=== PATIENT | male | born 1955 | race Caucasian/White ===

== ENCOUNTER 2016-09-04 18:10 | Emergency (ER) | payer OTHER ==
[~2016-09-04] VITALS: Ht 182.9 cm; Wt 75.0 kg
[~2016-09-04 18:10] MED LIST: ACET325 PO; CALCCHW25 PO; LACT20SO4 PO; LEVE500T10 PO; RIFA550 PO; SERT100 PO; TRAZ100 PO
--- NOTE | 2016-09-04 18:21 | PD ---
HPI Chief Complaint: seizure Time Seen by Provider: 18:16 Travel History International Travel<30 days: No Contact w/Intl Traveler<30days: No Traveled to known affect area: No History of Present Illness HPI 61-year-old male was brought in by EMS for seizure. Patient has history of seizure on Keppra. Patient resides at local group home. [facility] staff observed patient having jerking motions this afternoon. Patient was brought by EMS to the ED for evaluation. Patient's lethargic. Patient's noncommunicable now. PFSH Past Medical History Arthritis: No Asthma: No Autoimmune Disease: No Blood Disorders: No Bipolar Disorder: Yes Anxiety: Yes Depression: Yes Heart Rhythm Problems: Yes (HX OF PAROXYSMAL VENTRICULAR TACHYCARDIA) Cancer: No Cardiovascular Problems: Yes High Cholesterol: Yes Chemotherapy: No Chest Pain: Yes Congestive Heart Failure: No Cirrhosis: Yes COPD: Yes Cerebrovascular Accident: No Dementia: Yes Diabetes: No Diminished Hearing: Yes (BILATERAL) Endocrine: No Gastrointestinal Disorders: Yes (CHRONIC PANCREATITIS, CIRRHOSIS) GERD: No Glaucoma: No Gout: Yes Genitourinary: No Headaches: No Hepatitis: Yes (HEP C AND B) Hiatal Hernia: No Hypertension: Yes Immune Disorder: No Insomnia: Yes Kidney Stones: No Musculoskeletal: Yes (per hx..CHRONIC LOW BACK PAIN) Neurologic: Yes Psychiatric: Yes (previous visit at [facility] [place]) Reproductive: No Respiratory: Yes Immunizations Current: Yes Migraines: No Myocardial Infarction: No Pancreatitis: Yes Radiation Therapy: No Renal Failure: No Seizures: Yes Sickle Cell Disease: No Sleep Apnea: No Thyroid Disease: No Ulcer: No Past Surgical History Abdominal Surgery: Yes AICD: No Appendectomy: Yes Arteriovenous Shunt: No Cardiac Surgery: No Cholecystectomy: Yes (DENIES) Ear Surgery: No Endocrine Surgery: No Eye Surgery: No Genitourinary Surgery: No Gynecologic Surgery: No Insulin Pump: No Joint Replacement: No Neurologic Surgery: No Oral Surgery: No Pacemaker: No Thoracic Surgery: No Tonsillectomy: Yes Other Surgery: Yes (RIGHT LOWER ABDOMEN) Social History Alcohol Use: No Tobacco Use: No Substance Use: No Allergies-Medications (Allergen,Severity, Reaction): Coded Allergies: No Known Allergies (Verified , 09/04/16) Per patient. Reported Meds & Prescriptions Reported Meds & Active Scripts Active Reported Duoneb (Ipratropium-Albuterol Neb) 0.5-2.5 Mg/3 Ml Neb 1 Nebule INH QID PRN Divalproex ER (Divalproex Sodium) 250 Mg Bassam 500 Mg PO HS Trazodone (Trazodone HCl) 100 Mg Tab 250 Mg PO HS Seroquel (Quetiapine Fumarate) 50 Mg Tab 75 Mg PO BID Keppra (Levetiracetam) 750 Mg Tab 750 Mg PO BID Calcium + D3 (Calcium Carbonate-Cholecalciferol) 600-200 Mg-Unit Tab 1 Tab PO BID Vitamin B-1 (Thiamine Mononitrate) 100 Mg Tab Zoloft (Sertraline HCl) 100 Mg Tab 200 Mg PO DAILY Ventolin Hfa 18 GM Inh (Albuterol Sulfate) 90 Mcg/Act Aer 2 Puff INH Q4-6H PRN Nasal Mist Inh (Sodium Chloride) 0.9 % Aer 1 [place] EACH NARE Q4H PRN Mobic (Meloxicam) 15 Mg Tab 15 Mg PO DAILY Hydroxyzine HCl 25 Mg Tab 25 Mg PO QID PRN Adams Cough Drops (Throat Lozenges) 1 Len[place] Leni 1 Lozenge PO Q2H PRN Tylenol (Acetaminophen) 325 Mg Cap 325 Mg PO BID PRN Review of Systems ROS Limitations: Altered Mental Status Physical Exam Narrative GENERAL: Well-nourished, well-developed patient. SKIN: Warm and dry. HEAD: Normocephalic. EYES: No scleral icterus. No injection or drainage. NECK: Supple, trachea midline. No JVD or lymphadenopathy. CARDIOVASCULAR: Regular rate and rhythm without murmurs, gallops, or rubs. RESPIRATORY: Breath sounds equal bilaterally. No accessory muscle use. GASTROINTESTINAL: Abdomen soft, non-tender, nondistended. MUSCULOSKELETAL: No cyanosis, or edema. BACK: Nontender without obvious deformity. No CVA tenderness. Neurologic exam: Patient is lethargic, opening eyes occasionally looking around. Patient does not follow commands. Deep tendon reflexes 2+ and equal. Negative Babinski. Data Data Last Documented VS Vital Signs Date Time Temp Pulse Resp B/P Pulse Ox O2 Delivery O2 Flow Rate FiO2 09/04/16 19:31 75 18 143/92 93 Room Air 09/04/16 18:26 99.9 Orders Electrocardiogram (09/04/16 18:16) Complete Blood Count With Diff (09/04/16 18:16) Comprehensive Metabolic Panel (09/04/16 18:16) Creatine Kinase (Cpk) (09/04/16 18:16) Troponin I (09/04/16 18:16) Prothrombin Time / Inr (Pt) (09/04/16 18:16) Act Partial Throm Time (Ptt) (09/04/16 18:16) Blood Culture (09/04/16 18:16) Urinalysis - C+S If Indicated (09/04/16 18:16) Alcohol (Ethanol) (09/04/16 18:16) Drug Screen, Random Urine (09/04/16 18:16) Salicylates (Aspirin) (09/04/16 18:16) Tylenol (Acetaminophen) (09/04/16 18:16) Thyroid Stimulating Hormone (09/04/16 18:16) Chest, Single Ap (09/04/16 18:16) Ct Brain W/O Iv Contrast(Rout) (09/04/16 18:16) Iv Access Insert/Monitor (09/04/16 18:16) Ecg Monitoring (09/04/16 18:16) Oximetry (09/04/16 18:16) Sodium Chlor 0.9% 1000 Ml Inj (Ns 1000 M (09/04/16 18:45) Valproic Acid (Depakene) (09/04/16 20:51) Divalproex Er (Depakote Er) (09/04/16 22:00) Labs Laboratory Tests Test 09/04/16 09/04/16 18:42 19:30 White Blood Count 8.2 TH/MM3 Red Blood Count 5.00 MIL/MM3 Hemoglobin 14.5 GM/DL Hematocrit 42.0 % Mean Corpuscular Volume 84.0 FL Mean Corpuscular Hemoglobin 29.1 PG Mean Corpuscular Hemoglobin 34.7 % Concent Red Cell Distribution Width 13.1 % Platelet Count 185 TH/MM3 Mean Platelet Volume 8.5 FL Neutrophils (%) (Auto) 81.3 % Lymphocytes (%) (Auto) 14.7 % Monocytes (%) (Auto) 3.9 % Eosinophils (%) (Auto) 0.0 % Basophils (%) (Auto) 0.1 % Neutrophils # (Auto) 6.7 TH/MM3 Lymphocytes # (Auto) 1.2 TH/MM3 Monocytes # (Auto) 0.3 TH/MM3 Eosinophils # (Auto) 0.0 TH/MM3 Basophils # (Auto) 0.0 TH/MM3 CBC Comment DIFF FINAL Differential Comment Prothrombin Time 11.7 SEC Prothromb Time International 1.1 RATIO Ratio Activated Partial 24.0 SEC Thromboplast Time Sodium Level 139 MEQ/L Potassium Level 3.6 MEQ/L Chloride Level 103 MEQ/L Carbon Dioxide Level 24.0 MEQ/L Anion Gap 12 MEQ/L Blood Urea Nitrogen 10 MG/DL Creatinine 1.14 MG/DL Estimat Glomerular Filtration 65 ML/MIN Rate Random Glucose 115 MG/DL Calcium Level 9.1 MG/DL Total Bilirubin 0.4 MG/DL Aspartate Amino Transf 25 U/L (AST/SGOT) Alanine Aminotransferase 21 U/L (ALT/SGPT) Alkaline Phosphatase 75 U/L Total Creatine Kinase 100 U/L Troponin I LESS THAN 0.02 NG/ML Total Protein 9.5 GM/DL Albumin 3.9 GM/DL Thyroid Stimulating Hormone 3.340 uIU/ML 3rd Gen Salicylates Level 3.6 MG/DL Acetaminophen Level LESS THAN 2.0 MCG/ML Valproic Acid (Depakene) Level 18 MCG/ML Ethyl Alcohol Level LESS THAN 3 MG/DL Urine Color YELLOW Urine Turbidity CLEAR Urine pH 8.0 Urine Specific [place] 1.015 Urine Protein TRACE mg/dL Urine Glucose (UA) NEG mg/dL Urine Ketones 10 mg/dL Urine Occult Blood NEG Urine Nitrite NEG Urine Bilirubin NEG Urine Urobilinogen LESS THAN 2.0 MG/DL Urine Leukocyte Esterase NEG Urine WBC 1 /hpf Urine Squamous Epithelial 1 /hpf Cells Urine Hyaline Casts 1 /lpf Microscopic Urinalysis Comment CULT NOT INDICATED Urine Opiates Screen NEG Urine Barbiturates Screen NEG Urine Amphetamines Screen NEG Urine Benzodiazepines Screen NEG Urine Cocaine Screen NEG Urine Cannabinoids Screen NEG [facility] Medical Decision Making Medical Screen Exam Complete: Yes Emergency Medical Condition: Yes Interpretation(s) Last Impressions Head CT 09/04/161815 Signed Impressions: Service Date/Time: Sunday, September 04, 2016 18:51 - CONCLUSION: 1. No acute intracranial abnormality. Cortical volume loss. Sam Hopson MD Chest X-Ray 09/04/161815 Signed Impressions: Service Date/Time: Sunday, September 04, 2016 18:48 - CONCLUSION: 1. Minimal basilar atelectasis. Sam Hopson MD 8:49 PM. CBC within normal limit. CMP within normal limit. Cardiac enzymes are normal. Salicylate and acetaminophen levels normal. Alcohol negative. 21:49 PM. Valproic acid level 18 Differential Diagnosis Differential diagnosis including breakthrough seizure, TIA, CVA, electrolyte abnormality, dehydration, sepsis. Narrative Course 61-year-old male with possible seizure. History of seizure on Keppra and divalproex acid. Divalproex acid is low. Divalproex acid 500 mg by mouth given now. Diagnosis Primary Impression: Seizure disorder Patient Instructions: General Instructions Additional Instructions: Increased divalproex ER to 750 mg daily. Check level in 1 week. Follow-up with personal physician and neurologist. Return if worse. Med/Other Pt SpecificInfo: Existing Med Changed Disposition: 03 DISCHARGE TO SNF Condition: Stable Bill Tanner MD Sep 04, 2016 18:21
[2016-09-04 18:26] VITALS: BP_SYST 126; PULSE 86; RESP 17; TEMP 99.9
[2016-09-04 19:31] VITALS: BP 143/92; PULSE 75; RESP 18; O2SAT 93
[2016-09-04 19:44] LABS: AUTOMATED NEUTROPHIL # 6.7 TH/MM3 (1.8-7.7); BASOPHIL % 0.1 % (0.0-2.0); HEMO FLAGS DIFF FINAL; LYMPH % 14.7 % (9.0-44.0); LYMPHOCYTE # 1.2 TH/MM3 (1.0-4.8); MEAN CORPUSCULAR HEMOGLOBIN 29.1 PG (27.0-34.0); MEAN CORPUSCULAR HGB CONC 34.7 % (32.0-36.0); MONO % 3.9 % (0.0-8.0); NEUT % 81.3 % (16.0-70.0); PLATELET COUNT 185 TH/MM3 (150-450); RED CELL DISTRIBUTION WIDTH 13.1 % (11.6-17.2); WHITE BLOOD COUNT 8.2 TH/MM3 (4.0-11.0)
[2016-09-04 19:47] LABS: INTERNATIONAL NORMALIZED RATIO 1.1 RATIO; PROTHROMBIN TIME - PATIENT 11.7 SEC (9.8-11.6)
[2016-09-04] MEDS: SODIUM CHLOR 0.9% 1000 ML INJ 1,000 ML IV SCH (19:50)
[2016-09-04 19:53] LABS: ANION GAP 12 MEQ/L (5-15); AST (GOT) 25 U/L (15-37); BLOOD UREA NITROGEN 10 MG/DL (7-18); CHLORIDE 103 MEQ/L (98-107); GLOMERULAR FILTRATION RATE 65 ML/MIN (>89); POTASSIUM 3.6 MEQ/L (3.5-5.1); SODIUM (NA) 139 MEQ/L (136-145)
--- NOTE | 2016-09-04 19:54 | RADRPT ---
EXAM DATE/TIME: 09/04/2016 18:51 [facility] COMPARISON: No previous studies available for comparison. INDICATIONS : Altered mental status; confusion. RADIATION DOSE: 56.35 CTDIvol (mGy) MEDICAL HISTORY : Dementia. Seizures. Hypertension. SURGICAL HISTORY : None. ENCOUNTER: Initial ACUITY: 1 day PAIN SCALE: Non-responsive LOCATION: cranial TECHNIQUE: Multiple contiguous axial images were obtained of the head. Using automated exposure control and adj ustment of the mA and/or kV according to patient size, radiation dose was kept as low as reasonably a chievable to obtain optimal diagnostic quality images. FINDINGS: There is cortical volume loss. No mass, hemorrhage or shift. No hydrocephalus. No significant change compared with October 2015. No recent infarct identified. CONCLUSION: 1. No acute intracranial abnormality. Cortical volume loss. Sam Hopson MD on September 04, 2016 at 19:47 Board Certified Radiologist. This report was verified electronically.
[2016-09-04 20:04] LABS: ALKALINE PHOSPHATASE 75 U/L (45-117); ALT (GPT) 21 U/L (12-78); TOTAL BILIRUBIN ADULT 0.4 MG/DL (0.2-1.0)
[2016-09-04 20:15] LABS: ACETAMINOPHEN LESS THAN 2.0 MCG/ML (10.0-30.0); CREATINE KINASE 100 U/L (39-308)
--- NOTE | 2016-09-04 20:33 | RADRPT ---
EXAM DATE/TIME: 09/04/2016 18:48 [facility] COMPARISON: No previous studies available for comparison. INDICATIONS : Shortness of breath. MEDICAL HISTORY : Unobtainable. SURGICAL HISTORY : Unobtainable. ENCOUNTER: Initial ACUITY: 1 day PAIN SCORE: Non-responsive. LOCATION: Bilateral chest FINDINGS: A single view of the chest demonstrates minimal basilar atelectasis. No effusion. No pneumothorax. He art size normal. CONCLUSION: 1. Minimal basilar atelectasis. Sam Hopson MD on September 04, 2016 at 20:27 Board Certified Radiologist. This report was verified electronically.
[2016-09-04] MEDS ORDERED: CALC600T10 PO (20:35)
[2016-09-04] MEDS ORDERED: VITA100T13 (20:35)
[2016-09-04] MEDS ORDERED: HYDR-3133 PO (20:35)
[2016-09-04] MEDS ORDERED: CHERLOZ PO (20:35)
[2016-09-04] MEDS ORDERED: SERO50TA PO (20:35)
[2016-09-04] MEDS ORDERED: KEPP750T PO (20:35)
[2016-09-04] MEDS ORDERED: MOBI15TA PO (20:35)
[2016-09-04] MEDS ORDERED: SODI0.9A EACH NARE (20:35)
[2016-09-04] MEDS ORDERED: TRAZ100T4 PO (20:35)
[2016-09-04] MEDS ORDERED: DIVA250T3 PO (20:35)
[2016-09-04] MEDS ORDERED: VENTAER INH (20:35)
[2016-09-04] MEDS ORDERED: IPRASOL INH (20:35)
[2016-09-04] MEDS ORDERED: ACET1CAP18 PO (20:35)
[2016-09-04] MEDS ORDERED: ZOLO100T PO (20:35)
[2016-09-04 20:51] LABS: BLOOD, URINE NEG (NEG); COMMENT (UR) CULT NOT INDICATED; CULTURE IF INDICATED CULT NOT INDICATED; GLUCOSE,URINE NEG (NEG); HYALINE CAST, URINE 1 /lpf (RARE); KETONE, URINE 10 mg/dL (NEG); NITRITE,URINE NEG (NEG); SQUAMOUS EPITHELIAL CELL URINE 1 /hpf (0-5); URINE COLOR YELLOW (YELLW/STRAW)
[2016-09-04 21:00] VITALS: BP 121/70; PULSE 80; RESP 18; O2SAT 94
[2016-09-04 21:21] LABS: AMPHETAMINE, URINE NEG (NEG); BARBITURATES, URINE NEG (NEG); COCAINE, URINE NEG (NEG)
[2016-09-04] MEDS ORDERED: DIVALPROEX SODIUM E.R. 500 MG TAB PO ONE (22:00)
[2016-09-04 23:00] VITALS: BP 111/68; PULSE 78; RESP 18; O2SAT 93
--- NOTE | 2016-09-05 00:35 | PD ---
Physical Exam Time Seen by Provider: 00:20 Data Data Last Documented VS Vital Signs Date Time Temp Pulse Resp B/P Pulse Ox O2 Delivery O2 Flow Rate FiO2 09/05/16 01:00 79 21 134/73 93 Room Air 09/04/16 18:26 99.9 Orders Electrocardiogram (09/04/16 18:16) Complete Blood Count With Diff (09/04/16 18:16) Comprehensive Metabolic Panel (09/04/16 18:16) Creatine Kinase (Cpk) (09/04/16 18:16) Troponin I (09/04/16 18:16) Prothrombin Time / Inr (Pt) (09/04/16 18:16) Act Partial Throm Time (Ptt) (09/04/16 18:16) Blood Culture (09/04/16 18:16) Urinalysis - C+S If Indicated (09/04/16 18:16) Alcohol (Ethanol) (09/04/16 18:16) Drug Screen, Random Urine (09/04/16 18:16) Salicylates (Aspirin) (09/04/16 18:16) Tylenol (Acetaminophen) (09/04/16 18:16) Thyroid Stimulating Hormone (09/04/16 18:16) Chest, Single Ap (09/04/16 18:16) Ct Brain W/O Iv Contrast(Rout) (09/04/16 18:16) Iv Access Insert/Monitor (09/04/16 18:16) Ecg Monitoring (09/04/16 18:16) Oximetry (09/04/16 18:16) Sodium Chlor 0.9% 1000 Ml Inj (Ns 1000 M (09/04/16 18:45) Valproic Acid (Depakene) (09/04/16 20:51) Divalproex Er (Depakote Er) (09/04/16 22:00) Ct Brain W/O Iv Contrast(Rout) (09/05/16 ) Ct Facial Bones W/O Iv Cont (09/05/16 ) Ondansetron Inj (Zofran Inj) (09/05/16 04:00) Acetaminophen (Tylenol) (09/05/16 04:00) Restraints Non-Violent BROOKS.Q3H (09/05/16 03:58) Labs Laboratory Tests Test 09/04/16 09/04/16 18:42 19:30 White Blood Count 8.2 TH/MM3 Red Blood Count 5.00 MIL/MM3 Hemoglobin 14.5 GM/DL Hematocrit 42.0 % Mean Corpuscular Volume 84.0 FL Mean Corpuscular Hemoglobin 29.1 PG Mean Corpuscular Hemoglobin 34.7 % Concent Red Cell Distribution Width 13.1 % Platelet Count 185 TH/MM3 Mean Platelet Volume 8.5 FL Neutrophils (%) (Auto) 81.3 % Lymphocytes (%) (Auto) 14.7 % Monocytes (%) (Auto) 3.9 % Eosinophils (%) (Auto) 0.0 % Basophils (%) (Auto) 0.1 % Neutrophils # (Auto) 6.7 TH/MM3 Lymphocytes # (Auto) 1.2 TH/MM3 Monocytes # (Auto) 0.3 TH/MM3 Eosinophils # (Auto) 0.0 TH/MM3 Basophils # (Auto) 0.0 TH/MM3 CBC Comment DIFF FINAL Differential Comment Prothrombin Time 11.7 SEC Prothromb Time International 1.1 RATIO Ratio Activated Partial 24.0 SEC Thromboplast Time Sodium Level 139 MEQ/L Potassium Level 3.6 MEQ/L Chloride Level 103 MEQ/L Carbon Dioxide Level 24.0 MEQ/L Anion Gap 12 MEQ/L Blood Urea Nitrogen 10 MG/DL Creatinine 1.14 MG/DL Estimat Glomerular Filtration 65 ML/MIN Rate Random Glucose 115 MG/DL Calcium Level 9.1 MG/DL Total Bilirubin 0.4 MG/DL Aspartate Amino Transf 25 U/L (AST/SGOT) Alanine Aminotransferase 21 U/L (ALT/SGPT) Alkaline Phosphatase 75 U/L Total Creatine Kinase 100 U/L Troponin I LESS THAN 0.02 NG/ML Total Protein 9.5 GM/DL Albumin 3.9 GM/DL Thyroid Stimulating Hormone 3.340 uIU/ML 3rd Gen Salicylates Level 3.6 MG/DL Acetaminophen Level LESS THAN 2.0 MCG/ML Valproic Acid (Depakene) Level 18 MCG/ML Ethyl Alcohol Level LESS THAN 3 MG/DL Urine Color YELLOW Urine Turbidity CLEAR Urine pH 8.0 Urine Specific [place] 1.015 Urine Protein TRACE mg/dL Urine Glucose (UA) NEG mg/dL Urine Ketones 10 mg/dL Urine Occult Blood NEG Urine Nitrite NEG Urine Bilirubin NEG Urine Urobilinogen LESS THAN 2.0 MG/DL Urine Leukocyte Esterase NEG Urine WBC 1 /hpf Urine Squamous Epithelial 1 /hpf Cells Urine Hyaline Casts 1 /lpf Microscopic Urinalysis Comment CULT NOT INDICATED Urine Opiates Screen NEG Urine Barbiturates Screen NEG Urine Amphetamines Screen NEG Urine Benzodiazepines Screen NEG Urine Cocaine Screen NEG Urine Cannabinoids Screen NEG MDM Medical Record Reviewed: Yes Supervised Visit with JAMES: No Narrative Course I was called by the nurse to evaluate this patient. This patient was previously seen by Dr. Tanner, please see his full history of present illness. Essentially this patient has a history of seizure disorder and he was seen for evaluation of a seizure. He was ready to be discharged, waiting on a ride, when he climbed out of his bed and fell and hit his head against the ground. On examination now he has a 1 cm laceration lateral to the left eyebrow. CT of the brain has been ordered and the laceration will be repaired with Dermabond. CT of the brain revealed questionable left sided maxillary facial fracture. CT of the facial bones sent with a left sided maxillary facial fracture. On examination the patient has no bruising or soft tissue swelling overlying the left maxillary sinus and he has no focal tenderness to palpation. The plan at this point I would be have the patient follow up with a maxillofacial surgeon as an outpatient. The patient has multiple chronic medical problems that would certainly make any sort of surgical intervention unlikely. He is stable for discharge. Procedures Procedure Narrative LACERATION LOCATION: Left forehead LENGTH: 1 cm NUMBER OF STITCHES/MARGAUX: Dermabond REPAIR: The wound was copiously irrigated and explored without evidence of foreign body, tendon injury or neurovascular injury. The wound was closed using Dermabond. This was a single layer repair. A sterile dressing was applied. The patient was advised to keep the dressing clean and dry. Patient tolerated the procedure well. Diagnosis Primary Impression: Seizure disorder Additional Impressions: Facial laceration Qualified Code: S01.81XA - Facial laceration, initial encounter Facial fracture Qualified Code: S02.40DA - Closed fracture of left side of maxilla, initial encounter Referrals: Jeremie Berrios DDS Patient Instructions: General Instructions Departure Forms: Tests/Procedures Additional Instruction: Increased divalproex ER to 750 mg daily. Check level in 1 week. Follow-up with personal physician and neurologist. Return if worse. Follow-up of a maxillofacial surgeon such as Dr. Berrios in the next 5-7 days. Do not put any creams or lotions on the laceration on the face. The glue will flake off on its own the next few weeks. Disposition: 03 DISCHARGE TO SNF Condition: Stable Cong Del Angel Sep 05, 2016 00:34
[2016-09-05 01:00] VITALS: BP 134/73; PULSE 79; RESP 21; O2SAT 93
--- NOTE | 2016-09-05 02:12 | RADRPT ---
EXAM DATE/TIME: 09/05/2016 01:41 [facility] COMPARISON: CT BRAIN W/O CONTRAST, September 04, 2016, 18:51. INDICATIONS : Altered mental status. RADIATION DOSE: 56.35 CTDIvol (mGy) MEDICAL HISTORY : Non-responsive. SURGICAL HISTORY : Non-responsive. ENCOUNTER: Initial ACUITY: 1 day PAIN SCALE: 0/10 LOCATION: cranial TECHNIQUE: Multiple contiguous axial images were obtained of the head. Using automated exposure control and adj ustment of the mA and/or kV according to patient size, radiation dose was kept as low as reasonably a chievable to obtain optimal diagnostic quality images. FINDINGS: The ventricles, sulci, and basal cisterns are prominent characteristic of moderate severity central c ortical atrophy. The appearance is unchanged from yesterday's CT scan. No evidence of midline shift , mass lesion, hemorrhage or acute infarction. No extra-axial fluid collections are seen. POSTERIOR FOSSA: The cerebellum and brainstem are intact. The 4th ventricle is midline. The cerebellopontine angle i s unremarkable. EXTRACRANIAL: The visualized portion of the orbits is intact. There is a moderate sized air-fluid level left maxil aleksandra sinus which is a new finding when compared to yesterday's exam. There is also a focal indentati on in the anterior left maxillary sinus wall suggesting a displaced fracture. SKULL: The calvaria is intact. No evidence of skull fracture. CONCLUSION: 1. Interval development of air-fluid level in the left maxillary sinus with focal indentation anterio r maxillary sinus wall characteristic of a maxillary fracture. 2. No acute findings in the brain. Moderate severity atrophy. Fermin Duggan MD on September 05, 2016 at 2:08 Board Certified Radiologist. This report was verified electronically.
[2016-09-05] MEDS: SODIUM CHLOR 0.9% 1000 ML INJ 1,000 ML IV SCH (02:34)
[2016-09-05] MEDS ORDERED: ONDANSETRON HCL 4 MG/2 ML VIAL IV PUSH ONE (04:00)
[2016-09-05] MEDS ORDERED: ACETAMINOPHEN 325 MG TAB PO ONE (04:00)
--- NOTE | 2016-09-05 04:04 | RADRPT ---
EXAM DATE/TIME: 09/05/2016 03:13 [facility] COMPARISON: No previous studies available for comparison. INDICATIONS : Trauma; fall. RADIATION DOSE: 36.57 CTDIvol (mGy) MEDICAL HISTORY : Non-responsive. SURGICAL HISTORY : Non-responsive. ENCOUNTER: Initial ACUITY: 1 day PAIN SCORE: Non-responsive LOCATION: facial TECHNIQUE: Volumetric scanning of the facial bones was performed. Using automated exposure control and adjustme nt of the mA and/or kV according to patient size, radiation dose was kept as low as reasonably achiev able to obtain optimal diagnostic quality images. FINDINGS: There is an abnormal appearance to the anterior left maxillary sinus wall with focal indentation of t he anterior wall and a fracture lucency inferiorly. On the coronal reconstruction images, the anteri or inferior maxillary sinus wall is displaced superior medial into the maxillary sinus. There is a s mall air-fluid level in left maxillary sinus. There is also a small air-fluid level in the left sphe noid sinus without evidence of fracture. The infraorbital rim is intact. The fracture line, however appears to involve the inferior aspect of the infraorbital foramen. Nasal bones, zygomatic arches, right maxilla, pterygoid plates and mandib le are intact. CONCLUSION: Inferolateral left maxillary sinus fracture with internal and displaced fragment and air-fluid level. Fermin Duggan MD on September 05, 2016 at 3:59 Board Certified Radiologist. This report was verified electronically.
[2016-09-05 06:12] VITALS: RESP 18
--- NOTE | 2016-09-07 22:50 | EKG ---
Date Performed: 09/04/2016 Time Performed: 19:22:41 PTAGE: 61 years EKG: SINUS TACHYCARDIA BORDERLINE RIGHT AXIS DEVIATION ABNORMAL RHYTHM ECG PREVIOUS TRACING : 03/22/2016 22.17 Compared to prior tracing no significant change DOCTOR: Neo Schafer Interpretating Date/Time 09/07/2016 22:49:05
== END 2016-09-05 07:00 ==
LOC: NEPA 18:10
DX: G40.909 Epilepsy, unspecified, not intractable, without status epilepticus (principal); R41.82 Altered mental status, unspecified; F31.9 Bipolar disorder, unspecified; E78.00 Pure hypercholesterolemia, unspecified; J44.9 Chronic obstructive pulmonary disease, unspecified; I10 Essential (primary) hypertension; R94.31 Abnormal electrocardiogram [ECG] [EKG]
CPT/HCPCS: 12011; 70450; 70486; 71010; 80053; 80164; 80307; 81001; 82550; 84443; 84484; 85025; 85610; 85730; 87040; 93005; 96361; 96374; 99285; J2405; J7030; 80320; 80329; G0480; G0481

== ENCOUNTER 2016-11-13 15:46 | Inpatient (IN) | payer OTHER ==
[~2016-11-13] VITALS: Ht 177.8 cm; Wt 81.0 kg
[2016-11-13] VITALS (19 sets, daily range): BP systolic 90–150; BP diastolic 60–105; PULSE 73–120; RESP 14–27; TEMP 97.8–98.3; O2SAT 95–100
[~2016-11-13 15:46] MED LIST changes: +ACET1CAP18 PO; -ACET325 PO; +CALC600T10 PO; -CALCCHW25 PO; +CHERLOZ PO; +DIVA250T3 PO; +HYDR-3133 PO; +IPRASOL INH; +KEPP750T PO; -LACT20SO4 PO; -LEVE500T10 PO; +MOBI15TA PO; -RIFA550 PO; +SERO50TA PO; -SERT100 PO; +SODI0.9A EACH NARE; -TRAZ100 PO; +TRAZ100T4 PO; +VENTAER INH; +VITA100T13; +ZOLO100T PO
[2016-11-13] MEDS ORDERED: LORazepam 2 MG/ML VIAL ONE ×2 (16:51→17:04)
[2016-11-13] MEDS ORDERED: SODIUM CHLOR 0.9% 1000 ML INJ 1,000 ML IV SCH (16:59)
--- NOTE | 2016-11-13 16:59 | PD ---
HPI Chief Complaint: Seizure Time Seen by Provider: 16:58 Travel History International Travel<30 days: No Contact w/Intl Traveler<30days: No Traveled to known affect area: No History of Present Illness HPI 61-year-old male came to the emergency room brought by EMS with history of seizures and altered mental status. Patient continued to have intermittent seizures on route and in between the seizure his GCS was 11 as per EMS. Patient was not in a condition to give any meaningful history. EMS did not seem to have much history either. He was brought from the [place] waiting [place]. They were told that his shelter has been trying to obtain blood on him for past 2 days and have been unable to do it because of him being an extremely hard stick. He seizures looked tonic-clonic generalized. Patient was tachycardic upon arrival. There is a history of chronic alcoholism and dementia as well. There was list of his medications brought along with him which had Depakote and Keppra as the antiseizure medication. There was also a paperwork stating he is DNR. [facility] Past Medical History Narrative Medical List of his past medical, surgical, social and family history was reviewed from the nursing note. Arthritis: No Asthma: No Autoimmune Disease: No Blood Disorders: No Bipolar Disorder: Yes Anxiety: Yes Depression: Yes Heart Rhythm Problems: Yes (HX OF PAROXYSMAL VENTRICULAR TACHYCARDIA) Cancer: No Cardiovascular Problems: Yes High Cholesterol: Yes Chemotherapy: No Chest Pain: Yes Congestive Heart Failure: No Cirrhosis: Yes COPD: Yes Cerebrovascular Accident: No Dementia: Yes Diabetes: No Diminished Hearing: Yes (BILATERAL) Endocrine: No Gastrointestinal Disorders: Yes (CHRONIC PANCREATITIS, CIRRHOSIS) GERD: No Glaucoma: No Gout: Yes Genitourinary: No Headaches: No Hepatitis: Yes (HEP C AND B) Hiatal Hernia: No Hypertension: Yes Immune Disorder: No Insomnia: Yes Kidney Stones: No Musculoskeletal: Yes (per hx..CHRONIC LOW BACK PAIN) Neurologic: Yes Psychiatric: Yes Reproductive: No Respiratory: Yes Immunizations Current: Yes Migraines: No Myocardial Infarction: No Pancreatitis: Yes Radiation Therapy: No Renal Failure: No Seizures: Yes Sickle Cell Disease: No Sleep Apnea: No Thyroid Disease: No Ulcer: No Past Surgical History Abdominal Surgery: Yes AICD: No Appendectomy: Yes Arteriovenous Shunt: No Cardiac Surgery: No Cholecystectomy: Yes (DENIES) Ear Surgery: No Endocrine Surgery: No Eye Surgery: No Genitourinary Surgery: No Gynecologic Surgery: No Insulin Pump: No Joint Replacement: No Neurologic Surgery: No Oral Surgery: No Pacemaker: No Thoracic Surgery: No Tonsillectomy: Yes Other Surgery: Yes (RIGHT LOWER ABDOMEN) Social History Alcohol Use: No Tobacco Use: No Substance Use: No Allergies-Medications (Allergen,Severity, Reaction): Coded Allergies: No Known Allergies (Verified , 11/13/16) Per patient. Comments No known drug allergies. Reported Meds & Prescriptions Reported Meds & Active Scripts Active Reported Methadone (Methadone HCl) 5 Mg Tab 5 Mg PO 1800 Keppra (Levetiracetam) 750 Mg Tab 750 Mg PO BID Depakote ER (Divalproex Sodium) 500 Mg Bassam 500 Mg PO DAILY Depakote ER (Divalproex Sodium) 250 Mg Bassam 250 Mg PO DAILY Duoneb (Ipratropium-Albuterol Neb) 0.5-2.5 Mg/3 Ml Neb 1 Nebule INH QID PRN Trazodone (Trazodone HCl) 100 Mg Tab 250 Mg PO HS Calcium + D3 (Calcium Carbonate-Cholecalciferol) 600-200 Mg-Unit Tab 1 Tab PO BID Vitamin B-1 (Thiamine Mononitrate) 100 Mg Tab Zoloft (Sertraline HCl) 100 Mg Tab 200 Mg PO DAILY Ventolin Hfa 18 GM Inh (Albuterol Sulfate) 90 Mcg/Act Aer 2 Puff INH Q4-6H PRN Nasal Mist Inh (Sodium Chloride) 0.9 % Aer 1 [place] EACH NARE Q4H PRN Mobic (Meloxicam) 15 Mg Tab 15 Mg PO DAILY Hydroxyzine HCl 25 Mg Tab 25 Mg PO QID PRN Adams Cough Drops (Throat Lozenges) 1 Leni Leni 1 Lozenge PO Q2H PRN Tylenol (Acetaminophen) 325 Mg Cap 325 Mg PO BID PRN Narrative Medication List of his home medications reviewed from the nursing note. Review of Systems Except as stated in HPI: all other systems reviewed are Neg Physical Exam Narrative GENERAL: Altered mental status, nonverbal, disheveled SKIN: Focused skin assessment warm/dry. Disheveled HEAD: Atraumatic. Normocephalic. EYES: Pupils equal and round. No scleral icterus. No injection or drainage. ENT: No nasal bleeding or discharge. Mucous membranes pink and moist. NECK: Trachea midline. No JVD. CARDIOVASCULAR: Regular rate and rhythm. No murmur appreciated. RESPIRATORY: No accessory muscle use. Clear to auscultation. Breath sounds equal bilaterally. GASTROINTESTINAL: Abdomen soft, non-tender, nondistended. Hepatic and splenic margins not palpable. MUSCULOSKELETAL: No obvious deformities. No clubbing. No cyanosis. No edema. NEUROLOGICAL: Altered mental status, GCS of 11 PSYCHIATRIC: Appropriate mood and affect; insight and judgment normal. Data Data Last Documented VS Vital Signs Date Time Temp Pulse Resp B/P Pulse Ox O2 Delivery O2 Flow Rate FiO2 11/13/16 18:40 114 17 133/77 100 Ventilator 11/13/16 17:45 15 11/13/16 16:48 98.3 Orders Lorazepam Inj (Ativan Inj) (11/13/16 16:51) Electrocardiogram (11/13/16 16:59) Ammonia (11/13/16 16:59) Complete Blood Count With Diff (11/13/16 16:59) Comprehensive Metabolic Panel (11/13/16 16:59) Creatine Kinase (Cpk) (11/13/16 16:59) Prothrombin Time / Inr (Pt) (11/13/16 16:59) Troponin I (11/13/16 16:59) Thyroid Stimulating Hormone (11/13/16 16:59) Lactic Acid Sepsis Protocol (11/13/16 16:59) Urinalysis - C+S If Indicated (11/13/16 16:59) Blood Culture (11/13/16 16:59) Ct Brain W/O Iv Contrast(Rout) (11/13/16 16:59) Blood Glucose (11/13/16 16:59) Ecg Monitoring (11/13/16 16:59) Iv Access Insert/Monitor (11/13/16 16:59) Oximetry (11/13/16 16:59) Sodium Chloride 0.9% Flush (Ns Flush) (11/13/16 17:00) Sodium Chlor 0.9% 1000 Ml Inj (Ns 1000 M (11/13/16 16:59) Drug Screen, Random Urine (11/13/16 16:59) Alcohol (Ethanol) (11/13/16 16:59) Salicylates (Aspirin) (11/13/16 16:59) Tylenol (Acetaminophen) (11/13/16 16:59) Magnesium (Mg) (11/13/16 16:59) Lorazepam Inj (Ativan Inj) (11/13/16 17:04) Lorazepam Inj (Ativan Inj) (11/13/16 17:30) Lorazepam Inj (Ativan Inj) (11/13/16 17:30) Levetiracetam 1000 Mg Inj (Keppra 1000 M (11/13/16 18:15) Levothyroxine Inj (Synthroid Inj) (11/13/16 18:15) Hydrocortisone Inj (Solucortef Inj) (11/13/16 18:15) Valproic Acid (Depakene) (11/13/16 18:06) Succinylcholine Inj (Quelicin Inj) (11/13/16 18:30) Etomidate Inj (Amidate Inj) (11/13/16 18:31) Succinylcholine Inj (Quelicin Inj) (11/13/16 18:45) Etomidate Inj (Amidate Inj) (11/13/16 18:45) Arterial Blood Gas (Abg) (11/13/16 ) Propofol 1000 Mg/100 Ml Inj (Diprivan 10 (11/13/16 18:45) ^ Infusion (11/13/16 18:43) RASS (11/13/16 18:43) Neurological Rass Scale BROOKS.Q2H (11/13/16 18:43) Chest, Single Ap (11/13/16 ) Sabas-Gastric Tube Insert/Mon (11/13/16 18:43) Urinary Catheter Insert/Apply (11/13/16 18:43) Admit Order (Ed Use Only) (11/13/16 18:45) Labs Laboratory Tests Test 11/13/16 11/13/16 11/13/16 17:00 17:03 17:24 White Blood Count 8.8 TH/MM3 Red Blood Count 5.00 MIL/MM3 Hemoglobin 14.5 GM/DL Hematocrit 44.3 % Mean Corpuscular Volume 88.5 FL Mean Corpuscular Hemoglobin 29.0 PG Mean Corpuscular Hemoglobin 32.7 % Concent Red Cell Distribution Width 14.6 % Platelet Count 130 TH/MM3 Mean Platelet Volume 7.7 FL Neutrophils (%) (Auto) 54.6 % Lymphocytes (%) (Auto) 36.1 % Monocytes (%) (Auto) 8.1 % Eosinophils (%) (Auto) 0.9 % Basophils (%) (Auto) 0.3 % Neutrophils # (Auto) 4.8 TH/MM3 Lymphocytes # (Auto) 3.2 TH/MM3 Monocytes # (Auto) 0.7 TH/MM3 Eosinophils # (Auto) 0.1 TH/MM3 Basophils # (Auto) 0.0 TH/MM3 CBC Comment DIFF FINAL Differential Comment Prothrombin Time 10.6 SEC Prothromb Time International 1.0 RATIO Ratio Sodium Level 136 MEQ/L Potassium Level 3.7 MEQ/L Chloride Level 98 MEQ/L Carbon Dioxide Level 32.4 MEQ/L Anion Gap 6 MEQ/L Blood Urea Nitrogen 16 MG/DL Creatinine 1.05 MG/DL Estimat Glomerular Filtration 72 ML/MIN Rate Random Glucose 80 MG/DL Calcium Level 8.7 MG/DL Magnesium Level 1.7 MG/DL Total Bilirubin 0.2 MG/DL Aspartate Amino Transf 18 U/L (AST/SGOT) Alanine Aminotransferase 18 U/L (ALT/SGPT) Alkaline Phosphatase 74 U/L Total Creatine Kinase 49 U/L Troponin I LESS THAN 0.02 NG/ML Total Protein 8.3 GM/DL Albumin 3.4 GM/DL Free Thyroxine 0.87 NG/DL Free Triiodothyronine (T3) 3.74 PG/ML pg/dL Thyroid Stimulating Hormone 16.000 uIU/ML 3rd Gen Salicylates Level 3.2 MG/DL Acetaminophen Level LESS THAN 2.0 MCG/ML Valproic Acid (Depakene) Level 101 MCG/ML Ethyl Alcohol Level LESS THAN 3 MG/DL Lactic Acid Level 3.3 mmol/L Ammonia 30 MCMOL/L Urine Color YELLOW Urine Turbidity CLEAR Urine pH 5.5 Urine Specific [place] 1.017 Urine Protein NEG mg/dL Urine Glucose (UA) NEG mg/dL Urine Ketones NEG mg/dL Urine Occult Blood NEG Urine Nitrite NEG Urine Bilirubin NEG Urine Urobilinogen LESS THAN 2.0 MG/DL Urine Leukocyte Esterase NEG Urine WBC LESS THAN 1 /hpf Urine Squamous Epithelial <1 /hpf Cells Urine Calcium Oxalate Crystals RARE /hpf Microscopic Urinalysis Comment CATH-CULT NOT IND Urine Opiates Screen NEG Urine Barbiturates Screen NEG Urine Amphetamines Screen NEG Urine Benzodiazepines Screen NEG Urine Cocaine Screen NEG Urine Cannabinoids Screen NEG MDM Medical Decision Making Medical Screen Exam Complete: Yes Emergency Medical Condition: Yes Medical Record Reviewed: Yes Interpretation(s) Twelve-lead EKG was reviewed by me. Normal sinus rhythm, normal axis, tachycardia, nonspecific ST-T wave changes. Heart rate of 103 bpm. Differential Diagnosis Status epilepticus, intracranial bleed, intracranial tumor, electrolyte abnormality Narrative Course 6:57 PM patient was given Ativan IM since there was no IV access while he was having a seizure. An ultrasound guided peripheral IV was established by the RN. Patient was given 2 more milligrams of IV Ativan when he had another seizure. Therefore milligrams were given within his plan of 30 minutes. Patient was taken to the CT scan and the CT report came back negative. Soon after coming back from CT patient was extremely sonorous. I inserted a nasal trumpet since his oxygen saturation went down to 86%. Patient was also put on a nonrebreather which made the oxygen saturation go up to 99% but his sonorous breathing continued. GCS was 8 at this point. The audio visual aids director was in the department and I discussed the case with him. The audio visual aids director wanted to speak with patient's legal guardian which happens to be his brother. Please refer to the audio visual aids director note as well but as per his telephone conversation with the brother/guardian wanted everything to be done at this point. He was intubated by me. Please refer to my procedure note. Patient will be admitted to the ICU. He was started on a gram off Keppra bolus. Depakote level was mildly elevated. Patient's lactic acid was elevated which is from his status epilepticus. Critical Care Narrative Aggregate critical care time was 90 minutes. Time to perform other separately billable procedures was not included in the critical care time. My time did not include minutes spent treating any other patients simultaneously or on activities that did not directly contribute to the patient's treatment. The services I provided to this patient were to treat and/or prevent clinically significant deterioration that could result in: Altered mental status, status epilepticus, respiratory failure I provided critical care services requiring my management, as noted below: Chart data review, documentation time, medication orders and management, vital sign assessments/reviewing monitor data, ordering and reviewing lab tests, ordering and interpreting/reviewing x-rays and diagnostic studies, care of the patient and discussion of the patient with the admitting physicians. Procedures Procedure Narrative After the risks and benefits were discussed the following procedure was performed: INTUBATION: The patient was put in optimal position for the procedure. Rapid sequence intubation was initiated by me using 20 milligrams of etomidate IV and 100 milligrams of succinylcholine IV. The patient was intubated with a 7.5 cuffed endotracheal tube. Tube placement was confirmed by visualization of the tube and balloon passing through the cords, capnometry and subsequent chest x-ray. Breath sounds were equal and well aerated bilaterally postintubation. No breath sounds over stomach. Patient tolerated procedure well. EKG Prior to Arrival: No Physician Communication Physician Communication Dr. Salas Diagnosis Primary Impression: Altered mental status Qualified Code: R40.1 - Stupor Additional Impressions: Status epilepticus Respiratory failure Qualified Code: J96.00 - Acute respiratory failure, unspecified whether with hypoxia or hypercapnia Admitting Information Admitting Physician Requests: David Lake MD Nov 13, 2016 16:59
[2016-11-13] MEDS ORDERED: SODIUM CHLORIDE 0.9% FLUSH 10 ML FLUSH IVF PRN ×2 (17:00→19:45)
[2016-11-13 17:23] LABS: AUTOMATED NEUTROPHIL # 4.8 TH/MM3 (1.8-7.7); BASOPHIL % 0.3 % (0.0-2.0); EOSINOPHIL # 0.1 TH/MM3 (0-0.4); EOSINOPHIL % 0.9 % (0.0-4.0); HEMATOCRIT 44.3 % (39.0-51.0); HEMO FLAGS DIFF FINAL; LYMPH % 36.1 % (9.0-44.0); LYMPHOCYTE # 3.2 TH/MM3 (1.0-4.8); MEAN CELL VOLUME 88.5 FL (80.0-100.0); MEAN CORPUSCULAR HGB CONC 32.7 % (32.0-36.0); MONO % 8.1 % (0.0-8.0); NEUT % 54.6 % (16.0-70.0); PLATELET COUNT 130 TH/MM3 (150-450); RED CELL DISTRIBUTION WIDTH 14.6 % (11.6-17.2); WHITE BLOOD COUNT 8.8 TH/MM3 (4.0-11.0)
[2016-11-13] MEDS ORDERED: levETIRAcetam INJ 1,000 MG in SODIUM CHLORIDE 0.9% INJ 100 ML IV ONE (17:30)
[2016-11-13] MEDS ORDERED: LORazepam 2 MG/ML VIAL IM ONE (17:30)
[2016-11-13] MEDS ORDERED: LORazepam 2 MG/ML VIAL IV PUSH ONE (17:30)
[2016-11-13 17:32] LABS: PROTHROMBIN TIME - PATIENT 10.6 SEC (9.8-11.6)
[2016-11-13 17:46] LABS: BLOOD, URINE NEG (NEG); CALCIUM OXALATE CRYSTALS,URINE RARE /hpf; GLUCOSE,URINE NEG (NEG); KETONE, URINE NEG (NEG); NITRITE,URINE NEG (NEG); PH, URINE 5.5 (5.0-8.5); SQUAMOUS EPITHELIAL CELL URINE <1 /hpf (0-5); URINE COLOR YELLOW (YELLW/STRAW)
[2016-11-13 17:46] LABS: ALT (GPT) 18 U/L (12-78); ANION GAP 6 MEQ/L (5-15); AST (GOT) 18 U/L (15-37); BICARBONATE 32.4 MEQ/L (21.0-32.0); BLOOD UREA NITROGEN 16 MG/DL (7-18); CHLORIDE 98 MEQ/L (98-107); GLOMERULAR FILTRATION RATE 72 ML/MIN (>89); MAGNESIUM 1.7 MG/DL (1.5-2.5); SODIUM (NA) 136 MEQ/L (136-145)
[2016-11-13 17:47] LABS: POTASSIUM 3.7 MEQ/L (3.5-5.1)
[2016-11-13 17:48] LABS: COMMENT (UR) CATH-CULT NOT IND; CULTURE IF INDICATED CATH CULTURE NOT IND
--- NOTE | 2016-11-13 17:49 | RADRPT ---
EXAM DATE/TIME: 11/13/2016 17:36 [facility] COMPARISON: CT BRAIN W/O CONTRAST, September 05, 2016, 1:41. INDICATIONS : Altered mental status after seizure; postictal. RADIATION DOSE: 56.35 CTDIvol (mGy) MEDICAL HISTORY : Dementia. Hypertension. Chronic obstructive pulmonary disease.Hep C SURGICAL HISTORY : None. ENCOUNTER: Initial ACUITY: 1 day PAIN SCALE: Non-responsive LOCATION: cranial TECHNIQUE: Multiple contiguous axial images were obtained of the head. Using automated exposure control and adjustment of the mA and/or kV according to patient size, radiation dose was kept as low as reasonably achievable to obtain optimal diagnostic quality images. FINDINGS: CEREBRUM: The ventricles are normal for age. No evidence of midline shift, mass lesion, hemorrha ge or acute infarction. No extra-axial fluid collections are seen. POSTERIOR FOSSA: The cerebellum and brainstem are intact. The 4th ventricle is midline. The cer ebellopontine angle is unremarkable. EXTRACRANIAL: The visualized portion of the orbits is intact. SKULL: The calvaria is intact. No evidence of skull fracture. CONCLUSION: Negative for acute process. Silvestre Iniguez MD FACR on November 13, 2016 at 17:47 Board Certified Radiologist. This report was verified electronically.
[2016-11-13 17:51] LABS: AMPHETAMINE, URINE NEG (NEG); BARBITURATES, URINE NEG (NEG); COCAINE, URINE NEG (NEG)
[2016-11-13 17:53] LABS: ALKALINE PHOSPHATASE 74 U/L (45-117); TOTAL BILIRUBIN ADULT 0.2 MG/DL (0.2-1.0)
[2016-11-13 17:54] LABS: ACETAMINOPHEN LESS THAN 2.0 MCG/ML (10.0-30.0); CREATINE KINASE 49 U/L (39-308)
[2016-11-13] MEDS ORDERED: LEVOTHYROXINE SODIUM 100 MCG VIAL IV PUSH ONE (18:15)
[2016-11-13] MEDS ORDERED: levETIRAcetam 1000 MG INJ 100 ML IV ONE (18:15)
[2016-11-13] MEDS ORDERED: HYDROCORTISONE SOD SUCCINATE 100 MG VIAL IV PUSH ONE (18:15)
[2016-11-13] MEDS ORDERED: SUCCINYLCHOLINE CHLORIDE 200 MG/10 ML VIAL ONE (18:30)
[2016-11-13] MEDS ORDERED: ETOMIDATE 20 MG/10 ML VIAL ONE (18:31)
[2016-11-13] MEDS ORDERED: ETOMIDATE 20 MG/10 ML VIAL IV PUSH ONE (18:45)
[2016-11-13] MEDS ORDERED: SUCCINYLCHOLINE CHLORIDE 200 MG/10 ML VIAL IV PUSH ONE (18:45)
[2016-11-13] MEDS ORDERED: PROPOFOL 1000 MG/100 ML INJ 100 ML IV SCH ×2 (18:45→19:30)
--- NOTE | 2016-11-13 19:14 | RADRPT ---
EXAM DATE/TIME: 11/13/2016 18:52 [facility] COMPARISON: CHEST SINGLE AP, September 04, 2016, 18:48. INDICATIONS : Evaluate ET tube placement. MEDICAL HISTORY : None. SURGICAL HISTORY : None. ENCOUNTER: Initial ACUITY: 1 day PAIN SCORE: 0/10 LOCATION: Bilateral chest FINDINGS: An endotracheal tube has its tip 2 cm above the oziel. A nasogastric tube has its tip below the yola phragm. The heart and mediastinal structures are stable. The pulmonary vascular pattern is normal. Scattered bibasilar atelectasis is noted. CONCLUSION: 1. Scattered bibasilar atelectasis. 2. Endotracheal tube in good position well above the oziel. Dom Maxwell MD on November 13, 2016 at 19:02 Board Certified Radiologist. This report was verified electronically.
[2016-11-13 19:15] LABS: LACTIC ACID GHOST NOT REPORTABLE
[2016-11-13] MEDS ORDERED: POTASSIUM PHOSPHATE MONOBASIC 500 MG TAB PO/TUBE PRN (19:30)
[2016-11-13] MEDS ORDERED: POTASSIUM PHOSPHATE INJ 30 MMOL in SODIUM CHLOR 0.9% 250 ML INJ 250 ML IV PRN (19:30)
[2016-11-13] MEDS ORDERED: POTASSIUM CHLOR 40 MEQ PREMIX 100 ML IV PRN ×2 (19:30)
[2016-11-13] MEDS ORDERED: fentaNYL DRIP 250 ML IV SCH (19:30)
[2016-11-13] MEDS ORDERED: ACETAMINOPHEN 325 MG TAB PO PRN (19:30)
[2016-11-13] MEDS ORDERED: MAGNESIUM OXIDE 400 MG TAB PO PRN (19:30)
[2016-11-13] MEDS ORDERED: CHLORHEXIDINE GLUCONATE 2 % 1 PACK (2 CLOTHS) TOP PRN (19:30)
[2016-11-13] MEDS ORDERED: MISCELLANEOUS NURSING INFORMATION XX SCH (19:30)
[2016-11-13] MEDS ORDERED: SENNOSIDES SYRUP 8.8 MG/5 ML CUP G-TUBE PRN (19:30)
[2016-11-13] MEDS ORDERED: MAGNESIUM SULFATE INJ 2 GM in SODIUM CHLORIDE 0.9% INJ 96 ML IV PRN (19:30)
[2016-11-13] MEDS ORDERED: MAGNESIUM SULFATE INJ 4 GM in SODIUM CHLORIDE 0.9% INJ 92 ML IV PRN (19:30)
[2016-11-13] MEDS ORDERED: ONDANSETRON HCL 4 MG/2 ML VIAL IV PRN (19:30)
[2016-11-13] MEDS ORDERED: DEXTROSE 50% IN WATER 50 ML VIAL(D50) IV PUSH PRN (19:30)
[2016-11-13] MEDS ORDERED: SODIUM PHOSPHATE INJ 30 MMOL in SODIUM CHLOR 0.9% 250 ML INJ 240 ML IV PRN (19:30)
[2016-11-13] MEDS ORDERED: POTASSIUM CHLOR 20 MEQ PREMIX 100 ML IV PRN (19:30)
[2016-11-13] MEDS ORDERED: GLUCAGON 1 MG/ML VIAL OTHER PRN (19:30)
[2016-11-13] MEDS ORDERED: POTASSIUM PHOSPHATE MONOBASIC 500 MG TAB PO PRN (19:30)
--- NOTE | 2016-11-13 19:34 | HHI.HP ---
[facility] Service Critical Care Medicine Primary Care Physician [facility] Admission Diagnosis altered mental status, respiratory failure, status epilepticus Diagnosis: (1) Status epilepticus Diagnosis: Principal (2) Respiratory failure Diagnosis: Principal (3) Altered mental status Diagnosis: Principal (4) COPD (chronic obstructive pulmonary disease) Diagnosis: Principal (5) Bipolar disorder Diagnosis: Principal (6) Antisocial personality disorder Diagnosis: Principal (7) Cirrhosis of liver Diagnosis: Principal (8) GERD (gastroesophageal reflux disease) Diagnosis: Principal (9) Poor intravenous access Diagnosis: Principal (10) Hepatitis B and C Diagnosis: Principal (11) Lactic acidosis Diagnosis: Principal (12) Elevated TSH Diagnosis: Principal (13) Hypertension Diagnosis: Principal (14) Gout Diagnosis: Principal (15) Methadone use Diagnosis: Principal Chief Complaint: Transfer from [facility] with altered mental status Travel History International Travel<30 Days: No Contact w/Intl Traveler <30 Da: No Traveled to Known Affected Are: No History of Present Illness 61-year-old male. Date of admission 11/13/2016. Past medical history includes hepatitis B and C, underlying seizure disorder, bipolar disorder, anxiety depression, dyslipidemia, alcohol-induced cirrhosis, chronic pancreatitis, hypertension, COPD, gout and chronic low back pain. He presented to the [place] ED from [facility] with a 2 day history of altered mental status. According to the ED physician records, that nursing facility was attempting to obtain blood samples to check antiepileptic medication levels but were unable to complete secondary to patient having poor peripheral access. At that facility, patient was documented to be having intermittent tonic/clonic jerking motions/seizures with a documented GCS of 11.. Patient was not in a condition to give any meaningful history. There is paperwork stating he is DNR. Patient was given 8 mg of IM Ativan. With this medication, patient still remained tremulous however became less responsive the GCS around 8 with sonorous breath sounds. Nasal trumpet was placed as his saturations were 86%. Eventually he was able to recover to 99% on a nonrebreather mask. CT the head revealed no acute intracranial findings. Pertinent lab work revealed TSH is 16. The ED physician divided 200 of IV Levoxyl. She also provided 100 mg of hydrocortisone. I was contacted by the physicians at this time for ICU admission. Reviewed [facility] DNR status order. This appeared to be signed by Pardeep Peters. The court appointed guardian box was checked. Attempted to contact responsible libertarian written on [facility] resident information sheet Dianelys Chambers at [phone]. This was non-valid number. Attempted to contact [facility] for alternate contacts. None was provided. Contacted next of kin Edy Peters at [phone]. He states he has been attempting to contact his brother for 2 years. He states the patient's name is "Nolberto". I explained him the patient's current clinical condition of ongoing seizure activity and the patient received medications to suppress the seizure activity and currently the patient was relatively unresponsive and not protecting airway. Explained to him that the patient has a written DNR form. Explained to him that we were unable to contact court-appointed guardian. Patient states that since he has not seen him in 2 years he doesn't want to make the decision to not intubate and wants "everything" done at the present time if the situation is potentially reversible. I discussed this with the ED physician Dr. Norton and orthopaedic general office. This is a uriostegui area but will intubate at the present time in attempt to reverse altered mental status/seizure disorder. Patient was intubated using 20 mg etomidate and 100 mg succinylcholine using 7.5 ET tube. Review of Systems ROS Limitations: Intubated Past Family Social History Allergies: Coded Allergies: No Known Allergies (Verified , 11/13/16) Per patient. Past Medical History Bipolar disorder Gout Chronic low back pain COPD Hypertension Chronic pancreatitis Hepatitis B and C History of alcohol abuse Dyslipidemia Past Surgical History Tonsillectomy and adenoidectomy Appendectomy ORIF left femur fracture Reported Medications Duoneb (Ipratropium-Albuterol Neb) 0.5-2.5 Mg/3 Ml Neb 1 Nebule INH QID PRN Divalproex ER (Divalproex Sodium) 250 Mg Bassam 500 Mg PO HS Trazodone (Trazodone HCl) 100 Mg Tab 250 Mg PO HS Seroquel (Quetiapine Fumarate) 50 Mg Tab 75 Mg PO BID Keppra (Levetiracetam) 750 Mg Tab 750 Mg PO BID Calcium + D3 (Calcium Carbonate-Cholecalciferol) 600-200 Mg-Unit Tab 1 Tab PO BID Vitamin B-1 (Thiamine Mononitrate) 100 Mg Tab Zoloft (Sertraline HCl) 100 Mg Tab 200 Mg PO DAILY Ventolin Hfa 18 GM Inh (Albuterol Sulfate) 90 Mcg/Act Aer 2 Puff INH Q4-6H PRN Nasal Mist Inh (Sodium Chloride) 0.9 % Aer 1 [place] EACH NARE Q4H PRN Mobic (Meloxicam) 15 Mg Tab 15 Mg PO DAILY Hydroxyzine HCl 25 Mg Tab 25 Mg PO QID PRN [place] Cough Drops (Throat Lozenges) 1 [place] 1 Lozenge PO Q2H PRN Tylenol (Acetaminophen) 325 Mg Cap 325 Mg PO BID PRN Active Ordered Medications Reviewed in EMR Family History To find his noncontributory Social History Long history of EtOH abuse Physical Exam Vital Signs Vital Signs Date Time Temp Pulse Resp B/P Pulse Ox O2 Delivery O2 Flow Rate FiO2 11/13/16 19:10 105 21 149/83 100 Ventilator 11/13/16 19:08 103 27 144/105 97 Ventilator 11/13/16 18:57 98 100 11/13/16 18:40 114 17 133/77 100 Ventilator 11/13/16 17:54 115 14 143/73 99 Non-Rebreather 11/13/16 17:45 116 18 119/74 99 Non-Rebreather 15 11/13/16 17:01 100 Nasal Cannula 3 11/13/16 16:48 98.3 104 22 150/81 96 11/13/16 15:48 97.8 120 20 128/83 95 Room Air Physical Exam GENERAL: Disheveled male lying in bed on mechanical ventilation SKIN: Warm and dry. No rash. HEAD: Atraumatic. Normocephalic. EYES: Pupils equal and round about 2 mm bilaterally and reactive. No scleral icterus. No injection or drainage. ENT: No nasal bleeding or discharge. Mucous membranes dry and pink NECK: Trachea midline. No JVD. Right IJ is clean dry and intact CARDIOVASCULAR: Regular rate and rhythm. S1, S2. No S4. Without murmur RESPIRATORY: He crackles appreciated in the right lower lobe. Breath sounds equal bilaterally. GASTROINTESTINAL: Abdomen soft, non-tender, nondistended. Hypoactive bowel sounds. MUSCULOSKELETAL: Extremities without significant peripheral edema. No obvious deformities. NEUROLOGICAL: Currently sedated on the ventilator. Patient with generalized tonic-clonic movements upper and lower extremities. Positive gag. Positive corneal reflex. Laboratory Laboratory Tests Test 11/13/16 11/13/16 11/13/16 17:00 17:03 17:24 White Blood Count 8.8 Red Blood Count 5.00 Hemoglobin 14.5 Hematocrit 44.3 Mean Corpuscular Volume 88.5 Mean Corpuscular Hemoglobin 29.0 Mean Corpuscular Hemoglobin 32.7 Concent Red Cell Distribution Width 14.6 Platelet Count 130 Mean Platelet Volume 7.7 Neutrophils (%) (Auto) 54.6 Lymphocytes (%) (Auto) 36.1 Monocytes (%) (Auto) 8.1 Eosinophils (%) (Auto) 0.9 Basophils (%) (Auto) 0.3 Neutrophils # (Auto) 4.8 Lymphocytes # (Auto) 3.2 Monocytes # (Auto) 0.7 Eosinophils # (Auto) 0.1 Basophils # (Auto) 0.0 CBC Comment DIFF FINAL Differential Comment Prothrombin Time 10.6 Prothromb Time International 1.0 Ratio Sodium Level 136 Potassium Level 3.7 Chloride Level 98 Carbon Dioxide Level 32.4 Anion Gap 6 Blood Urea Nitrogen 16 Creatinine 1.05 Estimat Glomerular Filtration 72 Rate Random Glucose 80 Calcium Level 8.7 Magnesium Level 1.7 Total Bilirubin 0.2 Aspartate Amino Transf 18 (AST/SGOT) Alanine Aminotransferase 18 (ALT/SGPT) Alkaline Phosphatase 74 Total Creatine Kinase 49 Troponin I LESS THAN 0.02 Total Protein 8.3 Albumin 3.4 Thyroid Stimulating Hormone 16.000 3rd Gen Salicylates Level 3.2 Acetaminophen Level LESS THAN 2.0 Valproic Acid (Depakene) Level 101 Ethyl Alcohol Level LESS THAN 3 Lactic Acid Level 3.3 Ammonia 30 Urine Color YELLOW Urine Turbidity CLEAR Urine pH 5.5 Urine Specific [place] 1.017 Urine Protein NEG Urine Glucose (UA) NEG Urine Ketones NEG Urine Occult Blood NEG Urine Nitrite NEG Urine Bilirubin NEG Urine Urobilinogen LESS THAN 2.0 Urine Leukocyte Esterase NEG Urine WBC LESS THAN 1 Urine Squamous Epithelial <1 Cells Urine Calcium Oxalate Crystals RARE Microscopic Urinalysis Comment CATH-CULT NOT IND Urine Opiates Screen NEG Urine Barbiturates Screen NEG Urine Amphetamines Screen NEG Urine Benzodiazepines Screen NEG Urine Cocaine Screen NEG Urine Cannabinoids Screen NEG Date/Time Procedure Status Source Growth 11/13/16 17:05 Aerobic Blood Culture Received Blood Peripheral Pending 11/13/16 17:05 Anaerobic Blood Culture Received Blood Peripheral Pending Result Diagram: 11/13/16 1700 11/13/16 1700 Imaging Last Impressions Head CT 11/13/16 1659 Signed Impressions: Service Date/Time: Sunday, November 13, 2016 17:36 - CONCLUSION: Negative for acute process. Silvestre Iniguez MD FACR Assessment and Plan Assessment and Plan Neuro/Psych: Status epilepticus Seizure disorder Bipolar disorder Anxiety/depression History of EtOH abuse Methadone use Currently on propofol/Versed drips for sedation/analgesia while intubated Goal of RA SS -2 Home medication is Depakote 250 mg am/500 mg p.m. Level was [address]. [address] on 500 mg IV twice a day and recheck level in a.m. Patient is on Keppra 750 twice a day [facility]. Currently on 1000 no grams IV twice a day. Loaded with 1 g in ED. Level checked pending Holding trazodone 250mg daily at bedtime at night. And Zoloft 10 mg daily Holding Atarax 25 mg 4 times a day for sedation. CT head at admission reveals no acute findings. EEG has been ordered Continue thiamine 100 mg daily with history of EtOH use. Mobic 15 mg daily for low back pain will be held Holding methadone 5 mg at night CV: History of V. tach History of hypertension History of dyslipidemia Currently normal saline at 84 cc an hour. Currently not requiring antihypertensives and/or vasopressors. As needed Nitropaste/hydralazine/labetalol will be written for hypertension Resp: Acute respiratory failure COPD See note above for intubation. Currently on ACV 20/500/5/100 Wean FiO2 as tolerated. Ventilator bundle DuoNeb therapy every 6 hours with albuterol nebulizers every 2 hours as needed Spontaneous breathing trials when appropriate Follow-up post intubation chest x-ray/ABG On as needed do nebs 4 times a day and Ventolin inhaler 1-2+ as needed at home GI: Hepatitis B/C History of EtOH induced cirrhosis Chronic pancreatitis Patient is currently nothing by mouth OG tube to low intermittent wall suction Protonix for GI prophylaxis Colace/as needed Senokot for bowel regimen Follow-up lipase in a.m. : Bee will be placed for accurate I's and O's in a critically ill patient Endo: Elevated TSH Noted patient was given 200 g IV Levoxyl in the ED by ED physician. Check free T4/T3. Sliding-scale insulin with Accu-Cheks every 6 hours to maintain euglycemia Renal: Creatinine currently within normal limits Currently on normal saline at 84 cc an hour Accurate I's and O's Monitor urine output Heme: Thrombocytopenia Hemoglobin within normal limits Coags within normal limits Recheck CBC in a.m. ID: Sputum sample will be sent. Blood cultures 2 ordered in ED. Likely aspiration will start empirically on Zosyn with 1 dose of vancomycin FEN: Replace electrolytes as clinically indicated per ICU electrolyte protocol MSK: PT evaluate and treat Access - Right IJ CVL day 1 placed 11/13 Prophylaxis - GI - Protonix - DVT - SCD/holding pharmacological prophylaxis in light of ongoing seizures Critical Care: The total critical care time was 95 minutes. Time to perform other separately billable procedures was not included in the critical care time. Addendum Discussed with brother and will phone to clarify CODE STATUS. Reiterated DNR status but due to respiratory issues in ED from [facility] that possibly reversible intubation was reasonable at that time however patient does have a DNR signed with the guardian. At this time, family wishes to respect wish of patient. Will make alternate code intubation only at the present time. Noted patient currently having coffee grounds from OG tube. We'll place on Protonix drip and check serial hemoglobins. Coags ordered. Code Status Full code Discussed Condition With Dr. Norton, ED physician, Edy Peters - brother at [phone] and orthopaedic general office for [place] [facility]. Noted attempts were made to contact the guardian Dianelys Chambers at [phone] which were unsuccessful. Attempts to contact Aicha Garduno to find alternate phone numbers were unsuccessful. Problem Qualifiers (1) Respiratory failure: Qualified Code: J96.00 - Acute respiratory failure, unspecified whether with hypoxia or hypercapnia (2) Altered mental status: Qualified Code: R40.1 - Stupor (3) COPD (chronic obstructive pulmonary disease): (4) Bipolar disorder: Qualified Code: F31.9 - Bipolar affective disorder, remission status unspecified (5) Cirrhosis of liver: Qualified Code: K74.60 - Cirrhosis of liver without ascites, unspecified hepatic cirrhosis type (6) GERD (gastroesophageal reflux disease): Qualified Code: K21.9 - Gastroesophageal reflux disease, esophagitis presence not specified (7) Hypertension: Qualified Code: I10 - Essential hypertension (8) Gout: Qualified Code: M10.9 - Gout, unspecified cause, unspecified chronicity, unspecified site Deuce Salas MD Nov 13, 2016 19:34
[2016-11-13] MEDS: DOCUSATE SODIUM 100 MG/10 ML UDC G-TUBE SCH (19:45)
[2016-11-13] MEDS ORDERED: MIDAZOLAM 100 MG/ML INJ 100 ML IV SCH (19:45)
[2016-11-13] MEDS ORDERED: fentaNYL DRIP 250 ML ONE (19:53)
[2016-11-13] MEDS ORDERED: MIDAZOLAM 100 MG/ML INJ 100 ML ONE (20:09)
[2016-11-13] MEDS ORDERED: METH5TAB PO (20:21)
[2016-11-13] MEDS ORDERED: KEPP750T PO (20:21)
[2016-11-13] MEDS ORDERED: DIVA250ER PO (20:21)
[2016-11-13] MEDS ORDERED: DEPA500T3 PO (20:21)
[2016-11-13 20:23] LABS: BLOOD GAS BASE EXCESS -0.3 mmol/L (-2-2); BLOOD GAS CARBOXYHEMOGLOBIN 1.3 % (0-4); BLOOD GAS HCO3 26 mmol/L (22-26); BLOOD GAS METHEMOGLOBIN 0.7 % (0-2); BLOOD GAS O2 HGB SATURATION 98 % (90-100); BLOOD GAS OXYGEN CONTENT 18.5 Vol % (12.0-20.0); BLOOD GAS PCO2 55 mmHg (38-42); BLOOD GAS PO2 472 mmHG (61-120); BLOOD GAS TOTAL HGB 12.5 G/DL (12.0-16.0); CRITICAL VALUE YES; OXYGEN DEVICE VENTILATOR; TEMP CORR TO 98.6
[2016-11-13 20:24] LABS: DRAW SITE RT RADIAL; FIO2 100 %; NUMBER OF ARTERIAL PUNCTURES 1; STAT YES; ULNAR PULSE PRESENT; VENT SETTINGS AC/16/500/PEEP+5
--- NOTE | 2016-11-13 20:26 | RADRPT ---
EXAM DATE/TIME: 11/13/2016 19:34 [facility] COMPARISON: CHEST SINGLE AP, November 13, 2016, 18:52. INDICATIONS : Evaluate central line placement. MEDICAL HISTORY : None. SURGICAL HISTORY : None. ENCOUNTER: Initial ACUITY: 1 day PAIN SCORE: 0/10 LOCATION: Bilateral chest FINDINGS: A right internal jugular central line has its tip in the superior vena cava. There is no pneumothora x. The endotracheal tube is in good position 3 cm above the oziel. A nasogastric tube has its tip in the proximal stomach and its side port in the distal esophagus. The heart is normal. Minimal atel ectasis is noted within the right lung base. No pulmonary edema is noted. CONCLUSION: 1. No pneumothorax status post placement of right internal jugular central line which has its tip in the superior vena cava. 2. Minimal right basilar atelectasis. Dom Maxwell MD on November 13, 2016 at 20:19 Board Certified Radiologist. This report was verified electronically.
[2016-11-13] MEDS: RESP: ALBUTEROL 2.5 MG/IPRATROPIUM 0.5 MG NEB (SCH) INH (20:28)
[2016-11-13 20:45] LABS: FREE T3 3.74 PG/ML (2.18-3.98); FREE T4 0.87 NG/DL (0.76-1.46)
[2016-11-13] MEDS: SODIUM CHLORIDE 0.9% FLUSH 10 ML FLUSH IV FLUSH SCH (21:00)
[2016-11-13] MEDS ORDERED: INSULIN NovoLIN REGULAR SUPPLEMENTAL SCALE SQ SCH (21:00)
[2016-11-13] MEDS: SODIUM CHLOR 0.9% 1000 ML INJ 1,000 ML IV SCH (21:23)
--- NOTE | 2016-11-13 21:33 | PD.PROCEDR ---
Central Line Procedure REASON FOR PROCEDURE Central venous access PROCEDURE PERFORMED Central line placement: Right IJ CVL CONSENT Informed consent for procedure was not obtained and concern emergent due to lack of IV access. Discussed with /ED physician and concurred.. The risks and benefits of the procedure were discussed to include but limited to bleeding, clot formation, infection, and even . ANESTHESIA Local injection of 1% Lidocaine DESCRIPTION OF THE PROCEDURE The patient was placed in supine, mild Trendelenburg position. The area was exposed and cleansed with ChloraPrep, times two. Large sterile drape was used to cover the patient, with the site exposed, under sterile conditions including cap, face mask, sterile gown, and sterile gloves. On single attempt, the introducer needle was inserted with negative pressure in syringe and venous flash was obtained. The guide wire was then advanced without any restriction and the needle was removed. The dilator was used without any complications. Using Seldinger technique the triple-lumen catheter was advanced over the guide wire to a depth of 16 centimeters. The guide wire was removed. All ports were aspirated with dark venous blood return and flushed easily with sterile saline. All ports were capped. Antibiotic disc was placed around central line at puncture site. The central line was secured to the skin with two interrupted 2.0 silk sutures. The area was bandaged with sterile see-through central line bandage. RADIOLOGICAL DATA Ultrasound guidance was used to locate right internal jugular vein. Doppler/ color flow was used to confirm venous flow. COMPLICATIONS: No apparent complications ESTIMATED BLOOD LOSS: Less than 1 cc. Deuce Salas MD Nov 13, 2016 21:33
[2016-11-13] MEDS ORDERED: hydrALAZINE HCL 20 MG/ML VIAL IV PUSH PRN (21:45)
[2016-11-13] MEDS ORDERED: LABETALOL HCL 100 MG/20 ML VIAL IV PUSH PRN ×2 (21:45→22:00)
[2016-11-13] MEDS ORDERED: POTASSIUM CHLOR 20 MEQ PREMIX 100 ML IV ONE (21:45)
[2016-11-13] MEDS ORDERED: VANCOMYCIN INJ 1,000 MG in SODIUM CHLOR 0.9% 250 ML INJ 250 ML IV ONE (21:45)
[2016-11-13] MEDS ORDERED: NITROGLYCERIN 2% OINT 1 GM PACKET TOPICAL PRN (21:45)
[2016-11-13] MEDS: MAGNESIUM SULFATE 1 GM PREMIX 100 ML IV SCH (22:19)
[2016-11-13] MEDS ORDERED: NOREPINEPHRINE INJ 4 MG in SODIUM CHLOR 0.9% 250 ML INJ 246 ML IV SCH (23:30)
[2016-11-13] MEDS ORDERED: TERBUTALINE INJ 1 MG/ML AMP SQ PRN (23:30)
[2016-11-14] VITALS (18 sets, daily range): BP systolic 88–162; BP diastolic 55–84; PULSE 65–91; RESP 8–27; TEMP 98.1–99.2; O2SAT 88–100
[2016-11-14] MEDS ORDERED: PANTOPRAZOLE INJ 80 MG in SODIUM CHLORIDE 0.9% INJ 35 ML IV ONE (00:15)
[2016-11-14] MEDS: VALPROATE INJ 500 MG in SODIUM CHLORIDE 0.9% INJ 100 ML IV SCH ×3 (00:19→19:44)
[2016-11-14] MEDS: MAGNESIUM SULFATE 1 GM PREMIX 100 ML IV SCH (00:24)
[2016-11-14] MEDS: PANTOPRAZOLE INJ 80 MG in SODIUM CHLORIDE 0.9% INJ 100 ML IV SCH ×2 (00:25→09:11)
[2016-11-14] MEDS: PIPERACIL-TAZO 4.5 GM PREMIX 100 ML IV SCH ×4 (00:27→23:02)
[2016-11-14] MEDS: CHLORHEXIDINE 0.12% (ORAL KIT) 15 ML CUP MT SCH ×3 (00:29→19:44)
[2016-11-14 00:47] LABS: HEMATOCRIT 36.8 % (39.0-51.0); REVIEW FLAG FINAL
[2016-11-14 01:01] LABS: APTT (PATIENT) 27.1 SEC (24.3-30.1)
[2016-11-14] MEDS: RESP: ALBUTEROL 2.5 MG/IPRATROPIUM 0.5 MG NEB (SCH) INH ×4 (03:20→20:39)
[2016-11-14 04:07] LABS: ALT (GPT) 13 U/L (12-78); ANION GAP 8 MEQ/L (5-15); AST (GOT) 15 U/L (15-37); BICARBONATE 27.3 MEQ/L (21.0-32.0); BLOOD UREA NITROGEN 13 MG/DL (7-18); CHLORIDE 106 MEQ/L (98-107); GLOMERULAR FILTRATION RATE 95 ML/MIN (>89); MAGNESIUM 1.9 MG/DL (1.5-2.5); POTASSIUM 4.1 MEQ/L (3.5-5.1); SODIUM (NA) 141 MEQ/L (136-145)
[2016-11-14 04:16] LABS: ALKALINE PHOSPHATASE 48 U/L (45-117); TOTAL BILIRUBIN ADULT 0.2 MG/DL (0.2-1.0)
[2016-11-14 04:17] LABS: PROTHROMBIN TIME - PATIENT 11.2 SEC (9.8-11.6)
[2016-11-14 04:27] LABS: AUTOMATED NEUTROPHIL # 4.9 TH/MM3 (1.8-7.7); BASOPHIL % 0.1 % (0.0-2.0); HEMATOCRIT 35.8 % (39.0-51.0); HEMO FLAGS DIFF FINAL; LYMPH % 12.7 % (9.0-44.0); LYMPHOCYTE # 0.8 TH/MM3 (1.0-4.8); MEAN CELL VOLUME 86.7 FL (80.0-100.0); MEAN CORPUSCULAR HEMOGLOBIN 29.6 PG (27.0-34.0); MEAN CORPUSCULAR HGB CONC 34.1 % (32.0-36.0); MONO % 7.2 % (0.0-8.0); PLATELET COUNT 108 TH/MM3 (150-450); RED BLOOD COUNT 4.13 MIL/MM3 (4.50-5.90); RED CELL DISTRIBUTION WIDTH 14.8 % (11.6-17.2); WHITE BLOOD COUNT 6.1 TH/MM3 (4.0-11.0)
[2016-11-14] MEDS: INSULIN NovoLIN REGULAR SUPPLEMENTAL SCALE SQ SCH ×5 (04:43→23:03)
[2016-11-14] MEDS: CHLORHEXIDINE GLUCONATE 2 % 1 PACK (2 CLOTHS) TOP SCH (04:43)
[2016-11-14 05:22] LABS: BLOOD GAS BASE EXCESS 1.1 mmol/L (-2-2); BLOOD GAS CARBOXYHEMOGLOBIN 1.2 % (0-4); BLOOD GAS HCO3 24 mmol/L (22-26); BLOOD GAS O2 HGB SATURATION 98 % (90-100); BLOOD GAS PCO2 33 mmHg (38-42); BLOOD GAS PO2 174 mmHg (61-120); BLOOD GAS TOTAL HGB 12.1 G/DL (12.0-16.0); CRITICAL VALUE NO; DRAW SITE RT RADIAL; FIO2 40 %; NUMBER OF ARTERIAL PUNCTURES 1; OXYGEN DEVICE VENTILATOR; STAT NO; TEMP CORR TO 98.6; ULNAR PULSE PRESENT; VENT SETTINGS AC 20/500/PEEP5
[2016-11-14] MEDS: DOCUSATE SODIUM 100 MG/10 ML UDC G-TUBE SCH ×2 (08:39→19:44)
[2016-11-14] MEDS: levETIRAcetam 1000 MG INJ 100 ML IV SCH ×2 (08:39→19:44)
[2016-11-14] MEDS: SODIUM CHLOR 0.9% 1000 ML INJ 1,000 ML IV SCH (08:45)
[2016-11-14] MEDS ORDERED: PANTOPRAZOLE SODIUM 40 MG VIAL IV SCH (09:00)
[2016-11-14] MEDS: SODIUM CHLORIDE 0.9% FLUSH 10 ML FLUSH IVF SCH (09:00)
[2016-11-14] MEDS: SODIUM CHLORIDE 0.9% FLUSH 10 ML FLUSH IV FLUSH SCH ×2 (09:00→19:44)
[2016-11-14] MEDS: ARTIFICIAL TEARS OPTH SOLN 15 ML BTL EACH EYE SCH ×3 (09:11→16:40)
--- NOTE | 2016-11-14 10:29 | HHI.CCPN ---
Subjective Remarks/Hospital Course 61-year-old male. Date of admission 11/13/2016. Past medical history includes hepatitis B and C, underlying seizure disorder, bipolar disorder, anxiety depression, dyslipidemia, alcohol-induced cirrhosis, chronic pancreatitis, hypertension, COPD, gout and chronic low back pain. He presented to the [place] ED from [facility] with a 2 day history of altered mental status. According to the ED physician records, that nursing facility was attempting to obtain blood samples to check antiepileptic medication levels but were unable to complete secondary to patient having poor peripheral access. At that facility, patient was documented to be having intermittent tonic/clonic jerking motions/seizures with a documented GCS of 11.. Patient was not in a condition to give any meaningful history. There is paperwork stating he is DNR. Patient was given 8 mg of IM Ativan. With this medication, patient still remained tremulous however became less responsive the GCS around 8 with sonorous breath sounds. Nasal trumpet was placed as his saturations were 86%. Eventually he was able to recover to 99% on a nonrebreather mask. CT the head revealed no acute intracranial findings. Pertinent lab work revealed TSH is 16. The ED physician divided 200 of IV Levoxyl. She also provided 100 mg of hydrocortisone. I was contacted by the physicians at this time for ICU admission. Reviewed [facility] DNR status order. This appeared to be signed by Pardeep Peters. The court appointed guardian box was checked. Attempted to contact responsible libertarian written on [facility] resident information sheet Dianelys Marinaou at [phone]. This was non-valid number. Attempted to contact [facility] for alternate contacts. None was provided. Contacted next of kin Edy Peters at [phone]. He states he has been attempting to contact his brother for 2 years. He states the patient's name is "Nolberto". I explained him the patient's current clinical condition of ongoing seizure activity and the patient received medications to suppress the seizure activity and currently the patient was relatively unresponsive and not protecting airway. Explained to him that the patient has a written DNR form. Explained to him that we were unable to contact court-appointed guardian. Patient states that since he has not seen him in 2 years he doesn't want to make the decision to not intubate and wants "everything" done at the present time if the situation is potentially reversible. I discussed this with the ED physician Dr. Norton and general operator office. This is a uriostegui area but will intubate at the present time in attempt to reverse altered mental status/seizure disorder. Patient was intubated using 20 mg etomidate and 100 mg succinylcholine using 7.5 ET tube. 11/14 Patient is sedated with Versed 5mg and Diprivan and intubated. Afebrile. On Protonix drip. Objective Vital Signs Date Time Temp Pulse Resp B/P Pulse Ox O2 Delivery O2 Flow Rate FiO2 11/14/16 07:30 100 35 11/14/16 06:00 65 11/14/16 04:00 98.9 20 91/61 11/13/16 22:10 Ventilator 11/13/16 17:45 15 Result Diagram: 11/14/16 0333 11/14/16 0333 Other Results Laboratory Tests Test 11/13/16 11/13/16 11/13/16 11/13/16 17:00 17:03 17:24 20:21 White Blood Count 8.8 TH/MM3 Red Blood Count 5.00 MIL/MM3 Hemoglobin 14.5 GM/DL Hematocrit 44.3 % Mean Corpuscular Volume 88.5 FL Mean Corpuscular Hemoglobin 29.0 PG Mean Corpuscular Hemoglobin 32.7 % Concent Red Cell Distribution Width 14.6 % Platelet Count 130 TH/MM3 Mean Platelet Volume 7.7 FL Neutrophils (%) (Auto) 54.6 % Lymphocytes (%) (Auto) 36.1 % Monocytes (%) (Auto) 8.1 % Eosinophils (%) (Auto) 0.9 % Basophils (%) (Auto) 0.3 % Neutrophils # (Auto) 4.8 TH/MM3 Lymphocytes # (Auto) 3.2 TH/MM3 Monocytes # (Auto) 0.7 TH/MM3 Eosinophils # (Auto) 0.1 TH/MM3 Basophils # (Auto) 0.0 TH/MM3 CBC Comment DIFF FINAL Differential Comment Prothrombin Time 10.6 SEC Prothromb Time International 1.0 RATIO Ratio Sodium Level 136 MEQ/L Potassium Level 3.7 MEQ/L Chloride Level 98 MEQ/L Carbon Dioxide Level 32.4 MEQ/L Anion Gap 6 MEQ/L Blood Urea Nitrogen 16 MG/DL Creatinine 1.05 MG/DL Estimat Glomerular Filtration 72 ML/MIN Rate Random Glucose 80 MG/DL Calcium Level 8.7 MG/DL Magnesium Level 1.7 MG/DL Total Bilirubin 0.2 MG/DL Aspartate Amino Transf 18 U/L (AST/SGOT) Alanine Aminotransferase 18 U/L (ALT/SGPT) Alkaline Phosphatase 74 U/L Total Creatine Kinase 49 U/L Troponin I LESS THAN 0.02 NG/ML Total Protein 8.3 GM/DL Albumin 3.4 GM/DL Free Thyroxine 0.87 NG/DL Free Triiodothyronine (T3) 3.74 PG/ML pg/dL Thyroid Stimulating Hormone 16.000 uIU/ML 3rd Gen Salicylates Level 3.2 MG/DL Acetaminophen Level LESS THAN 2.0 MCG/ML Valproic Acid (Depakene) Level 101 MCG/ML Ethyl Alcohol Level LESS THAN 3 MG/DL Lactic Acid Level 3.3 mmol/L Ammonia 30 MCMOL/L Urine Color YELLOW Urine Turbidity CLEAR Urine pH 5.5 Urine Specific [place] 1.017 Urine Protein NEG mg/dL Urine Glucose (UA) NEG mg/dL Urine Ketones NEG mg/dL Urine Occult Blood NEG Urine Nitrite NEG Urine Bilirubin NEG Urine Urobilinogen LESS THAN 2.0 MG/DL Urine Leukocyte Esterase NEG Urine WBC LESS THAN 1 /hpf Urine Squamous Epithelial <1 /hpf Cells Urine Calcium Oxalate Crystals RARE /hpf Microscopic Urinalysis Comment CATH-CULT NOT IND Urine Opiates Screen NEG Urine Barbiturates Screen NEG Urine Amphetamines Screen NEG Urine Benzodiazepines Screen NEG Urine Cocaine Screen NEG Urine Cannabinoids Screen NEG Blood Gas Puncture Site RT RADIAL Blood Gas Patient Temperature 98.6 Blood Gas HCO3 26 mmol/L Blood Gas Base Excess -0.3 mmol/L Blood Gas Oxygen Saturation 98 % Arterial Blood pH 7.29 Arterial Blood Partial 55 mmHg Pressure CO2 Arterial Blood Partial 472 mmHG Pressure O2 Arterial Blood Oxygen Content 18.5 Vol % Arterial Blood 1.3 % Carboxyhemoglobin Arterial Blood Methemoglobin 0.7 % Blood Gas Hemoglobin 12.5 G/DL Oxygen Delivery Device VENTILATOR Blood Gas Ventilator Setting AC/16/500/PEEP+5 Blood Gas Inspired Oxygen 100 % Test 11/13/16 11/14/16 11/14/16 11/14/16 20:42 00:00 00:37 03:33 Lactic Acid Level 1.2 mmol/L 1.8 mmol/L Nasal Screen MRSA (PCR) NEGATIVE Hemoglobin 12.4 GM/DL 12.2 GM/DL Hematocrit 36.8 % 35.8 % Activated Partial 27.1 SEC 28.0 SEC Thromboplast Time Fibrinogen 169 mg/dL Lipase 91 U/L Blood Type A POSITIVE Antibody Screen NEGATIVE White Blood Count 6.1 TH/MM3 Red Blood Count 4.13 MIL/MM3 Mean Corpuscular Volume 86.7 FL Mean Corpuscular Hemoglobin 29.6 PG Mean Corpuscular Hemoglobin 34.1 % Concent Red Cell Distribution Width 14.8 % Platelet Count 108 TH/MM3 Mean Platelet Volume 7.5 FL Neutrophils (%) (Auto) 80.0 % Lymphocytes (%) (Auto) 12.7 % Monocytes (%) (Auto) 7.2 % Eosinophils (%) (Auto) 0.0 % Basophils (%) (Auto) 0.1 % Neutrophils # (Auto) 4.9 TH/MM3 Lymphocytes # (Auto) 0.8 TH/MM3 Monocytes # (Auto) 0.4 TH/MM3 Eosinophils # (Auto) 0.0 TH/MM3 Basophils # (Auto) 0.0 TH/MM3 CBC Comment DIFF FINAL Differential Comment Prothrombin Time 11.2 SEC Prothromb Time International 1.0 RATIO Ratio Sodium Level 141 MEQ/L Potassium Level 4.1 MEQ/L Chloride Level 106 MEQ/L Carbon Dioxide Level 27.3 MEQ/L Anion Gap 8 MEQ/L Blood Urea Nitrogen 13 MG/DL Creatinine 0.82 MG/DL Estimat Glomerular Filtration 95 ML/MIN Rate Random Glucose 110 MG/DL Calcium Level 7.7 MG/DL Phosphorus Level 1.7 MG/DL Magnesium Level 1.9 MG/DL Total Bilirubin 0.2 MG/DL Aspartate Amino Transf 15 U/L (AST/SGOT) Alanine Aminotransferase 13 U/L (ALT/SGPT) Alkaline Phosphatase 48 U/L Total Protein 5.8 GM/DL Albumin 2.4 GM/DL Valproic Acid (Depakene) Level 87 MCG/ML Test 11/14/16 05:14 Blood Gas Puncture Site RT RADIAL Blood Gas Patient Temperature 98.6 Blood Gas HCO3 24 mmol/L Blood Gas Base Excess 1.1 mmol/L Blood Gas Oxygen Saturation 98 % Arterial Blood pH 7.48 Arterial Blood Partial 33 mmHg Pressure CO2 Arterial Blood Partial 174 mmHg Pressure O2 Arterial Blood Oxygen Content 17.0 Vol % Arterial Blood 1.2 % Carboxyhemoglobin Arterial Blood Methemoglobin 1.0 % Blood Gas Hemoglobin 12.1 G/DL Oxygen Delivery Device VENTILATOR Blood Gas Ventilator Setting AC 20/500/PEEP5 Blood Gas Inspired Oxygen 40 % Imaging Last Impressions Chest X-Ray 11/13/16 1938 Signed Impressions: Service Date/Time: Sunday, November 13, 2016 19:34 - CONCLUSION: 1. No pneumothorax status post placement of right internal jugular central line which has its tip in the superior vena cava. 2. Minimal right basilar atelectasis. Dom Maxwell MD Head CT 11/13/16 1659 Signed Impressions: Service Date/Time: Sunday, November 13, 2016 17:36 - CONCLUSION: Negative for acute process. Silvestre Iniguez MD FACR Objective Remarks GENERAL: Patient is 61 yo intubated and sedated SKIN: Warm and dry. HEAD: Normocephalic. EYES: No scleral icterus. No injection or drainage. NECK: Supple, trachea midline. No JVD or lymphadenopathy. CARDIOVASCULAR: Regular rate and rhythm without murmurs, gallops, or rubs. RESPIRATORY: Breath sounds equal bilaterally. No accessory muscle use. GASTROINTESTINAL: Abdomen soft, non-tender, nondistended. MUSCULOSKELETAL: No cyanosis, or edema. Neuro: Sedated and intubated A/P Assessment and Plan Neuro/Psych: Status epilepticus Seizure disorder Bipolar disorder Anxiety/depression History of EtOH abuse Methadone use On propofol/Versed drips for sedation/analgesia while intubated. Daily sedation vacation Goal of RA SS -2 Follow up on EEG results Home medication is Depakote 250 mg am/500 mg p.m. Level was 101 on admission 87 this morning. On Depakote 500mg IV Q12 Keppra 1000 no grams IV twice a day. Loaded with 1 g in ED. Follow up on Level. CT head at admission reveals no acute findings. Continue thiamine 100 mg daily with history of EtOH use. CV: History of V. tach History of hypertension History of dyslipidemia Monitor HR and BP keep MAP>65mmHg Resp: Acute respiratory failure COPD Continue with vent support keep sat >92% DuoNeb therapy every 6 hours with albuterol nebulizers every 2 hours as needed Spontaneous breathing trials when appropriate GI: Hepatitis B/C History of EtOH induced cirrhosis Chronic pancreatitis NPO. Start TF if remains intuabted today OG tube to low intermittent wall suction Protonix for GI prophylaxis Colace/as needed Senokot for bowel regimen : Monitor renal function, I/O, electrolytes replacement per protocol. d/c NS@84ml/hr Endo: Elevated TSH Noted patient was given 200 g IV Levoxyl in the ED by ED physician. free T4/T3 normal.? Euthyroid sick syndrome SSI with Accu-Cheks every 6 hours to maintain euglycemia Heme: Thrombocytopenia Coags within normal limits Monitor CBC ID: Continue with abx ( Zosyn)monitor or signs of infections ( Fever, WBC) MSK: PT evaluate and treat Access - Right IJ CVL day 1 placed 11/13 Prophylaxis - GI - Protonix 40mg Q12 - DVT - SCD Palliative care consulted Critical Care: The total critical care time was 30 minutes. Time to perform other separately billable procedures was not included in the critical care time. Carlo Mario MD Nov 14, 2016 10:29
[2016-11-14] MEDS: PANTOPRAZOLE SODIUM 40 MG VIAL IV PUSH SCH ×2 (11:27→23:03)
[2016-11-14 14:39] LABS: BLOOD GAS BASE EXCESS -0.1 mmol/L (-2-2); BLOOD GAS CARBOXYHEMOGLOBIN 1.3 % (0-4); BLOOD GAS HCO3 24 mmol/L (22-26); BLOOD GAS O2 HGB SATURATION 95 % (90-100); BLOOD GAS OXYGEN CONTENT 15.7 Vol % (12.0-20.0); BLOOD GAS PCO2 42 mmHg (38-42); BLOOD GAS PO2 88 mmHg (61-120); BLOOD GAS TOTAL HGB 11.8 G/DL (12.0-16.0); CRITICAL VALUE NO; OXYGEN DEVICE VENTILATOR; TEMP CORR TO 98.6; VENT SETTINGS CPAP+5/PS+10
[2016-11-14 14:40] LABS: DRAW SITE RT RADIAL; FIO2 35 %; NUMBER OF ARTERIAL PUNCTURES 1; STAT NO; ULNAR PULSE PRESENT
--- NOTE | 2016-11-14 17:06 | MG ---
cc: ELDER NOBLE M.D. Lab No: [id number] Date: 11/14/16 Age: 61 Sex: M Race: Intermittent generalized tonic-clonic seizures. A 61-year-old man. MEDICATIONS 1. Keppra. 2. Depakote. 3. Fentanyl. 4. Versed. DESCRIPTION OF RECORD Diffuse low amplitude beta rhythms are noted. The recording overall is synchronous and symmetric. No hemisphere asymmetry is seen. No epileptiform or seizure activity is noted. Photic stimulation is performed without significant posterior driving. IMPRESSION Diffuse attenuation of the background, likely medication effect but no focal abnormalities are noted. No seizure activity was seen. Clinical correlation is needed. Elder Noble MD DJM/HIMA /4:35 PM /4:59 PM
[2016-11-14] MEDS: DEXT 5%-NACL 0.9% 1000 ML INJ 1,000 ML IV SCH (17:55)
[2016-11-14] MEDS ORDERED: LORazepam 2 MG/ML VIAL IV ONE (22:30)
[2016-11-14] MEDS ORDERED: chlordiazePOXIDE 25 MG CAP PO ONE (22:30)
[2016-11-15] VITALS (14 sets, daily range): BP systolic 106–148; BP diastolic 58–84; PULSE 72–102; RESP 18–37; TEMP 98–98.5; O2SAT 68–100
[2016-11-15] MEDS: CHLORHEXIDINE GLUCONATE 2 % 1 PACK (2 CLOTHS) TOP SCH (04:00)
[2016-11-15] MEDS ORDERED: chlordiazePOXIDE 25 MG CAP PO ONE (04:30)
[2016-11-15] MEDS ORDERED: LORazepam 2 MG/ML VIAL IV PUSH ONE (04:30)
[2016-11-15] MEDS: RESP: ALBUTEROL 2.5 MG/IPRATROPIUM 0.5 MG NEB (SCH) INH ×4 (04:38→21:05)
[2016-11-15] MEDS: INSULIN NovoLIN REGULAR SUPPLEMENTAL SCALE SQ SCH ×3 (05:32→23:48)
[2016-11-15] MEDS: PIPERACIL-TAZO 4.5 GM PREMIX 100 ML IV SCH (05:32)
[2016-11-15] MEDS: DEXT 5%-NACL 0.9% 1000 ML INJ 1,000 ML IV SCH ×2 (05:35→19:26)
[2016-11-15 07:38] LABS: AUTOMATED NEUTROPHIL # 2.7 TH/MM3 (1.8-7.7); BASOPHIL % 0.3 % (0.0-2.0); EOSINOPHIL % 0.7 % (0.0-4.0); HEMATOCRIT 36.5 % (39.0-51.0); LYMPH % 33.7 % (9.0-44.0); LYMPHOCYTE # 1.6 TH/MM3 (1.0-4.8); MEAN CELL VOLUME 88.2 FL (80.0-100.0); MEAN CORPUSCULAR HEMOGLOBIN 28.1 PG (27.0-34.0); MEAN CORPUSCULAR HGB CONC 31.9 % (32.0-36.0); MONO % 7.9 % (0.0-8.0); NEUT % 57.4 % (16.0-70.0); PLATELET COUNT 73 TH/MM3 (150-450); RED BLOOD COUNT 4.13 MIL/MM3 (4.50-5.90); RED CELL DISTRIBUTION WIDTH 14.5 % (11.6-17.2); WHITE BLOOD COUNT 4.7 TH/MM3 (4.0-11.0)
[2016-11-15 07:40] LABS: HEMO FLAGS AUTO DIFF
[2016-11-15 07:56] LABS: BICARBONATE 30.3 MEQ/L (21.0-32.0); MAGNESIUM 1.7 MG/DL (1.5-2.5); POTASSIUM 3.4 MEQ/L (3.5-5.1)
--- NOTE | 2016-11-15 08:30 | HHI.PR ---
Subjective Remarks awake but confused. was agitated last night and placed on restraints. no seizures over night. afebrile. d/w the RN. Objective Vitals Vital Signs Date Time Temp Pulse Resp B/P Pulse Ox O2 Delivery O2 Flow Rate FiO2 11/15/16 07:46 96 Nasal Cannula 4.00 11/15/16 06:00 77 11/15/16 04:00 98.3 94 22 132/72 68 11/15/16 04:00 78 11/15/16 02:00 87 11/15/16 02:00 93 11/15/16 00:00 72 11/15/16 00:00 98.0 77 18 106/58 100 11/14/16 22:00 77 11/14/16 20:39 99 Nasal Cannula 4.00 11/14/16 20:00 71 11/14/16 20:00 98.1 83 27 122/84 88 11/14/16 18:00 70 11/14/16 16:00 99.2 87 12 105/60 100 11/14/16 16:00 79 11/14/16 15:00 99 Nasal Cannula 4 11/14/16 14:00 86 11/14/16 12:00 35 11/14/16 12:00 99.0 71 8 88/55 98 11/14/16 12:00 71 11/14/16 11:29 100 35 11/14/16 10:00 71 I/O 11/14/16 11/14/16 11/14/16 11/15/16 11/15/16 11/15/16 07:00 15:00 23:00 07:00 15:00 23:00 Intake Total 1190 ml 797 ml 653 ml 487 ml Output Total 1350 ml 950 ml 2000 ml 1000 ml Balance -160 ml -153 ml -1347 ml -513 ml Intake IV Total 1190 ml 797 ml 653 ml 487 ml Output Urine Total 1350 ml 650 ml 2000 ml 1000 ml Gastric Drainage Total 300 ml # Bowel Movements 0 0 Result Diagram: 11/15/1672111/15/16721 Imaging Last Impressions Chest X-Ray 11/13/168 Signed Impressions: Service Date/Time: Sunday, November 13, 2016 19:34 - CONCLUSION: 1. No pneumothorax status post placement of right internal jugular central line which has its tip in the superior vena cava. 2. Minimal right basilar atelectasis. Dom Maxwell MD Head CT 11/13/16 3660 Signed Impressions: Service Date/Time: Sunday, November 13, 2016 17:36 - CONCLUSION: Negative for acute process. Silvestre Iniguez MD FACR Objective Remarks GENERAL: This is a well-nourished, well-developed patient, in no apparent distress. CARDIOVASCULAR: Regular rate and regular rhythm without murmurs, gallops, or rubs. RESPIRATORY: Clear to auscultation. Breath sounds equal bilaterally. No wheezes , rales, or rhonchi. GASTROINTESTINAL: Abdomen soft, non-tender, nondistended. Normal, active bowel sounds MUSCULOSKELETAL: Extremities without clubbing, cyanosis, or edema. NEURO: awake but confused Procedures endotracheal intubation central line placement Medications and IVs Current Medications Lorazepam (Ativan Inj) 2 mg STK-MED ONCE .ROUTE ; Start 11/13/16 at 16:51; Stop 11/13/16 at 16:52; Status DC Sodium Chloride 2 ml 2 ml UNSCH PRN IVF FLUSH AFTER USING IV ACCESS; Start at 17:00; Stop 11/13/16 at 19:35; Status DC Sodium Chloride (NS 1000 ml Inj) 1,000 ml @ 1,000 mls/hr Q1H IV Last administered on 11/13/16 17:52; Start 11/13/16 at 16:59; Stop 11/13/16 at 17:58 ; Status DC Lorazepam (Ativan Inj) 2 mg STK-MED ONCE .ROUTE ; Start 11/13/16 at 17:04; Stop 11/13/16 at 17:05; Status DC Lorazepam (Ativan Inj) 2 mg ONCE ONCE IM Last administered on 11/13/16 17:53 ; Start 11/13/16 at 17:30; Stop 11/13/16 at 17:31; Status DC Lorazepam 2 mg 2 mg ONCE ONCE IV PUSH Last administered on 11/13/16 17:52; Start 11/13/16 at 17:30; Stop 11/13/16 at 17:31; Status DC Levetriacetam 1000 mg/Sodium Chloride 110 ml @ 420 mls/hr BOLUS ONCE IV ; Start 11/13/16 at 17:30; Stop 11/13/16 at 17:45; Status Cancel Levetriacetam (Keppra 1000 Mg Inj) 100 ml @ 400 mls/hr ONCE ONCE IV Last administered on 11/13/16 19:31; Start 11/13/16 at 18:15; Stop 11/13/16 at 18:29 ; Status DC Levothyroxine Sodium (Synthroid Inj) 200 mcg ONCE ONCE IV PUSH Last administered on 11/13/16 21:43; Start 11/13/16 at 18:15; Stop 11/13/16 at 18:16 ; Status DC Hydrocortisone Sodium Succinate (SoluCORTEF INJ) 100 mg ONCE ONCE IV PUSH Last administered on 11/13/16 21:20; Start 11/13/16 at 18:15; Stop 11/13/16 at 18:16; Status DC Succinylcholine Chloride (Quelicin Inj) 200 mg STK-MED ONCE .ROUTE ; Start 11/13 at 18:30; Stop 11/13/16 at 18:31; Status DC Etomidate (Amidate Inj) 20 mg STK-MED ONCE .ROUTE ; Start 11/13/16 at 18:31; Stop 11/13/16 at 18:32; Status DC Succinylcholine Chloride (Quelicin Inj) 100 mg ONCE ONCE IV PUSH Last administered on 11/13/16 19:00; Start 11/13/16 at 18:45; Stop 11/13/16 at 18:46 ; Status DC Etomidate 20 mg 20 mg ONCE ONCE IV PUSH Last administered on 11/13/16 18:59; Start 11/13/16 at 18:45; Stop 11/13/16 at 18:46; Status DC Propofol 100 ml @ 0 mls/hr TITRATE IV Last administered on 11/13/16 18:59; Start 11/13/16 at 18:45; Stop 11/13/16 at 19:34; Status DC Sodium Chloride (NS 1000 ml Inj) 1,000 ml @ 84 mls/hr [id number] IV Last administered on 11/14/16 08:45; Start 11/13/16 at 20:00; Stop 11/14/16 at 11:05; Status DC Sodium Chloride (NS Flush) 2 ml UNSCH PRN IV FLUSH FLUSH AFTER USING IV ACCESS ; Start 11/13/16 at 19:30 Sodium Chloride (NS Flush) 2 ml BID IV FLUSH Last administered on 11/14/16 19: 44; Start 11/13/16 at 21:00 Acetaminophen (Tylenol) 650 mg Q6H PRN PO PAIN 1-10 AND/OR FEVER >101F; Start 11/13/16 at 19:30 Pantoprazole Sodium (Protonix Inj) 40 mg DAILY IV ; Start 11/14/16 at 09:00; Stop 11/14/16 at 09:00; Status DC Artificial Tears (Tears Naturale Opth Soln) 1 drop TID EACH EYE Last administered on 11/14/16 13:00; Start 11/14/16 at 09:00 Ondansetron HCl (Zofran Inj) 4 mg Q6H PRN IV NAUSEA OR VOMITING; Start at 19:30 Docusate Sodium (Colace Liq) 100 mg Q12H G-TUBE Last administered on 11/14/16 08:39; Start 11/13/16 at 19:45 Sennosides (Senna Liq) 17.6 mg Q12H PRN G-TUBE CONSTIPATION; Start 11/13/16 at 19:30 Albuterol/ Ipratropium (Duoneb Neb) 1 ampule Q6HR NEB INH Last administered on 11/15/16 07:45; Start 11/13/16 at 22:00 Albuterol Sulfate (Albuterol Neb) 2.5 mg Q2HR NEB PRN INH SOB/WHEEZING; Start 11/13/16 at 19:30 Miscellaneous Information 1 [id number] Last administered on 11/14/16 00:30; Start 11/13/16 at 19:30 Chlorhexidine Gluconate (Chlorhexidine 2% Cloth) 3 pack Taper DAILY@04 TOP Last administered on 11/15/16 04:00; Start 11/14/16 at 04:00; Stop 11/10/17 at 03 :59 Chlorhexidine Gluconate 3 pack 3 pack UNSCH PRN TOP HYGIENIC CARE; Start at 19:30 Propofol 100 ml @ 0 mls/hr TITRATE IV Last administered on 11/14/16 00:31; Start 11/13/16 at 19:30; Stop 11/14/16 at 14:51; Status DC Fentanyl Citrate 250 ml @ 0 mls/hr TITRATE IV Last administered on 11/13/16t 19 :59; Start 11/13/16 at 19:30; Stop 11/14/16 at 14:51; Status DC Potassium Chloride 100 ml @ 50 mls/hr Q2H PRN IV For Potassium 2.8 - 3.2 mEq/L ; Start 11/13/16 at 19:30 Potassium Chloride 100 ml @ 50 mls/hr Q2H PRN IV For Potassium 2.8 - 3.2 mEq/L ; Start 11/13/16 at 19:30 Potassium Chloride 100 ml @ 25 mls/hr UNSCH PRN IV For Potassium 3.3 - 3.5 mEq /L; Start 11/13/16 at 19:30 Potassium Chloride 100 ml @ 50 mls/hr Q2H PRN IV For Potassium 3.3 - 3.5 mEq/L ; Start 11/13/16 at 19:30 Magnesium Sulfate/ Sodium Chloride (Magnesium Sulfate Inj/NS Inj) 100 ml @ 50 mls/hr UNSCH PRN IV For Magnesium 0.9 - 1.1 mg/dL; Start 11/13/16 at 19:30 Magnesium Oxide 800 mg 800 mg UNSCH PRN PO For Magnesium 1.2 - 1.6 mg/dL; Start 11/13/16 at 19:30 Magnesium Sulfate/ Sodium Chloride (Magnesium Sulfate Inj/NS Inj) 100 ml @ 50 mls/hr UNSCH PRN IV For Magnesium 1.2 - 1.6 mg/dL; Start 11/13/16 at 19:30 Potassium Phosphate 2000 mg 2,000 mg Q4H PRN PO For Phosphorus < 2.5 mg/dL; Start 11/13/16 at 19:30 Sodium Phosphate/ Sodium Chloride (Sodium Phosphate Inj/NS 250 ml Inj) 250 ml @ 42 mls/hr UNSCH PRN IV For Phosphorus < 2.5 mg/dL Last administered on t 11:20; Start 11/13/16 at 19:30 Potassium Phosphate 2000 mg 2,000 mg UNSCH PRN PO/TUBE SEE LABEL COMMENTS; Start 11/13/16 at 19:30 Potassium Phosphate/Sodium Chloride (Potassium Phosphate Inj/NS 250 ml Inj) 260 ml @ 42 mls/hr UNSCH PRN IV SEE LABEL COMMENTS; Start 11/13/16 at 19:30 Chlorhexidine Gluconate (Peridex 0.12% Liq) 15 ml BID@08,20 MT Last administered on 11/14/16 08:39; Start 11/13/16 at 20:00 Dextrose (D50w (Vial) Inj) 25 ml UNSCH PRN IV PUSH HYPOGLYCEMIA-SEE COMMENTS Last administered on 11/15/16 05:32; Start 11/13/16 at 19:30 Glucagon (Glucagon Inj) 1 mg UNSCH PRN OTHER HYPOGLYCEMIA-SEE COMMENTS; Start 11/13/16 at 19:30 Insulin Human Regular (NovoLIN R SUPPLEMENTAL SCALE) 1 ACHS SLIDING SCALE SQ ; Start 11/13/16 at 21:00; Stop 11/13/16 at 21:22; Status DC Sodium Chloride (NS Flush) DAILY IVF ; Start 11/14/16 at 09:00 Sodium Chloride UNSCH PRN IVF SEE PROTOCOL; Start 11/13/16 at 19:45 Midazolam HCl 100 ml @ 0 mls/hr TITRATE IV Last administered on 11/13/16 20:15 ; Start 11/13/16 at 19:45; Stop 11/14/16 at 14:51; Status DC Levetriacetam 100 ml @ 400 mls/hr Q12H IV Last administered on 11/14/16 19:44 ; Start 11/14/16 at 08:00 Valproate Sodium 500 mg/Sodium Chloride 105 ml @ 105 mls/hr Q12HR IV Last administered on 11/14/16 19:44; Start 11/13/16 at 21:00 Fentanyl Citrate 250 ml @ As Directed STK-MED ONCE .ROUTE ; Start 11/13/16 at 19:53; Stop 11/13/16 at 19:54; Status DC Midazolam HCl (Versed Inj) 100 ml @ As Directed STK-MED ONCE .ROUTE ; Start at 20:09; Stop 11/13/16 at 20:10; Status DC Insulin Human Regular 1 1 Q6HR SQ ; Start 11/14/16 at 00:00 Magnesium Sulfate/ Dextrose 100 ml @ 100 mls/hr Q1H IV Last administered on 00:24; Start 11/13/16 at 21:45; Stop 11/13/16 at 23:44; Status DC Potassium Chloride (KCl 20 Meq Premix Inj) 100 ml @ 50 mls/hr BOLUS ONCE IV Last administered on 11/14/16 00:25; Start 11/13/16 at 21:45; Stop 11/13/16 at 23:44; Status DC Hydralazine HCl (Apresoline Inj) 10 mg Q1HR PRN IV PUSH SBP>160, DBP>90; Start 11/13/16 at 21:45 Nitroglycerin (Nitroglycerin 2% Oint) 2 inch Q6HR PRN TOPICAL SBP>160, DBP>90; Start 11/13/16 at 21:45 Labetalol HCl 10 mg 10 mg Q1HR PRN IV PUSH SBP>160, DBP>90, HR>65; Start at 21:45; Stop 11/13/16 at 21:46; Status DC Piperacillin Sod/ Tazobactam Sod 100 ml @ 200 mls/hr Q8H IV Last administered on 11/15/16 05:32; Start 11/13/16 at 23:00 Vancomycin HCl/ Sodium Chloride (Vancomycin Inj/ NS 250 ml Inj) 250 ml @ 250 mls/hr ONCE ONCE IV Last administered on 11/13/16 22:19; Start 11/13/16 at 21 :45; Stop 11/13/16 at 22:44; Status DC Labetalol HCl 10 mg 10 mg Q1HR PRN IV PUSH SBP>160, DBP>90, HR>65; Start at 22:00 Pantoprazole Sodium 80 mg/ Sodium Chloride 35 ml @ 420 mls/hr ONCE ONCE IV Last administered on 11/14/16 00:20; Start 11/14/16 at 00:15; Stop 11/14/16 at 00: 19; Status DC Pantoprazole Sodium 80 mg/ Sodium Chloride 100 ml @ 10 mls/hr Q10H IV Last administered on 11/14/16 09:11; Start 11/14/16 at 00:15; Stop 11/14/16 at 11:05; Status DC Norepinephrine Bitartrate/Sodium Chloride (Levophed Inj/NS 250 ml Inj) 250 ml @ 0 mls/hr TITRATE IV ; Start 11/13/16 at 23:30; Stop 11/14/16 at 14:51; Status DC Terbutaline Sulfate (Brethine Inj) 1 mg UNSCH PRN SQ For Extravasation; Start 11/13/16 at 23:30 Pantoprazole Sodium 40 mg 40 mg Q12H IV PUSH Last administered on 11/14/16 23: 03; Start 11/14/16 at 11:15 Dextrose/Sodium Chloride (D5W-NS 1000 ml Inj) 1,000 ml @ 75 mls/hr [id number] IV Last administered on 11/15/16 05:35; Start 11/14/16 at 18:00 Chlordiazepoxide (Librium) 50 mg NOW ONCE PO Last administered on 11/14/16 23: 02; Start 11/14/16 at 22:30; Stop 11/14/16 at 22:31; Status DC Lorazepam (Ativan Inj) 1 mg NOW ONCE IV Last administered on 11/14/16 23:02; Start 11/14/16 at 22:30; Stop 11/14/16 at 22:31; Status DC Chlordiazepoxide (Librium) 50 mg NOW ONCE PO Last administered on 11/15/16 04: 34; Start 11/15/16 at 04:30; Stop 11/15/16 at 04:31; Status DC Lorazepam (Ativan Inj) 1 mg NOW ONCE IV PUSH Last administered on 11/15/16 04: 34; Start 11/15/16 at 04:30; Stop 11/15/16 at 04:31; Status DC A/P Assessment and Plan A/P Status epilepticus Seizure disorder Bipolar disorder Anxiety/depression History of EtOH abuse Methadone use Home medication is Depakote 250 mg am/500 mg p.m. Level was 101 on admission 87 this morning. On Depakote 500mg IV Q12 on IV Keppra and Valproic acid CT head at admission reveals no acute findings. EEG with no seizure activity Continue thiamine 100 mg daily with history of EtOH use. will consult neurology History of V. 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 free T4/T3 normal.? Euthyroid sick syndrome SSI with Accu-Cheks every 6 hours to maintain euglycemia will repeat TSH within the next 2-3 days Thrombocytopenia Coags within normal limits Monitor CBC hypokalemia; will replace as needed. PT evaluate and treat Prophylaxis - GI - Protonix 40mg Q12 - DVT - SCD Palliative care consulted. transfer to telemetry later today or in am if stable- and after evaluated by neurology. Rob Kwon MD Nov 15, 2016 08:30
[2016-11-15] MEDS: DOCUSATE SODIUM 100 MG/10 ML UDC G-TUBE SCH ×2 (08:47→19:25)
[2016-11-15] MEDS: levETIRAcetam 1000 MG INJ 100 ML IV SCH ×2 (08:48→19:24)
[2016-11-15] MEDS: CHLORHEXIDINE 0.12% (ORAL KIT) 15 ML CUP MT SCH ×2 (08:49→19:25)
[2016-11-15 08:53] LABS: PLATELET ESTIMATE SMEAR LOW (NORMAL); PLATELET MORPHOLOGY NORMAL (NORMAL); SCAN/DIFF AUTO DIFF CONFIRMED
[2016-11-15] MEDS: ARTIFICIAL TEARS OPTH SOLN 15 ML BTL EACH EYE SCH (09:00)
[2016-11-15] MEDS: SODIUM CHLORIDE 0.9% FLUSH 10 ML FLUSH IV FLUSH SCH ×2 (09:00→19:25)
[2016-11-15] MEDS: SODIUM CHLORIDE 0.9% FLUSH 10 ML FLUSH IVF SCH (09:00)
[2016-11-15] MEDS: VALPROATE INJ 500 MG in SODIUM CHLORIDE 0.9% INJ 100 ML IV SCH ×2 (09:00→19:26)
[2016-11-15] MEDS: PANTOPRAZOLE SODIUM 40 MG VIAL IV PUSH SCH ×2 (11:42→23:44)
[2016-11-15] MEDS: LORazepam 2 MG/ML VIAL IV PUSH PRN ×2 (13:22→19:25)
[2016-11-15] MEDS: POTASSIUM CHLOR 20 MEQ PREMIX 100 ML IV PRN (15:15)
--- NOTE | 2016-11-15 19:42 | MB ---
cc: AMMON NOBLE DATE OF CONSULTATION 11/15/2016 HISTORY This is a patient who I saw in April of 2015. History of heart murmur, alcohol use, cirrhosis of liver, history of seizures, bipolar, pancreatitis. He was walking on the sidewalk, had a witnessed fall, hit the back of his head. Had a seizure in the back of the ambulance. Broke his left femur. Just had a surgery. He had been in the hospital many times, seen by Dr. Hussein for alcohol abuse, seizure, found on the side of the road, hyponatremia with a past medical history of bipolar, anxiety, depression, hyperlipidemia, alcohol abuse, alcohol induced seizures, cirrhosis from alcoholism, hepatitis B and C, chronic hepatitis, hypertension, COPD, gout, chronic low back pain. When I saw him in 2014 he was awake and alert. His speech was fluent. He had looked overall well. His RPR was negative. Alcohol level had been 246. MRI of the brain in 2005 was normal. MRA of the brain in January negative. Echocardiogram was normal in 2005. Echocardiogram in 2014 was normal. EEG was negative. He has had several normal EEGs. I recommended some Keppra. I am asked to see him now after he was admitted on the , change in mental status. He came from [facility] home was two days of mental status change. He had some tonic-clonic jerking motions of seizures. He was given 8 mg of IM Ativan, still was having tremors, became less responsive, O2 sats dropped to 86%. CT was negative. TSH was 16. He wound up getting intubated. PAST MEDICAL HISTORY As above. ALLERGIES NO KNOWN ALLERGIES. MEDICATIONS 1. He had been getting Depakote at home 250 in the morning and 500 at night with a level 101. 2. He [facility] also [facility]. He was given some thiamine. His methadone was held. He was noted to have a history of V-tach. His EEG did show some diffuse attenuation. He MEDICATIONS At the prison: 1. Tylenol. 2. Mobic. 3. Ventolin. 4. Zoloft 200 milligrams daily. 5. B1. 6. Keppra 750 milligrams twice a day. 7. Seroquel 75 milligrams twice a day. 8. Trazodone 250 at bedtime. 9. Depakote 250/500. 10. Some inhalers. PHYSICAL EXAMINATION VITAL SIGNS: On exam he is currently afebrile and he has been afebrile on this admission. 132/72, 94. HEENT: Pupils are equal. NECK: There are no carotid bruits. His neck is supple. HEART: Regular rhythm. I do not detect a murmur. NEUROLOGIC: He does awaken and tell me his name. He can follow some commands. He can wiggle his toes and wiggles his hands for me and then falls back to sleep quickly. His speech is fluent. He is not aphasic. Appears to be somewhat over medicated at this time. Medications he is currently on: 1. Ativan p.r.n. 1 milligram. 2. The Keppra on 1000 twice a day. 3. IV Depakote 500 milligrams q.12h. 4. He got Librium today 50 mg this morning and 1 milligram of Ativan and 50 milligrams of Librium yesterday. And 1 milligram of Ativan yesterday. LABORATORY DATA Labs, CBC is essentially normal. ABG is normal at this time. RPR has been negative. Hepatitis C has been positive. Urine drug screen was negative on admission. Depakote was 101, yesterday it was 87. UA was negative. Basic metabolic profile normal. LFTs normal. TSH was 16 with a normal T4. Coags normal. IMAGING He had a CT scan of his brain two days ago that was negative. On review of the films he has got some diffuse atrophy, otherwise negative. His last MRI of the brain showed just some diffuse atrophy in 2014. He had a carotid ultrasound done in 2005 that was normal. IMPRESSION Breakthrough seizure. I would increase his Keppra to 1500 b.i.d. Monitor his Depakote levels. I think as you back off on sedation he will wake up more, I thought he looked overall intact neurologically. We will check a B12 level on him. Have PT ambulate him. I thought overall he looked well neurologically. MD ARNALDO Mayorga/NICHOLAS /11:25 AM /7:21 PM
--- NOTE | 2016-11-15 21:30 | EKG ---
Date Performed: 11/13/2016 Time Performed: 17:18:33 PTAGE: 61 years EKG: SINUS TACHYCARDIA POSSIBLE LEFT ATRIAL ENLARGEMENT NONSPECIFIC T-WAVE ABNORMALITY ABNORMAL RHYTHM ECG PREVIOUS TRACING : 09/04/2016 19.22 DOCTOR: Maik Hendrickson Interpretating Date/Time 11/15/2016 21:26:38
[2016-11-16] VITALS (14 sets, daily range): BP systolic 120–132; BP diastolic 70–84; PULSE 70–82; RESP 20–29; TEMP 98–99.2; O2SAT 91–100
[2016-11-16] MEDS: CHLORHEXIDINE GLUCONATE 2 % 1 PACK (2 CLOTHS) TOP SCH (02:26)
[2016-11-16] MEDS: LORazepam 2 MG/ML VIAL IV PUSH PRN ×2 (02:26→17:25)
[2016-11-16] MEDS: POTASSIUM CHLOR 20 MEQ PREMIX 100 ML IV PRN ×2 (03:04→05:12)
[2016-11-16] MEDS: RESP: ALBUTEROL 2.5 MG/IPRATROPIUM 0.5 MG NEB (SCH) INH ×2 (03:25→08:58)
[2016-11-16] MEDS: INSULIN NovoLIN REGULAR SUPPLEMENTAL SCALE SQ SCH ×4 (05:16→23:04)
[2016-11-16] MEDS: DOCUSATE SODIUM 100 MG/10 ML UDC G-TUBE SCH ×2 (07:45→20:38)
[2016-11-16] MEDS: CHLORHEXIDINE 0.12% (ORAL KIT) 15 ML CUP MT SCH ×2 (08:00→20:00)
[2016-11-16] MEDS: ARTIFICIAL TEARS OPTH SOLN 15 ML BTL EACH EYE SCH ×3 (08:55→17:25)
[2016-11-16] MEDS: levETIRAcetam 1000 MG INJ 100 ML IV SCH ×2 (08:56→20:38)
[2016-11-16] MEDS: SODIUM CHLORIDE 0.9% FLUSH 10 ML FLUSH IVF SCH (08:57)
[2016-11-16] MEDS: VALPROATE INJ 500 MG in SODIUM CHLORIDE 0.9% INJ 100 ML IV SCH ×2 (08:57→20:38)
[2016-11-16] MEDS: SODIUM CHLORIDE 0.9% FLUSH 10 ML FLUSH IV FLUSH SCH ×2 (08:57→20:38)
--- NOTE | 2016-11-16 09:21 | HHI.PR ---
Objective Vital Signs Date Time Temp Pulse Resp B/P Pulse Ox O2 Delivery O2 Flow Rate FiO2 11/16/16 07:05 94 Nasal Cannula 4.00 11/16/16 06:00 75 11/16/16 04:00 82 11/16/16 04:00 98.3 80 22 132/74 100 11/16/16 02:00 80 11/16/16 00:00 75 11/16/16 00:00 98.0 75 20 120/72 91 11/15/16 22:00 77 11/15/16 21:05 96 Nasal Cannula 4.00 11/15/16 20:00 88 11/15/16 20:00 98.5 88 37 148/84 88 11/15/16 18:00 96 11/15/16 16:00 102 11/15/16 16:00 102 28 147/75 96 11/15/16 14:00 94 11/15/16 12:00 85 11/15/16 12:00 85 29 129/78 94 11/15/16 10:00 79 I/O 11/15/16 11/15/16 11/15/16 11/16/16 11/16/16 11/16/16 07:00 15:00 23:00 07:00 15:00 23:00 Intake Total 487 ml 560 ml 663 ml 439 ml Output Total 1000 ml 1600 ml 1000 ml 1250 ml Balance -513 ml -1040 ml -337 ml -811 ml Intake Oral 0 ml IV Total 487 ml 560 ml 663 ml 439 ml Output Urine Total 1000 ml 1600 ml 1000 ml 1250 ml # Bowel Movements 0 0 0 0 Result Diagram: 11/15/1672111/15/162029 Objective Remarks some lethargy follows some commands moves all and sticks out tongue Assessment and Plan Assessment and Plan imp vpa 72 on keppra too and check mri oob looks some better Elder Hillman MD Nov 16, 2016 09:21
--- NOTE | 2016-11-16 10:06 | PD.CONS ---
Consult Service Palliative Care Consult Requested By Dr. Salas Primary Care Physician [facility] Reason for Consultation a. To assist with evaluation and management of symptoms including: confusion , pain b. To assist medical decision maker(s) with: better understanding of current medical conditions; weighing benefits/burdens of medical treatment options; making medical treatment decisions. HPI History of Present Illness Patient is a 61-year-old who has a history significant for but not limited to: seizure disorder, COPD, altered mental status, paroxysmal ventricular tachycardia, medication noncompliance, hepatitis B and C, cirrhosis of the liver , depression, substance abuse disorder (who had been previously Avel[facility] acted in 2014, for being agitated and threatening fixating on obtaining pain medications) , PTSD. Patient presented to the ER on 11/13/2016, after having a seizure and altered mental status while in the [place] waiting room. He has had 2 days of mental status change in [facility]. In the ER: * Temperature is 97.8, pulse is 120, respirations 20, blood pressure is 120/83, satting at 95% on room air. * WBCs 8.8, hemoglobin is 14.5, hematocrit is 35.8 platelet is 108 * Sodium was 136, potassium 3.7, chloride is 32.4, BUN is 16, creatinine is 1.05 , AST is 18, ALTs 18, alkaline phosphatase is 74, albumin is 3.4 * INR is 1.0 and PT 10.6 * Troponin I is less than 0.02 * Urine tox screen is negative for opiates, barbiturates, benzos, cocaine, cannabinoids. Keppra level is pending, valproic acid is 87(WNL). * Urine shows negative for nitrite, leukocyte esterase, and catheter cultures not indicated. * Blood gases shows a pH of 7.29, PCO2 of 55, PO2 of 472, HCO3 of 26. * CT of the head was negative for acute processes. * Chest x-ray shows internal jugular central line placed on the tip of superior vena cava. There is no pneumothorax. Endotracheal tube is in good position. No pulmonary edema noted. Minimal atelectasis. * Patient was given Ativan IM as patient was having a seizure and there was no IV access. Later on an IV access was able to be established. Patient receive another dose of Ativan. Patient was started on Keppra bolus. Depakote level was mildly elevated. * Intensivists was consulted, as patient was having seizures and there was a need to protect airway. Patient has a DNR that appears to be signed by Pardeep peters, however, court appointed guardian box was checked. They have attempted to contact the court appointed guardian with no result. Patient's next of kin was consulted who was brother. Patient's brother stated that he has not seen him in 2 years and doesn't want to make decision to not intubate and wants everything done at the present time. Subsequently patient was intubated. Palliative care was consulted due to unclear medical decision maker. Patient was transferred to the ICU. Pt given thiamine, methadone was held. 11/14/2016- pt in ICU and managed by psychiatric nursing assistant. EEG was ordered and showed diffuse attenuation of the background, but no focal abnormalities, no seizure activity. Pt was able to be extubated, but remains confused and in restraints. Care was transferred to hospitalist. 11/15/2016- neurology was consulted due to altered mental status. Neurology impression is breakthrough seizure, and would increase his Keppra level, monitor his Depakote level. Neurology feels as sedation back off, pt may wake up more. Neurology recommends PT to ambulate, and that pt look well neurologically. On my visit, pt moans, and stirs, open eyes but overall lethargic. Poor historian, could not give hx. Function/Cognitive Trajectory Pt is a resident is a current resident [facility] Pt has hx of etoh dependence. Pt has had a fall in 04/2015 where pt struck head was a trauma alert, and had a left femoral neck fracture. He had ORIF, CT head neg, started on keppra and was send to [facility]. This past year (2015), pt has had 1 hospitalization (03/23/2016) vistis and ER visits(+9 visits) for chronic pain (especially of the left hip) [facility], and as recently as 09/[address] to [address] and something to eat, and something for pain. He was hospitalized from 03/23/16 to 03/25/16 for AMS, seizure disorder, and medication non compliance. Pt would be non verbal, but later opened eyes and tries to get up. Encephalopathy improved with lactulose, ammonia level was monitored. Rifaximin was added. Pt transferred back to [facility]. He had an ER visit this past August 2016 for fall, skin tear. CT of the brain revealed questionable ble left side maxillary fractures. The fall came after pt was going to be discharged from the ER for seizures where pt climbed out of bed and fell. Lac was Dermabond and pt was discharged. Review of Systems ROS Limitations: Clinical Condition Constitutional: COMPLAINS OF: Fatigue Cardiovascular: COMPLAINS OF: Palpitations (tachycardia) Musculoskeletal: COMPLAINS OF: Back pain, Decreased range of motion (left hip) Neurologic: COMPLAINS OF: Seizures Psychiatric: COMPLAINS OF: Anxiety, Agitation Past Family Social History Coded Allergies: No Known Allergies (Verified , 11/13/16) Per patient. Past Medical History Bipolar disorder Gout Chronic low back pain COPD Hypertension hx of pancreatitis Hepatitis B and C History of alcohol abuse Dyslipidemia Seizures Arrhythmia Cirrohosis Past Surgical History Tonsillectomy and adenoidectomy Appendectomy ORIF left femur fracture Reported Medications Duoneb (Ipratropium-Albuterol Neb) 0.5-2.5 Mg/3 Ml Neb 1 Nebule INH QID PRN Divalproex ER (Divalproex Sodium) 250 Mg Bassam 500 Mg PO HS Trazodone (Trazodone HCl) 100 Mg Tab 250 Mg PO HS Seroquel (Quetiapine Fumarate) 50 Mg Tab 75 Mg PO BID Keppra (Levetiracetam) 750 Mg Tab 750 Mg PO BID Calcium + D3 (Calcium Carbonate-Cholecalciferol) 600-200 Mg-Unit Tab 1 Tab PO BID Vitamin B-1 (Thiamine Mononitrate) 100 Mg Tab Zoloft (Sertraline HCl) 100 Mg Tab 200 Mg PO DAILY Ventolin Hfa 18 GM Inh (Albuterol Sulfate) 90 Mcg/Act Aer 2 Puff INH Q4-6H PRN Nasal Mist Inh (Sodium Chloride) 0.9 % Aer 1 [place] EACH NARE Q4H PRN Mobic (Meloxicam) 15 Mg Tab 15 Mg PO DAILY Hydroxyzine HCl 25 Mg Tab 25 Mg PO QID PRN Adams Cough Drops (Throat Lozenges) 1 [place] 1 Lozenge PO Q2H PRN Tylenol (Acetaminophen) 325 Mg Cap 325 Mg PO BID PRN Current Medications Medications (Trade) Dose Ordered Sig/Teja Route Start Time Stop Time Status Last Admin (NS Flush) 2 ml UNSCH PRN IV FLUSH 11/13/16 19:30 (NS Flush) 2 ml BID IV FLUSH 11/13/16 21:00 11/16/16 08:57 (Tylenol) 650 mg Q6H PRN PO 11/13/16 19:30 (Tears Naturale Opth Soln) 1 drop TID EACH EYE 11/14/16 09:00 11/14/16 13:00 (Zofran Inj) 4 mg Q6H PRN IV 11/13/16 19:30 (Colace Liq) 100 mg Q12H G-TUBE 11/13/16 19:45 11/15/16 08:47 (Senna Liq) 17.6 mg Q12H PRN G-TUBE 11/13/16 19:30 Miscellaneous Information 1 Q361D XX 11/13/16 19:30 11/14/16 00:30 (Chlorhexidine 2% Cloth) 3 pack Taper DAILY@04 TOP 11/14/16 04:00 11/10/17 03:59 11/16/16 02:26 Chlorhexidine Gluconate 3 pack 3 pack UNSCH PRN TOP 11/13/16 19:30 Potassium Chloride 100 ml @ 50 mls/hr Q2H PRN IV 11/13/16 19:30 Potassium Chloride 100 ml @ 50 mls/hr Q2H PRN IV 11/13/16 19:30 11/15/16 15:14 Potassium Chloride 100 ml @ 25 mls/hr UNSCH PRN IV 11/13/16 19:30 Potassium Chloride 100 ml @ 50 mls/hr Q2H PRN IV 11/13/16 19:30 11/16/16 05:12 (Magnesium Sulfate Inj/NS Inj) 100 ml @ 50 mls/hr UNSCH PRN IV 11/13/16 19:30 Magnesium Oxide 800 mg 800 mg UNSCH PRN PO 11/13/16 19:30 (Magnesium Sulfate Inj/NS Inj) 100 ml @ 50 mls/hr UNSCH PRN IV 11/13/16 19:30 Potassium Phosphate 2000 mg 2,000 mg Q4H PRN PO 11/13/16 19:30 (Sodium Phosphate Inj/NS 250 ml Inj) 250 ml @ 42 mls/hr UNSCH PRN IV 11/13/16 19:30 11/14/16 11:20 Potassium Phosphate 2000 mg 2,000 mg UNSCH PRN PO/TUBE 11/13/16 19:30 (Potassium Phosphate Inj/NS 250 ml Inj) 260 ml @ 42 mls/hr UNSCH PRN IV 11/13/16 19:30 (Peridex 0.12% Liq) 15 ml BID@08,20 MT 11/13/16 20:00 11/15/16 08:49 (D50w (Vial) Inj) 25 ml UNSCH PRN IV PUSH 11/13/16 19:30 11/15/16 05:32 (Glucagon Inj) 1 mg UNSCH PRN OTHER 11/13/16 19:30 (NS Flush) DAILY IVF 11/14/16 09:00 11/16/16 08:57 Sodium Chloride UNSCH PRN IVF 11/13/16 19:45 Levetriacetam 100 ml @ 400 mls/hr Q12H IV 11/14/16 08:00 11/16/16 08:56 (Depacon Inj/NS Inj) 105 ml @ 105 mls/hr Q12HR IV 11/13/16 21:00 11/16/16 08:57 (NovoLIN R SUPPLEMENTAL SCALE) 1 Q6HR SQ 11/14/16 00:00 (Apresoline Inj) 10 mg Q1HR PRN IV PUSH 11/13/16 21:45 (Nitroglycerin 2% Oint) 2 inch Q6HR PRN TOPICAL 11/13/16 21:45 (Trandate Inj) 10 mg Q1HR PRN IV PUSH 11/13/16 22:00 (Brethine Inj) 1 mg UNSCH PRN SQ 11/13/16 23:30 Pantoprazole Sodium 40 mg 40 mg Q12H IV PUSH 11/14/16 11:15 11/15/16 23:44 (D5W-NS 1000 ml Inj) 1,000 ml @ 75 mls/hr [id number] IV 11/14/16 18:00 11/15/16 19:26 (Ativan Inj) 1 mg Q4H PRN IV PUSH 11/15/16 08:45 11/16/16 02:26 (Vitamin B12 Inj) 1,000 mcg DAILY SQ 11/16/16 10:00 11/19/16 09:59 Family History unable to elicit Substance Use Tobacco: listed as no Alcohol:etoh abuse Prescription med abuse:listed as no Illicits:listed as no Psychosocial History unclear if pt have a guardian? resides in [facility]. Appears to have been estranged from brother for 2 years. Living Will: Never completed Health Care Surrogate: Never completed Durable Power of Dry Kiln Loader: Never completed Documented care wishes: a DNR was complted and dated 10/08/15. The check box for court appointed guardian was check, however, it appears Pardeep Fran signed it. Physical Exam Vital Signs Date Time Temp Pulse Resp B/P Pulse Ox O2 Delivery O2 Flow Rate FiO2 11/16/16 07:05 94 Nasal Cannula 4.00 11/16/16 06:00 75 11/16/16 04:00 82 11/16/16 04:00 98.3 80 22 132/74 100 11/16/16 02:00 80 11/16/16 00:00 75 11/16/16 00:00 98.0 75 20 120/72 91 11/15/16 22:00 77 11/15/16 21:05 96 Nasal Cannula 4.00 11/15/16 20:00 88 11/15/16 20:00 98.5 88 37 148/84 88 11/15/16 18:00 96 11/15/16 16:00 102 11/15/16 16:00 102 28 147/75 96 11/15/16 14:00 94 11/15/16 12:00 85 11/15/16 12:00 85 29 129/78 94 11/15/16 10:00 79 11/15/16 11/16/16 19:00 07:00 Intake Total 560 ml 1102 ml Output Total 1600 ml 2250 ml Balance -1040 ml -1148 ml Intake Oral 0 ml IV Total 560 ml 1102 ml Output Urine Total 1600 ml 2250 ml # Bowel Movements 0 0 Exam CONSTITUTIONAL/GENERAL: This is lethargic, on O2 nasal canula, on restraints. TUBES/LINES/DRAINS: right IJ, kaiser, scds. SKIN: No jaundice, rashes, or lesions. HEAD: Atraumatic. Normocephalic. EYES: Pupils equal and round and reactive. Extraocular motions intact. No scleral icterus. ENT: Hearing grossly normal. Nose without bleeding or purulent drainage. Throat without visible erythema, exudates, masses, or lesions. NECK: Trachea midline. Supple, nontender. No palpable thyroid enlargement or nodularity. CARDIOVASCULAR: Regular rate and rhythm without murmurs, gallops, or rubs. No JVD. Peripheral pulses symmetric. RESPIRATORY/CHEST: Symmetric, unlabored respirations. Clear to auscultation. Breath sounds equal bilaterally. No wheezes, rales, or rhonchi. GASTROINTESTINAL: Abdomen soft, non-tender, nondistended. No hepato-splenomegaly , or palpable masses. No guarding. Bowel sounds present. GENITOURINARY: Without palpable bladder distension. Kaiser catheter in place. MUSCULOSKELETAL: Extremities without clubbing, cyanosis, or edema. No joint tenderness or effusion noted. No calf tenderness. No mottling or clubbing. LYMPHATICS: No palpable cervical or supraclavicular adenopathy. NEUROLOGICAL: Lethargic.. Moves all extremities. PSYCHIATRIC: Diagnostic Tests Laboratory Laboratory Tests Test 11/13/16 11/13/16 11/13/16 11/13/16 17:00 17:03 17:24 20:21 White Blood Count 8.8 TH/MM3 (4.0-11.0) Red Blood Count 5.00 MIL/MM3 (4.50-5.90) Hemoglobin 14.5 GM/DL (13.0-17.0) Hematocrit 44.3 % (39.0-51.0) Mean Corpuscular Volume 88.5 FL (80.0-100.0) Mean Corpuscular Hemoglobin 29.0 PG (27.0-34.0) Mean Corpuscular Hemoglobin 32.7 % Concent (32.0-36.0) Red Cell Distribution Width 14.6 % (11.6-17.2) Platelet Count 130 TH/MM3 (150-450) Mean Platelet Volume 7.7 FL (7.0-11.0) Neutrophils (%) (Auto) 54.6 % (16.0-70.0) Lymphocytes (%) (Auto) 36.1 % (9.0-44.0) Monocytes (%) (Auto) 8.1 % (0.0-8.0) Eosinophils (%) (Auto) 0.9 % (0.0-4.0) Basophils (%) (Auto) 0.3 % (0.0-2.0) Neutrophils # (Auto) 4.8 TH/MM3 (1.8-7.7) Lymphocytes # (Auto) 3.2 TH/MM3 (1.0-4.8) Monocytes # (Auto) 0.7 TH/MM3 (0-0.9) Eosinophils # (Auto) 0.1 TH/MM3 (0-0.4) Basophils # (Auto) 0.0 TH/MM3 (0-0.2) CBC Comment DIFF FINAL Differential Comment Prothrombin Time 10.6 SEC (9.8-11.6) Prothromb Time International 1.0 RATIO Ratio Sodium Level 136 MEQ/L (136-145) Potassium Level 3.7 MEQ/L (3.5-5.1) Chloride Level 98 MEQ/L (98-107) Carbon Dioxide Level 32.4 MEQ/L (21.0-32.0) Anion Gap 6 MEQ/L (5-15) Blood Urea Nitrogen 16 MG/DL (7-18) Creatinine 1.05 MG/DL (0.60-1.30) Estimat Glomerular Filtration 72 ML/MIN (>89) Rate Random Glucose 80 MG/DL (74-106) Calcium Level 8.7 MG/DL (8.5-10.1) Magnesium Level 1.7 MG/DL (1.5-2.5) Total Bilirubin 0.2 MG/DL (0.2-1.0) Aspartate Amino Transf 18 U/L (15-37) (AST/SGOT) Alanine Aminotransferase 18 U/L (12-78) (ALT/SGPT) Alkaline Phosphatase 74 U/L (45-117) Total Creatine Kinase 49 U/L (39-308) Troponin I LESS THAN 0.02 NG/ML (0.02-0.05) Total Protein 8.3 GM/DL (6.4-8.2) Albumin 3.4 GM/DL (3.4-5.0) Free Thyroxine 0.87 NG/DL (0.76-1.46) Free Triiodothyronine (T3) 3.74 PG/ML pg/dL (2.18-3.98) Thyroid Stimulating Hormone 16.000 uIU/ML 3rd Gen (0.358-3.740) Salicylates Level 3.2 MG/DL (2.8-20.0) Acetaminophen Level LESS THAN 2.0 MCG/ML (10.0-30.0) Valproic Acid (Depakene) Level 101 MCG/ML (50-100) Ethyl Alcohol Level LESS THAN 3 MG/DL (0-5) Lactic Acid Level 3.3 mmol/L (0.4-2.0) Ammonia 30 MCMOL/L (11-32) Urine Color YELLOW (YELLW/STRAW) Urine Turbidity CLEAR (CLEAR) Urine pH 5.5 (5.0-8.5) Urine Specific [place] 1.017 (1.002-1.035) Urine Protein NEG mg/dL (NEG-TRACE) Urine Glucose (UA) NEG mg/dL (NEG) Urine Ketones NEG mg/dL (NEG) Urine Occult Blood NEG (NEG) Urine Nitrite NEG (NEG) Urine Bilirubin NEG (NEG) Urine Urobilinogen LESS THAN 2.0 MG/DL (LESS THAN 2.0) Urine Leukocyte Esterase NEG (NEG) Urine WBC LESS THAN 1 /hpf (0-5) Urine Squamous Epithelial <1 /hpf (0-5) Cells Urine Calcium Oxalate Crystals RARE /hpf (NONE) Microscopic Urinalysis Comment CATH-CULT NOT IND Urine Opiates Screen NEG (NEG) Urine Barbiturates Screen NEG (NEG) Urine Amphetamines Screen NEG (NEG) Urine Benzodiazepines Screen NEG (NEG) Urine Cocaine Screen NEG (NEG) Urine Cannabinoids Screen NEG (NEG) Blood Gas Puncture Site RT RADIAL Blood Gas Patient Temperature 98.6 Blood Gas HCO3 26 mmol/L (22-26) Blood Gas Base Excess -0.3 mmol/L (-2-2) Blood Gas Oxygen Saturation 98 % (90-100) Arterial Blood pH 7.29 (7.380-7.420) Arterial Blood Partial 55 mmHg (38-42) Pressure CO2 Arterial Blood Partial 472 mmHG Pressure O2 (61-120) Arterial Blood Oxygen Content 18.5 Vol % (12.0-20.0) Arterial Blood 1.3 % (0-4) Carboxyhemoglobin Arterial Blood Methemoglobin 0.7 % (0-2) Blood Gas Hemoglobin 12.5 G/DL (12.0-16.0) Oxygen Delivery Device VENTILATOR Blood Gas Ventilator Setting AC/16/500/PEEP+5 Blood Gas Inspired Oxygen 100 % Test 11/13/16 11/14/16 11/14/16 11/14/16 20:42 00:00 00:37 03:33 Lactic Acid Level 1.2 mmol/L 1.8 mmol/L (0.4-2.0) (0.4-2.0) Nasal Screen MRSA (PCR) NEGATIVE (NEGATIVE) Hemoglobin 12.4 GM/DL 12.2 GM/DL (13.0-17.0) (13.0-17.0) Hematocrit 36.8 % 35.8 % (39.0-51.0) (39.0-51.0) Activated Partial 27.1 SEC 28.0 SEC Thromboplast Time (24.3-30.1) (24.3-30.1) Fibrinogen 169 mg/dL (227-377) Lipase 91 U/L (73-393) Blood Type A POSITIVE Antibody Screen NEGATIVE White Blood Count 6.1 TH/MM3 (4.0-11.0) Red Blood Count 4.13 MIL/MM3 (4.50-5.90) Mean Corpuscular Volume 86.7 FL (80.0-100.0) Mean Corpuscular Hemoglobin 29.6 PG (27.0-34.0) Mean Corpuscular Hemoglobin 34.1 % Concent (32.0-36.0) Red Cell Distribution Width 14.8 % (11.6-17.2) Platelet Count 108 TH/MM3 (150-450) Mean Platelet Volume 7.5 FL (7.0-11.0) Neutrophils (%) (Auto) 80.0 % (16.0-70.0) Lymphocytes (%) (Auto) 12.7 % (9.0-44.0) Monocytes (%) (Auto) 7.2 % (0.0-8.0) Eosinophils (%) (Auto) 0.0 % (0.0-4.0) Basophils (%) (Auto) 0.1 % (0.0-2.0) Neutrophils # (Auto) 4.9 TH/MM3 (1.8-7.7) Lymphocytes # (Auto) 0.8 TH/MM3 (1.0-4.8) Monocytes # (Auto) 0.4 TH/MM3 (0-0.9) Eosinophils # (Auto) 0.0 TH/MM3 (0-0.4) Basophils # (Auto) 0.0 TH/MM3 (0-0.2) CBC Comment DIFF FINAL Differential Comment Prothrombin Time 11.2 SEC (9.8-11.6) Prothromb Time International 1.0 RATIO Ratio Sodium Level 141 MEQ/L (136-145) Potassium Level 4.1 MEQ/L (3.5-5.1) Chloride Level 106 MEQ/L (98-107) Carbon Dioxide Level 27.3 MEQ/L (21.0-32.0) Anion Gap 8 MEQ/L (5-15) Blood Urea Nitrogen 13 MG/DL (7-18) Creatinine 0.82 MG/DL (0.60-1.30) Estimat Glomerular Filtration 95 ML/MIN (>89) Rate Random Glucose 110 MG/DL (74-106) Calcium Level 7.7 MG/DL (8.5-10.1) Phosphorus Level 1.7 MG/DL (2.5-4.9) Magnesium Level 1.9 MG/DL (1.5-2.5) Total Bilirubin 0.2 MG/DL (0.2-1.0) Aspartate Amino Transf 15 U/L (15-37) (AST/SGOT) Alanine Aminotransferase 13 U/L (12-78) (ALT/SGPT) Alkaline Phosphatase 48 U/L (45-117) Total Protein 5.8 GM/DL (6.4-8.2) Albumin 2.4 GM/DL (3.4-5.0) Valproic Acid (Depakene) Level 87 MCG/ML (50-100) Test 11/14/16 11/14/16 11/15/16 11/15/16 05:14 14:28 07:22 20:30 Blood Gas Puncture Site RT RADIAL RT RADIAL Blood Gas Patient Temperature 98.6 98.6 Blood Gas HCO3 24 mmol/L 24 mmol/L (22-26) (22-26) Blood Gas Base Excess 1.1 mmol/L -0.1 mmol/L (-2-2) (-2-2) Blood Gas Oxygen Saturation 98 % (90-100) 95 % (90-100) Arterial Blood pH 7.48 7.38 (7.380-7.420) (7.380-7.420) Arterial Blood Partial 33 mmHg (38-42) 42 mmHg (38-42) Pressure CO2 Arterial Blood Partial 174 mmHg 88 mmHg Pressure O2 (61-120) (61-120) Arterial Blood Oxygen Content 17.0 Vol % 15.7 Vol % (12.0-20.0) (12.0-20.0) Arterial Blood 1.2 % (0-4) 1.3 % (0-4) Carboxyhemoglobin Arterial Blood Methemoglobin 1.0 % (0-2) 1.0 % (0-2) Blood Gas Hemoglobin 12.1 G/DL 11.8 G/DL (12.0-16.0) (12.0-16.0) Oxygen Delivery Device VENTILATOR VENTILATOR Blood Gas Ventilator Setting AC CPAP+5/PS+10 20/500/PEEP5 Blood Gas Inspired Oxygen 40 % 35 % White Blood Count 4.7 TH/MM3 (4.0-11.0) Red Blood Count 4.13 MIL/MM3 (4.50-5.90) Hemoglobin 11.6 GM/DL (13.0-17.0) Hematocrit 36.5 % (39.0-51.0) Mean Corpuscular Volume 88.2 FL (80.0-100.0) Mean Corpuscular Hemoglobin 28.1 PG (27.0-34.0) Mean Corpuscular Hemoglobin 31.9 % Concent (32.0-36.0) Red Cell Distribution Width 14.5 % (11.6-17.2) Platelet Count 73 TH/MM3 (150-450) Mean Platelet Volume 7.6 FL (7.0-11.0) Neutrophils (%) (Auto) 57.4 % (16.0-70.0) Lymphocytes (%) (Auto) 33.7 % (9.0-44.0) Monocytes (%) (Auto) 7.9 % (0.0-8.0) Eosinophils (%) (Auto) 0.7 % (0.0-4.0) Basophils (%) (Auto) 0.3 % (0.0-2.0) Neutrophils # (Auto) 2.7 TH/MM3 (1.8-7.7) Lymphocytes # (Auto) 1.6 TH/MM3 (1.0-4.8) Monocytes # (Auto) 0.4 TH/MM3 (0-0.9) Eosinophils # (Auto) 0.0 TH/MM3 (0-0.4) Basophils # (Auto) 0.0 TH/MM3 (0-0.2) CBC Comment AUTO DIFF Differential Comment AUTO DIFF CONFIRMED Platelet Estimate LOW (NORMAL) Platelet Morphology Comment NORMAL (NORMAL) Sodium Level 142 MEQ/L (136-145) Potassium Level 3.4 MEQ/L 3.4 MEQ/L (3.5-5.1) (3.5-5.1) Chloride Level 104 MEQ/L (98-107) Carbon Dioxide Level 30.3 MEQ/L (21.0-32.0) Anion Gap 8 MEQ/L (5-15) Blood Urea Nitrogen 9 MG/DL (7-18) Creatinine 0.75 MG/DL (0.60-1.30) Estimat Glomerular Filtration 106 ML/MIN Rate (>89) Random Glucose 84 MG/DL (74-106) Calcium Level 7.7 MG/DL (8.5-10.1) Phosphorus Level 3.4 MG/DL (2.5-4.9) Magnesium Level 1.7 MG/DL (1.5-2.5) Vitamin B12 Level 259 PG/ML (193-986) Valproic Acid (Depakene) Level 77 MCG/ML (50-100) Result Diagram: 11/15/16 0722 11/15/162029 Microbiology Microbiology Date/Time Procedure Status Source Growth 11/13/16 17:00 Aerobic Blood Culture - Preliminary Resulted Blood Peripheral NO GROWTH IN 2 DAYS 11/13/16 17:00 Anaerobic Blood Culture - Preliminary Resulted Blood Peripheral NO GROWTH IN 2 DAYS 11/13/16 17:05 Aerobic Blood Culture - Preliminary Resulted Blood Peripheral NO GROWTH IN 2 DAYS 11/13/16 17:05 Anaerobic Blood Culture - Preliminary Resulted Blood Peripheral NO GROWTH IN 2 DAYS Imaging Last Impressions Chest X-Ray 11/13/16 193 Signed Impressions: Service Date/Time: Sunday, November 13, 2016 19:34 - CONCLUSION: 1. No pneumothorax status post placement of right internal jugular central line which has its tip in the superior vena cava. 2. Minimal right basilar atelectasis. Dom Maxwell MD Head CT 11/13/16 1659 Signed Impressions: Service Date/Time: Sunday, November 13, 2016 17:36 - CONCLUSION: Negative for acute process. Silvestre Iniguez MD FACR Patient/Family Conference Issues Discussed: * Palliative care role, purpose, approach * Additional medical, psychosocial, and spiritual history * Patients general health, functional status, and cognitive changes in the months leading up to the current hospitalization * Patient/family understanding of the current medical problems * Patient/family understanding of prognosis * Patients goals of care as best understood from advance directives and/or conversations and/or values * Current medical treatment options and benefits/burdens of those options * Likely scenarios comparing ongoing aggressive care with a transition to comfort measures only * Questions answered to the best of my ability * Palliative care contact information provided Assessment and Plan Disease Oriented Problem List: (1) Respiratory failure Comment: extubated, and appears to have resolve. Currently still aspiration risk. (2) Encephalopathy Comment: multifactorial. substance abuse, hx of seizures, cirrohsis. (3) Seizure disorder Comment: neuro consulted (4) Cirrhosis of liver (5) COPD (chronic obstructive pulmonary disease) (6) Hepatitis B and C (7) Antisocial personality disorder (8) Bipolar disorder Symptom Scale: (1) Pain 0-10 Scale: Unable to quantify Comment: chronic left hip pain, previous femur fracture. Had been on methadone , being held currently. (2) Agitation 0-10 Scale: Unable to quantify Comment: due to encephalopathy (3) Confusion 0-10 Scale: Unable to quantify Comment: currently on restraints. Currently encepholopathic. Pertinent Non-Medical Issues Psychosocial: Spiritual: Legal: Ethical issues impacting care: Prognosis 61 year old. Does not appears cirrohsis ( Pt's is INR 1.1, albumin 3.4 and criteria INR >1.5 and Albumin < 2.5) or COPD (he was extubated relatively quickly) is end stage at this point. Pt main challenge is encephalopathy, seizures, chronic pain and compliance. If those are not well controlled, at risk of multiple hospitalizations, which has been the case. Prognosis is guarded, but I cannot definitely state pt's prognosis is less than 6 months for now. Will need to see how pt clinically evolves during this hospitalization and his ability to take nutrition. He is also relatively young. Code Status: Alternative Code Plan == capacity: lethargic none == health care decision maker: unsure if pt has a current court appointed guardian? Consult case management for assistance. As we have been unable to contact guardian, if pt indeed has one, medical team the closest reachable next of kin who is the patient brother. == code status: intubation only. Pt has a DNR, but there was a court appointed guardian that was checked. Code status was reviewed with brother who stated intubation only. == goals of care: will review once health care decision maker is clarified. == pain. - chronic pain left hip, previous femur fracture. Had been on methadone which currently is held. == palliative care will continue follow as clinical condition evolves. Thank you for the opportunity to participate in the care of Mr. Peters. Attestation To help prompt me to consider important information that might be impacting today's encounter and assessment, information from prior notes written by myself or my colleagues may have been "brought forward" into today's note. My signature on this note, however, is an attestation that I personally performed the exam, history, and/or decision-making noted today, and, unless otherwise indicated, the interactions with patient, family, and staff as well as the review of records all occurred today. I also attest that the listed assessment and stated plan reflect my best clinical judgment today based on the combination of historical information, prior notes, and today's exam/ interactions. When time spent is documented, it refers only to time spent today by the signer, or if indicated, combined time spent today by collaborating physician/nurse practitioner. Isaiah Brian MD Nov 16, 2016 10:06
[2016-11-16] MEDS: DEXT 5%-NACL 0.9% 1000 ML INJ 1,000 ML IV SCH ×2 (10:56→23:02)
[2016-11-16] MEDS: PANTOPRAZOLE SODIUM 40 MG VIAL IV PUSH SCH ×2 (10:56→23:02)
[2016-11-16] MEDS: CYANOCOBALAMIN 1000 MCG/ML VIAL SQ SCH (10:58)
--- NOTE | 2016-11-16 12:13 | HHI.PR ---
Subjective Remarks awake but still confused. agitated at times- on restraints. no seizure or any other acute issues over night. d/w the RN. Objective Vitals Vital Signs Date Time Temp Pulse Resp B/P Pulse Ox O2 Delivery O2 Flow Rate FiO2 11/16/16 10:00 79 11/16/16 08:00 98.5 79 29 130/84 100 11/16/16 08:00 79 11/16/16 07:05 94 Nasal Cannula 4.00 11/16/16 06:00 75 11/16/16 04:00 82 11/16/16 04:00 98.3 80 22 132/74 100 11/16/16 02:00 80 11/16/16 00:00 75 11/16/16 00:00 98.0 75 20 120/72 91 11/15/16 22:00 77 11/15/16 21:05 96 Nasal Cannula 4.00 11/15/16 20:00 88 11/15/16 20:00 98.5 88 37 148/84 88 11/15/16 18:00 96 11/15/16 16:00 102 11/15/16 16:00 102 28 147/75 96 11/15/16 14:00 94 I/O 11/15/16 11/15/16 11/15/16 11/16/16 11/16/16 11/16/16 07:00 15:00 23:00 07:00 15:00 23:00 Intake Total 487 ml 560 ml 663 ml 439 ml Output Total 1000 ml 1600 ml 1000 ml 1250 ml Balance -513 ml -1040 ml -337 ml -811 ml Intake Oral 0 ml IV Total 487 ml 560 ml 663 ml 439 ml Output Urine Total 1000 ml 1600 ml 1000 ml 1250 ml # Bowel Movements 0 0 0 0 Result Diagram: 11/15/1672111/15/162029 Imaging Last Impressions Chest X-Ray 11/13/161937 Signed Impressions: Service Date/Time: Sunday, November 13, 2016 19:34 - CONCLUSION: 1. No pneumothorax status post placement of right internal jugular central line which has its tip in the superior vena cava. 2. Minimal right basilar atelectasis. Dom Maxwell MD Head CT 11/13/16 5333 Signed Impressions: Service Date/Time: Sunday, November 13, 2016 17:36 - CONCLUSION: Negative for acute process. Silvestre Iniguez MD FACR Objective Remarks GENERAL: This is a well-nourished, well-developed patient, in no apparent distress. CARDIOVASCULAR: Regular rate and regular rhythm without murmurs, gallops, or rubs. RESPIRATORY: Clear to auscultation. Breath sounds equal bilaterally. No wheezes , rales, or rhonchi. GASTROINTESTINAL: Abdomen soft, non-tender, nondistended. Normal, active bowel sounds MUSCULOSKELETAL: Extremities without clubbing, cyanosis, or edema. NEURO: awake but confused Procedures endotracheal intubation central line placement Medications and IVs Current Medications Lorazepam (Ativan Inj) 2 mg STK-MED ONCE .ROUTE ; Start 11/13/16 at 16:51; Stop 11/13/16 at 16:52; Status DC Sodium Chloride 2 ml 2 ml UNSCH PRN IVF FLUSH AFTER USING IV ACCESS; Start at 17:00; Stop 11/13/16 at 19:35; Status DC Sodium Chloride (NS 1000 ml Inj) 1,000 ml @ 1,000 mls/hr Q1H IV Last administered on 11/13/16 17:52; Start 11/13/16 at 16:59; Stop 11/13/16 at 17:58 ; Status DC Lorazepam (Ativan Inj) 2 mg STK-MED ONCE .ROUTE ; Start 11/13/16 at 17:04; Stop 11/13/16 at 17:05; Status DC Lorazepam (Ativan Inj) 2 mg ONCE ONCE IM Last administered on 11/13/16 17:53 ; Start 11/13/16 at 17:30; Stop 11/13/16 at 17:31; Status DC Lorazepam 2 mg 2 mg ONCE ONCE IV PUSH Last administered on 11/13/16 17:52; Start 11/13/16 at 17:30; Stop 11/13/16 at 17:31; Status DC Levetriacetam 1000 mg/Sodium Chloride 110 ml @ 420 mls/hr BOLUS ONCE IV ; Start 11/13/16 at 17:30; Stop 11/13/16 at 17:45; Status Cancel Levetriacetam (Keppra 1000 Mg Inj) 100 ml @ 400 mls/hr ONCE ONCE IV Last administered on 11/13/16 19:31; Start 11/13/16 at 18:15; Stop 11/13/16 at 18:29 ; Status DC Levothyroxine Sodium (Synthroid Inj) 200 mcg ONCE ONCE IV PUSH Last administered on 11/13/16 21:43; Start 11/13/16 at 18:15; Stop 11/13/16 at 18:16 ; Status DC Hydrocortisone Sodium Succinate (SoluCORTEF INJ) 100 mg ONCE ONCE IV PUSH Last administered on 11/13/16 21:20; Start 11/13/16 at 18:15; Stop 11/13/16 at 18:16; Status DC Succinylcholine Chloride (Quelicin Inj) 200 mg STK-MED ONCE .ROUTE ; Start 11/13 at 18:30; Stop 11/13/16 at 18:31; Status DC Etomidate (Amidate Inj) 20 mg STK-MED ONCE .ROUTE ; Start 11/13/16 at 18:31; Stop 11/13/16 at 18:32; Status DC Succinylcholine Chloride (Quelicin Inj) 100 mg ONCE ONCE IV PUSH Last administered on 11/13/16 19:00; Start 11/13/16 at 18:45; Stop 11/13/16 at 18:46 ; Status DC Etomidate 20 mg 20 mg ONCE ONCE IV PUSH Last administered on 11/13/16 18:59; Start 11/13/16 at 18:45; Stop 11/13/16 at 18:46; Status DC Propofol 100 ml @ 0 mls/hr TITRATE IV Last administered on 11/13/16 18:59; Start 11/13/16 at 18:45; Stop 11/13/16 at 19:34; Status DC Sodium Chloride (NS 1000 ml Inj) 1,000 ml @ 84 mls/hr [id number] IV Last administered on 11/14/16 08:45; Start 11/13/16 at 20:00; Stop 11/14/16 at 11:05; Status DC Sodium Chloride (NS Flush) 2 ml UNSCH PRN IV FLUSH FLUSH AFTER USING IV ACCESS ; Start 11/13/16 at 19:30 Sodium Chloride (NS Flush) 2 ml BID IV FLUSH Last administered on 11/16/16 08: 57; Start 11/13/16 at 21:00 Acetaminophen (Tylenol) 650 mg Q6H PRN PO PAIN 1-10 AND/OR FEVER >101F; Start 11/13/16 at 19:30 Pantoprazole Sodium (Protonix Inj) 40 mg DAILY IV ; Start 11/14/16 at 09:00; Stop 11/14/16 at 09:00; Status DC Artificial Tears (Tears Naturale Opth Soln) 1 drop TID EACH EYE Last administered on 11/14/16 13:00; Start 11/14/16 at 09:00 Ondansetron HCl (Zofran Inj) 4 mg Q6H PRN IV NAUSEA OR VOMITING; Start at 19:30 Docusate Sodium (Colace Liq) 100 mg Q12H G-TUBE Last administered on 11/15/16 08:47; Start 11/13/16 at 19:45 Sennosides (Senna Liq) 17.6 mg Q12H PRN G-TUBE CONSTIPATION; Start 11/13/16 at 19:30 Albuterol/ Ipratropium (Duoneb Neb) 1 ampule Q6HR NEB INH Last administered on 11/16/16 08:58; Start 11/13/16 at 22:00 Albuterol Sulfate (Albuterol Neb) 2.5 mg Q2HR NEB PRN INH SOB/WHEEZING; Start 11/13/16 at 19:30 Miscellaneous Information 1 [id number] Last administered on 11/14/16 00:30; Start 11/13/16 at 19:30 Chlorhexidine Gluconate (Chlorhexidine 2% Cloth) 3 pack Taper DAILY@04 TOP Last administered on 11/16/16 02:26; Start 11/14/16 at 04:00; Stop 11/10/17 at 03 :59 Chlorhexidine Gluconate 3 pack 3 pack UNSCH PRN TOP HYGIENIC CARE; Start at 19:30 Propofol 100 ml @ 0 mls/hr TITRATE IV Last administered on 11/14/16 00:31; Start 11/13/16 at 19:30; Stop 11/14/16 at 14:51; Status DC Fentanyl Citrate 250 ml @ 0 mls/hr TITRATE IV Last administered on 11/13/16 19 :59; Start 11/13/16 at 19:30; Stop 11/14/16 at 14:51; Status DC Potassium Chloride 100 ml @ 50 mls/hr Q2H PRN IV For Potassium 2.8 - 3.2 mEq/L ; Start 11/13/16 at 19:30 Potassium Chloride 100 ml @ 50 mls/hr Q2H PRN IV For Potassium 2.8 - 3.2 mEq/ L Last administered on 11/15/16 15:14; Start 11/13/16 at 19:30 Potassium Chloride 100 ml @ 25 mls/hr UNSCH PRN IV For Potassium 3.3 - 3.5 mEq /L; Start 11/13/16 at 19:30 Potassium Chloride 100 ml @ 50 mls/hr Q2H PRN IV For Potassium 3.3 - 3.5 mEq/ L Last administered on 11/16/16 05:12; Start 11/13/16 at 19:30 Magnesium Sulfate/ Sodium Chloride (Magnesium Sulfate Inj/NS Inj) 100 ml @ 50 mls/hr UNSCH PRN IV For Magnesium 0.9 - 1.1 mg/dL; Start 11/13/16 at 19:30 Magnesium Oxide 800 mg 800 mg UNSCH PRN PO For Magnesium 1.2 - 1.6 mg/dL; Start 11/13/16 at 19:30 Magnesium Sulfate/ Sodium Chloride (Magnesium Sulfate Inj/NS Inj) 100 ml @ 50 mls/hr UNSCH PRN IV For Magnesium 1.2 - 1.6 mg/dL; Start 11/13/16 at 19:30 Potassium Phosphate 2000 mg 2,000 mg Q4H PRN PO For Phosphorus < 2.5 mg/dL; Start 11/13/16 at 19:30 Sodium Phosphate/ Sodium Chloride (Sodium Phosphate Inj/NS 250 ml Inj) 250 ml @ 42 mls/hr UNSCH PRN IV For Phosphorus < 2.5 mg/dL Last administered on 11:20; Start 11/13/16 at 19:30 Potassium Phosphate 2000 mg 2,000 mg UNSCH PRN PO/TUBE SEE LABEL COMMENTS; Start 11/13/16 at 19:30 Potassium Phosphate/Sodium Chloride (Potassium Phosphate Inj/NS 250 ml Inj) 260 ml @ 42 mls/hr UNSCH PRN IV SEE LABEL COMMENTS; Start 11/13/16 at 19:30 Chlorhexidine Gluconate (Peridex 0.12% Liq) 15 ml BID@08,20 MT Last administered on 11/15/16 08:49; Start 11/13/16 at 20:00 Dextrose (D50w (Vial) Inj) 25 ml UNSCH PRN IV PUSH HYPOGLYCEMIA-SEE COMMENTS Last administered on 11/15/16 05:32; Start 11/13/16 at 19:30 Glucagon (Glucagon Inj) 1 mg UNSCH PRN OTHER HYPOGLYCEMIA-SEE COMMENTS; Start 11/13/16 at 19:30 Insulin Human Regular (NovoLIN R SUPPLEMENTAL SCALE) 1 ACHS SLIDING SCALE SQ ; Start 11/13/16 at 21:00; Stop 11/13/16 at 21:22; Status DC Sodium Chloride (NS Flush) DAILY IVF Last administered on 11/16/16 08:57; Start 11/14/16 at 09:00 Sodium Chloride UNSCH PRN IVF SEE PROTOCOL; Start 11/13/16 at 19:45 Midazolam HCl 100 ml @ 0 mls/hr TITRATE IV Last administered on 11/13/16 20:15 ; Start 11/13/16 at 19:45; Stop 11/14/16 at 14:51; Status DC Levetriacetam 100 ml @ 400 mls/hr Q12H IV Last administered on 11/16/16 08:56 ; Start 11/14/16 at 08:00 Valproate Sodium 500 mg/Sodium Chloride 105 ml @ 105 mls/hr Q12HR IV Last administered on 11/16/16 08:57; Start 11/13/16 at 21:00 Fentanyl Citrate 250 ml @ As Directed STK-MED ONCE .ROUTE ; Start 11/13/16 at 19:53; Stop 11/13/16 at 19:54; Status DC Midazolam HCl (Versed Inj) 100 ml @ As Directed STK-MED ONCE .ROUTE ; Start at 20:09; Stop 11/13/16 at 20:10; Status DC Insulin Human Regular 1 1 Q6HR SQ ; Start 11/14/16 at 00:00 Magnesium Sulfate/ Dextrose 100 ml @ 100 mls/hr Q1H IV Last administered on 00:24; Start 11/13/16 at 21:45; Stop 11/13/16 at 23:44; Status DC Potassium Chloride (KCl 20 Meq Premix Inj) 100 ml @ 50 mls/hr BOLUS ONCE IV Last administered on 11/14/16 00:25; Start 11/13/16 at 21:45; Stop 11/13/16 at 23:44; Status DC Hydralazine HCl (Apresoline Inj) 10 mg Q1HR PRN IV PUSH SBP>160, DBP>90; Start 11/13/16 at 21:45 Nitroglycerin (Nitroglycerin 2% Oint) 2 inch Q6HR PRN TOPICAL SBP>160, DBP>90; Start 11/13/16 at 21:45 Labetalol HCl 10 mg 10 mg Q1HR PRN IV PUSH SBP>160, DBP>90, HR>65; Start at 21:45; Stop 11/13/16 at 21:46; Status DC Piperacillin Sod/ Tazobactam Sod 100 ml @ 200 mls/hr Q8H IV Last administered on 11/15/16 05:32; Start 11/13/16 at 23:00; Stop 11/15/16 at 08:32; Status DC Vancomycin HCl/ Sodium Chloride (Vancomycin Inj/ NS 250 ml Inj) 250 ml @ 250 mls/hr ONCE ONCE IV Last administered on 11/13/16 22:19; Start 11/13/16 at 21 :45; Stop 11/13/16 at 22:44; Status DC Labetalol HCl 10 mg 10 mg Q1HR PRN IV PUSH SBP>160, DBP>90, HR>65; Start at 22:00 Pantoprazole Sodium 80 mg/ Sodium Chloride 35 ml @ 420 mls/hr ONCE ONCE IV Last administered on 11/14/16 00:20; Start 11/14/16 at 00:15; Stop 11/14/16 at 00: 19; Status DC Pantoprazole Sodium 80 mg/ Sodium Chloride 100 ml @ 10 mls/hr Q10H IV Last administered on 11/14/16 09:11; Start 11/14/16 at 00:15; Stop 11/14/16 at 11:05; Status DC Norepinephrine Bitartrate/Sodium Chloride (Levophed Inj/NS 250 ml Inj) 250 ml @ 0 mls/hr TITRATE IV ; Start 11/13/16 at 23:30; Stop 11/14/16 at 14:51; Status DC Terbutaline Sulfate (Brethine Inj) 1 mg UNSCH PRN SQ For Extravasation; Start 11/13/16 at 23:30 Pantoprazole Sodium 40 mg 40 mg Q12H IV PUSH Last administered on 11/16/16 10: 56; Start 11/14/16 at 11:15 Dextrose/Sodium Chloride (D5W-NS 1000 ml Inj) 1,000 ml @ 75 mls/hr [id number] IV Last administered on 11/16/16 10:56; Start 11/14/16 at 18:00 Chlordiazepoxide (Librium) 50 mg NOW ONCE PO Last administered on 11/14/16 23: 02; Start 11/14/16 at 22:30; Stop 11/14/16 at 22:31; Status DC Lorazepam (Ativan Inj) 1 mg NOW ONCE IV Last administered on 11/14/16 23:02; Start 11/14/16 at 22:30; Stop 11/14/16 at 22:31; Status DC Chlordiazepoxide (Librium) 50 mg NOW ONCE PO Last administered on 11/15/16 04: 34; Start 11/15/16 at 04:30; Stop 11/15/16 at 04:31; Status DC Lorazepam (Ativan Inj) 1 mg NOW ONCE IV PUSH Last administered on 11/15/16 04: 34; Start 11/15/16 at 04:30; Stop 11/15/16 at 04:31; Status DC Lorazepam (Ativan Inj) 1 mg Q4H PRN IV PUSH ANXIETY AND/OR AGITATION Last administered on 11/16/16 02:26; Start 11/15/16 at 08:45 Cyanocobalamin (Vitamin B12 Inj) 1,000 mcg DAILY SQ Last administered on 10:58; Start 11/16/16 at 10:00; Stop 11/19/16 at 09:59 A/P Assessment and Plan A/P Status epilepticus Seizure disorder Bipolar disorder Anxiety/depression History of EtOH abuse Methadone use on IV Keppra and Valproic acid CT head at admission reveals no acute findings. EEG with no seizure activity MRI brain - pending. Continue thiamine 100 mg daily with history of EtOH use. neurology following. History of V. tach History of hypertension History of dyslipidemia hydralazine prn. Monitor HR and BP . Acute respiratory failure- s/p intubation/ extubation COPD Continue with oxygen as needed to keep sat >92% neb treatment Hepatitis B/C History of EtOH induced cirrhosis Chronic pancreatitis consulted ST. Protonix for GI prophylaxis Elevated TSH Noted patient was given 200 g IV Levoxyl in the ED by ED physician. SSI with Accu-Cheks every 6 hours to maintain euglycemia will repeat TSH . Thrombocytopenia Coags within normal limits Monitor CBC hypokalemia; replaced- will monitor. PT evaluate and treat Prophylaxis - GI - Protonix 40mg Q12 - DVT - SCD Palliative care consulted. transfer to telemetry - soon if remains stable. d/w the RN. Rob Kwon MD Nov 16, 2016 12:13
--- NOTE | 2016-11-16 16:26 | RADRPT ---
EXAM DATE/TIME: 11/16/2016 15:27 [facility] COMPARISON: MRI BRAIN W & W/O CONTRAST, February 05, 2015, 9:27. INDICATIONS : Altered mental status. MEDICAL HISTORY : Chronic obstructive pulmonary disease. Hypertension. Hypercholesterolemia. Bipolar, Hep B &C, ETOH, SURGICAL HISTORY : Tonsillectomy. Appendectomy. ORIF ENCOUNTER: Initial ACUITY: 3 day PAIN SCORE: Nonresponsive. LOCATION: Bilateral cranial TECHNIQUE: Multiplanar, multisequence MRI of the brain was performed without contrast. FINDINGS: CEREBRUM: The ventricles are normal for age. No evidence of midline shift, mass lesion, hemorrhage or acute in farction. No extraaxial fluid collections are seen. The pituitary gland and suprasellar cistern are normal in configuration. WHITE MATTER: No significant signal abnormalities are seen in the white matter. POSTERIOR FOSSA: The cerebellum and brainstem are intact. The 4th ventricle is midline. The cerebellopontine angle is unremarkable. The cerebellar tonsils are normal in position. DIFFUSION IMAGING: No focal areas of restricted diffusion are seen. No evidence of acute infarction. EXTRACRANIAL: The visualized portions of the orbits and paranasal sinuses are unremarkable. CONCLUSION: 1. No acute intracranial abnormality. Clem Iniguez MD on November 16, 2016 at 16:23 Board Certified Radiologist. This report was verified electronically.
[2016-11-17] VITALS (12 sets, daily range): BP systolic 103–143; BP diastolic 70–82; PULSE 67–82; RESP 19–26; TEMP 98–98.6; O2SAT 93–100
[2016-11-17] MEDS: LORazepam 2 MG/ML VIAL IV PUSH PRN ×2 (00:21→04:10)
[2016-11-17 03:55] LABS: AUTOMATED NEUTROPHIL # 3.3 TH/MM3 (1.8-7.7); BASOPHIL % 0.2 % (0.0-2.0); EOSINOPHIL # 0.1 TH/MM3 (0-0.4); EOSINOPHIL % 2.6 % (0.0-4.0); HEMATOCRIT 37.2 % (39.0-51.0); LYMPH % 21.1 % (9.0-44.0); LYMPHOCYTE # 1.1 TH/MM3 (1.0-4.8); MEAN CELL VOLUME 86.1 FL (80.0-100.0); MEAN CORPUSCULAR HEMOGLOBIN 28.6 PG (27.0-34.0); MEAN CORPUSCULAR HGB CONC 33.2 % (32.0-36.0); MONO % 11.4 % (0.0-8.0); NEUT % 64.7 % (16.0-70.0); PLATELET COUNT 60 TH/MM3 (150-450); RED BLOOD COUNT 4.32 MIL/MM3 (4.50-5.90); RED CELL DISTRIBUTION WIDTH 13.9 % (11.6-17.2); WHITE BLOOD COUNT 5.2 TH/MM3 (4.0-11.0)
[2016-11-17 03:58] LABS: HEMO FLAGS AUTO DIFF
[2016-11-17] MEDS: CHLORHEXIDINE GLUCONATE 2 % 1 PACK (2 CLOTHS) TOP SCH (04:00)
[2016-11-17 04:12] LABS: BICARBONATE 34.5 MEQ/L (21.0-32.0); POTASSIUM 3.8 MEQ/L (3.5-5.1)
[2016-11-17 05:05] LABS: BANDS 21 % (0-6); EOSINOPHILS 4 % (0-4); METAMYELOCYTES 2 % (0-1); PLATELET ESTIMATE SMEAR LOW (NORMAL); PLATELET MORPHOLOGY NORMAL (NORMAL); POLYS (SEG NEUTROPHILS) 53 % (16-70); SCAN/DIFF FINAL DIFF MANUAL; WBC DIFF SAMPLE 100
[2016-11-17] MEDS: INSULIN NovoLIN REGULAR SUPPLEMENTAL SCALE SQ SCH ×3 (06:00→18:00)
--- NOTE | 2016-11-17 08:13 | HHI.PR ---
Objective Vital Signs Date Time Temp Pulse Resp B/P Pulse Ox O2 Delivery O2 Flow Rate FiO2 11/17/16 07:00 95 Nasal Cannula 2.00 11/17/16 06:00 81 11/17/16 04:00 98.0 79 23 139/78 99 11/17/16 04:00 79 11/17/16 02:00 81 11/17/16 00:00 82 11/17/16 00:00 98.4 82 26 143/81 100 11/16/16 22:00 71 11/16/16 21:42 100 Nasal Cannula 3.00 11/16/16 20:00 98.3 70 20 124/70 96 11/16/16 20:00 70 11/16/16 18:00 75 11/16/16 16:00 98.2 11/16/16 14:00 79 11/16/16 12:00 75 11/16/16 12:00 99.2 75 21 121/72 100 11/16/16 10:00 79 I/O 11/16/16 11/16/16 11/16/16 11/17/16 11/17/16 11/17/16 07:00 15:00 23:00 07:00 15:00 23:00 Intake Total 439 ml 713 ml 710 ml 570 ml Output Total 1250 ml 725 ml 240 ml 950 ml Balance -811 ml -12 ml 470 ml -380 ml Intake Oral 50 ml 50 ml IV Total 439 ml 713 ml 660 ml 520 ml Output Urine Total 1250 ml 725 ml 240 ml 950 ml # Bowel Movements 0 0 0 Result Diagram: 11/17/16 0315 11/17/165 Objective Remarks more awake talking better moving all well Assessment and Plan Assessment and Plan imp vpa 72 on keppra too mri neg oob looks better every day limit sedatives Elder Hillman MD Nov 17, 2016 08:13
[2016-11-17] MEDS: SODIUM CHLORIDE 0.9% FLUSH 10 ML FLUSH IVF SCH (09:00)
[2016-11-17] MEDS: ARTIFICIAL TEARS OPTH SOLN 15 ML BTL EACH EYE SCH ×3 (09:00→18:00)
[2016-11-17] MEDS: SODIUM CHLORIDE 0.9% FLUSH 10 ML FLUSH IV FLUSH SCH ×2 (09:00→19:53)
[2016-11-17] MEDS: levETIRAcetam 1000 MG INJ 100 ML IV SCH ×2 (09:21→19:53)
[2016-11-17] MEDS: DOCUSATE SODIUM 100 MG/10 ML UDC G-TUBE SCH ×2 (09:22→19:52)
[2016-11-17] MEDS: CYANOCOBALAMIN 1000 MCG/ML VIAL SQ SCH (09:22)
--- NOTE | 2016-11-17 10:05 | HHI.HCPN ---
Reason for visit a. To assist with evaluation and management of symptoms including: confusion , pain b. To assist medical decision maker(s) with: better understanding of current medical conditions; weighing benefits/burdens of medical treatment options; making medical treatment decisions. Subjective/Interval History Pt today is much more alert and less lethargic. Pt able to follow commands. Pt was up doing some PT, able to stand and took some steps to the head of the bed; remains a fall risk. Pt still confused, kept saying I can't walk. Still relatively confused and could not endorse much of a history regarding pain. Family/friend interactions no family at bedside. Advance Directives Living Will: Never completed Health Care Surrogate: Never completed Durable Power of Telegraphic Typewriter Repairer: Never completed Advance Directive Specifics Documented care wishes: a DNR was complted and dated 10/08/15. The check box for court appointed guardian was check, however, it appears Pardeep Marker signed it. Objective Vital Signs Date Time Temp Pulse Resp B/P Pulse Ox O2 Delivery O2 Flow Rate FiO2 11/17/16 07:00 95 Nasal Cannula 2.00 11/17/16 06:00 81 11/17/16 04:00 98.0 79 23 139/78 99 11/17/16 04:00 79 11/17/16 02:00 81 11/17/16 00:00 82 11/17/16 00:00 98.4 82 26 143/81 100 11/16/16 22:00 71 11/16/16 21:42 100 Nasal Cannula 3.00 11/16/16 20:00 98.3 70 20 124/70 96 11/16/16 20:00 70 11/16/16 18:00 75 11/16/16 16:00 98.2 11/16/16 14:00 79 11/16/16 12:00 75 11/16/16 12:00 99.2 75 21 121/72 100 11/16/16 10:00 79 Intake & Output 11/17/16 11/17/16 06:59 18:59 Intake Total 1280 ml Output Total 1190 ml Balance 90 ml Intake Oral 100 ml IV Total 1180 ml Output Urine Total 1190 ml # Bowel Movements 0 Physical Exam CONSTITUTIONAL/GENERAL: This is more alert, on O2 nasal canula, walking with PT TUBES/LINES/DRAINS: right IJ, kaiser, scds. SKIN: No jaundice, rashes, or lesions. HEAD: Atraumatic. Normocephalic. EYES: Pupils equal and round and reactive. Extraocular motions intact. No scleral icterus. ENT: Hearing grossly normal. Nose without bleeding or purulent drainage. Throat without visible erythema, exudates, masses, or lesions. NECK: Trachea midline. Supple, nontender. No palpable thyroid enlargement or nodularity. CARDIOVASCULAR: Regular rate and rhythm without murmurs, gallops, or rubs. No JVD. Peripheral pulses symmetric. RESPIRATORY/CHEST: Symmetric, unlabored respirations. Clear to auscultation. Breath sounds equal bilaterally. No wheezes, rales, or rhonchi. GASTROINTESTINAL: Abdomen soft, non-tender, nondistended. No hepato-splenomegaly , or palpable masses. No guarding. Bowel sounds present. GENITOURINARY: Without palpable bladder distension. Kaiser catheter in place. MUSCULOSKELETAL: Extremities without clubbing, cyanosis, or edema. No joint tenderness or effusion noted. No calf tenderness. No mottling or clubbing. LYMPHATICS: No palpable cervical or supraclavicular adenopathy. NEUROLOGICAL: alert, follow commands, but remains confused. Moves all extremities. PSYCHIATRIC: working with PT, following directions. Diagnostic Tests Laboratory Laboratory Tests Test 11/14/16 11/15/16 11/15/16 11/17/16 14:28 07:22 20:30 03:15 Blood Gas Puncture Site RT RADIAL Blood Gas Patient Temperature 98.6 Blood Gas HCO3 24 mmol/L (22-26) Blood Gas Base Excess -0.1 mmol/L (-2-2) Blood Gas Oxygen Saturation 95 % (90-100) Arterial Blood pH 7.38 (7.380-7.420) Arterial Blood Partial 42 mmHg (38-42) Pressure CO2 Arterial Blood Partial 88 mmHg Pressure O2 (61-120) Arterial Blood Oxygen Content 15.7 Vol % (12.0-20.0) Arterial Blood 1.3 % (0-4) Carboxyhemoglobin Arterial Blood Methemoglobin 1.0 % (0-2) Blood Gas Hemoglobin 11.8 G/DL (12.0-16.0) Oxygen Delivery Device VENTILATOR Blood Gas Ventilator Setting CPAP+5/PS+10 Blood Gas Inspired Oxygen 35 % White Blood Count 4.7 TH/MM3 5.2 TH/MM3 (4.0-11.0) (4.0-11.0) Red Blood Count 4.13 MIL/MM3 4.32 MIL/MM3 (4.50-5.90) (4.50-5.90) Hemoglobin 11.6 GM/DL 12.3 GM/DL (13.0-17.0) (13.0-17.0) Hematocrit 36.5 % 37.2 % (39.0-51.0) (39.0-51.0) Mean Corpuscular Volume 88.2 FL 86.1 FL (80.0-100.0) (80.0-100.0) Mean Corpuscular Hemoglobin 28.1 PG 28.6 PG (27.0-34.0) (27.0-34.0) Mean Corpuscular Hemoglobin 31.9 % 33.2 % Concent (32.0-36.0) (32.0-36.0) Red Cell Distribution Width 14.5 % 13.9 % (11.6-17.2) (11.6-17.2) Platelet Count 73 TH/MM3 60 TH/MM3 (150-450) (150-450) Mean Platelet Volume 7.6 FL 7.5 FL (7.0-11.0) (7.0-11.0) Neutrophils (%) (Auto) 57.4 % 64.7 % (16.0-70.0) (16.0-70.0) Lymphocytes (%) (Auto) 33.7 % 21.1 % (9.0-44.0) (9.0-44.0) Monocytes (%) (Auto) 7.9 % (0.0-8.0) 11.4 % (0.0-8.0) Eosinophils (%) (Auto) 0.7 % (0.0-4.0) 2.6 % (0.0-4.0) Basophils (%) (Auto) 0.3 % (0.0-2.0) 0.2 % (0.0-2.0) Neutrophils # (Auto) 2.7 TH/MM3 3.3 TH/MM3 (1.8-7.7) (1.8-7.7) Lymphocytes # (Auto) 1.6 TH/MM3 1.1 TH/MM3 (1.0-4.8) (1.0-4.8) Monocytes # (Auto) 0.4 TH/MM3 0.6 TH/MM3 (0-0.9) (0-0.9) Eosinophils # (Auto) 0.0 TH/MM3 0.1 TH/MM3 (0-0.4) (0-0.4) Basophils # (Auto) 0.0 TH/MM3 0.0 TH/MM3 (0-0.2) (0-0.2) CBC Comment AUTO DIFF AUTO DIFF Differential Comment AUTO DIFF FINAL DIFF CONFIRMED MANUAL Platelet Estimate LOW (NORMAL) LOW (NORMAL) Platelet Morphology Comment NORMAL NORMAL (NORMAL) (NORMAL) Sodium Level 142 MEQ/L 140 MEQ/L (136-145) (136-145) Potassium Level 3.4 MEQ/L 3.4 MEQ/L 3.8 MEQ/L (3.5-5.1) (3.5-5.1) (3.5-5.1) Chloride Level 104 MEQ/L 101 MEQ/L (98-107) (98-107) Carbon Dioxide Level 30.3 MEQ/L 34.5 MEQ/L (21.0-32.0) (21.0-32.0) Anion Gap 8 MEQ/L (5-15) 5 MEQ/L (5-15) Blood Urea Nitrogen 9 MG/DL (7-18) 5 MG/DL (7-18) Creatinine 0.75 MG/DL 0.50 MG/DL (0.60-1.30) (0.60-1.30) Estimat Glomerular Filtration 106 ML/MIN 168 ML/MIN Rate (>89) (>89) Random Glucose 84 MG/DL 97 MG/DL (74-106) (74-106) Calcium Level 7.7 MG/DL 8.4 MG/DL (8.5-10.1) (8.5-10.1) Phosphorus Level 3.4 MG/DL (2.5-4.9) Magnesium Level 1.7 MG/DL (1.5-2.5) Vitamin B12 Level 259 PG/ML (193-986) Valproic Acid (Depakene) Level 77 MCG/ML (50-100) Differential Total Cells 100 Counted Neutrophils % (Manual) 53 % (16-70) Band Neutrophils % 21 % (0-6) Lymphocytes % 17 % (9-44) Monocytes % 3 % (0-8) Eosinophils % 4 % (0-4) Neutrophils # (Manual) 4.0 TH/MM3 (1.8-7.7) Metamyelocytes 2 % (0-1) Thyroid Stimulating Hormone 3.130 uIU/ML 3rd Gen (0.358-3.740) Result Diagram: 11/17/16 0315 11/17/16 0315 Imaging Last Impressions Brain MRI 11/16/16 0000 Signed Impressions: Service Date/Time: Wednesday, November 16, 2016 15:27 - CONCLUSION: 1. No acute intracranial abnormality. Clem Iniguez MD Chest X-Ray 11/13/16 1938 Signed Impressions: Service Date/Time: Sunday, November 13, 2016 19:34 - CONCLUSION: 1. No pneumothorax status post placement of right internal jugular central line which has its tip in the superior vena cava. 2. Minimal right basilar atelectasis. Dom Maxwell MD Head CT 11/13/16 1659 Signed Impressions: Service Date/Time: Sunday, November 13, 2016 17:36 - CONCLUSION: Negative for acute process. Silvestre Iniguez MD FACR Assessment and Plan Disease Oriented Problem List: (1) Respiratory failure Comment: extubated, and appears to have resolve. Currently still aspiration risk. (2) Encephalopathy Comment: multifactorial. substance abuse, hx of seizures, cirrohsis. (3) Seizure disorder Comment: neuro consulted (4) Cirrhosis of liver (5) COPD (chronic obstructive pulmonary disease) (6) Hepatitis B and C (7) Antisocial personality disorder (8) Bipolar disorder Symptom Scale: (1) Pain 0-10 Scale: Unable to quantify Comment: chronic left hip pain, previous femur fracture. Had been on methadone , being held currently. (2) Agitation 0-10 Scale: Unable to quantify Comment: due to encephalopathy (3) Confusion 0-10 Scale: Unable to quantify Comment: currently on restraints. Currently encepholopathic. Pertinent Non-Medical Issues Psychosocial: Spiritual: Legal: Ethical issues impacting care: Important Contacts Pt has a court Appointed Guardian Dianelys Chambers [phone] Prognosis 61 year old. Does not appears cirrohsis ( Pt's is INR 1.1, albumin 3.4 and criteria INR >1.5 and Albumin < 2.5) or COPD (he was extubated relatively quickly) is end stage at this point. Pt main challenge is encephalopathy, seizures, chronic pain and compliance. If those are not well controlled, at risk of multiple hospitalizations, which has been the case. Prognosis is guarded, but I cannot definitely state pt's prognosis is less than 6 months for now. Will need to see how pt clinically evolves during this hospitalization and his ability to take nutrition. He is also relatively young. Code Status: Alternative Code Plan == capacity: more alert today, but remains confused. Unsure what pt's baseline is, but probably poor as pt is from [facility]. == health care decision maker: Appreciate case management assistance. Pt has a court Appointed Guardian Dianelys Chambers [phone]. I have left a message on Ms. Chambers's voicemail. estranged from brother 2 years. == code status: intubation only. Pt has a DNR, but there was a court appointed guardian that was checked. Code status was reviewed with brother who stated intubation only. Will clarify code status with Ms. Chambers when she returns my call. == goals of care: Will clarify with Ms. Chambers when she return my call. == pain. - chronic pain left hip, previous femur fracture. Had been on methadone. Defer to primary team. == confusion- multifactorial, likely has baseline confusion, from [facility]. == palliative care will continue follow as clinical condition evolves. Time Spent Total Floor Time (mins): 35 Face to Face Time (mins): 20 Attestation To help prompt me to consider important information that might be impacting today's encounter and assessment, information from prior notes written by myself or my colleagues may have been "brought forward" into today's note. My signature on this note, however, is an attestation that I personally performed the exam, history, and/or decision-making noted today, and, unless otherwise indicated, the interactions with patient, family, and staff as well as the review of records all occurred today. I also attest that the listed assessment and stated plan reflect my best clinical judgment today based on the combination of historical information, prior notes, and today's exam/ interactions. When time spent is documented, it refers only to time spent today by the signer, or if indicated, combined time spent today by collaborating physician/nurse practitioner. Isaiah Brian MD Nov 17, 2016 10:05
[2016-11-17] MEDS: VALPROATE INJ 500 MG in SODIUM CHLORIDE 0.9% INJ 100 ML IV SCH ×2 (10:09→19:53)
[2016-11-17] MEDS: PANTOPRAZOLE SODIUM 40 MG VIAL IV PUSH SCH (11:15)
[2016-11-17] MEDS: DEXT 5%-NACL 0.9% 1000 ML INJ 1,000 ML IV SCH (12:40)
--- NOTE | 2016-11-17 17:50 | HHI.PR ---
Subjective Remarks patient is awake denies cp/sob initially was sleeping - oriented when he was awoken agitated at times - currently on restraints Objective Vitals Vital Signs Date Time Temp Pulse Resp B/P Pulse Ox O2 Delivery O2 Flow Rate FiO2 11/17/16 16:00 81 11/17/16 14:00 76 11/17/16 12:00 76 11/17/16 10:00 80 11/17/16 08:00 78 11/17/16 07:00 95 Nasal Cannula 2.00 11/17/16 06:00 81 11/17/16 04:00 98.0 79 23 139/78 99 11/17/16 04:00 79 11/17/16 02:00 81 11/17/16 00:00 82 11/17/16 00:00 98.4 82 26 143/81 100 11/16/16 22:00 71 11/16/16 21:42 100 Nasal Cannula 3.00 11/16/16 20:00 98.3 70 20 124/70 96 11/16/16 20:00 70 11/16/16 18:00 75 I/O 11/16/16 11/16/16 11/16/16 11/17/16 11/17/16 11/17/16 07:00 15:00 23:00 07:00 15:00 23:00 Intake Total 439 ml 713 ml 710 ml 570 ml 909 ml Output Total 1250 ml 725 ml 240 ml 950 ml 900 ml Balance -811 ml -12 ml 470 ml -380 ml 9 ml Intake Oral 50 ml 50 ml IV Total 439 ml 713 ml 660 ml 520 ml 909 ml Output Urine Total 1250 ml 725 ml 240 ml 950 ml 900 ml # Bowel Movements 0 0 0 1 Result Diagram: 11/17/16 0315 11/17/16 0315 Imaging Last Impressions Brain MRI 11/16/16 0000 Signed Impressions: Service Date/Time: Wednesday, November 16, 2016 15:27 - CONCLUSION: 1. No acute intracranial abnormality. Clem Iniguez MD Chest X-Ray 11/13/161937 Signed Impressions: Service Date/Time: Sunday, November 13, 2016 19:34 - CONCLUSION: 1. No pneumothorax status post placement of right internal jugular central line which has its tip in the superior vena cava. 2. Minimal right basilar atelectasis. Dom Maxwell MD Head CT 11/13/16 5274 Signed Impressions: Service Date/Time: Sunday, November 13, 2016 17:36 - CONCLUSION: Negative for acute process. Silvestre Iniguez MD FACR Objective Remarks GENERAL: This is a well-nourished, well-developed patient, in no apparent distress. CARDIOVASCULAR: Regular rate and regular rhythm without murmurs, gallops, or rubs. RESPIRATORY: Clear to auscultation. Breath sounds equal bilaterally. No wheezes , rales, or rhonchi. GASTROINTESTINAL: Abdomen soft, non-tender, nondistended. Normal, active bowel sounds MUSCULOSKELETAL: Extremities without clubbing, cyanosis, or edema. NEURO: awake - seems to be more alert Procedures endotracheal intubation central line placement Medications and IVs Current Medications Medications (Trade) Dose Ordered Sig/Teja Route Start Time Stop Time Status Last Admin (NS Flush) 2 ml UNSCH PRN IV FLUSH 11/13/16 19:30 (NS Flush) 2 ml BID IV FLUSH 11/13/16 21:00 11/17/16 09:00 (Tylenol) 650 mg Q6H PRN PO 11/13/16 19:30 (Tears Naturale Opth Soln) 1 drop TID EACH EYE 11/14/16 09:00 11/17/16 09:00 (Zofran Inj) 4 mg Q6H PRN IV 11/13/16 19:30 (Colace Liq) 100 mg Q12H G-TUBE 11/13/16 19:45 11/17/16 09:22 (Senna Liq) 17.6 mg Q12H PRN G-TUBE 11/13/16 19:30 Miscellaneous Information 1 Q361D XX 11/13/16 19:30 11/14/16 00:30 (Chlorhexidine 2% Cloth) 3 pack Taper DAILY@04 TOP 11/14/16 04:00 11/10/17 03:59 11/17/16 04:00 Chlorhexidine Gluconate 3 pack 3 pack UNSCH PRN TOP 11/13/16 19:30 Potassium Chloride 100 ml @ 50 mls/hr Q2H PRN IV 11/13/16 19:30 Potassium Chloride 100 ml @ 50 mls/hr Q2H PRN IV 11/13/16 19:30 11/15/16 15:14 Potassium Chloride 100 ml @ 25 mls/hr UNSCH PRN IV 11/13/16 19:30 Potassium Chloride 100 ml @ 50 mls/hr Q2H PRN IV 11/13/16 19:30 11/16/16 05:12 (Magnesium Sulfate Inj/NS Inj) 100 ml @ 50 mls/hr UNSCH PRN IV 11/13/16 19:30 Magnesium Oxide 800 mg 800 mg UNSCH PRN PO 11/13/16 19:30 (Magnesium Sulfate Inj/NS Inj) 100 ml @ 50 mls/hr UNSCH PRN IV 11/13/16 19:30 Potassium Phosphate 2000 mg 2,000 mg Q4H PRN PO 11/13/16 19:30 (Sodium Phosphate Inj/NS 250 ml Inj) 250 ml @ 42 mls/hr UNSCH PRN IV 11/13/16 19:30 11/14/16 11:20 Potassium Phosphate 2000 mg 2,000 mg UNSCH PRN PO/TUBE 11/13/16 19:30 (Potassium Phosphate Inj/NS 250 ml Inj) 260 ml @ 42 mls/hr UNSCH PRN IV 11/13/16 19:30 (Peridex 0.12% Liq) 15 ml BID@08,20 MT 11/13/16 20:00 11/15/16 08:49 (D50w (Vial) Inj) 25 ml UNSCH PRN IV PUSH 11/13/16 19:30 11/15/16 05:32 (Glucagon Inj) 1 mg UNSCH PRN OTHER 11/13/16 19:30 (NS Flush) DAILY IVF 11/14/16 09:00 11/17/16 09:00 Sodium Chloride UNSCH PRN IVF 11/13/16 19:45 Levetriacetam 100 ml @ 400 mls/hr Q12H IV 11/14/16 08:00 11/17/16 09:21 (Depacon Inj/NS Inj) 105 ml @ 105 mls/hr Q12HR IV 11/13/16 21:00 11/17/16 10:09 (NovoLIN R SUPPLEMENTAL SCALE) 1 Q6HR SQ 11/14/16 00:00 (Apresoline Inj) 10 mg Q1HR PRN IV PUSH 11/13/16 21:45 (Nitroglycerin 2% Oint) 2 inch Q6HR PRN TOPICAL 11/13/16 21:45 (Trandate Inj) 10 mg Q1HR PRN IV PUSH 11/13/16 22:00 (Brethine Inj) 1 mg UNSCH PRN SQ 11/13/16 23:30 Pantoprazole Sodium 40 mg 40 mg Q12H IV PUSH 11/14/16 11:15 11/16/16 23:02 (D5W-NS 1000 ml Inj) 1,000 ml @ 75 mls/hr [id number] IV 11/14/16 18:00 11/16/16 23:02 (Vitamin B12 Inj) 1,000 mcg DAILY SQ 11/16/16 10:00 11/19/16 09:59 11/17/16 09:22 Urinary Catheter: No Vascular Central Line Catheter: No A/P Problem List: (1) Status epilepticus ICD Code: G40.901 Status: Acute (2) Altered mental status ICD Code: R41.82 Status: Acute (3) COPD (chronic obstructive pulmonary disease) ICD Code: J44.9 Status: Chronic (4) Bipolar disorder ICD Code: F31.9 Status: Chronic (5) Antisocial personality disorder ICD Code: F60.2 Status: Acute (6) Cirrhosis of liver ICD Code: K74.60 Status: Chronic (7) GERD (gastroesophageal reflux disease) ICD Code: K21.9 Status: Acute (8) Poor intravenous access ICD Code: Z78.9 Status: Acute (9) Hepatitis B and C Status: Chronic (10) Lactic acidosis ICD Code: E87.2 Status: Resolved (11) Elevated TSH ICD Code: R94.6 Status: Acute (12) Hypertension ICD Code: I10 Status: Chronic (13) Gout ICD Code: M10.9 Status: Chronic (14) Methadone use ICD Code: F11.20 Status: Chronic (15) Acute hypercapnic respiratory failure ICD Code: J96.02 Status: Resolved Assessment and Plan Assessment and Plan A/P Status epilepticus Seizure disorder Bipolar disorder Anxiety/depression History of EtOH abuse Methadone use on IV Keppra and Valproic acid CT head at admission reveals no acute findings. EEG with no seizure activity MRI brain - negative. Continue thiamine 100 mg daily with history of EtOH use. neurology following. History of V. tach History of hypertension History of dyslipidemia hydralazine prn. Monitor HR and BP . 11/17 Blood pressure seems to be stable. Continue to monitor on telemetry. Acute Hypercapnic respiratory failure- s/p intubation/ extubation COPD Continue with oxygen as needed to keep sat >92% Continue neb treatment Hepatitis B/C History of EtOH induced cirrhosis Chronic pancreatitis consulted ST ---> patient needs to have chronic consistency thickened liquids.. Protonix for GI prophylaxis Elevated TSH Noted patient was given 200 g IV Levoxyl in the ED by ED physician. SSI with Accu-Cheks every 6 hours to maintain euglycemia Repeat TSH obtained today shows TSH of 3.13 Thrombocytopenia Platelets continued to trend down from 130 upon admission down to 60. Probably secondary to stress. Continue to monitor platelets Coags within normal limits hypokalemia; replaced, now within normal limits. Continue to monitor PT evaluate and treat Prophylaxis - GI - Protonix 40mg Q12 - DVT - SCD Discharge Planning Okay to transfer to the neuro floor. Problem Qualifiers (1) Altered mental status: Qualified Code: R40.1 - Stupor (2) COPD (chronic obstructive pulmonary disease): (3) Bipolar disorder: Qualified Code: F31.9 - Bipolar affective disorder, remission status unspecified (4) Cirrhosis of liver: Qualified Code: K74.60 - Cirrhosis of liver without ascites, unspecified hepatic cirrhosis type (5) GERD (gastroesophageal reflux disease): Qualified Code: K21.9 - Gastroesophageal reflux disease, esophagitis presence not specified (6) Hypertension: Qualified Code: I10 - Essential hypertension (7) Gout: Qualified Code: M10.9 - Gout, unspecified cause, unspecified chronicity, unspecified site Danny Mitchell MD Nov 17, 2016 17:50
[2016-11-17] MEDS: CHLORHEXIDINE 0.12% (ORAL KIT) 15 ML CUP MT SCH (19:53)
[2016-11-18] VITALS (9 sets, daily range): BP systolic 123–148; BP diastolic 61–98; PULSE 54–75; RESP 17–20; TEMP 96.6–98.1; O2SAT 95–100
[2016-11-18] MEDS: PANTOPRAZOLE SODIUM 40 MG VIAL IV PUSH SCH ×2 (00:56→10:54)
[2016-11-18] MEDS: DEXT 5%-NACL 0.9% 1000 ML INJ 1,000 ML IV SCH ×2 (01:11→18:02)
[2016-11-18] MEDS: CHLORHEXIDINE GLUCONATE 2 % 1 PACK (2 CLOTHS) TOP SCH (04:00)
[2016-11-18] MEDS: INSULIN NovoLIN REGULAR SUPPLEMENTAL SCALE SQ SCH ×4 (05:43→18:02)
[2016-11-18 06:21] LABS: AUTOMATED NEUTROPHIL # 1.8 TH/MM3 (1.8-7.7); BASOPHIL % 0.4 % (0.0-2.0); EOSINOPHIL # 0.1 TH/MM3 (0-0.4); EOSINOPHIL % 3.2 % (0.0-4.0); HEMATOCRIT 35.6 % (39.0-51.0); LYMPH % 40.8 % (9.0-44.0); LYMPHOCYTE # 1.7 TH/MM3 (1.0-4.8); MEAN CELL VOLUME 85.4 FL (80.0-100.0); MEAN CORPUSCULAR HEMOGLOBIN 28.4 PG (27.0-34.0); MEAN CORPUSCULAR HGB CONC 33.3 % (32.0-36.0); NEUT % 43.6 % (16.0-70.0); PLATELET COUNT 65 TH/MM3 (150-450); RED BLOOD COUNT 4.17 MIL/MM3 (4.50-5.90); WHITE BLOOD COUNT 4.1 TH/MM3 (4.0-11.0)
[2016-11-18 06:26] LABS: HEMO FLAGS AUTO DIFF
[2016-11-18 06:57] LABS: ALKALINE PHOSPHATASE 47 U/L (45-117); ALT (GPT) 13 U/L (12-78); ANION GAP 8 MEQ/L (5-15); AST (GOT) 22 U/L (15-37); BICARBONATE 32.5 MEQ/L (21.0-32.0); BLOOD UREA NITROGEN 6 MG/DL (7-18); CHLORIDE 103 MEQ/L (98-107); GLOMERULAR FILTRATION RATE 161 ML/MIN (>89); MAGNESIUM 1.6 MG/DL (1.5-2.5); POTASSIUM 3.4 MEQ/L (3.5-5.1); SODIUM (NA) 143 MEQ/L (136-145); TOTAL BILIRUBIN ADULT 0.4 MG/DL (0.2-1.0)
[2016-11-18 08:11] LABS: BANDS 7 % (0-6); EOSINOPHILS 3 % (0-4); NEUTROPHIL # MANUAL DIFF 1.9 TH/MM3 (1.8-7.7); POLYS (SEG NEUTROPHILS) 40 % (16-70); WBC DIFF SAMPLE 100
[2016-11-18 08:12] LABS: PLATELET ESTIMATE SMEAR LOW (NORMAL); PLATELET MORPHOLOGY NORMAL (NORMAL); SCAN/DIFF FINAL DIFF MANUAL
[2016-11-18] MEDS: levETIRAcetam 1000 MG INJ 100 ML IV SCH ×2 (08:32→20:57)
[2016-11-18] MEDS: ARTIFICIAL TEARS OPTH SOLN 15 ML BTL EACH EYE SCH ×3 (08:33→18:00)
[2016-11-18] MEDS: DOCUSATE SODIUM 100 MG/10 ML UDC G-TUBE SCH ×2 (08:33→20:57)
[2016-11-18] MEDS: CYANOCOBALAMIN 1000 MCG/ML VIAL SQ SCH (08:33)
[2016-11-18] MEDS: CHLORHEXIDINE 0.12% (ORAL KIT) 15 ML CUP MT SCH ×2 (08:34→20:00)
--- NOTE | 2016-11-18 08:37 | HHI.PR ---
Objective Vital Signs Date Time Temp Pulse Resp B/P Pulse Ox O2 Delivery O2 Flow Rate FiO2 11/18/16 05:50 98.0 63 17 148/98 97 11/18/16 01:16 98.0 64 17 143/80 98 11/17/16 20:00 77 11/17/16 20:00 98.2 77 20 127/82 93 11/17/16 18:00 98.5 69 19 129/78 94 11/17/16 18:00 76 11/17/16 16:00 81 11/17/16 14:00 76 11/17/16 12:00 98.6 82 20 103/70 98 11/17/16 12:00 76 11/17/16 10:00 80 I/O 11/17/16 11/17/16 11/17/16 11/18/16 11/18/16 11/18/16 07:00 15:00 23:00 07:00 15:00 23:00 Intake Total 570 ml 909 ml 650 ml 344 ml Output Total 950 ml 900 ml 250 ml 750 ml Balance -380 ml 9 ml 400 ml -406 ml Intake Oral 50 ml 50 ml IV Total 520 ml 909 ml 600 ml 344 ml Output Urine Total 950 ml 900 ml 250 ml 750 ml # Bowel Movements 0 1 1 Result Diagram: 11/18/16 0600 11/18/16 0600 Objective Remarks more awake talking better moving all well hard of hearing much more alert his am Assessment and Plan Assessment and Plan imp vpa 72 on keppra too mri neg oob looks better every day limit sedatives ambulate with PT up to chair better every day Elder Hillman MD Nov 18, 2016 08:37
[2016-11-18] MEDS: SODIUM CHLORIDE 0.9% FLUSH 10 ML FLUSH IVF SCH (09:00)
[2016-11-18] MEDS: SODIUM CHLORIDE 0.9% FLUSH 10 ML FLUSH IV FLUSH SCH ×2 (09:00→21:01)
[2016-11-18] MEDS: VALPROATE INJ 500 MG in SODIUM CHLORIDE 0.9% INJ 100 ML IV SCH ×2 (10:51→20:57)
--- NOTE | 2016-11-18 16:24 | HHI.PR ---
Subjective Remarks Patient trying to get out of bed - he says he wants to get his clothes to leave denies cp/sob states also wants to go to bathroom denies headache seems more alert vital signs stable Objective Vitals Vital Signs Date Time Temp Pulse Resp B/P Pulse Ox O2 Delivery O2 Flow Rate FiO2 11/18/16 12:00 96.8 64 20 123/61 95 11/18/16 08:53 96 21 11/18/16 08:00 97.7 54 19 137/83 100 11/18/16 05:50 98.0 63 17 148/98 97 11/18/16 01:16 98.0 64 17 143/80 98 11/17/16 20:00 77 11/17/16 20:00 98.2 77 20 127/82 93 11/17/16 18:00 98.5 69 19 129/78 94 11/17/16 18:00 76 I/O 11/17/16 11/17/16 11/17/16 11/18/16 11/18/16 11/18/16 07:00 15:00 23:00 07:00 15:00 23:00 Intake Total 570 ml 909 ml 650 ml 344 ml 300 ml Output Total 950 ml 900 ml 250 ml 750 ml Balance -380 ml 9 ml 400 ml -406 ml 300 ml Intake Oral 50 ml 50 ml 300 ml IV Total 520 ml 909 ml 600 ml 344 ml Output Urine Total 950 ml 900 ml 250 ml 750 ml # Voids 3 # Bowel Movements 0 1 1 0 Result Diagram: 11/18/16 0600 11/18/16 0600 Imaging Last Impressions Brain MRI 11/16/16 0000 Signed Impressions: Service Date/Time: Wednesday, November 16, 2016 15:27 - CONCLUSION: 1. No acute intracranial abnormality. Clem Iniguez MD Chest X-Ray 11/13/16 1938 Signed Impressions: Service Date/Time: Sunday, November 13, 2016 19:34 - CONCLUSION: 1. No pneumothorax status post placement of right internal jugular central line which has its tip in the superior vena cava. 2. Minimal right basilar atelectasis. Dom Maxwell MD Head CT 11/13/16 1659 Signed Impressions: Service Date/Time: Sunday, November 13, 2016 17:36 - CONCLUSION: Negative for acute process. Silvestre Iniguez MD FACR Objective Remarks GENERAL: This is a well-nourished, well-developed patient, in no apparent distress. CARDIOVASCULAR: Regular rate and regular rhythm without murmurs, gallops, or rubs. RESPIRATORY: Clear to auscultation. Breath sounds equal bilaterally. No wheezes , rales, or rhonchi. GASTROINTESTINAL: Abdomen soft, non-tender, nondistended. Normal, active bowel sounds MUSCULOSKELETAL: Extremities without clubbing, cyanosis, or edema. NEURO: awake - seems to be more alert Procedures endotracheal intubation central line placement Medications and IVs Current Medications Medications (Trade) Dose Ordered Sig/Teja Route Start Time Stop Time Status Last Admin (NS Flush) 2 ml UNSCH PRN IV FLUSH 11/13/16 19:30 (NS Flush) 2 ml BID IV FLUSH 11/13/16 21:00 11/17/16 09:00 (Tylenol) 650 mg Q6H PRN PO 11/13/16 19:30 (Tears Naturale Opth Soln) 1 drop TID EACH EYE 11/14/16 09:00 11/18/16 18:00 (Zofran Inj) 4 mg Q6H PRN IV 11/13/16 19:30 (Colace Liq) 100 mg Q12H G-TUBE 11/13/16 19:45 11/18/16 08:33 (Senna Liq) 17.6 mg Q12H PRN G-TUBE 11/13/16 19:30 Miscellaneous Information 1 Q361D XX 11/13/16 19:30 11/14/16 00:30 (Chlorhexidine 2% Cloth) 3 pack Taper DAILY@04 TOP 11/14/16 04:00 11/10/17 03:59 11/17/16 04:00 (Chlorhexidine 2% Cloth) 3 pack UNSCH PRN TOP 11/13/16 19:30 (Peridex 0.12% Liq) 15 ml BID@08,20 MT 11/13/16 20:00 11/15/16 08:49 (D50w (Vial) Inj) 25 ml UNSCH PRN IV PUSH 11/13/16 19:30 11/15/16 05:32 (Glucagon Inj) 1 mg UNSCH PRN OTHER 11/13/16 19:30 (NS Flush) DAILY IVF 11/14/16 09:00 11/18/16 09:00 Sodium Chloride UNSCH PRN IVF 11/13/16 19:45 Levetriacetam 100 ml @ 400 mls/hr Q12H IV 11/14/16 08:00 11/18/16 08:32 (Depacon Inj/NS Inj) 105 ml @ 105 mls/hr Q12HR IV 11/13/16 21:00 11/18/16 10:51 (NovoLIN R SUPPLEMENTAL SCALE) 1 Q6HR SQ 11/14/16 00:00 (Apresoline Inj) 10 mg Q1HR PRN IV PUSH 11/13/16 21:45 (Nitroglycerin 2% Oint) 2 inch Q6HR PRN TOPICAL 11/13/16 21:45 (Trandate Inj) 10 mg Q1HR PRN IV PUSH 11/13/16 22:00 (Brethine Inj) 1 mg UNSCH PRN SQ 11/13/16 23:30 Pantoprazole Sodium 40 mg 40 mg Q12H IV PUSH 11/14/16 11:15 11/18/16 10:54 (D5W-NS 1000 ml Inj) 1,000 ml @ 75 mls/hr [id number] IV 11/14/16 18:00 11/18/16 18:02 (Vitamin B12 Inj) 1,000 mcg DAILY SQ 11/16/16 10:00 11/19/16 09:59 11/18/16 08:33 A/P Problem List: (1) Status epilepticus ICD Code: G40.901 Status: Acute (2) Altered mental status ICD Code: R41.82 Status: Acute (3) COPD (chronic obstructive pulmonary disease) ICD Code: J44.9 Status: Chronic (4) Bipolar disorder ICD Code: F31.9 Status: Chronic (5) Antisocial personality disorder ICD Code: F60.2 Status: Acute (6) Cirrhosis of liver ICD Code: K74.60 Status: Chronic (7) GERD (gastroesophageal reflux disease) ICD Code: K21.9 Status: Acute (8) Poor intravenous access ICD Code: Z78.9 Status: Acute (9) Hepatitis B and C Status: Chronic (10) Lactic acidosis ICD Code: E87.2 Status: Resolved (11) Elevated TSH ICD Code: R94.6 Status: Acute (12) Hypertension ICD Code: I10 Status: Chronic (13) Gout ICD Code: M10.9 Status: Chronic (14) Methadone use ICD Code: F11.20 Status: Chronic (15) Acute hypercapnic respiratory failure ICD Code: J96.02 Status: Resolved Assessment and Plan Assessment and Plan A/P Status epilepticus Seizure disorder Bipolar disorder Anxiety/depression History of EtOH abuse Methadone use on IV Keppra and Valproic acid CT head at admission reveals no acute findings. EEG with no seizure activity MRI brain - negative. Continue thiamine 100 mg daily with history of EtOH use. neurology following. Patient improving every day. History of V. tach History of hypertension History of dyslipidemia hydralazine prn. Monitor HR and BP . / Blood pressure seems to be stable. Continue to monitor on telemetry. Acute Hypercapnic respiratory failure- s/p intubation/ extubation COPD Continue with oxygen as needed to keep sat >92% Continue neb treatment Hepatitis B/C History of EtOH induced cirrhosis Chronic pancreatitis consulted ST ---> patient needs to have chronic consistency thickened liquids.. Protonix for GI prophylaxis Elevated TSH Noted patient was given 200 g IV Levoxyl in the ED by ED physician. SSI with Accu-Cheks every 6 hours to maintain euglycemia Repeat TSH obtained today shows TSH of 3.13 Thrombocytopenia Platelets continued to trend down from 130 upon admission down to 60. Probably secondary to stress. Continue to monitor platelets Coags within normal limits hypokalemia; k 3.4 replace and continue to monitor PT evaluate and treat Prophylaxis - GI - Protonix 40mg Q12 - DVT - SCD Discharge Planning Dc pending clinical improvement and neuro clearance Problem Qualifiers (1) Altered mental status: Qualified Code: R40.1 - Stupor (2) COPD (chronic obstructive pulmonary disease): (3) Bipolar disorder: Qualified Code: F31.9 - Bipolar affective disorder, remission status unspecified (4) Cirrhosis of liver: Qualified Code: K74.60 - Cirrhosis of liver without ascites, unspecified hepatic cirrhosis type (5) GERD (gastroesophageal reflux disease): Qualified Code: K21.9 - Gastroesophageal reflux disease, esophagitis presence not specified (6) Hypertension: Qualified Code: I10 - Essential hypertension (7) Gout: Qualified Code: M10.9 - Gout, unspecified cause, unspecified chronicity, unspecified site Danny Mitchell MD Nov 18, 2016 16:24
[2016-11-18] MEDS ORDERED: POTASSIUM CHLORIDE 10 MEQ CONTROLLED RELEASE TAB PO ONE (16:30)
[2016-11-19] VITALS (8 sets, daily range): BP systolic 117–156; BP diastolic 60–96; PULSE 58–80; RESP 16–20; TEMP 96.4–98.8; O2SAT 94–99
[2016-11-19] MEDS: PANTOPRAZOLE SODIUM 40 MG VIAL IV PUSH SCH ×3 (00:06→22:37)
[2016-11-19] MEDS: CHLORHEXIDINE GLUCONATE 2 % 1 PACK (2 CLOTHS) TOP SCH (04:00)
[2016-11-19] MEDS: DEXT 5%-NACL 0.9% 1000 ML INJ 1,000 ML IV SCH ×2 (04:40→18:00)
[2016-11-19] MEDS: INSULIN NovoLIN REGULAR SUPPLEMENTAL SCALE SQ SCH ×5 (06:00→23:36)
[2016-11-19] MEDS: CHLORHEXIDINE 0.12% (ORAL KIT) 15 ML CUP MT SCH ×2 (08:00→20:00)
--- NOTE | 2016-11-19 08:37 | HHI.PR ---
Objective Vital Signs Date Time Temp Pulse Resp B/P Pulse Ox O2 Delivery O2 Flow Rate FiO2 11/19/16 06:40 98.8 64 18 130/60 98 11/19/16 00:00 98.1 68 17 125/65 97 11/18/16 21:19 97 21 11/18/16 20:00 98.1 69 18 144/82 99 11/18/16 18:33 75 11/18/16 16:00 96.6 74 18 132/80 97 11/18/16 12:00 96.8 64 20 123/61 95 11/18/16 08:53 96 21 I/O 11/18/16 11/18/16 11/18/16 11/19/16 11/19/16 11/19/16 07:00 15:00 23:00 07:00 15:00 23:00 Intake Total 344 ml 300 ml 0 ml Output Total 750 ml Balance -406 ml 300 ml 0 ml Intake Oral 300 ml 0 ml IV Total 344 ml Output Urine Total 750 ml # Voids 3 4 # Bowel Movements 0 1 Result Diagram: 11/18/16 0600 11/18/16 0600 Objective Remarks sitting up eating speech clear Assessment and Plan Assessment and Plan imp vpa 78 on keppra too mri neg looks better every day l ambulate with PT up to chair better every day he wants to go home i changed to vpa er 1000hs and keppra po 1500 bid he could go back to [place] i dont trust him to go home and not drink Elder Hillman MD Nov 19, 2016 08:37
[2016-11-19] MEDS: DOCUSATE SODIUM 100 MG/10 ML UDC G-TUBE SCH ×2 (08:45→22:27)
[2016-11-19] MEDS: SODIUM CHLORIDE 0.9% FLUSH 10 ML FLUSH IVF SCH (08:46)
[2016-11-19] MEDS: SODIUM CHLORIDE 0.9% FLUSH 10 ML FLUSH IV FLUSH SCH ×2 (08:46→22:28)
[2016-11-19] MEDS: ARTIFICIAL TEARS OPTH SOLN 15 ML BTL EACH EYE SCH ×3 (08:46→18:11)
[2016-11-19] MEDS: CYANOCOBALAMIN 1000 MCG/ML VIAL SQ SCH (08:46)
[2016-11-19] MEDS: levETIRAcetam 500 MG TAB PO SCH ×2 (10:47→22:27)
[2016-11-19 13:32] LABS: AUTOMATED NEUTROPHIL # 2.4 TH/MM3 (1.8-7.7); BASOPHIL % 0.3 % (0.0-2.0); EOSINOPHIL # 0.1 TH/MM3 (0-0.4); EOSINOPHIL % 2.5 % (0.0-4.0); HEMATOCRIT 34.9 % (39.0-51.0); LYMPH % 31.6 % (9.0-44.0); LYMPHOCYTE # 1.4 TH/MM3 (1.0-4.8); MEAN CELL VOLUME 84.8 FL (80.0-100.0); MEAN CORPUSCULAR HGB CONC 34.2 % (32.0-36.0); NEUT % 53.6 % (16.0-70.0); PLATELET COUNT 97 TH/MM3 (150-450); RED BLOOD COUNT 4.12 MIL/MM3 (4.50-5.90); RED CELL DISTRIBUTION WIDTH 14.4 % (11.6-17.2); WHITE BLOOD COUNT 4.4 TH/MM3 (4.0-11.0)
[2016-11-19 13:34] LABS: HEMO FLAGS AUTO DIFF
[2016-11-19] MEDS: predniSONE 50 MG TAB PO SCH (13:42)
[2016-11-19 13:59] LABS: ANION GAP 7 MEQ/L (5-15); AST (GOT) 20 U/L (15-37); BICARBONATE 27.8 MEQ/L (21.0-32.0); BLOOD UREA NITROGEN 6 MG/DL (7-18); CHLORIDE 106 MEQ/L (98-107); GLOMERULAR FILTRATION RATE 122 ML/MIN (>89); POTASSIUM 3.2 MEQ/L (3.5-5.1); SODIUM (NA) 141 MEQ/L (136-145)
[2016-11-19 14:02] LABS: PLATELET ESTIMATE SMEAR LOW (NORMAL); PLATELET MORPHOLOGY NORMAL (NORMAL); SCAN/DIFF AUTO DIFF CONFIRMED
[2016-11-19 14:02] LABS: ALKALINE PHOSPHATASE 49 U/L (45-117); ALT (GPT) 13 U/L (12-78); TOTAL BILIRUBIN ADULT 0.3 MG/DL (0.2-1.0)
--- NOTE | 2016-11-19 15:12 | HHI.PR ---
Subjective Remarks patient c/o sob denies cp vital signs stable Objective Vitals Vital Signs Date Time Temp Pulse Resp B/P Pulse Ox O2 Delivery O2 Flow Rate FiO2 11/19/16 12:00 97.3 80 20 117/64 94 11/19/16 09:35 99 T-piece 28 11/19/16 08:00 97.5 64 20 119/66 95 11/19/16 06:40 98.8 64 18 130/60 98 11/19/16 00:00 98.1 68 17 125/65 97 11/18/16 21:19 97 21 11/18/16 20:00 98.1 69 18 144/82 99 11/18/16 18:33 75 11/18/16 16:00 96.6 74 18 132/80 97 I/O 11/18/16 11/18/16 11/18/16 11/19/16 11/19/16 11/19/16 07:00 15:00 23:00 07:00 15:00 23:00 Intake Total 344 ml 300 ml 0 ml 240 ml Output Total 750 ml Balance -406 ml 300 ml 0 ml 240 ml Intake Oral 300 ml 0 ml 240 ml IV Total 344 ml Output Urine Total 750 ml # Voids 3 4 2 # Bowel Movements 0 1 1 Result Diagram: 11/19/16 1212 11/19/16 1216 Imaging Last Impressions Brain MRI 11/16/16 0000 Signed Impressions: Service Date/Time: Wednesday, November 16, 2016 15:27 - CONCLUSION: 1. No acute intracranial abnormality. Clem Iniguez MD Chest X-Ray 11/13/16 1938 Signed Impressions: Service Date/Time: Sunday, November 13, 2016 19:34 - CONCLUSION: 1. No pneumothorax status post placement of right internal jugular central line which has its tip in the superior vena cava. 2. Minimal right basilar atelectasis. Dom Maxwell MD Head CT 11/13/16 1659 Signed Impressions: Service Date/Time: Sunday, November 13, 2016 17:36 - CONCLUSION: Negative for acute process. Silvestre Iniguez MD FACR Objective Remarks GENERAL: This is a well-nourished, well-developed patient, in no apparent distress. CARDIOVASCULAR: Regular rate and regular rhythm without murmurs, gallops, or rubs. RESPIRATORY: Clear to auscultation. Breath sounds equal bilaterally. No wheezes , rales, or rhonchi. GASTROINTESTINAL: Abdomen soft, non-tender, nondistended. Normal, active bowel sounds MUSCULOSKELETAL: Extremities without clubbing, cyanosis, or edema. NEURO: awake - seems to be more alert Procedures endotracheal intubation central line placement Medications and IVs Current Medications Medications (Trade) Dose Ordered Sig/Teja Route Start Time Stop Time Status Last Admin (NS Flush) 2 ml UNSCH PRN IV FLUSH 11/13/16 19:30 (NS Flush) 2 ml BID IV FLUSH 11/13/16 21:00 11/19/16 08:46 (Tylenol) 650 mg Q6H PRN PO 11/13/16 19:30 (Tears Naturale Opth Soln) 1 drop TID EACH EYE 11/14/16 09:00 11/19/16 13:28 (Zofran Inj) 4 mg Q6H PRN IV 11/13/16 19:30 (Colace Liq) 100 mg Q12H G-TUBE 11/13/16 19:45 11/19/16 08:45 (Senna Liq) 17.6 mg Q12H PRN G-TUBE 11/13/16 19:30 Miscellaneous Information 1 Q361D XX 11/13/16 19:30 11/14/16 00:30 (Chlorhexidine 2% Cloth) Taper DAILY@04 TOP 11/14/16 04:00 11/10/17 03:59 11/17/16 04:00 (Chlorhexidine 2% Cloth) 3 pack UNSCH PRN TOP 11/13/16 19:30 (Peridex 0.12% Liq) 15 ml BID@08,20 MT 11/13/16 20:00 11/18/16 20:00 (D50w (Vial) Inj) 25 ml UNSCH PRN IV PUSH 11/13/16 19:30 11/15/16 05:32 (Glucagon Inj) 1 mg UNSCH PRN OTHER 11/13/16 19:30 (NS Flush) DAILY IVF 11/14/16 09:00 11/19/16 08:46 (NS Flush) UNSCH PRN IVF 11/13/16 19:45 (NovoLIN R SUPPLEMENTAL SCALE) 1 Q6HR SQ 11/14/16 00:00 (Apresoline Inj) 10 mg Q1HR PRN IV PUSH 11/13/16 21:45 (Nitroglycerin 2% Oint) 2 inch Q6HR PRN TOPICAL 11/13/16 21:45 (Trandate Inj) 10 mg Q1HR PRN IV PUSH 11/13/16 22:00 (Brethine Inj) 1 mg UNSCH PRN SQ 11/13/16 23:30 Pantoprazole Sodium 40 mg 40 mg Q12H IV PUSH 11/14/16 11:15 11/19/16 10:48 (D5W-NS 1000 ml Inj) 1,000 ml @ 75 mls/hr [id number] IV 11/14/16 18:00 11/18/16 18:02 (Keppra) 1,500 mg Q12HR PO 11/19/16 09:00 11/19/16 10:47 (Depakote Er) 1,000 mg HS PO 11/19/16 21:00 (Deltasone) 50 mg DAILY PO 11/19/16 12:45 11/19/16 13:42 (Augmentin) 875 mg Q12H PO 11/19/16 14:00 Urinary Catheter: No Vascular Central Line Catheter: No A/P Problem List: (1) Status epilepticus ICD Code: G40.901 Status: Acute (2) Altered mental status ICD Code: R41.82 Status: Acute (3) COPD (chronic obstructive pulmonary disease) ICD Code: J44.9 Status: Chronic (4) Bipolar disorder ICD Code: F31.9 Status: Chronic (5) Antisocial personality disorder ICD Code: F60.2 Status: Acute (6) Cirrhosis of liver ICD Code: K74.60 Status: Chronic (7) GERD (gastroesophageal reflux disease) ICD Code: K21.9 Status: Acute (8) Poor intravenous access ICD Code: Z78.9 Status: Acute (9) Hepatitis B and C Status: Chronic (10) Lactic acidosis ICD Code: E87.2 Status: Resolved (11) Elevated TSH ICD Code: R94.6 Status: Acute (12) Hypertension ICD Code: I10 Status: Chronic (13) Gout ICD Code: M10.9 Status: Chronic (14) Methadone use ICD Code: F11.20 Status: Chronic (15) Acute hypercapnic respiratory failure ICD Code: J96.02 Status: Resolved Assessment and Plan Assessment and Plan A/P Status epilepticus Seizure disorder Bipolar disorder Anxiety/depression History of EtOH abuse Methadone use CT head at admission reveals no acute findings. EEG with no seizure activity MRI brain - negative. Continue thiamine 100 mg daily with history of EtOH use. neurology following. Patient improving every day. /6 IV Keppra and valproic acid changed to oral by neurology. History of V. tach History of hypertension History of dyslipidemia hydralazine prn. Monitor HR and BP . 11/17 Blood pressure seems to be stable. Continue to monitor on telemetry. Acute Hypercapnic respiratory failure- s/p intubation/ extubation COPD exacerbation Continue with oxygen as needed to keep sat >92% Continue neb treatment 11/19 patient with shortness of breath and wheezing. I will start the patient on prednisone and Augmentin. Hepatitis B/C History of EtOH induced cirrhosis Chronic pancreatitis consulted ST ---> patient needs to have chronic consistency thickened liquids.. Protonix for GI prophylaxis Elevated TSH Noted patient was given 200 g IV Levoxyl in the ED by ED physician. SSI with Accu-Cheks every 6 hours to maintain euglycemia Repeat TSH obtained today shows TSH of 3.13 Thrombocytopenia Platelets initially trending down, now coming up. Platelets today at 97,000. Thrombocytopenia likely secondary to stress. Continue to monitor platelets Coags within normal limits hypokalemia; k 3.2 replace and continue to monitor PT evaluate and treat - patient will need rehab Prophylaxis - GI - Protonix 40mg Q12 - DVT - SCD Discharge Planning Dc pending clinical improvement of copd Problem Qualifiers (1) Altered mental status: Qualified Code: R40.1 - Stupor (2) COPD (chronic obstructive pulmonary disease): (3) Bipolar disorder: Qualified Code: F31.9 - Bipolar affective disorder, remission status unspecified (4) Cirrhosis of liver: Qualified Code: K74.60 - Cirrhosis of liver without ascites, unspecified hepatic cirrhosis type (5) GERD (gastroesophageal reflux disease): Qualified Code: K21.9 - Gastroesophageal reflux disease, esophagitis presence not specified (6) Hypertension: Qualified Code: I10 - Essential hypertension (7) Gout: Qualified Code: M10.9 - Gout, unspecified cause, unspecified chronicity, unspecified site Danny Mitchell MD Nov 19, 2016 15:12
[2016-11-19] MEDS: AMOXICILLIN/CLAVULANATE K 875 MG TAB PO SCH (15:39)
[2016-11-19] MEDS: DIVALPROEX SODIUM E.R. 500 MG TAB PO SCH (22:28)
[2016-11-20] VITALS (8 sets, daily range): BP systolic 119–157; BP diastolic 69–94; PULSE 52–66; RESP 18–20; TEMP 96.1–98.3; O2SAT 95–98
[2016-11-20] MEDS: AMOXICILLIN/CLAVULANATE K 875 MG TAB PO SCH ×2 (02:00→11:56)
[2016-11-20] MEDS: CHLORHEXIDINE GLUCONATE 2 % 1 PACK (2 CLOTHS) TOP SCH (03:51)
[2016-11-20] MEDS: RESP: ALBUTEROL 2.5 MG/IPRATROPIUM 0.5 MG NEB (SCH) INH ×4 (04:00→21:07)
[2016-11-20] MEDS: RESP: ALBUTEROL 2.5 MG/3 ML NEB (PRN) INH ×2 (04:26→16:47)
[2016-11-20] MEDS: INSULIN NovoLIN REGULAR SUPPLEMENTAL SCALE SQ SCH ×3 (05:42→17:09)
[2016-11-20 06:06] LABS: HEMATOCRIT 34.2 % (39.0-51.0); MEAN CELL VOLUME 84.5 FL (80.0-100.0); MEAN CORPUSCULAR HEMOGLOBIN 29.2 PG (27.0-34.0); MEAN CORPUSCULAR HGB CONC 34.5 % (32.0-36.0); PLATELET COUNT 94 TH/MM3 (150-450); RED BLOOD COUNT 4.04 MIL/MM3 (4.50-5.90); RED CELL DISTRIBUTION WIDTH 14.3 % (11.6-17.2); WHITE BLOOD COUNT 4.2 TH/MM3 (4.0-11.0)
[2016-11-20 06:16] LABS: REVIEW FLAG FINAL
[2016-11-20 06:31] LABS: BICARBONATE 27.7 MEQ/L (21.0-32.0); POTASSIUM 3.4 MEQ/L (3.5-5.1)
[2016-11-20] MEDS: CHLORHEXIDINE 0.12% (ORAL KIT) 15 ML CUP MT SCH ×2 (08:00→20:00)
[2016-11-20] MEDS: predniSONE 50 MG TAB PO SCH (09:00)
[2016-11-20] MEDS: DOCUSATE SODIUM 100 MG/10 ML UDC G-TUBE SCH ×2 (09:32→19:45)
[2016-11-20] MEDS: DEXT 5%-NACL 0.9% 1000 ML INJ 1,000 ML IV SCH (09:32)
[2016-11-20] MEDS: SODIUM CHLORIDE 0.9% FLUSH 10 ML FLUSH IVF SCH (09:32)
[2016-11-20] MEDS: levETIRAcetam 500 MG TAB PO SCH ×2 (09:32→21:56)
[2016-11-20] MEDS: ARTIFICIAL TEARS OPTH SOLN 15 ML BTL EACH EYE SCH ×3 (09:33→17:09)
[2016-11-20] MEDS: SODIUM CHLORIDE 0.9% FLUSH 10 ML FLUSH IV FLUSH SCH ×2 (09:33→21:00)
[2016-11-20] MEDS: PANTOPRAZOLE SODIUM 40 MG VIAL IV PUSH SCH ×2 (11:45→22:14)
[2016-11-20] MEDS ORDERED: methylPREDNISolone SOD SUCC 125 MG/2 ML VIAL IV PUSH ONE (14:00)
[2016-11-20] MEDS: LEVOFLOXACIN 750 MG PREMIX INJ 150 ML IV SCH (14:59)
--- NOTE | 2016-11-20 15:18 | HHI.PR ---
Subjective Remarks Patient complains that he feels short of breath and is coughing. Patient states "I have bronchitis" Denies chest pain Vital signs stable. Objective Vitals Vital Signs Date Time Temp Pulse Resp B/P Pulse Ox O2 Delivery O2 Flow Rate FiO2 11/20/16 12:00 96.8 64 20 124/74 96 11/20/16 11:01 98 T-piece 28 11/20/16 08:00 97.2 58 18 119/69 95 11/20/16 08:00 62 11/20/16 04:05 96.1 54 18 155/86 95 11/20/16 00:00 97.5 58 18 151/80 96 11/19/16 23:30 68 11/19/16 20:00 97.3 72 16 156/96 98 11/19/16 16:00 96.4 58 20 138/76 94 I/O 11/19/16 11/19/16 11/19/16 11/20/16 11/20/16 11/20/16 07:00 15:00 23:00 07:00 15:00 23:00 Intake Total 0 ml 240 ml 480 ml Balance 0 ml 240 ml 480 ml Intake Oral 0 ml 240 ml 480 ml # Voids 4 2 4 1 # Bowel Movements 1 1 0 0 Result Diagram: 11/20/16 0540 11/20/16 0540 Imaging Last Impressions Brain MRI 11/16/16 0000 Signed Impressions: Service Date/Time: Wednesday, November 16, 2016 15:27 - CONCLUSION: 1. No acute intracranial abnormality. Clem Iniguez MD Chest X-Ray 11/13/16 1938 Signed Impressions: Service Date/Time: Sunday, November 13, 2016 19:34 - CONCLUSION: 1. No pneumothorax status post placement of right internal jugular central line which has its tip in the superior vena cava. 2. Minimal right basilar atelectasis. Dom Maxwell MD Head CT 11/13/16 6689 Signed Impressions: Service Date/Time: Sunday, November 13, 2016 17:36 - CONCLUSION: Negative for acute process. Silvestre Iniguez MD FACR Objective Remarks GENERAL: This is a well-nourished, well-developed patient, in no apparent distress. CARDIOVASCULAR: Regular rate and regular rhythm without murmurs, gallops, or rubs. RESPIRATORY: Diffuse bilateral expiratory wheezing. GASTROINTESTINAL: Abdomen soft, non-tender, nondistended. Normal, active bowel sounds MUSCULOSKELETAL: Extremities without clubbing, cyanosis, or edema. NEURO: awake - seems to be more alert Procedures endotracheal intubation central line placement Medications and IVs Current Medications Medications (Trade) Dose Ordered Sig/Teja Route Start Time Stop Time Status Last Admin (NS Flush) 2 ml UNSCH PRN IV FLUSH 11/13/16 19:30 (NS Flush) 2 ml BID IV FLUSH 11/13/16 21:00 11/20/16 09:33 (Tylenol) 650 mg Q6H PRN PO 11/13/16 19:30 (Tears Naturale Opth Soln) 1 drop TID EACH EYE 11/14/16 09:00 11/20/16 11:47 (Zofran Inj) 4 mg Q6H PRN IV 11/13/16 19:30 (Colace Liq) 100 mg Q12H G-TUBE 11/13/16 19:45 11/20/16 09:32 (Senna Liq) 17.6 mg Q12H PRN G-TUBE 11/13/16 19:30 Miscellaneous Information 1 Q361D XX 11/13/16 19:30 11/14/16 00:30 (Chlorhexidine 2% Cloth) Taper DAILY@04 TOP 11/14/16 04:00 11/10/17 03:59 11/17/16 04:00 (Chlorhexidine 2% Cloth) 3 pack UNSCH PRN TOP 11/13/16 19:30 (Peridex 0.12% Liq) 15 ml BID@08,20 MT 11/13/16 20:00 11/18/16 20:00 (D50w (Vial) Inj) 25 ml UNSCH PRN IV PUSH 11/13/16 19:30 11/15/16 05:32 (Glucagon Inj) 1 mg UNSCH PRN OTHER 11/13/16 19:30 (NS Flush) DAILY IVF 11/14/16 09:00 11/20/16 09:32 (NS Flush) UNSCH PRN IVF 11/13/16 19:45 (NovoLIN R SUPPLEMENTAL SCALE) 1 Q6HR SQ 11/14/16 00:00 (Apresoline Inj) 10 mg Q1HR PRN IV PUSH 11/13/16 21:45 (Nitroglycerin 2% Oint) 2 inch Q6HR PRN TOPICAL 11/13/16 21:45 (Trandate Inj) 10 mg Q1HR PRN IV PUSH 11/13/16 22:00 (Brethine Inj) 1 mg UNSCH PRN SQ 11/13/16 23:30 Pantoprazole Sodium 40 mg 40 mg Q12H IV PUSH 11/14/16 11:15 11/20/16 11:45 (D5W-NS 1000 ml Inj) 1,000 ml @ 75 mls/hr [id number] IV 11/14/16 18:00 11/20/16 09:32 (Keppra) 1,500 mg Q12HR PO 11/19/16 09:00 11/20/16 09:32 (Depakote Er) 1,000 mg HS PO 11/19/16 21:00 11/19/16 22:28 Methylprednisolone Sodium Succinate 40 mg 40 mg Q8HR IV PUSH 11/20/16 22:00 (Levaquin 750 Mg Premix Inj) 150 ml @ 100 mls/hr Q24H IV 11/20/16 14:00 11/20/16 14:59 Urinary Catheter: No Vascular Central Line Catheter: No A/P Problem List: (1) Status epilepticus ICD Code: G40.901 Status: Resolved (2) Altered mental status ICD Code: R41.82 Status: Acute (3) COPD (chronic obstructive pulmonary disease) ICD Code: J44.9 Status: Chronic (4) Bipolar disorder ICD Code: F31.9 Status: Chronic (5) Antisocial personality disorder ICD Code: F60.2 Status: Acute (6) Cirrhosis of liver ICD Code: K74.60 Status: Chronic (7) GERD (gastroesophageal reflux disease) ICD Code: K21.9 Status: Acute (8) Poor intravenous access ICD Code: Z78.9 Status: Acute (9) Hepatitis B and C Status: Chronic (10) Lactic acidosis ICD Code: E87.2 Status: Resolved (11) Elevated TSH ICD Code: R94.6 Status: Acute (12) Hypertension ICD Code: I10 Status: Chronic (13) Gout ICD Code: M10.9 Status: Chronic (14) Methadone use ICD Code: F11.20 Status: Chronic (15) Acute hypercapnic respiratory failure ICD Code: J96.02 Status: Resolved Assessment and Plan Assessment and Plan A/P Status epilepticus Seizure disorder Bipolar disorder Anxiety/depression History of EtOH abuse Methadone use CT head at admission reveals no acute findings. EEG with no seizure activity MRI brain - negative. Continue thiamine 100 mg daily with history of EtOH use. neurology following. Patient improving every day. 11/19 IV Keppra and valproic acid changed to oral by neurology. History of V. tach History of hypertension History of dyslipidemia hydralazine prn. Monitor HR and BP . 11/17 Blood pressure seems to be stable. Continue to monitor on telemetry. Acute Hypercapnic respiratory failure- s/p intubation/ extubation COPD exacerbation Continue with oxygen as needed to keep sat >92% Continue neb treatment 11/19 patient with shortness of breath and wheezing. I will start the patient on prednisone and Augmentin. 11/20 the patient continues to be short of breath, coughing. On examination patient has bilateral expiratory wheezing. I will give IV supplemental 125 mg IV once and then placed on Solu-Medrol 40 mg IV every 8 hours. I will also discontinue Augmentin and place the patient on IV Levaquin. Check a chest x- ray. Hepatitis B/C History of EtOH induced cirrhosis Chronic pancreatitis consulted ST ---> patient needs to have chronic consistency thickened liquids.. Protonix for GI prophylaxis Elevated TSH Noted patient was given 200 g IV Levoxyl in the ED by ED physician. SSI with Accu-Cheks every 6 hours to maintain euglycemia Repeat TSH obtained showed TSH of 3.13 Thrombocytopenia Platelets initially trending down, now coming up. Platelets today at 97,000. Thrombocytopenia likely secondary to stress. Continue to monitor platelets Coags within normal limits hypokalemia; hypokalemia improving. Potassium 3.4. Continue to place orally and monitor BMP. PT evaluate and treat - patient will need rehab Prophylaxis - GI - Protonix 40mg Q12 - DVT - SCD Discharge Planning Dc pending clinical improvement of copd Problem Qualifiers (1) Altered mental status: Qualified Code: R40.1 - Stupor (2) COPD (chronic obstructive pulmonary disease): (3) Bipolar disorder: Qualified Code: F31.9 - Bipolar affective disorder, remission status unspecified (4) Cirrhosis of liver: Qualified Code: K74.60 - Cirrhosis of liver without ascites, unspecified hepatic cirrhosis type (5) GERD (gastroesophageal reflux disease): Qualified Code: K21.9 - Gastroesophageal reflux disease, esophagitis presence not specified (6) Hypertension: Qualified Code: I10 - Essential hypertension (7) Gout: Qualified Code: M10.9 - Gout, unspecified cause, unspecified chronicity, unspecified site Danny Mitchell MD Nov 20, 2016 15:18
[2016-11-20] MEDS ORDERED: POTASSIUM CHLORIDE 10 MEQ CONTROLLED RELEASE TAB PO ONE (16:00)
--- NOTE | 2016-11-20 17:09 | RADRPT ---
EXAM DATE/TIME: 11/20/2016 16:56 [facility] COMPARISON: CHEST SINGLE AP, November 13, 2016, 19:34. INDICATIONS : Cough. MEDICAL HISTORY : None. SURGICAL HISTORY : None. ENCOUNTER: Subsequent ACUITY: 2 weeks PAIN SCORE: 0/10 LOCATION: Bilateral chest FINDINGS: The right jugular central lines in good position. There is no pneumothorax. The heart is normal in size. The lungs are clear. CONCLUSION: 1. Central line in good position. 2. The lungs are clear. Clem Iniguez MD on November 20, 2016 at 17:07 Board Certified Radiologist. This report was verified electronically.
--- NOTE | 2016-11-20 18:36 | HHI.HCPN ---
Reason for visit a. To assist with evaluation and management of symptoms including: confusion , pain b. To assist medical decision maker(s) with: better understanding of current medical conditions; weighing benefits/burdens of medical treatment options; making medical treatment decisions. Subjective/Interval History Pt alert, confused, remains in restraints. Thought I came already today. Chest X ray shows lungs are clear. Pt state he wants to go home. Family/friend interactions Erika Mcadams' pt's roomate/ significant other stays with him in [facility]. She states, I will take care of him. Advance Directives Living Will: Never completed Health Care Surrogate: Never completed Durable Power of Associate Director Of Nursing: Never completed Advance Directive Specifics Documented care wishes: a DNR was complted and dated 10/08/15. The check box for court appointed guardian was check, however, it appears Pardeep Marker signed it. Objective Vital Signs Date Time Temp Pulse Resp B/P Pulse Ox O2 Delivery O2 Flow Rate FiO2 11/20/16 16:00 98.3 52 20 157/94 95 11/20/16 12:00 96.8 64 20 124/74 96 11/20/16 11:01 98 T-piece 28 11/20/16 08:00 97.2 58 18 119/69 95 11/20/16 08:00 62 11/20/16 04:05 96.1 54 18 155/86 95 11/20/16 00:00 97.5 58 18 151/80 96 11/19/16 23:30 68 11/19/16 20:00 97.3 72 16 156/96 98 Intake & Output 11/20/16 11/20/16 07:00 19:00 Intake Total 480 ml Balance 480 ml Intake Oral 480 ml # Voids 4 1 # Bowel Movements 0 0 Physical Exam CONSTITUTIONAL/GENERAL: This is more alert, not on supplemental O2. TUBES/LINES/DRAINS: right IJ, kaiser, scds. SKIN: No jaundice, rashes, or lesions. HEAD: Atraumatic. Normocephalic. EYES: Pupils equal and round and reactive. Extraocular motions intact. No scleral icterus. ENT: Hearing grossly normal. Nose without bleeding or purulent drainage. Throat without visible erythema, exudates, masses, or lesions. NECK: Trachea midline. Supple, nontender. No palpable thyroid enlargement or nodularity. CARDIOVASCULAR: Regular rate and rhythm without murmurs, gallops, or rubs. No JVD. Peripheral pulses symmetric. RESPIRATORY/CHEST: Symmetric, unlabored respirations. Clear to auscultation. Breath sounds equal bilaterally. No wheezes, rales, or rhonchi. GASTROINTESTINAL: Abdomen soft, non-tender, nondistended. No hepato-splenomegaly , or palpable masses. No guarding. Bowel sounds present. GENITOURINARY: Without palpable bladder distension. Kaiser catheter in place. MUSCULOSKELETAL: Extremities without clubbing, cyanosis, or edema. No joint tenderness or effusion noted. No calf tenderness. No mottling or clubbing. LYMPHATICS: No palpable cervical or supraclavicular adenopathy. NEUROLOGICAL: alert, follow commands, but remains confused. Moves all extremities. On restraints. PSYCHIATRIC: working with PT, following directions. Diagnostic Tests Laboratory Laboratory Tests Test 11/18/16 11/19/16 11/19/16 11/20/16 06:00 12:12 12:16 05:40 White Blood Count 4.1 TH/MM3 4.4 TH/MM3 4.2 TH/MM3 (4.0-11.0) (4.0-11.0) (4.0-11.0) Red Blood Count 4.17 MIL/MM3 4.12 MIL/MM3 4.04 MIL/MM3 (4.50-5.90) (4.50-5.90) (4.50-5.90) Hemoglobin 11.8 GM/DL 11.9 GM/DL 11.8 GM/DL (13.0-17.0) (13.0-17.0) (13.0-17.0) Hematocrit 35.6 % 34.9 % 34.2 % (39.0-51.0) (39.0-51.0) (39.0-51.0) Mean Corpuscular Volume 85.4 FL 84.8 FL 84.5 FL (80.0-100.0) (80.0-100.0) (80.0-100.0) Mean Corpuscular Hemoglobin 28.4 PG 29.0 PG 29.2 PG (27.0-34.0) (27.0-34.0) (27.0-34.0) Mean Corpuscular Hemoglobin 33.3 % 34.2 % 34.5 % Concent (32.0-36.0) (32.0-36.0) (32.0-36.0) Red Cell Distribution Width 14.0 % 14.4 % 14.3 % (11.6-17.2) (11.6-17.2) (11.6-17.2) Platelet Count 65 TH/MM3 97 TH/MM3 94 TH/MM3 (150-450) (150-450) (150-450) Mean Platelet Volume 7.6 FL 7.8 FL 7.7 FL (7.0-11.0) (7.0-11.0) (7.0-11.0) Neutrophils (%) (Auto) 43.6 % 53.6 % (16.0-70.0) (16.0-70.0) Lymphocytes (%) (Auto) 40.8 % 31.6 % (9.0-44.0) (9.0-44.0) Monocytes (%) (Auto) 12.0 % 12.0 % (0.0-8.0) (0.0-8.0) Eosinophils (%) (Auto) 3.2 % (0.0-4.0) 2.5 % (0.0-4.0) Basophils (%) (Auto) 0.4 % (0.0-2.0) 0.3 % (0.0-2.0) Neutrophils # (Auto) 1.8 TH/MM3 2.4 TH/MM3 (1.8-7.7) (1.8-7.7) Lymphocytes # (Auto) 1.7 TH/MM3 1.4 TH/MM3 (1.0-4.8) (1.0-4.8) Monocytes # (Auto) 0.5 TH/MM3 0.5 TH/MM3 (0-0.9) (0-0.9) Eosinophils # (Auto) 0.1 TH/MM3 0.1 TH/MM3 (0-0.4) (0-0.4) Basophils # (Auto) 0.0 TH/MM3 0.0 TH/MM3 (0-0.2) (0-0.2) CBC Comment AUTO DIFF AUTO DIFF Differential Total Cells 100 Counted Neutrophils % (Manual) 40 % (16-70) Band Neutrophils % 7 % (0-6) Lymphocytes % 41 % (9-44) Monocytes % 9 % (0-8) Eosinophils % 3 % (0-4) Neutrophils # (Manual) 1.9 TH/MM3 (1.8-7.7) Differential Comment FINAL DIFF AUTO DIFF MANUAL CONFIRMED Platelet Estimate LOW (NORMAL) LOW (NORMAL) Platelet Morphology Comment NORMAL NORMAL (NORMAL) (NORMAL) Red Cell Morphology Comment NORMAL (NORMAL) Sodium Level 143 MEQ/L 141 MEQ/L 141 MEQ/L (136-145) (136-145) (136-145) Potassium Level 3.4 MEQ/L 3.2 MEQ/L 3.4 MEQ/L (3.5-5.1) (3.5-5.1) (3.5-5.1) Chloride Level 103 MEQ/L 106 MEQ/L 106 MEQ/L (98-107) (98-107) (98-107) Carbon Dioxide Level 32.5 MEQ/L 27.8 MEQ/L 27.7 MEQ/L (21.0-32.0) (21.0-32.0) (21.0-32.0) Anion Gap 8 MEQ/L (5-15) 7 MEQ/L (5-15) 7 MEQ/L (5-15) Blood Urea Nitrogen 6 MG/DL (7-18) 6 MG/DL (7-18) 9 MG/DL (7-18) Creatinine 0.52 MG/DL 0.66 MG/DL 0.63 MG/DL (0.60-1.30) (0.60-1.30) (0.60-1.30) Estimat Glomerular Filtration 161 ML/MIN 122 ML/MIN 129 ML/MIN Rate (>89) (>89) (>89) Random Glucose 81 MG/DL 96 MG/DL 94 MG/DL (74-106) (74-106) (74-106) Calcium Level 8.4 MG/DL 8.2 MG/DL 8.6 MG/DL (8.5-10.1) (8.5-10.1) (8.5-10.1) Phosphorus Level 2.4 MG/DL (2.5-4.9) Magnesium Level 1.6 MG/DL (1.5-2.5) Total Bilirubin 0.4 MG/DL 0.3 MG/DL (0.2-1.0) (0.2-1.0) Aspartate Amino Transf 22 U/L (15-37) 20 U/L (15-37) (AST/SGOT) Alanine Aminotransferase 13 U/L (12-78) 13 U/L (12-78) (ALT/SGPT) Alkaline Phosphatase 47 U/L (45-117) 49 U/L (45-117) Total Protein 6.3 GM/DL 6.5 GM/DL (6.4-8.2) (6.4-8.2) Albumin 2.4 GM/DL 2.5 GM/DL (3.4-5.0) (3.4-5.0) Valproic Acid (Depakene) Level 78 MCG/ML (50-100) Result Diagram: 11/20/16 0540 11/20/16 0540 Imaging Last Impressions Chest X-Ray 11/20/16 0000 Signed Impressions: Service Date/Time: Sunday, November 20, 2016 16:56 - CONCLUSION: 1. Central line in good position. 2. The lungs are clear. Clem Iniguez MD Brain MRI 11/16/16 0000 Signed Impressions: Service Date/Time: Wednesday, November 16, 2016 15:27 - CONCLUSION: 1. No acute intracranial abnormality. Clem Iniguez MD Head CT 11/13/16 1659 Signed Impressions: Service Date/Time: Sunday, November 13, 2016 17:36 - CONCLUSION: Negative for acute process. Silvestre Iniguez MD FACR Assessment and Plan Disease Oriented Problem List: (1) Respiratory failure Comment: extubated, and appears to have resolve. Currently still aspiration risk. (2) Encephalopathy Comment: multifactorial. substance abuse, hx of seizures, cirrohsis. (3) Seizure disorder Comment: neuro consulted (4) Cirrhosis of liver (5) COPD (chronic obstructive pulmonary disease) (6) Hepatitis B and C (7) Antisocial personality disorder (8) Bipolar disorder Symptom Scale: (1) Pain 0-10 Scale: Unable to quantify Comment: chronic left hip pain, previous femur fracture. Had been on methadone , being held currently. (2) Agitation 0-10 Scale: Unable to quantify Comment: due to encephalopathy (3) Confusion 0-10 Scale: Unable to quantify Comment: currently on restraints. Currently encepholopathic. Pertinent Non-Medical Issues Psychosocial: Spiritual: Legal: Ethical issues impacting care: Important Contacts Pt has a court Appointed Guardian Dianelys Chambers [phone] Prognosis 61 year old. Does not appears cirrohsis ( Pt's is INR 1.1, albumin 3.4 and criteria INR >1.5 and Albumin < 2.5) or COPD (he was extubated relatively quickly) is end stage at this point. Pt main challenge is encephalopathy, seizures, chronic pain and compliance. If those are not well controlled, at risk of multiple hospitalizations, which has been the case. Prognosis is guarded, but I cannot definitely state pt's prognosis is less than 6 months for now. Will need to see how pt clinically evolves during this hospitalization and his ability to take nutrition. He is also relatively young. Code Status: Alternative Code Plan Alert, but confused. Unsure what pt's baseline is, but probably poor as pt is from [facility]. == health care decision maker: Appreciate case management assistance. Pt has a court Appointed Guardian Dianelys Chambers [phone]. I have left a message on Ms. Chambers's voicemail, and has not called back. estranged from brother 2 years. == code status: intubation only. Pt has a DNR, but there was a court appointed guardian that was checked. Code status was reviewed with brother who stated intubation only. Will clarify code status with Ms. Chambers when she returns my call. == goals of care: Will clarify with Ms. Chambers when she return my call. == pain. - chronic pain left hip, previous femur fracture. Had been on methadone. Defer to primary team. == dyspnea- say he is not dyspneic any more. Chest X ray negative. == confusion- multifactorial, likely has baseline confusion. == palliative care will continue follow as clinical condition evolves. Isaiah Brian MD Nov 20, 2016 18:36
[2016-11-20] MEDS: DIVALPROEX SODIUM E.R. 500 MG TAB PO SCH (21:56)
[2016-11-20] MEDS: methylPREDNISolone SOD SUCC 40 MG/1 ML VIAL IV PUSH SCH (21:57)
[2016-11-20] MEDS: SODIUM CHLORIDE 0.9% FLUSH 10 ML FLUSH IV FLUSH PRN (22:23)
[2016-11-21] VITALS (8 sets, daily range): BP systolic 121–151; BP diastolic 73–80; PULSE 56–77; RESP 16–18; TEMP 96–98.1; O2SAT 94–98
[2016-11-21] MEDS: CHLORHEXIDINE GLUCONATE 2 % 1 PACK (2 CLOTHS) TOP SCH (04:00)
[2016-11-21] MEDS: RESP: ALBUTEROL 2.5 MG/IPRATROPIUM 0.5 MG NEB (SCH) INH ×4 (04:32→20:44)
[2016-11-21] MEDS: methylPREDNISolone SOD SUCC 40 MG/1 ML VIAL IV PUSH SCH ×3 (05:57→21:57)
[2016-11-21] MEDS: INSULIN NovoLIN REGULAR SUPPLEMENTAL SCALE SQ SCH ×4 (06:00→17:09)
[2016-11-21] MEDS: DOCUSATE SODIUM 100 MG/10 ML UDC G-TUBE SCH ×2 (07:45→19:45)
[2016-11-21] MEDS: CHLORHEXIDINE 0.12% (ORAL KIT) 15 ML CUP MT SCH ×2 (08:00→20:00)
[2016-11-21] MEDS: SODIUM CHLORIDE 0.9% FLUSH 10 ML FLUSH IVF SCH (09:10)
[2016-11-21] MEDS: SODIUM CHLORIDE 0.9% FLUSH 10 ML FLUSH IV FLUSH SCH ×2 (09:10→21:00)
[2016-11-21] MEDS: levETIRAcetam 500 MG TAB PO SCH ×2 (09:10→21:55)
[2016-11-21] MEDS: DEXT 5%-NACL 0.9% 1000 ML INJ 1,000 ML IV SCH ×2 (09:10→23:51)
[2016-11-21] MEDS: ARTIFICIAL TEARS OPTH SOLN 15 ML BTL EACH EYE SCH ×3 (09:13→17:10)
[2016-11-21] MEDS: PANTOPRAZOLE SODIUM 40 MG VIAL IV PUSH SCH ×2 (11:15→22:08)
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
[2016-11-21] MEDS: LEVOFLOXACIN 750 MG PREMIX INJ 150 ML IV SCH (14:04)
[2016-11-21] MEDS: QUEtiapine FUMARATE 25 MG TAB PO SCH (17:07)
--- NOTE | 2016-11-21 17:33 | HHI.PR ---
Subjective Remarks patient seen earlier at 12:15 pm patient states breathing is improved cough is better as per RN agitated earlier Objective Vitals Vital Signs Date Time Temp Pulse Resp B/P Pulse Ox O2 Delivery O2 Flow Rate FiO2 11/21/16 16:00 96.9 62 18 126/78 96 11/21/16 12:00 97.3 73 18 121/74 95 11/21/16 08:38 95 21.00 11/21/16 08:00 96.0 60 18 137/80 94 11/21/16 04:35 96 Nasal Cannula 21 11/21/16 04:00 98.1 56 16 151/78 94 11/21/16 00:00 97.8 77 18 132/80 96 11/20/16 21:09 98 21 11/20/16 20:00 97.4 66 18 140/83 96 I/O 11/20/16 11/20/16 11/20/16 11/21/16 11/21/16 11/21/16 07:00 15:00 23:00 07:00 15:00 23:00 Intake Total 480 ml 1508 ml Balance 480 ml 1508 ml Intake Oral 480 ml IV Total 1508 ml # Voids 4 1 3 # Bowel Movements 0 0 Result Diagram: 11/20/16 0540 11/20/16 0540 Imaging Last Impressions Chest X-Ray 11/20/16 0000 Signed Impressions: Service Date/Time: Sunday, November 20, 2016 16:56 - CONCLUSION: 1. Central line in good position. 2. The lungs are clear. Clem Iniguez MD Brain MRI 11/16/16 0000 Signed Impressions: Service Date/Time: Wednesday, November 16, 2016 15:27 - CONCLUSION: 1. No acute intracranial abnormality. Clem Iniguez MD Head CT 11/13/16 1659 Signed Impressions: Service Date/Time: Sunday, November 13, 2016 17:36 - CONCLUSION: Negative for acute process. Silvestre Iniguez MD FACR Objective Remarks GENERAL: This is a well-nourished, well-developed patient, in no apparent distress. CARDIOVASCULAR: Regular rate and regular rhythm without murmurs, gallops, or rubs. RESPIRATORY: Diffuse bilateral expiratory wheezing. GASTROINTESTINAL: Abdomen soft, non-tender, nondistended. Normal, active bowel sounds MUSCULOSKELETAL: Extremities without clubbing, cyanosis, or edema. NEURO: awake - seems to be more alert Procedures endotracheal intubation central line placement Medications and IVs Current Medications Medications (Trade) Dose Ordered Sig/Teja Route Start Time Stop Time Status Last Admin (NS Flush) 2 ml UNSCH PRN IV FLUSH 11/13/16 19:30 11/20/16 22:23 (NS Flush) 2 ml BID IV FLUSH 11/13/16 21:00 11/21/16 09:10 (Tylenol) 650 mg Q6H PRN PO 11/13/16 19:30 11/20/16 22:15 (Tears Naturale Opth Soln) 1 drop TID EACH EYE 11/14/16 09:00 11/21/16 17:10 (Zofran Inj) 4 mg Q6H PRN IV 11/13/16 19:30 (Colace Liq) 100 mg Q12H G-TUBE 11/13/16 19:45 11/20/16 09:32 (Senna Liq) 17.6 mg Q12H PRN G-TUBE 11/13/16 19:30 Miscellaneous Information 1 Q361D XX 11/13/16 19:30 11/14/16 00:30 (Chlorhexidine 2% Cloth) Taper DAILY@04 TOP 11/14/16 04:00 11/10/17 03:59 11/17/16 04:00 (Chlorhexidine 2% Cloth) 3 pack UNSCH PRN TOP 11/13/16 19:30 (Peridex 0.12% Liq) 15 ml BID@08,20 MT 11/13/16 20:00 11/18/16 20:00 (D50w (Vial) Inj) 25 ml UNSCH PRN IV PUSH 11/13/16 19:30 11/15/16 05:32 (Glucagon Inj) 1 mg UNSCH PRN OTHER 11/13/16 19:30 (NS Flush) DAILY IVF 11/14/16 09:00 11/21/16 09:10 (NS Flush) UNSCH PRN IVF 11/13/16 19:45 (NovoLIN R SUPPLEMENTAL SCALE) 1 Q6HR SQ 11/14/16 00:00 (Apresoline Inj) 10 mg Q1HR PRN IV PUSH 11/13/16 21:45 (Nitroglycerin 2% Oint) 2 inch Q6HR PRN TOPICAL 11/13/16 21:45 (Trandate Inj) 10 mg Q1HR PRN IV PUSH 11/13/16 22:00 (Brethine Inj) 1 mg UNSCH PRN SQ 11/13/16 23:30 Pantoprazole Sodium 40 mg 40 mg Q12H IV PUSH 11/14/16 11:15 11/21/16 11:15 (D5W-NS 1000 ml Inj) 1,000 ml @ 75 mls/hr [id number] IV 11/14/16 18:00 11/21/16 09:10 (Keppra) 1,500 mg Q12HR PO 11/19/16 09:00 11/21/16 09:10 (Depakote Er) 1,000 mg HS PO 11/19/16 21:00 11/20/16 21:56 Methylprednisolone Sodium Succinate 40 mg 40 mg Q8HR IV PUSH 11/20/16 22:00 11/21/16 14:04 (Levaquin 750 Mg Premix Inj) 150 ml @ 100 mls/hr Q24H IV 11/20/16 14:00 11/21/16 14:04 (SEROquel) 25 mg TID PO 11/21/16 18:00 11/21/16 17:07 Urinary Catheter: No Vascular Central Line Catheter: No A/P Problem List: (1) Status epilepticus ICD Code: G40.901 Status: Resolved (2) Altered mental status ICD Code: R41.82 Status: Acute (3) COPD (chronic obstructive pulmonary disease) ICD Code: J44.9 Status: Chronic (4) Bipolar disorder ICD Code: F31.9 Status: Chronic (5) Antisocial personality disorder ICD Code: F60.2 Status: Acute (6) Cirrhosis of liver ICD Code: K74.60 Status: Chronic (7) GERD (gastroesophageal reflux disease) ICD Code: K21.9 Status: Acute (8) Poor intravenous access ICD Code: Z78.9 Status: Acute (9) Hepatitis B and C Status: Chronic (10) Lactic acidosis ICD Code: E87.2 Status: Resolved (11) Elevated TSH ICD Code: R94.6 Status: Acute (12) Hypertension ICD Code: I10 Status: Chronic (13) Gout ICD Code: M10.9 Status: Chronic (14) Methadone use ICD Code: F11.20 Status: Chronic (15) Acute hypercapnic respiratory failure ICD Code: J96.02 Status: Resolved Assessment and Plan Assessment and Plan A/P Status epilepticus Seizure disorder Bipolar disorder Anxiety/depression History of EtOH abuse Methadone use CT head at admission reveals no acute findings. EEG with no seizure activity MRI brain - negative. Continue thiamine 100 mg daily with history of EtOH use. neurology following. Patient improving every day. 11/19 IV Keppra and valproic acid changed to oral by neurology. Pending Psych consult. History of V. tach History of hypertension History of dyslipidemia hydralazine prn. Monitor HR and BP . 11/17 Blood pressure seems to be stable. Continue to monitor on telemetry. Acute Hypercapnic respiratory failure- s/p intubation/ extubation COPD exacerbation Continue with oxygen as needed to keep sat >92% Continue neb treatment 11/19 patient with shortness of breath and wheezing. I will start the patient on prednisone and Augmentin. 11/20 the patient continues to be short of breath, coughing. On examination patient has bilateral expiratory wheezing. I will give IV supplemental 125 mg IV once and then placed on Solu-Medrol 40 mg IV every 8 hours. I will also discontinue Augmentin and place the patient on IV Levaquin. Check a chest x- ray. 11/21 SOB better. continue IV steroids, bronchodilators supplemental o2 and IV levaquin. Hepatitis B/C History of EtOH induced cirrhosis Chronic pancreatitis consulted ST ---> patient needs to have chronic consistency thickened liquids.. Protonix for GI prophylaxis Elevated TSH Noted patient was given 200 g IV Levoxyl in the ED by ED physician. SSI with Accu-Cheks every 6 hours to maintain euglycemia Repeat TSH obtained showed TSH of 3.13 Thrombocytopenia Platelets initially trending down, now coming up. Platelets today at 97,000. Thrombocytopenia likely secondary to stress. Continue to monitor platelets Coags within normal limits hypokalemia; hypokalemia improving. Potassium 3.4. Continue to place orally and monitor BMP. PT evaluate and treat - patient will need rehab Prophylaxis - GI - Protonix 40mg Q12 - DVT - SCD Discharge Planning Dc in am. Problem Qualifiers (1) Altered mental status: Qualified Code: R40.1 - Stupor (2) COPD (chronic obstructive pulmonary disease): (3) Bipolar disorder: Qualified Code: F31.9 - Bipolar affective disorder, remission status unspecified (4) Cirrhosis of liver: Qualified Code: K74.60 - Cirrhosis of liver without ascites, unspecified hepatic cirrhosis type (5) GERD (gastroesophageal reflux disease): Qualified Code: K21.9 - Gastroesophageal reflux disease, esophagitis presence not specified (6) Hypertension: Qualified Code: I10 - Essential hypertension (7) Gout: Qualified Code: M10.9 - Gout, unspecified cause, unspecified chronicity, unspecified site Danny Mitchell MD Nov 21, 2016 17:33
[2016-11-21] MEDS: DIVALPROEX SODIUM E.R. 500 MG TAB PO SCH (21:55)
[2016-11-21] MEDS: SODIUM CHLORIDE 0.9% FLUSH 10 ML FLUSH IV FLUSH PRN ×2 (21:57→22:10)
[2016-11-22] VITALS (7 sets, daily range): BP systolic 123–144; BP diastolic 70–84; PULSE 67–96; RESP 16–21; TEMP 96–97.9; O2SAT 95–99
[2016-11-22] MEDS: RESP: ALBUTEROL 2.5 MG/IPRATROPIUM 0.5 MG NEB (SCH) INH ×4 (03:25→20:06)
[2016-11-22] MEDS: CHLORHEXIDINE GLUCONATE 2 % 1 PACK (2 CLOTHS) TOP SCH (04:00)
[2016-11-22] MEDS: methylPREDNISolone SOD SUCC 40 MG/1 ML VIAL IV PUSH SCH (04:57)
[2016-11-22] MEDS: SODIUM CHLORIDE 0.9% FLUSH 10 ML FLUSH IV FLUSH PRN (04:58)
[2016-11-22] MEDS: INSULIN NovoLIN REGULAR SUPPLEMENTAL SCALE SQ SCH ×5 (05:00→21:42)
[2016-11-22] MEDS: CHLORHEXIDINE 0.12% (ORAL KIT) 15 ML CUP MT SCH ×2 (08:00→21:43)
[2016-11-22] MEDS: ARTIFICIAL TEARS OPTH SOLN 15 ML BTL EACH EYE SCH ×3 (09:00→18:00)
[2016-11-22] MEDS: SODIUM CHLORIDE 0.9% FLUSH 10 ML FLUSH IVF SCH (09:00)
[2016-11-22] MEDS: SODIUM CHLORIDE 0.9% FLUSH 10 ML FLUSH IV FLUSH SCH ×2 (09:00→21:43)
[2016-11-22] MEDS: QUEtiapine FUMARATE 25 MG TAB PO SCH ×3 (09:15→16:23)
[2016-11-22] MEDS: DOCUSATE SODIUM 100 MG/10 ML UDC G-TUBE SCH ×2 (09:15→21:00)
[2016-11-22] MEDS: levETIRAcetam 500 MG TAB PO SCH ×2 (09:15→21:34)
[2016-11-22] MEDS: PANTOPRAZOLE SODIUM 40 MG VIAL IV PUSH SCH ×2 (11:15→21:34)
[2016-11-22] MEDS ORDERED: QUET1TAB7 PO (13:18)
[2016-11-22] MEDS ORDERED: LEVE500 PO (13:18)
[2016-11-22] MEDS ORDERED: DEPA500T3 PO (13:18)
--- NOTE | 2016-11-22 13:26 | HHI.DCPOC ---
Discharge Care Plan Diagnosis: (1) Seizure disorder (2) Agitation (3) Hypertension (4) Acute hypercapnic respiratory failure (5) COPD (chronic obstructive pulmonary disease) (6) Bipolar disorder (7) Cirrhosis of liver (8) Respiratory failure (9) Altered mental status (10) GERD (gastroesophageal reflux disease) (11) Poor intravenous access (12) Hepatitis B and C (13) Confusion (14) Respiratory failure Goals to Promote Your Health * To prevent worsening of your condition and complications * To maintain your health at the optimal level Directions to Meet Your Goals Take your medications as prescribed Follow your dietary instruction Follow activity as directed Keep your appointments as scheduled Take your immunizations and boosters as scheduled If your symptoms worsen call your PCP, if no PCP go to Urgent Care Center or Emergency Room Smoking is Dangerous to Your Health. Avoid second hand smoke Call the 24-hour hour crisis hotline for domestic abuse at Danny Mitchell MD Nov 22, 2016 13:26
[2016-11-22] MEDS ORDERED: PRED20 PO (13:31)
[2016-11-22] MEDS ORDERED: LEVO500T3 PO (13:31)
[2016-11-22] MEDS ORDERED: LACTTAB8 PO (13:32)
--- NOTE | 2016-11-22 13:38 | HHI.DS ---
Discharge Summary Admission Date Nov 13, 2016 at 18:47 Discharge Date: Nov 22, 2016 Admitting Diagnosis altered mental status, respiratory failure, status epilepticus (1) Status epilepticus ICD Code: G40.901 Diagnosis: Principal (2) Altered mental status ICD Code: R41.82 Diagnosis: Principal (3) COPD (chronic obstructive pulmonary disease) ICD Code: J44.9 Diagnosis: Principal (4) Bipolar disorder ICD Code: F31.9 Diagnosis: Secondary (5) Antisocial personality disorder ICD Code: F60.2 Diagnosis: Secondary (6) Cirrhosis of liver ICD Code: K74.60 Diagnosis: Secondary (7) GERD (gastroesophageal reflux disease) ICD Code: K21.9 Diagnosis: Secondary (8) Poor intravenous access ICD Code: Z78.9 Diagnosis: Principal (9) Hepatitis B and C Diagnosis: Secondary (10) Lactic acidosis ICD Code: E87.2 Diagnosis: Principal (11) Elevated TSH ICD Code: R94.6 Diagnosis: Principal (12) Hypertension ICD Code: I10 Diagnosis: Secondary (13) Gout ICD Code: M10.9 Diagnosis: Secondary (14) Methadone use ICD Code: F11.20 Diagnosis: Secondary (15) Acute hypercapnic respiratory failure ICD Code: J96.02 Diagnosis: Secondary Procedures endotracheal intubation central line placement Brief History - From Admission 61-year-old male. Date of admission 11/13/2016. Past medical history includes hepatitis B and C, underlying seizure disorder, bipolar disorder, anxiety depression, dyslipidemia, alcohol-induced cirrhosis, chronic pancreatitis, hypertension, COPD, gout and chronic low back pain. He presented to the [facility] ED from [facility] with a 2 day history of altered mental status. According to the ED physician records, that nursing facility was attempting to obtain blood samples to check antiepileptic medication levels but were unable to complete secondary to patient having poor peripheral access. At that facility, patient was documented to be having intermittent tonic/clonic jerking motions/seizures with a documented GCS of 11.. Patient was not in a condition to give any meaningful history. There is paperwork stating he is DNR. Patient was given 8 mg of IM Ativan. With this medication, patient still remained tremulous however became less responsive the GCS around 8 with sonorous breath sounds. Nasal trumpet was placed as his saturations were 86%. Eventually he was able to recover to 99% on a nonrebreather mask. CT the head revealed no acute intracranial findings. Pertinent lab work revealed TSH is 16. The ED physician divided 200 of IV Levoxyl. She also provided 100 mg of hydrocortisone. I was contacted by the physicians at this time for ICU admission. Reviewed [facility] DNR status order. This appeared to be signed by Pardeep Peters. The court appointed guardian box was checked. Attempted to contact responsible republican written on [facility] resident information sheet Dianelys Chambers at [phone]. This was non-valid number. Attempted to contact [facility] for alternate contacts. None was provided. Contacted next of kin Edy Peters at [phone]. He states he has been attempting to contact his brother for 2 years. He states the patient's name is "Nolberto". I explained him the patient's current clinical condition of ongoing seizure activity and the patient received medications to suppress the seizure activity and currently the patient was relatively unresponsive and not protecting airway. Explained to him that the patient has a written DNR form. Explained to him that we were unable to contact court-appointed guardian. Patient states that since he has not seen him in 2 years he doesn't want to make the decision to not intubate and wants "everything" done at the present time if the situation is potentially reversible. I discussed this with the ED physician Dr. Norton and general inspector office. This is a uriostegui area but will intubate at the present time in attempt to reverse altered mental status/seizure disorder. Patient was intubated using 20 mg etomidate and 100 mg succinylcholine using 7.5 ET tube. CBC/BMP: 11/20/16 0540 11/20/16 0540 Significant Findings Laboratory Tests Test 11/20/16 05:40 Red Blood Count 4.04 MIL/MM3 (4.50-5.90) Hemoglobin 11.8 GM/DL (13.0-17.0) Hematocrit 34.2 % (39.0-51.0) Platelet Count 94 TH/MM3 (150-450) Potassium Level 3.4 MEQ/L (3.5-5.1) Imaging Last Impressions Chest X-Ray 11/20/16 0000 Signed Impressions: Service Date/Time: Sunday, November 20, 2016 16:56 - CONCLUSION: 1. Central line in good position. 2. The lungs are clear. Clem Iniguez MD Brain MRI 11/16/16 0000 Signed Impressions: Service Date/Time: Wednesday, November 16, 2016 15:27 - CONCLUSION: 1. No acute intracranial abnormality. Clem Iniguez MD Head CT 11/13/16 1659 Signed Impressions: Service Date/Time: Sunday, November 13, 2016 17:36 - CONCLUSION: Negative for acute process. Silvestre Iniguez MD FACR PE at Discharge GENERAL: This is a well-nourished, well-developed patient, in no apparent distress. CARDIOVASCULAR: Regular rate and regular rhythm without murmurs, gallops, or rubs. RESPIRATORY: Diffuse bilateral expiratory wheezing. GASTROINTESTINAL: Abdomen soft, non-tender, nondistended. Normal, active bowel sounds MUSCULOSKELETAL: Extremities without clubbing, cyanosis, or edema. NEURO: awake - seems to be more alert Pt update on day of discharge Patient is very happy because he states that he responded very well to Seroquel , was able to sleep well and feels calm. Cough has greatly improved and the patient is satting well on room air. Denies fevers or chills. Patient has not exhibited agitation and has been off restraints for several days now. Hospital Course Status epilepticus Seizure disorder Bipolar disorder Anxiety/depression History of EtOH abuse Methadone use CT head at admission reveals no acute findings. EEG with no seizure activity MRI brain - negative. Continue thiamine 100 mg daily with history of EtOH use. neurology following. Patient improving every day. 11/19 IV Keppra and valproic acid changed to oral by neurology. Psych consulted. History of V. tach History of hypertension History of dyslipidemia hydralazine prn. Monitor HR and BP . 11/17 Blood pressure seems to be stable. Continue to monitor on telemetry. Acute Hypercapnic respiratory failure- s/p intubation/ extubation COPD exacerbation Continue with oxygen as needed to keep sat >92% Continue neb treatment 11/19 patient with shortness of breath and wheezing. I will start the patient on prednisone and Augmentin. 11/20 the patient continues to be short of breath, coughing. On examination patient has bilateral expiratory wheezing. I will give IV supplemental 125 mg IV once and then placed on Solu-Medrol 40 mg IV every 8 hours. I will also discontinue Augmentin and place the patient on IV Levaquin. Check a chest x- ray. 11/21 SOB better. continue IV steroids, bronchodilators supplemental o2 and IV levaquin. Hepatitis B/C History of EtOH induced cirrhosis Chronic pancreatitis consulted ST ---> patient needs to have chronic consistency thickened liquids.. Protonix for GI prophylaxis Elevated TSH Noted patient was given 200 g IV Levoxyl in the ED by ED physician. SSI with Accu-Cheks every 6 hours to maintain euglycemia Repeat TSH obtained showed TSH of 3.13 Thrombocytopenia Platelets initially trending down, now coming up. Platelets today at 97,000. Thrombocytopenia likely secondary to stress. Continue to monitor platelets Coags within normal limits hypokalemia; hypokalemia improving. Potassium 3.4. Continue to place orally and monitor BMP. PT evaluate and treat - patient will need rehab Prophylaxis - GI - Protonix 40mg Q12 - DVT - SCD Pt Condition on Discharge: Stable Discharge Disposition: [facility] Discharge Time: > 30 minutes Discharge Instructions DIET: Follow Instructions for: Heart Healthy Diet Speech Therapy-Diet Recommends: Honey Thickened Liquids Activities you can perform: See Additionl Instruction Activities to Avoid: Strenuous Activity Other Activity Instructions: out of bed with assistance Follow up Referrals: Neurology - 2 Weeks with Elder Hillman MD PCP Follow-up - 1 Week New Medications: Lactobacillus Acidophilus (Lactobacillus Acidophilus) 1 Tab Tab 1 TAB PO TIDAC Nutritional Supplement #30 Ref 0 TAB Levofloxacin (Levofloxacin) 500 Mg Tab 500 MG PO DAILY Infection #5 Ref 0 TAB Prednisone (Prednisone) 20 Mg Tab 20 MG PO DIRECTED 40 MG twice a day x 3 days, then 20 MG daily x 3 days, then 10 MG daily x 3 days Inflammation #11 Ref 0 TAB Divalproex ER (Depakote ER) 500 Mg Bassam 1000 MG PO HS Seizure Control #30 TAB Levetiracetam (Keppra) 500 Mg Tab 1500 MG PO Q12HR Seizure Control #62 TAB Quetiapine (Quetiapine) 25 Mg Tab 25 MG PO TID Agitation #30 TAB Continued Medications: Acetaminophen (Tylenol) 325 Mg Cap 325 MG PO BID PRN PAIN OR FEVER Ref 0 CAP Albuterol 18 GM Inh (Ventolin Hfa 18 GM Inh) 90 Mcg/Act Aer 2 PUFF INH Q4-6H PRN SHORTNESS OF BREATH #1 Ref 0 INHALER Calcium Carbonate-Cholecalciferol (Calcium + D3) 600-200 Mg-Unit Tab 1 TAB PO BID TAB Ipratropium-Albuterol Neb (Duoneb) 0.5-2.5 Mg/3 Ml Neb 1 NEBULE INH QID PRN SOB/WHEEZING #120 Ref 0 NEBULE Sertraline (Zoloft) 100 Mg Tab 200 MG PO DAILY #30 Ref 0 TAB Sodium Chloride Nasal Inh (Nasal Mist Inh) 0.9 % Aer 1 SPRAY EACH NARE Q4H PRN NASAL CONGESTION #1 Ref 0 INHALER Thiamine Mononitrate (Vitamin B-1) 100 Mg Tab Trazodone (Trazodone) 100 Mg Tab 250 MG PO HS Control Depression #30 Ref 0 TAB Discontinued Medications: Divalproex ER (Depakote ER) 250 Mg Bassam 250 MG PO DAILY Control Seizures #30 Ref 0 TAB Divalproex ER (Depakote ER) 500 Mg Bassam 500 MG PO DAILY Control Seizures #30 Ref 0 TAB Hydroxyzine HCl (Hydroxyzine HCl) 25 Mg Tab 25 MG PO QID PRN ALLERGIES OR ANXIETY Ref 0 TAB Levetiracetam (Keppra) 750 Mg Tab 750 MG PO BID Control Seizures #60 Ref 0 TAB Meloxicam (Mobic) 15 Mg Tab 15 MG PO DAILY Arthritis pain Ref 0 TAB Methadone (Methadone) 5 Mg Tab 5 MG PO 1800 TAB Throat Lozenges (Adams Cough Drops) 1 Leni Leni 1 LOZENGE PO Q2H PRN COUGH Ref 0 Danny Castaneda MD Nov 22, 2016 13:38
[2016-11-22] MEDS: DIVALPROEX SODIUM E.R. 500 MG TAB PO SCH (21:31)
[2016-11-22] MEDS: predniSONE 20 MG TAB PO SCH (21:34)
[2016-11-23] VITALS: BP 138/57; PULSE 78; RESP 16; TEMP 97.6; O2SAT 97
[2016-11-23 04:00] VITALS: BP 112/82; PULSE 74; RESP 20; TEMP 98; O2SAT 98
[2016-11-23] MEDS: CHLORHEXIDINE GLUCONATE 2 % 1 PACK (2 CLOTHS) TOP SCH (04:00)
[2016-11-23] MEDS: RESP: ALBUTEROL 2.5 MG/IPRATROPIUM 0.5 MG NEB (SCH) INH ×2 (04:02→09:12)
[2016-11-23] MEDS: INSULIN NovoLIN REGULAR SUPPLEMENTAL SCALE SQ SCH ×2 (05:27→11:13)
[2016-11-23] MEDS: DOCUSATE SODIUM 100 MG/10 ML UDC G-TUBE SCH (05:28)
[2016-11-23 08:15] VITALS: BP 125/86; PULSE 79; RESP 20; TEMP 96.3; O2SAT 95
[2016-11-23] MEDS: CHLORHEXIDINE 0.12% (ORAL KIT) 15 ML CUP MT SCH (08:46)
[2016-11-23] MEDS ORDERED: LEVOFLOXACIN 750 MG TAB PO SCH (09:00)
[2016-11-23 09:20] VITALS: O2SAT 94
[2016-11-23 09:23] VITALS: O2SAT 98
[2016-11-23] MEDS: QUEtiapine FUMARATE 25 MG TAB PO SCH ×2 (09:47→12:52)
[2016-11-23] MEDS: SODIUM CHLORIDE 0.9% FLUSH 10 ML FLUSH IV FLUSH SCH (09:47)
[2016-11-23] MEDS: levETIRAcetam 500 MG TAB PO SCH (09:47)
[2016-11-23] MEDS: predniSONE 20 MG TAB PO SCH (09:47)
[2016-11-23] MEDS: SODIUM CHLORIDE 0.9% FLUSH 10 ML FLUSH IVF SCH (09:48)
[2016-11-23] MEDS: ARTIFICIAL TEARS OPTH SOLN 15 ML BTL EACH EYE SCH ×2 (09:48→12:18)
[2016-11-23] MEDS: PANTOPRAZOLE SODIUM 40 MG VIAL IV PUSH SCH (11:13)
== END 2016-11-23 14:03 | DRG 208 ==
LOC: NEDAMB 15:46 → NEDA 18:47 → NEDH 22:29 → HIME 23:45 → N05B 11-17 22:27
PROVIDERS: ADMIT Hospitalist; ATTEND Hospitalist
PROC: 02HV33Z Insertion of Infusion Device into Superior Vena Cava, Percutaneous Approach (ICD-10-PCS; principal; 2016-11-13)
PROC: 5A1935Z Respiratory Ventilation, Less than 24 Consecutive Hours (ICD-10-PCS; 2016-11-13)
PROC: 0BH17EZ Insertion of Endotracheal Airway into Trachea, Via Natural or Artificial Opening (ICD-10-PCS; 2016-11-13)
PROC: B543ZZA Ultrasonography of Right Jugular Veins, Guidance (ICD-10-PCS; 2016-11-13)
DX: J96.02 Acute respiratory failure with hypercapnia (principal); G93.40 Encephalopathy, unspecified; J44.1 Chronic obstructive pulmonary disease with (acute) exacerbation; D69.59 Other secondary thrombocytopenia; E87.2 Acidosis; F03.90 Unspecified dementia, unspecified severity, without behavioral disturbance, psychotic disturbance, mood disturbance, and anxiety; K86.1 Other chronic pancreatitis; B19.10 Unspecified viral hepatitis B without hepatic coma; G40.901 Epilepsy, unspecified, not intractable, with status epilepticus; D69.6 Thrombocytopenia, unspecified; K70.30 Alcoholic cirrhosis of liver without ascites; K21.0 Gastro-esophageal reflux disease with esophagitis; I10 Essential (primary) hypertension; B19.20 Unspecified viral hepatitis C without hepatic coma; E07.81 Sick-euthyroid syndrome; E87.6 Hypokalemia; H91.93 Unspecified hearing loss, bilateral; G47.00 Insomnia, unspecified; G89.29 Other chronic pain; M54.5 Low back pain; M10.9 Gout, unspecified; R40.2433 Glasgow coma scale score 3-8, at hospital admission; E78.5 Hyperlipidemia, unspecified; R01.1 Cardiac murmur, unspecified; F10.20 Alcohol dependence, uncomplicated; F11.90 Opioid use, unspecified, uncomplicated; F14.10 Cocaine abuse, uncomplicated; F12.10 Cannabis abuse, uncomplicated; F31.9 Bipolar disorder, unspecified; F41.9 Anxiety disorder, unspecified; F63.81 Intermittent explosive disorder; F60.2 Antisocial personality disorder; Z66 Do not resuscitate; Z78.1 Physical restraint status; Z91.14 Patient's other noncompliance with medication regimen
CPT/HCPCS: 31500; 36600; 51702; 70450; 70551; 71010; 80048; 80053; 80164; 80177; 80307; 81001; 82140; 82550; 82607; 82805; 82948; 83605; 83690; 83735; 84100; 84132; 84439; 84443; 84481; 84484; 85007; 85014; 85018; 85025; 85027; 85384; 85610; 85730; 86850; 86900; 86901; 87040; 87641; 93005; 94002; 94003; 94640; 94664; 95819; 96372; 96374; 99292; C9113; J0330; J1720; J1953; J1956; J2060; J2250; J2543; J2920; J2930; J3010; J3370; J3420; J3475; J3480; J7030; J7042; J7050; J7512; J7613

== ENCOUNTER 2017-06-02 16:04 | Inpatient (IN) | payer OTHER ==
[~2017-06-02] VITALS: Ht 182.9 cm; Wt 79.4 kg
[~2017-06-02 16:04] MED LIST changes: -CHERLOZ PO; +DEPA500T3 PO; -DIVA250T3 PO; -HYDR-3133 PO; -KEPP750T PO; +LACTTAB8 PO; +LEVE500 PO; +LEVO500T3 PO; -MOBI15TA PO; +PRED20 PO; +QUET1TAB7 PO; -SERO50TA PO
[2017-06-02 18:05] VITALS: BP 125/71; PULSE 54; RESP 16; TEMP 97.9; O2SAT 98
--- NOTE | 2017-06-02 18:42 | PD ---
HPI Chief Complaint: Suicide Ideation/Attempt Time Seen by Provider: 18:40 Travel History International Travel<30 days: No Contact w/Intl Traveler<30days: No Traveled to known affect area: No History of Present Illness HPI Patient comes from an [facility] reported having more frequent seizures. Patient is on Keppra twice a day. Patient has a history of substance abuse. Patient complaining of more frequent seizure the past 2 weeks. Reports taking all medication as given to him by the facility. Patient also complaining of left- sided chest pain as describes as a soreness that comes and goes that began yesterday. Denies any radiation of the pain. Denies anything making it better or worse. Denies any shortness breath, nausea and vomiting, abdominal pain, tingling anywhere, headaches, or loss or change in bowel or bladder. Patient also states he's had thoughts of possibly harming himself, but does not give a clear plan. Patient states he was just getting scared because there have been multiple deaths at the facility recently. PFSH Past Medical History Arthritis: No Asthma: No Autoimmune Disease: No Blood Disorders: No Bipolar Disorder: Yes Anxiety: Yes Depression: Yes Heart Rhythm Problems: Yes (HX OF PAROXYSMAL VENTRICULAR TACHYCARDIA) Cancer: No Cardiovascular Problems: Yes High Cholesterol: Yes Chemotherapy: No Chest Pain: Yes Congestive Heart Failure: No Cirrhosis: Yes COPD: Yes Cerebrovascular Accident: No Dementia: Yes Diabetes: No Diminished Hearing: Yes (BILATERAL) Endocrine: No Gastrointestinal Disorders: Yes (CHRONIC PANCREATITIS, CIRRHOSIS) GERD: No Glaucoma: No Gout: Yes Genitourinary: No Headaches: No Hepatitis: Yes (HEP C AND B) Hiatal Hernia: No Hypertension: Yes Immune Disorder: No Insomnia: Yes Kidney Stones: No Musculoskeletal: Yes (per hx..CHRONIC LOW BACK PAIN) Neurologic: Yes Psychiatric: Yes Reproductive: No Respiratory: Yes Immunizations Current: Yes Migraines: No Myocardial Infarction: No Pancreatitis: Yes Radiation Therapy: No Renal Failure: No Seizures: Yes Sickle Cell Disease: No Sleep Apnea: No Thyroid Disease: No Ulcer: No Past Surgical History Abdominal Surgery: Yes AICD: No Appendectomy: Yes Arteriovenous Shunt: No Cardiac Surgery: No Cholecystectomy: Yes (DENIES) Ear Surgery: No Endocrine Surgery: No Eye Surgery: No Genitourinary Surgery: No Gynecologic Surgery: No Insulin Pump: No Joint Replacement: No Neurologic Surgery: No Oral Surgery: No Pacemaker: No Thoracic Surgery: No Tonsillectomy: Yes Other Surgery: Yes (RIGHT LOWER ABDOMEN) Social History Alcohol Use: No (UNABLE TO OBTAIN) Tobacco Use: No Substance Use: No Allergies-Medications (Allergen,Severity, Reaction): Coded Allergies: No Known Allergies (Verified , 11/13/16) Per patient. Reported Meds & Prescriptions Reported Meds & Active Scripts Active Lactobacillus Acidophilus 1 Tab Tab 1 Tab PO TIDAC Prednisone 20 Mg Tab 20 Mg PO DIRECTED 40 MG twice a day x 3 days, then 20 MG daily x 3 days, then 10 MG daily x 3 days Levofloxacin 500 Mg Tab 500 Mg PO DAILY Quetiapine (Quetiapine Fumarate) 25 Mg Tab 25 Mg PO TID Keppra (Levetiracetam) 500 Mg Tab 1,500 Mg PO Q12HR Depakote ER (Divalproex Sodium) 500 Mg Bassam 1,000 Mg PO HS Reported Duoneb (Ipratropium-Albuterol Neb) 0.5-2.5 Mg/3 Ml Neb 1 Nebule INH QID PRN Trazodone (Trazodone HCl) 100 Mg Tab 250 Mg PO HS Calcium + D3 (Calcium Carbonate-Cholecalciferol) 600-200 Mg-Unit Tab 1 Tab PO BID Vitamin B-1 (Thiamine Mononitrate) 100 Mg Tab Zoloft (Sertraline HCl) 100 Mg Tab 200 Mg PO DAILY Ventolin Hfa 18 GM Inh (Albuterol Sulfate) 90 Mcg/Act Aer 2 Puff INH Q4-6H PRN Nasal Mist Inh (Sodium Chloride) 0.9 % Aer 1 [place] EACH NARE Q4H PRN Tylenol (Acetaminophen) 325 Mg Cap 325 Mg PO BID PRN Review of Systems Except as stated in HPI: all other systems reviewed are Neg Physical Exam Narrative GENERAL: Well-developed, well nourished, in no acute distress, and non-ill appearing. SKIN: Focused skin assessment warm and dry. HEAD: Atraumatic. Normocephalic. EYES: Pupils equal and round. EOMI. No scleral icterus. No injection or drainage. ENT: No nasal bleeding or discharge. Mucous membranes pink and moist. NECK: Trachea midline. No JVD. Supple. No nuclear rigidity. CARDIOVASCULAR: Regular rate and rhythm. No murmur appreciated. RESPIRATORY: No accessory muscle use. No respiratory distress. Clear to auscultation. Breath sounds equal bilaterally. GASTROINTESTINAL: Abdomen soft, non-tender, nondistended, and no guarding. Hepatic and splenic margins not palpable. No pulsatile mass. MUSCULOSKELETAL: No obvious deformities. No clubbing. No cyanosis. No edema. Full range of motion. NEUROLOGICAL: Awake and alert. No obvious cranial nerve deficits. Motor grossly within normal limits. Normal speech. PSYCHIATRIC: Appropriate mood and affect; insight and judgment normal. Data Data Last Documented VS Vital Signs Date Time Temp Pulse Resp B/P (MAP) Pulse Ox O2 Delivery O2 Flow Rate FiO2 06/02/17 19:20 97 Room Air 06/02/17 19:20 53 14 06/02/17 18:05 97.9 Orders Orders Electrocardiogram (06/02/17 18:36) Ckmb (Isoenzyme) Profile (06/02/17 18:36) Complete Blood Count With Diff (06/02/17 18:36) Comprehensive Metabolic Panel (06/02/17 18:36) Magnesium (Mg) (06/02/17 18:36) Prothrombin Time / Inr (Pt) (06/02/17 18:36) Act Partial Throm Time (Ptt) (06/02/17 18:36) Troponin I (06/02/17 18:36) Chest, Single Ap (06/02/17 18:36) Ecg Monitoring (06/02/17 18:36) Bilateral Bp Monitoring (06/02/17 18:36) Iv Access Insert/Monitor (06/02/17 18:36) Oximetry (06/02/17 18:36) Oxygen Administration (06/02/17 18:36) Sodium Chloride 0.9% Flush (Ns Flush) (06/02/17 18:45) Drug Screen, Random Urine (06/02/17 18:36) Ct Brain W/O Iv Contrast(Rout) (06/02/17 ) Psych Screen (06/02/17 18:36) Alcohol (Ethanol) (06/02/17 18:36) Levetiracetam (06/02/17 18:36) Labs Laboratory Tests Test 06/02/17 19:25 06/02/17 20:15 06/02/17 21:10 Urine Opiates Screen NEG Urine Barbiturates Screen NEG Urine Amphetamines Screen NEG Urine Benzodiazepines Screen NEG Urine Cocaine Screen NEG Urine Cannabinoids Screen NEG Blood Urea Nitrogen 6 MG/DL Creatinine 0.84 MG/DL Random Glucose 75 MG/DL Total Protein 8.8 GM/DL Albumin 3.5 GM/DL Calcium Level 9.1 MG/DL Magnesium Level 1.6 MG/DL Alkaline Phosphatase 54 U/L Aspartate Amino Transf (AST/SGOT) 34 U/L Alanine Aminotransferase (ALT/SGPT) 28 U/L Total Bilirubin 0.4 MG/DL Sodium Level 138 MEQ/L Potassium Level 3.9 MEQ/L Chloride Level 104 MEQ/L Carbon Dioxide Level 26.5 MEQ/L Anion Gap 8 MEQ/L Estimat Glomerular Filtration Rate 93 ML/MIN Total Creatine Kinase 50 U/L Troponin I LESS THAN 0.02 NG/ML Ethyl Alcohol Level LESS THAN 3 MG/DL White Blood Count 3.4 TH/MM3 Red Blood Count 4.47 MIL/MM3 Hemoglobin 13.5 GM/DL Hematocrit 39.9 % Mean Corpuscular Volume 89.4 FL Mean Corpuscular Hemoglobin 30.2 PG Mean Corpuscular Hemoglobin Concent 33.8 % Red Cell Distribution Width 13.9 % Platelet Count 105 TH/MM3 Mean Platelet Volume 7.5 FL Neutrophils (%) (Auto) 41.7 % Lymphocytes (%) (Auto) 47.9 % Monocytes (%) (Auto) 8.2 % Eosinophils (%) (Auto) 1.9 % Basophils (%) (Auto) 0.3 % Neutrophils # (Auto) 1.4 TH/MM3 Lymphocytes # (Auto) 1.6 TH/MM3 Monocytes # (Auto) 0.3 TH/MM3 Eosinophils # (Auto) 0.1 TH/MM3 Basophils # (Auto) 0.0 TH/MM3 CBC Comment DIFF FINAL Differential Comment Prothrombin Time 12.6 SEC Prothromb Time International Ratio 1.1 RATIO Activated Partial Thromboplast Time 27.9 SEC MDM Medical Decision Making Medical Screen Exam Complete: Yes Emergency Medical Condition: Yes Interpretation(s) EKG reviewed by Dr. Gates shows bradycardia with a ventricular rate of 52. No STEMI. Differential Diagnosis Acute coronary syndrome, pneumonia, electrolyte abnormality, atypical chest pain , tumor, suicidal, homicidal, other Narrative Course Patient was seen and examined. Labs were obtained and reviewed with the exception of Keppra which is currently pending. Discussed patient with Dr. Gates, who is in agreement with plan of care and disposition. Patient medically cleared for further treatment and evaluation by psych. Final disposition per psych. Diagnosis Primary Impression: Seizure disorder Additional Impressions: Chest pain Qualified Codes: R07.9 - Chest pain, unspecified Suicidal ideations Condition: Stable John Bell Jun 02, 2017 18:42
[2017-06-02] MEDS ORDERED: SODIUM CHLORIDE 0.9% FLUSH 10 ML FLUSH IVF PRN (18:45)
--- NOTE | 2017-06-02 19:09 | RADRPT ---
EXAM DATE/TIME: 06/02/2017 19:02 [facility] COMPARISON: CHEST SINGLE AP, November 20, 2016, 16:56. INDICATIONS : Chest pain. MEDICAL HISTORY : None. SURGICAL HISTORY : None. ENCOUNTER: Initial ACUITY: 1 week PAIN SCORE: 6/10 LOCATION: Left chest FINDINGS: A single view of the chest demonstrates the lungs to be symmetrically aerated without evidence of mas s, infiltrate or effusion. The cardiomediastinal contours are unremarkable. Osseous structures are intact. CONCLUSION: No acute disease. No significant change has occurred. Orlando Fuentes MD on June 02, 2017 at 19:06 Board Certified Radiologist. This report was verified electronically.
[2017-06-02 19:20] VITALS: BP_SYST 132; BP_SYST 135; BP_DIAS 76; BP_DIAS 80; PULSE 53; RESP 14; O2SAT 97
--- NOTE | 2017-06-02 20:05 | RADRPT ---
EXAM DATE/TIME: 06/02/2017 19:37 [facility] COMPARISON: CT BRAIN W/O CONTRAST, November 13, 2016, 17:36. INDICATIONS : Altered. Possible seizure. RADIATION DOSE: 31.83 CTDIvol (mGy) MEDICAL HISTORY : Seizures. Dementia. Hypertension. SURGICAL HISTORY : None. ENCOUNTER: Initial ACUITY: 1 day PAIN SCALE: 0/10 LOCATION: cranial TECHNIQUE: Multiple contiguous axial images were obtained of the head. Using automated exposure control and adj ustment of the mA and/or kV according to patient size, radiation dose was kept as low as reasonably a chievable to obtain optimal diagnostic quality images. DICOM format image data is available electro nically for review and comparison. FINDINGS: CEREBRUM: The ventricles mildly prominent with cortical sulci being prominent consistent with atrophy. No evid ence of midline shift, mass lesion, hemorrhage or acute infarction. No extra-axial fluid collections are seen. POSTERIOR FOSSA: The cerebellum and brainstem are intact. The 4th ventricle is midline. The cerebellopontine angle i s unremarkable. EXTRACRANIAL: The visualized portion of the orbits is intact. SKULL: The calvaria is intact. No evidence of skull fracture. CONCLUSION: Stable CT brain scan. Atrophy. No acute intracranial process. Orlando Fuentes MD on June 02, 2017 at 20:03 Board Certified Radiologist. This report was verified electronically.
[2017-06-02 21:02] LABS: ALBUMIN 3.5 GM/DL (3.4-5.0); AST (GOT) 34 U/L (15-37); BICARBONATE 26.5 MEQ/L (21.0-32.0); BLOOD UREA NITROGEN 6 MG/DL (7-18); CALCIUM 9.1 MG/DL (8.5-10.1); CHLORIDE 104 MEQ/L (98-107); CREATININE 0.84 MG/DL (0.60-1.30); GLOMERULAR FILTRATION RATE 93 ML/MIN (>89); GLUCOSE,RANDOM 75 MG/DL (74-106); MAGNESIUM 1.6 MG/DL (1.5-2.5); SODIUM (NA) 138 MEQ/L (136-145)
[2017-06-02 21:03] LABS: ALT (GPT) 28 U/L (12-78)
[2017-06-02 21:06] LABS: ALKALINE PHOSPHATASE 54 U/L (45-117); TOTAL BILIRUBIN ADULT 0.4 MG/DL (0.2-1.0); TOTAL PROTEIN 8.8 GM/DL (6.4-8.2); TROPONIN I LESS THAN 0.02 NG/ML (0.02-0.05)
[2017-06-02 21:28] LABS: AUTOMATED NEUTROPHIL # 1.4 TH/MM3 (1.8-7.7); BASOPHIL % 0.3 % (0.0-2.0); EOSINOPHIL # 0.1 TH/MM3 (0-0.4); EOSINOPHIL % 1.9 % (0.0-4.0); HEMATOCRIT 39.9 % (39.0-51.0); HEMOGLOBIN 13.5 GM/DL (13.0-17.0); LYMPH % 47.9 % (9.0-44.0); LYMPHOCYTE # 1.6 TH/MM3 (1.0-4.8); MEAN CELL VOLUME 89.4 FL (80.0-100.0); MEAN CORPUSCULAR HEMOGLOBIN 30.2 PG (27.0-34.0); MEAN CORPUSCULAR HGB CONC 33.8 % (32.0-36.0); MEAN PLATELET VOLUME 7.5 FL (7.0-11.0); MONO % 8.2 % (0.0-8.0); MONOCYTE # 0.3 TH/MM3 (0-0.9); NEUT % 41.7 % (16.0-70.0); PLATELET COUNT 105 TH/MM3 (150-450); RED BLOOD COUNT 4.47 MIL/MM3 (4.50-5.90); RED CELL DISTRIBUTION WIDTH 13.9 % (11.6-17.2); WHITE BLOOD COUNT 3.4 TH/MM3 (4.0-11.0)
[2017-06-02 21:37] LABS: INTERNATIONAL NORMALIZED RATIO 1.1 RATIO; PROTHROMBIN TIME - PATIENT 12.6 SEC (9.8-11.6)
[2017-06-02 23:52] VITALS: BP 122/66; PULSE 53; RESP 14; O2SAT 97
[2017-06-03] MEDS ORDERED: hydrOXYzine HCL 50 MG TAB PO PRN (01:00)
[2017-06-03] MEDS ORDERED: MAGNESIUM HYDROXIDE SUSP 30 ML CUP PO PRN (01:00)
[2017-06-03] MEDS ORDERED: BENZTROPINE MESYLATE 1 MG TAB PO PRN (01:00)
[2017-06-03] MEDS ORDERED: ALUMINUM/MAGNESIUM/SIMETH 30 ML CUP PO PRN (01:00)
[2017-06-03] MEDS ORDERED: BENZTROPINE MESYLATE 2 MG/2 ML VIAL IM PRN (01:00)
[2017-06-03] MEDS ORDERED: LORazepam 1 MG TAB PO PRN (01:00)
[2017-06-03] MEDS ORDERED: ALBUTEROL SULFATE 90 MCG/ACT HFA 8 GM INHALER INH PRN ×2 (01:00→11:15)
[2017-06-03] MEDS ORDERED: diphenhydrAMINE HCL 50 MG CAP PO PRN (01:00)
[2017-06-03] MEDS ORDERED: diphenhydrAMINE HCL 50 MG/ML VIAL - HS PRN IM (01:00)
[2017-06-03] MEDS ORDERED: LORazepam 2 MG/ML VIAL IM PRN (01:00)
[2017-06-03] MEDS ORDERED: diphenhydrAMINE HCL 50 MG/ML VIAL IM PRN (01:00)
[2017-06-03 02:10] VITALS: BP 121/78; PULSE 66; RESP 19; TEMP 98; O2SAT 99
[2017-06-03 06:51] VITALS: BP 122/63; PULSE 56; RESP 16; TEMP 97.9; O2SAT 91
[2017-06-03] MEDS: CALCIUM/VITAMIN D 250 MG/125 U TAB PO SCH ×2 (09:00→21:02)
[2017-06-03] MEDS ORDERED: SERTRALINE HCL 100 MG TAB PO SCH (09:00)
[2017-06-03] MEDS ORDERED: levETIRAcetam 500 MG TAB PO SCH (09:00)
--- NOTE | 2017-06-03 11:41 | HHI.HP ---
Provisional Diagnosis Admission Date Jun 03, 2017 at 00:35 [place] I. Bipolar disorder mixed in partial remission f 31.77 seizure disorder G 40.90 Certification of Person's Competence To Provide Express and Informed Consent I have personally examined Pardeep Peters , a person being served at [facility] on, Jun 03, 2017 11:25. Express and informed consent means consent voluntarily given in writing, by a competent person, after sufficient explanation and disclosure of the subject matter involved to enable the person to make a knowing and willful decision without any element of force, fraud, deceit, duress, or other form of constraint or coercion. This person is 18 years of age or older, is not now known to be incompetent to consent to treatment with a guardian advocate, and does not have a health care surrogate or proxy currently making medical treatment decisions. I have found this person to be one of the following: xxx[] Competent to provide express and informed consent, as defined above, for voluntary admission to this facility and is competent to provide express and informed consent for treatment. He/she has the consistent capacity to make well reasoned, willful, and knowing decisions concerning his or her medical or mental health treatment. The person fully and consistently understands the purpose of the admission for examination/placement and is fully capable of personally exercising all rights assured [place] Incompetent to provide express and informed consent to voluntary admission, and this is incompetent to provide express and informed consent to treatment. The person must be transferred to involuntary status and a petition for a guardian advocate filed with the Circuit Court. [] Refusing to provide express and informed consent to voluntary admission but is competent to provide express and informed consent for treatment. The person must be discharged or transferred to involuntary status. Form shall be completed within 24 hours of a person's arrival at the receiving facility and filed in the clinical record of each person: 1. Admitted on a voluntary basis 2. Permitted to provide express and informed consent to his/her own treatment 3. Allowed to transfer from involuntary to voluntary status 4. Prior to permitting a person to consent to his or her own treatment after having been previously found incompetent to consent to treatment. History of Present Illness Capacity: Has Capacity Psych Chief Complaint: patient is some increased depression vague suicidal ideation also concerned HPI Patient is a 66-year-old white male well-known post multiple prior contacts comes her voluntarily [facility] he has been a resident. History of increased seizure activity. He states he has lapses in memory related to this that he i has lack of bladder control with this and generalized shakes and tremors. He states she's been compliant with his medications. This is cause some to become somewhat depressed with vague suicidal ideation. He denies any alcohol use in over a year and a half, he states his use no cocaine in a few years. Review of our EMR shows documentation no significant alcohol abuse along with marijuana and cocaine abuse over a number of years. Other just I did see this patient for 817 in consultation for similar behavior since that time I recommended Seroquel for this patient and allow him to be discharged and return to his [facility]. In any Event at the present time patient does meet criteria for continued observation and assessment. For both mental health issues. And his neurological issues. There is a Her blood level ordered. I did order a Depakote blood level today. Will continue medications per the EMR. In have a neurology consult. We also have hospice consulted already. Hopeless to be a fairly short stay and he can return to [facility] Review of Systems Constitutional: DENIES: Diaphoretic episodes, Fatigue, Fever, Weight gain, Weight loss, Chills, Dizziness, Change in appetite, Night Sweats Endocrine: DENIES: Heat/cold intolerance, Polydipsia, Polyuria, Polyphagia Eyes: DENIES: Blurred vision, Diplopia, Eye inflammation, Eye pain, Vision loss , Photosensitivity, Double Vision Ears, nose, mouth, throat: DENIES: Tinnitus, Hearing loss, Vertigo, Nasal discharge, Oral lesions, Throat pain, Hoarseness, Ear Pain, Running Nose, Epistaxis, Sinus Pain, Toothache, Odynophagia Respiratory: DENIES: Apneas, Cough, Snoring, Wheezing, Hemoptysis, Sputum production, Shortness of breath Cardiovascular: DENIES: Chest pain, Palpitations, Syncope, Dyspnea on Exertion , PND, Lower Extremity Edema, Orthopnea, Claudication Gastrointestinal: DENIES: Abdominal pain, Black stools, Bloody stools, Constipation, Diarrhea, Nausea, Vomiting, Difficulty Swallowing, Anorexia Genitourinary: DENIES: Sexual dysfunction, Urinary frequency, Urinary incontinence, Urgency, Hematuria, Dysuria, Nocturia, Penile Discharge, Testicular Pain, Testicular Swelling Musculoskeletal: DENIES: Joint pain, Muscle aches, Stiffness, Joint Swelling, Back pain, Neck pain Integumentary: DENIES: Abnormal pigmentation, Nail changes, Pruritus, Rash Hematologic/lymphatic: DENIES: Bruising, Lymphadenopathy Immunologic/allergic: DENIES: Eczema, Urticaria Neurologic: COMPLAINS OF: Seizures Psychiatric: COMPLAINS OF: Depression, Suicidal Ideation (vague) Past Psych History 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 trauma history Patient history polysubstance abuse multiple psychiatric hospitalizations Violence risk - others (6 mos) Low Violence risk - self (6 mos) Moderate has had suicidal ideation. Substance Abuse History Drugs/Alcohol past 12 months Patient denies any alcohol or drug use with the past year and a half Past Family Social History Coded Allergies: No Known Allergies (Verified , 11/13/16) Per patient. Past Medical History History of seizure disorder Active Scripts Lactobacillus Acidophilus (Lactobacillus Acidophilus) 1 Tab Tab, 1 TAB PO TIDAC for Nutritional Supplement, #30 TAB 0 Refills Prov:Danny Mitchell MD 11/22/16 Quetiapine (Quetiapine) 25 Mg Tab, 25 MG PO TID for Agitation, #30 TAB Prov:Danny Mitchell MD 11/22/16 Levetiracetam (Keppra) 500 Mg Tab, 1500 MG PO Q12HR for Seizure Control, #62 TAB Prov:Danny Mitchell MD 11/22/16 Divalproex ER (Depakote ER) 500 Mg Bassam, 1000 MG PO HS for Seizure Control, # 30 TAB Prov:Danny iMtchell MD 11/22/16 Reported Medications Ipratropium-Albuterol Neb (Duoneb) 0.5-2.5 Mg/3 Ml Neb, 1 NEBULE INH QID Y for SOB/WHEEZING, #120 NEBULE 0 Refills 09/04/16 Trazodone (Trazodone) 100 Mg Tab, 250 MG PO HS for Control Depression, #30 TAB 0 Refills 09/04/16 Calcium Carbonate-Cholecalciferol (Calcium + D3) 600-200 Mg-Unit Tab, 1 TAB PO BID, TAB 09/04/16 Thiamine Mononitrate (Vitamin B-1) 100 Mg Tab 09/04/16 Sertraline (Zoloft) 100 Mg Tab, 200 MG PO DAILY, #30 TAB 0 Refills 09/04/16 Albuterol 18 GM Inh (Ventolin Hfa 18 GM Inh) 90 Mcg/Act Aer, 2 PUFF INH Q4-6H Y for SHORTNESS OF BREATH, #1 INHALER 0 Refills 09/04/16 Sodium Chloride Nasal Inh (Nasal Mist Inh) 0.9 % Aer, 1 SPRAY EACH NARE Q4H Y for NASAL CONGESTION, #1 INHALER 0 Refills 09/04/16 Acetaminophen (Tylenol) 325 Mg Cap, 325 MG PO BID Y for PAIN OR FEVER, CAP 0 Refills 09/04/16 Discontinued Scripts Prednisone (Prednisone) 20 Mg Tab, 20 MG PO DIRECTED for Inflammation, #11 TAB 0 Refills 40 MG twice a day x 3 days, then 20 MG daily x 3 days, then 10 MG daily x 3 days Prov:Danny Mitchell MD 11/22/16 Levofloxacin (Levofloxacin) 500 Mg Tab, 500 MG PO DAILY for Infection, #5 TAB 0 Refills Prov:Danny Mitchell MD 11/22/16 Current Medications Medications (Trade) Dose Ordered Sig/Teja Route Start Time Stop Time Status Last Admin (NS Flush) 2 ml UNSCH PRN IVF 06/02/17 18:45 (Ativan) 1 mg Q6H PRN PO 06/03/17 01:00 (Ativan Inj) 1 mg Q6H PRN IM 06/03/17 01:00 (Atarax) 50 mg Q6H PRN PO 06/03/17 01:00 (Benadryl) 50 mg Q6H PRN PO 06/03/17 01:00 (Benadryl Inj) 50 mg Q6H PRN IM 06/03/17 01:00 (Cogentin) 1 mg Q12H PRN PO 06/03/17 01:00 (Cogentin Inj) 1 mg Q12H PRN IM 06/03/17 01:00 (Benadryl) 50 mg HS PRN PO 06/03/17 01:00 (Benadryl Inj) 50 mg HS PRN IM 06/03/17 01:00 (Tylenol) 650 mg Q4H PRN PO 06/03/17 01:00 (Milk Of Magnesia Liq) 30 ml DAILY PRN PO 06/03/17 01:00 (Mag-Al Plus Susp Liq) 30 ml Q6H PRN PO 06/03/17 01:00 (Proair Hfa Inh) 2 puff Q4H PRN INH 06/03/17 01:00 (Zoloft) 200 mg DAILY PO 06/03/17 09:00 06/03/17 09:00 (Oscal-D 250-125) 500 mg BID PO 06/03/17 09:00 06/03/17 09:00 (Desyrel) 100 mg HS PO 06/03/17 21:00 (Depakote Er) 1,000 mg HS PO 06/03/17 21:00 (Keppra) 1,500 mg Q12HR PO 06/03/17 09:00 06/03/17 09:00 (Proair Hfa Inh) 2 puff Q4H PRN INH 06/03/17 11:15 UNV (Depakote Er) 1,000 mg HS PO 06/03/17 21:00 UNV (Lactinex) 1 tab TIDAC PO 06/03/17 12:00 UNV (Keppra) 1,500 mg Q12HR PO 06/03/17 21:00 UNV Non-Formulary Medication 1 tab BID PO 06/03/17 21:00 UNV Non-Formulary Medication 1 spray Q4H PRN EACH NARE 06/03/17 11:15 UNV (SEROquel) 25 mg TID PO 06/03/17 13:00 UNV (Zoloft) 200 mg DAILY PO 06/04/17 09:00 UNV (Desyrel) 250 mg HS PO 06/03/17 21:00 UNV Family Psych History Unknown at this time Social History Patient lives in [facility] Patient's Strengths (min. 2) Patient verbal able to access healthcare Physical Exam Patient medically cleared ED at the present time patient resting quietly in his room initially somewhat resistant to the interview but coming and increasing cooperativeness through it. He is noted to have some intermittent tremors both upper extremities. Is otherwise in no acute distress, no respiratory distress. No complaints of abdominal pain. Does move all 4 extremities without difficulty Vital Signs Vital Signs Date Time Temp Pulse Resp B/P (MAP) Pulse Ox O2 Delivery O2 Flow Rate FiO2 06/03/17 06:51 97.9 56 16 122/63 (82) 91 06/02/17 23:52 Room Air Lab Results Test 06/02/17 19:25 06/02/17 20:15 06/02/17 21:10 06/02/17 22:25 Urine Opiates Screen NEG Urine Barbiturates Screen NEG Urine Amphetamines Screen NEG Urine Benzodiazepines Screen NEG Urine Cocaine Screen NEG Urine Cannabinoids Screen NEG Blood Urea Nitrogen 6 MG/DL Creatinine 0.84 MG/DL Random Glucose 75 MG/DL Total Protein 8.8 GM/DL Albumin 3.5 GM/DL Calcium Level 9.1 MG/DL Magnesium Level 1.6 MG/DL Alkaline Phosphatase 54 U/L Aspartate Amino Transf (AST/SGOT) 34 U/L Alanine Aminotransferase (ALT/SGPT) 28 U/L Total Bilirubin 0.4 MG/DL Sodium Level 138 MEQ/L Potassium Level 3.9 MEQ/L Chloride Level 104 MEQ/L Carbon Dioxide Level 26.5 MEQ/L Anion Gap 8 MEQ/L Estimat Glomerular Filtration Rate 93 ML/MIN Total Creatine Kinase 50 U/L Troponin I LESS THAN 0.02 NG/ML Ethyl Alcohol Level LESS THAN 3 MG/DL White Blood Count 3.4 TH/MM3 Red Blood Count 4.47 MIL/MM3 Hemoglobin 13.5 GM/DL Hematocrit 39.9 % Mean Corpuscular Volume 89.4 FL Mean Corpuscular Hemoglobin 30.2 PG Mean Corpuscular Hemoglobin Concent 33.8 % Red Cell Distribution Width 13.9 % Platelet Count 105 TH/MM3 Mean Platelet Volume 7.5 FL Neutrophils (%) (Auto) 41.7 % Lymphocytes (%) (Auto) 47.9 % Monocytes (%) (Auto) 8.2 % Eosinophils (%) (Auto) 1.9 % Basophils (%) (Auto) 0.3 % Neutrophils # (Auto) 1.4 TH/MM3 Lymphocytes # (Auto) 1.6 TH/MM3 Monocytes # (Auto) 0.3 TH/MM3 Eosinophils # (Auto) 0.1 TH/MM3 Basophils # (Auto) 0.0 TH/MM3 CBC Comment DIFF FINAL Differential Comment Prothrombin Time 12.6 SEC Prothromb Time International Ratio 1.1 RATIO Activated Partial Thromboplast Time 27.9 SEC Mental Status Examination Appearance: Appropriate Consciousness: Alert Orientation: Person, Place, Date/Time, Situation Motor Activity: Normal gait Speech: Unremarkable Language: Adequate Fund of Knowledge: Adequate Attention and Concentration: Other (fair) Memory: Unremarkable (they are) Mood: Sad, Irritable (mildly) Affect: Other (decreased range and intensity) Thought Process & Associations: Linear Thought Content: Appropriate Hallucination Type: Auditory (somewhat vague) Delusion Type: None Suicidal Ideation: Yes (vague) Suicidal Plan: No Suicidal Intention: No Homicidal Ideation: No Homicidal Plan: No Homicidal Intention: No Insight: Poor Judgment: Poor Assessment & Plan Problem List: (1) Bipolar disorder ICD Codes: F31.9 - Bipolar disorder Status: Acute (2) Seizure disorder ICD Codes: G40.909 - Seizure disorder Status: Chronic Assessment & Plan 7 Estimated LOS: days at the present time patient meets criteria for involuntary psychiatric hospitalization. We will order Depakote blood level await Her blood level, continue medications no change Discharge Planning The further observation for medication management and medical clearance in neurological clearance Request HC Surrog/Guard Advoc?: No Problem Qualifiers (1) Bipolar disorder: Qualified Codes: F31.77 - Bipolar disorder, in partial remission, most recent episode mixed Eder Pina MD Jun 03, 2017 11:41
[2017-06-03] MEDS: LACTOBACILLUS ACIDOPHILUS TAB PO SCH ×2 (12:30→17:00)
[2017-06-03] MEDS ORDERED: PILL SPLITTER OTHER PRN (12:30)
[2017-06-03] MEDS: QUEtiapine FUMARATE 25 MG TAB PO SCH ×2 (13:00→17:00)
--- NOTE | 2017-06-03 13:18 | PD.CONS ---
HPI Service [facility] Hospitalists Consult Requested By Primary Care Physician [facility][Note 3]S [facility] Diagnoses: History of Present Illness Mr. Peters is a 61-year-old male. He came into the hospital secondary to depression and PTSD. She has several medical conditions at baseline but is most concerned regarding his seizures. He says he had a seizure yesterday and that he's been having frequent seizures. No witnessed seizures while admitted here thus far. Other medical conditions are paroxysmal VT, hyperlipidemia, cirrhosis, COPD, dementia, gout, hepatitis C, hepatitis B, hypertension, insomnia, and chronic pancreatitis. He has no chest pain. He's had no syncopal or presyncopal episodes recently. No abdominal pain reported no joint pains reported. no other complaints. Review of Systems Constitutional: DENIES: Diaphoretic episodes, Fatigue, Fever, Weight gain Eyes: DENIES: Blurred vision, Diplopia, Eye inflammation, Eye pain Ears, nose, mouth, throat: DENIES: Vertigo, Nasal discharge, Oral lesions, Throat pain Respiratory: DENIES: Cough, Wheezing, Shortness of breath Cardiovascular: DENIES: Chest pain, Palpitations, Syncope Gastrointestinal: DENIES: Abdominal pain, Black stools, Bloody stools Musculoskeletal: COMPLAINS OF: Joint pain, DENIES: Muscle aches, Stiffness, Joint Swelling Integumentary: DENIES: Abnormal pigmentation, Nail changes, Pruritus, Rash Hematologic/lymphatic: DENIES: Bruising, Lymphadenopathy Immunologic/allergic: DENIES: Eczema, Urticaria Neurologic: COMPLAINS OF: Seizures, DENIES: Abnormal gait, Headache, Paresthesias Past Family Social History Allergies: Coded Allergies: No Known Allergies (Verified , 11/13/16) Per patient. Past Medical History Paroxysmal VT Hyperlipidemia Cirrhosis next line COPD Dementia Chronic pancreatitis Gout Hepatitis C Hepatitis B Hypertension Insomnia Past Surgical History Appendectomy Cholecystectomy Tonsillectomy Reported Medications Reported Meds & Active Scripts Active Lactobacillus Acidophilus 1 Tab Tab 1 Tab PO TIDAC Quetiapine (Quetiapine Fumarate) 25 Mg Tab 25 Mg PO TID Keppra (Levetiracetam) 500 Mg Tab 1,500 Mg PO Q12HR Depakote ER (Divalproex Sodium) 500 Mg Bassam 1,000 Mg PO HS Reported Duoneb (Ipratropium-Albuterol Neb) 0.5-2.5 Mg/3 Ml Neb 1 Nebule INH QID PRN Trazodone (Trazodone HCl) 100 Mg Tab 250 Mg PO HS Calcium + D3 (Calcium Carbonate-Cholecalciferol) 600-200 Mg-Unit Tab 1 Tab PO BID Vitamin B-1 (Thiamine Mononitrate) 100 Mg Tab Zoloft (Sertraline HCl) 100 Mg Tab 200 Mg PO DAILY Ventolin Hfa 18 GM Inh (Albuterol Sulfate) 90 Mcg/Act Aer 2 Puff INH Q4-6H PRN Nasal Mist Inh (Sodium Chloride) 0.9 % Aer 1 [place] EACH NARE Q4H PRN Tylenol (Acetaminophen) 325 Mg Cap 325 Mg PO BID PRN Active Ordered Medications Administered Medications Medications (Trade) Dose Ordered Sig/Teja Route PRN Reason Start Time Stop Time Status Last Admin Dose Admin Calcium/Vitamin D (Oscal-D 250-125) 500 mg BID PO 06/03/17 09:00 06/03/17 09:00 Family History Patient knows of no positive family history Social History No smoking No alcohol abuse No illicit drug abuse Physical Exam Vital Signs Vital Signs Date Time Temp Pulse Resp B/P (MAP) Pulse Ox O2 Delivery O2 Flow Rate FiO2 06/03/17 06:51 97.9 56 16 122/63 (82) 91 06/03/17 02:10 98.0 66 19 121/78 (92) 99 06/03/17 02:07 06/02/17 23:52 53 14 122/66 (84) 97 Room Air 06/02/17 19:20 97 Room Air 06/02/17 19:20 97 Room Air 06/02/17 19:20 53 14 135/80 (98) 97 Room Air 132/76 (94) 06/02/17 18:05 97.9 54 16 125/71 (89) 98 Room Air Physical Exam GENERAL: NAD, A&Ox2 HEAD: Normocephalic. NECK: Supple, trachea midline. No lymphadenopathy. EYES: No scleral icterus. No injection or drainage. CARDIOVASCULAR: Regular rate and rhythm without murmurs, gallops, or rubs. RESPIRATORY: Breath sounds equal bilaterally. No accessory muscle use. GASTROINTESTINAL: Abdomen soft, non-tender, nondistended. MUSCULOSKELETAL: No cyanosis, or edema. SKIN: Warm and dry. NEURO: No focal neurological deficitis. Laboratory Laboratory Tests Test 06/02/17 19:25 06/02/17 20:15 06/02/17 21:10 06/02/17 22:25 Urine Opiates Screen NEG Urine Barbiturates Screen NEG Urine Amphetamines Screen NEG Urine Benzodiazepines Screen NEG Urine Cocaine Screen NEG Urine Cannabinoids Screen NEG Blood Urea Nitrogen 6 Creatinine 0.84 Random Glucose 75 Total Protein 8.8 Albumin 3.5 Calcium Level 9.1 Magnesium Level 1.6 Alkaline Phosphatase 54 Aspartate Amino Transf (AST/SGOT) 34 Alanine Aminotransferase (ALT/SGPT) 28 Total Bilirubin 0.4 Sodium Level 138 Potassium Level 3.9 Chloride Level 104 Carbon Dioxide Level 26.5 Anion Gap 8 Estimat Glomerular Filtration Rate 93 Total Creatine Kinase 50 Troponin I LESS THAN 0.02 Ethyl Alcohol Level LESS THAN 3 White Blood Count 3.4 Red Blood Count 4.47 Hemoglobin 13.5 Hematocrit 39.9 Mean Corpuscular Volume 89.4 Mean Corpuscular Hemoglobin 30.2 Mean Corpuscular Hemoglobin Concent 33.8 Red Cell Distribution Width 13.9 Platelet Count 105 Mean Platelet Volume 7.5 Neutrophils (%) (Auto) 41.7 Lymphocytes (%) (Auto) 47.9 Monocytes (%) (Auto) 8.2 Eosinophils (%) (Auto) 1.9 Basophils (%) (Auto) 0.3 Neutrophils # (Auto) 1.4 Lymphocytes # (Auto) 1.6 Monocytes # (Auto) 0.3 Eosinophils # (Auto) 0.1 Basophils # (Auto) 0.0 CBC Comment DIFF FINAL Differential Comment Prothrombin Time 12.6 Prothromb Time International Ratio 1.1 Activated Partial Thromboplast Time 27.9 Result Diagram: 06/02/17 2110 06/02/172014 Imaging Last Impressions Chest X-Ray 06/02/17 1836 Signed Impressions: Service Date/Time: Friday, June 02, 2017 19:02 - CONCLUSION: No acute disease. No significant change has occurred. Orlando Fuentes MD Head CT 06/02/17 0000 Signed Impressions: Service Date/Time: Friday, June 02, 2017 19:37 - CONCLUSION: Stable CT brain scan. Atrophy. No acute intracranial process. Orlando Fuentes MD Assessment and Plan Problem List: (1) Seizure disorder ICD Code: G40.909 - Seizure disorder Status: Chronic (2) Bipolar disorder ICD Code: F31.9 - Bipolar disorder Status: Acute (3) Suicidal ideations ICD Code: R45.851 - Suicidal ideations Status: Acute Assessment and Plan Assessment and plan 61-year-old male admitted secondary to depression and PTSD, reporting increased frequency of seizures Seizure disorder This is present at baseline Possibility of missed dosings, given dementia Continue Keppra Continue Depakote Evaluate Keppra and Depakote levels Increase Keppra if levels are not hypertherapeutic Hypertension Continue baseline treatment Follow blood pressures Adjust blood pressure medications if needed Paroxysmal VT Hyperlipidemia Cirrhosis COPD Dementia Chronic pancreatitis Gout Hepatitis C Hepatitis B Insomnia No decompensation of these conditions No change to baseline managements of these conditions Baseline outpatient treatments are reviewed and medical reconciliation was done in regards to these treatments Problem Qualifiers (1) Bipolar disorder: Qualified Codes: F31.77 - Bipolar disorder, in partial remission, most recent episode mixed Clem Zendejas MD Jun 03, 2017 13:18
[2017-06-03] MEDS ORDERED: SODIUM CHLORIDE 0.65% NASAL SPRAY 45 ML BTL EACH NARE PRN (14:15)
[2017-06-03 18:16] VITALS: BP 102/53; PULSE 78; RESP 18; TEMP 97.6; O2SAT 97
[2017-06-03] MEDS: traZODone HCL 100 MG TAB PO SCH (21:00)
[2017-06-03] MEDS ORDERED: DIVALPROEX SODIUM E.R. 500 MG TAB PO SCH (21:00)
[2017-06-03] MEDS ORDERED: CALCIUM CARBONATE CHOLECALCIFEROL PO SCH (21:00)
[2017-06-03] MEDS ORDERED: traZODone HCL 100 MG TAB PO SCH (21:00)
[2017-06-03] MEDS: levETIRAcetam 500 MG TAB PO SCH (21:01)
[2017-06-03] MEDS: DIVALPROEX SODIUM E.R. 500 MG TAB PO SCH (21:01)
[2017-06-04 07:03] VITALS: PULSE 54; RESP 17; TEMP 97.5; O2SAT 93
--- NOTE | 2017-06-04 07:41 | EKG ---
Date Performed: 06/02/2017 Time Performed: 22:05:42 PTAGE: 61 years EKG: SINUS BRADYCARDIA NONSPECIFIC T-WAVE FLATTENING MINOR VARIATION IN THE ST-T ABNORMALITIES W HEN COMPARED TO THE PRIOR TRACING. ABNORMAL RHYTHM ECG PREVIOUS TRACING : 11/13/2016 17.18 DOCTOR: Denzel Singh Interpretating Date/Time 06/04/2017 07:40:36
[2017-06-04] MEDS: CALCIUM/VITAMIN D 250 MG/125 U TAB PO SCH ×2 (09:56→21:43)
[2017-06-04] MEDS: levETIRAcetam 500 MG TAB PO SCH ×2 (09:56→21:43)
[2017-06-04] MEDS: SERTRALINE HCL 100 MG TAB PO SCH (09:57)
[2017-06-04] MEDS: QUEtiapine FUMARATE 25 MG TAB PO SCH ×3 (09:57→18:20)
[2017-06-04] MEDS: LACTOBACILLUS ACIDOPHILUS TAB PO SCH ×3 (09:57→18:21)
--- NOTE | 2017-06-04 11:29 | HHI.PR ---
Subjective Remarks patient is awkae and alert, coherent states history of seizure disorder- [facility] and adjust his medications he states he can tell- gets "funny feeling" baseline states gets around mainly with a wjheelchair- history of chronic hip pain- left- states he can ambualte around but needs 2 people assit and had to hold on to shukla Objective Vitals Vital Signs Date Time Temp Pulse Resp B/P (MAP) Pulse Ox O2 Delivery O2 Flow Rate FiO2 06/04/17 07:03 97.5 54 17 93 06/03/17 18:16 97.6 78 18 102/53 (69) 97 I/O 06/03/17 06/03/17 06/03/17 06/04/17 06/04/17 06/04/17 07:00 15:00 23:00 07:00 15:00 23:00 Intake Total 0 ml Balance 0 ml Intake Oral 0 ml Result Diagram: 06/02/17210906/02/172014 Imaging Last Impressions Chest X-Ray 06/02/17 1836 Signed Impressions: Service Date/Time: Friday, June 02, 2017 19:02 - CONCLUSION: No acute disease. No significant change has occurred. Orlando Fuentes MD Head CT 06/02/17 0000 Signed Impressions: Service Date/Time: Friday, June 02, 2017 19:37 - CONCLUSION: Stable CT brain scan. Atrophy. No acute intracranial process. Orlando Fuentes MD Objective Remarks awake andalert, oriented x 3, peasant and cooperative anciteric lungs - no raels regular rhythm abdomen soft, nontender extremities- no calf swelling- moves all equally gait- needs assistance, slow gait A/P Problem List: (1) Seizure disorder ICD Code: G40.909 - Seizure disorder Status: Chronic (2) Bipolar disorder ICD Code: F31.9 - Bipolar disorder Status: Acute (3) Suicidal ideations ICD Code: R45.851 - Suicidal ideations Status: Acute Assessment and Plan 61-year-old male admitted secondary to depression and PTSD, reporting increased frequency of seizures Seizure disorder This is present at baseline Possibility of missed dosings, given dementia Continue Keppra Continue Depakote levels opending Neurology consulted Hypertension Continue baseline treatment Follow blood pressures Adjust blood pressure medications if needed Paroxysmal VT Hyperlipidemia Cirrhosis COPD Dementia Chronic pancreatitis Gout Hepatitis C Hepatitis B Insomnia Thrombocytopenia- chronix No decompensation of these conditions No change to baseline managements of these conditions Baseline outpatient treatments are reviewed and medical reconciliation was done in regards to these treatments Difficulty ambulation- sounds chronic- states history of left hip surgery- gets around with a WC- - states had surgery years ago by Dr. Castellano - get PT eval and treat Problem Qualifiers (1) Bipolar disorder: Qualified Codes: F31.77 - Bipolar disorder, in partial remission, most recent episode mixed Ivett Hernandes MD Jun 04, 2017 11:29
[2017-06-04 14:26] LABS: BICARBONATE 28.2 MEQ/L (21.0-32.0); BLOOD UREA NITROGEN 13 MG/DL (7-18); CALCIUM 9.1 MG/DL (8.5-10.1); CHLORIDE 103 MEQ/L (98-107); CHOLESTEROL 188 MG/DL (120-200); CHOLESTEROL/ HDL RATIO 6.98 RATIO; GLOMERULAR FILTRATION RATE 86 ML/MIN (>89); GLUCOSE,RANDOM 78 MG/DL (74-106); HDL CHOLESTEROL 26.9 MG/DL (40.0-60.0); LDL CHOLESTEROL 129 MG/DL (0-99); SODIUM (NA) 137 MEQ/L (136-145); TRIGLYCERIDES 161 MG/DL (42-150)
--- NOTE | 2017-06-04 16:38 | HHI.PYPN ---
Subjective Chief Complaint: patient is some increased depression vague suicidal ideation also concerned Remarks Patient seen in his room with nurse Jeremie, chart reviewed, patient compliant medication. Patient no significant behavioral problems, continues to isolate though for now continue treatment Review of Systems Except as stated in HPI: all other systems reviewed are Neg Mental Status Examination Appearance: Appropriate Consciousness: Alert Orientation: Person, Place, Date/Time, Situation Motor Activity: Normal gait Speech: Unremarkable Language: Adequate Fund of Knowledge: Adequate Attention and Concentration: Other (fair) Memory: Unremarkable (they are) Mood: Sad, Irritable (mildly) Affect: Other (decreased range and intensity) Thought Process & Associations: Linear Thought Content: Appropriate Hallucination Type: Auditory (somewhat vague) Delusion Type: None Suicidal Ideation: Yes (vague) Suicidal Plan: No Suicidal Intention: No Homicidal Ideation: No Homicidal Plan: No Homicidal Intention: No Insight: Poor Judgment: Poor Results Labs Test 06/03/17 21:23 06/04/17 13:08 Valproic Acid (Depakene) Level 80 MCG/ML 87 MCG/ML Blood Urea Nitrogen 13 MG/DL Creatinine 0.90 MG/DL Random Glucose 78 MG/DL Calcium Level 9.1 MG/DL Sodium Level 137 MEQ/L Potassium Level 3.9 MEQ/L Chloride Level 103 MEQ/L Carbon Dioxide Level 28.2 MEQ/L Anion Gap 6 MEQ/L Estimat Glomerular Filtration Rate 86 ML/MIN Hemoglobin A1c 5.0 % Triglycerides Level 161 MG/DL Cholesterol Level 188 MG/DL LDL Cholesterol 129 MG/DL HDL Cholesterol 26.9 MG/DL Cholesterol/HDL Ratio 6.98 RATIO Vitals/IOs Vital Signs Date Time Temp Pulse Resp B/P (MAP) Pulse Ox O2 Delivery O2 Flow Rate FiO2 06/04/17 07:03 97.5 54 17 93 06/03/17 18:16 102/53 (69) 06/02/17 23:52 Room Air Intake and Output 06/04/17 06/04/17 06/05/17 08:00 16:00 00:00 Intake Total 0 ml Balance 0 ml Assessment & Plan Problem List: (1) Bipolar disorder ICD Codes: F31.9 - Bipolar disorder Status: Acute (2) Seizure disorder ICD Codes: G40.909 - Seizure disorder Status: Chronic Assessment & Plan Estimated LOS: days patient calm cooperative with me compliant medications. For now continue treatment Justification for Cont. Inpt. At this time patient will decompensate the placed a lower level of care Discharge Planning Placement remain somewhat problematic Request HC Surrog/Guard Advoc?: No Problem Qualifiers (1) Bipolar disorder: Qualified Codes: F31.77 - Bipolar disorder, in partial remission, most recent episode mixed Eder Pina MD Jun 04, 2017 16:38
[2017-06-04 20:26] VITALS: BP 121/70; PULSE 75; RESP 18; TEMP 97.7; O2SAT 98
--- NOTE | 2017-06-04 20:35 | MB ---
cc: LUCA TIDWELL M.D. DATE OF CONSULTATION 06/04/17 REASON FOR CONSULTATION Possible seizures. HISTORY OF PRESENT ILLNESS Mr. Peters is a 61-year old man who is admitted to the hospital due to depression and PTSD. He states he has been having frequent seizures. He states he had a grand mal seizure in childhood, but no grand mal seizures since then. He has episodes where he suddenly blanks out. He sees objects such as a "plane flying sideways during the seizure". No tonic-clonic activity. He states he does not actually lose consciousness during these events. They last for an unknown period of time. PAST MEDICAL HISTORY 1. History of seizures in the past, according to the patient. 2. Paroxysmal ventricular tachycardia 3. Hyperlipidemia 4. Cirrhosis, 5. Chronic obstructive pulmonary disease 6. Dementia, 7. Chronic pancreatitis 8. Gout 9. Hepatitis C, hepatitis B 10. Hypertension 11. Appendectomy 12. Cholecystectomy 13. Tonsillectomy. MEDICATIONS 1. lactobacillus 2. Quediapine 3. Keppra 1500 mg b.i.d., 4. Depakote ER 1000 mg at bedtime Current, 1. Zoloft 200 mg daily. 2. Depakote 1000 mg at bedtime. 3. Keppra 59 mg b.i.d. 4. Trazodone. 5. Seroquel 6. Lactinex 7. Os-Rajiv 8. Ativan p.r.n. NEUROLOGIC EXAMINATION Blood pressure is 102/53, pulse 78, respirations 18, temperature is 97.6 degrees. Higher cortical function - he is alert, oriented. Speech is fluent. Cranial nerves intact. Motor exam - there is no focal deficits. Reflexes are symmetric. IMAGING STUDIES CT brain is atrophy, otherwise normal. LABORATORY DATA White count 3400, hemoglobin 13.5, hematocrit 40%, platelet count 105,000. Sodium is 137, potassium 3.9, chloride 103, CO2 28, BUN is 13, creatinine 0.9, GFR is 86, glucose 78, hemoglobin A1c five, calcium 9.1, AST 34, ALT is 28, triglycerides 161, cholesterol 188, LDL 129. His Valproic acid level is 87. IMPRESSION The patient's spells are somewhat unusual, although I suppose focal seizures, simple partial seizures are a consideration. Pseudoseizures would also be a consideration. RECOMMENDATIONS MRI brain as well as an EEG. Continue current dose of Depakote and Keppra pending results of the above studies. MD KENTON George/ /5:14 PM /8:18 PM
[2017-06-04] MEDS: diphenhydrAMINE HCL 50 MG CAP - HS PRN PO (21:41)
[2017-06-04] MEDS: DIVALPROEX SODIUM E.R. 500 MG TAB PO SCH (21:42)
[2017-06-04] MEDS: traZODone HCL 100 MG TAB PO SCH (21:42)
[2017-06-05 06:47] VITALS: BP 109/65; PULSE 53; RESP 15; TEMP 98.3; O2SAT 94
[2017-06-05] MEDS: QUEtiapine FUMARATE 25 MG TAB PO SCH ×3 (10:19→18:31)
[2017-06-05] MEDS: LACTOBACILLUS ACIDOPHILUS TAB PO SCH ×3 (10:19→18:31)
[2017-06-05] MEDS: SERTRALINE HCL 100 MG TAB PO SCH (10:20)
[2017-06-05] MEDS: CALCIUM/VITAMIN D 250 MG/125 U TAB PO SCH ×2 (10:21→21:04)
[2017-06-05] MEDS: levETIRAcetam 500 MG TAB PO SCH ×2 (10:21→21:04)
--- NOTE | 2017-06-05 12:34 | HHI.PYPN ---
Subjective Chief Complaint: patient admitted for increased depression suicidal ideation Remarks Pt seen and discussed with staff. chart reviewed. He has been compliant with care and medications. He is depressed and spends most of day in bed. No behavioral problems on unit. Mental Status Examination Appearance: Appropriate Consciousness: Alert Orientation: Person, Place, Date/Time, Situation Motor Activity: Normal gait Speech: Unremarkable Language: Adequate Fund of Knowledge: Adequate Attention and Concentration: Other (fair) Memory: Unremarkable Mood: Sad, Irritable Affect: Flat Thought Process & Associations: Linear Thought Content: Appropriate Hallucination Type: Auditory (somewhat vague) Delusion Type: None Suicidal Ideation: Yes (vague) Suicidal Plan: No Suicidal Intention: No Homicidal Ideation: No Homicidal Plan: No Homicidal Intention: No Insight: Poor Judgment: Poor Results Labs Test 06/04/17 13:08 Blood Urea Nitrogen 13 MG/DL Creatinine 0.90 MG/DL Random Glucose 78 MG/DL Calcium Level 9.1 MG/DL Sodium Level 137 MEQ/L Potassium Level 3.9 MEQ/L Chloride Level 103 MEQ/L Carbon Dioxide Level 28.2 MEQ/L Anion Gap 6 MEQ/L Estimat Glomerular Filtration Rate 86 ML/MIN Hemoglobin A1c 5.0 % Triglycerides Level 161 MG/DL Cholesterol Level 188 MG/DL LDL Cholesterol 129 MG/DL HDL Cholesterol 26.9 MG/DL Cholesterol/HDL Ratio 6.98 RATIO Valproic Acid (Depakene) Level 87 MCG/ML Vitals/IOs Vital Signs Date Time Temp Pulse Resp B/P (MAP) Pulse Ox O2 Delivery O2 Flow Rate FiO2 06/05/17 06:47 98.3 53 15 109/65 (80) 94 06/02/17 23:52 Room Air Intake and Output 06/05/17 06/05/17 06/06/17 08:00 16:00 00:00 Intake Total 120 ml Balance 120 ml Assessment & Plan Problem List: (1) Bipolar disorder ICD Codes: F31.9 - Bipolar disorder Status: Acute (2) Seizure disorder ICD Codes: G40.909 - Seizure disorder Status: Chronic Assessment & Plan Continue current tx plan. Estimated LOS: days Justification for Cont. Inpt. impairments in self care Request HC Surrog/Guard Advoc?: No Problem Qualifiers (1) Bipolar disorder: Qualified Codes: F31.77 - Bipolar disorder, in partial remission, most recent episode mixed Barbara Patel MD Jun 05, 2017 12:34
[2017-06-05 16:00] VITALS: BP 106/67; PULSE 68; RESP 18; TEMP 97.4; O2SAT 94
[2017-06-05] MEDS: diphenhydrAMINE HCL 50 MG CAP - HS PRN PO (21:03)
[2017-06-05] MEDS: traZODone HCL 100 MG TAB PO SCH (21:04)
[2017-06-05] MEDS: DIVALPROEX SODIUM E.R. 500 MG TAB PO SCH (21:04)
[2017-06-06 06:00] VITALS: BP 170/65; PULSE 60; RESP 19; TEMP 98; O2SAT 92
--- NOTE | 2017-06-06 09:17 | RADRPT ---
EXAM DATE/TIME: 06/06/2017 08:39 [place] COMPARISON: MRI BRAIN W/O CONTRAST, November 16, 2016, 15:27. INDICATIONS : Seizures. MEDICAL HISTORY : Chronic obstructive pulmonary disease. Hepatitis B. Hepatitis C. Cirrhosis, Dementia. SURGICAL HISTORY : Total knee replacement, left. Total knee replacement, right. ENCOUNTER: Initial ACUITY: 1 day PAIN SCORE: 0/10 LOCATION: cranial TECHNIQUE: Multiplanar, multisequence MRI of the brain was performed without contrast. FINDINGS: CEREBRUM: The ventricles and cortical sulci are widened. No evidence of midline shift, mass lesion, hemorrhage or acute infarction. No extraaxial fluid collections are seen. The pituitary gland and suprasellar cistern are normal in configuration. WHITE MATTER: No significant signal abnormalities are seen in the white matter. POSTERIOR FOSSA: The cerebellum and brainstem are intact. The 4th ventricle is midline. The cerebellopontine angle is unremarkable. The cerebellar tonsils are normal in position. DIFFUSION IMAGING: No focal areas of restricted diffusion are seen. No evidence of acute infarction. EXTRACRANIAL: The visualized portions of the orbits are unremarkable. There is ethmoid and sphenoid sinus disease. CONCLUSION: 1. Atrophy. 2. No acute intracranial abnormality. 3. Sinus disease. Eder Jansen MD on June 06, 2017 at 9:13 Board Certified Radiologist. This report was verified electronically.
--- NOTE | 2017-06-06 09:40 | HHI.PR ---
Subjective Remarks patient is awkae and alert, coherent states history of seizure disorder- [facility] and adjust his medications he states he can tell- gets "funny feeling" baseline states gets around mainly with a wjheelchair- history of chronic hip pain- left- states he can ambualte around but needs 2 people assit and had to hold on to shukla 06-06 HAD MRI TODAY TO HAVE EEG LATER TODAY NO NEW COMPLAINTS AT THIS TIME DW RN AND PT HOPE to sign off tomorrow IF EEG is negative Objective Vitals Vital Signs Date Time Temp Pulse Resp B/P (MAP) Pulse Ox O2 Delivery O2 Flow Rate FiO2 06/06/17 06:00 98.0 60 19 170/65 (100) 92 06/05/17 16:00 97.4 68 18 106/67 (80) 94 I/O 06/05/17 06/05/17 06/05/17 06/06/17 06/06/17 06/06/17 07:00 15:00 23:00 07:00 15:00 23:00 Intake Total 0 ml 120 ml 600 ml 240 ml Balance 0 ml 120 ml 600 ml 240 ml Intake Oral 0 ml 120 ml 600 ml 240 ml # Voids 2 8 2 # Bowel Movements 0 Result Diagram: 06/02/17 2110 06/04/17 1308 Other Results Laboratory Tests Test 06/03/17 21:23 06/04/17 13:08 Valproic Acid (Depakene) Level 80 MCG/ML 87 MCG/ML Levetiracetam (Keppra) Level 78.4 mcg/mL Blood Urea Nitrogen 13 MG/DL Creatinine 0.90 MG/DL Random Glucose 78 MG/DL Calcium Level 9.1 MG/DL Sodium Level 137 MEQ/L Potassium Level 3.9 MEQ/L Chloride Level 103 MEQ/L Carbon Dioxide Level 28.2 MEQ/L Anion Gap 6 MEQ/L Estimat Glomerular Filtration Rate 86 ML/MIN Hemoglobin A1c 5.0 % Triglycerides Level 161 MG/DL Cholesterol Level 188 MG/DL LDL Cholesterol 129 MG/DL HDL Cholesterol 26.9 MG/DL Cholesterol/HDL Ratio 6.98 RATIO Imaging Last Impressions Brain MRI 06/06/17 0000 Signed Impressions: Service Date/Time: Tuesday, June 06, 2017 08:39 - CONCLUSION: 1. Atrophy. 2. No acute intracranial abnormality. 3. Sinus disease. Eder Jansen MD Chest X-Ray 06/02/17 1836 Signed Impressions: Service Date/Time: Friday, June 02, 2017 19:02 - CONCLUSION: No acute disease. No significant change has occurred. Orlando Fuentes MD Head CT 06/02/17 0000 Signed Impressions: Service Date/Time: Friday, June 02, 2017 19:37 - CONCLUSION: Stable CT brain scan. Atrophy. No acute intracranial process. Orlando Fuentes MD Objective Remarks GENERAL: Awake and alert but lethargic just had MRI SKIN: Warm and dry. HEAD: Atraumatic. Normocephalic. EYES: Pupils equal and round. No scleral icterus. No injection or drainage. Extraction muscles. Grossly intact ENT: No nasal bleeding or discharge. Mucous membranes pink and moist. Tongue is midline NECK: Trachea midline. No JVD. Supple CARDIOVASCULAR: Regular rate and rhythm. S1 and S2 no S3 or S4 RESPIRATORY: No accessory muscle use. Clear to auscultation. Breath sounds equal bilaterally. GASTROINTESTINAL: Abdomen soft, non-tender, nondistended. Hepatic and splenic margins not palpable. MUSCULOSKELETAL: Extremities without clubbing, cyanosis, or edema. No obvious deformities. NEUROLOGICAL: Awake and alert. No obvious cranial nerve deficits. Motor grossly within normal limits. 4 out of 5 muscle strength in the arms and legs. Normal speech. PSYCHIATRIC: INAppropriate mood and affect; insight and judgment ABnormal. Medications and IVs Current Medications Sodium Chloride (NS Flush) 2 ml UNSCH PRN IVF FLUSH AFTER USING IV ACCESS; Start 06/02/17 at 18:45 Lorazepam (Ativan) 1 mg Q6H PRN PO MODERATE TO SEVERE ANXIETY; Start 06/03/17 at 01:00 Lorazepam (Ativan Inj) 1 mg Q6H PRN IM MODERATE TO SEVERE ANXIETY; Start 06/03 at 01:00 Hydroxyzine HCl (Atarax) 50 mg Q6H PRN PO ANXIETY; Start 06/03/17 at 01:00 Diphenhydramine HCl (Benadryl) 50 mg Q6H PRN PO MILD ANXIETY, EPS; Start 06/03 at 01:00 Diphenhydramine HCl (Benadryl Inj) 50 mg Q6H PRN IM MILD ANXIETY, EPS; Start 06/03/17 at 01:00 Benztropine Mesylate (Cogentin) 1 mg Q12H PRN PO EXTRA PYRAMIDAL SYMPTOMS; Start 06/03/17 at 01:00 Benztropine Mesylate (Cogentin Inj) 1 mg Q12H PRN IM EXTRA PYRAMIDAL SYMPTOMS; Start 06/03/17 at 01:00 Diphenhydramine HCl (Benadryl) 50 mg HS PRN PO INSOMNIA Last administered on 21:03; Start 06/03/17 at 01:00 Diphenhydramine HCl (Benadryl Inj) 50 mg HS PRN IM INSOMNIA; Start 06/03/17 at 01:00 Acetaminophen (Tylenol) 650 mg Q4H PRN PO Pain 1-5 or Temp >101F; Start at 01:00 Magnesium Hydroxide (Milk Of Magnesia Liq) 30 ml DAILY PRN PO CONSTIPATION; Start 06/03/17 at 01:00 Al Hydrox/Mg Hydrox/Simethicone (Mag-Al Plus Susp Liq) 30 ml Q6H PRN PO DYSPEPSIA; Start 06/03/17 at 01:00 Albuterol Sulfate (Proair Hfa Inh) 2 puff Q4H PRN INH SHORTNESS OF BREATH; Start 06/03/17 at 01:00 Sertraline HCl (Zoloft) 200 mg DAILY PO Last administered on 06/03/17 09:00; Start 06/03/17 at 09:00; Stop 06/03/17 at 12:27; Status DC Calcium/Vitamin D (Oscal-D 250-125) 500 mg BID PO Last administered on 21:04; Start 06/03/17 at 09:00 Trazodone HCl (Desyrel) 100 mg HS PO ; Start 06/03/17 at 21:00; Stop 06/03/17 at 21:00; Status DC Divalproex Sodium (Depakote Er) 1,000 mg HS PO ; Start 06/03/17 at 21:00; Stop 06/03/17 at 21:00; Status DC Levetriacetam (Keppra) 1,500 mg Q12HR PO Last administered on 06/03/17 09:00 ; Start 06/03/17 at 09:00; Stop 06/03/17 at 12:26; Status DC Albuterol Sulfate (Proair Hfa Inh) 2 puff Q4H PRN INH SHORTNESS OF BREATH; Start 06/03/17 at 11:15; Status UNV Divalproex Sodium (Depakote Er) 1,000 mg HS PO Last administered on 06/05/17 21:04; Start 06/03/17 at 21:00 Lactobacillus Acidophilus (Lactinex) 1 tab TIDAC PO Last administered on 18:31; Start 06/03/17 at 12:30 Levetriacetam (Keppra) 1,500 mg Q12HR PO Last administered on 06/05/17 21:04 ; Start 06/03/17 at 21:00 Non-Formulary Medication 1 tab BID PO ; Start 06/03/17 at 21:00; Status UNV Sodium Chloride ([place] Isacc [place]) 1 spray Q4H PRN EACH NARE NASAL CONGESTION; Start 06/03/17 at 14:15 Quetiapine Fumarate (SEROquel) 25 mg TID PO Last administered on 06/05/17 18: 31; Start 06/03/17 at 13:00 Sertraline HCl (Zoloft) 200 mg DAILY PO Last administered on 06/05/17 10:20; Start 06/04/17 at 09:00 Trazodone HCl (Desyrel) 250 mg HS PO Last administered on 06/05/17 21:04; Start 06/03/17 at 21:00 Miscellaneous (Pill Splitter) 1 ea UNSCH PRN OTHER SEE LABEL COMMENTS; Start 06/03/17 at 12:30 A/P Problem List: (1) Seizure disorder ICD Code: G40.909 - Seizure disorder Status: Chronic (2) Bipolar disorder ICD Code: F31.9 - Bipolar disorder Status: Acute (3) Suicidal ideations ICD Code: R45.851 - Suicidal ideations Status: Acute Assessment and Plan 61-year-old male admitted secondary to depression and PTSD, reporting increased frequency of seizures Seizure disorder HE is present at baseline Possibility of missed dosings, given dementia Continue Keppra Continue Depakote levels pending Neurology consulted Hypertension Continue baseline treatment Follow blood pressures Adjust blood pressure medications if needed Paroxysmal VT Hyperlipidemia Cirrhosis COPD Dementia Chronic pancreatitis Gout Hepatitis C Hepatitis B Insomnia Thrombocytopenia- chronix No decompensation of these conditions No change to baseline managements of these conditions Baseline outpatient treatments are reviewed and medical reconciliation was done in regards to these treatments Difficulty ambulation- sounds chronic- states history of left hip surgery- gets around with a WC- - states had surgery years ago by Dr. Castellano - get PT eval and treat Had MRI already stable EEG is still pending Discharge Planning Hopefully sign off tomorrow Problem Qualifiers (1) Bipolar disorder: Qualified Codes: F31.77 - Bipolar disorder, in partial remission, most recent episode mixed Silvestre Brady DO Jun 06, 2017 09:40
[2017-06-06] MEDS: CALCIUM/VITAMIN D 250 MG/125 U TAB PO SCH ×2 (10:31→21:31)
[2017-06-06] MEDS: LACTOBACILLUS ACIDOPHILUS TAB PO SCH ×3 (10:31→17:33)
[2017-06-06] MEDS: QUEtiapine FUMARATE 25 MG TAB PO SCH ×3 (10:31→17:34)
[2017-06-06] MEDS: levETIRAcetam 500 MG TAB PO SCH ×2 (10:31→21:31)
[2017-06-06] MEDS: SERTRALINE HCL 100 MG TAB PO SCH (10:32)
--- NOTE | 2017-06-06 12:49 | HHI.PYPN ---
Subjective Chief Complaint: patient admitted for increased depression suicidal ideation Remarks Pt seen and discussed with staff. He remains dysphoric. Self care is poor. He refused to eat breakfast and has refused all hygiene care. He did comply with MRI with encouragement. SI persists. No HI. Mental Status Examination Appearance: Appropriate Consciousness: Alert Orientation: Person, Place, Date/Time, Situation Motor Activity: Normal gait Speech: Unremarkable Language: Adequate Fund of Knowledge: Adequate Attention and Concentration: Other (fair) Memory: Unremarkable Mood: Sad, Irritable Affect: Flat Thought Process & Associations: Linear Thought Content: Appropriate Hallucination Type: Auditory (somewhat vague) Delusion Type: None Suicidal Ideation: Yes (vague) Suicidal Plan: No Suicidal Intention: No Homicidal Ideation: No Homicidal Plan: No Homicidal Intention: No Insight: Poor Judgment: Poor Results Vitals/IOs Vital Signs Date Time Temp Pulse Resp B/P (MAP) Pulse Ox O2 Delivery O2 Flow Rate FiO2 06/06/17 06:00 98.0 60 19 170/65 (100) 92 06/02/17 23:52 Room Air Intake and Output 06/06/17 06/06/17 06/07/17 08:00 16:00 00:00 Intake Total 240 ml 240 ml Balance 240 ml 240 ml Assessment & Plan Problem List: (1) Bipolar disorder ICD Codes: F31.9 - Bipolar disorder Status: Acute (2) Seizure disorder ICD Codes: G40.909 - Seizure disorder Status: Chronic Assessment & Plan Continue current tx plan. Estimated LOS: days Justification for Cont. Inpt. impairments in selfcare and safety Request HC Surrog/Guard Advoc?: No Problem Qualifiers (1) Bipolar disorder: Qualified Codes: F31.77 - Bipolar disorder, in partial remission, most recent episode mixed Barbara Patel MD Jun 06, 2017 12:49
[2017-06-06 17:40] VITALS: BP 106/66; PULSE 72; RESP 16; TEMP 97.7
[2017-06-06] MEDS: DIVALPROEX SODIUM E.R. 500 MG TAB PO SCH (21:31)
[2017-06-06] MEDS: traZODone HCL 100 MG TAB PO SCH (21:31)
[2017-06-07 05:58] VITALS: BP 89/50; PULSE 58; RESP 16; TEMP 98.4; O2SAT 95
[2017-06-07] MEDS: levETIRAcetam 500 MG TAB PO SCH ×2 (09:07→21:13)
[2017-06-07] MEDS: LACTOBACILLUS ACIDOPHILUS TAB PO SCH ×3 (09:08→16:37)
[2017-06-07] MEDS: QUEtiapine FUMARATE 25 MG TAB PO SCH ×3 (09:08→17:58)
[2017-06-07] MEDS: SERTRALINE HCL 100 MG TAB PO SCH (09:08)
[2017-06-07] MEDS: CALCIUM/VITAMIN D 250 MG/125 U TAB PO SCH ×2 (09:08→21:14)
--- NOTE | 2017-06-07 12:04 | HHI.PYPN ---
Subjective Chief Complaint: patient admitted for increased depression suicidal ideation Remarks Patient seen in his room with nurse Jeremie, patient continues depressed has 7 somewhat irritable with me today. Neurology consultation reviewed and agreed with, MRI of the brain reviewed. Patient Depakote level drawn on the came back at 87 we'll continue Depakote and Keppra no change at this time Review of Systems Except as stated in HPI: all other systems reviewed are Neg Mental Status Examination Appearance: Appropriate Consciousness: Alert Orientation: Person, Place, Date/Time, Situation Motor Activity: Normal gait Speech: Unremarkable Language: Adequate Fund of Knowledge: Adequate Attention and Concentration: Other (fair) Memory: Unremarkable Mood: Sad, Irritable Affect: Flat Thought Process & Associations: Linear Thought Content: Appropriate Hallucination Type: Auditory (somewhat vague) Delusion Type: None Suicidal Ideation: Yes (vague) Suicidal Plan: No Suicidal Intention: No Homicidal Ideation: No Homicidal Plan: No Homicidal Intention: No Insight: Poor Judgment: Poor Results Vitals/IOs Vital Signs Date Time Temp Pulse Resp B/P (MAP) Pulse Ox O2 Delivery O2 Flow Rate FiO2 06/07/17 05:58 98.4 58 16 89/50 (63) 95 Intake and Output 06/07/17 06/07/17 06/08/17 08:00 16:00 00:00 Intake Total 510 ml Balance 510 ml Assessment & Plan Problem List: (1) Bipolar disorder ICD Codes: F31.9 - Bipolar disorder Status: Acute (2) Seizure disorder ICD Codes: G40.909 - Seizure disorder Status: Chronic Assessment & Plan Estimated LOS: days patient continues depressed and isolating, neurology consultation reviewed and agreed with MRI reviewed from now continue medication no change Depakote level from 06/04 is 87 Justification for Cont. Inpt. At this time patient will decompensate placed in a lower level of care Discharge Planning Placement this time is still quite problematic Request HC Surrog/Guard Advoc?: No Problem Qualifiers (1) Bipolar disorder: Qualified Codes: F31.77 - Bipolar disorder, in partial remission, most recent episode mixed Eder Pina MD Jun 07, 2017 12:04
--- NOTE | 2017-06-07 14:16 | PD.TTN ---
Patient Problems 1. Discharge planning 2. Medication compliance 3. Knowledge deficit 4. Lack of coping skills Progress Toward Goals Provider Present: Dr. Ade Pina Provider Input: Dr. Pina's treatment team met to discuss patient treatment plan, discharge, and medication. Doctor reports patient is hopeless, depressed, Nurse(s) Input: Patient's nurse Tanya reports patient is flat, sad, poorly motivated, depressed and hopeless. Psychiatric Counselors Present: [facility] Psych Therapist Input: Patient seen in his room. Patient is seclusive, depressed, hopeless, easily agitated, affect blunted. Patient denies suicidal and homicidal ideation. Patient is alert to person, place and situation. Patient made poor eye contact. Patient is eating and sleeping ok. Patient does not present internally stimulated or with any delusional content. Patient will remain on unit until discharged. Group Spec/RT/OT/DYER Present: MANISHA Mobley Group Spec/RT/OT/DYER Input: Naye DYER reports patient does not attend groups [facility] Jun 07, 2017 14:16
--- NOTE | 2017-06-07 14:16 | PD.TTN ---
Patient Problems 1. Discharge planning 2. Medication compliance 3. Knowledge deficit 4. Lack of coping skills Progress Toward Goals Provider Present: Dr. Ade Pina Provider Input: Dr. Pina's treatment team met to discuss patient treatment plan, discharge, and medication. Doctor reports patient is hopeless, depressed, Nurse(s) Input: Patient's nurse Tanya reports patient is flat, sad, poorly motivated, depressed and hopeless. Psychiatric Counselors Present: Camelia Norris [facility] Psych Therapist Input: Patient seen in his room. Patient is seclusive, depressed, hopeless, easily agitated, affect blunted. Patient denies suicidal and homicidal ideation. Patient is alert to person, place and situation. Patient made poor eye contact. Patient is eating and sleeping ok. Patient does not present internally stimulated or with any delusional content. Patient will remain on unit until discharged. Group Spec/RT/OT/DYER Present: MANISHA Mobley Group Spec/RT/OT/DYER Input: Naye DYER reports patient does not attend groups Camelia Norris [facility] Jun 07, 2017 14:16
--- NOTE | 2017-06-07 14:16 | PD.TTN ---
Patient Problems 1. Discharge planning 2. Medication compliance 3. Knowledge deficit 4. Lack of coping skills Progress Toward Goals Provider Present: Dr. Ade Pina Provider Input: Dr. Pina's treatment team met to discuss patient treatment plan, discharge, and medication. Doctor reports patient is hopeless, depressed, Nurse(s) Input: Patient's nurse Tanya reports patient is flat, sad, poorly motivated, depressed and hopeless. Psychiatric Counselors Present: Camelia Norris [facility] Psych Therapist Input: Patient seen in his room. Patient is seclusive, depressed, hopeless, easily agitated, affect blunted. Patient denies suicidal and homicidal ideation. Patient is alert to person, place and situation. Patient made poor eye contact. Patient is eating and sleeping ok. Patient does not present internally stimulated or with any delusional content. Patient will remain on unit until discharged. Group Spec/RT/OT/DYER Present: MANISHA Mobley Group Spec/RT/OT/DYER Input: Naye DYER reports patient does not attend groups Camelia Norris [facility] Jun 07, 2017 14:16
--- NOTE | 2017-06-07 14:50 | HHI.PR ---
Subjective Remarks Written by Lisa Stiles, acting as scribe for Dr. Brady on 06/07/17 at 14: 39. Follow up on patient with seizure disorder, HTN, Hep C, COPD. Patient seen and examined. Patient states "I'm sick" but will not give specifics outside of belly pain. He is unsure of last BM. EEG completed but results pending. Discussed with nursing staff, no acute issues noted. WILL GIVE LACTULOSE Objective Vitals Vital Signs Date Time Temp Pulse Resp B/P (MAP) Pulse Ox O2 Delivery O2 Flow Rate FiO2 06/07/17 05:58 98.4 58 16 89/50 (63) 95 06/06/17 17:40 97.7 72 16 106/66 (79) I/O 06/06/17 06/06/17 06/06/17 06/07/17 06/07/17 06/07/17 06:59 14:59 22:59 06:59 14:59 22:59 Intake Total 240 ml 240 ml 360 ml 270 ml 480 ml Balance 240 ml 240 ml 360 ml 270 ml 480 ml Intake Oral 240 ml 240 ml 360 ml 270 ml 480 ml # Voids 2 1 1 Result Diagram: 06/04/17 1308 Imaging Last Impressions Brain MRI 06/06/17 0000 Signed Impressions: Service Date/Time: Tuesday, June 06, 2017 08:39 - CONCLUSION: 1. Atrophy. 2. No acute intracranial abnormality. 3. Sinus disease. Eder Jansen MD Chest X-Ray 06/02/17 1836 Signed Impressions: Service Date/Time: Friday, June 02, 2017 19:02 - CONCLUSION: No acute disease. No significant change has occurred. Orlando Fuentes MD Head CT 06/02/17 0000 Signed Impressions: Service Date/Time: Friday, June 02, 2017 19:37 - CONCLUSION: Stable CT brain scan. Atrophy. No acute intracranial process. Orlando Fuentes MD Objective Remarks GENERAL: INAD. Lying in bed. Awake and alert. SKIN: Warm and dry. HEAD: Atraumatic. Normocephalic. EYES: Pupils equal and round. No scleral icterus. No injection or drainage. Extraction muscles. Grossly intact ENT: No nasal bleeding or discharge. Mucous membranes pink and moist. Tongue is midline NECK: Trachea midline. No JVD. Supple CARDIOVASCULAR: Regular rate and rhythm. S1 and S2 no S3 or S4 RESPIRATORY: No accessory muscle use. Clear to auscultation. Breath sounds equal bilaterally. GASTROINTESTINAL: Abdomen soft, non-tender. Mildly distended. Hepatic and splenic margins not palpable. MUSCULOSKELETAL: Extremities without clubbing, cyanosis, or edema. No obvious deformities. NEUROLOGICAL: Awake and alert. Normal speech. PSYCHIATRIC: INAppropriate mood and affect; insight and judgment ABnormal. Procedures NONE Medications and IVs Current Medications Medications (Trade) Dose Ordered Sig/Teja Route Start Time Stop Time Status Last Admin (NS Flush) 2 ml UNSCH PRN IVF 06/02/17 18:45 (Ativan) 1 mg Q6H PRN PO 06/03/17 01:00 (Ativan Inj) 1 mg Q6H PRN IM 06/03/17 01:00 (Atarax) 50 mg Q6H PRN PO 06/03/17 01:00 (Benadryl) 50 mg Q6H PRN PO 06/03/17 01:00 (Benadryl Inj) 50 mg Q6H PRN IM 06/03/17 01:00 (Cogentin) 1 mg Q12H PRN PO 06/03/17 01:00 (Cogentin Inj) 1 mg Q12H PRN IM 06/03/17 01:00 (Benadryl) 50 mg HS PRN PO 06/03/17 01:00 06/05/17 21:03 (Benadryl Inj) 50 mg HS PRN IM 06/03/17 01:00 (Tylenol) 650 mg Q4H PRN PO 06/03/17 01:00 (Milk Of Magnesia Liq) 30 ml DAILY PRN PO 06/03/17 01:00 (Mag-Al Plus Susp Liq) 30 ml Q6H PRN PO 06/03/17 01:00 (Proair Hfa Inh) 2 puff Q4H PRN INH 06/03/17 01:00 (Oscal-D 250-125) 500 mg BID PO 06/03/17 09:00 06/07/17 09:08 (Depakote Er) 1,000 mg HS PO 06/03/17 21:00 06/06/17 21:31 (Lactinex) 1 tab TIDAC PO 06/03/17 12:30 06/07/17 12:28 (Keppra) 1,500 mg Q12HR PO 06/03/17 21:00 06/07/17 09:07 ([place] Isacc [place]) 1 spray Q4H PRN EACH NARE 06/03/17 14:15 (SEROquel) 25 mg TID PO 06/03/17 13:00 06/07/17 12:28 (Zoloft) 200 mg DAILY PO 06/04/17 09:00 06/07/17 09:08 (Desyrel) 250 mg HS PO 06/03/17 21:00 06/06/17 21:31 (Pill Splitter) 1 ea UNSCH PRN OTHER 06/03/17 12:30 Urinary Catheter: No A/P Problem List: (1) Seizure disorder ICD Code: G40.909 - Seizure disorder Status: Chronic (2) Bipolar disorder ICD Code: F31.9 - Bipolar disorder Status: Acute (3) Suicidal ideations ICD Code: R45.851 - Suicidal ideations Status: Acute Assessment and Plan 61-year-old male admitted secondary to depression and PTSD, reporting increased frequency of seizures Seizure disorder He is at baseline Possibility of missed dosages, given dementia Continue Keppra Continue Depakote Neurology consulted. MRI ordered, no acute intracranial abnormality. EEG completed, results pending. Keppra 78.4, Depakote 87 - defer to Neurology. Hypertension hypotensive at present. Not on any medications. Follow blood pressures discussed with nursing staff. Encourage po intake. Paroxysmal VT Hyperlipidemia Cirrhosis COPD Dementia Chronic pancreatitis Gout Hepatitis C Hepatitis B Insomnia Thrombocytopenia- chronic No decompensation of these conditions No change to baseline managements of these conditions Baseline outpatient treatments are reviewed and medical reconciliation was done in regards to these treatments Difficulty ambulation- sounds chronic- states history of left hip surgery- gets around with a WC- states had surgery years ago by Dr. Castellano continue with PT Suspected constipation Give dose of lactulose monitor for BM stool softener daily Discussed with patient and nursing staff The exam, history, and the medical decision-making described in the above note were completed with the assistance of the mid-level provider. I reviewed and agree with the findings presented. I attest that I had a [id number] encounter with the patient on the same day, and personally performed and documented my assessment and findings in the medical record. Discharge Planning WHEN CLEARED BY PSYCHIATRY Problem Qualifiers (1) Bipolar disorder: Qualified Codes: F31.77 - Bipolar disorder, in partial remission, most recent episode mixed Lisa Stiles Jun 07, 2017 14:50 Silvestre Brady DO Jun 07, 2017 15:17
[2017-06-07] MEDS ORDERED: LACTULOSE SYRUP 20 GM/30 ML CUP PO ONE (15:00)
[2017-06-07 15:40] VITALS: BP 118/74; PULSE 73
[2017-06-07] MEDS: DOCUSATE SODIUM 50 MG/SENNA 8.6 MG TAB PO SCH ×2 (15:43→21:13)
--- NOTE | 2017-06-07 18:14 | MG ---
cc: AFIA GOULD M.D. Lab No: Date: 06/07/2017 Age: Sex: M Race: DATE OF 1955, 61 years old EEG NUMBER [id number] Hussein ROOM [address] Awake without hyperventilation. Photic only. Hard of hearing. No hearing aides. The patient cannot tell the machine maintenance technician why he is here. Last EEG in November of [address] atrophy. Frequent seizures, blanks out. Sees planes flying sideways during the seizure. No tonic clonic activity. History of alcohol related seizures and dementia. Head trauma in the past. MEDICATIONS Currently on Zoloft. DESCRIPTION OF RECORD Overall attenuated background predominantly of what appears to be a delta frequency. A lot of eye movement muscle artifact. No gross epileptic activity is seen. Photic stimulation with more muscle eye artifact. IMPRESSION Abnormal EEG due to moderate slowing consistent with encephalopathic process versus medicine effect and no epileptiform features. Clinical correlation. MD TOM Hale/NICHOLAS /4:11 PM /6:06 PM
--- NOTE | 2017-06-07 18:14 | MG ---
cc: AFIA GOULD M.D. Lab No: Date: 06/07/2017 Age: Sex: M Race: DATE OF 1955, 61 years old EEG NUMBER [id number] Hussein ROOM [address] Awake without hyperventilation. Photic only. Hard of hearing. No hearing aides. 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 Last EEG in November of [address] atrophy. Frequent seizures, blanks out. Sees planes flying sideways during the seizure. No tonic clonic activity. History of alcohol related seizures and dementia. Head trauma in the past. MEDICATIONS Currently on Zoloft. DESCRIPTION OF RECORD Overall attenuated background predominantly of what appears to be a delta frequency. A lot of eye movement muscle artifact. No gross epileptic activity is seen. Photic stimulation with more muscle eye artifact. IMPRESSION Abnormal EEG due to moderate slowing consistent with encephalopathic process versus medicine effect and no epileptiform features. Clinical correlation. MD TOM Hale/NICHOLAS /4:11 PM /6:06 PM
--- NOTE | 2017-06-07 18:14 | MG ---
cc: AFIA GOULD M.D. Lab No: Date: 06/07/2017 Age: Sex: M Race: DATE OF 1955, 61 years old EEG NUMBER [id number] Hussein ROOM [address] Awake without hyperventilation. Photic only. Hard of hearing. No hearing aides. The patient cannot tell the accredited pharmacy technician why he is here. Last EEG in November of [address] atrophy. Frequent seizures, blanks out. Sees planes flying sideways during the seizure. No tonic clonic activity. History of alcohol related seizures and dementia. Head trauma in the past. MEDICATIONS Currently on Zoloft. DESCRIPTION OF RECORD Overall attenuated background predominantly of what appears to be a delta frequency. A lot of eye movement muscle artifact. No gross epileptic activity is seen. Photic stimulation with more muscle eye artifact. IMPRESSION Abnormal EEG due to moderate slowing consistent with encephalopathic process versus medicine effect and no epileptiform features. Clinical correlation. MD TOM Hale/NICHOLAS /4:11 PM /6:06 PM
[2017-06-07 18:39] VITALS: BP 121/76; PULSE 70; RESP 16; TEMP 98.2; O2SAT 94
[2017-06-07] MEDS: DIVALPROEX SODIUM E.R. 500 MG TAB PO SCH (21:14)
[2017-06-07] MEDS: traZODone HCL 100 MG TAB PO SCH (21:15)
[2017-06-08 06:46] VITALS: BP 105/58; PULSE 62; RESP 18; TEMP 97.5; O2SAT 95
[2017-06-08] MEDS: levETIRAcetam 500 MG TAB PO SCH ×2 (10:05→20:55)
[2017-06-08] MEDS: CALCIUM/VITAMIN D 250 MG/125 U TAB PO SCH ×2 (10:07→20:54)
[2017-06-08] MEDS: QUEtiapine FUMARATE 25 MG TAB PO SCH ×3 (10:08→18:00)
[2017-06-08] MEDS: DOCUSATE SODIUM 50 MG/SENNA 8.6 MG TAB PO SCH ×2 (10:08→20:55)
[2017-06-08] MEDS: LACTOBACILLUS ACIDOPHILUS TAB PO SCH ×3 (10:08→17:00)
[2017-06-08] MEDS: SERTRALINE HCL 100 MG TAB PO SCH (10:09)
--- NOTE | 2017-06-08 12:18 | PD.TTN ---
Patient Problems 1. Discharge planning 2. Medication compliance 3. Knowledge deficit 4. Lack of coping skills Progress Toward Goals Provider Present: Dr. Ade Pina Provider Input: Dr. Pina's treatment team met to discuss patient treatment plan, discharge, and medication. Doctor reports patient is hopeless, depressed, 06/08/17 Patient is meeting criteria. Patient presents depressed, sad, lack of motivation. Patient will remain here until discharged. Nurse(s) Input: Patient's nurse Tanya reports patient is flat, sad, poorly motivated, depressed and hopeless. 06/08/17 Patient's nurse Tanya reports patient depressed, seclusive, needs prompting to do ADL'S. Patient went for an EEG for consult for neurology Psychiatric Counselors Present: ALAN TeresaDillan Psych Therapist Input: Patient seen in his room. Patient is seclusive, depressed, hopeless, easily agitated, affect blunted. Patient denies suicidal and homicidal ideation. Patient is alert to person, place and situation. Patient made poor eye contact. Patient is eating and sleeping ok. Patient does not present internally 06/08/17 Patient seen in dayroom eating his lunch. Patient made good eye contact. Patient has difficulty hearing which is adding to patient's agitation. Patient denies wanting to harm others but feels suicidal due to not feeling well and stating he has physical pain. Patient needs to be prompted to get up, patient is seclusive and wants to sleep all day and night. Patient is alert to person, and place. stimulated or with any delusional content. Patient will remain on unit until discharged. Group Spec/RT/OT/DYER Present: MANISHA Mobley Group Spec/RT/OT/DYER Input: Naye DYER reports patient does not attend groups 06/08/17 Patient does not participate in groups. Camelia Norris Jun 08, 2017 12:18
--- NOTE | 2017-06-08 14:32 | HHI.PR ---
Subjective Remarks 06-07 Follow up on patient with seizure disorder, HTN, Hep C, COPD. Patient seen and examined. Patient states "I'm sick" but will not give specifics outside of belly pain. He is unsure of last BM. EEG completed but results pending. Discussed with nursing staff, no acute issues noted. WILL GIVE LACTULOSE 06-08 FEEL BETTER TODAY HAD GOOD BOWEL MOVEMENTS DOES NOT FEEL FULL TODAY MORE ALERT TODAY DW PATIENT AND RN Objective Vitals Vital Signs Date Time Temp Pulse Resp B/P (MAP) Pulse Ox O2 Delivery O2 Flow Rate FiO2 06/08/17 06:46 97.5 62 18 105/58 (74) 95 06/07/17 18:39 98.2 70 16 121/76 (91) 94 06/07/17 15:40 73 118/74 (89) I/O 06/07/17 06/07/17 06/07/17 06/08/17 06/08/17 06/08/17 07:00 15:00 23:00 07:00 15:00 23:00 Intake Total 270 ml 480 ml 960 ml Balance 270 ml 480 ml 960 ml Intake Oral 270 ml 480 ml 960 ml # Voids 1 6 1 # Bowel Movements 1 Result Diagram: 06/04/17 1308 Imaging Last Impressions Brain MRI 06/06/17 0000 Signed Impressions: Service Date/Time: Tuesday, June 06, 2017 08:39 - CONCLUSION: 1. Atrophy. 2. No acute intracranial abnormality. 3. Sinus disease. Eder Jansen MD Chest X-Ray 06/02/17 1836 Signed Impressions: Service Date/Time: Friday, June 02, 2017 19:02 - CONCLUSION: No acute disease. No significant change has occurred. Orlando Fuentes MD Head CT 06/02/17 0000 Signed Impressions: Service Date/Time: Friday, June 02, 2017 19:37 - CONCLUSION: Stable CT brain scan. Atrophy. No acute intracranial process. Orlando Fuentes MD Objective Remarks GENERAL: Awake and alert but lethargic just had MRI SKIN: Warm and dry. HEAD: Atraumatic. Normocephalic. EYES: Pupils equal and round. No scleral icterus. No injection or drainage. Extraction muscles. Grossly intact ENT: No nasal bleeding or discharge. Mucous membranes pink and moist. Tongue is midline NECK: Trachea midline. No JVD. Supple CARDIOVASCULAR: Regular rate and rhythm. S1 and S2 no S3 or S4 RESPIRATORY: No accessory muscle use. Clear to auscultation. Breath sounds equal bilaterally. GASTROINTESTINAL: Abdomen soft, non-tender, nondistended. Hepatic and splenic margins not palpable. MUSCULOSKELETAL: Extremities without clubbing, cyanosis, or edema. No obvious deformities. NEUROLOGICAL: Awake and alert. No obvious cranial nerve deficits. Motor grossly within normal limits. 4 out of 5 muscle strength in the arms and legs. Normal speech. PSYCHIATRIC: INAppropriate mood and affect; insight and judgment ABnormal. Procedures EEG Abnormal EEG due to moderate slowing consistent with encephalopathic process versus medicine effect and no epileptiform features. Clinical correlation. Medications and IVs Current Medications Sodium Chloride (NS Flush) 2 ml UNSCH PRN IVF FLUSH AFTER USING IV ACCESS; Start 06/02/17 at 18:45 Lorazepam (Ativan) 1 mg Q6H PRN PO MODERATE TO SEVERE ANXIETY; Start 06/03/17 at 01:00 Lorazepam (Ativan Inj) 1 mg Q6H PRN IM MODERATE TO SEVERE ANXIETY; Start 06/03 at 01:00 Hydroxyzine HCl (Atarax) 50 mg Q6H PRN PO ANXIETY; Start 06/03/17 at 01:00 Diphenhydramine HCl (Benadryl) 50 mg Q6H PRN PO MILD ANXIETY, EPS; Start 06/03 at 01:00 Diphenhydramine HCl (Benadryl Inj) 50 mg Q6H PRN IM MILD ANXIETY, EPS; Start 06/03/17 at 01:00 Benztropine Mesylate (Cogentin) 1 mg Q12H PRN PO EXTRA PYRAMIDAL SYMPTOMS; Start 06/03/17 at 01:00 Benztropine Mesylate (Cogentin Inj) 1 mg Q12H PRN IM EXTRA PYRAMIDAL SYMPTOMS; Start 06/03/17 at 01:00 Diphenhydramine HCl (Benadryl) 50 mg HS PRN PO INSOMNIA Last administered on t 21:03; Start 06/03/17 at 01:00 Diphenhydramine HCl (Benadryl Inj) 50 mg HS PRN IM INSOMNIA; Start 06/03/17 at 01:00 Acetaminophen (Tylenol) 650 mg Q4H PRN PO Pain 1-5 or Temp >101F; Start at 01:00 Magnesium Hydroxide (Milk Of Magnesia Liq) 30 ml DAILY PRN PO CONSTIPATION; Start 06/03/17 at 01:00 Al Hydrox/Mg Hydrox/Simethicone (Mag-Al Plus Susp Liq) 30 ml Q6H PRN PO DYSPEPSIA; Start 06/03/17 at 01:00 Albuterol Sulfate (Proair Hfa Inh) 2 puff Q4H PRN INH SHORTNESS OF BREATH; Start 06/03/17 at 01:00 Sertraline HCl (Zoloft) 200 mg DAILY PO Last administered on 06/03/17 09:00; Start 06/03/17 at 09:00; Stop 06/03/17 at 12:27; Status DC Calcium/Vitamin D (Oscal-D 250-125) 500 mg BID PO Last administered on 10:07; Start 06/03/17 at 09:00 Trazodone HCl (Desyrel) 100 mg HS PO ; Start 06/03/17 at 21:00; Stop 06/03/17 at 21:00; Status DC Divalproex Sodium (Depakote Er) 1,000 mg HS PO ; Start 06/03/17 at 21:00; Stop 06/03/17 at 21:00; Status DC Levetriacetam (Keppra) 1,500 mg Q12HR PO Last administered on 06/03/17 09:00 ; Start 06/03/17 at 09:00; Stop 06/03/17 at 12:26; Status DC Albuterol Sulfate (Proair Hfa Inh) 2 puff Q4H PRN INH SHORTNESS OF BREATH; Start 06/03/17 at 11:15; Status UNV Divalproex Sodium (Depakote Er) 1,000 mg HS PO Last administered on 06/07/17 21:14; Start 06/03/17 at 21:00 Lactobacillus Acidophilus (Lactinex) 1 tab TIDAC PO Last administered on 11:53; Start 06/03/17 at 12:30 Levetriacetam (Keppra) 1,500 mg Q12HR PO Last administered on 06/08/17 10:05 ; Start 06/03/17 at 21:00 Non-Formulary Medication 1 tab BID PO ; Start 06/03/17 at 21:00; Status UNV Sodium Chloride ([place] Isacc [place]) 1 spray Q4H PRN EACH NARE NASAL CONGESTION; Start 06/03/17 at 14:15 Quetiapine Fumarate (SEROquel) 25 mg TID PO Last administered on 06/08/17 13: 00; Start 06/03/17 at 13:00 Sertraline HCl (Zoloft) 200 mg DAILY PO Last administered on 06/08/17 10:09; Start 06/04/17 at 09:00 Trazodone HCl (Desyrel) 250 mg HS PO Last administered on 06/07/17 21:15; Start 06/03/17 at 21:00 Miscellaneous (Pill Splitter) 1 ea UNSCH PRN OTHER SEE LABEL COMMENTS; Start 06/03/17 at 12:30 Senna/Docusate Sodium (Leanne-Colace) 1 tab BID PO Last administered on 10:08; Start 06/07/17 at 15:00 Lactulose (Lactulose Liq) 30 ml ONCE ONCE PO Last administered on 06/07/17 15:43; Start 06/07/17 at 15:00; Stop 06/07/17 at 15:01; Status DC Urinary Catheter: No A/P Problem List: (1) Seizure disorder ICD Code: G40.909 - Seizure disorder Status: Chronic (2) Bipolar disorder ICD Code: F31.9 - Bipolar disorder Status: Acute (3) Suicidal ideations ICD Code: R45.851 - Suicidal ideations Status: Acute Assessment and Plan 61-year-old male admitted secondary to depression and PTSD, reporting increased frequency of seizures Seizure disorder He is at baseline Possibility of missed dosages, given dementia Continue Keppra Continue Depakote Neurology consulted. MRI ordered, no acute intracranial abnormality. EEG completed, results pending. Keppra 78.4, Depakote 87 - defer to Neurology. Hypertension hypotensive at present. Not on any medications. Follow blood pressures discussed with nursing staff. Encourage po intake. Paroxysmal VT Hyperlipidemia Cirrhosis COPD Dementia Chronic pancreatitis Gout Hepatitis C Hepatitis B Insomnia Thrombocytopenia- chronic No decompensation of these conditions No change to baseline managements of these conditions Baseline outpatient treatments are reviewed and medical reconciliation was done in regards to these treatments Difficulty ambulation- sounds chronic- states history of left hip surgery- gets around with a WC- states had surgery years ago by Dr. Castellano continue with PT Suspected constipation Give dose of lactulose monitor for BM stool softener daily HAD BM FEELING BETTER- DOES NOT FEEL FULL Discussed with patient and nursing staff Discharge Planning WHEN CLEARED BY PSYCHIATRY Problem Qualifiers (1) Bipolar disorder: Qualified Codes: F31.77 - Bipolar disorder, in partial remission, most recent episode mixed Silvestre Brady DO Jun 08, 2017 14:31
--- NOTE | 2017-06-08 15:29 | HHI.PYPN ---
Subjective Chief Complaint: patient admitted for increased depression suicidal ideation Remarks Patient seen in the day room with medical student traci, patient alert though somewhat confused perhaps related to it was hearing difficulties. He now does denies suicidality. Homicidality voices or visions. Patient compliant medication Review of Systems Except as stated in HPI: all other systems reviewed are Neg Mental Status Examination Appearance: Appropriate Consciousness: Alert Orientation: Person, Place, Date/Time, Situation Motor Activity: Normal gait Speech: Unremarkable Language: Adequate Fund of Knowledge: Adequate Attention and Concentration: Other (fair) Memory: Unremarkable Mood: Sad, Irritable Affect: Flat Thought Process & Associations: Linear Thought Content: Appropriate Hallucination Type: Auditory (somewhat vague) Delusion Type: None Suicidal Ideation: Yes (vague) Suicidal Plan: No Suicidal Intention: No Homicidal Ideation: No Homicidal Plan: No Homicidal Intention: No Insight: Poor Judgment: Poor Results Vitals/IOs Vital Signs Date Time Temp Pulse Resp B/P (MAP) Pulse Ox O2 Delivery O2 Flow Rate FiO2 06/08/17 06:46 97.5 62 18 105/58 (74) 95 Assessment & Plan Problem List: (1) Bipolar disorder ICD Codes: F31.9 - Bipolar disorder Status: Acute (2) Seizure disorder ICD Codes: G40.909 - Seizure disorder Status: Chronic Assessment & Plan Estimated LOS: days patient continues depressed he is compliant with his medications. He does denies suicidality at this time also. For now continue treatment Justification for Cont. Inpt. With this time patient decompensate the placement lower level of care Discharge Planning Consul continues to work on placement issues Request HC Surrog/Guard Advoc?: No Problem Qualifiers (1) Bipolar disorder: Qualified Codes: F31.77 - Bipolar disorder, in partial remission, most recent episode mixed Eder Pina MD Jun 08, 2017 15:29
[2017-06-08 18:00] VITALS: BP 110/58; PULSE 64; RESP 17; TEMP 98.5; O2SAT 96
[2017-06-08] MEDS: DIVALPROEX SODIUM E.R. 500 MG TAB PO SCH (20:54)
[2017-06-08] MEDS: traZODone HCL 100 MG TAB PO SCH (20:54)
[2017-06-09 06:44] VITALS: BP 100/61; PULSE 56; RESP 14; TEMP 97.6; O2SAT 93
[2017-06-09] MEDS: LACTOBACILLUS ACIDOPHILUS TAB PO SCH ×3 (08:00→16:02)
[2017-06-09] MEDS: levETIRAcetam 500 MG TAB PO SCH ×2 (09:00→21:09)
[2017-06-09] MEDS: SERTRALINE HCL 100 MG TAB PO SCH (09:00)
[2017-06-09] MEDS: DOCUSATE SODIUM 50 MG/SENNA 8.6 MG TAB PO SCH ×2 (09:00→21:10)
[2017-06-09] MEDS: CALCIUM/VITAMIN D 250 MG/125 U TAB PO SCH ×2 (09:00→21:10)
[2017-06-09] MEDS: QUEtiapine FUMARATE 25 MG TAB PO SCH ×3 (09:00→16:02)
--- NOTE | 2017-06-09 12:30 | HHI.PYPN ---
Subjective Chief Complaint: patient admitted for increased depression suicidal ideation Remarks Patient seen in his room with nurse Danelle, patient continues to isolate spending much time in bed. Discussed mild for meals then returns to his room. Somewhat irritable at times. Though he denies suicidality or voices. Review of Systems Except as stated in HPI: all other systems reviewed are Neg Mental Status Examination Appearance: Appropriate Consciousness: Alert Orientation: Person, Place, Date/Time, Situation Motor Activity: Normal gait Speech: Unremarkable Language: Adequate Fund of Knowledge: Adequate Attention and Concentration: Other (fair) Memory: Unremarkable Mood: Sad, Irritable Affect: Flat Thought Process & Associations: Linear Thought Content: Appropriate Hallucination Type: Auditory (somewhat vague) Delusion Type: None Suicidal Ideation: Yes (vague) Suicidal Plan: No Suicidal Intention: No Homicidal Ideation: No Homicidal Plan: No Homicidal Intention: No Insight: Poor Judgment: Poor Results Vitals/IOs Vital Signs Date Time Temp Pulse Resp B/P (MAP) Pulse Ox O2 Delivery O2 Flow Rate FiO2 06/09/17 06:44 97.6 56 14 100/61 (74) 93 Intake and Output 06/09/17 06/09/17 06/10/17 08:00 16:00 00:00 Intake Total 0 ml Balance 0 ml Assessment & Plan Problem List: (1) Bipolar disorder ICD Codes: F31.9 - Bipolar disorder Status: Acute (2) Seizure disorder ICD Codes: G40.909 - Seizure disorder Status: Chronic Assessment & Plan Estimated LOS: days patient continues depressed isolating and somewhat irritable. Though he denies suicidality. She medication adjustment about Justification for Cont. Inpt. At this time patient decompensated placed a lower level of care Discharge Planning Placement remains problematic counselors continue to address this issue Request HC Surrog/Guard Advoc?: No Problem Qualifiers (1) Bipolar disorder: Qualified Codes: F31.77 - Bipolar disorder, in partial remission, most recent episode mixed Eder Pina MD Jun 09, 2017 12:30
--- NOTE | 2017-06-09 15:43 | HHI.PR ---
Subjective Remarks Follow up on patient with seizure disorder, HTN, Hep C, COPD. Patient seen and examined. Patient states "I'm sick" but will not give specifics outside of belly pain. He is unsure of last BM. EEG completed but results pending. Discussed with nursing staff, no acute issues noted. WILL GIVE LACTULOSE 06-08 FEEL BETTER TODAY HAD GOOD BOWEL MOVEMENTS DOES NOT FEEL FULL TODAY MORE ALERT TODAY DW PATIENT AND RN 06-09 no new complaints Objective Vitals Vital Signs Date Time Temp Pulse Resp B/P (MAP) Pulse Ox O2 Delivery O2 Flow Rate FiO2 06/09/17 06:44 97.6 56 14 100/61 (74) 93 06/08/17 18:00 98.5 64 17 110/58 (75) 96 I/O 06/08/17 06/08/17 06/08/17 06/09/17 06/09/17 06/09/17 07:00 15:00 23:00 07:00 15:00 23:00 Intake Total 0 ml 360 ml 0 ml Balance 0 ml 360 ml 0 ml Intake Oral 0 ml 360 ml 0 ml # Voids 1 1 1 1 Imaging Last Impressions Brain MRI 06/06/17 0000 Signed Impressions: Service Date/Time: Tuesday, June 06, 2017 08:39 - CONCLUSION: 1. Atrophy. 2. No acute intracranial abnormality. 3. Sinus disease. Eder Jansen MD Chest X-Ray 06/02/17 1836 Signed Impressions: Service Date/Time: Friday, June 02, 2017 19:02 - CONCLUSION: No acute disease. No significant change has occurred. Orlando Fuentes MD Head CT 06/02/17 0000 Signed Impressions: Service Date/Time: Friday, June 02, 2017 19:37 - CONCLUSION: Stable CT brain scan. Atrophy. No acute intracranial process. Orlando Fuentes MD Objective Remarks GENERAL: Awake and alert but lethargic just had MRI SKIN: Warm and dry. HEAD: Atraumatic. Normocephalic. EYES: Pupils equal and round. No scleral icterus. No injection or drainage. Extraction muscles. Grossly intact ENT: No nasal bleeding or discharge. Mucous membranes pink and moist. Tongue is midline NECK: Trachea midline. No JVD. Supple CARDIOVASCULAR: Regular rate and rhythm. S1 and S2 no S3 or S4 RESPIRATORY: No accessory muscle use. Clear to auscultation. Breath sounds equal bilaterally. GASTROINTESTINAL: Abdomen soft, non-tender, nondistended. Hepatic and splenic margins not palpable. MUSCULOSKELETAL: Extremities without clubbing, cyanosis, or edema. No obvious deformities. NEUROLOGICAL: Awake and alert. No obvious cranial nerve deficits. Motor grossly within normal limits. 4 out of 5 muscle strength in the arms and legs. Normal speech. PSYCHIATRIC: INAppropriate mood and affect; insight and judgment ABnormal. Procedures EEG Abnormal EEG due to moderate slowing consistent with encephalopathic process versus medicine effect and no epileptiform features. Clinical correlation. Medications and IVs Current Medications Sodium Chloride (NS Flush) 2 ml UNSCH PRN IVF FLUSH AFTER USING IV ACCESS; Start 06/02/17 at 18:45 Lorazepam (Ativan) 1 mg Q6H PRN PO MODERATE TO SEVERE ANXIETY; Start 06/03/17 at 01:00 Lorazepam (Ativan Inj) 1 mg Q6H PRN IM MODERATE TO SEVERE ANXIETY; Start 06/03 at 01:00 Hydroxyzine HCl (Atarax) 50 mg Q6H PRN PO ANXIETY; Start 06/03/17 at 01:00 Diphenhydramine HCl (Benadryl) 50 mg Q6H PRN PO MILD ANXIETY, EPS; Start 06/03 at 01:00 Diphenhydramine HCl (Benadryl Inj) 50 mg Q6H PRN IM MILD ANXIETY, EPS; Start 06/03/17 at 01:00 Benztropine Mesylate (Cogentin) 1 mg Q12H PRN PO EXTRA PYRAMIDAL SYMPTOMS; Start 06/03/17 at 01:00 Benztropine Mesylate (Cogentin Inj) 1 mg Q12H PRN IM EXTRA PYRAMIDAL SYMPTOMS; Start 06/03/17 at 01:00 Diphenhydramine HCl (Benadryl) 50 mg HS PRN PO INSOMNIA Last administered on t 21:03; Start 06/03/17 at 01:00 Diphenhydramine HCl (Benadryl Inj) 50 mg HS PRN IM INSOMNIA; Start 06/03/17 at 01:00 Acetaminophen (Tylenol) 650 mg Q4H PRN PO Pain 1-5 or Temp >101F; Start at 01:00 Magnesium Hydroxide (Milk Of Magnesia Liq) 30 ml DAILY PRN PO CONSTIPATION; Start 06/03/17 at 01:00 Al Hydrox/Mg Hydrox/Simethicone (Mag-Al Plus Susp Liq) 30 ml Q6H PRN PO DYSPEPSIA; Start 06/03/17 at 01:00 Albuterol Sulfate (Proair Hfa Inh) 2 puff Q4H PRN INH SHORTNESS OF BREATH; Start 06/03/17 at 01:00 Sertraline HCl (Zoloft) 200 mg DAILY PO Last administered on 06/03/17 09:00; Start 06/03/17 at 09:00; Stop 06/03/17 at 12:27; Status DC Calcium/Vitamin D (Oscal-D 250-125) 500 mg BID PO Last administered on 09:00; Start 06/03/17 at 09:00 Trazodone HCl (Desyrel) 100 mg HS PO ; Start 06/03/17 at 21:00; Stop 06/03/17 at 21:00; Status DC Divalproex Sodium (Depakote Er) 1,000 mg HS PO ; Start 06/03/17 at 21:00; Stop 06/03/17 at 21:00; Status DC Levetriacetam (Keppra) 1,500 mg Q12HR PO Last administered on 06/03/17 09:00 ; Start 06/03/17 at 09:00; Stop 06/03/17 at 12:26; Status DC Albuterol Sulfate (Proair Hfa Inh) 2 puff Q4H PRN INH SHORTNESS OF BREATH; Start 06/03/17 at 11:15; Status UNV Divalproex Sodium (Depakote Er) 1,000 mg HS PO Last administered on 06/08/17 20:54; Start 06/03/17 at 21:00 Lactobacillus Acidophilus (Lactinex) 1 tab TIDAC PO Last administered on 12:00; Start 06/03/17 at 12:30 Levetriacetam (Keppra) 1,500 mg Q12HR PO Last administered on 06/09/17 09:00 ; Start 06/03/17 at 21:00 Non-Formulary Medication 1 tab BID PO ; Start 06/03/17 at 21:00; Status UNV Sodium Chloride ([place] Isacc [place]) 1 spray Q4H PRN EACH NARE NASAL CONGESTION; Start 06/03/17 at 14:15 Quetiapine Fumarate (SEROquel) 25 mg TID PO Last administered on 06/09/17 12: 13; Start 06/03/17 at 13:00 Sertraline HCl (Zoloft) 200 mg DAILY PO Last administered on 06/09/17 09:00; Start 06/04/17 at 09:00 Trazodone HCl (Desyrel) 250 mg HS PO Last administered on 06/08/17 20:54; Start 06/03/17 at 21:00 Miscellaneous (Pill Splitter) 1 ea UNSCH PRN OTHER SEE LABEL COMMENTS; Start 06/03/17 at 12:30 Senna/Docusate Sodium (Leanne-Colace) 1 tab BID PO Last administered on 09:00; Start 06/07/17 at 15:00 Lactulose (Lactulose Liq) 30 ml ONCE ONCE PO Last administered on 06/07/17 15:43; Start 06/07/17 at 15:00; Stop 06/07/17 at 15:01; Status DC A/P Problem List: (1) Seizure disorder ICD Code: G40.909 - Seizure disorder Status: Chronic (2) Bipolar disorder ICD Code: F31.9 - Bipolar disorder Status: Acute (3) Suicidal ideations ICD Code: R45.851 - Suicidal ideations Status: Acute Assessment and Plan 61-year-old male admitted secondary to depression and PTSD, reporting increased frequency of seizures Seizure disorder He is at baseline Possibility of missed dosages, given dementia Continue Keppra Continue Depakote Neurology consulted. MRI ordered, no acute intracranial abnormality. EEG completed, results pending. Keppra 78.4, Depakote 87 - defer to Neurology. Hypertension hypotensive at present. Not on any medications. Follow blood pressures discussed with nursing staff. Encourage po intake. Paroxysmal VT Hyperlipidemia Cirrhosis COPD Dementia Chronic pancreatitis Gout Hepatitis C Hepatitis B Insomnia Thrombocytopenia- chronic No decompensation of these conditions No change to baseline managements of these conditions Baseline outpatient treatments are reviewed and medical reconciliation was done in regards to these treatments Difficulty ambulation- sounds chronic- states history of left hip surgery- gets around with a WC- states had surgery years ago by Dr. Castellano continue with PT Suspected constipation Give dose of lactulose monitor for BM stool softener daily HAD BM FEELING BETTER- DOES NOT FEEL FULL Discussed with patient and nursing staff Discharge Planning WHEN CLEARED BY PSYCHIATRY Problem Qualifiers (1) Bipolar disorder: Qualified Codes: F31.77 - Bipolar disorder, in partial remission, most recent episode mixed Silvestre Brady DO Jun 09, 2017 15:43
[2017-06-09] MEDS: DIVALPROEX SODIUM E.R. 500 MG TAB PO SCH (21:10)
[2017-06-09] MEDS: traZODone HCL 100 MG TAB PO SCH (21:10)
[2017-06-10 05:49] VITALS: BP 90/59; PULSE 66; RESP 16; TEMP 98; O2SAT 94
[2017-06-10] MEDS: LACTOBACILLUS ACIDOPHILUS TAB PO SCH ×3 (07:35→17:23)
[2017-06-10] MEDS: DOCUSATE SODIUM 50 MG/SENNA 8.6 MG TAB PO SCH ×2 (08:42→22:47)
[2017-06-10] MEDS: levETIRAcetam 500 MG TAB PO SCH ×2 (08:42→22:46)
[2017-06-10] MEDS: CALCIUM/VITAMIN D 250 MG/125 U TAB PO SCH ×2 (08:42→22:46)
[2017-06-10] MEDS: SERTRALINE HCL 100 MG TAB PO SCH (08:42)
[2017-06-10] MEDS: QUEtiapine FUMARATE 25 MG TAB PO SCH ×3 (08:42→17:23)
--- NOTE | 2017-06-10 12:34 | HHI.PYPN ---
Subjective Chief Complaint: patient admitted for increased depression suicidal ideation Remarks Patient seen today in his room with nurse Rebeca, patient sitting in Kinsey chair. Chart reviewed patient compliant medications. Patient continues sad depressed marked decreased range intensity of his affect. Thus a hopelessness with him also complains of being weak and not being able to ambulate very far even with a walker. He does denies suicidality at this time. For now continue treatment Review of Systems Except as stated in HPI: all other systems reviewed are Neg Mental Status Examination Appearance: Appropriate Consciousness: Alert Orientation: Person, Place, Date/Time, Situation Motor Activity: Normal gait Speech: Unremarkable Language: Adequate Fund of Knowledge: Adequate Attention and Concentration: Other (fair) Memory: Unremarkable Mood: Sad, Irritable Affect: Flat Thought Process & Associations: Linear Thought Content: Appropriate Hallucination Type: Auditory (somewhat vague) Delusion Type: None Suicidal Ideation: Yes (vague) Suicidal Plan: No Suicidal Intention: No Homicidal Ideation: No Homicidal Plan: No Homicidal Intention: No Insight: Poor Judgment: Poor Results Vitals/IOs Vital Signs Date Time Temp Pulse Resp B/P (MAP) Pulse Ox O2 Delivery O2 Flow Rate FiO2 06/10/17 05:49 98.0 66 16 90/59 (69) 94 Intake and Output 06/10/17 06/10/17 06/11/17 08:00 16:00 00:00 Intake Total 240 ml Balance 240 ml Assessment & Plan Problem List: (1) Bipolar disorder ICD Codes: F31.9 - Bipolar disorder Status: Acute (2) Seizure disorder ICD Codes: G40.909 - Seizure disorder Status: Chronic Assessment & Plan Estimated LOS: days patient continues depressed will isolation some mild to moderate psychomotor retardation, though he denies voices or visions. Is compliant medication Justification for Cont. Inpt. At this time patient decompensate if placed in a lower level of care Discharge Planning It appears patient is able to return to [facility] once he is stabilized Request HC Surrog/Guard Advoc?: No Problem Qualifiers (1) Bipolar disorder: Qualified Codes: F31.77 - Bipolar disorder, in partial remission, most recent episode mixed Eder Pina MD Jun 10, 2017 12:34
[2017-06-10 18:32] VITALS: BP 87/57; PULSE 61; RESP 18; TEMP 98.1; O2SAT 96
[2017-06-10] MEDS: DIVALPROEX SODIUM E.R. 500 MG TAB PO SCH (22:47)
[2017-06-10] MEDS: traZODone HCL 100 MG TAB PO SCH (22:47)
[2017-06-11 06:39] VITALS: BP 94/63; PULSE 63; RESP 15; TEMP 97.7; O2SAT 96
[2017-06-11] MEDS: DOCUSATE SODIUM 50 MG/SENNA 8.6 MG TAB PO SCH ×2 (09:49→20:41)
[2017-06-11] MEDS: LACTOBACILLUS ACIDOPHILUS TAB PO SCH ×3 (09:49→17:43)
[2017-06-11] MEDS: levETIRAcetam 500 MG TAB PO SCH ×2 (09:49→20:41)
[2017-06-11] MEDS: QUEtiapine FUMARATE 25 MG TAB PO SCH ×3 (09:49→17:44)
[2017-06-11] MEDS: CALCIUM/VITAMIN D 250 MG/125 U TAB PO SCH ×2 (09:49→20:41)
[2017-06-11] MEDS: SERTRALINE HCL 100 MG TAB PO SCH (09:49)
--- NOTE | 2017-06-11 12:30 | HHI.PYPN ---
Subjective Chief Complaint: patient admitted for increased depression suicidal ideation Remarks Patient seen in his room, with floor staff, chart review, patient compliant medications. Patient continues to isolate with sad mood. He though he does come out for meals, he does denies suicidality voices or visions at this time. For now continue treatment Mental Status Examination Appearance: Appropriate Consciousness: Alert Orientation: Person, Place, Date/Time, Situation Motor Activity: Normal gait Speech: Unremarkable Language: Adequate Fund of Knowledge: Adequate Attention and Concentration: Other (fair) Memory: Unremarkable Mood: Sad, Irritable Affect: Flat Thought Process & Associations: Linear Thought Content: Appropriate Hallucination Type: Auditory (somewhat vague) Delusion Type: None Suicidal Ideation: Yes (vague) Suicidal Plan: No Suicidal Intention: No Homicidal Ideation: No Homicidal Plan: No Homicidal Intention: No Insight: Poor Judgment: Poor Results Vitals/IOs Vital Signs Date Time Temp Pulse Resp B/P (MAP) Pulse Ox O2 Delivery O2 Flow Rate FiO2 06/11/17 06:39 97.7 63 15 94/63 (73) 96 Intake and Output 06/11/17 06/11/17 06/12/17 08:00 16:00 00:00 Intake Total 0 ml 360 ml Balance 0 ml 360 ml Assessment & Plan Problem List: (1) Bipolar disorder ICD Codes: F31.9 - Bipolar disorder Status: Acute (2) Seizure disorder ICD Codes: G40.909 - Seizure disorder Status: Chronic Assessment & Plan Estimated LOS: days patient is to isolate continues depressed, though compliant medications. Except for the isolation he has no significant behavioral problems. For now continue treatment Justification for Cont. Inpt. At this time patient will decompensate if placed in a lower level of care Discharge Planning Patient continues depressed needs further stabilization Request HC Surrog/Guard Advoc?: No Problem Qualifiers (1) Bipolar disorder: Qualified Codes: F31.77 - Bipolar disorder, in partial remission, most recent episode mixed Eder Pina MD Jun 11, 2017 12:30
[2017-06-11 18:29] VITALS: BP 101/73; PULSE 75; RESP 16; O2SAT 96
[2017-06-11] MEDS: DIVALPROEX SODIUM E.R. 500 MG TAB PO SCH (20:41)
[2017-06-11] MEDS: traZODone HCL 100 MG TAB PO SCH (20:41)
[2017-06-12] MEDS: ACETAMINOPHEN 325 MG TAB PO PRN ×2 (02:54→06:52)
[2017-06-12 06:00] VITALS: BP 82/50; PULSE 58; RESP 18; TEMP 97.8; O2SAT 96
[2017-06-12] MEDS: LACTOBACILLUS ACIDOPHILUS TAB PO SCH ×3 (06:45→16:53)
[2017-06-12] MEDS: DOCUSATE SODIUM 50 MG/SENNA 8.6 MG TAB PO SCH ×2 (08:55→21:00)
[2017-06-12] MEDS: CALCIUM/VITAMIN D 250 MG/125 U TAB PO SCH ×2 (08:55→21:00)
[2017-06-12] MEDS: levETIRAcetam 500 MG TAB PO SCH ×2 (08:55→20:59)
[2017-06-12] MEDS: SERTRALINE HCL 100 MG TAB PO SCH (08:56)
[2017-06-12] MEDS: QUEtiapine FUMARATE 25 MG TAB PO SCH ×3 (08:56→18:06)
--- NOTE | 2017-06-12 13:41 | HHI.PYPN ---
Subjective Chief Complaint: patient admitted for increased depression suicidal ideation Remarks Patient was seen and case discussed with nursing. Patient remains isolative and flat. Mood remains depressed. Patient is hard of hearing limiting the interview. Vital signs was reviewed and patient has been hypotensive, he says he feels mildly dizzy. Mental Status Examination Appearance: Disheveled Consciousness: Alert Orientation: Person, Place, Date/Time, Situation Motor Activity: Normal gait Speech: Unremarkable Language: Adequate Fund of Knowledge: Adequate Attention and Concentration: Other (fair) Memory: Unremarkable Mood: Sad, Irritable Affect: Flat Thought Process & Associations: Other Thought Content: Appropriate Hallucination Type: Auditory (somewhat vague) Delusion Type: None Suicidal Ideation: Yes (vague) Suicidal Plan: No Suicidal Intention: No Homicidal Ideation: No Homicidal Plan: No Homicidal Intention: No Insight: Poor Judgment: Poor Results Vitals/IOs Vital Signs Date Time Temp Pulse Resp B/P (MAP) Pulse Ox O2 Delivery O2 Flow Rate FiO2 06/12/17 08:00 16 06/12/17 06:00 97.8 58 82/50 (61) 96 Intake and Output 06/12/17 06/12/17 06/13/17 08:00 16:00 00:00 Intake Total 0 ml 0 ml Balance 0 ml 0 ml Assessment & Plan Problem List: (1) Bipolar disorder ICD Codes: F31.9 - Bipolar disorder Status: Acute (2) Seizure disorder ICD Codes: G40.909 - Seizure disorder Status: Chronic Assessment & Plan Vitals every 6 hours, get a set of orthostatics, consult medicine for possible medication adjustment Justification for Cont. Inpt. Patient would decompensate in a less restrictive setting Request HC Surrog/Guard Advoc?: No Problem Qualifiers (1) Bipolar disorder: Qualified Codes: F31.77 - Bipolar disorder, in partial remission, most recent episode mixed Felipe Fernandes DO Jun 12, 2017 13:41
[2017-06-12 15:00] VITALS: BP_SYST 102; BP_SYST 108; BP_DIAS 66; BP_DIAS 89
--- NOTE | 2017-06-12 15:19 | HHI.PR ---
Subjective Remarks Reconsulted for Hypotension Patient reports he is feeling ok. No dizziness at rest. Patient reports he only gets dizzy If he gets up too fast. No episodes of shortness of breath or chest pain. He denies syncope. Objective Vitals Vital Signs Date Time Temp Pulse Resp B/P (MAP) Pulse Ox O2 Delivery O2 Flow Rate FiO2 06/12/17 08:00 16 06/12/17 06:00 97.8 58 18 82/50 (61) 96 06/11/17 18:29 75 16 101/73 (82) 96 I/O 06/11/17 06/11/17 06/11/17 06/12/17 06/12/17 06/12/17 07:00 15:00 23:00 07:00 15:00 23:00 Intake Total 0 ml 360 ml 600 ml 0 ml 0 ml Balance 0 ml 360 ml 600 ml 0 ml 0 ml Intake Oral 0 ml 360 ml 600 ml 0 ml 0 ml # Voids 1 2 1 # Bowel Movements 0 0 Objective Remarks GENERAL: Somewhat disheveled male. SKIN: Warm and dry. HEAD: Atraumatic. Normocephalic. EYES: Pupils equal and round. No scleral icterus. No injection or drainage. NECK: Trachea midline. No JVD. CARDIOVASCULAR: Regular rate and rhythm. RESPIRATORY: No accessory muscle use. Clear to auscultation. Breath sounds equal bilaterally. GASTROINTESTINAL: Abdomen soft, non-tender, nondistended. Hepatic and splenic margins not palpable. MUSCULOSKELETAL: Extremities without clubbing, cyanosis, or edema. No obvious deformities. NEUROLOGICAL: Awake and alert. No obvious cranial nerve deficits. Motor grossly within normal limits. Five out of 5 muscle strength in the arms and legs. Normal speech. PSYCHIATRIC: Calm Procedures EEG Abnormal EEG due to moderate slowing consistent with encephalopathic process versus medicine effect and no epileptiform features. Clinical correlation. A/P Problem List: (1) Seizure disorder ICD Code: G40.909 - Seizure disorder Status: Chronic (2) Bipolar disorder ICD Code: F31.9 - Bipolar disorder Status: Acute (3) Suicidal ideations ICD Code: R45.851 - Suicidal ideations Status: Acute Assessment and Plan 61-year-old male admitted secondary to depression and PTSD, reporting increased frequency of seizures. Patient admitted into psychiatry for exacerbation of bipolar disorder. Seizure disorder - Neurology following. Continue Keppra Continue Depakote MRI, no acute intracranial abnormality. EEG with no Epileptiform activities. Hypotension:The patient has a history of hypertension. His blood pressure is borderline low. He is asymptomatic at rest. However endorsed dizziness when standing too fast - Suspect Orthostatic Hypotension - Obtain Orthostatic vital signs. Bradycardia may be contributing as well. - Repeat EKG. Holter monitor order. - May consider decreasing sedating medications such as trazodone. Deferred to psychiatry - Advised the patient to get up slowly to avoid dizziness H/O Hypertension hypotensive at present. Not on any medications. Follow blood pressures Encourage po intake. Difficulty with ambulation- chronic- states history of left hip surgery- gets around with a WC- states had surgery years ago by Dr. Castellano continue with PT Problem Qualifiers (1) Bipolar disorder: Qualified Codes: F31.77 - Bipolar disorder, in partial remission, most recent episode mixed Melanie Velasco MD Jun 12, 2017 15:19
[2017-06-12 19:00] VITALS: BP 88/57; PULSE 61; RESP 17; TEMP 97.7; O2SAT 95
[2017-06-12 20:57] VITALS: BP 94/64; PULSE 69; RESP 18; TEMP 97.6; O2SAT 97
[2017-06-12 21:00] VITALS: BP 112/70; PULSE 60
[2017-06-12] MEDS: DIVALPROEX SODIUM E.R. 500 MG TAB PO SCH (21:00)
[2017-06-12] MEDS: traZODone HCL 100 MG TAB PO SCH (21:00)
[2017-06-13 06:09] VITALS: BP 98/67; PULSE 54; RESP 16; TEMP 97.4; O2SAT 98
[2017-06-13] MEDS: QUEtiapine FUMARATE 25 MG TAB PO SCH ×3 (08:49→17:12)
[2017-06-13] MEDS: levETIRAcetam 500 MG TAB PO SCH ×2 (08:49→20:53)
[2017-06-13] MEDS: DOCUSATE SODIUM 50 MG/SENNA 8.6 MG TAB PO SCH ×2 (08:49→20:53)
[2017-06-13] MEDS: SERTRALINE HCL 100 MG TAB PO SCH (08:49)
[2017-06-13] MEDS: CALCIUM/VITAMIN D 250 MG/125 U TAB PO SCH ×2 (08:49→20:52)
[2017-06-13] MEDS: LACTOBACILLUS ACIDOPHILUS TAB PO SCH ×3 (08:49→17:12)
[2017-06-13 09:00] VITALS: BP 94/65; PULSE 66
--- NOTE | 2017-06-13 11:30 | HHI.PR ---
Subjective Remarks No new issues. States he is ok as long as he uses the walker and does not get up too fast, no dizziness at rest. Objective Vitals Vital Signs Date Time Temp Pulse Resp B/P (MAP) Pulse Ox O2 Delivery O2 Flow Rate FiO2 06/13/17 09:00 66 94/65 (75) 06/13/17 06:09 97.4 54 16 98/67 (77) 98 06/12/17 21:00 60 112/70 (84) 06/12/17 20:57 97.6 69 18 94/64 (74) 97 06/12/17 19:00 97.7 61 17 88/57 (67) 95 I/O 06/12/17 06/12/17 06/12/17 06/13/17 06/13/17 06/13/17 07:00 15:00 23:00 07:00 15:00 23:00 Intake Total 0 ml 0 ml 240 ml 360 ml Balance 0 ml 0 ml 240 ml 360 ml Intake Oral 0 ml 0 ml 240 ml 360 ml # Voids 1 1 4 # Bowel Movements 0 0 Objective Remarks GENERAL: Somewhat disheveled male. CARDIOVASCULAR: Regular rate and rhythm. RESPIRATORY: No accessory muscle use. Clear to auscultation. Breath sounds equal bilaterally. GASTROINTESTINAL: Abdomen soft, non-tender, nondistended. Hepatic and splenic margins not palpable. MUSCULOSKELETAL: Extremities without clubbing, cyanosis, or edema. No obvious deformities. NEUROLOGICAL: Awake and alert. Normal speech. PSYCHIATRIC: Calm Procedures EEG Abnormal EEG due to moderate slowing consistent with encephalopathic process versus medicine effect and no epileptiform features. Clinical correlation. A/P Problem List: (1) Seizure disorder ICD Code: G40.909 - Seizure disorder Status: Chronic (2) Bipolar disorder ICD Code: F31.9 - Bipolar disorder Status: Acute (3) Suicidal ideations ICD Code: R45.851 - Suicidal ideations Status: Acute Assessment and Plan 61-year-old male admitted secondary to depression and PTSD, reporting increased frequency of seizures. Patient admitted into psychiatry for exacerbation of bipolar disorder. Seizure disorder - Neurology following. Continue Keppra Continue Depakote MRI, no acute intracranial abnormality. EEG with no Epileptiform activities. Hypotension:The patient has a history of hypertension. His blood pressure is borderline low. He is asymptomatic at rest. However endorsed dizziness when standing too fast - Suspect Orthostatic Hypotension - Obtain Orthostatic vital signs. Intermittent bradycardia may be contributing as well. - Repeat EKG shows sinus rhythm. Holter monitor order. - Psychiatry. Trazodone held. Patient is sleeping a lot. - Advised the patient to get up slowly to avoid dizziness - Encourage oral hydration H/O Hypertension hypotensive at present. Not on any medications. Follow blood pressures Encourage po intake. Difficulty with ambulation- chronic- states history of left hip surgery- gets around with a WC- states had surgery years ago by Dr. Castellano continue with PT Problem Qualifiers (1) Bipolar disorder: Qualified Codes: F31.77 - Bipolar disorder, in partial remission, most recent episode mixed Melanie Velasco MD Jun 13, 2017 11:30
--- NOTE | 2017-06-13 11:31 | HHI.PYPN ---
Subjective Chief Complaint: patient admitted for increased depression suicidal ideation Remarks Patient was seen and case discussed with nursing. Interview remains difficult given patient's hearing difficulties. Thought process remains disorganized and somewhat loose. Medicine is following the patient and ordered a Holter monitor. They suggested putting trazodone on hold Mental Status Examination Appearance: Disheveled Consciousness: Alert Orientation: Person, Place, Date/Time, Situation Motor Activity: Normal gait Speech: Unremarkable Language: Adequate Fund of Knowledge: Adequate Attention and Concentration: Other (fair) Memory: Unremarkable Mood: Sad, Irritable Affect: Blunt Thought Process & Associations: Other Thought Content: Appropriate Hallucination Type: Auditory (somewhat vague) Delusion Type: None Suicidal Ideation: Yes (vague) Suicidal Plan: No Suicidal Intention: No Homicidal Ideation: No Homicidal Plan: No Homicidal Intention: No Insight: Poor Judgment: Poor Results Vitals/IOs Vital Signs Date Time Temp Pulse Resp B/P (MAP) Pulse Ox O2 Delivery O2 Flow Rate FiO2 06/13/17 09:00 66 94/65 (75) 06/13/17 06:09 97.4 16 98 Intake and Output 06/13/17 06/13/17 06/14/17 08:00 16:00 00:00 Intake Total 0 ml Balance 0 ml Assessment & Plan Problem List: (1) Bipolar disorder ICD Codes: F31.9 - Bipolar disorder Status: Acute (2) Seizure disorder ICD Codes: G40.909 - Seizure disorder Status: Chronic Assessment & Plan Hold trazodone Justification for Cont. Inpt. Patient would decompensate in a less restrictive setting Request HC Surrog/Guard Advoc?: No Problem Qualifiers (1) Bipolar disorder: Qualified Codes: F31.77 - Bipolar disorder, in partial remission, most recent episode mixed Felipe Fernandes DO Jun 13, 2017 11:31
[2017-06-13 16:01] VITALS: BP_SYST 118; BP_SYST 87; BP_DIAS 62; BP_DIAS 65
[2017-06-13 18:28] VITALS: BP 114/64; PULSE 62; RESP 17; TEMP 97.7; O2SAT 98
--- NOTE | 2017-06-13 20:51 | EKG ---
Date Performed: 06/12/2017 Time Performed: 17:30:47 PTAGE: 61 years EKG: Sinus rhythm NORMAL ECG PREVIOUS TRACING : 06/02/2017 22.05 DOCTOR: Maik Hendrickson Interpretating Date/Time 06/13/2017 20:46:05
[2017-06-13] MEDS: DIVALPROEX SODIUM E.R. 500 MG TAB PO SCH (20:52)
[2017-06-14 05:38] VITALS: BP 88/52; PULSE 51; RESP 17; TEMP 97.7
[2017-06-14 08:00] VITALS: BP_SYST 90; BP_SYST 92; BP_SYST 98; BP_DIAS 62; BP_DIAS 64
[2017-06-14] MEDS: DOCUSATE SODIUM 50 MG/SENNA 8.6 MG TAB PO SCH ×2 (09:47→21:00)
[2017-06-14] MEDS: SERTRALINE HCL 100 MG TAB PO SCH (09:47)
[2017-06-14] MEDS: CALCIUM/VITAMIN D 250 MG/125 U TAB PO SCH ×2 (09:47→21:04)
[2017-06-14] MEDS: QUEtiapine FUMARATE 25 MG TAB PO SCH ×2 (09:47→21:03)
[2017-06-14] MEDS: LACTOBACILLUS ACIDOPHILUS TAB PO SCH ×3 (09:47→15:54)
[2017-06-14] MEDS: levETIRAcetam 500 MG TAB PO SCH ×2 (09:48→21:02)
--- NOTE | 2017-06-14 10:32 | HHI.PYPN ---
Subjective Chief Complaint: patient admitted for increased depression suicidal ideation Remarks Patient is seen in his room with medical student Fabiano, chart review, patient compliant medications. Patient is been noted to be somewhat sedated through the day. We'll discontinue the 3 times a day Seroquel and that 50 mg Seroquel at at bedtime. Patient still isolating to his bed quite a bit. P showing a slight increase in his affect. Be more verbal cueing is somewhat convoluted history of injury to his left hip with various sequelae them and follow through by both orthopedists in [facility] [place] [facility]. For now continue treatment Review of Systems Except as stated in HPI: all other systems reviewed are Neg Mental Status Examination Appearance: Disheveled Consciousness: Alert Orientation: Person, Place, Date/Time, Situation Motor Activity: Normal gait Speech: Unremarkable Language: Adequate Fund of Knowledge: Adequate Attention and Concentration: Other (fair) Memory: Unremarkable Mood: Sad, Irritable Affect: Blunt Thought Process & Associations: Other Thought Content: Appropriate Hallucination Type: Auditory (somewhat vague) Delusion Type: None Suicidal Ideation: Yes (vague) Suicidal Plan: No Suicidal Intention: No Homicidal Ideation: No Homicidal Plan: No Homicidal Intention: No Insight: Poor Judgment: Poor Results Vitals/IOs Vital Signs Date Time Temp Pulse Resp B/P (MAP) Pulse Ox O2 Delivery O2 Flow Rate FiO2 06/14/17 05:38 97.7 51 17 88/52 (64) 06/13/17 18:28 98 Intake and Output 06/14/17 06/14/17 06/15/17 08:00 16:00 00:00 Intake Total 0 ml Balance 0 ml Assessment & Plan Problem List: (1) Bipolar disorder ICD Codes: F31.9 - Bipolar disorder Status: Acute (2) Seizure disorder ICD Codes: G40.909 - Seizure disorder Status: Chronic Assessment & Plan Estimated LOS: days patient continues depressed isolating and somewhat somatic. He is compliant with his medication. Please medication adjustment above Justification for Cont. Inpt. At this time patient will decompensate if placed in a lower level of care Discharge Planning Counselor to work with [place] system to consider transfer to one of their facilities Request HC Surrog/Guard Advoc?: No Problem Qualifiers (1) Bipolar disorder: Qualified Codes: F31.77 - Bipolar disorder, in partial remission, most recent episode mixed Eder Pina MD Jun 14, 2017 10:32
--- NOTE | 2017-06-14 12:49 | HM ---
Date Performed: 06/12/2017 Time Performed: 17:54:00 HOOKUP DATE: 06/12/17 05:54:00 PM Sat ANALYSIS START TIME: 06/12/2017 5:59:00 PM ANALYSIS END TIME: 06/13/2017 5:44:59 PM PATIENT AGE: 61 PATIENT HEIGHT: 72 PATIENT WEIGHT: 181 DRUG LIST: ROOM # 2506 PATIENT DIAGNOSIS: DEPRESSION/PTSD TEST NARRATIVE: The patient's average heart rate was 60 BPM. No episodes of tachycardia wer e noted. Heart rates less than 50 BPM were noted 7% of the time. No pauses exceeding 2.0 seconds were noted. No ventricular ectopics were noted. No supraventricular ectopics were noted. No episodes of ST depression (defined as -1.0 mm or more) were noted in channel 1. No episodes of S T depression (defined as -1.0 mm or more) were noted in channel 2. No episodes of ST depression (def ined as -1.0 mm or more) were noted in channel 3. NO DIARY GIVEN TEST INTERPRETATION: Holter monitor demonstrates Sinus rhythm with sinus bradycardia of 48 beats per minute at 10:35 pm Wednesday. No ectopy was noted. Signed by : Elder Esteban
--- NOTE | 2017-06-14 12:49 | HM ---
Date Performed: 06/12/2017 Time Performed: 17:54:00 HOOKUP DATE: 06/12/17 05:54:00 PM Sat ANALYSIS START TIME: 06/12/2017 5:59:00 PM ANALYSIS END TIME: 06/13/2017 5:44:59 PM PATIENT AGE: 61 PATIENT HEIGHT: 72 PATIENT WEIGHT: 181 DRUG LIST: ROOM # [id number] PATIENT DIAGNOSIS: DEPRESSION/PTSD TEST NARRATIVE: The patient's average heart rate was 60 BPM. No episodes of tachycardia wer e noted. Heart rates less than 50 BPM were noted 7% of the time. No pauses exceeding 2.0 seconds were noted. No ventricular ectopics were noted. No supraventricular ectopics were noted. No episodes of ST depression (defined as -1.0 mm or more) were noted in channel 1. No episodes of S T depression (defined as -1.0 mm or more) were noted in channel 2. No episodes of ST depression (def ined as -1.0 mm or more) were noted in channel 3. NO DIARY GIVEN TEST INTERPRETATION: Holter monitor demonstrates Sinus rhythm with sinus bradycardia of 48 beats per minute at 10:35 pm Wednesday. No ectopy was noted. Signed by : Elder Esteban
[2017-06-14] MEDS: FLUDROCORTISONE ACETATE 0.1 MG TAB PO SCH (14:15)
--- NOTE | 2017-06-14 14:15 | HHI.PR ---
Subjective Remarks Patient reports he can ambulate better with a walker. Still have some lightheadedness when he gets up too fast. No issues at rest. Objective Vitals Vital Signs Date Time Temp Pulse Resp B/P (MAP) Pulse Ox O2 Delivery O2 Flow Rate FiO2 06/14/17 08:00 98/62 (74) 90/64 (73) 92/64 (73) 06/14/17 05:38 97.7 51 17 88/52 (64) 06/13/17 18:28 97.7 62 17 114/64 (81) 98 06/13/17 16:01 118/65 (82) 87/62 (70) I/O 06/13/17 06/13/17 06/13/17 06/14/17 06/14/17 06/14/17 07:00 15:00 23:00 07:00 15:00 23:00 Intake Total 360 ml 360 ml 480 ml 0 ml 0 ml Balance 360 ml 360 ml 480 ml 0 ml 0 ml Intake Oral 360 ml 360 ml 480 ml 0 ml 0 ml # Voids 4 1 1 # Bowel Movements 0 0 0 Objective Remarks GENERAL: Somewhat disheveled male. CARDIOVASCULAR: Regular rate and rhythm. RESPIRATORY: No accessory muscle use. Clear to auscultation. Breath sounds equal bilaterally. GASTROINTESTINAL: Abdomen soft, non-tender, nondistended. MUSCULOSKELETAL: Extremities without clubbing, cyanosis, or edema. No obvious deformities. NEUROLOGICAL: Awake and alert. Normal speech. PSYCHIATRIC: Calm Procedures EEG Abnormal EEG due to moderate slowing consistent with encephalopathic process versus medicine effect and no epileptiform features. Clinical correlation. A/P Problem List: (1) Seizure disorder ICD Code: G40.909 - Seizure disorder Status: Chronic (2) Bipolar disorder ICD Code: F31.9 - Bipolar disorder Status: Acute (3) Suicidal ideations ICD Code: R45.851 - Suicidal ideations Status: Acute Assessment and Plan 61-year-old male admitted secondary to depression and PTSD, reporting increased frequency of seizures. Patient admitted into psychiatry for exacerbation of bipolar disorder. Seizure disorder - Neurology following. Continue Keppra Continue Depakote MRI, no acute intracranial abnormality. EEG with no Epileptiform activities. Orthostatic Hypotension:The patient has a history of hypertension. His blood pressure is borderline low. He is asymptomatic at rest. However endorsed dizziness when standing too fast - Repeat EKG shows sinus rhythm. Holter monitor order. - DW Psychiatry. Trazodone held. More awake - Advised the patient to get up slowly to avoid dizziness - Encourage oral hydration Difficulty with ambulation- chronic- states history of left hip surgery- gets around with a WC- states had surgery years ago by Dr. Castellano continue with PT Problem Qualifiers (1) Bipolar disorder: Qualified Codes: F31.77 - Bipolar disorder, in partial remission, most recent episode mixed Melanie Velasco MD Jun 14, 2017 14:15
--- NOTE | 2017-06-14 14:21 | PD.TTN ---
Patient Problems 1. Discharge planning 2. Medication compliance 3. Knowledge deficit 4. Lack of coping skills Progress Toward Goals Provider Present: Dr. Ade Pina Provider Input: Dr. Pina's treatment team met to discuss patient treatment plan, discharge, and medication. Doctor reports patient is hopeless, depressed, 06/08/17 Patient is meeting criteria. Patient presents depressed, sad, lack of motivation. Patient will remain here until discharged. 06/14/17 patient is still very depressed, meds adjusted and meets criteria Nurse(s) Input: Patient's nurse Tanya reports patient is flat, sad, poorly motivated, depressed and hopeless. 06/08/17 Patient's nurse Tanya reports patient depressed, seclusive, needs prompting to do ADL'S. Patient went for an EEG for consult for neurology Psychiatric Counselors Present: Sonia Rdz LCSW, Camelia Norris, [facility] Psych Therapist Input: Patient seen in his room. Patient is seclusive, depressed, hopeless, easily agitated, affect blunted. Patient denies suicidal and homicidal ideation. Patient is alert to person, place and situation. Patient made poor eye contact. Patient is eating and sleeping ok. Patient does not present internally 06/08/17 Patient seen in dayroom eating his lunch. Patient made good eye contact. Patient has difficulty hearing which is adding to patient's agitation. Patient denies wanting to harm others but feels suicidal due to not feeling well and stating he has physical pain. Patient needs to be prompted to get up, patient is seclusive and wants to sleep all day and night. Patient is alert to person, and place. stimulated or with any delusional content. Patient will remain on unit until discharged. 06/14/17 patient is still very depressed, discussed if ECT is an option, also was updated that patient may not be able to return to his [facility] and then is in need for detention with PASSR II assessment Patient will still get med adjustments at this time in need for further stabilization and may have improved a little. Group Spec/RT/OT/DYER Present: MANISHA Mobley Group Spec/RT/OT/DYER Input: Naye DYER reports patient does not attend groups 06/08/17 Patient does not participate in groups. 06/14/17 patient is still not attending any groups. Sonia Rdz LCSW Jun 14, 2017 14:21
--- NOTE | 2017-06-14 14:21 | PD.TTN ---
Patient Problems 1. Discharge planning 2. Medication compliance 3. Knowledge deficit 4. Lack of coping skills Progress Toward Goals Provider Present: Dr. Ade Pina Provider Input: Dr. Pina's treatment team met to discuss patient treatment plan, discharge, and medication. Doctor reports patient is hopeless, depressed, 06/08/17 Patient is meeting criteria. Patient presents depressed, sad, lack of motivation. Patient will remain here until discharged. 06/14/17 patient is still very depressed, meds adjusted and meets criteria Nurse(s) Input: Patient's nurse Tanya reports patient is flat, sad, poorly motivated, depressed and hopeless. 06/08/17 Patient's nurse Tanya reports patient depressed, seclusive, needs prompting to do ADL'S. Patient went for an EEG for consult for neurology Psychiatric Counselors Present: Sonia Rdz LCSW, Camelia Norris, [facility] Psych Therapist Input: Patient seen in his room. Patient is seclusive, depressed, hopeless, easily agitated, affect blunted. Patient denies suicidal and homicidal ideation. Patient is alert to person, place and situation. Patient made poor eye contact. Patient is eating and sleeping ok. Patient does not present internally 06/08/17 Patient seen in dayroom eating his lunch. Patient made good eye contact. Patient has difficulty hearing which is adding to patient's agitation. Patient denies wanting to harm others but feels suicidal due to not feeling well and stating he has physical pain. Patient needs to be prompted to get up, patient is seclusive and wants to sleep all day and night. Patient is alert to person, and place. stimulated or with any delusional content. Patient will remain on unit until discharged. 06/14/17 patient is still very depressed, discussed if ECT is an option, also was updated that patient may not be able to return to his [facility] and then is in need for group home with PASSR II assessment Patient will still get med adjustments at this time in need for further stabilization and may have improved a little. Group Spec/RT/OT/DYER Present: MANISHA Mobley Group Spec/RT/OT/DYER Input: Naye DYER reports patient does not attend groups 06/08/17 Patient does not participate in groups. 06/14/17 patient is still not attending any groups. Sonia Rdz LCSW Jun 14, 2017 14:21
--- NOTE | 2017-06-14 14:21 | PD.TTN ---
Patient Problems 1. Discharge planning 2. Medication compliance 3. Knowledge deficit 4. Lack of coping skills Progress Toward Goals Provider Present: Dr. Ade Pina Provider Input: Dr. Pina's treatment team met to discuss patient treatment plan, discharge, and medication. Doctor reports patient is hopeless, depressed, 06/08/17 Patient is meeting criteria. Patient presents depressed, sad, lack of motivation. Patient will remain here until discharged. 06/14/17 patient is still very depressed, meds adjusted and meets criteria Nurse(s) Input: Patient's nurse Tanya reports patient is flat, sad, poorly motivated, depressed and hopeless. 06/08/17 Patient's nurse Tanya reports patient depressed, seclusive, needs prompting to do ADL'S. Patient went for an EEG for consult for neurology Psychiatric Counselors Present: Sonia Rdz LCSW, Camelia Norris, [facility] Psych Therapist Input: Patient seen in his room. Patient is seclusive, depressed, hopeless, easily agitated, affect blunted. Patient denies suicidal and homicidal ideation. Patient is alert to person, place and situation. Patient made poor eye contact. Patient is eating and sleeping ok. Patient does not present internally 06/08/17 Patient seen in dayroom eating his lunch. Patient made good eye contact. Patient has difficulty hearing which is adding to patient's agitation. Patient denies wanting to harm others but feels suicidal due to not feeling well and stating he has physical pain. Patient needs to be prompted to get up, patient is seclusive and wants to sleep all day and night. Patient is alert to person, and place. stimulated or with any delusional content. Patient will remain on unit until discharged. 06/14/17 patient is still very depressed, discussed if ECT is an option, also was updated that patient may not be able to return to his [facility] and then is in need for shelter with PASSR II assessment Patient will still get med adjustments at this time in need for further stabilization and may have improved a little. Group Spec/RT/OT/DYER Present: MANISHA Mobley Group Spec/RT/OT/DYER Input: Naye DYER reports patient does not attend groups 06/08/17 Patient does not participate in groups. 06/14/17 patient is still not attending any groups. Sonia Rdz LCSW Jun 14, 2017 14:21
[2017-06-14 18:46] VITALS: BP 117/69; PULSE 57; RESP 17; TEMP 98.2; O2SAT 97
[2017-06-14] MEDS: DIVALPROEX SODIUM E.R. 500 MG TAB PO SCH (21:03)
[2017-06-15 05:47] VITALS: BP 100/62; PULSE 67; RESP 16; TEMP 98.1; O2SAT 92
[2017-06-15] MEDS: levETIRAcetam 500 MG TAB PO SCH ×2 (07:50→20:28)
[2017-06-15] MEDS: FLUDROCORTISONE ACETATE 0.1 MG TAB PO SCH (07:50)
[2017-06-15] MEDS: CALCIUM/VITAMIN D 250 MG/125 U TAB PO SCH ×2 (07:50→20:30)
[2017-06-15] MEDS: LACTOBACILLUS ACIDOPHILUS TAB PO SCH ×3 (07:50→16:14)
[2017-06-15] MEDS: SERTRALINE HCL 100 MG TAB PO SCH (07:51)
[2017-06-15] MEDS: DOCUSATE SODIUM 50 MG/SENNA 8.6 MG TAB PO SCH ×2 (07:51→20:30)
--- NOTE | 2017-06-15 12:55 | HHI.PR ---
Subjective Remarks Patient reports he is doing ok. DORCAS RN. No lightheadedness. BP better. Objective Vitals Vital Signs Date Time Temp Pulse Resp B/P (MAP) Pulse Ox O2 Delivery O2 Flow Rate FiO2 06/15/17 05:47 98.1 67 16 100/62 (75) 92 06/14/17 18:46 98.2 57 17 117/69 (85) 97 I/O 06/14/17 06/14/17 06/14/17 06/15/17 06/15/17 06/15/17 07:00 15:00 23:00 07:00 15:00 23:00 Intake Total 0 ml 0 ml 120 ml 124 ml 240 ml Balance 0 ml 0 ml 120 ml 124 ml 240 ml Intake Oral 0 ml 0 ml 120 ml 124 ml 240 ml # Voids 1 2 1 # Bowel Movements 0 Objective Remarks GENERAL: Somewhat disheveled male. CARDIOVASCULAR: Regular rate and rhythm. RESPIRATORY: No accessory muscle use. Clear to auscultation. Breath sounds equal bilaterally. GASTROINTESTINAL: Abdomen soft, non-tender, nondistended. MUSCULOSKELETAL: Extremities without clubbing, cyanosis, or edema. No obvious deformities. NEUROLOGICAL: Awake and alert. Normal speech. PSYCHIATRIC: Calm Procedures EEG Abnormal EEG due to moderate slowing consistent with encephalopathic process versus medicine effect and no epileptiform features. Clinical correlation. A/P Problem List: (1) Seizure disorder ICD Code: G40.909 - Seizure disorder Status: Chronic (2) Bipolar disorder ICD Code: F31.9 - Bipolar disorder Status: Acute (3) Suicidal ideations ICD Code: R45.851 - Suicidal ideations Status: Acute Assessment and Plan 61-year-old male admitted secondary to depression and PTSD, reporting increased frequency of seizures. Patient admitted into psychiatry for exacerbation of bipolar disorder. Seizure disorder - Neurology following. Continue Keppra Continue Depakote MRI, no acute intracranial abnormality. EEG with no Epileptiform activities. Orthostatic Hypotension: Improved. The patient has a history of hypertension. His blood pressure is borderline low. He is asymptomatic at rest. However endorsed dizziness when standing too fast - Repeat EKG shows sinus rhythm. Holter monitor order. - DORCAS Psychiatry. Trazodone held. More awake - Advised the patient to get up slowly to avoid dizziness - Encourage oral hydration Patient was started on Florinef and BP much improved. Difficulty with ambulation- chronic- states history of left hip surgery- gets around with a WC- states had surgery years ago by Dr. Castellano continue with PT Will sign off. Please call or reconsult as needed. Problem Qualifiers (1) Bipolar disorder: Qualified Codes: F31.77 - Bipolar disorder, in partial remission, most recent episode mixed Melanie Velasco MD Jun 15, 2017 12:55
[2017-06-15] MEDS: ACETAMINOPHEN 325 MG TAB PO PRN (13:36)
--- NOTE | 2017-06-15 14:38 | HHI.PYPN ---
Subjective Chief Complaint: patient admitted for increased depression suicidal ideation Remarks Patient seen in his room with medical student ruby, patient alert, though today somewhat redundant in his speaking above the ID clinic and his difficulties with them. He does denies suicidality. While speaking with him his able to get out of bed and started walking fairly well with his walker. For now continue treatment. Placement appears to becoming somewhat problematic with him Review of Systems Except as stated in HPI: all other systems reviewed are Neg Mental Status Examination Appearance: Disheveled Consciousness: Alert Orientation: Person, Place, Date/Time, Situation Motor Activity: Normal gait Speech: Unremarkable Language: Adequate Fund of Knowledge: Adequate Attention and Concentration: Other (fair) Memory: Unremarkable Mood: Sad, Irritable Affect: Blunt Thought Process & Associations: Other Thought Content: Appropriate Hallucination Type: Auditory (somewhat vague) Delusion Type: None Suicidal Ideation: Yes (vague) Suicidal Plan: No Suicidal Intention: No Homicidal Ideation: No Homicidal Plan: No Homicidal Intention: No Insight: Poor Judgment: Poor Results Vitals/IOs Vital Signs Date Time Temp Pulse Resp B/P (MAP) Pulse Ox O2 Delivery O2 Flow Rate FiO2 06/15/17 05:47 98.1 67 16 100/62 (75) 92 Intake and Output 06/15/17 06/15/17 06/16/17 08:00 16:00 00:00 Intake Total 364 ml 240 ml Balance 364 ml 240 ml Assessment & Plan Problem List: (1) Bipolar disorder ICD Codes: F31.9 - Bipolar disorder Status: Acute (2) Seizure disorder ICD Codes: G40.909 - Seizure disorder Status: Chronic Assessment & Plan Estimated LOS: days patient calmer today somewhat more alert somewhat more energetic got up spontaneously without assistance use the walker and was walking the halls. Denies suicidality homicidality. Compliant medication Justification for Cont. Inpt. 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
--- NOTE | 2017-06-15 14:38 | HHI.PYPN ---
Subjective Chief Complaint: patient admitted for increased depression suicidal ideation Remarks Patient seen in his room with medical student ruby, patient alert, though today somewhat redundant in his speaking above the OR clinic and his difficulties with them. He does denies suicidality. While speaking with him his able to get out of bed and started walking fairly well with his walker. For now continue treatment. Placement appears to becoming somewhat problematic with him Review of Systems Except as stated in HPI: all other systems reviewed are Neg Mental Status Examination Appearance: Disheveled Consciousness: Alert Orientation: Person, Place, Date/Time, Situation Motor Activity: Normal gait Speech: Unremarkable Language: Adequate Fund of Knowledge: Adequate Attention and Concentration: Other (fair) Memory: Unremarkable Mood: Sad, Irritable Affect: Blunt Thought Process & Associations: Other Thought Content: Appropriate Hallucination Type: Auditory (somewhat vague) Delusion Type: None Suicidal Ideation: Yes (vague) Suicidal Plan: No Suicidal Intention: No Homicidal Ideation: No Homicidal Plan: No Homicidal Intention: No Insight: Poor Judgment: Poor Results Vitals/IOs Vital Signs Date Time Temp Pulse Resp B/P (MAP) Pulse Ox O2 Delivery O2 Flow Rate FiO2 06/15/17 05:47 98.1 67 16 100/62 (75) 92 Intake and Output 06/15/17 06/15/17 06/16/17 08:00 16:00 00:00 Intake Total 364 ml 240 ml Balance 364 ml 240 ml Assessment & Plan Problem List: (1) Bipolar disorder ICD Codes: F31.9 - Bipolar disorder Status: Acute (2) Seizure disorder ICD Codes: G40.909 - Seizure disorder Status: Chronic Assessment & Plan Estimated LOS: days patient calmer today somewhat more alert somewhat more energetic got up spontaneously without assistance use the walker and was walking the halls. Denies suicidality homicidality. Compliant medication Justification for Cont. Inpt. At this time patient will decompensate if not placed in an appropriate level of care Discharge Planning Placement may become somewhat problematic since working for the [place] system Request HC Surrog/Guard Advoc?: No Problem Qualifiers (1) Bipolar disorder: Qualified Codes: F31.77 - Bipolar disorder, in partial remission, most recent episode mixed Eder Pina MD Jun 15, 2017 14:38
--- NOTE | 2017-06-15 14:38 | HHI.PYPN ---
Subjective Chief Complaint: patient admitted for increased depression suicidal ideation Remarks Patient seen in his room with medical student ruby, patient alert, though today somewhat redundant in his speaking above the [place] clinic and his difficulties with them. He does denies suicidality. While speaking with him his able to get out of bed and started walking fairly well with his walker. For now continue treatment. Placement appears to becoming somewhat problematic with him Review of Systems Except as stated in HPI: all other systems reviewed are Neg Mental Status Examination Appearance: Disheveled Consciousness: Alert Orientation: Person, Place, Date/Time, Situation Motor Activity: Normal gait Speech: Unremarkable Language: Adequate Fund of Knowledge: Adequate Attention and Concentration: Other (fair) Memory: Unremarkable Mood: Sad, Irritable Affect: Blunt Thought Process & Associations: Other Thought Content: Appropriate Hallucination Type: Auditory (somewhat vague) Delusion Type: None Suicidal Ideation: Yes (vague) Suicidal Plan: No Suicidal Intention: No Homicidal Ideation: No Homicidal Plan: No Homicidal Intention: No Insight: Poor Judgment: Poor Results Vitals/IOs Vital Signs Date Time Temp Pulse Resp B/P (MAP) Pulse Ox O2 Delivery O2 Flow Rate FiO2 06/15/17 05:47 98.1 67 16 100/62 (75) 92 Intake and Output 06/15/17 06/15/17 06/16/17 08:00 16:00 00:00 Intake Total 364 ml 240 ml Balance 364 ml 240 ml Assessment & Plan Problem List: (1) Bipolar disorder ICD Codes: F31.9 - Bipolar disorder Status: Acute (2) Seizure disorder ICD Codes: G40.909 - Seizure disorder Status: Chronic Assessment & Plan Estimated LOS: days patient calmer today somewhat more alert somewhat more energetic got up spontaneously without assistance use the walker and was walking the halls. Denies suicidality homicidality. Compliant medication Justification for Cont. Inpt. At this time patient will decompensate if not placed in an appropriate level of care Discharge Planning Placement may become somewhat problematic since working for the [place] system Request HC Surrog/Guard Advoc?: No Problem Qualifiers (1) Bipolar disorder: Qualified Codes: F31.77 - Bipolar disorder, in partial remission, most recent episode mixed Eder Pina MD Jun 15, 2017 14:38
[2017-06-15 17:11] VITALS: BP 111/69; PULSE 86; RESP 16; TEMP 98.6; O2SAT 96
[2017-06-15] MEDS: DIVALPROEX SODIUM E.R. 500 MG TAB PO SCH (20:28)
[2017-06-15] MEDS: diphenhydrAMINE HCL 50 MG CAP - HS PRN PO (20:29)
[2017-06-15] MEDS: QUEtiapine FUMARATE 25 MG TAB PO SCH (20:29)
[2017-06-16 05:49] VITALS: BP 101/71; PULSE 61; RESP 18; TEMP 97.9; O2SAT 94
[2017-06-16] MEDS: LACTOBACILLUS ACIDOPHILUS TAB PO SCH ×3 (08:36→16:51)
[2017-06-16] MEDS: CALCIUM/VITAMIN D 250 MG/125 U TAB PO SCH ×2 (08:36→20:37)
[2017-06-16] MEDS: levETIRAcetam 500 MG TAB PO SCH ×2 (08:36→20:35)
[2017-06-16] MEDS: SERTRALINE HCL 100 MG TAB PO SCH (08:36)
[2017-06-16] MEDS: FLUDROCORTISONE ACETATE 0.1 MG TAB PO SCH (08:36)
[2017-06-16] MEDS: DOCUSATE SODIUM 50 MG/SENNA 8.6 MG TAB PO SCH ×2 (08:36→20:35)
--- NOTE | 2017-06-16 14:16 | HHI.PYPN ---
Subjective Chief Complaint: patient admitted for increased depression suicidal ideation Remarks Patient seen in his room laying in bed with floor staff, chart reviewed, patient compliant medications. Ration somewhat quieter more subdued today continues depressed, not perseverating on his various accomplishments with the . Placement continues to remain problematic. Staff continues to work with the [place] system Review of Systems Except as stated in HPI: all other systems reviewed are Neg Mental Status Examination Appearance: Disheveled Consciousness: Alert Orientation: Person, Place, Date/Time, Situation Motor Activity: Normal gait Speech: Unremarkable Language: Adequate Fund of Knowledge: Adequate Attention and Concentration: Other (fair) Memory: Unremarkable Mood: Sad, Irritable Affect: Blunt Thought Process & Associations: Other Thought Content: Appropriate Hallucination Type: Auditory (somewhat vague) Delusion Type: None Suicidal Ideation: Yes (vague) Suicidal Plan: No Suicidal Intention: No Homicidal Ideation: No Homicidal Plan: No Homicidal Intention: No Insight: Poor Judgment: Poor Results Vitals/IOs Vital Signs Date Time Temp Pulse Resp B/P (MAP) Pulse Ox O2 Delivery O2 Flow Rate FiO2 06/16/17 05:49 97.9 61 18 101/71 (81) 94 Intake and Output 06/16/17 06/16/17 06/17/17 08:00 16:00 00:00 Intake Total 720 ml 720 ml Balance 720 ml 720 ml Assessment & Plan Problem List: (1) Bipolar disorder ICD Codes: F31.9 - Bipolar disorder Status: Acute (2) Seizure disorder ICD Codes: G40.909 - Seizure disorder Status: Chronic Assessment & Plan Estimated LOS: days patient continues depressed isolating, so decreased his affect from yesterday. Compliant medications. Justification for Cont. Inpt. At this time patient will decompensate if not placed in an appropriate level of care Discharge Planning Counselors continue to work with [place] attempt to find placement Request HC Surrog/Guard Advoc?: No Problem Qualifiers (1) Bipolar disorder: Qualified Codes: F31.77 - Bipolar disorder, in partial remission, most recent episode mixed Eder Pina MD Jun 16, 2017 14:16
--- NOTE | 2017-06-16 14:16 | HHI.PYPN ---
Subjective Chief Complaint: patient admitted for increased depression suicidal ideation Remarks Patient seen in his room laying in bed with floor staff, chart reviewed, patient compliant medications. Ration somewhat quieter more subdued today continues depressed, not perseverating on his various accomplishments with the . Placement continues to remain problematic. Staff continues to work with the [place] system Review of Systems Except as stated in HPI: all other systems reviewed are Neg Mental Status Examination Appearance: Disheveled Consciousness: Alert Orientation: Person, Place, Date/Time, Situation Motor Activity: Normal gait Speech: Unremarkable Language: Adequate Fund of Knowledge: Adequate Attention and Concentration: Other (fair) Memory: Unremarkable Mood: Sad, Irritable Affect: Blunt Thought Process & Associations: Other Thought Content: Appropriate Hallucination Type: Auditory (somewhat vague) Delusion Type: None Suicidal Ideation: Yes (vague) Suicidal Plan: No Suicidal Intention: No Homicidal Ideation: No Homicidal Plan: No Homicidal Intention: No Insight: Poor Judgment: Poor Results Vitals/IOs Vital Signs Date Time Temp Pulse Resp B/P (MAP) Pulse Ox O2 Delivery O2 Flow Rate FiO2 06/16/17 05:49 97.9 61 18 101/71 (81) 94 Intake and Output 06/16/17 06/16/17 06/17/17 08:00 16:00 00:00 Intake Total 720 ml 720 ml Balance 720 ml 720 ml Assessment & Plan Problem List: (1) Bipolar disorder ICD Codes: F31.9 - Bipolar disorder Status: Acute (2) Seizure disorder ICD Codes: G40.909 - Seizure disorder Status: Chronic Assessment & Plan Estimated LOS: days patient continues depressed isolating, so decreased his affect from yesterday. Compliant medications. Justification for Cont. Inpt. At this time patient will decompensate if not placed in an appropriate level of care Discharge Planning Counselors continue to work with [place] attempt to find placement Request HC Surrog/Guard Advoc?: No Problem Qualifiers (1) Bipolar disorder: Qualified Codes: F31.77 - Bipolar disorder, in partial remission, most recent episode mixed Eder Pina MD Jun 16, 2017 14:16
--- NOTE | 2017-06-16 14:16 | HHI.PYPN ---
Subjective Chief Complaint: patient admitted for increased depression suicidal ideation Remarks Patient seen in his room laying in bed with floor staff, chart reviewed, patient compliant medications. Ration somewhat quieter more subdued today continues depressed, not perseverating on his various accomplishments with the . Placement continues to remain problematic. Staff continues to work with the [place] system Review of Systems Except as stated in HPI: all other systems reviewed are Neg Mental Status Examination Appearance: Disheveled Consciousness: Alert Orientation: Person, Place, Date/Time, Situation Motor Activity: Normal gait Speech: Unremarkable Language: Adequate Fund of Knowledge: Adequate Attention and Concentration: Other (fair) Memory: Unremarkable Mood: Sad, Irritable Affect: Blunt Thought Process & Associations: Other Thought Content: Appropriate Hallucination Type: Auditory (somewhat vague) Delusion Type: None Suicidal Ideation: Yes (vague) Suicidal Plan: No Suicidal Intention: No Homicidal Ideation: No Homicidal Plan: No Homicidal Intention: No Insight: Poor Judgment: Poor Results Vitals/IOs Vital Signs Date Time Temp Pulse Resp B/P (MAP) Pulse Ox O2 Delivery O2 Flow Rate FiO2 06/16/17 05:49 97.9 61 18 101/71 (81) 94 Intake and Output 06/16/17 06/16/17 06/17/17 08:00 16:00 00:00 Intake Total 720 ml 720 ml Balance 720 ml 720 ml Assessment & Plan Problem List: (1) Bipolar disorder ICD Codes: F31.9 - Bipolar disorder Status: Acute (2) Seizure disorder ICD Codes: G40.909 - Seizure disorder Status: Chronic Assessment & Plan Estimated LOS: days patient continues depressed isolating, so decreased his affect from yesterday. Compliant medications. Justification for Cont. Inpt. At this time patient will decompensate if not placed in an appropriate level of care Discharge Planning Counselors continue to work with [place] attempt to find placement Request HC Surrog/Guard Advoc?: No Problem Qualifiers (1) Bipolar disorder: Qualified Codes: F31.77 - Bipolar disorder, in partial remission, most recent episode mixed Eder Pina MD Jun 16, 2017 14:16
--- NOTE | 2017-06-16 16:29 | PD.TTN ---
Patient Problems 1. Discharge planning 2. Medication compliance 3. Knowledge deficit 4. Lack of coping skills Progress Toward Goals Provider Present: Dr. Ade Pina Provider Input: Dr. Pina's treatment team met to discuss patient treatment plan, discharge, and medication. Doctor reports patient is hopeless, depressed, 06/08/17 Patient is meeting criteria. Patient presents depressed, sad, lack of motivation. Patient will remain here until discharged. 06/14/17 patient is still very depressed, meds adjusted and meets criteria 06/16 not improving much needs a placement Nurse(s) Input: Patient's nurse Tanya reports patient is flat, sad, poorly motivated, depressed and hopeless. 06/08/17 Patient's nurse Tanya reports patient depressed, seclusive, needs prompting to do ADL'S. Patient went for an EEG for consult for neurology 06/16 compliand and still depressed and withdrawn Psychiatric Counselors Present: Sonia Rdz LCSW, Camelia Norris, [facility] Psych Therapist Input: Patient seen in his room. Patient is seclusive, depressed, hopeless, easily agitated, affect blunted. Patient denies suicidal and homicidal ideation. Patient is alert to person, place and situation. Patient made poor eye contact. Patient is eating and sleeping ok. Patient does not present internally 06/08/17 Patient seen in dayroom eating his lunch. Patient made good eye contact. Patient has difficulty hearing which is adding to patient's agitation. Patient denies wanting to harm others but feels suicidal due to not feeling well and stating he has physical pain. Patient needs to be prompted to get up, patient is seclusive and wants to sleep all day and night. Patient is alert to person, and place. stimulated or with any delusional content. Patient will remain on unit until discharged. 06/14/17 patient is still very depressed, discussed if ECT is an option, also was updated that patient may not be able to return to his [facility] and then is in need for [facility]PC with PASSR II assessment Patient will still get med adjustments at this time in need for further stabilization and may have improved a little. 06/16 trying to find [facility] care , patient is in need for more behavioral intervention, [facility] not [facility], he was in an [facility] will possibly need LTC Group Spec/RT/OT/DYER Present: MANISHA Mobley Group Spec/RT/OT/DYER Input: Naye DYER reports patient does not attend groups 06/08/17 Patient does not participate in groups. 06/16 limited to no participation 06/14/17 patient is still not attending any groups. Sonia RdzW Jun 16, 2017 16:29
--- NOTE | 2017-06-16 16:29 | PD.TTN ---
Patient Problems 1. Discharge planning 2. Medication compliance 3. Knowledge deficit 4. Lack of coping skills Progress Toward Goals Provider Present: Dr. Ade Pina Provider Input: Dr. Pina's treatment team met to discuss patient treatment plan, discharge, and medication. Doctor reports patient is hopeless, depressed, 06/08/17 Patient is meeting criteria. Patient presents depressed, sad, lack of motivation. Patient will remain here until discharged. 06/14/17 patient is still very depressed, meds adjusted and meets criteria 06/16 not improving much needs a placement Nurse(s) Input: Patient's nurse Tanya reports patient is flat, sad, poorly motivated, depressed and hopeless. 06/08/17 Patient's nurse Tanya reports patient depressed, seclusive, needs prompting to do ADL'S. Patient went for an EEG for consult for neurology 06/16 compliand and still depressed and withdrawn Psychiatric Counselors Present: Sonia Rdz LCSW, Camelia Norris, [facility] Psych Therapist Input: Patient seen in his room. Patient is seclusive, depressed, hopeless, easily agitated, affect blunted. Patient denies suicidal and homicidal ideation. Patient is alert to person, place and situation. Patient made poor eye contact. Patient is eating and sleeping ok. Patient does not present internally 06/08/17 Patient seen in dayroom eating his lunch. Patient made good eye contact. Patient has difficulty hearing which is adding to patient's agitation. Patient denies wanting to harm others but feels suicidal due to not feeling well and stating he has physical pain. Patient needs to be prompted to get up, patient is seclusive and wants to sleep all day and night. Patient is alert to person, and place. stimulated or with any delusional content. Patient will remain on unit until discharged. 06/14/17 patient is still very depressed, discussed if ECT is an option, also was updated that patient may not be able to return to his [facility] and then is in need for assisted with PASSR II assessment Patient will still get med adjustments at this time in need for further stabilization and may have improved a little. 06/16 trying to find [facility] care , patient is in need for more behavioral intervention, [facility] does not [facility], he was in an [facility] will possibly need LTC Group Spec/RT/OT/DYER Present: MANISHA Mobley Group Spec/RT/OT/DYER Input: Naye DYER reports patient does not attend groups 06/08/17 Patient does not participate in groups. 06/16 limited to no participation 06/14/17 patient is still not attending any groups. Sonia RdzW Jun 16, 2017 16:29
--- NOTE | 2017-06-16 16:29 | PD.TTN ---
Patient Problems 1. Discharge planning 2. Medication compliance 3. Knowledge deficit 4. Lack of coping skills Progress Toward Goals Provider Present: Dr. Ade Pina Provider Input: Dr. Pina's treatment team met to discuss patient treatment plan, discharge, and medication. Doctor reports patient is hopeless, depressed, 06/08/17 Patient is meeting criteria. Patient presents depressed, sad, lack of motivation. Patient will remain here until discharged. 06/14/17 patient is still very depressed, meds adjusted and meets criteria 06/16 not improving much needs a placement Nurse(s) Input: Patient's nurse Tanya reports patient is flat, sad, poorly motivated, depressed and hopeless. 06/08/17 Patient's nurse Tanya reports patient depressed, seclusive, needs prompting to do ADL'S. Patient went for an EEG for consult for neurology 06/16 compliand and still depressed and withdrawn Psychiatric Counselors Present: Sonia Rdz LCSW, Camelia Norris, [facility] Psych Therapist Input: Patient seen in his room. Patient is seclusive, depressed, hopeless, easily agitated, affect blunted. Patient denies suicidal and homicidal ideation. Patient is alert to person, place and situation. Patient made poor eye contact. Patient is eating and sleeping ok. Patient does not present internally 06/08/17 Patient seen in dayroom eating his lunch. Patient made good eye contact. Patient has difficulty hearing which is adding to patient's agitation. Patient denies wanting to harm others but feels suicidal due to not feeling well and stating he has physical pain. Patient needs to be prompted to get up, patient is seclusive and wants to sleep all day and night. Patient is alert to person, and place. stimulated or with any delusional content. Patient will remain on unit until discharged. 06/14/17 patient is still very depressed, discussed if ECT is an option, also was updated that patient may not be able to return to his [facility] and then is in need for [facility] with PASSR II assessment Patient will still get med adjustments at this time in need for further stabilization and may have improved a little. 06/16 trying to find senior care care , patient is in need for more behavioral intervention, [facility] does not support, he was in an [facility] will possibly need LTC Group Spec/RT/OT/DYER Present: MANISHA Mobley Group Spec/RT/OT/DYER Input: Naye DYER reports patient does not attend groups 06/08/17 Patient does not participate in groups. 06/16 limited to no participation 06/14/17 patient is still not attending any groups. Sonia RdzW Jun 16, 2017 16:29
[2017-06-16 18:49] VITALS: BP 120/70; PULSE 61; RESP 18; TEMP 97.9; O2SAT 93
[2017-06-16] MEDS: DIVALPROEX SODIUM E.R. 500 MG TAB PO SCH (20:37)
[2017-06-16] MEDS: QUEtiapine FUMARATE 25 MG TAB PO SCH (20:37)
[2017-06-16] MEDS: ACETAMINOPHEN 325 MG TAB PO PRN (21:28)
[2017-06-17 05:43] VITALS: BP 125/62; PULSE 59; RESP 17; TEMP 97.5; O2SAT 100
[2017-06-17] MEDS: LACTOBACILLUS ACIDOPHILUS TAB PO SCH ×3 (08:18→17:15)
[2017-06-17] MEDS: levETIRAcetam 500 MG TAB PO SCH ×2 (08:18→21:14)
[2017-06-17] MEDS: DOCUSATE SODIUM 50 MG/SENNA 8.6 MG TAB PO SCH ×2 (08:18→21:14)
[2017-06-17] MEDS: FLUDROCORTISONE ACETATE 0.1 MG TAB PO SCH (08:18)
[2017-06-17] MEDS: SERTRALINE HCL 100 MG TAB PO SCH (08:18)
[2017-06-17] MEDS: CALCIUM/VITAMIN D 250 MG/125 U TAB PO SCH ×2 (08:32→21:14)
--- NOTE | 2017-06-17 13:20 | HHI.PYPN ---
Subjective Chief Complaint: patient admitted for increased depression suicidal ideation Remarks Patient seen in his room with medical student ruby, chart review, patient compliant medications. Patient laying in bed somewhat drowsy and napping. Though arousable to awake and alert. Continues a somewhat sad face. Continues to isolate. Initially is hoping to return to [facility]. That may not be an option. We continue to work on placement issues Review of Systems Except as stated in HPI: all other systems reviewed are Neg Mental Status Examination Appearance: Disheveled Consciousness: Alert Orientation: Person, Place, Date/Time, Situation Motor Activity: Normal gait Speech: Unremarkable Language: Adequate Fund of Knowledge: Adequate Attention and Concentration: Other (fair) Memory: Unremarkable Mood: Sad, Irritable Affect: Blunt Thought Process & Associations: Other Thought Content: Appropriate Hallucination Type: Auditory (somewhat vague) Delusion Type: None Suicidal Ideation: Yes (vague) Suicidal Plan: No Suicidal Intention: No Homicidal Ideation: No Homicidal Plan: No Homicidal Intention: No Insight: Poor Judgment: Poor Results Vitals/IOs Vital Signs Date Time Temp Pulse Resp B/P (MAP) Pulse Ox O2 Delivery O2 Flow Rate FiO2 06/17/17 05:43 97.5 59 17 125/62 (83) 100 Intake and Output 06/17/17 06/17/17 06/18/17 08:00 16:00 00:00 Intake Total 240 ml 600 ml Balance 240 ml 600 ml Assessment & Plan Problem List: (1) Bipolar disorder ICD Codes: F31.9 - Bipolar disorder Status: Acute (2) Seizure disorder ICD Codes: G40.909 - Seizure disorder Status: Chronic Assessment & Plan Estimated LOS: days patient is somewhat depressed but slowly improving. However today he still remains in bed. Denies suicidality of voices. Is compliant with medication. Justification for Cont. Inpt. At this time patient will decompensate if placed in a lower level of care Discharge Planning Counselors continue to work on placement issues Request HC Surrog/Guard Advoc?: No Problem Qualifiers (1) Bipolar disorder: Qualified Codes: F31.77 - Bipolar disorder, in partial remission, most recent episode mixed Eder Pina MD Jun 17, 2017 13:19
[2017-06-17] MEDS: QUEtiapine FUMARATE 25 MG TAB PO SCH (21:13)
[2017-06-17] MEDS: DIVALPROEX SODIUM E.R. 500 MG TAB PO SCH (21:14)
[2017-06-18 06:23] VITALS: BP 102/57; PULSE 56; TEMP 98; O2SAT 95
[2017-06-18] MEDS: DOCUSATE SODIUM 50 MG/SENNA 8.6 MG TAB PO SCH ×2 (08:44→20:33)
[2017-06-18] MEDS: FLUDROCORTISONE ACETATE 0.1 MG TAB PO SCH (08:44)
[2017-06-18] MEDS: SERTRALINE HCL 100 MG TAB PO SCH (08:44)
[2017-06-18] MEDS: CALCIUM/VITAMIN D 250 MG/125 U TAB PO SCH ×2 (08:44→20:35)
[2017-06-18] MEDS: levETIRAcetam 500 MG TAB PO SCH ×2 (08:45→20:33)
[2017-06-18] MEDS: LACTOBACILLUS ACIDOPHILUS TAB PO SCH ×4 (08:45→17:51)
--- NOTE | 2017-06-18 14:09 | HHI.PYPN ---
Subjective Chief Complaint: patient admitted for increased depression suicidal ideation Remarks Patient seen in his room with medical student Matthew, chart review, patient compliant medication. She continues to isolate though getting out for occasional meals. However he is alert he does state he is feeling somewhat more energized that he is getting a little bit better. Wish to focus on returning to [facility]. He does denies suicidality voices or visions Review of Systems Except as stated in HPI: all other systems reviewed are Neg Mental Status Examination Appearance: Disheveled Consciousness: Alert Orientation: Person, Place, Date/Time, Situation Motor Activity: Normal gait Speech: Unremarkable Language: Adequate Fund of Knowledge: Adequate Attention and Concentration: Other (fair) Memory: Unremarkable Mood: Sad, Irritable Affect: Blunt Thought Process & Associations: Other Thought Content: Appropriate Hallucination Type: Auditory (somewhat vague) Delusion Type: None Suicidal Ideation: Yes (vague) Suicidal Plan: No Suicidal Intention: No Homicidal Ideation: No Homicidal Plan: No Homicidal Intention: No Insight: Poor Judgment: Poor Results Vitals/IOs Vital Signs Date Time Temp Pulse Resp B/P (MAP) Pulse Ox O2 Delivery O2 Flow Rate FiO2 06/18/17 06:23 98.0 56 102/57 (72) 95 06/17/17 05:43 17 Intake and Output 06/18/17 06/18/17 06/19/17 08:00 16:00 00:00 Intake Total 120 ml Balance 120 ml Assessment & Plan Problem List: (1) Bipolar disorder ICD Codes: F31.9 - Bipolar disorder Status: Acute (2) Seizure disorder ICD Codes: G40.909 - Seizure disorder Status: Chronic Assessment & Plan Estimated LOS: days patient continues depressed though his affect is slightly improved states he feels some increase in his energy. For now continue treatment Justification for Cont. Inpt. At this time patient decompensate with place the lower level of care Discharge Planning Continue to work with placement issues Request HC Surrog/Guard Advoc?: No Problem Qualifiers (1) Bipolar disorder: Qualified Codes: F31.77 - Bipolar disorder, in partial remission, most recent episode mixed Eder Pina MD Jun 18, 2017 14:09
[2017-06-18 18:06] VITALS: BP 118/59; PULSE 64; RESP 16; TEMP 97.7; O2SAT 97
[2017-06-18] MEDS: DIVALPROEX SODIUM E.R. 500 MG TAB PO SCH (20:32)
[2017-06-18] MEDS: QUEtiapine FUMARATE 25 MG TAB PO SCH (20:33)
[2017-06-18] MEDS: diphenhydrAMINE HCL 50 MG CAP - HS PRN PO (21:09)
[2017-06-19 06:04] VITALS: BP 120/56; PULSE 54; RESP 18; TEMP 97.9; O2SAT 96
[2017-06-19] MEDS: CALCIUM/VITAMIN D 250 MG/125 U TAB PO SCH ×2 (08:40→20:26)
[2017-06-19] MEDS: SERTRALINE HCL 100 MG TAB PO SCH (08:40)
[2017-06-19] MEDS: levETIRAcetam 500 MG TAB PO SCH ×2 (08:40→20:26)
[2017-06-19] MEDS: DOCUSATE SODIUM 50 MG/SENNA 8.6 MG TAB PO SCH ×2 (08:40→20:25)
[2017-06-19] MEDS: FLUDROCORTISONE ACETATE 0.1 MG TAB PO SCH (08:41)
[2017-06-19] MEDS: LACTOBACILLUS ACIDOPHILUS TAB PO SCH ×3 (09:55→18:11)
--- NOTE | 2017-06-19 14:25 | HHI.PYPN ---
Subjective Chief Complaint: patient admitted for increased depression suicidal ideation Remarks Pt seen and discussed with staff. He remains depressed and remained in bed all of morning.After lunch he became agitated and began threatening staff. He received benadryl 50mg IM X1 for safety which calmed pt. No SI/HI. During interview he is calm and cooperative but resistant to suggestions of behavioral activation Mental Status Examination Appearance: Disheveled Consciousness: Alert Orientation: Person, Place, Date/Time, Situation Motor Activity: Normal gait Speech: Unremarkable Language: Adequate Fund of Knowledge: Adequate Attention and Concentration: Other (fair) Memory: Unremarkable Mood: Sad, Irritable Affect: Blunt Thought Process & Associations: Other Thought Content: Appropriate Hallucination Type: Auditory (somewhat vague) Delusion Type: None Suicidal Ideation: Yes (vague) Suicidal Plan: No Suicidal Intention: No Homicidal Ideation: No Homicidal Plan: No Homicidal Intention: No Insight: Poor Judgment: Poor Results Vitals/IOs Vital Signs Date Time Temp Pulse Resp B/P (MAP) Pulse Ox O2 Delivery O2 Flow Rate FiO2 06/19/17 06:04 97.9 54 18 120/56 (77) 96 Intake and Output 06/19/17 06/19/17 06/20/17 08:00 16:00 00:00 Intake Total 240 ml 0 ml Balance 240 ml 0 ml Assessment & Plan Problem List: (1) Bipolar disorder ICD Codes: F31.9 - Bipolar disorder Status: Acute (2) Seizure disorder ICD Codes: G40.909 - Seizure disorder Status: Chronic Assessment & Plan continue current tx plan. Estimated LOS: days Justification for Cont. Inpt. impairments in safety and self care Request HC Surrog/Guard Advoc?: No Problem Qualifiers (1) Bipolar disorder: Qualified Codes: F31.77 - Bipolar disorder, in partial remission, most recent episode mixed Barbara Patel MD Jun 19, 2017 14:25
[2017-06-19] MEDS: QUEtiapine FUMARATE 25 MG TAB PO SCH (20:25)
[2017-06-19] MEDS: DIVALPROEX SODIUM E.R. 500 MG TAB PO SCH (20:26)
[2017-06-20 06:00] VITALS: BP 113/64; PULSE 63; RESP 18; TEMP 97.3; O2SAT 96
[2017-06-20] MEDS: LACTOBACILLUS ACIDOPHILUS TAB PO SCH ×3 (08:55→17:08)
[2017-06-20] MEDS: FLUDROCORTISONE ACETATE 0.1 MG TAB PO SCH (08:55)
[2017-06-20] MEDS: CALCIUM/VITAMIN D 250 MG/125 U TAB PO SCH ×2 (08:55→20:10)
[2017-06-20] MEDS: DOCUSATE SODIUM 50 MG/SENNA 8.6 MG TAB PO SCH ×2 (08:55→20:10)
[2017-06-20] MEDS: levETIRAcetam 500 MG TAB PO SCH ×2 (08:55→20:10)
[2017-06-20] MEDS: SERTRALINE HCL 100 MG TAB PO SCH (08:55)
--- NOTE | 2017-06-20 13:58 | HHI.PYPN ---
Subjective Chief Complaint: patient admitted for increased depression suicidal ideation Remarks Pt seen and discussed with staff. He has been compliant with medications.No behavioral problems on unit and he has been cooperative with care. He remains isolative to room, but has been out a bit more today. Mental Status Examination Appearance: Disheveled Consciousness: Alert Orientation: Person, Place, Date/Time, Situation Motor Activity: Normal gait Speech: Unremarkable Language: Adequate Fund of Knowledge: Adequate Attention and Concentration: Other (fair) Memory: Unremarkable Mood: Sad, Irritable Affect: Blunt Thought Process & Associations: Other Thought Content: Appropriate Hallucination Type: Auditory (denies) Delusion Type: None Suicidal Ideation: No (denies today) Suicidal Plan: No Suicidal Intention: No Homicidal Ideation: No Homicidal Plan: No Homicidal Intention: No Insight: Poor Judgment: Poor Results Vitals/IOs Vital Signs Date Time Temp Pulse Resp B/P (MAP) Pulse Ox O2 Delivery O2 Flow Rate FiO2 06/20/17 06:00 97.3 63 18 113/64 (80) 96 Intake and Output 06/20/17 06/20/17 06/21/17 08:00 16:00 00:00 Intake Total 220 ml Balance 220 ml Assessment & Plan Problem List: (1) Bipolar disorder ICD Codes: F31.9 - Bipolar disorder Status: Acute (2) Seizure disorder ICD Codes: G40.909 - Seizure disorder Status: Chronic Assessment & Plan Continue current tx plan. Estimated LOS: days Justification for Cont. Inpt. risk of decompensation Request HC Surrog/Guard Advoc?: No Problem Qualifiers (1) Bipolar disorder: Qualified Codes: F31.77 - Bipolar disorder, in partial remission, most recent episode mixed Barbara Patel MD Jun 20, 2017 13:58
[2017-06-20 17:34] VITALS: BP 124/76; PULSE 67; RESP 16; TEMP 97.8; O2SAT 98
[2017-06-20] MEDS: QUEtiapine FUMARATE 25 MG TAB PO SCH (20:10)
[2017-06-20] MEDS: DIVALPROEX SODIUM E.R. 500 MG TAB PO SCH (20:10)
[2017-06-21 06:27] VITALS: BP 121/72; PULSE 52; RESP 16; TEMP 97.8; O2SAT 95
[2017-06-21] MEDS: levETIRAcetam 500 MG TAB PO SCH ×2 (08:56→21:28)
[2017-06-21] MEDS: FLUDROCORTISONE ACETATE 0.1 MG TAB PO SCH (08:57)
[2017-06-21] MEDS: SERTRALINE HCL 100 MG TAB PO SCH (08:57)
[2017-06-21] MEDS: DOCUSATE SODIUM 50 MG/SENNA 8.6 MG TAB PO SCH ×2 (08:57→21:27)
[2017-06-21] MEDS: LACTOBACILLUS ACIDOPHILUS TAB PO SCH ×3 (08:57→16:35)
[2017-06-21] MEDS: CALCIUM/VITAMIN D 250 MG/125 U TAB PO SCH ×2 (08:57→21:27)
--- NOTE | 2017-06-21 11:18 | PD.TTN ---
Patient Problems 1. Discharge planning 2. Medication compliance 3. Knowledge deficit 4. Lack of coping skills Progress Toward Goals Provider Present: Dr. Ade Pina Provider Input: Dr. Pina's treatment team met to discuss patient treatment plan, discharge, and medication. Doctor reports patient is hopeless, depressed, 06/08/17 Patient is meeting criteria. Patient presents depressed, sad, lack of motivation. Patient will remain here until discharged. 06/21 patient has been moved to other units but overall is doing better, still very depressed but onces placement arranged he is able to discharge this week 06/14/17 patient is still very depressed, meds adjusted and meets criteria 06/16 not improving much needs a placement Nurse(s) Input: Patient's nurse Tanya reports patient is flat, sad, poorly motivated, depressed and hopeless. 06/08/17 Patient's nurse Tanya reports patient depressed, seclusive, needs prompting to do ADL'S. Patient went for an EEG for consult for neurology 06/16 compliand and still depressed and withdrawn 06/21 has been upset over weekend but overall compliant and still depressed Psychiatric Counselors Present: Sonia Rdz LCSW, Camelia Norris, [facility] Psych Therapist Input: Patient seen in his room. Patient is seclusive, depressed, hopeless, easily agitated, affect blunted. Patient denies suicidal and homicidal ideation. Patient is alert to person, place and situation. Patient made poor eye contact. Patient is eating and sleeping ok. Patient does not present internally 06/08/17 Patient seen in dayroom eating his lunch. Patient made good eye contact. Patient has difficulty hearing which is adding to patient's agitation. Patient denies wanting to harm others but feels suicidal due to not feeling well and stating he has physical pain. Patient needs to be prompted to get up, patient is seclusive and wants to sleep all day and night. Patient is alert to person, and place. stimulated or with any delusional content. Patient will remain on unit until discharged. 06/14/17 patient is still very depressed, discussed if ECT is an option, also was updated that patient may not be able to return to his [facility] and then is in need for [facility] with PASSR II assessment Patient will still get med adjustments at this time in need for further stabilization and may have improved a little. 06/16 trying to find jail care , patient is in need for more behavioral intervention, [facility] does not support, he was in an SNF will possibly need LTC 06/21 upset Wednesday and needed ETO is overall able to go and [facility] assessed him and accepted him but would like his [place] Medicaid application done 1822 is complete will follow up once [employer] came for [facility] applicatio, he can go Group Spec/RT/OT/DYER Present: MANISHA Mobley Group Spec/RT/OT/DYER Input: Naye DYER reports patient does not attend groups 06/08/17 Patient does not participate in groups. 06/16 limited to no participation 06/14/17 patient is still not attending any groups. Sonia Rdz LCSW Jun 21, 2017 11:18
--- NOTE | 2017-06-21 11:18 | PD.TTN ---
Patient Problems 1. Discharge planning 2. Medication compliance 3. Knowledge deficit 4. Lack of coping skills Progress Toward Goals Provider Present: Dr. Ade Pina Provider Input: Dr. Pina's treatment team met to discuss patient treatment plan, discharge, and medication. Doctor reports patient is hopeless, depressed, 06/08/17 Patient is meeting criteria. Patient presents depressed, sad, lack of motivation. Patient will remain here until discharged. 06/21 patient has been moved to other units but overall is doing better, still very depressed but onces placement arranged he is able to discharge this week 06/14/17 patient is still very depressed, meds adjusted and meets criteria 06/16 not improving much needs a placement Nurse(s) Input: Patient's nurse Tanya reports patient is flat, sad, poorly motivated, depressed and hopeless. 06/08/17 Patient's nurse Tanya reports patient depressed, seclusive, needs prompting to do ADL'S. Patient went for an EEG for consult for neurology 06/16 compliand and still depressed and withdrawn 06/21 has been upset over weekend but overall compliant and still depressed Psychiatric Counselors Present: Sonia Rdz LCSW, Camelia Norris, [facility] Psych Therapist Input: Patient seen in his room. Patient is seclusive, depressed, hopeless, easily agitated, affect blunted. Patient denies suicidal and homicidal ideation. Patient is alert to person, place and situation. Patient made poor eye contact. Patient is eating and sleeping ok. Patient does not present internally 06/08/17 Patient seen in dayroom eating his lunch. Patient made good eye contact. Patient has difficulty hearing which is adding to patient's agitation. Patient denies wanting to harm others but feels suicidal due to not feeling well and stating he has physical pain. Patient needs to be prompted to get up, patient is seclusive and wants to sleep all day and night. Patient is alert to person, and place. stimulated or with any delusional content. Patient will remain on unit until discharged. 06/14/17 patient is still very depressed, discussed if ECT is an option, also was updated that patient may not be able to return to his [facility] and then is in need for [facility] with PASSR II assessment Patient will still get med adjustments at this time in need for further stabilization and may have improved a little. 06/16 trying to find jail care , patient is in need for more behavioral intervention, VA does not support, he was in an [facility] will possibly need LTC 06/21 upset Wednesday and needed ETO is overall able to go and [facility] assessed him and accepted him but would like his [place] Medicaid application done 1822 is complete will follow up once [employer] came for [facility] applicatio, he can go Group Spec/RT/OT/DYER Present: MANISHA Mobley Group Spec/RT/OT/DYER Input: Naye DYER reports patient does not attend groups 06/08/17 Patient does not participate in groups. 06/16 limited to no participation 06/14/17 patient is still not attending any groups. Sonia Rdz LCSW Jun 21, 2017 11:18
--- NOTE | 2017-06-21 11:18 | PD.TTN ---
Patient Problems 1. Discharge planning 2. Medication compliance 3. Knowledge deficit 4. Lack of coping skills Progress Toward Goals Provider Present: Dr. Ade Pina Provider Input: Dr. Pina's treatment team met to discuss patient treatment plan, discharge, and medication. Doctor reports patient is hopeless, depressed, 06/08/17 Patient is meeting criteria. Patient presents depressed, sad, lack of motivation. Patient will remain here until discharged. 06/21 patient has been moved to other units but overall is doing better, still very depressed but onces placement arranged he is able to discharge this week 06/14/17 patient is still very depressed, meds adjusted and meets criteria 06/16 not improving much needs a placement Nurse(s) Input: Patient's nurse Tanya reports patient is flat, sad, poorly motivated, depressed and hopeless. 06/08/17 Patient's nurse Tanya reports patient depressed, seclusive, needs prompting to do ADL'S. Patient went for an EEG for consult for neurology 06/16 compliand and still depressed and withdrawn 06/21 has been upset over weekend but overall compliant and still depressed Psychiatric Counselors Present: Sonia Rdz LCSW, Camelia Norris, [facility] Psych Therapist Input: Patient seen in his room. Patient is seclusive, depressed, hopeless, easily agitated, affect blunted. Patient denies suicidal and homicidal ideation. Patient is alert to person, place and situation. Patient made poor eye contact. Patient is eating and sleeping ok. Patient does not present internally 06/08/17 Patient seen in dayroom eating his lunch. Patient made good eye contact. Patient has difficulty hearing which is adding to patient's agitation. Patient denies wanting to harm others but feels suicidal due to not feeling well and stating he has physical pain. Patient needs to be prompted to get up, patient is seclusive and wants to sleep all day and night. Patient is alert to person, and place. stimulated or with any delusional content. Patient will remain on unit until discharged. 06/14/17 patient is still very depressed, discussed if ECT is an option, also was updated that patient may not be able to return to his [facility] and then is in need for [facility] with PASSR II assessment Patient will still get med adjustments at this time in need for further stabilization and may have improved a little. 06/16 trying to find skilled nursing care , patient is in need for more behavioral intervention, [facility] does not support, he was in an GROUP HOME will possibly need LTC 06/21 upset Wednesday and needed ETO is overall able to go and [facility] assessed him and accepted him but would like his [place] Medicaid application done 1822 is complete will follow up once [employer] came for [facility] applicatio, he can go Group Spec/RT/OT/DYER Present: MANISHA Mobley Group Spec/RT/OT/DYER Input: Naye DYER reports patient does not attend groups 06/08/17 Patient does not participate in groups. 06/16 limited to no participation 06/14/17 patient is still not attending any groups. Sonia Rdz LCSW Jun 21, 2017 11:18
--- NOTE | 2017-06-21 14:37 | HHI.PYPN ---
Subjective Chief Complaint: patient admitted for increased depression suicidal ideation Remarks Patient seen in his room napping with floor staff, chart reviewed, patient compliant medication. Patient arousable to awake and alert, though still remains somewhat sad. There is no behavior problem. Compliant medications for now continue treatment no change will recheck Her blood level in a.m. Review of Systems Except as stated in HPI: all other systems reviewed are Neg Mental Status Examination Appearance: Disheveled Consciousness: Alert Orientation: Person, Place, Date/Time, Situation Motor Activity: Normal gait Speech: Unremarkable Language: Adequate Fund of Knowledge: Adequate Attention and Concentration: Other (fair) Memory: Unremarkable Mood: Sad, Irritable Affect: Blunt Thought Process & Associations: Other Thought Content: Appropriate Hallucination Type: Auditory (denies) Delusion Type: None Suicidal Ideation: No (denies today) Suicidal Plan: No Suicidal Intention: No Homicidal Ideation: No Homicidal Plan: No Homicidal Intention: No Insight: Poor Judgment: Poor Results Vitals/IOs Vital Signs Date Time Temp Pulse Resp B/P (MAP) Pulse Ox O2 Delivery O2 Flow Rate FiO2 06/21/17 06:27 97.8 52 16 121/72 (88) 95 Assessment & Plan Problem List: (1) Bipolar disorder ICD Codes: F31.9 - Bipolar disorder Status: Acute (2) Seizure disorder ICD Codes: G40.909 - Seizure disorder Status: Chronic Assessment & Plan Estimated LOS: days this continue somewhat depressed isolating, though denying suicidality at this time. Justification for Cont. Inpt. With this time patient will decompensate if not placed in an appropriate level of care Discharge Planning Attempt to find appropriate placement for this gentleman Request HC Surrog/Guard Advoc?: No Problem Qualifiers (1) Bipolar disorder: Qualified Codes: F31.77 - Bipolar disorder, in partial remission, most recent episode mixed Eder Pina MD Jun 21, 2017 14:37
[2017-06-21 17:47] VITALS: BP 104/60; PULSE 62; RESP 16; TEMP 97.6; O2SAT 98
[2017-06-21] MEDS: DIVALPROEX SODIUM E.R. 500 MG TAB PO SCH (21:27)
[2017-06-21] MEDS: QUEtiapine FUMARATE 25 MG TAB PO SCH (21:28)
[2017-06-22 05:21] VITALS: BP 108/64; PULSE 64; RESP 17; TEMP 97.4; O2SAT 94
[2017-06-22] MEDS: LACTOBACILLUS ACIDOPHILUS TAB PO SCH ×2 (08:33→12:11)
[2017-06-22] MEDS: CALCIUM/VITAMIN D 250 MG/125 U TAB PO SCH (08:33)
[2017-06-22] MEDS: FLUDROCORTISONE ACETATE 0.1 MG TAB PO SCH (08:33)
[2017-06-22] MEDS: levETIRAcetam 500 MG TAB PO SCH (08:33)
[2017-06-22] MEDS: SERTRALINE HCL 100 MG TAB PO SCH (08:34)
[2017-06-22] MEDS: DOCUSATE SODIUM 50 MG/SENNA 8.6 MG TAB PO SCH (08:34)
[2017-06-22] MEDS ORDERED: FLUD.1 PO (11:16)
[2017-06-22] MEDS ORDERED: SENN1TAB PO (11:16)
[2017-06-22] MEDS ORDERED: CALC250 PO (11:16)
[2017-06-22] MEDS ORDERED: ZOLO100T PO (11:16)
[2017-06-22] MEDS ORDERED: TRAZ100T10 PO (11:16)
[2017-06-22] MEDS ORDERED: LEVE500 PO (11:16)
[2017-06-22] MEDS ORDERED: LACT PO (11:16)
[2017-06-22] MEDS ORDERED: SERO25TA PO (11:16)
[2017-06-22] MEDS ORDERED: DEPA500T3 PO (11:16)
--- NOTE | 2017-06-22 11:26 | HHI.DS ---
Psychiatry Discharge Summary Inpatient Psychiatric care?: Yes Advance Directive: Yes Mental Health AdvanceDirective: No Health Care Proxy: No Admission Admission Date Jun 03, 2017 at 00:35 Admission Diagnosis: (1) Bipolar disorder ICD Code: F31.9 - Bipolar disorder Brief History Patient is a 66-year-old white male well-known post multiple prior contacts comes her voluntarily from [facility] [place] were he has been a resident. History of increased seizure activity. He states he has lapses in memory related to this that he i has lack of bladder control with this and generalized shakes and tremors. He states she's been compliant with his medications. This is cause some to become somewhat depressed with vague suicidal ideation. He denies any alcohol use in over a year and a half, he states his use no cocaine in a few years. Review of our EMR shows documentation no significant alcohol abuse along with marijuana and cocaine abuse over a number of years. Other just I did see this patient for 817 in consultation for similar behavior since that time I recommended Seroquel for this patient and allow him to be discharged and return to his LONG TERM. In any Event at the present time patient does meet criteria for continued observation and assessment. For both mental health issues. And his neurological issues. There is a Her blood level ordered. I did order a Depakote blood level today. Will continue medications per the EMR. In have a neurology consult. We also have hospice consulted already. Hopeless to be a fairly short stay and he can return to [facility] Tobacco Use In Past 30 Days: 5 or More Cigarettes/Day Alcohol Use: Never Hospital Course Patient's hospital course was uneventful, though somewhat prolonged, his depression is slowly lifting. Now denies suicidality homicidality or voices or visions. Though he still remained somewhat isolated at times in bed. He is compliant with his medications. Is able to ambulate fairly well with his walker. Distally feels reach maximum benefit of this hospitalization. There is a bed available for him at [facility] today. Patient to be discharged to that facility today with Rx 1 month to follow-up [place] outpatient clinic Follow- up with primary care for his seizures. There has been a repeat Her blood level drawn this morning that will take some time to process. Results Blood Pressure 108 / 64 Vital Signs Date Time Temp Pulse Resp B/P (MAP) Pulse Ox O2 Delivery O2 Flow Rate FiO2 06/22/17 05:21 97.4 64 17 108/64 (79) 94 Laboratory Results Test 06/04/17 13:08 Cholesterol Level 188 MG/DL (120-200) HDL Cholesterol 26.9 MG/DL (40.0-60.0) Hemoglobin A1c 5.0 % (4.3-6.0) LDL Cholesterol 129 MG/DL (0-99) Triglycerides Level 161 MG/DL (42-150) Valproic Acid (Depakene) Level 87 MCG/ML (50-100) Summary of Procedures None done Imaging Last Impressions Brain MRI 06/06/17 0000 Signed Impressions: Service Date/Time: Tuesday, June 06, 2017 08:39 - CONCLUSION: 1. Atrophy. 2. No acute intracranial abnormality. 3. Sinus disease. Eder Jansen MD Chest X-Ray 06/02/17 1836 Signed Impressions: Service Date/Time: Friday, June 02, 2017 19:02 - CONCLUSION: No acute disease. No significant change has occurred. Orlando Fuentes MD Head CT 06/02/17 0000 Signed Impressions: Service Date/Time: Friday, June 02, 2017 19:37 - CONCLUSION: Stable CT brain scan. Atrophy. No acute intracranial process. Orlando Fuentes MD Pending results at discharge: Yes (Keppra blood level drawn this a.m.) Medications # of Antipsychotic meds at D/C: 1 Approp Antipsych med options 1 - Minimum of three failed multiple trials of monotherapy. 2 - Documented plan to taper to monotherapy due to previous use of multiple meds OR cross-taper in progress at D/C. 3 - Documentation of augmentation of Clozapine. 4 - Justification other than those listed in allowable values 1-3, document here : Discharge Discharge Date: Jun 22, 2017 Discharge Diagnosis: (1) Bipolar disorder Diagnosis: Principal ICD Code: F31.9 - Bipolar disorder Status: Acute (2) Seizure disorder Diagnosis: Secondary ICD Code: G40.909 - Seizure disorder Status: Chronic Pt Condition on Discharge: Stable Discharge Disposition: ACLF/VALE Discharge Instructions Diet Instructions: As Tolerated, No Restrictions Activities you can perform: Regular-No Restrictions Scheduled Appointment: [facility] Discharge Time > 30 minutes Mental Status Examination Appearance: Disheveled Consciousness: Alert Orientation: Person, Place, Date/Time, Situation Motor Activity: Normal gait Speech: Unremarkable Language: Adequate Fund of Knowledge: Adequate Attention and Concentration: Other (fair) Memory: Unremarkable Mood: Sad, Irritable Affect: Blunt Thought Process & Associations: Other Thought Content: Appropriate Hallucination Type: Auditory (denies) Delusion Type: None Suicidal Ideation: No (denies today) Suicidal Plan: No Suicidal Intention: No Homicidal Ideation: No Homicidal Plan: No Homicidal Intention: No Insight: Poor Judgment: Poor Discharge/Advance Care Plan Health Problems: (1) Bipolar disorder (2) Seizure disorder Goals to promote your health * To prevent worsening of your condition and complications * To maintain your health at the optimal level Directions to meet your goals Take your medications as prescribed Follow your dietary instruction Follow activity as directed Keep your appointments as scheduled Take your immunizations and boosters as scheduled If your symptoms worsen call your PCP, if no PCP go to Urgent Care Center or Emergency Room For 24/ questions related to your inpatient stay or results of tests pending at discharge, please contact Dr. Eder Pina at Smoking is Dangerous to Your Health. Avoid second hand smoking Problem Qualifiers (1) Bipolar disorder: Qualified Codes: F31.77 - Bipolar disorder, in partial remission, most recent episode mixed Eder Pina MD Jun 22, 2017 11:26
--- NOTE | 2017-06-22 11:26 | HHI.DS ---
Psychiatry Discharge Summary Inpatient Psychiatric care?: Yes Advance Directive: Yes Mental Health AdvanceDirective: No Health Care Proxy: No Admission Admission Date Jun 03, 2017 at 00:35 Admission Diagnosis: (1) Bipolar disorder ICD Code: F31.9 - Bipolar disorder Brief History Patient is a 66-year-old white male well-known post multiple prior contacts comes her voluntarily from individual [place] were he has been a resident. History of increased seizure activity. He states he has lapses in memory related to this that he i has lack of bladder control with this and generalized shakes and tremors. He states she's been compliant with his medications. This is cause some to become somewhat depressed with vague suicidal ideation. He denies any alcohol use in over a year and a half, he states his use no cocaine in a few years. Review of our EMR shows documentation no significant alcohol abuse along with marijuana and cocaine abuse over a number of years. Other just I did see this patient for 817 in consultation for similar behavior since that time I recommended Seroquel for this patient and allow him to be discharged and return to his LONG-TERM. In any Event at the present time patient does meet criteria for continued observation and assessment. For both mental health issues. And his neurological issues. There is a Her blood level ordered. I did order a Depakote blood level today. Will continue medications per the EMR. In have a neurology consult. We also have hospice consulted already. Hopeless to be a fairly short stay and he can return to [facility] Tobacco Use In Past 30 Days: 5 or More Cigarettes/Day Alcohol Use: Never Hospital Course Patient's hospital course was uneventful, though somewhat prolonged, his depression is slowly lifting. Now denies suicidality homicidality or voices or visions. Though he still remained somewhat isolated at times in bed. He is compliant with his medications. Is able to ambulate fairly well with his walker. Distally feels reach maximum benefit of this hospitalization. There is a bed available for him at [facility] today. Patient to be discharged to that facility today with Rx 1 month to follow-up [place] outpatient clinic Follow- up with primary care for his seizures. There has been a repeat Her blood level drawn this morning that will take some time to process. Results Blood Pressure 108 / 64 Vital Signs Date Time Temp Pulse Resp B/P (MAP) Pulse Ox O2 Delivery O2 Flow Rate FiO2 06/22/17 05:21 97.4 64 17 108/64 (79) 94 Laboratory Results Test 06/04/17 13:08 Cholesterol Level 188 MG/DL (120-200) HDL Cholesterol 26.9 MG/DL (40.0-60.0) Hemoglobin A1c 5.0 % (4.3-6.0) LDL Cholesterol 129 MG/DL (0-99) Triglycerides Level 161 MG/DL (42-150) Valproic Acid (Depakene) Level 87 MCG/ML (50-100) Summary of Procedures None done Imaging Last Impressions Brain MRI 06/06/17 0000 Signed Impressions: Service Date/Time: Tuesday, June 06, 2017 08:39 - CONCLUSION: 1. Atrophy. 2. No acute intracranial abnormality. 3. Sinus disease. Eder Jansen MD Chest X-Ray 06/02/17 1836 Signed Impressions: Service Date/Time: Friday, June 02, 2017 19:02 - CONCLUSION: No acute disease. No significant change has occurred. Orlando Fuentes MD Head CT 06/02/17 0000 Signed Impressions: Service Date/Time: Friday, June 02, 2017 19:37 - CONCLUSION: Stable CT brain scan. Atrophy. No acute intracranial process. Orlando Fuentes MD Pending results at discharge: Yes (Keppra blood level drawn this a.m.) Medications # of Antipsychotic meds at D/C: 1 Approp Antipsych med options 1 - Minimum of three failed multiple trials of monotherapy. 2 - Documented plan to taper to monotherapy due to previous use of multiple meds OR cross-taper in progress at D/C. 3 - Documentation of augmentation of Clozapine. 4 - Justification other than those listed in allowable values 1-3, document here : Discharge Discharge Date: Jun 22, 2017 Discharge Diagnosis: (1) Bipolar disorder Diagnosis: Principal ICD Code: F31.9 - Bipolar disorder Status: Acute (2) Seizure disorder Diagnosis: Secondary ICD Code: G40.909 - Seizure disorder Status: Chronic Pt Condition on Discharge: Stable Discharge Disposition: ACLF/VALE Discharge Instructions Diet Instructions: As Tolerated, No Restrictions Activities you can perform: Regular-No Restrictions Scheduled Appointment: [facility] Discharge Time > 30 minutes Mental Status Examination Appearance: Disheveled Consciousness: Alert Orientation: Person, Place, Date/Time, Situation Motor Activity: Normal gait Speech: Unremarkable Language: Adequate Fund of Knowledge: Adequate Attention and Concentration: Other (fair) Memory: Unremarkable Mood: Sad, Irritable Affect: Blunt Thought Process & Associations: Other Thought Content: Appropriate Hallucination Type: Auditory (denies) Delusion Type: None Suicidal Ideation: No (denies today) Suicidal Plan: No Suicidal Intention: No Homicidal Ideation: No Homicidal Plan: No Homicidal Intention: No Insight: Poor Judgment: Poor Discharge/Advance Care Plan Health Problems: (1) Bipolar disorder (2) Seizure disorder Goals to promote your health * To prevent worsening of your condition and complications * To maintain your health at the optimal level Directions to meet your goals Take your medications as prescribed Follow your dietary instruction Follow activity as directed Keep your appointments as scheduled Take your immunizations and boosters as scheduled If your symptoms worsen call your PCP, if no PCP go to Urgent Care Center or Emergency Room For 24/ questions related to your inpatient stay or results of tests pending at discharge, please contact Dr. Eder Pina at Smoking is Dangerous to Your Health. Avoid second hand smoking Problem Qualifiers (1) Bipolar disorder: Qualified Codes: F31.77 - Bipolar disorder, in partial remission, most recent episode mixed Eder Pina MD Jun 22, 2017 11:26
== END 2017-06-22 16:20 | DRG 885 ==
LOC: NEPE 16:04 → NEDA 06-03 00:35 → H250 06-03 02:10 → H4EA 06-14 12:30 → H260 06-17 17:35
PROVIDERS: ADMIT Psychiatry & Neurology Psychiatry; ATTEND Psychiatry & Neurology Psychiatry
DX: F31.9 Bipolar disorder, unspecified (principal); F03.90 Unspecified dementia, unspecified severity, without behavioral disturbance, psychotic disturbance, mood disturbance, and anxiety; R45.851 Suicidal ideations; D69.6 Thrombocytopenia, unspecified; B19.10 Unspecified viral hepatitis B without hepatic coma; K86.1 Other chronic pancreatitis; G40.409 Other generalized epilepsy and epileptic syndromes, not intractable, without status epilepticus; I10 Essential (primary) hypertension; J44.9 Chronic obstructive pulmonary disease, unspecified; H91.90 Unspecified hearing loss, unspecified ear; M10.9 Gout, unspecified; F41.9 Anxiety disorder, unspecified; G89.29 Other chronic pain; M54.5 Low back pain; R07.89 Other chest pain; E78.5 Hyperlipidemia, unspecified; F43.10 Post-traumatic stress disorder, unspecified; G47.00 Insomnia, unspecified; I95.1 Orthostatic hypotension; K74.60 Unspecified cirrhosis of liver; B19.20 Unspecified viral hepatitis C without hepatic coma; Z96.653 Presence of artificial knee joint, bilateral; M25.552 Pain in left hip; R53.1 Weakness
CPT/HCPCS: 70450; 70551; 71010; 80048; 80053; 80061; 80164; 80177; 80307; 82550; 83036; 83735; 84484; 85025; 85610; 85730; 93005; 93225; 93226; 95819; J1200; Q0163

== ENCOUNTER 2017-08-27 23:47 | Inpatient (IN) | payer OTHER, MEDICAID ==
[~2017-08-27] VITALS: Ht 180.3 cm; Wt 72.7 kg
[~2017-08-27 23:47] MED LIST changes: +CALC250 PO; +FLUD.1 PO; +LACT PO; -LEVO500T3 PO; -PRED20 PO; +SENN1TAB PO; +SERO25TA PO; +TRAZ100T10 PO
[2017-08-28 00:03] VITALS: BP 151/97; PULSE 66; RESP 18; TEMP 98.9; O2SAT 94
[2017-08-28] MEDS ORDERED: diphenhydrAMINE HCL 50 MG/ML VIAL IM ONE ×2 (01:00→02:30)
[2017-08-28] MEDS ORDERED: LORazepam 2 MG/ML VIAL IM ONE ×3 (01:00→05:45)
[2017-08-28] MEDS ORDERED: HALOPERIDOL LACTATE 5 MG/ML AMP IM ONE ×3 (01:00→13:30)
[2017-08-28] MEDS ORDERED: LORazepam 2 MG/ML VIAL IV PUSH ONE (02:45)
--- NOTE | 2017-08-28 06:52 | PD ---
HPI . fall Chief Complaint: Fall Time Seen by Provider: 00:08 Travel History International Travel<30 days: No Contact w/Intl Traveler<30days: No Traveled to known affect area: No History of Present Illness HPI 62-year-old male history of alcoholism and chronic dementia/altered mental status, presents at just fall hitting his head witnessed by bystanders. Patient is a noncontributory historian. Aggressive, combative, belligerent but redirectable intermittently verbally. This is consistent with his prior presentations [facility] Past Medical History Narrative Medical Past medical history reviewed Arthritis: No Asthma: No Autoimmune Disease: No Blood Disorders: No Bipolar Disorder: Yes Anxiety: Yes Depression: Yes Heart Rhythm Problems: Yes (HX OF PAROXYSMAL VENTRICULAR TACHYCARDIA) Cancer: Yes Cardiovascular Problems: Yes (See EMR) High Cholesterol: Yes Chemotherapy: No Chest Pain: Yes Congestive Heart Failure: No Cirrhosis: Yes COPD: Yes Cerebrovascular Accident: No Dementia: Yes Diminished Hearing: Yes (BILATERAL) Endocrine: No Gastrointestinal Disorders: Yes (CHRONIC PANCREATITIS, CIRRHOSIS) GERD: No Glaucoma: No Gout: Yes Genitourinary: No Hepatitis: Yes (HEP C AND B) Hiatal Hernia: No Hypertension: Yes Immune Disorder: No Insomnia: Yes Kidney Stones: No Musculoskeletal: Yes (per hx..CHRONIC LOW BACK PAIN) Neurologic: Yes Reproductive: No Respiratory: Yes Immunizations Current: Yes Migraines: No Myocardial Infarction: No Pancreatitis: Yes Radiation Therapy: No Renal Failure: No Seizures: Yes (Alcohol related) Sickle Cell Disease: No Sleep Apnea: No Thyroid Disease: No Ulcer: No Past Surgical History Abdominal Surgery: Yes AICD: No Appendectomy: Yes Arteriovenous Shunt: No Cardiac Surgery: No Cholecystectomy: Yes Ear Surgery: No Endocrine Surgery: No Eye Surgery: No Genitourinary Surgery: No Gynecologic Surgery: No Insulin Pump: No Joint Replacement: No Neurologic Surgery: No Oral Surgery: No Pacemaker: No Thoracic Surgery: No Tonsillectomy: Yes Other Surgery: Yes (RIGHT LOWER ABDOMEN) Social History Alcohol Use: No (UNABLE TO OBTAIN) Tobacco Use: No Substance Use: No (unknown) Allergies-Medications (Allergen,Severity, Reaction): Coded Allergies: No Known Allergies (Verified , 11/13/16) Per patient. Reported Meds & Prescriptions Reported Meds & Active Scripts Active Trazodone (Trazodone HCl) 100 Mg Tablet 100 Mg PO 2 PO HS Zoloft (Sertraline HCl) 100 Mg Tab 200 Mg PO 2 PO DAILY Senna Plus 8.6-50 mg (Sennosides-Docusate Sodium) 8.6 Mg-50 Mg Tab 1 Tab PO BID Seroquel (Quetiapine Fumarate) 25 Mg Tab 50 Mg PO 2 PO HS Keppra (Levetiracetam) 500 Mg Tab 1,500 Mg PO 3 PO Q12H Acidophilus/l-Sporogenes (Lactobacillus Acidophilus) 35 Million Cell-25 Million Cell Tab 1 Tab PO TIDAC Fludrocortisone (Fludrocortisone Acetate) 0.1 Mg Tab 0.1 Mg PO DAILY Depakote ER (Divalproex Sodium) 500 Mg Bassam 1,000 Mg PO 2 PO HS Oyster Shell 250 mg + Vit D Tb (Calcium/Vitamin D) 250 Mg Calcium (625 Mg)-125 Unit Tablet 500 Mg PO BID Lactobacillus Acidophilus 1 Tab Tab 1 Tab PO TIDAC Quetiapine (Quetiapine Fumarate) 25 Mg Tab 25 Mg PO TID Keppra (Levetiracetam) 500 Mg Tab 1,500 Mg PO Q12HR Depakote ER (Divalproex Sodium) 500 Mg Bassam 1,000 Mg PO HS Reported Duoneb (Ipratropium-Albuterol Neb) 0.5-2.5 Mg/3 Ml Neb 1 Nebule INH QID PRN Trazodone (Trazodone HCl) 100 Mg Tab 250 Mg PO HS Calcium + D3 (Calcium Carbonate-Cholecalciferol) 600-200 Mg-Unit Tab 1 Tab PO BID Vitamin B-1 (Thiamine Mononitrate) 100 Mg Tab Ventolin Hfa 18 GM Inh (Albuterol Sulfate) 90 Mcg/Act Aer 2 Puff INH Q4-6H PRN Nasal Mist Inh (Sodium Chloride) 0.9 % Aer 1 Bellflower EACH NARE Q4H PRN Tylenol (Acetaminophen) 325 Mg Cap 325 Mg PO BID PRN Narrative Medication Allergies and medications reviewed Review of Systems ROS Limitations: Uncooperative, Refused, Combative, Poor Historian Physical Exam Exam Limitations: Poor Historian, Refused, Combative Narrative GENERAL: Awake and belligerent, combative, demented. Vital signs otherwise normal and stable SKIN: Warm and dry. Color is normal diaphoresis cyanosis or pallor HEAD: For a contusion abrasion left-sided Normocephalic. EYES: Pupils equal and round. No scleral icterus. No injection or drainage. ENT: No nasal bleeding or discharge. Mucous membranes pink and moist. NECK: Trachea midline. No JVD. Supple nontender midline patient will not wear c -collar CARDIOVASCULAR: Regular rate and rhythm. S1-S2 no murmurs rubs or gallops RESPIRATORY: No accessory muscle use. Clear to auscultation. Breath sounds equal bilaterally. GASTROINTESTINAL: Abdomen soft, non-tender, nondistended. Hepatic and splenic margins not palpable. MUSCULOSKELETAL: Extremities without clubbing, cyanosis, or edema. No obvious deformities. NEUROLOGICAL: Awake and alert. No obvious cranial nerve deficits. Motor grossly within normal limits. Five out of 5 muscle strength in the arms and legs. Normal speech. PSYCHIATRIC: Appropriate mood and affect; insight and judgment normal. Data Data Last Documented VS Vital Signs Date Time Temp Pulse Resp B/P (MAP) Pulse Ox O2 Delivery O2 Flow Rate FiO2 08/28/17 00:03 98.9 66 18 151/97 (115) [address] Brain W/O Iv Contrast(Rout) (08/28/17 ) Ct Cerv Spine W/O Contrast (08/28/17 ) Lorazepam Inj (Ativan Inj) (08/28/17 01:00) Haloperidol Inj (Haldol Inj) (08/28/17 01:00) Diphenhydramine Inj (Benadryl Inj) (08/28/17 01:00) Lorazepam Inj (Ativan Inj) (08/28/17 02:30) Diphenhydramine Inj (Benadryl Inj) (08/28/17 02:30) Haloperidol Inj (Haldol Inj) (08/28/17 02:30) Iv Access Insert/Monitor (08/28/17 02:39) Lorazepam Inj (Ativan Inj) (08/28/17 02:45) Lorazepam Inj (Ativan Inj) (08/28/17 05:45) MDM Medical Decision Making Medical Screen Exam Complete: Yes Emergency Medical Condition: Yes Medical Record Reviewed: Yes Differential Diagnosis Dementia, head injury, chronic alcoholism Narrative Course Multiple attempts were CT from patient after multiple rounds of sedative medications. CT head ED wet read, possible left medial anterior parietal mass. Awaiting radiology read Diagnosis Primary Impression: Head injury Qualified Codes: S09.90XA - Unspecified injury of head, initial encounter Additional Impression: Dementia Qualified Codes: F03.91 - Unspecified dementia with behavioral disturbance Reji Smith MD Aug 28, 2017 06:52
--- NOTE | 2017-08-28 06:54 | RADRPT ---
EXAM DATE/TIME: 08/28/2017 06:05 [facility] COMPARISON: CT BRAIN W/O CONTRAST, June 02, 2017, 19:37. INDICATIONS : Fall. Hematoma on forehead. RADIATION DOSE: 52.12 CTDIvol (mGy) MEDICAL HISTORY : Seizures. Dementia. Hypertension. SURGICAL HISTORY : None. ENCOUNTER: Initial ACUITY: 1 day PAIN SCALE: 0/10 LOCATION: cranial TECHNIQUE: Multiple contiguous axial images were obtained of the head. Using automated exposure control and adj ustment of the mA and/or kV according to patient size, radiation dose was kept as low as reasonably a chievable to obtain optimal diagnostic quality images. DICOM format image data is available electro nically for review and comparison. FINDINGS: CEREBRUM: The ventricles are normal for age. Stable diffuse bilateral cortical atrophy. No evidence of midline shift, mass lesion, hemorrhage or acute infarction. No extra-axial fluid collections are seen. POSTERIOR FOSSA: The cerebellum and brainstem are intact. The 4th ventricle is midline. The cerebellopontine angle i s unremarkable. EXTRACRANIAL: The visualized portion of the orbits is intact. SKULL: The calvaria is intact. No evidence of skull fracture. CONCLUSION: 1. No acute intracranial hemorrhage. 2. Stable diffuse bilateral cortical atrophy. 3. No significant change compared to the prior exam. Wade Butler MD on August 28, 2017 at 6:51 Board Certified Radiologist. This report was verified electronically.
--- NOTE | 2017-08-28 06:57 | RADRPT ---
EXAM DATE/TIME: 08/28/2017 06:08 [facility] COMPARISON: CT CERVICAL SPINE W/O CONTRAST, November 12, 2015, 1:07. INDICATIONS : Trauma. Fall. RADIATION DOSE: 32.86 CTDIvol (mGy) MEDICAL HISTORY : Seizures. Dementia. Hypertension. SURGICAL HISTORY : None. ENCOUNTER: Initial ACUITY: 1 day PAIN SCALE: 0/10 LOCATION: neck TECHNIQUE: Volumetric scanning of the cervical spine was performed. Multiplanar reconstructions in the sagittal, coronal and oblique axial planes were performed. Using automated exposure control and adjustment o f the mA and/or kV according to patient size, radiation dose was kept as low as reasonably achievable to obtain optimal diagnostic quality images. DICOM format image data is available electronically f or review and comparison. FINDINGS: Today's exam is compared to the prior study from 11/12/2015. There has been no new or significant mcdermott ge in the appearance of the cervical spine. No acute bony fracture. There continues to be moderate di ffuse primary degenerative changes with disc degeneration and disc space narrowing at C4-5, C5-6 and C6-7. The odontoid process is intact. No significant extradural defects are seen on the canal. CONCLUSION: 1. No acute bony fracture. 2. Stable diffuse primary degenerative changes involving the cervical spine. 3. No new or significant changes. Wade Butler MD on August 28, 2017 at 6:52 Board Certified Radiologist. This report was verified electronically.
[2017-08-28 07:05] VITALS: BP 145/88; PULSE 71; RESP 16; O2SAT 98
[2017-08-28] MEDS ORDERED: QUET1TAB7 PO (08:08)
[2017-08-28] MEDS ORDERED: SERT-129 PO (08:08)
[2017-08-28] MEDS ORDERED: HYDR50TA94 PO (08:08)
[2017-08-28 10:00] VITALS: BP 141/87; PULSE 64; RESP 16; O2SAT 98
[2017-08-28] MEDS ORDERED: SODIUM CHLORIDE 0.9% FLUSH 10 ML FLUSH IV FLUSH PRN ×2 (12:45→17:00)
[2017-08-28 13:33] VITALS: RESP 16; O2SAT 98
[2017-08-28 14:54] LABS: BASOPHIL % 0.4 % (0.0-2.0); EOSINOPHIL % 0.8 % (0.0-4.0); HEMATOCRIT 37.1 % (39.0-51.0); HEMOGLOBIN 12.9 GM/DL (13.0-17.0); LYMPH % 41.7 % (9.0-44.0); LYMPHOCYTE # 1.8 TH/MM3 (1.0-4.8); MEAN CELL VOLUME 86.6 FL (80.0-100.0); MEAN CORPUSCULAR HGB CONC 34.7 % (32.0-36.0); MONO % 10.4 % (0.0-8.0); MONOCYTE # 0.5 TH/MM3 (0-0.9); NEUT % 46.7 % (16.0-70.0); PLATELET COUNT 86 TH/MM3 (150-450); RED BLOOD COUNT 4.29 MIL/MM3 (4.50-5.90); RED CELL DISTRIBUTION WIDTH 13.6 % (11.6-17.2); WHITE BLOOD COUNT 4.3 TH/MM3 (4.0-11.0)
[2017-08-28 15:11] LABS: ALBUMIN 3.3 GM/DL (3.4-5.0); ALT (GPT) 26 U/L (12-78); AST (GOT) 57 U/L (15-37); BICARBONATE 33.8 MEQ/L (21.0-32.0); BLOOD UREA NITROGEN 5 MG/DL (7-18); CHLORIDE 103 MEQ/L (98-107); CREATININE 0.89 MG/DL (0.60-1.30); GLOMERULAR FILTRATION RATE 86 ML/MIN (>89); GLUCOSE,RANDOM 85 MG/DL (74-106); SODIUM (NA) 141 MEQ/L (136-145)
[2017-08-28] MEDS ORDERED: POTASSIUM CHLORIDE 25 MEQ EFFERVESCENT TAB PO ONE ×2 (15:30→17:00)
[2017-08-28 15:42] LABS: ALKALINE PHOSPHATASE 60 U/L (45-117); TOTAL BILIRUBIN ADULT 0.6 MG/DL (0.2-1.0); TOTAL PROTEIN 7.9 GM/DL (6.4-8.2)
[2017-08-28] MEDS ORDERED: BISACODYL 10 MG SUPP RECTAL PRN (17:00)
[2017-08-28] MEDS ORDERED: ONDANSETRON HCL 4 MG/2 ML VIAL IVP PRN (17:00)
[2017-08-28] MEDS ORDERED: NALOXONE HCL 0.4 MG/ML AMP IV PUSH PRN (17:00)
[2017-08-28] MEDS ORDERED: SENNOSIDES 8.6 MG TAB PO PRN (17:00)
[2017-08-28] MEDS ORDERED: LACTULOSE SYRUP 20 GM/30 ML CUP PO PRN (17:00)
--- NOTE | 2017-08-28 17:06 | HHI.HP ---
[facility] Admission Diagnosis hypokalemia/hyperammonemia/altered mental status/BA Diagnoses: Travel History International Travel<30 Days: No Contact w/Intl Traveler <30 Da: No Traveled to Known Affected Are: No History of Present Illness 62-year-old male with a past medical history significant for bipolar disorder, seizure disorder, gout, chronic low back pain, COPD, hypertension, chronic alcoholic pancreatitis, hepatitis B and C, dyslipidemia and a history of alcohol abuse was brought to the emergency department by EMS for evaluation of altered mental status, behavioral disturbances and witnessed fall. Patient reportedly was aggressive and combative and his VALE and fell, hitting his head. In the emergency department he was aggressive and erratic attempting to urinate on staff. He was given multiple doses of Benadryl, Haldol and Ativan. The ED attempted to discharge the patient back to his [facility] who reported that they would not accept him back secondary to his aggressive behavior. They also stated that the patient was witnessed to have said that he was going to continue to "throw himself on the floor on purpose." At the time of her interview, the patient refuses to answer any questions. He is lying in bed and will only yell "I do not want any medication." Vital signs on presentation: Temperature 98.9, pulse 66, respirations 18, BP 151/97, pulse ox 94% on room air. Patient has multiple metabolic derangements including a potassium of 2.4 and an ammonia of 61. Head CT negative for acute process. Review of Systems Unable to obtain secondary to patient's clinical condition Past Family Social History Past Medical History (Obtained from medical records) Seizure disorder Bipolar disorder Gout Chronic low back pain COPD Hypertension Chronic pancreatitis Hepatitis B and C History of alcohol abuse Dyslipidemia Past Surgical History Tonsillectomy and adenoidectomy Appendectomy ORIF left femur fracture Reported Medications Reported Meds & Active Scripts Active Trazodone (Trazodone HCl) 100 Mg Tablet 100 Mg PO 2 PO HS Fludrocortisone (Fludrocortisone Acetate) 0.1 Mg Tab 0.1 Mg PO DAILY Lactobacillus Acidophilus 1 Tab Tab 1 Tab PO TIDAC Keppra (Levetiracetam) 500 Mg Tab 1,500 Mg PO Q12HR Depakote ER (Divalproex Sodium) 500 Mg Bassam 1,000 Mg PO HS Reported Sertraline (Sertraline HCl) 100 Mg Tab 200 Mg PO DAILY Quetiapine (Quetiapine Fumarate) 25 Mg Tab 25 Mg PO HS Hydroxyzine HCl 50 Mg Tab 50 Mg PO Q6HR PRN Calcium + D3 (Calcium Carbonate-Cholecalciferol) 600-200 Mg-Unit Tab 1 Tab PO BID Allergies: Coded Allergies: No Known Allergies (Verified , 11/13/16) Per patient. Family History Unable to obtain Social History Gaffigan history of alcohol abuse. Remainder of social history unable to obtain secondary to clinical condition. Physical Exam Vital Signs Vital Signs Date Time Temp Pulse Resp B/P (MAP) Pulse Ox O2 Delivery O2 Flow Rate FiO2 08/28/17 13:33 16 98 Room Air 08/28/17 10:00 64 16 141/87 (105) 98 Room Air 08/28/17 07:05 71 16 145/88 (107) 98 Room Air 08/28/17 00:03 98.9 66 18 151/97 (115) 94 Physical Exam GENERAL: Disheveled, male lying in bed SKIN: No rashes, ecchymoses or lesions. Cool and dry. HEAD: Small abrasion on the left side of the head. Normocephalic. No temporal or scalp tenderness. EYES: Pupils equal round and reactive. Extraocular motions intact. No scleral icterus. No injection or drainage. ENT: Nose without bleeding, purulent drainage or septal hematoma. Throat without erythema, tonsillar hypertrophy or exudate. Uvula midline. Airway patent. NECK: Trachea midline. No JVD or lymphadenopathy. Supple, nontender, no meningeal signs. CARDIOVASCULAR: Regular rate and rhythm without murmurs, gallops, or rubs. RESPIRATORY: Clear to auscultation. Breath sounds equal bilaterally. No wheezes , rales, or rhonchi. GASTROINTESTINAL: Abdomen soft, non-tender, nondistended. No hepato-splenomegaly , or palpable masses. No guarding. MUSCULOSKELETAL: Extremities without clubbing, cyanosis, or edema. No joint tenderness, effusion, or edema noted. No calf tenderness. NEUROLOGICAL: Unable to assess strength or orientation as patient refuses to participate in exam. Is verbal however not answering questions. Laboratory Laboratory Tests Test 08/28/17 14:43 White Blood Count 4.3 Red Blood Count 4.29 Hemoglobin 12.9 Hematocrit 37.1 Mean Corpuscular Volume 86.6 Mean Corpuscular Hemoglobin 30.0 Mean Corpuscular Hemoglobin Concent 34.7 Red Cell Distribution Width 13.6 Platelet Count 86 Mean Platelet Volume 8.0 Neutrophils (%) (Auto) 46.7 Lymphocytes (%) (Auto) 41.7 Monocytes (%) (Auto) 10.4 Eosinophils (%) (Auto) 0.8 Basophils (%) (Auto) 0.4 Neutrophils # (Auto) 2.0 Lymphocytes # (Auto) 1.8 Monocytes # (Auto) 0.5 Eosinophils # (Auto) 0.0 Basophils # (Auto) 0.0 CBC Comment AUTO DIFF Differential Comment AUTO DIFF CONFIRMED Blood Urea Nitrogen 5 Creatinine 0.89 Random Glucose 85 Total Protein 7.9 Albumin 3.3 Calcium Level 8.0 Alkaline Phosphatase 60 Aspartate Amino Transf (AST/SGOT) 57 Alanine Aminotransferase (ALT/SGPT) 26 Total Bilirubin 0.6 Sodium Level 141 Potassium Level 2.4 Chloride Level 103 Carbon Dioxide Level 33.8 Anion Gap 4 Estimat Glomerular Filtration Rate 86 Ammonia 61 Thyroid Stimulating Hormone 3rd Gen 3.620 Result Diagram: 08/28/17 1443 08/28/17 1443 Caprini VTE Risk Assessment Caprini VTE Risk Assessment: Mod/High Risk (score >= 2) Caprini Risk Assessment Model Point Value = 1 Point Value = 2 Point Value = 3 Point Value = 5 Age 41-60 Minor surgery BMI > 25 kg/m2 Swollen legs Varicose veins or History of unexplained or recurrent spontaneous Oral contraceptives or hormone replacement Sepsis (< 1 month) Serious lung disease, including pneumonia (< 1 month) Abnormal pulmonary function Acute myocardial infarction Congestive heart failure (< 1 month) History of inflammatory bowel disease Medical patient at bed rest Age 61-74 Arthroscopic surgery Major open surgery (> 45 min) Laparoscopic surgery (> 45 min) Malignancy Confined to bed (> 72 hours) Immobilizing plaster cast Central venous access Age >= 75 History of VTE Family history of VTE Factor V Leiden Prothrombin [id number] Lupus anticoagulant Anticardiolipin antibodies Elevated serum homocysteine Heparin-induced thrombocytopenia Other congenital or acquired thrombophilia Stroke (< 1 month) Elective arthroplasty Hip, pelvis, or leg fracture Acute spinal cord injury (< 1 month) Prophylaxis Regimen Total Risk Factor Score Risk Level Prophylaxis Regimen 0-1 Low Early ambulation 2 Moderate Order ONE of the following: *Sequential Compression Device (SCD) *Heparin 5000 units SQ BID 3-4 Higher Order ONE of the following medications: *Heparin 5000 units SQ TID *Enoxaparin/Lovenox 40 mg SQ daily (WT < 150 kg, CrCl > 30 mL/min) *Enoxaparin/Lovenox 30 mg SQ daily (WT < 150 kg, CrCl > 10-29 mL/min) *Enoxaparin/Lovenox 30 mg SQ BID (WT < 150 kg, CrCl > 30 mL/min) AND/OR *Sequential Compression Device (SCD) 5 or more Highest Order ONE of the following medications: *Heparin 5000 units SQ TID (Preferred with Epidurals) *Enoxaparin/Lovenox 40 mg SQ daily (WT < 150 kg, CrCl > 30 mL/min) *Enoxaparin/Lovenox 30 mg SQ daily (WT < 150 kg, CrCl > 10-29 mL/min) *Enoxaparin/Lovenox 30 mg SQ BID (WT < 150 kg, CrCl > 30 mL/min) AND *Sequential Compression Device (SCD) Assessment and Plan Assessment and Plan Assessment/plan: 1. Altered mental status/behavioral disturbances Patient with history of behavioral disturbances that seem to be worsening Elevated ammonia may be contributing, starting lactulose CT head with no acute process Psychiatry consulted, appreciate assistance 2. Hyperammonemia Lactulose Follow ammonia level 3. Hypokalemia Status post repletion Follow-up BMP 4. Self-destructive behavior Patient currently under Avelar act Psychiatry consulted Carli 5. Seizure disorder Continue Depakote and Keppra 6. Thrombocytopenia Chronic At baseline Monitor FEN Heart healthy diet Electrolytes: as above Heparin Physician Certification 2 Midnight Certification Type: Admission for Inpatient Services Order for Inpatient Services The services are ordered in accordance with Medicare regulations or non- Medicare payer requirements, as applicable. In the case of services not specified as inpatient-only, they are appropriately provided as inpatient services in accordance with the 2-midnight benchmark. Estimated LOS (days): 2 2 days is the estimated time the patient will need to remain in the hospital, assuming treatment plan goals are met and no additional complications. Post-Hospital Plan: Not yet determined Sarah Navarrete MD Aug 28, 2017 17:06
[2017-08-28 17:20] VITALS: BP 153/77; PULSE 61; RESP 18; O2SAT 96
[2017-08-28] MEDS: HEPARIN SODIUM - SQ 10,000 UNITS/ML VIAL SQ SCH (19:24)
[2017-08-28] MEDS ORDERED: NITROGLYCERIN 2% OINT 1 GM PACKET TOPICAL ONE (20:00)
[2017-08-28] MEDS ORDERED: QUEtiapine FUMARATE 25 MG TAB PO SCH (21:00)
[2017-08-28] MEDS: SODIUM CHLORIDE 0.9% FLUSH 10 ML FLUSH IV FLUSH SCH (21:00)
[2017-08-28 21:19] VITALS: BP 170/93; PULSE 67; RESP 22; TEMP 98.2; O2SAT 94
[2017-08-28] MEDS: traZODone HCL 100 MG TAB PO SCH (22:08)
[2017-08-28] MEDS: levETIRAcetam 500 MG TAB PO SCH (22:08)
[2017-08-28] MEDS: DOCUSATE SODIUM 50 MG/SENNA 8.6 MG TAB PO SCH (22:08)
[2017-08-28] MEDS: LACTULOSE SYRUP 20 GM/30 ML CUP PO SCH (22:09)
[2017-08-28] MEDS: DIVALPROEX SODIUM E.R. 500 MG TAB PO SCH (22:09)
[2017-08-29 00:51] VITALS: BP 152/75; PULSE 69; RESP 22; TEMP 99.4; O2SAT 96
[2017-08-29 04:11] VITALS: BP 140/87; PULSE 72; RESP 20; TEMP 97.1; O2SAT 92
[2017-08-29] MEDS: HEPARIN SODIUM - SQ 10,000 UNITS/ML VIAL SQ SCH ×2 (05:57→17:01)
[2017-08-29 08:00] VITALS: BP 147/78; PULSE 63; RESP 18; TEMP 98.2; O2SAT 92
[2017-08-29] MEDS: DOCUSATE SODIUM 50 MG/SENNA 8.6 MG TAB PO SCH ×2 (08:52→21:00)
[2017-08-29] MEDS: LACTULOSE SYRUP 20 GM/30 ML CUP PO SCH ×2 (08:52→21:24)
[2017-08-29] MEDS: SERTRALINE HCL 100 MG TAB PO SCH (08:52)
[2017-08-29] MEDS: SODIUM CHLORIDE 0.9% FLUSH 10 ML FLUSH IV FLUSH SCH ×2 (08:53→21:23)
[2017-08-29] MEDS: levETIRAcetam 500 MG TAB PO SCH ×2 (08:56→21:23)
[2017-08-29 09:13] LABS: AUTOMATED NEUTROPHIL # 2.1 TH/MM3 (1.8-7.7); BASOPHIL % 0.4 % (0.0-2.0); EOSINOPHIL % 0.9 % (0.0-4.0); HEMATOCRIT 35.7 % (39.0-51.0); HEMOGLOBIN 12.4 GM/DL (13.0-17.0); LYMPH % 48.5 % (9.0-44.0); LYMPHOCYTE # 2.5 TH/MM3 (1.0-4.8); MEAN CELL VOLUME 87.9 FL (80.0-100.0); MEAN CORPUSCULAR HEMOGLOBIN 30.6 PG (27.0-34.0); MEAN CORPUSCULAR HGB CONC 34.8 % (32.0-36.0); MONO % 8.9 % (0.0-8.0); MONOCYTE # 0.5 TH/MM3 (0-0.9); NEUT % 41.3 % (16.0-70.0); PLATELET COUNT 80 TH/MM3 (150-450); RED BLOOD COUNT 4.06 MIL/MM3 (4.50-5.90); RED CELL DISTRIBUTION WIDTH 13.6 % (11.6-17.2); WHITE BLOOD COUNT 5.1 TH/MM3 (4.0-11.0)
[2017-08-29 09:30] LABS: ALBUMIN 3.1 GM/DL (3.4-5.0); ALKALINE PHOSPHATASE 59 U/L (45-117); ALT (GPT) 27 U/L (12-78); AST (GOT) 71 U/L (15-37); BICARBONATE 28.9 MEQ/L (21.0-32.0); BLOOD UREA NITROGEN 9 MG/DL (7-18); CALCIUM 8.2 MG/DL (8.5-10.1); CHLORIDE 102 MEQ/L (98-107); CREATININE 0.93 MG/DL (0.60-1.30); GLOMERULAR FILTRATION RATE 82 ML/MIN (>89); GLUCOSE,RANDOM 77 MG/DL (74-106); SODIUM (NA) 140 MEQ/L (136-145); TOTAL BILIRUBIN ADULT 0.7 MG/DL (0.2-1.0); TOTAL PROTEIN 7.7 GM/DL (6.4-8.2)
--- NOTE | 2017-08-29 09:33 | HHI.PR ---
Subjective Remarks Patient seen and examined this morning. Vitals are stable and the patient is afebrile. Sleeping in bed, awakens easily. States his name, knows hes in the hospital. Breathing okay. Thinks he's here because he had a seizure. Objective Vital Signs Date Time Temp Pulse Resp B/P (MAP) Pulse Ox O2 Delivery O2 Flow Rate FiO2 08/29/17 08:00 98.2 63 18 147/78 (101) 92 08/29/17 04:11 97.1 72 20 140/87 (104) 92 08/29/17 00:51 99.4 69 22 152/75 (100) 96 08/28/17 21:19 98.2 67 22 170/93 (118) 94 08/28/17 21:06 08/28/17 17:20 61 18 153/77 (102) 96 Room Air 08/28/17 13:33 16 98 Room Air 08/28/17 10:00 64 16 141/87 (105) 98 Room Air Result Diagram: 08/28/17 1443 08/28/17 1443 Imaging Last Impressions Head CT 08/28/17 0000 Signed Impressions: Service Date/Time: Monday, August 28, 2017 06:05 - CONCLUSION: 1. No acute intracranial hemorrhage. 2. Stable diffuse bilateral cortical atrophy. 3. No significant change compared to the prior exam. Wade Butler MD Cervical Spine CT 08/28/17 0000 Signed Impressions: Service Date/Time: Monday, August 28, 2017 06:08 - CONCLUSION: 1. No acute bony fracture. 2. Stable diffuse primary degenerative changes involving the cervical spine. 3. No new or significant changes. Wade Butler MD Objective Remarks GENERAL: sleeping, confused, stooled himself, in wrist restraints SKIN: Warm and dry. HEAD: Normocephalic. EYES: No scleral icterus. No injection or drainage. NECK: Supple, trachea midline. CARDIOVASCULAR: warm and well perfused RESPIRATORY: Breath sounds equal bilaterally. No accessory muscle use. GASTROINTESTINAL: Abdomen soft, non-tender, nondistended. MUSCULOSKELETAL: No cyanosis, or edema. A/P Problem List: (1) Hyperammonemia ICD Code: E72.20 - Disorder of urea cycle metabolism, unspecified (2) Thrombocytopenia ICD Code: D69.6 - Thrombocytopenia Status: Acute (3) Mood disorder ICD Code: F39 - Unspecified mood [affective] disorder Status: Acute (4) Altered mental status ICD Code: R41.82 - Altered mental status, unspecified Status: Acute Assessment and Plan In summary this is a 62-year-old male patient of an VALE who was [facility] for aggressive behavior and altered mental status. The patient's medical history significant for bipolar disorder, seizure disorder, gout, chronic back pain, COPD, hypertension, hep B and C, and dyslipidemia. In the ER the patient was combative and attempted to urinate on himself. He received multiple doses of Benadryl, Haldol, and Ativan. The ED attempted to discharge the patient back to his [facility], but then refused to take the patient back because of his aggressive behavior. AMS/Behavioral Disturbance - appears to be worse than baseline? - CT head negative - elevated ammonia on admission, s/p lactulose - psych consulted - currently under Avelar Act - Sitter present HypoK - repleate - check Mg level Thrombocytopenia - chronic, at baseline Seizure disorder - cont depakote & keppra DVT prophy with heparin Discharge Planning replease Shai CM to assist with getting him back to his SNF Jael Haney MD Aug 29, 2017 09:33
[2017-08-29] MEDS ORDERED: POTASSIUM CHLORIDE 10 MEQ CONTROLLED RELEASE TAB PO ONE (11:30)
[2017-08-29] MEDS: POTASSIUM CHLOR 20 MEQ PREMIX 100 ML IV SCH (13:03)
[2017-08-29 16:00] VITALS: BP 184/86; PULSE 73; RESP 18; TEMP 98.1; O2SAT 94
--- NOTE | 2017-08-29 17:51 | PD.PSY.CON ---
Provisional Diagnosis Admission Date Aug 28, 2017 at 16:36 [place]. Delirium History of Present Illness Service Psychiatry Consult Requested By Dr. Navarrete Reason for Consult Patient threatening to throw self on floor and refusing medications Primary Care Physician [facility] HPI 66-year-old man, domiciled an assisted living facility for the past 2 months that in the [place], unemployed, with a past psychiatric history of bipolar disorder as per chart, PTSD, with previous psychiatric admission ( [facility] May 2017), one remote suicide attempt, connected to outpatient psychiatric services through the [place] [facility] with Dr. Geoffrey grayson, with past substance use history of alcohol and cocaine use with a past medical history significant for seizure disorder, hyperlipidemia, cirrhosis, COPD, hep C, hep B , chronic pancreatitis and was admitted to the medical floor for hyperammonemia , hypokalemia which upon admission to the ED was noted to be progressively staff which she required ETO in restraints which psychiatry was consulted for evaluation. Patient currently under Avelar act due to having had aggressive behavior at residence but had fallen and hit his head. Patient was noted to be aggressive in the ER but since admission to the medical floor has been put on one-to-one observation with sitter, in 2 point restraints. Discussion she staff reported the patient had not been aggressive today, discussion with sitter reports patient has been compliant and not noted any aggressive or threatening behavior either. Patient was found lying in hospital bed, cooperative. Patient states that he has not been feeling good stating that he has pain "everywhere" referring to his back and his arms along with his hip. He mentions that he had what he believed was a seizure at home stated that he has had previous seizures and strokes in the past. Patient states he does not recall events prior to his admission to the hospital nor does he recall having been aggressive with staff on his route to the ER either. Patient at this time is alert and oriented to person place and date, noted to be engaging in interview and organized thought process and answering questions appropriately. She reports these have had difficulty with sleep lately but that his mood is "okay". Patient denies any suicidal homicidal ideations, denies any perceptual disturbances or delusions at this time. Past psychiatric history: Patient with previous psychiatric diagnoses of bipolar disorder chart, depression, PTSD, previous psychiatric consultation here at [facility] in May 2017, one remote suicide attempt. Patient has outpatient provider Dr. Geoffrey Clement at the [facility]. Substance use history: Patient reports alcohol use in partial remission last time having drank in June 2017, patient reports remote history of cocaine use. Patient denies use of any other substance. 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 Past Family Social History Coded Allergies: No Known Allergies (Verified , 11/13/16) Per patient. Active Scripts Trazodone (Trazodone) 100 Mg Tablet, 100 MG PO 2 po hs for health, #60 TAB 0 Refills Prov:Eder Pina MD 06/22/17 Fludrocortisone (Fludrocortisone) 0.1 Mg Tab, 0.1 MG PO DAILY for health, #30 TAB 0 Refills Prov:Eder Pina MD 06/22/17 Lactobacillus Acidophilus (Lactobacillus Acidophilus) 1 Tab Tab, 1 TAB PO TIDAC for Nutritional Supplement, #30 TAB 0 Refills Prov:Danny Mitchell MD 11/22/16 Levetiracetam (Keppra) 500 Mg Tab, 1500 MG PO Q12HR for Seizure Control, #62 TAB Prov:Danny Mitchell MD 11/22/16 Divalproex ER (Depakote ER) 500 Mg Bassam, 1000 MG PO HS for Seizure Control, # 30 TAB Prov:Danny Mitchell MD 11/22/16 Reported Medications Sertraline (Sertraline) 100 Mg Tab, 200 MG PO DAILY, #30 TAB 0 Refills 08/28/17 Quetiapine (Quetiapine) 25 Mg Tab, 25 MG PO HS, #30 TAB 0 Refills 08/28/17 Hydroxyzine HCl (Hydroxyzine HCl) 50 Mg Tab, 50 MG PO Q6HR Y for ANXIETY, TAB 0 Refills 08/28/17 Calcium Carbonate-Cholecalciferol (Calcium + D3) 600-200 Mg-Unit Tab, 1 TAB PO BID, TAB 09/04/16 Discontinued Reported Medications Albuterol 18 GM Inh (Ventolin Hfa 18 GM Inh) 90 Mcg/Act Aer, 2 PUFF INH Q4-6H Y for SHORTNESS OF BREATH, #1 INHALER 0 Refills 09/04/16 Sodium Chloride Nasal Inh (Nasal Mist Inh) 0.9 % Aer, 1 SPRAY EACH NARE Q4H Y for NASAL CONGESTION, #1 INHALER 0 Refills 09/04/16 Discontinued Scripts Sennosides-Docusate Sodium (Senna Plus 8.6-50 mg) 8.6 Mg-50 Mg Tab, 1 TAB PO BID for health, #60 TAB 0 Refills Prov:Eder Pina MD 06/22/17 Calcium/Vitamin D (Oyster Shell 250 mg + Vit D Tb) 250 Mg Calcium (625 Mg)-125 Unit Tablet, 500 MG PO BID for health, #60 MG 0 Refills Prov:Eder Pina MD 06/22/17 Current Medications Medications (Trade) Dose Ordered Sig/Teja Route Start Time Stop Time Status Last Admin (Lactulose Liq) 30 ml BID PO 08/28/17 21:00 08/29/17 08:52 (NS Flush) 2 ml UNSCH PRN IV FLUSH 08/28/17 17:00 (NS Flush) 2 ml BID IV FLUSH 08/28/17 21:00 08/29/17 08:53 (Zofran Inj) 4 mg Q6H PRN IVP 08/28/17 17:00 (Heparin Inj) 5,000 units Q12H SQ 08/28/17 18:00 08/28/17 19:24 (Narcan Inj) 0.4 mg UNSCH PRN IV PUSH 08/28/17 17:00 (Leanne-Colace) 1 tab BID PO 08/28/17 21:00 08/29/17 08:52 (Milk Of Magnesia Liq) 30 ml Q12H PRN PO 08/28/17 17:00 (Senokot) 17.2 mg Q12H PRN PO 08/28/17 17:00 (Dulcolax Supp) 10 mg DAILY PRN RECTAL 08/28/17 17:00 (Lactulose Liq) 30 ml DAILY PRN PO 08/28/17 17:00 (Depakote Er) 1,000 mg HS PO 08/28/17 21:00 08/28/17 22:09 (Atarax) 50 mg Q6HR PRN PO 08/28/17 17:15 (Keppra) 1,500 mg Q12HR PO 08/28/17 21:00 08/29/17 08:56 (SEROquel) 25 mg HS PO 08/28/17 21:00 08/28/17 22:08 (Zoloft) 200 mg DAILY PO 08/29/17 09:00 08/29/17 08:52 (Desyrel) 200 mg HS PO 08/28/17 21:00 08/28/17 22:08 Physical Exam Vital Signs Vital Signs Date Time Temp Pulse Resp B/P (MAP) Pulse Ox O2 Delivery O2 Flow Rate FiO2 08/29/17 16:00 98.1 73 18 184/86 (118) 94 08/28/17 17:20 Room Air I/O 08/29/17 08/29/17 08/29/17 07:59 15:59 23:59 Intake Total 960 ml Output Total 200 ml Balance 960 ml -200 ml Lab Results Test 08/29/17 08:23 White Blood Count 5.1 TH/MM3 Red Blood Count 4.06 MIL/MM3 Hemoglobin 12.4 GM/DL Hematocrit 35.7 % Mean Corpuscular Volume 87.9 FL Mean Corpuscular Hemoglobin 30.6 PG Mean Corpuscular Hemoglobin Concent 34.8 % Red Cell Distribution Width 13.6 % Platelet Count 80 TH/MM3 Mean Platelet Volume 9.0 FL Neutrophils (%) (Auto) 41.3 % Lymphocytes (%) (Auto) 48.5 % Monocytes (%) (Auto) 8.9 % Eosinophils (%) (Auto) 0.9 % Basophils (%) (Auto) 0.4 % Neutrophils # (Auto) 2.1 TH/MM3 Lymphocytes # (Auto) 2.5 TH/MM3 Monocytes # (Auto) 0.5 TH/MM3 Eosinophils # (Auto) 0.0 TH/MM3 Basophils # (Auto) 0.0 TH/MM3 CBC Comment AUTO DIFF Differential Comment AUTO DIFF CONFIRMED Platelet Estimate LOW Platelet Morphology Comment NORMAL Blood Urea Nitrogen 9 MG/DL Creatinine 0.93 MG/DL Random Glucose 77 MG/DL Total Protein 7.7 GM/DL Albumin 3.1 GM/DL Calcium Level 8.2 MG/DL Alkaline Phosphatase 59 U/L Aspartate Amino Transf (AST/SGOT) 71 U/L Alanine Aminotransferase (ALT/SGPT) 27 U/L Total Bilirubin 0.7 MG/DL Sodium Level 140 MEQ/L Potassium Level 2.7 MEQ/L Chloride Level 102 MEQ/L Carbon Dioxide Level 28.9 MEQ/L Anion Gap 9 MEQ/L Estimat Glomerular Filtration Rate 82 ML/MIN Ammonia 52 MCMOL/L Mental Status Examination Appearance: Appropriate Consciousness: Alert Orientation: Person, Place, Date/Time Motor Activity: Normal gait Speech: Unremarkable Language: Adequate Fund of Knowledge: Inadequate Attention and Concentration: Adequate Memory: Impaired Mood: Appropriate Affect: Appropriate Thought Process & Associations: Intact, Linear Thought Content: Appropriate Hallucination Type: None Delusion Type: None Suicidal Ideation: No Suicidal Plan: No Suicidal Intention: No Homicidal Ideation: No Homicidal Plan: No Homicidal Intention: No Insight: Fair Judgment: Impulsive Assessment & Plan Problem List: (1) Delirium due to another medical condition ICD Codes: F05 - Delirium due to known physiological condition (2) Hyperammonemia ICD Codes: E72.20 - Disorder of urea cycle metabolism, unspecified Assessment & Plan Patient is a 66-year-old man, domiciled an assisted living facility for the past 2 months that in the [place], unemployed, with a past psychiatric history of bipolar disorder as per chart, PTSD, with previous psychiatric admission ([place] May 2017), one remote suicide attempt, connected to outpatient psychiatric services through the [place] clinic with Dr. Geoffrey grayson, with past substance use history of alcohol and cocaine use with a past medical history significant for seizure disorder, hyperlipidemia, cirrhosis, COPD, hep C , hep B, chronic pancreatitis and was admitted to the medical floor for hyperammonemia, hypokalemia which upon admission to the ED was noted to be progressively staff which she required ETO in restraints which psychiatry was consulted for evaluation. Patient currently under Avelar act for recent aggressive behavior at [facility]. Patient recent aggressive behavior and agitation likely secondary to delirium due to metabolic derangements. Patient required subsequent ETO's and as per report from nursing and one-to-one sitter patient has been calm and cooperative. Patient during interview now more alert and oriented, agreed to continue treatment which includes medications and wanted to increase his nutritional intake. May increase quetiapine 100 mg by mouth at bedtime to assist with sleep disturbance but may need to continue monitoring ammonia level and LFTs. I will lift Avelar act at this time as he has not had continued agitation or behavior issue that would require inpatient psychiatric hospitalization at this time. Patient to continue medical management as per medical team. Consult appreciated. Quinton Sam MD Aug 29, 2017 17:51
[2017-08-29 20:00] VITALS: BP 168/99; PULSE 76; RESP 17; TEMP 97.7; O2SAT 95
[2017-08-29] MEDS: traZODone HCL 100 MG TAB PO SCH (21:24)
[2017-08-29] MEDS: QUEtiapine FUMARATE 25 MG TAB PO SCH (21:24)
[2017-08-29] MEDS: DIVALPROEX SODIUM E.R. 500 MG TAB PO SCH (21:24)
[2017-08-30] VITALS (7 sets, daily range): BP systolic 130–192; BP diastolic 71–109; PULSE 51–73; RESP 17–20; TEMP 97.5–99.6; O2SAT 93–96
[2017-08-30] MEDS: POTASSIUM CHLOR 20 MEQ PREMIX 100 ML IV SCH (02:23)
[2017-08-30] MEDS: HEPARIN SODIUM - SQ 10,000 UNITS/ML VIAL SQ SCH ×2 (05:32→17:46)
--- NOTE | 2017-08-30 08:05 | EKG ---
Date Performed: 08/28/2017 Time Performed: 12:54:09 PTAGE: 62 years EKG: Sinus rhythm Diffuse ST T abnormalities more prominent since the prior tracing Clinical correlation is needed ABN ORMAL ECG PREVIOUS TRACING : 06/12/2017 17.30 DOCTOR: Denzel Singh Interpretating Date/Time 08/30/2017 08:04:38
[2017-08-30 08:52] LABS: BICARBONATE 29.5 MEQ/L (21.0-32.0); CALCIUM 8.2 MG/DL (8.5-10.1); CREATININE 0.83 MG/DL (0.60-1.30)
--- NOTE | 2017-08-30 09:41 | HHI.PR ---
Subjective Remarks Patient seen and examined this morning. Vitals are stable and the patient is afebrile. He is without complaints or concerns. Reports he smokes cigarettes. States hes okay to go tomorrow. Objective Vital Signs Date Time Temp Pulse Resp B/P (MAP) Pulse Ox O2 Delivery O2 Flow Rate FiO2 08/30/17 08:28 98.3 57 17 146/71 (96) 94 08/30/17 04:00 97.5 58 17 130/84 (99) 94 08/30/17 00:00 98.4 63 18 151/75 (100) 93 08/29/17 20:00 97.7 76 17 168/99 (122) 95 08/29/17 16:00 98.1 73 18 184/86 (118) 94 I/O 08/29/17 08/29/17 08/29/17 08/30/17 08/30/17 08/30/17 07:00 15:00 23:00 07:00 15:00 23:00 Intake Total 960 ml Output Total 200 ml Balance 960 ml -200 ml Intake Oral 960 ml Output Urine Total 200 ml # Voids 2 0 1 # Bowel Movements 1 0 0 Result Diagram: 08/29/17 0823 08/30/17 0746 Imaging Last Impressions Head CT 08/28/17 0000 Signed Impressions: Service Date/Time: Monday, August 28, 2017 06:05 - CONCLUSION: 1. No acute intracranial hemorrhage. 2. Stable diffuse bilateral cortical atrophy. 3. No significant change compared to the prior exam. Wade Butler MD Cervical Spine CT 08/28/17 0000 Signed Impressions: Service Date/Time: Monday, August 28, 2017 06:08 - CONCLUSION: 1. No acute bony fracture. 2. Stable diffuse primary degenerative changes involving the cervical spine. 3. No new or significant changes. Wade Butler MD Objective Remarks GENERAL: sitting up in bed, nad SKIN: Warm and dry. HEAD: Normocephalic. EYES: No scleral icterus. No injection or drainage. NECK: Supple, trachea midline. CARDIOVASCULAR: warm and well perfused RESPIRATORY: coarse breath sounds on auscultation, with bilat wheezing GASTROINTESTINAL: Abdomen soft, non-tender, nondistended. MUSCULOSKELETAL: No cyanosis, or edema. A/P Problem List: (1) Hyperammonemia ICD Code: E72.20 - Disorder of urea cycle metabolism, unspecified (2) Thrombocytopenia ICD Code: D69.6 - Thrombocytopenia Status: Acute (3) Mood disorder ICD Code: F39 - Unspecified mood [affective] disorder Status: Acute (4) Altered mental status ICD Code: R41.82 - Altered mental status, unspecified Status: Acute Assessment and Plan In summary this is a 62-year-old male patient of an [facility] who was sent from his [facility] for aggressive behavior and altered mental status. The patient's medical history significant for bipolar disorder, seizure disorder, gout, chronic back pain, COPD, hypertension, hep B and C, and dyslipidemia. In the ER the patient was combative and attempted to urinate on himself. He received multiple doses of Benadryl, Haldol, and Ativan. The ED attempted to discharge the patient back to his SNF, but then refused to take the patient back because of his aggressive behavior. Clinically stable and improved mental status. AMS/Behavioral Disturbance - improving - CT head negative - elevated ammonia on admission, continues to improve with lactulose - psych consulted: jerel act lifted, increase quetiapine to 75 mg PO HD HypoK - replete - check Mg level Thrombocytopenia - chronic, at baseline Seizure disorder - cont depakote & keppra COPD exacerbation - prednisone 20 mg PO BID - duonebs paula DVT prophy with heparin Discharge Planning replete K CM to assist with getting him back to his SNF, d/c tomorrow Jael Haney MD Aug 30, 2017 09:41
[2017-08-30] MEDS: SODIUM CHLORIDE 0.9% FLUSH 10 ML FLUSH IV FLUSH SCH ×2 (09:45→21:00)
[2017-08-30] MEDS ORDERED: POTASSIUM CHLORIDE 10 MEQ CONTROLLED RELEASE TAB PO ONE (09:45)
[2017-08-30] MEDS: SERTRALINE HCL 100 MG TAB PO SCH (09:46)
[2017-08-30] MEDS: LACTULOSE SYRUP 20 GM/30 ML CUP PO SCH ×2 (09:46→21:14)
[2017-08-30] MEDS: DOCUSATE SODIUM 50 MG/SENNA 8.6 MG TAB PO SCH ×2 (09:46→21:00)
[2017-08-30] MEDS: levETIRAcetam 500 MG TAB PO SCH ×2 (09:46→21:15)
[2017-08-30] MEDS: POTASSIUM CHLOR 10 MEQ PREMIX 100 ML IV SCH ×4 (10:30→12:45)
[2017-08-30] MEDS: predniSONE 20 MG TAB PO SCH ×2 (12:17→21:15)
[2017-08-30] MEDS: RESP: ALBUTEROL 1.25 MG/3 ML NEB (SCH) NEB ×2 (16:07→20:39)
[2017-08-30] MEDS: cloNIDine HCL 0.1 MG TAB PO PRN (17:43)
[2017-08-30] MEDS: QUEtiapine FUMARATE 25 MG TAB PO SCH (21:14)
[2017-08-30] MEDS: DIVALPROEX SODIUM E.R. 500 MG TAB PO SCH (21:15)
[2017-08-30] MEDS: traZODone HCL 100 MG TAB PO SCH (21:15)
[2017-08-31] VITALS (8 sets, daily range): BP systolic 127–171; BP diastolic 62–88; PULSE 47–71; RESP 17–18; TEMP 97.4–98; O2SAT 93–97
[2017-08-31] MEDS: RESP: ALBUTEROL 1.25 MG/3 ML NEB (SCH) NEB ×4 (02:52→22:26)
[2017-08-31] MEDS: HEPARIN SODIUM - SQ 10,000 UNITS/ML VIAL SQ SCH ×2 (06:16→17:58)
[2017-08-31] MEDS: levETIRAcetam 500 MG TAB PO SCH ×2 (08:55→22:23)
[2017-08-31] MEDS: LACTULOSE SYRUP 20 GM/30 ML CUP PO SCH ×2 (08:55→21:00)
[2017-08-31] MEDS: DOCUSATE SODIUM 50 MG/SENNA 8.6 MG TAB PO SCH ×2 (08:55→22:23)
[2017-08-31] MEDS: SERTRALINE HCL 100 MG TAB PO SCH (08:55)
[2017-08-31] MEDS: predniSONE 20 MG TAB PO SCH ×2 (08:55→22:23)
[2017-08-31] MEDS: SODIUM CHLORIDE 0.9% FLUSH 10 ML FLUSH IV FLUSH SCH ×3 (08:55→22:24)
[2017-08-31] MEDS ORDERED: PRED10PA PO (12:16)
[2017-08-31] MEDS ORDERED: QUET1TAB7 PO (12:16)
--- NOTE | 2017-08-31 12:20 | HHI.DS ---
Discharge Summary Admission Date Aug 28, 2017 at 16:36 Discharge Date: Aug 31, 2017 Admitting Diagnosis hypokalemia/hyperammonemia/altered mental status/BA (1) Encephalopathy ICD Code: G93.40 - Encephalopathy Status: Acute (2) Alcohol-induced mood disorder ICD Code: F10.94 - Alcohol use, unspecified with alcohol-induced mood disorder Status: Acute (3) Debility ICD Code: R53.81 - Other malaise (4) COPD (chronic obstructive pulmonary disease) ICD Code: J44.9 - COPD (chronic obstructive pulmonary disease) Status: Chronic Procedures None Brief History - From Admission History of present illness from the admitting physician 62-year-old male with a past medical history significant for bipolar disorder, seizure disorder, gout, chronic low back pain, COPD, hypertension, chronic alcoholic pancreatitis, hepatitis B and C, dyslipidemia and a history of alcohol abuse was brought to the emergency department by EMS for evaluation of altered mental status, behavioral disturbances and witnessed fall. Patient reportedly was aggressive and combative and his [facility] and fell, hitting his head. In the emergency department he was aggressive and erratic attempting to urinate on staff. He was given multiple doses of Benadryl, Haldol and Ativan. The ED attempted to discharge the patient back to his [facility] who reported that they would not accept him back secondary to his aggressive behavior. They also stated that the patient was witnessed to have said that he was going to continue to "throw himself on the floor on purpose." At the time of her interview, the patient refuses to answer any questions. He is lying in bed and will only yell "I do not want any medication." Vital signs on presentation: Temperature 98.9, pulse 66, respirations 18, BP 151/97, pulse ox 94% on room air. Patient has multiple metabolic derangements including a potassium of 2.4 and an ammonia of 61. Head CT negative for acute process. CBC/BMP: 08/29/17 0823 08/30/17 0746 Significant Findings Laboratory Tests Test 08/28/17 14:43 08/29/17 08:23 08/29/17 21:42 08/30/17 04:36 Red Blood Count 4.29 MIL/MM3 (4.50-5.90) 4.06 MIL/MM3 (4.50-5.90) Hemoglobin 12.9 GM/DL (13.0-17.0) 12.4 GM/DL (13.0-17.0) Hematocrit 37.1 % (39.0-51.0) 35.7 % (39.0-51.0) Platelet Count 86 TH/MM3 (150-450) 80 TH/MM3 (150-450) Monocytes (%) (Auto) 10.4 % (0.0-8.0) 8.9 % (0.0-8.0) Blood Urea Nitrogen 5 MG/DL (7-18) Albumin 3.3 GM/DL (3.4-5.0) 3.1 GM/DL (3.4-5.0) Calcium Level 8.0 MG/DL (8.5-10.1) 8.2 MG/DL (8.5-10.1) Aspartate Amino Transf (AST/SGOT) 57 U/L (15-37) 71 U/L (15-37) Potassium Level 2.4 MEQ/L (3.5-5.1) 2.7 MEQ/L (3.5-5.1) 3.0 MEQ/L (3.5-5.1) Carbon Dioxide Level 33.8 MEQ/L (21.0-32.0) Anion Gap 4 MEQ/L (5-15) Estimat Glomerular Filtration Rate 86 ML/MIN (>89) 82 ML/MIN (>89) Ammonia 61 MCMOL/L (11-32) 52 MCMOL/L (11-32) Lymphocytes (%) (Auto) 48.5 % (9.0-44.0) Platelet Estimate LOW (NORMAL) Test 08/30/17 07:46 Calcium Level 8.2 MG/DL (8.5-10.1) Potassium Level 3.3 MEQ/L (3.5-5.1) Ammonia 46 MCMOL/L (11-32) Imaging Last Impressions Head CT 08/28/17 0000 Signed Impressions: Service Date/Time: Monday, August 28, 2017 06:05 - CONCLUSION: 1. No acute intracranial hemorrhage. 2. Stable diffuse bilateral cortical atrophy. 3. No significant change compared to the prior exam. Wade Butler MD Cervical Spine CT 08/28/17 0000 Signed Impressions: Service Date/Time: Monday, August 28, 2017 06:08 - CONCLUSION: 1. No acute bony fracture. 2. Stable diffuse primary degenerative changes involving the cervical spine. 3. No new or significant changes. Wade Butler MD PE at Discharge GENERAL: Patient appear older than stated age. Frail CARDIOVASCULAR: Normal rate and regular rhythm without murmurs, gallops, or rubs. RESPIRATORY: Good respiratory efforts. Breath sounds equal and clear to auscultation bilaterally. GASTROINTESTINAL: Abdomen soft, non-tender, non-distended. Normal active bowel sounds MUSCULOSKELETAL: Extremities without cyanosis, or edema. NEURO: Alert & Oriented x4 to person, place, time, situation. Moves all ext x4. Generalized weakness PSYCH: Calm Pt update on day of discharge Patient reports he is feeling okay except for generalized weakness. He is agreeable to SNF placement for continuing rehabilitation. Hospital Course 62-year-old male patient of an [facility] who was sent from his [facility] for aggressive behavior and altered mental status. The patient's medical history significant for bipolar disorder, seizure disorder, gout, chronic back pain, COPD, hypertension, hep B and C, and dyslipidemia. In the ER the patient was combative and attempted to urinate on himself. He received multiple doses of Benadryl, Haldol, and Ativan. The ED attempted to discharge the patient back to his [facility], but then refused to take the patient back because of his aggressive behavior. The patient was admitted and treated for encephalopathy and behavioral disturbances. Psychiatry was consulted who lifted the Avelar act and increased the patient's Seroquel. His mental status much improved. He has the ability likely secondary to chronic alcohol abuse and needs further rehabilitation to get stronger before he can return home. Other conditions treated include: Thrombocytopenia - chronic, at baseline Seizure disorder - cont depakote & keppra COPD exacerbation -Patient was treated with steroids and breathing treatment. His respiratory status returned to baseline. Pt Condition on Discharge: Good Discharge Disposition: Discharge to SNF Discharge Time: > 30 minutes Discharge Instructions DIET: Follow Instructions for: As Tolerated, No Restrictions Activities you can perform: Regular-No Restrictions Other Activity Instructions: Use assistive device and help her PT recommendations. New Medications: Multiple Vitamin (Multi-Vitamin Daily) 1 Tab Tab 1 TAB PO DAILY for Nutritional Supplement, #30 TAB 0 Refills Prednisone (21) 10 mg tab Dose Pack (Prednisone (21) 10 mg tab Dose Pack) 10 Mg Pack 10 MG PO DIRECTED for Inflammation, #1 DSPK 0 Refills [Lactulose Liq] () 30 ML SYRP 30 ML PO BID for 30 Days Changed Medications: Quetiapine (Quetiapine) 25 Mg Tab 75 MG PO HS, #90 TAB 0 Refills (Changed from: 25 MG; 30) Continued Medications: Calcium Carbonate-Cholecalciferol (Calcium + D3) 600-200 Mg-Unit Tab 1 TAB PO BID, TAB Divalproex ER (Depakote ER) 500 Mg Bassam 1000 MG PO HS for Seizure Control, #30 TAB Hydroxyzine HCl (Hydroxyzine HCl) 50 Mg Tab 50 MG PO Q6HR PRN for ANXIETY, TAB 0 Refills Lactobacillus Acidophilus (Lactobacillus Acidophilus) 1 Tab Tab 1 TAB PO TIDAC for Nutritional Supplement, #30 TAB 0 Refills Levetiracetam (Keppra) 500 Mg Tab 1500 MG PO Q12HR for Seizure Control, #62 TAB Sertraline (Sertraline) 100 Mg Tab 200 MG PO DAILY, #30 TAB 0 Refills Trazodone (Trazodone) 100 Mg Tablet 100 MG PO 2 po hs for health, #60 TAB 0 Refills Discontinued Medications: Fludrocortisone (Fludrocortisone) 0.1 Mg Tab 0.1 MG PO DAILY for health, #30 TAB 0 Refills Melanie Velasco MD Aug 31, 2017 12:20
[2017-08-31 14:52] LABS: BICARBONATE 23.4 MEQ/L (21.0-32.0); CALCIUM 9.5 MG/DL (8.5-10.1); CREATININE 0.86 MG/DL (0.60-1.30)
[2017-08-31] MEDS ORDERED: Lactulose Liq PO (15:57)
[2017-08-31] MEDS ORDERED: MULT-65 PO (15:57)
[2017-08-31] MEDS: QUEtiapine FUMARATE 25 MG TAB PO SCH (22:22)
[2017-08-31] MEDS: DIVALPROEX SODIUM E.R. 500 MG TAB PO SCH (22:22)
[2017-08-31] MEDS: traZODone HCL 100 MG TAB PO SCH (22:23)
[2017-09-01] VITALS (8 sets, daily range): BP systolic 122–152; BP diastolic 64–80; PULSE 52–66; RESP 18; TEMP 97.5–98.6; O2SAT 93–98
[2017-09-01] MEDS: RESP: ALBUTEROL 1.25 MG/3 ML NEB (SCH) NEB ×4 (03:33→20:03)
[2017-09-01] MEDS: HEPARIN SODIUM - SQ 10,000 UNITS/ML VIAL SQ SCH ×2 (06:13→17:05)
[2017-09-01] MEDS: DOCUSATE SODIUM 50 MG/SENNA 8.6 MG TAB PO SCH ×2 (08:18→22:47)
[2017-09-01] MEDS: levETIRAcetam 500 MG TAB PO SCH ×2 (08:18→22:46)
[2017-09-01] MEDS: SERTRALINE HCL 100 MG TAB PO SCH (08:18)
[2017-09-01] MEDS: SODIUM CHLORIDE 0.9% FLUSH 10 ML FLUSH IV FLUSH SCH ×2 (08:18→22:48)
[2017-09-01] MEDS: LACTULOSE SYRUP 20 GM/30 ML CUP PO SCH ×2 (08:18→21:00)
[2017-09-01] MEDS: predniSONE 20 MG TAB PO SCH ×2 (08:18→22:47)
--- NOTE | 2017-09-01 11:54 | HHI.PR ---
Subjective Remarks Patient discharged yesterday. Awaiting placement. Case management following. He denies any new issues. Objective Vitals Vital Signs Date Time Temp Pulse Resp B/P (MAP) Pulse Ox O2 Delivery O2 Flow Rate FiO2 09/01/17 09:25 93 09/01/17 08:00 98.1 52 18 141/73 (95) 98 09/01/17 06:23 98.0 53 18 152/80 (104) 96 09/01/17 01:01 97.5 58 18 150/72 (98) 97 08/31/17 22:29 97 08/31/17 20:57 97.4 71 18 135/76 (95) 97 08/31/17 16:01 97.4 53 18 159/88 (111) 96 08/31/17 12:15 98.0 59 18 127/62 (83) 93 I/O 08/31/17 08/31/17 08/31/17 09/01/17 09/01/17 09/01/17 07:00 15:00 23:00 07:00 15:00 23:00 Intake Total 240 ml Balance 240 ml Intake Oral 240 ml # Voids 2 # Bowel Movements 1 Result Diagram: 08/29/17 0823 08/31/17 1335 Objective Remarks GENERAL: Patient appear older than stated age. CARDIOVASCULAR: Normal rate and regular rhythm without murmurs, gallops, or rubs. RESPIRATORY: Good respiratory efforts. Breath sounds equal and clear to auscultation bilaterally. GASTROINTESTINAL: Abdomen soft, non-tender, non-distended. Normal active bowel sounds MUSCULOSKELETAL: Extremities without cyanosis, or edema. NEURO: Alert & Oriented x4 to person, place, time, situation. Moves all ext x4. Generalized weakness PSYCH: Calm Procedures None A/P Problem List: (1) Encephalopathy ICD Code: G93.40 - Encephalopathy Status: Acute (2) Alcohol-induced mood disorder ICD Code: F10.94 - Alcohol use, unspecified with alcohol-induced mood disorder Status: Acute (3) Debility ICD Code: R53.81 - Other malaise (4) COPD (chronic obstructive pulmonary disease) ICD Code: J44.9 - COPD (chronic obstructive pulmonary disease) Status: Chronic Assessment and Plan 62-year-old male patient of an [facility] who was sent from his [facility] for aggressive behavior and altered mental status. The patient's medical history significant for bipolar disorder, seizure disorder, gout, chronic back pain, COPD, hypertension, hep B and C, and dyslipidemia. In the ER the patient was combative and attempted to urinate on himself. He received multiple doses of Benadryl, Haldol, and Ativan. The ED attempted to discharge the patient back to his [facility], but then refused to take the patient back because of his aggressive behavior. The patient was admitted and treated for encephalopathy and behavioral disturbances. Psychiatry was consulted who lifted the Avelar act and increased the patient's Seroquel. His mental status much improved. He has the ability likely secondary to chronic alcohol abuse and needs further rehabilitation to get stronger before he can return home. Other conditions treated include: Thrombocytopenia - chronic, at baseline Seizure disorder - cont depakote & keppra COPD exacerbation -Patient was treated with steroids and breathing treatment. His respiratory status returned to baseline. Patient is medically cleared for discharge Discharge Planning DC to SNF once arrangements are made. Case management following. Melanie Velasco MD Sep 01, 2017 11:54
[2017-09-01] MEDS: DIVALPROEX SODIUM E.R. 500 MG TAB PO SCH (22:47)
[2017-09-01] MEDS: QUEtiapine FUMARATE 25 MG TAB PO SCH (22:47)
[2017-09-01] MEDS: traZODone HCL 100 MG TAB PO SCH (22:47)
[2017-09-02 01:07] VITALS: BP 140/82; PULSE 59; RESP 19; TEMP 98.2; O2SAT 94
[2017-09-02] MEDS: HEPARIN SODIUM - SQ 10,000 UNITS/ML VIAL SQ SCH ×2 (05:07→16:43)
[2017-09-02] MEDS: RESP: ALBUTEROL 1.25 MG/3 ML NEB (SCH) NEB ×4 (05:17→21:46)
[2017-09-02 08:00] VITALS: BP 113/71; PULSE 59; RESP 18; TEMP 97.6; O2SAT 97
[2017-09-02] MEDS: SODIUM CHLORIDE 0.9% FLUSH 10 ML FLUSH IV FLUSH SCH ×2 (09:00→21:26)
[2017-09-02] MEDS: SERTRALINE HCL 100 MG TAB PO SCH (10:08)
[2017-09-02] MEDS: levETIRAcetam 500 MG TAB PO SCH ×2 (10:09→21:22)
[2017-09-02] MEDS: DOCUSATE SODIUM 50 MG/SENNA 8.6 MG TAB PO SCH ×2 (10:09→21:00)
[2017-09-02] MEDS: predniSONE 20 MG TAB PO SCH ×2 (10:09→21:24)
[2017-09-02] MEDS: LACTULOSE SYRUP 20 GM/30 ML CUP PO SCH ×2 (10:09→21:21)
[2017-09-02 10:30] VITALS: O2SAT 95
[2017-09-02 12:00] VITALS: BP 136/76; PULSE 68; RESP 18; TEMP 97.6; O2SAT 98
[2017-09-02 16:00] VITALS: BP 137/84; PULSE 102; RESP 18; TEMP 97.6; O2SAT 94
--- NOTE | 2017-09-02 16:45 | HHI.PR ---
Subjective Remarks Patient reports the shakes are getting better. No complaints. Objective Vitals Vital Signs Date Time Temp Pulse Resp B/P (MAP) Pulse Ox O2 Delivery O2 Flow Rate FiO2 09/02/17 12:00 97.6 68 18 136/76 (96) 98 09/02/17 10:30 95 09/02/17 08:00 97.6 59 18 113/71 (85) 97 09/02/17 01:07 98.2 59 19 140/82 (101) 94 09/01/17 21:00 97.5 59 18 137/80 (99) 97 09/01/17 20:03 96 21 Result Diagram: 08/29/17 0823 08/31/17 1335 Objective Remarks GENERAL: Patient appear older than stated age. CARDIOVASCULAR: Normal rate and regular rhythm without murmurs, gallops, or rubs. RESPIRATORY: Good respiratory efforts. Breath sounds equal and clear to auscultation bilaterally. GASTROINTESTINAL: Abdomen soft, non-tender, non-distended. Normal active bowel sounds MUSCULOSKELETAL: Extremities without cyanosis, or edema. NEURO: Alert & Oriented x4 to person, place, time, situation. Moves all ext x4. Generalized weakness PSYCH: Calm Procedures None A/P Problem List: (1) Encephalopathy ICD Code: G93.40 - Encephalopathy Status: Acute (2) Alcohol-induced mood disorder ICD Code: F10.94 - Alcohol use, unspecified with alcohol-induced mood disorder Status: Acute (3) Debility ICD Code: R53.81 - Other malaise (4) COPD (chronic obstructive pulmonary disease) ICD Code: J44.9 - COPD (chronic obstructive pulmonary disease) Status: Chronic (5) PTSD (post-traumatic stress disorder) ICD Code: F43.10 - Post-traumatic stress disorder, unspecified Assessment and Plan 62-year-old male patient of an [facility] who was sent from his [facility] for aggressive behavior and altered mental status. The patient's medical history significant for bipolar disorder, seizure disorder, gout, chronic back pain, COPD, hypertension, hep B and C, and dyslipidemia. In the ER the patient was combative and attempted to urinate on himself. He received multiple doses of Benadryl, Haldol, and Ativan. The ED attempted to discharge the patient back to his [facility], but then refused to take the patient back because of his aggressive behavior. The patient was admitted and treated for encephalopathy and behavioral disturbances. Psychiatry was consulted who lifted the Avelar act and increased the patient's Seroquel. His mental status much improved. Patient has significant debility likely secondary to chronic alcohol abuse and needs further rehabilitation to get stronger before he can return home. Other conditions treated include: Thrombocytopenia - chronic, at baseline Seizure disorder - cont Depakote & Keppra PTSD/personality disorder: Continue Seroquel. Trazodone at night. Status Post with steroids and breathing treatment. His respiratory status returned to baseline. Patient is medically cleared for discharge Discharge Planning DC to SNF once arrangements are made. Case management following. Melanie Velasco MD Sep 02, 2017 16:45
[2017-09-02 20:06] VITALS: BP 122/81; PULSE 73; RESP 19; TEMP 98.8; O2SAT 97
[2017-09-02] MEDS: traZODone HCL 100 MG TAB PO SCH (21:23)
[2017-09-02] MEDS: DIVALPROEX SODIUM E.R. 500 MG TAB PO SCH (21:25)
[2017-09-02] MEDS: QUEtiapine FUMARATE 25 MG TAB PO SCH (21:25)
[2017-09-02] MEDS: hydrOXYzine HCL 50 MG TAB PO PRN (22:58)
[2017-09-03] VITALS: BP 144/81; PULSE 75; RESP 18; TEMP 97.2; O2SAT 96
[2017-09-03 05:04] VITALS: BP 160/74; PULSE 50; RESP 18; TEMP 98.9; O2SAT 94
[2017-09-03] MEDS: hydrOXYzine HCL 50 MG TAB PO PRN ×2 (06:10→20:42)
[2017-09-03] MEDS: HEPARIN SODIUM - SQ 10,000 UNITS/ML VIAL SQ SCH ×2 (06:11→20:43)
[2017-09-03 08:00] VITALS: BP 124/82; PULSE 76; RESP 18; TEMP 97.6; O2SAT 98
[2017-09-03] MEDS: SODIUM CHLORIDE 0.9% FLUSH 10 ML FLUSH IV FLUSH SCH ×2 (09:00→20:42)
[2017-09-03] MEDS: SERTRALINE HCL 100 MG TAB PO SCH (09:36)
[2017-09-03] MEDS: predniSONE 20 MG TAB PO SCH ×2 (09:36→20:42)
[2017-09-03] MEDS: DOCUSATE SODIUM 50 MG/SENNA 8.6 MG TAB PO SCH ×2 (09:36→20:42)
[2017-09-03] MEDS: LACTULOSE SYRUP 20 GM/30 ML CUP PO SCH ×2 (09:36→20:41)
[2017-09-03] MEDS: levETIRAcetam 500 MG TAB PO SCH ×2 (09:36→20:42)
[2017-09-03] MEDS: RESP: ALBUTEROL 1.25 MG/3 ML NEB (SCH) NEB (10:00)
--- NOTE | 2017-09-03 11:49 | HHI.PR ---
Subjective Remarks No new issues. Patient is medically cleared for discharge. Awaiting placement. Objective Vitals Vital Signs Date Time Temp Pulse Resp B/P (MAP) Pulse Ox O2 Delivery O2 Flow Rate FiO2 09/03/17 08:00 97.6 76 18 124/82 (96) 98 09/03/17 05:04 98.9 50 18 160/74 (102) 94 09/03/17 00:00 97.2 75 18 144/81 (102) 96 09/02/17 20:06 98.8 73 19 122/81 (95) 97 09/02/17 16:00 97.6 102 18 137/84 (101) 94 09/02/17 12:00 97.6 68 18 136/76 (96) 98 I/O 09/02/17 09/02/17 09/02/17 09/03/17 09/03/17 09/03/17 07:00 15:00 23:00 07:00 15:00 23:00 Output Total 850 ml Balance -850 ml Output Urine Total 850 ml # Voids 4 # Bowel Movements 1 Result Diagram: 08/31/17 1335 Objective Remarks GENERAL: Patient appear older than stated age. CARDIOVASCULAR: Normal rate and regular rhythm without murmurs, gallops, or rubs. RESPIRATORY: Good respiratory efforts. Breath sounds equal and clear to auscultation bilaterally. GASTROINTESTINAL: Abdomen soft, non-tender, non-distended. Normal active bowel sounds MUSCULOSKELETAL: Extremities without cyanosis, or edema. NEURO: Alert & Oriented x4 to person, place, time, situation. Moves all ext x4. Generalized weakness PSYCH: Calm Procedures None A/P Problem List: (1) Encephalopathy ICD Code: G93.40 - Encephalopathy Status: Acute (2) Alcohol-induced mood disorder ICD Code: F10.94 - Alcohol use, unspecified with alcohol-induced mood disorder Status: Acute (3) Debility ICD Code: R53.81 - Other malaise (4) COPD (chronic obstructive pulmonary disease) ICD Code: J44.9 - COPD (chronic obstructive pulmonary disease) Status: Chronic (5) PTSD (post-traumatic stress disorder) ICD Code: F43.10 - Post-traumatic stress disorder, unspecified Assessment and Plan 62-year-old male patient of an [facility] who was sent from his [facility] for aggressive behavior and altered mental status. The patient's medical history significant for bipolar disorder, seizure disorder, gout, chronic back pain, COPD, hypertension, hep B and C, and dyslipidemia. In the ER the patient was combative and attempted to urinate on himself. He received multiple doses of Benadryl, Haldol, and Ativan. The ED attempted to discharge the patient back to his [facility], but then refused to take the patient back because of his aggressive behavior. The patient was admitted and treated for encephalopathy and behavioral disturbances. Psychiatry was consulted who lifted the Avelar act and increased the patient's Seroquel. His mental status much improved. Patient has significant debility likely secondary to chronic alcohol abuse and needs further rehabilitation to get stronger before he can return home. Other conditions treated include: Thrombocytopenia - chronic, at baseline Seizure disorder - cont Depakote & Keppra PTSD/personality disorder: Continue Seroquel. Trazodone at night. Seems stable. Status Post with steroids and breathing treatment. His respiratory status returned to baseline. Patient is medically cleared for discharge Discharge Planning DC to SNF once arrangements are made. Case management following. Melanie Velasco MD Sep 03, 2017 11:49
[2017-09-03 20:00] VITALS: BP 153/89; PULSE 61; RESP 18; TEMP 97.2; O2SAT 97
[2017-09-03] MEDS: QUEtiapine FUMARATE 25 MG TAB PO SCH (20:41)
[2017-09-03] MEDS: traZODone HCL 100 MG TAB PO SCH (20:41)
[2017-09-03] MEDS: DIVALPROEX SODIUM E.R. 500 MG TAB PO SCH (20:42)
[2017-09-04] VITALS: BP 153/89; PULSE 61; RESP 18; TEMP 97.2; O2SAT 97
[2017-09-04] MEDS: HEPARIN SODIUM - SQ 10,000 UNITS/ML VIAL SQ SCH ×2 (06:00→18:00)
[2017-09-04 07:59] VITALS: BP 149/75; PULSE 51; RESP 18; TEMP 98.2; O2SAT 97
[2017-09-04] MEDS: SODIUM CHLORIDE 0.9% FLUSH 10 ML FLUSH IV FLUSH SCH ×2 (08:55→20:09)
[2017-09-04] MEDS: SERTRALINE HCL 100 MG TAB PO SCH (08:56)
[2017-09-04] MEDS: levETIRAcetam 500 MG TAB PO SCH ×2 (08:56→20:09)
[2017-09-04] MEDS: LACTULOSE SYRUP 20 GM/30 ML CUP PO SCH ×2 (08:56→20:09)
[2017-09-04] MEDS: DOCUSATE SODIUM 50 MG/SENNA 8.6 MG TAB PO SCH ×2 (08:56→20:09)
[2017-09-04] MEDS: predniSONE 20 MG TAB PO SCH ×2 (08:56→20:09)
--- NOTE | 2017-09-04 10:53 | HHI.PR ---
Subjective Remarks No new medical issues. Patient is medically cleared for discharge. Awaiting placement. Objective Vitals Vital Signs Date Time Temp Pulse Resp B/P (MAP) Pulse Ox O2 Delivery O2 Flow Rate FiO2 09/04/17 07:59 98.2 51 18 149/75 (99) 97 09/04/17 00:00 97.2 61 18 153/89 (110) 97 09/03/17 20:00 97.2 61 18 153/89 (110) 97 I/O 09/03/17 09/03/17 09/03/17 09/04/17 09/04/17 09/04/17 07:00 15:00 23:00 07:00 15:00 23:00 Output Total 850 ml Balance -850 ml Output Urine Total 850 ml # Voids 4 5 # Bowel Movements 1 Result Diagram: 08/31/17 9075 Objective Remarks GENERAL: Patient appear older than stated age. CARDIOVASCULAR: Normal rate and regular rhythm without murmurs, gallops, or rubs. RESPIRATORY: Good respiratory efforts. Breath sounds equal and clear to auscultation bilaterally. GASTROINTESTINAL: Abdomen soft, non-tender, non-distended. Normal active bowel sounds MUSCULOSKELETAL: Extremities without cyanosis, or edema. NEURO: Alert & Oriented x4 to person, place, time, situation. Moves all ext x4. Generalized weakness PSYCH: Calm Procedures None A/P Problem List: (1) Encephalopathy ICD Code: G93.40 - Encephalopathy Status: Acute (2) Alcohol-induced mood disorder ICD Code: F10.94 - Alcohol use, unspecified with alcohol-induced mood disorder Status: Acute (3) Debility ICD Code: R53.81 - Other malaise (4) COPD (chronic obstructive pulmonary disease) ICD Code: J44.9 - COPD (chronic obstructive pulmonary disease) Status: Chronic (5) PTSD (post-traumatic stress disorder) ICD Code: F43.10 - Post-traumatic stress disorder, unspecified Assessment and Plan 62-year-old male patient of an [facility] who was sent from his [facility] for aggressive behavior and altered mental status. The patient's medical history significant for bipolar disorder, seizure disorder, gout, chronic back pain, COPD, hypertension, hep B and C, and dyslipidemia. In the ER the patient was combative and attempted to urinate on himself. He received multiple doses of Benadryl, Haldol, and Ativan. The ED attempted to discharge the patient back to his [facility], but then refused to take the patient back because of his aggressive behavior. The patient was admitted and treated for encephalopathy and behavioral disturbances. Psychiatry was consulted who lifted the Avelar act and increased the patient's Seroquel. His mental status much improved. Patient has significant debility likely secondary to chronic alcohol abuse and needs further rehabilitation to get stronger before he can return home. Other conditions treated include: Thrombocytopenia - chronic, at baseline Seizure disorder - cont Depakote & Keppra PTSD/personality disorder: Continue Seroquel. Trazodone at night. Seems stable. Status Post with steroids and breathing treatment. His respiratory status returned to baseline. Patient is medically cleared for discharge. Awaiting SNF placement. Discharge Planning DC to SNF once arrangements are made. Case management following. Melanie Velasco MD Sep 04, 2017 10:53
[2017-09-04 11:43] VITALS: BP 132/74; PULSE 57; RESP 18; TEMP 97.8; O2SAT 97
[2017-09-04 15:39] VITALS: BP 147/81; PULSE 63; RESP 18; TEMP 98.4; O2SAT 97
[2017-09-04 20:00] VITALS: BP 162/102; PULSE 82; RESP 20; TEMP 97.6; O2SAT 97
[2017-09-04] MEDS: DIVALPROEX SODIUM E.R. 500 MG TAB PO SCH (20:09)
[2017-09-04] MEDS: traZODone HCL 100 MG TAB PO SCH (20:09)
[2017-09-04] MEDS: QUEtiapine FUMARATE 25 MG TAB PO SCH (20:09)
[2017-09-05] VITALS: BP 123/66; PULSE 56; RESP 20; TEMP 97.6; O2SAT 97
[2017-09-05 04:00] VITALS: BP 172/80; PULSE 56; RESP 20; TEMP 97.8; O2SAT 94
[2017-09-05] MEDS: HEPARIN SODIUM - SQ 10,000 UNITS/ML VIAL SQ SCH ×2 (05:52→17:13)
[2017-09-05 08:28] VITALS: BP 157/82; PULSE 51; RESP 19; TEMP 97.9; O2SAT 97
[2017-09-05] MEDS: DOCUSATE SODIUM 50 MG/SENNA 8.6 MG TAB PO SCH ×2 (09:00→21:30)
[2017-09-05] MEDS: predniSONE 20 MG TAB PO SCH ×2 (09:02→21:30)
[2017-09-05] MEDS: LACTULOSE SYRUP 20 GM/30 ML CUP PO SCH ×2 (09:02→21:30)
[2017-09-05] MEDS: SERTRALINE HCL 100 MG TAB PO SCH (09:02)
[2017-09-05] MEDS: SODIUM CHLORIDE 0.9% FLUSH 10 ML FLUSH IV FLUSH SCH ×2 (09:03→21:30)
[2017-09-05] MEDS: levETIRAcetam 500 MG TAB PO SCH ×2 (09:08→21:29)
--- NOTE | 2017-09-05 11:18 | HHI.PR ---
Subjective Remarks No new issues. Awaiting placement. Objective Vitals Vital Signs Date Time Temp Pulse Resp B/P (MAP) Pulse Ox O2 Delivery O2 Flow Rate FiO2 09/05/17 08:28 97.9 51 19 157/82 (107) 97 09/05/17 04:00 97.8 56 20 172/80 (110) 94 09/05/17 00:00 97.6 56 20 123/66 (85) 97 09/04/17 20:00 97.6 82 20 162/102 (122) 97 09/04/17 15:39 98.4 63 18 147/81 (103) 97 09/04/17 11:43 97.8 57 18 132/74 (93) 97 I/O 09/04/17 09/04/17 09/04/17 09/05/17 09/05/17 09/05/17 07:00 15:00 23:00 07:00 15:00 23:00 Intake Total 1540 ml 120 ml Output Total 300 ml 300 ml Balance 1240 ml -180 ml Intake Oral 1540 ml 120 ml Output Urine Total 300 ml 300 ml # Voids 5 4 1 # Bowel Movements 1 1 0 Objective Remarks GENERAL: Patient appear older than stated age. CARDIOVASCULAR: Normal rate and regular rhythm without murmurs, gallops, or rubs. RESPIRATORY: Good respiratory efforts. Breath sounds equal and clear to auscultation bilaterally. GASTROINTESTINAL: Abdomen soft, non-tender, non-distended. Normal active bowel sounds MUSCULOSKELETAL: Extremities without cyanosis, or edema. NEURO: Alert & Oriented x4 to person, place, time, situation. Moves all ext x4. Generalized weakness. Chronic resting tremor PSYCH: Calm Procedures None A/P Problem List: (1) Encephalopathy ICD Code: G93.40 - Encephalopathy Status: Acute (2) Alcohol-induced mood disorder ICD Code: F10.94 - Alcohol use, unspecified with alcohol-induced mood disorder Status: Acute (3) Debility ICD Code: R53.81 - Other malaise (4) COPD (chronic obstructive pulmonary disease) ICD Code: J44.9 - COPD (chronic obstructive pulmonary disease) Status: Chronic (5) PTSD (post-traumatic stress disorder) ICD Code: F43.10 - Post-traumatic stress disorder, unspecified Assessment and Plan 62-year-old male patient of an RESIDENTIAL who was sent from his [facility] for aggressive behavior and altered mental status. The patient's medical history significant for bipolar disorder, seizure disorder, gout, chronic back pain, COPD, hypertension, hep B and C, and dyslipidemia. In the ER the patient was combative and attempted to urinate on himself. He received multiple doses of Benadryl, Haldol, and Ativan. The ED attempted to discharge the patient back to his [facility], but then refused to take the patient back because of his aggressive behavior. The patient was admitted and treated for encephalopathy and behavioral disturbances. Psychiatry was consulted who lifted the Avelar act and increased the patient's Seroquel. His mental status much improved. Patient has significant debility likely secondary to chronic alcohol abuse and needs further rehabilitation to get stronger before he can return home. Other conditions treated include: Thrombocytopenia - chronic, at baseline Seizure disorder - cont Depakote & Keppra PTSD/personality disorder: Continue Seroquel. Trazodone at night. Seems stable. Status Post with steroids and breathing treatment. His respiratory status returned to baseline. Patient is medically cleared for discharge. Awaiting SNF placement. Case management following Discharge Planning DC to SNF once arrangements are made. Case management following. Melanie Velasco MD Sep 05, 2017 11:17
[2017-09-05] MEDS: hydrOXYzine HCL 50 MG TAB PO PRN (12:45)
[2017-09-05 13:16] VITALS: BP 134/97; PULSE 61; RESP 18; TEMP 97.6; O2SAT 99
[2017-09-05 17:03] VITALS: BP 154/87; PULSE 69; RESP 18; TEMP 97.8; O2SAT 97
[2017-09-05 20:00] VITALS: BP 121/75; PULSE 71; RESP 22; TEMP 98.1; O2SAT 95
[2017-09-05] MEDS: traZODone HCL 100 MG TAB PO SCH (21:29)
[2017-09-05] MEDS: DIVALPROEX SODIUM E.R. 500 MG TAB PO SCH (21:29)
[2017-09-05] MEDS: QUEtiapine FUMARATE 25 MG TAB PO SCH (21:30)
[2017-09-06] VITALS: BP 141/74; PULSE 70; RESP 20; TEMP 98.7; O2SAT 96
[2017-09-06 04:00] VITALS: BP 146/69; PULSE 68; RESP 20; TEMP 98.7; O2SAT 95
[2017-09-06] MEDS: HEPARIN SODIUM - SQ 10,000 UNITS/ML VIAL SQ SCH ×2 (05:28→17:23)
[2017-09-06 08:00] VITALS: BP 152/88; PULSE 50; RESP 16; TEMP 97.3; O2SAT 97
[2017-09-06] MEDS: SODIUM CHLORIDE 0.9% FLUSH 10 ML FLUSH IV FLUSH SCH ×2 (09:00→20:37)
[2017-09-06] MEDS: predniSONE 20 MG TAB PO SCH ×2 (10:09→20:32)
[2017-09-06] MEDS: levETIRAcetam 500 MG TAB PO SCH ×2 (10:10→20:32)
[2017-09-06] MEDS: SERTRALINE HCL 100 MG TAB PO SCH (10:10)
[2017-09-06] MEDS: DOCUSATE SODIUM 50 MG/SENNA 8.6 MG TAB PO SCH ×2 (10:11→20:32)
[2017-09-06] MEDS: LACTULOSE SYRUP 20 GM/30 ML CUP PO SCH ×2 (10:11→20:31)
--- NOTE | 2017-09-06 16:14 | HHI.PR ---
Subjective Remarks Patient reports he is doing okay today. No new issues. Awaiting placement. Objective Vitals Vital Signs Date Time Temp Pulse Resp B/P (MAP) Pulse Ox O2 Delivery O2 Flow Rate FiO2 09/06/17 08:00 97.3 50 16 152/88 (109) 97 09/06/17 04:00 98.7 68 20 146/69 (94) 95 09/06/17 00:00 98.7 70 20 141/74 (96) 96 09/05/17 20:00 98.1 71 22 121/75 (90) 95 09/05/17 17:03 97.8 69 18 154/87 (109) 97 I/O 09/05/17 09/05/17 09/05/17 09/06/17 09/06/17 09/06/17 07:00 15:00 23:00 07:00 15:00 23:00 Intake Total 120 ml 1260 ml 800 ml Output Total 300 ml Balance -180 ml 1260 ml 800 ml Intake Oral 120 ml 1260 ml 800 ml Output Urine Total 300 ml # Voids 1 4 5 # Bowel Movements 0 1 2 Objective Remarks GENERAL: Patient appear older than stated age. CARDIOVASCULAR: Normal rate and regular rhythm without murmurs, gallops, or rubs. RESPIRATORY: Good respiratory efforts. Breath sounds equal and clear to auscultation bilaterally. GASTROINTESTINAL: Abdomen soft, non-tender, non-distended. Normal active bowel sounds MUSCULOSKELETAL: Extremities without cyanosis, or edema. NEURO: Alert & Oriented x4 to person, place, time, situation. Moves all ext x4. Generalized weakness. Chronic resting tremor PSYCH: Calm Procedures None A/P Problem List: (1) Encephalopathy ICD Code: G93.40 - Encephalopathy Status: Acute (2) Alcohol-induced mood disorder ICD Code: F10.94 - Alcohol use, unspecified with alcohol-induced mood disorder Status: Acute (3) Debility ICD Code: R53.81 - Other malaise (4) COPD (chronic obstructive pulmonary disease) ICD Code: J44.9 - COPD (chronic obstructive pulmonary disease) Status: Chronic (5) PTSD (post-traumatic stress disorder) ICD Code: F43.10 - Post-traumatic stress disorder, unspecified Assessment and Plan 62-year-old male patient of an RETIREMENT who was sent from his RETIREMENT for aggressive behavior and altered mental status. The patient's medical history significant for bipolar disorder, seizure disorder, gout, chronic back pain, COPD, hypertension, hep B and C, and dyslipidemia. In the ER the patient was combative and attempted to urinate on himself. He received multiple doses of Benadryl, Haldol, and Ativan. The ED attempted to discharge the patient back to his [facility], but then refused to take the patient back because of his aggressive behavior. The patient was admitted and treated for encephalopathy and behavioral disturbances. Psychiatry was consulted who lifted the Avelar act and increased the patient's Seroquel. His mental status much improved. Patient has significant debility likely secondary to chronic alcohol abuse and needs further rehabilitation to get stronger before he can return home. Other conditions treated include: Thrombocytopenia - chronic, at baseline Seizure disorder - cont Depakote & Keppra PTSD/personality disorder: Continue Seroquel. Trazodone at night. Seems stable. Status Post with steroids and breathing treatment. His respiratory status returned to baseline. Patient is medically cleared for discharge. Awaiting SNF placement. Case management following Discharge Planning DC to SNF once arrangements are made. Case management following. Melanie Velasco MD Sep 06, 2017 16:14
[2017-09-06] MEDS: traZODone HCL 100 MG TAB PO SCH (20:32)
[2017-09-06] MEDS: QUEtiapine FUMARATE 25 MG TAB PO SCH (20:32)
[2017-09-06] MEDS: DIVALPROEX SODIUM E.R. 500 MG TAB PO SCH (20:32)
[2017-09-06 20:47] VITALS: BP 154/87; PULSE 63; RESP 19; TEMP 97.6; O2SAT 98
[2017-09-07 04:00] VITALS: BP 176/97; PULSE 53; RESP 18; TEMP 98.2; O2SAT 98
[2017-09-07] MEDS: HEPARIN SODIUM - SQ 10,000 UNITS/ML VIAL SQ SCH ×2 (05:42→17:20)
[2017-09-07 08:37] VITALS: BP 168/86; PULSE 43; RESP 15; TEMP 98; O2SAT 97
[2017-09-07] MEDS: SODIUM CHLORIDE 0.9% FLUSH 10 ML FLUSH IV FLUSH SCH ×2 (09:00→20:59)
[2017-09-07] MEDS: SERTRALINE HCL 100 MG TAB PO SCH (10:27)
[2017-09-07] MEDS: DOCUSATE SODIUM 50 MG/SENNA 8.6 MG TAB PO SCH ×2 (10:28→21:00)
[2017-09-07] MEDS: levETIRAcetam 500 MG TAB PO SCH ×2 (10:28→21:00)
[2017-09-07] MEDS: predniSONE 20 MG TAB PO SCH ×2 (10:28→21:00)
[2017-09-07] MEDS: LACTULOSE SYRUP 20 GM/30 ML CUP PO SCH ×2 (10:29→20:59)
--- NOTE | 2017-09-07 10:58 | HHI.PR ---
Subjective Remarks Follow up seizure disorder, altered mental status. Patient states that he had " a small seizure last night, not as bad as they used to be". No other complaints at this time. He feels that "the medication is working. It's not making me drowsy." Objective Vitals Vital Signs Date Time Temp Pulse Resp B/P (MAP) Pulse Ox O2 Delivery O2 Flow Rate FiO2 09/07/17 08:37 98.0 43 15 168/86 (113) 97 09/07/17 04:00 98.2 53 18 176/97 (123) 98 09/06/17 20:47 97.6 63 19 154/87 (109) 98 I/O 09/06/17 09/06/17 09/06/17 09/07/17 09/07/17 09/07/17 07:00 15:00 23:00 07:00 15:00 23:00 Intake Total 800 ml Balance 800 ml Intake Oral 800 ml # Voids 5 2 # Bowel Movements 2 0 Imaging Last Impressions Head CT 08/28/17 0000 Signed Impressions: Service Date/Time: Monday, August 28, 2017 06:05 - CONCLUSION: 1. No acute intracranial hemorrhage. 2. Stable diffuse bilateral cortical atrophy. 3. No significant change compared to the prior exam. Wade Butler MD Cervical Spine CT 08/28/17 0000 Signed Impressions: Service Date/Time: Monday, August 28, 2017 06:08 - CONCLUSION: 1. No acute bony fracture. 2. Stable diffuse primary degenerative changes involving the cervical spine. 3. No new or significant changes. Wade Butler MD Objective Remarks General: No acute distress. Appears older than stated age. Heart: Regular rate and rhythm. No murmur. Lungs: Clear to auscultation bilaterally. No wheezes, rales, or rhonchi. Breathing is nonlabored. Abdomen: Soft, nontender, nondistended. Extremities: No lower extremity edema. Psych: Alert, oriented. Answers questions appropriately. Procedures None Urinary Catheter: No Vascular Central Line Catheter: No A/P Problem List: (1) Encephalopathy ICD Code: G93.40 - Encephalopathy Status: Acute (2) Alcohol-induced mood disorder ICD Code: F10.94 - Alcohol use, unspecified with alcohol-induced mood disorder Status: Acute (3) Debility ICD Code: R53.81 - Other malaise (4) COPD (chronic obstructive pulmonary disease) ICD Code: J44.9 - COPD (chronic obstructive pulmonary disease) Status: Chronic (5) PTSD (post-traumatic stress disorder) ICD Code: F43.10 - Post-traumatic stress disorder, unspecified Assessment and Plan 1. Aggressive behavior, encephalopathy: Patient has had significant improvement in his mental status, likely back to baseline. He was evaluated by psychiatry, and the Avelar act was lifted. Continue Seroquel, sertraline. 2. Thrombocytopenia: Chronic, at baseline. 3. Seizure disorder: Continue Depakote, Keppra. Seizure precautions. 4. PTSD, personality disorder: Appreciate psychiatry recommendations. Continue Seroquel. Trazodone daily at bedtime. 5. COPD: Continue steroids. Respiratory status is at baseline. 6. Generalized weakness: Patient has chronic debility likely secondary to chronic alcohol abuse. He would benefit from further rehabilitation. 7. DVT prophylaxis: Heparin. Patient has been refusing. Discharge Planning Discharge to SNF when arrangements are made. Patient is medically cleared for discharge. Case management assisting with discharge planning. Jose James MD Sep 07, 2017 10:58
[2017-09-07 12:03] VITALS: BP 126/63; PULSE 52; RESP 20; TEMP 97.5; O2SAT 99
[2017-09-07 16:58] VITALS: BP 148/77; PULSE 57; RESP 20; TEMP 97.6; O2SAT 94
[2017-09-07] MEDS: DIVALPROEX SODIUM E.R. 500 MG TAB PO SCH (21:00)
[2017-09-07] MEDS: QUEtiapine FUMARATE 25 MG TAB PO SCH (21:00)
[2017-09-07] MEDS: traZODone HCL 100 MG TAB PO SCH (21:00)
[2017-09-07 21:30] VITALS: BP 124/87; PULSE 64; RESP 19; TEMP 97; O2SAT 98
[2017-09-08 00:30] VITALS: BP 125/80; PULSE 65; RESP 19; TEMP 98; O2SAT 97
[2017-09-08 04:45] VITALS: BP 120/76; PULSE 66; RESP 19; TEMP 97.6; O2SAT 98
[2017-09-08] MEDS: HEPARIN SODIUM - SQ 10,000 UNITS/ML VIAL SQ SCH ×2 (06:00→16:26)
[2017-09-08] MEDS: SODIUM CHLORIDE 0.9% FLUSH 10 ML FLUSH IV FLUSH SCH ×2 (08:54→20:50)
[2017-09-08] MEDS: SERTRALINE HCL 100 MG TAB PO SCH (08:54)
[2017-09-08] MEDS: DOCUSATE SODIUM 50 MG/SENNA 8.6 MG TAB PO SCH ×2 (08:55→20:51)
[2017-09-08] MEDS: predniSONE 20 MG TAB PO SCH ×2 (08:55→20:50)
[2017-09-08] MEDS: levETIRAcetam 500 MG TAB PO SCH ×2 (08:56→20:51)
[2017-09-08] MEDS: LACTULOSE SYRUP 20 GM/30 ML CUP PO SCH ×2 (08:58→20:51)
[2017-09-08 09:03] VITALS: BP 137/73; PULSE 62; RESP 20; TEMP 97.9; O2SAT 99
[2017-09-08 12:17] VITALS: BP 145/70; PULSE 59; RESP 20; TEMP 97.3; O2SAT 95
--- NOTE | 2017-09-08 13:52 | HHI.PR ---
Subjective Remarks Follow up seizure disorder, altered mental status. The patient has no complaints at this time. He wants to go home. Objective Vitals Vital Signs Date Time Temp Pulse Resp B/P (MAP) Pulse Ox O2 Delivery O2 Flow Rate FiO2 09/08/17 12:17 97.3 59 20 145/70 (95) 95 09/08/17 09:03 97.9 62 20 137/73 (94) 99 09/08/17 04:45 97.6 66 19 120/76 (91) 98 09/08/17 00:30 98.0 65 19 125/80 (95) 97 09/07/17 21:30 97.0 64 19 124/87 (99) 98 09/07/17 16:58 97.6 57 20 148/77 (100) 94 I/O 09/07/17 09/07/17 09/07/17 09/08/17 09/08/17 09/08/17 07:00 15:00 23:00 07:00 15:00 23:00 Intake Total 600 ml 1000 ml 900 ml Balance 600 ml 1000 ml 900 ml Intake Oral 600 ml 1000 ml 900 ml # Voids 5 1 2 # Bowel Movements 0 0 1 Imaging Last Impressions Head CT 08/28/17 0000 Signed Impressions: Service Date/Time: Monday, August 28, 2017 06:05 - CONCLUSION: 1. No acute intracranial hemorrhage. 2. Stable diffuse bilateral cortical atrophy. 3. No significant change compared to the prior exam. Wade Butler MD Cervical Spine CT 08/28/17 0000 Signed Impressions: Service Date/Time: Monday, August 28, 2017 06:08 - CONCLUSION: 1. No acute bony fracture. 2. Stable diffuse primary degenerative changes involving the cervical spine. 3. No new or significant changes. Wade Butler MD Objective Remarks General: No acute distress. Appears older than stated age. Heart: Regular rate and rhythm. No murmur. Lungs: Clear to auscultation bilaterally. No wheezes, rales, or rhonchi. Breathing is nonlabored. Abdomen: Soft, nontender, nondistended. Extremities: No lower extremity edema. Psych: Alert, oriented. Answers questions appropriately. Procedures None Urinary Catheter: No Vascular Central Line Catheter: No A/P Problem List: (1) Encephalopathy ICD Code: G93.40 - Encephalopathy Status: Acute (2) Alcohol-induced mood disorder ICD Code: F10.94 - Alcohol use, unspecified with alcohol-induced mood disorder Status: Acute (3) Debility ICD Code: R53.81 - Other malaise (4) COPD (chronic obstructive pulmonary disease) ICD Code: J44.9 - COPD (chronic obstructive pulmonary disease) Status: Chronic (5) PTSD (post-traumatic stress disorder) ICD Code: F43.10 - Post-traumatic stress disorder, unspecified Assessment and Plan 09/08/17: No change. Awaiting placement. 1. Aggressive behavior, encephalopathy: Patient has had significant improvement in his mental status, likely back to baseline. He was evaluated by psychiatry, and the Avelar act was lifted. Continue Seroquel, sertraline. 2. Thrombocytopenia: Chronic, at baseline. 3. Seizure disorder: Continue Depakote, Keppra. Seizure precautions. 4. PTSD, personality disorder: Appreciate psychiatry recommendations. Continue Seroquel. Trazodone daily at bedtime. 5. COPD: Continue steroids. Respiratory status is at baseline. 6. Generalized weakness: Patient has chronic debility likely secondary to chronic alcohol abuse. He would benefit from further rehabilitation. 7. DVT prophylaxis: Heparin. Patient has been refusing. Discharge Planning Discharge to SNF when arrangements are made. Patient is medically cleared for discharge. Case management assisting with discharge planning. Jose James MD Sep 08, 2017 13:52
[2017-09-08 16:47] VITALS: BP 147/94; PULSE 74; RESP 20; TEMP 97.3; O2SAT 100
[2017-09-08 20:00] VITALS: BP 157/78; PULSE 71; RESP 18; TEMP 98.1; O2SAT 99
[2017-09-08] MEDS: DIVALPROEX SODIUM E.R. 500 MG TAB PO SCH (20:50)
[2017-09-08] MEDS: QUEtiapine FUMARATE 25 MG TAB PO SCH (20:51)
[2017-09-08] MEDS: traZODone HCL 100 MG TAB PO SCH (20:51)
[2017-09-09] VITALS: BP 139/83; PULSE 65; RESP 18; TEMP 97.6; O2SAT 96
[2017-09-09 04:00] VITALS: BP 157/86; PULSE 57; RESP 18; TEMP 98.4; O2SAT 95
[2017-09-09] MEDS: HEPARIN SODIUM - SQ 10,000 UNITS/ML VIAL SQ SCH ×2 (05:47→17:08)
[2017-09-09] MEDS: levETIRAcetam 500 MG TAB PO SCH ×2 (08:21→22:03)
[2017-09-09] MEDS: predniSONE 20 MG TAB PO SCH ×2 (08:21→22:02)
[2017-09-09] MEDS: DOCUSATE SODIUM 50 MG/SENNA 8.6 MG TAB PO SCH ×2 (08:22→22:02)
[2017-09-09] MEDS: LACTULOSE SYRUP 20 GM/30 ML CUP PO SCH ×2 (08:23→22:02)
[2017-09-09] MEDS: SERTRALINE HCL 100 MG TAB PO SCH (08:23)
[2017-09-09] MEDS: SODIUM CHLORIDE 0.9% FLUSH 10 ML FLUSH IV FLUSH SCH ×2 (08:24→22:03)
[2017-09-09 08:26] VITALS: BP 156/77; PULSE 50; RESP 16; TEMP 97.9; O2SAT 96
[2017-09-09 12:41] VITALS: BP 146/86; PULSE 63; RESP 16; TEMP 97.7; O2SAT 98
--- NOTE | 2017-09-09 13:53 | HHI.PR ---
Subjective Remarks Follow up seizure disorder, altered mental status. Patient was ambulating with the walker today. Specific complaints at this time. Objective Vitals Vital Signs Date Time Temp Pulse Resp B/P (MAP) Pulse Ox O2 Delivery O2 Flow Rate FiO2 09/09/17 12:41 97.7 63 16 146/86 (106) 98 09/09/17 08:26 97.9 50 16 156/77 (103) 96 09/09/17 04:00 98.4 57 18 157/86 (109) 95 09/09/17 00:00 97.6 65 18 139/83 (101) 96 09/08/17 20:00 98.1 71 18 157/78 (104) 99 09/08/17 16:47 97.3 74 20 147/94 (111) 100 I/O 09/08/17 09/08/17 09/08/17 09/09/17 09/09/17 09/09/17 07:00 15:00 23:00 07:00 15:00 23:00 Intake Total 900 ml 720 ml 600 ml Balance 900 ml 720 ml 600 ml Intake Oral 900 ml 720 ml 600 ml # Voids 2 3 3 # Bowel Movements 1 1 Imaging Last Impressions Head CT 08/28/17 0000 Signed Impressions: Service Date/Time: Monday, August 28, 2017 06:05 - CONCLUSION: 1. No acute intracranial hemorrhage. 2. Stable diffuse bilateral cortical atrophy. 3. No significant change compared to the prior exam. Wade Butler MD Cervical Spine CT 08/28/17 0000 Signed Impressions: Service Date/Time: Monday, August 28, 2017 06:08 - CONCLUSION: 1. No acute bony fracture. 2. Stable diffuse primary degenerative changes involving the cervical spine. 3. No new or significant changes. Wade Butler MD Objective Remarks General: No acute distress. Appears older than stated age. Heart: Regular rate and rhythm. No murmur. Lungs: Clear to auscultation bilaterally. No wheezes, rales, or rhonchi. Breathing is nonlabored. Abdomen: Soft, nontender, nondistended. Extremities: No lower extremity edema. Psych: Alert, answers questions appropriately. Procedures None Urinary Catheter: No Vascular Central Line Catheter: No A/P Problem List: (1) Encephalopathy ICD Code: G93.40 - Encephalopathy Status: Acute (2) Alcohol-induced mood disorder ICD Code: F10.94 - Alcohol use, unspecified with alcohol-induced mood disorder Status: Acute (3) Debility ICD Code: R53.81 - Other malaise (4) COPD (chronic obstructive pulmonary disease) ICD Code: J44.9 - COPD (chronic obstructive pulmonary disease) Status: Chronic (5) PTSD (post-traumatic stress disorder) ICD Code: F43.10 - Post-traumatic stress disorder, unspecified Assessment and Plan 09/09/17: No change. Awaiting placement. 1. Aggressive behavior, encephalopathy: Patient has had significant improvement in his mental status, likely back to baseline. He was evaluated by psychiatry, and the Avelar act was lifted. Continue Seroquel, sertraline. 2. Thrombocytopenia: Chronic, at baseline. 3. Seizure disorder: Continue Depakote, Keppra. Seizure precautions. 4. PTSD, personality disorder: Appreciate psychiatry recommendations. Continue Seroquel. Trazodone daily at bedtime. 5. COPD: Taper steroids. Respiratory status is at baseline. 6. Generalized weakness: Patient has chronic debility likely secondary to chronic alcohol abuse. He would benefit from further rehabilitation. 7. DVT prophylaxis: Heparin. Patient has been refusing. Discharge Planning Discharge to SNF when arrangements are made. Patient is medically cleared for discharge. Case management assisting with discharge planning. Jose Jamse MD Sep 09, 2017 13:53
[2017-09-09] MEDS: cloNIDine HCL 0.1 MG TAB PO PRN (16:13)
[2017-09-09 16:36] VITALS: BP 174/96; PULSE 76; RESP 16; TEMP 97.3; O2SAT 97
[2017-09-09 20:00] VITALS: BP 149/79; PULSE 84; RESP 17; TEMP 98.5; O2SAT 96
[2017-09-09] MEDS: QUEtiapine FUMARATE 25 MG TAB PO SCH (22:02)
[2017-09-09] MEDS: traZODone HCL 100 MG TAB PO SCH (22:02)
[2017-09-09] MEDS: DIVALPROEX SODIUM E.R. 500 MG TAB PO SCH (22:03)
[2017-09-10] VITALS: BP 111/64; PULSE 68; RESP 17; TEMP 98; O2SAT 96
[2017-09-10 04:17] VITALS: BP 135/80; PULSE 53; RESP 17; TEMP 97.9; O2SAT 94
[2017-09-10] MEDS: HEPARIN SODIUM - SQ 10,000 UNITS/ML VIAL SQ SCH ×2 (04:53→17:41)
[2017-09-10 08:34] VITALS: BP 138/70; PULSE 56; RESP 16; TEMP 97.3; O2SAT 95
[2017-09-10] MEDS: predniSONE 10 MG TAB PO SCH (09:27)
[2017-09-10] MEDS: levETIRAcetam 500 MG TAB PO SCH ×2 (09:27→20:18)
[2017-09-10] MEDS: LACTULOSE SYRUP 20 GM/30 ML CUP PO SCH ×2 (09:27→20:18)
[2017-09-10] MEDS: DOCUSATE SODIUM 50 MG/SENNA 8.6 MG TAB PO SCH ×2 (09:27→20:18)
[2017-09-10] MEDS: SODIUM CHLORIDE 0.9% FLUSH 10 ML FLUSH IV FLUSH SCH ×2 (09:28→20:19)
[2017-09-10] MEDS: SERTRALINE HCL 100 MG TAB PO SCH (09:28)
--- NOTE | 2017-09-10 11:21 | HHI.PR ---
Subjective Remarks Follow up seizure disorder, confusion. No specific complaints at this time. Wants to go home. Objective Vitals Vital Signs Date Time Temp Pulse Resp B/P (MAP) Pulse Ox O2 Delivery O2 Flow Rate FiO2 09/10/17 08:34 97.3 56 16 138/70 (92) 95 09/10/17 04:17 97.9 53 17 135/80 (98) 94 09/10/17 00:00 98.0 68 17 111/64 (80) 96 09/09/17 20:00 98.5 84 17 149/79 (102) 96 09/09/17 16:36 97.3 76 16 174/96 (122) 97 09/09/17 12:41 97.7 63 16 146/86 (106) 98 I/O 09/09/17 09/09/17 09/09/17 09/10/17 09/10/17 09/10/17 06:59 14:59 22:59 06:59 14:59 22:59 Intake Total 600 ml 240 ml Balance 600 ml 240 ml Intake Oral 600 ml 240 ml # Voids 3 3 3 # Bowel Movements 1 Imaging Last Impressions Head CT 08/28/17 0000 Signed Impressions: Service Date/Time: Monday, August 28, 2017 06:05 - CONCLUSION: 1. No acute intracranial hemorrhage. 2. Stable diffuse bilateral cortical atrophy. 3. No significant change compared to the prior exam. Wade Butler MD Cervical Spine CT 08/28/17 0000 Signed Impressions: Service Date/Time: Monday, August 28, 2017 06:08 - CONCLUSION: 1. No acute bony fracture. 2. Stable diffuse primary degenerative changes involving the cervical spine. 3. No new or significant changes. Wade Butler MD Objective Remarks General: No acute distress. Appears older than stated age. Heart: Regular rate and rhythm. No murmur. Lungs: Clear to auscultation bilaterally. No wheezes, rales, or rhonchi. Breathing is nonlabored. Abdomen: Soft, nontender, nondistended. Extremities: No lower extremity edema. Psych: Alert, answers questions appropriately. Procedures None Urinary Catheter: No Vascular Central Line Catheter: No A/P Problem List: (1) Encephalopathy ICD Code: G93.40 - Encephalopathy Status: Acute (2) Alcohol-induced mood disorder ICD Code: F10.94 - Alcohol use, unspecified with alcohol-induced mood disorder Status: Acute (3) Debility ICD Code: R53.81 - Other malaise (4) COPD (chronic obstructive pulmonary disease) ICD Code: J44.9 - COPD (chronic obstructive pulmonary disease) Status: Chronic (5) PTSD (post-traumatic stress disorder) ICD Code: F43.10 - Post-traumatic stress disorder, unspecified Assessment and Plan 09/10/17: No change. Awaiting placement. 1. Aggressive behavior, encephalopathy: Patient has had significant improvement in his mental status, likely back to baseline. He was evaluated by psychiatry, and the Avelar act was lifted. Continue Seroquel, sertraline. 2. Thrombocytopenia: Chronic, at baseline. 3. Seizure disorder: Continue Depakote, Keppra. Seizure precautions. 4. PTSD, personality disorder: Appreciate psychiatry recommendations. Continue Seroquel. Trazodone daily at bedtime. 5. COPD: Taper steroids. Respiratory status is at baseline. 6. Generalized weakness: Patient has chronic debility likely secondary to chronic alcohol abuse. He would benefit from further rehabilitation. 7. DVT prophylaxis: Heparin. Patient has been refusing. Discharge Planning Discharge to SNF when arrangements are made. Patient is medically cleared for discharge. Case management assisting with discharge planning. Jose James MD Sep 10, 2017 11:21
[2017-09-10 12:59] VITALS: BP 136/65; PULSE 70; RESP 16; TEMP 97.4; O2SAT 95
[2017-09-10 16:37] VITALS: BP 177/90; PULSE 59; RESP 16; TEMP 97.3; O2SAT 97
[2017-09-10] MEDS: traZODone HCL 100 MG TAB PO SCH (20:18)
[2017-09-10] MEDS: QUEtiapine FUMARATE 25 MG TAB PO SCH (20:18)
[2017-09-10] MEDS: DIVALPROEX SODIUM E.R. 500 MG TAB PO SCH (20:18)
[2017-09-10 21:00] VITALS: BP 145/68; PULSE 64; RESP 17; TEMP 98.4; O2SAT 94
[2017-09-11 00:50] VITALS: BP 118/64; PULSE 70; RESP 17; TEMP 97.8; O2SAT 95
[2017-09-11] MEDS: HEPARIN SODIUM - SQ 10,000 UNITS/ML VIAL SQ SCH ×2 (05:50→17:47)
[2017-09-11 06:15] VITALS: BP 135/86; PULSE 85; RESP 17; TEMP 98.3; O2SAT 97
[2017-09-11 08:00] VITALS: BP 110/59; PULSE 54; RESP 16; TEMP 98; O2SAT 94
[2017-09-11] MEDS: LACTULOSE SYRUP 20 GM/30 ML CUP PO SCH ×2 (09:00→22:53)
[2017-09-11] MEDS: SODIUM CHLORIDE 0.9% FLUSH 10 ML FLUSH IV FLUSH SCH ×2 (09:58→22:50)
[2017-09-11] MEDS: DOCUSATE SODIUM 50 MG/SENNA 8.6 MG TAB PO SCH ×2 (09:59→22:53)
[2017-09-11] MEDS: SERTRALINE HCL 100 MG TAB PO SCH (10:00)
[2017-09-11] MEDS: predniSONE 10 MG TAB PO SCH (10:00)
[2017-09-11] MEDS: levETIRAcetam 500 MG TAB PO SCH ×2 (10:01→22:53)
[2017-09-11 12:00] VITALS: BP 119/69; PULSE 73; RESP 16; TEMP 97.9; O2SAT 95
--- NOTE | 2017-09-11 14:16 | HHI.PR ---
Subjective Remarks Follow up seizure disorder, confusion. No complaints today. Wants to go home. Objective Vitals Vital Signs Date Time Temp Pulse Resp B/P (MAP) Pulse Ox O2 Delivery O2 Flow Rate FiO2 09/11/17 12:00 97.9 73 16 119/69 (86) 95 09/11/17 08:00 98.0 54 16 110/59 (76) 94 09/11/17 06:15 98.3 85 17 135/86 (102) 97 09/11/17 00:50 97.8 70 17 118/64 (82) 95 09/10/17 21:00 98.4 64 17 145/68 (93) 94 09/10/17 16:37 97.3 59 16 177/90 (119) 97 I/O 09/10/17 09/10/17 09/10/17 09/11/17 09/11/17 09/11/17 07:00 15:00 23:00 07:00 15:00 23:00 Intake Total 240 ml 0 ml 360 ml Balance 240 ml 0 ml 360 ml Intake Oral 240 ml 360 ml Other 0 ml # Voids 3 3 Imaging Last Impressions Head CT 08/28/17 0000 Signed Impressions: Service Date/Time: Monday, August 28, 2017 06:05 - CONCLUSION: 1. No acute intracranial hemorrhage. 2. Stable diffuse bilateral cortical atrophy. 3. No significant change compared to the prior exam. Wade Butler MD Cervical Spine CT 08/28/17 0000 Signed Impressions: Service Date/Time: Monday, August 28, 2017 06:08 - CONCLUSION: 1. No acute bony fracture. 2. Stable diffuse primary degenerative changes involving the cervical spine. 3. No new or significant changes. Wade Butler MD Objective Remarks General: No acute distress. Appears older than stated age. Heart: Regular rate and rhythm. No murmur. Lungs: Clear to auscultation bilaterally. No wheezes, rales, or rhonchi. Breathing is nonlabored. Abdomen: Soft, nontender, nondistended. Extremities: No lower extremity edema. Psych: Alert, answers questions appropriately. Procedures None Urinary Catheter: No Vascular Central Line Catheter: No A/P Problem List: (1) Encephalopathy ICD Code: G93.40 - Encephalopathy Status: Acute (2) Alcohol-induced mood disorder ICD Code: F10.94 - Alcohol use, unspecified with alcohol-induced mood disorder Status: Acute (3) Debility ICD Code: R53.81 - Other malaise (4) COPD (chronic obstructive pulmonary disease) ICD Code: J44.9 - COPD (chronic obstructive pulmonary disease) Status: Chronic (5) PTSD (post-traumatic stress disorder) ICD Code: F43.10 - Post-traumatic stress disorder, unspecified Assessment and Plan 09/11/17: No change. Awaiting placement. 1. Aggressive behavior, encephalopathy: Patient has had significant improvement in his mental status, likely back to baseline. He was evaluated by psychiatry, and the Avelar act was lifted. Continue Seroquel, sertraline. 2. Thrombocytopenia: Chronic, at baseline. 3. Seizure disorder: Continue Depakote, Keppra. Seizure precautions. 4. PTSD, personality disorder: Appreciate psychiatry recommendations. Continue Seroquel. Trazodone daily at bedtime. 5. COPD: Taper steroids. Respiratory status is at baseline. 6. Generalized weakness: Patient has chronic debility likely secondary to chronic alcohol abuse. He would benefit from further rehabilitation. 7. DVT prophylaxis: Heparin. Patient has been refusing. Discharge Planning Discharge to SNF when arrangements are made. Patient is medically cleared for discharge. Case management assisting with discharge planning. Jose James MD Sep 11, 2017 14:16
[2017-09-11 16:00] VITALS: BP 111/75; PULSE 74; RESP 16; TEMP 98; O2SAT 96
[2017-09-11 20:00] VITALS: BP 139/79; PULSE 68; RESP 18; TEMP 98.2; O2SAT 96
[2017-09-11] MEDS: DIVALPROEX SODIUM E.R. 500 MG TAB PO SCH (22:51)
[2017-09-11] MEDS: traZODone HCL 100 MG TAB PO SCH (22:51)
[2017-09-11] MEDS: QUEtiapine FUMARATE 25 MG TAB PO SCH (22:54)
[2017-09-12] VITALS: BP 117/68; PULSE 74; RESP 18; TEMP 98.3; O2SAT 96
[2017-09-12 04:00] VITALS: BP 151/79; PULSE 62; RESP 18; TEMP 98; O2SAT 97
[2017-09-12] MEDS: HEPARIN SODIUM - SQ 10,000 UNITS/ML VIAL SQ SCH ×2 (06:00→18:24)
[2017-09-12 08:00] VITALS: BP 145/72; PULSE 51; RESP 16; TEMP 98.6; O2SAT 96
[2017-09-12] MEDS: DOCUSATE SODIUM 50 MG/SENNA 8.6 MG TAB PO SCH ×2 (08:45→21:00)
[2017-09-12] MEDS: predniSONE 10 MG TAB PO SCH (08:45)
[2017-09-12] MEDS: SERTRALINE HCL 100 MG TAB PO SCH (08:45)
[2017-09-12] MEDS: SODIUM CHLORIDE 0.9% FLUSH 10 ML FLUSH IV FLUSH SCH ×2 (08:45→20:59)
[2017-09-12] MEDS: levETIRAcetam 500 MG TAB PO SCH ×2 (08:45→21:00)
[2017-09-12] MEDS: LACTULOSE SYRUP 20 GM/30 ML CUP PO SCH ×2 (08:45→21:00)
--- NOTE | 2017-09-12 11:00 | HHI.PR ---
Subjective Remarks Follow up seizure disorder, confusion. Patient has no complaints at this time. "I'm going home today". Objective Vitals Vital Signs Date Time Temp Pulse Resp B/P (MAP) Pulse Ox O2 Delivery O2 Flow Rate FiO2 09/12/17 08:00 98.6 51 16 145/72 (96) 96 09/12/17 04:00 98.0 62 18 151/79 (103) 97 09/12/17 00:00 98.3 74 18 117/68 (84) 96 09/11/17 20:00 98.2 68 18 139/79 (99) 96 09/11/17 16:00 98.0 74 16 111/75 (87) 96 09/11/17 12:00 97.9 73 16 119/69 (86) 95 I/O 09/11/17 09/11/17 09/11/17 09/12/17 09/12/17 09/12/17 07:00 15:00 23:00 07:00 15:00 23:00 Intake Total 360 ml Balance 360 ml Intake Oral 360 ml # Voids 3 3 # Bowel Movements 1 Imaging Last Impressions Head CT 08/28/17 0000 Signed Impressions: Service Date/Time: Monday, August 28, 2017 06:05 - CONCLUSION: 1. No acute intracranial hemorrhage. 2. Stable diffuse bilateral cortical atrophy. 3. No significant change compared to the prior exam. Wade Butler MD Cervical Spine CT 08/28/17 0000 Signed Impressions: Service Date/Time: Monday, August 28, 2017 06:08 - CONCLUSION: 1. No acute bony fracture. 2. Stable diffuse primary degenerative changes involving the cervical spine. 3. No new or significant changes. Wade Butler MD Objective Remarks General: No acute distress. Appears older than stated age. Heart: Regular rate and rhythm. No murmur. Lungs: Clear to auscultation bilaterally. No wheezes, rales, or rhonchi. Breathing is nonlabored. Abdomen: Soft, nontender, nondistended. Extremities: No lower extremity edema. Psych: Alert. Answers questions appropriately, but appears somewhat confused. Procedures None Urinary Catheter: No Vascular Central Line Catheter: No A/P Problem List: (1) Encephalopathy ICD Code: G93.40 - Encephalopathy Status: Acute (2) Alcohol-induced mood disorder ICD Code: F10.94 - Alcohol use, unspecified with alcohol-induced mood disorder Status: Acute (3) Debility ICD Code: R53.81 - Other malaise (4) COPD (chronic obstructive pulmonary disease) ICD Code: J44.9 - COPD (chronic obstructive pulmonary disease) Status: Chronic (5) PTSD (post-traumatic stress disorder) ICD Code: F43.10 - Post-traumatic stress disorder, unspecified Assessment and Plan 09/12/17: No change. Awaiting placement. 1. Aggressive behavior, encephalopathy: Patient has had significant improvement in his mental status, likely back to baseline. He was evaluated by psychiatry, and the Avelar act was lifted. Continue Seroquel, sertraline. 2. Thrombocytopenia: Chronic, at baseline. 3. Seizure disorder: Continue Depakote, Keppra. Seizure precautions. 4. PTSD, personality disorder: Appreciate psychiatry recommendations. Continue Seroquel. Trazodone daily at bedtime. 5. COPD: Taper steroids. Respiratory status is at baseline. 6. Generalized weakness: Patient has chronic debility likely secondary to chronic alcohol abuse. He would benefit from further rehabilitation. 7. DVT prophylaxis: Heparin. Discharge Planning Discharge to SNF when arrangements are made. Patient is medically cleared for discharge. Case management assisting with discharge planning. Jose James MD Sep 12, 2017 11:00
[2017-09-12 12:00] VITALS: BP 157/85; PULSE 62; RESP 16; TEMP 98.6; O2SAT 96
[2017-09-12 16:00] VITALS: BP 158/77; PULSE 50; RESP 16; TEMP 97.9; O2SAT 97
[2017-09-12 20:00] VITALS: BP 137/75; PULSE 57; RESP 18; TEMP 98.9; O2SAT 98
[2017-09-12] MEDS: traZODone HCL 100 MG TAB PO SCH (21:00)
[2017-09-12] MEDS: DIVALPROEX SODIUM E.R. 500 MG TAB PO SCH (21:00)
[2017-09-12] MEDS: QUEtiapine FUMARATE 25 MG TAB PO SCH (21:00)
[2017-09-13] VITALS: BP 130/74; PULSE 81; RESP 18; TEMP 97.7; O2SAT 99
[2017-09-13 04:00] VITALS: BP 132/71; PULSE 51; RESP 18; TEMP 97.4; O2SAT 94
[2017-09-13] MEDS: HEPARIN SODIUM - SQ 10,000 UNITS/ML VIAL SQ SCH ×2 (05:29→18:00)
[2017-09-13 08:00] VITALS: BP 158/84; PULSE 51; RESP 18; TEMP 97.8; O2SAT 94
[2017-09-13] MEDS: SODIUM CHLORIDE 0.9% FLUSH 10 ML FLUSH IV FLUSH SCH ×2 (09:00→21:00)
[2017-09-13] MEDS: LACTULOSE SYRUP 20 GM/30 ML CUP PO SCH ×2 (10:40→22:22)
[2017-09-13] MEDS: levETIRAcetam 500 MG TAB PO SCH ×2 (10:40→22:21)
[2017-09-13] MEDS: predniSONE 10 MG TAB PO SCH (10:40)
[2017-09-13] MEDS: SERTRALINE HCL 100 MG TAB PO SCH (10:40)
[2017-09-13] MEDS: DOCUSATE SODIUM 50 MG/SENNA 8.6 MG TAB PO SCH ×2 (10:41→21:00)
--- NOTE | 2017-09-13 11:16 | HHI.PR ---
Subjective Remarks Follow up seizure, confusion. No events per nursing. Patient reporting some " gas pain" in his abdomen. Objective Vitals Vital Signs Date Time Temp Pulse Resp B/P (MAP) Pulse Ox O2 Delivery O2 Flow Rate FiO2 09/13/17 08:00 97.8 51 18 158/84 (108) 94 09/13/17 04:00 97.4 51 18 132/71 (91) 94 09/13/17 00:00 97.7 81 18 130/74 (92) 99 09/12/17 20:00 98.9 57 18 137/75 (95) 98 09/12/17 16:00 97.9 50 16 158/77 (104) 97 09/12/17 12:00 98.6 62 16 157/85 (109) 96 I/O 09/12/17 09/12/17 09/12/17 09/13/17 09/13/17 09/13/17 06:59 14:59 22:59 06:59 14:59 22:59 # Voids 3 3 # Bowel Movements 1 1 Imaging Last Impressions Head CT 08/28/17 0000 Signed Impressions: Service Date/Time: Monday, August 28, 2017 06:05 - CONCLUSION: 1. No acute intracranial hemorrhage. 2. Stable diffuse bilateral cortical atrophy. 3. No significant change compared to the prior exam. Wade Butler MD Cervical Spine CT 08/28/17 0000 Signed Impressions: Service Date/Time: Monday, August 28, 2017 06:08 - CONCLUSION: 1. No acute bony fracture. 2. Stable diffuse primary degenerative changes involving the cervical spine. 3. No new or significant changes. Wade Butler MD Objective Remarks General: No acute distress. Appears older than stated age. Heart: Regular rate and rhythm. No murmur. Lungs: Clear to auscultation bilaterally. No wheezes, rales, or rhonchi. Breathing is nonlabored. Abdomen: Soft, mild tenderness in RLQ without rebound/guarding, nondistended. Extremities: No lower extremity edema. Psych: Alert. Answers questions appropriately, but appears somewhat confused. Procedures None Urinary Catheter: No Vascular Central Line Catheter: No A/P Problem List: (1) Encephalopathy ICD Code: G93.40 - Encephalopathy Status: Acute (2) Alcohol-induced mood disorder ICD Code: F10.94 - Alcohol use, unspecified with alcohol-induced mood disorder Status: Acute (3) Debility ICD Code: R53.81 - Other malaise (4) COPD (chronic obstructive pulmonary disease) ICD Code: J44.9 - COPD (chronic obstructive pulmonary disease) Status: Chronic (5) PTSD (post-traumatic stress disorder) ICD Code: F43.10 - Post-traumatic stress disorder, unspecified Assessment and Plan 09/13/17: No change. Awaiting placement. 1. Aggressive behavior, encephalopathy: Patient has had significant improvement in his mental status, likely back to baseline. He was evaluated by psychiatry, and the Avelar act was lifted. Continue Seroquel, sertraline. 2. Thrombocytopenia: Chronic, at baseline. 3. Seizure disorder: Continue Depakote, Keppra. Seizure precautions. 4. PTSD, personality disorder: Appreciate psychiatry recommendations. Continue Seroquel. Trazodone daily at bedtime. 5. COPD: Taper steroids. Respiratory status is at baseline. 6. Generalized weakness: Patient has chronic debility likely secondary to chronic alcohol abuse. He would benefit from further rehabilitation. 7. DVT prophylaxis: Heparin. Discharge Planning Discharge to SNF when arrangements are made. Patient is medically cleared for discharge. Case management assisting with discharge planning. Jose James MD Sep 13, 2017 11:16
[2017-09-13 12:27] VITALS: BP 113/69; PULSE 59; RESP 18; TEMP 97.8; O2SAT 96
[2017-09-13 16:00] VITALS: BP 125/75; PULSE 68; RESP 18; TEMP 97.4; O2SAT 96
[2017-09-13] MEDS: traZODone HCL 100 MG TAB PO SCH (22:21)
[2017-09-13] MEDS: QUEtiapine FUMARATE 25 MG TAB PO SCH (22:21)
[2017-09-13] MEDS: DIVALPROEX SODIUM E.R. 500 MG TAB PO SCH (22:21)
[2017-09-14 01:49] VITALS: BP 126/80; PULSE 57; RESP 20; TEMP 98; O2SAT 92
[2017-09-14 06:27] VITALS: BP 134/73; PULSE 57; RESP 20; TEMP 97.3; O2SAT 93
[2017-09-14] MEDS: HEPARIN SODIUM - SQ 10,000 UNITS/ML VIAL SQ SCH ×2 (06:29→17:57)
[2017-09-14 08:38] VITALS: BP 144/82; PULSE 55; RESP 18; TEMP 98; O2SAT 97
[2017-09-14] MEDS: SODIUM CHLORIDE 0.9% FLUSH 10 ML FLUSH IV FLUSH SCH ×3 (09:00→21:14)
[2017-09-14] MEDS: LACTULOSE SYRUP 20 GM/30 ML CUP PO SCH ×2 (09:19→21:07)
[2017-09-14] MEDS: DOCUSATE SODIUM 50 MG/SENNA 8.6 MG TAB PO SCH ×2 (09:20→21:00)
[2017-09-14] MEDS: SERTRALINE HCL 100 MG TAB PO SCH (09:20)
[2017-09-14] MEDS: predniSONE 10 MG TAB PO SCH (09:20)
[2017-09-14] MEDS: levETIRAcetam 500 MG TAB PO SCH ×2 (09:29→21:07)
[2017-09-14 12:40] VITALS: BP 128/78; PULSE 61; RESP 18; TEMP 98.1; O2SAT 95
--- NOTE | 2017-09-14 14:08 | HHI.PR ---
Subjective Remarks Follow-up encephalopathy 09/14/17-patient seen and examined,some confusion. Only [id number] to self Objective Vitals Vital Signs Date Time Temp Pulse Resp B/P (MAP) Pulse Ox O2 Delivery O2 Flow Rate FiO2 09/14/17 12:40 98.1 61 18 128/78 (95) 95 09/14/17 08:38 98.0 55 18 144/82 (102) 97 09/14/17 06:27 97.3 57 20 134/73 (93) 93 09/14/17 01:49 98.0 57 20 126/80 (95) 92 09/13/17 16:00 97.4 68 18 125/75 (92) 96 I/O 09/13/17 09/13/17 09/13/17 09/14/17 09/14/17 09/14/17 07:00 15:00 23:00 07:00 15:00 23:00 Intake Total 480 ml Balance 480 ml Intake Oral 480 ml # Voids 3 2 # Bowel Movements 1 Procedures None A/P Problem List: (1) Encephalopathy ICD Code: G93.40 - Encephalopathy Status: Acute (2) Alcohol-induced mood disorder ICD Code: F10.94 - Alcohol use, unspecified with alcohol-induced mood disorder Status: Acute (3) Debility ICD Code: R53.81 - Other malaise (4) COPD (chronic obstructive pulmonary disease) ICD Code: J44.9 - COPD (chronic obstructive pulmonary disease) Status: Chronic (5) PTSD (post-traumatic stress disorder) ICD Code: F43.10 - Post-traumatic stress disorder, unspecified Assessment and Plan 62-year-old man with 1. Aggressive behavior, encephalopathy: Patient has had significant improvement in his mental status, likely back to baseline. He was evaluated by psychiatry, and the Avelar act was lifted. Continue Seroquel, sertraline. Currently on lactulose, will check ammonia level 2. Thrombocytopenia: Chronic, at baseline. 3. Seizure disorder: Continue Depakote, Keppra. Seizure precautions. 4. PTSD, personality disorder: Appreciate psychiatry recommendations. Continue Seroquel. Trazodone daily at bedtime. 5. COPD: Taper steroids as patient currently on 30 mg by mouth prednisone. Respiratory status is at baseline. 6. Generalized weakness: Patient has chronic debility likely secondary to chronic alcohol abuse. He would benefit from further rehabilitation. PT to treat and eval 7. DVT prophylaxis: Heparin. Discharge Planning Waiting for discharge disposition Quinton Ohara MD Sep 14, 2017 14:08
[2017-09-14 16:43] VITALS: BP 140/84; PULSE 58; RESP 18; TEMP 98.1; O2SAT 95
[2017-09-14 20:00] VITALS: BP 123/78; PULSE 70; RESP 18; TEMP 97.5; O2SAT 95
[2017-09-14] MEDS: DIVALPROEX SODIUM E.R. 500 MG TAB PO SCH (21:07)
[2017-09-14] MEDS: QUEtiapine FUMARATE 25 MG TAB PO SCH (21:08)
[2017-09-14] MEDS: traZODone HCL 100 MG TAB PO SCH (21:08)
[2017-09-15] VITALS: BP 112/68; PULSE 80; RESP 19; TEMP 98.3; O2SAT 95
[2017-09-15 04:00] VITALS: BP 103/62; PULSE 75; RESP 18; TEMP 98.4; O2SAT 94
[2017-09-15] MEDS: HEPARIN SODIUM - SQ 10,000 UNITS/ML VIAL SQ SCH ×2 (05:15→18:17)
[2017-09-15 08:00] VITALS: BP 98/57; PULSE 63; RESP 16; TEMP 97.9; O2SAT 94
[2017-09-15] MEDS: LACTULOSE SYRUP 20 GM/30 ML CUP PO SCH ×2 (09:34→21:30)
[2017-09-15] MEDS: levETIRAcetam 500 MG TAB PO SCH ×2 (09:35→21:30)
[2017-09-15] MEDS: SERTRALINE HCL 100 MG TAB PO SCH (09:35)
[2017-09-15] MEDS: predniSONE 10 MG TAB PO SCH (09:35)
[2017-09-15] MEDS: DOCUSATE SODIUM 50 MG/SENNA 8.6 MG TAB PO SCH ×2 (09:35→21:30)
[2017-09-15] MEDS: SODIUM CHLORIDE 0.9% FLUSH 10 ML FLUSH IV FLUSH SCH ×2 (09:36→21:31)
--- NOTE | 2017-09-15 11:17 | HHI.PR ---
Subjective Remarks Follow-up encephalopathy 09/14/17-patient seen and examined,some confusion. Only [id number] to self 09/15/17-patient seen and examined, plans of abdominal pain along with some chest pain. Patient still is confused. Objective Vitals Vital Signs Date Time Temp Pulse Resp B/P (MAP) Pulse Ox O2 Delivery O2 Flow Rate FiO2 09/15/17 08:00 97.9 63 16 98/57 (71) 94 09/15/17 04:00 98.4 75 18 103/62 (76) 94 09/15/17 00:00 98.3 80 19 112/68 (83) 95 09/14/17 20:00 97.5 70 18 123/78 (93) 95 09/14/17 16:43 98.1 58 18 140/84 (102) 95 09/14/17 12:40 98.1 61 18 128/78 (95) 95 I/O 09/14/17 09/14/17 09/14/17 09/15/17 09/15/17 09/15/17 07:00 15:00 23:00 07:00 15:00 23:00 Intake Total 240 ml Balance 240 ml Intake Oral 240 ml # Voids 2 3 1 1 # Bowel Movements 0 0 Procedures None A/P Problem List: (1) Encephalopathy ICD Code: G93.40 - Encephalopathy Status: Acute (2) Alcohol-induced mood disorder ICD Code: F10.94 - Alcohol use, unspecified with alcohol-induced mood disorder Status: Acute (3) Debility ICD Code: R53.81 - Other malaise (4) COPD (chronic obstructive pulmonary disease) ICD Code: J44.9 - COPD (chronic obstructive pulmonary disease) Status: Chronic (5) PTSD (post-traumatic stress disorder) ICD Code: F43.10 - Post-traumatic stress disorder, unspecified Assessment and Plan 62-year-old man with 1. Aggressive behavior, encephalopathy: Patient has had significant improvement in his mental status, likely back to baseline. He was evaluated by psychiatry, and the Avelar act was lifted. Continue Seroquel, sertraline. Currently on lactulose, Ammonia level pending this AM 2. Thrombocytopenia: Chronic, at baseline. 3. Seizure disorder: Continue Depakote, Keppra. Seizure precautions. 4. PTSD, personality disorder: Appreciate psychiatry recommendations. Continue Seroquel. Trazodone daily at bedtime. 5. COPD: Taper steroids as patient currently on 30 mg by mouth prednisone. Respiratory status is at baseline. 6. Generalized weakness: Patient has chronic debility likely secondary to chronic alcohol abuse. He would benefit from further rehabilitation. PT to treat and eval 7. DVT prophylaxis: Heparin. Discharge Planning Waiting for discharge disposition Quinton Ohara MD Sep 15, 2017 11:17
[2017-09-15 12:00] VITALS: BP 92/55; PULSE 69; RESP 16; TEMP 97.9; O2SAT 94
[2017-09-15 16:00] VITALS: BP 142/78; PULSE 69; RESP 16; TEMP 97.8; O2SAT 97
[2017-09-15 20:00] VITALS: BP 124/73; PULSE 77; RESP 19; TEMP 98.9; O2SAT 96
[2017-09-15] MEDS: traZODone HCL 100 MG TAB PO SCH (21:30)
[2017-09-15] MEDS: QUEtiapine FUMARATE 25 MG TAB PO SCH (21:30)
[2017-09-15] MEDS: DIVALPROEX SODIUM E.R. 500 MG TAB PO SCH (21:30)
[2017-09-16] VITALS: BP 103/65; PULSE 67; RESP 18; TEMP 98.4; O2SAT 95
[2017-09-16 04:00] VITALS: BP 110/62; PULSE 65; RESP 20; TEMP 97.8; O2SAT 96
[2017-09-16] MEDS: HEPARIN SODIUM - SQ 10,000 UNITS/ML VIAL SQ SCH ×2 (05:38→18:03)
[2017-09-16 08:00] VITALS: BP 115/67; PULSE 59; RESP 16; TEMP 97.6; O2SAT 95
[2017-09-16] MEDS: DOCUSATE SODIUM 50 MG/SENNA 8.6 MG TAB PO SCH ×2 (09:36→21:19)
[2017-09-16] MEDS: LACTULOSE SYRUP 20 GM/30 ML CUP PO SCH ×2 (09:40→21:19)
[2017-09-16] MEDS: predniSONE 10 MG TAB PO SCH (09:40)
[2017-09-16] MEDS: levETIRAcetam 500 MG TAB PO SCH ×2 (09:40→21:20)
[2017-09-16] MEDS: SERTRALINE HCL 100 MG TAB PO SCH (09:40)
[2017-09-16] MEDS: SODIUM CHLORIDE 0.9% FLUSH 10 ML FLUSH IV FLUSH SCH ×2 (09:41→21:20)
--- NOTE | 2017-09-16 11:57 | HHI.PR ---
Subjective Remarks Follow-up encephalopathy 09/14/17-patient seen and examined,some confusion. Only [id number] to self 09/15/17-patient seen and examined, plans of abdominal pain along with some chest pain. Patient still is confused. 09/16/17-patient seen and examined, positive for confusion and vitals stable. Objective Vitals Vital Signs Date Time Temp Pulse Resp B/P (MAP) Pulse Ox O2 Delivery O2 Flow Rate FiO2 09/16/17 08:00 97.6 59 16 115/67 (83) 95 09/16/17 04:00 97.8 65 20 110/62 (78) 96 09/16/17 00:00 98.4 67 18 103/65 (78) 95 09/15/17 20:00 98.9 77 19 124/73 (90) 96 09/15/17 16:00 97.8 69 16 142/78 (99) 97 09/15/17 12:00 97.9 69 16 92/55 (67) 94 I/O 09/15/17 09/15/17 09/15/17 09/16/17 09/16/17 09/16/17 07:00 15:00 23:00 07:00 15:00 23:00 # Voids 1 # Bowel Movements 0 Procedures None A/P Problem List: (1) Encephalopathy ICD Code: G93.40 - Encephalopathy Status: Acute (2) Alcohol-induced mood disorder ICD Code: F10.94 - Alcohol use, unspecified with alcohol-induced mood disorder Status: Acute (3) Debility ICD Code: R53.81 - Other malaise (4) COPD (chronic obstructive pulmonary disease) ICD Code: J44.9 - COPD (chronic obstructive pulmonary disease) Status: Chronic (5) PTSD (post-traumatic stress disorder) ICD Code: F43.10 - Post-traumatic stress disorder, unspecified Assessment and Plan 62-year-old man with 1. Aggressive behavior, encephalopathy: Patient has had significant improvement in his mental status, likely back to baseline. He was evaluated by psychiatry, and the Avelar act was lifted. Continue Seroquel, sertraline. Currently on lactulose, Ammonia level down to 27 on 09/15/17 2. Thrombocytopenia: Chronic, at baseline. 3. Seizure disorder: Continue Depakote, Keppra. Seizure precautions. 4. PTSD, personality disorder: Appreciate psychiatry recommendations. Continue Seroquel. Trazodone daily at bedtime. 5. COPD: Taper steroids as patient currently on 30 mg by mouth prednisone. Respiratory status is at baseline. 6. Generalized weakness: Patient has chronic debility likely secondary to chronic alcohol abuse. He would benefit from further rehabilitation. PT to treat and eval 7. DVT prophylaxis: Heparin. Discharge Planning Waiting for discharge disposition Quinton Ohara MD Sep 16, 2017 11:57
[2017-09-16 12:00] VITALS: BP 139/85; PULSE 67; RESP 16; TEMP 98; O2SAT 96
[2017-09-16 16:00] VITALS: BP 146/82; PULSE 70; RESP 16; TEMP 97.2; O2SAT 98
[2017-09-16 20:00] VITALS: BP 154/84; PULSE 70; RESP 18; TEMP 98.3; O2SAT 97
[2017-09-16] MEDS: QUEtiapine FUMARATE 25 MG TAB PO SCH (21:19)
[2017-09-16] MEDS: DIVALPROEX SODIUM E.R. 500 MG TAB PO SCH (21:20)
[2017-09-16] MEDS: traZODone HCL 100 MG TAB PO SCH (21:20)
[2017-09-17] VITALS: BP 119/67; PULSE 67; RESP 18; TEMP 98.5; O2SAT 97
[2017-09-17 04:00] VITALS: BP 104/64; PULSE 70; RESP 18; TEMP 97.6; O2SAT 94
[2017-09-17] MEDS: HEPARIN SODIUM - SQ 10,000 UNITS/ML VIAL SQ SCH ×2 (06:00→17:31)
[2017-09-17 08:30] VITALS: BP 124/74; PULSE 60; RESP 17; TEMP 97.9; O2SAT 97
--- NOTE | 2017-09-17 09:33 | HHI.PR ---
Subjective Remarks Follow-up encephalopathy 09/14/17-patient seen and examined,some confusion. Only [id number] to self 09/15/17-patient seen and examined, plans of abdominal pain along with some chest pain. Patient still is confused. 09/16/17-patient seen and examined, positive for confusion and vitals stable. 09/17/17-patient seen and examined, no change and patient stable. Currently afebrile. Objective Vitals Vital Signs Date Time Temp Pulse Resp B/P (MAP) Pulse Ox O2 Delivery O2 Flow Rate FiO2 09/17/17 08:30 97.9 60 17 124/74 (91) 97 09/17/17 04:00 97.6 70 18 104/64 (77) 94 09/17/17 00:00 98.5 67 18 119/67 (84) 97 09/16/17 20:00 98.3 70 18 154/84 (107) 97 09/16/17 16:00 97.2 70 16 146/82 (103) 98 09/16/17 12:00 98.0 67 16 139/85 (103) 96 I/O 09/16/17 09/16/17 09/16/17 09/17/17 09/17/17 09/17/17 07:00 15:00 23:00 07:00 15:00 23:00 # Voids 3 # Bowel Movements 1 Imaging Last Impressions Head CT 08/28/17 0000 Signed Impressions: Service Date/Time: Monday, August 28, 2017 06:05 - CONCLUSION: 1. No acute intracranial hemorrhage. 2. Stable diffuse bilateral cortical atrophy. 3. No significant change compared to the prior exam. Wade Butler MD Cervical Spine CT 08/28/17 0000 Signed Impressions: Service Date/Time: Monday, August 28, 2017 06:08 - CONCLUSION: 1. No acute bony fracture. 2. Stable diffuse primary degenerative changes involving the cervical spine. 3. No new or significant changes. Wade Butler MD Objective Remarks GENERAL: NAD SKIN: Warm and dry. HEAD: Normocephalic. EYES: No scleral icterus. No injection or drainage. NECK: Supple, trachea midline. No JVD or lymphadenopathy. CARDIOVASCULAR: Regular rate and rhythm without murmurs, gallops, or rubs. RESPIRATORY: Breath sounds equal bilaterally. No accessory muscle use. GASTROINTESTINAL: Abdomen soft, non-tender, nondistended. MUSCULOSKELETAL: No cyanosis, or edema. BACK: Nontender without obvious deformity. No CVA tenderness. Procedures None A/P Problem List: (1) Encephalopathy ICD Code: G93.40 - Encephalopathy Status: Acute (2) Alcohol-induced mood disorder ICD Code: F10.94 - Alcohol use, unspecified with alcohol-induced mood disorder Status: Acute (3) Debility ICD Code: R53.81 - Other malaise (4) COPD (chronic obstructive pulmonary disease) ICD Code: J44.9 - COPD (chronic obstructive pulmonary disease) Status: Chronic (5) PTSD (post-traumatic stress disorder) ICD Code: F43.10 - Post-traumatic stress disorder, unspecified Assessment and Plan 62-year-old man with 1. Aggressive behavior, encephalopathy: Patient has had significant improvement in his mental status, likely back to baseline. He was evaluated by psychiatry, and the Avelar act was lifted. Continue Seroquel, sertraline. Currently on lactulose, Ammonia level down to 27 on 09/15/17 2. Thrombocytopenia: Chronic, at baseline. 3. Seizure disorder: Continue Depakote, Keppra. Seizure precautions. 4. PTSD, personality disorder: Appreciate psychiatry recommendations. Continue Seroquel. Trazodone daily at bedtime. 5. COPD: Taper steroids as patient currently on 30 mg by mouth prednisone. Respiratory status is at baseline. 6. Generalized weakness: Patient has chronic debility likely secondary to chronic alcohol abuse. He would benefit from further rehabilitation. PT to treat and eval 7. DVT prophylaxis: Heparin. Discharge Planning Waiting for discharge disposition Quinton Ohara MD Sep 17, 2017 09:33
[2017-09-17] MEDS: LACTULOSE SYRUP 20 GM/30 ML CUP PO SCH ×2 (09:51→20:56)
[2017-09-17] MEDS: predniSONE 10 MG TAB PO SCH (09:51)
[2017-09-17] MEDS: DOCUSATE SODIUM 50 MG/SENNA 8.6 MG TAB PO SCH ×2 (09:51→20:57)
[2017-09-17] MEDS: SERTRALINE HCL 100 MG TAB PO SCH (09:51)
[2017-09-17] MEDS: SODIUM CHLORIDE 0.9% FLUSH 10 ML FLUSH IV FLUSH SCH ×2 (09:51→20:57)
[2017-09-17] MEDS: levETIRAcetam 500 MG TAB PO SCH ×2 (09:51→20:56)
[2017-09-17 12:41] VITALS: BP 109/67; PULSE 57; RESP 18; TEMP 97.9; O2SAT 94
[2017-09-17 16:06] VITALS: BP 122/79; PULSE 76; RESP 18; TEMP 97.7; O2SAT 96
[2017-09-17 20:00] VITALS: BP 142/89; PULSE 72; RESP 18; TEMP 98; O2SAT 94
[2017-09-17] MEDS: traZODone HCL 100 MG TAB PO SCH (20:56)
[2017-09-17] MEDS: DIVALPROEX SODIUM E.R. 500 MG TAB PO SCH (20:56)
[2017-09-17] MEDS: QUEtiapine FUMARATE 25 MG TAB PO SCH (20:57)
[2017-09-18 00:06] VITALS: BP 115/68; PULSE 62; RESP 18; TEMP 98.1; O2SAT 96
[2017-09-18 04:20] VITALS: BP 132/79; PULSE 50; RESP 18; TEMP 97.4; O2SAT 95
[2017-09-18] MEDS: HEPARIN SODIUM - SQ 10,000 UNITS/ML VIAL SQ SCH ×2 (05:55→17:10)
[2017-09-18 08:09] VITALS: BP 141/85; PULSE 58; RESP 20; TEMP 98.1; O2SAT 98
[2017-09-18] MEDS: SODIUM CHLORIDE 0.9% FLUSH 10 ML FLUSH IV FLUSH SCH ×2 (09:00→21:33)
[2017-09-18] MEDS: LACTULOSE SYRUP 20 GM/30 ML CUP PO SCH ×2 (09:02→21:31)
[2017-09-18] MEDS: levETIRAcetam 500 MG TAB PO SCH ×2 (09:03→21:32)
[2017-09-18] MEDS: SERTRALINE HCL 100 MG TAB PO SCH (09:03)
[2017-09-18] MEDS: DOCUSATE SODIUM 50 MG/SENNA 8.6 MG TAB PO SCH ×2 (09:03→21:33)
[2017-09-18] MEDS: predniSONE 10 MG TAB PO SCH (09:03)
--- NOTE | 2017-09-18 09:42 | HHI.PR ---
Subjective Remarks Follow-up encephalopathy 09/14/17-patient seen and examined,some confusion. Only [id number] to self 09/15/17-patient seen and examined, plans of abdominal pain along with some chest pain. Patient still is confused. 09/16/17-patient seen and examined, positive for confusion and vitals stable. 09/17/17-patient seen and examined, no change and patient stable. Currently afebrile. 09/18/17-patient seen and examined, appears more lethargic today. Vitals stable Objective Vitals Vital Signs Date Time Temp Pulse Resp B/P (MAP) Pulse Ox O2 Delivery O2 Flow Rate FiO2 09/18/17 08:09 98.1 58 20 141/85 (103) 98 09/18/17 04:20 97.4 50 18 132/79 (96) 95 09/18/17 00:06 98.1 62 18 115/68 (84) 96 09/17/17 20:00 98.0 72 18 142/89 (106) 94 09/17/17 16:06 97.7 76 18 122/79 (93) 96 09/17/17 12:41 97.9 57 18 109/67 (81) 94 I/O 09/17/17 09/17/17 09/17/17 09/18/17 09/18/17 09/18/17 07:00 15:00 23:00 07:00 15:00 23:00 Intake Total 720 ml Balance 720 ml Intake Oral 720 ml # Voids 3 2 2 # Bowel Movements 1 Objective Remarks GENERAL: NAD however more somnolent SKIN: Warm and dry. HEAD: Normocephalic. EYES: No scleral icterus. No injection or drainage. NECK: Supple, trachea midline. No JVD or lymphadenopathy. CARDIOVASCULAR: Regular rate and rhythm without murmurs, gallops, or rubs. RESPIRATORY: Breath sounds equal bilaterally. No accessory muscle use. GASTROINTESTINAL: Abdomen soft, non-tender, nondistended. MUSCULOSKELETAL: No cyanosis, or edema. BACK: Nontender without obvious deformity. No CVA tenderness. Procedures None A/P Problem List: (1) Encephalopathy ICD Code: G93.40 - Encephalopathy Status: Acute (2) Alcohol-induced mood disorder ICD Code: F10.94 - Alcohol use, unspecified with alcohol-induced mood disorder Status: Acute (3) Debility ICD Code: R53.81 - Other malaise (4) COPD (chronic obstructive pulmonary disease) ICD Code: J44.9 - COPD (chronic obstructive pulmonary disease) Status: Chronic (5) PTSD (post-traumatic stress disorder) ICD Code: F43.10 - Post-traumatic stress disorder, unspecified Assessment and Plan 62-year-old man with 1. Aggressive behavior, encephalopathy: the Avelar act was lifted by psychiatry Continue Seroquel, sertraline. Currently on lactulose, Ammonia level down to 27 on 09/15/17. Check ammonia level 2. Thrombocytopenia: Chronic, at baseline. 3. Seizure disorder: Continue Depakote, Keppra. Seizure precautions. 4. PTSD, personality disorder: Appreciate psychiatry recommendations. Continue Seroquel. Trazodone daily at bedtime. 5. COPD: Taper steroids as patient currently on 30 mg by mouth prednisone. 6. Generalized weakness: Patient has chronic debility likely secondary to chronic alcohol abuse. PT to treat and eval 7. DVT prophylaxis: Heparin. Discharge Planning Waiting for discharge disposition Quinton Ohara MD Sep 18, 2017 09:42
[2017-09-18 12:09] VITALS: BP 106/65; PULSE 57; RESP 20; TEMP 98.7; O2SAT 99
[2017-09-18 15:44] VITALS: BP 134/90; PULSE 103; RESP 20; TEMP 97.9; O2SAT 94
[2017-09-18 20:00] VITALS: BP 111/67; PULSE 60; RESP 18; TEMP 98.7; O2SAT 96
[2017-09-18] MEDS: QUEtiapine FUMARATE 25 MG TAB PO SCH (21:31)
[2017-09-18] MEDS: DIVALPROEX SODIUM E.R. 500 MG TAB PO SCH (21:32)
[2017-09-18] MEDS: traZODone HCL 100 MG TAB PO SCH (21:32)
[2017-09-19 00:19] VITALS: BP 106/64; PULSE 65; RESP 17; TEMP 97.6; O2SAT 97
[2017-09-19 04:45] VITALS: BP 123/72; PULSE 54; RESP 17; TEMP 97.3; O2SAT 96
[2017-09-19] MEDS: HEPARIN SODIUM - SQ 10,000 UNITS/ML VIAL SQ SCH ×2 (06:24→17:53)
[2017-09-19 07:53] VITALS: BP 139/81; PULSE 56; RESP 20; TEMP 98; O2SAT 94
[2017-09-19] MEDS: predniSONE 10 MG TAB PO SCH (08:47)
[2017-09-19] MEDS: DOCUSATE SODIUM 50 MG/SENNA 8.6 MG TAB PO SCH ×2 (08:47→20:58)
[2017-09-19] MEDS: LACTULOSE SYRUP 20 GM/30 ML CUP PO SCH ×2 (08:48→20:57)
[2017-09-19] MEDS: levETIRAcetam 500 MG TAB PO SCH ×2 (08:48→20:58)
[2017-09-19] MEDS: SERTRALINE HCL 100 MG TAB PO SCH (08:48)
[2017-09-19] MEDS: SODIUM CHLORIDE 0.9% FLUSH 10 ML FLUSH IV FLUSH SCH ×2 (09:00→20:58)
--- NOTE | 2017-09-19 09:45 | HHI.PR ---
Subjective Remarks Follow-up encephalopathy 09/14/17-patient seen and examined,some confusion. Only [id number] to self 09/15/17-patient seen and examined, plans of abdominal pain along with some chest pain. Patient still is confused. 09/16/17-patient seen and examined, positive for confusion and vitals stable. 09/17/17-patient seen and examined, no change and patient stable. Currently afebrile. 09/18/17-patient seen and examined, appears more lethargic today. Vitals stable 09/19/17-patient seen and examined, much more alert today. Vitals stable. Patient had 2 bowel movements overnight. Objective Vitals Vital Signs Date Time Temp Pulse Resp B/P (MAP) Pulse Ox O2 Delivery O2 Flow Rate FiO2 09/19/17 07:53 98.0 56 20 139/81 (100) 94 09/19/17 04:45 97.3 54 17 123/72 (89) 96 09/19/17 00:19 97.6 65 17 106/64 (78) 97 09/18/17 20:00 98.7 60 18 111/67 (82) 96 09/18/17 15:44 97.9 103 20 134/90 (105) 94 09/18/17 12:09 98.7 57 20 106/65 (79) 99 I/O 09/18/17 09/18/17 09/18/17 09/19/17 09/19/17 09/19/17 07:00 15:00 23:00 07:00 15:00 23:00 Intake Total 720 ml 360 ml Balance 720 ml 360 ml Intake Oral 720 ml 360 ml # Voids 2 2 3 # Bowel Movements 1 Objective Remarks GENERAL: NAD SKIN: Warm and dry. HEAD: Normocephalic. EYES: No scleral icterus. No injection or drainage. NECK: Supple, trachea midline. No JVD or lymphadenopathy. CARDIOVASCULAR: Regular rate and rhythm without murmurs, gallops, or rubs. RESPIRATORY: Breath sounds equal bilaterally. No accessory muscle use. GASTROINTESTINAL: Abdomen soft, non-tender, nondistended. MUSCULOSKELETAL: No cyanosis, or edema. BACK: Nontender without obvious deformity. No CVA tenderness. Procedures None A/P Problem List: (1) Encephalopathy ICD Code: G93.40 - Encephalopathy Status: Acute (2) Alcohol-induced mood disorder ICD Code: F10.94 - Alcohol use, unspecified with alcohol-induced mood disorder Status: Acute (3) Debility ICD Code: R53.81 - Other malaise (4) COPD (chronic obstructive pulmonary disease) ICD Code: J44.9 - COPD (chronic obstructive pulmonary disease) Status: Chronic (5) PTSD (post-traumatic stress disorder) ICD Code: F43.10 - Post-traumatic stress disorder, unspecified Assessment and Plan 62-year-old man with 1. Aggressive behavior, encephalopathy: the Avelar act was lifted by psychiatry Continue Seroquel, sertraline. Currently on lactulose, Ammonia level down to 27 on 09/15/17. Check ammonia level 2. Thrombocytopenia: Chronic, at baseline. 3. Seizure disorder: Continue Depakote, Keppra. Seizure precautions. 4. PTSD, personality disorder: Appreciate psychiatry recommendations. Continue Seroquel. Trazodone daily at bedtime. 5. COPD: Taper steroids as patient currently on 30 mg by mouth prednisone. 6. Generalized weakness: Patient has chronic debility likely secondary to chronic alcohol abuse. PT to treat and eval 7. DVT prophylaxis: Heparin. Discharge Planning Waiting for discharge disposition Quinton Ohara MD Sep 19, 2017 09:45
[2017-09-19 12:25] VITALS: BP 135/78; PULSE 69; RESP 20; TEMP 98.4; O2SAT 98
[2017-09-19 15:23] VITALS: BP 121/72; PULSE 70; RESP 20; TEMP 97; O2SAT 95
[2017-09-19 20:56] VITALS: BP 142/85; PULSE 74; RESP 17; TEMP 98.9; O2SAT 96
[2017-09-19] MEDS: traZODone HCL 100 MG TAB PO SCH (20:57)
[2017-09-19] MEDS: QUEtiapine FUMARATE 25 MG TAB PO SCH (20:57)
[2017-09-19] MEDS: DIVALPROEX SODIUM E.R. 500 MG TAB PO SCH (20:58)
[2017-09-20 02:06] VITALS: BP 115/75; PULSE 78; RESP 18; TEMP 97.1; O2SAT 97
[2017-09-20] MEDS: HEPARIN SODIUM - SQ 10,000 UNITS/ML VIAL SQ SCH ×2 (05:51→17:03)
[2017-09-20 06:22] VITALS: BP 106/63; PULSE 58; RESP 20; TEMP 97.8; O2SAT 97
[2017-09-20 07:50] VITALS: BP 135/79; PULSE 58; RESP 19; TEMP 97.6; O2SAT 98
[2017-09-20] MEDS: levETIRAcetam 500 MG TAB PO SCH ×2 (08:57→20:26)
[2017-09-20] MEDS: DOCUSATE SODIUM 50 MG/SENNA 8.6 MG TAB PO SCH ×2 (08:57→20:26)
[2017-09-20] MEDS: LACTULOSE SYRUP 20 GM/30 ML CUP PO SCH ×2 (08:57→20:27)
[2017-09-20] MEDS: predniSONE 10 MG TAB PO SCH (08:57)
[2017-09-20] MEDS: SERTRALINE HCL 100 MG TAB PO SCH (08:58)
[2017-09-20] MEDS: SODIUM CHLORIDE 0.9% FLUSH 10 ML FLUSH IV FLUSH SCH ×2 (08:58→20:27)
--- NOTE | 2017-09-20 10:27 | HHI.PR ---
Subjective Remarks Follow-up encephalopathy 09/14/17-patient seen and examined,some confusion. Only [id number] to self 09/15/17-patient seen and examined, plans of abdominal pain along with some chest pain. Patient still is confused. 09/16/17-patient seen and examined, positive for confusion and vitals stable. 09/17/17-patient seen and examined, no change and patient stable. Currently afebrile. 09/18/17-patient seen and examined, appears more lethargic today. Vitals stable 09/19/17-patient seen and examined, much more alert today. Vitals stable. Patient had 2 bowel movements overnight. 09/20/17-patient seen and examined, states he had tremors overnight otherwise stable this morning Objective Vitals Vital Signs Date Time Temp Pulse Resp B/P (MAP) Pulse Ox O2 Delivery O2 Flow Rate FiO2 09/20/17 07:50 97.6 58 19 135/79 (97) 98 09/20/17 06:22 97.8 58 20 106/63 (77) 97 09/20/17 02:06 97.1 78 18 115/75 (88) 97 09/19/17 20:56 98.9 74 17 142/85 (104) 96 09/19/17 15:23 97.0 70 20 121/72 (88) 95 09/19/17 12:25 98.4 69 20 135/78 (97) 98 I/O 09/19/17 09/19/17 09/19/17 09/20/17 09/20/17 09/20/17 07:00 15:00 23:00 07:00 15:00 23:00 Intake Total 360 ml 720 ml Output Total 400 ml Balance 360 ml 320 ml Intake Oral 360 ml 720 ml Output Urine Total 400 ml # Voids 3 2 Objective Remarks GENERAL: NAD SKIN: Warm and dry. HEAD: Normocephalic. EYES: No scleral icterus. No injection or drainage. NECK: Supple, trachea midline. No JVD or lymphadenopathy. CARDIOVASCULAR: Regular rate and rhythm without murmurs, gallops, or rubs. RESPIRATORY: Breath sounds equal bilaterally. No accessory muscle use. GASTROINTESTINAL: Abdomen soft, non-tender, nondistended. MUSCULOSKELETAL: No cyanosis, or edema. BACK: Nontender without obvious deformity. No CVA tenderness. Procedures None A/P Problem List: (1) Encephalopathy ICD Code: G93.40 - Encephalopathy Status: Acute (2) Alcohol-induced mood disorder ICD Code: F10.94 - Alcohol use, unspecified with alcohol-induced mood disorder Status: Acute (3) Debility ICD Code: R53.81 - Other malaise (4) COPD (chronic obstructive pulmonary disease) ICD Code: J44.9 - COPD (chronic obstructive pulmonary disease) Status: Chronic (5) PTSD (post-traumatic stress disorder) ICD Code: F43.10 - Post-traumatic stress disorder, unspecified Assessment and Plan 62-year-old man with 1. Aggressive behavior, encephalopathy: the Avelar act was lifted by psychiatry Continue Seroquel, sertraline. Currently on lactulose, Continue to monitor NH3 level 2. Thrombocytopenia: Chronic, at baseline. 3. Seizure disorder: Continue Depakote, Keppra. Seizure precautions. 4. PTSD, personality disorder: Appreciate psychiatry recommendations. Continue Seroquel. Trazodone daily at bedtime. 5. COPD: Taper steroids as patient currently on 30 mg by mouth prednisone. 6. Generalized weakness: Patient has chronic debility likely secondary to chronic alcohol abuse. PT to treat and eval 7. DVT prophylaxis: Heparin. Discharge Planning Waiting for discharge disposition Quinton Ohara MD Sep 20, 2017 10:27
[2017-09-20 12:01] VITALS: BP 111/67; PULSE 57; RESP 18; TEMP 98.9; O2SAT 95
[2017-09-20 16:06] VITALS: BP 117/73; PULSE 69; RESP 19; TEMP 98.4; O2SAT 96
[2017-09-20 20:00] VITALS: BP 102/62; PULSE 69; RESP 18; TEMP 97.6; O2SAT 93
[2017-09-20] MEDS: traZODone HCL 100 MG TAB PO SCH (20:26)
[2017-09-20] MEDS: QUEtiapine FUMARATE 25 MG TAB PO SCH (20:26)
[2017-09-20] MEDS: DIVALPROEX SODIUM E.R. 500 MG TAB PO SCH (20:27)
[2017-09-21] VITALS: BP 116/66; PULSE 75; RESP 18; TEMP 98.9; O2SAT 97
[2017-09-21 04:00] VITALS: BP 102/62; PULSE 65; RESP 18; TEMP 98.2; O2SAT 95
[2017-09-21] MEDS: HEPARIN SODIUM - SQ 10,000 UNITS/ML VIAL SQ SCH ×2 (05:48→18:00)
[2017-09-21 08:00] VITALS: BP 108/67; PULSE 62; RESP 17; TEMP 97.8; O2SAT 98
[2017-09-21] MEDS: LACTULOSE SYRUP 20 GM/30 ML CUP PO SCH ×2 (09:59→21:06)
[2017-09-21] MEDS: DOCUSATE SODIUM 50 MG/SENNA 8.6 MG TAB PO SCH ×2 (09:59→21:06)
[2017-09-21] MEDS: predniSONE 10 MG TAB PO SCH (10:00)
[2017-09-21] MEDS: SODIUM CHLORIDE 0.9% FLUSH 10 ML FLUSH IV FLUSH SCH ×2 (10:00→21:07)
[2017-09-21] MEDS: SERTRALINE HCL 100 MG TAB PO SCH (10:00)
[2017-09-21] MEDS: levETIRAcetam 500 MG TAB PO SCH ×2 (10:00→21:07)
[2017-09-21 11:37] VITALS: BP 100/60; PULSE 60; RESP 18; TEMP 97.3; O2SAT 98
--- NOTE | 2017-09-21 11:50 | HHI.PR ---
Subjective Remarks Follow-up encephalopathy 09/14/17-patient seen and examined,some confusion. Only [id number] to self 09/15/17-patient seen and examined, plans of abdominal pain along with some chest pain. Patient still is confused. 09/16/17-patient seen and examined, positive for confusion and vitals stable. 09/17/17-patient seen and examined, no change and patient stable. Currently afebrile. 09/18/17-patient seen and examined, appears more lethargic today. Vitals stable 09/19/17-patient seen and examined, much more alert today. Vitals stable. Patient had 2 bowel movements overnight. 09/20/17-patient seen and examined, states he had tremors overnight otherwise stable this morning 09/21/17-patient seen and examined, states he didn't have good a night sleep. Objective Vitals Vital Signs Date Time Temp Pulse Resp B/P (MAP) Pulse Ox O2 Delivery O2 Flow Rate FiO2 09/21/17 11:37 97.3 60 18 100/60 (73) 98 09/21/17 08:00 97.8 62 17 108/67 (81) 98 09/21/17 04:00 98.2 65 18 102/62 (75) 95 09/21/17 00:00 98.9 75 18 116/66 (83) 97 09/20/17 20:00 97.6 69 18 102/62 (75) 93 09/20/17 16:06 98.4 69 19 117/73 (88) 96 09/20/17 12:01 98.9 57 18 111/67 (82) 95 I/O 09/20/17 09/20/17 09/20/17 09/21/17 09/21/17 09/21/17 07:00 15:00 23:00 07:00 15:00 23:00 Intake Total 960 ml Balance 960 ml Intake Oral 960 ml # Voids 2 3 Objective Remarks GENERAL: NAD SKIN: Warm and dry. HEAD: Normocephalic. EYES: No scleral icterus. No injection or drainage. NECK: Supple, trachea midline. No JVD or lymphadenopathy. CARDIOVASCULAR: Regular rate and rhythm without murmurs, gallops, or rubs. RESPIRATORY: Breath sounds equal bilaterally. No accessory muscle use. GASTROINTESTINAL: Abdomen soft, non-tender, nondistended. MUSCULOSKELETAL: No cyanosis, or edema. BACK: Nontender without obvious deformity. No CVA tenderness. Procedures None A/P Problem List: (1) Encephalopathy ICD Code: G93.40 - Encephalopathy Status: Acute (2) Alcohol-induced mood disorder ICD Code: F10.94 - Alcohol use, unspecified with alcohol-induced mood disorder Status: Acute (3) Debility ICD Code: R53.81 - Other malaise (4) COPD (chronic obstructive pulmonary disease) ICD Code: J44.9 - COPD (chronic obstructive pulmonary disease) Status: Chronic (5) PTSD (post-traumatic stress disorder) ICD Code: F43.10 - Post-traumatic stress disorder, unspecified Assessment and Plan 62-year-old man with 1. Aggressive behavior, encephalopathy: the Avelar act was lifted by psychiatry Continue Seroquel, sertraline. Currently on lactulose, Continue to monitor NH3 level 2. Thrombocytopenia: Chronic, at baseline. 3. Seizure disorder: Continue Depakote, Keppra. Seizure precautions. 4. PTSD, personality disorder: Appreciate psychiatry recommendations. Continue Seroquel. Trazodone daily at bedtime. 5. COPD: d/c 30 mg by mouth prednisone. Duo Neb PRN 6. Generalized weakness: Patient has chronic debility likely secondary to chronic alcohol abuse. PT to treat and eval 7. DVT prophylaxis: Heparin. Discharge Planning Waiting for discharge disposition Quinton Ohara MD Sep 21, 2017 11:50
[2017-09-21 16:26] VITALS: BP 110/64; PULSE 65; RESP 18; TEMP 98.1; O2SAT 98
[2017-09-21 20:28] VITALS: BP 163/95; PULSE 66; RESP 18; TEMP 97.7; O2SAT 92
[2017-09-21] MEDS: QUEtiapine FUMARATE 25 MG TAB PO SCH (21:07)
[2017-09-21] MEDS: traZODone HCL 100 MG TAB PO SCH (21:07)
[2017-09-21] MEDS: DIVALPROEX SODIUM E.R. 500 MG TAB PO SCH (21:07)
[2017-09-22 00:37] VITALS: BP_SYST 83; BP_SYST 93; BP_DIAS 53; PULSE 87; RESP 18; TEMP 97.4; O2SAT 95
[2017-09-22 05:37] VITALS: BP 108/63; PULSE 68; RESP 18; TEMP 98; O2SAT 97
[2017-09-22] MEDS: HEPARIN SODIUM - SQ 10,000 UNITS/ML VIAL SQ SCH ×2 (05:40→17:35)
[2017-09-22 08:06] VITALS: BP_SYST 106; BP_SYST 93; BP_DIAS 59; BP_DIAS 66; PULSE 63; RESP 20; TEMP 97.6; O2SAT 94
[2017-09-22] MEDS: levETIRAcetam 500 MG TAB PO SCH ×2 (08:18→21:11)
[2017-09-22] MEDS: SERTRALINE HCL 100 MG TAB PO SCH (08:18)
[2017-09-22] MEDS: DOCUSATE SODIUM 50 MG/SENNA 8.6 MG TAB PO SCH ×2 (08:18→21:11)
[2017-09-22] MEDS: LACTULOSE SYRUP 20 GM/30 ML CUP PO SCH ×2 (08:18→21:11)
[2017-09-22] MEDS: SODIUM CHLORIDE 0.9% FLUSH 10 ML FLUSH IV FLUSH SCH ×2 (09:00→21:11)
--- NOTE | 2017-09-22 10:24 | HHI.PR ---
Subjective Remarks patient is awake and alert denied any pain, nausea or vomiting Objective Vitals Vital Signs Date Time Temp Pulse Resp B/P (MAP) Pulse Ox O2 Delivery O2 Flow Rate FiO2 09/22/17 08:06 97.6 63 20 93/59 (70) 94 106/66 (79) 09/22/17 05:37 98.0 68 18 108/63 (78) 97 09/22/17 00:37 97.4 87 18 93/53 (66) 95 09/21/17 20:28 97.7 66 18 163/95 (117) 92 09/21/17 16:26 98.1 65 18 110/64 (79) 98 09/21/17 11:37 97.3 60 18 100/60 (73) 98 I/O 09/21/17 09/21/17 09/21/17 09/22/17 09/22/17 09/22/17 06:59 14:59 22:59 06:59 14:59 22:59 Intake Total 480 ml 60 ml Balance 480 ml 60 ml Intake Oral 480 ml 60 ml # Voids 2 3 # Bowel Movements 1 Imaging Last Impressions Head CT 08/28/17 0000 Signed Impressions: Service Date/Time: Monday, August 28, 2017 06:05 - CONCLUSION: 1. No acute intracranial hemorrhage. 2. Stable diffuse bilateral cortical atrophy. 3. No significant change compared to the prior exam. Wade Butler MD Cervical Spine CT 08/28/17 0000 Signed Impressions: Service Date/Time: Monday, August 28, 2017 06:08 - CONCLUSION: 1. No acute bony fracture. 2. Stable diffuse primary degenerative changes involving the cervical spine. 3. No new or significant changes. Wade Butler MD Objective Remarks alert, oriented x e anicteric lungs- no rales regular rhythm abdomen- soft, good bowel sounds extremities no edema, some intention tremors Procedures None A/P Problem List: (1) Encephalopathy ICD Code: G93.40 - Encephalopathy Status: Acute (2) Alcohol-induced mood disorder ICD Code: F10.94 - Alcohol use, unspecified with alcohol-induced mood disorder Status: Acute (3) Debility ICD Code: R53.81 - Other malaise (4) COPD (chronic obstructive pulmonary disease) ICD Code: J44.9 - COPD (chronic obstructive pulmonary disease) Status: Chronic (5) PTSD (post-traumatic stress disorder) ICD Code: F43.10 - Post-traumatic stress disorder, unspecified Assessment and Plan 62-year-old man with 1. Aggressive behavior, encephalopathy: - Improved the Avelar act was lifted by psychiatry Continue Seroquel, sertraline. Currently on lactulose, Continue to monitor NH3 level 2. Thrombocytopenia: Chronic, at baseline. 3. Seizure disorder: Continue Depakote, Keppra. Seizure precautions. 4. PTSD, personality disorder: Appreciate psychiatry recommendations. Continue Seroquel. Trazodone daily at bedtime. 5. COPD: - in remission Duo Neb PRN 6. Generalized weakness: Patient has chronic debility likely secondary to chronic alcohol abuse. PT to treat and eval 7. DVT prophylaxis: Heparin. Discharge Planning Waiting for discharge disposition- CM assisting us- [facility] Ivett Velez MD Sep 22, 2017 10:24
[2017-09-22 11:24] VITALS: BP 105/69; PULSE 64; RESP 20; TEMP 98; O2SAT 98
[2017-09-22 16:40] VITALS: BP 102/64; PULSE 72; RESP 20; TEMP 98.6; O2SAT 98
[2017-09-22] MEDS: hydrOXYzine HCL 50 MG TAB PO PRN (17:35)
[2017-09-22] MEDS: MAGNESIUM HYDROXIDE SUSP 30 ML CUP PO PRN (17:35)
[2017-09-22 20:00] VITALS: BP 108/64; PULSE 83; RESP 18; TEMP 98.9; O2SAT 100
[2017-09-22] MEDS: DIVALPROEX SODIUM E.R. 500 MG TAB PO SCH (21:11)
[2017-09-22] MEDS: traZODone HCL 100 MG TAB PO SCH (21:11)
[2017-09-22] MEDS: QUEtiapine FUMARATE 25 MG TAB PO SCH (21:11)
[2017-09-23 00:53] VITALS: BP 123/72; PULSE 102; RESP 18; TEMP 97.2; O2SAT 94
[2017-09-23 05:22] VITALS: BP 119/69; PULSE 95; RESP 18; TEMP 97.2; O2SAT 93
[2017-09-23] MEDS: HEPARIN SODIUM - SQ 10,000 UNITS/ML VIAL SQ SCH (06:14)
[2017-09-23 08:23] VITALS: BP 109/67; PULSE 93; RESP 18; TEMP 101.1; O2SAT 95
[2017-09-23] MEDS: SODIUM CHLORIDE 0.9% FLUSH 10 ML FLUSH IV FLUSH SCH ×2 (09:00→20:50)
[2017-09-23] MEDS: LACTULOSE SYRUP 20 GM/30 ML CUP PO SCH ×2 (09:00→20:49)
--- NOTE | 2017-09-23 09:16 | HHI.PR ---
Subjective Remarks T Kim was having difficulty urinating and incontinent all night per aide complaining of suprapubic discomfort girlfriend reported blood in urine Objective Vitals Vital Signs Date Time Temp Pulse Resp B/P (MAP) Pulse Ox O2 Delivery O2 Flow Rate FiO2 09/23/17 08:23 101.1 93 18 109/67 (81) 95 09/23/17 05:22 97.2 95 18 119/69 (86) 93 09/23/17 00:53 97.2 102 18 123/72 (89) 94 09/22/17 20:00 98.9 83 18 108/64 (79) 100 09/22/17 16:40 98.6 72 20 102/64 (77) 98 09/22/17 11:24 98.0 64 20 105/69 (81) 98 I/O 09/22/17 09/22/17 09/22/17 09/23/17 09/23/17 09/23/17 07:00 15:00 23:00 07:00 15:00 23:00 Intake Total 60 ml 940 ml 120 ml Balance 60 ml 940 ml 120 ml Intake Oral 60 ml 940 ml 120 ml # Voids 3 3 2 # Bowel Movements 1 Imaging Last Impressions Head CT 08/28/17 0000 Signed Impressions: Service Date/Time: Monday, August 28, 2017 06:05 - CONCLUSION: 1. No acute intracranial hemorrhage. 2. Stable diffuse bilateral cortical atrophy. 3. No significant change compared to the prior exam. Wade Butler MD Cervical Spine CT 08/28/17 0000 Signed Impressions: Service Date/Time: Monday, August 28, 2017 06:08 - CONCLUSION: 1. No acute bony fracture. 2. Stable diffuse primary degenerative changes involving the cervical spine. 3. No new or significant changes. Wade Butler MD Objective Remarks alert, oriented x 3 anicteric lungs- no rales regular rhythm abdomen- soft, good bowel sounds extremities no edema, some intention tremors Procedures None A/P Problem List: (1) Encephalopathy ICD Code: G93.40 - Encephalopathy Status: Acute (2) Alcohol-induced mood disorder ICD Code: F10.94 - Alcohol use, unspecified with alcohol-induced mood disorder Status: Acute (3) Debility ICD Code: R53.81 - Other malaise (4) COPD (chronic obstructive pulmonary disease) ICD Code: J44.9 - COPD (chronic obstructive pulmonary disease) Status: Chronic (5) PTSD (post-traumatic stress disorder) ICD Code: F43.10 - Post-traumatic stress disorder, unspecified Assessment and Plan 62-year-old man with FEver [facility]- UTI report difficulty urination and GF reported some hematuria get UA , CBC, blood culture, bladder scan condom catheter- if unable to pee- straight cath start antibiotics - Levaquin + pyridium Aggressive behavior, encephalopathy: - Improved the Avelar act was lifted by psychiatry Continue Seroquel, sertraline. Currently on lactulose Thrombocytopenia: Chronic, at baseline. Seizure disorder: Continue Depakote, Keppra. Seizure precautions. PTSD, personality disorder: Appreciate psychiatry recommendations. Continue Seroquel. Trazodone daily at bedtime. COPD: - in remission Duo Neb PRN Generalized weakness: Patient has chronic debility likely secondary to chronic alcohol abuse. PT - treat and eval DVT prophylaxis: Heparin-hold with reported hematuria Discharge Planning Waiting for discharge disposition- CM assisting us- [facility] Ivett Velez MD Sep 23, 2017 09:16
[2017-09-23] MEDS: levETIRAcetam 500 MG TAB PO SCH ×2 (09:30→20:49)
[2017-09-23] MEDS: DOCUSATE SODIUM 50 MG/SENNA 8.6 MG TAB PO SCH ×2 (09:31→20:49)
[2017-09-23] MEDS: SERTRALINE HCL 100 MG TAB PO SCH (09:31)
[2017-09-23] MEDS: ACETAMINOPHEN 325 MG TAB PO PRN (10:04)
[2017-09-23 11:21] LABS: BACTERIA, URINE FEW /hpf; BILIRUBIN, URINE NEG (NEG); BLOOD, URINE LARGE (NEG); GLUCOSE,URINE NEG (NEG); KETONE, URINE NEG (NEG); MUCUS URINE FEW /lpf (OCC); NITRITE,URINE NEG (NEG); PH, URINE 8.5 (5.0-8.5); SQUAMOUS EPITHELIAL CELL URINE 1 /hpf (0-5); URINE COLOR YELLOW (YELLW/STRAW); URINE LEUKOCYTE ESTERASE LARGE (NEG)
[2017-09-23 12:26] VITALS: BP 98/62; PULSE 87; RESP 18; TEMP 100.7; O2SAT 94
[2017-09-23 12:40] LABS: AUTOMATED NEUTROPHIL # 11.5 TH/MM3 (1.8-7.7); BASOPHIL % 0.3 % (0.0-2.0); EOSINOPHIL % 0.1 % (0.0-4.0); HEMATOCRIT 36.9 % (39.0-51.0); HEMOGLOBIN 12.6 GM/DL (13.0-17.0); LYMPH % 12.8 % (9.0-44.0); LYMPHOCYTE # 1.9 TH/MM3 (1.0-4.8); MEAN CELL VOLUME 88.8 FL (80.0-100.0); MEAN CORPUSCULAR HEMOGLOBIN 30.4 PG (27.0-34.0); MEAN CORPUSCULAR HGB CONC 34.2 % (32.0-36.0); MEAN PLATELET VOLUME 8.1 FL (7.0-11.0); MONO % 8.8 % (0.0-8.0); MONOCYTE # 1.3 TH/MM3 (0-0.9); PLATELET COUNT 86 TH/MM3 (150-450); RED BLOOD COUNT 4.16 MIL/MM3 (4.50-5.90); RED CELL DISTRIBUTION WIDTH 14.9 % (11.6-17.2); WHITE BLOOD COUNT 14.8 TH/MM3 (4.0-11.0)
[2017-09-23 13:03] LABS: ALBUMIN 2.8 GM/DL (3.4-5.0); ALT (GPT) 16 U/L (12-78); AST (GOT) 20 U/L (15-37); BICARBONATE 31.3 MEQ/L (21.0-32.0); BLOOD UREA NITROGEN 18 MG/DL (7-18); CALCIUM 8.8 MG/DL (8.5-10.1); CHLORIDE 100 MEQ/L (98-107); CREATININE 1.16 MG/DL (0.60-1.30); GLOMERULAR FILTRATION RATE 64 ML/MIN (>89); GLUCOSE,RANDOM 85 MG/DL (74-106); SODIUM (NA) 137 MEQ/L (136-145)
[2017-09-23 13:06] LABS: ALKALINE PHOSPHATASE 49 U/L (45-117); TOTAL BILIRUBIN ADULT 0.5 MG/DL (0.2-1.0); TOTAL PROTEIN 6.9 GM/DL (6.4-8.2)
[2017-09-23 13:28] LABS: BANDS 18 % (0-6); LYMPHOCYTES 11 % (9-44); METAMYELOCYTES 1 % (0-1); MONOCYTES 8 % (0-8); POLYS (SEG NEUTROPHILS) 62 % (16-70)
[2017-09-23] MEDS: LEVOFLOXACIN 500 MG PREMIX INJ 100 ML IV SCH (15:29)
[2017-09-23] MEDS: D5-NS + KCL 20 MEQ INJ 1,000 ML IV SCH (15:31)
[2017-09-23] MEDS: PHENAZOPYRIDINE HCL 200 MG TAB PO SCH ×2 (15:38→20:50)
[2017-09-23 20:00] VITALS: BP 114/57; PULSE 86; RESP 18; TEMP 97; O2SAT 96
[2017-09-23] MEDS: traZODone HCL 100 MG TAB PO SCH (20:49)
[2017-09-23] MEDS: DIVALPROEX SODIUM E.R. 500 MG TAB PO SCH (20:49)
[2017-09-23] MEDS: QUEtiapine FUMARATE 25 MG TAB PO SCH (20:49)
[2017-09-24] VITALS: BP 100/79; PULSE 93; RESP 18; TEMP 97.6; O2SAT 98
[2017-09-24] MEDS: D5-NS + KCL 20 MEQ INJ 1,000 ML IV SCH ×2 (03:35→16:40)
[2017-09-24] MEDS: PHENAZOPYRIDINE HCL 200 MG TAB PO SCH ×3 (06:17→21:14)
[2017-09-24 07:24] LABS: AUTOMATED NEUTROPHIL # 11.6 TH/MM3 (1.8-7.7); BASOPHIL # 0.1 TH/MM3 (0-0.2); BASOPHIL % 0.4 % (0.0-2.0); EOSINOPHIL % 0.1 % (0.0-4.0); HEMOGLOBIN 12.2 GM/DL (13.0-17.0); LYMPH % 13.6 % (9.0-44.0); MEAN CELL VOLUME 91.2 FL (80.0-100.0); MEAN CORPUSCULAR HGB CONC 33.9 % (32.0-36.0); MEAN PLATELET VOLUME 8.7 FL (7.0-11.0); NEUT % 78.9 % (16.0-70.0); PLATELET COUNT 63 TH/MM3 (150-450); RED BLOOD COUNT 3.95 MIL/MM3 (4.50-5.90); RED CELL DISTRIBUTION WIDTH 14.7 % (11.6-17.2); WHITE BLOOD COUNT 14.7 TH/MM3 (4.0-11.0)
[2017-09-24 07:36] LABS: BICARBONATE 28.1 MEQ/L (21.0-32.0); CALCIUM 8.4 MG/DL (8.5-10.1); CREATININE 1.11 MG/DL (0.60-1.30)
[2017-09-24 08:50] VITALS: BP 90/53; PULSE 71; RESP 16; TEMP 98.1; O2SAT 95
[2017-09-24] MEDS: SODIUM CHLORIDE 0.9% FLUSH 10 ML FLUSH IV FLUSH SCH ×2 (09:00→21:14)
[2017-09-24] MEDS: levETIRAcetam 500 MG TAB PO SCH ×2 (09:10→21:14)
[2017-09-24] MEDS: SERTRALINE HCL 100 MG TAB PO SCH (09:10)
[2017-09-24] MEDS: DOCUSATE SODIUM 50 MG/SENNA 8.6 MG TAB PO SCH ×2 (09:11→21:14)
[2017-09-24] MEDS: LACTULOSE SYRUP 20 GM/30 ML CUP PO SCH ×2 (09:11→21:14)
--- NOTE | 2017-09-24 09:29 | HHI.PR ---
Subjective Remarks patient feels very depressed "just want to and leave me alone" awake and alert states feels nauseated incontinence- bladder feels distended on exam Objective Vitals Vital Signs Date Time Temp Pulse Resp B/P (MAP) Pulse Ox O2 Delivery O2 Flow Rate FiO2 09/24/17 08:50 98.1 71 16 90/53 (65) 95 09/24/17 00:00 97.6 93 18 100/79 (86) 98 09/23/17 20:00 97.0 86 18 114/57 (76) 96 09/23/17 12:26 100.7 87 18 98/62 (74) 94 I/O 09/23/17 09/23/17 09/23/17 09/24/17 09/24/17 09/24/17 07:00 15:00 23:00 07:00 15:00 23:00 Output Total 100 ml 250 ml Balance -100 ml -250 ml Output Urine Total 100 ml 250 ml Bladder Scan Volume Amount 10 ml # Voids 2 2 2 Result Diagram: 09/24/17 0655 09/24/17 0655 Imaging Last Impressions Head CT 08/28/17 0000 Signed Impressions: Service Date/Time: Monday, August 28, 2017 06:05 - CONCLUSION: 1. No acute intracranial hemorrhage. 2. Stable diffuse bilateral cortical atrophy. 3. No significant change compared to the prior exam. Wade Butler MD Cervical Spine CT 08/28/17 0000 Signed Impressions: Service Date/Time: Monday, August 28, 2017 06:08 - CONCLUSION: 1. No acute bony fracture. 2. Stable diffuse primary degenerative changes involving the cervical spine. 3. No new or significant changes. Wade Butler MD Objective Remarks alert, oriented x 3, angry and does not want to be botheres anicteric lungs- no rales regular rhythm abdomen- soft, good bowel sounds, bladder feels distended extremities no edema Procedures None A/P Problem List: (1) Encephalopathy ICD Code: G93.40 - Encephalopathy Status: Acute (2) Alcohol-induced mood disorder ICD Code: F10.94 - Alcohol use, unspecified with alcohol-induced mood disorder Status: Acute (3) Debility ICD Code: R53.81 - Other malaise (4) COPD (chronic obstructive pulmonary disease) ICD Code: J44.9 - COPD (chronic obstructive pulmonary disease) Status: Chronic (5) PTSD (post-traumatic stress disorder) ICD Code: F43.10 - Post-traumatic stress disorder, unspecified Assessment and Plan 62-year-old man with UTI - r/o underlying obstructive uropathy Elevated PSA report difficulty urination and GF reported hematuria Urology consult get renal US, bladder continue on antibiotics - Levaquin + pyridium Aggressive behavior, encephalopathy: - now depressed PTSD, personality disorder: the Avelar act was lifted by psychiatry Continue Seroquel, sertraline. reconsult Psychiatry Thrombocytopenia: Chronic, at baseline. Seizure disorder: Continue Depakote, Keppra. Seizure precautions. COPD: - in remission Duo Neb PRN Generalized weakness: Patient has chronic debility likely secondary to chronic alcohol abuse. PT - treat and eval DVT prophylaxis: Heparin-hold with reported hematuria Discharge Planning Waiting for discharge disposition- CM assisting us- [facility] Ivett Velez MD Sep 24, 2017 09:29
[2017-09-24 09:37] LABS: BANDS 11 % (0-6); LYMPHOCYTES 7 % (9-44); MONOCYTES 7 % (0-8); NEUTROPHIL # MANUAL DIFF 12.6 TH/MM3 (1.8-7.7); POLYS (SEG NEUTROPHILS) 75 % (16-70)
[2017-09-24 09:38] LABS: TOXIC VACUOLATION PRESENT (NONE SEEN)
--- NOTE | 2017-09-24 10:16 | RADRPT ---
EXAM DATE/TIME: 09/24/2017 09:53 [facility] COMPARISON: No previous studies available for comparison. INDICATIONS : Urosepsis. MEDICAL HISTORY : Dementia. Seizures. Hypercholesterolemia. Hearing loss. Head trauma. Irregular heartbeat. Hypertensio n. COPD. Pancreatitis. Cirrhosis. Gout. Diabetes. PTSD. Bipolar disorder. Depression. Anxiety. Measle s. Hep C and B. SURGICAL HISTORY : Tonsillectomy. Cholecystectomy. Appendectomy. Left hip surgery. ENCOUNTER: Initial ACUITY: 1 day PAIN SCORE: 0/10 LOCATION: Bilateral flank MEASUREMENTS: RIGHT KIDNEY: 11.5 x 5.3 x 5.4 cm LEFT KIDNEY: 11.3 x 4.9 x 5.2 cm FINDINGS: RIGHT KIDNEY: Renal cortex is normal in thickness and echotexture. No hydronephrosis, stone, or mass. LEFT KIDNEY: Renal cortex is normal in thickness and echotexture. No hydronephrosis, stone, or mass. BLADDER: Within normal limits given the degree of distension. CONCLUSION: Negative for stone or obstruction. Silvestre Iniguez MD FACR on September 24, 2017 at 10:13 Board Certified Radiologist. This report was verified electronically.
--- NOTE | 2017-09-24 10:42 | MB ---
cc: PEBBLES ANDRES DATE OF CONSULTATION 09/24/2017 REASON FOR CONSULTATION Mr. Peters is a 62-year-old male who has a long medical history with a recent findings of hematuria and an elevation of his PSA. He denies prior incidence of hematuria. The patient is somewhat difficult to obtain a history due to his prior history of PTSD. He denies any family history of prostate cancer. Denies any stones or prior infections. He was undergoing a renal/bladder ultrasound at the bedside and preliminary results indicate normal upper tracts and normal bladder without bladder wall thickening and without any bladder masses identified. Bladder was not over distended. He does admit to nocturia x2 in the past. PAST MEDICAL HISTORY His medical history includes: 1. A seizure disorder 2. Bipolar disorders 3. Gout 4. Chronic low back pain 5. COPD 6. Hypertension 7. Chronic pancreatitis 8. Hepatitis B and C 9. Alcohol abuse 10. Dyslipidemia PAST SURGICAL HISTORY 1. Appendectomy 2. Tonsillectomy 3. Left femur fracture repair MEDICATIONS For medications, please refer to the chart. ALLERGIES He has NO KNOWN DRUG ALLERGIES. FAMILY HISTORY He denies any family history of prostate cancer. SOCIAL HISTORY Prior history of alcohol abuse and prior smoking history. REVIEW OF SYSTEMS Notes hematuria today. Denies chest pain, shortness of breath. Denies abdominal pain. Denies diarrhea or constipation. The remaining review of systems were reviewed and were negative. PHYSICAL EXAM VITAL SIGNS: Today, his temperature is 91, heart rate 71, respiratory 16, BP 90/53. GENERAL: He is a well, well-nourished 59-year-old male in no acute stress. HEENT: Normocephalic, atraumatic. Pupils equal, round, regular and reactive to light. Extraocular movements intact. HEART: Regular rate and rhythm. LUNGS: Clear. ABDOMEN: Soft, nontender and nondistended. : Normal phallus. Testes descended. The patient refused rectal exam. EXTREMITIES: Show evidence of no cyanosis, clubbing or edema. LABORATORY DATA White count today is 14.7, hemoglobin 12.2, hematocrit 36.0, platelet count of 63,000. Sodium 137, potassium 3.6, chloride 103, CO2 28.1, BUN of 19, creatinine 1.1, glucose of 90. Urinalysis shows large blood with large leukoesterase, 147 white cells. Culture is currently pending. Preliminary ultrasound results show normal kidneys bilaterally and a normal bladder. ASSESSMENT This is a 59-year-old male with evidence of hematuria and appears to be a urinary tract infection with an elevation of his PSA. Would treat the urinary tract infection and check culture results. Continue on antibiotics for now. We will start Flomax 0.4 mg p.o. q.h.s. to help reduce nocturia and promote bladder emptying. Once infection has cleared, we will need to repeat the PSA and the urinalysis on an outpatient basis. Thank you for the consult and allowing me to participate in the care of this patient. Pebbles CHUN /10:04 AM /10:11 AM
[2017-09-24] MEDS: TAMSULOSIN HCL 0.4 MG CAP PO SCH (11:27)
[2017-09-24 12:48] VITALS: BP 93/52; PULSE 80; RESP 16; TEMP 97.5; O2SAT 93
--- NOTE | 2017-09-24 13:00 | HHI.PYPN ---
Subjective Remarks Patient was seen today for psychiatric reevaluation. Chart review. On psychiatric evaluation today the patient is very lethargic, he doesn't dissipated psychiatric interview due to the level of lethargy, as per nursing charge the patient has been psychomotor retarded, very depressed, expressing symptoms of depression, such as frustration, feeling anxious, and is stating that he doesn't want to live anymore. Review of Systems ROS Limitations: Altered Mental Status, Uncooperative Except as stated in HPI: all other systems reviewed are Neg Mental Status Examination Appearance: Appropriate Consciousness: Alert Orientation: Person, Place, Date/Time Motor Activity: Normal gait Speech: Unremarkable Language: Adequate Fund of Knowledge: Inadequate Attention and Concentration: Adequate Memory: Impaired Mood: Appropriate Affect: Appropriate Thought Process & Associations: Intact, Linear Thought Content: Appropriate Hallucination Type: None Delusion Type: None Suicidal Ideation: No Suicidal Plan: No Suicidal Intention: No Homicidal Ideation: No Homicidal Plan: No Homicidal Intention: No Insight: Fair Judgment: Impulsive Results Labs Test 09/24/17 06:55 09/24/17 07:52 White Blood Count 14.7 TH/MM3 Red Blood Count 3.95 MIL/MM3 Hemoglobin 12.2 GM/DL Hematocrit 36.0 % Mean Corpuscular Volume 91.2 FL Mean Corpuscular Hemoglobin 31.0 PG Mean Corpuscular Hemoglobin Concent 33.9 % Red Cell Distribution Width 14.7 % Platelet Count 63 TH/MM3 Mean Platelet Volume 8.7 FL Neutrophils (%) (Auto) 78.9 % Lymphocytes (%) (Auto) 13.6 % Monocytes (%) (Auto) 7.0 % Eosinophils (%) (Auto) 0.1 % Basophils (%) (Auto) 0.4 % Neutrophils # (Auto) 11.6 TH/MM3 Lymphocytes # (Auto) 2.0 TH/MM3 Monocytes # (Auto) 1.0 TH/MM3 Eosinophils # (Auto) 0.0 TH/MM3 Basophils # (Auto) 0.1 TH/MM3 CBC Comment AUTO DIFF Differential Total Cells Counted 100 Neutrophils % (Manual) 75 % Band Neutrophils % 11 % Lymphocytes % 7 % Monocytes % 7 % Neutrophils # (Manual) 12.6 TH/MM3 Differential Comment FINAL DIFF MANUAL Toxic Vacuolation PRESENT Platelet Estimate LOW Platelet Morphology Comment NORMAL Blood Urea Nitrogen 19 MG/DL Creatinine 1.11 MG/DL Random Glucose 90 MG/DL Calcium Level 8.4 MG/DL Sodium Level 137 MEQ/L Potassium Level 3.6 MEQ/L Chloride Level 102 MEQ/L Carbon Dioxide Level 28.1 MEQ/L Anion Gap 7 MEQ/L Estimat Glomerular Filtration Rate 67 ML/MIN Prostate Specific Antigen Screen 10.58 NG/ML Date/Time Source Procedure Growth Status 09/23/17 12:00 Blood Peripheral Aerobic Blood Culture - Preliminary NO GROWTH IN 1 DAY Resulted 09/23/17 12:00 Blood Peripheral Anaerobic Blood Culture - Preliminary NO GROWTH IN 1 DAY Resulted 09/23/17 10:18 Urine Clean Catch Urine Culture - Preliminary Gram Negative Darnell Resulted Vitals/IOs Vital Signs Date Time Temp Pulse Resp B/P (MAP) Pulse Ox O2 Delivery O2 Flow Rate FiO2 09/24/17 12:48 97.5 80 16 93/52 (66) 93 Intake and Output 09/24/17 09/24/17 09/25/17 08:00 16:00 00:00 Output Total 250 ml Balance -250 ml Assessment & Plan Problem List: (1) Delirium due to another medical condition ICD Codes: F05 - Delirium due to known physiological condition Assessment & Plan: Patient is very lethargic, sedated. I will order Depakote levels. Patient benefit of reducing psychotropics due to sedation. I will follow-up. (2) Hyperammonemia ICD Codes: E72.20 - Disorder of urea cycle metabolism, unspecified Assessment & Plan: No psychiatric admission Assessment & Plan Estimated LOS: days Justification for Cont. Inpt. No psychiatric admission indicated Gary Ornelas MD Sep 24, 2017 13:00
[2017-09-24] MEDS: LEVOFLOXACIN 500 MG PREMIX INJ 100 ML IV SCH (14:10)
[2017-09-24 17:53] VITALS: BP 115/72; PULSE 76; RESP 20; TEMP 97.9; O2SAT 96
[2017-09-24 20:00] VITALS: BP_SYST 116; BP_SYST 124; BP_DIAS 58; BP_DIAS 69; PULSE 70; PULSE 76; RESP 17; TEMP 98.4; TEMP 98.5; O2SAT 96; O2SAT 97
[2017-09-24 20:28] VITALS: BP 114/80; PULSE 73; RESP 18; TEMP 98.4; O2SAT 95
[2017-09-24] MEDS: QUEtiapine FUMARATE 25 MG TAB PO SCH (21:14)
[2017-09-24] MEDS: DIVALPROEX SODIUM E.R. 500 MG TAB PO SCH (21:14)
[2017-09-24] MEDS: traZODone HCL 100 MG TAB PO SCH (21:14)
[2017-09-25 00:49] VITALS: BP 131/78; PULSE 79; RESP 18; TEMP 98.4; O2SAT 94
[2017-09-25 04:58] VITALS: BP 125/71; PULSE 86; RESP 18; TEMP 99.4; O2SAT 94
[2017-09-25] MEDS: PHENAZOPYRIDINE HCL 200 MG TAB PO SCH (05:54)
[2017-09-25] MEDS: D5-NS + KCL 20 MEQ INJ 1,000 ML IV SCH (05:58)
[2017-09-25 06:01] VITALS: TEMP 99
[2017-09-25 08:00] VITALS: BP 115/64; PULSE 80; RESP 16; TEMP 98.5; O2SAT 94
[2017-09-25] MEDS: DOCUSATE SODIUM 50 MG/SENNA 8.6 MG TAB PO SCH ×2 (09:17→21:15)
[2017-09-25] MEDS: LACTULOSE SYRUP 20 GM/30 ML CUP PO SCH ×2 (09:17→21:15)
[2017-09-25] MEDS: SODIUM CHLORIDE 0.9% FLUSH 10 ML FLUSH IV FLUSH SCH ×2 (09:18→21:00)
[2017-09-25] MEDS: TAMSULOSIN HCL 0.4 MG CAP PO SCH (09:18)
[2017-09-25] MEDS: levETIRAcetam 500 MG TAB PO SCH ×2 (09:18→21:16)
[2017-09-25] MEDS: SERTRALINE HCL 100 MG TAB PO SCH (09:18)
--- NOTE | 2017-09-25 10:59 | HHI.PR ---
Subjective Remarks patient voiding spontaneously afebrile no complains of pain Objective Vitals Vital Signs Date Time Temp Pulse Resp B/P (MAP) Pulse Ox O2 Delivery O2 Flow Rate FiO2 09/25/17 08:00 98.5 80 16 115/64 (81) 94 09/25/17 06:01 99.0 09/25/17 04:58 99.4 86 18 125/71 (89) 94 09/25/17 00:49 98.4 79 18 131/78 (95) 94 09/24/17 20:28 98.4 73 18 114/80 (91) 95 09/24/17 17:53 97.9 76 20 115/72 (86) 96 09/24/17 12:48 97.5 80 16 93/52 (66) 93 I/O 09/24/17 09/24/17 09/24/17 09/25/17 09/25/17 09/25/17 07:00 15:00 23:00 07:00 15:00 23:00 Intake Total 419 ml 1000 ml Output Total 250 ml Balance -250 ml 419 ml 1000 ml IV Total 419 ml 1000 ml Output Urine Total 250 ml # Voids 3 Result Diagram: 09/24/17 0655 09/24/17 0655 Objective Remarks alert, oriented x 3, not as irritable anicteric lungs- no rales regular rhythm abdomen- soft, good bowel sounds, nontender extremities no edema Procedures None A/P Problem List: (1) Encephalopathy ICD Code: G93.40 - Encephalopathy Status: Acute (2) Alcohol-induced mood disorder ICD Code: F10.94 - Alcohol use, unspecified with alcohol-induced mood disorder Status: Acute (3) Debility ICD Code: R53.81 - Other malaise (4) COPD (chronic obstructive pulmonary disease) ICD Code: J44.9 - COPD (chronic obstructive pulmonary disease) Status: Chronic (5) PTSD (post-traumatic stress disorder) ICD Code: F43.10 - Post-traumatic stress disorder, unspecified Assessment and Plan 62-year-old man with UTI - E coli Elevated PSA Urology consult- OP ff up Unremarkable renal US, bladder continue on antibiotics - Levaquin - S/P Pyridium course Aggressive behavior, PTSD, personality disorder: the Avelar act was lifted by psychiatry Continue Seroquel, sertraline. Thrombocytopenia: Chronic, at baseline. Seizure disorder: Continue Depakote, Keppra. Seizure precautions. COPD: - in remission Duo Neb PRN Generalized weakness: Patient has chronic debility likely secondary to chronic alcohol abuse. PT daily DVT prophylaxis: Urine dark- from Pyridium Start Lovenox Discharge Planning Waiting for discharge disposition- CM assisting us- [facility] Ivett Velez MD Sep 25, 2017 10:59
[2017-09-25 12:00] VITALS: BP 110/68; PULSE 78; RESP 16; TEMP 98.6; O2SAT 94
[2017-09-25] MEDS: ENOXAPARIN SODIUM 30 MG/0.3 ML SYRINGE SQ SCH (12:28)
[2017-09-25] MEDS: LEVOFLOXACIN 500 MG PREMIX INJ 100 ML IV SCH (14:26)
[2017-09-25 16:00] VITALS: BP 109/76; PULSE 76; RESP 16; TEMP 98.5; O2SAT 97
[2017-09-25] MEDS: traZODone HCL 100 MG TAB PO SCH (21:15)
[2017-09-25] MEDS: QUEtiapine FUMARATE 25 MG TAB PO SCH (21:15)
[2017-09-25] MEDS: DIVALPROEX SODIUM E.R. 500 MG TAB PO SCH (21:15)
[2017-09-26 04:00] VITALS: BP 129/87; PULSE 73; RESP 17; TEMP 98.1; O2SAT 94
[2017-09-26 08:00] VITALS: BP 103/62; PULSE 61; RESP 16; TEMP 98.3; O2SAT 93
[2017-09-26] MEDS: levETIRAcetam 500 MG TAB PO SCH ×2 (09:37→21:18)
[2017-09-26] MEDS: DOCUSATE SODIUM 50 MG/SENNA 8.6 MG TAB PO SCH ×2 (09:37→21:00)
[2017-09-26] MEDS: SERTRALINE HCL 100 MG TAB PO SCH (09:37)
[2017-09-26] MEDS: LEVOFLOXACIN 500 MG TAB PO SCH (09:37)
[2017-09-26] MEDS: TAMSULOSIN HCL 0.4 MG CAP PO SCH (09:37)
[2017-09-26] MEDS: LACTULOSE SYRUP 20 GM/30 ML CUP PO SCH ×2 (09:38→21:18)
[2017-09-26] MEDS: SODIUM CHLORIDE 0.9% FLUSH 10 ML FLUSH IV FLUSH SCH ×2 (09:38→21:00)
--- NOTE | 2017-09-26 10:52 | HHI.PR ---
Subjective Remarks patient awake and alert state urine flow better but still slight burning afebrile no flank pain Objective Vitals Vital Signs Date Time Temp Pulse Resp B/P (MAP) Pulse Ox O2 Delivery O2 Flow Rate FiO2 09/26/17 08:00 98.3 61 16 103/62 (76) 93 09/26/17 04:00 98.1 73 17 129/87 (101) 94 09/25/17 16:00 98.5 76 16 109/76 (87) 97 09/25/17 12:00 98.6 78 16 110/68 (82) 94 I/O 09/25/17 09/25/17 09/25/17 09/26/17 09/26/17 09/26/17 07:00 15:00 23:00 07:00 15:00 23:00 Intake Total 1000 ml 120 ml Balance 1000 ml 120 ml Intake Oral 120 ml IV Total 1000 ml # Voids 3 4 Result Diagram: 09/24/17 0655 09/24/17 0655 Imaging Last Impressions Renal Ultrasound 09/24/17 0000 Signed Impressions: Service Date/Time: Sunday, September 24, 2017 09:53 - CONCLUSION: Negative for stone or obstruction. Silvestre Iniguez MD FACR Head CT 08/28/17 0000 Signed Impressions: Service Date/Time: Monday, August 28, 2017 06:05 - CONCLUSION: 1. No acute intracranial hemorrhage. 2. Stable diffuse bilateral cortical atrophy. 3. No significant change compared to the prior exam. Wade Butler MD Cervical Spine CT 08/28/17 0000 Signed Impressions: Service Date/Time: Monday, August 28, 2017 06:08 - CONCLUSION: 1. No acute bony fracture. 2. Stable diffuse primary degenerative changes involving the cervical spine. 3. No new or significant changes. Wade Butler MD Objective Remarks alert, oriented x 3, anicteric lungs- no rales regular rhythm abdomen- soft, good bowel sounds, nontender extremities no edema Procedures None A/P Problem List: (1) Encephalopathy ICD Code: G93.40 - Encephalopathy Status: Acute (2) Alcohol-induced mood disorder ICD Code: F10.94 - Alcohol use, unspecified with alcohol-induced mood disorder Status: Acute (3) Debility ICD Code: R53.81 - Other malaise (4) COPD (chronic obstructive pulmonary disease) ICD Code: J44.9 - COPD (chronic obstructive pulmonary disease) Status: Chronic (5) PTSD (post-traumatic stress disorder) ICD Code: F43.10 - Post-traumatic stress disorder, unspecified Assessment and Plan 62-year-old man with UTI - E coli Elevated PSA Urology consult- OP ff up Unremarkable renal US, bladder continue on antibiotics - Levaquin - S/P Pyridium course Aggressive behavior, PTSD, personality disorder: the Avelar act was lifted by psychiatry Continue Seroquel, sertraline. Thrombocytopenia: Chronic, at baseline. Seizure disorder: Continue Depakote, Keppra. Seizure precautions. COPD: - in remission Duo Neb PRN Generalized weakness: Patient has chronic debility likely secondary to chronic alcohol abuse. PT daily DVT prophylaxis: Urine dark- from Pyridium Lovenox Discharge Planning Waiting for discharge disposition- CM assisting us- [facility]- [facility] we will hear from them tomorrow Ivett Hernandes MD Sep 26, 2017 10:52
[2017-09-26] MEDS: ENOXAPARIN SODIUM 30 MG/0.3 ML SYRINGE SQ SCH ×2 (12:00→13:06)
[2017-09-26 20:00] VITALS: BP 108/57; PULSE 62; RESP 17; TEMP 97.5; O2SAT 92
[2017-09-26] MEDS: traZODone HCL 100 MG TAB PO SCH (21:18)
[2017-09-26] MEDS: QUEtiapine FUMARATE 25 MG TAB PO SCH (21:18)
[2017-09-26] MEDS: DIVALPROEX SODIUM E.R. 500 MG TAB PO SCH (21:18)
[2017-09-27] VITALS: BP 141/96; PULSE 90; RESP 18; TEMP 97.7; O2SAT 99
[2017-09-27 04:00] VITALS: BP 123/86; PULSE 91; RESP 17; TEMP 97.8; O2SAT 98
[2017-09-27 07:57] VITALS: BP 107/70; PULSE 65; RESP 18; TEMP 97.9; O2SAT 94
[2017-09-27] MEDS: DOCUSATE SODIUM 50 MG/SENNA 8.6 MG TAB PO SCH ×2 (09:00→21:07)
[2017-09-27] MEDS: LEVOFLOXACIN 500 MG TAB PO SCH (09:23)
[2017-09-27] MEDS: TAMSULOSIN HCL 0.4 MG CAP PO SCH (09:23)
[2017-09-27] MEDS: levETIRAcetam 500 MG TAB PO SCH ×2 (09:23→21:07)
[2017-09-27] MEDS: SODIUM CHLORIDE 0.9% FLUSH 10 ML FLUSH IV FLUSH SCH ×2 (09:23→21:08)
[2017-09-27] MEDS: LACTULOSE SYRUP 20 GM/30 ML CUP PO SCH ×2 (09:23→21:08)
[2017-09-27] MEDS: SERTRALINE HCL 100 MG TAB PO SCH (09:24)
--- NOTE | 2017-09-27 10:04 | HHI.PR ---
Subjective Remarks no dysuria- described it as "flushing better" no abdominal pain, nausea or vomiting Objective Vitals Vital Signs Date Time Temp Pulse Resp B/P (MAP) Pulse Ox O2 Delivery O2 Flow Rate FiO2 09/27/17 07:57 97.9 65 18 107/70 (82) 94 09/27/17 04:00 97.8 91 17 123/86 (98) 98 09/27/17 00:00 97.7 90 18 141/96 (111) 99 09/26/17 20:00 97.5 62 17 108/57 (74) 92 I/O 09/26/17 09/26/17 09/26/17 09/27/17 09/27/17 09/27/17 07:00 15:00 23:00 07:00 15:00 23:00 Intake Total 120 ml 120 ml Balance 120 ml 120 ml Intake Oral 120 ml 120 ml # Voids 4 1 Result Diagram: 09/24/17 0655 09/24/17 0655 Imaging Last Impressions Renal Ultrasound 09/24/17 0000 Signed Impressions: Service Date/Time: Sunday, September 24, 2017 09:53 - CONCLUSION: Negative for stone or obstruction. Silvestre Iniguez MD FACR Head CT 08/28/17 0000 Signed Impressions: Service Date/Time: Monday, August 28, 2017 06:05 - CONCLUSION: 1. No acute intracranial hemorrhage. 2. Stable diffuse bilateral cortical atrophy. 3. No significant change compared to the prior exam. Wade Butler MD Cervical Spine CT 08/28/17 0000 Signed Impressions: Service Date/Time: Monday, August 28, 2017 06:08 - CONCLUSION: 1. No acute bony fracture. 2. Stable diffuse primary degenerative changes involving the cervical spine. 3. No new or significant changes. Wade Butler MD Objective Remarks alert, oriented x 3, anicteric lungs- no rales regular rhythm abdomen- soft, good bowel sounds, nontender extremities no edema Procedures None A/P Problem List: (1) Encephalopathy ICD Code: G93.40 - Encephalopathy Status: Acute (2) Alcohol-induced mood disorder ICD Code: F10.94 - Alcohol use, unspecified with alcohol-induced mood disorder Status: Acute (3) Debility ICD Code: R53.81 - Other malaise (4) COPD (chronic obstructive pulmonary disease) ICD Code: J44.9 - COPD (chronic obstructive pulmonary disease) Status: Chronic (5) PTSD (post-traumatic stress disorder) ICD Code: F43.10 - Post-traumatic stress disorder, unspecified Assessment and Plan 62-year-old man with UTI - E coli Elevated PSA Urology consult- OP ff up Unremarkable renal US, bladder continue on antibiotics - Levaquin -po S/P Pyridium course Aggressive behavior, PTSD, personality disorder: the Avelar act was lifted by psychiatry Continue Seroquel, sertraline. Thrombocytopenia: Chronic, at baseline. Seizure disorder: Continue Depakote, Keppra. Seizure precautions. COPD: - in remission Duo Neb PRN Generalized weakness: Patient has chronic debility likely secondary to chronic alcohol abuse. PT daily DVT prophylaxis: Urine dark- from Pyridium Lovenox Discharge Planning Waiting for discharge disposition- CM assisting us- [facility]- [facility] we will hear from them today Ivett Hernandes MD Sep 27, 2017 10:04
[2017-09-27] MEDS: ENOXAPARIN SODIUM 30 MG/0.3 ML SYRINGE SQ SCH (11:40)
[2017-09-27 11:54] VITALS: BP 114/69; PULSE 64; RESP 18; TEMP 97.7; O2SAT 95
[2017-09-27 16:13] VITALS: BP 121/81; PULSE 70; RESP 18; TEMP 97.5; O2SAT 98
[2017-09-27 20:53] VITALS: BP 143/83; PULSE 72; RESP 18; TEMP 97.1; O2SAT 94
[2017-09-27] MEDS: traZODone HCL 100 MG TAB PO SCH (21:07)
[2017-09-27] MEDS: QUEtiapine FUMARATE 25 MG TAB PO SCH (21:07)
[2017-09-27] MEDS: DIVALPROEX SODIUM E.R. 500 MG TAB PO SCH (21:08)
[2017-09-27] MEDS: traMADol HCL 50 MG TAB PO PRN (21:48)
[2017-09-28 01:37] VITALS: BP 116/78; PULSE 78; RESP 20; TEMP 97.6; O2SAT 97
[2017-09-28 08:47] VITALS: BP 136/83; PULSE 64; RESP 18; TEMP 98; O2SAT 97
[2017-09-28] MEDS: DOCUSATE SODIUM 50 MG/SENNA 8.6 MG TAB PO SCH ×2 (09:00→20:01)
[2017-09-28] MEDS: SODIUM CHLORIDE 0.9% FLUSH 10 ML FLUSH IV FLUSH SCH ×2 (09:13→20:03)
[2017-09-28] MEDS: SERTRALINE HCL 100 MG TAB PO SCH (09:14)
[2017-09-28] MEDS: LACTULOSE SYRUP 20 GM/30 ML CUP PO SCH ×2 (09:14→20:01)
[2017-09-28] MEDS: levETIRAcetam 500 MG TAB PO SCH ×2 (09:14→20:01)
[2017-09-28] MEDS: LEVOFLOXACIN 500 MG TAB PO SCH (09:14)
[2017-09-28] MEDS: TAMSULOSIN HCL 0.4 MG CAP PO SCH (09:14)
[2017-09-28] MEDS: ENOXAPARIN SODIUM 30 MG/0.3 ML SYRINGE SQ SCH (12:07)
[2017-09-28 12:38] VITALS: BP 111/63; PULSE 62; RESP 18; TEMP 98.1; O2SAT 95
--- NOTE | 2017-09-28 12:46 | HHI.PR ---
Subjective Remarks no complains voiding well with no discomfort Objective Vitals Vital Signs Date Time Temp Pulse Resp B/P (MAP) Pulse Ox O2 Delivery O2 Flow Rate FiO2 09/28/17 12:38 98.1 62 18 111/63 (79) 95 09/28/17 08:47 98.0 64 18 136/83 (100) 97 09/28/17 01:37 97.6 78 20 116/78 (91) 97 09/27/17 20:53 97.1 72 18 143/83 (103) 94 09/27/17 16:13 97.5 70 18 121/81 (94) 98 I/O 09/27/17 09/27/17 09/27/17 09/28/17 09/28/17 09/28/17 06:59 14:59 22:59 06:59 14:59 22:59 Intake Total 120 ml 240 ml Output Total 60 ml Balance 120 ml 180 ml Intake Oral 120 ml 240 ml Output Urine Total 60 ml Bladder Scan Volume Amount 20 ml # Voids 1 3 2 # Bowel Movements 1 Result Diagram: 09/24/17 0655 09/24/17 0655 Imaging Last Impressions Renal Ultrasound 09/24/17 0000 Signed Impressions: Service Date/Time: Sunday, September 24, 2017 09:53 - CONCLUSION: Negative for stone or obstruction. Silvestre Iniguez MD FACR Head CT 08/28/17 0000 Signed Impressions: Service Date/Time: Monday, August 28, 2017 06:05 - CONCLUSION: 1. No acute intracranial hemorrhage. 2. Stable diffuse bilateral cortical atrophy. 3. No significant change compared to the prior exam. Wade Butler MD Cervical Spine CT 08/28/17 0000 Signed Impressions: Service Date/Time: Monday, August 28, 2017 06:08 - CONCLUSION: 1. No acute bony fracture. 2. Stable diffuse primary degenerative changes involving the cervical spine. 3. No new or significant changes. Wade Butler MD Objective Remarks alert, oriented x 3, anicteric lungs- no rales regular rhythm abdomen- soft, good bowel sounds, nontender extremities no edema Procedures None A/P Problem List: (1) Encephalopathy ICD Code: G93.40 - Encephalopathy Status: Acute (2) Alcohol-induced mood disorder ICD Code: F10.94 - Alcohol use, unspecified with alcohol-induced mood disorder Status: Acute (3) Debility ICD Code: R53.81 - Other malaise (4) COPD (chronic obstructive pulmonary disease) ICD Code: J44.9 - COPD (chronic obstructive pulmonary disease) Status: Chronic (5) PTSD (post-traumatic stress disorder) ICD Code: F43.10 - Post-traumatic stress disorder, unspecified Assessment and Plan 62-year-old man with UTI - E coli Elevated PSA Urology consulted- OP ff up- repeat PSA as OP after UTI tx Unremarkable renal US, bladder continue on Levaquin started 09/23 S/P Pyridium course Aggressive behavior, PTSD, personality disorder: the Avelar act was lifted by psychiatry Continue Seroquel, sertraline. Thrombocytopenia: Chronic, at baseline. Seizure disorder: Continue Depakote, Keppra. Seizure precautions. COPD: - in remission Duo Neb PRN Generalized weakness: Patient has chronic debility likely secondary to chronic alcohol abuse. PT daily DVT prophylaxis: Urine dark- from Pyridium Lovenox Discharge Planning Waiting for discharge disposition- CM assisting us- [facility]- [facility] we will hear from them soon Ivett Hernandes MD Sep 28, 2017 12:45
[2017-09-28 16:51] VITALS: BP 120/66; PULSE 65; RESP 18; TEMP 97.9; O2SAT 97
[2017-09-28] MEDS: hydrOXYzine HCL 50 MG TAB PO PRN (18:08)
[2017-09-28] MEDS: QUEtiapine FUMARATE 25 MG TAB PO SCH (20:01)
[2017-09-28] MEDS: traZODone HCL 100 MG TAB PO SCH (20:01)
[2017-09-28] MEDS: DIVALPROEX SODIUM E.R. 500 MG TAB PO SCH (20:02)
[2017-09-28 20:05] VITALS: BP 138/85; PULSE 65; RESP 18; TEMP 98.7; O2SAT 95
[2017-09-29 04:00] VITALS: BP 92/60; PULSE 66; RESP 18; TEMP 98.4; O2SAT 93
[2017-09-29 06:27] VITALS: BP 106/61
[2017-09-29 08:00] VITALS: BP 100/60; PULSE 61; RESP 16; TEMP 97.9; O2SAT 94
[2017-09-29] MEDS: TAMSULOSIN HCL 0.4 MG CAP PO SCH (09:44)
[2017-09-29] MEDS: LEVOFLOXACIN 500 MG TAB PO SCH (09:44)
[2017-09-29] MEDS: levETIRAcetam 500 MG TAB PO SCH ×2 (09:44→21:33)
[2017-09-29] MEDS: SERTRALINE HCL 100 MG TAB PO SCH (09:45)
[2017-09-29] MEDS: DOCUSATE SODIUM 50 MG/SENNA 8.6 MG TAB PO SCH ×2 (09:45→21:33)
[2017-09-29] MEDS: SODIUM CHLORIDE 0.9% FLUSH 10 ML FLUSH IV FLUSH SCH ×2 (09:46→21:34)
[2017-09-29] MEDS: LACTULOSE SYRUP 20 GM/30 ML CUP PO SCH ×2 (09:46→21:32)
[2017-09-29 12:00] VITALS: BP 102/59; PULSE 61; RESP 16; TEMP 97.8; O2SAT 96
--- NOTE | 2017-09-29 12:50 | HHI.PR ---
Subjective Remarks Follow-up visit for UTI, elevated PSA, seizure disorder, PTSD with aggressive behavior and COPD. Patient seen and examined resting in bed comfortably, complains of abdominal pain but does not go into detail in regards to location, quality, or duration of pain. He is sleepy and does not fully participate in interview or exam. Discussed with nurse who states patient has not complained of any pain to her today, she does not report any acute concerns. Objective Vitals Vital Signs Date Time Temp Pulse Resp B/P (MAP) Pulse Ox O2 Delivery O2 Flow Rate FiO2 09/29/17 08:00 97.9 61 16 100/60 (73) 94 09/29/17 06:27 106/61 (76) 09/29/17 04:00 98.4 66 18 92/60 (71) 93 09/28/17 20:05 98.7 65 18 138/85 (102) 95 09/28/17 16:51 97.9 65 18 120/66 (84) 97 I/O 09/28/17 09/28/17 09/28/17 09/29/17 09/29/17 09/29/17 07:00 15:00 23:00 07:00 15:00 23:00 Bladder Scan Volume Amount 20 ml # Voids 2 3 4 Imaging Last Impressions Renal Ultrasound 09/24/17 0000 Signed Impressions: Service Date/Time: Sunday, September 24, 2017 09:53 - CONCLUSION: Negative for stone or obstruction. Silvestre Iniguez MD FACR Head CT 08/28/17 0000 Signed Impressions: Service Date/Time: Monday, August 28, 2017 06:05 - CONCLUSION: 1. No acute intracranial hemorrhage. 2. Stable diffuse bilateral cortical atrophy. 3. No significant change compared to the prior exam. Wade Butler MD Cervical Spine CT 08/28/17 0000 Signed Impressions: Service Date/Time: Monday, August 28, 2017 06:08 - CONCLUSION: 1. No acute bony fracture. 2. Stable diffuse primary degenerative changes involving the cervical spine. 3. No new or significant changes. Wade Butler MD Objective Remarks GENERAL: Resting comfortably on his right side in NAD SKIN: Warm and dry. HEAD: Normocephalic. EYES: No scleral icterus. No injection or drainage. NECK: Supple, trachea midline. No JVD. CARDIOVASCULAR: Regular rate and rhythm without murmurs, gallops, or rubs. RESPIRATORY: Breath sounds equal bilaterally, poor effort. No accessory muscle use. GASTROINTESTINAL: Abdomen soft, round, non-tender, nondistended. Normoactive bowel sounds in all quadrants. MUSCULOSKELETAL: No cyanosis, or edema. NEUROLOGIC: Able to respond oriented x1, moves all extremities, speech is clear. Procedures None A/P Problem List: (1) Encephalopathy ICD Code: G93.40 - Encephalopathy Status: Acute (2) Alcohol-induced mood disorder ICD Code: F10.94 - Alcohol use, unspecified with alcohol-induced mood disorder Status: Acute (3) Debility ICD Code: R53.81 - Other malaise (4) COPD (chronic obstructive pulmonary disease) ICD Code: J44.9 - COPD (chronic obstructive pulmonary disease) Status: Chronic (5) PTSD (post-traumatic stress disorder) ICD Code: F43.10 - Post-traumatic stress disorder, unspecified Assessment and Plan 62-year-old man with UTI growing E. Coli Elevated PSA - Continue Levaquin (started on 09/26) - Drop in WBC count this AM to 3.6, continue monitoring periodically -Urology consulted for elevated PSA, recommendations appreciated -Complete course of antibiotics, continue Flomax, repeat UA and PSA on an outpatient basis. Aggressive behavior, encephalopathy: the Avelar act was lifted by psychiatry Continue Seroquel, sertraline. Currently on lactulose, Ammonia level on 09/22 was 39 Thrombocytopenia: -Chronic, at baseline. PLTs this AM 105, H&H stable with no reported bleeding. Seizure disorder: -Continue Depakote, Keppra. Seizure precautions. PTSD, personality disorder: -Appreciate psychiatry recommendations. -Continue Seroquel. Trazodone daily at bedtime. COPD: -s/p Prednisone taper, currently stable on room air. Generalized weakness: - Patient has chronic debility likely secondary to chronic alcohol abuse. - Continue PT DVT prophylaxis: Heparin. Discussed with nurse, continue monitoring reported abdominal pain today. Patient has been having bowel movements. Rina Quinn Sep 29, 2017 12:50
[2017-09-29 13:19] LABS: AUTOMATED NEUTROPHIL # 1.2 TH/MM3 (1.8-7.7); BASOPHIL % 0.5 % (0.0-2.0); EOSINOPHIL % 1.4 % (0.0-4.0); HEMATOCRIT 37.2 % (39.0-51.0); HEMOGLOBIN 12.6 GM/DL (13.0-17.0); LYMPH % 47.5 % (9.0-44.0); LYMPHOCYTE # 1.7 TH/MM3 (1.0-4.8); MEAN CELL VOLUME 89.4 FL (80.0-100.0); MEAN CORPUSCULAR HEMOGLOBIN 30.3 PG (27.0-34.0); MEAN CORPUSCULAR HGB CONC 33.9 % (32.0-36.0); MEAN PLATELET VOLUME 7.4 FL (7.0-11.0); MONO % 16.1 % (0.0-8.0); MONOCYTE # 0.6 TH/MM3 (0-0.9); NEUT % 34.5 % (16.0-70.0); PLATELET COUNT 105 TH/MM3 (150-450); RED BLOOD COUNT 4.16 MIL/MM3 (4.50-5.90); RED CELL DISTRIBUTION WIDTH 14.1 % (11.6-17.2); WHITE BLOOD COUNT 3.6 TH/MM3 (4.0-11.0)
[2017-09-29] MEDS: ENOXAPARIN SODIUM 30 MG/0.3 ML SYRINGE SQ SCH (14:00)
[2017-09-29] MEDS: traMADol HCL 50 MG TAB PO PRN (14:01)
[2017-09-29 14:10] LABS: BANDS 3 % (0-6); BASOPHILS 1 % (0-2); LYMPHOCYTES 46 % (9-44); METAMYELOCYTES 1 % (0-1); MONOCYTES 18 % (0-8); MYELOCYTES 3 % (0-0); NEUTROPHIL # MANUAL DIFF 1.3 TH/MM3 (1.8-7.7); POLYS (SEG NEUTROPHILS) 28 % (16-70)
[2017-09-29 20:00] VITALS: BP 126/94; PULSE 62; RESP 18; TEMP 97.7; O2SAT 98
[2017-09-29] MEDS: traZODone HCL 100 MG TAB PO SCH (21:32)
[2017-09-29] MEDS: DIVALPROEX SODIUM E.R. 500 MG TAB PO SCH (21:33)
[2017-09-29] MEDS: QUEtiapine FUMARATE 25 MG TAB PO SCH (21:33)
[2017-09-30] VITALS: BP 122/68; PULSE 98; RESP 21; TEMP 98.2; O2SAT 94
[2017-09-30 04:00] VITALS: BP 120/65; PULSE 61; RESP 19; TEMP 97.9; O2SAT 97
[2017-09-30 08:00] VITALS: BP 121/71; PULSE 56; RESP 16; TEMP 98.2; O2SAT 92
[2017-09-30] MEDS: SODIUM CHLORIDE 0.9% FLUSH 10 ML FLUSH IV FLUSH SCH ×2 (09:00→21:21)
[2017-09-30] MEDS: levETIRAcetam 500 MG TAB PO SCH ×2 (10:23→21:18)
[2017-09-30] MEDS: TAMSULOSIN HCL 0.4 MG CAP PO SCH (10:24)
[2017-09-30] MEDS: DOCUSATE SODIUM 50 MG/SENNA 8.6 MG TAB PO SCH ×2 (10:25→21:20)
[2017-09-30] MEDS: LEVOFLOXACIN 500 MG TAB PO SCH (10:26)
[2017-09-30] MEDS: SERTRALINE HCL 100 MG TAB PO SCH (10:27)
[2017-09-30] MEDS: LACTULOSE SYRUP 20 GM/30 ML CUP PO SCH ×2 (10:28→21:22)
[2017-09-30] MEDS: traMADol HCL 50 MG TAB PO PRN ×2 (10:32→18:40)
--- NOTE | 2017-09-30 11:12 | HHI.PR ---
Subjective Remarks in bed appears in nad. No n/bv//dc. No events overnight Objective Vitals Vital Signs Date Time Temp Pulse Resp B/P (MAP) Pulse Ox O2 Delivery O2 Flow Rate FiO2 09/30/17 08:00 98.2 56 16 121/71 (88) 92 09/30/17 04:00 97.9 61 19 120/65 (83) 97 09/30/17 00:00 98.2 98 21 122/68 (86) 94 09/29/17 20:00 97.7 62 18 126/94 (105) 98 09/29/17 12:00 97.8 61 16 102/59 (73) 96 I/O 09/29/17 09/29/17 09/29/17 09/30/17 09/30/17 09/30/17 07:00 15:00 23:00 07:00 15:00 23:00 # Voids 4 Result Diagram: 09/29/17 1250 Imaging Objective Remarks GENERAL: Resting comfortably HEAD: Normocephalic. EYES: No scleral icterus. No injection or drainage. NECK: Supple, trachea midline. No JVD. CARDIOVASCULAR: Regular rate and rhythm without murmurs, gallops, or rubs. RESPIRATORY: Breath sounds equal bilaterally, poor effort. No accessory muscle use. GASTROINTESTINAL: Abdomen soft, round, non-tender, nondistended. Normoactive bowel sounds in all quadrants. MUSCULOSKELETAL: No cyanosis, or edema. NEUROLOGIC: Able to respond oriented x1, moves all extremities, speech is clear. Procedures None A/P Problem List: (1) Encephalopathy ICD Code: G93.40 - Encephalopathy Status: Acute (2) Alcohol-induced mood disorder ICD Code: F10.94 - Alcohol use, unspecified with alcohol-induced mood disorder Status: Acute (3) Debility ICD Code: R53.81 - Other malaise (4) COPD (chronic obstructive pulmonary disease) ICD Code: J44.9 - COPD (chronic obstructive pulmonary disease) Status: Chronic (5) PTSD (post-traumatic stress disorder) ICD Code: F43.10 - Post-traumatic stress disorder, unspecified Assessment and Plan 62-year-old man with UTI growing E. Coli Elevated PSA - Continue Levaquin (started on 09/26) - Drop in WBC count this AM to 3.6, continue monitoring periodically -Urology consulted for elevated PSA, recommendations appreciated -Complete course of antibiotics, continue Flomax, repeat UA and PSA on an outpatient basis. Aggressive behavior, encephalopathy: the Avelra act was lifted by psychiatry Continue Seroquel, sertraline. Currently on lactulose, Ammonia level on 09/22 was 39 Thrombocytopenia: -Chronic, at baseline. PLTs this AM 105, H&H stable with no reported bleeding. Seizure disorder: -Continue Depakote, Keppra. Seizure precautions. PTSD, personality disorder: -Appreciate psychiatry recommendations. -Continue Seroquel. Trazodone daily at bedtime. COPD: -s/p Prednisone taper, currently stable on room air. Generalized weakness: - Patient has chronic debility likely secondary to chronic alcohol abuse. - Continue PT DVT prophylaxis: Heparin. Discussed with nurse, pt. Iris Hanson MD Sep 30, 2017 11:12
[2017-09-30] MEDS: ENOXAPARIN SODIUM 30 MG/0.3 ML SYRINGE SQ SCH (15:06)
[2017-09-30] MEDS: QUEtiapine FUMARATE 25 MG TAB PO SCH (21:19)
[2017-09-30] MEDS: DIVALPROEX SODIUM E.R. 500 MG TAB PO SCH (21:19)
[2017-09-30] MEDS: traZODone HCL 100 MG TAB PO SCH (21:21)
[2017-09-30 22:00] VITALS: BP 128/69; PULSE 67; RESP 20; TEMP 98.8; O2SAT 95
[2017-10-01 01:00] VITALS: BP 130/62; PULSE 64; RESP 20; TEMP 98.1; O2SAT 94
[2017-10-01 05:50] VITALS: BP 120/62; PULSE 60; RESP 18; TEMP 97.6; O2SAT 95
[2017-10-01 08:00] VITALS: BP 123/83; PULSE 61; RESP 18; TEMP 98.3; O2SAT 95
[2017-10-01] MEDS: DOCUSATE SODIUM 50 MG/SENNA 8.6 MG TAB PO SCH ×2 (09:00→20:44)
[2017-10-01] MEDS: SODIUM CHLORIDE 0.9% FLUSH 10 ML FLUSH IV FLUSH SCH ×2 (10:40→20:42)
[2017-10-01] MEDS: TAMSULOSIN HCL 0.4 MG CAP PO SCH (10:41)
[2017-10-01] MEDS: levETIRAcetam 500 MG TAB PO SCH ×2 (10:41→20:45)
[2017-10-01] MEDS: SERTRALINE HCL 100 MG TAB PO SCH (10:42)
[2017-10-01] MEDS: LEVOFLOXACIN 500 MG TAB PO SCH (10:42)
[2017-10-01] MEDS: LACTULOSE SYRUP 20 GM/30 ML CUP PO SCH ×2 (10:43→20:44)
[2017-10-01] MEDS: traMADol HCL 50 MG TAB PO PRN ×2 (10:44→19:16)
[2017-10-01 11:49] VITALS: BP 150/89; PULSE 62; RESP 18; TEMP 98; O2SAT 99
[2017-10-01] MEDS: ENOXAPARIN SODIUM 30 MG/0.3 ML SYRINGE SQ SCH (13:10)
--- NOTE | 2017-10-01 15:04 | HHI.PR ---
Subjective Remarks In the bed eating. Not in acute distress. Vital events overnight. Objective Vitals Vital Signs Date Time Temp Pulse Resp B/P (MAP) Pulse Ox O2 Delivery O2 Flow Rate FiO2 10/01/17 11:49 98.0 62 18 150/89 (109) 99 10/01/17 08:00 98.3 61 18 123/83 (96) 95 10/01/17 05:50 97.6 60 18 120/62 (81) 95 10/01/17 01:00 98.1 64 20 130/62 (84) 94 09/30/17 22:00 98.8 67 20 128/69 (88) 95 I/O 09/30/17 09/30/17 09/30/17 10/01/17 10/01/17 10/01/17 07:00 15:00 23:00 07:00 15:00 23:00 Intake Total 900 ml 1200 ml Balance 900 ml 1200 ml Intake Oral 900 ml 1200 ml # Voids 0 2 # Bowel Movements 0 0 Result Diagram: 09/29/17 1250 Objective Remarks GENERAL: Resting comfortably HEAD: Normocephalic. EYES: No scleral icterus. No injection or drainage. NECK: Supple, trachea midline. No JVD. CARDIOVASCULAR: Regular rate and rhythm without murmurs, gallops, or rubs. RESPIRATORY: Breath sounds equal bilaterally, poor effort. No accessory muscle use. GASTROINTESTINAL: Abdomen soft, round, non-tender, nondistended. Normoactive bowel sounds in all quadrants. MUSCULOSKELETAL: No cyanosis, or edema. NEUROLOGIC: Able to respond oriented x1, moves all extremities, speech is clear. Procedures None A/P Problem List: (1) Encephalopathy ICD Code: G93.40 - Encephalopathy Status: Acute (2) Alcohol-induced mood disorder ICD Code: F10.94 - Alcohol use, unspecified with alcohol-induced mood disorder Status: Acute (3) Debility ICD Code: R53.81 - Other malaise (4) COPD (chronic obstructive pulmonary disease) ICD Code: J44.9 - COPD (chronic obstructive pulmonary disease) Status: Chronic (5) PTSD (post-traumatic stress disorder) ICD Code: F43.10 - Post-traumatic stress disorder, unspecified Assessment and Plan 62-year-old man with UTI growing E. Coli Elevated PSA - Continue Levaquin (started on 09/26) - Drop in WBC count this AM to 3.6, continue monitoring periodically -Urology consulted for elevated PSA, recommendations appreciated -Complete course of antibiotics, continue Flomax, repeat UA and PSA on an outpatient basis. Aggressive behavior, encephalopathy: the Avelar act was lifted by psychiatry Continue Seroquel, sertraline. Currently on lactulose, Ammonia level on 09/22 was 39 Thrombocytopenia: -Chronic, at baseline. PLTs this AM 105, H&H stable with no reported bleeding. Seizure disorder: -Continue Depakote, Keppra. Seizure precautions. PTSD, personality disorder: -Appreciate psychiatry recommendations. -Continue Seroquel. Trazodone daily at bedtime. COPD: -s/p Prednisone taper, currently stable on room air. Generalized weakness: - Patient has chronic debility likely secondary to chronic alcohol abuse. - Continue PT DVT prophylaxis: Heparin. Discussed with nurse, pt. Iris Hanson MD Oct 01, 2017 15:04
[2017-10-01 16:00] VITALS: BP 126/79; PULSE 68; RESP 18; TEMP 98.1; O2SAT 95
[2017-10-01 20:40] VITALS: BP 130/67; PULSE 88; RESP 19; TEMP 98.1; O2SAT 95
[2017-10-01] MEDS: traZODone HCL 100 MG TAB PO SCH (20:45)
[2017-10-01] MEDS: QUEtiapine FUMARATE 25 MG TAB PO SCH (20:46)
[2017-10-01] MEDS: DIVALPROEX SODIUM E.R. 500 MG TAB PO SCH (20:47)
[2017-10-02 00:30] VITALS: BP 129/69; PULSE 80; RESP 19; TEMP 97.6; O2SAT 96
[2017-10-02 04:20] VITALS: BP 120/88; PULSE 88; RESP 20; TEMP 98.8; O2SAT 98
[2017-10-02] MEDS: SERTRALINE HCL 100 MG TAB PO SCH (07:59)
[2017-10-02] MEDS: levETIRAcetam 500 MG TAB PO SCH ×2 (07:59→20:28)
[2017-10-02] MEDS: LACTULOSE SYRUP 20 GM/30 ML CUP PO SCH ×2 (07:59→20:29)
[2017-10-02] MEDS: SODIUM CHLORIDE 0.9% FLUSH 10 ML FLUSH IV FLUSH SCH ×2 (07:59→20:29)
[2017-10-02] MEDS: LEVOFLOXACIN 500 MG TAB PO SCH (07:59)
[2017-10-02] MEDS: DOCUSATE SODIUM 50 MG/SENNA 8.6 MG TAB PO SCH ×2 (08:00→20:28)
[2017-10-02] MEDS: TAMSULOSIN HCL 0.4 MG CAP PO SCH (08:00)
[2017-10-02 08:26] VITALS: BP 160/79; PULSE 64; RESP 20; TEMP 98; O2SAT 97
--- NOTE | 2017-10-02 08:33 | HHI.PR ---
Subjective Remarks Patient complaints of right wrist pain, swelling. Patient with some erythema but no significant. No fever or chills. No nausea vomiting diarrhea or constipation. X Ray ordered and no fracture. Consult orthopedic doctor for further evaluation Objective Vitals Vital Signs Date Time Temp Pulse Resp B/P (MAP) Pulse Ox O2 Delivery O2 Flow Rate FiO2 10/02/17 08:26 98.0 64 20 160/79 (106) 97 10/02/17 04:20 98.8 88 20 120/88 (99) 98 10/02/17 00:30 97.6 80 19 129/69 (89) 96 10/01/17 20:40 98.1 88 19 130/67 (88) 95 10/01/17 16:00 98.1 68 18 126/79 (95) 95 10/01/17 11:49 98.0 62 18 150/89 (109) 99 I/O 10/01/17 10/01/17 10/01/17 10/02/17 10/02/17 10/02/17 07:00 15:00 23:00 07:00 15:00 23:00 Intake Total 1200 ml 900 ml 1000 ml Balance 1200 ml 900 ml 1000 ml Intake Oral 1200 ml 900 ml 1000 ml # Voids 2 1 2 # Bowel Movements 0 0 0 Result Diagram: 09/29/17 1250 Imaging Last Impressions Wrist X-Ray 10/02/17 0000 Signed Impressions: Service Date/Time: Monday, October 02, 2017 10:18 - CONCLUSION: Unremarkable exam. No significant change compared to the prior study. Wade Butler MD Renal Ultrasound 09/24/17 0000 Signed Impressions: Service Date/Time: Sunday, September 24, 2017 09:53 - CONCLUSION: Negative for stone or obstruction. Silvestre Iniguez MD FACR Head CT 08/28/17 0000 Signed Impressions: Service Date/Time: Monday, August 28, 2017 06:05 - CONCLUSION: 1. No acute intracranial hemorrhage. 2. Stable diffuse bilateral cortical atrophy. 3. No significant change compared to the prior exam. Wade Butler MD Cervical Spine CT 08/28/17 0000 Signed Impressions: Service Date/Time: Monday, August 28, 2017 06:08 - CONCLUSION: 1. No acute bony fracture. 2. Stable diffuse primary degenerative changes involving the cervical spine. 3. No new or significant changes. Wade Butler MD Objective Remarks GENERAL: Resting comfortably HEAD: Normocephalic. EYES: No scleral icterus. No injection or drainage. NECK: Supple, trachea midline. No JVD. CARDIOVASCULAR: Regular rate and rhythm without murmurs, gallops, or rubs. RESPIRATORY: Breath sounds equal bilaterally, poor effort. No accessory muscle use. GASTROINTESTINAL: Abdomen soft, round, non-tender, nondistended. Normoactive bowel sounds in all quadrants. MUSCULOSKELETAL: Right wrist edema, slight erythema, no open wound. There is pain with palpation and decreased ROM 2/2 pain. Neurovascular intact. No cyanosis,no LE edema. NEUROLOGIC: Able to respond oriented x1, moves all extremities, speech is clear. Procedures None A/P Problem List: (1) Encephalopathy ICD Code: G93.40 - Encephalopathy Status: Acute (2) Alcohol-induced mood disorder ICD Code: F10.94 - Alcohol use, unspecified with alcohol-induced mood disorder Status: Acute (3) Debility ICD Code: R53.81 - Other malaise (4) COPD (chronic obstructive pulmonary disease) ICD Code: J44.9 - COPD (chronic obstructive pulmonary disease) Status: Chronic (5) PTSD (post-traumatic stress disorder) ICD Code: F43.10 - Post-traumatic stress disorder, unspecified Assessment and Plan 62-year-old man with UTI growing E. Coli Elevated PSA - Continue Levaquin (started on 09/26) - Drop in WBC count this AM to 3.6, continue monitoring periodically -Urology consulted for elevated PSA, recommendations appreciated -Complete course of antibiotics, continue Flomax, repeat UA and PSA on an outpatient basis. Aggressive behavior, encephalopathy: the Avelar act was lifted by psychiatry Continue Seroquel, sertraline. Currently on lactulose, Ammonia level on 09/22 was 39. More awake and alert. Right wrist pain and swelling. X ray reviewed no fracture. We will do ultrasound. Pain control with norco as need pr pain scale. Consult orthopedic doctor for further evaluation. Will do CBC BMP on the patient is refusing labs at this time. Thrombocytopenia: -Chronic, at baseline. PLTs this AM 105, H&H stable with no reported bleeding. Seizure disorder: -Continue Depakote, Keppra. Seizure precautions. PTSD, personality disorder: -Appreciate psychiatry recommendations. -Continue Seroquel. Trazodone daily at bedtime. COPD: -s/p Prednisone taper, currently stable on room air. Generalized weakness: - Patient has chronic debility likely secondary to chronic alcohol abuse. - Continue PT DVT prophylaxis: Heparin. Discussed with nurse, patient. Iris Hanson MD Oct 02, 2017 08:33
[2017-10-02] MEDS: ACETAMINOPHEN/HYDROcodone 325 MG/5 MG TAB PO PRN (10:57)
--- NOTE | 2017-10-02 11:09 | RADRPT ---
EXAM DATE/TIME: 10/02/2017 10:18 [facility] COMPARISON: WRIST RIGHT COMPLETE ([id number]), July 05, 2012, 17:18. INDICATIONS : Proximolateral pain. MEDICAL HISTORY : None. SURGICAL HISTORY : None. ENCOUNTER: Initial ACUITY: 1 day PAIN SCORE: 5/10 LOCATION: Right proximolateral wrist. FINDINGS: Three view examination of the right wrist demonstrates no soft tissue swelling, dislocation, or fract ure. The carpal bones are in normal alignment. The joint spaces are maintained. Bony mineralizatio n is normal. CONCLUSION: Unremarkable exam. No significant change compared to the prior study. Wade Butler MD on October 02, 2017 at 11:06 Board Certified Radiologist. This report was verified electronically.
[2017-10-02] MEDS: ENOXAPARIN SODIUM 30 MG/0.3 ML SYRINGE SQ SCH (11:55)
[2017-10-02 11:58] VITALS: BP 134/78; PULSE 76; RESP 20; TEMP 98.3; O2SAT 96
[2017-10-02] MEDS: traMADol HCL 50 MG TAB PO PRN ×2 (15:05→20:28)
[2017-10-02 17:14] VITALS: BP 153/80; PULSE 69; RESP 20; TEMP 97.5; O2SAT 97
[2017-10-02] MEDS: QUEtiapine FUMARATE 25 MG TAB PO SCH (20:27)
[2017-10-02] MEDS: traZODone HCL 100 MG TAB PO SCH (20:28)
[2017-10-02] MEDS: DIVALPROEX SODIUM E.R. 500 MG TAB PO SCH (20:28)
[2017-10-02 21:20] VITALS: BP 177/80; PULSE 77; RESP 19; TEMP 98; O2SAT 96
[2017-10-03 00:18] VITALS: BP 127/79; PULSE 77; RESP 16; TEMP 98.3; O2SAT 97
[2017-10-03 08:02] VITALS: BP 135/87; PULSE 70; RESP 20; TEMP 97.7; O2SAT 97
[2017-10-03] MEDS: SERTRALINE HCL 100 MG TAB PO SCH (08:11)
[2017-10-03] MEDS: LACTULOSE SYRUP 20 GM/30 ML CUP PO SCH ×2 (08:11→20:49)
[2017-10-03] MEDS: SODIUM CHLORIDE 0.9% FLUSH 10 ML FLUSH IV FLUSH SCH ×2 (08:11→20:49)
[2017-10-03] MEDS: DOCUSATE SODIUM 50 MG/SENNA 8.6 MG TAB PO SCH ×2 (08:11→20:48)
[2017-10-03] MEDS: TAMSULOSIN HCL 0.4 MG CAP PO SCH (08:11)
[2017-10-03] MEDS: levETIRAcetam 500 MG TAB PO SCH ×2 (08:11→20:48)
[2017-10-03] MEDS: LEVOFLOXACIN 500 MG TAB PO SCH (08:12)
[2017-10-03] MEDS: ACETAMINOPHEN/HYDROcodone 325 MG/5 MG TAB PO PRN (08:12)
[2017-10-03] MEDS: traMADol HCL 50 MG TAB PO PRN ×2 (08:12→20:47)
[2017-10-03] MEDS: hydrOXYzine HCL 50 MG TAB PO PRN (08:12)
--- NOTE | 2017-10-03 09:19 | HHI.PR ---
Subjective Remarks Sleepy. She went for MRI and received some Ativan because he was agitated. Patient does not have any fever or chills. He complains only of pain, swelling is the same did not improve. Also came to evaluate the patient however the patient was at MRI at that time. Objective Vitals Vital Signs Date Time Temp Pulse Resp B/P (MAP) Pulse Ox O2 Delivery O2 Flow Rate FiO2 10/03/17 08:02 97.7 70 20 135/87 (103) 97 10/03/17 00:18 98.3 77 16 127/79 (95) 97 10/02/17 21:20 98.0 77 19 177/80 (112) 96 10/02/17 17:14 97.5 69 20 153/80 (104) 97 10/02/17 16:07 16 10/02/17 11:59 16 10/02/17 11:58 98.3 76 20 134/78 (96) 96 I/O 10/02/17 10/02/17 10/02/17 10/03/17 10/03/17 10/03/17 07:00 15:00 23:00 07:00 15:00 23:00 Intake Total 1000 ml 360 ml 360 ml Balance 1000 ml 360 ml 360 ml Intake Oral 1000 ml 360 ml 360 ml # Voids 2 3 # Bowel Movements 0 Result Diagram: 09/29/17 1250 Imaging Last Impressions Upper Extremity Ultrasound 10/03/17 0000 Signed Impressions: Service Date/Time: Monday, October 02, 2017 14:57 - CONCLUSION: 1. Negative for deep venous thrombosis right upper extremity. Fermin Duggan MD Wrist X-Ray 10/02/17 0000 Signed Impressions: Service Date/Time: Monday, October 02, 2017 10:18 - CONCLUSION: Unremarkable exam. No significant change compared to the prior study. Wade Butler MD Renal Ultrasound 09/24/17 0000 Signed Impressions: Service Date/Time: Sunday, September 24, 2017 09:53 - CONCLUSION: Negative for stone or obstruction. Silvestre Iniguez MD FACR Head CT 08/28/17 0000 Signed Impressions: Service Date/Time: Monday, August 28, 2017 06:05 - CONCLUSION: 1. No acute intracranial hemorrhage. 2. Stable diffuse bilateral cortical atrophy. 3. No significant change compared to the prior exam. Wade Butler MD Cervical Spine CT 08/28/17 0000 Signed Impressions: Service Date/Time: Monday, August 28, 2017 06:08 - CONCLUSION: 1. No acute bony fracture. 2. Stable diffuse primary degenerative changes involving the cervical spine. 3. No new or significant changes. Wade Butler MD Objective Remarks GENERAL: Resting comfortably HEAD: Normocephalic. EYES: No scleral icterus. No injection or drainage. NECK: Supple, trachea midline. No JVD. CARDIOVASCULAR: Regular rate and rhythm without murmurs, gallops, or rubs. RESPIRATORY: Breath sounds equal bilaterally, poor effort. No accessory muscle use. GASTROINTESTINAL: Abdomen soft, round, non-tender, nondistended. Normoactive bowel sounds in all quadrants. MUSCULOSKELETAL: Right wrist edema, slight erythema, no open wound. There is pain with palpation and decreased ROM 2/2 pain. Neurovascular intact. No cyanosis,no LE edema. NEUROLOGIC: Able to respond oriented x1, moves all extremities, speech is clear. Procedures None A/P Problem List: (1) Encephalopathy ICD Code: G93.40 - Encephalopathy Status: Acute (2) Alcohol-induced mood disorder ICD Code: F10.94 - Alcohol use, unspecified with alcohol-induced mood disorder Status: Acute (3) Debility ICD Code: R53.81 - Other malaise (4) COPD (chronic obstructive pulmonary disease) ICD Code: J44.9 - COPD (chronic obstructive pulmonary disease) Status: Chronic (5) PTSD (post-traumatic stress disorder) ICD Code: F43.10 - Post-traumatic stress disorder, unspecified Assessment and Plan 62-year-old man with UTI growing E. Coli Elevated PSA - Continue Levaquin (started on 09/26) - Drop in WBC count this AM to 3.6, continue monitoring periodically -Urology consulted for elevated PSA, recommendations appreciated -Complete course of antibiotics, continue Flomax, repeat UA and PSA on an outpatient basis. Aggressive behavior, encephalopathy: the Avelar act was lifted by psychiatry Continue Seroquel, sertraline. Currently on lactulose, Ammonia level on 09/22 was 39. More awake and alert. Right wrist pain and swelling. X ray reviewed no fracture. We will do ultrasound. Pain control with norco as need pr pain scale. Consult orthopedic doctor for further evaluation. MRI wrist ordered. CBC BMP, however the patient is refusing labs at this time. Thrombocytopenia: -Chronic, at baseline. PLTs stable, H&H stable with no reported bleeding. Seizure disorder: -Continue David Luther. Seizure precautions. PTSD, personality disorder: -Appreciate psychiatry recommendations. -Continue Seroquel. Trazodone daily at bedtime. COPD: -s/p Prednisone taper, currently stable on room air. Generalized weakness: - Patient has chronic debility likely secondary to chronic alcohol abuse. - Continue PT DVT prophylaxis: Heparin. Discussed with nurse, patient. Iris Hanson MD Oct 03, 2017 09:19
[2017-10-03] MEDS: ENOXAPARIN SODIUM 30 MG/0.3 ML SYRINGE SQ SCH (11:20)
--- NOTE | 2017-10-03 11:52 | RADRPT ---
EXAM DATE/TIME: 10/02/2017 14:57 [facility] COMPARISON: No previous studies available for comparison. INDICATIONS : Right arm swelling and pain. MEDICAL HISTORY : Hypercholesterolemia. Hypertension. Chronic obstructive pulmonary disease. Dementia. Seizures. Dyspne a. Pancreatitis. Cirrhosis. Gout. Hepatitis C. Hepatitis B. Insomnia. SURGICAL HISTORY : Tonsillectomy. Appendectomy. Cholecystectomy. ENCOUNTER: Initial ACUITY: 2 day PAIN SCORE: 5/10 LOCATION: Right arm. FINDINGS: There is spontaneous flow documented in the brachial, basilic, cephalic, axillary, and subclavian vei ns. The vessels are compressible and augmentation response is documented. No filling defects are se en. The flow is phasic with respiration. Direction of flow in the jugular vein is caudal. CONCLUSION: 1. Negative for deep venous thrombosis right upper extremity. Fermin Duggan MD on October 03, 2017 at 11:50 Board Certified Radiologist. This report was verified electronically.
[2017-10-03 12:26] VITALS: BP 145/85; PULSE 70; RESP 20; TEMP 97.2; O2SAT 97
[2017-10-03 17:07] VITALS: BP 123/74; PULSE 66; RESP 20; TEMP 97.8; O2SAT 92
[2017-10-03 20:31] VITALS: BP 107/78; PULSE 66; RESP 18; TEMP 97.4; O2SAT 91
[2017-10-03] MEDS: QUEtiapine FUMARATE 25 MG TAB PO SCH (20:48)
[2017-10-03] MEDS: traZODone HCL 100 MG TAB PO SCH (20:49)
[2017-10-03] MEDS: DIVALPROEX SODIUM E.R. 500 MG TAB PO SCH (20:49)
[2017-10-04 00:08] VITALS: BP 130/72; PULSE 76; RESP 17; TEMP 98; O2SAT 96
[2017-10-04 04:35] VITALS: BP 113/69; PULSE 63; RESP 17; TEMP 97.6; O2SAT 95
[2017-10-04] MEDS: traMADol HCL 50 MG TAB PO PRN (06:25)
[2017-10-04 08:00] VITALS: BP 125/74; PULSE 68; RESP 16; TEMP 98.6; O2SAT 95
[2017-10-04] MEDS: DOCUSATE SODIUM 50 MG/SENNA 8.6 MG TAB PO SCH ×2 (09:00→23:48)
[2017-10-04] MEDS: SODIUM CHLORIDE 0.9% FLUSH 10 ML FLUSH IV FLUSH SCH ×2 (09:00→23:48)
[2017-10-04] MEDS: SERTRALINE HCL 100 MG TAB PO SCH (10:40)
[2017-10-04] MEDS: TAMSULOSIN HCL 0.4 MG CAP PO SCH (10:41)
[2017-10-04] MEDS: levETIRAcetam 500 MG TAB PO SCH ×2 (10:41→23:47)
[2017-10-04] MEDS: LEVOFLOXACIN 500 MG TAB PO SCH (10:41)
[2017-10-04] MEDS: LACTULOSE SYRUP 20 GM/30 ML CUP PO SCH ×2 (10:41→23:47)
[2017-10-04 12:00] VITALS: BP 131/76; PULSE 69; RESP 17; TEMP 98.5; O2SAT 97
[2017-10-04 12:05] VITALS: BP 125/74; PULSE 68; RESP 16; TEMP 98.6; O2SAT 95
--- NOTE | 2017-10-04 13:02 | HHI.PR ---
Subjective Remarks Still with pain and swelling is the same on his right wrist. No erythema. Says he wants to sleep. No fever or chills. No nausea or vomiting no diarrhea or constipation. Objective Vitals Vital Signs Date Time Temp Pulse Resp B/P (MAP) Pulse Ox O2 Delivery O2 Flow Rate FiO2 10/04/17 12:05 98.6 68 16 125/74 (91) 95 10/04/17 04:35 97.6 63 17 113/69 (84) 95 10/04/17 00:08 98.0 76 17 130/72 (91) 96 10/03/17 20:31 97.4 66 18 107/78 (88) 91 10/03/17 17:07 97.8 66 20 123/74 (90) 92 I/O 10/03/17 10/03/17 10/03/17 10/04/17 10/04/17 10/04/17 07:00 15:00 23:00 07:00 15:00 23:00 Intake Total 360 ml 360 ml 600 ml Balance 360 ml 360 ml 600 ml Intake Oral 360 ml 360 ml 600 ml # Voids 3 3 4 Imaging Last Impressions Upper Extremity Ultrasound 10/03/17 0000 Signed Impressions: Service Date/Time: Monday, October 02, 2017 14:57 - CONCLUSION: 1. Negative for deep venous thrombosis right upper extremity. Fermin Duggan MD Wrist X-Ray 10/02/17 0000 Signed Impressions: Service Date/Time: Monday, October 02, 2017 10:18 - CONCLUSION: Unremarkable exam. No significant change compared to the prior study. Wade Butler MD Renal Ultrasound 09/24/17 0000 Signed Impressions: Service Date/Time: Sunday, September 24, 2017 09:53 - CONCLUSION: Negative for stone or obstruction. Silvestre Iniguez MD FACR Head CT 08/28/17 0000 Signed Impressions: Service Date/Time: Monday, August 28, 2017 06:05 - CONCLUSION: 1. No acute intracranial hemorrhage. 2. Stable diffuse bilateral cortical atrophy. 3. No significant change compared to the prior exam. Wade Butler MD Cervical Spine CT 08/28/17 0000 Signed Impressions: Service Date/Time: Monday, August 28, 2017 06:08 - CONCLUSION: 1. No acute bony fracture. 2. Stable diffuse primary degenerative changes involving the cervical spine. 3. No new or significant changes. Wade Butler MD Objective Remarks GENERAL: Resting comfortably HEAD: Normocephalic. EYES: No scleral icterus. No injection or drainage. NECK: Supple, trachea midline. No JVD. CARDIOVASCULAR: Regular rate and rhythm without murmurs, gallops, or rubs. RESPIRATORY: Breath sounds equal bilaterally, poor effort. No accessory muscle use. GASTROINTESTINAL: Abdomen soft, round, non-tender, nondistended. Normoactive bowel sounds in all quadrants. MUSCULOSKELETAL: Right wrist edema, slight erythema, no open wound. There is pain with palpation and decreased ROM 2/2 pain. Neurovascular intact. No cyanosis,no LE edema. NEUROLOGIC: Able to respond oriented x1, moves all extremities, speech is clear. Procedures None A/P Problem List: (1) Encephalopathy ICD Code: G93.40 - Encephalopathy Status: Acute (2) Alcohol-induced mood disorder ICD Code: F10.94 - Alcohol use, unspecified with alcohol-induced mood disorder Status: Acute (3) Debility ICD Code: R53.81 - Other malaise (4) COPD (chronic obstructive pulmonary disease) ICD Code: J44.9 - COPD (chronic obstructive pulmonary disease) Status: Chronic (5) PTSD (post-traumatic stress disorder) ICD Code: F43.10 - Post-traumatic stress disorder, unspecified Assessment and Plan 62-year-old man with UTI growing E. Coli Elevated PSA - Continue Levaquin (started on 09/26) - Drop in WBC count this AM to 3.6, continue monitoring periodically -Urology consulted for elevated PSA, recommendations appreciated -Complete course of antibiotics, continue Flomax, repeat UA and PSA on an outpatient basis. Aggressive behavior, encephalopathy: the Avelar act was lifted by psychiatry Continue Seroquel, sertraline. Currently on lactulose, Ammonia level on 09/22 was 39. More awake and alert. Right wrist pain and swelling. X ray reviewed no fracture. We will do ultrasound. Pain control with norco as need pr pain scale. Consult orthopedic doctor for further evaluation. MRI wrist ordered. CBC BMP, however the patient is refusing labs at this time. Thrombocytopenia: -Chronic, at baseline. PLTs stable, H&H stable with no reported bleeding. Seizure disorder: -Continue Depakote, Keppra. Seizure precautions. PTSD, personality disorder: -Appreciate psychiatry recommendations. -Continue Seroquel. Trazodone daily at bedtime. COPD: -s/p Prednisone taper, currently stable on room air. Generalized weakness: - Patient has chronic debility likely secondary to chronic alcohol abuse. - Continue PT DVT prophylaxis: Heparin. Discussed with nurse, patient. Iris Hanson MD Oct 04, 2017 13:02
[2017-10-04] MEDS: ENOXAPARIN SODIUM 30 MG/0.3 ML SYRINGE SQ SCH (13:10)
--- NOTE | 2017-10-04 16:12 | MB ---
cc: MARLO ARGUETA M.D. DATE OF CONSULTATION 10/04/2017 REASON FOR CONSULTATION Right wrist pain and swelling. HISTORY OF PRESENT ILLNESS This is a 62-year-old male with a past history of hematuria, elevated PSA, psychiatric disease, post-traumatic stress disorder. He has been an inpatient at [facility] for several weeks' duration and has had the recent onset of increasing pain and swelling as well as warmth of the right hand and wrist area. He does have an IV in this region which he states bothers him. He currently denies fevers or chills. The patient is a poor historian in regards to his wrist and is somewhat agitated for examination purposes. Denies falls or trauma. PAST MEDICAL HISTORY 1. Seizure disorder. 2. Bipolar disorder. 3. Gout. 4. Low back pain. 5. COPD. 6. Hypertension. 7. Pancreatitis. 8. Hepatitis. 9. Alcohol abuse. 10.Hyperlipidemia. PAST SURGICAL HISTORY 1. Appendectomy. 2. Tonsillectomy. 3. History of left femur fracture and surgical repair. MEDICATIONS Per the EMR. ALLERGIES No known drug allergies. FAMILY HISTORY Prostate cancer. SOCIAL HISTORY Prior history of alcohol and smoking. REVIEW OF SYSTEMS Negative for 10 systems other than the HPI. PHYSICAL EXAMINATION GENERAL: The patient is somewhat disheveled. He is lying in bed. He is awake and alert. He is agitated. VITAL SIGNS: Temperature 98, pulse 71, respirations 16, blood pressure 100/60. HEENT: Normocephalic, atraumatic. Pupils round. No scleral icterus. NECK: Supple. LUNGS: Clear. HEART: Regular rate and rhythm. ABDOMEN: Soft, nontender. EXTREMITIES: Right Wrist: He does have some swelling along the dorsal and radial aspect. He has an IV along the radial aspect of his wrist which may be extravasating. He can flex and extend his wrist. Minimal pain upon passive motion. He can flex the digits. His compartments are soft. He has brisk capillary refill. Sensation is intact distally. LABORATORY White blood cell count is 3.6, hemoglobin 12, hematocrit 37. IMAGING X-ray of the right wrist shows no fracture. Ultrasound of the right upper extremity: No evidence of DVT. IMPRESSION The patient has developed recent onset of right wrist pain and swelling. He does have an IV in this region and I have concerns that there may be some extravasation of fluid. He could also be developing some early cellulitis, although I do not believe on clinical exam he has septic arthritis and certainly not a compartment syndrome. PLAN I have discussed at length with the patient. I would recommend removing the IV from this portion, applying warm compresses. I have also recommend an MRI but it appears the patient has been unable to get an MRI because of his agitation and being able to lie still for a period of time. If removing the IV and conservative treatment improves his symptoms, no further work-up or follow-up would be needed. If the patient's symptoms do not improve I would again consider pushing forward with MRI imaging for further detail of his condition. Marlo Argueta MD JWM/GARCIA /2:46 PM /3:58 PM
[2017-10-04 20:20] VITALS: BP 130/64; PULSE 89; RESP 19; TEMP 97.9; O2SAT 96
[2017-10-04] MEDS: DIVALPROEX SODIUM E.R. 500 MG TAB PO SCH (23:47)
[2017-10-04] MEDS: QUEtiapine FUMARATE 25 MG TAB PO SCH (23:47)
[2017-10-04] MEDS: traZODone HCL 100 MG TAB PO SCH (23:58)
[2017-10-05] VITALS: BP 128/68; PULSE 80; RESP 19; TEMP 98.3; O2SAT 95
[2017-10-05 04:20] VITALS: BP 119/66; PULSE 79; RESP 20; TEMP 98.6; O2SAT 96
[2017-10-05 08:00] VITALS: BP 105/63; PULSE 66; RESP 16; TEMP 97.7; O2SAT 94
[2017-10-05] MEDS: TAMSULOSIN HCL 0.4 MG CAP PO SCH (09:20)
[2017-10-05] MEDS: LEVOFLOXACIN 500 MG TAB PO SCH (09:20)
[2017-10-05] MEDS: SERTRALINE HCL 100 MG TAB PO SCH (09:20)
[2017-10-05] MEDS: DOCUSATE SODIUM 50 MG/SENNA 8.6 MG TAB PO SCH ×2 (09:20→23:04)
[2017-10-05] MEDS: SODIUM CHLORIDE 0.9% FLUSH 10 ML FLUSH IV FLUSH SCH ×2 (09:21→23:04)
[2017-10-05] MEDS: levETIRAcetam 500 MG TAB PO SCH ×2 (09:21→23:03)
[2017-10-05] MEDS: LACTULOSE SYRUP 20 GM/30 ML CUP PO SCH ×2 (09:21→23:03)
[2017-10-05 12:00] VITALS: BP 116/68; PULSE 73; RESP 17; TEMP 98.2; O2SAT 95
[2017-10-05] MEDS: traMADol HCL 50 MG TAB PO PRN ×2 (12:52)
[2017-10-05] MEDS: ENOXAPARIN SODIUM 30 MG/0.3 ML SYRINGE SQ SCH (12:52)
--- NOTE | 2017-10-05 14:24 | HHI.PR ---
Subjective Remarks Seen earlier today. He is sleepy. Pain is fairly controlled by meds. No fevers. No n/v/d/c. Objective Vitals Vital Signs Date Time Temp Pulse Resp B/P (MAP) Pulse Ox O2 Delivery O2 Flow Rate FiO2 10/05/17 12:00 98.2 73 17 116/68 (84) 95 10/05/17 08:00 97.7 66 16 105/63 (77) 94 10/05/17 04:20 98.6 79 20 119/66 (83) 96 10/05/17 00:00 98.3 80 19 128/68 (88) 95 10/04/17 20:20 97.9 89 19 130/64 (86) 96 I/O 10/04/17 10/04/17 10/04/17 10/05/17 10/05/17 10/05/17 07:00 15:00 23:00 07:00 15:00 23:00 Intake Total 600 ml 900 ml 1600 ml Balance 600 ml 900 ml 1600 ml Intake Oral 600 ml 900 ml 1600 ml # Voids 4 1 3 # Bowel Movements 0 0 Imaging Last Impressions Upper Extremity Ultrasound 10/03/17 0000 Signed Impressions: Service Date/Time: Monday, October 02, 2017 14:57 - CONCLUSION: 1. Negative for deep venous thrombosis right upper extremity. Fermin Duggan MD Wrist X-Ray 10/02/17 0000 Signed Impressions: Service Date/Time: Monday, October 02, 2017 10:18 - CONCLUSION: Unremarkable exam. No significant change compared to the prior study. Wade Butler MD Renal Ultrasound 09/24/17 0000 Signed Impressions: Service Date/Time: Sunday, September 24, 2017 09:53 - CONCLUSION: Negative for stone or obstruction. Silvestre Iniguez MD FACR Head CT 08/28/17 0000 Signed Impressions: Service Date/Time: Monday, August 28, 2017 06:05 - CONCLUSION: 1. No acute intracranial hemorrhage. 2. Stable diffuse bilateral cortical atrophy. 3. No significant change compared to the prior exam. Wade Butler MD Cervical Spine CT 08/28/17 0000 Signed Impressions: Service Date/Time: Monday, August 28, 2017 06:08 - CONCLUSION: 1. No acute bony fracture. 2. Stable diffuse primary degenerative changes involving the cervical spine. 3. No new or significant changes. Wade Butler MD Objective Remarks GENERAL: Resting comfortably HEAD: Normocephalic. EYES: No scleral icterus. No injection or drainage. NECK: Supple, trachea midline. No JVD. CARDIOVASCULAR: Regular rate and rhythm without murmurs, gallops, or rubs. RESPIRATORY: Breath sounds equal bilaterally, poor effort. No accessory muscle use. GASTROINTESTINAL: Abdomen soft, round, non-tender, nondistended. Normoactive bowel sounds in all quadrants. MUSCULOSKELETAL: Right wrist edema, slight erythema, no open wound. There is pain with palpation and decreased ROM 2/2 pain. Neurovascular intact. No cyanosis,no LE edema. NEUROLOGIC: Able to respond oriented x1, moves all extremities, speech is clear. Procedures None A/P Problem List: (1) Encephalopathy ICD Code: G93.40 - Encephalopathy Status: Acute (2) Alcohol-induced mood disorder ICD Code: F10.94 - Alcohol use, unspecified with alcohol-induced mood disorder Status: Acute (3) Debility ICD Code: R53.81 - Other malaise (4) COPD (chronic obstructive pulmonary disease) ICD Code: J44.9 - COPD (chronic obstructive pulmonary disease) Status: Chronic (5) PTSD (post-traumatic stress disorder) ICD Code: F43.10 - Post-traumatic stress disorder, unspecified Assessment and Plan 62-year-old man with UTI growing E. Coli Elevated PSA - Continue Levaquin (started on 09/26) - Drop in WBC count this AM to 3.6, continue monitoring periodically -Urology consulted for elevated PSA, recommendations appreciated -Complete course of antibiotics, continue Flomax, repeat UA and PSA on an outpatient basis. Aggressive behavior, encephalopathy: the Avelar act was lifted by psychiatry Continue Seroquel, sertraline. Currently on lactulose, Ammonia level on 09/22 was 39. More awake and alert. Right wrist pain and swelling. X ray reviewed no fracture. We will do ultrasound. Pain control with norco as need pr pain scale. Consult orthopedic doctor for further evaluation. MRI wrist ordered however [atient not tolerating and MRI was not done as he could not stay still and was moving hi thanh. Ortho recommends pain meds, warm compresses, no blood draw on right arm, monitor. If not imprpved will attempt to do MRI per ortho appreciate recommendations. No CBC, BMP, the patient is refusing labs at this time. He is afebrile. Thrombocytopenia: -Chronic, at baseline. PLTs stable, H&H stable with no reported bleeding. Seizure disorder: -Continue Depakote, Keppra. Seizure precautions. PTSD, personality disorder: -Appreciate psychiatry recommendations. -Continue Seroquel. Trazodone daily at bedtime. COPD: -s/p Prednisone taper, currently stable on room air. Generalized weakness: - Patient has chronic debility likely secondary to chronic alcohol abuse. - Continue PT DVT prophylaxis: Heparin. Discussed with nurse, patient. Iris Hanson MD Oct 05, 2017 14:24
[2017-10-05] MEDS: ACETAMINOPHEN/HYDROcodone 325 MG/5 MG TAB PO PRN (16:20)
--- NOTE | 2017-10-05 16:57 | RADRPT ---
EXAM DATE/TIME: 10/05/2017 12:00 [facility] COMPARISON: WRIST RIGHT COMPLETE ([id number]), October 02, 2017, 10:18. INDICATIONS : Pain. MEDICAL HISTORY : Hepatitis B. Hepatitis C. Cirrhosis. Hypertension, Hypercholesterolemia SURGICAL HISTORY : Tonsillectomy. Appendectomy. ENCOUNTER: Initial ACUITY: 1 day PAIN SCORE: 5/10 LOCATION: Right wrist. TECHNIQUE: Multiplanar multisequence MRI examination of the wrist was performed without contrast. FINDINGS: The osseous structures are in normal alignment. There is some mild fluid in the radiocarpal joint po steriorly. No signal abnormality in the carpal bones. The alignment of the proximal carpal row is m aintained. The plantar and dorsal tendons appear intact. Minimal soft tissue swelling of the dorsal hand and forearm. CONCLUSION: 1. No evidence of osteomyelitis. 2. Effusion in the proximal carpal row and in the radiocarpal joint. Fermin Duggan MD on October 05, 2017 at 16:43 Board Certified Radiologist. This report was verified electronically.
[2017-10-05 20:00] VITALS: BP 97/66; PULSE 73; RESP 18; TEMP 97.3
[2017-10-05] MEDS: traZODone HCL 100 MG TAB PO SCH (23:02)
[2017-10-05] MEDS: QUEtiapine FUMARATE 25 MG TAB PO SCH (23:03)
[2017-10-05] MEDS: DIVALPROEX SODIUM E.R. 500 MG TAB PO SCH (23:03)
[2017-10-06] VITALS (7 sets, daily range): BP systolic 86–111; BP diastolic 56–67; PULSE 60–86; RESP 16–18; TEMP 97.3–98.3; O2SAT 92–96
[2017-10-06] MEDS: traMADol HCL 50 MG TAB PO PRN ×2 (03:13→15:10)
[2017-10-06] MEDS: SODIUM CHLORIDE 0.9% FLUSH 10 ML FLUSH IV FLUSH SCH ×2 (09:00→20:06)
[2017-10-06] MEDS: LACTULOSE SYRUP 20 GM/30 ML CUP PO SCH ×2 (09:00→20:07)
[2017-10-06] MEDS: TAMSULOSIN HCL 0.4 MG CAP PO SCH (10:58)
[2017-10-06] MEDS: SERTRALINE HCL 100 MG TAB PO SCH (10:58)
[2017-10-06] MEDS: DOCUSATE SODIUM 50 MG/SENNA 8.6 MG TAB PO SCH ×2 (10:59→20:07)
[2017-10-06] MEDS: LEVOFLOXACIN 500 MG TAB PO SCH (10:59)
[2017-10-06] MEDS: levETIRAcetam 500 MG TAB PO SCH ×2 (10:59→20:07)
[2017-10-06] MEDS: ENOXAPARIN SODIUM 30 MG/0.3 ML SYRINGE SQ SCH (11:04)
--- NOTE | 2017-10-06 14:41 | HHI.PR ---
Subjective Remarks Swelling in his right wrist has improved. Pain is better controlled. No nausea vomiting no diarrhea or constipation. No fever overnight. Objective Vitals Vital Signs Date Time Temp Pulse Resp B/P (MAP) Pulse Ox O2 Delivery O2 Flow Rate FiO2 10/06/17 11:57 97.3 65 18 95/56 (69) 94 10/06/17 07:55 97.5 86 18 104/58 (73) 92 10/06/17 03:11 97.8 66 16 101/67 (78) 96 10/06/17 00:00 97.6 60 17 111/65 (80) 94 10/05/17 20:00 97.3 73 18 97/66 (76) I/O 10/05/17 10/05/17 10/05/17 10/06/17 10/06/17 10/06/17 06:59 14:59 22:59 06:59 14:59 22:59 Intake Total 1600 ml Balance 1600 ml Intake Oral 1600 ml # Voids 3 1 1 # Bowel Movements 0 0 Objective Remarks GENERAL: Resting comfortably HEAD: Normocephalic. EYES: No scleral icterus. No injection or drainage. NECK: Supple, trachea midline. No JVD. CARDIOVASCULAR: Regular rate and rhythm without murmurs, gallops, or rubs. RESPIRATORY: Breath sounds equal bilaterally, poor effort. No accessory muscle use. GASTROINTESTINAL: Abdomen soft, round, non-tender, nondistended. Normoactive bowel sounds in all quadrants. MUSCULOSKELETAL: Right wrist edema, slight erythema, no open wound. There is pain with palpation and decreased ROM 2/2 pain. Neurovascular intact. No cyanosis,no LE edema. NEUROLOGIC: Able to respond oriented x1, moves all extremities, speech is clear. Procedures None A/P Problem List: (1) Encephalopathy ICD Code: G93.40 - Encephalopathy Status: Acute (2) Alcohol-induced mood disorder ICD Code: F10.94 - Alcohol use, unspecified with alcohol-induced mood disorder Status: Acute (3) Debility ICD Code: R53.81 - Other malaise (4) COPD (chronic obstructive pulmonary disease) ICD Code: J44.9 - COPD (chronic obstructive pulmonary disease) Status: Chronic (5) PTSD (post-traumatic stress disorder) ICD Code: F43.10 - Post-traumatic stress disorder, unspecified Assessment and Plan 62-year-old man with UTI growing E. Coli Elevated PSA - Continue Levaquin (started on 09/26) - Drop in WBC count this AM to 3.6, continue monitoring periodically -Urology consulted for elevated PSA, recommendations appreciated -Complete course of antibiotics, continue Flomax, repeat UA and PSA on an outpatient basis. Aggressive behavior, encephalopathy: the Avelar act was lifted by psychiatry Continue Seroquel, sertraline. Currently on lactulose, Ammonia level on 09/22 was 39. More awake and alert. Right wrist pain and swelling. X ray reviewed no fracture. We will do ultrasound. Pain control with norco as need pr pain scale. Consult orthopedic doctor for further evaluation. MRI wrist ordered however [atient not tolerating and MRI was not done as he could not stay still and was moving hi thanh. Ortho recommends pain meds, warm compresses, no blood draw on right arm, monitor. If not imprpved will attempt to do MRI per ortho appreciate recommendations. No CBC, BMP, the patient is refusing labs at this time. He is afebrile. Thrombocytopenia: -Chronic, at baseline. PLTs stable, H&H stable with no reported bleeding. Seizure disorder: -Continue Depakote, Keppra. Seizure precautions. PTSD, personality disorder: -Appreciate psychiatry recommendations. -Continue Seroquel. Trazodone daily at bedtime. COPD: -s/p Prednisone taper, currently stable on room air. Generalized weakness: - Patient has chronic debility likely secondary to chronic alcohol abuse. - Continue PT DVT prophylaxis: Heparin. Discussed with nurse, patient. Iris Hanson MD Oct 06, 2017 14:41
[2017-10-06] MEDS: traZODone HCL 100 MG TAB PO SCH (20:07)
[2017-10-06] MEDS: DIVALPROEX SODIUM E.R. 500 MG TAB PO SCH (20:07)
[2017-10-06] MEDS: QUEtiapine FUMARATE 25 MG TAB PO SCH (20:07)
[2017-10-07] VITALS: BP 92/61; PULSE 78; RESP 18; TEMP 98; O2SAT 96
[2017-10-07 04:00] VITALS: BP 96/53; PULSE 87; RESP 18; TEMP 98.1; O2SAT 93
[2017-10-07 08:18] VITALS: BP 106/64; PULSE 65; RESP 16; TEMP 98.6; O2SAT 92
[2017-10-07] MEDS: DOCUSATE SODIUM 50 MG/SENNA 8.6 MG TAB PO SCH ×2 (09:00→21:38)
[2017-10-07] MEDS: SODIUM CHLORIDE 0.9% FLUSH 10 ML FLUSH IV FLUSH SCH ×2 (09:00→21:38)
[2017-10-07] MEDS: LACTULOSE SYRUP 20 GM/30 ML CUP PO SCH ×2 (09:52→21:37)
[2017-10-07] MEDS: SERTRALINE HCL 100 MG TAB PO SCH (09:53)
[2017-10-07] MEDS: LEVOFLOXACIN 500 MG TAB PO SCH (09:53)
[2017-10-07] MEDS: levETIRAcetam 500 MG TAB PO SCH ×2 (09:53→21:37)
[2017-10-07] MEDS: TAMSULOSIN HCL 0.4 MG CAP PO SCH (09:53)
[2017-10-07] MEDS: ENOXAPARIN SODIUM 30 MG/0.3 ML SYRINGE SQ SCH (12:00)
[2017-10-07 13:08] VITALS: BP 96/61; PULSE 68; RESP 16; TEMP 98.1; O2SAT 92
--- NOTE | 2017-10-07 15:09 | HHI.PR ---
Subjective Remarks Swelling in his right wrist improved. Pain is controlled by medications. No fever or chills. Has no much appetite and says he is not eating much. Objective Vitals Vital Signs Date Time Temp Pulse Resp B/P (MAP) Pulse Ox O2 Delivery O2 Flow Rate FiO2 10/07/17 13:08 98.1 68 16 96/61 (73) 92 10/07/17 08:18 98.6 65 16 106/64 (78) 92 10/07/17 04:00 98.1 87 18 96/53 (67) 93 10/07/17 00:00 98.0 78 18 92/61 (71) 96 10/06/17 20:09 97.9 78 16 107/61 (76) 95 10/06/17 20:00 98.3 79 18 86/61 (69) 92 10/06/17 15:27 98.0 77 18 96/61 (73) 96 I/O 10/06/17 10/06/17 10/06/17 10/07/17 10/07/17 10/07/17 06:59 14:59 22:59 06:59 14:59 22:59 # Voids 1 2 3 # Bowel Movements 0 Imaging Last Impressions Wrist MRI 10/05/17 0000 Signed Impressions: Service Date/Time: Thursday, October 05, 2017 12:00 - CONCLUSION: 1. No evidence of osteomyelitis. 2. Effusion in the proximal carpal row and in the radiocarpal joint. Fermin Duggan MD Upper Extremity Ultrasound 10/03/17 0000 Signed Impressions: Service Date/Time: Monday, October 02, 2017 14:57 - CONCLUSION: 1. Negative for deep venous thrombosis right upper extremity. Fermin Duggan MD Wrist X-Ray 10/02/17 0000 Signed Impressions: Service Date/Time: Monday, October 02, 2017 10:18 - CONCLUSION: Unremarkable exam. No significant change compared to the prior study. Wade Butler MD Renal Ultrasound 09/24/17 0000 Signed Impressions: Service Date/Time: Sunday, September 24, 2017 09:53 - CONCLUSION: Negative for stone or obstruction. Silvestre Iniguez MD FACR Head CT 08/28/17 0000 Signed Impressions: Service Date/Time: Monday, August 28, 2017 06:05 - CONCLUSION: 1. No acute intracranial hemorrhage. 2. Stable diffuse bilateral cortical atrophy. 3. No significant change compared to the prior exam. Wade Butler MD Cervical Spine CT 08/28/17 0000 Signed Impressions: Service Date/Time: Monday, August 28, 2017 06:08 - CONCLUSION: 1. No acute bony fracture. 2. Stable diffuse primary degenerative changes involving the cervical spine. 3. No new or significant changes. Wade Butler MD Objective Remarks GENERAL: Resting comfortably HEAD: Normocephalic. EYES: No scleral icterus. No injection or drainage. NECK: Supple, trachea midline. No JVD. CARDIOVASCULAR: Regular rate and rhythm without murmurs, gallops, or rubs. RESPIRATORY: Breath sounds equal bilaterally, poor effort. No accessory muscle use. GASTROINTESTINAL: Abdomen soft, round, non-tender, nondistended. Normoactive bowel sounds in all quadrants. MUSCULOSKELETAL: Right wrist edema, slight erythema, no open wound. There is pain with palpation and decreased ROM 2/2 pain. Neurovascular intact. No cyanosis,no LE edema. NEUROLOGIC: Able to respond oriented x1, moves all extremities, speech is clear. Procedures None A/P Problem List: (1) Encephalopathy ICD Code: G93.40 - Encephalopathy Status: Acute (2) Alcohol-induced mood disorder ICD Code: F10.94 - Alcohol use, unspecified with alcohol-induced mood disorder Status: Acute (3) Debility ICD Code: R53.81 - Other malaise (4) COPD (chronic obstructive pulmonary disease) ICD Code: J44.9 - COPD (chronic obstructive pulmonary disease) Status: Chronic (5) PTSD (post-traumatic stress disorder) ICD Code: F43.10 - Post-traumatic stress disorder, unspecified Assessment and Plan 62-year-old man with UTI growing E. Coli Elevated PSA - Continue Levaquin (started on 09/26) - Drop in WBC count, continue monitoring periodically -Urology consulted for elevated PSA, recommendations appreciated -Complete course of antibiotics, continue Flomax, repeat UA and PSA on an outpatient basis. Aggressive behavior, encephalopathy: the Avelar act was lifted by psychiatry Continue Seroquel, sertraline. Currently on lactulose, Ammonia level on 09/22 was 39. More awake and alert. Right wrist pain and swelling. X ray reviewed no fracture. We will do ultrasound. Pain control with norco as need pr pain scale. Consult orthopedic doctor for further evaluation. MRI wrist ordered however [atient not tolerating and MRI was not done as he could not stay still and was moving hi thanh. Ortho recommends pain meds, warm compresses, no blood draw on right arm, monitor. If not imprpved will attempt to do MRI per ortho appreciate recommendations. No CBC, BMP, the patient is refusing labs at this time. He is afebrile. Thrombocytopenia: -Chronic, at baseline. PLTs stable, H&H stable with no reported bleeding. Seizure disorder: -Continue Depakote, Keppra. Seizure precautions. PTSD, personality disorder: -Appreciate psychiatry recommendations. -Continue Seroquel. Trazodone daily at bedtime. COPD: -s/p Prednisone taper, currently stable on room air. Generalized weakness: - Patient has chronic debility likely secondary to chronic alcohol abuse. - Continue PT Decreased Appetite. Add multiVitamins DVT prophylaxis: Heparin. Discussed with nurse, patient. Iris Hanson MD Oct 07, 2017 15:09
[2017-10-07 16:03] VITALS: BP 101/67; PULSE 69; RESP 17; TEMP 97.8; O2SAT 96
[2017-10-07 20:00] VITALS: BP 115/66; PULSE 80; RESP 18; TEMP 97.5; O2SAT 98
[2017-10-07] MEDS: traZODone HCL 100 MG TAB PO SCH (21:37)
[2017-10-07] MEDS: DIVALPROEX SODIUM E.R. 500 MG TAB PO SCH (21:37)
[2017-10-07] MEDS: QUEtiapine FUMARATE 25 MG TAB PO SCH (21:38)
[2017-10-08] VITALS: BP 100/68; PULSE 65; RESP 18; TEMP 97.8; O2SAT 97
[2017-10-08 04:00] VITALS: BP 116/56; PULSE 64; RESP 18; TEMP 97.3; O2SAT 98
[2017-10-08] MEDS: MULTIVITAMIN TAB PO SCH (07:50)
[2017-10-08] MEDS: TAMSULOSIN HCL 0.4 MG CAP PO SCH (07:50)
[2017-10-08] MEDS: DOCUSATE SODIUM 50 MG/SENNA 8.6 MG TAB PO SCH ×2 (07:50→21:09)
[2017-10-08] MEDS: SERTRALINE HCL 100 MG TAB PO SCH (07:50)
[2017-10-08] MEDS: LEVOFLOXACIN 500 MG TAB PO SCH (07:50)
[2017-10-08] MEDS: levETIRAcetam 500 MG TAB PO SCH ×2 (07:50→21:09)
[2017-10-08] MEDS: LACTULOSE SYRUP 20 GM/30 ML CUP PO SCH ×2 (07:50→21:09)
[2017-10-08] MEDS: SODIUM CHLORIDE 0.9% FLUSH 10 ML FLUSH IV FLUSH SCH ×2 (07:51→21:10)
[2017-10-08 08:38] VITALS: BP 105/76; PULSE 73; RESP 17; TEMP 97.6; O2SAT 95
[2017-10-08] MEDS: ENOXAPARIN SODIUM 30 MG/0.3 ML SYRINGE SQ SCH (11:30)
[2017-10-08 12:19] VITALS: BP 110/63; PULSE 79; RESP 16; TEMP 98; O2SAT 94
--- NOTE | 2017-10-08 15:02 | HHI.PR ---
Subjective Remarks The patient is in bed. Swelling in his right wrist is improved. Can move his right wrist better. No fever or chills. No nausea or vomiting. Patient is not eating much. Objective Vitals Vital Signs Date Time Temp Pulse Resp B/P (MAP) Pulse Ox O2 Delivery O2 Flow Rate FiO2 10/08/17 12:19 98.0 79 16 110/63 (79) 94 10/08/17 08:38 97.6 73 17 105/76 (86) 95 10/08/17 04:00 97.3 64 18 116/56 (76) 98 10/08/17 00:00 97.8 65 18 100/68 (79) 97 10/07/17 20:00 97.5 80 18 115/66 (82) 98 10/07/17 16:03 97.8 69 17 101/67 (78) 96 I/O 10/07/17 10/07/17 10/07/17 10/08/17 10/08/17 10/08/17 07:00 15:00 23:00 07:00 15:00 23:00 Output Total 4 ml Balance -4 ml Output Urine Total 4 ml # Voids 3 1 1 Imaging Last Impressions Wrist MRI 10/05/17 0000 Signed Impressions: Service Date/Time: Thursday, October 05, 2017 12:00 - CONCLUSION: 1. No evidence of osteomyelitis. 2. Effusion in the proximal carpal row and in the radiocarpal joint. Fermin Duggan MD Upper Extremity Ultrasound 10/03/17 0000 Signed Impressions: Service Date/Time: Monday, October 02, 2017 14:57 - CONCLUSION: 1. Negative for deep venous thrombosis right upper extremity. Fermin Duggan MD Wrist X-Ray 10/02/17 0000 Signed Impressions: Service Date/Time: Monday, October 02, 2017 10:18 - CONCLUSION: Unremarkable exam. No significant change compared to the prior study. Wade Butler MD Renal Ultrasound 09/24/17 0000 Signed Impressions: Service Date/Time: Sunday, September 24, 2017 09:53 - CONCLUSION: Negative for stone or obstruction. Silvestre Iniguez MD FACR Head CT 08/28/17 0000 Signed Impressions: Service Date/Time: Monday, August 28, 2017 06:05 - CONCLUSION: 1. No acute intracranial hemorrhage. 2. Stable diffuse bilateral cortical atrophy. 3. No significant change compared to the prior exam. Wade Butler MD Cervical Spine CT 08/28/17 0000 Signed Impressions: Service Date/Time: Monday, August 28, 2017 06:08 - CONCLUSION: 1. No acute bony fracture. 2. Stable diffuse primary degenerative changes involving the cervical spine. 3. No new or significant changes. Wade Butler MD Objective Remarks GENERAL: Resting comfortably HEAD: Normocephalic. EYES: No scleral icterus. No injection or drainage. NECK: Supple, trachea midline. No JVD. CARDIOVASCULAR: Regular rate and rhythm without murmurs, gallops, or rubs. RESPIRATORY: Breath sounds equal bilaterally, poor effort. No accessory muscle use. GASTROINTESTINAL: Abdomen soft, round, non-tender, nondistended. Normoactive bowel sounds in all quadrants. MUSCULOSKELETAL: Right wrist edema, improving, no erythema, no open wound. There is pain with palpation and decreased ROM 2/2 pain improving. Neurovascular intact. No cyanosis,no LE edema. NEUROLOGIC: Able to respond oriented x1, moves all extremities, speech is clear. Procedures None A/P Problem List: (1) Encephalopathy ICD Code: G93.40 - Encephalopathy Status: Acute (2) Alcohol-induced mood disorder ICD Code: F10.94 - Alcohol use, unspecified with alcohol-induced mood disorder Status: Acute (3) Debility ICD Code: R53.81 - Other malaise (4) COPD (chronic obstructive pulmonary disease) ICD Code: J44.9 - COPD (chronic obstructive pulmonary disease) Status: Chronic (5) PTSD (post-traumatic stress disorder) ICD Code: F43.10 - Post-traumatic stress disorder, unspecified Assessment and Plan 62-year-old man with UTI growing E. Coli Elevated PSA - Continue Levaquin (started on 09/26) - Drop in WBC count, continue monitoring periodically -Urology consulted for elevated PSA, recommendations appreciated -Complete course of antibiotics, continue Flomax, repeat UA and PSA on an outpatient basis. Aggressive behavior, encephalopathy: the Avelar act was lifted by psychiatry Continue Seroquel, sertraline. Currently on lactulose, Ammonia level on 09/22 was 39. More awake and alert. Right wrist pain and swelling, improving. X ray reviewed no fracture. We will do ultrasound. Pain control with norco as need pr pain scale. Consult orthopedic doctor for further evaluation. MRI wrist ordered however [atient not tolerating and MRI was not done as he could not stay still and was moving hi thanh. Ortho recommends pain meds, warm compresses, no blood draw on right arm, monitor. If not improved will attempt to do MRI per ortho appreciate recommendations. MRI 10/05/17 of right wrist reviewed no stomatitis. Shows swelling. No CBC, BMP, the patient is refusing labs at this time. He is afebrile. Thrombocytopenia: -Chronic, at baseline. PLTs stable, H&H stable with no reported bleeding. Seizure disorder: -Continue Depakote, Keppra. Seizure precautions. PTSD, personality disorder: -Appreciate psychiatry recommendations. -Continue Seroquel. Trazodone daily at bedtime. COPD: -s/p Prednisone taper, currently stable on room air. Generalized weakness: - Patient has chronic debility likely secondary to chronic alcohol abuse. - Continue PT Decreased Appetite. Add multiVitamins DVT prophylaxis: Heparin. Discussed with nurse, patient. Iris Hanson MD Oct 08, 2017 15:02
[2017-10-08] MEDS: ACETAMINOPHEN/HYDROcodone 325 MG/5 MG TAB PO PRN (15:57)
[2017-10-08 16:15] VITALS: BP 109/74; PULSE 78; RESP 18; TEMP 97.4; O2SAT 94
[2017-10-08 20:00] VITALS: BP 110/58; PULSE 69; RESP 18; TEMP 97.5; O2SAT 94
[2017-10-08] MEDS: traZODone HCL 100 MG TAB PO SCH (21:09)
[2017-10-08] MEDS: QUEtiapine FUMARATE 25 MG TAB PO SCH (21:09)
[2017-10-08] MEDS: DIVALPROEX SODIUM E.R. 500 MG TAB PO SCH (21:09)
[2017-10-09] VITALS: BP 115/82; PULSE 81; RESP 20; TEMP 97; O2SAT 98
[2017-10-09 04:00] VITALS: BP 102/58; PULSE 59; RESP 18; TEMP 98; O2SAT 95
[2017-10-09 08:00] VITALS: BP 110/69; PULSE 59; RESP 16; TEMP 98; O2SAT 96
[2017-10-09] MEDS: LEVOFLOXACIN 500 MG TAB PO SCH (08:26)
[2017-10-09] MEDS: levETIRAcetam 500 MG TAB PO SCH ×2 (08:26→21:37)
[2017-10-09] MEDS: MULTIVITAMIN TAB PO SCH (08:26)
[2017-10-09] MEDS: SERTRALINE HCL 100 MG TAB PO SCH (08:27)
[2017-10-09] MEDS: SODIUM CHLORIDE 0.9% FLUSH 10 ML FLUSH IV FLUSH SCH ×2 (08:27→21:43)
[2017-10-09] MEDS: TAMSULOSIN HCL 0.4 MG CAP PO SCH (08:27)
[2017-10-09] MEDS: LACTULOSE SYRUP 20 GM/30 ML CUP PO SCH ×2 (08:27→21:37)
[2017-10-09] MEDS: DOCUSATE SODIUM 50 MG/SENNA 8.6 MG TAB PO SCH ×2 (08:27→21:00)
[2017-10-09 12:00] VITALS: BP 102/59; PULSE 68; RESP 16; TEMP 98.7; O2SAT 97
[2017-10-09] MEDS: ACETAMINOPHEN/HYDROcodone 325 MG/5 MG TAB PO PRN ×3 (12:35→23:50)
[2017-10-09] MEDS: ENOXAPARIN SODIUM 30 MG/0.3 ML SYRINGE SQ SCH (12:35)
--- NOTE | 2017-10-09 13:45 | HHI.PR ---
Subjective Remarks Swelling in his right reasons improved. Says he can move better the wrist pain is better controlled. Eating a little bit better. No nausea or vomiting no diarrhea or constipation. No fever or chills. Objective Vitals Vital Signs Date Time Temp Pulse Resp B/P (MAP) Pulse Ox O2 Delivery O2 Flow Rate FiO2 10/09/17 12:00 98.7 68 16 102/59 (73) 97 10/09/17 08:00 98.0 59 16 110/69 (83) 96 10/09/17 04:00 98.0 59 18 102/58 (73) 95 10/09/17 00:00 97.0 81 20 115/82 (93) 98 10/08/17 20:00 97.5 69 18 110/58 (75) 94 10/08/17 16:15 97.4 78 18 109/74 (86) 94 I/O 10/08/17 10/08/17 10/08/17 10/09/17 10/09/17 10/09/17 07:00 15:00 23:00 07:00 15:00 23:00 Intake Total 480 ml Output Total 4 ml Balance -4 ml 480 ml Intake Oral 480 ml Output Urine Total 4 ml # Voids 1 2 Objective Remarks GENERAL: Resting comfortably HEAD: Normocephalic. EYES: No scleral icterus. No injection or drainage. NECK: Supple, trachea midline. No JVD. CARDIOVASCULAR: Regular rate and rhythm without murmurs, gallops, or rubs. RESPIRATORY: Breath sounds equal bilaterally, poor effort. No accessory muscle use. GASTROINTESTINAL: Abdomen soft, round, non-tender, nondistended. Normoactive bowel sounds in all quadrants. MUSCULOSKELETAL: Right wrist edema, improving, no erythema, no open wound. There is pain with palpation and decreased ROM 2/2 pain improving. Neurovascular intact. No cyanosis,no LE edema. NEUROLOGIC: Able to respond oriented x1, moves all extremities, speech is clear. Procedures None A/P Problem List: (1) Encephalopathy ICD Code: G93.40 - Encephalopathy Status: Acute (2) Alcohol-induced mood disorder ICD Code: F10.94 - Alcohol use, unspecified with alcohol-induced mood disorder Status: Acute (3) Debility ICD Code: R53.81 - Other malaise (4) COPD (chronic obstructive pulmonary disease) ICD Code: J44.9 - COPD (chronic obstructive pulmonary disease) Status: Chronic (5) PTSD (post-traumatic stress disorder) ICD Code: F43.10 - Post-traumatic stress disorder, unspecified Assessment and Plan 62-year-old man with UTI growing E. Coli Elevated PSA - Continue Levaquin (started on 09/26) - Drop in WBC count, continue monitoring periodically -Urology consulted for elevated PSA, recommendations appreciated -Complete course of antibiotics, continue Flomax, repeat UA and PSA on an outpatient basis. Aggressive behavior, encephalopathy: the Avelar act was lifted by psychiatry Continue Seroquel, sertraline. Currently on lactulose, Ammonia level on 09/22 was 39. More awake and alert. Right wrist pain and swelling, improving. X ray reviewed no fracture. We will do ultrasound. Pain control with norco as need pr pain scale. Consult orthopedic doctor for further evaluation. MRI wrist ordered however [atient not tolerating and MRI was not done as he could not stay still and was moving hi thanh. Ortho recommends pain meds, warm compresses, no blood draw on right arm, monitor. If not improved will attempt to do MRI per ortho appreciate recommendations. MRI 10/05/17 of right wrist reviewed no stomatitis. Shows swelling. No CBC, BMP, the patient is refusing labs at this time. He is afebrile. Thrombocytopenia: -Chronic, at baseline. PLTs stable, H&H stable with no reported bleeding. Seizure disorder: -Continue Depakote, Keppra. Seizure precautions. PTSD, personality disorder: -Appreciate psychiatry recommendations. -Continue Seroquel. Trazodone daily at bedtime. COPD: -s/p Prednisone taper, currently stable on room air. Generalized weakness: - Patient has chronic debility likely secondary to chronic alcohol abuse. - Continue PT Decreased Appetite. Add multiVitamins DVT prophylaxis: Heparin. Discussed with nurse, patient. Iris Hanson MD Oct 09, 2017 13:45
[2017-10-09 16:00] VITALS: BP 128/67; PULSE 102; RESP 16; TEMP 97.5; O2SAT 96
[2017-10-09 20:15] VITALS: BP 120/89; PULSE 67; RESP 20; TEMP 97.7; O2SAT 98
[2017-10-09] MEDS: QUEtiapine FUMARATE 25 MG TAB PO SCH (21:36)
[2017-10-09] MEDS: DIVALPROEX SODIUM E.R. 500 MG TAB PO SCH (21:36)
[2017-10-09] MEDS: traZODone HCL 100 MG TAB PO SCH (21:37)
[2017-10-10 00:40] VITALS: BP 118/89; PULSE 69; RESP 17; TEMP 97.9; O2SAT 96
[2017-10-10 08:00] VITALS: BP 99/64; PULSE 66; RESP 16; TEMP 98.6; O2SAT 95
[2017-10-10] MEDS: LACTULOSE SYRUP 20 GM/30 ML CUP PO SCH ×2 (08:25→20:42)
[2017-10-10] MEDS: SERTRALINE HCL 100 MG TAB PO SCH (08:25)
[2017-10-10] MEDS: TAMSULOSIN HCL 0.4 MG CAP PO SCH (08:25)
[2017-10-10] MEDS: MULTIVITAMIN TAB PO SCH (08:25)
[2017-10-10] MEDS: LEVOFLOXACIN 500 MG TAB PO SCH (08:26)
[2017-10-10] MEDS: SODIUM CHLORIDE 0.9% FLUSH 10 ML FLUSH IV FLUSH SCH ×2 (08:26→20:43)
[2017-10-10] MEDS: levETIRAcetam 500 MG TAB PO SCH ×2 (08:26→20:42)
[2017-10-10] MEDS: DOCUSATE SODIUM 50 MG/SENNA 8.6 MG TAB PO SCH ×2 (08:27→20:48)
--- NOTE | 2017-10-10 11:07 | HHI.PR ---
Subjective Remarks f/u for encephalopathy and right wrist pain patient is hard of hearing. Per patient's nurse and her tech he had decrease intake but that is intermittent. Patient stated he did not have any appetite. mild improvement with right wrist, but he stated he continues to have pain. no other complaints. no other events overnight. Objective Vitals Vital Signs Date Time Temp Pulse Resp B/P (MAP) Pulse Ox O2 Delivery O2 Flow Rate FiO2 10/10/17 08:00 98.6 66 16 99/64 (76) 95 10/10/17 00:40 97.9 69 17 118/89 (99) 96 10/09/17 20:15 97.7 67 20 120/89 (99) 98 10/09/17 16:00 97.5 102 16 128/67 (87) 96 10/09/17 12:00 98.7 68 16 102/59 (73) 97 I/O 10/09/17 10/09/17 10/09/17 10/10/17 10/10/17 10/10/17 07:00 15:00 23:00 07:00 15:00 23:00 Intake Total 1000 ml 1500 ml Balance 1000 ml 1500 ml Intake Oral 1000 ml 1500 ml # Voids 2 1 2 # Bowel Movements 1 0 Objective Remarks GENERAL: in NAD CARDIOVASCULAR: Regular rate and rhythm without murmurs, gallops, or rubs. RESPIRATORY: Breath sounds equal bilaterally. No accessory muscle use. GASTROINTESTINAL: Abdomen soft, non-tender, nondistended. MUSCULOSKELETAL: right wrist weith mild erythema and swelling. unable to get full ROM due to pain. sensation intact. radial pulse intact. Procedures None Medications and IVs Current Medications Lorazepam (Ativan Inj) 1 mg ONCE ONCE IM Last administered on 08/28/17at 01:23 ; Start 08/28/17 at 01:00; Stop 08/28/17 at 01:01; Status DC Haloperidol Lactate (Haldol Inj) 2 mg ONCE ONCE IM Last administered on 01:23; Start 08/28/17 at 01:00; Stop 08/28/17 at 01:01; Status DC Diphenhydramine HCl (Benadryl Inj) 25 mg ONCE ONCE IM Last administered on at :23; Start 08/28/17 at 01:00; Stop 08/28/17 at 01:01; Status DC Lorazepam (Ativan Inj) 2 mg ONCE ONCE IM Last administered on 08/28/17at 02:42 ; Start 08/28/17 at 02:30; Stop 08/28/17 at 02:31; Status DC Diphenhydramine HCl (Benadryl Inj) 25 mg ONCE ONCE IM Last administered on at 02:43; Start 08/28/17 at 02:30; Stop 08/28/17 at 02:31; Status DC Haloperidol Lactate (Haldol Inj) 2 mg ONCE ONCE IM Last administered on at 02:43; Start 08/28/17 at 02:30; Stop 08/28/17 at 02:31; Status DC Lorazepam (Ativan Inj) 2 mg ONCE ONCE IV PUSH ; Start 08/28/17 at 02:45; Stop 08/28/17 at 02:46; Status DC Lorazepam (Ativan Inj) 2 mg ONCE ONCE IM Last administered on 08/28/17at 05:48 ; Start 08/28/17 at 05:45; Stop 08/28/17 at 05:46; Status DC Sodium Chloride (NS Flush) 2 ml UNSCH PRN IV FLUSH FLUSH AFTER USING IV ACCESS ; Start 08/28/17 at 12:45; Stop 08/29/17 at 11:15; Status DC Haloperidol Lactate (Haldol Inj) 2 mg ONCE ONCE IM Last administered on at 13:50; Start 08/28/17 at 13:30; Stop 08/28/17 at 13:31; Status DC Potassium Bicarb/ Potassium Chloride (K-Lyte Cl Eff) 25 meq ONCE ONCE PO Last administered on 08/28/17at 15:41; Start 08/28/17 at 15:30; Stop 08/28/17 at 15:31; Status DC Potassium Bicarb/ Potassium Chloride (K-Lyte Cl Eff) 50 meq ONCE ONCE PO Last administered on 08/28/17at 18:09; Start 08/28/17 at 17:00; Stop 08/28/17 at 17:24; Status DC Lactulose (Lactulose Liq) 30 ml BID PO Last administered on 10/10/17at 08:25; Start 08/28/17 at 21:00 Sodium Chloride (NS Flush) 2 ml UNSCH PRN IV FLUSH FLUSH AFTER USING IV ACCESS ; Start 08/28/17 at 17:00 Sodium Chloride (NS Flush) 2 ml BID IV FLUSH Last administered on 10/10/17 08: 26; Start 08/28/17 at 21:00 Ondansetron HCl (Zofran Inj) 4 mg Q6H PRN IVP NAUSEA OR VOMITING; Start at 17:00 Heparin Sodium (Porcine) (Heparin Inj) 5,000 units Q12H SQ Last administered on 09/23/17 06:14; Start 08/28/17 at 18:00; Stop 09/25/17 at 10:57; Status DC Naloxone HCl (Narcan Inj) 0.4 mg UNSCH PRN IV PUSH SEE LABEL COMMENTS; Start at 17:00 Senna/Docusate Sodium (Leanne-Colace) 1 tab BID PO Last administered on 21:09; Start 08/28/17 at 21:00 Magnesium Hydroxide (Milk Of Magnesia Liq) 30 ml Q12H PRN PO Mild constipation Last administered on 09/22/17at 17:35; Start 08/28/17 at 17:00 Sennosides (Senokot) 17.2 mg Q12H PRN PO Moderate constipation; Start 08/28/17 at 17:00 Bisacodyl (Dulcolax Supp) 10 mg DAILY PRN RECTAL SEVERE CONSITIPATION; Start at 17:00 Lactulose (Lactulose Liq) 30 ml DAILY PRN PO SEVERE CONSITIPATION; Start at 17:00 Divalproex Sodium (Depakote Er) 1,000 mg HS PO Last administered on 10/09/17at 21:36; Start 08/28/17 at 21:00 Hydroxyzine HCl (Atarax) 50 mg Q6HR PRN PO ANXIETY Last administered on 08:12; Start 08/28/17 at 17:15 Levetriacetam (Keppra) 1,500 mg Q12HR PO Last administered on 10/10/17 08:26; Start 08/28/17 at 21:00 Quetiapine Fumarate (SEROquel) 25 mg HS PO Last administered on 08/28/17at 22:08 ; Start 08/28/17 at 21:00; Stop 08/29/17 at 17:53; Status DC Sertraline HCl (Zoloft) 200 mg DAILY PO Last administered on 10/10/17at 08:25; Start 08/29/17 at 09:00 Trazodone HCl (Desyrel) 200 mg HS PO Last administered on 10/09/17at 21:37; Start 08/28/17 at 21:00 Nitroglycerin (Nitroglycerin 2% Oint) 1 inch ONCE ONCE TOPICAL ; Start at 20:00; Stop 08/28/17 at 20:01; Status Cancel Potassium Chloride (KCl) 30 meq ONCE ONCE PO Last administered on 08/29/17at 13 :02; Start 08/29/17 at 11:30; Stop 08/29/17 at 11:31; Status DC Potassium Chloride 100 ml @ 50 mls/hr Q2H IV Last administered on 08/30/17at 02 :23; Start 08/29/17 at 12:00; Stop 08/29/17 at 15:59; Status DC Quetiapine Fumarate (SEROquel) 75 mg HS PO Last administered on 10/09/17at 21:36 ; Start 08/29/17 at 21:00 Clonidine (Catapres) 0.1 mg Q6H PRN PO SBP> OR = 170, DBP> OR = 100 Last administered on 09/09/17at 16:13; Start 08/29/17 at 18:30 Potassium Chloride (KCl) 30 meq ONCE ONCE PO Last administered on 08/30/17at 10 :31; Start 08/30/17 at 09:45; Stop 08/30/17 at 09:55; Status DC Potassium Chloride 100 ml @ 100 mls/hr Q1H IV Last administered on 08/30/17at 12:45; Start 08/30/17 at 09:45; Stop 08/30/17 at 13:44; Status DC Prednisone (Deltasone) 20 mg BID PO Last administered on 09/09/17at 22:02; Start 08/30/17 at 11:15; Stop 09/09/17 at 21:00; Status DC Albuterol Sulfate (Albuterol Neb) 1.25 mg Q6HR NEB NEB Last administered on at 21:46; Start 08/30/17 at 11:15; Stop 09/03/17 at 11:14; Status DC Prednisone (Deltasone) 30 mg DAILY PO Last administered on 09/21/17 10:00; Start 09/10/17 at 09:00; Stop 09/21/17 at 11:50; Status DC Acetaminophen (Tylenol) 650 mg Q4H PRN PO FEVER Last administered on 09/23/17 10:04; Start 09/23/17 at 09:45 Levofloxacin/ Dextrose 100 ml @ 100 mls/hr Q24H IV Last administered on 14:26; Start 09/23/17 at 15:00; Stop 09/25/17 at 18:19; Status DC Phenazopyridine HCl (Pyridium) 200 mg Q8HR PO Last administered on 09/25/17 05 :54; Start 09/23/17 at 14:15; Stop 09/25/17 at 11:01; Status DC Potassium Chloride/Dextrose/ Sod Cl 1,000 ml @ 75 mls/hr [id number] IV Last administered on 09/25/17 05:58; Start 09/23/17 at 14:15; Stop 09/25/17 at 10:57 ; Status DC Tamsulosin HCl (Flomax) 0.4 mg DAILY PO Last administered on 10/10/17 08:25; Start 09/24/17 at 10:15 Enoxaparin Sodium (Lovenox Inj) 30 mg Q24H SQ Last administered on 10/09/17 12 :35; Start 09/25/17 at 12:00 Levofloxacin (Levaquin) 500 mg DAILY PO Last administered on 10/10/17 08:26; Start 09/26/17 at 09:00 Tramadol HCl (Ultram) 50 mg Q8H PRN PO pain >5 Last administered on 10/06/17at 15:10; Start 09/27/17 at 21:45 Acetaminophen/ Hydrocodone Bitart ([place] 5-325 Mg) 1 tab Q6H PRN PO pain 1-5 Last administered on 10/09/17 23:50; Start 10/02/17 at 08:30 Multivitamins (Theragran) 1 tab DAILY PO Last administered on 2/25/18at 08:25; Start 10/08/17 at 09:00 A/P Problem List: (1) Encephalopathy ICD Code: G93.40 - Encephalopathy Status: Acute (2) Alcohol-induced mood disorder ICD Code: F10.94 - Alcohol use, unspecified with alcohol-induced mood disorder Status: Acute (3) Debility ICD Code: R53.81 - Other malaise (4) COPD (chronic obstructive pulmonary disease) ICD Code: J44.9 - COPD (chronic obstructive pulmonary disease) Status: Chronic (5) PTSD (post-traumatic stress disorder) ICD Code: F43.10 - Post-traumatic stress disorder, unspecified Assessment and Plan 62-year-old man with UTI growing E. Coli Elevated PSA - Continue Levaquin (started on 09/26) - Drop in WBC count, continue monitoring periodically -Urology consulted for elevated PSA, recommendations appreciated -Complete course of antibiotics, continue Flomax, repeat UA and PSA on an outpatient basis. Aggressive behavior, encephalopathy: improving the Avelar act was lifted by psychiatry Continue Seroquel, sertraline. Currently on lactulose, Ammonia level on 09/22 was 39. More awake and alert. Right wrist pain and swelling, improving. X ray reviewed no fracture. US negative. Pain control with norco as need pr pain scale. Consult orthopedic doctor for further evaluation. MRI 10/05/17 of right wrist reviewed negative. continue with pain controlled. Thrombocytopenia: -Chronic, at baseline. PLTs stable, H&H stable with no reported bleeding. Seizure disorder: -Continue Depakote, Keppra. Seizure precautions. PTSD, personality disorder: -Appreciate psychiatry recommendations. -Continue Seroquel. Trazodone daily at bedtime. COPD: -s/p Prednisone taper, currently stable on room air. Generalized weakness: - Patient has chronic debility likely secondary to chronic alcohol abuse. - Continue PT Decreased Appetite. Add multiVitamins DVT prophylaxis: Heparin. Discharge Planning pending placement. Sadie Hernandez MD Oct 10, 2017 11:07
[2017-10-10 12:00] VITALS: BP 105/62; PULSE 67; RESP 16; TEMP 98.3; O2SAT 96
[2017-10-10] MEDS: ENOXAPARIN SODIUM 30 MG/0.3 ML SYRINGE SQ SCH (12:45)
[2017-10-10] MEDS: ACETAMINOPHEN/HYDROcodone 325 MG/5 MG TAB PO PRN (12:45)
[2017-10-10 16:00] VITALS: BP 100/64; PULSE 73; RESP 16; TEMP 98.3; O2SAT 92
[2017-10-10 20:00] VITALS: BP 103/64; PULSE 98; RESP 18; TEMP 98.4; O2SAT 93
[2017-10-10] MEDS: QUEtiapine FUMARATE 25 MG TAB PO SCH (20:42)
[2017-10-10] MEDS: traMADol HCL 50 MG TAB PO PRN (20:42)
[2017-10-10] MEDS: DIVALPROEX SODIUM E.R. 500 MG TAB PO SCH (20:42)
[2017-10-10] MEDS: traZODone HCL 100 MG TAB PO SCH (20:42)
[2017-10-11] VITALS: BP 100/64; PULSE 82; RESP 18; TEMP 96.4; O2SAT 92
[2017-10-11 08:00] VITALS: BP 96/62; PULSE 63; RESP 18; TEMP 98.1; O2SAT 95
[2017-10-11] MEDS: LEVOFLOXACIN 500 MG TAB PO SCH (08:03)
[2017-10-11] MEDS: levETIRAcetam 500 MG TAB PO SCH ×2 (08:03→21:22)
[2017-10-11] MEDS: LACTULOSE SYRUP 20 GM/30 ML CUP PO SCH ×2 (08:03→21:19)
[2017-10-11] MEDS: DOCUSATE SODIUM 50 MG/SENNA 8.6 MG TAB PO SCH ×2 (08:03→21:20)
[2017-10-11] MEDS: SERTRALINE HCL 100 MG TAB PO SCH (08:03)
[2017-10-11] MEDS: TAMSULOSIN HCL 0.4 MG CAP PO SCH (08:03)
[2017-10-11] MEDS: SODIUM CHLORIDE 0.9% FLUSH 10 ML FLUSH IV FLUSH SCH ×2 (08:03→21:22)
[2017-10-11] MEDS: MULTIVITAMIN TAB PO SCH (08:03)
--- NOTE | 2017-10-11 11:22 | HHI.PR ---
Subjective Remarks f/u for wrist pain and placement patient stated wrist pain improved. he has no other complaints. He stated that he ate more yesterday. no other events or complaints. Objective Vitals Vital Signs Date Time Temp Pulse Resp B/P (MAP) Pulse Ox O2 Delivery O2 Flow Rate FiO2 10/11/17 08:00 98.1 63 18 96/62 (73) 95 10/11/17 00:00 96.4 82 18 100/64 (76) 92 10/10/17 20:00 98.4 98 18 103/64 (77) 93 10/10/17 16:00 98.3 73 16 100/64 (76) 92 10/10/17 12:00 98.3 67 16 105/62 (76) 96 I/O 10/10/17 10/10/17 10/10/17 10/11/17 10/11/17 10/11/17 07:00 15:00 23:00 07:00 15:00 23:00 Intake Total 1500 ml Balance 1500 ml Intake Oral 1500 ml # Voids 2 3 # Bowel Movements 0 1 Objective Remarks GENERAL: in NAD CARDIOVASCULAR: Regular rate and rhythm without murmurs, gallops, or rubs. RESPIRATORY: Breath sounds equal bilaterally. No accessory muscle use. GASTROINTESTINAL: Abdomen soft, non-tender, nondistended. MUSCULOSKELETAL: right wrist weith mild erythema and swelling. unable to get full ROM due to pain. sensation intact. radial pulse intact. Procedures None Medications and IVs Current Medications Lorazepam (Ativan Inj) 1 mg ONCE ONCE IM Last administered on 08/28/17 01:23 ; Start 08/28/17 at 01:00; Stop 08/28/17 at 01:01; Status DC Haloperidol Lactate (Haldol Inj) 2 mg ONCE ONCE IM Last administered on at 01:23; Start 08/28/17 at 01:00; Stop 08/28/17 at 01:01; Status DC Diphenhydramine HCl (Benadryl Inj) 25 mg ONCE ONCE IM Last administered on at 01:23; Start 08/28/17 at 01:00; Stop 08/28/17 at 01:01; Status DC Lorazepam (Ativan Inj) 2 mg ONCE ONCE IM Last administered on 08/28/17at 02:42 ; Start 08/28/17 at 02:30; Stop 08/28/17 at 02:31; Status DC Diphenhydramine HCl (Benadryl Inj) 25 mg ONCE ONCE IM Last administered on at 02:43; Start 08/28/17 at 02:30; Stop 08/28/17 at 02:31; Status DC Haloperidol Lactate (Haldol Inj) 2 mg ONCE ONCE IM Last administered on at 02:43; Start 08/28/17 at 02:30; Stop 08/28/17 at 02:31; Status DC Lorazepam (Ativan Inj) 2 mg ONCE ONCE IV PUSH ; Start 08/28/17 at 02:45; Stop 08/28/17 at 02:46; Status DC Lorazepam (Ativan Inj) 2 mg ONCE ONCE IM Last administered on 08/28/17at 05:48 ; Start 08/28/17 at 05:45; Stop 08/28/17 at 05:46; Status DC Sodium Chloride (NS Flush) 2 ml UNSCH PRN IV FLUSH FLUSH AFTER USING IV ACCESS ; Start 08/28/17 at 12:45; Stop 08/29/17 at 11:15; Status DC Haloperidol Lactate (Haldol Inj) 2 mg ONCE ONCE IM Last administered on at 13:50; Start 08/28/17 at 13:30; Stop 08/28/17 at 13:31; Status DC Potassium Bicarb/ Potassium Chloride (K-Lyte Cl Eff) 25 meq ONCE ONCE PO Last administered on 08/28/17at 15:41; Start 08/28/17 at 15:30; Stop 08/28/17 at 15:31; Status DC Potassium Bicarb/ Potassium Chloride (K-Lyte Cl Eff) 50 meq ONCE ONCE PO Last administered on 08/28/17at 18:09; Start 08/28/17 at 17:00; Stop 08/28/17 at 17:24; Status DC Lactulose (Lactulose Liq) 30 ml BID PO Last administered on 10/11/17at 08:03; Start 08/28/17 at 21:00 Sodium Chloride (NS Flush) 2 ml UNSCH PRN IV FLUSH FLUSH AFTER USING IV ACCESS ; Start 08/28/17 at 17:00 Sodium Chloride (NS Flush) 2 ml BID IV FLUSH Last administered on 10/11/17 08: 03; Start 08/28/17 at 21:00 Ondansetron HCl (Zofran Inj) 4 mg Q6H PRN IVP NAUSEA OR VOMITING; Start at 17:00 Heparin Sodium (Porcine) (Heparin Inj) 5,000 units Q12H SQ Last administered on 09/23/17at 06:14; Start 08/28/17 at 18:00; Stop 09/25/17 at 10:57; Status DC Naloxone HCl (Narcan Inj) 0.4 mg UNSCH PRN IV PUSH SEE LABEL COMMENTS; Start at 17:00 Senna/Docusate Sodium (Leanne-Colace) 1 tab BID PO Last administered on at 21:09; Start 08/28/17 at 21:00 Magnesium Hydroxide (Milk Of Magnesia Liq) 30 ml Q12H PRN PO Mild constipation Last administered on 09/22/17at 17:35; Start 08/28/17 at 17:00 Sennosides (Senokot) 17.2 mg Q12H PRN PO Moderate constipation; Start 08/28/17 at 17:00 Bisacodyl (Dulcolax Supp) 10 mg DAILY PRN RECTAL SEVERE CONSITIPATION; Start at 17:00 Lactulose (Lactulose Liq) 30 ml DAILY PRN PO SEVERE CONSITIPATION; Start at 17:00 Divalproex Sodium (Depakote Er) 1,000 mg HS PO Last administered on 10/10/17at 20:42; Start 08/28/17 at 21:00 Hydroxyzine HCl (Atarax) 50 mg Q6HR PRN PO ANXIETY Last administered on at 08:12; Start 08/28/17 at 17:15 Levetriacetam (Keppra) 1,500 mg Q12HR PO Last administered on 10/11/17at 08:03; Start 08/28/17 at 21:00 Quetiapine Fumarate (SEROquel) 25 mg HS PO Last administered on 08/28/17at 22:08 ; Start 08/28/17 at 21:00; Stop 08/29/17 at 17:53; Status DC Sertraline HCl (Zoloft) 200 mg DAILY PO Last administered on 10/11/17at 08:03; Start 08/29/17 at 09:00 Trazodone HCl (Desyrel) 200 mg HS PO Last administered on 10/10/17at 20:42; Start 08/28/17 at 21:00 Nitroglycerin (Nitroglycerin 2% Oint) 1 inch ONCE ONCE TOPICAL ; Start at 20:00; Stop 08/28/17 at 20:01; Status Cancel Potassium Chloride (KCl) 30 meq ONCE ONCE PO Last administered on 08/29/17at 13 :02; Start 08/29/17 at 11:30; Stop 08/29/17 at 11:31; Status DC Potassium Chloride 100 ml @ 50 mls/hr Q2H IV Last administered on 08/30/17at 02 :23; Start 08/29/17 at 12:00; Stop 08/29/17 at 15:59; Status DC Quetiapine Fumarate (SEROquel) 75 mg HS PO Last administered on 10/10/17at 20:42 ; Start 08/29/17 at 21:00 Clonidine (Catapres) 0.1 mg Q6H PRN PO SBP> OR = 170, DBP> OR = 100 Last administered on 09/09/17at 16:13; Start 08/29/17 at 18:30 Potassium Chloride (KCl) 30 meq ONCE ONCE PO Last administered on 08/30/17at 10 :31; Start 08/30/17 at 09:45; Stop 08/30/17 at 09:55; Status DC Potassium Chloride 100 ml @ 100 mls/hr Q1H IV Last administered on 08/30/17at 12:45; Start 08/30/17 at 09:45; Stop 08/30/17 at 13:44; Status DC Prednisone (Deltasone) 20 mg BID PO Last administered on 09/09/17at 22:02; Start 08/30/17 at 11:15; Stop 09/09/17 at 21:00; Status DC Albuterol Sulfate (Albuterol Neb) 1.25 mg Q6HR NEB NEB Last administered on at 21:46; Start 08/30/17 at 11:15; Stop 09/03/17 at 11:14; Status DC Prednisone (Deltasone) 30 mg DAILY PO Last administered on 09/21/17 10:00; Start 09/10/17 at 09:00; Stop 09/21/17 at 11:50; Status DC Acetaminophen (Tylenol) 650 mg Q4H PRN PO FEVER Last administered on 09/23/17 10:04; Start 09/23/17 at 09:45 Levofloxacin/ Dextrose 100 ml @ 100 mls/hr Q24H IV Last administered on at 14:26; Start 09/23/17 at 15:00; Stop 09/25/17 at 18:19; Status DC Phenazopyridine HCl (Pyridium) 200 mg Q8HR PO Last administered on 09/25/17 05 :54; Start 09/23/17 at 14:15; Stop 09/25/17 at 11:01; Status DC Potassium Chloride/Dextrose/ Sod Cl 1,000 ml @ 75 mls/hr [id number] IV Last administered on 09/25/17 05:58; Start 09/23/17 at 14:15; Stop 09/25/17 at 10:57 ; Status DC Tamsulosin HCl (Flomax) 0.4 mg DAILY PO Last administered on 10/11/17 08:03; Start 09/24/17 at 10:15 Enoxaparin Sodium (Lovenox Inj) 30 mg Q24H SQ Last administered on 10/10/17 12 :45; Start 09/25/17 at 12:00 Levofloxacin (Levaquin) 500 mg DAILY PO Last administered on 10/11/17 08:03; Start 09/26/17 at 09:00 Tramadol HCl (Ultram) 50 mg Q8H PRN PO pain >5 Last administered on 10/10/17at 20:42; Start 09/27/17 at 21:45 Acetaminophen/ Hydrocodone Bitart ([place] 5-325 Mg) 1 tab Q6H PRN PO pain 1-5 Last administered on 10/10/17 12:45; Start 10/02/17 at 08:30 Multivitamins (Theragran) 1 tab DAILY PO Last administered on 10/11/17 08:03; Start 10/08/17 at 09:00 A/P Problem List: (1) Encephalopathy ICD Code: G93.40 - Encephalopathy Status: Acute (2) Alcohol-induced mood disorder ICD Code: F10.94 - Alcohol use, unspecified with alcohol-induced mood disorder Status: Acute (3) Debility ICD Code: R53.81 - Other malaise (4) COPD (chronic obstructive pulmonary disease) ICD Code: J44.9 - COPD (chronic obstructive pulmonary disease) Status: Chronic (5) PTSD (post-traumatic stress disorder) ICD Code: F43.10 - Post-traumatic stress disorder, unspecified Assessment and Plan 62-year-old man with UTI growing E. Coli Elevated PSA - Continue Levaquin (started on 09/26) - Drop in WBC count, continue monitoring periodically -Urology consulted for elevated PSA, recommendations appreciated -Complete course of antibiotics, continue Flomax, repeat UA and PSA on an outpatient basis. Aggressive behavior, encephalopathy: improving the Avelar act was lifted by psychiatry Continue Seroquel, sertraline. Currently on lactulose, Ammonia level on 09/22 was 39. More awake and alert. Right wrist pain and swelling, improving. X ray reviewed no fracture. US negative. Pain control with norco as need pr pain scale. orthopedic doctor for consulted recommended MRI. MRI 10/05/17 of right wrist reviewed negative. continue with pain controlled. Thrombocytopenia: -Chronic, at baseline. PLTs stable, H&H stable with no reported bleeding. Seizure disorder: -Continue Depakote, Keppra. Seizure precautions. PTSD, personality disorder: -Appreciate psychiatry recommendations. -Continue Seroquel. Trazodone daily at bedtime. COPD: -s/p Prednisone taper, currently stable on room air. Generalized weakness: - Patient has chronic debility likely secondary to chronic alcohol abuse. - Continue PT Decreased Appetite. Add multiVitamins DVT prophylaxis: Heparin. Discharge Planning pending placement. Sadie Hernandez MD Oct 11, 2017 11:22
[2017-10-11 12:00] VITALS: BP 120/69; PULSE 77; RESP 18; TEMP 97.6; O2SAT 98
[2017-10-11] MEDS: ENOXAPARIN SODIUM 30 MG/0.3 ML SYRINGE SQ SCH (12:22)
[2017-10-11] MEDS: ACETAMINOPHEN/HYDROcodone 325 MG/5 MG TAB PO PRN ×2 (12:23→21:22)
[2017-10-11 16:00] VITALS: BP 102/61; PULSE 61; RESP 16; TEMP 98; O2SAT 95
[2017-10-11] MEDS: traMADol HCL 50 MG TAB PO PRN (18:05)
[2017-10-11] MEDS: DIVALPROEX SODIUM E.R. 500 MG TAB PO SCH (21:20)
[2017-10-11] MEDS: QUEtiapine FUMARATE 25 MG TAB PO SCH (21:20)
[2017-10-11] MEDS: traZODone HCL 100 MG TAB PO SCH (21:22)
[2017-10-11 21:28] VITALS: BP 115/66; PULSE 69; RESP 18; TEMP 98.1; O2SAT 96
[2017-10-12] VITALS (14 sets, daily range): BP systolic 72–123; BP diastolic 49–76; PULSE 60–89; RESP 16–19; TEMP 97.4–98.4; O2SAT 93–98
[2017-10-12] MEDS ORDERED: SODIUM CHLORID 0.9% 500 ML INJ 500 ML IV ONE (04:15)
[2017-10-12] MEDS: LACTULOSE SYRUP 20 GM/30 ML CUP PO SCH ×2 (08:36→20:40)
[2017-10-12] MEDS: LEVOFLOXACIN 500 MG TAB PO SCH (08:37)
[2017-10-12] MEDS: levETIRAcetam 500 MG TAB PO SCH ×2 (08:37→20:41)
[2017-10-12] MEDS: DOCUSATE SODIUM 50 MG/SENNA 8.6 MG TAB PO SCH ×2 (08:37→20:40)
[2017-10-12] MEDS: SODIUM CHLORIDE 0.9% FLUSH 10 ML FLUSH IV FLUSH SCH ×2 (08:37→20:42)
[2017-10-12] MEDS: MULTIVITAMIN TAB PO SCH (08:37)
[2017-10-12] MEDS: TAMSULOSIN HCL 0.4 MG CAP PO SCH (08:37)
[2017-10-12] MEDS: SERTRALINE HCL 100 MG TAB PO SCH (08:47)
[2017-10-12] MEDS: SODIUM CHLOR 0.9% 1000 ML INJ 1,000 ML IV SCH ×2 (09:45→17:45)
[2017-10-12] MEDS ORDERED: SODIUM CHLOR 0.9% 1000 ML INJ 1,000 ML IV ONE (09:45)
--- NOTE | 2017-10-12 11:23 | HHI.PR ---
Subjective Remarks f/u for placement last night patient was hypotensive with no tachycardia. he was given a fluid bolus with improvement with his BP. patient is not taking much PO intake. He denied any concerns. wrist pain improving. Patient remains afebrile. He denies any shortness of breathing or urinary symptoms. He said that when he tried to get this morning he did feel lightheadedness. Otherwise had no other complaints. Discussed case with patient's nurse. Objective Vitals Vital Signs Date Time Temp Pulse Resp B/P (MAP) Pulse Ox O2 Delivery O2 Flow Rate FiO2 10/12/17 10:46 101/63 (76) 10/12/17 08:50 97.6 60 18 72/50 (57) 94 10/12/17 08:50 89/61 (70) 10/12/17 05:53 70 18 108/68 (81) 95 10/12/17 05:52 97.4 63 18 88/54 (65) 95 10/12/17 04:56 66 19 87/54 (65) 96 10/12/17 04:29 63 18 89/54 (66) 94 10/12/17 03:37 98.0 62 18 73/49 (57) 95 10/12/17 01:27 98.0 80 18 104/76 (85) 95 10/11/17 22:22 18 10/11/17 21:28 98.1 69 18 115/66 (82) 96 10/11/17 16:00 98.0 61 16 102/61 (75) 95 10/11/17 12:00 97.6 77 18 120/69 (86) 98 I/O 10/11/17 10/11/17 10/11/17 10/12/17 10/12/17 10/12/17 07:00 15:00 23:00 07:00 15:00 23:00 Intake Total 480 ml 500 ml Balance 480 ml 500 ml Intake Oral 480 ml IV Total 500 ml # Voids 1 Objective Remarks GENERAL: in NAD CARDIOVASCULAR: Regular rate and rhythm without murmurs, gallops, or rubs. RESPIRATORY: Breath sounds equal bilaterally. No accessory muscle use. GASTROINTESTINAL: Abdomen soft, non-tender, nondistended. MUSCULOSKELETAL: right wrist weith mild erythema and swelling. unable to get full ROM due to pain. sensation intact. radial pulse intact. Procedures None Medications and IVs Current Medications Lorazepam (Ativan Inj) 1 mg ONCE ONCE IM Last administered on 08/28/17at 01:23 ; Start 08/28/17 at 01:00; Stop 08/28/17 at 01:01; Status DC Haloperidol Lactate (Haldol Inj) 2 mg ONCE ONCE IM Last administered on at 01:23; Start 08/28/17 at 01:00; Stop 08/28/17 at 01:01; Status DC Diphenhydramine HCl (Benadryl Inj) 25 mg ONCE ONCE IM Last administered on at 01:23; Start 08/28/17 at 01:00; Stop 08/28/17 at 01:01; Status DC Lorazepam (Ativan Inj) 2 mg ONCE ONCE IM Last administered on 08/28/17at 02:42 ; Start 08/28/17 at 02:30; Stop 08/28/17 at 02:31; Status DC Diphenhydramine HCl (Benadryl Inj) 25 mg ONCE ONCE IM Last administered on at 02:43; Start 08/28/17 at 02:30; Stop 08/28/17 at 02:31; Status DC Haloperidol Lactate (Haldol Inj) 2 mg ONCE ONCE IM Last administered on at 02:43; Start 08/28/17 at 02:30; Stop 08/28/17 at 02:31; Status DC Lorazepam (Ativan Inj) 2 mg ONCE ONCE IV PUSH ; Start 08/28/17 at 02:45; Stop 08/28/17 at 02:46; Status DC Lorazepam (Ativan Inj) 2 mg ONCE ONCE IM Last administered on 08/28/17at 05:48 ; Start 08/28/17 at 05:45; Stop 08/28/17 at 05:46; Status DC Sodium Chloride (NS Flush) 2 ml UNSCH PRN IV FLUSH FLUSH AFTER USING IV ACCESS ; Start 08/28/17 at 12:45; Stop 08/29/17 at 11:15; Status DC Haloperidol Lactate (Haldol Inj) 2 mg ONCE ONCE IM Last administered on at 13:50; Start 08/28/17 at 13:30; Stop 08/28/17 at 13:31; Status DC Potassium Bicarb/ Potassium Chloride (K-Lyte Cl Eff) 25 meq ONCE ONCE PO Last administered on 08/28/17at 15:41; Start 08/28/17 at 15:30; Stop 08/28/17 at 15:31; Status DC Potassium Bicarb/ Potassium Chloride (K-Lyte Cl Eff) 50 meq ONCE ONCE PO Last administered on 08/28/17at 18:09; Start 08/28/17 at 17:00; Stop 08/28/17 at 17:24; Status DC Lactulose (Lactulose Liq) 30 ml BID PO Last administered on 10/12/17at 08:36; Start 08/28/17 at 21:00 Sodium Chloride (NS Flush) 2 ml UNSCH PRN IV FLUSH FLUSH AFTER USING IV ACCESS ; Start 08/28/17 at 17:00 Sodium Chloride (NS Flush) 2 ml BID IV FLUSH Last administered on 10/12/17at 08: 37; Start 08/28/17 at 21:00 Ondansetron HCl (Zofran Inj) 4 mg Q6H PRN IVP NAUSEA OR VOMITING; Start at 17:00 Heparin Sodium (Porcine) (Heparin Inj) 5,000 units Q12H SQ Last administered on 09/23/17at 06:14; Start 08/28/17 at 18:00; Stop 09/25/17 at 10:57; Status DC Naloxone HCl (Narcan Inj) 0.4 mg UNSCH PRN IV PUSH SEE LABEL COMMENTS; Start at 17:00 Senna/Docusate Sodium (Leanne-Colace) 1 tab BID PO Last administered on at 08:37; Start 08/28/17 at 21:00 Magnesium Hydroxide (Milk Of Magnesia Liq) 30 ml Q12H PRN PO Mild constipation Last administered on 09/22/17at 17:35; Start 08/28/17 at 17:00 Sennosides (Senokot) 17.2 mg Q12H PRN PO Moderate constipation; Start 08/28/17 at 17:00 Bisacodyl (Dulcolax Supp) 10 mg DAILY PRN RECTAL SEVERE CONSITIPATION; Start at 17:00 Lactulose (Lactulose Liq) 30 ml DAILY PRN PO SEVERE CONSITIPATION; Start at 17:00 Divalproex Sodium (Depakote Er) 1,000 mg HS PO Last administered on 10/11/17 21:20; Start 08/28/17 at 21:00 Hydroxyzine HCl (Atarax) 50 mg Q6HR PRN PO ANXIETY Last administered on 08:12; Start 08/28/17 at 17:15 Levetriacetam (Keppra) 1,500 mg Q12HR PO Last administered on 10/12/17at 08:37; Start 08/28/17 at 21:00 Quetiapine Fumarate (SEROquel) 25 mg HS PO Last administered on 08/28/17at 22:08 ; Start 08/28/17 at 21:00; Stop 08/29/17 at 17:53; Status DC Sertraline HCl (Zoloft) 200 mg DAILY PO Last administered on 10/12/17at 08:47; Start 08/29/17 at 09:00 Trazodone HCl (Desyrel) 200 mg HS PO Last administered on 10/11/17at 21:22; Start 08/28/17 at 21:00 Nitroglycerin (Nitroglycerin 2% Oint) 1 inch ONCE ONCE TOPICAL ; Start at 20:00; Stop 08/28/17 at 20:01; Status Cancel Potassium Chloride (KCl) 30 meq ONCE ONCE PO Last administered on 08/29/17at 13 :02; Start 08/29/17 at 11:30; Stop 08/29/17 at 11:31; Status DC Potassium Chloride 100 ml @ 50 mls/hr Q2H IV Last administered on 08/30/17at 02 :23; Start 08/29/17 at 12:00; Stop 08/29/17 at 15:59; Status DC Quetiapine Fumarate (SEROquel) 75 mg HS PO Last administered on 10/11/17at 21:20 ; Start 08/29/17 at 21:00 Clonidine (Catapres) 0.1 mg Q6H PRN PO SBP> OR = 170, DBP> OR = 100 Last administered on 09/09/17at 16:13; Start 08/29/17 at 18:30 Potassium Chloride (KCl) 30 meq ONCE ONCE PO Last administered on 08/30/17at 10 :31; Start 08/30/17 at 09:45; Stop 08/30/17 at 09:55; Status DC Potassium Chloride 100 ml @ 100 mls/hr Q1H IV Last administered on 08/30/17at 12:45; Start 08/30/17 at 09:45; Stop 08/30/17 at 13:44; Status DC Prednisone (Deltasone) 20 mg BID PO Last administered on 09/09/17at 22:02; Start 08/30/17 at 11:15; Stop 09/09/17 at 21:00; Status DC Albuterol Sulfate (Albuterol Neb) 1.25 mg Q6HR NEB NEB Last administered on at 21:46; Start 08/30/17 at 11:15; Stop 09/03/17 at 11:14; Status DC Prednisone (Deltasone) 30 mg DAILY PO Last administered on 09/21/17at 10:00; Start 09/10/17 at 09:00; Stop 09/21/17 at 11:50; Status DC Acetaminophen (Tylenol) 650 mg Q4H PRN PO FEVER Last administered on 09/23/17 10:04; Start 09/23/17 at 09:45 Levofloxacin/ Dextrose 100 ml @ 100 mls/hr Q24H IV Last administered on at 14:26; Start 09/23/17 at 15:00; Stop 09/25/17 at 18:19; Status DC Phenazopyridine HCl (Pyridium) 200 mg Q8HR PO Last administered on 09/25/17at 05 :54; Start 09/23/17 at 14:15; Stop 09/25/17 at 11:01; Status DC Potassium Chloride/Dextrose/ Sod Cl 1,000 ml @ 75 mls/hr [id number] IV Last administered on 09/25/17at 05:58; Start 09/23/17 at 14:15; Stop 09/25/17 at 10:57 ; Status DC Tamsulosin HCl (Flomax) 0.4 mg DAILY PO Last administered on 10/12/17at 08:37; Start 09/24/17 at 10:15; Status Future Hold Enoxaparin Sodium (Lovenox Inj) 30 mg Q24H SQ Last administered on 10/11/17at 12 :22; Start 09/25/17 at 12:00 Levofloxacin (Levaquin) 500 mg DAILY PO Last administered on 10/12/17at 08:37; Start 09/26/17 at 09:00 Tramadol HCl (Ultram) 50 mg Q8H PRN PO pain >5 Last administered on 10/11/17at 18:05; Start 09/27/17 at 21:45 Acetaminophen/ Hydrocodone Bitart ([place] 5-325 Mg) 1 tab Q6H PRN PO pain 1-5 Last administered on 10/11/17at 21:22; Start 10/02/17 at 08:30 Multivitamins (Theragran) 1 tab DAILY PO Last administered on 10/12/17at 08:37; Start 10/08/17 at 09:00 Sodium Chloride 500 ml @ 500 mls/hr BOLUS ONCE IV Last administered on 04:19; Start 10/12/17 at 04:15; Stop 10/12/17 at 05:14; Status DC Sodium Chloride 1,000 ml @ 999 mls/hr BOLUS ONCE IV Last administered on 10/12at 09:45; Start 10/12/17 at 09:45; Stop 10/12/17 at 10:45; Status DC Sodium Chloride 1,000 ml @ 125 mls/hr Q8H IV ; Start 10/12/17 at 09:45 A/P Problem List: (1) Encephalopathy ICD Code: G93.40 - Encephalopathy Status: Acute (2) Alcohol-induced mood disorder ICD Code: 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 Lactic acid 1.2. No fevers or tachycardia. Stat CBC to see and BMP placed. Patient responded very well to the normal saline fluid bolus. He has not had good oral intake at all. Will give him another bolus and start IV maintenance fluids. We will do a calorie count. May need to consider PEG placement. UTI growing E. Coli Elevated PSA - Continue Levaquin (started on 09/26) -Urology consulted for elevated PSA, recommendations appreciated -Complete course of antibiotics, continue Flomax, repeat UA and PSA on an outpatient basis. Aggressive behavior, encephalopathy: improving the Avelar act was lifted by psychiatry Continue Seroquel, sertraline. Currently on lactulose, Ammonia level on 09/22 was 39. More awake and alert. Right wrist pain and swelling, improving. X ray reviewed no fracture. US negative. Pain control with norco as need pr pain scale. orthopedic doctor for consulted recommended MRI. MRI 10/05/17 of right wrist reviewed negative. continue with pain controlled. Thrombocytopenia: -Chronic, at baseline. PLTs stable, H&H stable with no reported bleeding. Seizure disorder: -Continue Depakote, Keppra. Seizure precautions. PTSD, personality disorder: -Appreciate psychiatry recommendations. -Continue Seroquel. Trazodone daily at bedtime. COPD: -s/p Prednisone taper, currently stable on room air. Generalized weakness: - Patient has chronic debility likely secondary to chronic alcohol abuse. - Continue PT Decreased Appetite. Add multiVitamins DVT prophylaxis: Heparin. discussed case with patient's nurse. Sadie Hernandez MD Oct 12, 2017 11:23
[2017-10-12 11:36] LABS: HEMOGLOBIN 13.4 GM/DL (13.0-17.0); MEAN CORPUSCULAR HEMOGLOBIN 30.2 PG (27.0-34.0); MEAN CORPUSCULAR HGB CONC 34.3 % (32.0-36.0); MEAN PLATELET VOLUME 8.4 FL (7.0-11.0); PLATELET COUNT 102 TH/MM3 (150-450); RED BLOOD COUNT 4.43 MIL/MM3 (4.50-5.90); RED CELL DISTRIBUTION WIDTH 14.3 % (11.6-17.2); WHITE BLOOD COUNT 3.6 TH/MM3 (4.0-11.0)
[2017-10-12] MEDS: ENOXAPARIN SODIUM 30 MG/0.3 ML SYRINGE SQ SCH (18:14)
[2017-10-12] MEDS: MAGNESIUM HYDROXIDE SUSP 30 ML CUP PO PRN (20:39)
[2017-10-12] MEDS: traZODone HCL 100 MG TAB PO SCH (20:40)
[2017-10-12] MEDS: QUEtiapine FUMARATE 25 MG TAB PO SCH (20:41)
[2017-10-12] MEDS: DIVALPROEX SODIUM E.R. 500 MG TAB PO SCH (20:41)
[2017-10-12] MEDS: traMADol HCL 50 MG TAB PO PRN (20:42)
[2017-10-13] VITALS: BP 109/64; PULSE 57; RESP 18; TEMP 98; O2SAT 97
[2017-10-13] MEDS: SODIUM CHLOR 0.9% 1000 ML INJ 1,000 ML IV SCH ×3 (01:11→17:45)
[2017-10-13 04:00] VITALS: BP 102/65; PULSE 63; RESP 18; TEMP 98.1; O2SAT 96
[2017-10-13 08:32] VITALS: BP 118/72; PULSE 80; RESP 16; TEMP 98.2; O2SAT 95
[2017-10-13] MEDS: SODIUM CHLORIDE 0.9% FLUSH 10 ML FLUSH IV FLUSH SCH ×2 (09:00→20:32)
[2017-10-13] MEDS: LACTULOSE SYRUP 20 GM/30 ML CUP PO SCH ×2 (09:00→21:00)
[2017-10-13] MEDS: SERTRALINE HCL 100 MG TAB PO SCH (09:22)
[2017-10-13] MEDS: LEVOFLOXACIN 500 MG TAB PO SCH (09:23)
[2017-10-13] MEDS: DOCUSATE SODIUM 50 MG/SENNA 8.6 MG TAB PO SCH ×2 (09:23→20:33)
[2017-10-13] MEDS: MULTIVITAMIN TAB PO SCH (09:23)
[2017-10-13] MEDS: levETIRAcetam 500 MG TAB PO SCH ×2 (09:23→20:40)
[2017-10-13] MEDS: traMADol HCL 50 MG TAB PO PRN ×2 (11:16→18:27)
[2017-10-13 12:16] VITALS: BP 131/75; PULSE 63; RESP 18; TEMP 98.2; O2SAT 98
--- NOTE | 2017-10-13 12:39 | HHI.PR ---
Subjective Remarks Follow-up for hypotension Patient continues to have decreased oral intake. He stated that he does not have an appetite. Otherwise blood pressure has been stable since yesterday. He remains afebrile. Objective Vitals Vital Signs Date Time Temp Pulse Resp B/P (MAP) Pulse Ox O2 Delivery O2 Flow Rate FiO2 10/13/17 12:16 98.2 63 18 131/75 (93) 98 10/13/17 08:32 98.2 80 16 118/72 (87) 95 10/13/17 04:00 98.1 63 18 102/65 (77) 96 10/13/17 00:00 98.0 57 18 109/64 (79) 97 10/12/17 21:47 18 10/12/17 20:00 98.4 78 18 103/72 (82) 98 10/12/17 16:37 98.2 67 17 123/63 (83) 93 10/12/17 14:54 98.2 69 18 116/58 (77) I/O 10/12/17 10/12/17 10/12/17 10/13/17 10/13/17 10/13/17 07:00 15:00 23:00 07:00 15:00 23:00 Intake Total 500 ml 1000 ml 1000 ml Output Total 300 ml Balance 500 ml 1000 ml 1000 ml -300 ml IV Total 500 ml 1000 ml 1000 ml Output Urine Total 300 ml # Voids 1 5 Result Diagram: 10/12/17 1115 Objective Remarks GENERAL: in NAD CARDIOVASCULAR: Regular rate and rhythm without murmurs, gallops, or rubs. RESPIRATORY: Breath sounds equal bilaterally. No accessory muscle use. GASTROINTESTINAL: Abdomen soft, non-tender, nondistended. MUSCULOSKELETAL: right wrist with mild erythema and swelling. unable to get full ROM due to pain. sensation intact. radial pulse intact. Procedures None Medications and IVs Current Medications Lorazepam (Ativan Inj) 1 mg ONCE ONCE IM Last administered on 08/28/17at 01:23 ; Start 08/28/17 at 01:00; Stop 08/28/17 at 01:01; Status DC Haloperidol Lactate (Haldol Inj) 2 mg ONCE ONCE IM Last administered on at 01:23; Start 08/28/17 at 01:00; Stop 08/28/17 at 01:01; Status DC Diphenhydramine HCl (Benadryl Inj) 25 mg ONCE ONCE IM Last administered on at 01:23; Start 08/28/17 at 01:00; Stop 08/28/17 at 01:01; Status DC Lorazepam (Ativan Inj) 2 mg ONCE ONCE IM Last administered on 08/28/17at 02:42 ; Start 08/28/17 at 02:30; Stop 08/28/17 at 02:31; Status DC Diphenhydramine HCl (Benadryl Inj) 25 mg ONCE ONCE IM Last administered on at 02:43; Start 08/28/17 at 02:30; Stop 08/28/17 at 02:31; Status DC Haloperidol Lactate (Haldol Inj) 2 mg ONCE ONCE IM Last administered on at 02:43; Start 08/28/17 at 02:30; Stop 08/28/17 at 02:31; Status DC Lorazepam (Ativan Inj) 2 mg ONCE ONCE IV PUSH ; Start 08/28/17 at 02:45; Stop 08/28/17 at 02:46; Status DC Lorazepam (Ativan Inj) 2 mg ONCE ONCE IM Last administered on 08/28/17at 05:48 ; Start 08/28/17 at 05:45; Stop 08/28/17 at 05:46; Status DC Sodium Chloride (NS Flush) 2 ml UNSCH PRN IV FLUSH FLUSH AFTER USING IV ACCESS ; Start 08/28/17 at 12:45; Stop 08/29/17 at 11:15; Status DC Haloperidol Lactate (Haldol Inj) 2 mg ONCE ONCE IM Last administered on at 13:50; Start 08/28/17 at 13:30; Stop 08/28/17 at 13:31; Status DC Potassium Bicarb/ Potassium Chloride (K-Lyte Cl Eff) 25 meq ONCE ONCE PO Last administered on 08/28/17at 15:41; Start 08/28/17 at 15:30; Stop 08/28/17 at 15:31; Status DC Potassium Bicarb/ Potassium Chloride (K-Lyte Cl Eff) 50 meq ONCE ONCE PO Last administered on 08/28/17at 18:09; Start 08/28/17 at 17:00; Stop 08/28/17 at 17:24; Status DC Lactulose (Lactulose Liq) 30 ml BID PO Last administered on 10/12/17at 20:40; Start 08/28/17 at 21:00 Sodium Chloride (NS Flush) 2 ml UNSCH PRN IV FLUSH FLUSH AFTER USING IV ACCESS ; Start 08/28/17 at 17:00 Sodium Chloride (NS Flush) 2 ml BID IV FLUSH Last administered on 10/13/17at 09: 00; Start 08/28/17 at 21:00 Ondansetron HCl (Zofran Inj) 4 mg Q6H PRN IVP NAUSEA OR VOMITING; Start at 17:00 Heparin Sodium (Porcine) (Heparin Inj) 5,000 units Q12H SQ Last administered on 09/23/17at 06:14; Start 08/28/17 at 18:00; Stop 09/25/17 at 10:57; Status DC Naloxone HCl (Narcan Inj) 0.4 mg UNSCH PRN IV PUSH SEE LABEL COMMENTS; Start at 17:00 Senna/Docusate Sodium (Leanne-Colace) 1 tab BID PO Last administered on at 09:23; Start 08/28/17 at 21:00 Magnesium Hydroxide (Milk Of Magnesia Liq) 30 ml Q12H PRN PO Mild constipation Last administered on 10/12/17at 20:39; Start 08/28/17 at 17:00 Sennosides (Senokot) 17.2 mg Q12H PRN PO Moderate constipation; Start 08/28/17 at 17:00 Bisacodyl (Dulcolax Supp) 10 mg DAILY PRN RECTAL SEVERE CONSITIPATION; Start at 17:00 Lactulose (Lactulose Liq) 30 ml DAILY PRN PO SEVERE CONSITIPATION; Start at 17:00 Divalproex Sodium (Depakote Er) 1,000 mg HS PO Last administered on 10/12/17at 20:41; Start 08/28/17 at 21:00 Hydroxyzine HCl (Atarax) 50 mg Q6HR PRN PO ANXIETY Last administered on at 08:12; Start 08/28/17 at 17:15 Levetriacetam (Keppra) 1,500 mg Q12HR PO Last administered on 10/13/17 09:23; Start 08/28/17 at 21:00 Quetiapine Fumarate (SEROquel) 25 mg HS PO Last administered on 08/28/17at 22:08 ; Start 08/28/17 at 21:00; Stop 08/29/17 at 17:53; Status DC Sertraline HCl (Zoloft) 200 mg DAILY PO Last administered on 10/13/17 09:22; Start 08/29/17 at 09:00 Trazodone HCl (Desyrel) 200 mg HS PO Last administered on 10/12/17at 20:40; Start 08/28/17 at 21:00 Nitroglycerin (Nitroglycerin 2% Oint) 1 inch ONCE ONCE TOPICAL ; Start at 20:00; Stop 08/28/17 at 20:01; Status Cancel Potassium Chloride (KCl) 30 meq ONCE ONCE PO Last administered on 08/29/17at 13 :02; Start 08/29/17 at 11:30; Stop 08/29/17 at 11:31; Status DC Potassium Chloride 100 ml @ 50 mls/hr Q2H IV Last administered on 08/30/17at 02 :23; Start 08/29/17 at 12:00; Stop 08/29/17 at 15:59; Status DC Quetiapine Fumarate (SEROquel) 75 mg HS PO Last administered on 10/12/17at 20:41 ; Start 08/29/17 at 21:00 Clonidine (Catapres) 0.1 mg Q6H PRN PO SBP> OR = 170, DBP> OR = 100 Last administered on 09/09/17at 16:13; Start 08/29/17 at 18:30 Potassium Chloride (KCl) 30 meq ONCE ONCE PO Last administered on 08/30/17at 10 :31; Start 08/30/17 at 09:45; Stop 08/30/17 at 09:55; Status DC Potassium Chloride 100 ml @ 100 mls/hr Q1H IV Last administered on 08/30/17at 12:45; Start 08/30/17 at 09:45; Stop 08/30/17 at 13:44; Status DC Prednisone (Deltasone) 20 mg BID PO Last administered on 09/09/17at 22:02; Start 08/30/17 at 11:15; Stop 09/09/17 at 21:00; Status DC Albuterol Sulfate (Albuterol Neb) 1.25 mg Q6HR NEB NEB Last administered on at 21:46; Start 08/30/17 at 11:15; Stop 09/03/17 at 11:14; Status DC Prednisone (Deltasone) 30 mg DAILY PO Last administered on 09/21/17at 10:00; Start 09/10/17 at 09:00; Stop 09/21/17 at 11:50; Status DC Acetaminophen (Tylenol) 650 mg Q4H PRN PO FEVER Last administered on 09/23/17at 10:04; Start 09/23/17 at 09:45 Levofloxacin/ Dextrose 100 ml @ 100 mls/hr Q24H IV Last administered on at 14:26; Start 09/23/17 at 15:00; Stop 09/25/17 at 18:19; Status DC Phenazopyridine HCl (Pyridium) 200 mg Q8HR PO Last administered on 09/25/17at 05 :54; Start 09/23/17 at 14:15; Stop 09/25/17 at 11:01; Status DC Potassium Chloride/Dextrose/ Sod Cl 1,000 ml @ 75 mls/hr [id number] IV Last administered on 09/25/17at 05:58; Start 09/23/17 at 14:15; Stop 09/25/17 at 10:57 ; Status DC Tamsulosin HCl (Flomax) 0.4 mg DAILY PO Last administered on 10/12/17at 08:37; Start 09/24/17 at 10:15; Status Future Hold Enoxaparin Sodium (Lovenox Inj) 30 mg Q24H SQ Last administered on 10/12/17at 18 :14; Start 09/25/17 at 12:00 Levofloxacin (Levaquin) 500 mg DAILY PO Last administered on 10/13/17at 09:23; Start 09/26/17 at 09:00 Tramadol HCl (Ultram) 50 mg Q8H PRN PO pain >5 Last administered on 10/13/17at 11:16; Start 09/27/17 at 21:45 Acetaminophen/ Hydrocodone Bitart ([place] 5-325 Mg) 1 tab Q6H PRN PO pain 1-5 Last administered on 10/11/17at 21:22; Start 10/02/17 at 08:30 Multivitamins (Theragran) 1 tab DAILY PO Last administered on 10/13/17at 09:23; Start 10/08/17 at 09:00 Sodium Chloride 500 ml @ 500 mls/hr BOLUS ONCE IV Last administered on at 04:19; Start 10/12/17 at 04:15; Stop 10/12/17 at 05:14; Status DC Sodium Chloride 1,000 ml @ 999 mls/hr BOLUS ONCE IV Last administered on 10/12at 09:45; Start 10/12/17 at 09:45; Stop 10/12/17 at 10:45; Status DC Sodium Chloride 1,000 ml @ 125 mls/hr Q8H IV Last administered on 10/13/17at 09 :45; Start 10/12/17 at 09:45 A/P Problem List: (1) Encephalopathy ICD Code: G93.40 - Encephalopathy Status: Acute (2) Alcohol-induced mood disorder ICD Code: 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 Lactic acid 1.2. No fevers or tachycardia. WBC is stable. Otherwise other labs were not taken and patient refused any more blood drawn. Continue with IV fluids. Anorexia -May consider Remeron since there is a component of depression. Will get an EKG before starting medication. We will also consult dietitian for calorie count. Patient stated that she would not want a PEG placement. So we will also consult palliative care since patient does not want any further intervention. UTI growing E. Coli Elevated PSA - Continue Levaquin (started on 09/26) -Urology consulted for elevated PSA, recommendations appreciated -Complete course of antibiotics, continue Flomax, repeat UA and PSA on an outpatient basis. Aggressive behavior, encephalopathy: improving the Avelar act was lifted by psychiatry Continue Seroquel, sertraline. Currently on lactulose, Ammonia level on 09/22 was 39. More awake and alert. Right wrist pain and swelling, improving. X ray reviewed no fracture. US negative. Pain control with norco as need pr pain scale. orthopedic doctor for consulted recommended MRI. MRI 10/05/17 of right wrist reviewed negative. continue with pain controlled. Thrombocytopenia: -Chronic, at baseline. PLTs stable, H&H stable with no reported bleeding. Seizure disorder: -Continue Depakote, Keppra. Seizure precautions. PTSD, personality disorder: -Appreciate psychiatry recommendations. -Continue Seroquel. Trazodone daily at bedtime. COPD: -s/p Prednisone taper, currently stable on room air. Generalized weakness: - Patient has chronic debility likely secondary to chronic alcohol abuse. - Continue PT DVT prophylaxis: Heparin. discussed case with patient's nurse. Sadie Hernandez MD Oct 13, 2017 12:39
--- NOTE | 2017-10-13 14:30 | PD.CONS ---
Consult Service Palliative Care Consult Requested By Dr. Hernandez [facility] Phys[facility] Reason for Consultation a. To assist with evaluation and management of symptoms including: Pain, decreased oral intake b. To assist medical decision maker(s) with: better understanding of current medical conditions; weighing benefits/burdens of medical treatment options; making medical treatment decisions. HPI History of Present Illness Mr. Valenzuela is a 62-year-old with a past medical history of bipolar disorder, seizure disorder, gout, chronic low back pain, COPD, hypertension, chronic alcoholic pancreatitis, hepatitis B and C, dyslipidemia, and alcoholism. Patient was brought to the ER from an [facility] by EMS on August 28, 2017 to be evaluated for altered mental status, behavioral disturbances and a witnessed fall. Patient was brought in under [employer]. It was reported that patient was aggressive and combative at his [facility] when he fell and hit his head. In the ER patient was aggressive and combative and was also attempting to urinate on staff. He received many doses of lorazepam, he will do Benadryl. Patient was going to be discharged from the ER back to his [facility] but it is reported that the [facility] would not accept patient take due to his aggressive behavior. ER Course: * Vital signs: Temperature 98.9, pulse 66, respirations 18, BP 151/97 and O2 saturation 94% on room. * Head CT revealed no acute intracranial hemorrhage. Stable diffuse bilateral cortical atrophy. * Cervical spine CT revealed no acute bony fracture and diffuse moderate degenerative changes involving the cervical spine. * Laboratory workup revealed WBC 4.3, hemoglobin 12.9, hematocrit 37.1, platelet count 86, potassium 2.4, BUN/creatinine 15/0.89, ammonia 61, Total protein 7.9. Albumin 3.3 * Patient was placed on a 1-1 observation with a seater in ER and soft restraints Psychiatry Dr. Sam 08/28/17 was consulted, contributed aggressive behavior and agitated most likely secondary to delirium from metabolic derangements. Psychiatry also lifted because it time of consultation. On 08/31/17 patient was medically discharged and was awaiting placement. Patient reported difficulty with urination and his girlfriend reported hematuria. Renal ultrasound on 09/24/17 revealed no stone or obstruction. Urology Dr. Christensen consulted 09/24/2017 for evaluation and management of elevated PSA, recommended treatment of UTI and started patient on Flomax. Patient developed pain and swelling with some warmth to his right had and wrist. Right upper extremity ultrasound on 10/02 was negative for deep venous thrombosis. Orthopedic Dr. Coulter consulted on 10/04/2017 to evaluate and manage right wrist pain and swelling,recommended discontinuing peripheral intravenous catheter and applying warm compresses to the area and to consider MRI imaging if the symptoms do not improve. Wrist MRI on 10/05 revealed effusion in the proximal carpal row and in the radiocarpal joint and no osteomyelitis.On 10/12/17 patient became hypotensive SBP 70s-80s, which is thought to be secondary to decreased oral intake. PEG placement was addressed and patient indicated that he would not want a PEG. It is also reported that patient is refusing to have blood drawn for lab work. Clinical course complicated with decreased oral intake, hypotension, urinary tract infection. Physical therapy has been following with patient and they recommend physical therapy at rehab. Case management is being assisting with placement of patient since he cannot go back at the [facility] he used to reside at. Palliative care consulted to assist with clarification of goals.Patient is known to Palliative care. Telephone call placed to Dianelys Chambers [phone] who is from [place] [facility] to confirm if she was the court appointed guardian for patient and she said she is only his payee- she only manages his finances otherwise patient makes his own medical decisions. Patient seen and examined in his room. Patient is very hard of hearing. Patient is awake, alert and oriented to self, place and situation. Obtained psychosocial history. Patient is not able to recall events that led to this hospitalization. Patient is also aware that at this time there has been an issue of placement and he expresses that he is worried about that. Patient appears to have insight of his condition and it appears that hard of hearing sometimes makes it difficult to converse with patient effectively. Addressed code status, discussed CPR limitations and benefits and patient said there is no question about that he would not want to be resuscitated or be intubated. Patient verbalized that when his time to comes, he hopes he would just sleep for good and he would not like anyone trying to bring him back and put him on a machine. Patient elected DNR. Patient does not have advance directives. 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 Provided a blank Designation of Healthcare Surrogate form for patient to read and complete if he wishes to. Explained to patient that if he does not designate anyone, by [place] statute since he is his 2 adult sons will act as his health care proxys at any time if he becomes incapacitated. Explained to him that designation of health care surrogate does not have any ties with his finances except medical decision making only. Unsure if patient clearly heard the whole conversation. Hopefully by reading, he will be able to understand what it is. Patient also expressed that he has been refusing lab work because he is tired of being stuck and that he has not been eating well due to lack of appetite and sometimes nausea. Patient stated that since the physician explained to him he had become hypotensive most likely due to decreased oral intake, he will try to eat and drink more. Case discussed with bedside RN, caser shoe parts Brenda Rodríguez and Dr. Hernandez who agreed that patient has capacity to make his own decisions. . Function/Cognitive Trajectory Prior to this hospital admission, patient was a resident at [facility]. Patient states that he was independent of all his ADLs and that he used a rolling walker for ambulation and a WC sometimes. . Review of Systems Constitutional: COMPLAINS OF: Change in appetite, DENIES: Generalized weakness Eyes: DENIES: Eye inflammation Ears, nose, mouth, throat: COMPLAINS OF: Hearing loss Respiratory: COMPLAINS OF: Cough, DENIES: Shortness of breath Cardiovascular: DENIES: Lower Extremity Edema Gastrointestinal: COMPLAINS OF: Nausea, DENIES: Constipation, Diarrhea, Vomiting Hematologic/Lymphatics: COMPLAINS OF: Bruising Neurologic: COMPLAINS OF: Poor Balance Psychiatric: COMPLAINS OF: Confusion, Depression, Agitation Past Family Social History Coded Allergies: No Known Allergies (Verified , 11/13/16) Per patient. Past Medical History (Obtained from medical records) Seizure disorder Bipolar disorder Gout Chronic low back pain COPD Hypertension Chronic pancreatitis Hepatitis B and C History of alcohol abuse Dyslipidemia . Past Surgical History Tonsillectomy and adenoidectomy Appendectomy ORIF left femur fracture . Reported Medications Trazodone (Trazodone HCl) 100 Mg Tablet 100 Mg PO 2 PO HS Fludrocortisone (Fludrocortisone Acetate) 0.1 Mg Tab 0.1 Mg PO DAILY Lactobacillus Acidophilus 1 Tab Tab 1 Tab PO TIDAC Keppra (Levetiracetam) 500 Mg Tab 1,500 Mg PO Q12HR Depakote ER (Divalproex Sodium) 500 Mg Bassam 1,000 Mg PO HS Sertraline (Sertraline HCl) 100 Mg Tab 200 Mg PO DAILY Quetiapine (Quetiapine Fumarate) 25 Mg Tab 25 Mg PO HS Hydroxyzine HCl 50 Mg Tab 50 Mg PO Q6HR PRN Calcium + D3 (Calcium Carbonate-Cholecalciferol) 600-200 Mg-Unit Tab 1 Tab PO BID . Current Medications Medications (Trade) Dose Ordered Sig/Teja Route Start Time Stop Time Status Last Admin (Lactulose Liq) 30 ml BID PO 08/28/17 21:00 10/12/17 20:40 (NS Flush) 2 ml UNSCH PRN IV FLUSH 08/28/17 17:00 (NS Flush) 2 ml BID IV FLUSH 08/28/17 21:00 10/13/17 09:00 (Zofran Inj) 4 mg Q6H PRN IVP 08/28/17 17:00 (Narcan Inj) 0.4 mg UNSCH PRN IV PUSH 08/28/17 17:00 (Leanne-Colace) 1 tab BID PO 08/28/17 21:00 10/13/17 09:23 (Milk Of Magnesia Liq) 30 ml Q12H PRN PO 08/28/17 17:00 10/12/17 20:39 (Senokot) 17.2 mg Q12H PRN PO 08/28/17 17:00 (Dulcolax Supp) 10 mg DAILY PRN RECTAL 08/28/17 17:00 (Lactulose Liq) 30 ml DAILY PRN PO 08/28/17 17:00 (Depakote Er) 1,000 mg HS PO 08/28/17 21:00 10/12/17 20:41 (Atarax) 50 mg Q6HR PRN PO 08/28/17 17:15 10/03/17 08:12 (Keppra) 1,500 mg Q12HR PO 08/28/17 21:00 10/13/17 09:23 (Zoloft) 200 mg DAILY PO 08/29/17 09:00 10/13/17 09:22 (Desyrel) 200 mg HS PO 08/28/17 21:00 10/12/17 20:40 (SEROquel) 75 mg HS PO 08/29/17 21:00 10/12/17 20:41 (Catapres) 0.1 mg Q6H PRN PO 08/29/17 18:30 09/09/17 16:13 (Tylenol) 650 mg Q4H PRN PO 09/23/17 09:45 09/23/17 10:04 (Flomax) 0.4 mg DAILY PO 09/24/17 10:15 Future Hold 10/12/17 08:37 (Lovenox Inj) 30 mg Q24H SQ 09/25/17 12:00 10/12/17 18:14 (Levaquin) 500 mg DAILY PO 09/26/17 09:00 10/13/17 09:23 (Ultram) 50 mg Q8H PRN PO 09/27/17 21:45 10/13/17 11:16 (Newsoms 5-325 Mg) 1 tab Q6H PRN PO 10/02/17 08:30 10/11/17 21:22 (Theragran) 1 tab DAILY PO 10/08/17 09:00 10/13/17 09:23 Sodium Chloride 1,000 ml @ 125 mls/hr Q8H IV 10/12/17 09:45 10/13/17 09:45 Family History Mother from natural causes Sister - unknown . Substance Use Tobacco: Smokes Alcohol: EtOH abuse Prescription med abuse: None reported Illicits: Remote history of cocaine use . Psychosocial History Patient was born and raised in [place]. Patient served in the [employer] during the [place] war for 6 years. He moved to [place] in the 1970s. Patient was and once. He has 2 sons whom he states he has not spoken to in about 10 years. Patient stated that the last he heard from them was about 10 years ago and at that time they were in [place], [place]. . Living Will: Never completed Health Care Surrogate: Never completed Durable Power of Garbage Truck Dispatcher: Never completed Health Care Surrogate(s): Health Care Proxys Zach Heath Marker- Charo Jfcede-[phone] . Ethical and Legal Issues None identified at this time. . Physical Exam Vital Signs Date Time Temp Pulse Resp B/P (MAP) Pulse Ox O2 Delivery O2 Flow Rate FiO2 10/13/17 12:16 98.2 63 18 131/75 (93) 98 10/13/17 08:32 98.2 80 16 118/72 (87) 95 10/13/17 04:00 98.1 63 18 102/65 (77) 96 10/13/17 00:00 98.0 57 18 109/64 (79) 97 10/12/17 21:47 18 10/12/17 20:00 98.4 78 18 103/72 (82) 98 10/12/17 16:37 98.2 67 17 123/63 (83) 93 10/12/17 14:54 98.2 69 18 116/58 (77) 10/13/17 10/14/17 19:00 07:00 Output Total 300 ml Balance -300 ml Output Urine Total 300 ml # Voids 5 Exam CONSTITUTIONAL/GENERAL: This is an adequately nourished patient, in no apparent distress. Denies pain TUBES/LINES/DRAINS:PIV SKIN: No jaundice, rashes, or lesions. Ecchymoses on upper extremities. No wounds seen anteriorly. Skin temperature appropriate. Not diaphoretic. HEAD: Atraumatic. Normocephalic. EYES: Pupils equal and round and reactive. Extraocular motions intact. No scleral icterus. No injection or drainage. Fundi not examined. ENT: Hard of Hearing.Nose without bleeding or purulent drainage. NECK: Trachea midline. Supple, nontender. CARDIOVASCULAR: Regular rate and rhythm without murmurs, gallops, or rubs. No JVD. Peripheral pulses symmetric. RESPIRATORY/CHEST: Symmetric, unlabored respirations. Clear to auscultation. Breath sounds equal bilaterally. No wheezes, rales, or rhonchi. GASTROINTESTINAL: Abdomen soft, non-tender, nondistended. No guarding. Bowel sounds present. GENITOURINARY: Without palpable bladder distension. MUSCULOSKELETAL: Extremities without clubbing, cyanosis, or edema. No joint tenderness or effusion noted. No calf tenderness. No mottling or clubbing. NEUROLOGICAL: Awake and alert. Motor and sensory grossly within normal limits. Follows commands. Moves all extremities. PSYCHIATRIC: No obvious anxiety/depression. no apparent hallucinations or other psychotic thought process. Diagnostic Tests Laboratory Laboratory Tests Test 10/12/17 06:45 10/12/17 11:15 10/13/17 06:00 Lactic Acid Level 1.2 mmol/L (0.4-2.0) White Blood Count 3.6 TH/MM3 (4.0-11.0) Red Blood Count 4.43 MIL/MM3 (4.50-5.90) Hemoglobin 13.4 GM/DL (13.0-17.0) Hematocrit 39.0 % (39.0-51.0) Mean Corpuscular Volume 88.0 FL (80.0-100.0) Mean Corpuscular Hemoglobin 30.2 PG (27.0-34.0) Mean Corpuscular Hemoglobin Concent 34.3 % (32.0-36.0) Red Cell Distribution Width 14.3 % (11.6-17.2) Platelet Count 102 TH/MM3 (150-450) Mean Platelet Volume 8.4 FL (7.0-11.0) Hematology Comments Result Diagram: 10/12/17 1115 Imaging Last Impressions Wrist MRI 10/05/17 0000 Signed Impressions: Service Date/Time: Thursday, October 05, 2017 12:00 - CONCLUSION: 1. No evidence of osteomyelitis. 2. Effusion in the proximal carpal row and in the radiocarpal joint. Fermin Duggan MD Upper Extremity Ultrasound 10/03/17 0000 Signed Impressions: Service Date/Time: Monday, October 02, 2017 14:57 - CONCLUSION: 1. Negative for deep venous thrombosis right upper extremity. Fermin Duggan MD Wrist X-Ray 10/02/17 0000 Signed Impressions: Service Date/Time: Monday, October 02, 2017 10:18 - CONCLUSION: Unremarkable exam. No significant change compared to the prior study. Wade Butler MD Renal Ultrasound 09/24/17 0000 Signed Impressions: Service Date/Time: Sunday, September 24, 2017 09:53 - CONCLUSION: Negative for stone or obstruction. Silvestre Iniguez MD FACR Head CT 08/28/17 0000 Signed Impressions: Service Date/Time: Monday, August 28, 2017 06:05 - CONCLUSION: 1. No acute intracranial hemorrhage. 2. Stable diffuse bilateral cortical atrophy. 3. No significant change compared to the prior exam. Wade Butler MD Cervical Spine CT 08/28/17 0000 Signed Impressions: Service Date/Time: Monday, August 28, 2017 06:08 - CONCLUSION: 1. No acute bony fracture. 2. Stable diffuse primary degenerative changes involving the cervical spine. 3. No new or significant changes. Wade Butler MD Patient/Family Conference Family Conference Location: Bedside, Telephone Issues Discussed: * Palliative care role, purpose, approach * Additional medical, psychosocial, and spiritual history * Patients general health, functional status, and cognitive changes in the months leading up to the current hospitalization * Patient/family understanding of the current medical problems * Patient/family understanding of prognosis * Patients goals of care as best understood from advance directives and/or conversations and/or values * Current medical treatment options and benefits/burdens of those options * Likely scenarios comparing ongoing aggressive care with a transition to comfort measures only * Questions answered to the best of my ability * Introduced hospice philosophy and benefits * Palliative care contact information provided Assessment and Plan Disease Oriented Problem List: (1) Alcohol-induced mood disorder (2) PTSD (post-traumatic stress disorder) (3) Bipolar disorder (4) COPD (chronic obstructive pulmonary disease) Symptom Scale: (1) Decreased oral intake (2) Pain Pertinent Non-Medical Issues Psychosocial:Patient was born and raised in [place]. Patient served in the [employer] during the [place] war for 6 years. He moved to [place] in the 1970s. Patient was and once. He has 2 sons whom he states he has not spoken to in about 10 years. Patient stated that the last he heard from them was about 10 years ago and at that time they were in [place], [place]. 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 Important Contacts Son-Pardeep Jyukmw-[phone] Son-Deon Heath Marker- Father- Shakir Marker [phone] Significant other-Anna Crycvdvh-[phone] [place] [facility]- Payee- Dianelys Chambers - [phone] . Prognosis Mr. Valenzuela is a 62-year-old with a past medical history of bipolar disorder, seizure disorder, gout, chronic low back pain, COPD, hypertension, chronic alcoholic pancreatitis, hepatitis B and C, dyslipidemia, and alcoholism. Patient was brought to the ER from an [facility] by EMS on August 28, 2017 to be evaluated for altered mental status, behavioral disturbances and a witnessed fall. Clinical course complicated with decreased oral intake, hypotension, urinary tract infection. . Plan PLAN: Legal decision maker: Patient is capable of participating in making his own medical decisions. In the event that he is incapacitated, his 2 adult sons [place] Deon Peters and Pardeep Peters Jr will serve as his health care proxys. Goals: Aggressive CODE STATUS: No Code SYMPTOMS: * Pain: Multifactorial. Pain can be from bedbound, and other source for pain could be IV. Patient also had complaints of pain to his right wrist. Wrist MRI on 10/05 revealed effusion in the proximal carpal row and in the radiocarpal joint and no osteomyelitis. Pain currently managed with Hydrocodone/ acetaminophen 5/325 and Tramadol. No recommendations at this time. * Decreased oral intake: Patient has been refusing his meals. Patient stated that the day he did not eat he was nauseated but now he has started to eat and drink. Patient appears to consume 50-75% of his breakfast and lunch. No records of dinner %ntage since 09/27. Recommending calorie count, agree with aviation maintenance technician consult and starting patient on an appetite stimulant if his oral intake does not improve. Palliative care will continue to follow the patient during hospital course as condition evolves, to assist patient/decision-maker with understanding of their medical conditions, weighing benefits/burdens of treatment options, for clarification of goals of treatment. Additionally will assist with any symptoms of palliative concern Thank you for the opportunity to participate in the care of Mr. Peters. Attestation To help prompt me to consider important information that might be impacting today's encounter and assessment, information from prior notes written by myself or my colleagues may have been "brought forward" into today's note. My signature on this note, however, is an attestation that I personally performed the exam, history, and/or decision-making noted today, and, unless otherwise indicated, the interactions with patient, family, and staff as well as the review of records all occurred today. I also attest that the listed assessment and stated plan reflect my best clinical judgment today based on the combination of historical information, prior notes, and today's exam/ interactions. When time spent is documented, it refers only to time spent today by the signer, or if indicated, combined time spent today by collaborating physician/nurse practitioner. Robin Dominguez Oct 13, 2017 14:28
[2017-10-13] MEDS: ACETAMINOPHEN/HYDROcodone 325 MG/5 MG TAB PO PRN (15:32)
[2017-10-13] MEDS: ENOXAPARIN SODIUM 30 MG/0.3 ML SYRINGE SQ SCH (15:38)
[2017-10-13 16:35] VITALS: BP 109/69; PULSE 69; RESP 17; TEMP 98.8; O2SAT 97
[2017-10-13 20:00] VITALS: BP 108/67; PULSE 66; RESP 18; TEMP 98.5; O2SAT 96
[2017-10-13] MEDS: DIVALPROEX SODIUM E.R. 500 MG TAB PO SCH (20:32)
[2017-10-13] MEDS: QUEtiapine FUMARATE 25 MG TAB PO SCH (20:32)
[2017-10-13] MEDS: traZODone HCL 100 MG TAB PO SCH (20:32)
[2017-10-13] MEDS: ACETAMINOPHEN 325 MG TAB PO PRN (20:33)
[2017-10-14] VITALS: BP_SYST 108; BP_SYST 98; BP_DIAS 63; BP_DIAS 67; PULSE 66; PULSE 73; RESP 18; TEMP 98.2; TEMP 98.5; O2SAT 95; O2SAT 96
[2017-10-14] MEDS: SODIUM CHLOR 0.9% 1000 ML INJ 1,000 ML IV SCH ×2 (01:45→10:51)
[2017-10-14 04:00] VITALS: BP 106/65; PULSE 69; RESP 18; TEMP 98.2; O2SAT 96
[2017-10-14 08:00] VITALS: BP 117/78; PULSE 69; RESP 16; TEMP 97.9; O2SAT 95
[2017-10-14] MEDS: SODIUM CHLORIDE 0.9% FLUSH 10 ML FLUSH IV FLUSH SCH ×2 (09:00→21:00)
[2017-10-14] MEDS: SERTRALINE HCL 100 MG TAB PO SCH (09:07)
[2017-10-14] MEDS: levETIRAcetam 500 MG TAB PO SCH ×2 (09:07→21:19)
[2017-10-14] MEDS: LACTULOSE SYRUP 20 GM/30 ML CUP PO SCH ×2 (09:08→21:00)
[2017-10-14] MEDS: MULTIVITAMIN TAB PO SCH (09:08)
[2017-10-14] MEDS: DOCUSATE SODIUM 50 MG/SENNA 8.6 MG TAB PO SCH ×2 (09:08→21:00)
[2017-10-14] MEDS: LEVOFLOXACIN 500 MG TAB PO SCH (09:08)
--- NOTE | 2017-10-14 09:24 | HHI.PR ---
Subjective Remarks in no acute distress. BP trend noted. d/w the RN and no acute issues over night. Objective Vitals Vital Signs Date Time Temp Pulse Resp B/P (MAP) Pulse Ox O2 Delivery O2 Flow Rate FiO2 10/14/17 04:00 98.2 69 18 106/65 (79) 96 10/14/17 00:00 98.2 73 18 98/63 (75) 95 10/13/17 20:00 98.5 66 18 108/67 (81) 96 10/13/17 16:35 98.8 69 17 109/69 (82) 97 10/13/17 12:16 98.2 63 18 131/75 (93) 98 I/O 10/13/17 10/13/17 10/13/17 10/14/17 10/14/17 10/14/17 07:00 15:00 23:00 07:00 15:00 23:00 Intake Total 1000 ml 240 ml Output Total 300 ml Balance 1000 ml -300 ml 240 ml Intake Oral 240 ml IV Total 1000 ml Output Urine Total 300 ml # Voids 6 4 Result Diagram: 10/12/17 1115 Imaging Last Impressions Wrist MRI 10/05/17 0000 Signed Impressions: Service Date/Time: Thursday, October 05, 2017 12:00 - CONCLUSION: 1. No evidence of osteomyelitis. 2. Effusion in the proximal carpal row and in the radiocarpal joint. Fermin Duggan MD Upper Extremity Ultrasound 10/03/17 0000 Signed Impressions: Service Date/Time: Monday, October 02, 2017 14:57 - CONCLUSION: 1. Negative for deep venous thrombosis right upper extremity. Fermin Duggan MD Wrist X-Ray 10/02/17 0000 Signed Impressions: Service Date/Time: Monday, October 02, 2017 10:18 - CONCLUSION: Unremarkable exam. No significant change compared to the prior study. Wade Butler MD Renal Ultrasound 09/24/17 0000 Signed Impressions: Service Date/Time: Sunday, September 24, 2017 09:53 - CONCLUSION: Negative for stone or obstruction. Silvestre Iniguez MD FACR Head CT 08/28/17 0000 Signed Impressions: Service Date/Time: Monday, August 28, 2017 06:05 - CONCLUSION: 1. No acute intracranial hemorrhage. 2. Stable diffuse bilateral cortical atrophy. 3. No significant change compared to the prior exam. Wade Butler MD Cervical Spine CT 08/28/17 0000 Signed Impressions: Service Date/Time: Monday, August 28, 2017 06:08 - CONCLUSION: 1. No acute bony fracture. 2. Stable diffuse primary degenerative changes involving the cervical spine. 3. No new or significant changes. Wade Butler MD Objective Remarks GENERAL: This is a well-nourished, well-developed patient, in no apparent distress. CARDIOVASCULAR: Regular rate and regular rhythm without murmurs, gallops, or rubs. RESPIRATORY: Clear to auscultation. Breath sounds equal bilaterally. No wheezes , rales, or rhonchi. GASTROINTESTINAL: Abdomen soft, non-tender, nondistended. Normal, active bowel sounds MUSCULOSKELETAL: Extremities without clubbing, cyanosis, or edema. NEURO: awake and alert Procedures None Medications and IVs Inpatient Medications Acetaminophen (Tylenol) 650 mg Q4H PRN PO FEVER Last administered on 10/13/17at 20:33; Start 09/23/17 at 09:45 Acetaminophen/ Hydrocodone Bitart ([place] 5-325 Mg) 1 tab Q6H PRN PO pain 1-5 Last administered on 10/13/17 15:32; Start 10/02/17 at 08:30 Albuterol Sulfate (Albuterol Neb) 1.25 mg Q6HR NEB NEB Last administered on at 21:46; Start 08/30/17 at 11:15; Stop 09/03/17 at 11:14; Status DC Bisacodyl (Dulcolax Supp) 10 mg DAILY PRN RECTAL SEVERE CONSITIPATION; Start at 17:00 Clonidine (Catapres) 0.1 mg Q6H PRN PO SBP> OR = 170, DBP> OR = 100 Last administered on 09/09/17at 16:13; Start 08/29/17 at 18:30 Diphenhydramine HCl (Benadryl Inj) 25 mg ONCE ONCE IM Last administered on at 02:43; Start 08/28/17 at 02:30; Stop 08/28/17 at 02:31; Status DC Divalproex Sodium (Depakote Er) 1,000 mg HS PO Last administered on 10/13/17 20:32; Start 08/28/17 at 21:00 Enoxaparin Sodium (Lovenox Inj) 30 mg Q24H SQ Last administered on 10/13/17at 15 :38; Start 09/25/17 at 12:00 Haloperidol Lactate (Haldol Inj) 2 mg ONCE ONCE IM Last administered on at 13:50; Start 08/28/17 at 13:30; Stop 08/28/17 at 13:31; Status DC Heparin Sodium (Porcine) (Heparin Inj) 5,000 units Q12H SQ Last administered on 09/23/17 06:14; Start 08/28/17 at 18:00; Stop 09/25/17 at 10:57; Status DC Hydroxyzine HCl (Atarax) 50 mg Q6HR PRN PO ANXIETY Last administered on 08:12; Start 08/28/17 at 17:15 Lactulose (Lactulose Liq) 30 ml DAILY PRN PO SEVERE CONSITIPATION; Start at 17:00 Levetriacetam (Keppra) 1,500 mg Q12HR PO Last administered on 10/14/17 09:07; Start 08/28/17 at 21:00 Levofloxacin (Levaquin) 500 mg DAILY PO Last administered on 10/14/17 09:08; Start 09/26/17 at 09:00 Levofloxacin/ Dextrose 100 ml @ 100 mls/hr Q24H IV Last administered on 14:26; Start 09/23/17 at 15:00; Stop 09/25/17 at 18:19; Status DC Lorazepam (Ativan Inj) 2 mg ONCE ONCE IM Last administered on 08/28/17at 05:48 ; Start 08/28/17 at 05:45; Stop 08/28/17 at 05:46; Status DC Magnesium Hydroxide (Milk Of Magnesia Liq) 30 ml Q12H PRN PO Mild constipation Last administered on 10/12/17at 20:39; Start 08/28/17 at 17:00 Multivitamins (Theragran) 1 tab DAILY PO Last administered on 10/14/17 09:08; Start 10/08/17 at 09:00 Naloxone HCl (Narcan Inj) 0.4 mg UNSCH PRN IV PUSH SEE LABEL COMMENTS; Start at 17:00 Ondansetron HCl (Zofran Inj) 4 mg Q6H PRN IVP NAUSEA OR VOMITING; Start at 17:00 Phenazopyridine HCl (Pyridium) 200 mg Q8HR PO Last administered on 09/25/17at 05 :54; Start 09/23/17 at 14:15; Stop 09/25/17 at 11:01; Status DC Potassium Chloride/Dextrose/ Sod Cl 1,000 ml @ 75 mls/hr [id number] IV Last administered on 09/25/17at 05:58; Start 09/23/17 at 14:15; Stop 09/25/17 at 10:57 ; Status DC Potassium Bicarb/ Potassium Chloride (K-Lyte Cl Eff) 50 meq ONCE ONCE PO Last administered on 08/28/17at 18:09; Start 08/28/17 at 17:00; Stop 08/28/17 at 17:24; Status DC Potassium Chloride 100 ml @ 100 mls/hr Q1H IV Last administered on 08/30/17at 12:45; Start 08/30/17 at 09:45; Stop 08/30/17 at 13:44; Status DC Potassium Chloride (KCl) 30 meq ONCE ONCE PO Last administered on 08/30/17at 10 :31; Start 08/30/17 at 09:45; Stop 08/30/17 at 09:55; Status DC Prednisone (Deltasone) 30 mg DAILY PO Last administered on 09/21/17at 10:00; Start 09/10/17 at 09:00; Stop 09/21/17 at 11:50; Status DC Quetiapine Fumarate (SEROquel) 75 mg HS PO Last administered on 10/13/17at 20:32 ; Start 08/29/17 at 21:00 Senna/Docusate Sodium (Leanne-Colace) 1 tab BID PO Last administered on 10/14/17at 09:08; Start 08/28/17 at 21:00 Sennosides (Senokot) 17.2 mg Q12H PRN PO Moderate constipation; Start 08/28/17 at 17:00 Sertraline HCl (Zoloft) 200 mg DAILY PO Last administered on 10/14/17at 09:07; Start 08/29/17 at 09:00 Sodium Chloride 1,000 ml @ 125 mls/hr Q8H IV Last administered on 10/13/17at 17 :45; Start 10/12/17 at 09:45 Sodium Chloride (NS Flush) 2 ml BID IV FLUSH Last administered on 10/13/17at 20: 32; Start 08/28/17 at 21:00 Tamsulosin HCl (Flomax) 0.4 mg DAILY PO Last administered on 10/12/17at 08:37; Start 09/24/17 at 10:15; Status Future Hold Tramadol HCl (Ultram) 50 mg Q8H PRN PO pain >5 Last administered on 10/13/17at 18:27; Start 09/27/17 at 21:45 Trazodone HCl (Desyrel) 200 mg HS PO Last administered on 10/13/17at 20:32; Start 08/28/17 at 21:00 A/P Problem List: (1) Encephalopathy ICD Code: G93.40 - Encephalopathy Status: Acute (2) Alcohol-induced mood disorder ICD Code: F10.94 - Alcohol use, unspecified with alcohol-induced mood disorder Status: Acute (3) Debility ICD Code: R53.81 - Other malaise (4) COPD (chronic obstructive pulmonary disease) ICD Code: J44.9 - COPD (chronic obstructive pulmonary disease) Status: Chronic (5) PTSD (post-traumatic stress disorder) ICD Code: F43.10 - Post-traumatic stress disorder, unspecified Assessment and Plan Hypotension on 10/12 -Most likely secondary to oral intake. -BP improved. -continue IV fluid for another 24 hrs. Anorexia - consulted dietitian for calorie count. Patient stated that she would not want a PEG placement. UTI growing E. Coli Elevated PSA - stop Levaquin (started on 09/26) -Urology consulted for elevated PSA, recommendations appreciated -continue Flomax, repeat UA and PSA on an outpatient basis. Aggressive behavior, encephalopathy: improving the Avelar act was lifted by psychiatry Continue Seroquel, sertraline. Currently on lactulose, Ammonia level on 09/22 was 39. More awake and alert. Right wrist pain and swelling, improving. X ray reviewed no fracture. US negative. Pain control with norco as need pr pain scale. orthopedic doctor for consulted recommended MRI. MRI 10/05/17 of right wrist reviewed negative. continue with pain controlled. Thrombocytopenia: -Chronic, at baseline. PLTs stable, H&H stable with no reported bleeding. Seizure disorder: -Continue David Luther. Seizure precautions. PTSD, personality disorder: -Appreciate psychiatry recommendations. -Continue Seroquel. Trazodone daily at bedtime. COPD: -s/p Prednisone taper, currently stable on room air. Generalized weakness: - Patient has chronic debility likely secondary to chronic alcohol abuse. - Continue PT DVT prophylaxis: Heparin. Discharge Planning dc planning in progress. Rob Kwon MD Oct 14, 2017 09:24
--- NOTE | 2017-10-14 11:11 | HHI.HCPN ---
Reason for visit a. To assist with evaluation and management of symptoms including: Pain, decreased oral intake b. To assist medical decision maker(s) with: better understanding of current medical conditions; weighing benefits/burdens of medical treatment options; making medical treatment decisions. Subjective/Interval History Patient seen and examined in his room in the presence of bedside RN. Patient is currently sleeping but easily arousable. Patient is alert, oriented to self , place and situation. Vital signs stable, SBP in the low 100s. Patient evaluated by dietitian yesterday, calorie count started today. Patent is on a heart healthy diet and gets Boost TID with meals. Patient is on Multivitamins 1 tab daily. Patient denies nausea and states that he will eat his meals. Remains on maintenance IVF. Patient denies pain at this time. Patient is on Hydrocodone/ acetaminophen 5/325 and is sparingly needing pain medications. Readdressed code status in the presence of bedside RN and patient stated that he remembers this conversation from yesterday and he still does not want to be resuscitated and he does not want to be intubated. . Family/friend interactions No family at bedside at this time. . Advance Directives Living Will: Never completed Health Care Surrogate: Never completed Durable Power of Garment Supervisor: Never completed Advance Directive Specifics Health Care Surrogate(s): Health Care Proxys Zach Heath Marker- Charo Mnzevd-[phone] . Objective Vital Signs Date Time Temp Pulse Resp B/P (MAP) Pulse Ox O2 Delivery O2 Flow Rate FiO2 10/14/17 08:00 97.9 69 16 117/78 (91) 95 10/14/17 04:00 98.2 69 18 106/65 (79) 96 10/14/17 00:00 98.2 73 18 98/63 (75) 95 10/13/17 20:00 98.5 66 18 108/67 (81) 96 10/13/17 16:35 98.8 69 17 109/69 (82) 97 10/13/17 12:16 98.2 63 18 131/75 (93) 98 Intake & Output 10/14/17 10/14/17 07:00 19:00 Intake Total 950 ml Balance 950 ml IV Total 950 ml # Voids 4 Physical Exam CONSTITUTIONAL/GENERAL: This is an adequately nourished patient, in no apparent distress. Denies pain TUBES/LINES/DRAINS:PIV SKIN: No jaundice, rashes, or lesions. Ecchymoses on upper extremities. No wounds seen anteriorly. Skin temperature appropriate. Not diaphoretic. HEAD: Atraumatic. Normocephalic. EYES: Pupils equal and round and reactive. Extraocular motions intact. No scleral icterus. No injection or drainage. Fundi not examined. ENT: Hard of Hearing.Nose without bleeding or purulent drainage. NECK: Trachea midline. Supple, nontender. CARDIOVASCULAR: Regular rate and rhythm without murmurs, gallops, or rubs. No JVD. Peripheral pulses symmetric. RESPIRATORY/CHEST: Symmetric, unlabored respirations. Clear to auscultation. Breath sounds equal bilaterally. No wheezes, rales, or rhonchi. GASTROINTESTINAL: Abdomen soft, non-tender, nondistended. No guarding. Bowel sounds present. GENITOURINARY: Without palpable bladder distension. MUSCULOSKELETAL: Extremities without clubbing, cyanosis, or edema. No joint tenderness or effusion noted. No calf tenderness. No mottling or clubbing. NEUROLOGICAL: Sleeping but easily arousable. Motor and sensory grossly within normal limits. Follows commands. Moves all extremities. PSYCHIATRIC: No obvious anxiety/depression. no apparent hallucinations or other psychotic thought process. Diagnostic Tests Laboratory Laboratory Tests Test 10/12/17 06:45 10/12/17 11:15 Lactic Acid Level 1.2 mmol/L (0.4-2.0) White Blood Count 3.6 TH/MM3 (4.0-11.0) Red Blood Count 4.43 MIL/MM3 (4.50-5.90) Hemoglobin 13.4 GM/DL (13.0-17.0) Hematocrit 39.0 % (39.0-51.0) Mean Corpuscular Volume 88.0 FL (80.0-100.0) Mean Corpuscular Hemoglobin 30.2 PG (27.0-34.0) Mean Corpuscular Hemoglobin Concent 34.3 % (32.0-36.0) Red Cell Distribution Width 14.3 % (11.6-17.2) Platelet Count 102 TH/MM3 (150-450) Mean Platelet Volume 8.4 FL (7.0-11.0) Hematology Comments Result Diagram: 10/12/17 1115 Assessment and Plan Disease Oriented Problem List: (1) Alcohol-induced mood disorder (2) PTSD (post-traumatic stress disorder) (3) Bipolar disorder (4) COPD (chronic obstructive pulmonary disease) Symptom Scale: (1) Decreased oral intake 0-10 Scale: Unable to quantify (2) Pain 0-10 Scale: Unable to quantify Comment: Multifactorial. c/o pain to Right shoulder and wrist. Wrist MRI on revealed effusion in the proximal carpal row and in the radiocarpal joint and no osteomyelitis. . Pertinent Non-Medical Issues Psychosocial:Patient was born and raised in [place]. Patient served in the [employer] during the [place] war for 6 years. He moved to [place] in the 1970s. Patient was and once. He has 2 sons whom he states he has not spoken to in about 10 years. Patient stated that the last he heard from them was about 10 years ago and at that time they were in [place], [place]. Spiritual:Patient is Judaism-Prefers Gnosticist- Declined mathematician visit Legal:Does not have advance directives- Provide pt with HCS form Ethical issues impacting care:None identified at this time . Important Contacts Son-Pardeep Peters-[phone] Son-Deon Peters- Father- Shakir Peters Fp-[phone] Significant other-Anna McadamsJgftvftu-[phone] [place] [facility]- Payee- Dianelys Chambers - [phone] . Prognosis Mr. Valenzuela is a 62-year-old with a past medical history of bipolar disorder, seizure disorder, gout, chronic low back pain, COPD, hypertension, chronic alcoholic pancreatitis, hepatitis B and C, dyslipidemia, and alcoholism. Patient was brought to the ER from an [facility] by EMS on August 28, 2017 to be evaluated for altered mental status, behavioral disturbances and a witnessed fall. Clinical course complicated with decreased oral intake, hypotension, urinary tract infection. . Code Status: No Code Plan PLAN: Legal decision maker: Patient is capable of participating in making his own medical decisions. In the event that he is incapacitated, his 2 adult sons [place] [employer] Deon Peters and Pardeep Peters Jr will serve as his health care proxys. Goals: Aggressive CODE STATUS: No Code DNR SYMPTOMS: * Pain: Multifactorial. Pain can be from bedbound, and other source for pain could be IV. Patient also had complaints of pain to his right wrist. Wrist MRI on 10/05 revealed effusion in the proximal carpal row and in the radiocarpal joint and no osteomyelitis. Pain currently managed with Hydrocodone/ acetaminophen 5/325 and Tramadol. No recommendations at this time. * Decreased oral intake: Patient has been refusing his meals. Patient stated that the day he did not eat he was nauseated but now he has started to eat and drink. Patient appears to consume 50-75% of his breakfast and lunch. No records of dinner %ntage since 09/27. Recommending calorie count, agree with credit department manager consult and starting patient on an appetite stimulant if his oral intake does not improve. Palliative care will continue to follow the patient during hospital course as condition evolves, to assist patient/decision-maker with understanding of their medical conditions, weighing benefits/burdens of treatment options, for clarification of goals of treatment. Additionally will assist with any symptoms of palliative concern Robin Dominguez Oct 14, 2017 11:11
--- NOTE | 2017-10-14 11:17 | EKG ---
Date Performed: 10/13/2017 Time Performed: 13:07:16 PTAGE: 62 years EKG: Sinus rhythm NONSPECIFIC T-WAVE ABNORMALITY BORDERLINE ECG Since the prior tracing, there has been no significant change PREVIOUS TRACING : 08/28/2017 12.54 DOCTOR: Akila Hemphill Interpretating Date/Time 10/14/2017 11:13:53
[2017-10-14] MEDS: ENOXAPARIN SODIUM 30 MG/0.3 ML SYRINGE SQ SCH (11:56)
[2017-10-14 12:00] VITALS: BP 134/76; PULSE 63; RESP 17; TEMP 98.2; O2SAT 98
[2017-10-14 16:00] VITALS: BP 120/80; PULSE 72; RESP 17; TEMP 98; O2SAT 98
[2017-10-14] MEDS: ACETAMINOPHEN/HYDROcodone 325 MG/5 MG TAB PO PRN (17:11)
[2017-10-14 20:58] VITALS: BP 135/81; PULSE 62; RESP 18; TEMP 97.7; O2SAT 98
[2017-10-14] MEDS: traZODone HCL 100 MG TAB PO SCH (21:10)
[2017-10-14] MEDS: DIVALPROEX SODIUM E.R. 500 MG TAB PO SCH (21:11)
[2017-10-14] MEDS: traMADol HCL 50 MG TAB PO PRN (21:12)
[2017-10-14] MEDS: QUEtiapine FUMARATE 25 MG TAB PO SCH (21:12)
[2017-10-15] VITALS: BP 120/76; PULSE 80; RESP 20; TEMP 98; O2SAT 97
[2017-10-15] MEDS: SODIUM CHLOR 0.9% 1000 ML INJ 1,000 ML IV SCH (02:40)
[2017-10-15] MEDS: ACETAMINOPHEN/HYDROcodone 325 MG/5 MG TAB PO PRN (02:41)
[2017-10-15 08:00] VITALS: BP 119/79; PULSE 71; RESP 18; TEMP 98.6; O2SAT 95
[2017-10-15] MEDS: DOCUSATE SODIUM 50 MG/SENNA 8.6 MG TAB PO SCH ×2 (08:11→20:58)
[2017-10-15] MEDS: MULTIVITAMIN TAB PO SCH (08:11)
[2017-10-15] MEDS: SERTRALINE HCL 100 MG TAB PO SCH (08:11)
[2017-10-15] MEDS: levETIRAcetam 500 MG TAB PO SCH ×2 (08:11→20:56)
[2017-10-15] MEDS: SODIUM CHLORIDE 0.9% FLUSH 10 ML FLUSH IV FLUSH SCH ×2 (08:12→20:58)
[2017-10-15] MEDS: LACTULOSE SYRUP 20 GM/30 ML CUP PO SCH ×2 (08:12→20:58)
--- NOTE | 2017-10-15 10:56 | HHI.PR ---
Subjective Remarks in no acute distress. resting comfortably. clinically no change. Objective Vitals Vital Signs Date Time Temp Pulse Resp B/P (MAP) Pulse Ox O2 Delivery O2 Flow Rate FiO2 10/15/17 08:00 98.6 71 18 119/79 (92) 95 10/15/17 00:00 98.0 80 20 120/76 (91) 97 10/14/17 20:58 97.7 62 18 135/81 (99) 98 10/14/17 16:00 98.0 72 17 120/80 (93) 98 10/14/17 12:00 98.2 63 17 134/76 (95) 98 I/O 10/14/17 10/14/17 10/14/17 10/15/17 10/15/17 10/15/17 07:00 15:00 23:00 07:00 15:00 23:00 Intake Total 950 ml 700 ml 2850 ml Balance 950 ml 700 ml 2850 ml Intake Oral 700 ml 2850 ml IV Total 950 ml # Voids 4 0 3 # Bowel Movements 2 0 Result Diagram: 10/12/17 1115 Imaging Last Impressions Wrist MRI 10/05/17 0000 Signed Impressions: Service Date/Time: Thursday, October 05, 2017 12:00 - CONCLUSION: 1. No evidence of osteomyelitis. 2. Effusion in the proximal carpal row and in the radiocarpal joint. Fermin Duggan MD Upper Extremity Ultrasound 10/03/17 0000 Signed Impressions: Service Date/Time: Monday, October 02, 2017 14:57 - CONCLUSION: 1. Negative for deep venous thrombosis right upper extremity. Fermin Duggan MD Wrist X-Ray 10/02/17 0000 Signed Impressions: Service Date/Time: Monday, October 02, 2017 10:18 - CONCLUSION: Unremarkable exam. No significant change compared to the prior study. Wade Butler MD Renal Ultrasound 09/24/17 0000 Signed Impressions: Service Date/Time: Sunday, September 24, 2017 09:53 - CONCLUSION: Negative for stone or obstruction. Silvestre Iniguez MD FACR Head CT 08/28/17 0000 Signed Impressions: Service Date/Time: Monday, August 28, 2017 06:05 - CONCLUSION: 1. No acute intracranial hemorrhage. 2. Stable diffuse bilateral cortical atrophy. 3. No significant change compared to the prior exam. Wade Butler MD Cervical Spine CT 08/28/17 0000 Signed Impressions: Service Date/Time: Monday, August 28, 2017 06:08 - CONCLUSION: 1. No acute bony fracture. 2. Stable diffuse primary degenerative changes involving the cervical spine. 3. No new or significant changes. Wade Butler MD Objective Remarks GENERAL: This is a well-nourished, well-developed patient, in no apparent distress. CARDIOVASCULAR: Regular rate and regular rhythm without murmurs, gallops, or rubs. RESPIRATORY: Clear to auscultation. Breath sounds equal bilaterally. No wheezes , rales, or rhonchi. GASTROINTESTINAL: Abdomen soft, non-tender, nondistended. Normal, active bowel sounds MUSCULOSKELETAL: Extremities without clubbing, cyanosis, or edema. NEURO: awake and alert Procedures None Medications and IVs Inpatient Medications Acetaminophen (Tylenol) 650 mg Q4H PRN PO FEVER Last administered on 10/13/17at 20:33; Start 09/23/17 at 09:45 Acetaminophen/ Hydrocodone Bitart ([place] 5-325 Mg) 1 tab Q6H PRN PO pain 1-5 Last administered on 10/15/17 02:41; Start 10/02/17 at 08:30 Albuterol Sulfate (Albuterol Neb) 1.25 mg Q6HR NEB NEB Last administered on at 21:46; Start 08/30/17 at 11:15; Stop 09/03/17 at 11:14; Status DC Bisacodyl (Dulcolax Supp) 10 mg DAILY PRN RECTAL SEVERE CONSITIPATION; Start at 17:00 Clonidine (Catapres) 0.1 mg Q6H PRN PO SBP> OR = 170, DBP> OR = 100 Last administered on 09/09/17 16:13; Start 08/29/17 at 18:30 Diphenhydramine HCl (Benadryl Inj) 25 mg ONCE ONCE IM Last administered on 02:43; Start 08/28/17 at 02:30; Stop 08/28/17 at 02:31; Status DC Divalproex Sodium (Depakote Er) 1,000 mg HS PO Last administered on 10/14/17 21 :11; Start 08/28/17 at 21:00 Enoxaparin Sodium (Lovenox Inj) 30 mg Q24H SQ Last administered on 10/14/17 11: 56; Start 09/25/17 at 12:00 Haloperidol Lactate (Haldol Inj) 2 mg ONCE ONCE IM Last administered on at 13:50; Start 08/28/17 at 13:30; Stop 08/28/17 at 13:31; Status DC Heparin Sodium (Porcine) (Heparin Inj) 5,000 units Q12H SQ Last administered on 09/23/17 06:14; Start 08/28/17 at 18:00; Stop 09/25/17 at 10:57; Status DC Hydroxyzine HCl (Atarax) 50 mg Q6HR PRN PO ANXIETY Last administered on at 08:12; Start 08/28/17 at 17:15 Lactulose (Lactulose Liq) 30 ml DAILY PRN PO SEVERE CONSITIPATION; Start at 17:00 Levetriacetam (Keppra) 1,500 mg Q12HR PO Last administered on 10/15/17 08:11; Start 08/28/17 at 21:00 Levofloxacin (Levaquin) 500 mg DAILY PO Last administered on 10/14/17 09:08; Start 09/26/17 at 09:00; Stop 10/14/17 at 09:24; Status DC Levofloxacin/ Dextrose 100 ml @ 100 mls/hr Q24H IV Last administered on 14:26; Start 09/23/17 at 15:00; Stop 09/25/17 at 18:19; Status DC Lorazepam (Ativan Inj) 2 mg ONCE ONCE IM Last administered on 08/28/17at 05:48 ; Start 08/28/17 at 05:45; Stop 08/28/17 at 05:46; Status DC Magnesium Hydroxide (Milk Of Magnesia Liq) 30 ml Q12H PRN PO Mild constipation Last administered on 10/12/17at 20:39; Start 08/28/17 at 17:00 Multivitamins (Theragran) 1 tab DAILY PO Last administered on 10/15/17 08:11; Start 10/08/17 at 09:00 Naloxone HCl (Narcan Inj) 0.4 mg UNSCH PRN IV PUSH SEE LABEL COMMENTS; Start at 17:00 Ondansetron HCl (Zofran Inj) 4 mg Q6H PRN IVP NAUSEA OR VOMITING; Start at 17:00 Phenazopyridine HCl (Pyridium) 200 mg Q8HR PO Last administered on 09/25/17at 05 :54; Start 09/23/17 at 14:15; Stop 09/25/17 at 11:01; Status DC Potassium Chloride/Dextrose/ Sod Cl 1,000 ml @ 75 mls/hr [id number] IV Last administered on 09/25/17at 05:58; Start 09/23/17 at 14:15; Stop 09/25/17 at 10:57 ; Status DC Potassium Bicarb/ Potassium Chloride (K-Lyte Cl Eff) 50 meq ONCE ONCE PO Last administered on 08/28/17at 18:09; Start 08/28/17 at 17:00; Stop 08/28/17 at 17:24; Status DC Potassium Chloride 100 ml @ 100 mls/hr Q1H IV Last administered on 08/30/17at 12:45; Start 08/30/17 at 09:45; Stop 08/30/17 at 13:44; Status DC Potassium Chloride (KCl) 30 meq ONCE ONCE PO Last administered on 08/30/17at 10 :31; Start 08/30/17 at 09:45; Stop 08/30/17 at 09:55; Status DC Prednisone (Deltasone) 30 mg DAILY PO Last administered on 09/21/17at 10:00; Start 09/10/17 at 09:00; Stop 09/21/17 at 11:50; Status DC Quetiapine Fumarate (SEROquel) 75 mg HS PO Last administered on 10/14/17at 21:12 ; Start 08/29/17 at 21:00 Senna/Docusate Sodium (Leanne-Colace) 1 tab BID PO Last administered on 10/14/17at 09:08; Start 08/28/17 at 21:00 Sennosides (Senokot) 17.2 mg Q12H PRN PO Moderate constipation; Start 08/28/17 at 17:00 Sertraline HCl (Zoloft) 200 mg DAILY PO Last administered on 10/15/17 08:11; Start 08/29/17 at 09:00 Sodium Chloride 1,000 ml @ 75 mls/hr [id number] IV Last administered on 10/15/17at 02:40; Start 10/12/17 at 09:45 Sodium Chloride (NS Flush) 2 ml BID IV FLUSH Last administered on 10/13/17at 20: 32; Start 08/28/17 at 21:00 Tamsulosin HCl (Flomax) 0.4 mg DAILY PO Last administered on 10/12/17at 08:37; Start 09/24/17 at 10:15; Status Future Hold Tramadol HCl (Ultram) 50 mg Q8H PRN PO pain >5 Last administered on 10/14/17 21 :12; Start 09/27/17 at 21:45 Trazodone HCl (Desyrel) 200 mg HS PO Last administered on 10/14/17 21:10; Start 08/28/17 at 21:00 A/P Problem List: (1) Encephalopathy ICD Code: G93.40 - Encephalopathy Status: Acute (2) Alcohol-induced mood disorder ICD Code: F10.94 - Alcohol use, unspecified with alcohol-induced mood disorder Status: Acute (3) Debility ICD Code: R53.81 - Other malaise (4) COPD (chronic obstructive pulmonary disease) ICD Code: J44.9 - COPD (chronic obstructive pulmonary disease) Status: Chronic (5) PTSD (post-traumatic stress disorder) ICD Code: F43.10 - Post-traumatic stress disorder, unspecified Assessment and Plan Hypotension on 10/12 -Most likely secondary to oral intake. -BP improved. -stop IV fluid. Anorexia - consulted dietitian for calorie count. Patient stated that she would not want a PEG placement. UTI growing E. Coli Elevated PSA - treated with Levaquin. -Urology consulted for elevated PSA, recommendations appreciated -continue Flomax, repeat UA and PSA on an outpatient basis. Aggressive behavior, encephalopathy: improving the Avelar act was lifted by psychiatry Continue Seroquel, sertraline. Currently on lactulose, Ammonia level on 09/22 was 39. More awake and alert. Right wrist pain and swelling, improving. X ray reviewed no fracture. US negative. Pain control with norco as need pr pain scale. orthopedic doctor for consulted recommended MRI. MRI 10/05/17 of right wrist reviewed negative. continue with pain control. Thrombocytopenia: -Chronic, at baseline. PLTs stable, H&H stable with no reported bleeding. Seizure disorder: -Continue David Luther. Seizure precautions. PTSD, personality disorder: -Appreciate psychiatry recommendations. -Continue Seroquel. Trazodone daily at bedtime. COPD: -s/p Prednisone taper, currently stable on room air. Generalized weakness: - Patient has chronic debility likely secondary to chronic alcohol abuse. - Continue PT DVT prophylaxis: Lovenox. Discharge Planning dc planning in progress. Rob Kwon MD Oct 15, 2017 10:56
[2017-10-15] MEDS: ENOXAPARIN SODIUM 30 MG/0.3 ML SYRINGE SQ SCH (11:41)
[2017-10-15 12:00] VITALS: BP 120/82; PULSE 76; RESP 18; TEMP 98.8; O2SAT 98
--- NOTE | 2017-10-15 15:18 | HHI.HCPN ---
Reason for visit a. To assist with evaluation and management of symptoms including: Pain, decreased oral intake b. To assist medical decision maker(s) with: better understanding of current medical conditions; weighing benefits/burdens of medical treatment options; making medical treatment decisions. Subjective/Interval History Patient sleeping, easily arousable. Patient endorsing feeling tired today and not in a good mood. Patient seems to be concerned about his money that is managed by his Payee from [employer]. Patient states that he is worried that he has nowhere to go and "he is going to just lay here and rot". Explained to patient that case management is following his case,and searching for placement. [facility] is applying for benefits for patient. Patient seemed somewhat relieved. Denies pain at this time. Vital signs stable. Calorie count completed. Per [employer] patient is not meeting his caloric intake, recommended liberalizing diet from heart healthy diet restrictions.Patent gets Boost TID with meals. Patient is on Multivitamins 1 tab daily. Patient remains on maintenance IVF. Patient denies pain, currently managed with Tramadol and Hydrocodone/acetaminophen 5/325. Patient is sparingly needing prn medications. Brought in State of [place] DNR and patient stated that today he is not in a good mood to sign anything. Patient requested that he signs the form some other day. Patient stated that he wants his code status to remain a DNR. Case discussed with bedside RN. . Family/friend interactions No family at bedside. . Advance Directives Living Will: Never completed Health Care Surrogate: Never completed Durable Power of Wallcovering Texturer: Never completed Advance Directive Specifics Health Care Surrogate(s): Health Care Proxys Zach Peters- Charo Ugxowo-[phone] . Objective Vital Signs Date Time Temp Pulse Resp B/P (MAP) Pulse Ox O2 Delivery O2 Flow Rate FiO2 10/15/17 08:00 98.6 71 18 119/79 (92) 95 10/15/17 00:00 98.0 80 20 120/76 (91) 97 10/14/17 20:58 97.7 62 18 135/81 (99) 98 10/14/17 16:00 98.0 72 17 120/80 (93) 98 Intake & Output 10/15/17 10/15/17 07:00 19:00 Intake Total 3550 ml 283 ml Balance 3550 ml 283 ml Intake Oral 3550 ml IV Total 283 ml # Voids 3 # Bowel Movements 0 Physical Exam CONSTITUTIONAL/GENERAL: This is an adequately nourished patient, in no apparent distress. Denies pain TUBES/LINES/DRAINS:PIV SKIN: No jaundice, rashes, or lesions. Ecchymoses on upper extremities. No wounds seen anteriorly. Skin temperature appropriate. Not diaphoretic. HEAD: Atraumatic. Normocephalic. EYES: Pupils equal and round and reactive. Extraocular motions intact. No scleral icterus. No injection or drainage. Fundi not examined. ENT: Hard of Hearing.Nose without bleeding or purulent drainage. NECK: Trachea midline. Supple, nontender. CARDIOVASCULAR: Regular rate and rhythm without murmurs, gallops, or rubs. No JVD. Peripheral pulses symmetric. RESPIRATORY/CHEST: Symmetric, unlabored respirations. Clear to auscultation. Breath sounds equal bilaterally. No wheezes, rales, or rhonchi. GASTROINTESTINAL: Abdomen soft, non-tender, nondistended. No guarding. Bowel sounds present. GENITOURINARY: Without palpable bladder distension. MUSCULOSKELETAL: Extremities without clubbing, cyanosis, or edema. No joint tenderness or effusion noted. No calf tenderness. No mottling or clubbing. NEUROLOGICAL: Sleeping but easily arousable. Motor and sensory grossly within normal limits. Follows commands. Moves all extremities. PSYCHIATRIC: No obvious anxiety/depression. no apparent hallucinations or other psychotic thought process. . Diagnostic Tests Result Diagram: 10/12/17 1115 Assessment and Plan Disease Oriented Problem List: (1) Alcohol-induced mood disorder (2) PTSD (post-traumatic stress disorder) (3) Bipolar disorder (4) COPD (chronic obstructive pulmonary disease) Symptom Scale: (1) Decreased oral intake 0-10 Scale: Unable to quantify (2) Pain 0-10 Scale: Unable to quantify Comment: Multifactorial. c/o pain to Right shoulder and wrist. Wrist MRI on revealed effusion in the proximal carpal row and in the radiocarpal joint and no osteomyelitis. . Pertinent Non-Medical Issues Psychosocial:Patient was born and raised in [place]. Patient served in the [employer] during the [place] war for 6 years. He moved to [place] in the 1970s. Patient was and once. He has 2 sons whom he states he has not spoken to in about 10 years. Patient stated that the last he heard from them was about 10 years ago and at that time they were in [place], [place]. 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 Important Contacts Son-Pardeep Peters-[phone] Son-Deon Peters- Father- Shakir Peters [phone] Significant other-Anna McadamsJpjztvof-[phone] [employer]- Payee- Dianelys Chambers - [phone] . Prognosis Mr. Valenzuela is a 62-year-old with a past medical history of bipolar disorder, seizure disorder, gout, chronic low back pain, COPD, hypertension, chronic alcoholic pancreatitis, hepatitis B and C, dyslipidemia, and alcoholism. Patient was brought to the ER from an [facility] by EMS on August 28, 2017 to be evaluated for altered mental status, behavioral disturbances and a witnessed fall. Clinical course complicated with decreased oral intake, hypotension, urinary tract infection. . Code Status: No Code Plan PLAN: Legal decision maker: Patient is capable of participating in making his own medical decisions. In the event that he is incapacitated, his 2 adult sons [place] Statute Deon Peters and Pardeep Peters Jr will serve as his health care proxys. Goals: Aggressive CODE STATUS: No Code DNR Offered patient assistance with completing State of [place] DNR. Patient stated that today he is not in a good mood to sign anything. Patient requested that he signs the form some other day. Patient stated that he wants his code status to remain a DNR. SYMPTOMS: * Pain: Multifactorial. Pain can be from bedbound, and other source for pain could be IV. Patient also had complaints of pain to his right wrist. Wrist MRI on 10/05 revealed effusion in the proximal carpal row and in the radiocarpal joint and no osteomyelitis. Pain currently managed with Hydrocodone/ acetaminophen 5/325 and Tramadol. No recommendations at this time. * Decreased oral intake: Patient has been refusing his meals. Patient stated that the day he did not eat he was nauseated but now he has started to eat and drink. Patient appears to consume 50-75% of his breakfast and lunch. No records of dinner %ntage since 09/27. [employer] consulted. Caloric count initiated and completed. Per [employer] patient is not meeting his caloric intake, recommended liberalizing diet from heart healthy diet restrictions.Patent gets Boost TID with meals. Patient is on Multivitamins 1 tab daily. Patient remains on maintenance IVF. Palliative care will continue to follow the patient during hospital course as condition evolves, to assist patient/decision-maker with understanding of their medical conditions, weighing benefits/burdens of treatment options, for clarification of goals of treatment. Additionally will assist with any symptoms of palliative concern Robin Dominguez Oct 15, 2017 15:18
[2017-10-15 16:00] VITALS: BP 126/74; PULSE 83; RESP 16; TEMP 97.9; O2SAT 99
[2017-10-15] MEDS: traMADol HCL 50 MG TAB PO PRN (16:48)
[2017-10-15 20:00] VITALS: BP 134/77; PULSE 65; RESP 18; TEMP 98.1; O2SAT 96
[2017-10-15] MEDS: traZODone HCL 100 MG TAB PO SCH (20:56)
[2017-10-15] MEDS: QUEtiapine FUMARATE 25 MG TAB PO SCH (20:57)
[2017-10-15] MEDS: DIVALPROEX SODIUM E.R. 500 MG TAB PO SCH (20:58)
[2017-10-16] VITALS: BP 119/88; PULSE 89; RESP 19; TEMP 98; O2SAT 96
[2017-10-16] MEDS: traMADol HCL 50 MG TAB PO PRN ×2 (06:24→16:14)
[2017-10-16] MEDS: SERTRALINE HCL 100 MG TAB PO SCH (08:25)
[2017-10-16] MEDS: LACTULOSE SYRUP 20 GM/30 ML CUP PO SCH ×2 (08:25→19:55)
[2017-10-16] MEDS: DOCUSATE SODIUM 50 MG/SENNA 8.6 MG TAB PO SCH ×2 (08:25→19:56)
[2017-10-16] MEDS: MULTIVITAMIN TAB PO SCH (08:26)
[2017-10-16] MEDS: levETIRAcetam 500 MG TAB PO SCH ×2 (08:26→19:55)
[2017-10-16] MEDS: SODIUM CHLORIDE 0.9% FLUSH 10 ML FLUSH IV FLUSH SCH ×2 (08:26→19:55)
[2017-10-16 08:39] VITALS: BP 142/72; PULSE 59; RESP 18; TEMP 97.3; O2SAT 96
--- NOTE | 2017-10-16 10:44 | HHI.PR ---
Subjective Remarks in no acute distress. clinically no change. Objective Vitals Vital Signs Date Time Temp Pulse Resp B/P (MAP) Pulse Ox O2 Delivery O2 Flow Rate FiO2 10/16/17 08:39 97.3 59 18 142/72 (95) 96 10/16/17 00:00 98.0 89 19 119/88 (98) 96 10/15/17 20:00 98.1 65 18 134/77 (96) 96 10/15/17 16:00 97.9 83 16 126/74 (91) 99 10/15/17 12:00 98.8 76 18 120/82 (95) 98 I/O 10/15/17 10/15/17 10/15/17 10/16/17 10/16/17 10/16/17 07:00 15:00 23:00 07:00 15:00 23:00 Intake Total 2850 ml 283 ml 1300 ml 1800 ml Balance 2850 ml 283 ml 1300 ml 1800 ml Intake Oral 2850 ml 1300 ml 1800 ml IV Total 283 ml # Voids 3 1 3 # Bowel Movements 0 0 0 Result Diagram: 10/12/17 1115 Imaging Last Impressions Wrist MRI 10/05/17 0000 Signed Impressions: Service Date/Time: Thursday, October 05, 2017 12:00 - CONCLUSION: 1. No evidence of osteomyelitis. 2. Effusion in the proximal carpal row and in the radiocarpal joint. Fermin Duggan MD Upper Extremity Ultrasound 10/03/17 0000 Signed Impressions: Service Date/Time: Monday, October 02, 2017 14:57 - CONCLUSION: 1. Negative for deep venous thrombosis right upper extremity. Fermin Duggan MD Wrist X-Ray 10/02/17 0000 Signed Impressions: Service Date/Time: Monday, October 02, 2017 10:18 - CONCLUSION: Unremarkable exam. No significant change compared to the prior study. Wade Butler MD Renal Ultrasound 09/24/17 0000 Signed Impressions: Service Date/Time: Sunday, September 24, 2017 09:53 - CONCLUSION: Negative for stone or obstruction. Silvestre Iniguez MD FACR Head CT 08/28/17 0000 Signed Impressions: Service Date/Time: Monday, August 28, 2017 06:05 - CONCLUSION: 1. No acute intracranial hemorrhage. 2. Stable diffuse bilateral cortical atrophy. 3. No significant change compared to the prior exam. Wade Butler MD Cervical Spine CT 08/28/17 0000 Signed Impressions: Service Date/Time: Monday, August 28, 2017 06:08 - CONCLUSION: 1. No acute bony fracture. 2. Stable diffuse primary degenerative changes involving the cervical spine. 3. No new or significant changes. Wade Butler MD Objective Remarks GENERAL: This is a well-nourished, well-developed patient, in no apparent distress. CARDIOVASCULAR: Regular rate and regular rhythm without murmurs, gallops, or rubs. RESPIRATORY: Clear to auscultation. Breath sounds equal bilaterally. No wheezes , rales, or rhonchi. GASTROINTESTINAL: Abdomen soft, non-tender, nondistended. Normal, active bowel sounds MUSCULOSKELETAL: Extremities without clubbing, cyanosis, or edema. NEURO: awake and alert Procedures None Medications and IVs Inpatient Medications Acetaminophen (Tylenol) 650 mg Q4H PRN PO FEVER Last administered on 10/13/17at 20:33; Start 09/23/17 at 09:45 Acetaminophen/ Hydrocodone Bitart ([place] 5-325 Mg) 1 tab Q6H PRN PO pain 1-5 Last administered on 10/15/17at 02:41; Start 10/02/17 at 08:30 Albuterol Sulfate (Albuterol Neb) 1.25 mg Q6HR NEB NEB Last administered on at 21:46; Start 08/30/17 at 11:15; Stop 09/03/17 at 11:14; Status DC Bisacodyl (Dulcolax Supp) 10 mg DAILY PRN RECTAL SEVERE CONSITIPATION; Start at 17:00 Clonidine (Catapres) 0.1 mg Q6H PRN PO SBP> OR = 170, DBP> OR = 100 Last administered on 09/09/17at 16:13; Start 08/29/17 at 18:30 Diphenhydramine HCl (Benadryl Inj) 25 mg ONCE ONCE IM Last administered on at 02:43; Start 08/28/17 at 02:30; Stop 08/28/17 at 02:31; Status DC Divalproex Sodium (Depakote Er) 1,000 mg HS PO Last administered on 10/15/17 20 :58; Start 08/28/17 at 21:00 Enoxaparin Sodium (Lovenox Inj) 30 mg Q24H SQ Last administered on 10/15/17 11: 41; Start 09/25/17 at 12:00 Haloperidol Lactate (Haldol Inj) 2 mg ONCE ONCE IM Last administered on 13:50; Start 08/28/17 at 13:30; Stop 08/28/17 at 13:31; Status DC Heparin Sodium (Porcine) (Heparin Inj) 5,000 units Q12H SQ Last administered on 09/23/17 06:14; Start 08/28/17 at 18:00; Stop 09/25/17 at 10:57; Status DC Hydroxyzine HCl (Atarax) 50 mg Q6HR PRN PO ANXIETY Last administered on 08:12; Start 08/28/17 at 17:15 Lactulose (Lactulose Liq) 30 ml DAILY PRN PO SEVERE CONSITIPATION; Start at 17:00 Levetriacetam (Keppra) 1,500 mg Q12HR PO Last administered on 10/16/17 08:26; Start 08/28/17 at 21:00 Levofloxacin (Levaquin) 500 mg DAILY PO Last administered on 10/14/17 09:08; Start 09/26/17 at 09:00; Stop 10/14/17 at 09:24; Status DC Levofloxacin/ Dextrose 100 ml @ 100 mls/hr Q24H IV Last administered on 14:26; Start 09/23/17 at 15:00; Stop 09/25/17 at 18:19; Status DC Lorazepam (Ativan Inj) 2 mg ONCE ONCE IM Last administered on 08/28/17 05:48 ; Start 08/28/17 at 05:45; Stop 08/28/17 at 05:46; Status DC Magnesium Hydroxide (Milk Of Magnesia Liq) 30 ml Q12H PRN PO Mild constipation Last administered on 10/12/17 20:39; Start 08/28/17 at 17:00 Multivitamins (Theragran) 1 tab DAILY PO Last administered on 10/16/17 08:26; Start 10/08/17 at 09:00 Naloxone HCl (Narcan Inj) 0.4 mg UNSCH PRN IV PUSH SEE LABEL COMMENTS; Start at 17:00 Ondansetron HCl (Zofran Inj) 4 mg Q6H PRN IVP NAUSEA OR VOMITING; Start at 17:00 Phenazopyridine HCl (Pyridium) 200 mg Q8HR PO Last administered on 09/25/17at 05 :54; Start 09/23/17 at 14:15; Stop 09/25/17 at 11:01; Status DC Potassium Chloride/Dextrose/ Sod Cl 1,000 ml @ 75 mls/hr [id number] IV Last administered on 09/25/17at 05:58; Start 09/23/17 at 14:15; Stop 09/25/17 at 10:57 ; Status DC Potassium Bicarb/ Potassium Chloride (K-Lyte Cl Eff) 50 meq ONCE ONCE PO Last administered on 08/28/17at 18:09; Start 08/28/17 at 17:00; Stop 08/28/17 at 17:24; Status DC Potassium Chloride 100 ml @ 100 mls/hr Q1H IV Last administered on 08/30/17at 12:45; Start 08/30/17 at 09:45; Stop 08/30/17 at 13:44; Status DC Potassium Chloride (KCl) 30 meq ONCE ONCE PO Last administered on 08/30/17at 10 :31; Start 08/30/17 at 09:45; Stop 08/30/17 at 09:55; Status DC Prednisone (Deltasone) 30 mg DAILY PO Last administered on 09/21/17at 10:00; Start 09/10/17 at 09:00; Stop 09/21/17 at 11:50; Status DC Quetiapine Fumarate (SEROquel) 75 mg HS PO Last administered on 10/15/17at 20:57 ; Start 08/29/17 at 21:00 Senna/Docusate Sodium (Leanne-Colace) 1 tab BID PO Last administered on 10/16/17at 08:25; Start 08/28/17 at 21:00 Sennosides (Senokot) 17.2 mg Q12H PRN PO Moderate constipation; Start 08/28/17 at 17:00 Sertraline HCl (Zoloft) 200 mg DAILY PO Last administered on 10/16/17 08:25; Start 08/29/17 at 09:00 Sodium Chloride 1,000 ml @ 75 mls/hr [id number] IV Last administered on 10/15/17 02:40; Start 10/12/17 at 09:45; Stop 10/15/17 at 10:55; Status DC Sodium Chloride (NS Flush) 2 ml BID IV FLUSH Last administered on 10/16/17 08: 26; Start 08/28/17 at 21:00 Tamsulosin HCl (Flomax) 0.4 mg DAILY PO Last administered on 10/12/17at 08:37; Start 09/24/17 at 10:15; Status Future Hold Tramadol HCl (Ultram) 50 mg Q8H PRN PO pain >5 Last administered on 10/16/17 06 :24; Start 09/27/17 at 21:45 Trazodone HCl (Desyrel) 200 mg HS PO Last administered on 10/15/17at 20:56; Start 08/28/17 at 21:00 A/P Problem List: (1) Encephalopathy ICD Code: G93.40 - Encephalopathy Status: Acute (2) Alcohol-induced mood disorder ICD Code: F10.94 - Alcohol use, unspecified with alcohol-induced mood disorder Status: Acute (3) Debility ICD Code: R53.81 - Other malaise (4) COPD (chronic obstructive pulmonary disease) ICD Code: J44.9 - COPD (chronic obstructive pulmonary disease) Status: Chronic (5) PTSD (post-traumatic stress disorder) ICD Code: F43.10 - Post-traumatic stress disorder, unspecified Assessment and Plan Hypotension on 10/12 -Most likely secondary to oral intake. -BP improved. -stopped IV fluid. Anorexia - consulted dietitian for calorie count. calorie count shows that the patient doesn't get enough calories- however the patient is refusing PEG placement. UTI growing E. Coli Elevated PSA - treated with Levaquin. -Urology consulted for elevated PSA, recommendations appreciated -continue Flomax, repeat UA and PSA on an outpatient basis. Aggressive behavior, encephalopathy: improving the Avelar act was lifted by psychiatry Continue Seroquel, sertraline. Currently on lactulose, Ammonia level on 09/22 was 39. More awake and alert. Right wrist pain and swelling, improving. X ray reviewed no fracture. US negative. Pain control with norco as need pr pain scale. orthopedic doctor for consulted recommended MRI. MRI 10/05/17 of right wrist reviewed negative. continue with pain control. Thrombocytopenia: -Chronic, at baseline. PLTs stable, H&H stable with no reported bleeding. Seizure disorder: -Continue Depakote, Keppra. Seizure precautions. PTSD, personality disorder: -Appreciate psychiatry recommendations. -Continue Seroquel. Trazodone daily at bedtime. COPD: -s/p Prednisone taper, currently stable on room air. Generalized weakness: - Patient has chronic debility likely secondary to chronic alcohol abuse. - Continue PT DVT prophylaxis: Lovenox. Discharge Planning dc planning in progress. Rob Kwon MD Oct 16, 2017 10:44
[2017-10-16 12:32] VITALS: BP 117/67; PULSE 60; RESP 18; TEMP 98.3; O2SAT 96
[2017-10-16] MEDS: ENOXAPARIN SODIUM 30 MG/0.3 ML SYRINGE SQ SCH (13:19)
[2017-10-16 16:01] VITALS: BP 121/76; PULSE 63; RESP 18; TEMP 97.7; O2SAT 96
[2017-10-16] MEDS: QUEtiapine FUMARATE 25 MG TAB PO SCH (19:54)
[2017-10-16] MEDS: traZODone HCL 100 MG TAB PO SCH (19:54)
[2017-10-16] MEDS: DIVALPROEX SODIUM E.R. 500 MG TAB PO SCH (19:54)
[2017-10-16 20:09] VITALS: BP 127/80; PULSE 61; RESP 18; TEMP 98.1; O2SAT 95
[2017-10-17 00:37] VITALS: BP 97/55; PULSE 69; RESP 18; TEMP 97.2; O2SAT 96
[2017-10-17 05:16] VITALS: BP 106/62; PULSE 63; RESP 18; TEMP 98.7; O2SAT 96
[2017-10-17 08:10] VITALS: BP 113/70; PULSE 60; RESP 18; TEMP 98; O2SAT 94
[2017-10-17] MEDS: MULTIVITAMIN TAB PO SCH (09:09)
[2017-10-17] MEDS: DOCUSATE SODIUM 50 MG/SENNA 8.6 MG TAB PO SCH ×2 (09:09→21:03)
[2017-10-17] MEDS: levETIRAcetam 500 MG TAB PO SCH ×2 (09:09→21:03)
[2017-10-17] MEDS: LACTULOSE SYRUP 20 GM/30 ML CUP PO SCH ×2 (09:10→21:00)
[2017-10-17] MEDS: SERTRALINE HCL 100 MG TAB PO SCH (09:10)
[2017-10-17] MEDS: SODIUM CHLORIDE 0.9% FLUSH 10 ML FLUSH IV FLUSH SCH ×2 (09:10→21:04)
--- NOTE | 2017-10-17 11:00 | HHI.PR ---
Subjective Remarks in no distress. looks comfortable. clinically no change. Objective Vitals Vital Signs Date Time Temp Pulse Resp B/P (MAP) Pulse Ox O2 Delivery O2 Flow Rate FiO2 10/17/17 08:10 98.0 60 18 113/70 (84) 94 10/17/17 05:16 98.7 63 18 106/62 (77) 96 10/17/17 00:37 97.2 69 18 97/55 (69) 96 10/16/17 20:09 98.1 61 18 127/80 (96) 95 10/16/17 16:01 97.7 63 18 121/76 (91) 96 10/16/17 12:32 98.3 60 18 117/67 (84) 96 I/O 10/16/17 10/16/17 10/16/17 10/17/17 10/17/17 10/17/17 06:59 14:59 22:59 06:59 14:59 22:59 Intake Total 1800 ml Balance 1800 ml Intake Oral 1800 ml # Voids 3 1 # Bowel Movements 0 Imaging Last Impressions Wrist MRI 10/05/17 0000 Signed Impressions: Service Date/Time: Thursday, October 05, 2017 12:00 - CONCLUSION: 1. No evidence of osteomyelitis. 2. Effusion in the proximal carpal row and in the radiocarpal joint. Fermin Duggan MD Upper Extremity Ultrasound 10/03/17 0000 Signed Impressions: Service Date/Time: Monday, October 02, 2017 14:57 - CONCLUSION: 1. Negative for deep venous thrombosis right upper extremity. Fermin Duggan MD Wrist X-Ray 10/02/17 0000 Signed Impressions: Service Date/Time: Monday, October 02, 2017 10:18 - CONCLUSION: Unremarkable exam. No significant change compared to the prior study. Wade Butler MD Renal Ultrasound 09/24/17 0000 Signed Impressions: Service Date/Time: Sunday, September 24, 2017 09:53 - CONCLUSION: Negative for stone or obstruction. Silvestre Iniguez MD FACR Head CT 08/28/17 0000 Signed Impressions: Service Date/Time: Monday, August 28, 2017 06:05 - CONCLUSION: 1. No acute intracranial hemorrhage. 2. Stable diffuse bilateral cortical atrophy. 3. No significant change compared to the prior exam. Wade Butler MD Cervical Spine CT 08/28/17 0000 Signed Impressions: Service Date/Time: Monday, August 28, 2017 06:08 - CONCLUSION: 1. No acute bony fracture. 2. Stable diffuse primary degenerative changes involving the cervical spine. 3. No new or significant changes. Wade Butler MD Objective Remarks GENERAL: This is a well-nourished, well-developed patient, in no apparent distress. CARDIOVASCULAR: Regular rate and regular rhythm without murmurs, gallops, or rubs. RESPIRATORY: Clear to auscultation. Breath sounds equal bilaterally. No wheezes , rales, or rhonchi. GASTROINTESTINAL: Abdomen soft, non-tender, nondistended. Normal, active bowel sounds MUSCULOSKELETAL: Extremities without clubbing, cyanosis, or edema. NEURO: awake and alert Procedures None Medications and IVs Inpatient Medications Acetaminophen (Tylenol) 650 mg Q4H PRN PO FEVER Last administered on 10/13/17at 20:33; Start 09/23/17 at 09:45 Acetaminophen/ Hydrocodone Bitart ([place] 5-325 Mg) 1 tab Q6H PRN PO pain 1-5 Last administered on 10/15/17 02:41; Start 10/02/17 at 08:30 Albuterol Sulfate (Albuterol Neb) 1.25 mg Q6HR NEB NEB Last administered on at 21:46; Start 08/30/17 at 11:15; Stop 09/03/17 at 11:14; Status DC Bisacodyl (Dulcolax Supp) 10 mg DAILY PRN RECTAL SEVERE CONSITIPATION; Start at 17:00 Clonidine (Catapres) 0.1 mg Q6H PRN PO SBP> OR = 170, DBP> OR = 100 Last administered on 09/09/17at 16:13; Start 08/29/17 at 18:30 Diphenhydramine HCl (Benadryl Inj) 25 mg ONCE ONCE IM Last administered on at 02:43; Start 08/28/17 at 02:30; Stop 08/28/17 at 02:31; Status DC Divalproex Sodium (Depakote Er) 1,000 mg HS PO Last administered on 10/16/17at 19 :54; Start 08/28/17 at 21:00 Enoxaparin Sodium (Lovenox Inj) 30 mg Q24H SQ Last administered on 10/16/17 13: 19; Start 09/25/17 at 12:00 Haloperidol Lactate (Haldol Inj) 2 mg ONCE ONCE IM Last administered on at 13:50; Start 08/28/17 at 13:30; Stop 08/28/17 at 13:31; Status DC Heparin Sodium (Porcine) (Heparin Inj) 5,000 units Q12H SQ Last administered on 09/23/17at 06:14; Start 08/28/17 at 18:00; Stop 09/25/17 at 10:57; Status DC Hydroxyzine HCl (Atarax) 50 mg Q6HR PRN PO ANXIETY Last administered on 08:12; Start 08/28/17 at 17:15 Lactulose (Lactulose Liq) 30 ml DAILY PRN PO SEVERE CONSITIPATION; Start at 17:00 Levetriacetam (Keppra) 1,500 mg Q12HR PO Last administered on 10/17/17 09:09; Start 08/28/17 at 21:00 Levofloxacin (Levaquin) 500 mg DAILY PO Last administered on 10/14/17 09:08; Start 09/26/17 at 09:00; Stop 10/14/17 at 09:24; Status DC Levofloxacin/ Dextrose 100 ml @ 100 mls/hr Q24H IV Last administered on 14:26; Start 09/23/17 at 15:00; Stop 09/25/17 at 18:19; Status DC Lorazepam (Ativan Inj) 2 mg ONCE ONCE IM Last administered on 08/28/17at 05:48 ; Start 08/28/17 at 05:45; Stop 08/28/17 at 05:46; Status DC Magnesium Hydroxide (Milk Of Magnesia Liq) 30 ml Q12H PRN PO Mild constipation Last administered on 10/12/17at 20:39; Start 08/28/17 at 17:00 Multivitamins (Theragran) 1 tab DAILY PO Last administered on 10/17/17 09:09; Start 10/08/17 at 09:00 Naloxone HCl (Narcan Inj) 0.4 mg UNSCH PRN IV PUSH SEE LABEL COMMENTS; Start at 17:00 Ondansetron HCl (Zofran Inj) 4 mg Q6H PRN IVP NAUSEA OR VOMITING; Start at 17:00 Phenazopyridine HCl (Pyridium) 200 mg Q8HR PO Last administered on 09/25/17at 05 :54; Start 09/23/17 at 14:15; Stop 09/25/17 at 11:01; Status DC Potassium Chloride/Dextrose/ Sod Cl 1,000 ml @ 75 mls/hr [id number] IV Last administered on 09/25/17at 05:58; Start 09/23/17 at 14:15; Stop 09/25/17 at 10:57 ; Status DC Potassium Bicarb/ Potassium Chloride (K-Lyte Cl Eff) 50 meq ONCE ONCE PO Last administered on 08/28/17at 18:09; Start 08/28/17 at 17:00; Stop 08/28/17 at 17:24; Status DC Potassium Chloride 100 ml @ 100 mls/hr Q1H IV Last administered on 08/30/17at 12:45; Start 08/30/17 at 09:45; Stop 08/30/17 at 13:44; Status DC Potassium Chloride (KCl) 30 meq ONCE ONCE PO Last administered on 08/30/17at 10 :31; Start 08/30/17 at 09:45; Stop 08/30/17 at 09:55; Status DC Prednisone (Deltasone) 30 mg DAILY PO Last administered on 09/21/17at 10:00; Start 09/10/17 at 09:00; Stop 09/21/17 at 11:50; Status DC Quetiapine Fumarate (SEROquel) 75 mg HS PO Last administered on 10/16/17at 19:54 ; Start 08/29/17 at 21:00 Senna/Docusate Sodium (Leanne-Colace) 1 tab BID PO Last administered on 10/17/17 09:09; Start 08/28/17 at 21:00 Sennosides (Senokot) 17.2 mg Q12H PRN PO Moderate constipation; Start 08/28/17 at 17:00 Sertraline HCl (Zoloft) 200 mg DAILY PO Last administered on 10/17/17at 09:10; Start 08/29/17 at 09:00 Sodium Chloride 1,000 ml @ 75 mls/hr [id number] IV Last administered on 10/15/17at 02:40; Start 10/12/17 at 09:45; Stop 10/15/17 at 10:55; Status DC Sodium Chloride (NS Flush) 2 ml BID IV FLUSH Last administered on 10/17/17 09: 10; Start 08/28/17 at 21:00 Tamsulosin HCl (Flomax) 0.4 mg DAILY PO Last administered on 10/12/17at 08:37; Start 09/24/17 at 10:15; Status Future Hold Tramadol HCl (Ultram) 50 mg Q8H PRN PO pain >5 Last administered on 10/16/17 16 :14; Start 09/27/17 at 21:45 Trazodone HCl (Desyrel) 200 mg HS PO Last administered on 10/16/17at 19:54; Start 08/28/17 at 21:00 A/P Problem List: (1) Encephalopathy ICD Code: G93.40 - Encephalopathy Status: Acute (2) Alcohol-induced mood disorder ICD Code: F10.94 - Alcohol use, unspecified with alcohol-induced mood disorder Status: Acute (3) Debility ICD Code: R53.81 - Other malaise (4) COPD (chronic obstructive pulmonary disease) ICD Code: J44.9 - COPD (chronic obstructive pulmonary disease) Status: Chronic (5) PTSD (post-traumatic stress disorder) ICD Code: F43.10 - Post-traumatic stress disorder, unspecified Assessment and Plan Hypotension on 10/12 -Most likely secondary to oral intake. -BP improved. -stopped IV fluid. Anorexia - consulted dietitian for calorie count. calorie count shows that the patient doesn't get enough calories- however the patient is refusing PEG placement. UTI growing E. Coli Elevated PSA - treated with Levaquin. -Urology consulted for elevated PSA, recommendations appreciated -continue Flomax, repeat UA and PSA on an outpatient basis. Aggressive behavior, encephalopathy: improving the Avelar act was lifted by psychiatry Continue Seroquel, sertraline. Currently on lactulose, Ammonia level on 09/22 was 39. More awake and alert. Right wrist pain and swelling, improving. X ray reviewed no fracture. US negative. Pain control with norco as need pr pain scale. orthopedic doctor for consulted recommended MRI. MRI 10/05/17 of right wrist reviewed negative. continue with pain control. Thrombocytopenia: -Chronic, at baseline. PLTs stable, H&H stable with no reported bleeding. Seizure disorder: -Continue Depakote, Keppra. Seizure precautions. PTSD, personality disorder: -Appreciate psychiatry recommendations. -Continue Seroquel. Trazodone daily at bedtime. COPD: -s/p Prednisone taper, currently stable on room air. Generalized weakness: - Patient has chronic debility likely secondary to chronic alcohol abuse. - Continue PT DVT prophylaxis: Lovenox. Discharge Planning dc planning in progress. Rob Kwon MD Oct 17, 2017 11:00
[2017-10-17] MEDS: traMADol HCL 50 MG TAB PO PRN (11:27)
[2017-10-17] MEDS: ENOXAPARIN SODIUM 30 MG/0.3 ML SYRINGE SQ SCH (11:27)
[2017-10-17 12:07] VITALS: BP 122/76; PULSE 58; RESP 20; TEMP 98.4; O2SAT 95
[2017-10-17 16:33] VITALS: BP 121/74; PULSE 58; RESP 20; TEMP 97.7; O2SAT 96
[2017-10-17] MEDS: traZODone HCL 100 MG TAB PO SCH (21:03)
[2017-10-17] MEDS: QUEtiapine FUMARATE 25 MG TAB PO SCH (21:03)
[2017-10-17] MEDS: DIVALPROEX SODIUM E.R. 500 MG TAB PO SCH (21:04)
[2017-10-17 21:12] VITALS: BP 135/79; PULSE 62; RESP 17; TEMP 97.6; O2SAT 97
[2017-10-18 00:51] VITALS: BP 142/70; PULSE 72; RESP 17; TEMP 97.8; O2SAT 98
[2017-10-18 05:31] VITALS: BP 119/74; PULSE 79; RESP 17; TEMP 97.8; O2SAT 95
[2017-10-18 08:29] VITALS: BP 106/58; PULSE 72; RESP 16; TEMP 98.1; O2SAT 93
--- NOTE | 2017-10-18 10:41 | HHI.PR ---
Subjective Remarks in no acute distress. resting comfortably. no change clinically. Objective Vitals Vital Signs Date Time Temp Pulse Resp B/P (MAP) Pulse Ox O2 Delivery O2 Flow Rate FiO2 10/18/17 08:29 98.1 72 16 106/58 (74) 93 10/18/17 05:31 97.8 79 17 119/74 (89) 95 10/18/17 00:51 97.8 72 17 142/70 (94) 98 10/17/17 21:12 97.6 62 17 135/79 (97) 97 10/17/17 16:33 97.7 58 20 121/74 (90) 96 10/17/17 12:07 98.4 58 20 122/76 (91) 95 I/O 10/17/17 10/17/17 10/17/17 10/18/17 10/18/17 10/18/17 07:00 15:00 23:00 07:00 15:00 23:00 Intake Total 240 ml 480 ml Balance 240 ml 480 ml Intake Oral 240 ml 480 ml # Voids 1 4 Imaging Last Impressions Wrist MRI 10/05/17 0000 Signed Impressions: Service Date/Time: Thursday, October 05, 2017 12:00 - CONCLUSION: 1. No evidence of osteomyelitis. 2. Effusion in the proximal carpal row and in the radiocarpal joint. Fermin Duggan MD Upper Extremity Ultrasound 10/03/17 0000 Signed Impressions: Service Date/Time: Monday, October 02, 2017 14:57 - CONCLUSION: 1. Negative for deep venous thrombosis right upper extremity. Fermin Duggan MD Wrist X-Ray 10/02/17 0000 Signed Impressions: Service Date/Time: Monday, October 02, 2017 10:18 - CONCLUSION: Unremarkable exam. No significant change compared to the prior study. Wade Butler MD Renal Ultrasound 09/24/17 0000 Signed Impressions: Service Date/Time: Sunday, September 24, 2017 09:53 - CONCLUSION: Negative for stone or obstruction. Silvestre Iniguez MD FACR Head CT 08/28/17 0000 Signed Impressions: Service Date/Time: Monday, August 28, 2017 06:05 - CONCLUSION: 1. No acute intracranial hemorrhage. 2. Stable diffuse bilateral cortical atrophy. 3. No significant change compared to the prior exam. Wade Butler MD Cervical Spine CT 08/28/17 0000 Signed Impressions: Service Date/Time: Monday, August 28, 2017 06:08 - CONCLUSION: 1. No acute bony fracture. 2. Stable diffuse primary degenerative changes involving the cervical spine. 3. No new or significant changes. Wade Butler MD Objective Remarks GENERAL: This is a well-nourished, well-developed patient, in no apparent distress. CARDIOVASCULAR: Regular rate and regular rhythm without murmurs, gallops, or rubs. RESPIRATORY: Clear to auscultation. Breath sounds equal bilaterally. No wheezes , rales, or rhonchi. GASTROINTESTINAL: Abdomen soft, non-tender, nondistended. Normal, active bowel sounds MUSCULOSKELETAL: Extremities without clubbing, cyanosis, or edema. NEURO: awake and alert Procedures None Medications and IVs Inpatient Medications Acetaminophen (Tylenol) 650 mg Q4H PRN PO FEVER Last administered on 10/13/17at 20:33; Start 09/23/17 at 09:45 Acetaminophen/ Hydrocodone Bitart ([place] 5-325 Mg) 1 tab Q6H PRN PO pain 1-5 Last administered on 10/15/17 02:41; Start 10/02/17 at 08:30 Albuterol Sulfate (Albuterol Neb) 1.25 mg Q6HR NEB NEB Last administered on at 21:46; Start 08/30/17 at 11:15; Stop 09/03/17 at 11:14; Status DC Bisacodyl (Dulcolax Supp) 10 mg DAILY PRN RECTAL SEVERE CONSITIPATION; Start at 17:00 Clonidine (Catapres) 0.1 mg Q6H PRN PO SBP> OR = 170, DBP> OR = 100 Last administered on 09/09/17at 16:13; Start 08/29/17 at 18:30 Diphenhydramine HCl (Benadryl Inj) 25 mg ONCE ONCE IM Last administered on at 02:43; Start 08/28/17 at 02:30; Stop 08/28/17 at 02:31; Status DC Divalproex Sodium (Depakote Er) 1,000 mg HS PO Last administered on 3/4/18at 21 :04; Start 08/28/17 at 21:00 Enoxaparin Sodium (Lovenox Inj) 30 mg Q24H SQ Last administered on 10/17/17 11: 27; Start 09/25/17 at 12:00 Haloperidol Lactate (Haldol Inj) 2 mg ONCE ONCE IM Last administered on at 13:50; Start 08/28/17 at 13:30; Stop 08/28/17 at 13:31; Status DC Heparin Sodium (Porcine) (Heparin Inj) 5,000 units Q12H SQ Last administered on 09/23/17at 06:14; Start 08/28/17 at 18:00; Stop 09/25/17 at 10:57; Status DC Hydroxyzine HCl (Atarax) 50 mg Q6HR PRN PO ANXIETY Last administered on at 08:12; Start 08/28/17 at 17:15 Lactulose (Lactulose Liq) 30 ml DAILY PRN PO SEVERE CONSITIPATION; Start at 17:00 Levetriacetam (Keppra) 1,500 mg Q12HR PO Last administered on 10/17/17 21:03; Start 08/28/17 at 21:00 Levofloxacin (Levaquin) 500 mg DAILY PO Last administered on 10/14/17 09:08; Start 09/26/17 at 09:00; Stop 10/14/17 at 09:24; Status DC Levofloxacin/ Dextrose 100 ml @ 100 mls/hr Q24H IV Last administered on at 14:26; Start 09/23/17 at 15:00; Stop 09/25/17 at 18:19; Status DC Lorazepam (Ativan Inj) 2 mg ONCE ONCE IM Last administered on 08/28/17at 05:48 ; Start 08/28/17 at 05:45; Stop 08/28/17 at 05:46; Status DC Magnesium Hydroxide (Milk Of Magnesia Liq) 30 ml Q12H PRN PO Mild constipation Last administered on 10/12/17at 20:39; Start 08/28/17 at 17:00 Multivitamins (Theragran) 1 tab DAILY PO Last administered on 10/17/17 09:09; Start 10/08/17 at 09:00 Naloxone HCl (Narcan Inj) 0.4 mg UNSCH PRN IV PUSH SEE LABEL COMMENTS; Start at 17:00 Ondansetron HCl (Zofran Inj) 4 mg Q6H PRN IVP NAUSEA OR VOMITING; Start at 17:00 Phenazopyridine HCl (Pyridium) 200 mg Q8HR PO Last administered on 09/25/17at 05 :54; Start 09/23/17 at 14:15; Stop 09/25/17 at 11:01; Status DC Potassium Chloride/Dextrose/ Sod Cl 1,000 ml @ 75 mls/hr [id number] IV Last administered on 09/25/17at 05:58; Start 09/23/17 at 14:15; Stop 09/25/17 at 10:57 ; Status DC Potassium Bicarb/ Potassium Chloride (K-Lyte Cl Eff) 50 meq ONCE ONCE PO Last administered on 08/28/17at 18:09; Start 08/28/17 at 17:00; Stop 08/28/17 at 17:24; Status DC Potassium Chloride 100 ml @ 100 mls/hr Q1H IV Last administered on 08/30/17at 12:45; Start 08/30/17 at 09:45; Stop 08/30/17 at 13:44; Status DC Potassium Chloride (KCl) 30 meq ONCE ONCE PO Last administered on 08/30/17at 10 :31; Start 08/30/17 at 09:45; Stop 08/30/17 at 09:55; Status DC Prednisone (Deltasone) 30 mg DAILY PO Last administered on 09/21/17at 10:00; Start 09/10/17 at 09:00; Stop 09/21/17 at 11:50; Status DC Quetiapine Fumarate (SEROquel) 75 mg HS PO Last administered on 10/17/17at 21:03 ; Start 08/29/17 at 21:00 Senna/Docusate Sodium (Leanne-Colace) 1 tab BID PO Last administered on 10/17/17at 21:03; Start 08/28/17 at 21:00 Sennosides (Senokot) 17.2 mg Q12H PRN PO Moderate constipation; Start 08/28/17 at 17:00 Sertraline HCl (Zoloft) 200 mg DAILY PO Last administered on 10/17/17 09:10; Start 08/29/17 at 09:00 Sodium Chloride 1,000 ml @ 75 mls/hr [id number] IV Last administered on 10/15/17at 02:40; Start 10/12/17 at 09:45; Stop 10/15/17 at 10:55; Status DC Sodium Chloride (NS Flush) 2 ml BID IV FLUSH Last administered on 10/17/17 21: 04; Start 08/28/17 at 21:00 Tamsulosin HCl (Flomax) 0.4 mg DAILY PO Last administered on 10/12/17at 08:37; Start 09/24/17 at 10:15; Status Future Hold Tramadol HCl (Ultram) 50 mg Q8H PRN PO pain >5 Last administered on 10/17/17 11 :27; Start 09/27/17 at 21:45 Trazodone HCl (Desyrel) 200 mg HS PO Last administered on 10/17/17 21:03; Start 08/28/17 at 21:00 A/P Problem List: (1) Encephalopathy ICD Code: G93.40 - Encephalopathy Status: Acute (2) Alcohol-induced mood disorder ICD Code: F10.94 - Alcohol use, unspecified with alcohol-induced mood disorder Status: Acute (3) Debility ICD Code: R53.81 - Other malaise (4) COPD (chronic obstructive pulmonary disease) ICD Code: J44.9 - COPD (chronic obstructive pulmonary disease) Status: Chronic (5) PTSD (post-traumatic stress disorder) ICD Code: F43.10 - Post-traumatic stress disorder, unspecified Assessment and Plan Anorexia - consulted dietitian for calorie count. calorie count shows that the patient doesn't get enough calories- however the patient is refusing PEG placement. - continue with supplements. UTI growing E. Coli Elevated PSA - treated with Levaquin. -Urology consulted for elevated PSA, recommendations appreciated -continue Flomax, repeat UA and PSA on an outpatient basis. Aggressive behavior, encephalopathy: improving the Avelar act was lifted by psychiatry Continue Seroquel, sertraline. Currently on lactulose. Right wrist pain and swelling, improving. X ray reviewed no fracture. US negative. Pain control with norco as need pr pain scale. orthopedic doctor for consulted recommended MRI. MRI 10/05/17 of right wrist reviewed negative. continue with pain control. Thrombocytopenia: -Chronic, at baseline. PLTs stable, H&H stable with no reported bleeding. Seizure disorder: -Continue David Luther. Seizure precautions. PTSD, personality disorder: -Appreciate psychiatry recommendations. -Continue Seroquel. Trazodone daily at bedtime. COPD: -s/p Prednisone taper, currently stable on room air. Generalized weakness: - Patient has chronic debility likely secondary to chronic alcohol abuse. - Continue PT DVT prophylaxis: Lovenox. Discharge Planning dc planning in progress. Rob Kwon MD Oct 18, 2017 10:41
[2017-10-18] MEDS: SODIUM CHLORIDE 0.9% FLUSH 10 ML FLUSH IV FLUSH SCH ×2 (11:03→21:05)
[2017-10-18] MEDS: DOCUSATE SODIUM 50 MG/SENNA 8.6 MG TAB PO SCH ×2 (11:04→21:00)
[2017-10-18] MEDS: SERTRALINE HCL 100 MG TAB PO SCH (11:04)
[2017-10-18] MEDS: MULTIVITAMIN TAB PO SCH (11:04)
[2017-10-18] MEDS: LACTULOSE SYRUP 20 GM/30 ML CUP PO SCH ×2 (11:05→21:06)
[2017-10-18] MEDS: levETIRAcetam 500 MG TAB PO SCH ×2 (11:05→21:05)
[2017-10-18] MEDS: ENOXAPARIN SODIUM 30 MG/0.3 ML SYRINGE SQ SCH (11:07)
[2017-10-18 12:12] VITALS: BP 125/73; PULSE 59; RESP 17; TEMP 97.6; O2SAT 97
--- NOTE | 2017-10-18 16:22 | HHI.HCPN ---
Reason for visit a. To assist with evaluation and management of symptoms including: Pain, decreased oral intake b. To assist medical decision maker(s) with: better understanding of current medical conditions; weighing benefits/burdens of medical treatment options; making medical treatment decisions. Subjective/Interval History Patient seen and examined in his room. Patient is sleeping, easily arousable. Patient is alert, oriented to self, place and situation. Patient is very hard of hearing. Patient denies pain. Pain is managed with Tramadol and Hydrocodone/ acetaminophen 5/325 prn. His last hydrocodone dose was given on 10/15/17 and last tramadol was administered on 10/17/17. Patient is endorsing improving appetite and increased oral intake. Last documented meal percentages was on and patient had 0% entered for all meals. Patient gets Boost TID with meals. Patient stating that Pat his friend is assisting him with finding a place for them to live. Vital signs stable. Discussed completion of Health care surrogate (HCS) form left on bedside as well as community DNR. Patient hesitant to sign both. Patient still wants to maintain the DNR status during this hospitalization. . Family/friend interactions No family at bedside. . Advance Directives Living Will: Never completed Health Care Surrogate: Never completed Durable Power of Field Handyman: Never completed Advance Directive Specifics Health Care Surrogate(s): Health Care Proxys Zach Heath Marker- Charo Ontken-[phone] . Objective Vital Signs Date Time Temp Pulse Resp B/P (MAP) Pulse Ox O2 Delivery O2 Flow Rate FiO2 10/18/17 12:12 97.6 59 17 125/73 (90) 97 10/18/17 08:29 98.1 72 16 106/58 (74) 93 10/18/17 05:31 97.8 79 17 119/74 (89) 95 10/18/17 00:51 97.8 72 17 142/70 (94) 98 10/17/17 21:12 97.6 62 17 135/79 (97) 97 10/17/17 16:33 97.7 58 20 121/74 (90) 96 Intake & Output 10/18/17 10/18/17 07:00 19:00 Intake Total 480 ml Balance 480 ml Intake Oral 480 ml # Voids 4 Physical Exam CONSTITUTIONAL/GENERAL: This is an adequately nourished patient, in no apparent distress. Denies pain TUBES/LINES/DRAINS:PIV SKIN: No jaundice, rashes, or lesions. Ecchymoses on upper extremities. No wounds seen anteriorly. Skin temperature appropriate. Not diaphoretic. HEAD: Atraumatic. Normocephalic. EYES: Pupils equal and round and reactive. Extraocular motions intact. No scleral icterus. No injection or drainage. Fundi not examined. ENT: Hard of Hearing.Nose without bleeding or purulent drainage. NECK: Trachea midline. Supple, nontender. CARDIOVASCULAR: Regular rate and rhythm without murmurs, gallops, or rubs. No JVD. Peripheral pulses symmetric. RESPIRATORY/CHEST: Symmetric, unlabored respirations. Clear to auscultation. Breath sounds equal bilaterally. No wheezes, rales, or rhonchi. GASTROINTESTINAL: Abdomen soft, non-tender, nondistended. No guarding. Bowel sounds present. GENITOURINARY: Without palpable bladder distension. MUSCULOSKELETAL: Extremities without clubbing, cyanosis, or edema. No joint tenderness or effusion noted. No calf tenderness. No mottling or clubbing. NEUROLOGICAL: Sleeping but easily arousable. Motor and sensory grossly within normal limits. Follows commands. Moves all extremities. PSYCHIATRIC: No obvious anxiety/depression. no apparent hallucinations or other psychotic thought process. . Diagnostic Tests Laboratory . Assessment and Plan Disease Oriented Problem List: (1) Alcohol-induced mood disorder (2) PTSD (post-traumatic stress disorder) (3) Bipolar disorder (4) COPD (chronic obstructive pulmonary disease) Symptom Scale: (1) Decreased oral intake 0-10 Scale: Unable to quantify (2) Pain 0-10 Scale: Unable to quantify Comment: Multifactorial. c/o pain to Right shoulder and wrist. Wrist MRI on revealed effusion in the proximal carpal row and in the radiocarpal joint and no osteomyelitis. . Pertinent Non-Medical Issues Psychosocial:Patient was born and raised in [place]. Patient served in the [employer] during the [place] war for 6 years. He moved to [place] in the 1970s. Patient was and once. He has 2 sons whom he states he has not spoken to in about 10 years. Patient stated that the last he heard from them was about 10 years ago and at that time they were in [place], [place]. 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 Important Contacts Son-Pardeep Peters-[phone] Son-Deon Peters- Father- Edy Peters Pe-[phone] Significant other-Anna McadamsJfzwdxky-[phone] [place] [facility]- Payee- Dianelys Chambers - [phone] . Prognosis Mr. Valenzuela is a 62-year-old with a past medical history of bipolar disorder, seizure disorder, gout, chronic low back pain, COPD, hypertension, chronic alcoholic pancreatitis, hepatitis B and C, dyslipidemia, and alcoholism. Patient was brought to the ER from an [facility] by EMS on August 28, 2017 to be evaluated for altered mental status, behavioral disturbances and a witnessed fall. Clinical course complicated with decreased oral intake, hypotension, urinary tract infection. . Code Status: No Code Plan PLAN: Legal decision maker: Patient is capable of participating in making his own medical decisions. In the event that he is incapacitated, his 2 adult sons [place] Shanice Peters and Pardeep Peters Jr will serve as his health care proxys. Goals: Aggressive CODE STATUS: No Code DNR SYMPTOMS: * Pain: Multifactorial. Pain can be from bedbound, and other source for pain could be IV. Patient also had complaints of pain to his right wrist. Wrist MRI on 10/05 revealed effusion in the proximal carpal row and in the radiocarpal joint and no osteomyelitis. Pain currently managed with Hydrocodone/ acetaminophen 5/325 and Tramadol. His last hydrocodone dose was given on 10/15/17 and last tramadol was administered on 10/17/17. No recommendations at this time. * Decreased oral intake: Patient has been refusing his meals. Patient stated that the day he did not eat he was nauseated but now he has started to eat and drink. Patient appears to consume 50-75% of his breakfast and lunch. Agricultural And Forestry Supervisor consulted. Caloric count initiated and completed. Per Agricultural And Forestry Supervisor patient is not meeting his caloric intake, recommended liberalizing diet from heart healthy diet restrictions.Patent gets Boost TID with meals. Patient is on Multivitamins 1 tab daily. Maintenance IVF discontinued.Last documented meal percentages was on 10/16/17 and patient had 0% entered for all meals. Palliative care will continue to follow the patient during hospital course as condition evolves, to assist patient/decision-maker with understanding of their medical conditions, weighing benefits/burdens of treatment options, for clarification of goals of treatment. Additionally will assist with any symptoms of palliative concern Attestation To help prompt me to consider important information that might be impacting today's encounter and assessment, information from prior notes written by myself or my colleagues may have been "brought forward" into today's note. My signature on this note, however, is an attestation that I personally performed the exam, history, and/or decision-making noted today, and, unless otherwise indicated, the interactions with patient, family, and staff as well as the review of records all occurred today. I also attest that the listed assessment and stated plan reflect my best clinical judgment today based on the combination of historical information, prior notes, and today's exam/ interactions. When time spent is documented, it refers only to time spent today by the signer, or if indicated, combined time spent today by collaborating physician/nurse practitioner. Robin Dominguez Oct 18, 2017 16:22
[2017-10-18 17:06] VITALS: BP 127/79; PULSE 66; RESP 16; TEMP 97.5; O2SAT 95
[2017-10-18 20:00] VITALS: BP 132/82; PULSE 60; RESP 18; TEMP 97; O2SAT 97
[2017-10-18] MEDS: traZODone HCL 100 MG TAB PO SCH (21:05)
[2017-10-18] MEDS: QUEtiapine FUMARATE 25 MG TAB PO SCH (21:05)
[2017-10-18] MEDS: DIVALPROEX SODIUM E.R. 500 MG TAB PO SCH (21:06)
[2017-10-19 04:00] VITALS: BP 128/67; PULSE 67; RESP 20; TEMP 98.6; O2SAT 98
[2017-10-19 08:29] VITALS: BP 103/62; PULSE 63; RESP 18; TEMP 97.5; O2SAT 94
[2017-10-19] MEDS: SODIUM CHLORIDE 0.9% FLUSH 10 ML FLUSH IV FLUSH SCH ×2 (09:00→23:13)
[2017-10-19] MEDS: levETIRAcetam 500 MG TAB PO SCH ×2 (10:47→23:13)
[2017-10-19] MEDS: SERTRALINE HCL 100 MG TAB PO SCH (10:47)
[2017-10-19] MEDS: LACTULOSE SYRUP 20 GM/30 ML CUP PO SCH ×2 (10:48→23:14)
[2017-10-19] MEDS: MULTIVITAMIN TAB PO SCH (10:48)
[2017-10-19] MEDS: DOCUSATE SODIUM 50 MG/SENNA 8.6 MG TAB PO SCH ×2 (10:48→23:14)
--- NOTE | 2017-10-19 11:22 | HHI.PR ---
Subjective Remarks in no acute distress. clinically the same. no change. Objective Vitals Vital Signs Date Time Temp Pulse Resp B/P (MAP) Pulse Ox O2 Delivery O2 Flow Rate FiO2 10/19/17 08:29 97.5 63 18 103/62 (76) 94 10/19/17 04:00 98.6 67 20 128/67 (87) 98 10/18/17 20:00 97.0 60 18 132/82 (99) 97 10/18/17 17:06 97.5 66 16 127/79 (95) 95 10/18/17 12:12 97.6 59 17 125/73 (90) 97 I/O 10/18/17 10/18/17 10/18/17 10/19/17 10/19/17 10/19/17 07:00 15:00 23:00 07:00 15:00 23:00 Intake Total 480 ml 360 ml Balance 480 ml 360 ml Intake Oral 480 ml 360 ml # Voids 4 2 Imaging Last Impressions Wrist MRI 10/05/17 0000 Signed Impressions: Service Date/Time: Thursday, October 05, 2017 12:00 - CONCLUSION: 1. No evidence of osteomyelitis. 2. Effusion in the proximal carpal row and in the radiocarpal joint. Fermin Duggan MD Upper Extremity Ultrasound 10/03/17 0000 Signed Impressions: Service Date/Time: Monday, October 02, 2017 14:57 - CONCLUSION: 1. Negative for deep venous thrombosis right upper extremity. Fermin Duggan MD Wrist X-Ray 10/02/17 0000 Signed Impressions: Service Date/Time: Monday, October 02, 2017 10:18 - CONCLUSION: Unremarkable exam. No significant change compared to the prior study. Wade Butler MD Renal Ultrasound 09/24/17 0000 Signed Impressions: Service Date/Time: Sunday, September 24, 2017 09:53 - CONCLUSION: Negative for stone or obstruction. Silvestre Iniguez MD FACR Head CT 08/28/17 0000 Signed Impressions: Service Date/Time: Monday, August 28, 2017 06:05 - CONCLUSION: 1. No acute intracranial hemorrhage. 2. Stable diffuse bilateral cortical atrophy. 3. No significant change compared to the prior exam. Wade Butler MD Cervical Spine CT 08/28/17 0000 Signed Impressions: Service Date/Time: Monday, August 28, 2017 06:08 - CONCLUSION: 1. No acute bony fracture. 2. Stable diffuse primary degenerative changes involving the cervical spine. 3. No new or significant changes. Wade Butler MD Objective Remarks GENERAL: This is a well-nourished, well-developed patient, in no apparent distress. CARDIOVASCULAR: Regular rate and regular rhythm without murmurs, gallops, or rubs. RESPIRATORY: Clear to auscultation. Breath sounds equal bilaterally. No wheezes , rales, or rhonchi. GASTROINTESTINAL: Abdomen soft, non-tender, nondistended. Normal, active bowel sounds MUSCULOSKELETAL: Extremities without clubbing, cyanosis, or edema. NEURO: awake and alert Procedures None Medications and IVs Inpatient Medications Acetaminophen (Tylenol) 650 mg Q4H PRN PO FEVER Last administered on 10/13/17 20:33; Start 09/23/17 at 09:45 Acetaminophen/ Hydrocodone Bitart ([place] 5-325 Mg) 1 tab Q6H PRN PO pain 1-5 Last administered on 10/15/17 02:41; Start 10/02/17 at 08:30 Albuterol Sulfate (Albuterol Neb) 1.25 mg Q6HR NEB NEB Last administered on 21:46; Start 08/30/17 at 11:15; Stop 09/03/17 at 11:14; Status DC Bisacodyl (Dulcolax Supp) 10 mg DAILY PRN RECTAL SEVERE CONSITIPATION; Start at 17:00 Clonidine (Catapres) 0.1 mg Q6H PRN PO SBP> OR = 170, DBP> OR = 100 Last administered on 09/09/17 16:13; Start 08/29/17 at 18:30 Diphenhydramine HCl (Benadryl Inj) 25 mg ONCE ONCE IM Last administered on 02:43; Start 08/28/17 at 02:30; Stop 08/28/17 at 02:31; Status DC Divalproex Sodium (Depakote Er) 1,000 mg HS PO Last administered on 10/18/17 21 :06; Start 08/28/17 at 21:00 Enoxaparin Sodium (Lovenox Inj) 30 mg Q24H SQ Last administered on 10/18/17at 11: 07; Start 09/25/17 at 12:00 Haloperidol Lactate (Haldol Inj) 2 mg ONCE ONCE IM Last administered on at 13:50; Start 08/28/17 at 13:30; Stop 08/28/17 at 13:31; Status DC Heparin Sodium (Porcine) (Heparin Inj) 5,000 units Q12H SQ Last administered on 09/23/17at 06:14; Start 08/28/17 at 18:00; Stop 09/25/17 at 10:57; Status DC Hydroxyzine HCl (Atarax) 50 mg Q6HR PRN PO ANXIETY Last administered on 08:12; Start 08/28/17 at 17:15 Lactulose (Lactulose Liq) 30 ml DAILY PRN PO SEVERE CONSITIPATION; Start at 17:00 Levetriacetam (Keppra) 1,500 mg Q12HR PO Last administered on 10/19/17at 10:47; Start 08/28/17 at 21:00 Levofloxacin (Levaquin) 500 mg DAILY PO Last administered on 10/14/17 09:08; Start 09/26/17 at 09:00; Stop 10/14/17 at 09:24; Status DC Levofloxacin/ Dextrose 100 ml @ 100 mls/hr Q24H IV Last administered on at 14:26; Start 09/23/17 at 15:00; Stop 09/25/17 at 18:19; Status DC Lorazepam (Ativan Inj) 2 mg ONCE ONCE IM Last administered on 08/28/17at 05:48 ; Start 08/28/17 at 05:45; Stop 08/28/17 at 05:46; Status DC Magnesium Hydroxide (Milk Of Magnesia Liq) 30 ml Q12H PRN PO Mild constipation Last administered on 10/12/17at 20:39; Start 08/28/17 at 17:00 Multivitamins (Theragran) 1 tab DAILY PO Last administered on 10/19/17at 10:48; Start 10/08/17 at 09:00 Naloxone HCl (Narcan Inj) 0.4 mg UNSCH PRN IV PUSH SEE LABEL COMMENTS; Start at 17:00 Ondansetron HCl (Zofran Inj) 4 mg Q6H PRN IVP NAUSEA OR VOMITING; Start at 17:00 Phenazopyridine HCl (Pyridium) 200 mg Q8HR PO Last administered on 09/25/17at 05 :54; Start 09/23/17 at 14:15; Stop 09/25/17 at 11:01; Status DC Potassium Chloride/Dextrose/ Sod Cl 1,000 ml @ 75 mls/hr [id number] IV Last administered on 09/25/17at 05:58; Start 09/23/17 at 14:15; Stop 09/25/17 at 10:57 ; Status DC Potassium Bicarb/ Potassium Chloride (K-Lyte Cl Eff) 50 meq ONCE ONCE PO Last administered on 08/28/17at 18:09; Start 08/28/17 at 17:00; Stop 08/28/17 at 17:24; Status DC Potassium Chloride 100 ml @ 100 mls/hr Q1H IV Last administered on 08/30/17at 12:45; Start 08/30/17 at 09:45; Stop 08/30/17 at 13:44; Status DC Potassium Chloride (KCl) 30 meq ONCE ONCE PO Last administered on 08/30/17at 10 :31; Start 08/30/17 at 09:45; Stop 08/30/17 at 09:55; Status DC Prednisone (Deltasone) 30 mg DAILY PO Last administered on 09/21/17at 10:00; Start 09/10/17 at 09:00; Stop 09/21/17 at 11:50; Status DC Quetiapine Fumarate (SEROquel) 75 mg HS PO Last administered on 10/18/17at 21:05 ; Start 08/29/17 at 21:00 Senna/Docusate Sodium (Leanne-Colace) 1 tab BID PO Last administered on 10/19/17at 10:48; Start 08/28/17 at 21:00 Sennosides (Senokot) 17.2 mg Q12H PRN PO Moderate constipation; Start 08/28/17 at 17:00 Sertraline HCl (Zoloft) 200 mg DAILY PO Last administered on 10/19/17at 10:47; Start 08/29/17 at 09:00 Sodium Chloride 1,000 ml @ 75 mls/hr [id number] IV Last administered on 10/15/17at 02:40; Start 10/12/17 at 09:45; Stop 10/15/17 at 10:55; Status DC Sodium Chloride (NS Flush) 2 ml BID IV FLUSH Last administered on 10/19/17at 09: 00; Start 08/28/17 at 21:00 Tamsulosin HCl (Flomax) 0.4 mg DAILY PO Last administered on 10/12/17at 08:37; Start 09/24/17 at 10:15; Status Future Hold Tramadol HCl (Ultram) 50 mg Q8H PRN PO pain >5 Last administered on 10/17/17at 11 :27; Start 09/27/17 at 21:45 Trazodone HCl (Desyrel) 200 mg HS PO Last administered on 10/18/17at 21:05; Start 08/28/17 at 21:00 A/P Problem List: (1) Encephalopathy ICD Code: G93.40 - Encephalopathy Status: Acute (2) Alcohol-induced mood disorder ICD Code: F10.94 - Alcohol use, unspecified with alcohol-induced mood disorder Status: Acute (3) Debility ICD Code: R53.81 - Other malaise (4) COPD (chronic obstructive pulmonary disease) ICD Code: J44.9 - COPD (chronic obstructive pulmonary disease) Status: Chronic (5) PTSD (post-traumatic stress disorder) ICD Code: F43.10 - Post-traumatic stress disorder, unspecified Assessment and Plan Anorexia - consulted dietitian for calorie count. calorie count shows that the patient doesn't get enough calories- however the patient is refusing PEG placement. - continue with supplements. UTI growing E. Coli Elevated PSA - treated with Levaquin. -Urology consulted for elevated PSA, recommendations appreciated -continue Flomax, repeat UA and PSA on an outpatient basis. Aggressive behavior, encephalopathy: improving the Avelar act was lifted by psychiatry Continue Seroquel, sertraline. Currently on lactulose. Right wrist pain and swelling, improving. X ray reviewed no fracture. US negative. Pain control with norco as need pr pain scale. orthopedic doctor for consulted recommended MRI. MRI 10/05/17 of right wrist reviewed negative. continue with pain control. Thrombocytopenia: -Chronic, at baseline. PLTs stable, H&H stable with no reported bleeding. Seizure disorder: -Continue Depakote, Keppra. Seizure precautions. PTSD, personality disorder: -Appreciate psychiatry recommendations. -Continue Seroquel. Trazodone daily at bedtime. COPD: -s/p Prednisone taper, currently stable on room air. Generalized weakness: - Patient has chronic debility likely secondary to chronic alcohol abuse. - Continue PT DVT prophylaxis: Lovenox. Discharge Planning dc planning in progress. Rob Kwon MD Oct 19, 2017 11:22
[2017-10-19 12:00] VITALS: BP 107/64; PULSE 62; RESP 18; TEMP 98.4; O2SAT 96
[2017-10-19] MEDS: ENOXAPARIN SODIUM 30 MG/0.3 ML SYRINGE SQ SCH (12:00)
[2017-10-19 16:00] VITALS: BP 115/62; PULSE 61; RESP 18; TEMP 98.2; O2SAT 100
[2017-10-19 22:07] VITALS: BP 116/70; PULSE 73; RESP 18; TEMP 98.1; O2SAT 95
[2017-10-19] MEDS: traZODone HCL 100 MG TAB PO SCH (23:14)
[2017-10-19] MEDS: DIVALPROEX SODIUM E.R. 500 MG TAB PO SCH (23:14)
[2017-10-19] MEDS: QUEtiapine FUMARATE 25 MG TAB PO SCH (23:14)
[2017-10-20] VITALS (7 sets, daily range): BP systolic 89–109; BP diastolic 56–72; PULSE 58–78; RESP 16–18; TEMP 97.2–98.2; O2SAT 90–96
[2017-10-20] MEDS: SODIUM CHLORIDE 0.9% FLUSH 10 ML FLUSH IV FLUSH SCH ×2 (09:39→21:10)
[2017-10-20] MEDS: LACTULOSE SYRUP 20 GM/30 ML CUP PO SCH ×2 (09:39→21:12)
[2017-10-20] MEDS: SERTRALINE HCL 100 MG TAB PO SCH (09:40)
[2017-10-20] MEDS: levETIRAcetam 500 MG TAB PO SCH ×2 (09:40→21:11)
[2017-10-20] MEDS: DOCUSATE SODIUM 50 MG/SENNA 8.6 MG TAB PO SCH ×2 (09:41→21:12)
[2017-10-20] MEDS: MULTIVITAMIN TAB PO SCH (09:41)
[2017-10-20] MEDS: ACETAMINOPHEN/HYDROcodone 325 MG/5 MG TAB PO PRN ×2 (09:43→21:12)
--- NOTE | 2017-10-20 11:02 | HHI.PR ---
Subjective Remarks in no acute distress. no change clinically. Objective Vitals Vital Signs Date Time Temp Pulse Resp B/P (MAP) Pulse Ox O2 Delivery O2 Flow Rate FiO2 10/20/17 09:50 97.2 62 16 94/70 (78) 94 10/20/17 08:32 97.5 58 18 89/56 (67) 90 10/20/17 06:22 98.2 66 18 100/67 (78) 95 10/20/17 01:53 97.4 78 18 105/69 (81) 94 10/19/17 22:07 98.1 73 18 116/70 (85) 95 10/19/17 16:00 98.2 61 18 115/62 (79) 100 10/19/17 12:00 98.4 62 18 107/64 (78) 96 I/O 10/19/17 10/19/17 10/19/17 10/20/17 10/20/17 10/20/17 07:00 15:00 23:00 07:00 15:00 23:00 Intake Total 480 ml Balance 480 ml Intake Oral 480 ml # Voids 3 1 2 Imaging Last Impressions Wrist MRI 10/05/17 0000 Signed Impressions: Service Date/Time: Thursday, October 05, 2017 12:00 - CONCLUSION: 1. No evidence of osteomyelitis. 2. Effusion in the proximal carpal row and in the radiocarpal joint. Fermin Duggan MD Upper Extremity Ultrasound 10/03/17 0000 Signed Impressions: Service Date/Time: Monday, October 02, 2017 14:57 - CONCLUSION: 1. Negative for deep venous thrombosis right upper extremity. Fermin Duggan MD Wrist X-Ray 10/02/17 0000 Signed Impressions: Service Date/Time: Monday, October 02, 2017 10:18 - CONCLUSION: Unremarkable exam. No significant change compared to the prior study. Wade Butler MD Renal Ultrasound 09/24/17 0000 Signed Impressions: Service Date/Time: Sunday, September 24, 2017 09:53 - CONCLUSION: Negative for stone or obstruction. Silvestre Iniguez MD FACR Head CT 08/28/17 0000 Signed Impressions: Service Date/Time: Monday, August 28, 2017 06:05 - CONCLUSION: 1. No acute intracranial hemorrhage. 2. Stable diffuse bilateral cortical atrophy. 3. No significant change compared to the prior exam. Wade Butler MD Cervical Spine CT 08/28/17 0000 Signed Impressions: Service Date/Time: Monday, August 28, 2017 06:08 - CONCLUSION: 1. No acute bony fracture. 2. Stable diffuse primary degenerative changes involving the cervical spine. 3. No new or significant changes. Wade Butler MD Objective Remarks GENERAL: This is a well-nourished, well-developed patient, in no apparent distress. CARDIOVASCULAR: Regular rate and regular rhythm without murmurs, gallops, or rubs. RESPIRATORY: Clear to auscultation. Breath sounds equal bilaterally. No wheezes , rales, or rhonchi. GASTROINTESTINAL: Abdomen soft, non-tender, nondistended. Normal, active bowel sounds MUSCULOSKELETAL: Extremities without clubbing, cyanosis, or edema. NEURO: awake and alert Procedures None Medications and IVs Inpatient Medications Acetaminophen (Tylenol) 650 mg Q4H PRN PO FEVER Last administered on 10/13/17at 20:33; Start 09/23/17 at 09:45 Acetaminophen/ Hydrocodone Bitart ([place] 5-325 Mg) 1 tab Q6H PRN PO pain 1-5 Last administered on 10/20/17at 09:43; Start 10/02/17 at 08:30 Albuterol Sulfate (Albuterol Neb) 1.25 mg Q6HR NEB NEB Last administered on at 21:46; Start 08/30/17 at 11:15; Stop 09/03/17 at 11:14; Status DC Bisacodyl (Dulcolax Supp) 10 mg DAILY PRN RECTAL SEVERE CONSITIPATION; Start at 17:00 Clonidine (Catapres) 0.1 mg Q6H PRN PO SBP> OR = 170, DBP> OR = 100 Last administered on 09/09/17at 16:13; Start 08/29/17 at 18:30 Diphenhydramine HCl (Benadryl Inj) 25 mg ONCE ONCE IM Last administered on at 02:43; Start 08/28/17 at 02:30; Stop 08/28/17 at 02:31; Status DC Divalproex Sodium (Depakote Er) 1,000 mg HS PO Last administered on 10/19/17 23 :14; Start 08/28/17 at 21:00 Enoxaparin Sodium (Lovenox Inj) 30 mg Q24H SQ Last administered on 10/19/17at 12: 00; Start 09/25/17 at 12:00 Haloperidol Lactate (Haldol Inj) 2 mg ONCE ONCE IM Last administered on at 13:50; Start 08/28/17 at 13:30; Stop 08/28/17 at 13:31; Status DC Heparin Sodium (Porcine) (Heparin Inj) 5,000 units Q12H SQ Last administered on 09/23/17 06:14; Start 08/28/17 at 18:00; Stop 09/25/17 at 10:57; Status DC Hydroxyzine HCl (Atarax) 50 mg Q6HR PRN PO ANXIETY Last administered on 08:12; Start 08/28/17 at 17:15 Lactulose (Lactulose Liq) 30 ml DAILY PRN PO SEVERE CONSITIPATION; Start at 17:00 Levetriacetam (Keppra) 1,500 mg Q12HR PO Last administered on 10/20/17 09:40; Start 08/28/17 at 21:00 Levofloxacin (Levaquin) 500 mg DAILY PO Last administered on 10/14/17 09:08; Start 09/26/17 at 09:00; Stop 10/14/17 at 09:24; Status DC Levofloxacin/ Dextrose 100 ml @ 100 mls/hr Q24H IV Last administered on 14:26; Start 09/23/17 at 15:00; Stop 09/25/17 at 18:19; Status DC Lorazepam (Ativan Inj) 2 mg ONCE ONCE IM Last administered on 08/28/17 05:48 ; Start 08/28/17 at 05:45; Stop 08/28/17 at 05:46; Status DC Magnesium Hydroxide (Milk Of Magnesia Liq) 30 ml Q12H PRN PO Mild constipation Last administered on 10/12/17 20:39; Start 08/28/17 at 17:00 Multivitamins (Theragran) 1 tab DAILY PO Last administered on 10/20/17 09:41; Start 10/08/17 at 09:00 Naloxone HCl (Narcan Inj) 0.4 mg UNSCH PRN IV PUSH SEE LABEL COMMENTS; Start at 17:00 Ondansetron HCl (Zofran Inj) 4 mg Q6H PRN IVP NAUSEA OR VOMITING; Start at 17:00 Phenazopyridine HCl (Pyridium) 200 mg Q8HR PO Last administered on 09/25/17at 05 :54; Start 09/23/17 at 14:15; Stop 09/25/17 at 11:01; Status DC Potassium Chloride/Dextrose/ Sod Cl 1,000 ml @ 75 mls/hr [id number] IV Last administered on 09/25/17at 05:58; Start 09/23/17 at 14:15; Stop 09/25/17 at 10:57 ; Status DC Potassium Bicarb/ Potassium Chloride (K-Lyte Cl Eff) 50 meq ONCE ONCE PO Last administered on 08/28/17at 18:09; Start 08/28/17 at 17:00; Stop 08/28/17 at 17:24; Status DC Potassium Chloride 100 ml @ 100 mls/hr Q1H IV Last administered on 08/30/17at 12:45; Start 08/30/17 at 09:45; Stop 08/30/17 at 13:44; Status DC Potassium Chloride (KCl) 30 meq ONCE ONCE PO Last administered on 08/30/17at 10 :31; Start 08/30/17 at 09:45; Stop 08/30/17 at 09:55; Status DC Prednisone (Deltasone) 30 mg DAILY PO Last administered on 09/21/17at 10:00; Start 09/10/17 at 09:00; Stop 09/21/17 at 11:50; Status DC Quetiapine Fumarate (SEROquel) 75 mg HS PO Last administered on 10/19/17at 23:14 ; Start 08/29/17 at 21:00 Senna/Docusate Sodium (Leanne-Colace) 1 tab BID PO Last administered on 10/20/17at 09:41; Start 08/28/17 at 21:00 Sennosides (Senokot) 17.2 mg Q12H PRN PO Moderate constipation; Start 08/28/17 at 17:00 Sertraline HCl (Zoloft) 200 mg DAILY PO Last administered on 10/20/17 09:40; Start 08/29/17 at 09:00 Sodium Chloride 1,000 ml @ 75 mls/hr [id number] IV Last administered on 10/15/17 02:40; Start 10/12/17 at 09:45; Stop 10/15/17 at 10:55; Status DC Sodium Chloride (NS Flush) 2 ml BID IV FLUSH Last administered on 10/20/17at 09: 39; Start 08/28/17 at 21:00 Tamsulosin HCl (Flomax) 0.4 mg DAILY PO Last administered on 10/12/17at 08:37; Start 09/24/17 at 10:15; Status Future Hold Tramadol HCl (Ultram) 50 mg Q8H PRN PO pain >5 Last administered on 10/17/17 11 :27; Start 09/27/17 at 21:45 Trazodone HCl (Desyrel) 200 mg HS PO Last administered on 10/19/17at 23:14; Start 08/28/17 at 21:00 A/P Problem List: (1) Encephalopathy ICD Code: G93.40 - Encephalopathy Status: Acute (2) Alcohol-induced mood disorder ICD Code: F10.94 - Alcohol use, unspecified with alcohol-induced mood disorder Status: Acute (3) Debility ICD Code: R53.81 - Other malaise (4) COPD (chronic obstructive pulmonary disease) ICD Code: J44.9 - COPD (chronic obstructive pulmonary disease) Status: Chronic (5) PTSD (post-traumatic stress disorder) ICD Code: F43.10 - Post-traumatic stress disorder, unspecified Assessment and Plan Anorexia - consulted dietitian for calorie count. calorie count shows that the patient doesn't get enough calories- however the patient is refusing PEG placement. - continue with supplements. UTI growing E. Coli Elevated PSA - treated with Levaquin. -Urology consulted for elevated PSA, recommendations appreciated -continue Flomax, repeat UA and PSA on an outpatient basis. Aggressive behavior, encephalopathy: improving the Avelar act was lifted by psychiatry Continue Seroquel, sertraline. Currently on lactulose. Right wrist pain and swelling, improving. X ray reviewed no fracture. US negative. Pain control with norco as need pr pain scale. orthopedic doctor for consulted recommended MRI. MRI 10/05/17 of right wrist reviewed negative. continue with pain control. Thrombocytopenia: -Chronic, at baseline. PLTs stable, H&H stable with no reported bleeding. Seizure disorder: -Continue David Luther. Seizure precautions. PTSD, personality disorder: -Appreciate psychiatry recommendations. -Continue Seroquel. Trazodone daily at bedtime. COPD: -s/p Prednisone taper, currently stable on room air. Generalized weakness: - Patient has chronic debility likely secondary to chronic alcohol abuse. - Continue PT DVT prophylaxis: Lovenox. Discharge Planning dc planning in progress. Rob Kwon MD Oct 20, 2017 11:02
[2017-10-20] MEDS: ENOXAPARIN SODIUM 30 MG/0.3 ML SYRINGE SQ SCH (12:07)
--- NOTE | 2017-10-20 16:24 | HHI.HCPN ---
Reason for visit a. To assist with evaluation and management of symptoms including: Pain, decreased oral intake b. To assist medical decision maker(s) with: better understanding of current medical conditions; weighing benefits/burdens of medical treatment options; making medical treatment decisions. Subjective/Interval History Patient seen and examined in his room in the presence of his significant other rEika Mcadams. Patient is sleeping ,easily arousable. Patient denies pain at this time. Patient is afebrile, O2 saturation low to mid 90s on room air. No recent laboratory workup or imaging. Addressed completion of health care surrogate form and patient stated that he would want his significant other Anna Mcadams to be his healthcare surrogate. Patient agreed to sign the healthcare surrogate form today since Erika Mcadams was present. Patient stated that he will sign the community DNR another time since he is sleepy and tired today. Erika Mcadams provided with a copy of designation of healthcare surrogate form. Erika Mcadams appropriately tearful as she talks about difficulty in finding placement for patient. She mentions that she is not able to care for him but in a worst-case scenario she would want to take him home with her. She understands that this may fatuma patient's deterioration and decline. She wishes patient`s sons would come to visit with him, even though they have been estranged from him for a long time. Provided supportive listening as patient`s significant other talks about patient`s trajectory of decline and how he has been a great person in her life. . Family/friend interactions Anna Mcadams- significant other at bedside. . Advance Directives Living Will: Never completed Health Care Surrogate: Never completed Durable Power of Cremator: Never completed Advance Directive Specifics Health Care Surrogate(s): Health care Surrogate -Significant other-Anna McadamsRclpmgvl-[phone] . Objective Vital Signs Date Time Temp Pulse Resp B/P (MAP) Pulse Ox O2 Delivery O2 Flow Rate FiO2 10/20/17 12:29 98.1 63 18 101/58 (72) 90 10/20/17 09:50 97.2 62 16 94/70 (78) 94 10/20/17 08:32 97.5 58 18 89/56 (67) 90 10/20/17 06:22 98.2 66 18 100/67 (78) 95 10/20/17 01:53 97.4 78 18 105/69 (81) 94 10/19/17 22:07 98.1 73 18 116/70 (85) 95 Intake & Output 10/20/17 10/20/17 07:00 19:00 # Voids 3 Physical Exam CONSTITUTIONAL/GENERAL: This is an adequately nourished patient, in no apparent distress. Denies pain TUBES/LINES/DRAINS:PIV SKIN: No jaundice, rashes, or lesions. Ecchymoses on upper extremities. No wounds seen anteriorly. Skin temperature appropriate. Not diaphoretic. HEAD: Atraumatic. Normocephalic. EYES: Pupils equal and round and reactive. Extraocular motions intact. No scleral icterus. No injection or drainage. Fundi not examined. ENT: Hard of Hearing.Nose without bleeding or purulent drainage. NECK: Trachea midline. Supple, nontender. CARDIOVASCULAR: Regular rate and rhythm without murmurs, gallops, or rubs. No JVD. Peripheral pulses symmetric. RESPIRATORY/CHEST: Symmetric, unlabored respirations. Clear to auscultation. Breath sounds equal bilaterally. No wheezes, rales, or rhonchi. GASTROINTESTINAL: Abdomen soft, non-tender, nondistended. No guarding. Bowel sounds present. GENITOURINARY: Without palpable bladder distension. MUSCULOSKELETAL: Extremities without clubbing, cyanosis, or edema. No joint tenderness or effusion noted. No calf tenderness. No mottling or clubbing. NEUROLOGICAL: Sleeping but easily arousable. Motor and sensory grossly within normal limits. Follows commands. Moves all extremities. PSYCHIATRIC: No obvious anxiety/depression. no apparent hallucinations or other psychotic thought process. . Diagnostic Tests Imaging Last Impressions Wrist MRI 10/05/17 0000 Signed Impressions: Service Date/Time: Thursday, October 05, 2017 12:00 - CONCLUSION: 1. No evidence of osteomyelitis. 2. Effusion in the proximal carpal row and in the radiocarpal joint. Fermin Duggan MD Upper Extremity Ultrasound 10/03/17 0000 Signed Impressions: Service Date/Time: Monday, October 02, 2017 14:57 - CONCLUSION: 1. Negative for deep venous thrombosis right upper extremity. Fermin Duggan MD Wrist X-Ray 10/02/17 0000 Signed Impressions: Service Date/Time: Monday, October 02, 2017 10:18 - CONCLUSION: Unremarkable exam. No significant change compared to the prior study. Wade Butler MD Renal Ultrasound 09/24/17 0000 Signed Impressions: Service Date/Time: Sunday, September 24, 2017 09:53 - CONCLUSION: Negative for stone or obstruction. Silvestre Iniguez MD FACR Head CT 08/28/17 0000 Signed Impressions: Service Date/Time: Monday, August 28, 2017 06:05 - CONCLUSION: 1. No acute intracranial hemorrhage. 2. Stable diffuse bilateral cortical atrophy. 3. No significant change compared to the prior exam. Wade Butler MD Cervical Spine CT 08/28/17 0000 Signed Impressions: Service Date/Time: Monday, August 28, 2017 06:08 - CONCLUSION: 1. No acute bony fracture. 2. Stable diffuse primary degenerative changes involving the cervical spine. 3. No new or significant changes. Wade Butler MD Assessment and Plan Disease Oriented Problem List: (1) Alcohol-induced mood disorder (2) PTSD (post-traumatic stress disorder) (3) Bipolar disorder (4) COPD (chronic obstructive pulmonary disease) Symptom Scale: (1) Decreased oral intake 0-10 Scale: Unable to quantify (2) Pain 0-10 Scale: Unable to quantify Comment: Multifactorial. c/o pain to Right shoulder and wrist. Wrist MRI on revealed effusion in the proximal carpal row and in the radiocarpal joint and no osteomyelitis. . Pertinent Non-Medical Issues Psychosocial:Patient was born and raised in [place]. Patient served in the [employer] during the [place] war for 6 years. He moved to [place] in the 1970s. Patient was and once. He has 2 sons whom he states he has not spoken to in about 10 years. Patient stated that the last he heard from them was about 10 years ago and at that time they were in [place], [place]. 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 Important Contacts Health care Surrogate -Significant other-Anna McadamsXkhhkqle-[phone] Son-Pardeep Iomeol-[phone] Son-Deon Heath Marker- Father- Edy Marker [phone] [facility] on Aging- Payee- Dianelys Chambers - [phone] . Prognosis Mr. Valenzuela is a 62-year-old with a past medical history of bipolar disorder, seizure disorder, gout, chronic low back pain, COPD, hypertension, chronic alcoholic pancreatitis, hepatitis B and C, dyslipidemia, and alcoholism. Patient was brought to the ER from an [facility] by EMS on August 28, 2017 to be evaluated for altered mental status, behavioral disturbances and a witnessed fall. Clinical course complicated with decreased oral intake, hypotension, urinary tract infection. . Code Status: No Code Plan PLAN: Legal decision maker: Patient is capable of participating in making his own medical decisions. In the event that he is incapacitated, patient designated his significant other Erika Mcadams to serve as his HCS. Goals: Aggressive CODE STATUS: No Code DNR Patient signed HCS form today SYMPTOMS: * Pain: Multifactorial. Pain can be from bedbound, and other source for pain could be IV. Patient also had complaints of pain to his right wrist. Wrist MRI on 10/05 revealed effusion in the proximal carpal row and in the radiocarpal joint and no osteomyelitis. Pain currently managed with Hydrocodone/ acetaminophen 5/325 and Tramadol. His last hydrocodone dose was given on 10/15/17 and last tramadol was administered on 10/17/17. No recommendations at this time. * Decreased oral intake: Patient has been refusing his meals. Patient stated that the day he did not eat he was nauseated but now he has started to eat and drink. [employer] consulted. Caloric count initiated and completed. Per [employer] Grinder patient is not meeting his caloric intake, recommended liberalizing diet from heart healthy diet restrictions.Patent gets Boost TID with meals. Patient is on Multivitamins 1 tab daily. Maintenance IVF discontinued.Per bedside RN patient has been eating at least 50% -100% of his meals. Palliative care will continue to follow the patient during hospital course as condition evolves, to assist patient/decision-maker with understanding of their medical conditions, weighing benefits/burdens of treatment options, for clarification of goals of treatment. Additionally will assist with any symptoms of palliative concern Attestation To help prompt me to consider important information that might be impacting today's encounter and assessment, information from prior notes written by myself or my colleagues may have been "brought forward" into today's note. My signature on this note, however, is an attestation that I personally performed the exam, history, and/or decision-making noted today, and, unless otherwise indicated, the interactions with patient, family, and staff as well as the review of records all occurred today. I also attest that the listed assessment and stated plan reflect my best clinical judgment today based on the combination of historical information, prior notes, and today's exam/ interactions. When time spent is documented, it refers only to time spent today by the signer, or if indicated, combined time spent today by collaborating physician/nurse practitioner. Robin Dominguez Oct 20, 2017 16:24
[2017-10-20] MEDS: QUEtiapine FUMARATE 25 MG TAB PO SCH (21:11)
[2017-10-20] MEDS: DIVALPROEX SODIUM E.R. 500 MG TAB PO SCH (21:11)
[2017-10-20] MEDS: traZODone HCL 100 MG TAB PO SCH (21:11)
[2017-10-21] VITALS: BP 108/71; PULSE 103; RESP 19; TEMP 97.8; O2SAT 94
[2017-10-21 04:00] VITALS: BP 129/74; PULSE 70; RESP 17; TEMP 98.2; O2SAT 94
[2017-10-21] MEDS: levETIRAcetam 500 MG TAB PO SCH ×2 (08:00→22:59)
[2017-10-21] MEDS: ACETAMINOPHEN/HYDROcodone 325 MG/5 MG TAB PO PRN ×2 (08:00→17:55)
[2017-10-21] MEDS: MULTIVITAMIN TAB PO SCH (08:00)
[2017-10-21] MEDS: SODIUM CHLORIDE 0.9% FLUSH 10 ML FLUSH IV FLUSH SCH ×2 (08:01→23:00)
[2017-10-21] MEDS: DOCUSATE SODIUM 50 MG/SENNA 8.6 MG TAB PO SCH ×2 (08:01→23:00)
[2017-10-21] MEDS: SERTRALINE HCL 100 MG TAB PO SCH (08:01)
[2017-10-21] MEDS: LACTULOSE SYRUP 20 GM/30 ML CUP PO SCH ×2 (08:01→22:59)
[2017-10-21 08:24] VITALS: BP 96/59; PULSE 61; RESP 20; TEMP 98.2; O2SAT 95
--- NOTE | 2017-10-21 11:33 | HHI.PR ---
Subjective Remarks in no distress. denies pain. d/w the RN and no acute issues over night. Objective Vitals Vital Signs Date Time Temp Pulse Resp B/P (MAP) Pulse Ox O2 Delivery O2 Flow Rate FiO2 10/21/17 08:24 98.2 61 20 96/59 (71) 95 10/21/17 04:00 98.2 70 17 129/74 (92) 94 10/21/17 00:00 97.8 103 19 108/71 (83) 94 10/20/17 20:00 97.9 62 17 109/72 (84) 96 10/20/17 16:38 98.2 60 18 97/60 (72) 91 10/20/17 12:29 98.1 63 18 101/58 (72) 90 I/O 10/20/17 10/20/17 10/20/17 10/21/17 10/21/17 10/21/17 07:00 15:00 23:00 07:00 15:00 23:00 Intake Total 240 ml Balance 240 ml Intake Oral 240 ml # Voids 2 2 Imaging Last Impressions Wrist MRI 10/05/17 0000 Signed Impressions: Service Date/Time: Thursday, October 05, 2017 12:00 - CONCLUSION: 1. No evidence of osteomyelitis. 2. Effusion in the proximal carpal row and in the radiocarpal joint. Fermin Duggan MD Upper Extremity Ultrasound 10/03/17 0000 Signed Impressions: Service Date/Time: Monday, October 02, 2017 14:57 - CONCLUSION: 1. Negative for deep venous thrombosis right upper extremity. Fermin Duggan MD Wrist X-Ray 10/02/17 0000 Signed Impressions: Service Date/Time: Monday, October 02, 2017 10:18 - CONCLUSION: Unremarkable exam. No significant change compared to the prior study. Wade Butler MD Renal Ultrasound 09/24/17 0000 Signed Impressions: Service Date/Time: Sunday, September 24, 2017 09:53 - CONCLUSION: Negative for stone or obstruction. Silvestre Iniguez MD FACR Head CT 08/28/17 0000 Signed Impressions: Service Date/Time: Monday, August 28, 2017 06:05 - CONCLUSION: 1. No acute intracranial hemorrhage. 2. Stable diffuse bilateral cortical atrophy. 3. No significant change compared to the prior exam. Wade Butler MD Cervical Spine CT 08/28/17 0000 Signed Impressions: Service Date/Time: Monday, August 28, 2017 06:08 - CONCLUSION: 1. No acute bony fracture. 2. Stable diffuse primary degenerative changes involving the cervical spine. 3. No new or significant changes. Wade Butler MD Objective Remarks GENERAL: This is a well-nourished, well-developed patient, in no apparent distress. CARDIOVASCULAR: Regular rate and regular rhythm without murmurs, gallops, or rubs. RESPIRATORY: Clear to auscultation. Breath sounds equal bilaterally. No wheezes , rales, or rhonchi. GASTROINTESTINAL: Abdomen soft, non-tender, nondistended. Normal, active bowel sounds MUSCULOSKELETAL: Extremities without clubbing, cyanosis, or edema. NEURO: awake and alert Procedures None Medications and IVs Inpatient Medications Acetaminophen (Tylenol) 650 mg Q4H PRN PO FEVER Last administered on 10/13/17at 20:33; Start 09/23/17 at 09:45 Acetaminophen/ Hydrocodone Bitart ([place] 5-325 Mg) 1 tab Q6H PRN PO pain 1-5 Last administered on 10/21/17 08:00; Start 10/02/17 at 08:30 Albuterol Sulfate (Albuterol Neb) 1.25 mg Q6HR NEB NEB Last administered on at 21:46; Start 08/30/17 at 11:15; Stop 09/03/17 at 11:14; Status DC Bisacodyl (Dulcolax Supp) 10 mg DAILY PRN RECTAL SEVERE CONSITIPATION; Start at 17:00 Clonidine (Catapres) 0.1 mg Q6H PRN PO SBP> OR = 170, DBP> OR = 100 Last administered on 09/09/17 16:13; Start 08/29/17 at 18:30 Diphenhydramine HCl (Benadryl Inj) 25 mg ONCE ONCE IM Last administered on at 02:43; Start 08/28/17 at 02:30; Stop 08/28/17 at 02:31; Status DC Divalproex Sodium (Depakote Er) 1,000 mg HS PO Last administered on 10/20/17at 21 :11; Start 08/28/17 at 21:00 Enoxaparin Sodium (Lovenox Inj) 30 mg Q24H SQ Last administered on 10/20/17 12: 07; Start 09/25/17 at 12:00 Haloperidol Lactate (Haldol Inj) 2 mg ONCE ONCE IM Last administered on at 13:50; Start 08/28/17 at 13:30; Stop 08/28/17 at 13:31; Status DC Heparin Sodium (Porcine) (Heparin Inj) 5,000 units Q12H SQ Last administered on 09/23/17 06:14; Start 08/28/17 at 18:00; Stop 09/25/17 at 10:57; Status DC Hydroxyzine HCl (Atarax) 50 mg Q6HR PRN PO ANXIETY Last administered on at 08:12; Start 08/28/17 at 17:15 Lactulose (Lactulose Liq) 30 ml DAILY PRN PO SEVERE CONSITIPATION; Start at 17:00 Levetriacetam (Keppra) 1,500 mg Q12HR PO Last administered on 10/21/17 08:00; Start 08/28/17 at 21:00 Levofloxacin (Levaquin) 500 mg DAILY PO Last administered on 10/14/17 09:08; Start 09/26/17 at 09:00; Stop 10/14/17 at 09:24; Status DC Levofloxacin/ Dextrose 100 ml @ 100 mls/hr Q24H IV Last administered on 14:26; Start 09/23/17 at 15:00; Stop 09/25/17 at 18:19; Status DC Lorazepam (Ativan Inj) 2 mg ONCE ONCE IM Last administered on 08/28/17at 05:48 ; Start 08/28/17 at 05:45; Stop 08/28/17 at 05:46; Status DC Magnesium Hydroxide (Milk Of Magnesia Liq) 30 ml Q12H PRN PO Mild constipation Last administered on 10/12/17at 20:39; Start 08/28/17 at 17:00 Multivitamins (Theragran) 1 tab DAILY PO Last administered on 10/21/17 08:00; Start 10/08/17 at 09:00 Naloxone HCl (Narcan Inj) 0.4 mg UNSCH PRN IV PUSH SEE LABEL COMMENTS; Start at 17:00 Ondansetron HCl (Zofran Inj) 4 mg Q6H PRN IVP NAUSEA OR VOMITING; Start at 17:00 Phenazopyridine HCl (Pyridium) 200 mg Q8HR PO Last administered on 09/25/17at 05 :54; Start 09/23/17 at 14:15; Stop 09/25/17 at 11:01; Status DC Potassium Chloride/Dextrose/ Sod Cl 1,000 ml @ 75 mls/hr [id number] IV Last administered on 09/25/17at 05:58; Start 09/23/17 at 14:15; Stop 09/25/17 at 10:57 ; Status DC Potassium Bicarb/ Potassium Chloride (K-Lyte Cl Eff) 50 meq ONCE ONCE PO Last administered on 08/28/17at 18:09; Start 08/28/17 at 17:00; Stop 08/28/17 at 17:24; Status DC Potassium Chloride 100 ml @ 100 mls/hr Q1H IV Last administered on 08/30/17at 12:45; Start 08/30/17 at 09:45; Stop 08/30/17 at 13:44; Status DC Potassium Chloride (KCl) 30 meq ONCE ONCE PO Last administered on 08/30/17at 10 :31; Start 08/30/17 at 09:45; Stop 08/30/17 at 09:55; Status DC Prednisone (Deltasone) 30 mg DAILY PO Last administered on 09/21/17at 10:00; Start 09/10/17 at 09:00; Stop 09/21/17 at 11:50; Status DC Quetiapine Fumarate (SEROquel) 75 mg HS PO Last administered on 10/20/17at 21:11 ; Start 08/29/17 at 21:00 Senna/Docusate Sodium (Leanne-Colace) 1 tab BID PO Last administered on 10/21/17at 08:01; Start 08/28/17 at 21:00 Sennosides (Senokot) 17.2 mg Q12H PRN PO Moderate constipation; Start 08/28/17 at 17:00 Sertraline HCl (Zoloft) 200 mg DAILY PO Last administered on 10/21/17 08:01; Start 08/29/17 at 09:00 Sodium Chloride 1,000 ml @ 75 mls/hr [id number] IV Last administered on 10/15/17at 02:40; Start 10/12/17 at 09:45; Stop 10/15/17 at 10:55; Status DC Sodium Chloride (NS Flush) 2 ml BID IV FLUSH Last administered on 10/21/17 08: 01; Start 08/28/17 at 21:00 Tamsulosin HCl (Flomax) 0.4 mg DAILY PO Last administered on 10/12/17at 08:37; Start 09/24/17 at 10:15; Status Future Hold Tramadol HCl (Ultram) 50 mg Q8H PRN PO pain >5 Last administered on 10/17/17 11 :27; Start 09/27/17 at 21:45 Trazodone HCl (Desyrel) 200 mg HS PO Last administered on 10/20/17at 21:11; Start 08/28/17 at 21:00 A/P Problem List: (1) Encephalopathy ICD Code: G93.40 - Encephalopathy Status: Acute (2) Alcohol-induced mood disorder ICD Code: F10.94 - Alcohol use, unspecified with alcohol-induced mood disorder Status: Acute (3) Debility ICD Code: R53.81 - Other malaise (4) COPD (chronic obstructive pulmonary disease) ICD Code: J44.9 - COPD (chronic obstructive pulmonary disease) Status: Chronic (5) PTSD (post-traumatic stress disorder) ICD Code: F43.10 - Post-traumatic stress disorder, unspecified Assessment and Plan Anorexia - consulted dietitian for calorie count. calorie count shows that the patient doesn't get enough calories- however the patient is refusing PEG placement. - continue with supplements. UTI growing E. Coli Elevated PSA - treated with Levaquin. -Urology consulted for elevated PSA, recommendations appreciated -continue Flomax, repeat UA and PSA on an outpatient basis. Aggressive behavior, encephalopathy: improving the Avelar act was lifted by psychiatry Continue Seroquel, sertraline. Currently on lactulose. Right wrist pain and swelling, improving. X ray reviewed no fracture. US negative. Pain control with norco as need pr pain scale. orthopedic doctor for consulted recommended MRI. MRI 10/05/17 of right wrist reviewed negative. continue with pain control. Thrombocytopenia: -Chronic, at baseline. PLTs stable, H&H stable with no reported bleeding. Seizure disorder: -Continue David Luther. Seizure precautions. PTSD, personality disorder: -Appreciate psychiatry recommendations. -Continue Seroquel. Trazodone daily at bedtime. COPD: -s/p Prednisone taper, currently stable on room air. Generalized weakness: - Patient has chronic debility likely secondary to chronic alcohol abuse. - Continue PT DVT prophylaxis: Lovenox. Discharge Planning dc planning in progress. Rob Kwon MD Oct 21, 2017 11:33
[2017-10-21] MEDS: ENOXAPARIN SODIUM 30 MG/0.3 ML SYRINGE SQ SCH (12:42)
[2017-10-21 12:50] VITALS: BP 104/64; PULSE 62; RESP 20; TEMP 98.2; O2SAT 94
--- NOTE | 2017-10-21 16:50 | HHI.HCPN ---
Reason for visit a. To assist with evaluation and management of symptoms including: Pain, decreased oral intake b. To assist medical decision maker(s) with: better understanding of current medical conditions; weighing benefits/burdens of medical treatment options; making medical treatment decisions. Subjective/Interval History Patient seen and examined in his room. Patient is sleeping, easily arousable by touch. It appears patient is sleeping most of the day. Patient is hard of hearing. Patient is alert, oriented to self, place and time. Patient complaining of pain to left shoulder, stated that he does`nt need pain medication at this time. Patient sparingly needing pain medication. Patient required x3 dose Hydrocodone/acetaminophen 5/325 in the last 24 hrs. Patient endorsing fair appetite. Denies nausea. Patient still gets supplement ensure TID. Physical therapy following recommending PT at rehab. No family at bedside. . Family/friend interactions No family at bedside. . Advance Directives Living Will: Never completed Health Care Surrogate: Never completed Durable Power of Senior Asic Design Engineer: Never completed Advance Directive Specifics Health Care Surrogate(s): Health care Surrogate -Significant other-Anna McadamsNnfdjwct-[phone] . Objective Vital Signs Date Time Temp Pulse Resp B/P (MAP) Pulse Ox O2 Delivery O2 Flow Rate FiO2 10/21/17 12:50 98.2 62 20 104/64 (77) 94 10/21/17 08:24 98.2 61 20 96/59 (71) 95 10/21/17 04:00 98.2 70 17 129/74 (92) 94 10/21/17 00:00 97.8 103 19 108/71 (83) 94 10/20/17 20:00 97.9 62 17 109/72 (84) 96 10/20/17 16:38 98.2 60 18 97/60 (72) 91 Physical Exam CONSTITUTIONAL/GENERAL: This is an adequately nourished patient, in no apparent distress. Denies pain TUBES/LINES/DRAINS:PIV SKIN: No jaundice, rashes, or lesions. Ecchymoses on upper extremities. No wounds seen anteriorly. Skin temperature appropriate. Not diaphoretic. HEAD: Atraumatic. Normocephalic. EYES: Pupils equal and round and reactive. Extraocular motions intact. No scleral icterus. No injection or drainage. Fundi not examined. ENT: Hard of Hearing.Nose without bleeding or purulent drainage. NECK: Trachea midline. Supple, nontender. CARDIOVASCULAR: Regular rate and rhythm without murmurs, gallops, or rubs. No JVD. Peripheral pulses symmetric. RESPIRATORY/CHEST: Symmetric, unlabored respirations. Clear to auscultation. Breath sounds equal bilaterally. No wheezes, rales, or rhonchi. GASTROINTESTINAL: Abdomen soft, non-tender, nondistended. No guarding. Bowel sounds present. GENITOURINARY: Without palpable bladder distension. MUSCULOSKELETAL: Extremities without clubbing, cyanosis, or edema. No joint tenderness or effusion noted. No calf tenderness. No mottling or clubbing. NEUROLOGICAL: Sleeping but easily arousable. Motor and sensory grossly within normal limits. Follows commands. Moves all extremities. PSYCHIATRIC: No obvious anxiety/depression. no apparent hallucinations or other psychotic thought process. . Assessment and Plan Disease Oriented Problem List: (1) Alcohol-induced mood disorder (2) PTSD (post-traumatic stress disorder) (3) Bipolar disorder (4) COPD (chronic obstructive pulmonary disease) Symptom Scale: (1) Decreased oral intake 0-10 Scale: Unable to quantify (2) Pain 0-10 Scale: Unable to quantify Comment: Multifactorial. c/o pain to Right shoulder and wrist. Wrist MRI on revealed effusion in the proximal carpal row and in the radiocarpal joint and no osteomyelitis. . Pertinent Non-Medical Issues Psychosocial:Patient was born and raised in [place]. Patient served in the [employer] during the [place] war for 6 years. He moved to [place] in the 1970s. Patient was and once. He has 2 sons whom he states he has not spoken to in about 10 years. Patient stated that the last he heard from them was about 10 years ago and at that time they were in [place], [place]. Spiritual:Patient is Roman Catholic-Prefers Taoism- Declined corporate security manager visit Legal:Does not have advance directives- Provide pt with HCS form Ethical issues impacting care:None identified at this time . Important Contacts Health care Surrogate -Significant other-Anna McadamsMpqusngb-[phone] Son-Pardeep Qdvzxj-[phone] Son-Deon Heath Marker- Father- Edy Marker [phone] [place] [facility]- Payee- Dianelys Chambers - [phone] . Prognosis Mr. Valenzuela is a 62-year-old with a past medical history of bipolar disorder, seizure disorder, gout, chronic low back pain, COPD, hypertension, chronic alcoholic pancreatitis, hepatitis B and C, dyslipidemia, and alcoholism. Patient was brought to the ER from an RESIDENTIAL by EMS on August 28, 2017 to be evaluated for altered mental status, behavioral disturbances and a witnessed fall. Clinical course complicated with decreased oral intake, hypotension, urinary tract infection. . Code Status: No Code Plan PLAN: Legal decision maker: Patient is capable of participating in making his own medical decisions. In the event that he is incapacitated, patient designated his significant other Erika Mcadams to serve as his HCS. Goals: Aggressive short of no code. CODE STATUS: No Code DNR SYMPTOMS: * Pain: Multifactorial. Pain can be from bedbound, and other source for pain could be IV. Patient also had complaints of pain to his right wrist. Wrist MRI on 10/05 revealed effusion in the proximal carpal row and in the radiocarpal joint and no osteomyelitis. Pain currently managed with Hydrocodone/ acetaminophen 5/325 and Tramadol. Sparingly needing pain medication. His last hydrocodone dose was given on 10/21/17 and last tramadol was administered on . No recommendations at this time. * Decreased oral intake: Patient has been refusing his meals. Patient stated that the day he did not eat he was nauseated but now he has started to eat and drink. Property And Supply Officer consulted. Caloric count initiated and completed. Per Property And Supply Officer patient is not meeting his caloric intake, recommended liberalizing diet from heart healthy diet restrictions.Patent gets Boost TID with meals. Patient is on Multivitamins 1 tab daily. Maintenance IVF discontinued.Per bedside RN patient has been eating at least 50% -100% of his meals. Palliative care will continue to follow the patient during hospital course as condition evolves, to assist patient/decision-maker with understanding of their medical conditions, weighing benefits/burdens of treatment options, for clarification of goals of treatment. Additionally will assist with any symptoms of palliative concern Attestation To help prompt me to consider important information that might be impacting today's encounter and assessment, information from prior notes written by myself or my colleagues may have been "brought forward" into today's note. My signature on this note, however, is an attestation that I personally performed the exam, history, and/or decision-making noted today, and, unless otherwise indicated, the interactions with patient, family, and staff as well as the review of records all occurred today. I also attest that the listed assessment and stated plan reflect my best clinical judgment today based on the combination of historical information, prior notes, and today's exam/ interactions. When time spent is documented, it refers only to time spent today by the signer, or if indicated, combined time spent today by collaborating physician/nurse practitioner. Robin Dominguez Oct 21, 2017 16:50
[2017-10-21 16:56] VITALS: BP 121/72; PULSE 60; RESP 20; TEMP 98; O2SAT 96
[2017-10-21 20:27] VITALS: BP 100/69; PULSE 74; RESP 17; TEMP 98.9; O2SAT 95
[2017-10-21] MEDS ORDERED: LACTIC ACID (AMMONIUM LACTATE) 12% LOTION 225 GM BTL TOPICAL SCH (21:00)
[2017-10-21] MEDS: QUEtiapine FUMARATE 25 MG TAB PO SCH (22:59)
[2017-10-21] MEDS: DIVALPROEX SODIUM E.R. 500 MG TAB PO SCH (22:59)
[2017-10-21] MEDS: traZODone HCL 100 MG TAB PO SCH (23:00)
[2017-10-22 00:34] VITALS: BP 113/78; PULSE 64; RESP 17; TEMP 99.1; O2SAT 96
[2017-10-22 04:33] VITALS: BP 113/74; PULSE 62; RESP 17; TEMP 98.8; O2SAT 96
[2017-10-22 07:00] VITALS: BP 103/70; PULSE 71; RESP 20; TEMP 97.2; O2SAT 95
[2017-10-22] MEDS: LACTULOSE SYRUP 20 GM/30 ML CUP PO SCH ×2 (08:01→21:11)
[2017-10-22] MEDS: ACETAMINOPHEN/HYDROcodone 325 MG/5 MG TAB PO PRN (08:01)
[2017-10-22] MEDS: MULTIVITAMIN TAB PO SCH (08:02)
[2017-10-22] MEDS: levETIRAcetam 500 MG TAB PO SCH ×2 (08:02→21:11)
[2017-10-22] MEDS: SERTRALINE HCL 100 MG TAB PO SCH (08:02)
[2017-10-22] MEDS: DOCUSATE SODIUM 50 MG/SENNA 8.6 MG TAB PO SCH ×2 (08:02→21:11)
[2017-10-22] MEDS: SODIUM CHLORIDE 0.9% FLUSH 10 ML FLUSH IV FLUSH SCH ×2 (08:03→21:11)
--- NOTE | 2017-10-22 11:00 | HHI.PR ---
Subjective Remarks in no acute distress. sitting comfortably. clinically no change. d/w the RN and no acute issues over night. Objective Vitals Vital Signs Date Time Temp Pulse Resp B/P (MAP) Pulse Ox O2 Delivery O2 Flow Rate FiO2 10/22/17 04:33 98.8 62 17 113/74 (87) 96 10/22/17 00:34 99.1 64 17 113/78 (90) 96 10/21/17 20:27 98.9 74 17 100/69 (79) 95 10/21/17 16:56 98.0 60 20 121/72 (88) 96 10/21/17 12:50 98.2 62 20 104/64 (77) 94 I/O 10/21/17 10/21/17 10/21/17 10/22/17 10/22/17 10/22/17 07:00 15:00 23:00 07:00 15:00 23:00 Intake Total 660 ml 600 ml Balance 660 ml 600 ml Intake Oral 660 ml 600 ml # Voids 4 Imaging Last Impressions Wrist MRI 10/05/17 0000 Signed Impressions: Service Date/Time: Thursday, October 05, 2017 12:00 - CONCLUSION: 1. No evidence of osteomyelitis. 2. Effusion in the proximal carpal row and in the radiocarpal joint. Fermin Duggan MD Upper Extremity Ultrasound 10/03/17 0000 Signed Impressions: Service Date/Time: Monday, October 02, 2017 14:57 - CONCLUSION: 1. Negative for deep venous thrombosis right upper extremity. Fermin Duggan MD Wrist X-Ray 10/02/17 0000 Signed Impressions: Service Date/Time: Monday, October 02, 2017 10:18 - CONCLUSION: Unremarkable exam. No significant change compared to the prior study. Wade Butler MD Renal Ultrasound 09/24/17 0000 Signed Impressions: Service Date/Time: Sunday, September 24, 2017 09:53 - CONCLUSION: Negative for stone or obstruction. Silvestre Iniguez MD FACR Head CT 08/28/17 0000 Signed Impressions: Service Date/Time: Monday, August 28, 2017 06:05 - CONCLUSION: 1. No acute intracranial hemorrhage. 2. Stable diffuse bilateral cortical atrophy. 3. No significant change compared to the prior exam. Wade Butler MD Cervical Spine CT 08/28/17 0000 Signed Impressions: Service Date/Time: Monday, August 28, 2017 06:08 - CONCLUSION: 1. No acute bony fracture. 2. Stable diffuse primary degenerative changes involving the cervical spine. 3. No new or significant changes. Wade Butler MD Objective Remarks GENERAL: This is a well-nourished, well-developed patient, in no apparent distress. CARDIOVASCULAR: Regular rate and regular rhythm without murmurs, gallops, or rubs. RESPIRATORY: Clear to auscultation. Breath sounds equal bilaterally. No wheezes , rales, or rhonchi. GASTROINTESTINAL: Abdomen soft, non-tender, nondistended. Normal, active bowel sounds MUSCULOSKELETAL: Extremities without clubbing, cyanosis, or edema. NEURO: awake and alert Procedures None Medications and IVs Inpatient Medications Acetaminophen (Tylenol) 650 mg Q4H PRN PO FEVER Last administered on 10/13/17 20:33; Start 09/23/17 at 09:45 Acetaminophen/ Hydrocodone Bitart ([place] 5-325 Mg) 1 tab Q6H PRN PO pain 1-5 Last administered on 10/22/17 08:01; Start 10/02/17 at 08:30 Albuterol Sulfate (Albuterol Neb) 1.25 mg Q6HR NEB NEB Last administered on at 21:46; Start 08/30/17 at 11:15; Stop 09/03/17 at 11:14; Status DC Bisacodyl (Dulcolax Supp) 10 mg DAILY PRN RECTAL SEVERE CONSITIPATION; Start at 17:00 Clonidine (Catapres) 0.1 mg Q6H PRN PO SBP> OR = 170, DBP> OR = 100 Last administered on 09/09/17 16:13; Start 08/29/17 at 18:30 Diphenhydramine HCl (Benadryl Inj) 25 mg ONCE ONCE IM Last administered on at 02:43; Start 08/28/17 at 02:30; Stop 08/28/17 at 02:31; Status DC Divalproex Sodium (Depakote Er) 1,000 mg HS PO Last administered on 10/21/17at 22 :59; Start 08/28/17 at 21:00 Enoxaparin Sodium (Lovenox Inj) 30 mg Q24H SQ Last administered on 10/21/17at 12: 42; Start 09/25/17 at 12:00 Haloperidol Lactate (Haldol Inj) 2 mg ONCE ONCE IM Last administered on at 13:50; Start 08/28/17 at 13:30; Stop 08/28/17 at 13:31; Status DC Heparin Sodium (Porcine) (Heparin Inj) 5,000 units Q12H SQ Last administered on 09/23/17at 06:14; Start 08/28/17 at 18:00; Stop 09/25/17 at 10:57; Status DC Hydroxyzine HCl (Atarax) 50 mg Q6HR PRN PO ANXIETY Last administered on at 08:12; Start 08/28/17 at 17:15 Lactic Acid (Lac-Hydrin 12% Lotion) 1 applic BID TOPICAL ; Start 10/21/17 at 21: 00; Stop 10/21/17 at 21:00; Status DC Lactulose (Lactulose Liq) 30 ml DAILY PRN PO SEVERE CONSITIPATION; Start at 17:00 Levetriacetam (Keppra) 1,500 mg Q12HR PO Last administered on 10/22/17at 08:02; Start 08/28/17 at 21:00 Levofloxacin (Levaquin) 500 mg DAILY PO Last administered on 10/14/17at 09:08; Start 09/26/17 at 09:00; Stop 10/14/17 at 09:24; Status DC Levofloxacin/ Dextrose 100 ml @ 100 mls/hr Q24H IV Last administered on at 14:26; Start 09/23/17 at 15:00; Stop 09/25/17 at 18:19; Status DC Lorazepam (Ativan Inj) 2 mg ONCE ONCE IM Last administered on 08/28/17at 05:48 ; Start 08/28/17 at 05:45; Stop 08/28/17 at 05:46; Status DC Magnesium Hydroxide (Milk Of Magnesia Liq) 30 ml Q12H PRN PO Mild constipation Last administered on 10/12/17at 20:39; Start 08/28/17 at 17:00 Multivitamins (Theragran) 1 tab DAILY PO Last administered on 10/22/17 08:02; Start 10/08/17 at 09:00 Naloxone HCl (Narcan Inj) 0.4 mg UNSCH PRN IV PUSH SEE LABEL COMMENTS; Start at 17:00 Ondansetron HCl (Zofran Inj) 4 mg Q6H PRN IVP NAUSEA OR VOMITING; Start at 17:00 Phenazopyridine HCl (Pyridium) 200 mg Q8HR PO Last administered on 09/25/17at 05 :54; Start 09/23/17 at 14:15; Stop 09/25/17 at 11:01; Status DC Potassium Chloride/Dextrose/ Sod Cl 1,000 ml @ 75 mls/hr [id number] IV Last administered on 09/25/17 05:58; Start 09/23/17 at 14:15; Stop 09/25/17 at 10:57 ; Status DC Potassium Bicarb/ Potassium Chloride (K-Lyte Cl Eff) 50 meq ONCE ONCE PO Last administered on 08/28/17at 18:09; Start 08/28/17 at 17:00; Stop 08/28/17 at 17:24; Status DC Potassium Chloride 100 ml @ 100 mls/hr Q1H IV Last administered on 08/30/17at 12:45; Start 08/30/17 at 09:45; Stop 08/30/17 at 13:44; Status DC Potassium Chloride (KCl) 30 meq ONCE ONCE PO Last administered on 08/30/17at 10 :31; Start 08/30/17 at 09:45; Stop 08/30/17 at 09:55; Status DC Prednisone (Deltasone) 30 mg DAILY PO Last administered on 09/21/17at 10:00; Start 09/10/17 at 09:00; Stop 09/21/17 at 11:50; Status DC Quetiapine Fumarate (SEROquel) 75 mg HS PO Last administered on 10/21/17at 22:59 ; Start 08/29/17 at 21:00 Senna/Docusate Sodium (Leanne-Colace) 1 tab BID PO Last administered on 10/22/17at 08:02; Start 08/28/17 at 21:00 Sennosides (Senokot) 17.2 mg Q12H PRN PO Moderate constipation; Start 08/28/17 at 17:00 Sertraline HCl (Zoloft) 200 mg DAILY PO Last administered on 10/22/17at 08:02; Start 08/29/17 at 09:00 Sodium Chloride 1,000 ml @ 75 mls/hr [id number] IV Last administered on 10/15/17at 02:40; Start 10/12/17 at 09:45; Stop 10/15/17 at 10:55; Status DC Sodium Chloride (NS Flush) 2 ml BID IV FLUSH Last administered on 10/22/17at 08: 03; Start 08/28/17 at 21:00 Tamsulosin HCl (Flomax) 0.4 mg DAILY PO Last administered on 10/12/17at 08:37; Start 09/24/17 at 10:15; Status Future Hold Tramadol HCl (Ultram) 50 mg Q8H PRN PO pain >5 Last administered on 10/17/17at 11 :27; Start 09/27/17 at 21:45 Trazodone HCl (Desyrel) 200 mg HS PO Last administered on 10/21/17at 23:00; Start 08/28/17 at 21:00 A/P Problem List: (1) Encephalopathy ICD Code: G93.40 - Encephalopathy Status: Acute (2) Alcohol-induced mood disorder ICD Code: F10.94 - Alcohol use, unspecified with alcohol-induced mood disorder Status: Acute (3) Debility ICD Code: R53.81 - Other malaise (4) COPD (chronic obstructive pulmonary disease) ICD Code: J44.9 - COPD (chronic obstructive pulmonary disease) Status: Chronic (5) PTSD (post-traumatic stress disorder) ICD Code: F43.10 - Post-traumatic stress disorder, unspecified Assessment and Plan Anorexia - consulted dietitian for calorie count. calorie count shows that the patient doesn't get enough calories- however the patient is refusing PEG placement. - continue with supplements. UTI growing E. Coli Elevated PSA - treated with Levaquin. -Urology consulted for elevated PSA, recommendations appreciated -continue Flomax, repeat UA and PSA on an outpatient basis. Aggressive behavior, encephalopathy: improving the Avelar act was lifted by psychiatry Continue Seroquel, sertraline. Currently on lactulose. Right wrist pain and swelling, improving. X ray reviewed no fracture. US negative. Pain control with norco as need pr pain scale. orthopedic doctor for consulted recommended MRI. MRI 10/05/17 of right wrist reviewed negative. continue with pain control. Thrombocytopenia: -Chronic, at baseline. PLTs stable, H&H stable with no reported bleeding. Seizure disorder: -Continue Depakote, Keppra. Seizure precautions. PTSD, personality disorder: -Appreciate psychiatry recommendations. -Continue Seroquel. Trazodone daily at bedtime. COPD: - currently stable on room air. Generalized weakness: - Patient has chronic debility likely secondary to chronic alcohol abuse. - Continue PT DVT prophylaxis: Lovenox. Discharge Planning dc planning in progress. Rob Kwon MD Oct 22, 2017 10:59
[2017-10-22] MEDS: ENOXAPARIN SODIUM 30 MG/0.3 ML SYRINGE SQ SCH (12:15)
[2017-10-22 16:18] VITALS: BP 159/98; PULSE 64; RESP 20; TEMP 98; O2SAT 95
[2017-10-22 21:09] VITALS: BP 115/60; PULSE 65; RESP 17; TEMP 98.2; O2SAT 95
[2017-10-22] MEDS: QUEtiapine FUMARATE 25 MG TAB PO SCH (21:11)
[2017-10-22] MEDS: DIVALPROEX SODIUM E.R. 500 MG TAB PO SCH (21:11)
[2017-10-22] MEDS: traZODone HCL 100 MG TAB PO SCH (21:12)
[2017-10-23 00:20] VITALS: BP 118/88; PULSE 100; RESP 20; TEMP 97.9; O2SAT 99
[2017-10-23 04:40] VITALS: BP 120/76; PULSE 98; RESP 21; TEMP 98; O2SAT 98
[2017-10-23 10:05] VITALS: BP 118/72; PULSE 77; RESP 20; TEMP 98.1; O2SAT 94
[2017-10-23] MEDS: SODIUM CHLORIDE 0.9% FLUSH 10 ML FLUSH IV FLUSH SCH ×2 (10:57→21:20)
[2017-10-23] MEDS: SERTRALINE HCL 100 MG TAB PO SCH (10:57)
--- NOTE | 2017-10-23 10:57 | HHI.PR ---
Subjective Remarks in no acute distress. no change. Objective Vitals Vital Signs Date Time Temp Pulse Resp B/P (MAP) Pulse Ox O2 Delivery O2 Flow Rate FiO2 10/23/17 10:05 98.1 77 20 118/72 (87) 94 10/23/17 04:40 98.0 98 21 120/76 (91) 98 10/23/17 00:20 97.9 100 20 118/88 (98) 99 10/22/17 21:09 98.2 65 17 115/60 (78) 95 10/22/17 16:18 98.0 64 20 159/98 (118) 95 I/O 10/22/17 10/22/17 10/22/17 10/23/17 10/23/17 10/23/17 07:00 15:00 23:00 07:00 15:00 23:00 Intake Total 960 ml 950 ml 1050 ml Balance 960 ml 950 ml 1050 ml Intake Oral 960 ml 950 ml 1050 ml # Voids 4 1 2 # Bowel Movements 0 0 Imaging Last Impressions Wrist MRI 10/05/17 0000 Signed Impressions: Service Date/Time: Thursday, October 05, 2017 12:00 - CONCLUSION: 1. No evidence of osteomyelitis. 2. Effusion in the proximal carpal row and in the radiocarpal joint. Fermin Duggan MD Upper Extremity Ultrasound 10/03/17 0000 Signed Impressions: Service Date/Time: Monday, October 02, 2017 14:57 - CONCLUSION: 1. Negative for deep venous thrombosis right upper extremity. Fermin Duggan MD Wrist X-Ray 10/02/17 0000 Signed Impressions: Service Date/Time: Monday, October 02, 2017 10:18 - CONCLUSION: Unremarkable exam. No significant change compared to the prior study. Wade Butler MD Renal Ultrasound 09/24/17 0000 Signed Impressions: Service Date/Time: Sunday, September 24, 2017 09:53 - CONCLUSION: Negative for stone or obstruction. Silvestre Iniguez MD FACR Head CT 08/28/17 0000 Signed Impressions: Service Date/Time: Monday, August 28, 2017 06:05 - CONCLUSION: 1. No acute intracranial hemorrhage. 2. Stable diffuse bilateral cortical atrophy. 3. No significant change compared to the prior exam. Wade Butler MD Cervical Spine CT 08/28/17 0000 Signed Impressions: Service Date/Time: Monday, August 28, 2017 06:08 - CONCLUSION: 1. No acute bony fracture. 2. Stable diffuse primary degenerative changes involving the cervical spine. 3. No new or significant changes. Wade Butler MD Objective Remarks GENERAL: This is a well-nourished, well-developed patient, in no apparent distress. CARDIOVASCULAR: Regular rate and regular rhythm without murmurs, gallops, or rubs. RESPIRATORY: Clear to auscultation. Breath sounds equal bilaterally. No wheezes , rales, or rhonchi. GASTROINTESTINAL: Abdomen soft, non-tender, nondistended. Normal, active bowel sounds MUSCULOSKELETAL: Extremities without clubbing, cyanosis, or edema. NEURO: awake and alert Procedures None Medications and IVs Inpatient Medications Acetaminophen (Tylenol) 650 mg Q4H PRN PO FEVER Last administered on 10/13/17 20:33; Start 09/23/17 at 09:45 Acetaminophen/ Hydrocodone Bitart ([place] 5-325 Mg) 1 tab Q6H PRN PO pain 1-5 Last administered on 10/22/17 08:01; Start 10/02/17 at 08:30 Albuterol Sulfate (Albuterol Neb) 1.25 mg Q6HR NEB NEB Last administered on at 21:46; Start 08/30/17 at 11:15; Stop 09/03/17 at 11:14; Status DC Bisacodyl (Dulcolax Supp) 10 mg DAILY PRN RECTAL SEVERE CONSITIPATION; Start at 17:00 Clonidine (Catapres) 0.1 mg Q6H PRN PO SBP> OR = 170, DBP> OR = 100 Last administered on 09/09/17 16:13; Start 08/29/17 at 18:30 Diphenhydramine HCl (Benadryl Inj) 25 mg ONCE ONCE IM Last administered on 02:43; Start 08/28/17 at 02:30; Stop 08/28/17 at 02:31; Status DC Divalproex Sodium (Depakote Er) 1,000 mg HS PO Last administered on 10/22/17at 21 :11; Start 08/28/17 at 21:00 Enoxaparin Sodium (Lovenox Inj) 30 mg Q24H SQ Last administered on 10/22/17at 12: 15; Start 09/25/17 at 12:00 Haloperidol Lactate (Haldol Inj) 2 mg ONCE ONCE IM Last administered on at 13:50; Start 08/28/17 at 13:30; Stop 08/28/17 at 13:31; Status DC Heparin Sodium (Porcine) (Heparin Inj) 5,000 units Q12H SQ Last administered on 09/23/17at 06:14; Start 08/28/17 at 18:00; Stop 09/25/17 at 10:57; Status DC Hydroxyzine HCl (Atarax) 50 mg Q6HR PRN PO ANXIETY Last administered on 08:12; Start 08/28/17 at 17:15 Lactic Acid (Lac-Hydrin 12% Lotion) 1 applic BID TOPICAL ; Start 10/21/17 at 21: 00; Stop 10/21/17 at 21:00; Status DC Lactulose (Lactulose Liq) 30 ml DAILY PRN PO SEVERE CONSITIPATION; Start at 17:00 Levetriacetam (Keppra) 1,500 mg Q12HR PO Last administered on 10/22/17at 21:11; Start 08/28/17 at 21:00 Levofloxacin (Levaquin) 500 mg DAILY PO Last administered on 10/14/17at 09:08; Start 09/26/17 at 09:00; Stop 10/14/17 at 09:24; Status DC Levofloxacin/ Dextrose 100 ml @ 100 mls/hr Q24H IV Last administered on at 14:26; Start 09/23/17 at 15:00; Stop 09/25/17 at 18:19; Status DC Lorazepam (Ativan Inj) 2 mg ONCE ONCE IM Last administered on 08/28/17at 05:48 ; Start 08/28/17 at 05:45; Stop 08/28/17 at 05:46; Status DC Magnesium Hydroxide (Milk Of Magnesia Liq) 30 ml Q12H PRN PO Mild constipation Last administered on 10/12/17at 20:39; Start 08/28/17 at 17:00 Multivitamins (Theragran) 1 tab DAILY PO Last administered on 10/22/17at 08:02; Start 10/08/17 at 09:00 Naloxone HCl (Narcan Inj) 0.4 mg UNSCH PRN IV PUSH SEE LABEL COMMENTS; Start at 17:00 Ondansetron HCl (Zofran Inj) 4 mg Q6H PRN IVP NAUSEA OR VOMITING; Start at 17:00 Phenazopyridine HCl (Pyridium) 200 mg Q8HR PO Last administered on 09/25/17at 05 :54; Start 09/23/17 at 14:15; Stop 09/25/17 at 11:01; Status DC Potassium Chloride/Dextrose/ Sod Cl 1,000 ml @ 75 mls/hr [id number] IV Last administered on 09/25/17at 05:58; Start 09/23/17 at 14:15; Stop 09/25/17 at 10:57 ; Status DC Potassium Bicarb/ Potassium Chloride (K-Lyte Cl Eff) 50 meq ONCE ONCE PO Last administered on 08/28/17at 18:09; Start 08/28/17 at 17:00; Stop 08/28/17 at 17:24; Status DC Potassium Chloride 100 ml @ 100 mls/hr Q1H IV Last administered on 08/30/17at 12:45; Start 08/30/17 at 09:45; Stop 08/30/17 at 13:44; Status DC Potassium Chloride (KCl) 30 meq ONCE ONCE PO Last administered on 08/30/17at 10 :31; Start 08/30/17 at 09:45; Stop 08/30/17 at 09:55; Status DC Prednisone (Deltasone) 30 mg DAILY PO Last administered on 09/21/17at 10:00; Start 09/10/17 at 09:00; Stop 09/21/17 at 11:50; Status DC Quetiapine Fumarate (SEROquel) 75 mg HS PO Last administered on 10/22/17at 21:11 ; Start 08/29/17 at 21:00 Senna/Docusate Sodium (Leanne-Colace) 1 tab BID PO Last administered on 10/22/17at 21:11; Start 08/28/17 at 21:00 Sennosides (Senokot) 17.2 mg Q12H PRN PO Moderate constipation; Start 08/28/17 at 17:00 Sertraline HCl (Zoloft) 200 mg DAILY PO Last administered on 10/22/17 08:02; Start 08/29/17 at 09:00 Sodium Chloride 1,000 ml @ 75 mls/hr [id number] IV Last administered on 10/15/17 02:40; Start 10/12/17 at 09:45; Stop 10/15/17 at 10:55; Status DC Sodium Chloride (NS Flush) 2 ml BID IV FLUSH Last administered on 10/22/17at 21: 11; Start 08/28/17 at 21:00 Tamsulosin HCl (Flomax) 0.4 mg DAILY PO Last administered on 10/12/17at 08:37; Start 09/24/17 at 10:15; Status Future Hold Tramadol HCl (Ultram) 50 mg Q8H PRN PO pain >5 Last administered on 10/17/17at 11 :27; Start 09/27/17 at 21:45 Trazodone HCl (Desyrel) 200 mg HS PO Last administered on 10/22/17at 21:12; Start 08/28/17 at 21:00 A/P Problem List: (1) Encephalopathy ICD Code: G93.40 - Encephalopathy Status: Acute (2) Alcohol-induced mood disorder ICD Code: F10.94 - Alcohol use, unspecified with alcohol-induced mood disorder Status: Acute (3) Debility ICD Code: R53.81 - Other malaise (4) COPD (chronic obstructive pulmonary disease) ICD Code: J44.9 - COPD (chronic obstructive pulmonary disease) Status: Chronic (5) PTSD (post-traumatic stress disorder) ICD Code: F43.10 - Post-traumatic stress disorder, unspecified Assessment and Plan Anorexia - consulted dietitian for calorie count. calorie count shows that the patient doesn't get enough calories- however the patient is refusing PEG placement. - continue with supplements. UTI growing E. Coli Elevated PSA - treated with Levaquin. -Urology consulted for elevated PSA, recommendations appreciated -continue Flomax, repeat UA and PSA on an outpatient basis. Aggressive behavior, encephalopathy: improving the Avelar act was lifted by psychiatry Continue Seroquel, sertraline. Currently on lactulose. Right wrist pain and swelling, improving. X ray reviewed no fracture. US negative. Pain control with norco as need pr pain scale. orthopedic doctor for consulted recommended MRI. MRI 10/05/17 of right wrist reviewed negative. continue with pain control. Thrombocytopenia: -Chronic, at baseline. PLTs stable, H&H stable with no reported bleeding. Seizure disorder: -Continue Depakote, Keppra. Seizure precautions. PTSD, personality disorder: -Appreciate psychiatry recommendations. -Continue Seroquel. Trazodone daily at bedtime. COPD: - currently stable on room air. Generalized weakness: - Patient has chronic debility likely secondary to chronic alcohol abuse. - Continue PT DVT prophylaxis: Lovenox. Discharge Planning dc planning in progress. Rob Kwon MD Oct 23, 2017 10:57
[2017-10-23] MEDS: LACTULOSE SYRUP 20 GM/30 ML CUP PO SCH ×2 (10:58→21:19)
[2017-10-23] MEDS: levETIRAcetam 500 MG TAB PO SCH ×2 (10:58→21:19)
[2017-10-23] MEDS: DOCUSATE SODIUM 50 MG/SENNA 8.6 MG TAB PO SCH ×2 (10:58→21:19)
[2017-10-23] MEDS: MULTIVITAMIN TAB PO SCH (10:58)
[2017-10-23] MEDS: ENOXAPARIN SODIUM 30 MG/0.3 ML SYRINGE SQ SCH (10:59)
[2017-10-23 11:52] VITALS: BP 128/66; PULSE 65; RESP 20; TEMP 98.6; O2SAT 94
[2017-10-23] MEDS: traMADol HCL 50 MG TAB PO PRN (14:02)
[2017-10-23 15:49] VITALS: BP 121/69; PULSE 75; RESP 20; TEMP 98.2; O2SAT 94
[2017-10-23 20:00] VITALS: BP 136/73; PULSE 60; RESP 18; TEMP 97.1; O2SAT 95
[2017-10-23] MEDS: QUEtiapine FUMARATE 25 MG TAB PO SCH (21:19)
[2017-10-23] MEDS: DIVALPROEX SODIUM E.R. 500 MG TAB PO SCH (21:19)
[2017-10-23] MEDS: traZODone HCL 100 MG TAB PO SCH (21:20)
[2017-10-24] VITALS: BP 130/84; PULSE 63; RESP 18; TEMP 98; O2SAT 97
[2017-10-24 04:00] VITALS: BP 133/76; PULSE 56; RESP 18; TEMP 97.6; O2SAT 95
[2017-10-24 08:00] VITALS: BP 100/60; PULSE 63; RESP 16; TEMP 98.3; O2SAT 95
[2017-10-24] MEDS: LACTULOSE SYRUP 20 GM/30 ML CUP PO SCH ×2 (08:06→21:59)
[2017-10-24] MEDS: MULTIVITAMIN TAB PO SCH (08:07)
[2017-10-24] MEDS: traMADol HCL 50 MG TAB PO PRN (08:07)
[2017-10-24] MEDS: SERTRALINE HCL 100 MG TAB PO SCH (08:08)
[2017-10-24] MEDS: levETIRAcetam 500 MG TAB PO SCH ×2 (08:08→22:00)
[2017-10-24] MEDS: DOCUSATE SODIUM 50 MG/SENNA 8.6 MG TAB PO SCH ×2 (08:08→22:00)
[2017-10-24] MEDS: SODIUM CHLORIDE 0.9% FLUSH 10 ML FLUSH IV FLUSH SCH ×2 (08:08→22:00)
--- NOTE | 2017-10-24 10:38 | HHI.PR ---
Subjective Remarks in no acute distress. no change clinically. Objective Vitals Vital Signs Date Time Temp Pulse Resp B/P (MAP) Pulse Ox O2 Delivery O2 Flow Rate FiO2 10/24/17 08:00 98.3 63 16 100/60 (73) 95 10/24/17 04:00 97.6 56 18 133/76 (95) 95 10/24/17 00:00 98.0 63 18 130/84 (99) 97 10/23/17 20:00 97.1 60 18 136/73 (94) 95 10/23/17 15:49 98.2 75 20 121/69 (86) 94 10/23/17 11:52 98.6 65 20 128/66 (86) 94 I/O 10/23/17 10/23/17 10/23/17 10/24/17 10/24/17 10/24/17 06:59 14:59 22:59 06:59 14:59 22:59 Intake Total 1050 ml 780 ml Balance 1050 ml 780 ml Intake Oral 1050 ml 780 ml # Voids 2 3 5 # Bowel Movements 0 1 1 Imaging Last Impressions Wrist MRI 10/05/17 0000 Signed Impressions: Service Date/Time: Thursday, October 05, 2017 12:00 - CONCLUSION: 1. No evidence of osteomyelitis. 2. Effusion in the proximal carpal row and in the radiocarpal joint. Fermin Duggan MD Upper Extremity Ultrasound 10/03/17 0000 Signed Impressions: Service Date/Time: Monday, October 02, 2017 14:57 - CONCLUSION: 1. Negative for deep venous thrombosis right upper extremity. Fermin Duggan MD Wrist X-Ray 10/02/17 0000 Signed Impressions: Service Date/Time: Monday, October 02, 2017 10:18 - CONCLUSION: Unremarkable exam. No significant change compared to the prior study. Wade Butler MD Renal Ultrasound 09/24/17 0000 Signed Impressions: Service Date/Time: Sunday, September 24, 2017 09:53 - CONCLUSION: Negative for stone or obstruction. Silvestre Iniguez MD FACR Head CT 08/28/17 0000 Signed Impressions: Service Date/Time: Monday, August 28, 2017 06:05 - CONCLUSION: 1. No acute intracranial hemorrhage. 2. Stable diffuse bilateral cortical atrophy. 3. No significant change compared to the prior exam. Wade Butler MD Cervical Spine CT 08/28/17 0000 Signed Impressions: Service Date/Time: Monday, August 28, 2017 06:08 - CONCLUSION: 1. No acute bony fracture. 2. Stable diffuse primary degenerative changes involving the cervical spine. 3. No new or significant changes. Wade Butler MD Objective Remarks GENERAL: This is a well-nourished, well-developed patient, in no apparent distress. CARDIOVASCULAR: Regular rate and regular rhythm without murmurs, gallops, or rubs. RESPIRATORY: Clear to auscultation. Breath sounds equal bilaterally. No wheezes , rales, or rhonchi. GASTROINTESTINAL: Abdomen soft, non-tender, nondistended. Normal, active bowel sounds MUSCULOSKELETAL: Extremities without clubbing, cyanosis, or edema. NEURO: awake and alert Procedures None Medications and IVs Inpatient Medications Acetaminophen (Tylenol) 650 mg Q4H PRN PO FEVER Last administered on 10/13/17at 20:33; Start 09/23/17 at 09:45 Acetaminophen/ Hydrocodone Bitart ([place] 5-325 Mg) 1 tab Q6H PRN PO pain 1-5 Last administered on 10/22/17at 08:01; Start 10/02/17 at 08:30 Albuterol Sulfate (Albuterol Neb) 1.25 mg Q6HR NEB NEB Last administered on at 21:46; Start 08/30/17 at 11:15; Stop 09/03/17 at 11:14; Status DC Bisacodyl (Dulcolax Supp) 10 mg DAILY PRN RECTAL SEVERE CONSITIPATION; Start at 17:00 Clonidine (Catapres) 0.1 mg Q6H PRN PO SBP> OR = 170, DBP> OR = 100 Last administered on 09/09/17 16:13; Start 08/29/17 at 18:30 Diphenhydramine HCl (Benadryl Inj) 25 mg ONCE ONCE IM Last administered on at 02:43; Start 08/28/17 at 02:30; Stop 08/28/17 at 02:31; Status DC Divalproex Sodium (Depakote Er) 1,000 mg HS PO Last administered on 3/10/18at 21:19; Start 08/28/17 at 21:00 Enoxaparin Sodium (Lovenox Inj) 30 mg Q24H SQ Last administered on 10/23/17at 10 :59; Start 09/25/17 at 12:00 Haloperidol Lactate (Haldol Inj) 2 mg ONCE ONCE IM Last administered on at 13:50; Start 08/28/17 at 13:30; Stop 08/28/17 at 13:31; Status DC Heparin Sodium (Porcine) (Heparin Inj) 5,000 units Q12H SQ Last administered on 09/23/17at 06:14; Start 08/28/17 at 18:00; Stop 09/25/17 at 10:57; Status DC Hydroxyzine HCl (Atarax) 50 mg Q6HR PRN PO ANXIETY Last administered on at 08:12; Start 08/28/17 at 17:15 Lactic Acid (Lac-Hydrin 12% Lotion) 1 applic BID TOPICAL ; Start 10/21/17 at 21: 00; Stop 10/21/17 at 21:00; Status DC Lactulose (Lactulose Liq) 30 ml DAILY PRN PO SEVERE CONSITIPATION; Start at 17:00 Levetriacetam (Keppra) 1,500 mg Q12HR PO Last administered on 10/24/17at 08:08; Start 08/28/17 at 21:00 Levofloxacin (Levaquin) 500 mg DAILY PO Last administered on 10/14/17at 09:08; Start 09/26/17 at 09:00; Stop 10/14/17 at 09:24; Status DC Levofloxacin/ Dextrose 100 ml @ 100 mls/hr Q24H IV Last administered on at 14:26; Start 09/23/17 at 15:00; Stop 09/25/17 at 18:19; Status DC Lorazepam (Ativan Inj) 2 mg ONCE ONCE IM Last administered on 08/28/17at 05:48 ; Start 08/28/17 at 05:45; Stop 08/28/17 at 05:46; Status DC Magnesium Hydroxide (Milk Of Magnesia Liq) 30 ml Q12H PRN PO Mild constipation Last administered on 10/12/17at 20:39; Start 08/28/17 at 17:00 Multivitamins (Theragran) 1 tab DAILY PO Last administered on 10/24/17at 08:07; Start 10/08/17 at 09:00 Naloxone HCl (Narcan Inj) 0.4 mg UNSCH PRN IV PUSH SEE LABEL COMMENTS; Start at 17:00 Ondansetron HCl (Zofran Inj) 4 mg Q6H PRN IVP NAUSEA OR VOMITING; Start at 17:00 Phenazopyridine HCl (Pyridium) 200 mg Q8HR PO Last administered on 09/25/17at 05 :54; Start 09/23/17 at 14:15; Stop 09/25/17 at 11:01; Status DC Potassium Chloride/Dextrose/ Sod Cl 1,000 ml @ 75 mls/hr [id number] IV Last administered on 09/25/17at 05:58; Start 09/23/17 at 14:15; Stop 09/25/17 at 10:57 ; Status DC Potassium Bicarb/ Potassium Chloride (K-Lyte Cl Eff) 50 meq ONCE ONCE PO Last administered on 08/28/17at 18:09; Start 08/28/17 at 17:00; Stop 08/28/17 at 17:24; Status DC Potassium Chloride 100 ml @ 100 mls/hr Q1H IV Last administered on 08/30/17at 12:45; Start 08/30/17 at 09:45; Stop 08/30/17 at 13:44; Status DC Potassium Chloride (KCl) 30 meq ONCE ONCE PO Last administered on 08/30/17at 10 :31; Start 08/30/17 at 09:45; Stop 08/30/17 at 09:55; Status DC Prednisone (Deltasone) 30 mg DAILY PO Last administered on 09/21/17at 10:00; Start 09/10/17 at 09:00; Stop 09/21/17 at 11:50; Status DC Quetiapine Fumarate (SEROquel) 75 mg HS PO Last administered on 10/23/17at 21:19 ; Start 08/29/17 at 21:00 Senna/Docusate Sodium (Leanne-Colace) 1 tab BID PO Last administered on at 21:19; Start 08/28/17 at 21:00 Sennosides (Senokot) 17.2 mg Q12H PRN PO Moderate constipation; Start 08/28/17 at 17:00 Sertraline HCl (Zoloft) 200 mg DAILY PO Last administered on 10/24/17at 08:08; Start 08/29/17 at 09:00 Sodium Chloride 1,000 ml @ 75 mls/hr [id number] IV Last administered on 10/15/17at 02:40; Start 10/12/17 at 09:45; Stop 10/15/17 at 10:55; Status DC Sodium Chloride (NS Flush) 2 ml BID IV FLUSH Last administered on 10/24/17at 08: 08; Start 08/28/17 at 21:00 Tamsulosin HCl (Flomax) 0.4 mg DAILY PO Last administered on 10/12/17at 08:37; Start 09/24/17 at 10:15; Status Future Hold Tramadol HCl (Ultram) 50 mg Q8H PRN PO pain >5 Last administered on 10/24/17at 08:07; Start 09/27/17 at 21:45 Trazodone HCl (Desyrel) 200 mg HS PO Last administered on 10/23/17at 21:20; Start 08/28/17 at 21:00 A/P Problem List: (1) Encephalopathy ICD Code: G93.40 - Encephalopathy Status: Acute (2) Alcohol-induced mood disorder ICD Code: F10.94 - Alcohol use, unspecified with alcohol-induced mood disorder Status: Acute (3) Debility ICD Code: R53.81 - Other malaise (4) COPD (chronic obstructive pulmonary disease) ICD Code: J44.9 - COPD (chronic obstructive pulmonary disease) Status: Chronic (5) PTSD (post-traumatic stress disorder) ICD Code: F43.10 - Post-traumatic stress disorder, unspecified Assessment and Plan Anorexia - consulted dietitian for calorie count. calorie count shows that the patient doesn't get enough calories- however the patient is refusing PEG placement. - continue with supplements. UTI growing E. Coli Elevated PSA - treated with Levaquin. -Urology consulted for elevated PSA, recommendations appreciated -continue Flomax, repeat UA and PSA on an outpatient basis. Aggressive behavior, encephalopathy: improving the Avelar act was lifted by psychiatry Continue Seroquel, sertraline. Currently on lactulose. Right wrist pain and swelling, improving. X ray reviewed no fracture. US negative. Pain control with norco as need pr pain scale. orthopedic doctor for consulted recommended MRI. MRI 10/05/17 of right wrist reviewed negative. continue with pain control. Thrombocytopenia: -Chronic, at baseline. PLTs stable, H&H stable with no reported bleeding. Seizure disorder: -Continue Depakote, Keppra. Seizure precautions. PTSD, personality disorder: -Appreciate psychiatry recommendations. -Continue Seroquel. Trazodone daily at bedtime. COPD: - currently stable on room air. Generalized weakness: - Patient has chronic debility likely secondary to chronic alcohol abuse. - Continue PT DVT prophylaxis: Lovenox. Discharge Planning dc planning in progress. Rob Kwon MD Oct 24, 2017 10:38
[2017-10-24 12:00] VITALS: BP 112/74; PULSE 76; RESP 16; TEMP 97.7; O2SAT 94
[2017-10-24] MEDS: ENOXAPARIN SODIUM 30 MG/0.3 ML SYRINGE SQ SCH (12:57)
[2017-10-24 16:00] VITALS: BP 106/71; PULSE 68; RESP 16; TEMP 97.9; O2SAT 96
[2017-10-24 20:00] VITALS: BP 104/73; PULSE 78; RESP 18; TEMP 97.8; O2SAT 95
[2017-10-24] MEDS: DIVALPROEX SODIUM E.R. 500 MG TAB PO SCH (22:00)
[2017-10-24] MEDS: QUEtiapine FUMARATE 25 MG TAB PO SCH (22:00)
[2017-10-24] MEDS: traZODone HCL 100 MG TAB PO SCH (22:00)
[2017-10-25] VITALS (7 sets, daily range): BP systolic 93–134; BP diastolic 55–81; PULSE 65–93; RESP 18–21; TEMP 97–98.7; O2SAT 93–100
[2017-10-25 07:27] LABS: BICARBONATE 30.5 MEQ/L (21.0-32.0); CALCIUM 8.7 MG/DL (8.5-10.1); CREATININE 0.94 MG/DL (0.60-1.30)
[2017-10-25] MEDS: MULTIVITAMIN TAB PO SCH (10:41)
[2017-10-25] MEDS: ACETAMINOPHEN/HYDROcodone 325 MG/5 MG TAB PO PRN (10:41)
[2017-10-25] MEDS: levETIRAcetam 500 MG TAB PO SCH ×2 (10:41→21:58)
[2017-10-25] MEDS: LACTULOSE SYRUP 20 GM/30 ML CUP PO SCH ×2 (10:41→21:57)
[2017-10-25] MEDS: SERTRALINE HCL 100 MG TAB PO SCH (10:42)
[2017-10-25] MEDS: SODIUM CHLORIDE 0.9% FLUSH 10 ML FLUSH IV FLUSH SCH ×2 (10:42→21:59)
[2017-10-25] MEDS: DOCUSATE SODIUM 50 MG/SENNA 8.6 MG TAB PO SCH ×2 (10:42→21:58)
--- NOTE | 2017-10-25 11:18 | HHI.PR ---
Subjective Remarks in no acute distress. clinically no change. Objective Vitals Vital Signs Date Time Temp Pulse Resp B/P (MAP) Pulse Ox O2 Delivery O2 Flow Rate FiO2 10/25/17 08:21 97.8 65 20 95/56 (69) 97 10/25/17 04:00 98.3 81 18 134/64 (87) 97 10/25/17 00:00 97.0 93 18 130/81 (97) 96 10/24/17 20:00 97.8 78 18 104/73 (83) 95 10/24/17 16:00 97.9 68 16 106/71 (83) 96 10/24/17 12:00 97.7 76 16 112/74 (87) 94 I/O 10/24/17 10/24/17 10/24/17 10/25/17 10/25/17 10/25/17 06:59 14:59 22:59 06:59 14:59 22:59 Intake Total 720 ml 240 ml Balance 720 ml 240 ml Intake Oral 720 ml 240 ml # Voids 5 3 6 # Bowel Movements 1 1 Result Diagram: 10/25/17 0637 Imaging Last Impressions Wrist MRI 10/05/17 0000 Signed Impressions: Service Date/Time: Thursday, October 05, 2017 12:00 - CONCLUSION: 1. No evidence of osteomyelitis. 2. Effusion in the proximal carpal row and in the radiocarpal joint. Fermin Duggan MD Upper Extremity Ultrasound 10/03/17 0000 Signed Impressions: Service Date/Time: Monday, October 02, 2017 14:57 - CONCLUSION: 1. Negative for deep venous thrombosis right upper extremity. Fermin Duggan MD Wrist X-Ray 10/02/17 0000 Signed Impressions: Service Date/Time: Monday, October 02, 2017 10:18 - CONCLUSION: Unremarkable exam. No significant change compared to the prior study. Wade Butler MD Renal Ultrasound 09/24/17 0000 Signed Impressions: Service Date/Time: Sunday, September 24, 2017 09:53 - CONCLUSION: Negative for stone or obstruction. Silvestre Iniguez MD FACR Head CT 08/28/17 0000 Signed Impressions: Service Date/Time: Monday, August 28, 2017 06:05 - CONCLUSION: 1. No acute intracranial hemorrhage. 2. Stable diffuse bilateral cortical atrophy. 3. No significant change compared to the prior exam. Wade Butler MD Cervical Spine CT 08/28/17 0000 Signed Impressions: Service Date/Time: Monday, August 28, 2017 06:08 - CONCLUSION: 1. No acute bony fracture. 2. Stable diffuse primary degenerative changes involving the cervical spine. 3. No new or significant changes. Wade Butler MD Objective Remarks GENERAL: This is a well-nourished, well-developed patient, in no apparent distress. CARDIOVASCULAR: Regular rate and regular rhythm without murmurs, gallops, or rubs. RESPIRATORY: Clear to auscultation. Breath sounds equal bilaterally. No wheezes , rales, or rhonchi. GASTROINTESTINAL: Abdomen soft, non-tender, nondistended. Normal, active bowel sounds MUSCULOSKELETAL: Extremities without clubbing, cyanosis, or edema. NEURO: awake and alert Procedures None Medications and IVs Inpatient Medications Acetaminophen (Tylenol) 650 mg Q4H PRN PO FEVER Last administered on 10/13/17at 20:33; Start 09/23/17 at 09:45 Acetaminophen/ Hydrocodone Bitart ([place] 5-325 Mg) 1 tab Q6H PRN PO pain 1-5 Last administered on 10/25/17at 10:41; Start 10/02/17 at 08:30 Albuterol Sulfate (Albuterol Neb) 1.25 mg Q6HR NEB NEB Last administered on at 21:46; Start 08/30/17 at 11:15; Stop 09/03/17 at 11:14; Status DC Bisacodyl (Dulcolax Supp) 10 mg DAILY PRN RECTAL SEVERE CONSITIPATION; Start at 17:00 Clonidine (Catapres) 0.1 mg Q6H PRN PO SBP> OR = 170, DBP> OR = 100 Last administered on 09/09/17at 16:13; Start 08/29/17 at 18:30 Diphenhydramine HCl (Benadryl Inj) 25 mg ONCE ONCE IM Last administered on at 02:43; Start 08/28/17 at 02:30; Stop 08/28/17 at 02:31; Status DC Divalproex Sodium (Depakote Er) 1,000 mg HS PO Last administered on 10/24/17at 22:00; Start 08/28/17 at 21:00 Enoxaparin Sodium (Lovenox Inj) 30 mg Q24H SQ Last administered on 10/24/17at 12 :57; Start 09/25/17 at 12:00 Haloperidol Lactate (Haldol Inj) 2 mg ONCE ONCE IM Last administered on at 13:50; Start 08/28/17 at 13:30; Stop 08/28/17 at 13:31; Status DC Heparin Sodium (Porcine) (Heparin Inj) 5,000 units Q12H SQ Last administered on 09/23/17at 06:14; Start 08/28/17 at 18:00; Stop 09/25/17 at 10:57; Status DC Hydroxyzine HCl (Atarax) 50 mg Q6HR PRN PO ANXIETY Last administered on at 08:12; Start 08/28/17 at 17:15 Lactic Acid (Lac-Hydrin 12% Lotion) 1 applic BID TOPICAL ; Start 10/21/17 at 21: 00; Stop 10/21/17 at 21:00; Status DC Lactulose (Lactulose Liq) 30 ml DAILY PRN PO SEVERE CONSITIPATION; Start at 17:00 Levetriacetam (Keppra) 1,500 mg Q12HR PO Last administered on 10/25/17at 10:41; Start 08/28/17 at 21:00 Levofloxacin (Levaquin) 500 mg DAILY PO Last administered on 10/14/17at 09:08; Start 09/26/17 at 09:00; Stop 10/14/17 at 09:24; Status DC Levofloxacin/ Dextrose 100 ml @ 100 mls/hr Q24H IV Last administered on at 14:26; Start 09/23/17 at 15:00; Stop 09/25/17 at 18:19; Status DC Lorazepam (Ativan Inj) 2 mg ONCE ONCE IM Last administered on 08/28/17at 05:48 ; Start 08/28/17 at 05:45; Stop 08/28/17 at 05:46; Status DC Magnesium Hydroxide (Milk Of Magnesia Liq) 30 ml Q12H PRN PO Mild constipation Last administered on 10/12/17at 20:39; Start 08/28/17 at 17:00 Multivitamins (Theragran) 1 tab DAILY PO Last administered on 10/25/17at 10:41; Start 10/08/17 at 09:00 Naloxone HCl (Narcan Inj) 0.4 mg UNSCH PRN IV PUSH SEE LABEL COMMENTS; Start at 17:00 Ondansetron HCl (Zofran Inj) 4 mg Q6H PRN IVP NAUSEA OR VOMITING; Start at 17:00 Phenazopyridine HCl (Pyridium) 200 mg Q8HR PO Last administered on 09/25/17at 05 :54; Start 09/23/17 at 14:15; Stop 09/25/17 at 11:01; Status DC Potassium Chloride/Dextrose/ Sod Cl 1,000 ml @ 75 mls/hr [id number] IV Last administered on 09/25/17at 05:58; Start 09/23/17 at 14:15; Stop 09/25/17 at 10:57 ; Status DC Potassium Bicarb/ Potassium Chloride (K-Lyte Cl Eff) 50 meq ONCE ONCE PO Last administered on 08/28/17at 18:09; Start 08/28/17 at 17:00; Stop 08/28/17 at 17:24; Status DC Potassium Chloride 100 ml @ 100 mls/hr Q1H IV Last administered on 08/30/17at 12:45; Start 08/30/17 at 09:45; Stop 08/30/17 at 13:44; Status DC Potassium Chloride (KCl) 30 meq ONCE ONCE PO Last administered on 08/30/17at 10 :31; Start 08/30/17 at 09:45; Stop 08/30/17 at 09:55; Status DC Prednisone (Deltasone) 30 mg DAILY PO Last administered on 09/21/17at 10:00; Start 09/10/17 at 09:00; Stop 09/21/17 at 11:50; Status DC Quetiapine Fumarate (SEROquel) 75 mg HS PO Last administered on 10/24/17at 22:00 ; Start 08/29/17 at 21:00 Senna/Docusate Sodium (Leanne-Colace) 1 tab BID PO Last administered on at 22:00; Start 08/28/17 at 21:00 Sennosides (Senokot) 17.2 mg Q12H PRN PO Moderate constipation; Start 08/28/17 at 17:00 Sertraline HCl (Zoloft) 200 mg DAILY PO Last administered on 10/25/17at 10:42; Start 08/29/17 at 09:00 Sodium Chloride 1,000 ml @ 75 mls/hr [id number] IV Last administered on 10/15/17at 02:40; Start 10/12/17 at 09:45; Stop 10/15/17 at 10:55; Status DC Sodium Chloride (NS Flush) 2 ml BID IV FLUSH Last administered on 10/25/17at 10: 42; Start 08/28/17 at 21:00 Tamsulosin HCl (Flomax) 0.4 mg DAILY PO Last administered on 10/12/17at 08:37; Start 09/24/17 at 10:15; Status Future Hold Tramadol HCl (Ultram) 50 mg Q8H PRN PO pain >5 Last administered on 10/24/17at 08:07; Start 09/27/17 at 21:45 Trazodone HCl (Desyrel) 200 mg HS PO Last administered on 10/24/17at 22:00; Start 08/28/17 at 21:00 A/P Problem List: (1) Encephalopathy ICD Code: G93.40 - Encephalopathy Status: Acute (2) Alcohol-induced mood disorder ICD Code: F10.94 - Alcohol use, unspecified with alcohol-induced mood disorder Status: Acute (3) Debility ICD Code: R53.81 - Other malaise (4) COPD (chronic obstructive pulmonary disease) ICD Code: J44.9 - COPD (chronic obstructive pulmonary disease) Status: Chronic (5) PTSD (post-traumatic stress disorder) ICD Code: F43.10 - Post-traumatic stress disorder, unspecified Assessment and Plan Anorexia - consulted dietitian for calorie count. calorie count shows that the patient doesn't get enough calories- however the patient is refusing PEG placement. - continue with supplements. UTI growing E. Coli Elevated PSA - treated with Levaquin. -Urology consulted for elevated PSA, recommendations appreciated -continue Flomax, repeat UA and PSA on an outpatient basis. Aggressive behavior, encephalopathy: improving the Avelar act was lifted by psychiatry Continue Seroquel, sertraline. Currently on lactulose. Right wrist pain and swelling, improving. X ray reviewed no fracture. US negative. Pain control with norco as need pr pain scale. orthopedic doctor for consulted recommended MRI. MRI 10/05/17 of right wrist reviewed negative. continue with pain control. Thrombocytopenia: -Chronic, at baseline. PLTs stable, H&H stable with no reported bleeding. Seizure disorder: -Continue Depakote, Keppra. Seizure precautions. PTSD, personality disorder: -evaluated by psych. -Continue Seroquel. Trazodone daily at bedtime. COPD: - currently stable on room air. Generalized weakness: - Patient has chronic debility likely secondary to chronic alcohol abuse. - Continue PT DVT prophylaxis: Lovenox. Discharge Planning dc planning in progress. Rob Kwon MD Oct 25, 2017 11:18
[2017-10-25] MEDS: ENOXAPARIN SODIUM 30 MG/0.3 ML SYRINGE SQ SCH (12:19)
--- NOTE | 2017-10-25 13:53 | HHI.HCPN ---
Met with Mr. Peters for ongoing palliative care support. Upon arrival into his room, 1517 he was lying in bed, awake, alert. He is able to make his needs known , appropriate in conversation although at times he answers questions inappropriately or changes the subject without answering questions. I believe this is attributed to his difficulty hearing. Mr. Peters is primarily focused on a procedure he reports to be having today. He is also focused on where he will be going after discharging from the hospital. Discusses most of his concern is with the amount of money he will be able to keep if he goes to a facility. He appears to be in agreement with rehab placement after this hospitalization. Attempted to gently discuss Community DNR but he states he wishes to know where he will be going. He confirms DNR status but declines completing the Community DNR Order at this time. Palliative care will continue to follow throughout hospitalization. Will continue to attempt to get Community DNR order signed prior to discharge to ensure he wishes are honored after the hospitalization. Gem Ross, MERCEDES Oct 25, 2017 13:52
[2017-10-25] MEDS: traZODone HCL 100 MG TAB PO SCH (21:58)
[2017-10-25] MEDS: QUEtiapine FUMARATE 25 MG TAB PO SCH (21:58)
[2017-10-25] MEDS: traMADol HCL 50 MG TAB PO PRN (21:59)
[2017-10-25] MEDS: DIVALPROEX SODIUM E.R. 500 MG TAB PO SCH (21:59)
[2017-10-26] VITALS (8 sets, daily range): BP systolic 86–113; BP diastolic 50–75; PULSE 57–91; RESP 17–21; TEMP 97.4–98.1; O2SAT 91–98
[2017-10-26] MEDS: SERTRALINE HCL 100 MG TAB PO SCH (08:48)
[2017-10-26] MEDS: traMADol HCL 50 MG TAB PO PRN ×2 (08:48→21:40)
[2017-10-26] MEDS: LACTULOSE SYRUP 20 GM/30 ML CUP PO SCH ×2 (08:48→21:39)
[2017-10-26] MEDS: DOCUSATE SODIUM 50 MG/SENNA 8.6 MG TAB PO SCH ×2 (08:49→21:40)
[2017-10-26] MEDS: SODIUM CHLORIDE 0.9% FLUSH 10 ML FLUSH IV FLUSH SCH ×2 (08:49→21:41)
[2017-10-26] MEDS: MULTIVITAMIN TAB PO SCH (08:49)
[2017-10-26] MEDS: levETIRAcetam 500 MG TAB PO SCH ×2 (08:49→21:39)
--- NOTE | 2017-10-26 11:15 | HHI.PR ---
Subjective Remarks in no acute distress. clinically the same. BP trend noted. Objective Vitals Vital Signs Date Time Temp Pulse Resp B/P (MAP) Pulse Ox O2 Delivery O2 Flow Rate FiO2 10/26/17 07:47 97.5 59 17 86/54 (65) 94 10/26/17 05:36 57 20 93/57 (69) 98 10/26/17 05:20 98.0 60 20 86/50 (62) 94 10/26/17 01:23 97.4 91 21 111/68 (82) 93 10/25/17 23:27 98.7 72 20 93/55 (68) 100 10/25/17 22:59 18 10/25/17 22:11 97.3 70 21 100/63 (75) 94 10/25/17 17:03 97.8 78 20 133/65 (87) 93 10/25/17 13:20 98.1 69 20 103/63 (76) 95 I/O 10/25/17 10/25/17 10/25/17 10/26/17 10/26/17 10/26/17 07:00 15:00 23:00 07:00 15:00 23:00 Intake Total 240 ml Balance 240 ml Intake Oral 240 ml # Voids 6 2 # Bowel Movements 1 Result Diagram: 10/25/17 0637 Imaging Last Impressions Wrist MRI 10/05/17 0000 Signed Impressions: Service Date/Time: Thursday, October 05, 2017 12:00 - CONCLUSION: 1. No evidence of osteomyelitis. 2. Effusion in the proximal carpal row and in the radiocarpal joint. Fermin Duggan MD Upper Extremity Ultrasound 10/03/17 0000 Signed Impressions: Service Date/Time: Monday, October 02, 2017 14:57 - CONCLUSION: 1. Negative for deep venous thrombosis right upper extremity. Fermin Duggan MD Wrist X-Ray 10/02/17 0000 Signed Impressions: Service Date/Time: Monday, October 02, 2017 10:18 - CONCLUSION: Unremarkable exam. No significant change compared to the prior study. Wade Butler MD Renal Ultrasound 09/24/17 0000 Signed Impressions: Service Date/Time: Sunday, September 24, 2017 09:53 - CONCLUSION: Negative for stone or obstruction. Silvestre Iniguez MD FACR Head CT 08/28/17 0000 Signed Impressions: Service Date/Time: Monday, August 28, 2017 06:05 - CONCLUSION: 1. No acute intracranial hemorrhage. 2. Stable diffuse bilateral cortical atrophy. 3. No significant change compared to the prior exam. Wade Butler MD Cervical Spine CT 08/28/17 0000 Signed Impressions: Service Date/Time: Monday, August 28, 2017 06:08 - CONCLUSION: 1. No acute bony fracture. 2. Stable diffuse primary degenerative changes involving the cervical spine. 3. No new or significant changes. Wade Butler MD Objective Remarks GENERAL: This is a well-nourished, well-developed patient, in no apparent distress. CARDIOVASCULAR: Regular rate and regular rhythm without murmurs, gallops, or rubs. RESPIRATORY: Clear to auscultation. Breath sounds equal bilaterally. No wheezes , rales, or rhonchi. GASTROINTESTINAL: Abdomen soft, non-tender, nondistended. Normal, active bowel sounds MUSCULOSKELETAL: Extremities without clubbing, cyanosis, or edema. NEURO: awake and alert Procedures None Medications and IVs Inpatient Medications Acetaminophen (Tylenol) 650 mg Q4H PRN PO FEVER Last administered on 10/13/17at 20:33; Start 09/23/17 at 09:45 Acetaminophen/ Hydrocodone Bitart ([place] 5-325 Mg) 1 tab Q6H PRN PO pain 1-5 Last administered on 10/25/17at 10:41; Start 10/02/17 at 08:30 Albuterol Sulfate (Albuterol Neb) 1.25 mg Q6HR NEB NEB Last administered on at 21:46; Start 08/30/17 at 11:15; Stop 09/03/17 at 11:14; Status DC Bisacodyl (Dulcolax Supp) 10 mg DAILY PRN RECTAL SEVERE CONSITIPATION; Start at 17:00 Clonidine (Catapres) 0.1 mg Q6H PRN PO SBP> OR = 170, DBP> OR = 100 Last administered on 09/09/17at 16:13; Start 08/29/17 at 18:30 Diphenhydramine HCl (Benadryl Inj) 25 mg ONCE ONCE IM Last administered on at 02:43; Start 08/28/17 at 02:30; Stop 08/28/17 at 02:31; Status DC Divalproex Sodium (Depakote Er) 1,000 mg HS PO Last administered on 10/25/17at 21:59; Start 08/28/17 at 21:00 Enoxaparin Sodium (Lovenox Inj) 30 mg Q24H SQ Last administered on 10/25/17at 12 :19; Start 09/25/17 at 12:00 Haloperidol Lactate (Haldol Inj) 2 mg ONCE ONCE IM Last administered on at 13:50; Start 08/28/17 at 13:30; Stop 08/28/17 at 13:31; Status DC Heparin Sodium (Porcine) (Heparin Inj) 5,000 units Q12H SQ Last administered on 09/23/17at 06:14; Start 08/28/17 at 18:00; Stop 09/25/17 at 10:57; Status DC Hydroxyzine HCl (Atarax) 50 mg Q6HR PRN PO ANXIETY Last administered on at 08:12; Start 08/28/17 at 17:15 Lactic Acid (Lac-Hydrin 12% Lotion) 1 applic BID TOPICAL ; Start 10/21/17 at 21: 00; Stop 10/21/17 at 21:00; Status DC Lactulose (Lactulose Liq) 30 ml DAILY PRN PO SEVERE CONSITIPATION; Start at 17:00 Levetriacetam (Keppra) 1,500 mg Q12HR PO Last administered on 10/26/17at 08:49; Start 08/28/17 at 21:00 Levofloxacin (Levaquin) 500 mg DAILY PO Last administered on 10/14/17at 09:08; Start 09/26/17 at 09:00; Stop 10/14/17 at 09:24; Status DC Levofloxacin/ Dextrose 100 ml @ 100 mls/hr Q24H IV Last administered on at 14:26; Start 09/23/17 at 15:00; Stop 09/25/17 at 18:19; Status DC Lorazepam (Ativan Inj) 2 mg ONCE ONCE IM Last administered on 08/28/17at 05:48 ; Start 08/28/17 at 05:45; Stop 08/28/17 at 05:46; Status DC Magnesium Hydroxide (Milk Of Magnesia Liq) 30 ml Q12H PRN PO Mild constipation Last administered on 10/12/17at 20:39; Start 08/28/17 at 17:00 Multivitamins (Theragran) 1 tab DAILY PO Last administered on 10/26/17at 08:49; Start 10/08/17 at 09:00 Naloxone HCl (Narcan Inj) 0.4 mg UNSCH PRN IV PUSH SEE LABEL COMMENTS; Start at 17:00 Ondansetron HCl (Zofran Inj) 4 mg Q6H PRN IVP NAUSEA OR VOMITING; Start at 17:00 Phenazopyridine HCl (Pyridium) 200 mg Q8HR PO Last administered on 09/25/17at 05 :54; Start 09/23/17 at 14:15; Stop 09/25/17 at 11:01; Status DC Potassium Chloride/Dextrose/ Sod Cl 1,000 ml @ 75 mls/hr [id number] IV Last administered on 09/25/17at 05:58; Start 09/23/17 at 14:15; Stop 09/25/17 at 10:57 ; Status DC Potassium Bicarb/ Potassium Chloride (K-Lyte Cl Eff) 50 meq ONCE ONCE PO Last administered on 08/28/17at 18:09; Start 08/28/17 at 17:00; Stop 08/28/17 at 17:24; Status DC Potassium Chloride 100 ml @ 100 mls/hr Q1H IV Last administered on 08/30/17at 12:45; Start 08/30/17 at 09:45; Stop 08/30/17 at 13:44; Status DC Potassium Chloride (KCl) 30 meq ONCE ONCE PO Last administered on 08/30/17at 10 :31; Start 08/30/17 at 09:45; Stop 08/30/17 at 09:55; Status DC Prednisone (Deltasone) 30 mg DAILY PO Last administered on 09/21/17at 10:00; Start 09/10/17 at 09:00; Stop 09/21/17 at 11:50; Status DC Quetiapine Fumarate (SEROquel) 75 mg HS PO Last administered on 10/25/17at 21:58 ; Start 08/29/17 at 21:00 Senna/Docusate Sodium (Leanne-Colace) 1 tab BID PO Last administered on at 21:58; Start 08/28/17 at 21:00 Sennosides (Senokot) 17.2 mg Q12H PRN PO Moderate constipation; Start 08/28/17 at 17:00 Sertraline HCl (Zoloft) 200 mg DAILY PO Last administered on 10/26/17at 08:48; Start 08/29/17 at 09:00 Sodium Chloride 1,000 ml @ 75 mls/hr [id number] IV Last administered on 10/15/17at 02:40; Start 10/12/17 at 09:45; Stop 10/15/17 at 10:55; Status DC Sodium Chloride (NS Flush) 2 ml BID IV FLUSH Last administered on 10/26/17at 08: 49; Start 08/28/17 at 21:00 Tamsulosin HCl (Flomax) 0.4 mg DAILY PO Last administered on 10/12/17at 08:37; Start 09/24/17 at 10:15; Status Future Hold Tramadol HCl (Ultram) 50 mg Q8H PRN PO pain >5 Last administered on 10/26/17at 08:48; Start 09/27/17 at 21:45 Trazodone HCl (Desyrel) 200 mg HS PO Last administered on 10/25/17at 21:58; Start 08/28/17 at 21:00 A/P Problem List: (1) Encephalopathy ICD Code: G93.40 - Encephalopathy Status: Acute (2) Alcohol-induced mood disorder ICD Code: F10.94 - Alcohol use, unspecified with alcohol-induced mood disorder Status: Acute (3) Debility ICD Code: R53.81 - Other malaise (4) COPD (chronic obstructive pulmonary disease) ICD Code: J44.9 - COPD (chronic obstructive pulmonary disease) Status: Chronic (5) PTSD (post-traumatic stress disorder) ICD Code: F43.10 - Post-traumatic stress disorder, unspecified Assessment and Plan Anorexia - consulted dietitian for calorie count. calorie count shows that the patient doesn't get enough calories- however the patient is refusing PEG placement. - continue with supplements. UTI growing E. Coli Elevated PSA - treated with Levaquin. -Urology consulted for elevated PSA, recommendations appreciated -continue Flomax, repeat UA and PSA on an outpatient basis. Aggressive behavior, encephalopathy: improving the Avelar act was lifted by psychiatry Continue Seroquel, sertraline. Currently on lactulose. Right wrist pain and swelling, improving. X ray reviewed no fracture. US negative. Pain control with norco as need pr pain scale. orthopedic doctor for consulted recommended MRI. MRI 10/05/17 of right wrist reviewed negative. continue with pain control. Thrombocytopenia: -Chronic, at baseline. PLTs stable, H&H stable with no reported bleeding. Seizure disorder: -Continue Depakote, Keppra. Seizure precautions. PTSD, personality disorder: -evaluated by psych. -Continue Seroquel. Trazodone daily at bedtime. COPD: - currently stable on room air. Generalized weakness: - Patient has chronic debility likely secondary to chronic alcohol abuse. - Continue PT low-normal BP's- will consider IV fluid if BP drops further or becomes symptomatic. DVT prophylaxis: Lovenox. Discharge Planning dc planning in progress. Rob Kwon MD Oct 26, 2017 11:15
[2017-10-26] MEDS: ENOXAPARIN SODIUM 30 MG/0.3 ML SYRINGE SQ SCH (12:55)
[2017-10-26] MEDS: ACETAMINOPHEN/HYDROcodone 325 MG/5 MG TAB PO PRN (12:56)
[2017-10-26] MEDS: QUEtiapine FUMARATE 25 MG TAB PO SCH (21:39)
[2017-10-26] MEDS: traZODone HCL 100 MG TAB PO SCH (21:40)
[2017-10-26] MEDS: DIVALPROEX SODIUM E.R. 500 MG TAB PO SCH (21:40)
[2017-10-27] VITALS: BP 122/78; PULSE 65; RESP 18; TEMP 97.7; O2SAT 93
[2017-10-27 04:00] VITALS: BP 101/69; PULSE 95; RESP 18; TEMP 97.3; O2SAT 95
[2017-10-27] MEDS: traMADol HCL 50 MG TAB PO PRN ×2 (05:56→14:36)
[2017-10-27 07:37] VITALS: BP 90/59; PULSE 66; RESP 17; TEMP 98.2; O2SAT 96
[2017-10-27] MEDS: LACTULOSE SYRUP 20 GM/30 ML CUP PO SCH ×2 (07:56→21:40)
[2017-10-27] MEDS: SERTRALINE HCL 100 MG TAB PO SCH (07:57)
[2017-10-27] MEDS: SODIUM CHLORIDE 0.9% FLUSH 10 ML FLUSH IV FLUSH SCH ×2 (07:57→21:47)
[2017-10-27] MEDS: MULTIVITAMIN TAB PO SCH (07:57)
[2017-10-27] MEDS: levETIRAcetam 500 MG TAB PO SCH ×2 (07:57→21:42)
[2017-10-27] MEDS: DOCUSATE SODIUM 50 MG/SENNA 8.6 MG TAB PO SCH ×2 (07:57→21:41)
--- NOTE | 2017-10-27 10:50 | HHI.PR ---
Subjective Remarks in no acute distress. walked with the walker today. no new complaints. Objective Vitals Vital Signs Date Time Temp Pulse Resp B/P (MAP) Pulse Ox O2 Delivery O2 Flow Rate FiO2 10/27/17 07:37 98.2 66 17 90/59 (69) 96 10/27/17 07:16 16 10/27/17 04:00 97.3 95 18 101/69 (80) 95 10/27/17 00:00 97.7 65 18 122/78 (93) 93 10/26/17 20:00 97.7 63 19 113/71 (85) 96 10/26/17 15:52 98.1 66 18 95/71 (79) 94 10/26/17 11:52 98.0 64 18 111/75 (87) 91 I/O 10/26/17 10/26/17 10/26/17 10/27/17 10/27/17 10/27/17 07:00 15:00 23:00 07:00 15:00 23:00 Output Total 0 ml Balance 0 ml Output Urine Total 0 ml # Voids 1 2 # Bowel Movements 1 0 Result Diagram: 10/25/17 0637 Imaging Last Impressions Wrist MRI 10/05/17 0000 Signed Impressions: Service Date/Time: Thursday, October 05, 2017 12:00 - CONCLUSION: 1. No evidence of osteomyelitis. 2. Effusion in the proximal carpal row and in the radiocarpal joint. Fermin Duggan MD Upper Extremity Ultrasound 10/03/17 0000 Signed Impressions: Service Date/Time: Monday, October 02, 2017 14:57 - CONCLUSION: 1. Negative for deep venous thrombosis right upper extremity. Fermin Duggan MD Wrist X-Ray 10/02/17 0000 Signed Impressions: Service Date/Time: Monday, October 02, 2017 10:18 - CONCLUSION: Unremarkable exam. No significant change compared to the prior study. Wade Butler MD Renal Ultrasound 09/24/17 0000 Signed Impressions: Service Date/Time: Sunday, September 24, 2017 09:53 - CONCLUSION: Negative for stone or obstruction. Silvestre Iniguez MD FACR Head CT 08/28/17 0000 Signed Impressions: Service Date/Time: Monday, August 28, 2017 06:05 - CONCLUSION: 1. No acute intracranial hemorrhage. 2. Stable diffuse bilateral cortical atrophy. 3. No significant change compared to the prior exam. Wade Butler MD Cervical Spine CT 08/28/17 0000 Signed Impressions: Service Date/Time: Monday, August 28, 2017 06:08 - CONCLUSION: 1. No acute bony fracture. 2. Stable diffuse primary degenerative changes involving the cervical spine. 3. No new or significant changes. Wade Butler MD Objective Remarks GENERAL: This is a well-nourished, well-developed patient, in no apparent distress. CARDIOVASCULAR: Regular rate and regular rhythm without murmurs, gallops, or rubs. RESPIRATORY: Clear to auscultation. Breath sounds equal bilaterally. No wheezes , rales, or rhonchi. GASTROINTESTINAL: Abdomen soft, non-tender, nondistended. Normal, active bowel sounds MUSCULOSKELETAL: Extremities without clubbing, cyanosis, or edema. NEURO: awake and alert Procedures None Medications and IVs Inpatient Medications Acetaminophen (Tylenol) 650 mg Q4H PRN PO FEVER Last administered on 10/13/17at 20:33; Start 09/23/17 at 09:45 Acetaminophen/ Hydrocodone Bitart ([place] 5-325 Mg) 1 tab Q6H PRN PO pain 1-5 Last administered on 10/26/17at 12:56; Start 10/02/17 at 08:30 Albuterol Sulfate (Albuterol Neb) 1.25 mg Q6HR NEB NEB Last administered on at 21:46; Start 08/30/17 at 11:15; Stop 09/03/17 at 11:14; Status DC Bisacodyl (Dulcolax Supp) 10 mg DAILY PRN RECTAL SEVERE CONSITIPATION; Start at 17:00 Clonidine (Catapres) 0.1 mg Q6H PRN PO SBP> OR = 170, DBP> OR = 100 Last administered on 09/09/17at 16:13; Start 08/29/17 at 18:30 Diphenhydramine HCl (Benadryl Inj) 25 mg ONCE ONCE IM Last administered on at 02:43; Start 08/28/17 at 02:30; Stop 08/28/17 at 02:31; Status DC Divalproex Sodium (Depakote Er) 1,000 mg HS PO Last administered on 10/26/17at 21:40; Start 08/28/17 at 21:00 Enoxaparin Sodium (Lovenox Inj) 30 mg Q24H SQ Last administered on 10/26/17at 12 :55; Start 09/25/17 at 12:00 Haloperidol Lactate (Haldol Inj) 2 mg ONCE ONCE IM Last administered on at 13:50; Start 08/28/17 at 13:30; Stop 08/28/17 at 13:31; Status DC Heparin Sodium (Porcine) (Heparin Inj) 5,000 units Q12H SQ Last administered on 09/23/17at 06:14; Start 08/28/17 at 18:00; Stop 09/25/17 at 10:57; Status DC Hydroxyzine HCl (Atarax) 50 mg Q6HR PRN PO ANXIETY Last administered on at 08:12; Start 08/28/17 at 17:15 Lactic Acid (Lac-Hydrin 12% Lotion) 1 applic BID TOPICAL ; Start 10/21/17 at 21: 00; Stop 10/21/17 at 21:00; Status DC Lactulose (Lactulose Liq) 30 ml DAILY PRN PO SEVERE CONSITIPATION; Start at 17:00 Levetriacetam (Keppra) 1,500 mg Q12HR PO Last administered on 10/27/17at 07:57; Start 08/28/17 at 21:00 Levofloxacin (Levaquin) 500 mg DAILY PO Last administered on 10/14/17at 09:08; Start 09/26/17 at 09:00; Stop 10/14/17 at 09:24; Status DC Levofloxacin/ Dextrose 100 ml @ 100 mls/hr Q24H IV Last administered on at 14:26; Start 09/23/17 at 15:00; Stop 09/25/17 at 18:19; Status DC Lorazepam (Ativan Inj) 2 mg ONCE ONCE IM Last administered on 08/28/17at 05:48 ; Start 08/28/17 at 05:45; Stop 08/28/17 at 05:46; Status DC Magnesium Hydroxide (Milk Of Magnesia Liq) 30 ml Q12H PRN PO Mild constipation Last administered on 10/12/17at 20:39; Start 08/28/17 at 17:00 Multivitamins (Theragran) 1 tab DAILY PO Last administered on 10/27/17at 07:57; Start 10/08/17 at 09:00 Naloxone HCl (Narcan Inj) 0.4 mg UNSCH PRN IV PUSH SEE LABEL COMMENTS; Start at 17:00 Ondansetron HCl (Zofran Inj) 4 mg Q6H PRN IVP NAUSEA OR VOMITING; Start at 17:00 Phenazopyridine HCl (Pyridium) 200 mg Q8HR PO Last administered on 09/25/17at 05 :54; Start 09/23/17 at 14:15; Stop 09/25/17 at 11:01; Status DC Potassium Chloride/Dextrose/ Sod Cl 1,000 ml @ 75 mls/hr [id number] IV Last administered on 09/25/17at 05:58; Start 09/23/17 at 14:15; Stop 09/25/17 at 10:57 ; Status DC Potassium Bicarb/ Potassium Chloride (K-Lyte Cl Eff) 50 meq ONCE ONCE PO Last administered on 08/28/17at 18:09; Start 08/28/17 at 17:00; Stop 08/28/17 at 17:24; Status DC Potassium Chloride 100 ml @ 100 mls/hr Q1H IV Last administered on 08/30/17at 12:45; Start 08/30/17 at 09:45; Stop 08/30/17 at 13:44; Status DC Potassium Chloride (KCl) 30 meq ONCE ONCE PO Last administered on 08/30/17at 10 :31; Start 08/30/17 at 09:45; Stop 08/30/17 at 09:55; Status DC Prednisone (Deltasone) 30 mg DAILY PO Last administered on 09/21/17at 10:00; Start 09/10/17 at 09:00; Stop 09/21/17 at 11:50; Status DC Quetiapine Fumarate (SEROquel) 75 mg HS PO Last administered on 10/26/17at 21:39 ; Start 08/29/17 at 21:00 Senna/Docusate Sodium (Leanne-Colace) 1 tab BID PO Last administered on at 07:57; Start 08/28/17 at 21:00 Sennosides (Senokot) 17.2 mg Q12H PRN PO Moderate constipation; Start 08/28/17 at 17:00 Sertraline HCl (Zoloft) 200 mg DAILY PO Last administered on 10/27/17at 07:57; Start 08/29/17 at 09:00 Sodium Chloride 1,000 ml @ 75 mls/hr [id number] IV Last administered on 10/15/17at 02:40; Start 10/12/17 at 09:45; Stop 10/15/17 at 10:55; Status DC Sodium Chloride (NS Flush) 2 ml BID IV FLUSH Last administered on 10/27/17at 07: 57; Start 08/28/17 at 21:00 Tamsulosin HCl (Flomax) 0.4 mg DAILY PO Last administered on 10/12/17at 08:37; Start 09/24/17 at 10:15; Status Future Hold Tramadol HCl (Ultram) 50 mg Q8H PRN PO pain >5 Last administered on 10/27/17at 05:56; Start 09/27/17 at 21:45 Trazodone HCl (Desyrel) 200 mg HS PO Last administered on 10/26/17at 21:40; Start 08/28/17 at 21:00 A/P Problem List: (1) Encephalopathy ICD Code: G93.40 - Encephalopathy Status: Acute (2) Alcohol-induced mood disorder ICD Code: F10.94 - Alcohol use, unspecified with alcohol-induced mood disorder Status: Acute (3) Debility ICD Code: R53.81 - Other malaise (4) COPD (chronic obstructive pulmonary disease) ICD Code: J44.9 - COPD (chronic obstructive pulmonary disease) Status: Chronic (5) PTSD (post-traumatic stress disorder) ICD Code: F43.10 - Post-traumatic stress disorder, unspecified Assessment and Plan Anorexia - consulted dietitian for calorie count. calorie count shows that the patient doesn't get enough calories- however the patient is refusing PEG placement. - continue with supplements. UTI growing E. Coli Elevated PSA - treated with Levaquin. -Urology consulted for elevated PSA, recommendations appreciated -continue Flomax, repeat UA and PSA on an outpatient basis. Aggressive behavior, encephalopathy: improving the Avelar act was lifted by psychiatry Continue Seroquel, sertraline. Currently on lactulose. Right wrist pain and swelling, improving. X ray reviewed no fracture. US negative. Pain control with norco as need pr pain scale. MRI 10/05/17 of right wrist reviewed negative. continue with pain control. evaluated by ortho. Thrombocytopenia: -Chronic, at baseline. PLTs stable, H&H stable with no reported bleeding. Seizure disorder: -Continue Depakote, Keppra. Seizure precautions. PTSD, personality disorder: -evaluated by psych. -Continue Seroquel. Trazodone daily at bedtime. COPD: - currently stable on room air. Generalized weakness: - Patient has chronic debility likely secondary to chronic alcohol abuse. - Continue PT DVT prophylaxis: Lovenox. Discharge Planning dc planning in progress. Rob Kwon MD Oct 27, 2017 10:50
[2017-10-27 11:32] VITALS: BP 115/71; PULSE 79; RESP 18; TEMP 98.5; O2SAT 94
[2017-10-27] MEDS: ENOXAPARIN SODIUM 30 MG/0.3 ML SYRINGE SQ SCH (11:59)
[2017-10-27 16:04] VITALS: BP 98/58; PULSE 75; RESP 18; TEMP 97.7; O2SAT 94
[2017-10-27 20:00] VITALS: BP 128/78; PULSE 72; RESP 18; TEMP 97.4; O2SAT 95
[2017-10-27] MEDS: traZODone HCL 100 MG TAB PO SCH (21:41)
[2017-10-27] MEDS: QUEtiapine FUMARATE 25 MG TAB PO SCH (21:44)
[2017-10-27] MEDS: DIVALPROEX SODIUM E.R. 500 MG TAB PO SCH (21:44)
[2017-10-28] VITALS (7 sets, daily range): BP systolic 99–127; BP diastolic 58–76; PULSE 56–93; RESP 12–18; TEMP 97.6–98.4; O2SAT 93–96
[2017-10-28] MEDS: DOCUSATE SODIUM 50 MG/SENNA 8.6 MG TAB PO SCH ×2 (08:19→22:18)
[2017-10-28] MEDS: LACTULOSE SYRUP 20 GM/30 ML CUP PO SCH ×2 (08:19→22:12)
[2017-10-28] MEDS: SODIUM CHLORIDE 0.9% FLUSH 10 ML FLUSH IV FLUSH SCH ×2 (08:20→22:20)
[2017-10-28] MEDS: MULTIVITAMIN TAB PO SCH (08:20)
[2017-10-28] MEDS: SERTRALINE HCL 100 MG TAB PO SCH (08:20)
[2017-10-28] MEDS: levETIRAcetam 500 MG TAB PO SCH ×2 (08:20→22:13)
[2017-10-28] MEDS: traMADol HCL 50 MG TAB PO PRN ×2 (08:30→18:08)
[2017-10-28] MEDS: ENOXAPARIN SODIUM 30 MG/0.3 ML SYRINGE SQ SCH (11:32)
--- NOTE | 2017-10-28 11:45 | HHI.HCPN ---
Reason for visit a. To assist with evaluation and management of symptoms including: Pain, decreased oral intake b. To assist medical decision maker(s) with: better understanding of current medical conditions; weighing benefits/burdens of medical treatment options; making medical treatment decisions. Subjective/Interval History Follow up for symptom management and further clarification of goals. Patient seen and examined in his room. Patient is sleeping but easily arousable. Patient denies pain at this time. Patient is explaining that he has been doing very well eating small and frequent meals because he knows that this is important since he is taking medications and he wants to get stronger. No recent intake meal percentages recorded in EMR. No recent labwork. Patient also stated that he is ambulated with his walker a few steps and feels that he is doing better. Patient emphasizing on concentrating more on getting better than wondering what is going to happen to him and where he will be going. Discussed completion and signing of the community DNR, patient is not willing to do so at this time. He reiterated that he still wants to be a DNR. Case management assisting with placement. . Family/friend interactions No family at bedside . Advance Directives Living Will: Never completed Health Care Surrogate: Never completed Durable Power of Harnessmaker Apprentice: Never completed Advance Directive Specifics Health Care Surrogate(s): Health care Surrogate -Significant other-Anna McadamsJwkfomor-[phone] . Objective Vital Signs Date Time Temp Pulse Resp B/P (MAP) Pulse Ox O2 Delivery O2 Flow Rate FiO2 10/28/17 08:00 98.2 64 18 100/58 (72) 96 10/28/17 04:00 97.6 74 18 127/76 (93) 95 10/28/17 00:00 97.8 64 18 99/61 (74) 93 10/27/17 20:00 97.4 72 18 128/78 (95) 95 10/27/17 16:04 97.7 75 18 98/58 (71) 94 10/27/17 15:41 16 10/27/17 11:32 98.5 79 18 115/71 (86) 94 Intake & Output 10/28/17 10/28/17 07:00 19:00 # Voids 3 Physical Exam CONSTITUTIONAL/GENERAL: This is an adequately nourished patient, in no apparent distress. Denies pain TUBES/LINES/DRAINS: SKIN: No jaundice, rashes, or lesions. Ecchymoses on upper extremities. No wounds seen anteriorly. Skin temperature appropriate. Not diaphoretic. HEAD: Atraumatic. Normocephalic. EYES: Pupils equal and round and reactive. Extraocular motions intact. No scleral icterus. No injection or drainage. Fundi not examined. ENT: Hard of Hearing.Nose without bleeding or purulent drainage. NECK: Trachea midline. Supple, nontender. CARDIOVASCULAR: Regular rate and rhythm without murmurs, gallops, or rubs. No JVD. Peripheral pulses symmetric. RESPIRATORY/CHEST: Symmetric, unlabored respirations. Clear to auscultation. Breath sounds equal bilaterally. No wheezes, rales, or rhonchi. GASTROINTESTINAL: Abdomen soft, non-tender, nondistended. No guarding. Bowel sounds present. GENITOURINARY: Without palpable bladder distension. MUSCULOSKELETAL: Extremities without clubbing, cyanosis, or edema. No joint tenderness or effusion noted. No calf tenderness. No mottling or clubbing. NEUROLOGICAL: Sleeping but easily arousable. Motor and sensory grossly within normal limits. Follows commands. Moves all extremities. PSYCHIATRIC: No obvious anxiety/depression. no apparent hallucinations or other psychotic thought process. . Diagnostic Tests Result Diagram: 10/25/17 0637 Assessment and Plan Disease Oriented Problem List: (1) Alcohol-induced mood disorder (2) PTSD (post-traumatic stress disorder) (3) Bipolar disorder (4) COPD (chronic obstructive pulmonary disease) Symptom Scale: (1) Decreased oral intake 0-10 Scale: Unable to quantify (2) Pain 0-10 Scale: Unable to quantify Comment: Multifactorial. c/o pain to Right shoulder and wrist. Wrist MRI on revealed effusion in the proximal carpal row and in the radiocarpal joint and no osteomyelitis. . Pertinent Non-Medical Issues Psychosocial:Patient was born and raised in [place]. Patient served in the [employer] during the [place] war for 6 years. He moved to [place] in the 1970s. Patient was and once. He has 2 sons whom he states he has not spoken to in about 10 years. Patient stated that the last he heard from them was about 10 years ago and at that time they were in [place], [place]. 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 Important Contacts Health care Surrogate -Significant other-Anna McadamsRkhdligc-[phone] Son-Pardeep Peters-[phone] Son-Deon Heath Marker- Father- Edy Peters Gr-[phone] [place] [employer] [facility]- Payee- Dianelys Chambers - [phone] . Prognosis Mr. Valenzuela is a 62-year-old with a past medical history of bipolar disorder, seizure disorder, gout, chronic low back pain, COPD, hypertension, chronic alcoholic pancreatitis, hepatitis B and C, dyslipidemia, and alcoholism. Patient was brought to the ER from an [facility] by EMS on August 28, 2017 to be evaluated for altered mental status, behavioral disturbances and a witnessed fall. Clinical course complicated with decreased oral intake, hypotension, urinary tract infection. . Code Status: No Code Plan PLAN: Legal decision maker: Patient is capable of participating in making his own medical decisions. In the event that he is incapacitated, patient designated his significant other Erika Mcadams to serve as his HCS. Goals: Remain aggressive short of no code. CODE STATUS: No Code DNR-offered completion of community DNR, patient not willing to sign at this time. Discussed completion and signing of the community DNR, patient is not willing to do so at this time. He reiterated that he still wants to be a DNR. SYMPTOMS: * Pain: Multifactorial. Pain can be from bedbound, and other source for pain could be IV. Patient also had complaints of pain to his right wrist. Wrist MRI on 10/05 revealed effusion in the proximal carpal row and in the radiocarpal joint and no osteomyelitis. Pain currently managed with Hydrocodone/ acetaminophen 5/325 and Tramadol. Sparingly needing pain medication. His last hydrocodone dose was given on 10/21/17 and last tramadol was administered on . No recommendations at this time. * Decreased oral intake: Patient has been refusing his meals. Patient stated that the day he did not eat he was nauseated but now he has started to eat and drink. Practical Nursing Instructor consulted. Caloric count initiated and completed. Per Practical Nursing Instructor patient is not meeting his caloric intake, recommended liberalizing diet from heart healthy diet restrictions.Patent gets Boost TID with meals. Patient is on Multivitamins 1 tab daily. Maintenance IVF discontinued.Per bedside RN patient has been eating at least 50% -100% of his meals. Palliative care will continue to follow the patient during hospital course as condition evolves, to assist patient/decision-maker with understanding of their medical conditions, weighing benefits/burdens of treatment options, for clarification of goals of treatment. Additionally will assist with any symptoms of palliative concern Attestation To help prompt me to consider important information that might be impacting today's encounter and assessment, information from prior notes written by myself or my colleagues may have been "brought forward" into today's note. My signature on this note, however, is an attestation that I personally performed the exam, history, and/or decision-making noted today, and, unless otherwise indicated, the interactions with patient, family, and staff as well as the review of records all occurred today. I also attest that the listed assessment and stated plan reflect my best clinical judgment today based on the combination of historical information, prior notes, and today's exam/ interactions. When time spent is documented, it refers only to time spent today by the signer, or if indicated, combined time spent today by collaborating physician/nurse practitioner. Robin Dominguez Oct 28, 2017 11:45
[2017-10-28] MEDS: ACETAMINOPHEN/HYDROcodone 325 MG/5 MG TAB PO PRN (11:49)
--- NOTE | 2017-10-28 12:51 | HHI.PR ---
Subjective Remarks Patient reports he is doing okay. Hoping to get stronger. States he is using the walker. Objective Vitals Vital Signs Date Time Temp Pulse Resp B/P (MAP) Pulse Ox O2 Delivery O2 Flow Rate FiO2 10/28/17 12:00 98.2 93 18 112/73 (86) 94 10/28/17 08:00 98.2 64 18 100/58 (72) 96 10/28/17 04:00 97.6 74 18 127/76 (93) 95 10/28/17 00:00 97.8 64 18 99/61 (74) 93 10/27/17 20:00 97.4 72 18 128/78 (95) 95 10/27/17 16:04 97.7 75 18 98/58 (71) 94 10/27/17 15:41 16 I/O 10/27/17 10/27/17 10/27/17 10/28/17 10/28/17 10/28/17 06:59 14:59 22:59 06:59 14:59 22:59 Output Total 0 ml Balance 0 ml Output Urine Total 0 ml # Voids 3 # Bowel Movements 0 Result Diagram: 10/25/17 0637 Objective Remarks GENERAL: Patient appear older than stated age. CARDIOVASCULAR: Normal rate and regular rhythm without murmurs, gallops, or rubs. RESPIRATORY: Good respiratory efforts. Breath sounds equal and clear to auscultation bilaterally. GASTROINTESTINAL: Abdomen soft, non-tender, non-distended. Normal active bowel sounds MUSCULOSKELETAL: Extremities without cyanosis, or edema. NEURO: Alert & Oriented x4 to person, place, time, situation. Moves all ext x4. Generalized weakness. Chronic resting tremor PSYCH: Calm Procedures None A/P Problem List: (1) Encephalopathy ICD Code: G93.40 - Encephalopathy Status: Acute (2) Alcohol-induced mood disorder ICD Code: F10.94 - Alcohol use, unspecified with alcohol-induced mood disorder Status: Acute (3) Debility ICD Code: R53.81 - Other malaise (4) COPD (chronic obstructive pulmonary disease) ICD Code: J44.9 - COPD (chronic obstructive pulmonary disease) Status: Chronic (5) PTSD (post-traumatic stress disorder) ICD Code: F43.10 - Post-traumatic stress disorder, unspecified Assessment and Plan 62-year-old male patient of an VALE who was sent from his [facility] for aggressive behavior and altered mental status. The patient's medical history significant for bipolar disorder, seizure disorder, gout, chronic back pain, COPD, hypertension, hep B and C, and dyslipidemia. In the ER the patient was combative and attempted to urinate on himself. He received multiple doses of Benadryl, Haldol, and Ativan. The patient was admitted and treated for encephalopathy and behavioral disturbances. Psychiatry was consulted who lifted the Avelar act and increased the patient's Seroquel. His mental status much improved. Patient has significant debility likely secondary to chronic alcohol abuse and needs further rehabilitation to get stronger before he can return home. Anorexia - consulted dietitian for calorie count. calorie count shows that the patient doesn't get enough calories- however the patient is refusing PEG placement. - continue with supplements. UTI growing E. Coli Elevated PSA - treated with Levaquin. -Urology consulted for elevated PSA, recommendations appreciated -continue Flomax, repeat UA and PSA on an outpatient basis. Aggressive behavior, encephalopathy: improving the Avelar act was lifted by psychiatry Continue Seroquel, sertraline. Currently on lactulose. Right wrist pain and swelling, improving. X ray reviewed no fracture. US negative. Pain control with norco as need pr pain scale. MRI 10/05/17 of right wrist reviewed negative. continue with pain control. evaluated by ortho. Thrombocytopenia: -Chronic, at baseline. PLTs stable, H&H stable with no reported bleeding. Seizure disorder: -Continue Depakote, Keppra. Seizure precautions. PTSD, personality disorder: -evaluated by psych. -Continue Seroquel. Trazodone daily at bedtime. COPD: - currently stable on room air. Generalized weakness: - Patient has chronic debility likely secondary to chronic alcohol abuse. - Continue PT DVT prophylaxis: Lovenox. Discharge Planning DC to SNF once arrangements are made. Case management following. Melanie Velasco MD Oct 28, 2017 12:51
[2017-10-28] MEDS: traZODone HCL 100 MG TAB PO SCH (22:16)
[2017-10-28] MEDS: QUEtiapine FUMARATE 25 MG TAB PO SCH (22:20)
[2017-10-28] MEDS: DIVALPROEX SODIUM E.R. 500 MG TAB PO SCH (22:27)
[2017-10-29 00:08] VITALS: BP 106/67; PULSE 68; RESP 17; TEMP 97.6; O2SAT 96
[2017-10-29 05:31] VITALS: BP 116/70; PULSE 59; RESP 17; TEMP 97.7; O2SAT 96
[2017-10-29 07:47] VITALS: BP 102/61; PULSE 61; RESP 18; TEMP 98.1; O2SAT 97
[2017-10-29] MEDS: SODIUM CHLORIDE 0.9% FLUSH 10 ML FLUSH IV FLUSH SCH ×2 (07:55→22:22)
[2017-10-29] MEDS: ENOXAPARIN SODIUM 30 MG/0.3 ML SYRINGE SQ SCH (07:55)
[2017-10-29] MEDS: traMADol HCL 50 MG TAB PO PRN ×2 (07:57→16:29)
[2017-10-29] MEDS: LACTULOSE SYRUP 20 GM/30 ML CUP PO SCH ×2 (07:57→22:10)
[2017-10-29] MEDS: SERTRALINE HCL 100 MG TAB PO SCH (07:57)
[2017-10-29] MEDS: DOCUSATE SODIUM 50 MG/SENNA 8.6 MG TAB PO SCH ×2 (07:57→22:21)
[2017-10-29] MEDS: levETIRAcetam 500 MG TAB PO SCH ×2 (07:57→22:20)
[2017-10-29] MEDS: MULTIVITAMIN TAB PO SCH (07:57)
--- NOTE | 2017-10-29 11:28 | HHI.PR ---
Subjective Remarks No change in clinical status. Patient states he is doing okay. Objective Vitals Vital Signs Date Time Temp Pulse Resp B/P (MAP) Pulse Ox O2 Delivery O2 Flow Rate FiO2 10/29/17 07:47 98.1 61 18 102/61 (75) 97 10/29/17 05:31 97.7 59 17 116/70 (85) 96 10/29/17 00:08 97.6 68 17 106/67 (80) 96 10/28/17 20:35 98.0 66 17 120/72 (88) 96 10/28/17 18:16 56 12 112/66 (81) 96 10/28/17 16:00 98.4 71 18 100/68 (79) 96 10/28/17 12:00 98.2 93 18 112/73 (86) 94 I/O 10/28/17 10/28/17 10/28/17 10/29/17 10/29/17 10/29/17 07:00 15:00 23:00 07:00 15:00 23:00 Intake Total 480 ml Balance 480 ml Intake Oral 480 ml # Voids 3 4 Result Diagram: 10/25/17 0637 Objective Remarks GENERAL: Patient appear older than stated age. CARDIOVASCULAR: Normal rate and regular rhythm without murmurs, gallops, or rubs. RESPIRATORY: Good respiratory efforts. Breath sounds equal and clear to auscultation bilaterally. GASTROINTESTINAL: Abdomen soft, non-tender, non-distended. Normal active bowel sounds MUSCULOSKELETAL: Extremities without cyanosis, or edema. NEURO: Alert & Oriented x4 to person, place, time, situation. Moves all ext x4. Generalized weakness. Chronic resting tremor PSYCH: Calm Procedures None A/P Problem List: (1) Encephalopathy ICD Code: G93.40 - Encephalopathy Status: Acute (2) Alcohol-induced mood disorder ICD Code: F10.94 - Alcohol use, unspecified with alcohol-induced mood disorder Status: Acute (3) Debility ICD Code: R53.81 - Other malaise (4) COPD (chronic obstructive pulmonary disease) ICD Code: J44.9 - COPD (chronic obstructive pulmonary disease) Status: Chronic (5) PTSD (post-traumatic stress disorder) ICD Code: F43.10 - Post-traumatic stress disorder, unspecified Assessment and Plan 62-year-old male patient of an [facility] who was sent from his [facility] for aggressive behavior and altered mental status. The patient's medical history significant for bipolar disorder, seizure disorder, gout, chronic back pain, COPD, hypertension, hep B and C, and dyslipidemia. In the ER the patient was combative and attempted to urinate on himself. He received multiple doses of Benadryl, Haldol, and Ativan. The patient was admitted and treated for encephalopathy and behavioral disturbances. Psychiatry was consulted who lifted the Avelar act and increased the patient's Seroquel. His mental status much improved. Patient has significant debility likely secondary to chronic alcohol abuse and needs further rehabilitation to get stronger before he can return home. Anorexia - Calorie count shows that the patient doesn't get enough calories- however the patient is refusing PEG placement. - continue with supplements and encourage p.o. intake. UTI growing E. Coli Elevated PSA - treated with Levaquin. -Urology consulted for elevated PSA, recommendations appreciated -continue Flomax, repeat UA and PSA on an outpatient basis. Aggressive behavior, encephalopathy: improving the Avelar act was lifted by psychiatry Continue Seroquel, sertraline. Currently on lactulose. Right wrist pain and swelling, improving. X ray reviewed, no fracture. US negative. Pain control with norco as need prn pain scale. MRI 10/05/17 of right wrist reviewed negative. continue with pain control. evaluated by ortho. Thrombocytopenia: -Chronic, at baseline. PLTs stable, H&H stable with no reported bleeding. Seizure disorder: -Continue Depakote, Keppra. Seizure precautions. PTSD, personality disorder: -evaluated by psych. -Continue Seroquel. Trazodone daily at bedtime. COPD: - currently stable on room air. Generalized weakness: - Patient has chronic debility likely secondary to chronic alcohol abuse. - Continue PT DVT prophylaxis: Lovenox. Discharge Planning DC to SNF once arrangements are made. Case management following. Melanie Velasco MD Oct 29, 2017 11:28
[2017-10-29 11:53] VITALS: BP 123/77; PULSE 77; RESP 18; O2SAT 96
[2017-10-29 16:00] VITALS: BP 127/79; PULSE 58; RESP 18; TEMP 98.2; O2SAT 98
[2017-10-29 20:00] VITALS: BP 106/57; PULSE 80; RESP 20; TEMP 97.4; O2SAT 98
[2017-10-29] MEDS: DIVALPROEX SODIUM E.R. 500 MG TAB PO SCH (22:12)
[2017-10-29] MEDS: traZODone HCL 100 MG TAB PO SCH (22:19)
[2017-10-29] MEDS: QUEtiapine FUMARATE 25 MG TAB PO SCH (22:21)
[2017-10-30] VITALS (8 sets, daily range): BP systolic 101–137; BP diastolic 65–84; PULSE 60–109; RESP 16–18; TEMP 97.8–98.9; O2SAT 93–97
[2017-10-30] MEDS: traMADol HCL 50 MG TAB PO PRN ×2 (07:24→15:35)
[2017-10-30] MEDS: SODIUM CHLORIDE 0.9% FLUSH 10 ML FLUSH IV FLUSH SCH ×2 (07:24→20:58)
[2017-10-30] MEDS: levETIRAcetam 500 MG TAB PO SCH ×2 (07:24→20:57)
[2017-10-30] MEDS: DOCUSATE SODIUM 50 MG/SENNA 8.6 MG TAB PO SCH ×2 (07:24→20:57)
[2017-10-30] MEDS: SERTRALINE HCL 100 MG TAB PO SCH (07:25)
[2017-10-30] MEDS: ENOXAPARIN SODIUM 30 MG/0.3 ML SYRINGE SQ SCH (07:25)
[2017-10-30] MEDS: LACTULOSE SYRUP 20 GM/30 ML CUP PO SCH ×2 (07:25→20:58)
[2017-10-30] MEDS: MULTIVITAMIN TAB PO SCH (07:25)
--- NOTE | 2017-10-30 16:17 | HHI.PR ---
Subjective Remarks Patient reports he is doing okay. No new complaints. Objective Vitals Vital Signs Date Time Temp Pulse Resp B/P (MAP) Pulse Ox O2 Delivery O2 Flow Rate FiO2 10/30/17 12:53 98.9 65 18 119/77 (91) 96 10/30/17 08:51 98.2 60 16 113/71 (85) 94 10/30/17 04:00 97.8 60 17 110/73 (85) 93 10/30/17 00:00 98.3 66 17 101/65 (77) 96 10/29/17 20:00 97.4 80 20 106/57 (73) 98 I/O 10/29/17 10/29/17 10/29/17 10/30/17 10/30/17 10/30/17 07:00 15:00 23:00 07:00 15:00 23:00 Intake Total 480 ml 480 ml Balance 480 ml 480 ml Intake Oral 480 ml 480 ml # Voids 4 1 1 # Bowel Movements 0 Objective Remarks GENERAL: Patient appear older than stated age. CARDIOVASCULAR: Normal rate and regular rhythm without murmurs, gallops, or rubs. RESPIRATORY: Good respiratory efforts. Breath sounds equal and clear to auscultation bilaterally. GASTROINTESTINAL: Abdomen soft, non-tender, non-distended. Normal active bowel sounds MUSCULOSKELETAL: Extremities without cyanosis, or edema. NEURO: Alert & Oriented x4 to person, place, time, situation. Moves all ext x4. Generalized weakness. Chronic resting tremor PSYCH: Calm Procedures None A/P Problem List: (1) Encephalopathy ICD Code: G93.40 - Encephalopathy Status: Acute (2) Alcohol-induced mood disorder ICD Code: F10.94 - Alcohol use, unspecified with alcohol-induced mood disorder Status: Acute (3) Debility ICD Code: R53.81 - Other malaise (4) COPD (chronic obstructive pulmonary disease) ICD Code: J44.9 - COPD (chronic obstructive pulmonary disease) Status: Chronic (5) PTSD (post-traumatic stress disorder) ICD Code: F43.10 - Post-traumatic stress disorder, unspecified Assessment and Plan 62-year-old male patient of an [facility] who was sent from his [facility] for aggressive behavior and altered mental status. The patient's medical history significant for bipolar disorder, seizure disorder, gout, chronic back pain, COPD, hypertension, hep B and C, and dyslipidemia. In the ER the patient was combative and attempted to urinate on himself. He received multiple doses of Benadryl, Haldol, and Ativan. The patient was admitted and treated for encephalopathy and behavioral disturbances. Psychiatry was consulted who lifted the Avelar act and increased the patient's Seroquel. His mental status much improved. Patient has significant debility likely secondary to chronic alcohol abuse and needs further rehabilitation to get stronger before he can return home. Anorexia - Calorie count shows that the patient doesn't get enough calories- however the patient is refusing PEG placement. - continue with supplements and encourage p.o. intake. UTI growing E. Coli Elevated PSA - treated with Levaquin. -Urology consulted for elevated PSA, recommendations appreciated -continue Flomax. Repeat [facility] outpatient. Aggressive behavior, encephalopathy: improving the Avelar act was lifted by psychiatry Continue Seroquel, sertraline. Currently on lactulose. Right wrist pain and swelling, improving. X ray reviewed, no fracture. US negative. Pain control with norco as need prn pain scale. MRI 10/05/17 of right wrist reviewed negative. continue with pain control. evaluated by ortho. Thrombocytopenia: -Chronic, at baseline. PLTs stable, H&H stable with no reported bleeding. Seizure disorder: -Continue Depakote, Keppra. Seizure precautions. PTSD, personality disorder: -evaluated by psych. -Continue Seroquel. Trazodone daily at bedtime. COPD: - currently stable on room air. Generalized weakness: - Patient has chronic debility likely secondary to chronic alcohol abuse. - Continue PT DVT prophylaxis: Lovenox. Discharge Planning DC to SNF once arrangements are made. Case management following. Melanie Velasco MD Oct 30, 2017 16:17
[2017-10-30] MEDS: QUEtiapine FUMARATE 25 MG TAB PO SCH (20:57)
[2017-10-30] MEDS: DIVALPROEX SODIUM E.R. 500 MG TAB PO SCH (20:57)
[2017-10-30] MEDS: traZODone HCL 100 MG TAB PO SCH (20:57)
[2017-10-31 00:43] VITALS: BP 123/71; PULSE 68; RESP 18; TEMP 97.5; O2SAT 95
[2017-10-31 05:00] VITALS: BP 97/56; PULSE 64; RESP 18; TEMP 97.5; O2SAT 95
[2017-10-31 08:42] VITALS: BP 101/64; PULSE 58; RESP 20; TEMP 97.9; O2SAT 94
[2017-10-31] MEDS: SERTRALINE HCL 100 MG TAB PO SCH (09:02)
[2017-10-31] MEDS: MULTIVITAMIN TAB PO SCH (09:02)
[2017-10-31] MEDS: LACTULOSE SYRUP 20 GM/30 ML CUP PO SCH ×3 (09:02→22:35)
[2017-10-31] MEDS: levETIRAcetam 500 MG TAB PO SCH ×2 (09:03→22:35)
[2017-10-31] MEDS: DOCUSATE SODIUM 50 MG/SENNA 8.6 MG TAB PO SCH ×2 (09:03→22:34)
[2017-10-31] MEDS: SODIUM CHLORIDE 0.9% FLUSH 10 ML FLUSH IV FLUSH SCH ×2 (09:04→22:35)
[2017-10-31] MEDS: ENOXAPARIN SODIUM 30 MG/0.3 ML SYRINGE SQ SCH (09:04)
[2017-10-31 12:34] VITALS: BP 97/58; PULSE 63; RESP 20; TEMP 98.2; O2SAT 95
--- NOTE | 2017-10-31 15:38 | HHI.PR ---
Subjective Remarks No new changes. Patient states he is doing okay. Still very weak and frail. Objective Vitals Vital Signs Date Time Temp Pulse Resp B/P (MAP) Pulse Ox O2 Delivery O2 Flow Rate FiO2 10/31/17 12:34 98.2 63 20 97/58 (71) 95 10/31/17 08:42 97.9 58 20 101/64 (76) 94 10/31/17 05:00 97.5 64 18 97/56 (70) 95 10/31/17 00:43 97.5 68 18 123/71 (88) 95 10/30/17 21:52 98.0 62 18 120/77 (91) 96 10/30/17 21:28 97.9 109 18 137/84 (101) 97 10/30/17 16:18 98.3 64 18 112/65 (81) 96 I/O 10/30/17 10/30/17 10/30/17 10/31/17 10/31/17 10/31/17 07:00 15:00 23:00 07:00 15:00 23:00 Intake Total 480 ml Balance 480 ml Intake Oral 480 ml # Voids 1 1 1 # Bowel Movements 0 Objective Remarks GENERAL: Patient appear older than stated age. CARDIOVASCULAR: Normal rate and regular rhythm without murmurs, gallops, or rubs. RESPIRATORY: Good respiratory efforts. Breath sounds equal and clear to auscultation bilaterally. GASTROINTESTINAL: Abdomen soft, non-tender, non-distended. Normal active bowel sounds MUSCULOSKELETAL: Extremities without cyanosis, or edema. NEURO: Alert & Oriented x4 to person, place, time, situation. Moves all ext x4. Generalized weakness. Chronic resting tremor PSYCH: Calm Procedures None A/P Problem List: (1) Encephalopathy ICD Code: G93.40 - Encephalopathy Status: Acute (2) Alcohol-induced mood disorder ICD Code: F10.94 - Alcohol use, unspecified with alcohol-induced mood disorder Status: Acute (3) Debility ICD Code: R53.81 - Other malaise (4) COPD (chronic obstructive pulmonary disease) ICD Code: J44.9 - COPD (chronic obstructive pulmonary disease) Status: Chronic (5) PTSD (post-traumatic stress disorder) ICD Code: F43.10 - Post-traumatic stress disorder, unspecified Assessment and Plan 62-year-old male patient of an [facility] who was sent from his [facility] for aggressive behavior and altered mental status. The patient's medical history significant for bipolar disorder, seizure disorder, gout, chronic back pain, COPD, hypertension, hep B and C, and dyslipidemia. In the ER the patient was combative and attempted to urinate on himself. He received multiple doses of Benadryl, Haldol, and Ativan. The patient was admitted and treated for encephalopathy and behavioral disturbances. Psychiatry was consulted who lifted the Avelar act and increased the patient's Seroquel. His mental status much improved. Patient has significant debility likely secondary to chronic alcohol abuse and needs further rehabilitation to get stronger. Currently awaiting placement. Anorexia - Calorie count shows that the patient doesn't get enough calories- however the patient is refusing PEG placement. - continue with supplements and encourage p.o. intake. UTI growing E. Coli Elevated PSA - treated with Levaquin. -Urology consulted for elevated PSA, recommendations appreciated -continue Flomax. Repeat [facility] outpatient. Aggressive behavior, encephalopathy: improving the Avelar act was lifted by psychiatry Continue Seroquel, sertraline. Currently on lactulose. Right wrist pain and swelling, improving. X ray reviewed, no fracture. US negative. Pain control with norco as need prn pain scale. MRI 10/05/17 of right wrist reviewed negative. continue with pain control. evaluated by ortho. Thrombocytopenia: -Chronic, at baseline. PLTs stable, H&H stable with no reported bleeding. Seizure disorder: -Continue Depakote, Keppra. Seizure precautions. PTSD, personality disorder: -evaluated by psych. -Continue Seroquel. Trazodone daily at bedtime. COPD: - currently stable on room air. Generalized weakness: - Patient has chronic debility likely secondary to chronic alcohol abuse. - Continue PT DVT prophylaxis: Lovenox. Discharge Planning DC to SNF once arrangements are made. Case management following. Melanie Velasco MD Oct 31, 2017 15:38
[2017-10-31 16:34] VITALS: BP 128/79; PULSE 76; RESP 19; TEMP 97.4; O2SAT 95
[2017-10-31] MEDS: traMADol HCL 50 MG TAB PO PRN (16:39)
[2017-10-31 19:55] VITALS: BP 113/64; PULSE 73; RESP 19; TEMP 97.4; O2SAT 95
[2017-10-31] MEDS: DIVALPROEX SODIUM E.R. 500 MG TAB PO SCH (22:34)
[2017-10-31] MEDS: QUEtiapine FUMARATE 25 MG TAB PO SCH (22:34)
[2017-10-31] MEDS: traZODone HCL 100 MG TAB PO SCH (22:35)
[2017-11-01 00:50] VITALS: BP 95/64; PULSE 73; RESP 18; TEMP 97.3; O2SAT 94
[2017-11-01 04:01] VITALS: BP 108/63; PULSE 58; RESP 18; TEMP 97.3; O2SAT 18
[2017-11-01] MEDS: LACTULOSE SYRUP 20 GM/30 ML CUP PO SCH ×2 (07:16→21:40)
[2017-11-01] MEDS: ENOXAPARIN SODIUM 30 MG/0.3 ML SYRINGE SQ SCH (07:17)
[2017-11-01] MEDS: levETIRAcetam 500 MG TAB PO SCH ×2 (07:17→21:40)
[2017-11-01] MEDS: SERTRALINE HCL 100 MG TAB PO SCH (07:17)
[2017-11-01] MEDS: SODIUM CHLORIDE 0.9% FLUSH 10 ML FLUSH IV FLUSH SCH ×3 (07:17→21:41)
[2017-11-01] MEDS: DOCUSATE SODIUM 50 MG/SENNA 8.6 MG TAB PO SCH ×2 (07:17→21:40)
[2017-11-01] MEDS: MULTIVITAMIN TAB PO SCH (07:17)
[2017-11-01] MEDS: traMADol HCL 50 MG TAB PO PRN (07:18)
[2017-11-01 08:00] VITALS: BP 95/58; PULSE 60; RESP 17; TEMP 97.5; O2SAT 97
--- NOTE | 2017-11-01 11:10 | HHI.PR ---
Subjective Remarks Follow up for aggressive behavior, Seizure disorder. Mr. Peters is currently doing well. He denies any acute concerns. No fever, chills. He is tolerating diet well. He is cooperative and pleasant. Objective Vitals Vital Signs Date Time Temp Pulse Resp B/P (MAP) Pulse Ox O2 Delivery O2 Flow Rate FiO2 11/01/17 08:00 97.5 60 17 95/58 (70) 97 11/01/17 04:01 97.3 58 18 108/63 (78) 18 11/01/17 00:50 97.3 73 18 95/64 (74) 94 10/31/17 19:55 97.4 73 19 113/64 (80) 95 10/31/17 16:34 97.4 76 19 128/79 (95) 95 10/31/17 12:34 98.2 63 20 97/58 (71) 95 I/O 10/31/17 10/31/17 10/31/17 11/01/17 11/01/17 11/01/17 07:00 15:00 23:00 07:00 15:00 23:00 # Voids 1 Imaging Last Impressions Wrist MRI 10/05/17 0000 Signed Impressions: Service Date/Time: Thursday, October 05, 2017 12:00 - CONCLUSION: 1. No evidence of osteomyelitis. 2. Effusion in the proximal carpal row and in the radiocarpal joint. Fermin Duggan MD Upper Extremity Ultrasound 10/03/17 0000 Signed Impressions: Service Date/Time: Monday, October 02, 2017 14:57 - CONCLUSION: 1. Negative for deep venous thrombosis right upper extremity. Fermin Duggan MD Wrist X-Ray 10/02/17 0000 Signed Impressions: Service Date/Time: Monday, October 02, 2017 10:18 - CONCLUSION: Unremarkable exam. No significant change compared to the prior study. Wade Butler MD Renal Ultrasound 09/24/17 0000 Signed Impressions: Service Date/Time: Sunday, September 24, 2017 09:53 - CONCLUSION: Negative for stone or obstruction. Silvestre Iniguez MD FACR Head CT 08/28/17 0000 Signed Impressions: Service Date/Time: Monday, August 28, 2017 06:05 - CONCLUSION: 1. No acute intracranial hemorrhage. 2. Stable diffuse bilateral cortical atrophy. 3. No significant change compared to the prior exam. Wade Butler MD Cervical Spine CT 08/28/17 0000 Signed Impressions: Service Date/Time: Monday, August 28, 2017 06:08 - CONCLUSION: 1. No acute bony fracture. 2. Stable diffuse primary degenerative changes involving the cervical spine. 3. No new or significant changes. Wade Butler MD Objective Remarks GENERAL: Alert, NAD. Somewhat confused. SKIN: Warm and dry. HEAD: Normocephalic. EYES: No scleral icterus. No injection or drainage. NECK: Supple, trachea midline. No JVD or lymphadenopathy. CARDIOVASCULAR: Regular rate and rhythm without murmurs, gallops, or rubs. RESPIRATORY: Breath sounds equal bilaterally. No accessory muscle use. GASTROINTESTINAL: Abdomen soft, non-tender, nondistended. MUSCULOSKELETAL: No cyanosis, or edema. BACK: Nontender without obvious deformity. No CVA tenderness. Procedures None A/P Problem List: (1) Encephalopathy ICD Code: G93.40 - Encephalopathy Status: Acute (2) Alcohol-induced mood disorder ICD Code: F10.94 - Alcohol use, unspecified with alcohol-induced mood disorder Status: Acute (3) Debility ICD Code: R53.81 - Other malaise (4) COPD (chronic obstructive pulmonary disease) ICD Code: J44.9 - COPD (chronic obstructive pulmonary disease) Status: Chronic (5) PTSD (post-traumatic stress disorder) ICD Code: F43.10 - Post-traumatic stress disorder, unspecified Assessment and Plan 62-year-old male patient of an [facility] who was sent from his [facility] for aggressive behavior and altered mental status. The patient's medical history significant for bipolar disorder, seizure disorder, gout, chronic back pain, COPD, hypertension, hep B and C, and dyslipidemia. In the ER the patient was combative and attempted to urinate on himself. He received multiple doses of Benadryl, Haldol, and Ativan. The patient was admitted and treated for encephalopathy and behavioral disturbances. Psychiatry was consulted who lifted the Avelar act and increased the patient's Seroquel. His mental status much improved. Patient has significant debility likely secondary to chronic alcohol abuse and needs further rehabilitation to get stronger. Currently awaiting placement. Anorexia - Calorie count shows that the patient doesn't get enough calories- however the patient is refusing PEG placement. - continue with supplements and encourage p.o. intake. UTI growing E. Coli Elevated PSA - treated with Levaquin. -Urology consulted for elevated PSA, recommendations appreciated -continue Flomax. Repeat [facility] outpatient. Aggressive behavior, encephalopathy: improving the Avelar act was lifted by psychiatry Continue Seroquel, sertraline. Currently on lactulose. Right wrist pain and swelling, improving. X ray reviewed, no fracture. US negative. Pain control with norco as need prn pain scale. MRI 10/05/17 of right wrist reviewed negative. continue with pain control. evaluated by ortho. Thrombocytopenia: -Chronic, at baseline. PLTs stable, H&H stable with no reported bleeding. Seizure disorder: -Continue David Luther. Seizure precautions. PTSD, personality disorder: -evaluated by psych. -Continue Seroquel. Trazodone daily at bedtime. COPD: - currently stable on room air. Generalized weakness: - Patient has chronic debility likely secondary to chronic alcohol abuse. - Continue PT DVT prophylaxis: Lovenox. Christos Menjivar DO Nov 01, 2017 11:10 am
[2017-11-01 12:00] VITALS: BP 108/66; PULSE 66; RESP 17; TEMP 98.4; O2SAT 99
[2017-11-01 16:00] VITALS: BP 113/82; PULSE 74; RESP 17; TEMP 98.3; O2SAT 95
[2017-11-01] MEDS: QUEtiapine FUMARATE 25 MG TAB PO SCH (21:39)
[2017-11-01] MEDS: traZODone HCL 100 MG TAB PO SCH (21:39)
[2017-11-01] MEDS: DIVALPROEX SODIUM E.R. 500 MG TAB PO SCH (21:40)
[2017-11-01 22:26] VITALS: BP 110/75; PULSE 68; RESP 16; TEMP 98.2; O2SAT 98
[2017-11-02 00:30] VITALS: BP 107/56; PULSE 62; RESP 18; TEMP 98.4; O2SAT 96
[2017-11-02] MEDS ORDERED: ACETAMINOPHEN 325 MG TAB PO PRN (01:45)
[2017-11-02 04:32] VITALS: BP 106/64; PULSE 65; RESP 18; TEMP 98; O2SAT 97
[2017-11-02] MEDS: LACTULOSE SYRUP 20 GM/30 ML CUP PO SCH ×2 (07:36→23:08)
[2017-11-02] MEDS: SERTRALINE HCL 100 MG TAB PO SCH (07:37)
[2017-11-02] MEDS: ENOXAPARIN SODIUM 30 MG/0.3 ML SYRINGE SQ SCH (07:37)
[2017-11-02] MEDS: MULTIVITAMIN TAB PO SCH (07:37)
[2017-11-02] MEDS: SODIUM CHLORIDE 0.9% FLUSH 10 ML FLUSH IV FLUSH SCH ×2 (07:37→21:00)
[2017-11-02] MEDS: levETIRAcetam 500 MG TAB PO SCH ×2 (07:37→23:07)
[2017-11-02] MEDS: DOCUSATE SODIUM 50 MG/SENNA 8.6 MG TAB PO SCH ×2 (07:37→23:08)
[2017-11-02 08:00] VITALS: BP 92/72; PULSE 60; RESP 16; TEMP 97.6; O2SAT 94
[2017-11-02 12:00] VITALS: BP 108/68; PULSE 69; RESP 16; TEMP 97.6; O2SAT 94
--- NOTE | 2017-11-02 12:51 | HHI.PR ---
Subjective Remarks Follow up for aggressive behavior, Seizure disorder. Mr. Peters is currently doing well. No acute concerns. Objective Vitals Vital Signs Date Time Temp Pulse Resp B/P (MAP) Pulse Ox O2 Delivery O2 Flow Rate FiO2 11/02/17 12:00 97.6 69 16 108/68 (81) 94 11/02/17 08:00 97.6 60 16 92/72 (79) 94 11/02/17 04:32 98.0 65 18 106/64 (78) 97 11/02/17 00:30 98.4 62 18 107/56 (73) 96 11/01/17 22:26 98.2 68 16 110/75 (87) 98 11/01/17 16:00 98.3 74 17 113/82 (92) 95 I/O 11/01/17 11/01/17 11/01/17 11/02/17 11/02/17 11/02/17 07:00 15:00 23:00 07:00 15:00 23:00 Intake Total 240 ml Balance 240 ml Intake Oral 240 ml # Voids 2 # Bowel Movements 1 Objective Remarks GENERAL: Alert, NAD. Somewhat confused. SKIN: Warm and dry. HEAD: Normocephalic. EYES: No scleral icterus. No injection or drainage. NECK: Supple, trachea midline. No JVD or lymphadenopathy. CARDIOVASCULAR: Regular rate and rhythm without murmurs, gallops, or rubs. RESPIRATORY: Breath sounds equal bilaterally. No accessory muscle use. GASTROINTESTINAL: Abdomen soft, non-tender, nondistended. MUSCULOSKELETAL: No cyanosis, or edema. BACK: Nontender without obvious deformity. No CVA tenderness. Procedures None A/P Problem List: (1) Encephalopathy ICD Code: G93.40 - Encephalopathy Status: Acute (2) Alcohol-induced mood disorder ICD Code: F10.94 - Alcohol use, unspecified with alcohol-induced mood disorder Status: Acute (3) Debility ICD Code: R53.81 - Other malaise (4) COPD (chronic obstructive pulmonary disease) ICD Code: J44.9 - COPD (chronic obstructive pulmonary disease) Status: Chronic (5) PTSD (post-traumatic stress disorder) ICD Code: F43.10 - Post-traumatic stress disorder, unspecified Assessment and Plan 62-year-old male patient of an [facility] who was [facility] his [facility] for aggressive behavior and altered mental status. The patient's medical history significant for bipolar disorder, seizure disorder, gout, chronic back pain, COPD, hypertension, hep B and C, and dyslipidemia. In the ER the patient was combative and attempted to urinate on himself. He received multiple doses of Benadryl, Haldol, and Ativan. The patient was admitted and treated for encephalopathy and behavioral disturbances. Psychiatry was consulted who lifted the Avelar act and increased the patient's Seroquel. His mental status much improved. Patient has significant debility likely secondary to chronic alcohol abuse and needs further rehabilitation to get stronger. Currently awaiting placement. Anorexia - Calorie count shows that the patient doesn't get enough calories- however the patient is refusing PEG placement. - continue with supplements and encourage p.o. intake. UTI growing E. Coli Elevated PSA - treated with Levaquin. -Urology consulted for elevated PSA, recommendations appreciated -continue Flomax. Repeat [facility] outpatient. Aggressive behavior, encephalopathy: improving the Avelar act was lifted by psychiatry Continue Seroquel, sertraline. Currently on lactulose. Right wrist pain and swelling, improving. X ray reviewed, no fracture. US negative. Pain control with norco as need prn pain scale. MRI 10/05/17 of right wrist reviewed negative. continue with pain control. evaluated by ortho. Thrombocytopenia: -Chronic, at baseline. PLTs stable, H&H stable with no reported bleeding. Seizure disorder: -Continue Depakote, Keppra. Seizure precautions. PTSD, personality disorder: -evaluated by psych. -Continue Seroquel. Trazodone daily at bedtime. COPD: - currently stable on room air. Generalized weakness: - Patient has chronic debility likely secondary to chronic alcohol abuse. - Continue PT DVT prophylaxis: Lovenox. 11/02/2017: No acute changes in management. Christos Menjivar DO Nov 02, 2017 12:51 pm
[2017-11-02] MEDS: ACETAMINOPHEN/HYDROcodone 325 MG/5 MG TAB PO PRN (12:59)
[2017-11-02 16:00] VITALS: BP 115/68; PULSE 70; RESP 16; TEMP 98.3; O2SAT 97
[2017-11-02 20:30] VITALS: BP 130/88; PULSE 110; RESP 20; TEMP 98.8; O2SAT 95
[2017-11-02] MEDS: traZODone HCL 100 MG TAB PO SCH (23:07)
[2017-11-02] MEDS: DIVALPROEX SODIUM E.R. 500 MG TAB PO SCH (23:07)
[2017-11-02] MEDS: QUEtiapine FUMARATE 25 MG TAB PO SCH (23:08)
[2017-11-03 00:20] VITALS: BP 125/80; PULSE 108; RESP 19; TEMP 97.9; O2SAT 97
[2017-11-03 08:33] VITALS: BP 102/63; PULSE 64; RESP 18; TEMP 97.9; O2SAT 95
[2017-11-03] MEDS: LACTULOSE SYRUP 20 GM/30 ML CUP PO SCH ×3 (09:18→22:33)
[2017-11-03] MEDS: ENOXAPARIN SODIUM 30 MG/0.3 ML SYRINGE SQ SCH (09:18)
[2017-11-03] MEDS: MULTIVITAMIN TAB PO SCH (09:19)
[2017-11-03] MEDS: levETIRAcetam 500 MG TAB PO SCH ×2 (09:19→22:32)
[2017-11-03] MEDS: SERTRALINE HCL 100 MG TAB PO SCH (09:19)
[2017-11-03] MEDS: SODIUM CHLORIDE 0.9% FLUSH 10 ML FLUSH IV FLUSH SCH ×2 (09:19→21:00)
[2017-11-03] MEDS: DOCUSATE SODIUM 50 MG/SENNA 8.6 MG TAB PO SCH ×2 (09:19→22:32)
[2017-11-03 11:50] VITALS: BP 105/67; PULSE 64; RESP 20; TEMP 98.3; O2SAT 95
--- NOTE | 2017-11-03 14:38 | HHI.PR ---
Subjective Remarks Follow up for aggressive behavior, Seizure disorder. Patient is resting in bed. No acute concerns. Objective Vitals Vital Signs Date Time Temp Pulse Resp B/P (MAP) Pulse Ox O2 Delivery O2 Flow Rate FiO2 11/03/17 11:50 98.3 64 20 105/67 (80) 95 11/03/17 08:33 97.9 64 18 102/63 (76) 95 11/03/17 00:20 97.9 108 19 125/80 (95) 97 11/02/17 20:30 98.8 110 20 130/88 (102) 95 11/02/17 16:00 98.3 70 16 115/68 (84) 97 I/O 11/02/17 11/02/17 11/02/17 11/03/17 11/03/17 11/03/17 07:00 15:00 23:00 07:00 15:00 23:00 Intake Total 1140 ml 1450 ml Balance 1140 ml 1450 ml Intake Oral 1140 ml 1450 ml # Voids 4 5 # Bowel Movements 0 0 Objective Remarks GENERAL: Alert, NAD. Somewhat confused. SKIN: Warm and dry. HEAD: Normocephalic. EYES: No scleral icterus. No injection or drainage. NECK: Supple, trachea midline. No JVD or lymphadenopathy. CARDIOVASCULAR: Regular rate and rhythm without murmurs, gallops, or rubs. RESPIRATORY: Breath sounds equal bilaterally. No accessory muscle use. GASTROINTESTINAL: Abdomen soft, non-tender, nondistended. MUSCULOSKELETAL: No cyanosis, or edema. BACK: Nontender without obvious deformity. No CVA tenderness. Procedures None A/P Problem List: (1) Encephalopathy ICD Code: G93.40 - Encephalopathy Status: Acute (2) Alcohol-induced mood disorder ICD Code: F10.94 - Alcohol use, unspecified with alcohol-induced mood disorder Status: Acute (3) Debility ICD Code: R53.81 - Other malaise (4) COPD (chronic obstructive pulmonary disease) ICD Code: J44.9 - COPD (chronic obstructive pulmonary disease) Status: Chronic (5) PTSD (post-traumatic stress disorder) ICD Code: F43.10 - Post-traumatic stress disorder, unspecified Assessment and Plan 62-year-old male patient of an [facility] who was sent from his [facility] for aggressive behavior and altered mental status. The patient's medical history significant for bipolar disorder, seizure disorder, gout, chronic back pain, COPD, hypertension, hep B and C, and dyslipidemia. In the ER the patient was combative and attempted to urinate on himself. He received multiple doses of Benadryl, Haldol, and Ativan. The patient was admitted and treated for encephalopathy and behavioral disturbances. Psychiatry was consulted who lifted the Avelar act and increased the patient's Seroquel. His mental status much improved. Patient has significant debility likely secondary to chronic alcohol abuse and needs further rehabilitation to get stronger. Currently awaiting placement. Anorexia - Calorie count shows that the patient doesn't get enough calories- however the patient is refusing PEG placement. - continue with supplements and encourage p.o. intake. UTI growing E. Coli Elevated PSA - treated with Levaquin. -Urology consulted for elevated PSA, recommendations appreciated -continue Flomax. Repeat [facility] outpatient. Aggressive behavior, encephalopathy: improving the Avelar act was lifted by psychiatry Continue Seroquel, sertraline. Currently on lactulose. Right wrist pain and swelling, improving. X ray reviewed, no fracture. US negative. Pain control with norco as need prn pain scale. MRI 10/05/17 of right wrist reviewed negative. continue with pain control. evaluated by ortho. Thrombocytopenia: -Chronic, at baseline. PLTs stable, H&H stable with no reported bleeding. Seizure disorder: -Continue Depakote, Keppra. Seizure precautions. PTSD, personality disorder: -evaluated by psych. -Continue Seroquel. Trazodone daily at bedtime. COPD: - currently stable on room air. Generalized weakness: - Patient has chronic debility likely secondary to chronic alcohol abuse. - Continue PT DVT prophylaxis: Lovenox. 11/03/2017: No acute changes in management. Christos Menjivar DO Nov 03, 2017 2:38 pm
[2017-11-03 15:37] VITALS: BP 153/70; PULSE 78; RESP 20; TEMP 97.5; O2SAT 95
[2017-11-03 20:00] VITALS: BP 96/61; PULSE 78; RESP 18; TEMP 98.3; O2SAT 97
[2017-11-03] MEDS: traZODone HCL 100 MG TAB PO SCH (22:32)
[2017-11-03] MEDS: DIVALPROEX SODIUM E.R. 500 MG TAB PO SCH (22:32)
[2017-11-03] MEDS: QUEtiapine FUMARATE 25 MG TAB PO SCH (22:33)
[2017-11-04] VITALS: BP 110/68; PULSE 73; RESP 18; TEMP 98.2; O2SAT 94
[2017-11-04 04:00] VITALS: BP 103/64; PULSE 75; RESP 18; TEMP 98; O2SAT 97
[2017-11-04 08:58] VITALS: BP 100/65; PULSE 55; RESP 20; TEMP 98.5; O2SAT 94
[2017-11-04] MEDS: SODIUM CHLORIDE 0.9% FLUSH 10 ML FLUSH IV FLUSH SCH ×2 (09:00→23:08)
[2017-11-04] MEDS: levETIRAcetam 500 MG TAB PO SCH ×2 (09:43→23:07)
[2017-11-04] MEDS: SERTRALINE HCL 100 MG TAB PO SCH (09:43)
[2017-11-04] MEDS: DOCUSATE SODIUM 50 MG/SENNA 8.6 MG TAB PO SCH ×2 (09:43→23:05)
[2017-11-04] MEDS: LACTULOSE SYRUP 20 GM/30 ML CUP PO SCH ×2 (09:43→23:05)
[2017-11-04] MEDS: MULTIVITAMIN TAB PO SCH (09:43)
[2017-11-04] MEDS: ENOXAPARIN SODIUM 30 MG/0.3 ML SYRINGE SQ SCH (09:53)
--- NOTE | 2017-11-04 11:22 | HHI.PR ---
Subjective Remarks Follow up for aggressive behavior, Seizure disorder. Patient is doing well. However, he complains of right wrist pain - no swelling, erythema. No fever, chills. Objective Vitals Vital Signs Date Time Temp Pulse Resp B/P (MAP) Pulse Ox O2 Delivery O2 Flow Rate FiO2 11/04/17 08:58 98.5 55 20 100/65 (77) 94 11/04/17 04:00 98.0 75 18 103/64 (77) 97 11/04/17 00:00 98.2 73 18 110/68 (82) 94 11/03/17 20:00 98.3 78 18 96/61 (73) 97 11/03/17 15:37 97.5 78 20 153/70 (97) 95 11/03/17 11:50 98.3 64 20 105/67 (80) 95 I/O 11/03/17 11/03/17 11/03/17 11/04/17 11/04/17 11/04/17 06:59 14:59 22:59 06:59 14:59 22:59 Intake Total 1450 ml 720 ml Balance 1450 ml 720 ml Intake Oral 1450 ml 720 ml # Voids 5 3 2 # Bowel Movements 0 0 Imaging Last Impressions Wrist MRI 10/05/17 0000 Signed Impressions: Service Date/Time: Thursday, October 05, 2017 12:00 - CONCLUSION: 1. No evidence of osteomyelitis. 2. Effusion in the proximal carpal row and in the radiocarpal joint. Fermin Duggan MD Upper Extremity Ultrasound 10/03/17 0000 Signed Impressions: Service Date/Time: Monday, October 02, 2017 14:57 - CONCLUSION: 1. Negative for deep venous thrombosis right upper extremity. Fermin Duggan MD Wrist X-Ray 10/02/17 0000 Signed Impressions: Service Date/Time: Monday, October 02, 2017 10:18 - CONCLUSION: Unremarkable exam. No significant change compared to the prior study. Wade Butler MD Renal Ultrasound 09/24/17 0000 Signed Impressions: Service Date/Time: Sunday, September 24, 2017 09:53 - CONCLUSION: Negative for stone or obstruction. Silvestre Iniguez MD FACR Head CT 08/28/17 0000 Signed Impressions: Service Date/Time: Monday, August 28, 2017 06:05 - CONCLUSION: 1. No acute intracranial hemorrhage. 2. Stable diffuse bilateral cortical atrophy. 3. No significant change compared to the prior exam. Wade Butler MD Cervical Spine CT 08/28/17 0000 Signed Impressions: Service Date/Time: Monday, August 28, 2017 06:08 - CONCLUSION: 1. No acute bony fracture. 2. Stable diffuse primary degenerative changes involving the cervical spine. 3. No new or significant changes. Wade Butler MD Objective Remarks GENERAL: Alert, NAD. SKIN: Warm and dry. HEAD: Normocephalic. EYES: No scleral icterus. No injection or drainage. NECK: Supple, trachea midline. No JVD or lymphadenopathy. CARDIOVASCULAR: Regular rate and rhythm without murmurs, gallops, or rubs. RESPIRATORY: Breath sounds equal bilaterally. No accessory muscle use. GASTROINTESTINAL: Abdomen soft, non-tender, nondistended. MUSCULOSKELETAL: No cyanosis, or edema. BACK: Nontender without obvious deformity. No CVA tenderness. Procedures None A/P Problem List: (1) Encephalopathy ICD Code: G93.40 - Encephalopathy Status: Acute (2) Alcohol-induced mood disorder ICD Code: F10.94 - Alcohol use, unspecified with alcohol-induced mood disorder Status: Acute (3) Debility ICD Code: R53.81 - Other malaise (4) COPD (chronic obstructive pulmonary disease) ICD Code: J44.9 - COPD (chronic obstructive pulmonary disease) Status: Chronic (5) PTSD (post-traumatic stress disorder) ICD Code: F43.10 - Post-traumatic stress disorder, unspecified Assessment and Plan 62-year-old male patient of an [facility] who was sent [facility] his [facility] for aggressive behavior and altered mental status. The patient's medical history significant for bipolar disorder, seizure disorder, gout, chronic back pain, COPD, hypertension, hep B and C, and dyslipidemia. In the ER the patient was combative and attempted to urinate on himself. He received multiple doses of Benadryl, Haldol, and Ativan. The patient was admitted and treated for encephalopathy and behavioral disturbances. Psychiatry was consulted who lifted the Avelar act and increased the patient's Seroquel. His mental status much improved. Patient has significant debility likely secondary to chronic alcohol abuse and needs further rehabilitation to get stronger. Currently awaiting placement. Anorexia - Calorie count shows that the patient doesn't get enough calories- however the patient is refusing PEG placement. - continue with supplements and encourage p.o. intake. UTI growing E. Coli Elevated PSA - treated with Levaquin. -Urology consulted for elevated PSA, recommendations appreciated -continue Flomax. Repeat [facility] outpatient. Aggressive behavior, encephalopathy: improving the Avelar act was lifted by psychiatry Continue Seroquel, sertraline. Currently on lactulose. Right wrist pain and swelling, improving. X ray reviewed, no fracture. US negative. Pain control with norco as need prn pain scale. MRI 10/05/17 of right wrist reviewed negative. - Will give Naproxen 375mg Q8hrs X 7 days. Thrombocytopenia: -Chronic, at baseline. PLTs stable, H&H stable with no reported bleeding. Seizure disorder: -Continue Depakote, Keppra. Seizure precautions. PTSD, personality disorder: -evaluated by psych. -Continue Seroquel. Trazodone daily at bedtime. COPD: - currently stable on room air. Generalized weakness: - Patient has chronic debility likely secondary to chronic alcohol abuse. - Continue PT DVT prophylaxis: Lovenox. Christos Menjivar DO Nov 04, 2017 11:22 am
[2017-11-04 11:56] VITALS: BP 102/73; PULSE 79; RESP 20; TEMP 97.7; O2SAT 96
[2017-11-04] MEDS: NAPROXEN 375 MG TAB PO SCH ×2 (15:22→23:07)
[2017-11-04 15:52] VITALS: BP 145/84; PULSE 65; RESP 20; TEMP 98.1; O2SAT 97
[2017-11-04 20:00] VITALS: BP 101/61; PULSE 65; RESP 18; TEMP 99.3; O2SAT 96
[2017-11-04] MEDS: QUEtiapine FUMARATE 25 MG TAB PO SCH (23:07)
[2017-11-04] MEDS: ACETAMINOPHEN/HYDROcodone 325 MG/5 MG TAB PO PRN (23:07)
[2017-11-04] MEDS: traZODone HCL 100 MG TAB PO SCH (23:07)
[2017-11-04] MEDS: DIVALPROEX SODIUM E.R. 500 MG TAB PO SCH (23:08)
[2017-11-05] VITALS: BP 120/75; PULSE 65; RESP 18; TEMP 98.6; O2SAT 94
[2017-11-05 04:00] VITALS: BP 105/72; PULSE 60; RESP 17; TEMP 97.6; O2SAT 98
[2017-11-05] MEDS: NAPROXEN 375 MG TAB PO SCH ×3 (05:43→20:58)
[2017-11-05] MEDS: SODIUM CHLORIDE 0.9% FLUSH 10 ML FLUSH IV FLUSH SCH ×2 (09:00→21:00)
[2017-11-05] MEDS: LACTULOSE SYRUP 20 GM/30 ML CUP PO SCH ×2 (09:50→20:59)
[2017-11-05] MEDS: levETIRAcetam 500 MG TAB PO SCH ×2 (09:51→20:59)
[2017-11-05] MEDS: MULTIVITAMIN TAB PO SCH (09:51)
[2017-11-05] MEDS: DOCUSATE SODIUM 50 MG/SENNA 8.6 MG TAB PO SCH ×2 (09:51→20:58)
[2017-11-05] MEDS: SERTRALINE HCL 100 MG TAB PO SCH (09:51)
[2017-11-05] MEDS: ENOXAPARIN SODIUM 30 MG/0.3 ML SYRINGE SQ SCH (09:53)
[2017-11-05] MEDS: ACETAMINOPHEN/HYDROcodone 325 MG/5 MG TAB PO PRN ×2 (09:58→20:59)
[2017-11-05 12:00] VITALS: BP 100/66; PULSE 61; RESP 18; TEMP 98.2; O2SAT 97
--- NOTE | 2017-11-05 15:02 | HHI.PR ---
Subjective Remarks Follow up for aggressive behavior, Seizure disorder. Patient is currently resting well. No acute concerns. Objective Vitals Vital Signs Date Time Temp Pulse Resp B/P (MAP) Pulse Ox O2 Delivery O2 Flow Rate FiO2 11/05/17 12:00 98.2 61 18 100/66 (77) 97 11/05/17 06:45 18 11/05/17 04:00 97.6 60 17 105/72 (83) 98 11/05/17 00:08 18 11/05/17 00:00 98.6 65 18 120/75 (90) 94 11/04/17 20:00 99.3 65 18 101/61 (74) 96 11/04/17 15:52 98.1 65 20 145/84 (104) 97 I/O 11/04/17 11/04/17 11/04/17 11/05/17 11/05/17 11/05/17 07:00 15:00 23:00 07:00 15:00 23:00 Intake Total 660 ml Balance 660 ml Intake Oral 660 ml # Voids 2 4 1 # Bowel Movements 0 0 Objective Remarks GENERAL: Alert, NAD. SKIN: Warm and dry. HEAD: Normocephalic. EYES: No scleral icterus. No injection or drainage. NECK: Supple, trachea midline. No JVD or lymphadenopathy. CARDIOVASCULAR: Regular rate and rhythm without murmurs, gallops, or rubs. RESPIRATORY: Breath sounds equal bilaterally. No accessory muscle use. GASTROINTESTINAL: Abdomen soft, non-tender, nondistended. MUSCULOSKELETAL: No cyanosis, or edema. BACK: Nontender without obvious deformity. No CVA tenderness. Procedures None A/P Problem List: (1) Encephalopathy ICD Code: G93.40 - Encephalopathy Status: Acute (2) Alcohol-induced mood disorder ICD Code: F10.94 - Alcohol use, unspecified with alcohol-induced mood disorder Status: Acute (3) Debility ICD Code: R53.81 - Other malaise (4) COPD (chronic obstructive pulmonary disease) ICD Code: J44.9 - COPD (chronic obstructive pulmonary disease) Status: Chronic (5) PTSD (post-traumatic stress disorder) ICD Code: F43.10 - Post-traumatic stress disorder, unspecified Assessment and Plan 62-year-old male patient of an [facility] who was sent from his [facility] for aggressive behavior and altered mental status. The patient's medical history significant for bipolar disorder, seizure disorder, gout, chronic back pain, COPD, hypertension, hep B and C, and dyslipidemia. In the ER the patient was combative and attempted to urinate on himself. He received multiple doses of Benadryl, Haldol, and Ativan. The patient was admitted and treated for encephalopathy and behavioral disturbances. Psychiatry was consulted who lifted the Avelar act and increased the patient's Seroquel. His mental status much improved. Patient has significant debility likely secondary to chronic alcohol abuse and needs further rehabilitation to get stronger. Currently awaiting placement. Anorexia - Calorie count shows that the patient doesn't get enough calories- however the patient is refusing PEG placement. - continue with supplements and encourage p.o. intake. UTI growing E. Coli Elevated PSA - treated with Levaquin. -Urology consulted for elevated PSA, recommendations appreciated -continue Flomax. Repeat [facility] outpatient. Aggressive behavior, encephalopathy: improving the Avelar act was lifted by psychiatry Continue Seroquel, sertraline. Currently on lactulose. Right wrist pain and swelling, improving. X ray reviewed, no fracture. US negative. Pain control with norco as need prn pain scale. MRI 10/05/17 of right wrist reviewed negative. - Naproxen 375mg Q8hrs X 7 days. Thrombocytopenia: -Chronic, at baseline. PLTs stable, H&H stable with no reported bleeding. Seizure disorder: -Continue Depakote, Keppra. Seizure precautions. PTSD, personality disorder: -evaluated by psych. -Continue Seroquel. Trazodone daily at bedtime. COPD: - currently stable on room air. Generalized weakness: - Patient has chronic debility likely secondary to chronic alcohol abuse. - Continue PT DNR. DVT prophylaxis: Lovenox. 11/05/2017 : No acute changes in management. Christos Menjivar DO Nov 05, 2017 3:02 pm
[2017-11-05 16:00] VITALS: BP 99/64; PULSE 80; RESP 18; TEMP 98; O2SAT 96
[2017-11-05 20:00] VITALS: BP 106/77; PULSE 80; RESP 18; TEMP 98.7; O2SAT 98
[2017-11-05] MEDS: traZODone HCL 100 MG TAB PO SCH (20:58)
[2017-11-05] MEDS: DIVALPROEX SODIUM E.R. 500 MG TAB PO SCH (20:58)
[2017-11-05] MEDS: QUEtiapine FUMARATE 25 MG TAB PO SCH (20:59)
[2017-11-06 00:30] VITALS: BP 103/67; PULSE 102; RESP 16; TEMP 97.2; O2SAT 98
[2017-11-06 05:09] VITALS: BP 100/58; PULSE 86; RESP 14; TEMP 98.6; O2SAT 95
[2017-11-06] MEDS: NAPROXEN 375 MG TAB PO SCH ×3 (05:42→22:04)
[2017-11-06 08:00] VITALS: BP 94/51; PULSE 55; RESP 18; TEMP 97.5; O2SAT 98
[2017-11-06] MEDS: SODIUM CHLORIDE 0.9% FLUSH 10 ML FLUSH IV FLUSH SCH ×2 (09:00→21:00)
[2017-11-06] MEDS: levETIRAcetam 500 MG TAB PO SCH ×2 (09:22→22:04)
[2017-11-06] MEDS: SERTRALINE HCL 100 MG TAB PO SCH (09:22)
[2017-11-06] MEDS: MULTIVITAMIN TAB PO SCH (09:23)
[2017-11-06] MEDS: LACTULOSE SYRUP 20 GM/30 ML CUP PO SCH ×2 (09:23→21:00)
[2017-11-06] MEDS: DOCUSATE SODIUM 50 MG/SENNA 8.6 MG TAB PO SCH ×2 (09:23→21:00)
[2017-11-06] MEDS: ENOXAPARIN SODIUM 30 MG/0.3 ML SYRINGE SQ SCH (09:24)
[2017-11-06 12:00] VITALS: BP 101/66; PULSE 60; RESP 18; TEMP 98.7; O2SAT 96
[2017-11-06 16:00] VITALS: BP 112/69; PULSE 64; RESP 18; TEMP 98.1; O2SAT 97
--- NOTE | 2017-11-06 16:17 | HHI.PR ---
Subjective Remarks Follow up for aggressive behavior, Seizure disorder. Patient is doing well. No acute concerns. Objective Vitals Vital Signs Date Time Temp Pulse Resp B/P (MAP) Pulse Ox O2 Delivery O2 Flow Rate FiO2 11/06/17 12:00 98.7 60 18 101/66 (78) 96 11/06/17 08:00 97.5 55 18 94/51 (65) 98 11/06/17 06:53 18 11/06/17 05:09 98.6 86 14 100/58 (72) 95 11/06/17 00:30 97.2 102 16 103/67 (79) 98 11/05/17 21:59 18 11/05/17 20:00 98.7 80 18 106/77 (87) 98 I/O 11/05/17 11/05/17 11/05/17 11/06/17 11/06/17 11/06/17 07:00 15:00 23:00 07:00 15:00 23:00 # Voids 1 # Bowel Movements 0 Objective Remarks GENERAL: Alert, NAD. SKIN: Warm and dry. HEAD: Normocephalic. EYES: No scleral icterus. No injection or drainage. NECK: Supple, trachea midline. No JVD or lymphadenopathy. CARDIOVASCULAR: Regular rate and rhythm without murmurs, gallops, or rubs. RESPIRATORY: Breath sounds equal bilaterally. No accessory muscle use. GASTROINTESTINAL: Abdomen soft, non-tender, nondistended. MUSCULOSKELETAL: No cyanosis, or edema. BACK: Nontender without obvious deformity. No CVA tenderness. Procedures None A/P Problem List: (1) Encephalopathy ICD Code: G93.40 - Encephalopathy Status: Acute (2) Alcohol-induced mood disorder ICD Code: F10.94 - Alcohol use, unspecified with alcohol-induced mood disorder Status: Acute (3) Debility ICD Code: R53.81 - Other malaise (4) COPD (chronic obstructive pulmonary disease) ICD Code: J44.9 - COPD (chronic obstructive pulmonary disease) Status: Chronic (5) PTSD (post-traumatic stress disorder) ICD Code: F43.10 - Post-traumatic stress disorder, unspecified Assessment and Plan 62-year-old male patient of an [facility] who was sent [facility] his [facility] for aggressive behavior and altered mental status. The patient's medical history significant for bipolar disorder, seizure disorder, gout, chronic back pain, COPD, hypertension, hep B and C, and dyslipidemia. In the ER the patient was combative and attempted to urinate on himself. He received multiple doses of Benadryl, Haldol, and Ativan. The patient was admitted and treated for encephalopathy and behavioral disturbances. Psychiatry was consulted who lifted the Avelar act and increased the patient's Seroquel. His mental status much improved. Patient has significant debility likely secondary to chronic alcohol abuse and needs further rehabilitation to get stronger. Currently awaiting placement. Anorexia - Calorie count shows that the patient doesn't get enough calories- however the patient is refusing PEG placement. - continue with supplements and encourage p.o. intake. UTI growing E. Coli Elevated PSA - treated with Levaquin. -Urology consulted for elevated PSA, recommendations appreciated -continue Flomax. Repeat [facility] outpatient. Aggressive behavior, encephalopathy: improving the Avelar act was lifted by psychiatry Continue Seroquel, sertraline. Currently on lactulose. Right wrist pain and swelling, improving. X ray reviewed, no fracture. US negative. Pain control with norco as need prn pain scale. MRI 10/05/17 of right wrist reviewed negative. - Naproxen 375mg Q8hrs X 7 days. Thrombocytopenia: -Chronic, at baseline. PLTs stable, H&H stable with no reported bleeding. Seizure disorder: -Continue DepagustinteLannyra. Seizure precautions. PTSD, personality disorder: -evaluated by psych. -Continue Seroquel. Trazodone daily at bedtime. COPD: - currently stable on room air. Generalized weakness: - Patient has chronic debility likely secondary to chronic alcohol abuse. - Continue PT DNR. DVT prophylaxis: Lovenox. 11/06/2017 : No acute changes in management. Christos Menjivar DO Nov 06, 2017 4:17 pm
[2017-11-06 20:00] VITALS: BP 123/65; PULSE 69; RESP 16; TEMP 97.9; O2SAT 98
[2017-11-06] MEDS: DIVALPROEX SODIUM E.R. 500 MG TAB PO SCH (22:03)
[2017-11-06] MEDS: traZODone HCL 100 MG TAB PO SCH (22:03)
[2017-11-06] MEDS: QUEtiapine FUMARATE 25 MG TAB PO SCH (22:04)
[2017-11-07] VITALS: BP_SYST 126; BP_SYST 136; BP_DIAS 75; BP_DIAS 82; PULSE 74; PULSE 99; RESP 16; TEMP 97.1; TEMP 97.7; O2SAT 96; O2SAT 99
[2017-11-07 04:00] VITALS: BP 104/57; PULSE 107; RESP 18; TEMP 98.2; O2SAT 93
[2017-11-07] MEDS: NAPROXEN 375 MG TAB PO SCH ×3 (05:58→23:07)
[2017-11-07 08:00] VITALS: BP 130/73; PULSE 62; RESP 18; TEMP 97.2; O2SAT 99
[2017-11-07] MEDS: SODIUM CHLORIDE 0.9% FLUSH 10 ML FLUSH IV FLUSH SCH ×2 (09:00→21:00)
[2017-11-07] MEDS: SERTRALINE HCL 100 MG TAB PO SCH (09:02)
[2017-11-07] MEDS: LACTULOSE SYRUP 20 GM/30 ML CUP PO SCH ×2 (09:03→23:07)
[2017-11-07] MEDS: levETIRAcetam 500 MG TAB PO SCH ×2 (09:03→23:07)
[2017-11-07] MEDS: MULTIVITAMIN TAB PO SCH (09:03)
[2017-11-07] MEDS: ENOXAPARIN SODIUM 30 MG/0.3 ML SYRINGE SQ SCH (09:04)
[2017-11-07] MEDS: DOCUSATE SODIUM 50 MG/SENNA 8.6 MG TAB PO SCH ×2 (09:04→23:08)
[2017-11-07 12:00] VITALS: BP 125/82; PULSE 66; RESP 18; TEMP 98; O2SAT 97
[2017-11-07 16:00] VITALS: BP 120/75; PULSE 77; RESP 18; TEMP 98.9; O2SAT 96
[2017-11-07 20:00] VITALS: BP 108/66; PULSE 73; RESP 18; TEMP 98.3; O2SAT 99
--- NOTE | 2017-11-07 20:56 | HHI.PR ---
Subjective Remarks Follow up for aggressive behavior, Seizure disorder. Patient is currently resting in bed.No acute concerns. Objective Vitals Vital Signs Date Time Temp Pulse Resp B/P (MAP) Pulse Ox O2 Delivery O2 Flow Rate FiO2 11/07/17 20:00 98.3 73 18 108/66 (80) 99 11/07/17 16:00 98.9 77 18 120/75 (90) 96 11/07/17 12:00 98.0 66 18 125/82 (96) 97 11/07/17 08:00 97.2 62 18 130/73 (92) 99 11/07/17 04:00 98.2 107 18 104/57 (73) 93 11/07/17 00:00 97.7 99 16 126/75 (92) 99 11/07/17 00:00 97.1 74 16 136/82 (100) 96 I/O 11/06/17 11/06/17 11/06/17 11/07/17 11/07/17 11/07/17 07:00 15:00 23:00 07:00 15:00 23:00 # Voids 3 # Bowel Movements 1 Objective Remarks GENERAL: Alert, NAD. SKIN: Warm and dry. HEAD: Normocephalic. EYES: No scleral icterus. No injection or drainage. NECK: Supple, trachea midline. No JVD or lymphadenopathy. CARDIOVASCULAR: Regular rate and rhythm without murmurs, gallops, or rubs. RESPIRATORY: Breath sounds equal bilaterally. No accessory muscle use. GASTROINTESTINAL: Abdomen soft, non-tender, nondistended. MUSCULOSKELETAL: No cyanosis, or edema. BACK: Nontender without obvious deformity. No CVA tenderness. Procedures None A/P Problem List: (1) Encephalopathy ICD Code: G93.40 - Encephalopathy Status: Acute (2) Alcohol-induced mood disorder ICD Code: F10.94 - Alcohol use, unspecified with alcohol-induced mood disorder Status: Acute (3) Debility ICD Code: R53.81 - Other malaise (4) COPD (chronic obstructive pulmonary disease) ICD Code: J44.9 - COPD (chronic obstructive pulmonary disease) Status: Chronic (5) PTSD (post-traumatic stress disorder) ICD Code: F43.10 - Post-traumatic stress disorder, unspecified Assessment and Plan 62-year-old male patient of an [facility] who was sent from his [facility] for aggressive behavior and altered mental status. The patient's medical history significant for bipolar disorder, seizure disorder, gout, chronic back pain, COPD, hypertension, hep B and C, and dyslipidemia. In the ER the patient was combative and attempted to urinate on himself. He received multiple doses of Benadryl, Haldol, and Ativan. The patient was admitted and treated for encephalopathy and behavioral disturbances. Psychiatry was consulted who lifted the Avelar act and increased the patient's Seroquel. His mental status much improved. Patient has significant debility likely secondary to chronic alcohol abuse and needs further rehabilitation to get stronger. Currently awaiting placement. Anorexia - Calorie count shows that the patient doesn't get enough calories- however the patient is refusing PEG placement. - continue with supplements and encourage p.o. intake. UTI growing E. Coli Elevated PSA - treated with Levaquin. -Urology consulted for elevated PSA, recommendations appreciated -continue Flomax. Repeat [facility] outpatient. Aggressive behavior, encephalopathy: improving the Avelar act was lifted by psychiatry Continue Seroquel, sertraline. Currently on lactulose. Right wrist pain and swelling, improving. X ray reviewed, no fracture. US negative. Pain control with norco as need prn pain scale. MRI 10/05/17 of right wrist reviewed negative. - Naproxen 375mg Q8hrs X 7 days. Thrombocytopenia: -Chronic, at baseline. PLTs stable, H&H stable with no reported bleeding. Seizure disorder: -Continue Depakote, Keppra. Seizure precautions. PTSD, personality disorder: -evaluated by psych. -Continue Seroquel. Trazodone daily at bedtime. COPD: - currently stable on room air. Generalized weakness: - Patient has chronic debility likely secondary to chronic alcohol abuse. - Continue PT DNR. DVT prophylaxis: Lovenox. 11/07/2017 : No acute changes in management. Christos Menjivar DO Nov 07, 2017 20:56
[2017-11-07] MEDS: traZODone HCL 100 MG TAB PO SCH (23:07)
[2017-11-07] MEDS: ACETAMINOPHEN/HYDROcodone 325 MG/5 MG TAB PO PRN (23:07)
[2017-11-07] MEDS: QUEtiapine FUMARATE 25 MG TAB PO SCH (23:07)
[2017-11-07] MEDS: DIVALPROEX SODIUM E.R. 500 MG TAB PO SCH (23:08)
[2017-11-08] VITALS: BP 110/72; PULSE 70; RESP 16; TEMP 98.1; O2SAT 98
[2017-11-08 04:00] VITALS: BP 78/52; PULSE 66; RESP 16; TEMP 98; O2SAT 95
[2017-11-08] MEDS: NAPROXEN 375 MG TAB PO SCH ×3 (06:08→22:04)
[2017-11-08] MEDS: SERTRALINE HCL 100 MG TAB PO SCH (07:54)
[2017-11-08] MEDS: levETIRAcetam 500 MG TAB PO SCH ×2 (07:54→22:07)
[2017-11-08] MEDS: SODIUM CHLORIDE 0.9% FLUSH 10 ML FLUSH IV FLUSH SCH ×2 (07:55→22:07)
[2017-11-08] MEDS: LACTULOSE SYRUP 20 GM/30 ML CUP PO SCH ×2 (07:55→22:04)
[2017-11-08] MEDS: ENOXAPARIN SODIUM 30 MG/0.3 ML SYRINGE SQ SCH (07:55)
[2017-11-08] MEDS: MULTIVITAMIN TAB PO SCH (07:55)
[2017-11-08] MEDS: DOCUSATE SODIUM 50 MG/SENNA 8.6 MG TAB PO SCH ×2 (07:55→22:06)
[2017-11-08 09:04] VITALS: BP 88/55; PULSE 64; RESP 17; TEMP 98.4; O2SAT 96
[2017-11-08 12:00] VITALS: BP 115/69; PULSE 71; RESP 17; TEMP 98.5; O2SAT 97
[2017-11-08 16:00] VITALS: BP 127/76; PULSE 75; RESP 20; TEMP 98.7; O2SAT 99
--- NOTE | 2017-11-08 16:36 | HHI.PR ---
Subjective Remarks Follow up for aggressive behavior, Seizure disorder. Patient is resting in bed. No acute concerns. Objective Vitals Vital Signs Date Time Temp Pulse Resp B/P (MAP) Pulse Ox O2 Delivery O2 Flow Rate FiO2 11/08/17 12:32 16 11/08/17 12:00 98.5 71 17 115/69 (84) 97 11/08/17 09:04 98.4 64 17 88/55 (66) 96 11/08/17 04:00 98.0 66 16 78/52 (61) 95 11/08/17 00:29 18 11/08/17 00:00 98.1 70 16 110/72 (85) 98 11/07/17 20:00 98.3 73 18 108/66 (80) 99 I/O 11/07/17 11/07/17 11/07/17 11/08/17 11/08/17 11/08/17 07:00 15:00 23:00 07:00 15:00 23:00 # Voids 3 2 Objective Remarks GENERAL: Alert, NAD. SKIN: Warm and dry. HEAD: Normocephalic. EYES: No scleral icterus. No injection or drainage. NECK: Supple, trachea midline. No JVD or lymphadenopathy. CARDIOVASCULAR: Regular rate and rhythm without murmurs, gallops, or rubs. RESPIRATORY: Breath sounds equal bilaterally. No accessory muscle use. GASTROINTESTINAL: Abdomen soft, non-tender, nondistended. MUSCULOSKELETAL: No cyanosis, or edema. BACK: Nontender without obvious deformity. No CVA tenderness. Procedures None A/P Problem List: (1) Encephalopathy ICD Code: G93.40 - Encephalopathy Status: Acute (2) Alcohol-induced mood disorder ICD Code: F10.94 - Alcohol use, unspecified with alcohol-induced mood disorder Status: Acute (3) Debility ICD Code: R53.81 - Other malaise (4) COPD (chronic obstructive pulmonary disease) ICD Code: J44.9 - COPD (chronic obstructive pulmonary disease) Status: Chronic (5) PTSD (post-traumatic stress disorder) ICD Code: F43.10 - Post-traumatic stress disorder, unspecified Assessment and Plan 62-year-old male patient of an [facility] who was sent from his [facility] for aggressive behavior and altered mental status. The patient's medical history significant for bipolar disorder, seizure disorder, gout, chronic back pain, COPD, hypertension, hep B and C, and dyslipidemia. In the ER the patient was combative and attempted to urinate on himself. He received multiple doses of Benadryl, Haldol, and Ativan. The patient was admitted and treated for encephalopathy and behavioral disturbances. Psychiatry was consulted who lifted the Avelar act and increased the patient's Seroquel. His mental status much improved. Patient has significant debility likely secondary to chronic alcohol abuse and needs further rehabilitation to get stronger. Currently awaiting placement. Anorexia - Calorie count shows that the patient doesn't get enough calories- however the patient is refusing PEG placement. - continue with supplements and encourage p.o. intake. UTI growing E. Coli Elevated PSA - treated with Levaquin. -Urology consulted for elevated PSA, recommendations appreciated -continue Flomax. Repeat [facility] outpatient. Aggressive behavior, encephalopathy: improving the Avelar act was lifted by psychiatry Continue Seroquel, sertraline. Currently on lactulose. Right wrist pain and swelling, improving. X ray reviewed, no fracture. US negative. Pain control with norco as need prn pain scale. MRI 10/05/17 of right wrist reviewed negative. - Naproxen 375mg Q8hrs X 7 days. Thrombocytopenia: -Chronic, at baseline. PLTs stable, H&H stable with no reported bleeding. Seizure disorder: -Continue David Luther. Seizure precautions. PTSD, personality disorder: -evaluated by psych. -Continue Seroquel. Trazodone daily at bedtime. COPD: - currently stable on room air. Generalized weakness: - Patient has chronic debility likely secondary to chronic alcohol abuse. - Continue PT DNR. DVT prophylaxis: Lovenox. 11/08/2017 : No acute changes in management. Christos Menjivar DO Nov 08, 2017 4:36 pm
[2017-11-08] MEDS: DIVALPROEX SODIUM E.R. 500 MG TAB PO SCH (22:04)
[2017-11-08] MEDS: QUEtiapine FUMARATE 25 MG TAB PO SCH (22:05)
[2017-11-08] MEDS: traZODone HCL 100 MG TAB PO SCH (22:05)
[2017-11-08] MEDS: ACETAMINOPHEN/HYDROcodone 325 MG/5 MG TAB PO PRN (22:06)
[2017-11-08 23:20] VITALS: BP 122/66; PULSE 61; RESP 18; TEMP 97.3; O2SAT 95
[2017-11-09 02:42] VITALS: BP 98/65; PULSE 80; RESP 18; TEMP 98.1; O2SAT 95
[2017-11-09 06:00] VITALS: BP 100/65; PULSE 85; RESP 18; TEMP 98.5; O2SAT 99
[2017-11-09] MEDS: NAPROXEN 375 MG TAB PO SCH ×3 (06:31→21:26)
[2017-11-09 08:00] VITALS: BP 93/52; PULSE 61; RESP 18; TEMP 97.8; O2SAT 96
[2017-11-09] MEDS: levETIRAcetam 500 MG TAB PO SCH ×2 (09:00→21:26)
[2017-11-09] MEDS: SERTRALINE HCL 100 MG TAB PO SCH (09:00)
[2017-11-09] MEDS: LACTULOSE SYRUP 20 GM/30 ML CUP PO SCH ×2 (09:00→21:27)
[2017-11-09] MEDS: ENOXAPARIN SODIUM 30 MG/0.3 ML SYRINGE SQ SCH (09:00)
[2017-11-09] MEDS: SODIUM CHLORIDE 0.9% FLUSH 10 ML FLUSH IV FLUSH SCH ×2 (09:00→21:30)
[2017-11-09] MEDS: DOCUSATE SODIUM 50 MG/SENNA 8.6 MG TAB PO SCH ×2 (09:00→21:25)
[2017-11-09] MEDS: MULTIVITAMIN TAB PO SCH (09:00)
[2017-11-09 12:00] VITALS: BP 102/63; PULSE 60; RESP 18; TEMP 98; O2SAT 96
[2017-11-09 16:00] VITALS: BP 91/51; PULSE 62; RESP 18; TEMP 98.4; O2SAT 93
[2017-11-09 20:27] VITALS: BP 107/79; PULSE 88; RESP 18; TEMP 97.3; O2SAT 95
--- NOTE | 2017-11-09 20:57 | HHI.PR ---
Subjective Remarks Follow up for aggressive behavior, Seizure disorder. Patient is resting in bed. No acute concerns. However, per nursing, he does not eat well consistently. However, he is able to eat when he wants to. Objective Vitals Vital Signs Date Time Temp Pulse Resp B/P (MAP) Pulse Ox O2 Delivery O2 Flow Rate FiO2 11/09/17 20:27 97.3 88 18 107/79 (88) 95 11/09/17 16:00 98.4 62 18 91/51 (64) 93 11/09/17 12:00 98.0 60 18 102/63 (76) 96 11/09/17 08:00 97.8 61 18 93/52 (66) 96 11/09/17 07:37 18 11/09/17 06:00 98.5 85 18 100/65 (77) 99 11/09/17 02:42 98.1 80 18 98/65 (76) 95 11/08/17 23:20 97.3 61 18 122/66 (84) 95 11/08/17 23:05 18 I/O 11/08/17 11/08/17 11/08/17 11/09/17 11/09/17 11/09/17 06:59 14:59 22:59 06:59 14:59 22:59 Intake Total 480 ml Balance 480 ml Intake Oral 480 ml # Voids 2 3 3 # Bowel Movements 1 1 Objective Remarks GENERAL: Alert, NAD. SKIN: Warm and dry. HEAD: Normocephalic. EYES: No scleral icterus. No injection or drainage. NECK: Supple, trachea midline. No JVD or lymphadenopathy. CARDIOVASCULAR: Regular rate and rhythm without murmurs, gallops, or rubs. RESPIRATORY: Breath sounds equal bilaterally. No accessory muscle use. GASTROINTESTINAL: Abdomen soft, non-tender, nondistended. MUSCULOSKELETAL: No cyanosis, or edema. BACK: Nontender without obvious deformity. No CVA tenderness. Procedures None A/P Problem List: (1) Encephalopathy ICD Code: G93.40 - Encephalopathy Status: Acute (2) Alcohol-induced mood disorder ICD Code: F10.94 - Alcohol use, unspecified with alcohol-induced mood disorder Status: Acute (3) Debility ICD Code: R53.81 - Other malaise (4) COPD (chronic obstructive pulmonary disease) ICD Code: J44.9 - COPD (chronic obstructive pulmonary disease) Status: Chronic (5) PTSD (post-traumatic stress disorder) ICD Code: F43.10 - Post-traumatic stress disorder, unspecified Assessment and Plan 62-year-old male patient of an [facility] who was sent from his [facility] for aggressive behavior and altered mental status. The patient's medical history significant for bipolar disorder, seizure disorder, gout, chronic back pain, COPD, hypertension, hep B and C, and dyslipidemia. In the ER the patient was combative and attempted to urinate on himself. He received multiple doses of Benadryl, Haldol, and Ativan. The patient was admitted and treated for encephalopathy and behavioral disturbances. Psychiatry was consulted who lifted the Avelar act and increased the patient's Seroquel. His mental status much improved. Patient has significant debility likely secondary to chronic alcohol abuse and needs further rehabilitation to get stronger. Currently awaiting placement. Anorexia - Calorie count shows that the patient doesn't get enough calories. Patient has refused PEG tube in the past. However, per RN, he is willing to undergo PEG tube placement. - Will discuss with pt. If a PEG tube is placed, he may pull it out. - continue with supplements and encourage p.o. intake. UTI growing E. Coli Elevated PSA - treated with Levaquin. -Urology consulted for elevated PSA, recommendations appreciated -continue Flomax. Repeat [facility] outpatient. Aggressive behavior, encephalopathy: improving the Avelar act was lifted by psychiatry Continue Seroquel, sertraline. Currently on lactulose. Right wrist pain and swelling, improving. X ray reviewed, no fracture. US negative. Pain control with norco as need prn pain scale. MRI 10/05/17 of right wrist reviewed negative. - Received Naproxen 375mg Q8hrs X 7 days. Thrombocytopenia: -Chronic, at baseline. PLTs stable, H&H stable with no reported bleeding. Seizure disorder: -Continue Depakote, Keppra. Seizure precautions. PTSD, personality disorder: -evaluated by psych. -Continue Seroquel. Trazodone daily at bedtime. COPD: - currently stable on room air. Generalized weakness: - Patient has chronic debility likely secondary to chronic alcohol abuse. - Continue PT DNR. DVT prophylaxis: Lovenox. Christos Menjivar DO Nov 09, 2017 20:57
[2017-11-09] MEDS: traZODone HCL 100 MG TAB PO SCH (21:26)
[2017-11-09] MEDS: DIVALPROEX SODIUM E.R. 500 MG TAB PO SCH (21:26)
[2017-11-09] MEDS: QUEtiapine FUMARATE 25 MG TAB PO SCH (21:26)
[2017-11-10 00:42] VITALS: BP 100/60; PULSE 73; RESP 18; TEMP 99.1; O2SAT 98
[2017-11-10 04:00] VITALS: BP 116/58; PULSE 80; RESP 18; TEMP 97.6; O2SAT 94
[2017-11-10] MEDS: NAPROXEN 375 MG TAB PO SCH ×3 (06:24→22:21)
[2017-11-10 08:27] VITALS: BP 109/69; PULSE 90; RESP 18; TEMP 98.3; O2SAT 92
[2017-11-10] MEDS: SERTRALINE HCL 100 MG TAB PO SCH (09:00)
[2017-11-10] MEDS: SODIUM CHLORIDE 0.9% FLUSH 10 ML FLUSH IV FLUSH SCH ×2 (09:00→21:00)
[2017-11-10] MEDS: levETIRAcetam 500 MG TAB PO SCH ×2 (09:25→22:19)
[2017-11-10] MEDS: ENOXAPARIN SODIUM 30 MG/0.3 ML SYRINGE SQ SCH (09:25)
[2017-11-10] MEDS: LACTULOSE SYRUP 20 GM/30 ML CUP PO SCH ×2 (09:25→22:22)
[2017-11-10] MEDS: MULTIVITAMIN TAB PO SCH (09:25)
[2017-11-10] MEDS: DOCUSATE SODIUM 50 MG/SENNA 8.6 MG TAB PO SCH ×2 (09:25→22:22)
[2017-11-10 12:10] VITALS: BP 88/51; PULSE 69; RESP 18; TEMP 98.7; O2SAT 94
--- NOTE | 2017-11-10 13:15 | HHI.HCPN ---
Reason for visit a. To assist with evaluation and management of symptoms including: Pain b. To assist medical decision maker(s) with: better understanding of current medical conditions; weighing benefits/burdens of medical treatment options; making medical treatment decisions. Subjective/Interval History Follow up for symptom management and further clarification of goals. Patient is sleeping and is easily arousable. Lunch tray on bedside table per nursing staff patient he has been spending more time sleeping than awake. Patient is hard of hearing, complaining of pain to his back at this time. Patient is not willing to converse or eat his lunch at this time-patient wants to sleep. Patient was started on naproxen 375 mg every 8 hours ATC. Acetaminophen 500 mg every 4 hours prn. Patient also his hydrocodone/acetaminophen 5/325 every 6 hours prn. Patient sparingly needing pain medication. Patient intake appears to have improved to 50-100% for most of his meals. Last lab work results on 10/25/17 revealed sodium 141, potassium 3.7, BUN/ creatinine 11/0.94, random glucose 87 calcium 8.7 Case management assisting with placement. . Family/friend interactions No family at bedside . Advance Directives Living Will: Never completed Health Care Surrogate: Never completed Durable Power of Termite Treater Helper: Never completed Advance Directive Specifics Health Care Surrogate(s): Health care Surrogate -Significant other-Anna McadamsZbnoxpkb-[phone] . Objective Vital Signs Date Time Temp Pulse Resp B/P (MAP) Pulse Ox O2 Delivery O2 Flow Rate FiO2 11/10/17 12:10 98.7 69 18 88/51 (63) 94 11/10/17 08:27 98.3 90 18 109/69 (82) 92 11/10/17 04:00 97.6 80 18 116/58 (77) 94 11/10/17 00:42 99.1 73 18 100/60 (73) 98 11/09/17 20:27 97.3 88 18 107/79 (88) 95 11/09/17 16:00 98.4 62 18 91/51 (64) 93 Physical Exam CONSTITUTIONAL/GENERAL: This is an adequately nourished patient, in no apparent distress. Complaining of back pain TUBES/LINES/DRAINS: SKIN: No jaundice, rashes, or lesions. Ecchymoses on upper extremities. No wounds seen anteriorly. Skin temperature appropriate. Not diaphoretic. HEAD: Atraumatic. Normocephalic. EYES: Pupils equal and round and reactive. Extraocular motions intact. No scleral icterus. No injection or drainage. Fundi not examined. ENT: Hard of Hearing.Nose without bleeding or purulent drainage. NECK: Trachea midline. Supple, nontender. CARDIOVASCULAR: Regular rate and rhythm without murmurs, gallops, or rubs. No JVD. Peripheral pulses symmetric. RESPIRATORY/CHEST: Symmetric, unlabored respirations. Clear to auscultation. Breath sounds equal bilaterally. No wheezes, rales, or rhonchi. GASTROINTESTINAL: Abdomen soft, non-tender, nondistended. No guarding. Bowel sounds present. GENITOURINARY: Without palpable bladder distension. MUSCULOSKELETAL: Extremities without clubbing, cyanosis, or edema. No joint tenderness or effusion noted. No calf tenderness. No mottling or clubbing. NEUROLOGICAL: Sleeping, arousable. Motor and sensory grossly within normal limits. Follows commands. Moves all extremities. PSYCHIATRIC: No obvious anxiety/depression. no apparent hallucinations or other psychotic thought process. . Assessment and Plan Disease Oriented Problem List: (1) Alcohol-induced mood disorder (2) PTSD (post-traumatic stress disorder) (3) Bipolar disorder (4) COPD (chronic obstructive pulmonary disease) Symptom Scale: (1) Decreased oral intake 0-10 Scale: Unable to quantify (2) Pain 0-10 Scale: Unable to quantify Comment: Multifactorial. c/o pain to Right shoulder and wrist. Wrist MRI on revealed effusion in the proximal carpal row and in the radiocarpal joint and no osteomyelitis. . Pertinent Non-Medical Issues Psychosocial:Patient was born and raised in [place]. Patient served in the [employer] during the [place] war for 6 years. He moved to [place] in the . Patient was and once. He has 2 sons whom he states he has not spoken to in about 10 years. Patient stated that the last he heard from them was about 10 years ago and at that time they were in [place], [place]. Spiritual:Patient is Congregational-Prefers Mormonism- Declined technical stenographer visit Legal:Does not have advance directives- Provide pt with HCS form Ethical issues impacting care:None identified at this time . Important Contacts Health care Surrogate -Significant other-Anna McadamsZhisvvwv-[phone] Son-Pardeep Peters-[phone] Son-Deon Heath Marker- Father- Edy Marker Wm-[phone] [place] [facility]- [facility]- Dianelys Chambers - [phone] . Prognosis Mr. Valenzuela is a 62-year-old with a past medical history of bipolar disorder, seizure disorder, gout, chronic low back pain, COPD, hypertension, chronic alcoholic pancreatitis, hepatitis B and C, dyslipidemia, and alcoholism. Patient was brought to the ER from an [facility] by EMS on August 28, 2017 to be evaluated for altered mental status, behavioral disturbances and a witnessed fall. Clinical course complicated with decreased oral intake, hypotension, urinary tract infection. . Code Status: No Code Plan PLAN: Legal decision maker: Patient is capable of participating in making his own medical decisions. In the event that he is incapacitated, patient designated his significant other Erika Mcadams to serve as his HCS. Goals: Remain aggressive short of no code. Patient awaiting placement. CODE STATUS: No Code DNR SYMPTOMS: * Pain: Multifactorial. Pain can be from bedbound, and other source for pain could be IV. Patient also had complaints of pain to his right wrist. Wrist MRI on 10/05 revealed effusion in the proximal carpal row and in the radiocarpal joint and no osteomyelitis. Pain currently managed with Hydrocodone/ acetaminophen 5/325. Sparingly needing pain medication. His last hydrocodone dose was given on 11/08/17. Patient was started on naproxen 375 mg every 8 hours ATC * Decreased oral intake: Resolved. Patient is now consuming 50-100% of his meals. Palliative care will continue to follow the patient during hospital course as condition evolves, to assist patient/decision-maker with understanding of their medical conditions, weighing benefits/burdens of treatment options, for clarification of goals of treatment. Additionally will assist with any symptoms of palliative concern Attestation To help prompt me to consider important information that might be impacting today's encounter and assessment, information from prior notes written by myself or my colleagues may have been "brought forward" into today's note. My signature on this note, however, is an attestation that I personally performed the exam, history, and/or decision-making noted today, and, unless otherwise indicated, the interactions with patient, family, and staff as well as the review of records all occurred today. I also attest that the listed assessment and stated plan reflect my best clinical judgment today based on the combination of historical information, prior notes, and today's exam/ interactions. When time spent is documented, it refers only to time spent today by the signer, or if indicated, combined time spent today by collaborating physician/nurse practitioner. Robin Dominguez Nov 10, 2017 13:15
[2017-11-10 16:44] VITALS: BP 120/69; PULSE 70; RESP 18; TEMP 98.8; O2SAT 97
[2017-11-10 20:00] VITALS: BP 117/81; PULSE 64; RESP 18; TEMP 97.2; O2SAT 95
--- NOTE | 2017-11-10 20:04 | HHI.PR ---
Subjective Remarks Follow up for aggressive behavior, Seizure disorder. Doing well. Reports decent appetite. No fever, chills. Objective Vitals Vital Signs Date Time Temp Pulse Resp B/P (MAP) Pulse Ox O2 Delivery O2 Flow Rate FiO2 11/10/17 16:44 98.8 70 18 120/69 (86) 97 11/10/17 12:10 98.7 69 18 88/51 (63) 94 11/10/17 08:27 98.3 90 18 109/69 (82) 92 11/10/17 04:00 97.6 80 18 116/58 (77) 94 11/10/17 00:42 99.1 73 18 100/60 (73) 98 11/09/17 20:27 97.3 88 18 107/79 (88) 95 I/O 11/09/17 11/09/17 11/09/17 11/10/17 11/10/17 11/10/17 07:00 15:00 23:00 07:00 15:00 23:00 Intake Total 480 ml 560 ml Balance 480 ml 560 ml Intake Oral 480 ml 560 ml # Voids 3 3 4 1 # Bowel Movements 1 1 Objective Remarks GENERAL: Alert, NAD. SKIN: Warm and dry. HEAD: Normocephalic. EYES: No scleral icterus. No injection or drainage. NECK: Supple, trachea midline. No JVD or lymphadenopathy. CARDIOVASCULAR: Regular rate and rhythm without murmurs, gallops, or rubs. RESPIRATORY: Breath sounds equal bilaterally. No accessory muscle use. GASTROINTESTINAL: Abdomen soft, non-tender, nondistended. MUSCULOSKELETAL: No cyanosis, or edema. BACK: Nontender without obvious deformity. No CVA tenderness. Procedures None A/P Problem List: (1) Encephalopathy ICD Code: G93.40 - Encephalopathy Status: Acute (2) Alcohol-induced mood disorder ICD Code: F10.94 - Alcohol use, unspecified with alcohol-induced mood disorder Status: Acute (3) Debility ICD Code: R53.81 - Other malaise (4) COPD (chronic obstructive pulmonary disease) ICD Code: J44.9 - COPD (chronic obstructive pulmonary disease) Status: Chronic (5) PTSD (post-traumatic stress disorder) ICD Code: F43.10 - Post-traumatic stress disorder, unspecified Assessment and Plan 62-year-old male patient of an RETIREMENT who was sent from his [facility]E for aggressive behavior and altered mental status. The patient's medical history significant for bipolar disorder, seizure disorder, gout, chronic back pain, COPD, hypertension, hep B and C, and dyslipidemia. In the ER the patient was combative and attempted to urinate on himself. He received multiple doses of Benadryl, Haldol, and Ativan. The patient was admitted and treated for encephalopathy and behavioral disturbances. Psychiatry was consulted who lifted the Avelar act and increased the patient's Seroquel. His mental status much improved. Patient has significant debility likely secondary to chronic alcohol abuse and needs further rehabilitation to get stronger. Currently awaiting placement. Anorexia - Calorie count shows that the patient doesn't get enough calories. Patient has refused PEG tube in the past. However, per RN, he is willing to undergo PEG tube placement. - Patient is eating 50% of his meals and reports good appetite. - PEG tube placement may not be necessary at this point. UTI growing E. Coli Elevated PSA - treated with Levaquin. -Urology consulted for elevated PSA, recommendations appreciated -continue Flomax. Repeat [facility] outpatient. Aggressive behavior, encephalopathy: improving the Avelar act was lifted by psychiatry Continue Seroquel, sertraline. Currently on lactulose. Right wrist pain and swelling, improving. X ray reviewed, no fracture. US negative. Pain control with norco as need prn pain scale. MRI 10/05/17 of right wrist reviewed negative. - Received Naproxen 375mg Q8hrs X 7 days. Thrombocytopenia: -Chronic, at baseline. PLTs stable, H&H stable with no reported bleeding. Seizure disorder: -Continue DepagustinteLannyra. Seizure precautions. PTSD, personality disorder: -evaluated by psych. -Continue Seroquel. Trazodone daily at bedtime. COPD: - currently stable on room air. Generalized weakness: - Patient has chronic debility likely secondary to chronic alcohol abuse. - Continue PT DNR. DVT prophylaxis: Lovenox. Christos Menjivar DO Nov 10, 2017 20:04
[2017-11-10] MEDS: DIVALPROEX SODIUM E.R. 500 MG TAB PO SCH (22:19)
[2017-11-10] MEDS: QUEtiapine FUMARATE 25 MG TAB PO SCH (22:21)
[2017-11-10] MEDS: traZODone HCL 100 MG TAB PO SCH (22:22)
[2017-11-11] VITALS: BP 120/80; PULSE 75; RESP 18; TEMP 97.8; O2SAT 96
[2017-11-11 04:00] VITALS: BP 114/76; PULSE 78; RESP 18; TEMP 97.6; O2SAT 96
[2017-11-11] MEDS: NAPROXEN 375 MG TAB PO SCH (05:28)
[2017-11-11 08:00] VITALS: BP 91/57; PULSE 62; RESP 18; TEMP 98.1; O2SAT 97
--- NOTE | 2017-11-11 08:35 | HHI.PR ---
Subjective Remarks Follow up for aggressive behavior, Seizure disorder. Patient is currently doing well. Resting in bed. No acute concerns. Objective Vitals Vital Signs Date Time Temp Pulse Resp B/P (MAP) Pulse Ox O2 Delivery O2 Flow Rate FiO2 11/11/17 08:00 98.1 62 18 91/57 (68) 97 11/11/17 04:00 97.6 78 18 114/76 (89) 96 11/11/17 00:00 97.8 75 18 120/80 (93) 96 11/10/17 20:00 97.2 64 18 117/81 (93) 95 11/10/17 16:44 98.8 70 18 120/69 (86) 97 11/10/17 12:10 98.7 69 18 88/51 (63) 94 I/O 11/10/17 11/10/17 11/10/17 11/11/17 11/11/17 11/11/17 07:00 15:00 23:00 07:00 15:00 23:00 Intake Total 560 ml Balance 560 ml Intake Oral 560 ml # Voids 4 1 # Bowel Movements 1 Imaging Last Impressions Wrist MRI 10/05/17 0000 Signed Impressions: Service Date/Time: Thursday, October 05, 2017 12:00 - CONCLUSION: 1. No evidence of osteomyelitis. 2. Effusion in the proximal carpal row and in the radiocarpal joint. Fermin Duggan MD Upper Extremity Ultrasound 10/03/17 0000 Signed Impressions: Service Date/Time: Monday, October 02, 2017 14:57 - CONCLUSION: 1. Negative for deep venous thrombosis right upper extremity. Fermin Duggan MD Wrist X-Ray 10/02/17 0000 Signed Impressions: Service Date/Time: Monday, October 02, 2017 10:18 - CONCLUSION: Unremarkable exam. No significant change compared to the prior study. Wade Butler MD Renal Ultrasound 09/24/17 0000 Signed Impressions: Service Date/Time: Sunday, September 24, 2017 09:53 - CONCLUSION: Negative for stone or obstruction. Silvestre Iniguez MD FACR Head CT 08/28/17 0000 Signed Impressions: Service Date/Time: Monday, August 28, 2017 06:05 - CONCLUSION: 1. No acute intracranial hemorrhage. 2. Stable diffuse bilateral cortical atrophy. 3. No significant change compared to the prior exam. Wade Butler MD Cervical Spine CT 08/28/17 0000 Signed Impressions: Service Date/Time: Monday, August 28, 2017 06:08 - CONCLUSION: 1. No acute bony fracture. 2. Stable diffuse primary degenerative changes involving the cervical spine. 3. No new or significant changes. Wade Butler MD Objective Remarks GENERAL: Alert, NAD. SKIN: Warm and dry. HEAD: Normocephalic. EYES: No scleral icterus. No injection or drainage. NECK: Supple, trachea midline. No JVD or lymphadenopathy. CARDIOVASCULAR: Regular rate and rhythm without murmurs, gallops, or rubs. RESPIRATORY: Breath sounds equal bilaterally. No accessory muscle use. GASTROINTESTINAL: Abdomen soft, non-tender, nondistended. MUSCULOSKELETAL: No cyanosis, or edema. BACK: Nontender without obvious deformity. No CVA tenderness. Procedures None A/P Problem List: (1) Encephalopathy ICD Code: G93.40 - Encephalopathy Status: Acute (2) Alcohol-induced mood disorder ICD Code: F10.94 - Alcohol use, unspecified with alcohol-induced mood disorder Status: Acute (3) Debility ICD Code: R53.81 - Other malaise (4) COPD (chronic obstructive pulmonary disease) ICD Code: J44.9 - COPD (chronic obstructive pulmonary disease) Status: Chronic (5) PTSD (post-traumatic stress disorder) ICD Code: F43.10 - Post-traumatic stress disorder, unspecified Assessment and Plan 62-year-old male patient of an VALE who was sent from his [facility] for aggressive behavior and altered mental status. The patient's medical history significant for bipolar disorder, seizure disorder, gout, chronic back pain, COPD, hypertension, hep B and C, and dyslipidemia. In the ER the patient was combative and attempted to urinate on himself. He received multiple doses of Benadryl, Haldol, and Ativan. The patient was admitted and treated for encephalopathy and behavioral disturbances. Psychiatry was consulted who lifted the Avelar act and increased the patient's Seroquel. His mental status much improved. Patient has significant debility likely secondary to chronic alcohol abuse and needs further rehabilitation to get stronger. Currently awaiting placement. Anorexia - Calorie count shows that the patient doesn't get enough calories. Patient has refused PEG tube in the past. However, per RN, he is willing to undergo PEG tube placement. - Patient is eating 50% of his meals and reports good appetite. - PEG tube placement may not be necessary at this point. UTI growing E. Coli Elevated PSA - treated with Levaquin. -Urology consulted for elevated PSA, recommendations appreciated -continue Flomax. Repeat [facility] outpatient. Aggressive behavior, encephalopathy: improving the Avelar act was lifted by psychiatry Continue Seroquel, sertraline. Currently on lactulose. Right wrist pain and swelling, improving. X ray reviewed, no fracture. US negative. Pain control with norco as need prn pain scale. MRI 10/05/17 of right wrist reviewed negative. - Received Naproxen 375mg Q8hrs X 7 days. Thrombocytopenia: -Chronic, at baseline. PLTs stable, H&H stable with no reported bleeding. Seizure disorder: -Continue Depakote, Keppra. Seizure precautions. PTSD, personality disorder: -evaluated by psych. -Continue Seroquel. Trazodone daily at bedtime. COPD: - currently stable on room air. Generalized weakness: - Patient has chronic debility likely secondary to chronic alcohol abuse. - Continue PT DNR. DVT prophylaxis: Lovenox. 11/11/2017: No acute changes in management. Christos Menjivar DO Nov 11, 2017 8:35 am
[2017-11-11] MEDS: DOCUSATE SODIUM 50 MG/SENNA 8.6 MG TAB PO SCH ×2 (09:45→21:52)
[2017-11-11] MEDS: LACTULOSE SYRUP 20 GM/30 ML CUP PO SCH ×2 (09:45→21:00)
[2017-11-11] MEDS: levETIRAcetam 500 MG TAB PO SCH ×2 (09:46→21:52)
[2017-11-11] MEDS: MULTIVITAMIN TAB PO SCH (09:46)
[2017-11-11] MEDS: SERTRALINE HCL 100 MG TAB PO SCH (09:46)
[2017-11-11] MEDS: ENOXAPARIN SODIUM 30 MG/0.3 ML SYRINGE SQ SCH (09:46)
[2017-11-11] MEDS: SODIUM CHLORIDE 0.9% FLUSH 10 ML FLUSH IV FLUSH SCH ×2 (10:32→21:00)
[2017-11-11 12:00] VITALS: BP 99/51; PULSE 68; RESP 18; TEMP 97.8; O2SAT 97
[2017-11-11 16:00] VITALS: BP 106/66; PULSE 71; RESP 18; TEMP 98.3; O2SAT 96
[2017-11-11 20:48] VITALS: BP 99/56; PULSE 69; RESP 17; TEMP 99.5; O2SAT 95
[2017-11-11] MEDS: DIVALPROEX SODIUM E.R. 500 MG TAB PO SCH (21:52)
[2017-11-11] MEDS: QUEtiapine FUMARATE 25 MG TAB PO SCH (21:53)
[2017-11-11] MEDS: traZODone HCL 100 MG TAB PO SCH (21:53)
[2017-11-12 00:42] VITALS: BP 111/62; PULSE 66; RESP 17; TEMP 99.3; O2SAT 95
[2017-11-12 04:42] VITALS: BP 112/63; PULSE 82; RESP 17; TEMP 99.1; O2SAT 95
[2017-11-12 08:00] VITALS: BP 94/60; PULSE 76; RESP 19; TEMP 99.4; O2SAT 94
[2017-11-12] MEDS: ENOXAPARIN SODIUM 30 MG/0.3 ML SYRINGE SQ SCH (08:55)
[2017-11-12] MEDS: SERTRALINE HCL 100 MG TAB PO SCH (08:55)
[2017-11-12] MEDS: MULTIVITAMIN TAB PO SCH (08:55)
[2017-11-12] MEDS: LACTULOSE SYRUP 20 GM/30 ML CUP PO SCH ×2 (08:55→21:00)
[2017-11-12] MEDS: DOCUSATE SODIUM 50 MG/SENNA 8.6 MG TAB PO SCH ×2 (08:55→23:31)
[2017-11-12] MEDS: ACETAMINOPHEN/HYDROcodone 325 MG/5 MG TAB PO PRN (08:56)
[2017-11-12] MEDS: levETIRAcetam 500 MG TAB PO SCH ×2 (08:56→23:31)
[2017-11-12] MEDS: SODIUM CHLORIDE 0.9% FLUSH 10 ML FLUSH IV FLUSH SCH ×2 (09:00→21:00)
[2017-11-12 12:00] VITALS: BP 110/73; PULSE 82; RESP 18; TEMP 98.9; O2SAT 96
--- NOTE | 2017-11-12 13:36 | HHI.PR ---
Subjective Remarks Follow up deafness and seizure disorder Discussed with patient and RN and case management await safe placement Objective Vitals Vital Signs Date Time Temp Pulse Resp B/P (MAP) Pulse Ox O2 Delivery O2 Flow Rate FiO2 11/12/17 10:00 18 11/12/17 08:00 99.4 76 19 94/60 (71) 94 11/12/17 04:42 99.1 82 17 112/63 (79) 95 11/12/17 00:42 99.3 66 17 111/62 (78) 95 11/11/17 20:48 99.5 69 17 99/56 (70) 95 11/11/17 16:00 98.3 71 18 106/66 (79) 96 I/O 11/11/17 11/11/17 11/11/17 11/12/17 11/12/17 11/12/17 07:00 15:00 23:00 07:00 15:00 23:00 Intake Total 600 ml Balance 600 ml Intake Oral 600 ml # Voids 5 Imaging Last Impressions Wrist MRI 10/05/17 0000 Signed Impressions: Service Date/Time: Thursday, October 05, 2017 12:00 - CONCLUSION: 1. No evidence of osteomyelitis. 2. Effusion in the proximal carpal row and in the radiocarpal joint. Fermin Duggan MD Upper Extremity Ultrasound 10/03/17 0000 Signed Impressions: Service Date/Time: Monday, October 02, 2017 14:57 - CONCLUSION: 1. Negative for deep venous thrombosis right upper extremity. Fermin Duggan MD Wrist X-Ray 10/02/17 0000 Signed Impressions: Service Date/Time: Monday, October 02, 2017 10:18 - CONCLUSION: Unremarkable exam. No significant change compared to the prior study. Wade Butler MD Renal Ultrasound 09/24/17 0000 Signed Impressions: Service Date/Time: Sunday, September 24, 2017 09:53 - CONCLUSION: Negative for stone or obstruction. Silvestre Iniguez MD FACR Head CT 08/28/17 0000 Signed Impressions: Service Date/Time: Monday, August 28, 2017 06:05 - CONCLUSION: 1. No acute intracranial hemorrhage. 2. Stable diffuse bilateral cortical atrophy. 3. No significant change compared to the prior exam. Wade Butler MD Cervical Spine CT 08/28/17 0000 Signed Impressions: Service Date/Time: Monday, August 28, 2017 06:08 - CONCLUSION: 1. No acute bony fracture. 2. Stable diffuse primary degenerative changes involving the cervical spine. 3. No new or significant changes. Wade Butler MD Objective Remarks GENERAL: Very deaf awake and alert talkative somewhat cooperative SKIN: Warm and dry. HEAD: Atraumatic. Normocephalic. EYES: Pupils equal and round. No scleral icterus. No injection or drainage. ENT: No nasal bleeding or discharge. Mucous membranes pink and moist. Tongue is midline NECK: Trachea midline. No JVD. Supple CARDIOVASCULAR: Regular rate and rhythm. S1-S2 no S3-S4 RESPIRATORY: No accessory muscle use. Clear to auscultation. Breath sounds equal bilaterally. GASTROINTESTINAL: Abdomen soft, non-tender, nondistended. Hepatic and splenic margins not palpable. MUSCULOSKELETAL: Extremities without clubbing, cyanosis, or edema. No obvious deformities. NEUROLOGICAL: Awake and alert. No obvious cranial nerve deficits. Motor grossly within normal limits. Five out of 5 muscle strength in the arms and legs. Normal speech. PSYCHIATRIC: INAppropriate mood and affect; insight and judgment ABnormal. Procedures None Medications and IVs Current Medications Lorazepam (Ativan Inj) 1 mg ONCE ONCE IM Last administered on 08/28/17at 01:23 ; Start 08/28/17 at 01:00; Stop 08/28/17 at 01:01; Status DC Haloperidol Lactate (Haldol Inj) 2 mg ONCE ONCE IM Last administered on at 01:23; Start 08/28/17 at 01:00; Stop 08/28/17 at 01:01; Status DC Diphenhydramine HCl (Benadryl Inj) 25 mg ONCE ONCE IM Last administered on at 01:23; Start 08/28/17 at 01:00; Stop 08/28/17 at 01:01; Status DC Lorazepam (Ativan Inj) 2 mg ONCE ONCE IM Last administered on 08/28/17at 02:42 ; Start 08/28/17 at 02:30; Stop 08/28/17 at 02:31; Status DC Diphenhydramine HCl (Benadryl Inj) 25 mg ONCE ONCE IM Last administered on at 02:43; Start 08/28/17 at 02:30; Stop 08/28/17 at 02:31; Status DC Haloperidol Lactate (Haldol Inj) 2 mg ONCE ONCE IM Last administered on at 02:43; Start 08/28/17 at 02:30; Stop 08/28/17 at 02:31; Status DC Lorazepam (Ativan Inj) 2 mg ONCE ONCE IV PUSH ; Start 08/28/17 at 02:45; Stop 08/28/17 at 02:46; Status DC Lorazepam (Ativan Inj) 2 mg ONCE ONCE IM Last administered on 08/28/17at 05:48 ; Start 08/28/17 at 05:45; Stop 08/28/17 at 05:46; Status DC Sodium Chloride (NS Flush) 2 ml UNSCH PRN IV FLUSH FLUSH AFTER USING IV ACCESS ; Start 08/28/17 at 12:45; Stop 08/29/17 at 11:15; Status DC Haloperidol Lactate (Haldol Inj) 2 mg ONCE ONCE IM Last administered on at 13:50; Start 08/28/17 at 13:30; Stop 08/28/17 at 13:31; Status DC Potassium Bicarb/ Potassium Chloride (K-Lyte Cl Eff) 25 meq ONCE ONCE PO Last administered on 08/28/17at 15:41; Start 08/28/17 at 15:30; Stop 08/28/17 at 15:31; Status DC Potassium Bicarb/ Potassium Chloride (K-Lyte Cl Eff) 50 meq ONCE ONCE PO Last administered on 08/28/17at 18:09; Start 08/28/17 at 17:00; Stop 08/28/17 at 17:24; Status DC Lactulose (Lactulose Liq) 30 ml BID PO Last administered on 11/12/17at 08:55; Start 08/28/17 at 21:00 Sodium Chloride (NS Flush) 2 ml UNSCH PRN IV FLUSH FLUSH AFTER USING IV ACCESS ; Start 08/28/17 at 17:00 Sodium Chloride (NS Flush) 2 ml BID IV FLUSH Last administered on 11/11/17at 10: 32; Start 08/28/17 at 21:00 Ondansetron HCl (Zofran Inj) 4 mg Q6H PRN IVP NAUSEA OR VOMITING; Start at 17:00 Heparin Sodium (Porcine) (Heparin Inj) 5,000 units Q12H SQ Last administered on 09/23/17at 06:14; Start 08/28/17 at 18:00; Stop 09/25/17 at 10:57; Status DC Naloxone HCl (Narcan Inj) 0.4 mg UNSCH PRN IV PUSH SEE LABEL COMMENTS; Start at 17:00 Senna/Docusate Sodium (Leanne-Colace) 1 tab BID PO Last administered on at 08:55; Start 08/28/17 at 21:00 Magnesium Hydroxide (Milk Of Magnesia Liq) 30 ml Q12H PRN PO Mild constipation Last administered on 10/12/17at 20:39; Start 08/28/17 at 17:00 Sennosides (Senokot) 17.2 mg Q12H PRN PO Moderate constipation; Start 08/28/17 at 17:00 Bisacodyl (Dulcolax Supp) 10 mg DAILY PRN RECTAL SEVERE CONSITIPATION; Start at 17:00 Lactulose (Lactulose Liq) 30 ml DAILY PRN PO SEVERE CONSITIPATION; Start at 17:00 Divalproex Sodium (Depakote Er) 1,000 mg HS PO Last administered on 11/11/17at 21:52; Start 08/28/17 at 21:00 Hydroxyzine HCl (Atarax) 50 mg Q6HR PRN PO ANXIETY Last administered on at 08:12; Start 08/28/17 at 17:15 Levetriacetam (Keppra) 1,500 mg Q12HR PO Last administered on 11/12/17 08:56; Start 08/28/17 at 21:00 Quetiapine Fumarate (SEROquel) 25 mg HS PO Last administered on 08/28/17at 22:08 ; Start 08/28/17 at 21:00; Stop 08/29/17 at 17:53; Status DC Sertraline HCl (Zoloft) 200 mg DAILY PO Last administered on 11/12/17 08:55; Start 08/29/17 at 09:00 Trazodone HCl (Desyrel) 200 mg HS PO Last administered on 3/29/18at 21:53; Start 08/28/17 at 21:00 Nitroglycerin (Nitroglycerin 2% Oint) 1 inch ONCE ONCE TOPICAL ; Start at 20:00; Stop 08/28/17 at 20:01; Status Cancel Potassium Chloride (KCl) 30 meq ONCE ONCE PO Last administered on 08/29/17at 13 :02; Start 08/29/17 at 11:30; Stop 08/29/17 at 11:31; Status DC Potassium Chloride 100 ml @ 50 mls/hr Q2H IV Last administered on 08/30/17at 02 :23; Start 08/29/17 at 12:00; Stop 08/29/17 at 15:59; Status DC Quetiapine Fumarate (SEROquel) 75 mg HS PO Last administered on 11/11/17at 21:53 ; Start 08/29/17 at 21:00 Clonidine (Catapres) 0.1 mg Q6H PRN PO SBP> OR = 170, DBP> OR = 100 Last administered on 09/09/17at 16:13; Start 08/29/17 at 18:30 Potassium Chloride (KCl) 30 meq ONCE ONCE PO Last administered on 08/30/17at 10 :31; Start 08/30/17 at 09:45; Stop 08/30/17 at 09:55; Status DC Potassium Chloride 100 ml @ 100 mls/hr Q1H IV Last administered on 08/30/17at 12:45; Start 08/30/17 at 09:45; Stop 08/30/17 at 13:44; Status DC Prednisone (Deltasone) 20 mg BID PO Last administered on 09/09/17at 22:02; Start 08/30/17 at 11:15; Stop 09/09/17 at 21:00; Status DC Albuterol Sulfate (Albuterol Neb) 1.25 mg Q6HR NEB NEB Last administered on at 21:46; Start 08/30/17 at 11:15; Stop 09/03/17 at 11:14; Status DC Prednisone (Deltasone) 30 mg DAILY PO Last administered on 09/21/17at 10:00; Start 09/10/17 at 09:00; Stop 09/21/17 at 11:50; Status DC Acetaminophen (Tylenol) 650 mg Q4H PRN PO FEVER Last administered on 10/13/17 20:33; Start 09/23/17 at 09:45; Stop 11/01/17 at 21:54; Status DC Levofloxacin/ Dextrose 100 ml @ 100 mls/hr Q24H IV Last administered on at 14:26; Start 09/23/17 at 15:00; Stop 09/25/17 at 18:19; Status DC Phenazopyridine HCl (Pyridium) 200 mg Q8HR PO Last administered on 09/25/17at 05 :54; Start 09/23/17 at 14:15; Stop 09/25/17 at 11:01; Status DC Potassium Chloride/Dextrose/ Sod Cl 1,000 ml @ 75 mls/hr [id number] IV Last administered on 09/25/17 05:58; Start 09/23/17 at 14:15; Stop 09/25/17 at 10:57 ; Status DC Tamsulosin HCl (Flomax) 0.4 mg DAILY PO Last administered on 10/12/17at 08:37; Start 09/24/17 at 10:15; Status Future Hold Enoxaparin Sodium (Lovenox Inj) 30 mg Q24H SQ Last administered on 10/28/17 11 :32; Start 09/25/17 at 12:00; Stop 10/28/17 at 12:51; Status DC Levofloxacin (Levaquin) 500 mg DAILY PO Last administered on 10/14/17 09:08; Start 09/26/17 at 09:00; Stop 10/14/17 at 09:24; Status DC Tramadol HCl (Ultram) 50 mg Q8H PRN PO pain >5 Last administered on 11/01/17at 07:18; Start 09/27/17 at 21:45; Stop 11/01/17 at 21:54; Status DC Acetaminophen/ Hydrocodone Bitart (Jarales 5-325 Mg) 1 tab Q6H PRN PO PAIN SCALE 5 TO 10 Last administered on 11/12/17 08:56; Start 10/02/17 at 08:30 Multivitamins (Theragran) 1 tab DAILY PO Last administered on 11/12/17 08:55; Start 10/08/17 at 09:00 Sodium Chloride 500 ml @ 500 mls/hr BOLUS ONCE IV Last administered on at 04:19; Start 10/12/17 at 04:15; Stop 10/12/17 at 05:14; Status DC Sodium Chloride 1,000 ml @ 999 mls/hr BOLUS ONCE IV Last administered on 10/12at 09:45; Start 10/12/17 at 09:45; Stop 10/12/17 at 10:45; Status DC Sodium Chloride 1,000 ml @ 75 mls/hr [id number] IV Last administered on 10/15/17at 02:40; Start 10/12/17 at 09:45; Stop 10/15/17 at 10:55; Status DC Lactic Acid (Lac-Hydrin 12% Lotion) 1 applic BID TOPICAL ; Start 10/21/17 at 21: 00; Stop 10/21/17 at 21:00; Status DC Enoxaparin Sodium (Lovenox Inj) 30 mg Q24H SQ Last administered on 11/12/17at 08 :55; Start 10/29/17 at 09:00 Acetaminophen (Tylenol) 500 mg Q4H PRN PO Headache, fever, pain 1-4; Start at 01:45 Naproxen (Naprosyn) 375 mg Q8HR PO Last administered on 11/11/17at 05:28; Start 11/04/17 at 14:00; Stop 11/11/17 at 13:59; Status DC A/P Problem List: (1) Encephalopathy ICD Code: G93.40 - Encephalopathy Status: Acute (2) Alcohol-induced mood disorder ICD Code: F10.94 - Alcohol use, unspecified with alcohol-induced mood disorder Status: Acute (3) Debility ICD Code: R53.81 - Other malaise (4) COPD (chronic obstructive pulmonary disease) ICD Code: J44.9 - COPD (chronic obstructive pulmonary disease) Status: Chronic (5) PTSD (post-traumatic stress disorder) ICD Code: F43.10 - Post-traumatic stress disorder, unspecified Assessment and Plan 62-year-old male patient of an [facility] who was sent from his [facility] for aggressive behavior and altered mental status. The patient's medical history significant for bipolar disorder, seizure disorder, gout, chronic back pain, COPD, hypertension, hep B and C, and dyslipidemia. In the ER the patient was combative and attempted to urinate on himself. He received multiple doses of Benadryl, Haldol, and Ativan. The patient was admitted and treated for encephalopathy and behavioral disturbances. Psychiatry was consulted who lifted the Avelar act and increased the patient's Seroquel. His mental status much improved. Patient has significant debility likely secondary to chronic alcohol abuse and needs further rehabilitation to get stronger. Currently awaiting placement. Anorexia - Calorie count shows that the patient doesn't get enough calories. Patient has refused PEG tube in the past. However, per RN, he is willing to undergo PEG tube placement. - Patient is eating 50% of his meals and reports good appetite. - PEG tube placement may not be necessary at this point. UTI growing E. Coli Elevated PSA - treated with Levaquin. -Urology consulted for elevated PSA, recommendations appreciated -continue Flomax. Repeat [facility] outpatient. Aggressive behavior, encephalopathy: improving the Avelar act was lifted by psychiatry Continue Seroquel, sertraline. Currently on lactulose. Right wrist pain and swelling, improving. X ray reviewed, no fracture. US negative. Pain control with norco as need prn pain scale. MRI 10/05/17 of right wrist reviewed negative. - Received Naproxen 375mg Q8hrs X 7 days. Thrombocytopenia: -Chronic, at baseline. PLTs stable, H&H stable with no reported bleeding. Seizure disorder: -Continue DepagustinteLannyra. Seizure precautions. PTSD, personality disorder: -evaluated by psych. -Continue Seroquel. Trazodone daily at bedtime. COPD: - currently stable on room air. Generalized weakness: - Patient has chronic debility likely secondary to chronic alcohol abuse. - Continue PT DNR. DVT prophylaxis: Lovenox. DEAFNESS-DOES NOT WEAR HEARING AIDE 11/11/2017: No acute changes in management. Discharge Planning AWAIT PLACEMENT Silvestre Brady DO Nov 12, 2017 13:36
[2017-11-12 16:00] VITALS: BP 116/65; PULSE 73; RESP 16; TEMP 98.8; O2SAT 97
[2017-11-12 20:00] VITALS: BP 147/89; PULSE 70; RESP 19; TEMP 98.2; O2SAT 95
[2017-11-12] MEDS: QUEtiapine FUMARATE 25 MG TAB PO SCH (23:30)
[2017-11-12] MEDS: DIVALPROEX SODIUM E.R. 500 MG TAB PO SCH (23:30)
[2017-11-12] MEDS: traZODone HCL 100 MG TAB PO SCH (23:31)
[2017-11-13] VITALS (7 sets, daily range): BP systolic 95–127; BP diastolic 53–81; PULSE 69–91; RESP 17–22; TEMP 97.3–99.2; O2SAT 93–97
[2017-11-13] MEDS: SODIUM CHLORIDE 0.9% FLUSH 10 ML FLUSH IV FLUSH SCH ×2 (09:00→21:00)
[2017-11-13] MEDS: MULTIVITAMIN TAB PO SCH (09:00)
[2017-11-13] MEDS: DOCUSATE SODIUM 50 MG/SENNA 8.6 MG TAB PO SCH ×2 (09:38→21:54)
[2017-11-13] MEDS: SERTRALINE HCL 100 MG TAB PO SCH (09:38)
[2017-11-13] MEDS: levETIRAcetam 500 MG TAB PO SCH ×2 (09:39→21:54)
[2017-11-13] MEDS: LACTULOSE SYRUP 20 GM/30 ML CUP PO SCH ×2 (09:41→21:54)
[2017-11-13] MEDS: ENOXAPARIN SODIUM 30 MG/0.3 ML SYRINGE SQ SCH (09:45)
--- NOTE | 2017-11-13 12:40 | HHI.PR ---
Subjective Remarks Follow up deafness and seizure disorder Discussed with patient and RN and case management await safe placement 11-13 HAS HEARING AIDE IN CAN HEAR A LITTLE BETTER TODAY AWAIT SAFE PLACEMENT DW RN AND PT AND CM Objective Vitals Vital Signs Date Time Temp Pulse Resp B/P (MAP) Pulse Ox O2 Delivery O2 Flow Rate FiO2 11/13/17 11:46 97.4 72 18 100/56 (71) 97 11/13/17 07:45 98.9 69 17 102/53 (69) 96 11/13/17 04:00 99.1 74 20 102/64 (77) 96 11/13/17 00:00 99.2 80 22 127/80 (96) 95 11/12/17 20:00 98.2 70 19 147/89 (108) 95 11/12/17 16:00 98.8 73 16 116/65 (82) 97 I/O 11/12/17 11/12/17 11/12/17 11/13/17 11/13/17 11/13/17 07:00 15:00 23:00 07:00 15:00 23:00 Intake Total 600 ml Balance 600 ml Intake Oral 600 ml # Voids 5 2 1 # Bowel Movements 2 Imaging Last Impressions Wrist MRI 10/05/17 0000 Signed Impressions: Service Date/Time: Thursday, October 05, 2017 12:00 - CONCLUSION: 1. No evidence of osteomyelitis. 2. Effusion in the proximal carpal row and in the radiocarpal joint. Fermin Duggan MD Upper Extremity Ultrasound 10/03/17 0000 Signed Impressions: Service Date/Time: Monday, October 02, 2017 14:57 - CONCLUSION: 1. Negative for deep venous thrombosis right upper extremity. Fermni Duggan MD Wrist X-Ray 10/02/17 0000 Signed Impressions: Service Date/Time: Monday, October 02, 2017 10:18 - CONCLUSION: Unremarkable exam. No significant change compared to the prior study. Wade Butler MD Renal Ultrasound 09/24/17 0000 Signed Impressions: Service Date/Time: Sunday, September 24, 2017 09:53 - CONCLUSION: Negative for stone or obstruction. Silvestre Iniguez MD FACR Head CT 08/28/17 0000 Signed Impressions: Service Date/Time: Monday, August 28, 2017 06:05 - CONCLUSION: 1. No acute intracranial hemorrhage. 2. Stable diffuse bilateral cortical atrophy. 3. No significant change compared to the prior exam. Wade Butler MD Cervical Spine CT 08/28/17 0000 Signed Impressions: Service Date/Time: Monday, August 28, 2017 06:08 - CONCLUSION: 1. No acute bony fracture. 2. Stable diffuse primary degenerative changes involving the cervical spine. 3. No new or significant changes. Wade Butler MD Objective Remarks GENERAL: Very deaf awake and alert talkative somewhat cooperative SKIN: Warm and dry. HEAD: Atraumatic. Normocephalic. EYES: Pupils equal and round. No scleral icterus. No injection or drainage. ENT: No nasal bleeding or discharge. Mucous membranes pink and moist. Tongue is midline NECK: Trachea midline. No JVD. Supple CARDIOVASCULAR: Regular rate and rhythm. S1-S2 no S3-S4 RESPIRATORY: No accessory muscle use. Clear to auscultation. Breath sounds equal bilaterally. GASTROINTESTINAL: Abdomen soft, non-tender, nondistended. Hepatic and splenic margins not palpable. MUSCULOSKELETAL: Extremities without clubbing, cyanosis, or edema. No obvious deformities. NEUROLOGICAL: Awake and alert. No obvious cranial nerve deficits. Motor grossly within normal limits. Five out of 5 muscle strength in the arms and legs. Normal speech. PSYCHIATRIC: INAppropriate mood and affect; insight and judgment ABnormal. Procedures None Medications and IVs Current Medications Lorazepam (Ativan Inj) 1 mg ONCE ONCE IM Last administered on 08/28/17at 01:23 ; Start 08/28/17 at 01:00; Stop 08/28/17 at 01:01; Status DC Haloperidol Lactate (Haldol Inj) 2 mg ONCE ONCE IM Last administered on at 01:23; Start 08/28/17 at 01:00; Stop 08/28/17 at 01:01; Status DC Diphenhydramine HCl (Benadryl Inj) 25 mg ONCE ONCE IM Last administered on at 01:23; Start 08/28/17 at 01:00; Stop 08/28/17 at 01:01; Status DC Lorazepam (Ativan Inj) 2 mg ONCE ONCE IM Last administered on 08/28/17at 02:42 ; Start 08/28/17 at 02:30; Stop 08/28/17 at 02:31; Status DC Diphenhydramine HCl (Benadryl Inj) 25 mg ONCE ONCE IM Last administered on at 02:43; Start 08/28/17 at 02:30; Stop 08/28/17 at 02:31; Status DC Haloperidol Lactate (Haldol Inj) 2 mg ONCE ONCE IM Last administered on at 02:43; Start 08/28/17 at 02:30; Stop 08/28/17 at 02:31; Status DC Lorazepam (Ativan Inj) 2 mg ONCE ONCE IV PUSH ; Start 08/28/17 at 02:45; Stop 08/28/17 at 02:46; Status DC Lorazepam (Ativan Inj) 2 mg ONCE ONCE IM Last administered on 08/28/17at 05:48 ; Start 08/28/17 at 05:45; Stop 08/28/17 at 05:46; Status DC Sodium Chloride (NS Flush) 2 ml UNSCH PRN IV FLUSH FLUSH AFTER USING IV ACCESS ; Start 08/28/17 at 12:45; Stop 08/29/17 at 11:15; Status DC Haloperidol Lactate (Haldol Inj) 2 mg ONCE ONCE IM Last administered on at 13:50; Start 08/28/17 at 13:30; Stop 08/28/17 at 13:31; Status DC Potassium Bicarb/ Potassium Chloride (K-Lyte Cl Eff) 25 meq ONCE ONCE PO Last administered on 08/28/17at 15:41; Start 08/28/17 at 15:30; Stop 08/28/17 at 15:31; Status DC Potassium Bicarb/ Potassium Chloride (K-Lyte Cl Eff) 50 meq ONCE ONCE PO Last administered on 08/28/17at 18:09; Start 08/28/17 at 17:00; Stop 08/28/17 at 17:24; Status DC Lactulose (Lactulose Liq) 30 ml BID PO Last administered on 11/13/17at 09:41; Start 08/28/17 at 21:00 Sodium Chloride (NS Flush) 2 ml UNSCH PRN IV FLUSH FLUSH AFTER USING IV ACCESS ; Start 08/28/17 at 17:00 Sodium Chloride (NS Flush) 2 ml BID IV FLUSH Last administered on 11/11/17at 10: 32; Start 08/28/17 at 21:00 Ondansetron HCl (Zofran Inj) 4 mg Q6H PRN IVP NAUSEA OR VOMITING; Start at 17:00 Heparin Sodium (Porcine) (Heparin Inj) 5,000 units Q12H SQ Last administered on 09/23/17 06:14; Start 08/28/17 at 18:00; Stop 09/25/17 at 10:57; Status DC Naloxone HCl (Narcan Inj) 0.4 mg UNSCH PRN IV PUSH SEE LABEL COMMENTS; Start at 17:00 Senna/Docusate Sodium (Leanne-Colace) 1 tab BID PO Last administered on 09:38; Start 08/28/17 at 21:00 Magnesium Hydroxide (Milk Of Magnesia Liq) 30 ml Q12H PRN PO Mild constipation Last administered on 10/12/17 20:39; Start 08/28/17 at 17:00 Sennosides (Senokot) 17.2 mg Q12H PRN PO Moderate constipation; Start 08/28/17 at 17:00 Bisacodyl (Dulcolax Supp) 10 mg DAILY PRN RECTAL SEVERE CONSITIPATION; Start at 17:00 Lactulose (Lactulose Liq) 30 ml DAILY PRN PO SEVERE CONSITIPATION; Start at 17:00 Divalproex Sodium (Depakote Er) 1,000 mg HS PO Last administered on 11/12/17 23:30; Start 08/28/17 at 21:00 Hydroxyzine HCl (Atarax) 50 mg Q6HR PRN PO ANXIETY Last administered on 08:12; Start 08/28/17 at 17:15 Levetriacetam (Keppra) 1,500 mg Q12HR PO Last administered on 11/13/17 09:39; Start 08/28/17 at 21:00 Quetiapine Fumarate (SEROquel) 25 mg HS PO Last administered on 08/28/17 22:08 ; Start 08/28/17 at 21:00; Stop 08/29/17 at 17:53; Status DC Sertraline HCl (Zoloft) 200 mg DAILY PO Last administered on 3/31/18at 09:38; Start 08/29/17 at 09:00 Trazodone HCl (Desyrel) 200 mg HS PO Last administered on 11/12/17at 23:31; Start 08/28/17 at 21:00 Nitroglycerin (Nitroglycerin 2% Oint) 1 inch ONCE ONCE TOPICAL ; Start at 20:00; Stop 08/28/17 at 20:01; Status Cancel Potassium Chloride (KCl) 30 meq ONCE ONCE PO Last administered on 08/29/17at 13 :02; Start 08/29/17 at 11:30; Stop 08/29/17 at 11:31; Status DC Potassium Chloride 100 ml @ 50 mls/hr Q2H IV Last administered on 08/30/17at 02 :23; Start 08/29/17 at 12:00; Stop 08/29/17 at 15:59; Status DC Quetiapine Fumarate (SEROquel) 75 mg HS PO Last administered on 11/12/17at 23:30 ; Start 08/29/17 at 21:00 Clonidine (Catapres) 0.1 mg Q6H PRN PO SBP> OR = 170, DBP> OR = 100 Last administered on 09/09/17at 16:13; Start 08/29/17 at 18:30 Potassium Chloride (KCl) 30 meq ONCE ONCE PO Last administered on 08/30/17at 10 :31; Start 08/30/17 at 09:45; Stop 08/30/17 at 09:55; Status DC Potassium Chloride 100 ml @ 100 mls/hr Q1H IV Last administered on 08/30/17at 12:45; Start 08/30/17 at 09:45; Stop 08/30/17 at 13:44; Status DC Prednisone (Deltasone) 20 mg BID PO Last administered on 09/09/17at 22:02; Start 08/30/17 at 11:15; Stop 09/09/17 at 21:00; Status DC Albuterol Sulfate (Albuterol Neb) 1.25 mg Q6HR NEB NEB Last administered on at 21:46; Start 08/30/17 at 11:15; Stop 09/03/17 at 11:14; Status DC Prednisone (Deltasone) 30 mg DAILY PO Last administered on 09/21/17at 10:00; Start 09/10/17 at 09:00; Stop 09/21/17 at 11:50; Status DC Acetaminophen (Tylenol) 650 mg Q4H PRN PO FEVER Last administered on 10/13/17at 20:33; Start 09/23/17 at 09:45; Stop 11/01/17 at 21:54; Status DC Levofloxacin/ Dextrose 100 ml @ 100 mls/hr Q24H IV Last administered on at 14:26; Start 09/23/17 at 15:00; Stop 09/25/17 at 18:19; Status DC Phenazopyridine HCl (Pyridium) 200 mg Q8HR PO Last administered on 09/25/17at 05 :54; Start 09/23/17 at 14:15; Stop 09/25/17 at 11:01; Status DC Potassium Chloride/Dextrose/ Sod Cl 1,000 ml @ 75 mls/hr [id number] IV Last administered on 09/25/17at 05:58; Start 09/23/17 at 14:15; Stop 09/25/17 at 10:57 ; Status DC Tamsulosin HCl (Flomax) 0.4 mg DAILY PO Last administered on 10/12/17at 08:37; Start 09/24/17 at 10:15; Status Future Hold Enoxaparin Sodium (Lovenox Inj) 30 mg Q24H SQ Last administered on 10/28/17at 11 :32; Start 09/25/17 at 12:00; Stop 10/28/17 at 12:51; Status DC Levofloxacin (Levaquin) 500 mg DAILY PO Last administered on 10/14/17at 09:08; Start 09/26/17 at 09:00; Stop 10/14/17 at 09:24; Status DC Tramadol HCl (Ultram) 50 mg Q8H PRN PO pain >5 Last administered on 11/01/17at 07:18; Start 09/27/17 at 21:45; Stop 11/01/17 at 21:54; Status DC Acetaminophen/ Hydrocodone Bitart ([place] 5-325 Mg) 1 tab Q6H PRN PO PAIN SCALE 5 TO 10 Last administered on 11/12/17at 08:56; Start 10/02/17 at 08:30 Multivitamins (Theragran) 1 tab DAILY PO Last administered on 11/13/17at 09:00; Start 10/08/17 at 09:00 Sodium Chloride 500 ml @ 500 mls/hr BOLUS ONCE IV Last administered on at 04:19; Start 10/12/17 at 04:15; Stop 10/12/17 at 05:14; Status DC Sodium Chloride 1,000 ml @ 999 mls/hr BOLUS ONCE IV Last administered on 10/12at 09:45; Start 10/12/17 at 09:45; Stop 10/12/17 at 10:45; Status DC Sodium Chloride 1,000 ml @ 75 mls/hr [id number] IV Last administered on 10/15/17at 02:40; Start 10/12/17 at 09:45; Stop 10/15/17 at 10:55; Status DC Lactic Acid (Lac-Hydrin 12% Lotion) 1 applic BID TOPICAL ; Start 10/21/17 at 21: 00; Stop 10/21/17 at 21:00; Status DC Enoxaparin Sodium (Lovenox Inj) 30 mg Q24H SQ Last administered on 11/13/17at 09 :45; Start 10/29/17 at 09:00 Acetaminophen (Tylenol) 500 mg Q4H PRN PO Headache, fever, pain 1-4; Start at 01:45 Naproxen (Naprosyn) 375 mg Q8HR PO Last administered on 11/11/17at 05:28; Start 11/04/17 at 14:00; Stop 11/11/17 at 13:59; Status DC A/P Problem List: (1) Encephalopathy ICD Code: G93.40 - Encephalopathy Status: Acute (2) Alcohol-induced mood disorder ICD Code: F10.94 - Alcohol use, unspecified with alcohol-induced mood disorder Status: Acute (3) Debility ICD Code: R53.81 - Other malaise (4) COPD (chronic obstructive pulmonary disease) ICD Code: J44.9 - COPD (chronic obstructive pulmonary disease) Status: Chronic (5) PTSD (post-traumatic stress disorder) ICD Code: F43.10 - Post-traumatic stress disorder, unspecified Assessment and Plan 62-year-old male patient of an [facility] who was sent from his [facility] for aggressive behavior and altered mental status. The patient's medical history significant for bipolar disorder, seizure disorder, gout, chronic back pain, COPD, hypertension, hep B and C, and dyslipidemia. In the ER the patient was combative and attempted to urinate on himself. He received multiple doses of Benadryl, Haldol, and Ativan. The patient was admitted and treated for encephalopathy and behavioral disturbances. Psychiatry was consulted who lifted the Avelar act and increased the patient's Seroquel. His mental status much improved. Patient has significant debility likely secondary to chronic alcohol abuse and needs further rehabilitation to get stronger. Currently awaiting placement. Anorexia - Calorie count shows that the patient doesn't get enough calories. Patient has refused PEG tube in the past. However, per RN, he is willing to undergo PEG tube placement. - Patient is eating 50% of his meals and reports good appetite. - PEG tube placement may not be necessary at this point. EATING OK UTI growing E. Coli Elevated PSA - treated with Levaquin. -Urology consulted for elevated PSA, recommendations appreciated -continue Flomax. Repeat [facility] outpatient. Aggressive behavior, encephalopathy: improving the Avelar act was lifted by psychiatry Continue Seroquel, sertraline. Currently on lactulose. Right wrist pain and swelling, improving. X ray reviewed, no fracture. US negative. Pain control with norco as need prn pain scale. MRI 10/05/17 of right wrist reviewed negative. - Received Naproxen 375mg Q8hrs X 7 days. Thrombocytopenia: -Chronic, at baseline. PLTs stable, H&H stable with no reported bleeding. Seizure disorder: -Continue Depakote, Keppra. Seizure precautions. PTSD, personality disorder: -evaluated by psych. -Continue Seroquel. Trazodone daily at bedtime. COPD: - currently stable on room air. Generalized weakness: - Patient has chronic debility likely secondary to chronic alcohol abuse. - Continue PT DNR. DVT prophylaxis: Lovenox. DEAFNESS-DOES NOT WEAR HEARING AIDES MUCH Discharge Planning AWAIT PLACEMENT Silvestre Brady DO Nov 13, 2017 12:40
[2017-11-13] MEDS: traZODone HCL 100 MG TAB PO SCH (21:54)
[2017-11-13] MEDS: DIVALPROEX SODIUM E.R. 500 MG TAB PO SCH (21:54)
[2017-11-13] MEDS: QUEtiapine FUMARATE 25 MG TAB PO SCH (21:54)
[2017-11-14 04:08] VITALS: BP 127/68; PULSE 79; RESP 18; TEMP 98.1; O2SAT 95
[2017-11-14 08:24] VITALS: BP 99/58; PULSE 57; RESP 18; TEMP 98.2; O2SAT 96
[2017-11-14] MEDS: MULTIVITAMIN TAB PO SCH (09:00)
[2017-11-14] MEDS: LACTULOSE SYRUP 20 GM/30 ML CUP PO SCH ×2 (09:00→21:00)
[2017-11-14] MEDS: levETIRAcetam 500 MG TAB PO SCH ×2 (09:00→21:09)
[2017-11-14] MEDS: SERTRALINE HCL 100 MG TAB PO SCH (09:00)
[2017-11-14] MEDS: SODIUM CHLORIDE 0.9% FLUSH 10 ML FLUSH IV FLUSH SCH ×2 (09:00→21:00)
[2017-11-14] MEDS: DOCUSATE SODIUM 50 MG/SENNA 8.6 MG TAB PO SCH ×2 (09:00→21:10)
[2017-11-14] MEDS: ENOXAPARIN SODIUM 30 MG/0.3 ML SYRINGE SQ SCH (09:00)
--- NOTE | 2017-11-14 11:51 | HHI.PR ---
Subjective Remarks Follow up deafness and seizure disorder Discussed with patient and RN and case management await safe placement 3- HAS HEARING AIDE IN CAN HEAR A LITTLE BETTER TODAY AWAIT SAFE PLACEMENT DW RN AND PT AND CM 4-1 COMPLAINS OF NAUSEA- WILL MAKE ZOFRAN AVAILABLE AWAIT PLACEMENT DW RN AND PT AND CM Objective Vitals Vital Signs Date Time Temp Pulse Resp B/P (MAP) Pulse Ox O2 Delivery O2 Flow Rate FiO2 11/14/17 08:24 98.2 57 18 99/58 (72) 96 11/14/17 04:08 98.1 79 18 127/68 (87) 95 11/13/17 23:50 97.3 76 18 95/61 (72) 95 11/13/17 20:00 97.4 91 18 124/81 (95) 97 11/13/17 15:31 98.0 71 18 95/55 (68) 93 I/O 11/13/17 11/13/17 11/13/17 11/14/17 11/14/17 11/14/17 07:00 15:00 23:00 07:00 15:00 23:00 Intake Total 240 ml Balance 240 ml Intake Oral 240 ml # Voids 2 1 4 2 # Bowel Movements 2 Imaging Last Impressions Wrist MRI 10/05/17 0000 Signed Impressions: Service Date/Time: Thursday, October 05, 2017 12:00 - CONCLUSION: 1. No evidence of osteomyelitis. 2. Effusion in the proximal carpal row and in the radiocarpal joint. Fermin Duggan MD Upper Extremity Ultrasound 10/03/17 0000 Signed Impressions: Service Date/Time: Monday, October 02, 2017 14:57 - CONCLUSION: 1. Negative for deep venous thrombosis right upper extremity. Fermin Duggan MD Wrist X-Ray 10/02/17 0000 Signed Impressions: Service Date/Time: Monday, October 02, 2017 10:18 - CONCLUSION: Unremarkable exam. No significant change compared to the prior study. Wade Butler MD Renal Ultrasound 09/24/17 0000 Signed Impressions: Service Date/Time: Sunday, September 24, 2017 09:53 - CONCLUSION: Negative for stone or obstruction. Silvestre Iniguez MD FACR Head CT 08/28/17 0000 Signed Impressions: Service Date/Time: Monday, August 28, 2017 06:05 - CONCLUSION: 1. No acute intracranial hemorrhage. 2. Stable diffuse bilateral cortical atrophy. 3. No significant change compared to the prior exam. Wade Butler MD Cervical Spine CT 08/28/17 0000 Signed Impressions: Service Date/Time: Monday, August 28, 2017 06:08 - CONCLUSION: 1. No acute bony fracture. 2. Stable diffuse primary degenerative changes involving the cervical spine. 3. No new or significant changes. Wade Butler MD Objective Remarks GENERAL: Very deaf awake and alert talkative somewhat cooperative SKIN: Warm and dry. HEAD: Atraumatic. Normocephalic. EYES: Pupils equal and round. No scleral icterus. No injection or drainage. ENT: No nasal bleeding or discharge. Mucous membranes pink and moist. Tongue is midline NECK: Trachea midline. No JVD. Supple CARDIOVASCULAR: Regular rate and rhythm. S1-S2 no S3-S4 RESPIRATORY: No accessory muscle use. Clear to auscultation. Breath sounds equal bilaterally. GASTROINTESTINAL: Abdomen soft, non-tender, nondistended. Hepatic and splenic margins not palpable. MUSCULOSKELETAL: Extremities without clubbing, cyanosis, or edema. No obvious deformities. NEUROLOGICAL: Awake and alert. No obvious cranial nerve deficits. Motor grossly within normal limits. Five out of 5 muscle strength in the arms and legs. Normal speech. PSYCHIATRIC: INAppropriate mood and affect; insight and judgment ABnormal. Procedures None Medications and IVs Current Medications Lorazepam (Ativan Inj) 1 mg ONCE ONCE IM Last administered on 08/28/17at 01:23 ; Start 08/28/17 at 01:00; Stop 08/28/17 at 01:01; Status DC Haloperidol Lactate (Haldol Inj) 2 mg ONCE ONCE IM Last administered on at 01:23; Start 08/28/17 at 01:00; Stop 08/28/17 at 01:01; Status DC Diphenhydramine HCl (Benadryl Inj) 25 mg ONCE ONCE IM Last administered on at 01:23; Start 08/28/17 at 01:00; Stop 08/28/17 at 01:01; Status DC Lorazepam (Ativan Inj) 2 mg ONCE ONCE IM Last administered on 08/28/17at 02:42 ; Start 08/28/17 at 02:30; Stop 08/28/17 at 02:31; Status DC Diphenhydramine HCl (Benadryl Inj) 25 mg ONCE ONCE IM Last administered on at 02:43; Start 08/28/17 at 02:30; Stop 08/28/17 at 02:31; Status DC Haloperidol Lactate (Haldol Inj) 2 mg ONCE ONCE IM Last administered on at 02:43; Start 08/28/17 at 02:30; Stop 08/28/17 at 02:31; Status DC Lorazepam (Ativan Inj) 2 mg ONCE ONCE IV PUSH ; Start 08/28/17 at 02:45; Stop 08/28/17 at 02:46; Status DC Lorazepam (Ativan Inj) 2 mg ONCE ONCE IM Last administered on 08/28/17at 05:48 ; Start 08/28/17 at 05:45; Stop 08/28/17 at 05:46; Status DC Sodium Chloride (NS Flush) 2 ml UNSCH PRN IV FLUSH FLUSH AFTER USING IV ACCESS ; Start 08/28/17 at 12:45; Stop 08/29/17 at 11:15; Status DC Haloperidol Lactate (Haldol Inj) 2 mg ONCE ONCE IM Last administered on at 13:50; Start 08/28/17 at 13:30; Stop 08/28/17 at 13:31; Status DC Potassium Bicarb/ Potassium Chloride (K-Lyte Cl Eff) 25 meq ONCE ONCE PO Last administered on 08/28/17at 15:41; Start 08/28/17 at 15:30; Stop 08/28/17 at 15:31; Status DC Potassium Bicarb/ Potassium Chloride (K-Lyte Cl Eff) 50 meq ONCE ONCE PO Last administered on 08/28/17at 18:09; Start 08/28/17 at 17:00; Stop 08/28/17 at 17:24; Status DC Lactulose (Lactulose Liq) 30 ml BID PO Last administered on 11/13/17at 21:54; Start 08/28/17 at 21:00 Sodium Chloride (NS Flush) 2 ml UNSCH PRN IV FLUSH FLUSH AFTER USING IV ACCESS ; Start 08/28/17 at 17:00 Sodium Chloride (NS Flush) 2 ml BID IV FLUSH Last administered on 3/29/18at 10: 32; Start 08/28/17 at 21:00 Ondansetron HCl (Zofran Inj) 4 mg Q6H PRN IVP NAUSEA OR VOMITING; Start at 17:00 Heparin Sodium (Porcine) (Heparin Inj) 5,000 units Q12H SQ Last administered on 09/23/17 06:14; Start 08/28/17 at 18:00; Stop 09/25/17 at 10:57; Status DC Naloxone HCl (Narcan Inj) 0.4 mg UNSCH PRN IV PUSH SEE LABEL COMMENTS; Start at 17:00 Senna/Docusate Sodium (Leanne-Colace) 1 tab BID PO Last administered on 21:54; Start 08/28/17 at 21:00 Magnesium Hydroxide (Milk Of Magnesia Liq) 30 ml Q12H PRN PO Mild constipation Last administered on 10/12/17at 20:39; Start 08/28/17 at 17:00 Sennosides (Senokot) 17.2 mg Q12H PRN PO Moderate constipation; Start 08/28/17 at 17:00 Bisacodyl (Dulcolax Supp) 10 mg DAILY PRN RECTAL SEVERE CONSITIPATION; Start at 17:00 Lactulose (Lactulose Liq) 30 ml DAILY PRN PO SEVERE CONSITIPATION; Start at 17:00 Divalproex Sodium (Depakote Er) 1,000 mg HS PO Last administered on 11/13/17 21:54; Start 08/28/17 at 21:00 Hydroxyzine HCl (Atarax) 50 mg Q6HR PRN PO ANXIETY Last administered on 08:12; Start 08/28/17 at 17:15 Levetriacetam (Keppra) 1,500 mg Q12HR PO Last administered on 11/13/17 21:54; Start 08/28/17 at 21:00 Quetiapine Fumarate (SEROquel) 25 mg HS PO Last administered on 08/28/17at 22:08 ; Start 08/28/17 at 21:00; Stop 08/29/17 at 17:53; Status DC Sertraline HCl (Zoloft) 200 mg DAILY PO Last administered on 11/13/17at 09:38; Start 08/29/17 at 09:00 Trazodone HCl (Desyrel) 200 mg HS PO Last administered on 11/13/17at 21:54; Start 08/28/17 at 21:00 Nitroglycerin (Nitroglycerin 2% Oint) 1 inch ONCE ONCE TOPICAL ; Start at 20:00; Stop 08/28/17 at 20:01; Status Cancel Potassium Chloride (KCl) 30 meq ONCE ONCE PO Last administered on 08/29/17at 13 :02; Start 08/29/17 at 11:30; Stop 08/29/17 at 11:31; Status DC Potassium Chloride 100 ml @ 50 mls/hr Q2H IV Last administered on 08/30/17at 02 :23; Start 08/29/17 at 12:00; Stop 08/29/17 at 15:59; Status DC Quetiapine Fumarate (SEROquel) 75 mg HS PO Last administered on 11/13/17at 21:54 ; Start 08/29/17 at 21:00 Clonidine (Catapres) 0.1 mg Q6H PRN PO SBP> OR = 170, DBP> OR = 100 Last administered on 09/09/17at 16:13; Start 08/29/17 at 18:30 Potassium Chloride (KCl) 30 meq ONCE ONCE PO Last administered on 08/30/17at 10 :31; Start 08/30/17 at 09:45; Stop 08/30/17 at 09:55; Status DC Potassium Chloride 100 ml @ 100 mls/hr Q1H IV Last administered on 08/30/17at 12:45; Start 08/30/17 at 09:45; Stop 08/30/17 at 13:44; Status DC Prednisone (Deltasone) 20 mg BID PO Last administered on 09/09/17at 22:02; Start 08/30/17 at 11:15; Stop 09/09/17 at 21:00; Status DC Albuterol Sulfate (Albuterol Neb) 1.25 mg Q6HR NEB NEB Last administered on at 21:46; Start 08/30/17 at 11:15; Stop 09/03/17 at 11:14; Status DC Prednisone (Deltasone) 30 mg DAILY PO Last administered on 09/21/17at 10:00; Start 09/10/17 at 09:00; Stop 09/21/17 at 11:50; Status DC Acetaminophen (Tylenol) 650 mg Q4H PRN PO FEVER Last administered on 10/13/17at 20:33; Start 09/23/17 at 09:45; Stop 11/01/17 at 21:54; Status DC Levofloxacin/ Dextrose 100 ml @ 100 mls/hr Q24H IV Last administered on at 14:26; Start 09/23/17 at 15:00; Stop 09/25/17 at 18:19; Status DC Phenazopyridine HCl (Pyridium) 200 mg Q8HR PO Last administered on 09/25/17at 05 :54; Start 09/23/17 at 14:15; Stop 09/25/17 at 11:01; Status DC Potassium Chloride/Dextrose/ Sod Cl 1,000 ml @ 75 mls/hr [id number] IV Last administered on 09/25/17at 05:58; Start 09/23/17 at 14:15; Stop 09/25/17 at 10:57 ; Status DC Tamsulosin HCl (Flomax) 0.4 mg DAILY PO Last administered on 10/12/17at 08:37; Start 09/24/17 at 10:15; Status Future Hold Enoxaparin Sodium (Lovenox Inj) 30 mg Q24H SQ Last administered on 10/28/17at 11 :32; Start 09/25/17 at 12:00; Stop 10/28/17 at 12:51; Status DC Levofloxacin (Levaquin) 500 mg DAILY PO Last administered on 10/14/17at 09:08; Start 09/26/17 at 09:00; Stop 10/14/17 at 09:24; Status DC Tramadol HCl (Ultram) 50 mg Q8H PRN PO pain >5 Last administered on 11/01/17at 07:18; Start 09/27/17 at 21:45; Stop 11/01/17 at 21:54; Status DC Acetaminophen/ Hydrocodone Bitart ([place] 5-325 Mg) 1 tab Q6H PRN PO PAIN SCALE 5 TO 10 Last administered on 11/12/17at 08:56; Start 10/02/17 at 08:30 Multivitamins (Theragran) 1 tab DAILY PO Last administered on 11/13/17at 09:00; Start 10/08/17 at 09:00 Sodium Chloride 500 ml @ 500 mls/hr BOLUS ONCE IV Last administered on at 04:19; Start 10/12/17 at 04:15; Stop 10/12/17 at 05:14; Status DC Sodium Chloride 1,000 ml @ 999 mls/hr BOLUS ONCE IV Last administered on 10/12at 09:45; Start 10/12/17 at 09:45; Stop 10/12/17 at 10:45; Status DC Sodium Chloride 1,000 ml @ 75 mls/hr [id number] IV Last administered on 10/15/17at 02:40; Start 10/12/17 at 09:45; Stop 10/15/17 at 10:55; Status DC Lactic Acid (Lac-Hydrin 12% Lotion) 1 applic BID TOPICAL ; Start 10/21/17 at 21: 00; Stop 10/21/17 at 21:00; Status DC Enoxaparin Sodium (Lovenox Inj) 30 mg Q24H SQ Last administered on 11/13/17at 09 :45; Start 10/29/17 at 09:00 Acetaminophen (Tylenol) 500 mg Q4H PRN PO Headache, fever, pain 1-4; Start at 01:45 Naproxen (Naprosyn) 375 mg Q8HR PO Last administered on 11/11/17at 05:28; Start 11/04/17 at 14:00; Stop 11/11/17 at 13:59; Status DC A/P Problem List: (1) Encephalopathy ICD Code: G93.40 - Encephalopathy Status: Acute (2) Alcohol-induced mood disorder ICD Code: F10.94 - Alcohol use, unspecified with alcohol-induced mood disorder Status: Acute (3) Debility ICD Code: R53.81 - Other malaise (4) COPD (chronic obstructive pulmonary disease) ICD Code: J44.9 - COPD (chronic obstructive pulmonary disease) Status: Chronic (5) PTSD (post-traumatic stress disorder) ICD Code: F43.10 - Post-traumatic stress disorder, unspecified Assessment and Plan 62-year-old male patient of an S[facility]IOR [facility] who was sent from his [facility]IOR [facility] for aggressive behavior and altered mental status. The patient's medical history significant for bipolar disorder, seizure disorder, gout, chronic back pain, COPD, hypertension, hep B and C, and dyslipidemia. In the ER the patient was combative and attempted to urinate on himself. He received multiple doses of Benadryl, Haldol, and Ativan. The patient was admitted and treated for encephalopathy and behavioral disturbances. Psychiatry was consulted who lifted the Avelar act and increased the patient's Seroquel. His mental status much improved. Patient has significant debility likely secondary to chronic alcohol abuse and needs further rehabilitation to get stronger. Currently awaiting placement. Anorexia - Calorie count shows that the patient doesn't get enough calories. Patient has refused PEG tube in the past. However, per RN, he is willing to undergo PEG tube placement. - Patient is eating 50% of his meals and reports good appetite. - PEG tube placement may not be necessary at this point. EATING OK UTI growing E. Coli Elevated PSA - treated with Levaquin. -Urology consulted for elevated PSA, recommendations appreciated -continue Flomax. Repeat [facility] outpatient. Aggressive behavior, encephalopathy: improving the Avelar act was lifted by psychiatry Continue Seroquel, sertraline. Currently on lactulose. Right wrist pain and swelling, improving. X ray reviewed, no fracture. US negative. Pain control with norco as need prn pain scale. MRI 10/05/17 of right wrist reviewed negative. - Received Naproxen 375mg Q8hrs X 7 days. Thrombocytopenia: -Chronic, at baseline. PLTs stable, H&H stable with no reported bleeding. Seizure disorder: -Continue Depakote, Keppra. Seizure precautions. PTSD, personality disorder: -evaluated by psych. -Continue Seroquel. Trazodone daily at bedtime. COPD: - currently stable on room air. Generalized weakness: - Patient has chronic debility likely secondary to chronic alcohol abuse. - Continue PT DNR. DVT prophylaxis: Lovenox. DEAFNESS-DOES NOT WEAR HEARING AIDES MUCH NAUSEA ADD ZOFRAN PRN Discharge Planning AWAIT PLACEMENT Silvestre Brady DO Nov 14, 2017 11:51
[2017-11-14] MEDS ORDERED: ONDANSETRON ODT 4 MG TAB PO PRN (12:00)
[2017-11-14 12:46] VITALS: BP 110/68; PULSE 67; RESP 18; TEMP 98.2; O2SAT 97
[2017-11-14 16:42] VITALS: BP 126/67; PULSE 68; RESP 18; TEMP 98.1; O2SAT 97
[2017-11-14 20:45] VITALS: BP 99/67; PULSE 66; RESP 18; TEMP 98.6; O2SAT 97
[2017-11-14] MEDS: traZODone HCL 100 MG TAB PO SCH (21:09)
[2017-11-14] MEDS: QUEtiapine FUMARATE 25 MG TAB PO SCH (21:09)
[2017-11-14] MEDS: DIVALPROEX SODIUM E.R. 500 MG TAB PO SCH (21:10)
[2017-11-14 23:53] VITALS: BP 97/52; PULSE 73; RESP 18; TEMP 97.7; O2SAT 97
[2017-11-15 04:20] VITALS: BP 99/60; PULSE 77; RESP 18; TEMP 98.1; O2SAT 99
[2017-11-15 08:30] VITALS: BP 108/68; PULSE 78; RESP 20; TEMP 98.1; O2SAT 94
[2017-11-15] MEDS: LACTULOSE SYRUP 20 GM/30 ML CUP PO SCH ×2 (09:00→20:34)
[2017-11-15] MEDS: SODIUM CHLORIDE 0.9% FLUSH 10 ML FLUSH IV FLUSH SCH ×2 (09:00→20:33)
[2017-11-15] MEDS: MULTIVITAMIN TAB PO SCH (09:00)
[2017-11-15] MEDS: SERTRALINE HCL 100 MG TAB PO SCH (10:17)
[2017-11-15] MEDS: levETIRAcetam 500 MG TAB PO SCH ×2 (10:18→20:35)
[2017-11-15] MEDS: DOCUSATE SODIUM 50 MG/SENNA 8.6 MG TAB PO SCH ×2 (10:18→20:34)
[2017-11-15] MEDS: ENOXAPARIN SODIUM 30 MG/0.3 ML SYRINGE SQ SCH (10:18)
[2017-11-15 11:44] VITALS: BP 101/66; PULSE 65; RESP 20; TEMP 98.1; O2SAT 95
--- NOTE | 2017-11-15 13:09 | HHI.PR ---
Subjective Remarks Patient is confused today. No acute events per nursing. Apparently his mental status fluctuates. Objective Vitals Vital Signs Date Time Temp Pulse Resp B/P (MAP) Pulse Ox O2 Delivery O2 Flow Rate FiO2 11/15/17 11:44 98.1 65 20 101/66 (78) 95 11/15/17 08:30 98.1 78 20 108/68 (81) 94 11/15/17 04:20 98.1 77 18 99/60 (73) 99 11/14/17 23:53 97.7 73 18 97/52 (67) 97 11/14/17 20:45 98.6 66 18 99/67 (78) 97 11/14/17 16:42 98.1 68 18 126/67 (86) 97 I/O 11/14/17 11/14/17 11/14/17 11/15/17 11/15/17 11/15/17 07:00 15:00 23:00 07:00 15:00 23:00 Intake Total 480 ml Balance 480 ml Intake Oral 480 ml # Voids 2 3 1 # Bowel Movements 1 Imaging Last Impressions Wrist MRI 10/05/17 0000 Signed Impressions: Service Date/Time: Thursday, October 05, 2017 12:00 - CONCLUSION: 1. No evidence of osteomyelitis. 2. Effusion in the proximal carpal row and in the radiocarpal joint. Fermin Duggan MD Upper Extremity Ultrasound 10/03/17 0000 Signed Impressions: Service Date/Time: Monday, October 02, 2017 14:57 - CONCLUSION: 1. Negative for deep venous thrombosis right upper extremity. Fermin Duggan MD Wrist X-Ray 10/02/17 0000 Signed Impressions: Service Date/Time: Monday, October 02, 2017 10:18 - CONCLUSION: Unremarkable exam. No significant change compared to the prior study. Wade Butler MD Renal Ultrasound 09/24/17 0000 Signed Impressions: Service Date/Time: Sunday, September 24, 2017 09:53 - CONCLUSION: Negative for stone or obstruction. Silvestre Iniguez MD FACR Head CT 08/28/17 0000 Signed Impressions: Service Date/Time: Monday, August 28, 2017 06:05 - CONCLUSION: 1. No acute intracranial hemorrhage. 2. Stable diffuse bilateral cortical atrophy. 3. No significant change compared to the prior exam. Wade Butler MD Cervical Spine CT 08/28/17 0000 Signed Impressions: Service Date/Time: Monday, August 28, 2017 06:08 - CONCLUSION: 1. No acute bony fracture. 2. Stable diffuse primary degenerative changes involving the cervical spine. 3. No new or significant changes. Wade Butler MD Objective Remarks General: No acute distress. Heart: Regular rate and rhythm. No murmur. Lungs: Clear to auscultation bilaterally. No wheezes, rales, or rhonchi. Breathing is nonlabored. Abdomen: Soft, nontender, nondistended. Extremities: No lower extremity edema. Psych: Alert. Confused. Procedures None Urinary Catheter: No Vascular Central Line Catheter: No A/P Problem List: (1) Encephalopathy ICD Code: G93.40 - Encephalopathy Status: Acute (2) Alcohol-induced mood disorder ICD Code: F10.94 - Alcohol use, unspecified with alcohol-induced mood disorder Status: Acute (3) Debility ICD Code: R53.81 - Other malaise (4) COPD (chronic obstructive pulmonary disease) ICD Code: J44.9 - COPD (chronic obstructive pulmonary disease) Status: Chronic (5) PTSD (post-traumatic stress disorder) ICD Code: F43.10 - Post-traumatic stress disorder, unspecified Assessment and Plan 11/15/17: No change. Awaiting placement. 1. Aggressive behavior, encephalopathy: Patient has had significant improvement in his mental status, likely back to baseline. Mental status does fluctuate, and he has periods of confusion. He was evaluated by psychiatry, and the Avelar act was lifted. Continue Seroquel, sertraline. 2. Thrombocytopenia: Chronic, at baseline. 3. Seizure disorder: Continue Depakote, Keppra. Seizure precautions. 4. PTSD, personality disorder: Appreciate psychiatry recommendations. Continue Seroquel. Trazodone daily at bedtime. 5. COPD: Respiratory status is at baseline. Currently stable on room air. 6. Generalized weakness: Patient has chronic debility likely secondary to chronic alcohol abuse. Continue physical therapy. 7. DVT prophylaxis: Lovenox. 8. UTI: Urine culture growing E. coli. Status post treatment with Levaquin. 9. Elevated PSA: Appreciate urology recommendations. 10. Right wrist pain: Improving. X-ray shows no fracture. Ultrasound is negative. MRI negative. Discharge Planning Discharge to SNF when arrangements are made. Patient is medically cleared for discharge. Case management assisting with discharge planning. Jose James MD Nov 15, 2017 13:09
[2017-11-15 16:00] VITALS: BP 144/78; PULSE 62; RESP 20; TEMP 98.3; O2SAT 98
[2017-11-15 20:00] VITALS: BP 114/62; PULSE 66; RESP 16; TEMP 97.5; O2SAT 96
[2017-11-15] MEDS: DIVALPROEX SODIUM E.R. 500 MG TAB PO SCH (20:34)
[2017-11-15] MEDS: traZODone HCL 100 MG TAB PO SCH (20:34)
[2017-11-15] MEDS: QUEtiapine FUMARATE 25 MG TAB PO SCH (20:35)
[2017-11-16] VITALS: BP 113/70; PULSE 67; RESP 16; TEMP 98.2; O2SAT 95
[2017-11-16 04:00] VITALS: BP 114/60; PULSE 66; RESP 16; TEMP 98.8; O2SAT 96
[2017-11-16 07:36] VITALS: BP 102/58; PULSE 67; RESP 18; TEMP 97.6; O2SAT 97
[2017-11-16] MEDS: MULTIVITAMIN TAB PO SCH (09:00)
[2017-11-16] MEDS: SODIUM CHLORIDE 0.9% FLUSH 10 ML FLUSH IV FLUSH SCH ×2 (09:00→20:43)
[2017-11-16] MEDS: LACTULOSE SYRUP 20 GM/30 ML CUP PO SCH ×2 (09:55→20:47)
[2017-11-16] MEDS: levETIRAcetam 500 MG TAB PO SCH ×2 (09:55→20:47)
[2017-11-16] MEDS: DOCUSATE SODIUM 50 MG/SENNA 8.6 MG TAB PO SCH ×2 (09:55→20:47)
[2017-11-16] MEDS: ENOXAPARIN SODIUM 30 MG/0.3 ML SYRINGE SQ SCH (09:55)
[2017-11-16] MEDS: SERTRALINE HCL 100 MG TAB PO SCH (09:55)
--- NOTE | 2017-11-16 10:53 | HHI.PR ---
Subjective Remarks Follow up confusion. No events reported by nursing. Patient reporting vague pain , but unable to be more specific. Mentioned blood on the toilet seat, but this was not seen by nursing or environmental services, who had been cleaning the room at the time of my visit today. Objective Vitals Vital Signs Date Time Temp Pulse Resp B/P (MAP) Pulse Ox O2 Delivery O2 Flow Rate FiO2 11/16/17 07:36 97.6 67 18 102/58 (73) 97 11/16/17 04:00 98.8 66 16 114/60 (78) 96 11/16/17 00:00 98.2 67 16 113/70 (84) 95 11/15/17 20:00 97.5 66 16 114/62 (79) 96 11/15/17 16:00 98.3 62 20 144/78 (100) 98 11/15/17 11:44 98.1 65 20 101/66 (78) 95 I/O 11/15/17 11/15/17 11/15/17 11/16/17 11/16/17 11/16/17 07:00 15:00 23:00 07:00 15:00 23:00 Intake Total 600 ml 480 ml Balance 600 ml 480 ml Intake Oral 600 ml 480 ml # Voids 1 2 2 # Bowel Movements 0 Imaging Last Impressions Wrist MRI 10/05/17 0000 Signed Impressions: Service Date/Time: Thursday, October 05, 2017 12:00 - CONCLUSION: 1. No evidence of osteomyelitis. 2. Effusion in the proximal carpal row and in the radiocarpal joint. Fermin Duggan MD Upper Extremity Ultrasound 10/03/17 0000 Signed Impressions: Service Date/Time: Monday, October 02, 2017 14:57 - CONCLUSION: 1. Negative for deep venous thrombosis right upper extremity. Fermin Duggan MD Wrist X-Ray 10/02/17 0000 Signed Impressions: Service Date/Time: Monday, October 02, 2017 10:18 - CONCLUSION: Unremarkable exam. No significant change compared to the prior study. Wade Butler MD Renal Ultrasound 09/24/17 0000 Signed Impressions: Service Date/Time: Sunday, September 24, 2017 09:53 - CONCLUSION: Negative for stone or obstruction. Silvestre Iniguez MD FACR Head CT 08/28/17 0000 Signed Impressions: Service Date/Time: Monday, August 28, 2017 06:05 - CONCLUSION: 1. No acute intracranial hemorrhage. 2. Stable diffuse bilateral cortical atrophy. 3. No significant change compared to the prior exam. Wade Butler MD Cervical Spine CT 08/28/17 0000 Signed Impressions: Service Date/Time: Monday, August 28, 2017 06:08 - CONCLUSION: 1. No acute bony fracture. 2. Stable diffuse primary degenerative changes involving the cervical spine. 3. No new or significant changes. Wade Butler MD Objective Remarks General: No acute distress. Heart: Regular rate and rhythm. No murmur. Lungs: Clear to auscultation bilaterally. No wheezes, rales, or rhonchi. Breathing is nonlabored. Abdomen: Soft, nontender, nondistended. Extremities: No lower extremity edema. Psych: Alert. Confused. Procedures None Urinary Catheter: No Vascular Central Line Catheter: No A/P Problem List: (1) Encephalopathy ICD Code: G93.40 - Encephalopathy Status: Acute (2) Alcohol-induced mood disorder ICD Code: F10.94 - Alcohol use, unspecified with alcohol-induced mood disorder Status: Acute (3) Debility ICD Code: R53.81 - Other malaise (4) COPD (chronic obstructive pulmonary disease) ICD Code: J44.9 - COPD (chronic obstructive pulmonary disease) Status: Chronic (5) PTSD (post-traumatic stress disorder) ICD Code: F43.10 - Post-traumatic stress disorder, unspecified Assessment and Plan 11/16/17: No change. Awaiting placement. 1. Aggressive behavior, encephalopathy: Patient has had significant improvement in his mental status, likely back to baseline. Mental status does fluctuate, and he has periods of confusion. He was evaluated by psychiatry, and the Avelar act was lifted. Continue Seroquel, sertraline. 2. Thrombocytopenia: Chronic, at baseline. 3. Seizure disorder: Continue Depakote, Keppra. Seizure precautions. 4. PTSD, personality disorder: Appreciate psychiatry recommendations. Continue Seroquel. Trazodone daily at bedtime. 5. COPD: Respiratory status is at baseline. Currently stable on room air. 6. Generalized weakness: Patient has chronic debility likely secondary to chronic alcohol abuse. Continue physical therapy. 7. DVT prophylaxis: Lovenox. 8. UTI: Urine culture growing E. coli. Status post treatment with Levaquin. 9. Elevated PSA: Appreciate urology recommendations. 10. Right wrist pain: Improving. X-ray shows no fracture. Ultrasound is negative. MRI negative. Discharge Planning Discharge to SNF when arrangements are made. Patient is medically cleared for discharge. Case management assisting with discharge planning. Jose James MD Nov 16, 2017 10:53
[2017-11-16 12:06] VITALS: BP 106/67; PULSE 75; RESP 18; TEMP 98.2; O2SAT 95
[2017-11-16 15:52] VITALS: BP 110/66; PULSE 71; RESP 18; TEMP 97.8; O2SAT 96
[2017-11-16] MEDS: QUEtiapine FUMARATE 25 MG TAB PO SCH (20:47)
[2017-11-16] MEDS: DIVALPROEX SODIUM E.R. 500 MG TAB PO SCH (20:47)
[2017-11-16] MEDS: traZODone HCL 100 MG TAB PO SCH (20:47)
[2017-11-17] VITALS: BP 121/60; PULSE 74; RESP 18; TEMP 97.3; O2SAT 97
[2017-11-17 07:46] VITALS: BP 99/62; PULSE 70; RESP 18; TEMP 98.3; O2SAT 96
[2017-11-17] MEDS: SERTRALINE HCL 100 MG TAB PO SCH (09:17)
[2017-11-17] MEDS: ENOXAPARIN SODIUM 30 MG/0.3 ML SYRINGE SQ SCH (09:17)
[2017-11-17] MEDS: levETIRAcetam 500 MG TAB PO SCH ×2 (09:18→21:50)
[2017-11-17] MEDS: MULTIVITAMIN TAB PO SCH (09:18)
[2017-11-17] MEDS: DOCUSATE SODIUM 50 MG/SENNA 8.6 MG TAB PO SCH ×2 (09:18→21:51)
[2017-11-17] MEDS: SODIUM CHLORIDE 0.9% FLUSH 10 ML FLUSH IV FLUSH SCH ×2 (09:19→21:00)
[2017-11-17] MEDS: LACTULOSE SYRUP 20 GM/30 ML CUP PO SCH ×2 (09:19→21:51)
--- NOTE | 2017-11-17 11:22 | HHI.HCPN ---
Met with Mr. Peters for ongoing support and palliative care overall follow-up. He is currently lying in bed with eyes closed upon my arrival. Easily awakens. Mostly appropriate in conversation, somewhat tangent in conversation possibly due to difficulty hearing. He is able to make his needs known. Appears to have an understanding of his medical condition, briefly discusses ongoing "tremors" which he reports as chronic. Although, insight and judgment into his situation is somewhat questionable, again could be due to his difficulty hearing. He states [facility] assisting in [facility] plan for [facility]; notes from do not reflect this plan as of recently. Gently discussed [facility] D[facility] to keep with his wishes of DNR status after discharge from the hospital. Today he is open to completing it. Yellow copy placed on chart to go with him upon discharge. Copy placed in chart and copy sent to HIM to be scanned into EMR. Mr. Peters denies any questions or concerns at my visit. Currently attempting to finish breakfast upon my exit. He is appreciative of visit. Palliative care will continue to follow throughout hospitalization. Gem Ross, ROBOTIC WELDER Nov 17, 2017 11:22
[2017-11-17 11:35] VITALS: BP 102/64; PULSE 67; RESP 18; TEMP 97.9; O2SAT 95
--- NOTE | 2017-11-17 15:40 | HHI.PR ---
Subjective Remarks No events reported by nursing. The patient reports pain that radiates to his back, but he is unable to clarify further. Objective Vitals Vital Signs Date Time Temp Pulse Resp B/P (MAP) Pulse Ox O2 Delivery O2 Flow Rate FiO2 11/17/17 11:35 97.9 67 18 102/64 (77) 95 11/17/17 07:46 98.3 70 18 99/62 (74) 96 11/17/17 00:00 97.3 74 18 121/60 (80) 97 11/16/17 15:52 97.8 71 18 110/66 (81) 96 I/O 11/16/17 11/16/17 11/16/17 11/17/17 11/17/17 11/17/17 07:00 15:00 23:00 07:00 15:00 23:00 Intake Total 480 ml 220 ml Balance 480 ml 220 ml Intake Oral 480 ml 220 ml # Voids 2 2 Imaging Last Impressions Wrist MRI 10/05/17 0000 Signed Impressions: Service Date/Time: Thursday, October 05, 2017 12:00 - CONCLUSION: 1. No evidence of osteomyelitis. 2. Effusion in the proximal carpal row and in the radiocarpal joint. Fermin Duggan MD Upper Extremity Ultrasound 10/03/17 0000 Signed Impressions: Service Date/Time: Monday, October 02, 2017 14:57 - CONCLUSION: 1. Negative for deep venous thrombosis right upper extremity. Fermin Duggan MD Wrist X-Ray 10/02/17 0000 Signed Impressions: Service Date/Time: Monday, October 02, 2017 10:18 - CONCLUSION: Unremarkable exam. No significant change compared to the prior study. Wade Butler MD Renal Ultrasound 09/24/17 0000 Signed Impressions: Service Date/Time: Sunday, September 24, 2017 09:53 - CONCLUSION: Negative for stone or obstruction. Silvestre Iniguez MD FACR Head CT 08/28/17 0000 Signed Impressions: Service Date/Time: Monday, August 28, 2017 06:05 - CONCLUSION: 1. No acute intracranial hemorrhage. 2. Stable diffuse bilateral cortical atrophy. 3. No significant change compared to the prior exam. Wade Butler MD Cervical Spine CT 08/28/17 0000 Signed Impressions: Service Date/Time: Monday, August 28, 2017 06:08 - CONCLUSION: 1. No acute bony fracture. 2. Stable diffuse primary degenerative changes involving the cervical spine. 3. No new or significant changes. Wade Butler MD Objective Remarks General: No acute distress. Heart: Regular rate and rhythm. No murmur. Lungs: Clear to auscultation bilaterally. No wheezes, rales, or rhonchi. Breathing is nonlabored. Abdomen: Soft, nontender, nondistended. Extremities: No lower extremity edema. Psych: Alert. Somewhat confused. Procedures None Urinary Catheter: No Vascular Central Line Catheter: No A/P Problem List: (1) Encephalopathy ICD Code: G93.40 - Encephalopathy Status: Acute (2) Alcohol-induced mood disorder ICD Code: F10.94 - Alcohol use, unspecified with alcohol-induced mood disorder Status: Acute (3) Debility ICD Code: R53.81 - Other malaise (4) COPD (chronic obstructive pulmonary disease) ICD Code: J44.9 - COPD (chronic obstructive pulmonary disease) Status: Chronic (5) PTSD (post-traumatic stress disorder) ICD Code: F43.10 - Post-traumatic stress disorder, unspecified Assessment and Plan 11/17/17: No change. Awaiting placement. 1. Aggressive behavior, encephalopathy: Patient has had significant improvement in his mental status, likely back to baseline. Mental status does fluctuate, and he has periods of confusion. He was evaluated by psychiatry, and the Avelar act was lifted. Continue Seroquel, sertraline. 2. Thrombocytopenia: Chronic, at baseline. 3. Seizure disorder: Continue Depakote, Keppra. Seizure precautions. 4. PTSD, personality disorder: Appreciate psychiatry recommendations. Continue Seroquel. Trazodone daily at bedtime. 5. COPD: Respiratory status is at baseline. Currently stable on room air. 6. Generalized weakness: Patient has chronic debility likely secondary to chronic alcohol abuse. Continue physical therapy. 7. DVT prophylaxis: Lovenox. 8. UTI: Urine culture growing E. coli. Status post treatment with Levaquin. 9. Elevated PSA: Appreciate urology recommendations. 10. Right wrist pain: Improving. X-ray shows no fracture. Ultrasound is negative. MRI negative. Discharge Planning Discharge to SNF when arrangements are made. Patient is medically cleared for discharge. Case management assisting with discharge planning. Jose James MD Nov 17, 2017 15:40
[2017-11-17 16:14] VITALS: BP 98/64; PULSE 69; RESP 18; TEMP 98.7; O2SAT 95
[2017-11-17 21:00] VITALS: BP 94/57; PULSE 66; RESP 18; TEMP 98.1; O2SAT 95
[2017-11-17] MEDS: DIVALPROEX SODIUM E.R. 500 MG TAB PO SCH (21:51)
[2017-11-17] MEDS: traZODone HCL 100 MG TAB PO SCH (21:51)
[2017-11-17] MEDS: QUEtiapine FUMARATE 25 MG TAB PO SCH (21:51)
[2017-11-18 00:40] VITALS: BP 98/60; PULSE 70; RESP 18; TEMP 98.5; O2SAT 97
[2017-11-18 05:30] VITALS: BP 120/70; PULSE 79; RESP 18; TEMP 97.9; O2SAT 96
[2017-11-18] MEDS: levETIRAcetam 500 MG TAB PO SCH ×2 (07:34→21:58)
[2017-11-18] MEDS: DOCUSATE SODIUM 50 MG/SENNA 8.6 MG TAB PO SCH ×2 (07:34→21:59)
[2017-11-18] MEDS: LACTULOSE SYRUP 20 GM/30 ML CUP PO SCH ×2 (07:34→21:00)
[2017-11-18] MEDS: MULTIVITAMIN TAB PO SCH (07:34)
[2017-11-18] MEDS: ENOXAPARIN SODIUM 30 MG/0.3 ML SYRINGE SQ SCH (07:34)
[2017-11-18] MEDS: SERTRALINE HCL 100 MG TAB PO SCH (07:35)
[2017-11-18 08:01] VITALS: BP 96/64; PULSE 65; RESP 16; TEMP 98.9; O2SAT 96
[2017-11-18] MEDS: SODIUM CHLORIDE 0.9% FLUSH 10 ML FLUSH IV FLUSH SCH ×2 (09:00→21:00)
--- NOTE | 2017-11-18 11:17 | HHI.PR ---
Subjective Remarks Patient has been confused. No other events per nursing. Patient reports nausea/ vomiting, but nursing states that he ate his entire breakfast and had no issues. Objective Vitals Vital Signs Date Time Temp Pulse Resp B/P (MAP) Pulse Ox O2 Delivery O2 Flow Rate FiO2 11/18/17 08:01 98.9 65 16 96/64 (75) 96 11/18/17 05:30 97.9 79 18 120/70 (87) 96 11/18/17 00:40 98.5 70 18 98/60 (73) 97 11/17/17 21:00 98.1 66 18 94/57 (69) 95 11/17/17 16:14 98.7 69 18 98/64 (75) 95 11/17/17 11:35 97.9 67 18 102/64 (77) 95 I/O 11/17/17 11/17/17 11/17/17 11/18/17 11/18/17 11/18/17 07:00 15:00 23:00 07:00 15:00 23:00 Intake Total 840 ml Balance 840 ml Intake Oral 840 ml # Voids 5 4 Imaging Last Impressions Wrist MRI 10/05/17 0000 Signed Impressions: Service Date/Time: Thursday, October 05, 2017 12:00 - CONCLUSION: 1. No evidence of osteomyelitis. 2. Effusion in the proximal carpal row and in the radiocarpal joint. Fermin Duggan MD Upper Extremity Ultrasound 10/03/17 0000 Signed Impressions: Service Date/Time: Monday, October 02, 2017 14:57 - CONCLUSION: 1. Negative for deep venous thrombosis right upper extremity. Fermin Duggan MD Wrist X-Ray 10/02/17 0000 Signed Impressions: Service Date/Time: Monday, October 02, 2017 10:18 - CONCLUSION: Unremarkable exam. No significant change compared to the prior study. Wade Butler MD Renal Ultrasound 09/24/17 0000 Signed Impressions: Service Date/Time: Sunday, September 24, 2017 09:53 - CONCLUSION: Negative for stone or obstruction. Silvestre Iniguez MD FACR Head CT 08/28/17 0000 Signed Impressions: Service Date/Time: Monday, August 28, 2017 06:05 - CONCLUSION: 1. No acute intracranial hemorrhage. 2. Stable diffuse bilateral cortical atrophy. 3. No significant change compared to the prior exam. Wade Butler MD Cervical Spine CT 08/28/17 0000 Signed Impressions: Service Date/Time: Monday, August 28, 2017 06:08 - CONCLUSION: 1. No acute bony fracture. 2. Stable diffuse primary degenerative changes involving the cervical spine. 3. No new or significant changes. Wade Butler MD Objective Remarks General: No acute distress. Heart: Regular rate and rhythm. No murmur. Lungs: Clear to auscultation bilaterally. No wheezes, rales, or rhonchi. Breathing is nonlabored. Abdomen: Soft, nontender, nondistended. Extremities: No lower extremity edema. Psych: Alert. Somewhat confused. Procedures None Urinary Catheter: No Vascular Central Line Catheter: No A/P Problem List: (1) Encephalopathy ICD Code: G93.40 - Encephalopathy Status: Acute (2) Alcohol-induced mood disorder ICD Code: F10.94 - Alcohol use, unspecified with alcohol-induced mood disorder Status: Acute (3) Debility ICD Code: R53.81 - Other malaise (4) COPD (chronic obstructive pulmonary disease) ICD Code: J44.9 - COPD (chronic obstructive pulmonary disease) Status: Chronic (5) PTSD (post-traumatic stress disorder) ICD Code: F43.10 - Post-traumatic stress disorder, unspecified Assessment and Plan 11/18/17: No change. Awaiting placement. 1. Aggressive behavior, encephalopathy: Patient has had significant improvement in his mental status, likely back to baseline. Mental status does fluctuate, and he has periods of confusion. He was evaluated by psychiatry, and the Avelar act was lifted. Continue Seroquel, sertraline. 2. Thrombocytopenia: Chronic, at baseline. 3. Seizure disorder: Continue Depakote, Keppra. Seizure precautions. 4. PTSD, personality disorder: Appreciate psychiatry recommendations. Continue Seroquel. Trazodone daily at bedtime. 5. COPD: Respiratory status is at baseline. Currently stable on room air. 6. Generalized weakness: Patient has chronic debility likely secondary to chronic alcohol abuse. Continue physical therapy. 7. DVT prophylaxis: Lovenox. 8. UTI: Urine culture growing E. coli. Status post treatment with Levaquin. 9. Elevated PSA: Appreciate urology recommendations. 10. Right wrist pain: Improving. X-ray shows no fracture. Ultrasound is negative. MRI negative. Discharge Planning Discharge to SNF when arrangements are made. Patient is medically cleared for discharge. Case management assisting with discharge planning. Jose James MD Nov 18, 2017 11:17
[2017-11-18 12:52] VITALS: BP 100/68; PULSE 70; RESP 20; TEMP 98; O2SAT 96
[2017-11-18 20:45] VITALS: BP 126/65; PULSE 61; RESP 20; TEMP 98.4; O2SAT 97
[2017-11-18] MEDS: QUEtiapine FUMARATE 25 MG TAB PO SCH (21:58)
[2017-11-18] MEDS: DIVALPROEX SODIUM E.R. 500 MG TAB PO SCH (21:58)
[2017-11-18] MEDS: traZODone HCL 100 MG TAB PO SCH (21:59)
[2017-11-19 00:10] VITALS: BP 104/55; PULSE 72; RESP 18; TEMP 97.8; O2SAT 94
[2017-11-19 05:16] VITALS: BP 91/54; PULSE 69; RESP 18; TEMP 97.1; O2SAT 94
[2017-11-19 08:00] VITALS: BP 108/64; PULSE 65; RESP 19; TEMP 97.5; O2SAT 95
[2017-11-19] MEDS: LACTULOSE SYRUP 20 GM/30 ML CUP PO SCH ×2 (08:27→21:00)
[2017-11-19] MEDS: levETIRAcetam 500 MG TAB PO SCH ×2 (08:27→23:06)
[2017-11-19] MEDS: SERTRALINE HCL 100 MG TAB PO SCH (08:28)
[2017-11-19] MEDS: MULTIVITAMIN TAB PO SCH (08:28)
[2017-11-19] MEDS: DOCUSATE SODIUM 50 MG/SENNA 8.6 MG TAB PO SCH ×2 (08:28→23:06)
[2017-11-19] MEDS: ENOXAPARIN SODIUM 30 MG/0.3 ML SYRINGE SQ SCH (08:29)
[2017-11-19] MEDS: SODIUM CHLORIDE 0.9% FLUSH 10 ML FLUSH IV FLUSH SCH ×2 (08:33→21:00)
[2017-11-19 12:00] VITALS: BP_SYST 114; PULSE 72; RESP 18; TEMP 97.9; O2SAT 97
--- NOTE | 2017-11-19 14:17 | HHI.PR ---
Subjective Remarks Awaiting placement. Patient has no complaints at this time. Objective Vitals Vital Signs Date Time Temp Pulse Resp B/P (MAP) Pulse Ox O2 Delivery O2 Flow Rate FiO2 11/19/17 12:00 97.9 72 18 114/ 97 11/19/17 08:00 97.5 65 19 108/64 (79) 95 11/19/17 05:16 97.1 69 18 91/54 (66) 94 11/19/17 00:10 97.8 72 18 104/55 (71) 94 11/18/17 20:45 98.4 61 20 126/65 (85) 97 I/O 11/18/17 11/18/17 11/18/17 11/19/17 11/19/17 11/19/17 07:00 15:00 23:00 07:00 15:00 23:00 Intake Total 240 ml Balance 240 ml Intake Oral 240 ml # Voids 4 Imaging Last Impressions Wrist MRI 10/05/17 0000 Signed Impressions: Service Date/Time: Thursday, October 05, 2017 12:00 - CONCLUSION: 1. No evidence of osteomyelitis. 2. Effusion in the proximal carpal row and in the radiocarpal joint. Fermin Duggan MD Upper Extremity Ultrasound 10/03/17 0000 Signed Impressions: Service Date/Time: Monday, October 02, 2017 14:57 - CONCLUSION: 1. Negative for deep venous thrombosis right upper extremity. Fermin Duggan MD Wrist X-Ray 10/02/17 0000 Signed Impressions: Service Date/Time: Monday, October 02, 2017 10:18 - CONCLUSION: Unremarkable exam. No significant change compared to the prior study. Wade Butler MD Renal Ultrasound 09/24/17 0000 Signed Impressions: Service Date/Time: Sunday, September 24, 2017 09:53 - CONCLUSION: Negative for stone or obstruction. Silvestre Iniguez MD FACR Head CT 08/28/17 0000 Signed Impressions: Service Date/Time: Monday, August 28, 2017 06:05 - CONCLUSION: 1. No acute intracranial hemorrhage. 2. Stable diffuse bilateral cortical atrophy. 3. No significant change compared to the prior exam. Wade Butler MD Cervical Spine CT 08/28/17 0000 Signed Impressions: Service Date/Time: Monday, August 28, 2017 06:08 - CONCLUSION: 1. No acute bony fracture. 2. Stable diffuse primary degenerative changes involving the cervical spine. 3. No new or significant changes. Wade Butler MD Objective Remarks General: No acute distress. Heart: Regular rate and rhythm. No murmur. Lungs: Clear to auscultation bilaterally. No wheezes, rales, or rhonchi. Breathing is nonlabored. Abdomen: Soft, nontender, nondistended. Extremities: No lower extremity edema. Psych: Alert. Somewhat confused. Procedures None Urinary Catheter: No Vascular Central Line Catheter: No A/P Problem List: (1) Encephalopathy ICD Code: G93.40 - Encephalopathy Status: Acute (2) Alcohol-induced mood disorder ICD Code: F10.94 - Alcohol use, unspecified with alcohol-induced mood disorder Status: Acute (3) Debility ICD Code: R53.81 - Other malaise (4) COPD (chronic obstructive pulmonary disease) ICD Code: J44.9 - COPD (chronic obstructive pulmonary disease) Status: Chronic (5) PTSD (post-traumatic stress disorder) ICD Code: F43.10 - Post-traumatic stress disorder, unspecified Assessment and Plan 11/19/17: No change. Awaiting placement. 1. Aggressive behavior, encephalopathy: Patient has had significant improvement in his mental status, likely back to baseline. Mental status does fluctuate, and he has periods of confusion. He was evaluated by psychiatry, and the Avelar act was lifted. Continue Seroquel, sertraline. 2. Thrombocytopenia: Chronic, at baseline. 3. Seizure disorder: Continue Depakote, Keppra. Seizure precautions. 4. PTSD, personality disorder: Appreciate psychiatry recommendations. Continue Seroquel. Trazodone daily at bedtime. 5. COPD: Respiratory status is at baseline. Currently stable on room air. 6. Generalized weakness: Patient has chronic debility likely secondary to chronic alcohol abuse. Continue physical therapy. 7. DVT prophylaxis: Lovenox. 8. UTI: Urine culture growing E. coli. Status post treatment with Levaquin. 9. Elevated PSA: Appreciate urology recommendations. 10. Right wrist pain: Improving. X-ray shows no fracture. Ultrasound is negative. MRI negative. Discharge Planning Discharge to SNF when arrangements are made. Patient is medically cleared for discharge. Case management assisting with discharge planning. Jose James MD Nov 19, 2017 14:17
[2017-11-19 21:27] VITALS: BP 116/64; PULSE 65; RESP 18; TEMP 97.9; O2SAT 93
[2017-11-19] MEDS: QUEtiapine FUMARATE 25 MG TAB PO SCH (23:06)
[2017-11-19] MEDS: traZODone HCL 100 MG TAB PO SCH (23:06)
[2017-11-19] MEDS: DIVALPROEX SODIUM E.R. 500 MG TAB PO SCH (23:07)
[2017-11-20] VITALS: BP 123/74; PULSE 74; RESP 18; TEMP 97.8; O2SAT 97
[2017-11-20 04:27] VITALS: BP 119/60; PULSE 61; RESP 18; TEMP 97.8; O2SAT 97
[2017-11-20 08:00] VITALS: BP 115/72; PULSE 72; RESP 18; TEMP 98.5; O2SAT 97
[2017-11-20] MEDS: SODIUM CHLORIDE 0.9% FLUSH 10 ML FLUSH IV FLUSH SCH ×2 (09:00→21:00)
[2017-11-20] MEDS: DOCUSATE SODIUM 50 MG/SENNA 8.6 MG TAB PO SCH ×2 (09:28→22:24)
[2017-11-20] MEDS: LACTULOSE SYRUP 20 GM/30 ML CUP PO SCH ×2 (09:28→22:23)
[2017-11-20] MEDS: ENOXAPARIN SODIUM 30 MG/0.3 ML SYRINGE SQ SCH (09:28)
[2017-11-20] MEDS: levETIRAcetam 500 MG TAB PO SCH ×2 (09:28→22:24)
[2017-11-20] MEDS: SERTRALINE HCL 100 MG TAB PO SCH (09:29)
[2017-11-20] MEDS: MULTIVITAMIN TAB PO SCH (09:29)
--- NOTE | 2017-11-20 11:09 | HHI.PR ---
Subjective Remarks Awaiting placement. No events reported by nursing. Patient has no acute complaints. Objective Vitals Vital Signs Date Time Temp Pulse Resp B/P (MAP) Pulse Ox O2 Delivery O2 Flow Rate FiO2 11/20/17 08:00 98.5 72 18 115/72 (86) 97 11/20/17 04:27 97.8 61 18 119/60 (79) 97 11/20/17 00:00 97.8 74 18 123/74 (90) 97 11/19/17 21:27 97.9 65 18 116/64 (81) 93 11/19/17 12:00 97.9 72 18 114/ 97 I/O 11/19/17 11/19/17 11/19/17 11/20/17 11/20/17 11/20/17 07:00 15:00 23:00 07:00 15:00 23:00 Intake Total 240 ml Balance 240 ml Intake Oral 240 ml # Voids 1 Imaging Last Impressions Wrist MRI 10/05/17 0000 Signed Impressions: Service Date/Time: Thursday, October 05, 2017 12:00 - CONCLUSION: 1. No evidence of osteomyelitis. 2. Effusion in the proximal carpal row and in the radiocarpal joint. Fermin Duggan MD Upper Extremity Ultrasound 10/03/17 0000 Signed Impressions: Service Date/Time: Monday, October 02, 2017 14:57 - CONCLUSION: 1. Negative for deep venous thrombosis right upper extremity. Fermin Duggan MD Wrist X-Ray 10/02/17 0000 Signed Impressions: Service Date/Time: Monday, October 02, 2017 10:18 - CONCLUSION: Unremarkable exam. No significant change compared to the prior study. Wade Butler MD Renal Ultrasound 09/24/17 0000 Signed Impressions: Service Date/Time: Sunday, September 24, 2017 09:53 - CONCLUSION: Negative for stone or obstruction. Silvestre Iniguez MD FACR Head CT 08/28/17 0000 Signed Impressions: Service Date/Time: Monday, August 28, 2017 06:05 - CONCLUSION: 1. No acute intracranial hemorrhage. 2. Stable diffuse bilateral cortical atrophy. 3. No significant change compared to the prior exam. Wade Butler MD Cervical Spine CT 08/28/17 0000 Signed Impressions: Service Date/Time: Monday, August 28, 2017 06:08 - CONCLUSION: 1. No acute bony fracture. 2. Stable diffuse primary degenerative changes involving the cervical spine. 3. No new or significant changes. Wade Butler MD Objective Remarks General: No acute distress. Heart: Regular rate and rhythm. No murmur. Lungs: Clear to auscultation bilaterally. No wheezes, rales, or rhonchi. Breathing is nonlabored. Abdomen: Soft, nontender, nondistended. Extremities: No lower extremity edema. Psych: Alert. Somewhat confused. Procedures None Urinary Catheter: No Vascular Central Line Catheter: No A/P Problem List: (1) Encephalopathy ICD Code: G93.40 - Encephalopathy Status: Acute (2) Alcohol-induced mood disorder ICD Code: F10.94 - Alcohol use, unspecified with alcohol-induced mood disorder Status: Acute (3) Debility ICD Code: R53.81 - Other malaise (4) COPD (chronic obstructive pulmonary disease) ICD Code: J44.9 - COPD (chronic obstructive pulmonary disease) Status: Chronic (5) PTSD (post-traumatic stress disorder) ICD Code: F43.10 - Post-traumatic stress disorder, unspecified Assessment and Plan 11/20/17: No change. Awaiting placement. 1. Aggressive behavior, encephalopathy: Patient has had significant improvement in his mental status, likely back to baseline. Mental status does fluctuate, and he has periods of confusion. He was evaluated by psychiatry, and the Avelar act was lifted. Continue Seroquel, sertraline. 2. Thrombocytopenia: Chronic, at baseline. 3. Seizure disorder: Continue Depakote, Keppra. Seizure precautions. 4. PTSD, personality disorder: Appreciate psychiatry recommendations. Continue Seroquel. Trazodone daily at bedtime. 5. COPD: Respiratory status is at baseline. Currently stable on room air. 6. Generalized weakness: Patient has chronic debility likely secondary to chronic alcohol abuse. Continue physical therapy. 7. DVT prophylaxis: Lovenox. 8. UTI: Urine culture growing E. coli. Status post treatment with Levaquin. 9. Elevated PSA: Appreciate urology recommendations. 10. Right wrist pain: Improving. X-ray shows no fracture. Ultrasound is negative. MRI negative. Discharge Planning Discharge to SNF when arrangements are made. Patient is medically cleared for discharge. Case management assisting with discharge planning. Jose James MD Nov 20, 2017 11:09
[2017-11-20 12:00] VITALS: BP 111/66; PULSE 67; RESP 18; TEMP 98.1; O2SAT 95
[2017-11-20 16:00] VITALS: BP 115/65; PULSE 63; RESP 18; TEMP 97.6; O2SAT 97
[2017-11-20 21:15] VITALS: BP 126/86; PULSE 88; RESP 19; TEMP 97.7; O2SAT 96
[2017-11-20] MEDS: traZODone HCL 100 MG TAB PO SCH (22:23)
[2017-11-20] MEDS: QUEtiapine FUMARATE 25 MG TAB PO SCH (22:23)
[2017-11-20] MEDS: DIVALPROEX SODIUM E.R. 500 MG TAB PO SCH (22:24)
[2017-11-21 00:20] VITALS: BP 130/80; PULSE 80; RESP 20; TEMP 98.7; O2SAT 97
[2017-11-21 05:00] VITALS: BP 133/84; PULSE 76; RESP 19; TEMP 98; O2SAT 96
[2017-11-21] MEDS: SODIUM CHLORIDE 0.9% FLUSH 10 ML FLUSH IV FLUSH SCH ×2 (07:19→21:00)
[2017-11-21] MEDS: levETIRAcetam 500 MG TAB PO SCH ×2 (07:20→21:26)
[2017-11-21] MEDS: DOCUSATE SODIUM 50 MG/SENNA 8.6 MG TAB PO SCH ×2 (07:20→21:26)
[2017-11-21] MEDS: MULTIVITAMIN TAB PO SCH (07:20)
[2017-11-21] MEDS: SERTRALINE HCL 100 MG TAB PO SCH (07:20)
[2017-11-21] MEDS: LACTULOSE SYRUP 20 GM/30 ML CUP PO SCH ×2 (07:20→21:26)
[2017-11-21] MEDS: ENOXAPARIN SODIUM 30 MG/0.3 ML SYRINGE SQ SCH (07:21)
[2017-11-21 08:00] VITALS: BP 113/69; PULSE 75; RESP 16; TEMP 98.2; O2SAT 95
--- NOTE | 2017-11-21 09:51 | HHI.PR ---
Subjective Remarks No change overnight. Awaiting placement. Patient has no complaints at this time. Objective Vitals Vital Signs Date Time Temp Pulse Resp B/P (MAP) Pulse Ox O2 Delivery O2 Flow Rate FiO2 11/21/17 05:00 98.0 76 19 133/84 (100) 96 11/21/17 00:20 98.7 80 20 130/80 (97) 97 11/20/17 21:15 97.7 88 19 126/86 (99) 96 11/20/17 16:00 97.6 63 18 115/65 (82) 97 11/20/17 12:00 98.1 67 18 111/66 (81) 95 I/O 11/20/17 11/20/17 11/20/17 11/21/17 11/21/17 11/21/17 07:00 15:00 23:00 07:00 15:00 23:00 Intake Total 700 ml 900 ml Balance 700 ml 900 ml Intake Oral 700 ml 900 ml # Voids 1 0 2 # Bowel Movements 0 0 Imaging Last Impressions Wrist MRI 10/05/17 0000 Signed Impressions: Service Date/Time: Thursday, October 05, 2017 12:00 - CONCLUSION: 1. No evidence of osteomyelitis. 2. Effusion in the proximal carpal row and in the radiocarpal joint. Fermin Duggan MD Upper Extremity Ultrasound 10/03/17 0000 Signed Impressions: Service Date/Time: Monday, October 02, 2017 14:57 - CONCLUSION: 1. Negative for deep venous thrombosis right upper extremity. Fermin Duggan MD Wrist X-Ray 10/02/17 0000 Signed Impressions: Service Date/Time: Monday, October 02, 2017 10:18 - CONCLUSION: Unremarkable exam. No significant change compared to the prior study. Wade Butler MD Renal Ultrasound 09/24/17 0000 Signed Impressions: Service Date/Time: Sunday, September 24, 2017 09:53 - CONCLUSION: Negative for stone or obstruction. Silvestre Iniguez MD FACR Head CT 08/28/17 0000 Signed Impressions: Service Date/Time: Monday, August 28, 2017 06:05 - CONCLUSION: 1. No acute intracranial hemorrhage. 2. Stable diffuse bilateral cortical atrophy. 3. No significant change compared to the prior exam. Wade Butler MD Cervical Spine CT 08/28/17 0000 Signed Impressions: Service Date/Time: Monday, August 28, 2017 06:08 - CONCLUSION: 1. No acute bony fracture. 2. Stable diffuse primary degenerative changes involving the cervical spine. 3. No new or significant changes. Wade Butler MD Objective Remarks General: No acute distress. Heart: Regular rate and rhythm. No murmur. Lungs: Clear to auscultation bilaterally. No wheezes, rales, or rhonchi. Breathing is nonlabored. Abdomen: Soft, nontender, nondistended. Extremities: No lower extremity edema. Psych: Alert. Somewhat confused. Procedures None Urinary Catheter: No Vascular Central Line Catheter: No A/P Problem List: (1) Encephalopathy ICD Code: G93.40 - Encephalopathy Status: Acute (2) Alcohol-induced mood disorder ICD Code: F10.94 - Alcohol use, unspecified with alcohol-induced mood disorder Status: Acute (3) Debility ICD Code: R53.81 - Other malaise (4) COPD (chronic obstructive pulmonary disease) ICD Code: J44.9 - COPD (chronic obstructive pulmonary disease) Status: Chronic (5) PTSD (post-traumatic stress disorder) ICD Code: F43.10 - Post-traumatic stress disorder, unspecified Assessment and Plan 11/21/17: No change. Awaiting placement. 1. Aggressive behavior, encephalopathy: Patient has had significant improvement in his mental status, likely back to baseline. Mental status does fluctuate, and he has periods of confusion. He was evaluated by psychiatry, and the Avelar act was lifted. Continue Seroquel, sertraline. 2. Thrombocytopenia: Chronic, at baseline. 3. Seizure disorder: Continue Depakote, Keppra. Seizure precautions. 4. PTSD, personality disorder: Appreciate psychiatry recommendations. Continue Seroquel. Trazodone daily at bedtime. 5. COPD: Respiratory status is at baseline. Currently stable on room air. 6. Generalized weakness: Patient has chronic debility likely secondary to chronic alcohol abuse. Continue physical therapy. 7. DVT prophylaxis: Lovenox. 8. UTI: Urine culture growing E. coli. Status post treatment with Levaquin. 9. Elevated PSA: Appreciate urology recommendations. 10. Right wrist pain: Improving. X-ray shows no fracture. Ultrasound is negative. MRI negative. Discharge Planning Discharge to SNF when arrangements are made. Patient is medically cleared for discharge. Case management assisting with discharge planning. Jose James MD Nov 21, 2017 09:50
[2017-11-21 12:00] VITALS: BP 102/59; PULSE 68; RESP 16; TEMP 97.1; O2SAT 97
[2017-11-21 16:00] VITALS: BP 94/55; PULSE 62; RESP 16; TEMP 98.2; O2SAT 94
[2017-11-21 20:10] VITALS: BP 97/56; PULSE 68; RESP 16; TEMP 98; O2SAT 94
[2017-11-21] MEDS: traZODone HCL 100 MG TAB PO SCH (21:26)
[2017-11-21] MEDS: DIVALPROEX SODIUM E.R. 500 MG TAB PO SCH (21:26)
[2017-11-21] MEDS: QUEtiapine FUMARATE 25 MG TAB PO SCH (21:26)
[2017-11-22] VITALS: BP 99/57; PULSE 64; RESP 16; TEMP 98.2; O2SAT 94
[2017-11-22 04:00] VITALS: BP 102/64; PULSE 82; RESP 20; TEMP 98; O2SAT 95
[2017-11-22] MEDS: SODIUM CHLORIDE 0.9% FLUSH 10 ML FLUSH IV FLUSH SCH ×2 (07:16→21:00)
[2017-11-22] MEDS: LACTULOSE SYRUP 20 GM/30 ML CUP PO SCH ×2 (07:17→22:13)
[2017-11-22] MEDS: levETIRAcetam 500 MG TAB PO SCH ×2 (07:17→22:14)
[2017-11-22] MEDS: SERTRALINE HCL 100 MG TAB PO SCH (07:17)
[2017-11-22] MEDS: DOCUSATE SODIUM 50 MG/SENNA 8.6 MG TAB PO SCH ×2 (07:17→22:13)
[2017-11-22] MEDS: MULTIVITAMIN TAB PO SCH (07:18)
[2017-11-22] MEDS: ENOXAPARIN SODIUM 30 MG/0.3 ML SYRINGE SQ SCH (07:19)
[2017-11-22 08:12] VITALS: BP 113/67; PULSE 67; RESP 18; TEMP 97.8; O2SAT 96
--- NOTE | 2017-11-22 10:51 | HHI.PR ---
Subjective Remarks No complaints at this time. Objective Vitals Vital Signs Date Time Temp Pulse Resp B/P (MAP) Pulse Ox O2 Delivery O2 Flow Rate FiO2 11/22/17 08:12 97.8 67 18 113/67 (82) 96 11/22/17 04:00 98.0 82 20 102/64 (77) 95 11/22/17 00:00 98.2 64 16 99/57 (71) 94 11/21/17 20:10 98.0 68 16 97/56 (70) 94 11/21/17 16:00 98.2 62 16 94/55 (68) 94 11/21/17 12:00 97.1 68 16 102/59 (73) 97 I/O 11/21/17 11/21/17 11/21/17 11/22/17 11/22/17 11/22/17 07:00 15:00 23:00 07:00 15:00 23:00 Intake Total 900 ml Balance 900 ml Intake Oral 900 ml # Voids 2 2 # Bowel Movements 0 Imaging Last Impressions Wrist MRI 10/05/17 0000 Signed Impressions: Service Date/Time: Thursday, October 05, 2017 12:00 - CONCLUSION: 1. No evidence of osteomyelitis. 2. Effusion in the proximal carpal row and in the radiocarpal joint. Fermin Duggan MD Upper Extremity Ultrasound 10/03/17 0000 Signed Impressions: Service Date/Time: Monday, October 02, 2017 14:57 - CONCLUSION: 1. Negative for deep venous thrombosis right upper extremity. Fermin Duggan MD Wrist X-Ray 10/02/17 0000 Signed Impressions: Service Date/Time: Monday, October 02, 2017 10:18 - CONCLUSION: Unremarkable exam. No significant change compared to the prior study. Wade Butler MD Renal Ultrasound 09/24/17 0000 Signed Impressions: Service Date/Time: Sunday, September 24, 2017 09:53 - CONCLUSION: Negative for stone or obstruction. Silvestre Iniguez MD FACR Head CT 08/28/17 0000 Signed Impressions: Service Date/Time: Monday, August 28, 2017 06:05 - CONCLUSION: 1. No acute intracranial hemorrhage. 2. Stable diffuse bilateral cortical atrophy. 3. No significant change compared to the prior exam. Wade Butler MD Cervical Spine CT 08/28/17 0000 Signed Impressions: Service Date/Time: Monday, August 28, 2017 06:08 - CONCLUSION: 1. No acute bony fracture. 2. Stable diffuse primary degenerative changes involving the cervical spine. 3. No new or significant changes. Wade Butler MD Objective Remarks General: No acute distress. Heart: Regular rate and rhythm. No murmur. Lungs: Clear to auscultation bilaterally. No wheezes, rales, or rhonchi. Breathing is nonlabored. Abdomen: Soft, nontender, nondistended. Extremities: No lower extremity edema. Psych: Alert. Somewhat confused. Procedures None Urinary Catheter: No Vascular Central Line Catheter: No A/P Problem List: (1) Encephalopathy ICD Code: G93.40 - Encephalopathy Status: Acute (2) Alcohol-induced mood disorder ICD Code: F10.94 - Alcohol use, unspecified with alcohol-induced mood disorder Status: Acute (3) Debility ICD Code: R53.81 - Other malaise (4) COPD (chronic obstructive pulmonary disease) ICD Code: J44.9 - COPD (chronic obstructive pulmonary disease) Status: Chronic (5) PTSD (post-traumatic stress disorder) ICD Code: F43.10 - Post-traumatic stress disorder, unspecified Assessment and Plan 11/22/17: No change. Awaiting placement. 1. Aggressive behavior, encephalopathy: Patient has had significant improvement in his mental status, likely back to baseline. He was evaluated by psychiatry, and the Avelar act was lifted. Continue Seroquel, sertraline. 2. Thrombocytopenia: Chronic, at baseline. 3. Seizure disorder: Continue Depakote, Keppra. Seizure precautions. 4. PTSD, personality disorder: Appreciate psychiatry recommendations. Continue Seroquel. Trazodone daily at bedtime. 5. COPD: Respiratory status is at baseline. Currently stable on room air. 6. Generalized weakness: Patient has chronic debility likely secondary to chronic alcohol abuse. 7. DVT prophylaxis: Lovenox. 8. UTI: Urine culture growing E. coli. Status post treatment with Levaquin. 9. Elevated PSA: Appreciate urology recommendations. 10. Right wrist pain: Improved. X-ray shows no fracture. Ultrasound is negative. MRI negative. Discharge Planning Discharge to SNF when arrangements are made. Patient is medically cleared for discharge. Case management assisting with discharge planning. Jose James MD Nov 22, 2017 10:51
[2017-11-22 12:42] VITALS: BP 106/62; PULSE 67; RESP 18; TEMP 98; O2SAT 95
[2017-11-22 16:28] VITALS: BP 101/63; PULSE 64; RESP 18; TEMP 98; O2SAT 95
[2017-11-22 20:30] VITALS: BP 93/55; PULSE 63; RESP 17; TEMP 98.9; O2SAT 96
[2017-11-22] MEDS: QUEtiapine FUMARATE 25 MG TAB PO SCH (22:13)
[2017-11-22] MEDS: DIVALPROEX SODIUM E.R. 500 MG TAB PO SCH (22:13)
[2017-11-22] MEDS: traZODone HCL 100 MG TAB PO SCH (22:14)
[2017-11-23] VITALS (8 sets, daily range): BP systolic 86–110; BP diastolic 51–65; PULSE 59–71; RESP 17–18; TEMP 98–98.9; O2SAT 94–97
[2017-11-23] MEDS: SODIUM CHLORIDE 0.9% FLUSH 10 ML FLUSH IV FLUSH SCH ×2 (07:20→21:00)
[2017-11-23] MEDS: ENOXAPARIN SODIUM 30 MG/0.3 ML SYRINGE SQ SCH (07:21)
[2017-11-23] MEDS: SERTRALINE HCL 100 MG TAB PO SCH (07:21)
[2017-11-23] MEDS: MULTIVITAMIN TAB PO SCH (07:21)
[2017-11-23] MEDS: levETIRAcetam 500 MG TAB PO SCH ×2 (07:21→22:58)
[2017-11-23] MEDS: DOCUSATE SODIUM 50 MG/SENNA 8.6 MG TAB PO SCH ×2 (07:21→22:59)
[2017-11-23] MEDS: LACTULOSE SYRUP 20 GM/30 ML CUP PO SCH ×3 (07:21→22:58)
[2017-11-23] MEDS: ACETAMINOPHEN/HYDROcodone 325 MG/5 MG TAB PO PRN (11:11)
--- NOTE | 2017-11-23 11:23 | HHI.PR ---
Subjective Remarks Awaiting placement. No change overnight. Objective Vitals Vital Signs Date Time Temp Pulse Resp B/P (MAP) Pulse Ox O2 Delivery O2 Flow Rate FiO2 11/23/17 08:29 98.7 61 18 106/64 (78) 96 11/23/17 04:45 98.6 68 17 105/60 (75) 96 11/23/17 00:29 98.9 71 17 86/51 (63) 96 11/22/17 20:30 98.9 63 17 93/55 (68) 96 11/22/17 16:28 98.0 64 18 101/63 (76) 95 11/22/17 12:42 98.0 67 18 106/62 (77) 95 I/O 11/22/17 11/22/17 11/22/17 11/23/17 11/23/17 11/23/17 07:00 15:00 23:00 07:00 15:00 23:00 Intake Total 600 ml 600 ml Balance 600 ml 600 ml Intake Oral 600 ml 600 ml # Voids 2 3 4 # Bowel Movements 1 Imaging Last Impressions Wrist MRI 10/05/17 0000 Signed Impressions: Service Date/Time: Thursday, October 05, 2017 12:00 - CONCLUSION: 1. No evidence of osteomyelitis. 2. Effusion in the proximal carpal row and in the radiocarpal joint. Fermin Duggan MD Upper Extremity Ultrasound 10/03/17 0000 Signed Impressions: Service Date/Time: Monday, October 02, 2017 14:57 - CONCLUSION: 1. Negative for deep venous thrombosis right upper extremity. Fermin Duggan MD Wrist X-Ray 10/02/17 0000 Signed Impressions: Service Date/Time: Monday, October 02, 2017 10:18 - CONCLUSION: Unremarkable exam. No significant change compared to the prior study. Wade Butler MD Renal Ultrasound 09/24/17 0000 Signed Impressions: Service Date/Time: Sunday, September 24, 2017 09:53 - CONCLUSION: Negative for stone or obstruction. Silvestre Iniguez MD FACR Head CT 08/28/17 0000 Signed Impressions: Service Date/Time: Monday, August 28, 2017 06:05 - CONCLUSION: 1. No acute intracranial hemorrhage. 2. Stable diffuse bilateral cortical atrophy. 3. No significant change compared to the prior exam. Wade Butler MD Cervical Spine CT 08/28/17 0000 Signed Impressions: Service Date/Time: Monday, August 28, 2017 06:08 - CONCLUSION: 1. No acute bony fracture. 2. Stable diffuse primary degenerative changes involving the cervical spine. 3. No new or significant changes. Wade Butler MD Objective Remarks General: No acute distress. Heart: Regular rate and rhythm. No murmur. Lungs: Clear to auscultation bilaterally. No wheezes, rales, or rhonchi. Breathing is nonlabored. Abdomen: Soft, nontender, nondistended. Extremities: No lower extremity edema. Psych: Alert. Somewhat confused. Procedures None Urinary Catheter: No Vascular Central Line Catheter: No A/P Problem List: (1) Encephalopathy ICD Code: G93.40 - Encephalopathy Status: Acute (2) Alcohol-induced mood disorder ICD Code: F10.94 - Alcohol use, unspecified with alcohol-induced mood disorder Status: Acute (3) Debility ICD Code: R53.81 - Other malaise (4) COPD (chronic obstructive pulmonary disease) ICD Code: J44.9 - COPD (chronic obstructive pulmonary disease) Status: Chronic (5) PTSD (post-traumatic stress disorder) ICD Code: F43.10 - Post-traumatic stress disorder, unspecified Assessment and Plan 11/23/17: No change. Awaiting placement. 1. Aggressive behavior, encephalopathy: Patient has had significant improvement in his mental status, likely back to baseline. He was evaluated by psychiatry, and the Avelar act was lifted. Continue Seroquel, sertraline. 2. Thrombocytopenia: Chronic, at baseline. 3. Seizure disorder: Continue Depakote, Keppra. Seizure precautions. 4. PTSD, personality disorder: Appreciate psychiatry recommendations. Continue Seroquel. Trazodone daily at bedtime. 5. COPD: Respiratory status is at baseline. Currently stable on room air. 6. Generalized weakness: Patient has chronic debility likely secondary to chronic alcohol abuse. 7. DVT prophylaxis: Lovenox. 8. UTI: Urine culture growing E. coli. Status post treatment with Levaquin. 9. Elevated PSA: Appreciate urology recommendations. 10. Right wrist pain: Improved. X-ray shows no fracture. Ultrasound is negative. MRI negative. Discharge Planning Discharge to SNF when arrangements are made. Patient is medically cleared for discharge. Case management assisting with discharge planning. Jose James MD Nov 23, 2017 11:23
--- NOTE | 2017-11-23 11:32 | HHI.HCPN ---
Reason for visit a. To assist with evaluation and management of symptoms including: Pain b. To assist medical decision maker(s) with: better understanding of current medical conditions; weighing benefits/burdens of medical treatment options; making medical treatment decisions. Subjective/Interval History Follow up for symptom management and further clarification of goals. Patient is in bed, awake, alert and oriented to self, place and situation. Patient is hard of hearing. Patient complaining of lower back pain. Bedside RN notified. Patient states that he has not been able to sleep well due to discomfort from pain and he states that, " i do not do well in pain. If i didn`t feel pain i would be sitting up in a chair or walking around". Encouraged patient to request for pain medication before it gets excruciating. Patient has hydrocodone /acetaminophen 5/325 q 6 hrs prn verbalized understanding. Patient sparingly using pain medication. Last dose given on 11/12/17. Vital signs stable. No recent labwork or imaging. Case management continues to assist with placement. . Family/friend interactions No family at bedside. . Advance Directives Living Will: Never completed Health Care Surrogate: Never completed Durable Power of Outdoor Recreation Specialist: Never completed Advance Directive Specifics Health Care Surrogate(s): Health care Surrogate -Significant other-Anna McadamsWhptpymf-[phone] . Objective Vital Signs Date Time Temp Pulse Resp B/P (MAP) Pulse Ox O2 Delivery O2 Flow Rate FiO2 11/23/17 08:29 98.7 61 18 106/64 (78) 96 11/23/17 04:45 98.6 68 17 105/60 (75) 96 11/23/17 00:29 98.9 71 17 86/51 (63) 96 11/22/17 20:30 98.9 63 17 93/55 (68) 96 11/22/17 16:28 98.0 64 18 101/63 (76) 95 11/22/17 12:42 98.0 67 18 106/62 (77) 95 Intake & Output 11/23/17 11/23/17 07:00 19:00 Intake Total 600 ml Balance 600 ml Intake Oral 600 ml # Voids 4 Physical Exam CONSTITUTIONAL/GENERAL: This is an adequately nourished patient, in no apparent distress. Complaining of back pain TUBES/LINES/DRAINS: SKIN: No jaundice, rashes, or lesions. Ecchymoses on upper extremities. No wounds seen anteriorly. Skin temperature appropriate. Not diaphoretic. HEAD: Atraumatic. Normocephalic. EYES: Pupils equal and round and reactive. Extraocular motions intact. No scleral icterus. No injection or drainage. Fundi not examined. ENT: Hard of Hearing.Nose without bleeding or purulent drainage. NECK: Trachea midline. Supple, nontender. CARDIOVASCULAR: Regular rate and rhythm without murmurs, gallops, or rubs. No JVD. Peripheral pulses symmetric. RESPIRATORY/CHEST: Symmetric, unlabored respirations. Clear to auscultation. Breath sounds equal bilaterally. No wheezes, rales, or rhonchi. GASTROINTESTINAL: Abdomen soft, non-tender, nondistended. No guarding. Bowel sounds present. GENITOURINARY: Without palpable bladder distension. MUSCULOSKELETAL: Extremities without clubbing, cyanosis, or edema. No joint tenderness or effusion noted. No calf tenderness. No mottling or clubbing. NEUROLOGICAL: Awake, alert oriented to self, lace and situation. Motor and sensory grossly within normal limits. Follows commands. Moves all extremities. PSYCHIATRIC: No obvious anxiety/depression. no apparent hallucinations or other psychotic thought process. . Assessment and Plan Disease Oriented Problem List: (1) Alcohol-induced mood disorder (2) PTSD (post-traumatic stress disorder) (3) Bipolar disorder (4) COPD (chronic obstructive pulmonary disease) Symptom Scale: (1) Decreased oral intake 0-10 Scale: Unable to quantify (2) Pain 0-10 Scale: Unable to quantify Comment: Multifactorial. c/o pain to Right shoulder and wrist. Wrist MRI on revealed effusion in the proximal carpal row and in the radiocarpal joint and no osteomyelitis. . Pertinent Non-Medical Issues Psychosocial:Patient was born and raised in [place]. Patient served in the [employer] during the [place] war for 6 years. He moved to [place] in the 1970s. Patient was and once. He has 2 sons whom he states he has not spoken to in about 10 years. Patient stated that the last he heard from them was about 10 years ago and at that time they were in [place], [place]. Spiritual:Patient is Orthodoxy-Prefers [employer]- [facility] heel buffer visit Legal:Does not have advance directives- Provide pt with [facility] form Ethical issues impacting care:None identified at this time . Important Contacts Health care Surrogate -Significant other-Anna McadamsRkzwfkog-[phone] Son-Pardeep Peters-[phone] Son-Deon Heath Marker- Father- Edy Peters Tr-[phone] [employer] [facility]- Payee- Dianelys Chambers - [phone] . Prognosis Mr. Valenzuela is a 62-year-old with a past medical history of bipolar disorder, seizure disorder, gout, chronic low back pain, COPD, hypertension, chronic alcoholic pancreatitis, hepatitis B and C, dyslipidemia, and alcoholism. Patient was brought to the ER from an [facility] by EMS on August 28, 2017 to be evaluated for altered mental status, behavioral disturbances and a witnessed fall. Clinical course complicated with decreased oral intake, hypotension, urinary tract infection. . Code Status: No Code Plan PLAN: Legal decision maker: Patient is capable of participating in making his own medical decisions. In the event that he is incapacitated, patient designated his significant other Erika Mcadams to serve as his HCS. Goals: Remain aggressive short of no code. Patient awaiting placement. CODE STATUS: No Code DNR- Community DNR signed SYMPTOMS: * Pain: Multifactorial. Pain can be from bedbound, and other source for pain could be IV. Patient also had complaints of pain to his right wrist. Wrist MRI on 10/05 revealed effusion in the proximal carpal row and in the radiocarpal joint and no osteomyelitis.Patient has Hydrocodone/acetaminophen 5/325. Sparingly using pain medication, though he complains of lower back pain limiting him on activity. Encouraged patient to ask for pain medication. His last hydrocodone dose was given on 11/12/17. Patient was started on naproxen 375 mg every 8 hours ATC. Continue to assess patient for pain. * Decreased oral intake: Resolved. Patient is now consuming 50-100% of his meals. Palliative care will continue to follow the patient during hospital course as condition evolves, to assist patient/decision-maker with understanding of their medical conditions, weighing benefits/burdens of treatment options, for clarification of goals of treatment. Additionally will assist with any symptoms of palliative concern Attestation To help prompt me to consider important information that might be impacting today's encounter and assessment, information from prior notes written by myself or my colleagues may have been "brought forward" into today's note. My signature on this note, however, is an attestation that I personally performed the exam, history, and/or decision-making noted today, and, unless otherwise indicated, the interactions with patient, family, and staff as well as the review of records all occurred today. I also attest that the listed assessment and stated plan reflect my best clinical judgment today based on the combination of historical information, prior notes, and today's exam/ interactions. When time spent is documented, it refers only to time spent today by the signer, or if indicated, combined time spent today by collaborating physician/nurse practitioner. Robin Dominguez Nov 23, 2017 11:32
[2017-11-23] MEDS: DIVALPROEX SODIUM E.R. 500 MG TAB PO SCH (22:58)
[2017-11-23] MEDS: QUEtiapine FUMARATE 25 MG TAB PO SCH (22:59)
[2017-11-23] MEDS: traZODone HCL 100 MG TAB PO SCH (22:59)
[2017-11-24 00:37] VITALS: BP 105/60; PULSE 61; RESP 18; TEMP 98; O2SAT 94
[2017-11-24] MEDS: SODIUM CHLORIDE 0.9% FLUSH 10 ML FLUSH IV FLUSH SCH ×2 (07:29→20:11)
[2017-11-24] MEDS: LACTULOSE SYRUP 20 GM/30 ML CUP PO SCH ×3 (07:30→20:11)
[2017-11-24] MEDS: DOCUSATE SODIUM 50 MG/SENNA 8.6 MG TAB PO SCH ×2 (07:30→20:11)
[2017-11-24] MEDS: MULTIVITAMIN TAB PO SCH (07:30)
[2017-11-24] MEDS: levETIRAcetam 500 MG TAB PO SCH ×2 (07:30→20:11)
[2017-11-24] MEDS: SERTRALINE HCL 100 MG TAB PO SCH (07:30)
[2017-11-24] MEDS: ENOXAPARIN SODIUM 30 MG/0.3 ML SYRINGE SQ SCH (07:31)
[2017-11-24 07:43] VITALS: BP 94/61; PULSE 66; RESP 18; TEMP 98.1; O2SAT 97
[2017-11-24 11:44] VITALS: BP 99/64; PULSE 68; RESP 17; TEMP 97.9; O2SAT 96
[2017-11-24 16:11] VITALS: BP 118/68; PULSE 66; RESP 18; TEMP 98.6; O2SAT 96
[2017-11-24 20:09] VITALS: BP 125/74; PULSE 66; RESP 16; TEMP 98.6; O2SAT 96
[2017-11-24] MEDS: QUEtiapine FUMARATE 25 MG TAB PO SCH (20:10)
[2017-11-24] MEDS: DIVALPROEX SODIUM E.R. 500 MG TAB PO SCH (20:10)
[2017-11-24] MEDS: traZODone HCL 100 MG TAB PO SCH (20:11)
--- NOTE | 2017-11-24 22:06 | HHI.PR ---
Subjective Remarks Patient says he is feeling all right. Denies any pain. He says there was some gold in his bed but cannot find it now. Objective Vital Signs Date Time Temp Pulse Resp B/P (MAP) Pulse Ox O2 Delivery O2 Flow Rate FiO2 11/24/17 20:09 98.6 66 16 125/74 (91) 96 11/24/17 16:11 98.6 66 18 118/68 (85) 96 11/24/17 11:44 97.9 68 17 99/64 (76) 96 11/24/17 07:43 98.1 66 18 94/61 (72) 97 11/24/17 00:37 98.0 61 18 105/60 (75) 94 I/O 11/23/17 11/23/17 11/23/17 11/24/17 11/24/17 11/24/17 07:00 15:00 23:00 07:00 15:00 23:00 Intake Total 600 ml 480 ml Balance 600 ml 480 ml Intake Oral 600 ml 480 ml # Voids 4 3 1 1 # Bowel Movements 1 Objective Remarks GENERAL: patient sitting bed. Appears comfortable. Pleasant and cooperative. SKIN: Warm and dry. HEAD: Normocephalic. EYES: No scleral icterus. No injection or drainage. NECK: Supple, trachea midline. No JVD or lymphadenopathy. CARDIOVASCULAR: Regular rate and rhythm without murmurs, gallops, or rubs. RESPIRATORY: Breath sounds equal bilaterally. No accessory muscle use. GASTROINTESTINAL: Abdomen soft, non-tender, nondistended. MUSCULOSKELETAL: No cyanosis, or edema. BACK: Nontender without obvious deformity. No CVA tenderness. A/P Assessment and Plan 11/24. No change in management. Continue to await SNF placement. Discussed with nursing and case management MDR. 11/23/17: No change. Awaiting placement. //Aggressive behavior, encephalopathy: Patient has had significant improvement in his mental status, likely back to baseline. He was evaluated by psychiatry, and the Avelar act was lifted. Continue Seroquel, sertraline. // Thrombocytopenia: Chronic, at baseline. //Seizure disorder: Continue Depakote, Keppra. Seizure precautions. //PTSD, personality disorder: Appreciate psychiatry recommendations. Continue Seroquel. Trazodone daily at bedtime. //COPD: Respiratory status is at baseline. Currently stable on room air. // Generalized weakness: Patient has chronic debility likely secondary to chronic alcohol abuse. // DVT prophylaxis: Lovenox. //UTI: Urine culture growing E. coli. Status post treatment with Levaquin. //Elevated PSA: Appreciate urology recommendations. // Right wrist pain: Improved. X-ray shows no fracture. Ultrasound is negative. MRI negative. Discharge Planning Discharge to SNF when arrangements are made. Patient is medically cleared for discharge. Case management assisting with discharge planning. Raf Herron MD Nov 24, 2017 22:06
[2017-11-25] VITALS: BP 128/89; PULSE 113; RESP 19; TEMP 98.8; O2SAT 97
[2017-11-25 04:00] VITALS: BP 128/89; PULSE 101; RESP 19; TEMP 98.3; O2SAT 97
[2017-11-25 08:00] VITALS: BP 111/65; PULSE 67; RESP 18; TEMP 98.3; O2SAT 96
[2017-11-25] MEDS: SODIUM CHLORIDE 0.9% FLUSH 10 ML FLUSH IV FLUSH SCH ×2 (09:00→21:00)
[2017-11-25] MEDS: SERTRALINE HCL 100 MG TAB PO SCH (10:15)
[2017-11-25] MEDS: levETIRAcetam 500 MG TAB PO SCH ×2 (10:15→22:09)
[2017-11-25] MEDS: LACTULOSE SYRUP 20 GM/30 ML CUP PO SCH ×2 (10:15→22:08)
[2017-11-25] MEDS: DOCUSATE SODIUM 50 MG/SENNA 8.6 MG TAB PO SCH ×2 (10:15→22:10)
[2017-11-25] MEDS: ENOXAPARIN SODIUM 30 MG/0.3 ML SYRINGE SQ SCH (10:15)
[2017-11-25] MEDS: MULTIVITAMIN TAB PO SCH (10:16)
[2017-11-25] MEDS: ACETAMINOPHEN/HYDROcodone 325 MG/5 MG TAB PO PRN ×2 (10:20→15:41)
[2017-11-25 12:00] VITALS: BP 104/67; PULSE 62; RESP 18; TEMP 98.7; O2SAT 94
--- NOTE | 2017-11-25 15:53 | HHI.HCPN ---
Reason for visit a. To assist with evaluation and management of symptoms including: Pain b. To assist medical decision maker(s) with: better understanding of current medical conditions; weighing benefits/burdens of medical treatment options; making medical treatment decisions. Subjective/Interval History Follow up for symptom management . Patient seen in his room, in bed awake and c/ o pain to his left hip. Patient states that he just woke up and has no idea where he is or what time of the day it is. Reoriented to time and place. Patient has hard of hearing. Patient last medicated for pain at 1020hrs . Sparingly needing prn pain medication. Bedside notified that patient is complaining of pain. No recent labwork or imaging. Case management assisting with placement. . Family/friend interactions No family at bedside. . Advance Directives Living Will: Never completed Health Care Surrogate: Never completed Durable Power of Metal Riveter: Never completed Advance Directive Specifics Health Care Surrogate(s): Health care Surrogate -Significant other-Anna McadamsRlofdkwc-[phone] . Objective Vital Signs Date Time Temp Pulse Resp B/P (MAP) Pulse Ox O2 Delivery O2 Flow Rate FiO2 11/25/17 12:00 98.7 62 18 104/67 (79) 94 11/25/17 08:00 98.3 67 18 111/65 (80) 96 11/25/17 04:00 98.3 101 19 128/89 (102) 97 11/25/17 00:00 98.8 113 19 128/89 (102) 97 11/24/17 20:09 98.6 66 16 125/74 (91) 96 11/24/17 16:11 98.6 66 18 118/68 (85) 96 Intake & Output 11/25/17 11/25/17 06:59 18:59 Intake Total 1900 ml Output Total 0 ml Balance 1900 ml Intake Oral 1900 ml Stool Total 0 ml # Voids 1 # Bowel Movements 0 Physical Exam CONSTITUTIONAL/GENERAL: This is an adequately nourished patient, in no apparent distress. Complaining of hip pain TUBES/LINES/DRAINS: SKIN: No jaundice, rashes, or lesions. Ecchymoses on upper extremities. No wounds seen anteriorly. Skin temperature appropriate. Not diaphoretic. HEAD: Atraumatic. Normocephalic. EYES: Pupils equal and round and reactive. Extraocular motions intact. No scleral icterus. No injection or drainage. Fundi not examined. ENT: Hard of Hearing.Nose without bleeding or purulent drainage. NECK: Trachea midline. Supple, nontender. CARDIOVASCULAR: Regular rate and rhythm without murmurs, gallops, or rubs. No JVD. Peripheral pulses symmetric. RESPIRATORY/CHEST: Symmetric, unlabored respirations. Clear to auscultation. Breath sounds equal bilaterally. No wheezes, rales, or rhonchi. GASTROINTESTINAL: Abdomen soft, non-tender, nondistended. No guarding. Bowel sounds present. GENITOURINARY: Without palpable bladder distension. MUSCULOSKELETAL: Extremities without clubbing, cyanosis, or edema. No joint tenderness or effusion noted. No calf tenderness. No mottling or clubbing. NEUROLOGICAL: Awake, just woke up, some confusion. Motor and sensory grossly within normal limits. Follows commands. Moves all extremities. PSYCHIATRIC: No obvious anxiety/depression. no apparent hallucinations or other psychotic thought process. . Assessment and Plan Disease Oriented Problem List: (1) Alcohol-induced mood disorder (2) PTSD (post-traumatic stress disorder) (3) Bipolar disorder (4) COPD (chronic obstructive pulmonary disease) Symptom Scale: (1) Decreased oral intake 0-10 Scale: Unable to quantify (2) Pain 0-10 Scale: Unable to quantify Comment: Multifactorial. c/o pain to Right shoulder and wrist. Wrist MRI on revealed effusion in the proximal carpal row and in the radiocarpal joint and no osteomyelitis. . Pertinent Non-Medical Issues Psychosocial:Patient was born and raised in [place]. Patient served in the [employer] during the [place] war for 6 years. He moved to [place] in the 1970s. Patient was and once. He has 2 sons whom he states he has not spoken to in about 10 years. Patient stated that the last he heard from them was about 10 years ago and at that time they were in [place], [place]. 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 Important Contacts Health care Surrogate -Significant other-Anna McadamsOimqvjqy-[phone] Son-Pardeep Vfcfuc-[phone] Son-Deon Heath Marker- Father- Edy Peters Db-[phone] [place] [facility]- Payee- Dianelys [place] - [phone] . Prognosis Mr. Valenzuela is a 62-year-old with a past medical history of bipolar disorder, seizure disorder, gout, chronic low back pain, COPD, hypertension, chronic alcoholic pancreatitis, hepatitis B and C, dyslipidemia, and alcoholism. Patient was brought to the ER from an [facility] by EMS on August 28, 2017 to be evaluated for altered mental status, behavioral disturbances and a witnessed fall. Clinical course complicated with decreased oral intake, hypotension, urinary tract infection. . Code Status: No Code Plan PLAN: Legal decision maker: Patient is capable of participating in making his own medical decisions. In the event that he is incapacitated, patient designated his significant other Erika Mcadams to serve as his HCS. Goals: Remain aggressive short of no code. Patient awaiting placement. CODE STATUS: No Code DNR- Community DNR signed SYMPTOMS: * Pain: Multifactorial. Pain can be from bedbound, and other source for pain could be IV. Patient also had complaints of pain to his right wrist. Wrist MRI on 10/05 revealed effusion in the proximal carpal row and in the radiocarpal joint and no osteomyelitis.Patient has Hydrocodone/acetaminophen 5/325. Complaining of left hip pain today. Encouraged patient to ask for pain medication. His last hydrocodone dose was given on 11/25/17. Patient was started on naproxen 375 mg every 8 hours ATC. Continue to assess patient for pain. * Decreased oral intake: Resolved. Patient is now consuming 50-100% of his meals. Palliative care will continue to follow the patient during hospital course as condition evolves, to assist patient/decision-maker with understanding of their medical conditions, weighing benefits/burdens of treatment options, for clarification of goals of treatment. Additionally will assist with any symptoms of palliative concern Attestation To help prompt me to consider important information that might be impacting today's encounter and assessment, information from prior notes written by myself or my colleagues may have been "brought forward" into today's note. My signature on this note, however, is an attestation that I personally performed the exam, history, and/or decision-making noted today, and, unless otherwise indicated, the interactions with patient, family, and staff as well as the review of records all occurred today. I also attest that the listed assessment and stated plan reflect my best clinical judgment today based on the combination of historical information, prior notes, and today's exam/ interactions. When time spent is documented, it refers only to time spent today by the signer, or if indicated, combined time spent today by collaborating physician/nurse practitioner. Robin Dominguez Nov 25, 2017 15:53
[2017-11-25 16:00] VITALS: BP_SYST 140; BP_SYST 97; BP_DIAS 63; BP_DIAS 64; PULSE 72; PULSE 75; RESP 18; TEMP 97.5; O2SAT 100; O2SAT 98
[2017-11-25 20:00] VITALS: BP 96/59; PULSE 62; RESP 16; TEMP 97; O2SAT 96
[2017-11-25] MEDS: DIVALPROEX SODIUM E.R. 500 MG TAB PO SCH (22:09)
[2017-11-25] MEDS: traZODone HCL 100 MG TAB PO SCH (22:09)
[2017-11-25] MEDS: QUEtiapine FUMARATE 25 MG TAB PO SCH (22:09)
--- NOTE | 2017-11-25 22:32 | HHI.PR ---
Subjective Remarks Patient seen today around 1 PM. Indicates he is feeling all right. Very talkative. Pleasant. Objective Vital Signs Date Time Temp Pulse Resp B/P (MAP) Pulse Ox O2 Delivery O2 Flow Rate FiO2 11/25/17 20:00 97.0 62 16 96/59 (71) 96 11/25/17 16:00 97.5 72 18 97/63 (74) 98 11/25/17 12:00 98.7 62 18 104/67 (79) 94 11/25/17 08:00 98.3 67 18 111/65 (80) 96 11/25/17 04:00 98.3 101 19 128/89 (102) 97 11/25/17 00:00 98.8 113 19 128/89 (102) 97 I/O 11/24/17 11/24/17 11/24/17 11/25/17 11/25/17 11/25/17 07:00 15:00 23:00 07:00 15:00 23:00 Intake Total 1000 ml 900 ml Output Total 0 ml Balance 1000 ml 900 ml Intake Oral 1000 ml 900 ml Stool Total 0 ml # Voids 1 0 1 3 # Bowel Movements 0 1 Objective Remarks GENERAL: patient sitting bed. Appears comfortable. Pleasant and cooperative.No change on exam from day prior. SKIN: Warm and dry. HEAD: Normocephalic. EYES: No scleral icterus. No injection or drainage. NECK: Supple, trachea midline. No JVD or lymphadenopathy. CARDIOVASCULAR: Regular rate and rhythm without murmurs, gallops, or rubs. RESPIRATORY: Breath sounds equal bilaterally. No accessory muscle use. GASTROINTESTINAL: Abdomen soft, non-tender, nondistended. MUSCULOSKELETAL: No cyanosis, or edema. BACK: Nontender without obvious deformity. No CVA tenderness. A/P Assessment and Plan 11/25. No change in management. Discussed with nursing and case management MDR. 11/24. No change in management. Continue to await SNF placement. Discussed with nursing and case management MDR. //Aggressive behavior, encephalopathy: Patient has had significant improvement in his mental status, likely back to baseline. He was evaluated by psychiatry, and the Avelar act was lifted. Continue Seroquel, sertraline. // Thrombocytopenia: Chronic, at baseline. //Seizure disorder: Continue Depakote, Keppra. Seizure precautions. //PTSD, personality disorder: Appreciate psychiatry recommendations. Continue Seroquel. Trazodone daily at bedtime. //COPD: Respiratory status is at baseline. Currently stable on room air. // Generalized weakness: Patient has chronic debility likely secondary to chronic alcohol abuse. // DVT prophylaxis: Lovenox. //UTI: Urine culture growing E. coli. Status post treatment with Levaquin. //Elevated PSA: Appreciate urology recommendations. // Right wrist pain: Improved. X-ray shows no fracture. Ultrasound is negative. MRI negative. Discharge Planning Discharge to SNF when arrangements are made. Patient is medically cleared for discharge. Case management assisting with discharge planning. Raf Herron MD Nov 25, 2017 22:32
[2017-11-26] VITALS (7 sets, daily range): BP systolic 97–129; BP diastolic 65–88; PULSE 64–108; RESP 16–18; TEMP 97.9–98.7; O2SAT 92–98
[2017-11-26] MEDS: ACETAMINOPHEN/HYDROcodone 325 MG/5 MG TAB PO PRN ×2 (05:55→18:33)
[2017-11-26] MEDS: SODIUM CHLORIDE 0.9% FLUSH 10 ML FLUSH IV FLUSH SCH ×2 (09:00→20:18)
[2017-11-26] MEDS: SERTRALINE HCL 100 MG TAB PO SCH (09:58)
[2017-11-26] MEDS: DOCUSATE SODIUM 50 MG/SENNA 8.6 MG TAB PO SCH ×2 (09:58→20:17)
[2017-11-26] MEDS: levETIRAcetam 500 MG TAB PO SCH ×2 (09:58→20:17)
[2017-11-26] MEDS: MULTIVITAMIN TAB PO SCH (09:58)
[2017-11-26] MEDS: LACTULOSE SYRUP 20 GM/30 ML CUP PO SCH ×2 (09:58→20:16)
[2017-11-26] MEDS: ENOXAPARIN SODIUM 30 MG/0.3 ML SYRINGE SQ SCH (09:58)
--- NOTE | 2017-11-26 13:30 | HHI.PR ---
Subjective Remarks Patient seen today around 10 AM. Says he is feeling all right. Denies any chest pain or shortness of breath. Denies any nausea or vomiting. No acute issues per nursing Objective Vital Signs Date Time Temp Pulse Resp B/P (MAP) Pulse Ox O2 Delivery O2 Flow Rate FiO2 11/26/17 12:00 98.4 84 18 110/65 (80) 98 11/26/17 08:05 98.5 92 18 104/65 (78) 94 11/26/17 04:00 98.6 64 16 120/76 (91) 97 11/26/17 00:00 98.7 76 16 126/86 (99) 97 11/25/17 20:00 97.0 62 16 96/59 (71) 96 11/25/17 16:00 97.5 72 18 97/63 (74) 98 I/O 11/25/17 11/25/17 11/25/17 11/26/17 11/26/17 11/26/17 06:59 14:59 22:59 06:59 14:59 22:59 Intake Total 900 ml Output Total 0 ml Balance 900 ml Intake Oral 900 ml Stool Total 0 ml # Voids 1 3 # Bowel Movements 1 Objective Remarks GENERAL: patient sitting bed. Appears comfortable. Pleasant and cooperative. No change on exam. SKIN: Warm and dry. HEAD: Normocephalic. EYES: No scleral icterus. No injection or drainage. NECK: Supple, trachea midline. No JVD or lymphadenopathy. CARDIOVASCULAR: Regular rate and rhythm without murmurs, gallops, or rubs. RESPIRATORY: Breath sounds equal bilaterally. No accessory muscle use. GASTROINTESTINAL: Abdomen soft, non-tender, nondistended. MUSCULOSKELETAL: No cyanosis, or edema. BACK: Nontender without obvious deformity. No CVA tenderness. A/P Assessment and Plan 11/26. She seen and examined. No changes. Discussed with nursing and case management and MDR. No acute changes. 11/25. No change in management. Discussed with nursing and case management MDR. 11/24. No change in management. Continue to await SNF placement. Discussed with nursing and case management MDR. //Aggressive behavior, encephalopathy: Patient has had significant improvement in his mental status, likely back to baseline. He was evaluated by psychiatry, and the Avelar act was lifted. Continue Seroquel, sertraline. // Thrombocytopenia: Chronic, at baseline. //Seizure disorder: Continue Depakote, Keppra. Seizure precautions. //PTSD, personality disorder: Appreciate psychiatry recommendations. Continue Seroquel. Trazodone daily at bedtime. //COPD: Respiratory status is at baseline. Currently stable on room air. // Generalized weakness: Patient has chronic debility likely secondary to chronic alcohol abuse. // DVT prophylaxis: Lovenox. //UTI: Urine culture growing E. coli. Status post treatment with Levaquin. //Elevated PSA: Appreciate urology recommendations. // Right wrist pain: Improved. X-ray shows no fracture. Ultrasound is negative. MRI negative. Discharge Planning Discharge to SNF when arrangements are made. Patient is medically cleared for discharge. Case management assisting with discharge planning. Raf Herron MD Nov 26, 2017 13:30
--- NOTE | 2017-11-26 16:14 | HHI.HCPN ---
Reason for visit a. To assist with evaluation and management of symptoms including: Pain b. To assist medical decision maker(s) with: better understanding of current medical conditions; weighing benefits/burdens of medical treatment options; making medical treatment decisions. Subjective/Interval History Follow up for symptom management . Patient sleeping, arousable, denies pain and stated that today he just wants to sleep. Patient not very conversant today. Pain managed with Hydrocodone/acetaminophen 5/325. Last dose administered caramel cutter helper. No recent labwork and imaging. PT signed off on 11/11, patient has been ambulating with a walker in the hallways. Case management continues to assist with placement. . Family/friend interactions No family at bedside. . Advance Directives Living Will: Never completed Health Care Surrogate: Never completed Durable Power of Gang Supervisor: Never completed Advance Directive Specifics Health Care Surrogate(s): Health care Surrogate -Significant other-Anna McadamsGxakwjll-[phone] . Objective Vital Signs Date Time Temp Pulse Resp B/P (MAP) Pulse Ox O2 Delivery O2 Flow Rate FiO2 11/26/17 12:00 98.4 84 18 110/65 (80) 98 11/26/17 08:05 98.5 92 18 104/65 (78) 94 11/26/17 04:00 98.6 64 16 120/76 (91) 97 11/26/17 00:00 98.7 76 16 126/86 (99) 97 11/25/17 20:00 97.0 62 16 96/59 (71) 96 Physical Exam CONSTITUTIONAL/GENERAL: This is an adequately nourished patient, in no apparent distress. Denies pain today. TUBES/LINES/DRAINS: SKIN: No jaundice, rashes, or lesions. Ecchymoses on upper extremities. No wounds seen anteriorly. Skin temperature appropriate. Not diaphoretic. HEAD: Atraumatic. Normocephalic. EYES: Pupils equal and round and reactive. Extraocular motions intact. No scleral icterus. No injection or drainage. Fundi not examined. ENT: Hard of Hearing.Nose without bleeding or purulent drainage. NECK: Trachea midline. Supple, nontender. CARDIOVASCULAR: Regular rate and rhythm without murmurs, gallops, or rubs. No JVD. Peripheral pulses symmetric. RESPIRATORY/CHEST: Symmetric, unlabored respirations. Clear to auscultation. Breath sounds equal bilaterally. No wheezes, rales, or rhonchi. GASTROINTESTINAL: Abdomen soft, non-tender, nondistended. No guarding. Bowel sounds present. GENITOURINARY: Without palpable bladder distension. MUSCULOSKELETAL: Extremities without clubbing, cyanosis, or edema. No joint tenderness or effusion noted. No calf tenderness. No mottling or clubbing. NEUROLOGICAL: Awake, just woke up, some confusion. Motor and sensory grossly within normal limits. Follows commands. Moves all extremities. PSYCHIATRIC: No obvious anxiety/depression. no apparent hallucinations or other psychotic thought process. . Assessment and Plan Disease Oriented Problem List: (1) Alcohol-induced mood disorder (2) PTSD (post-traumatic stress disorder) (3) Bipolar disorder (4) COPD (chronic obstructive pulmonary disease) Symptom Scale: (1) Decreased oral intake 0-10 Scale: Unable to quantify (2) Pain 0-10 Scale: Unable to quantify Comment: Multifactorial. c/o pain to Right shoulder and wrist. Wrist MRI on revealed effusion in the proximal carpal row and in the radiocarpal joint and no osteomyelitis. . Pertinent Non-Medical Issues Psychosocial:Patient was born and raised in [place]. Patient served in the [employer] during the [place] war for 6 years. He moved to [place] in the 1970s. Patient was and once. He has 2 sons whom he states he has not spoken to in about 10 years. Patient stated that the last he heard from them was about 10 years ago and at that time they were in [place], [place]. 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 Important Contacts Health care Surrogate -Significant other-Anna McadamsBftxjldc-[phone] Son-Pardeep Drzdgn-[phone] Son-Deon Heath Marker- Father- Edy Peters Lo-[phone] [place] [facility]- Payee- Dianelys Chambers - [phone] . Prognosis Mr. Valenzuela is a 62-year-old with a past medical history of bipolar disorder, seizure disorder, gout, chronic low back pain, COPD, hypertension, chronic alcoholic pancreatitis, hepatitis B and C, dyslipidemia, and alcoholism. Patient was brought to the ER from an [facility] by EMS on August 28, 2017 to be evaluated for altered mental status, behavioral disturbances and a witnessed fall. Clinical course complicated with decreased oral intake, hypotension, urinary tract infection. . Code Status: No Code Plan PLAN: Legal decision maker: Patient is capable of participating in making his own medical decisions. In the event that he is incapacitated, patient designated his significant other Erika Mcadams to serve as his HCS. Goals: Remain aggressive short of no code. Patient awaiting placement. CODE STATUS: No Code DNR- Community DNR signed SYMPTOMS: * Pain: Multifactorial. Pain can be from bedbound, and other source for pain could be IV. Patient also had complaints of pain to his right wrist. Wrist MRI on 10/05 revealed effusion in the proximal carpal row and in the radiocarpal joint and no osteomyelitis.Patient has Hydrocodone/acetaminophen 5/325. Denies pain today. last hydrocodone dose was given on 11/26/17. Continue to assess patient for pain. * Decreased oral intake. Resolved. Palliative care will continue to follow the patient during hospital course as condition evolves, to assist patient/decision-maker with understanding of their medical conditions, weighing benefits/burdens of treatment options, for clarification of goals of treatment. Additionally will assist with any symptoms of palliative concern Attestation To help prompt me to consider important information that might be impacting today's encounter and assessment, information from prior notes written by myself or my colleagues may have been "brought forward" into today's note. My signature on this note, however, is an attestation that I personally performed the exam, history, and/or decision-making noted today, and, unless otherwise indicated, the interactions with patient, family, and staff as well as the review of records all occurred today. I also attest that the listed assessment and stated plan reflect my best clinical judgment today based on the combination of historical information, prior notes, and today's exam/ interactions. When time spent is documented, it refers only to time spent today by the signer, or if indicated, combined time spent today by collaborating physician/nurse practitioner. Robin Dominguez Nov 26, 2017 16:14
[2017-11-26] MEDS: DIVALPROEX SODIUM E.R. 500 MG TAB PO SCH (20:17)
[2017-11-26] MEDS: QUEtiapine FUMARATE 25 MG TAB PO SCH (20:17)
[2017-11-26] MEDS: traZODone HCL 100 MG TAB PO SCH (20:17)
[2017-11-27] MEDS: ACETAMINOPHEN/HYDROcodone 325 MG/5 MG TAB PO PRN ×3 (00:14→20:39)
[2017-11-27 00:45] VITALS: BP 126/89; PULSE 105; RESP 19; TEMP 98; O2SAT 97
[2017-11-27 03:30] VITALS: BP 120/90; PULSE 110; RESP 19; TEMP 97.3; O2SAT 98
[2017-11-27 08:31] VITALS: BP 113/58; PULSE 66; RESP 20; TEMP 98.4; O2SAT 98
[2017-11-27] MEDS: DOCUSATE SODIUM 50 MG/SENNA 8.6 MG TAB PO SCH ×2 (09:22→20:39)
[2017-11-27] MEDS: SERTRALINE HCL 100 MG TAB PO SCH (09:22)
[2017-11-27] MEDS: MULTIVITAMIN TAB PO SCH (09:22)
[2017-11-27] MEDS: ENOXAPARIN SODIUM 30 MG/0.3 ML SYRINGE SQ SCH (09:22)
[2017-11-27] MEDS: SODIUM CHLORIDE 0.9% FLUSH 10 ML FLUSH IV FLUSH SCH ×2 (09:23→20:38)
[2017-11-27] MEDS: LACTULOSE SYRUP 20 GM/30 ML CUP PO SCH ×2 (09:23→20:37)
[2017-11-27] MEDS: levETIRAcetam 500 MG TAB PO SCH ×2 (09:23→20:38)
[2017-11-27 15:54] VITALS: BP 102/64; PULSE 64; RESP 20; TEMP 99; O2SAT 97
--- NOTE | 2017-11-27 17:19 | HHI.PR ---
Subjective Remarks Patient seen today around noon. Says he is feeling all right. Denies any chest pain or shortness of breath. Objective Vital Signs Date Time Temp Pulse Resp B/P (MAP) Pulse Ox O2 Delivery O2 Flow Rate FiO2 11/27/17 15:54 99.0 64 20 102/64 (77) 97 11/27/17 08:31 98.4 66 20 113/58 (76) 98 11/27/17 03:30 97.3 110 19 120/90 (100) 98 11/27/17 01:28 18 11/27/17 00:45 98.0 105 19 126/89 (101) 97 11/26/17 21:30 97.9 108 18 129/88 (102) 98 I/O 11/26/17 11/26/17 11/26/17 11/27/17 11/27/17 11/27/17 07:00 15:00 23:00 07:00 15:00 23:00 Intake Total 725 ml 1000 ml 660 ml Balance 725 ml 1000 ml 660 ml Intake Oral 725 ml 1000 ml 660 ml # Voids 3 2 # Bowel Movements 1 0 Objective Remarks GENERAL: patient sitting bed. Appears comfortable. Pleasant and cooperative. Again, no change on exam. SKIN: Warm and dry. HEAD: Normocephalic. EYES: No scleral icterus. No injection or drainage. NECK: Supple, trachea midline. No JVD or lymphadenopathy. CARDIOVASCULAR: Regular rate and rhythm without murmurs, gallops, or rubs. RESPIRATORY: Breath sounds equal bilaterally. No accessory muscle use. GASTROINTESTINAL: Abdomen soft, non-tender, nondistended. MUSCULOSKELETAL: No cyanosis, or edema. BACK: Nontender without obvious deformity. No CVA tenderness. A/P Assessment and Plan 11/27. Patient seen and examined. Discussed with nursing and case management at [facility]. No changes. 11/26. She seen and examined. No changes. Discussed with nursing and case management and [facility]. No acute changes. 11/25. No change in management. Discussed with nursing and case management [facility]. 11/24. No change in management. Continue to await SNF placement. Discussed with nursing and case management [facility]. //Aggressive behavior, encephalopathy: Patient has had significant improvement in his mental status, likely back to baseline. He was evaluated by psychiatry, and the Avelar act was lifted. Continue Seroquel, sertraline. // Thrombocytopenia: Chronic, at baseline. //Seizure disorder: Continue Depakote, Keppra. Seizure precautions. //PTSD, personality disorder: Appreciate psychiatry recommendations. Continue Seroquel. Trazodone daily at bedtime. //COPD: Respiratory status is at baseline. Currently stable on room air. // Generalized weakness: Patient has chronic debility likely secondary to chronic alcohol abuse. // DVT prophylaxis: Lovenox. //UTI: Urine culture growing E. coli. Status post treatment with Levaquin. //Elevated PSA: Appreciate urology recommendations. // Right wrist pain: Improved. X-ray shows no fracture. Ultrasound is negative. MRI negative. Discharge Planning Discharge to SNF when arrangements are made. Patient is medically cleared for discharge. Case management assisting with discharge planning. Raf Herron MD Nov 27, 2017 17:19
[2017-11-27] MEDS: traZODone HCL 100 MG TAB PO SCH (20:39)
[2017-11-27] MEDS: DIVALPROEX SODIUM E.R. 500 MG TAB PO SCH (20:39)
[2017-11-27] MEDS: QUEtiapine FUMARATE 25 MG TAB PO SCH (20:39)
[2017-11-27 21:00] VITALS: BP 112/69; PULSE 59; RESP 20; TEMP 97.4; O2SAT 99
[2017-11-28 01:37] VITALS: BP 96/69; PULSE 62; RESP 18; TEMP 97.8
[2017-11-28 05:41] VITALS: BP 91/61; PULSE 61; RESP 18; TEMP 97.9; O2SAT 93
[2017-11-28] MEDS: ACETAMINOPHEN/HYDROcodone 325 MG/5 MG TAB PO PRN ×2 (06:02→16:20)
[2017-11-28] MEDS: DOCUSATE SODIUM 50 MG/SENNA 8.6 MG TAB PO SCH ×2 (07:23→23:58)
[2017-11-28] MEDS: MULTIVITAMIN TAB PO SCH (07:23)
[2017-11-28] MEDS: SERTRALINE HCL 100 MG TAB PO SCH (07:23)
[2017-11-28] MEDS: levETIRAcetam 500 MG TAB PO SCH ×2 (07:23→23:58)
[2017-11-28] MEDS: LACTULOSE SYRUP 20 GM/30 ML CUP PO SCH ×2 (07:24→21:00)
[2017-11-28] MEDS: ENOXAPARIN SODIUM 30 MG/0.3 ML SYRINGE SQ SCH (07:24)
[2017-11-28] MEDS: SODIUM CHLORIDE 0.9% FLUSH 10 ML FLUSH IV FLUSH SCH ×2 (07:24→21:00)
[2017-11-28 07:45] VITALS: BP 88/53; PULSE 63; RESP 20; TEMP 98.6; O2SAT 95
[2017-11-28 12:46] VITALS: BP 105/71; PULSE 95; RESP 20; TEMP 98.5; O2SAT 97
[2017-11-28 16:30] VITALS: BP 101/67; PULSE 56; RESP 20; TEMP 98.8; O2SAT 95
--- NOTE | 2017-11-28 17:33 | HHI.PR ---
Subjective Remarks Patient says he is feeling all right. Denies any chest pain or shortness of breath. Objective Vital Signs Date Time Temp Pulse Resp B/P (MAP) Pulse Ox O2 Delivery O2 Flow Rate FiO2 11/28/17 16:30 98.8 56 20 101/67 (78) 95 11/28/17 12:46 98.5 95 20 105/71 (82) 97 11/28/17 07:45 98.6 63 20 88/53 (65) 95 11/28/17 07:10 18 11/28/17 05:41 97.9 61 18 91/61 (71) 93 11/28/17 01:37 97.8 62 18 96/69 (78) 11/27/17 21:00 97.4 59 20 112/69 (83) 99 I/O 11/27/17 11/27/17 11/27/17 11/28/17 11/28/17 11/28/17 06:59 14:59 22:59 06:59 14:59 22:59 Intake Total 1000 ml 780 ml 720 ml Balance 1000 ml 780 ml 720 ml Intake Oral 1000 ml 780 ml 720 ml # Voids 2 1 # Bowel Movements 0 Objective Remarks GENERAL: patient sitting bed. Appears comfortable. Pleasant and cooperative. no change on exam. SKIN: Warm and dry. HEAD: Normocephalic. EYES: No scleral icterus. No injection or drainage. NECK: Supple, trachea midline. No JVD. CARDIOVASCULAR: Regular rate and rhythm without murmurs, gallops, or rubs. RESPIRATORY: Breath sounds equal bilaterally. No accessory muscle use. GASTROINTESTINAL: Abdomen soft, non-tender, nondistended. MUSCULOSKELETAL: No cyanosis, or edema. BACK: Nontender without obvious deformity. No CVA tenderness. A/P Assessment and Plan 11/28. Patient seen and examined again. Discussed with nursing. No changes in management. //Aggressive behavior, encephalopathy: Patient has had significant improvement in his mental status, likely back to baseline. He was evaluated by psychiatry, and the Avelar act was lifted. Continue Seroquel, sertraline. // Thrombocytopenia: Chronic, at baseline. //Seizure disorder: Continue Depakote, Keppra. Seizure precautions. //PTSD, personality disorder: Appreciate psychiatry recommendations. Continue Seroquel. Trazodone daily at bedtime. //COPD: Respiratory status is at baseline. Currently stable on room air. // Generalized weakness: Patient has chronic debility likely secondary to chronic alcohol abuse. // DVT prophylaxis: Lovenox. //UTI: Urine culture growing E. coli. Status post treatment with Levaquin. //Elevated PSA: Appreciate urology recommendations. // Right wrist pain: Improved. X-ray shows no fracture. Ultrasound is negative. MRI negative. Discharge Planning Discharge to SNF when arrangements are made. Patient is medically cleared for discharge. Case management assisting with discharge planning. Raf Herron MD Nov 28, 2017 17:33
[2017-11-28 20:00] VITALS: BP 107/65; PULSE 61; RESP 18; TEMP 98; O2SAT 94
[2017-11-28] MEDS: traZODone HCL 100 MG TAB PO SCH (23:58)
[2017-11-28] MEDS: DIVALPROEX SODIUM E.R. 500 MG TAB PO SCH (23:59)
[2017-11-28] MEDS: QUEtiapine FUMARATE 25 MG TAB PO SCH (23:59)
[2017-11-29 01:00] VITALS: BP 108/62; PULSE 63; RESP 18; TEMP 98.6; O2SAT 97
[2017-11-29 05:37] VITALS: BP 133/57; PULSE 53; RESP 18; TEMP 97.8; O2SAT 96
[2017-11-29 08:00] VITALS: BP 95/52; PULSE 61; RESP 16; TEMP 97.8; O2SAT 94
[2017-11-29] MEDS: DOCUSATE SODIUM 50 MG/SENNA 8.6 MG TAB PO SCH ×2 (09:55→20:41)
[2017-11-29] MEDS: SODIUM CHLORIDE 0.9% FLUSH 10 ML FLUSH IV FLUSH SCH ×2 (09:55→20:44)
[2017-11-29] MEDS: SERTRALINE HCL 100 MG TAB PO SCH (09:58)
[2017-11-29] MEDS: MULTIVITAMIN TAB PO SCH (09:58)
[2017-11-29] MEDS: levETIRAcetam 500 MG TAB PO SCH ×2 (09:59→20:41)
[2017-11-29] MEDS: ACETAMINOPHEN/HYDROcodone 325 MG/5 MG TAB PO PRN (09:59)
[2017-11-29] MEDS: ENOXAPARIN SODIUM 30 MG/0.3 ML SYRINGE SQ SCH (09:59)
[2017-11-29] MEDS: LACTULOSE SYRUP 20 GM/30 ML CUP PO SCH ×2 (09:59→21:00)
[2017-11-29 10:31] LABS: AUTOMATED NEUTROPHIL # 1.7 TH/MM3 (1.8-7.7); BASOPHIL % 0.6 % (0.0-2.0); EOSINOPHIL # 0.1 TH/MM3 (0-0.4); EOSINOPHIL % 1.8 % (0.0-4.0); HEMATOCRIT 36.2 % (39.0-51.0); HEMOGLOBIN 12.5 GM/DL (13.0-17.0); LYMPH % 48.2 % (9.0-44.0); LYMPHOCYTE # 2.1 TH/MM3 (1.0-4.8); MEAN CORPUSCULAR HEMOGLOBIN 29.7 PG (27.0-34.0); MEAN CORPUSCULAR HGB CONC 34.5 % (32.0-36.0); MEAN PLATELET VOLUME 9.1 FL (7.0-11.0); MONO % 9.7 % (0.0-8.0); MONOCYTE # 0.4 TH/MM3 (0-0.9); NEUT % 39.7 % (16.0-70.0); PLATELET COUNT 174 TH/MM3 (150-450); RED BLOOD COUNT 4.21 MIL/MM3 (4.50-5.90); RED CELL DISTRIBUTION WIDTH 14.7 % (11.6-17.2); WHITE BLOOD COUNT 4.3 TH/MM3 (4.0-11.0)
[2017-11-29 10:55] LABS: BICARBONATE 27.4 MEQ/L (21.0-32.0)
[2017-11-29 10:57] LABS: PHOSPHORUS 3.4 MG/DL (2.5-4.9)
[2017-11-29 11:05] LABS: ALBUMIN 2.9 GM/DL (3.4-5.0); CALCIUM 9.3 MG/DL (8.5-10.1); CREATININE 0.91 MG/DL (0.60-1.30); MAGNESIUM 1.6 MG/DL (1.5-2.5)
[2017-11-29 12:00] VITALS: BP 104/66; PULSE 65; RESP 20; TEMP 98.4; O2SAT 96
--- NOTE | 2017-11-29 15:53 | HHI.PR ---
Subjective Remarks No acute changes per nursing. Patient feeling all right. Denies any chest pain or shortness of breath. Denies any nausea or vomiting. Objective Vital Signs Date Time Temp Pulse Resp B/P (MAP) Pulse Ox O2 Delivery O2 Flow Rate FiO2 11/29/17 12:00 98.4 65 20 104/66 (79) 96 11/29/17 08:00 97.8 61 16 95/52 (66) 94 11/29/17 05:37 97.8 53 18 133/57 (82) 96 11/29/17 01:00 98.6 63 18 108/62 (77) 97 11/28/17 20:00 98.0 61 18 107/65 (79) 94 11/28/17 16:30 98.8 56 20 101/67 (78) 95 I/O 11/28/17 11/28/17 11/28/17 11/29/17 11/29/17 11/29/17 07:00 15:00 23:00 07:00 15:00 23:00 Intake Total 720 ml Balance 720 ml Intake Oral 720 ml Result Diagram: 11/29/1716 11/29/17 0816 Objective Remarks GENERAL: patient sitting bed. Appears comfortable. Pleasant and cooperative. Again, no change on exam. SKIN: Warm and dry. HEAD: Normocephalic. EYES: No scleral icterus. No injection or drainage. NECK: Supple, trachea midline. No JVD. CARDIOVASCULAR: Regular rate and rhythm without murmurs, gallops, or rubs. RESPIRATORY: Breath sounds equal bilaterally. No accessory muscle use. GASTROINTESTINAL: Abdomen soft, non-tender, nondistended. MUSCULOSKELETAL: No cyanosis, or edema. BACK: Nontender without obvious deformity. No CVA tenderness. A/P Assessment and Plan 11/29. Patient seen and examined. Discussed with nursing again.. No changes in management. //Aggressive behavior, encephalopathy: Patient has had significant improvement in his mental status, likely back to baseline. He was evaluated by psychiatry, and the Avelar act was lifted. Continue Seroquel, sertraline. // Thrombocytopenia: Chronic, at baseline. //Seizure disorder: Continue Depakote, Keppra. Seizure precautions. //PTSD, personality disorder: Appreciate psychiatry recommendations. Continue Seroquel. Trazodone daily at bedtime. //COPD: Respiratory status is at baseline. Currently stable on room air. // Generalized weakness: Patient has chronic debility likely secondary to chronic alcohol abuse. // DVT prophylaxis: Lovenox. //UTI: Urine culture growing E. coli. Status post treatment with Levaquin. //Elevated PSA: Appreciate urology recommendations. // Right wrist pain: Improved. X-ray shows no fracture. Ultrasound is negative. MRI negative. Discharge Planning Discharge to SNF when arrangements are made. Patient is medically cleared for discharge. Case management assisting with discharge planning. Raf Herron MD Nov 29, 2017 15:53
[2017-11-29 16:00] VITALS: BP 111/70; PULSE 70; RESP 18; TEMP 98.4; O2SAT 99
[2017-11-29 20:00] VITALS: BP 97/63; PULSE 62; RESP 18; TEMP 98.1; O2SAT 96
[2017-11-29] MEDS: QUEtiapine FUMARATE 25 MG TAB PO SCH (20:40)
[2017-11-29] MEDS: traZODone HCL 100 MG TAB PO SCH (20:41)
[2017-11-29] MEDS: DIVALPROEX SODIUM E.R. 500 MG TAB PO SCH (20:43)
[2017-11-30] VITALS: BP_SYST 86; BP_SYST 90; BP_DIAS 54; BP_DIAS 60; PULSE 53; RESP 18; TEMP 97.2; O2SAT 95
[2017-11-30 00:45] VITALS: BP 100/70
[2017-11-30 08:00] VITALS: BP 111/69; PULSE 59; RESP 21; TEMP 98; O2SAT 97
[2017-11-30] MEDS: MULTIVITAMIN TAB PO SCH (08:43)
[2017-11-30] MEDS: ENOXAPARIN SODIUM 30 MG/0.3 ML SYRINGE SQ SCH (08:43)
[2017-11-30] MEDS: LACTULOSE SYRUP 20 GM/30 ML CUP PO SCH ×2 (08:43→21:24)
[2017-11-30] MEDS: SERTRALINE HCL 100 MG TAB PO SCH (08:43)
[2017-11-30] MEDS: levETIRAcetam 500 MG TAB PO SCH ×2 (08:43→21:24)
[2017-11-30] MEDS: ACETAMINOPHEN/HYDROcodone 325 MG/5 MG TAB PO PRN (08:43)
[2017-11-30] MEDS: DOCUSATE SODIUM 50 MG/SENNA 8.6 MG TAB PO SCH ×2 (08:44→21:25)
[2017-11-30] MEDS: SODIUM CHLORIDE 0.9% FLUSH 10 ML FLUSH IV FLUSH SCH ×2 (08:44→21:25)
--- NOTE | 2017-11-30 08:49 | HHI.PR ---
Subjective Remarks Follow up for aggressive behavior, Seizure disorder. Patient is currently resting well. No acute concerns. Objective Vitals Vital Signs Date Time Temp Pulse Resp B/P (MAP) Pulse Ox O2 Delivery O2 Flow Rate FiO2 11/30/17 00:45 100/70 (80) 11/30/17 00:00 97.2 53 18 86/54 (65) 95 90/60 (70) 11/29/17 20:00 98.1 62 18 97/63 (74) 96 11/29/17 16:00 98.4 70 18 111/70 (84) 99 11/29/17 12:00 98.4 65 20 104/66 (79) 96 I/O 11/29/17 11/29/17 11/29/17 11/30/17 11/30/17 11/30/17 07:00 15:00 23:00 07:00 15:00 23:00 # Voids 1 Result Diagram: 11/29/17 0816 11/29/17 0816 Imaging Last Impressions Wrist MRI 10/05/17 0000 Signed Impressions: Service Date/Time: Thursday, October 05, 2017 12:00 - CONCLUSION: 1. No evidence of osteomyelitis. 2. Effusion in the proximal carpal row and in the radiocarpal joint. Fermin Duggan MD Upper Extremity Ultrasound 10/03/17 0000 Signed Impressions: Service Date/Time: Monday, October 02, 2017 14:57 - CONCLUSION: 1. Negative for deep venous thrombosis right upper extremity. Fermin Duggan MD Wrist X-Ray 10/02/17 0000 Signed Impressions: Service Date/Time: Monday, October 02, 2017 10:18 - CONCLUSION: Unremarkable exam. No significant change compared to the prior study. Wade Butler MD Renal Ultrasound 09/24/17 0000 Signed Impressions: Service Date/Time: Sunday, September 24, 2017 09:53 - CONCLUSION: Negative for stone or obstruction. Silvestre Iniguez MD FACR Head CT 08/28/17 0000 Signed Impressions: Service Date/Time: Monday, August 28, 2017 06:05 - CONCLUSION: 1. No acute intracranial hemorrhage. 2. Stable diffuse bilateral cortical atrophy. 3. No significant change compared to the prior exam. Wade Butler MD Cervical Spine CT 08/28/17 0000 Signed Impressions: Service Date/Time: Monday, August 28, 2017 06:08 - CONCLUSION: 1. No acute bony fracture. 2. Stable diffuse primary degenerative changes involving the cervical spine. 3. No new or significant changes. Wade Butler MD Objective Remarks GENERAL: Alert, NAD. SKIN: Warm and dry. HEAD: Normocephalic. EYES: No scleral icterus. No injection or drainage. NECK: Supple, trachea midline. No JVD or lymphadenopathy. CARDIOVASCULAR: Regular rate and rhythm without murmurs, gallops, or rubs. RESPIRATORY: Breath sounds equal bilaterally. No accessory muscle use. GASTROINTESTINAL: Abdomen soft, non-tender, nondistended. MUSCULOSKELETAL: No cyanosis, or edema. BACK: Nontender without obvious deformity. No CVA tenderness. Procedures None A/P Problem List: (1) Encephalopathy ICD Code: G93.40 - Encephalopathy Status: Acute (2) Alcohol-induced mood disorder ICD Code: F10.94 - Alcohol use, unspecified with alcohol-induced mood disorder Status: Acute (3) Debility ICD Code: R53.81 - Other malaise (4) COPD (chronic obstructive pulmonary disease) ICD Code: J44.9 - COPD (chronic obstructive pulmonary disease) Status: Chronic (5) PTSD (post-traumatic stress disorder) ICD Code: F43.10 - Post-traumatic stress disorder, unspecified Assessment and Plan 62-year-old male patient of an [facility] who was sent from his [facility] for aggressive behavior and altered mental status. The patient's medical history significant for bipolar disorder, seizure disorder, gout, chronic back pain, COPD, hypertension, hep B and C, and dyslipidemia. In the ER the patient was combative and attempted to urinate on himself. He received multiple doses of Benadryl, Haldol, and Ativan. The patient was admitted and treated for encephalopathy and behavioral disturbances. Psychiatry was consulted who lifted the Avelar act and increased the patient's Seroquel. His mental status much improved. Patient has significant debility likely secondary to chronic alcohol abuse and needs further rehabilitation to get stronger. Currently awaiting placement. Aggressive behavior, encephalopathy: Patient has had significant improvement in his mental status, likely back to baseline. He was evaluated by psychiatry, and the Avelar act was lifted. Continue Seroquel, sertraline. Thrombocytopenia: Chronic, at baseline. Seizure disorder: Continue Depakote, Keppra. Seizure precautions. PTSD, personality disorder: Appreciate psychiatry recommendations. Continue Seroquel. Trazodone daily at bedtime. COPD: Respiratory status is at baseline. Currently stable on room air. Generalized weakness: Patient has chronic debility likely secondary to chronic alcohol abuse. UTI: Urine culture growing E. coli. Status post treatment with Levaquin. Elevated PSA: Appreciate urology recommendations. Right wrist pain: Improved. X-ray shows no fracture. Ultrasound is negative. MRI negative. DVT prophylaxis: Lovenox. 11/30/2017 -no acute change in management. Christos Menjivar DO Nov 30, 2017 08:49
[2017-11-30 12:00] VITALS: BP 124/72; PULSE 55; RESP 18; TEMP 98.4; O2SAT 96
[2017-11-30 16:00] VITALS: BP 120/68; PULSE 63; RESP 18; TEMP 97.7; O2SAT 95
[2017-11-30 20:40] VITALS: BP 128/80; PULSE 106; RESP 17; TEMP 97.9; O2SAT 97
[2017-11-30] MEDS: traZODone HCL 100 MG TAB PO SCH (21:24)
[2017-11-30] MEDS: QUEtiapine FUMARATE 25 MG TAB PO SCH (21:24)
[2017-11-30] MEDS: DIVALPROEX SODIUM E.R. 500 MG TAB PO SCH (21:24)
[2017-12-01 00:07] VITALS: BP 125/89; PULSE 104; RESP 18; TEMP 98; O2SAT 95
[2017-12-01 04:45] VITALS: BP 130/76; PULSE 101; RESP 18; TEMP 97.8; O2SAT 96
[2017-12-01 08:39] VITALS: BP_SYST 87; BP_SYST 96; BP_DIAS 58; BP_DIAS 69; PULSE 57; RESP 20; TEMP 98.6; O2SAT 95
[2017-12-01] MEDS: SODIUM CHLORIDE 0.9% FLUSH 10 ML FLUSH IV FLUSH SCH ×2 (09:00→20:05)
[2017-12-01] MEDS: LACTULOSE SYRUP 20 GM/30 ML CUP PO SCH ×2 (10:25→20:05)
[2017-12-01] MEDS: SERTRALINE HCL 100 MG TAB PO SCH (10:25)
[2017-12-01] MEDS: MULTIVITAMIN TAB PO SCH (10:26)
[2017-12-01] MEDS: levETIRAcetam 500 MG TAB PO SCH ×2 (10:26→20:04)
[2017-12-01] MEDS: ENOXAPARIN SODIUM 30 MG/0.3 ML SYRINGE SQ SCH (10:26)
[2017-12-01] MEDS: DOCUSATE SODIUM 50 MG/SENNA 8.6 MG TAB PO SCH ×2 (10:26→20:05)
--- NOTE | 2017-12-01 11:17 | HHI.PR ---
Subjective Remarks Follow up for aggressive behavior, Seizure disorder. Patient is resting in bed. No acute concerns. Objective Vitals Vital Signs Date Time Temp Pulse Resp B/P (MAP) Pulse Ox O2 Delivery O2 Flow Rate FiO2 12/01/17 08:39 98.6 57 20 96/69 (78) 95 87/58 (68) 12/01/17 04:45 97.8 101 18 130/76 (94) 96 12/01/17 00:07 98.0 104 18 125/89 (101) 95 11/30/17 20:40 97.9 106 17 128/80 (96) 97 11/30/17 16:00 97.7 63 18 120/68 (85) 95 11/30/17 12:00 98.4 55 18 124/72 (89) 96 I/O 11/30/17 11/30/17 11/30/17 12/01/17 12/01/17 12/01/17 07:00 15:00 23:00 07:00 15:00 23:00 Intake Total 600 ml 900 ml Balance 600 ml 900 ml Intake Oral 600 ml 900 ml # Voids 1 0 1 1 # Bowel Movements 1 0 0 Result Diagram: 11/29/17 0816 11/29/17 0816 Objective Remarks GENERAL: Alert, NAD. SKIN: Warm and dry. HEAD: Normocephalic. EYES: No scleral icterus. No injection or drainage. NECK: Supple, trachea midline. No JVD or lymphadenopathy. CARDIOVASCULAR: Regular rate and rhythm without murmurs, gallops, or rubs. RESPIRATORY: Breath sounds equal bilaterally. No accessory muscle use. GASTROINTESTINAL: Abdomen soft, non-tender, nondistended. MUSCULOSKELETAL: No cyanosis, or edema. BACK: Nontender without obvious deformity. No CVA tenderness. Procedures None A/P Problem List: (1) Encephalopathy ICD Code: G93.40 - Encephalopathy Status: Acute (2) Alcohol-induced mood disorder ICD Code: F10.94 - Alcohol use, unspecified with alcohol-induced mood disorder Status: Acute (3) Debility ICD Code: R53.81 - Other malaise (4) COPD (chronic obstructive pulmonary disease) ICD Code: J44.9 - COPD (chronic obstructive pulmonary disease) Status: Chronic (5) PTSD (post-traumatic stress disorder) ICD Code: F43.10 - Post-traumatic stress disorder, unspecified Assessment and Plan 62-year-old male patient of an [facility] who was sent from his [facility] for aggressive behavior and altered mental status. The patient's medical history significant for bipolar disorder, seizure disorder, gout, chronic back pain, COPD, hypertension, hep B and C, and dyslipidemia. In the ER the patient was combative and attempted to urinate on himself. He received multiple doses of Benadryl, Haldol, and Ativan. The patient was admitted and treated for encephalopathy and behavioral disturbances. Psychiatry was consulted who lifted the Avelar act and increased the patient's Seroquel. His mental status much improved. Patient has significant debility likely secondary to chronic alcohol abuse and needs further rehabilitation to get stronger. Currently awaiting placement. Aggressive behavior, encephalopathy: Patient has had significant improvement in his mental status, likely back to baseline. He was evaluated by psychiatry, and the Avelar act was lifted. Continue Seroquel, sertraline. Thrombocytopenia: Chronic, at baseline. Seizure disorder: Continue Depakote, Keppra. Seizure precautions. PTSD, personality disorder: Appreciate psychiatry recommendations. Continue Seroquel. Trazodone daily at bedtime. COPD: Respiratory status is at baseline. Currently stable on room air. Generalized weakness: Patient has chronic debility likely secondary to chronic alcohol abuse. UTI: Urine culture growing E. coli. Status post treatment with Levaquin. Elevated PSA: Appreciate urology recommendations. Right wrist pain: Improved. X-ray shows no fracture. Ultrasound is negative. MRI negative. DVT prophylaxis: Lovenox. 12/01/2017 -no acute change in management. Christos Menjivar DO Dec 01, 2017 11:17 am
[2017-12-01 12:06] VITALS: BP 105/67; PULSE 63; RESP 20; TEMP 98.4; O2SAT 95
[2017-12-01 15:56] VITALS: BP 106/63; PULSE 63; RESP 20; TEMP 98; O2SAT 95
[2017-12-01 20:00] VITALS: BP 103/64; PULSE 66; RESP 19; TEMP 98.5; O2SAT 93
[2017-12-01] MEDS: ACETAMINOPHEN/HYDROcodone 325 MG/5 MG TAB PO PRN (20:05)
[2017-12-01] MEDS: DIVALPROEX SODIUM E.R. 500 MG TAB PO SCH (20:05)
[2017-12-01] MEDS: QUEtiapine FUMARATE 25 MG TAB PO SCH (20:05)
[2017-12-01] MEDS: traZODone HCL 100 MG TAB PO SCH (20:05)
[2017-12-02] VITALS: BP 104/73; PULSE 55; RESP 18; TEMP 97.8; O2SAT 96
[2017-12-02 06:36] VITALS: BP 92/51; PULSE 65; RESP 18; TEMP 97.7; O2SAT 98
[2017-12-02 08:06] VITALS: BP_SYST 85; BP_SYST 97; BP_DIAS 50; BP_DIAS 66; PULSE 56; RESP 18; TEMP 97.9; O2SAT 94
[2017-12-02] MEDS: SODIUM CHLORIDE 0.9% FLUSH 10 ML FLUSH IV FLUSH SCH (09:00)
[2017-12-02] MEDS: LACTULOSE SYRUP 20 GM/30 ML CUP PO SCH (10:12)
[2017-12-02] MEDS: ENOXAPARIN SODIUM 30 MG/0.3 ML SYRINGE SQ SCH (10:12)
[2017-12-02] MEDS: DOCUSATE SODIUM 50 MG/SENNA 8.6 MG TAB PO SCH (10:13)
[2017-12-02] MEDS: levETIRAcetam 500 MG TAB PO SCH (10:13)
[2017-12-02] MEDS: MULTIVITAMIN TAB PO SCH (10:13)
[2017-12-02] MEDS: SERTRALINE HCL 100 MG TAB PO SCH (10:13)
[2017-12-02] MEDS ORDERED: HYDR-3516 PO (11:03)
[2017-12-02] MEDS ORDERED: LEVE500 PO (11:03)
--- NOTE | 2017-12-02 11:05 | HHI.DS ---
Discharge Summary Admission Date Aug 28, 2017 at 4:36 pm Discharge Date: Dec 02, 2017 Admitting Diagnosis hypokalemia/hyperammonemia/altered mental status/BA (1) Encephalopathy ICD Code: G93.40 - Encephalopathy Status: Acute (2) Alcohol-induced mood disorder ICD Code: F10.94 - Alcohol use, unspecified with alcohol-induced mood disorder Status: Acute (3) Debility ICD Code: R53.81 - Other malaise (4) COPD (chronic obstructive pulmonary disease) ICD Code: J44.9 - COPD (chronic obstructive pulmonary disease) Status: Chronic (5) PTSD (post-traumatic stress disorder) ICD Code: F43.10 - Post-traumatic stress disorder, unspecified Procedures None Brief History - From Admission History of present illness from the admitting physician 62-year-old male with a past medical history significant for bipolar disorder, seizure disorder, gout, chronic low back pain, COPD, hypertension, chronic alcoholic pancreatitis, hepatitis B and C, dyslipidemia and a history of alcohol abuse was brought to the emergency department by EMS for evaluation of altered mental status, behavioral disturbances and witnessed fall. Patient reportedly was aggressive and combative and his [facility] and fell, hitting his head. In the emergency department he was aggressive and erratic attempting to urinate on staff. He was given multiple doses of Benadryl, Haldol and Ativan. The ED attempted to discharge the patient back to [facility] who reported that they would not accept him back secondary to his aggressive behavior. They also stated that the patient was witnessed to have said that he was going to continue to "throw himself on the floor on purpose." At the time of her interview, the patient refuses to answer any questions. He is lying in bed and will only yell "I do not want any medication." Vital signs on presentation: Temperature 98.9, pulse 66, respirations 18, BP 151/97, pulse ox 94% on room air. Patient has multiple metabolic derangements including a potassium of 2.4 and an ammonia of 61. Head CT negative for acute process. CBC/BMP: 11/29/17 0816 11/29/17 0816 Imaging Last Impressions Wrist MRI 10/05/17 0000 Signed Impressions: Service Date/Time: Thursday, October 05, 2017 12:00 - CONCLUSION: 1. No evidence of osteomyelitis. 2. Effusion in the proximal carpal row and in the radiocarpal joint. Fermin Duggan MD Upper Extremity Ultrasound 10/03/17 0000 Signed Impressions: Service Date/Time: Monday, October 02, 2017 14:57 - CONCLUSION: 1. Negative for deep venous thrombosis right upper extremity. Fermin Duggan MD Wrist X-Ray 10/02/17 0000 Signed Impressions: Service Date/Time: Monday, October 02, 2017 10:18 - CONCLUSION: Unremarkable exam. No significant change compared to the prior study. Wade Butler MD Renal Ultrasound 09/24/17 0000 Signed Impressions: Service Date/Time: Sunday, September 24, 2017 09:53 - CONCLUSION: Negative for stone or obstruction. Silvestre Iniguez MD FACR Head CT 08/28/17 0000 Signed Impressions: Service Date/Time: Monday, August 28, 2017 06:05 - CONCLUSION: 1. No acute intracranial hemorrhage. 2. Stable diffuse bilateral cortical atrophy. 3. No significant change compared to the prior exam. Wade Butler MD Cervical Spine CT 08/28/17 0000 Signed Impressions: Service Date/Time: Monday, August 28, 2017 06:08 - CONCLUSION: 1. No acute bony fracture. 2. Stable diffuse primary degenerative changes involving the cervical spine. 3. No new or significant changes. Wade Butler MD PE at Discharge General: No acute distress. Heart: Regular rate and rhythm. No murmur. Lungs: Clear to auscultation bilaterally. No wheezes, rales, or rhonchi. Breathing is nonlabored. Abdomen: Soft, nontender, nondistended. Extremities: No lower extremity edema. Psych: Alert. Somewhat confused. Pt update on day of discharge Patient is doing well. No acute concerns. Tolerating diet well. Hospital Course 62-year-old male patient of an [facility] who was sent from his [facility] for aggressive behavior and altered mental status. The patient's medical history significant for bipolar disorder, seizure disorder, gout, chronic back pain, COPD, hypertension, hep B and C, and dyslipidemia. In the ER the patient was combative and attempted to urinate on himself. He received multiple doses of Benadryl, Haldol, and Ativan. The patient was admitted and treated for encephalopathy and behavioral disturbances. Psychiatry was consulted who lifted the Avelar act and increased the patient's Seroquel. His mental status much improved. Patient has significant debility likely secondary to chronic alcohol abuse and needs further rehabilitation to get stronger. Aggressive behavior, encephalopathy: Patient has had significant improvement in his mental status, likely back to baseline. He was evaluated by psychiatry, and the Avelar act was lifted. Continue Seroquel, sertraline. Thrombocytopenia: Chronic, at baseline. Seizure disorder: Continue Depakote, Keppra. Seizure precautions. PTSD, personality disorder: Appreciate psychiatry recommendations. Continue Seroquel. Trazodone daily at bedtime. COPD: Respiratory status is at baseline. Currently stable on room air. Generalized weakness: Patient has chronic debility likely secondary to chronic alcohol abuse. UTI: Urine culture growing E. coli. Status post treatment with Levaquin. Elevated PSA: Appreciate urology recommendations. Right wrist pain: Improved. X-ray shows no fracture. Ultrasound is negative. MRI negative. DVT prophylaxis: Lovenox. Patient was accepted at a nursing facility. He is being discharged today 2017. Pt Condition on Discharge: Fair Discharge Disposition: Discharge to SNF Discharge Time: <= 30 minutes Discharge Instructions DIET: Follow Instructions for: As Tolerated, No Restrictions Activities you can perform: Regular-No Restrictions Other Activity Instructions: Use assistive device and help her PT recommendations. New Medications: Multiple Vitamin (Multi-Vitamin Daily) 1 Tab Tab 1 TAB PO DAILY for Nutritional Supplement, #30 TAB 0 Refills Hydrocodone/Acetaminophen (Hydrocodone-Acetamin 5-325 mg) 5 Mg-325 Mg Tablet 1 TAB PO Q6H PRN for PAIN SCALE 5 TO 10, #15 TAB Levetiracetam (Keppra) 500 Mg Tab 1500 MG PO Q12HR for Seizure Control, #60 TAB Prednisone (21) 10 mg tab Dose Pack (Prednisone (21) 10 mg tab Dose Pack) 10 Mg Pack 10 MG PO DIRECTED for Inflammation, #1 DSPK 0 Refills [Lactulose Liq] () 30 ML SYRP 30 ML PO BID for 30 Days Changed Medications: Quetiapine (Quetiapine) 25 Mg Tab 75 MG PO HS, #90 TAB 0 Refills (Changed from: 25 MG; 30) Continued Medications: Calcium Carbonate-Cholecalciferol (Calcium + D3) 600-200 Mg-Unit Tab 1 TAB PO BID, TAB Divalproex ER (Depakote ER) 500 Mg Bassam 1000 MG PO HS for Seizure Control, #30 TAB Hydroxyzine HCl (Hydroxyzine HCl) 50 Mg Tab 50 MG PO Q6HR PRN for ANXIETY, TAB 0 Refills Lactobacillus Acidophilus (Lactobacillus Acidophilus) 1 Tab Tab 1 TAB PO TIDAC for Nutritional Supplement, #30 TAB 0 Refills Sertraline (Sertraline) 100 Mg Tab 200 MG PO DAILY, #30 TAB 0 Refills Trazodone (Trazodone) 100 Mg Tablet 100 MG PO 2 po hs for health, #60 TAB 0 Refills Discontinued Medications: Fludrocortisone (Fludrocortisone) 0.1 Mg Tab 0.1 MG PO DAILY for health, #30 TAB 0 Refills Levetiracetam (Keppra) 500 Mg Tab 1500 MG PO Q12HR for Seizure Control, #62 TAB Christos Menjivar DO Dec 02, 2017 11:05 am
[2017-12-02 11:41] VITALS: BP 95/52; PULSE 60; RESP 20; TEMP 98.4; O2SAT 93
[2017-12-02 16:36] VITALS: BP 96/55; PULSE 64; RESP 18; TEMP 98.3; O2SAT 93
== END 2017-12-02 17:52 | DRG 642 ==
LOC: NEPE 23:47 → NEDA 08-28 16:36 → N05B 08-28 20:55
PROVIDERS: ADMIT Hospitalist; ATTEND Hospitalist
DX: E72.20 Disorder of urea cycle metabolism, unspecified (principal); G93.40 Encephalopathy, unspecified; F05 Delirium due to known physiological condition; D69.6 Thrombocytopenia, unspecified; I95.9 Hypotension, unspecified; B19.10 Unspecified viral hepatitis B without hepatic coma; K74.60 Unspecified cirrhosis of liver; J44.1 Chronic obstructive pulmonary disease with (acute) exacerbation; K86.0 Alcohol-induced chronic pancreatitis; F10.24 Alcohol dependence with alcohol-induced mood disorder; N39.0 Urinary tract infection, site not specified; I10 Essential (primary) hypertension; E87.6 Hypokalemia; F31.9 Bipolar disorder, unspecified; E78.5 Hyperlipidemia, unspecified; M54.5 Low back pain; G89.29 Other chronic pain; G40.909 Epilepsy, unspecified, not intractable, without status epilepticus; B19.20 Unspecified viral hepatitis C without hepatic coma; B96.20 Unspecified Escherichia coli [E. coli] as the cause of diseases classified elsewhere; R31.9 Hematuria, unspecified; F43.10 Post-traumatic stress disorder, unspecified; R35.1 Nocturia; F17.210 Nicotine dependence, cigarettes, uncomplicated; M25.531 Pain in right wrist; R97.20 Elevated prostate specific antigen [PSA]; H91.90 Unspecified hearing loss, unspecified ear; Z66 Do not resuscitate; F60.9 Personality disorder, unspecified; M25.431 Effusion, right wrist; M25.511 Pain in right shoulder; F41.9 Anxiety disorder, unspecified; R53.81 Other malaise; Z75.1 Person awaiting admission to adequate facility elsewhere; Z78.1 Physical restraint status; Z91.81 History of falling; Z86.73 Personal history of transient ischemic attack (TIA), and cerebral infarction without residual deficits
CPT/HCPCS: 70450; 72125; 73110; 73221; 76775; 76937; 80048; 80053; 80069; 80164; 81001; 82140; 82948; 83605; 83735; 84132; 84443; 85007; 85025; 85027; 87040; 87077; 87086; 87186; 93005; 93971; 94640; 96372; G0103; J1200; J1630; J1644; J1650; J1956; J2060; J3480; J7030; J7040; J7512; J7613

== ENCOUNTER 2018-02-22 20:40 | Inpatient (IN) ==
--- NOTE | 2018-02-22 21:24 | ED ---
HPI General Chief complaint: Psychiatric Symptoms Stated complaint: Psych Eval/Med 1 Time Seen by Provider: 02/22/18 21:21 History of Present Illness HPI narrative: 62-year-old male presents under Avelar act initiated by a physician. He is a resident of assisted-living facility. He was upset because he feels that someone stole $1700 as well as his sandwiches. He was threatening people. He reports that he is still very upset. Symptoms are moderate, duration 2 days, aggravated by missing money and possessions with no alleviating factors. No other complaints. Related Data Home Medications Medication Instructions Recorded Confirmed Ativan 1 mg PO Q8HR PRN 02/22/18 02/22/18 Dulcolax (bisacodyl) 1 supp [place] DAILY PRN 02/22/18 02/22/18 Lactobacillus acidophilus 100 mg PO AC 02/22/18 02/22/18 [Acidophilus] Milk of Magnesia 30 cc PO DAILY PRN 02/22/18 02/23/18 Multiple Vitamins 1 tab PO DAILY 02/22/18 02/23/18 acetaminophen [Tylenol] 650 mg PO Q6H PRN 02/22/18 02/22/18 calcium carbonate [Calcium 600] 600 mg PO BID 02/22/18 02/22/18 divalproex [Depakote] 500 mg PO HS 02/22/18 02/22/18 hydrocodone-acetaminophen [[place]] 1 tab PO Q6H PRN 02/22/18 02/22/18 hydroxyzine pamoate 50 mg PO TID PRN 02/22/18 02/22/18 lactulose 30 g PO BID 02/22/18 02/22/18 levetiracetam [Keppra] 250 mg PO Q12H 02/22/18 02/22/18 quetiapine [Seroquel] 600 mg PO HS 02/22/18 02/22/18 sertraline 200 mg PO DAILY 02/22/18 02/22/18 Allergies Allergy/AdvReac Type Severity Reaction Status Date / Time No Known Allergies Allergy Uncoded 11/13/16 20:22 Review of Systems ROS Unobtainable All other systems reviewed negative except as stated in HPI PMFSH Medical History Medical History Cirrhosis (Acute) PTSD (post-traumatic stress disorder) (Acute) Pancreatitis, chronic (Acute) Seizure (Acute) Surgical History Surgical History No history of previous surgery (Acute) Social History Social History Substance History: No History of Abuse Smoking Status: Smoker, status unknown Tobacco Type: Cigarettes How Often Do You Have a Drink Containing Alcohol: Monthly or less Recent Out of Country Travel within the Last 8 Weeks: No Exam Narrative Exam Narrative: GENERAL: Well-developed well-nourished male in no acute distress SKIN: Warm and dry. HEAD: Atraumatic. Normocephalic. EYES: Pupils equal and round. No scleral icterus. No injection or drainage. ENT: No nasal bleeding or discharge. Mucous membranes pink and moist. NECK: Trachea midline. No JVD. CARDIOVASCULAR: Regular rate and rhythm. No murmur appreciated. RESPIRATORY: No accessory muscle use. Clear to auscultation. Breath sounds equal bilaterally. GASTROINTESTINAL: Abdomen soft, non-tender, nondistended. Hepatic and splenic margins not palpable. MUSCULOSKELETAL: No obvious deformities. No clubbing. No cyanosis. No edema. NEUROLOGICAL: Awake and alert. No obvious cranial nerve deficits. Motor grossly within normal limits. Normal speech. PSYCHIATRIC: Agitated. Insight and judgment appear limited. Course Initial Documented Vital Signs Temperature 98.4 F 02/22/18 21:04 Respiratory Rate 18 02/22/18 21:04 Pulse Oximetry 96 02/22/18 21:04 Last Documented Vital Signs Temperature 98.4 F 02/22/18 21:04 Pulse Rate 88 02/23/18 01:44 Respiratory Rate 18 02/23/18 01:44 Blood Pressure 151/82 H 02/23/18 01:44 Pulse Oximetry 96 02/22/18 21:04 Medical Decision Making [facility] Narrative Medical decision making narrative: Mental health screening discussed with the patient. Psychiatric screen ordered. The patient became increasingly combative and agitated and required chemical sedation and physical restraints. His lab work is been reviewed. He is medically cleared for psychiatric disposition. Differential Diagnosis Differential Diagnosis: Adjustment reaction, acute psychosis, major depressive disorder, depressive disorder not otherwise specified, substance-induced mood disorder Lab Data Result diagrams: 02/22/18 22:00 02/23/18 01:17 Lab Results 02/22/18 02/23/18 Range/Units 22:00 01:17 WBC 7.0 (4.0-11.0) th/mm3 RBC 4.90 (4.50-5.90) mil/mm3 Hgb 14.3 (13.0-17.0) gm/dL Hct 43.0 (39.0-51.0) % MCV 87.7 (80.0-100.0) fL MCH 29.1 (27.0-34.0) pg MCHC 33.2 (32.0-36.0) % RDW 14.5 (11.6-17.2) % Plt Count 119 L (150-450) th/mm3 MPV 8.0 (7.0-11.0) fL Neut % (Auto) 50.0 (16.0-70.0) % Lymph % (Auto) 40.7 (9.0-44.0) % [place] % (Auto) 7.9 (0.0-8.0) % Eos % (Auto) 0.9 (0.0-4.0) % Baso % (Auto) 0.5 (0.0-2.0) % Neut # (Auto) 3.5 (1.8-7.7) th/mm3 Lymph # (Auto) 2.8 (1.0-4.8) th/mm3 [place] # (Auto) 0.5 (0.0-0.9) th/mm3 Eos # (Auto) 0.1 (0.0-0.4) th/mm3 Baso # (Auto) 0.0 (0.0-0.2) th/mm3 WBC Differential . Differential Comment Auto diff final Sodium 142 (136-145) meq/L Potassium 3.9 (3.5-5.1) meq/L Chloride 105 (98-107) meq/L Carbon Dioxide 32.0 (21.0-32.0) meq/L Anion Gap 5 (5-15) meq/L BUN 27 H (7-18) mg/dL Creatinine 0.97 (0.60-1.30) mg/dL Estimated GFR 78 L (>89) mL/min Random Glucose 77 (74-106) mg/dL Calcium 9.0 (8.5-10.1) mg/dL Total Bilirubin 0.3 (0.2-1.0) mg/dL AST 36 (15-37) U/L ALT 32 (12-78) U/L Alkaline Phosphatase 61 (45-117) U/L Total Protein 8.6 H (6.4-8.2) g/dL Albumin 3.8 (3.4-5.0) g/dL TSH 2.310 (0.358-3.740) uIU/mL Valproic Acid 70 (50-100) mcg/mL Serum Alcohol Less than 3 (0-5) mg/dL Discharge Plan Discharge Disposition Patient Disposition: 30 Still Patient Discharge Condition Condition: Stable Discharge Details Diagnosis: Medical clearance for psychiatric admission Physicians Team ED Provider: Dania Jimenez ED Midlevel Provider: Cong Del Angel Primary Care Provider: [facility],Physician 's Rxs /Orders / Referrals /Forms Prescriptions: No Action divalproex [Depakote] 500 mg Tablet,Delayed Release (Dr/Ec) 500 mg PO HS RF: 0 calcium carbonate [Calcium 600] 600 mg calcium (1,500 mg) Tablet 600 mg PO BID RF: 0 hydrocodone-acetaminophen [[place]] 5-325 mg Tablet 1 tab PO Q6H PRN (Reason: Pain) RF: 0 sertraline 100 mg Tablet 200 mg PO DAILY RF: 0 hydroxyzine pamoate 50 mg Capsule 50 mg PO TID PRN (Reason: Anxiety) RF: 0 Lactobacillus acidophilus [Acidophilus] Capsule 100 mg PO AC RF: 0 acetaminophen [Tylenol] 325 mg Capsule 650 mg PO Q6H PRN (Reason: Pain, Mild) RF: 0 lactulose 20 gram/30 mL Solution 30 g PO BID RF: 0 Milk of Magnesia 30 cc PO DAILY PRN (Reason: Constipation) RF: 0 Multiple Vitamins tablet 1 tab PO DAILY RF: 0 Ativan 1 mg PO Q8HR PRN (Reason: Anxiety) RF: 0 quetiapine [Seroquel] 300 mg Tablet 600 mg PO HS RF: 0 levetiracetam [Keppra] 250 mg Tablet 250 mg PO Q12H RF: 0 Dulcolax (bisacodyl) 1 supp [place] DAILY PRN (Reason: Constipation) RF: 0 Discharge Interventions Interventions: Vital Signs Last Done: 02/23/18 01:44 Status ED Status: Medically Cleared
[2018-02-22 22:11] LABS: Baso % (Auto) 0.5 % (0.0-2.0); Eos # (Auto) 0.1 th/mm3 (0.0-0.4); Eos % (Auto) 0.9 % (0.0-4.0); Hemoglobin 14.3 gm/dL (13.0-17.0); Lymph # (Auto) 2.8 th/mm3 (1.0-4.8); Lymph % (Auto) 40.7 % (9.0-44.0); Mean Corpuscular HGB Conc 33.2 % (32.0-36.0); Mean Corpuscular Hemoglobin 29.1 pg (27.0-34.0); Mean Corpuscular Volume 87.7 fL (80.0-100.0); Mono # (Auto) 0.5 th/mm3 (0.0-0.9); Mono % (Auto) 7.9 % (0.0-8.0); Neut # (Auto) 3.5 th/mm3 (1.8-7.7); Platelet Count 119 th/mm3 (150-450); Red Cell Distribution Width 14.5 % (11.6-17.2)
[2018-02-23 01:53] LABS: Alanine Aminotransferase 32 U/L (12-78); Albumin 3.8 g/dL (3.4-5.0); Anion Gap 5 meq/L (5-15); Aspartate Aminotransferase 36 U/L (15-37); Blood Urea Nitrogen 27 mg/dL (7-18); Chloride 105 meq/L (98-107); Glomerular Filtration Rate 78 mL/min (>89); Glucose,Random 77 mg/dL (74-106); Potassium 3.9 meq/L (3.5-5.1); Sodium 142 meq/L (136-145)
[2018-02-23 02:03] LABS: Alkaline Phosphatase 61 U/L (45-117); Total Protein 8.6 g/dL (6.4-8.2)
[2018-02-23 02:19] LABS: Valproic Acid 70 mcg/mL (50-100)
[2018-02-23 04:54] LABS: Amphetamine Screen,Urine Neg (Neg); Barbiturate Screen,Urine Neg (Neg); Cannabinoid Screen,Urine Neg (Neg); Cocaine Screen,Urine Neg (Neg)
[2018-02-23 04:58] LABS: Opiate Screen,Urine Neg (Neg)
[2018-02-23] MEDS ORDERED: LORazepam 1 MG Tablet PO PRN (06:12)
[2018-02-23] MEDS ORDERED: Aluminum/Magnesium/Simethacone Susp 30 ML UDC PO PRN ×2 (06:12→14:32)
[2018-02-23] MEDS ORDERED: Bisacodyl 10 MG Supp RECTAL PRN (14:32)
[2018-02-23] MEDS ORDERED: DULCOLAX RECTAL PRN (14:39)
[2018-02-23] MEDS ORDERED: MAGNESIUM HYDROXIDE PO PRN (14:39)
--- NOTE | 2018-02-23 14:58 | P.HPPSY ---
Provisional Diagnosis Admission Date: February 23, 2018 04:25 [place] I.: PTSD, major depressive disorder recurrent severe with psychosis Competence Certification of Person's Competence To Provide Express and Informed Consent I have personally examined Pardeep Peters, a person being served at [facility] on, February 23, 2018 1444. Express and informed consent means consent voluntarily given in writing, by a competent person, after sufficient explanation and disclosure of the subject matter involved to enable the person to make a knowing and willful decision without any element of force, fraud, deceit, duress, or other form of constraint or coercion. This person is 18 years of age or older, is not now known to be incompetent to consent to treatment with a guardian advocate, and does not have a health care surrogate or proxy currently making medical treatment decisions. I have found this person to be one of the following: [] Competent to provide express and informed consent, as defined above, for voluntary admission to this facility and is competent to provide express and informed consent for treatment. He/she has the consistent capacity to make well reasoned, willful, and knowing decisions concerning his or her medical or mental health treatment. The person fully and consistently understands the purpose of the admission for examination/placement and is fully capable of personally exercising all rights assured [place] [] Incompetent to provide express and informed consent to voluntary admission, and this is incompetent to provide express and informed consent to treatment. The person must be transferred to involuntary status and a petition for a guardian advocate filed with the Circuit Court. [xxx] Refusing to provide express and informed consent to voluntary admission but is competent to provide express and informed consent for treatment. The person must be discharged or transferred to involuntary status. Form shall be completed within 24 hours of a person's arrival at the receiving facility and filed in the clinical record of each person: 1. Admitted on a voluntary basis 2. Permitted to provide express and informed consent to his/her own treatment 3. Allowed to transfer from involuntary to voluntary status 4. Prior to permitting a person to consent to his or her own treatment after having been previously found incompetent to consent to treatment. History of Present Illness Capacity: Has capacity History of Present Illness: Patient is a 62-year-old white male who comes here under Avelar act by a illegible signature from 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 Review of our EMR shows multiple prior visits with this gentleman. Patient seen screen in the ED medically cleared for here. Patient seen in the dayroom he is an [employer] with history of PTSD he acknowledges continued nightmares and flashbacks. He is also somewhat confused saying his memory is not as good as it used to be. There is some confusion as to where his last [facility] residency was he complains of his funds being miss use. When the people have been stealing his sandwiches. However he is able to show some focus with me. He acknowledges seeing service in [place]. Having bad dreams about that and memories about it. He does see a psychiatrist here in [facility] and is prescribed medication for this he also has a history of seizure disorder for which she is receiving Keppra. He is quite vague about any other past psychiatric history family history or medical issues in any event at this time patient does meet criteria for further inpatient psychiatric hospitalization observation and assessment. I will do first opinion request second opinion I feel he does have capacity at this time to sign for his medications we will continue medications per the med reconciliation including Seroquel and Keppra hope this be short stay and we can make some sense out of placement issues with this plan - Inpatient Certification I certify that the inpatient services were ordered in accordance with Medicare regulations governing the order. This includes certification that hospital inpatient services are reasonable and necessary and in the case of services not specified as inpatient-only under 42 CFR 419.22(n), that they are appropriately provided as inpatient services in accordance to with the 2-midnight benchmark under 43 CFR 412.3(e) I certify that inpatient psychiatric hospital services are medically necessary. Evaluation and treatment and/or diagnostic testing are expected to improve the patient's condition. The patient needs on a daily basis, active treatment furnished directly by or requiring the supervision of inpatient psychiatric facility personnel. Estimated Total Length of Stay (Days): 5 Plans for Post Hospital Care: [facility] Review of Systems All other systems reviewed negative except as stated in HPI PMFSH - History History Provided By: Patient, Medical Record - Medical / Surgical Hx Neg / Unobtainable Medical Problems Denied: Unable to Obtain Surgical History: Unable to Obtain - Medical History Medical History: Medical History (Last Updated 02/23/18 @ 01:33 by Melisa Preciado) Cirrhosis PTSD (post-traumatic stress disorder) Pancreatitis, chronic Seizure - Surgical History Surgical History: Surgical History (Last Updated 02/23/18 @ 01:33 by Melisa Preciado) No history of previous surgery - Tobacco History Second Hand Smoke Exposure: Yes Tobacco Use In Past 30 Days: Yes Smoking Status: Current every day smoker Tobacco Type: Cigarettes - Alcohol History How Often Do You Have a Drink Containing Alcohol: Never - Substance Use History Substance History: Past History - Substance Use Type Crack/Cocaine Status: Sustained Remission Reason for Use: Calm Down, Feels Good, Socialization Comment: patient has past history of substance use with alcohol, marijuana, opiates, cocaine benzodiazpams - Travel History Recent Travel in the [place] Within the Last 8 Weeks: No Recent Travel Out of the Country Within the Last 8 Weeks: No - Immunization History Tetanus Immunization: Unsure Hx Influenza Vaccine This Season: Yes Quality Measures - Psychiatric History 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 trauma history: Patient [employer] has seen combat history PTSD Violence risk to others in the last 6 months: Patient angry irritable threatening towards staff and people at the [facility] Violence risk to self in the last 6 months: Low - Substance Abuse History Drug or alcohol use in the past 12 months: Patient denies - Patient Strengths Patient's strengths (minimum of 2): Patient verbal able access healthcare Medications and Allergies Active Medications: Active Medications Acetaminophen (Tylenol) 650 mg PO Q4H PRN PRN Reason: Pain 1-5 or Temp >101F Al Hydrox/Mg Hydrox/Simethicone (Mag-Al Plus Susp Liq) 30 ml PO Q6H PRN PRN Reason: DYSPEPSIA Al Hydrox/Mg Hydrox/Simethicone (Mag-Al Plus Susp Liq) 30 ml PO Q6H PRN PRN Reason: DYSPEPSIA Al Hydroxide/Mg Hydroxide (Milk Of Magnesia Liq) 30 ml PO Q12H PRN PRN Reason: Mild Constipation Al Hydroxide/Mg Hydroxide (Milk Of Magnesia Liq) 30 ml PO Q12H PRN PRN Reason: Mild Constipation Bisacodyl (Dulcolax Supp) 10 mg RECTAL DAILY PRN PRN Reason: SEVERE CONSITIPATION Diphenhydramine HCl (Benadryl) 50 mg PO HS PRN PRN Reason: INSOMNIA Divalproex Sodium (Depakote Dr) 500 mg PO HS [facility] Hydroxyzine HCl (Atarax) 50 mg PO Q6H PRN PRN Reason: ANXIETY Hydroxyzine Pamoate (Vistaril) 50 mg PO TID PRN PRN Reason: Anxiety Lactulose (Lactulose Liq) 30 ml PO DAILY PRN PRN Reason: SEVERE CONSITIPATION Lactulose (Lactulose Liq) ml PO BID [facility] Levetiracetam (Keppra) 250 mg PO Q12H [place] Lorazepam (Ativan Inj) 1 mg IM Q6H PRN PRN Reason: MODERATE TO SEVERE ANXIETY Lorazepam (Ativan) 1 mg PO Q6H PRN PRN Reason: MODERATE TO SEVERE ANXIETY Nicotine (Habitrol 21 Mg Patch.24 Hr) 1 patch T-DERMAL DAILY [facility] Last Admin: 02/23/18 09:02 Dose: 1 patch Non-Formulary Medication (Dulcolax (Bisacodyl)) 1 supp [place] DAILY PRN PRN Reason: Constipation Non-Formulary Medication (Lactobacillus Acidophilus [Acidophilus]) 100 mg PO AC [facility] Non-Formulary Medication (Milk Of Magnesia) 30 cc PO DAILY PRN PRN Reason: Constipation Non-Formulary Medication (Multiple Vitamins) 1 tab PO DAILY [facility] Non-Formulary Medication (Calcium Carbonate [Calcium 600]) 600 mg PO BID [facility] Quetiapine Fumarate (Seroquel) 600 mg PO HS [facility] Senna/Docusate Sodium (Leanne-Colace) 1 tab PO BID [facility] Sennosides (Senokot) 17.2 mg PO Q12H PRN PRN Reason: Moderate Constipation Sertraline HCl (Zoloft) 200 mg PO DAILY [facility] Allergies Allergy/AdvReac Type Severity Reaction Status Date / Time No Known Allergies Allergy Uncoded 11/13/16 20:22 Home Medications Medication Instructions Recorded Confirmed Type Ativan 1 mg PO Q8HR PRN 02/22/18 02/22/18 History Dulcolax (bisacodyl) 1 supp [place] DAILY PRN 02/22/18 02/22/18 History Lactobacillus acidophilus 100 mg PO AC 02/22/18 02/22/18 History [Acidophilus] Milk of Magnesia 30 cc PO DAILY PRN 02/22/18 02/23/18 History Multiple Vitamins 1 tab PO DAILY 02/22/18 02/23/18 History acetaminophen [Tylenol] 650 mg PO Q6H PRN 02/22/18 02/22/18 History calcium carbonate [Calcium 600] 600 mg PO BID 02/22/18 02/22/18 History divalproex [Depakote] 500 mg PO HS 02/22/18 02/22/18 History hydrocodone-acetaminophen [[place]] 1 tab PO Q6H PRN 02/22/18 02/22/18 History hydroxyzine pamoate 50 mg PO TID PRN 02/22/18 02/22/18 History lactulose 30 g PO BID 02/22/18 02/22/18 History levetiracetam [Keppra] 250 mg PO Q12H 02/22/18 02/22/18 History quetiapine [Seroquel] 600 mg PO HS 02/22/18 02/22/18 History sertraline 200 mg PO DAILY 02/22/18 02/22/18 History Results - Labs CBC & Chem 7: 02/22/18 22:00 02/23/18 01:17 Labs: Laboratory Results - last 24 hr 02/22/18 02/23/18 02/23/18 22:00 01:17 04:15 WBC 7.0 RBC 4.90 Hgb 14.3 Hct 43.0 MCV 87.7 MCH 29.1 MCHC 33.2 RDW 14.5 Plt Count 119 L MPV 8.0 Neut % (Auto) 50.0 Lymph % (Auto) 40.7 [place] % (Auto) 7.9 Eos % (Auto) 0.9 Baso % (Auto) 0.5 Neut # (Auto) 3.5 Lymph # (Auto) 2.8 [place] # (Auto) 0.5 Eos # (Auto) 0.1 Baso # (Auto) 0.0 WBC Differential . Differential Comment Auto diff final Sodium 142 Potassium 3.9 Chloride 105 Carbon Dioxide 32.0 Anion Gap 5 BUN 27 H Creatinine 0.97 Estimated GFR 78 L Random Glucose 77 Calcium 9.0 Total Bilirubin 0.3 AST 36 ALT 32 Alkaline Phosphatase 61 Total Protein 8.6 H Albumin 3.8 TSH 2.310 Urine Opiates Screen Neg Ur Barbiturates Screen Neg Valproic Acid 70 Ur Amphetamines Screen Neg U Benzodiazepines Scrn Neg Urine Cocaine Screen Neg U Cannabinoids Screen Neg Serum Alcohol Less than 3 Exam Vital signs: Vital Signs 02/22/18 21:04 02/23/18 01:44 02/23/18 06:00 Temperature 98.4 F 96.6 F L Pulse Rate 88 63 Respiratory Rate 18 18 18 Blood Pressure 151/82 H 103/61 Pulse Oximetry 96 02/23/18 08:00 Temperature Pulse Rate Respiratory Rate 16 Blood Pressure Pulse Oximetry Intake & Output 02/22/18 02/23/18 02/23/18 18:59 06:59 18:59 Weight 85 kg Other: Weight On Admission 85 kg - Constitutional Comments: Patient seen sitting in chair in day room he is in no acute distress, he is in no respiratory distress, no complaints of chest pain, no complaints of abdominal pain, patient moving all 4 extremities low he states he does have difficulty with what he calls a "lock" armed with his left upper extremity Mental Status Examination Appearance: Disheveled Consciousness: Alert Orientation: Person, Place, Date/Time, Situation Motor Activity: Normal gait Speech: Pressured, Rapid, Hesitant Language: Adequate Fund of Knowledge: Inadequate Attention and Concentration: Easily distracted Memory: Impaired Mood: Angry, Irritable Affect: Other (Increased range and intensity) Thought Process & Associations: Disorganized Thought Content: Bizarre thinking Hallucination Type: None (Denies) Delusion Type: Paranoid Suicidal Ideation: No Suicidal Plan: No Suicidal Intention: No Homicidal Ideation: No Homicidal Plan: No Homicidal Intention: No Insight: Poor Judgment: Poor Assessment and Plan - Assessment (1) PTSD (post-traumatic stress disorder) Code(s): F43.10 - Post-traumatic stress disorder, unspecified Status: Acute (2) Major depressive disorder, recurrent, severe w/o psychotic behavior Code(s): F33.2 - Major depressive disorder, recurrent severe without psychotic features Status: Acute - Plan Plan: Estimated LOS: [] days At this time patient meets criteria for involuntary psychiatric hospitalization of the Avelar act I will do first opinion request second opinion they feel he does have capacity. We will the hospitalist consult will us. We will do PT and OT referral also hopeless be fairly short stay and he can return to his [facility] Justification for Continued Inpatient Stay: At this time patient would decompensate a place to a lower level of care Discharge Planning: Possible return to his [facility]
[2018-02-23] MEDS: levETIRAcetam 250 MG Tablet PO SCH (15:48)
[2018-02-23] MEDS: Lactobacillus Acidophilus/L. Spores Tablet PO SCH (16:44)
[2018-02-23] MEDS: Divalproex 500 MG DR Tablet PO SCH (20:29)
[2018-02-23] MEDS: Senna/Docusate Sodium 8.6/50 MG Tablet PO SCH (20:30)
[2018-02-24] MEDS: Lactobacillus Acidophilus/L. Spores Tablet PO SCH ×3 (08:07→22:23)
[2018-02-24] MEDS: levETIRAcetam 250 MG Tablet PO SCH ×3 (08:07→22:24)
[2018-02-24] MEDS: Senna/Docusate Sodium 8.6/50 MG Tablet PO SCH ×2 (08:07→21:15)
[2018-02-24] MEDS: Sertraline 100 MG Tablet PO SCH (08:07)
--- NOTE | 2018-02-24 10:18 | P.PNPSY ---
Subjective Remarks: Patient seen in his room with nurse Uzma and counselor Daisy, chart reviewed , patient compliant medication. Patient calm cooperative pleasant and friendly he does appear to have some difficulty with his hearing sounds his responses are at times humorous due to misinterpretation of my statements he is overall goal oriented he acknowledges voices persisted but they are not intrusive and nonthreatening. For now continue treatment no change states we will go back to his prior placement if that is available when she is stabilized Review of Systems All other systems reviewed negative except as stated in HPI Mental Status Examination Appearance: Disheveled Consciousness: Alert Orientation: Person, Place, Date/Time, Situation Motor Activity: Normal gait Speech: Pressured, Rapid, Hesitant (Decreasing improving) Language: Adequate Fund of Knowledge: Inadequate (Improving) Attention and Concentration: Easily distracted Memory: Impaired Mood: Angry (Calmer), Irritable Affect: Other (Increased range and intensity) Thought Process & Associations: Disorganized Thought Content: Bizarre thinking (Improving) Hallucination Type: None (Denies) Delusion Type: Paranoid Suicidal Ideation: No Suicidal Plan: No Suicidal Intention: No Homicidal Ideation: No Homicidal Plan: No Homicidal Intention: No Insight: Poor Judgment: Poor Assessment and Plan - Assessment (1) PTSD (post-traumatic stress disorder) Code(s): F43.10 - Post-traumatic stress disorder, unspecified Status: Acute (2) Major depressive disorder, recurrent, severe w/o psychotic behavior Code(s): F33.2 - Major depressive disorder, recurrent severe without psychotic features Status: Acute - Plan Plan: Patient's psychosis is improving his range and intensity his affect is improving. The voices are persist. Now continue treatment no change he states he is feeling much better and did not sleep well last night Justification for Continued Inpatient Stay: At this time patient would decompensate a place to the lower level of care Discharge Planning: Possibly to return to her prior HAL[facility]AY
[2018-02-24 11:56] LABS: Calcium 9.6 mg/dL (8.5-10.1); Carbon Dioxide 24.8 meq/L (21.0-32.0); Potassium 3.7 meq/L (3.5-5.1)
[2018-02-24 11:59] LABS: Chol/HDL Ratio 5.14 Ratio; HDL Cholesterol 31.7 mg/dL (40.0-60.0)
--- NOTE | 2018-02-24 14:19 | P.CONPSY ---
Provisional Diagnosis Admission Date: February 23, 2018 04:25 Sharon I.: PTSD, major depressive disorder recurrent severe with psychosis History of Present Illness Service: Psychiatry [facility] Provider[facility] Family Provider: [facility] History of Present Illness: Patient is a 62-year-old white male who comes here under Avelar act by a illegible signature from 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 Review of our EMR shows multiple prior visits with this gentleman. Patient seen screen in the ED medically cleared for here. Patient seen in the dayroom he is an [employer] with history of PTSD he acknowledges continued nightmares and flashbacks. He is also somewhat confused saying his memory is not as good as it used to be. There is some confusion as to where his last [facility] residency was he complains of his funds being miss use. When the people have been stealing his sandwiches. However he is able to show some focus with me. He acknowledges seeing service in [place]. Having bad dreams about that and memories about it. He does see a psychiatrist here in the [facility] and is prescribed medication for this he also has a history of seizure disorder for which she is receiving Keppra. He is quite vague about any other past psychiatric history family history or medical issues in any event at this time patient does meet criteria for further inpatient psychiatric hospitalization observation and assessment. I will do first opinion request second opinion I feel he does have capacity at this time to sign for his medications we will continue medications per the med reconciliation including Seroquel and Keppra hope this be short stay and we can make some sense out of placement issues with this plan The patient is a 59 years old man, with psychiatric history of bipolar disorder, PTSD, previous psychiatric hospitalizations, no my service , suicide attempts, admitted in psychiatry under Avelar act due to suicidal ideation. Consulted to me for second opinion. On psychiatric evaluation the patient is calm, cooperative. The patient reports feeling much better today. The patient states that for the first time in many years he was able to have a good sleep last night. He reports having nightmares, flashbacks, symptoms of depression, but at this moment he is under control. He has ambivalent suicidal ideation, no specific plan at the moment. Is fully oriented 3. PMF - History History Provided By: Patient, Medical Record - Medical / Surgical Hx Neg / Unobtainable Medical Problems Denied: Unable to Obtain - Medical History Medical History: Medical History (Last Reviewed 02/24/18 @ 07:42 by Delfino Zhao) Cirrhosis PTSD (post-traumatic stress disorder) Pancreatitis, chronic Seizure - Surgical History Surgical History: Surgical History (Last Reviewed 02/24/18 @ 07:42 by Delfino Zhao) No history of previous surgery - Tobacco History Second Hand Smoke Exposure: Yes Tobacco Use In Past 30 Days: Yes Smoking Status: Current every day smoker Tobacco Type: Cigarettes - Alcohol History How Often Do You Have a Drink Containing Alcohol: Never - Substance Use History Substance History: Past History - Substance Use Type Crack/Cocaine Status: Sustained Remission Reason for Use: Calm Down, Feels Good, Socialization Comment: patient has past history of substance use with alcohol, marijuana, opiates, cocaine benzodiazpams - Travel History Recent Travel in the [facility] Within the Last 8 Weeks: No Recent Travel Out of the Country Within the Last 8 Weeks: No - Immunization History Tetanus Immunization: Unsure Hx Influenza Vaccine This Season: Yes Medications and Allergies Active Medications: Active Medications Acetaminophen (Tylenol) 650 mg PO Q4H PRN PRN Reason: Pain 1-5 or Temp >101F Al Hydrox/Mg Hydrox/Simethicone (Mag-Al Plus Susp Liq) 30 ml PO Q6H PRN PRN Reason: DYSPEPSIA Al Hydroxide/Mg Hydroxide (Milk Of Magnesia Liq) 30 ml PO Q12H PRN PRN Reason: Mild Constipation Bisacodyl (Dulcolax Supp) 10 mg RECTAL DAILY PRN PRN Reason: SEVERE CONSITIPATION Diphenhydramine HCl (Benadryl) 50 mg PO HS PRN PRN Reason: INSOMNIA Last Admin: 02/23/18 20:32 Dose: 50 mg Divalproex Sodium (Depakote Dr) 500 mg PO HS [facility] Last Admin: 02/23/18 20:29 Dose: 500 mg Hydroxyzine HCl (Atarax) 50 mg PO Q6H PRN PRN Reason: ANXIETY Lactobacillus Acidophilus (Lactinex) 1 tab PO AC [facility] Last Admin: 02/24/18 11:46 Dose: 1 tab Lactulose (Lactulose Liq) 30 ml PO DAILY PRN PRN Reason: SEVERE CONSITIPATION Lactulose (Lactulose Liq) 30 ml PO BID [facility] Last Admin: 02/24/18 08:07 Dose: 30 ml Levetiracetam (Keppra) 250 mg PO Q12HR [facility] Last Admin: 02/24/18 08:07 Dose: 250 mg Lorazepam (Ativan Inj) 1 mg IM Q6H PRN PRN Reason: MODERATE TO SEVERE ANXIETY Lorazepam (Ativan) 1 mg PO Q6H PRN PRN Reason: MODERATE TO SEVERE ANXIETY Multivitamins (Theragran) 1 tab PO DAILY [facility] Last Admin: 02/24/18 08:07 Dose: 1 tab Nicotine (Habitrol 21 Mg Patch.24 Hr) 1 patch T-DERMAL DAILY [facility] Last Admin: 02/24/18 08:07 Dose: 1 patch Quetiapine Fumarate (Seroquel) 600 mg PO [facility] Last Admin: 02/23/18 20:28 Dose: 600 mg Senna/Docusate Sodium (Leanne-Colace) 1 tab PO BID [facility] Last Admin: 02/24/18 08:07 Dose: Not Given Sennosides (Senokot) 17.2 mg PO Q12H PRN PRN Reason: Moderate Constipation Sertraline HCl (Zoloft) 200 mg PO DAILY [facility] Last Admin: 02/24/18 08:07 Dose: 200 mg Allergies Allergy/AdvReac Type Severity Reaction Status Date / Time No Known Allergies Allergy Uncoded 11/13/16 20:22 Home Medications Medication Instructions Recorded Confirmed Type Ativan 1 mg PO Q8HR PRN 02/22/18 02/22/18 History Dulcolax (bisacodyl) 1 supp [place] DAILY PRN 02/22/18 02/22/18 History Lactobacillus acidophilus 100 mg PO AC 02/22/18 02/22/18 History [Acidophilus] Milk of Magnesia 30 cc PO DAILY PRN 02/22/18 02/23/18 History Multiple Vitamins 1 tab PO DAILY 02/22/18 02/23/18 History acetaminophen [Tylenol] 650 mg PO Q6H PRN 02/22/18 02/22/18 History calcium carbonate [Calcium 600] 600 mg PO BID 02/22/18 02/22/18 History divalproex [Depakote] 500 mg PO HS 02/22/18 02/22/18 History hydrocodone-acetaminophen [C[place]] 1 tab PO Q6H PRN 02/22/18 02/22/18 History hydroxyzine pamoate 50 mg PO TID PRN 02/22/18 02/22/18 History lactulose 30 g PO BID 02/22/18 02/22/18 History levetiracetam [Keppra] 250 mg PO Q12H 02/22/18 02/22/18 History quetiapine [Seroquel] 600 mg PO HS 02/22/18 02/22/18 History sertraline 200 mg PO DAILY 02/22/18 02/22/18 History Exam Vital signs: Vital Signs 02/23/18 18:13 02/24/18 06:00 Temperature 98.6 F 98.9 F Pulse Rate 73 59 L Respiratory Rate 20 15 Blood Pressure 119/73 100/52 L Pulse Oximetry 95 93 L Mental Status Examination Appearance: Disheveled Consciousness: Alert Orientation: Person, Place, Date/Time, Situation Motor Activity: Normal gait Speech: Pressured, Rapid, Hesitant (Decreasing improving) Language: Adequate Fund of Knowledge: Inadequate (Improving) Attention and Concentration: Easily distracted Memory: Impaired Mood: Angry (Calmer), Irritable Affect: Other (Increased range and intensity) Thought Process & Associations: Disorganized Thought Content: Bizarre thinking (Improving) Hallucination Type: None (Denies) Delusion Type: Paranoid Suicidal Ideation: No Suicidal Plan: No Suicidal Intention: No Homicidal Ideation: No Homicidal Plan: No Homicidal Intention: No Insight: Poor Judgment: Poor Assessment and Plan - Assessment (1) PTSD (post-traumatic stress disorder) Code(s): F43.10 - Post-traumatic stress disorder, unspecified Status: Acute (2) Major depressive disorder, recurrent, severe w/o psychotic behavior Code(s): F33.2 - Major depressive disorder, recurrent severe without psychotic features Status: Acute - Plan Plan: Patient's psychosis is improving his range and intensity his affect is improving. The voices are persist. Now continue treatment no change he states he is feeling much better and did not sleep well last night Patient was seen today for psychiatric evaluation for second opinion. The recommendation was review, case was discussed with staff and Dr. Pina personally, I agree and concur with his assessment and plan. Justification for Continued Inpatient Stay: Continue for admission.
[2018-02-24 16:56] LABS: Hemoglobin A1c 4.7 % (4.3-6.0)
--- NOTE | 2018-02-24 17:28 | P.CON ---
History of Present Illness Service: 02/24/18 Consult date: 02/23/18 Requesting Physician: Eder Pina Reason for Consult: HTN and history of seizures Primary Care Provider: [facility] Family Provider: [facility] Chief Complaint: Avelar act History of Present Illness: 62-year-old male with a past medical history significant for bipolar disorder, seizure disorder, gout, chronic back pain, COPD, HTN, HLD, chronic alcoholic pancreatitis, hepatitis B and hepatitis C who resides at assisted living facility who became upset claiming someone had stolen $1700 as well as a sandwich from him. Patient began threatening people, very upset, subsequently Valentino acted and brought to [place] for further psychiatric evaluation. Patient was seen and examined in the emergency department and medically cleared. [facility] consulted for management of hypertension and history of seizure disorder. Of note patient had a prolonged hospitalization from 08/28-2010 where he was treated for encephalopathy and aggressive behavior, seizure disorder, PTSD, and UTI. Patient is seen resting in bed with staff members present taking vital signs. Prior to me entering the room patient is quite chatty with food quality technician and sitter at bedside. I entered the room and introduced myself and patient is completely withdrawn, does not make eye contact, and is not verbal with me. Patient also does not follow any commands when instructed. I leave the room and returned about 5 minutes later and once again introduced myself inpatient response this time. Patient is alert and oriented to self, place, and current president. He denies any fevers, chills, nausea, vomiting, shortness of breath , cough or chest pain. Patient complains of headache, also complains of left hip pain and repeatedly states "Dr. Castellano, Dr. Castellano". When asked further if patient has had recent surgery to hip and I inquire further about his pain he does not respond. I offer patient Tylenol and he states "oh M&Ms". I spoke with nursing staff who also reports similar events today, questionable behavioral. Review of Systems All other systems reviewed negative except as stated in HPI PMFSH - History History Provided By: Patient, Medical Record - Medical / Surgical Hx Neg / Unobtainable Medical Problems Denied: Unable to Obtain - Medical History Medical History: Medical History (Last Reviewed 02/24/18 @ 07:42 by Delfino Zhao) Cirrhosis PTSD (post-traumatic stress disorder) Pancreatitis, chronic Seizure - Surgical History Surgical History: Surgical History (Last Reviewed 02/24/18 @ 07:42 by Delfino Zhao) No history of previous surgery - Tobacco History Second Hand Smoke Exposure: Yes Tobacco Use In Past 30 Days: Yes Smoking Status: Current every day smoker Tobacco Type: Cigarettes - Alcohol History How Often Do You Have a Drink Containing Alcohol: Never - Substance Use History Substance History: Past History - Substance Use Type Crack/Cocaine Status: Sustained Remission Reason for Use: Calm Down, Feels Good, Socialization Comment: patient has past history of substance use with alcohol, marijuana, opiates, cocaine benzodiazpams - Travel History Recent Travel in the [place] Within the Last 8 Weeks: No Recent Travel Out of the Country Within the Last 8 Weeks: No - Immunization History Tetanus Immunization: Unsure Hx Influenza Vaccine This Season: Yes Medications and Allergies Active Medications: Active Medications Acetaminophen (Tylenol) 650 mg PO Q4H PRN PRN Reason: Pain 1-5 or Temp >101F Al Hydrox/Mg Hydrox/Simethicone (Mag-Al Plus Susp Liq) 30 ml PO Q6H PRN PRN Reason: DYSPEPSIA Al Hydroxide/Mg Hydroxide (Milk Of Magnesia Liq) 30 ml PO Q12H PRN PRN Reason: Mild Constipation Bisacodyl (Dulcolax Supp) 10 mg RECTAL DAILY PRN PRN Reason: SEVERE CONSITIPATION Diphenhydramine HCl (Benadryl) 50 mg PO HS PRN PRN Reason: INSOMNIA Last Admin: 02/23/18 20:32 Dose: 50 mg Divalproex Sodium (Depakote Dr) 500 mg PO HS [facility] Last Admin: 02/23/18 20:29 Dose: 500 mg Hydroxyzine HCl (Atarax) 50 mg PO Q6H PRN PRN Reason: ANXIETY Lactobacillus Acidophilus (Lactinex) 1 tab PO AC [facility] Last Admin: 02/24/18 11:46 Dose: 1 tab Lactulose (Lactulose Liq) 30 ml PO DAILY PRN PRN Reason: SEVERE CONSITIPATION Lactulose (Lactulose Liq) 30 ml PO BID [facility] Last Admin: 02/24/18 08:07 Dose: 30 ml Levetiracetam (Keppra) 250 mg PO Q12HR [facility] Last Admin: 02/24/18 08:07 Dose: 250 mg Lorazepam (Ativan Inj) 1 mg IM Q6H PRN PRN Reason: MODERATE TO SEVERE ANXIETY Lorazepam (Ativan) 1 mg PO Q6H PRN PRN Reason: MODERATE TO SEVERE ANXIETY Multivitamins (Theragran) 1 tab PO DAILY [facility] Last Admin: 02/24/18 08:07 Dose: 1 tab Nicotine (Habitrol 21 Mg Patch.24 Hr) 1 patch T-DERMAL DAILY [facility] Last Admin: 02/24/18 08:07 Dose: 1 patch Quetiapine Fumarate (Seroquel) 600 mg PO [facility] Last Admin: 02/23/18 20:28 Dose: 600 mg Senna/Docusate Sodium (Leanne-Colace) 1 tab PO BID [facility] Last Admin: 02/24/18 08:07 Dose: Not Given Sennosides (Senokot) 17.2 mg PO Q12H PRN PRN Reason: Moderate Constipation Sertraline HCl (Zoloft) 200 mg PO DAILY [facility] Last Admin: 02/24/18 08:07 Dose: 200 mg Allergies Allergy/AdvReac Type Severity Reaction Status Date / Time No Known Allergies Allergy Uncoded 11/13/16 20:22 Home Medications Medication Instructions Recorded Confirmed Type Ativan 1 mg PO Q8HR PRN 02/22/18 02/22/18 History Dulcolax (bisacodyl) 1 supp [place] DAILY PRN 02/22/18 02/22/18 History Lactobacillus acidophilus 100 mg PO AC 02/22/18 02/22/18 History [Acidophilus] Milk of Magnesia 30 cc PO DAILY PRN 02/22/18 02/23/18 History Multiple Vitamins 1 tab PO DAILY 02/22/18 02/23/18 History acetaminophen [Tylenol] 650 mg PO Q6H PRN 02/22/18 02/22/18 History calcium carbonate [Calcium 600] 600 mg PO BID 02/22/18 02/22/18 History divalproex [Depakote] 500 mg PO HS 02/22/18 02/22/18 History hydrocodone-acetaminophen [[place]] 1 tab PO Q6H PRN 02/22/18 02/22/18 History hydroxyzine pamoate 50 mg PO TID PRN 02/22/18 02/22/18 History lactulose 30 g PO BID 02/22/18 02/22/18 History levetiracetam [Keppra] 250 mg PO Q12H 02/22/18 02/22/18 History quetiapine [Seroquel] 600 mg PO HS 02/22/18 02/22/18 History sertraline 200 mg PO DAILY 02/22/18 02/22/18 History Physical Exam Vital signs: Vital Signs 02/23/18 18:13 02/24/18 06:00 Temperature 37.0 C 37.2 C Pulse Rate 73 59 L Respiratory Rate 20 15 Blood Pressure 119/73 100/52 L Pulse Oximetry 95 93 L Narrative: GENERAL: Thin elderly male resting in bed, appears to be in no acute distress. SKIN: Warm and dry. HEAD: Atraumatic. Normocephalic. EYES: Pupils equal and round. No scleral icterus. No injection or drainage. ENT: No nasal bleeding or discharge. Mucous membranes pink and moist. NECK: Trachea midline. No JVD. CARDIOVASCULAR: Regular rate and rhythm. RESPIRATORY: No accessory muscle use. Clear to auscultation. Breath sounds equal bilaterally. GASTROINTESTINAL: Abdomen soft, no facial grimace with palpation, nondistended. Positive bowel sounds in all quadrants. MUSCULOSKELETAL: Extremities without clubbing, cyanosis, or edema. No obvious deformities. NEUROLOGICAL: Awake and alert, oriented to self, time, and current president. No obvious cranial nerve deficits. Motor grossly within normal limits. 4/5 muscle strength in the arms and legs. Purposefully following commands on and off. Normal speech. PSYCHIATRIC: Calm, appears to be selective when responding as well as following commands. Assessment and Plan - Plan 62-year-old male with a past medical history significant for bipolar disorder, seizure disorder, gout, chronic back pain, COPD, HTN, HLD, chronic alcoholic pancreatitis, hepatitis B and hepatitis C who resides at assisted living facility who became upset claiming someone had stolen $1700 as well as a sandwich from him. Patient began threatening people, very upset, subsequently Avelar acted and brought to [place] for further psychiatric evaluation. Patient was seen and examined in the emergency department and medically cleared. [facility] consulted for management of hypertension and history of seizure disorder. Depression/PTSD -Treatment plan per psychiatry, greatly appreciated. History of hypertension -Patient currently on no blood pressure medications, BP today on the lower side -Continue monitoring for now. History of seizure disorder -Nursing does not report any seizures during this admission -Continue Keppra 250 mg every 12 hours, Depakote 500 mg at bedtime -We will have medication list verified with [facility] by nurse per -Check valproic acid levels. -Seizure precautions Left hip pain -Patient really unable to describe pain further. -[place] listed on home medications, however toxicology screen was negative for opiates -Check hip x-ray, Tylenol for pain and Lidoderm patch COPD, not exacerbated -O2 saturation stable on room air. Thrombocytopenia -Patient with a history of thrombocytopenia most likely secondary to a combination of history of hep C, hep B, and alcohol abuse. -Continue to monitor for the moment, monitor for bleeding. DVT prophylaxis-ambulation Thank you for this consultation, will continue to follow along. Discussed Condition With: Patient, nursing staff.
--- NOTE | 2018-02-24 20:16 | XR ---
EXAM DATE: 02/24/2018 8:05 PM EDT AGE/SEX: 62 years / Male INDICATIONS: Left hip pain. CLINICAL DATA: This is the patient's initial encounter. Patient reports that signs and symptoms have been present for 1 day and indicates a pain score of 8/10. MEDICAL/SURGICAL HISTORY: . Dementia. Seizures. Hypercholesterolemia. Hearing loss. Head trauma . Irregular heartbeat. Hypertension. COPD. Pancreatitis. Cirrhosis. Gout. Diabetes. PTSD. Bipolar dis order. Depression. Anxiety. Measles. Hep C and B. . ORIF Left hip. [place] [facility] [place]07/2015. . FINDINGS: 2 views of the left hip demonstrate 4 partially threaded cannulated screws within the left femoral he ad and neck region. The proximal aspects of the screws extend beyond the lateral cortex of the proxim al femur, stable from the prior study. The femoral neck is not well visualized but appears to have a similar orientation as the a prior study. There are no findings to indicate hardware failure or loose tae. Mild left hip osteoarthritis is present. Visualized pelvic bones demonstrate no acute finding. No soft tissue abnormality is identified. CONCLUSION: No acute left hip abnormality is identified. There is stable changes following prior left femoral nec k fracture post-ORIF. Mild left hip joint osteoarthritis is present. Electronically signed by: Eder Feliciano MD 02/24/2018 8:14 PM EDT
[2018-02-24] MEDS: Divalproex 500 MG DR Tablet PO SCH (21:15)
[2018-02-24] MEDS: Lidocaine 5% Patch T-DERMAL SCH (22:24)
--- NOTE | 2018-02-25 09:28 | P.PN ---
Subjective Interval history: Follow-up to HTN, seizure disorder, and left hip pain. Spoke with nurse who does not report any acute concerns. Patient is seen and examined resting in bed comfortably in no acute distress. He complains of left hip/leg cramping and states that this woke him up at night. He reports that he is in a hospital and wants something this pain. He denies any fevers, chills, nausea, vomiting, diarrhea, cough, shortness of breath or chest pain. Physical Exam Vital signs: Vital Signs 02/24/18 18:37 02/25/18 05:33 Temperature 36.6 C 36.6 C Pulse Rate 74 65 Respiratory Rate 16 16 Blood Pressure 108/61 113/65 Pulse Oximetry 94 L 95 Intake & Output 02/24/18 02/25/18 02/25/18 18:59 06:59 18:59 Intake Total 0 / 0 Balance 0 / 0 Intake: Oral 0 / 0 Narrative: GENERAL: Thin elderly male resting in bed, appears to be in no acute distress. SKIN: Warm and dry. HEAD: Atraumatic. Normocephalic. EYES: Pupils equal and round. No scleral icterus. No injection or drainage. ENT: No nasal bleeding or discharge. Mucous membranes pink and moist. NECK: Trachea midline. No JVD. CARDIOVASCULAR: Regular rate and rhythm. RESPIRATORY: No accessory muscle use. Clear to auscultation. Breath sounds equal bilaterally. GASTROINTESTINAL: Abdomen soft, nontender, nondistended. Positive bowel sounds in all quadrants. MUSCULOSKELETAL: Extremities without clubbing, cyanosis, or edema. No obvious deformities. NEUROLOGICAL: Awake and alert, oriented to self, time, and current president. No obvious cranial nerve deficits. Motor grossly within normal limits. 4/5 muscle strength in the arms and legs. Normal speech. PSYCHIATRIC: Calm, and cooperative. Results - Labs CBC & Chem 7: 02/22/18 22:00 02/24/18 10:30 Laboratory Results - last 24 hr 02/24/18 02/24/18 02/24/18 10:30 10:30 10:30 Sodium 142 Potassium 3.7 Chloride 106 Carbon Dioxide 24.8 Anion Gap 11 BUN 23 H Creatinine 1.00 Estimated GFR 75 L Random Glucose 108 H Hemoglobin A1c 4.7 Calcium 9.6 Triglycerides 194 H Cholesterol 163 LDL Cholesterol, Calc 93 HDL Cholesterol 31.7 L Cholesterol/HDL Ratio 5.14 Valproic Acid 61 - Imaging Impressions Hip X-Ray 02/24/18 00:00 CONCLUSION: No acute left hip abnormality is identified. There is stable changes following prior left femoral neck fracture post-ORIF. Mild left hip joint osteoarthritis is present. Assessment and Plan - Plan 62-year-old male with a past medical history significant for bipolar disorder, seizure disorder, gout, chronic back pain, COPD, HTN, HLD, chronic alcoholic pancreatitis, hepatitis B and hepatitis C who resides at assisted living facility who became upset claiming someone had stolen $1700 as well as a sandwich from him. Patient began threatening people, very upset, subsequently Avelar acted and brought to [place] for further psychiatric evaluation. Patient was seen and examined in the emergency department and medically cleared. [facility] consulted for management of hypertension and history of seizure disorder. Depression/PTSD -Treatment plan per psychiatry, greatly appreciated. History of hypertension -Patient currently on no blood pressure medications, BP has been stable. -Continue monitoring for now. History of seizure disorder -No reports of seizures. -Continue Keppra 250 mg every 12 hours, Depakote 500 mg at bedtime -Lipoic acid levels therapeutic, 61 -Seizure precautions Left hip pain -Reports cramping like spasms. -Hip x-ray reviewed, no acute left hip abnormality, stable changes following prior left femoral head fracture status post ORIF. Mild left hip joint osteoarthritis. -Scheduled baclofen, as needed Tylenol for pain and Lidoderm patch COPD, not exacerbated -O2 saturation stable on room air. Thrombocytopenia -Patient with a history of thrombocytopenia most likely secondary to a combination of history of hep C, hep B, and alcohol abuse. -Continue to monitor for the moment, monitor for bleeding. DVT prophylaxis-ambulation Discussed Condition With: Patient and nurse.
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
[2018-02-25] MEDS: Lactobacillus Acidophilus/L. Spores Tablet PO SCH ×3 (10:02→18:30)
[2018-02-25] MEDS: levETIRAcetam 250 MG Tablet PO SCH ×2 (10:03→21:26)
[2018-02-25] MEDS: Senna/Docusate Sodium 8.6/50 MG Tablet PO SCH ×2 (10:03→21:26)
[2018-02-25] MEDS: Acetaminophen 325 MG Tablet PO PRN (10:04)
[2018-02-25] MEDS: Sertraline 100 MG Tablet PO SCH (10:06)
[2018-02-25] MEDS: Baclofen 10 MG Tablet PO SCH ×2 (14:49→21:26)
[2018-02-25] MEDS: Divalproex 500 MG DR Tablet PO SCH (21:26)
[2018-02-25] MEDS: Lidocaine 5% Patch T-DERMAL SCH (21:27)
[2018-02-26] MEDS: Baclofen 10 MG Tablet PO SCH ×3 (06:37→21:36)
[2018-02-26] MEDS ORDERED: Ibuprofen 600 MG Tablet PO PRN (07:49)
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
[2018-02-26] MEDS: Sertraline 100 MG Tablet PO SCH (10:05)
[2018-02-26] MEDS: Lactobacillus Acidophilus/L. Spores Tablet PO SCH ×2 (10:05→15:10)
[2018-02-26] MEDS: Senna/Docusate Sodium 8.6/50 MG Tablet PO SCH ×2 (10:05→21:36)
[2018-02-26] MEDS: levETIRAcetam 250 MG Tablet PO SCH ×2 (10:05→21:35)
[2018-02-26] MEDS: Acetaminophen 325 MG Tablet PO PRN (15:58)
--- NOTE | 2018-02-26 16:31 | P.PNPSY ---
Subjective Remarks: Patient was seen and case discussed with nursing. Patient is hard of hearing limiting the patient is irritable with low frustration tolerance. He is complaining of pain and nursing will make a note to the medical team. Per nursing he is sleeping and eating well but patient says he is not sleeping well. Affect is quite irritable. Insight is poor Mental Status Examination Appearance: Disheveled Consciousness: Alert Orientation: Person, Place, Date/Time, Situation Motor Activity: Normal gait Speech: Pressured, Rapid, Hesitant (Decreasing improving) Language: Adequate Fund of Knowledge: Inadequate (Improving) Attention and Concentration: Easily distracted Memory: Impaired Mood: Angry (Calmer), Irritable Affect: Irritable, Anxious Thought Process & Associations: Disorganized Thought Content: Bizarre thinking (Improving) Hallucination Type: None (Denies) Delusion Type: Paranoid Suicidal Ideation: No Suicidal Plan: No Suicidal Intention: No Homicidal Ideation: No Homicidal Plan: No Homicidal Intention: No Insight: Poor Judgment: Poor Assessment and Plan - Assessment (1) PTSD (post-traumatic stress disorder) Code(s): F43.10 - Post-traumatic stress disorder, unspecified Status: Acute (2) Major depressive disorder, recurrent, severe w/o psychotic behavior Code(s): F33.2 - Major depressive disorder, recurrent severe without psychotic features Status: Acute - Plan Plan: Continue current treatment plan Justification for Continued Inpatient Stay: Patient would decompensate in a less restrictive setting
[2018-02-26] MEDS: Lidocaine 5% Patch T-DERMAL SCH (21:33)
[2018-02-26] MEDS: Divalproex 500 MG DR Tablet PO SCH (21:35)
[2018-02-27] MEDS: Baclofen 10 MG Tablet PO SCH ×3 (05:58→21:36)
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
[2018-02-27] MEDS: Lactobacillus Acidophilus/L. Spores Tablet PO SCH ×4 (13:23→18:40)
[2018-02-27] MEDS: Senna/Docusate Sodium 8.6/50 MG Tablet PO SCH (13:24)
[2018-02-27] MEDS: levETIRAcetam 250 MG Tablet PO SCH ×2 (13:24→21:37)
[2018-02-27] MEDS: Sertraline 100 MG Tablet PO SCH (13:24)
[2018-02-27] MEDS: Gabapentin 100 MG Capsule PO SCH ×3 (13:24→16:24)
--- NOTE | 2018-02-27 14:05 | P.PNPSY ---
Subjective Remarks: Patient was seen and case discussed with nursing. Patient's irritability has improved. He is more interactive and less perseverative. His sleep has improved with the changes from the medical team. Mood today is "a little better." Compliant with his medications Mental Status Examination Appearance: Disheveled Consciousness: Alert Orientation: Person, Place, Date/Time, Situation Motor Activity: Normal gait Speech: Pressured, Rapid, Hesitant (Decreasing improving) Language: Adequate Fund of Knowledge: Inadequate (Improving) Attention and Concentration: Easily distracted Memory: Impaired Mood: Appropriate Affect: Anxious Thought Process & Associations: Disorganized Thought Content: Bizarre thinking (Improving) Hallucination Type: None (Denies) Delusion Type: Paranoid Suicidal Ideation: No Suicidal Plan: No Suicidal Intention: No Homicidal Ideation: No Homicidal Plan: No Homicidal Intention: No Insight: Poor Judgment: Poor Assessment and Plan - Assessment (1) PTSD (post-traumatic stress disorder) Code(s): F43.10 - Post-traumatic stress disorder, unspecified Status: Acute (2) Major depressive disorder, recurrent, severe w/o psychotic behavior Code(s): F33.2 - Major depressive disorder, recurrent severe without psychotic features Status: Acute - Plan Plan: Continue current treatment plan Justification for Continued Inpatient Stay: Patient would decompensate in a less restrictive setting
[2018-02-27] MEDS: Lidocaine 5% Patch T-DERMAL SCH (21:35)
[2018-02-27] MEDS: Divalproex 500 MG DR Tablet PO SCH (21:36)
[2018-02-28] MEDS: Senna/Docusate Sodium 8.6/50 MG Tablet PO SCH ×3 (02:53→22:22)
[2018-02-28] MEDS: Baclofen 10 MG Tablet PO SCH ×2 (06:14→13:24)
[2018-02-28] MEDS: Gabapentin 100 MG Capsule PO SCH ×3 (10:28→17:47)
[2018-02-28] MEDS: Lactobacillus Acidophilus/L. Spores Tablet PO SCH ×3 (10:28→17:47)
[2018-02-28] MEDS: levETIRAcetam 250 MG Tablet PO SCH ×2 (10:29→22:22)
[2018-02-28] MEDS: Sertraline 100 MG Tablet PO SCH (10:29)
--- NOTE | 2018-02-28 12:11 | P.PNPSY ---
Subjective Remarks: Patient seen in his room with nurse Nakul and medical student Amanda, chart reviewed, patient compliant medications. Patient's mood is somewhat elevated he states is feeling much better today he had a good night sleep last night, his anxiety pain and apprehension paranoia have markedly diminished. He now feels calm and cooperative is willing to go back to his [facility]. We will discuss this with the medicine service if patient can be medically cleared consider discharge tomorrow to his [facility] Review of Systems All other systems reviewed negative except as stated in HPI Mental Status Examination Appearance: Appropriate Consciousness: Alert Orientation: Person, Place, Date/Time, Situation Motor Activity: Normal gait Speech: Pressured, Rapid, Hesitant (Decreasing improving) Language: Adequate Fund of Knowledge: Inadequate (Improving) Attention and Concentration: Easily distracted Memory: Impaired Mood: Appropriate Affect: Anxious Thought Process & Associations: Disorganized Thought Content: Bizarre thinking (Improving) Hallucination Type: None (Denies) Delusion Type: Paranoid Suicidal Ideation: No Suicidal Plan: No Suicidal Intention: No Homicidal Ideation: No Homicidal Plan: No Homicidal Intention: No Insight: Poor Judgment: Poor Assessment and Plan - Assessment (1) PTSD (post-traumatic stress disorder) Code(s): F43.10 - Post-traumatic stress disorder, unspecified Status: Acute (2) Major depressive disorder, recurrent, severe w/o psychotic behavior Code(s): F33.2 - Major depressive disorder, recurrent severe without psychotic features Status: Acute - Plan Plan: Patient continues to improve, states she slept well there is less paranoia and is more positive attitude towards her future. Justification for Continued Inpatient Stay: At this time patient would decompensate if not placed in an appropriate level of care Discharge Planning: Consider possible discharge tomorrow back to [facility]
[2018-02-28] MEDS: Divalproex 500 MG DR Tablet PO SCH (22:22)
[2018-02-28] MEDS: Lidocaine 5% Patch T-DERMAL SCH (22:24)
[2018-03-01] MEDS: Baclofen 10 MG Tablet PO SCH ×4 (02:05→22:02)
--- NOTE | 2018-03-01 09:21 | P.PNPSY ---
Subjective Remarks: Patient seen in his room with nurse Nakul, medical student Amanda, and counselor Juanita. Patient chart reviewed, patient compliant medication. Patient more distraught today irritable now saying that his mind is active and that he is going to kill himself by cutting his arms. It appears patient had of this significant change in attitude after being visited by his girlfriend. We are not certain as to the conversation with staff states it appears she was doting on him. However it appears now that he feels she is being taken advantage of, though he is given is contradictory statements about her living with a "cult" or perhaps an [employer]. He focuses somewhat on his financial issues dating that he now has over $1700 a month in income. But that he has been giving her half of his money to live on. We need to contact this lady have her come in for a session and attempt to determine what is real versus his imagination. However at this time he is pretty adamant about wanting to kill himself. For now continue treatment and observation Review of Systems All other systems reviewed negative except as stated in HPI Mental Status Examination Appearance: Appropriate Consciousness: Alert Orientation: Person, Place, Date/Time, Situation Motor Activity: Normal gait Speech: Pressured, Rapid, Hesitant (Decreasing improving) Language: Adequate Fund of Knowledge: Inadequate (Improving) Attention and Concentration: Easily distracted Memory: Impaired Mood: Sad, Irritable Affect: Other (Slight increased range and intensity) Thought Process & Associations: Disorganized Thought Content: Bizarre thinking (Improving) Hallucination Type: None (Denies) Delusion Type: Paranoid Suicidal Ideation: Yes (Now his plans to get a bottle and lacerated his arms) Suicidal Plan: Yes (Now making statements about wanting to kill himself by getting a bottle and lacerating his arms) Suicidal Intention: Yes (Vague) Homicidal Ideation: No Homicidal Plan: No Homicidal Intention: No Insight: Poor Judgment: Poor Assessment and Plan - Assessment (1) PTSD (post-traumatic stress disorder) Code(s): F43.10 - Post-traumatic stress disorder, unspecified Status: Acute (2) Major depressive disorder, recurrent, severe w/o psychotic behavior Code(s): F33.2 - Major depressive disorder, recurrent severe without psychotic features Status: Acute - Plan Plan: Patient now expressing suicidality in a fairly intense detailed manner of getting a beer bottle breaking it and cutting his arms. This is significant reversal of his feelings and statements yesterday afternoon. Need to get further information from his "girlfriend". Justification for Continued Inpatient Stay: At this time patient would decompensate a place to a lower level of care Discharge Planning: To be determined
[2018-03-01] MEDS: Lactobacillus Acidophilus/L. Spores Tablet PO SCH ×3 (09:52→17:49)
[2018-03-01] MEDS: Sertraline 100 MG Tablet PO SCH (09:52)
[2018-03-01] MEDS: levETIRAcetam 250 MG Tablet PO SCH ×2 (09:52→20:38)
[2018-03-01] MEDS: Senna/Docusate Sodium 8.6/50 MG Tablet PO SCH ×2 (09:52→20:38)
[2018-03-01] MEDS: Gabapentin 100 MG Capsule PO SCH ×3 (09:53→17:49)
[2018-03-01] MEDS: Divalproex 250 MG ER Tablet PO SCH ×2 (12:04→12:26)
[2018-03-01] MEDS: Divalproex 500 MG DR Tablet PO SCH (20:38)
[2018-03-01] MEDS: Lidocaine 5% Patch T-DERMAL SCH (20:38)
[2018-03-02] MEDS: Lactobacillus Acidophilus/L. Spores Tablet PO SCH ×2 (09:14→14:50)
[2018-03-02] MEDS: Gabapentin 100 MG Capsule PO SCH ×2 (09:14→14:50)
[2018-03-02] MEDS: Divalproex 250 MG ER Tablet PO SCH (09:15)
[2018-03-02] MEDS: levETIRAcetam 250 MG Tablet PO SCH ×2 (09:15→21:22)
[2018-03-02] MEDS: Senna/Docusate Sodium 8.6/50 MG Tablet PO SCH ×2 (09:15→21:22)
[2018-03-02] MEDS: Sertraline 100 MG Tablet PO SCH (09:16)
--- NOTE | 2018-03-02 10:00 | P.PNPSY ---
Subjective Remarks: Met with patient patient's girlfriend Erika counselor Juanita Lainez nurse Howie. Continues somewhat intrusive and loud and somewhat rapid speech but redirectable. His girlfriend states they were living together for a period of time at [facility] sharing a room and doing quite well there but appears financially he had to be moved from another facility. Counselor will be exploring possible funding help from the [place] perhaps to reunite them and medical problems. Patient is vague about any suicidality. For now continue treatment we will check Depakote blood level over tomorrow Review of Systems All other systems reviewed negative except as stated in HPI Mental Status Examination Appearance: Appropriate Consciousness: Alert Orientation: Person, Place, Date/Time, Situation Motor Activity: Normal gait Speech: Pressured, Rapid, Hesitant (Decreasing improving) Language: Adequate Fund of Knowledge: Inadequate (Improving) Attention and Concentration: Easily distracted Memory: Impaired Mood: Sad, Irritable Affect: Other (Slight increased range and intensity) Thought Process & Associations: Disorganized Thought Content: Bizarre thinking (Improving) Hallucination Type: None (Denies) Delusion Type: Paranoid Suicidal Ideation: Yes (Now his plans to get a bottle and lacerated his arms) Suicidal Plan: Yes (Now making statements about wanting to kill himself by getting a bottle and lacerating his arms) Suicidal Intention: Yes (Vague) Homicidal Ideation: No Homicidal Plan: No Homicidal Intention: No Insight: Poor Judgment: Poor Assessment and Plan - Assessment (1) PTSD (post-traumatic stress disorder) Code(s): F43.10 - Post-traumatic stress disorder, unspecified Status: Acute (2) Major depressive disorder, recurrent, severe w/o psychotic behavior Code(s): F33.2 - Major depressive disorder, recurrent severe without psychotic features Status: Acute - Plan Plan: Patient continues somewhat confused loud and intrusive but redirectable. He does appear to have a sincere feelings and relationship with his girlfriend Anna. We will check Depakote level over in a.m. Justification for Continued Inpatient Stay: At this time patient would decompensate a place to a lower level of care Discharge Planning: To be determined
[2018-03-02] MEDS: Baclofen 10 MG Tablet PO SCH ×2 (14:50→21:22)
[2018-03-02] MEDS: Divalproex 500 MG DR Tablet PO SCH (21:22)
[2018-03-02] MEDS: Lidocaine 5% Patch T-DERMAL SCH (21:22)
[2018-03-03] MEDS: levETIRAcetam 250 MG Tablet PO SCH ×2 (08:05→20:23)
[2018-03-03] MEDS: Divalproex 250 MG ER Tablet PO SCH (08:05)
[2018-03-03] MEDS: Baclofen 10 MG Tablet PO SCH ×4 (08:05→21:06)
[2018-03-03] MEDS: Senna/Docusate Sodium 8.6/50 MG Tablet PO SCH ×2 (08:05→20:23)
[2018-03-03] MEDS: Sertraline 100 MG Tablet PO SCH (08:05)
[2018-03-03] MEDS: Lactobacillus Acidophilus/L. Spores Tablet PO SCH ×3 (08:07→17:41)
[2018-03-03] MEDS: Gabapentin 100 MG Capsule PO SCH ×2 (08:09→17:42)
--- NOTE | 2018-03-03 15:31 | P.PNPSY ---
Subjective Remarks: Patient seen in [facility] today patient continued 2 weeks per Parish Sandr[place]urch patient being allowed to continue giving permission for medication and treatment. Patient continued somewhat confused. She was vague about suicidality though it appears to be more something situational. Today he states she is willing to go back in the [address] [place] [address] or [facility]. Though he may need to investigate other possible referral sources Review of Systems All other systems reviewed negative except as stated in HPI Mental Status Examination Appearance: Appropriate Consciousness: Alert Orientation: Person, Place, Date/Time, Situation Motor Activity: Normal gait Speech: Pressured, Rapid, Hesitant (Decreasing improving) Language: Adequate Fund of Knowledge: Inadequate (Improving) Attention and Concentration: Easily distracted Memory: Impaired Mood: Sad, Irritable Affect: Other (Slight increased range and intensity) Thought Process & Associations: Disorganized Thought Content: Bizarre thinking (Improving) Hallucination Type: None (Denies) Delusion Type: Paranoid Suicidal Ideation: Yes (Now his plans to get a bottle and lacerated his arms) Suicidal Plan: Yes (Now making statements about wanting to kill himself by getting a bottle and lacerating his arms) Suicidal Intention: Yes (Vague) Homicidal Ideation: No Homicidal Plan: No Homicidal Intention: No Insight: Poor Judgment: Poor Assessment and Plan - Assessment (1) PTSD (post-traumatic stress disorder) Code(s): F43.10 - Post-traumatic stress disorder, unspecified Status: Acute (2) Major depressive disorder, recurrent, severe w/o psychotic behavior Code(s): F33.2 - Major depressive disorder, recurrent severe without psychotic features Status: Acute - Plan Plan: Patient case continued by Parish Cook, patient somewhat vague about suicidality at this time continues to focus on wanting to be with his "fianc" Justification for Continued Inpatient Stay: At this time patient would decompensate a place to a lower level of care Discharge Planning: To be determined
[2018-03-03] MEDS: Lidocaine 5% Patch T-DERMAL SCH (20:23)
[2018-03-03] MEDS: Divalproex 500 MG DR Tablet PO SCH (20:23)
[2018-03-04] MEDS: Sertraline 100 MG Tablet PO SCH (08:47)
[2018-03-04] MEDS: Divalproex 250 MG ER Tablet PO SCH (08:48)
[2018-03-04] MEDS: Senna/Docusate Sodium 8.6/50 MG Tablet PO SCH ×2 (08:48→20:17)
[2018-03-04] MEDS: levETIRAcetam 250 MG Tablet PO SCH ×2 (08:48→20:19)
[2018-03-04] MEDS: Lactobacillus Acidophilus/L. Spores Tablet PO SCH ×4 (08:48→22:02)
[2018-03-04] MEDS: Gabapentin 100 MG Capsule PO SCH ×3 (08:49→17:41)
--- NOTE | 2018-03-04 10:22 | P.PNPSY ---
Subjective Remarks: Patient seen in his room with medical student Amanda, chart reviewed, patient compliant medications. Patient is showing no behavioral problems recently he is calm cooperative and compliant with his medications. There is no mention at this time of any suicidal ideation intent or plan is showing more willingness to find an appropriate placement. For now continue treatment Review of Systems All other systems reviewed negative except as stated in HPI Mental Status Examination Appearance: Appropriate Consciousness: Alert Orientation: Person, Place, Date/Time, Situation Motor Activity: Normal gait Speech: Pressured, Rapid, Hesitant (Decreasing improving) Language: Adequate Fund of Knowledge: Inadequate (Improving) Attention and Concentration: Easily distracted Memory: Impaired Mood: Sad, Irritable Affect: Other (Slight increased range and intensity) Thought Process & Associations: Disorganized Thought Content: Bizarre thinking (Improving) Hallucination Type: None (Denies) Delusion Type: Paranoid Suicidal Ideation: Yes (Now his plans to get a bottle and lacerated his arms) Suicidal Plan: Yes (Now making statements about wanting to kill himself by getting a bottle and lacerating his arms) Suicidal Intention: Yes (Vague) Homicidal Ideation: No Homicidal Plan: No Homicidal Intention: No Insight: Poor Judgment: Poor Assessment and Plan - Assessment (1) PTSD (post-traumatic stress disorder) Code(s): F43.10 - Post-traumatic stress disorder, unspecified Status: Acute (2) Major depressive disorder, recurrent, severe w/o psychotic behavior Code(s): F33.2 - Major depressive disorder, recurrent severe without psychotic features Status: Acute - Plan Plan: Patient showing some mild increase in cooperation he is compliant medications, there is no mention of suicidality at the present time he is showing willingness to look at various placement options for now continue treatment Justification for Continued Inpatient Stay: At this time patient would decompensate a place to a lower level of care Discharge Planning: To be determined
[2018-03-04] MEDS: Baclofen 10 MG Tablet PO SCH ×2 (17:35→22:01)
[2018-03-04] MEDS: Divalproex 500 MG DR Tablet PO SCH (20:19)
[2018-03-04] MEDS: Lidocaine 5% Patch T-DERMAL SCH (20:20)
[2018-03-05] MEDS: Baclofen 10 MG Tablet PO SCH ×4 (00:24→22:12)
--- NOTE | 2018-03-05 07:49 | P.PNPSY ---
Subjective Chief Complaint: Rounded on patient with Krystin MATHEWS. Patient is hard of hearing. Patient in bed and states he had a good night sleep. He is calm and per staff there are no behavioral concerns. Endorses no suicidal ideation. States that he is somewhat depressed but that he has a girlfriend who he cares about who lifts his spirits. He is aware of continued efforts to find placement. Remarks: Patient is stable. Review of Systems All other systems reviewed negative except as stated in HPI Mental Status Examination Appearance: Appropriate Consciousness: Alert Orientation: Person, Place, Date/Time, Situation Motor Activity: Normal gait Speech: Pressured, Rapid, Hesitant (Decreasing improving) Language: Adequate Fund of Knowledge: Inadequate (Improving) Attention and Concentration: Easily distracted Memory: Impaired Mood: Sad, Irritable Affect: Other (Slight increased range and intensity) Thought Process & Associations: Disorganized Thought Content: Bizarre thinking (Improving) Hallucination Type: None (Denies) Delusion Type: Paranoid Suicidal Ideation: Yes Suicidal Plan: Yes (states he would never take his life as he would leave his girlfriend) Suicidal Intention: Yes (Vague) Homicidal Ideation: No Homicidal Plan: No Homicidal Intention: No Insight: Poor Judgment: Poor Assessment and Plan - Assessment (1) PTSD (post-traumatic stress disorder) Code(s): F43.10 - Post-traumatic stress disorder, unspecified Status: Acute (2) Major depressive disorder, recurrent, severe w/o psychotic behavior Code(s): F33.2 - Major depressive disorder, recurrent severe without psychotic features Status: Acute - Plan Plan: Patient showing some mild increase in cooperation he is compliant medications, there is no mention of suicidality at the present time he is showing willingness to look at various placement options for now continue treatment Justification for Continued Inpatient Stay: Moving patient to a low level of care may result in his decompensation.
[2018-03-05] MEDS: Sertraline 100 MG Tablet PO SCH (09:20)
[2018-03-05] MEDS: Lactobacillus Acidophilus/L. Spores Tablet PO SCH ×3 (09:21→17:39)
[2018-03-05] MEDS: Divalproex 250 MG ER Tablet PO SCH (09:21)
[2018-03-05] MEDS: Senna/Docusate Sodium 8.6/50 MG Tablet PO SCH ×2 (09:21→22:08)
[2018-03-05] MEDS: Gabapentin 100 MG Capsule PO SCH ×3 (09:22→17:39)
[2018-03-05] MEDS: levETIRAcetam 250 MG Tablet PO SCH ×2 (09:22→22:08)
[2018-03-05] MEDS: Lidocaine 5% Patch T-DERMAL SCH (22:07)
[2018-03-05] MEDS: Divalproex 500 MG DR Tablet PO SCH (22:08)
[2018-03-06] MEDS: Baclofen 10 MG Tablet PO SCH ×2 (06:22→14:01)
[2018-03-06] MEDS: Sertraline 100 MG Tablet PO SCH (09:45)
[2018-03-06] MEDS: levETIRAcetam 250 MG Tablet PO SCH ×2 (09:45→21:47)
[2018-03-06] MEDS: Divalproex 250 MG ER Tablet PO SCH (09:46)
[2018-03-06] MEDS: Senna/Docusate Sodium 8.6/50 MG Tablet PO SCH ×2 (09:46→21:50)
[2018-03-06] MEDS: Gabapentin 100 MG Capsule PO SCH ×3 (09:46→17:58)
[2018-03-06] MEDS: Lactobacillus Acidophilus/L. Spores Tablet PO SCH (16:51)
--- NOTE | 2018-03-06 18:15 | P.PNPSY ---
Subjective Chief Complaint: Rounded on patient with Krystin MATHEWS. Patient is hard of hearing. Patient in bed and states he had a good night sleep. He is calm and per staff there are no behavioral concerns. Endorses no suicidal ideation. States that he is somewhat depressed but that he has a girlfriend who he cares about who lifts his spirits. He is aware of continued efforts to find placement. Remarks: Reviewed electronic medical records and discussed case with staff. Follow-up was conducted in patient's room with RN present. Patient is found lying the bed awake, alert and oriented to self only. He reports that he sleeping well but that his appetite is been decreased. He denies any complaints today. He does express concern over his medication stating that he typically gets "21 medicines a day". Mental Status Examination Appearance: Appropriate Consciousness: Alert Orientation: Person, Place, Date/Time, Situation Motor Activity: Normal gait Speech: Pressured, Rapid, Hesitant (Decreasing improving) Language: Adequate Fund of Knowledge: Inadequate (Improving) Attention and Concentration: Easily distracted Memory: Impaired Mood: Sad, Irritable Affect: Other (Slight increased range and intensity) Thought Process & Associations: Disorganized Thought Content: Bizarre thinking (Improving) Hallucination Type: None (Denies) Delusion Type: Paranoid Suicidal Ideation: Yes Suicidal Plan: Yes (states he would never take his life as he would leave his girlfriend) Suicidal Intention: Yes (Vague) Homicidal Ideation: No Homicidal Plan: No Homicidal Intention: No Insight: Poor Judgment: Poor Assessment and Plan - Assessment (1) PTSD (post-traumatic stress disorder) Code(s): F43.10 - Post-traumatic stress disorder, unspecified Status: Acute - Plan Plan: Patient will be reevaluated tomorrow by the attending psychiatrist. Continue with current treatment plan. Justification for Continued Inpatient Stay: Moving this patient to a less restrictive environment would likely result in decompensation.
[2018-03-06] MEDS: Lidocaine 5% Patch T-DERMAL SCH (21:46)
[2018-03-07] MEDS: Divalproex 500 MG DR Tablet PO SCH ×2 (05:49→20:38)
[2018-03-07] MEDS: Baclofen 10 MG Tablet PO SCH ×4 (05:49→21:17)
[2018-03-07] MEDS: Lactobacillus Acidophilus/L. Spores Tablet PO SCH ×3 (09:43→18:32)
[2018-03-07] MEDS: levETIRAcetam 250 MG Tablet PO SCH ×2 (09:44→20:39)
[2018-03-07] MEDS: Divalproex 250 MG ER Tablet PO SCH (09:44)
[2018-03-07] MEDS: Gabapentin 100 MG Capsule PO SCH ×3 (09:45→18:32)
[2018-03-07] MEDS: Sertraline 100 MG Tablet PO SCH (10:45)
[2018-03-07] MEDS: Senna/Docusate Sodium 8.6/50 MG Tablet PO SCH ×2 (10:45→20:39)
--- NOTE | 2018-03-07 19:01 | P.PNPSY ---
Subjective Chief Complaint: Rounded on patient with Krystin MATHEWS. Patient is hard of hearing. Patient in bed and states he had a good night sleep. He is calm and per staff there are no behavioral concerns. Endorses no suicidal ideation. States that he is somewhat depressed but that he has a girlfriend who he cares about who lifts his spirits. He is aware of continued efforts to find placement. Remarks: Reviewed electronic medical records and discussed case with staff. Follow-up was conducted in patient's room. Patient was found awake and alert. His hearing seems to be much better today. His mood is good his affect is euthymic. He reports that he slept well and his appetite has been "much better ". He reports feeling better today. He asks about the possibility is being discharged back to his facility. I explained that the behavioral health case manager would be working on that which he acknowledged they had been and think me for checking on him. Mental Status Examination Appearance: Appropriate Consciousness: Alert Orientation: Person, Place, Date/Time, Situation Motor Activity: Normal gait Speech: Pressured, Rapid, Hesitant (Decreasing improving) Language: Adequate Fund of Knowledge: Inadequate (Improving) Attention and Concentration: Easily distracted Memory: Impaired Mood: Sad, Irritable Affect: Other (Slight increased range and intensity) Thought Process & Associations: Disorganized Thought Content: Bizarre thinking (Improving) Hallucination Type: None (Denies) Delusion Type: Paranoid Suicidal Ideation: Yes Suicidal Plan: Yes (states he would never take his life as he would leave his girlfriend) Suicidal Intention: Yes ([place]) Homicidal Ideation: No Homicidal Plan: No Homicidal Intention: No Insight: Poor Judgment: Poor Assessment and Plan - Assessment (1) PTSD (post-traumatic stress disorder) Code(s): F43.10 - Post-traumatic stress disorder, unspecified Status: Acute - Plan Plan: Patient will be reevaluated tomorrow by an attending psychiatrist. Continue with current treatment plan. Justification for Continued Inpatient Stay: Moving this patient to a less restrictive environment would likely result in decompensation.
[2018-03-07] MEDS: Lidocaine 5% Patch T-DERMAL SCH (20:41)
[2018-03-08] MEDS: Baclofen 10 MG Tablet PO SCH ×3 (06:11→23:59)
[2018-03-08] MEDS: Gabapentin 100 MG Capsule PO SCH ×3 (09:30→20:00)
[2018-03-08] MEDS: Senna/Docusate Sodium 8.6/50 MG Tablet PO SCH ×2 (09:30→20:01)
[2018-03-08] MEDS: Sertraline 100 MG Tablet PO SCH (09:30)
[2018-03-08] MEDS: levETIRAcetam 250 MG Tablet PO SCH ×2 (09:30→20:00)
[2018-03-08] MEDS: Lactobacillus Acidophilus/L. Spores Tablet PO SCH ×3 (09:30→17:05)
[2018-03-08] MEDS: Divalproex 250 MG ER Tablet PO SCH (09:31)
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
--- NOTE | 2018-03-08 17:00 | P.PNPSY ---
Subjective Remarks: Patient seen for follow, chart reviewed. Discussion nursing staff reported the patient patient compliant medication but has not showered. Patient was found lying hospital bed noted to be disheveled,, cooperative with limited interaction with interview. Patient states that he is feeling "alright" having had some difficulty with sleep last evening, stating that "everything is all right denying any perceptional services or delusions, denies any SI or HI. Patient agrees to shower today. Review of Systems All other systems reviewed negative except as stated in HPI Mental Status Examination Appearance: Appropriate Consciousness: Alert Orientation: Person, Place, Date/Time, Situation Motor Activity: Normal gait Speech: Hesitant (Decreasing improving) Language: Adequate Fund of Knowledge: Inadequate (Improving) Attention and Concentration: Easily distracted Memory: Impaired Mood: Other ("I am alright") Affect: Other (Slight increased range and intensity) Thought Process & Associations: Linear, Other ([place]) Thought Content: Bizarre thinking (Improving) Hallucination Type: None (Denies) Delusion Type: Paranoid Suicidal Ideation: Yes (Denies today) Suicidal Plan: No (states he would never take his life as he would leave his girlfriend) Suicidal Intention: No (Vague) Homicidal Ideation: No Homicidal Plan: No Homicidal Intention: No Insight: Poor Judgment: Poor Assessment and Plan - Assessment (1) PTSD (post-traumatic stress disorder) Code(s): F43.10 - Post-traumatic stress disorder, unspecified Status: Acute (2) Major depressive disorder, recurrent, severe w/o psychotic behavior Code(s): F33.2 - Major depressive disorder, recurrent severe without psychotic features Status: Acute - Plan Plan: Patient this time denies any depressed mood, denying suicide ideations, denies any physical complaints, has a compliant with treatment and has been improving as far as hygiene is patient was later seen after having taken a shower today. We will continue current treatment. We will continue to monitor mood and behavior. Discharge planning a progress. Justification for Continued Inpatient Stay: At risk for further decompensation if at lower level of care
[2018-03-08] MEDS: Lidocaine 5% Patch T-DERMAL SCH (19:59)
[2018-03-08] MEDS: Divalproex 500 MG DR Tablet PO SCH (20:00)
[2018-03-09] MEDS: Divalproex 250 MG ER Tablet PO SCH (08:20)
[2018-03-09] MEDS: Lactobacillus Acidophilus/L. Spores Tablet PO SCH ×2 (08:21→15:18)
[2018-03-09] MEDS: Senna/Docusate Sodium 8.6/50 MG Tablet PO SCH ×2 (08:21→21:11)
[2018-03-09] MEDS: Sertraline 100 MG Tablet PO SCH (08:21)
[2018-03-09] MEDS: levETIRAcetam 250 MG Tablet PO SCH ×2 (08:22→21:11)
[2018-03-09] MEDS: Baclofen 10 MG Tablet PO SCH ×3 (08:22→21:11)
[2018-03-09] MEDS: Gabapentin 100 MG Capsule PO SCH ×2 (08:23→15:19)
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
[2018-03-09] MEDS ORDERED: Naproxen 500 MG Tablet PO ONE (09:54)
[2018-03-09] MEDS ORDERED: Divalproex 500 MG ER Tablet PO SCH (15:32)
--- NOTE | 2018-03-09 15:35 | P.PNPSY ---
Subjective Chief Complaint: Rounded on patient with Krystin MATHEWS. Patient is hard of hearing. Patient in bed and states he had a good night sleep. He is calm and per staff there are no behavioral concerns. Endorses no suicidal ideation. States that he is somewhat depressed but that he has a girlfriend who he cares about who lifts his spirits. He is aware of continued efforts to find placement. Mental Status Examination Appearance: Appropriate Consciousness: Alert Orientation: Person, Place, Date/Time, Situation Motor Activity: Normal gait Speech: Hesitant (Decreasing improving) Language: Adequate Fund of Knowledge: Inadequate (Improving) Attention and Concentration: Easily distracted Memory: Impaired Mood: Other ("I am alright") Affect: Other (Slight increased range and intensity) Thought Process & Associations: Linear, Other ([place]) Thought Content: Bizarre thinking (Improving) Hallucination Type: None (Denies) Delusion Type: Paranoid Suicidal Ideation: Yes (Denies today) Suicidal Plan: No (states he would never take his life as he would leave his girlfriend) Suicidal Intention: No (Vague) Homicidal Ideation: No Homicidal Plan: No Homicidal Intention: No Insight: Poor Judgment: Poor Assessment and Plan - Assessment (1) PTSD (post-traumatic stress disorder) Code(s): F43.10 - Post-traumatic stress disorder, unspecified Status: Acute (2) Major depressive disorder, recurrent, severe w/o psychotic behavior Code(s): F33.2 - Major depressive disorder, recurrent severe without psychotic features Status: Acute
[2018-03-09 17:34] LABS: Potassium 4.2 meq/L (3.5-5.1)
[2018-03-09] MEDS: Lidocaine 5% Patch T-DERMAL SCH (21:10)
[2018-03-09] MEDS: Divalproex 500 MG ER Tablet PO SCH (21:12)
[2018-03-10] MEDS: Baclofen 10 MG Tablet PO SCH ×2 (06:15→13:12)
[2018-03-10] MEDS: Sertraline 100 MG Tablet PO SCH (08:56)
[2018-03-10] MEDS: Gabapentin 100 MG Capsule PO SCH ×3 (08:56→18:07)
[2018-03-10] MEDS: Divalproex 500 MG ER Tablet PO SCH ×2 (08:56→20:35)
[2018-03-10] MEDS: Lactobacillus Acidophilus/L. Spores Tablet PO SCH ×3 (08:56→18:07)
[2018-03-10] MEDS: levETIRAcetam 250 MG Tablet PO SCH ×2 (08:56→20:35)
[2018-03-10] MEDS: Senna/Docusate Sodium 8.6/50 MG Tablet PO SCH ×2 (08:57→20:35)
--- NOTE | 2018-03-10 09:01 | P.PNPSY ---
Subjective Remarks: This is a late note dictated from my patient contact with the above patient on . I was unable to enter the note yesterday due to a pre-existing progress note in draft forearm still present. Patient seen yesterday in his room with floor staff, patient alert continues diffusely confused but no behavioral problems and compliant with medication. He denies suicidality homicidality voice or visions. Now it seems more accepting of referral back to [facility] if they will accept him or to other local placement. He states he has some hopes that his girlfriend might be able to drawing them at whatever facility he ultimately resides at for now continue treatment no change Review of Systems All other systems reviewed negative except as stated in HPI Mental Status Examination Appearance: Appropriate Consciousness: Alert Orientation: Person, Place, Date/Time, Situation Motor Activity: Normal gait Speech: Hesitant (Decreasing improving) Language: Adequate Fund of Knowledge: Inadequate (Improving) Attention and Concentration: Easily distracted Memory: Impaired Mood: Other ("I am alright") Affect: Other (Slight increased range and intensity) Thought Process & Associations: Linear, Other ([place]) Thought Content: Bizarre thinking (Improving) Hallucination Type: None (Denies) Delusion Type: Paranoid Suicidal Ideation: No (Denies today) Suicidal Plan: No (states he would never take his life as he would leave his girlfriend) Suicidal Intention: No (Vague) Homicidal Ideation: No Homicidal Plan: No Homicidal Intention: No Insight: Poor Judgment: Poor Assessment and Plan - Assessment (1) PTSD (post-traumatic stress disorder) Code(s): F43.10 - Post-traumatic stress disorder, unspecified Status: Acute (2) Major depressive disorder, recurrent, severe w/o psychotic behavior Code(s): F33.2 - Major depressive disorder, recurrent severe without psychotic features Status: Acute - Plan Plan: Patient continues somewhat confused somewhat feisty but redirectable. He continues to have difficulty with his hearing that may lead to some of the irritability but is coping with that and compliant with us. For now continue treatment Justification for Continued Inpatient Stay: At this time patient would decompensate if not placed in an appropriate level of care Discharge Planning: To be determined
--- NOTE | 2018-03-10 09:08 | P.PNPSY ---
Subjective Remarks: Patient seen in his room with nurse less, chart review, patient compliant medication. Patient continues alert some diffuse confusion somewhat "feisty" but overall cooperative and redirectable. He continues to deny suicidality voices or visions. He continues willing to find an SENIOR LIVING placement he would like to go back to [facility] we are checking on the availability of that facility. For now continue treatment Review of Systems All other systems reviewed negative except as stated in HPI Mental Status Examination Appearance: Appropriate Consciousness: Alert Orientation: Person, Place, Date/Time, Situation Motor Activity: Normal gait Speech: Hesitant (Decreasing improving) Language: Adequate Fund of Knowledge: Inadequate (Improving) Attention and Concentration: Easily distracted Memory: Impaired Mood: Other ("I am alright") Affect: Other (Slight increased range and intensity) Thought Process & Associations: Linear, Other ([place]) Thought Content: Bizarre thinking (Improving) Hallucination Type: None (Denies) Delusion Type: Paranoid Suicidal Ideation: No (Denies today) Suicidal Plan: No (states he would never take his life as he would leave his girlfriend) Suicidal Intention: No (Vague) Homicidal Ideation: No Homicidal Plan: No Homicidal Intention: No Insight: Poor Judgment: Poor Assessment and Plan - Assessment (1) PTSD (post-traumatic stress disorder) Code(s): F43.10 - Post-traumatic stress disorder, unspecified Status: Acute (2) Major depressive disorder, recurrent, severe w/o psychotic behavior Code(s): F33.2 - Major depressive disorder, recurrent severe without psychotic features Status: Acute - Plan Plan: Patient behavior appears to be stabilizing there is some diffuse confusion but is redirectable, compliant medications, denying suicidality continues to be willing to return to [facility] Justification for Continued Inpatient Stay: At this time patient would decompensate if not placed in an appropriate level of care Discharge Planning: To be determined
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
[2018-03-10] MEDS: Lidocaine 5% Patch T-DERMAL SCH (20:34)
[2018-03-10 22:13] LABS: Bacteria,Urine Many /hpf; Bilirubin,Urine Negative (Negative); Clarity,Urine Hazy (Clear); Color,Urine Yellow (Yellw/Straw); Glucose,Urine (UA) Negative (Negative); Leukocyte Esterase,Urine Moderate (Negative); Nitrite,Urine Positive (Negative); Specific Gravity,Urine 1.009 (1.002-1.035)
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
[2018-03-11] MEDS: Sertraline 100 MG Tablet PO SCH (08:32)
[2018-03-11] MEDS: Lactobacillus Acidophilus/L. Spores Tablet PO SCH ×3 (08:32→18:30)
[2018-03-11] MEDS: Gabapentin 100 MG Capsule PO SCH ×2 (08:36→14:25)
[2018-03-11] MEDS: levETIRAcetam 250 MG Tablet PO SCH ×2 (08:37→21:17)
[2018-03-11] MEDS: Senna/Docusate Sodium 8.6/50 MG Tablet PO SCH ×2 (08:38→21:17)
--- NOTE | 2018-03-11 10:25 | XR ---
EXAM DATE: 03/11/2018 10:22 AM EDT AGE/SEX: 62 years / Male INDICATIONS: Evaluate for pneumothorax, pneumonia and other communicable diseases. Pre- assisted [facility] ing/rehab placement. CLINICAL DATA: This is the patient's initial encounter. Patient reports that signs and symptoms have been present for 1 day and indicates a pain score of 0/10. MEDICAL/SURGICAL HISTORY: Chronic obstructive pulmonary disease. Hypertension. Seizures. Tons illectomy. Appendectomy. Cholecystectomy. COMPAR[place]: [facility] [place], 06/02/2017. . FINDINGS: A single AP view of the chest demonstrates the lungs to be symmetrically aerated without evidence of mass, infiltrate or effusion. The cardiomediastinal contours are unremarkable. Osseous structures a re intact. CONCLUSION: No acute cardiopulmonary disease. Electronically signed by: Delfino Alvarez MD 03/11/2018 10:24 AM EDT
[2018-03-11] MEDS: Divalproex 500 MG ER Tablet PO SCH ×2 (12:44→21:16)
[2018-03-11] MEDS: Baclofen 10 MG Tablet PO SCH ×2 (14:26→21:17)
--- NOTE | 2018-03-11 15:25 | P.PNPSY ---
Subjective Remarks: There continues to be some confusion and misunderstanding about patient's discharge and placement patient tolerating the delays and confusion fairly well. He is calm cooperative with me showing no significant behavioral issues with this, continues quite and compliant with medications Review of Systems All other systems reviewed negative except as stated in HPI Mental Status Examination Appearance: Appropriate Consciousness: Alert Orientation: Person, Place, Date/Time, Situation Motor Activity: Normal gait Speech: Hesitant (Decreasing improving) Language: Adequate Fund of Knowledge: Inadequate ([place]) Attention and Concentration: Easily distracted Memory: Impaired Mood: Other ("I am alright") Affect: Other (Slight increased range and intensity) Thought Process & Associations: Linear, Other ([place]) Thought Content: Bizarre thinking (Improving) Hallucination Type: None (Denies) Delusion Type: Paranoid Suicidal Ideation: No (Denies today) Suicidal Plan: No (states he would never take his life as he would leave his girlfriend) Suicidal Intention: No ([place]) Homicidal Ideation: No Homicidal Plan: No Homicidal Intention: No Insight: Poor Judgment: Poor Assessment and Plan - Assessment (1) PTSD (post-traumatic stress disorder) Code(s): F43.10 - Post-traumatic stress disorder, unspecified Status: Acute (2) Major depressive disorder, recurrent, severe w/o psychotic behavior Code(s): F33.2 - Major depressive disorder, recurrent severe without psychotic features Status: Acute - Plan Plan: Patient coping well with the laser and confusion related to placement. He continues somewhat mildly confused but overall no significant behavioral problems. For now continue treatment Justification for Continued Inpatient Stay: Placement to be made as soon as the details confusion was resolved Discharge Planning: To be determined
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
[2018-03-12] MEDS: Lactobacillus Acidophilus/L. Spores Tablet PO SCH ×2 (09:32→16:11)
[2018-03-12] MEDS: Gabapentin 100 MG Capsule PO SCH ×2 (09:32→16:11)
[2018-03-12] MEDS: levETIRAcetam 250 MG Tablet PO SCH ×2 (09:32→20:48)
[2018-03-12] MEDS: Sertraline 100 MG Tablet PO SCH (09:32)
[2018-03-12] MEDS: Senna/Docusate Sodium 8.6/50 MG Tablet PO SCH ×2 (09:33→20:48)
[2018-03-12] MEDS: Baclofen 10 MG Tablet PO SCH ×2 (16:11→21:40)
[2018-03-12] MEDS: Divalproex 500 MG ER Tablet PO SCH ×2 (16:11→20:47)
--- NOTE | 2018-03-12 18:51 | P.PNPSY ---
Subjective Chief Complaint: Rounded on patient with Krystin MATHEWS. Patient is hard of hearing. Patient in bed and states he had a good night sleep. He is calm and per staff there are no behavioral concerns. Endorses no suicidal ideation. States that he is somewhat depressed but that he has a girlfriend who he cares about who lifts his spirits. He is aware of continued efforts to find placement. Remarks: Patient was seen and case discussed with nursing. Patient is very hard of hearing which limits the interview. Patient became quite irritable because he thought I was mocking him during the interview. Insight remains quite poor. He seclusive to self and lays in bed throughout the day Mental Status Examination Appearance: Appropriate Consciousness: Alert Orientation: Person, Place, Date/Time, Situation Motor Activity: Normal gait Speech: Hesitant (Decreasing improving) Language: Adequate Fund of Knowledge: Inadequate (Improving) Attention and Concentration: Easily distracted Memory: Impaired Mood: Angry, Other ("I am alright") Affect: Irritable, Other (Slight increased range and intensity) Thought Process & Associations: Linear Thought Content: Bizarre thinking (Improving) Hallucination Type: None (Denies) Delusion Type: Paranoid Suicidal Ideation: No (Denies today) Suicidal Plan: No (states he would never take his life as he would leave his girlfriend) Suicidal Intention: No (Vague) Homicidal Ideation: No Homicidal Plan: No Homicidal Intention: No Insight: Poor Judgment: Poor Assessment and Plan - Assessment (1) PTSD (post-traumatic stress disorder) Code(s): F43.10 - Post-traumatic stress disorder, unspecified Status: Acute (2) Major depressive disorder, recurrent, severe w/o psychotic behavior Code(s): F33.2 - Major depressive disorder, recurrent severe without psychotic features Status: Acute - Plan Plan: Continue current treatment plan Justification for Continued Inpatient Stay: Patient would decompensate in a less restrictive setting
[2018-03-12] MEDS: Lidocaine 5% Patch T-DERMAL SCH (20:46)
[2018-03-13] MEDS: Baclofen 10 MG Tablet PO SCH ×3 (05:38→22:03)
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
--- NOTE | 2018-03-13 09:04 | P.DIET ---
Nutritional Evaluation Type of nutrition evaluation: initial Nutrition screening: [facility] [place] [facility] Screening comments: [facility] [place] [facility] 03/11 Malnutrition Objective - Diagnosis Bipolar Disorder - Objective [place] body weight: 78 kg % IBW: 109 Body Weight Used for Calculations: Actual (85kg) Energy Needs - Lower Range (kCal/kg): 25 Energy Needs - Upper Range (kCal/kg): 30 Lower Limit kCal/kg (kCals): 2,125 Upper Limit kCal/kg (kCals): 2,550 Lower Limit Protein Factor (Grams per Kg): 1.1 Upper Limit Protein Factor (Grams per Kg): 1.3 Lower Protein Needs (Protein): 94 Upper Protein Needs (Protein): 111 Fluid Factor (ml/kg): 30 Estimated Fluid Needs (ml): 2,550 Dietitian Reviewed in Medical Record: Current diet, Curent medications, Intake & Output, Labs, Medical history Diet Order: Regular Objective Comments: PMH: Cirrhosis, Chronic Pancreatitis, PTSD, Seizure, COPD, HTN, HLD, Hepatitis B & C, Bipolar Disorder Meds include: Lactulose, Keppra, Theragran, Seroquel, Zoloft Labs include: Triglycerides 194, Cholesterol 163, LDL 93, HDL 31.7 Last 03/07 Assessment Assessment: Pt at nutritional risk r/t dx. Pt admitted via [facility] Act for disruptive behavior. Pt's nutritional needs as assessed above. Pt is eating 50-100% most meals which is adequate at this time. Noted pt is pending d/c to SNF. Will sign off, please reconsult dietitian if needed.
[2018-03-13] MEDS: Divalproex 500 MG ER Tablet PO SCH ×2 (09:29→20:22)
[2018-03-13] MEDS: levETIRAcetam 250 MG Tablet PO SCH ×2 (09:30→20:23)
[2018-03-13] MEDS: Sertraline 100 MG Tablet PO SCH (09:30)
[2018-03-13] MEDS: Gabapentin 100 MG Capsule PO SCH ×4 (09:30→17:37)
[2018-03-13] MEDS: Senna/Docusate Sodium 8.6/50 MG Tablet PO SCH ×2 (09:30→20:23)
[2018-03-13] MEDS: Lactobacillus Acidophilus/L. Spores Tablet PO SCH ×4 (09:30→17:37)
--- NOTE | 2018-03-13 16:46 | P.PNPSY ---
Subjective Chief Complaint: Rounded on patient with Krystin RN. Patient is hard of hearing. Patient in bed and states he had a good night sleep. He is calm and per staff there are no behavioral concerns. Endorses no suicidal ideation. States that he is somewhat depressed but that he has a girlfriend who he cares about who lifts his spirits. He is aware of continued efforts to find placement. Remarks: Patient was seen and case discussed with nursing. Patient is sedated secondary to an ETO a couple of hours ago. Per nursing patient has been agitated and threw his breakfast tray. He is fixated on various things and is angry and entitled throughout the day. Mental Status Examination Appearance: Appropriate Consciousness: Alert Orientation: Person, Place, Date/Time, Situation Motor Activity: Normal gait Speech: Hesitant (Decreasing improving) Language: Adequate Fund of Knowledge: Inadequate (Improving) Attention and Concentration: Easily distracted Memory: Impaired Mood: Angry, Oppositional, Other ("I am alright") Affect: Irritable, Other (Slight increased range and intensity) Thought Process & Associations: Linear Thought Content: Bizarre thinking (Improving) Hallucination Type: None (Denies) Delusion Type: Paranoid Suicidal Ideation: No (Denies today) Suicidal Plan: No (states he would never take his life as he would leave his girlfriend) Suicidal Intention: No (Vague) Homicidal Ideation: No Homicidal Plan: No Homicidal Intention: No Insight: Poor Judgment: Poor Assessment and Plan - Assessment (1) PTSD (post-traumatic stress disorder) Code(s): F43.10 - Post-traumatic stress disorder, unspecified Status: Acute (2) Major depressive disorder, recurrent, severe w/o psychotic behavior Code(s): F33.2 - Major depressive disorder, recurrent severe without psychotic features Status: Acute - Plan Plan: Continue current treatment plan Justification for Continued Inpatient Stay: Patient would decompensate in a less restrictive setting
[2018-03-13] MEDS: Lidocaine 5% Patch T-DERMAL SCH ×2 (20:24→20:32)
[2018-03-14] MEDS: Baclofen 10 MG Tablet PO SCH ×2 (06:25→13:28)
[2018-03-14] MEDS: Senna/Docusate Sodium 8.6/50 MG Tablet PO SCH ×2 (08:42→20:52)
[2018-03-14] MEDS: Divalproex 500 MG ER Tablet PO SCH ×2 (08:42→20:53)
[2018-03-14] MEDS: Lactobacillus Acidophilus/L. Spores Tablet PO SCH ×3 (08:42→17:19)
[2018-03-14] MEDS: Gabapentin 100 MG Capsule PO SCH ×3 (08:42→17:19)
[2018-03-14] MEDS: Sertraline 100 MG Tablet PO SCH (08:43)
[2018-03-14] MEDS: levETIRAcetam 250 MG Tablet PO SCH ×2 (08:43→20:52)
--- NOTE | 2018-03-14 12:01 | P.PNPSY ---
Subjective Remarks: Patient seen with nurse Nakul, chart reviewed, patient compliant medication. Patient coping well with placement delays in complications. He is calm cooperative with me today Review of Systems All other systems reviewed negative except as stated in HPI Mental Status Examination Appearance: Appropriate Consciousness: Alert Orientation: Person, Place, Date/Time, Situation Motor Activity: Normal gait Speech: Hesitant (Decreasing improving) Language: Adequate Fund of Knowledge: Inadequate (Improving) Attention and Concentration: Easily distracted Memory: Impaired Mood: Angry, Oppositional, Other ("I am alright") Affect: Irritable, Other (Slight increased range and intensity) Thought Process & Associations: Linear Thought Content: Bizarre thinking (Improving) Hallucination Type: None (Denies) Delusion Type: Paranoid Suicidal Ideation: No (Denies today) Suicidal Plan: No (states he would never take his life as he would leave his girlfriend) Suicidal Intention: No (Vague) Homicidal Ideation: No Homicidal Plan: No Homicidal Intention: No Insight: Poor Judgment: Poor Assessment and Plan - Assessment (1) PTSD (post-traumatic stress disorder) Code(s): F43.10 - Post-traumatic stress disorder, unspecified Status: Acute (2) Major depressive disorder, recurrent, severe w/o psychotic behavior Code(s): F33.2 - Major depressive disorder, recurrent severe without psychotic features Status: Acute - Plan Plan: Patient continues calm cooperative compliant medication no significant behavioral problems. Continue to await placement Justification for Continued Inpatient Stay: At this time patient would decompensate if not placed in an appropriate level of care Discharge Planning: To be determined
[2018-03-14] MEDS: Lidocaine 5% Patch T-DERMAL SCH (20:54)
--- NOTE | 2018-03-15 10:12 | P.PNPSY ---
Subjective Remarks: Patient seen in his room with floor staff, patient is somewhat sedated did have an as needed yesterday evening for some anger outbursts. Staff states though that he is calmer today and more appropriate. Patient seen by me today he is arousable to calm continue the some difficulty with responses secondary to his difficulty hearing. Depakote blood level drawn on 03/11 is 75 for now continue medications no change continue to work on placement issues Review of Systems All other systems reviewed negative except as stated in HPI Mental Status Examination Appearance: Appropriate Consciousness: Alert Orientation: Person, Place, Date/Time, Situation Motor Activity: Normal gait Speech: Hesitant (Decreasing improving) Language: Adequate Fund of Knowledge: Inadequate (Improving) Attention and Concentration: Easily distracted Memory: Impaired Mood: Angry, Oppositional, Other ("I am alright") Affect: Irritable, Other (Slight increased range and intensity) Thought Process & Associations: Linear Thought Content: Bizarre thinking (Improving) Hallucination Type: None (Denies) Delusion Type: Paranoid Suicidal Ideation: No (Denies today) Suicidal Plan: No (states he would never take his life as he would leave his girlfriend) Suicidal Intention: No (Vague) Homicidal Ideation: No Homicidal Plan: No Homicidal Intention: No Insight: Poor Judgment: Poor Assessment and Plan - Assessment (1) PTSD (post-traumatic stress disorder) Code(s): F43.10 - Post-traumatic stress disorder, unspecified Status: Acute (2) Major depressive disorder, recurrent, severe w/o psychotic behavior Code(s): F33.2 - Major depressive disorder, recurrent severe without psychotic features Status: Acute - Plan Plan: Patient remains labile and at times but overall behaviors under control he is calm cooperative coping well with delays and placement Justification for Continued Inpatient Stay: At this time patient would decompensate if not placed in an appropriate level of care Discharge Planning: To be determined
[2018-03-15] MEDS: Divalproex 500 MG ER Tablet PO SCH (10:40)
[2018-03-15] MEDS: Senna/Docusate Sodium 8.6/50 MG Tablet PO SCH (10:40)
[2018-03-15] MEDS: levETIRAcetam 250 MG Tablet PO SCH (10:40)
[2018-03-15] MEDS: Sertraline 100 MG Tablet PO SCH (10:40)
[2018-03-15] MEDS: Lactobacillus Acidophilus/L. Spores Tablet PO SCH ×2 (10:42→14:50)
[2018-03-15] MEDS: Gabapentin 100 MG Capsule PO SCH ×2 (10:43→14:50)
[2018-03-15] MEDS: Baclofen 10 MG Tablet PO SCH (10:55)
--- NOTE | 2018-03-29 12:32 | P.DSPSY ---
Psychiatry Discharge Summary Inpatient Psychiatric care?: Yes Advance Directives: No Reason for Unknown:: Due to Patient Condition Mental Health Advance Directive: No Health Care Proxy: No - Admission Admission Date: February 23, 2018 04:25 - Admission Diagnosis (1) PTSD (post-traumatic stress disorder) Code(s): F43.10 - Post-traumatic stress disorder, unspecified (2) Major depressive disorder, recurrent, severe w/o psychotic behavior Code(s): F33.2 - Major depressive disorder, recurrent severe without psychotic features Brief History: Patient is a 62-year-old white male who comes here under [facility] act by a illegible signature from 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 Review of our EMR shows multiple prior visits with this gentleman. Patient seen screen in the ED medically cleared for here. Patient seen in the dayroom he is an [employer] with history of PTSD he acknowledges continued nightmares and flashbacks. He is also somewhat confused saying his memory is not as good as it used to be. There is some confusion as to where his last [facility] residency was he complains of his funds being miss use. When the people have been stealing his sandwiches. However he is able to show some focus with me. He acknowledges seeing service in [place]. Having bad dreams about that and memories about it. He does see a psychiatrist here in [facility] and is prescribed medication for this he also has a history of seizure disorder for which she is receiving Keppra. He is quite vague about any other past psychiatric history family history or medical issues in any event at this time patient does meet criteria for further inpatient psychiatric hospitalization observation and assessment. I will do first opinion request second opinion I feel he does have capacity at this time to sign for his medications we will continue medications per the med reconciliation including Seroquel and Keppra hope this be short stay and we can make some sense out of placement issues with this plan Tobacco Use In Past 30 Days: Yes How Often Do You Have a Drink Containing Alcohol: Never Hospital Course: Patient's hospital course was uneventful discharged plans became solidified patient was discharged to [facility] on 03/15. Continue medications as ordered. Patient denying suicidality voices or visions though remained somewhat irritable and mildly is Now - Discharge Discharge Date: 03/15/18 - Discharge Diagnosis (1) PTSD (post-traumatic stress disorder) Code(s): F43.10 - Post-traumatic stress disorder, unspecified Status: Acute Discharge Disposition: Assisted Living Facility - Discharge Instructions Discharge Diet: Regular Diet Activities You Can Perform: Regular- No Restrictions - Discharge Time <= 30 minutes Mental Status Examination Appearance: Appropriate Consciousness: Alert Orientation: Person, Place, Date/Time, Situation Motor Activity: Normal gait Speech: Hesitant (Decreasing improving) Language: Adequate Fund of Knowledge: Inadequate (Improving) Attention and Concentration: Easily distracted Memory: Impaired Mood: Angry, Oppositional, Other ("I am alright") Affect: Irritable, Other (Slight increased range and intensity) Thought Process & Associations: Linear Thought Content: Bizarre thinking (Improving) Hallucination Type: None (Denies) Delusion Type: Paranoid Suicidal Ideation: No (Denies today) Suicidal Plan: No (states he would never take his life as he would leave his girlfriend) Suicidal Intention: No (Vague) Homicidal Ideation: No Homicidal Plan: No Homicidal Intention: No Insight: Poor Judgment: Poor Discharge/Advance Care Plan - Results Vital Signs: Last Vital Signs Temp 97.5 F L 03/14/18 17:51 Pulse 84 03/14/18 17:51 Resp 18 03/14/18 17:51 BP 111/83 03/14/18 17:51 Pulse Ox 94 L 03/14/18 17:51 Lab Results: Laboratory Results Hemoglobin A1c 4.7 % (4.3-6.0) 02/24/18 10:30 Triglycerides 194 mg/dL (42-150) H 02/24/18 10:30 Cholesterol 163 mg/dL (120-200) 02/24/18 10:30 LDL Cholesterol, Calc 93 mg/dL (0-99) 02/24/18 10:30 HDL Cholesterol 31.7 mg/dL (40.0-60.0) L 02/24/18 10:30 TSH 2.310 uIU/mL (0.358-3.740) 02/23/18 01:17 Urine Culture Comments Culture indicated 03/10/18 20:55 Valproic Acid 75 mcg/mL (50-100) 03/05/18 06:37 Summary of Procedures: None done Imaging: ITS Impressions Hip X-Ray 02/24/18 00:00 CONCLUSION: No acute left hip abnormality is identified. There is stable changes following prior left femoral neck fracture post-ORIF. Mild left hip joint osteoarthritis is present. Chest X-Ray 03/11/18 09:57 CONCLUSION: No acute cardiopulmonary disease. Pending Results: None - Medications Number of antipsychotic medications at discharge: 1 - Discharge Care Plan Goals to Promote Your Health: * To prevent worsening of your condition and complications * To maintain your health at the optimal level Directions to Meet Your Goals: Take your medications as prescribed Follow your dietary instruction Follow activity as directed Keep your appointments as scheduled Take your immunizations and boosters as scheduled If your symptoms worsen call your PCP, if no PCP go to Urgent Care Center or Emergency Room For 08/03 questions related to your inpatient stay or results of tests pending at discharge, please contact Dr. Eder Pina MD at Smoking is Dangerous to Your Health. Avoid second hand smoking
== END 2018-03-15 15:30 ==
LOC: NEDAMB 20:40 → NEDA 02-23 04:25 → H250 02-23 05:06 → H4EA 02-24 12:24 → UNDODISIN 03-11 15:45 → H4EA 03-14 15:58
PROVIDERS: ADMIT Psychiatry & Neurology Psychiatry; ATTEND Psychiatry & Neurology Psychiatry
DX: B96.20 Unspecified Escherichia coli [E. coli] as the cause of diseases classified elsewhere; D69.59 Other secondary thrombocytopenia; F33.3 Major depressive disorder, recurrent, severe with psychotic symptoms; K86.0 Alcohol-induced chronic pancreatitis; G40.909 Epilepsy, unspecified, not intractable, without status epilepticus; F43.10 Post-traumatic stress disorder, unspecified; E78.5 Hyperlipidemia, unspecified; J44.9 Chronic obstructive pulmonary disease, unspecified; M10.9 Gout, unspecified; Y90.0 Blood alcohol level of less than 20 mg/100 ml; N39.0 Urinary tract infection, site not specified; K74.60 Unspecified cirrhosis of liver; H91.90 Unspecified hearing loss, unspecified ear; F10.10 Alcohol abuse, uncomplicated; I10 Essential (primary) hypertension; M16.12 Unilateral primary osteoarthritis, left hip; R45.851 Suicidal ideations; F51.5 Nightmare disorder

== ENCOUNTER 2018-03-15 17:34 | Inpatient (IN) ==
[2018-03-15 21:12] LABS: Baso % (Auto) 0.3 % (0.0-2.0); Eos # (Auto) 0.1 th/mm3 (0.0-0.4); Eos % (Auto) 1.7 % (0.0-4.0); Hematocrit 39.2 % (39.0-51.0); Hemoglobin 13.2 gm/dL (13.0-17.0); Lymph # (Auto) 1.7 th/mm3 (1.0-4.8); Lymph % (Auto) 40.9 % (9.0-44.0); Mean Corpuscular HGB Conc 33.5 % (32.0-36.0); Mean Corpuscular Hemoglobin 29.1 pg (27.0-34.0); Mean Corpuscular Volume 86.9 fL (80.0-100.0); Mean Platelet Volume 7.9 fL (7.0-11.0); Mono # (Auto) 0.5 th/mm3 (0.0-0.9); Mono % (Auto) 11.1 % (0.0-8.0); Neut # (Auto) 1.9 th/mm3 (1.8-7.7); Platelet Count 110 th/mm3 (150-450); Red Blood Count 4.52 mil/mm3 (4.50-5.90); Red Cell Distribution Width 13.9 % (11.6-17.2); White Blood Count 4.1 th/mm3 (4.0-11.0)
[2018-03-15 21:52] LABS: Amphetamine Screen,Urine Neg (Neg); Barbiturate Screen,Urine Neg (Neg); Cannabinoid Screen,Urine Neg (Neg); Cocaine Screen,Urine Neg (Neg)
[2018-03-15 22:10] LABS: Opiate Screen,Urine Neg (Neg)
--- NOTE | 2018-03-15 23:35 | ED ---
HPI General Chief complaint: Psychiatric Symptoms Stated complaint: Psych eval Time Seen by Provider: 03/15/18 18:08 Source: patient Mode of arrival: ambulatory Limitations: other (uncooperative) History of Present Illness HPI narrative: Patient is a 62-year-old male who comes in because he refused to get out of the car at the [facility] he was brought 2. He was discharged today from psychiatry. Patient is uncooperative and angry. He does not provide any history. Related Data Home Medications Medication Instructions Recorded Confirmed Lactobacillus acidophilus 100 mg PO AC 02/22/18 03/15/18 [Acidophilus] acetaminophen [Tylenol] 650 mg PO Q6H PRN 02/22/18 03/15/18 calcium carbonate [Calcium 600] 600 mg PO BID 02/22/18 03/15/18 Previous Rx's Medication Instructions Recorded gabapentin 100 mg PO TID #90 cap 02/27/18 lidocaine [Lidoderm] 1 patch TRANSDERMAL DAILY@2000 #30 02/27/18 ea baclofen 15 mg PO Q8HR #90 tab 03/10/18 divalproex [Depakote] 500 mg PO HS #30 tab 03/10/18 gabapentin 200 mg PO TID #90 cap 03/10/18 hydroxyzine pamoate 50 mg PO TID PRN #90 cap 03/10/18 ibuprofen 600 mg PO Q6H PRN tab 03/10/18 levetiracetam [Keppra] 250 mg PO Q12H #60 tab 03/10/18 multivitamin with folic acid 1 tab PO DAILY #0 tab 03/10/18 [Thera] quetiapine [Seroquel] 600 mg PO HS #60 tab 03/10/18 sertraline 200 mg PO DAILY #60 tab 03/10/18 sulfamethoxazole-trimethoprim 1 tab PO Q12HR 7 Days #14 tab 03/11/18 Allergies Allergy/AdvReac Type Severity Reaction Status Date / Time No Known Allergies Allergy Uncoded 11/13/16 20:22 Review of Systems ROS Unobtainable other (uncooperative, psychosis) PMFSH Medical History Medical History Cirrhosis (Acute) PTSD (post-traumatic stress disorder) (Acute) Pancreatitis, chronic (Acute) Seizure (Acute) Surgical History Surgical History No history of previous surgery (Acute) Social History Social History Substance History: Past History Second Hand Smoke Exposure: Yes Smoking Status: Refused to answer Tobacco Type: Cigarettes How Often Do You Have a Drink Containing Alcohol: Unable to Obtain Recent Travel in [facility] within the Last 8 Weeks: No Recent Out of Country Travel within the Last 8 Weeks: No Immunization History Tetanus Immunization: Unable to Assess Hx Influenza Vaccine This Season: Unable to Assess Exam Narrative Exam Narrative: GENERAL: Awake and alert, no acute distress. SKIN: Focused skin assessment warm/dry. HEAD: Atraumatic. Normocephalic. EYES: Pupils equal and round. No scleral icterus. ENT: Mucous membranes pink and moist. NECK: Trachea midline. No JVD. CARDIOVASCULAR: Regular rate and rhythm. No murmur appreciated. RESPIRATORY: No accessory muscle use. Clear to auscultation. Breath sounds equal bilaterally. GASTROINTESTINAL: Abdomen soft, non-tender, nondistended. MUSCULOSKELETAL: No obvious deformities. No clubbing. No cyanosis. No edema. NEUROLOGICAL: Awake and alert. No obvious cranial nerve deficits. Motor grossly within normal limits. Normal speech. PSYCHIATRIC: Appropriate mood and affect; insight and judgment normal. Course Reevaluation(s) Reevaluation #1: Patient seen and cleared by psychiatry for discharge to [facility]. Time: 14:00 Initial Documented Vital Signs Temperature 98.4 F 03/15/18 17:58 Pulse Rate 80 03/15/18 17:58 Respiratory Rate 16 03/15/18 17:58 Blood Pressure 140/85 03/15/18 17:58 Pulse Oximetry 99 03/15/18 17:58 Last Documented Vital Signs Temperature 97.8 F 03/16/18 07:00 Pulse Rate 69 03/16/18 07:00 Respiratory Rate 16 03/16/18 07:00 Blood Pressure 138/81 03/16/18 07:00 Pulse Oximetry 98 03/16/18 07:00 Medical Decision Making MDM Narrative Medical decision making narrative: Patient is a 62-year-old male who comes in because of psychiatric reasons. Patient is uncooperative, yells obscenities when asked questions. He was just discharged from psychiatry today. Labs last drawn the beginning of February. These were repeated. Patient given Geodon and Ativan. He will be medically cleared for psychiatric evaluation. Differential Diagnosis Differential Diagnosis: Psychosis versus dementia versus electrolyte abnormality Medical Records Medical records reviewed: Yes I reviewed the patient's medical records. Lab Data Result diagrams: 03/15/18 20:37 03/15/18 23:07 Lab Results 03/15/18 03/15/18 03/15/18 Range/Units 20:37 21:15 23:07 WBC 4.1 (4.0-11.0) th/mm3 RBC 4.52 (4.50-5.90) mil/mm3 Hgb 13.2 (13.0-17.0) gm/dL Hct 39.2 (39.0-51.0) % MCV 86.9 (80.0-100.0) fL MCH 29.1 (27.0-34.0) pg MCHC 33.5 (32.0-36.0) % RDW 13.9 (11.6-17.2) % Plt Count 110 L (150-450) th/mm3 MPV 7.9 (7.0-11.0) fL Neut % (Auto) 46.0 (16.0-70.0) % Lymph % (Auto) 40.9 (9.0-44.0) % [place] % (Auto) 11.1 H (0.0-8.0) % Eos % (Auto) 1.7 (0.0-4.0) % Baso % (Auto) 0.3 (0.0-2.0) % Neut # (Auto) 1.9 (1.8-7.7) th/mm3 Lymph # (Auto) 1.7 (1.0-4.8) th/mm3 [place] # (Auto) 0.5 (0.0-0.9) th/mm3 Eos # (Auto) 0.1 (0.0-0.4) th/mm3 Baso # (Auto) 0.0 (0.0-0.2) th/mm3 WBC Differential . Differential Comment Auto diff final Sodium 137 (136-145) meq/L Potassium 4.6 (3.5-5.1) meq/L Chloride 104 (98-107) meq/L Carbon Dioxide 25.4 (21.0-32.0) meq/L Anion Gap 8 (5-15) meq/L BUN 39 H (7-18) mg/dL Creatinine 1.34 H (0.60-1.30) mg/dL Estimated GFR 54 L (>89) mL/min Random Glucose 81 (74-106) mg/dL Calcium 9.2 (8.5-10.1) mg/dL Total Bilirubin 0.3 (0.2-1.0) mg/dL AST 63 H (15-37) U/L ALT 54 (12-78) U/L Alkaline Phosphatase 69 (45-117) U/L Total Protein 9.7 H (6.4-8.2) g/dL Albumin 3.8 (3.4-5.0) g/dL TSH 6.670 H (0.358-3.740) uIU/mL Urine Opiates Screen Neg (Neg) Ur Barbiturates Screen Neg (Neg) Ur Amphetamines Screen Neg (Neg) U Benzodiazepines Scrn Neg (Neg) Urine Cocaine Screen Neg (Neg) U Cannabinoids Screen Neg (Neg) Serum Alcohol Less than 3 (0-5) mg/dL Discharge Plan Discharge Disposition Patient Disposition: 30 Still Patient Discharge Condition Condition: Stable Discharge Details Diagnosis: Acute psychosis Physicians Team ED Provider: Dania Jimenez Primary Care Provider: [facility],Physician 's Rxs /Orders / Referrals /Forms Prescriptions: No Action calcium carbonate [Calcium 600] 600 mg calcium (1,500 mg) Tablet 600 mg PO BID RF: 0 Lactobacillus acidophilus [Acidophilus] Capsule 100 mg PO AC RF: 0 acetaminophen [Tylenol] 325 mg Capsule 650 mg PO Q6H PRN (Reason: Pain, Mild) RF: 0 lidocaine [Lidoderm] 5 % Adhesive Patch,Medicated 1 patch Transdermal DAILY@2000 Qty: 30 RF: 0 gabapentin 100 mg Capsule 100 mg PO TID Qty: 90 RF: 0 baclofen 10 mg Tablet 15 mg PO Q8HR Qty: 90 RF: 0 gabapentin 100 mg Capsule 200 mg PO TID Qty: 90 RF: 1 ibuprofen 600 mg Tablet 600 mg PO Q6H PRN (Reason: Pain 6-10) RF: 0 multivitamin with folic acid [Thera] 400 mcg Tablet 1 tab PO DAILY Qty: 0 RF: 0 quetiapine [Seroquel] 300 mg Tablet 600 mg PO HS Qty: 60 RF: 0 sertraline 100 mg Tablet 200 mg PO DAILY Qty: 60 RF: 0 hydroxyzine pamoate 50 mg Capsule 50 mg PO TID PRN (Reason: Anxiety) Qty: 90 RF: 0 divalproex [Depakote] 500 mg Tablet,Delayed Release (Dr/Ec) 500 mg PO HS Qty: 30 RF: 0 levetiracetam [Keppra] 250 mg Tablet 250 mg PO Q12H Qty: 60 RF: 0 sulfamethoxazole-trimethoprim 800-160 mg Tablet 1 tab PO Q12HR 7 Days Qty: 14 RF: 0 Discharge Instructions Patient Printed Instructions: Dementia (ED) Status ED Status: Medically Cleared
[2018-03-15 23:46] LABS: Alanine Aminotransferase 54 U/L (12-78); Albumin 3.8 g/dL (3.4-5.0); Anion Gap 8 meq/L (5-15); Aspartate Aminotransferase 63 U/L (15-37); Blood Urea Nitrogen 39 mg/dL (7-18); Calcium 9.2 mg/dL (8.5-10.1); Carbon Dioxide 25.4 meq/L (21.0-32.0); Chloride 104 meq/L (98-107); Glomerular Filtration Rate 54 mL/min (>89); Glucose,Random 81 mg/dL (74-106); Potassium 4.6 meq/L (3.5-5.1)
[2018-03-15 23:47] LABS: Sodium 137 meq/L (136-145)
[2018-03-15 23:55] LABS: Alkaline Phosphatase 69 U/L (45-117); Total Protein 9.7 g/dL (6.4-8.2)
[2018-03-16] MEDS ORDERED: Aluminum/Magnesium/Simethacone Susp 30 ML UDC PO PRN (16:35)
--- NOTE | 2018-03-16 17:29 | ED ---
HPI - Psych - General Source: patient Mode of arrival: ambulatory Limitations: no limitations - History of Present Illness MD complaint: altered mental status Onset (ago): day(s) Duration: intermittent History of same: Yes Relieving factors: none Exacerbating factors: none Associated psychiatric symptoms: none Associated symptoms: denies other symptoms - General Chief Complaint: Psychiatric Symptoms Stated Complaint: Psych eval Time Seen by Provider: 03/16/18 13:00 - History of Present Illness HPI Narrative: This is a 62 year-old, single, male who presents voluntarily to this department after a failed discharge. He was discharged yesterday from inpatient and transported to the [facility] where he refused to get out of the vehicle. They then transported him back to the ED as a failed discharge. Reviewed electronic medical records and discussed case with staff. Patient's evaluation was performed in his room in the main ED. He presents as grossly demented and is a poor historian. When asked why he wouldn't get out of the car , he responds, "I don't know what you're talking about". We repeated this cycle several times with me explaining what information I was attempting to gather and him repeating, "I don't know what you're talking about". He does not appear to be internally stimulated nor is there any indication of thought blocking. Patient does not appear psychotic nor manic. (Geno Carroll) - Related Data Home Medications Medication Instructions Recorded Confirmed Lactobacillus acidophilus 100 mg PO AC 02/22/18 03/15/18 [Acidophilus] acetaminophen [Tylenol] 650 mg PO Q6H PRN 02/22/18 03/15/18 calcium carbonate [Calcium 600] 600 mg PO BID 02/22/18 03/15/18 Previous Rx's Medication Instructions Recorded gabapentin 100 mg PO TID #90 cap 02/27/18 lidocaine [Lidoderm] 1 patch TRANSDERMAL DAILY@1999 #30 02/27/18 ea baclofen 15 mg PO Q8HR #90 tab 03/10/18 divalproex [Depakote] 500 mg PO HS #30 tab 03/10/18 gabapentin 200 mg PO TID #90 cap 03/10/18 hydroxyzine pamoate 50 mg PO TID PRN #90 cap 03/10/18 ibuprofen 600 mg PO Q6H PRN tab 03/10/18 levetiracetam [Keppra] 250 mg PO Q12H #60 tab 03/10/18 multivitamin with folic acid 1 tab PO DAILY #0 tab 03/10/18 [Thera] quetiapine [Seroquel] 600 mg PO HS #60 tab 03/10/18 sertraline 200 mg PO DAILY #60 tab 03/10/18 sulfamethoxazole-trimethoprim 1 tab PO Q12HR 7 Days #14 tab 03/11/18 Allergies Allergy/AdvReac Type Severity Reaction Status Date / Time No Known Allergies Allergy Uncoded 11/13/16 20:22 PMFSH - History History Provided By: Medical Record - Medical History Medical History: Medical History (Last Reviewed 03/16/18 @ 17:23 by CHRISTIAN Wilcox) Cirrhosis PTSD (post-traumatic stress disorder) Pancreatitis, chronic Seizure - Surgical History Surgical History: Surgical History (Last Reviewed 03/16/18 @ 17:23 by CHRISTIAN Wilcox) No history of previous surgery - Tobacco History Second Hand Smoke Exposure: Yes Smoking Status: Refused to answer Tobacco Type: Cigarettes - Alcohol History How Often Do You Have a Drink Containing Alcohol: Unable to Obtain - Substance Use History Substance History: Past History - Travel History Recent Travel in the USA Within the Last 8 Weeks: No Recent Travel Out of the Country Within the Last 8 Weeks: No - Immunization History Tetanus Immunization: Unable to Assess Hx Influenza Vaccine This Season: Unable to Assess Psychiatric History - Psychiatric History Psychiatric Treatment History: History of Psychiatric Treatment History of Inpatient Treatment: Yes Firearms in Home: No - Psychiatric History Patient was discharged from this facility yesterday. (Geno Carroll) Physical Exam - General Limitations: other (uncooperative) General appearance: alert - Head Head exam: atraumatic - Expanded Neurological Exam Eye Opening: Spontaneous Verbal Response: Confused Motor Response: Obey commands Glascow Coma Scale Total: 14 Mental Status Examination Appearance: Disheveled Consciousness: Alert Orientation: Person Motor Activity: Other (in bed) Speech: Unremarkable Language: Adequate Fund of Knowledge: Poor Attention and Concentration: Easily distracted Memory: Impaired Mood: Appropriate, Good Affect: Appropriate, Euthymic Thought Process & Associations: Other (unable to assess) Thought Content: Other (unable to assess) Hallucination Type: None (does not appear to be experiencing) Delusion Type: None Suicidal Ideation: No Suicidal Plan: No Suicidal Intention: No Homicidal Ideation: No Homicidal Plan: No Homicidal Intention: No Insight: Poor Judgment: Poor Initial Documented Vital Signs Temperature 98.4 F 03/15/18 17:58 Pulse Rate 80 03/15/18 17:58 Respiratory Rate 16 03/15/18 17:58 Blood Pressure 140/85 03/15/18 17:58 Pulse Oximetry 99 03/15/18 17:58 Last Documented Vital Signs Temperature 97.9 F 03/16/18 10:00 Pulse Rate 72 03/16/18 10:00 Respiratory Rate 17 03/16/18 10:00 Blood Pressure 144/85 H 03/16/18 10:00 Pulse Oximetry 99 03/16/18 10:00 MDM - Psych - Lab Data Result diagrams: 03/15/18 20:37 03/15/18 23:07 - [facility] Narrative Medical decision making narrative: This patient is being considered a failed discharge and is to be readmitted for further discharge planning. He will be admitted to a locked inpatient psychiatric unit. (Geno Carroll) - Lab Data Lab Results 03/15/18 03/15/18 03/15/18 Range/Units 20:37 21:15 23:07 WBC 4.1 (4.0-11.0) th/mm3 RBC 4.52 (4.50-5.90) mil/mm3 Hgb 13.2 (13.0-17.0) gm/dL Hct 39.2 (39.0-51.0) % MCV 86.9 (80.0-100.0) fL MCH 29.1 (27.0-34.0) pg MCHC 33.5 (32.0-36.0) % RDW 13.9 (11.6-17.2) % Plt Count 110 L (150-450) th/mm3 MPV 7.9 (7.0-11.0) fL Neut % (Auto) 46.0 (16.0-70.0) % Lymph % (Auto) 40.9 (9.0-44.0) % [place] % (Auto) 11.1 H (0.0-8.0) % Eos % (Auto) 1.7 (0.0-4.0) % Baso % (Auto) 0.3 (0.0-2.0) % Neut # (Auto) 1.9 (1.8-7.7) th/mm3 Lymph # (Auto) 1.7 (1.0-4.8) th/mm3 [place] # (Auto) 0.5 (0.0-0.9) th/mm3 Eos # (Auto) 0.1 (0.0-0.4) th/mm3 Baso # (Auto) 0.0 (0.0-0.2) th/mm3 WBC Differential . Differential Comment Auto diff final Sodium 137 (136-145) meq/L Potassium 4.6 (3.5-5.1) meq/L Chloride 104 (98-107) meq/L Carbon Dioxide 25.4 (21.0-32.0) meq/L Anion Gap 8 (5-15) meq/L BUN 39 H (7-18) mg/dL Creatinine 1.34 H (0.60-1.30) mg/dL Estimated GFR 54 L (>89) mL/min Random Glucose 81 (74-106) mg/dL Calcium 9.2 (8.5-10.1) mg/dL Total Bilirubin 0.3 (0.2-1.0) mg/dL AST 63 H (15-37) U/L ALT 54 (12-78) U/L Alkaline Phosphatase 69 (45-117) U/L Total Protein 9.7 H (6.4-8.2) g/dL Albumin 3.8 (3.4-5.0) g/dL TSH 6.670 H (0.358-3.740) uIU/mL Urine Opiates Screen Neg (Neg) Ur Barbiturates Screen Neg (Neg) Ur Amphetamines Screen Neg (Neg) U Benzodiazepines Scrn Neg (Neg) Urine Cocaine Screen Neg (Neg) U Cannabinoids Screen Neg (Neg) Serum Alcohol Less than 3 (0-5) mg/dL
[2018-03-16] MEDS: Calcium Carbonate 500 MG Tablet PO SCH (21:36)
[2018-03-17] MEDS ORDERED: Bisacodyl 10 MG Supp RECTAL PRN (08:12)
[2018-03-17] MEDS ORDERED: Aluminum/Magnesium/Simethacone Susp 30 ML UDC PO PRN (08:12)
[2018-03-17] MEDS ORDERED: ACETAMINOPHEN 650 MG PO PRN (08:15)
[2018-03-17] MEDS: Calcium Carbonate 500 MG Tablet PO SCH ×2 (08:38→20:25)
[2018-03-17] MEDS: Gabapentin 100 MG Capsule PO SCH ×3 (08:38→17:58)
[2018-03-17 09:08] LABS: Calcium 9.4 mg/dL (8.5-10.1); Carbon Dioxide 26.4 meq/L (21.0-32.0); Potassium 3.9 meq/L (3.5-5.1)
[2018-03-17 09:11] LABS: Chol/HDL Ratio 4.98 Ratio; HDL Cholesterol 41.7 mg/dL (40.0-60.0)
--- NOTE | 2018-03-17 09:53 | P.HPPSY ---
Provisional Diagnosis Admission Date: March 16, 2018 16:34 [place] I.: PTSD Competence Certification of Person's Competence To Provide Express and Informed Consent I have personally examined Pardeep Peters, a person being served at [facility] on, March 17, 2018 0942. Express and informed consent means consent voluntarily given in writing, by a competent person, after sufficient explanation and disclosure of the subject matter involved to enable the person to make a knowing and willful decision without any element of force, fraud, deceit, duress, or other form of constraint or coercion. This person is 18 years of age or older, is not now known to be incompetent to consent to treatment with a guardian advocate, and does not have a health care surrogate or proxy currently making medical treatment decisions. I have found this person to be one of the following: [xxx] Competent to provide express and informed consent, as defined above, for voluntary admission to this facility and is competent to provide express and informed consent for treatment. He/she has the consistent capacity to make well reasoned, willful, and knowing decisions concerning his or her medical or mental health treatment. The person fully and consistently understands the purpose of the admission for examination/placement and is fully capable of personally exercising all rights assured under [place] Incompetent to provide express and informed consent to voluntary admission, and this is incompetent to provide express and informed consent to treatment. The person must be transferred to involuntary status and a petition for a guardian advocate filed with the Circuit Court. [] Refusing to provide express and informed consent to voluntary admission but is competent to provide express and informed consent for treatment. The person must be discharged or transferred to involuntary status. Form shall be completed within 24 hours of a person's arrival at the receiving facility and filed in the clinical record of each person: 1. Admitted on a voluntary basis 2. Permitted to provide express and informed consent to his/her own treatment 3. Allowed to transfer from involuntary to voluntary status 4. Prior to permitting a person to consent to his or her own treatment after having been previously found incompetent to consent to treatment. History of Present Illness Capacity: Has capacity History of Present Illness: Patient is a 62-year-old white male who was discharged from here 2 days ago after an extended stay related to depression some confusion and PTSD symptoms along with relationship issues and placement issues. He was discharged late in the afternoon and appears to be 03/15 to go to [facility]. It appears when he got to that facility he became somewhat abstinent about not getting out of the vehicle. Becoming more more angry and belligerent leading to him being returned here to [facility]. Patient was seen by the nurse practitioner was felt to be a failed discharge though perhaps there is some behavioral issues also involved. In any event felt at that late in the afternoon that any attempt to transfer him back to the [facility] will been disastrous. Thus we felt was the safest option at that time to rehospitalize him admitted him the psychiatric unit to continue to work on placement issues and to perhaps adjust the discharge plans to better achieve success in the discharge. Patient seen by me today. He remains somewhat feisty but overall cooperative. It appears his main concern was the smoking policy at [facility]. We will reassure them that smoking was allowing outside of the buildings. This seemed to appease him. At this time I feel we need to continue this admission to verify that [facility] will allow him another chance. Or we need to find him another placement. At this time is willing to stay voluntarily to allow us the opportunity. Thus I will allow him to remain on a voluntary status at this point in time. We will continue all his existing medications. And consultations. He denies suicidality homicidality. He does deny voices at this time. Thus we will continue patient continue with his admitting diagnosis also - Inpatient Certification I certify that the inpatient services were ordered in accordance with Medicare regulations governing the order. This includes certification that hospital inpatient services are reasonable and necessary and in the case of services not specified as inpatient-only under 42 CFR 419.22(n), that they are appropriately provided as inpatient services in accordance to with the 2-midnight benchmark under 43 CFR 412.3(e) I certify that inpatient psychiatric hospital services are medically necessary. Evaluation and treatment and/or diagnostic testing are expected to improve the patient's condition. The patient needs on a daily basis, active treatment furnished directly by or requiring the supervision of inpatient psychiatric facility personnel. Estimated Total Length of Stay (Days): 7 Plans for Post Hospital Care: Not yet determined Review of Systems All other systems reviewed negative except as stated in HPI [facility] - History History Provided By: Patient, Medical Record - Medical History Medical History: Medical History (Last Reviewed 03/16/18 @ 17:23 by CHRISTIAN Wilcox) Cirrhosis PTSD (post-traumatic stress disorder) Pancreatitis, chronic Seizure - Surgical History Surgical History: Surgical History (Last Reviewed 03/16/18 @ 17:23 by CHRISTIAN Wilcox) No history of previous surgery - Tobacco History Second Hand Smoke Exposure: No Tobacco Use In Past 30 Days: Yes Smoking Status: Current every day smoker Tobacco Type: Cigarettes - Alcohol History How Often Do You Have a Drink Containing Alcohol: Never - Substance Use History Substance History: No History of Abuse - Travel History Recent Travel in the [place] Within the Last 8 Weeks: No Recent Travel Out of the Country Within the Last 8 Weeks: No - Immunization History Tetanus Immunization: Unable to Assess Hx Influenza Vaccine This Season: Yes Quality Measures - Psychiatric History 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 trauma history: Patient history of PTSD Violence risk to others in the last 6 months: Low Violence risk to self in the last 6 months: Low - Substance Abuse History Drug or alcohol use in the past 12 months: Patient denies - Patient Strengths Patient's strengths (minimum of 2): Patient verbal able access healthcare Medications and Allergies Active Medications: Active Medications Acetaminophen (Tylenol) 650 mg PO Q4H PRN PRN Reason: Pain 1-5 or Temp >101F Al Hydrox/Mg Hydrox/Simethicone (Mag-Al Plus Susp Liq) 30 ml PO Q6H PRN PRN Reason: DYSPEPSIA Al Hydroxide/Mg Hydroxide (Milk Of Magnesia Liq) 30 ml PO Q12H PRN PRN Reason: Mild Constipation Baclofen (Lioresal) 15 mg PO Q8HR [facility] Bisacodyl (Dulcolax Supp) 10 mg RECTAL DAILY PRN PRN Reason: SEVERE CONSITIPATION Diphenhydramine HCl (Benadryl) 50 mg PO HS PRN PRN Reason: INSOMNIA Divalproex Sodium (Depakote Dr) 500 mg PO HS [facility] Gabapentin (Neurontin) 100 mg PO TID [facility] Last Admin: 03/17/18 08:38 Dose: 100 mg Hydroxyzine HCl (Atarax) 50 mg PO Q6H PRN PRN Reason: ANXIETY Hydroxyzine Pamoate (Vistaril) 50 mg PO TID PRN PRN Reason: Anxiety Lactulose (Lactulose Liq) 30 ml PO DAILY PRN PRN Reason: SEVERE CONSITIPATION Levetiracetam (Keppra) 250 mg PO Q12H [facility] Lidocaine HCl (Lidoderm 5% Patch.12 Hr) 1 patch T-DERMAL DAILY@2000 [facility] Multivitamins (Theragran) 1 tab PO DAILY [facility] Non-Formulary Medication (Lactobacillus Acidophilus [Acidophilus]) 100 mg PO AC [facility] Patch Removal (Remove Old Patch) 1 each T-DERMAL DAILY@0800 [facility] Quetiapine Fumarate (Seroquel) 600 mg PO HS [facility] Senna/Docusate Sodium (Leanne-Colace) 1 tab PO BID [facility] Sennosides (Senokot) 17.2 mg PO Q12H PRN PRN Reason: Moderate Constipation Sertraline HCl (Zoloft) 200 mg PO DAILY [facility] Trimethoprim/Sulfamethoxazole (Bactrim Ds) 1 tab PO Q12HR [facility] Allergies Allergy/AdvReac Type Severity Reaction Status Date / Time No Known Allergies Allergy Uncoded 11/13/16 20:22 Home Medications Medication Instructions Recorded Confirmed Type Lactobacillus acidophilus 100 mg PO AC 02/22/18 03/15/18 History [Acidophilus] acetaminophen [Tylenol] 650 mg PO Q6H PRN 02/22/18 03/15/18 History calcium carbonate [Calcium 600] 600 mg PO BID 02/22/18 03/15/18 History Results - Labs CBC & Chem 7: 03/15/18 20:37 03/17/18 08:08 Labs: Laboratory Results - last 24 hr 03/17/18 08:08 Sodium 140 Potassium 3.9 Chloride 105 Carbon Dioxide 26.4 Anion Gap 9 BUN 30 H Creatinine 1.16 Estimated GFR 64 L Random Glucose 96 Calcium 9.4 Triglycerides 167 H Cholesterol 208 H LDL Cholesterol, Calc 133 H HDL Cholesterol 41.7 Cholesterol/HDL Ratio 4.98 Exam Vital signs: Vital Signs 03/16/18 10:00 03/16/18 17:15 Temperature 97.9 F 97.8 F Pulse Rate 72 86 Respiratory Rate 17 16 Blood Pressure 144/85 H 133/82 Pulse Oximetry 99 Intake & Output 03/16/18 03/17/18 03/17/18 18:59 06:59 18:59 Weight 79.37 kg Other: # Voids 2 Weight On Admission 79.37 kg Narrative: Patient seen in his room sitting on the edge of his bed he is in no acute distress, is in no respiratory distress, no complaints of chest pain, no complaints of abdominal pain. Patient is able to ambulate without his walker with a shuffling gait Mental Status Examination Appearance: Disheveled (Somewhat) Consciousness: Alert Orientation: Person, Place Motor Activity: Other (in bed) Speech: Unremarkable Language: Adequate Fund of Knowledge: Poor Attention and Concentration: Easily distracted Memory: Impaired Mood: Other (Euthymic to somewhat irritable) Affect: Other (Good range and intensity) Thought Process & Associations: Disorganized (Mildly) Thought Content: Preoccupations (Somewhat focused on smoking) Hallucination Type: None (does not appear to be experiencing) Delusion Type: None Suicidal Ideation: No Suicidal Plan: No Suicidal Intention: No Homicidal Ideation: No Homicidal Plan: No Homicidal Intention: No Insight: Poor Judgment: Poor Assessment and Plan - Assessment (1) PTSD (post-traumatic stress disorder) Code(s): F43.10 - Post-traumatic stress disorder, unspecified Status: Acute - Plan Plan: Estimated LOS: [3-5] days At this time patient does meet criteria for further inpatient stay though at this time I feel patient does have capacity to sign voluntary. Placement remains the critical issue at the present time. Justification for Continued Inpatient Stay: At this time patient would decompensate if not placed in an appropriate level of care Discharge Planning: To be determined
[2018-03-17] MEDS: levETIRAcetam 250 MG Tablet PO SCH (10:35)
[2018-03-17] MEDS: Baclofen 10 MG Tablet PO SCH ×2 (10:35→17:58)
[2018-03-17] MEDS: Senna/Docusate Sodium 8.6/50 MG Tablet PO SCH ×2 (10:36→20:26)
[2018-03-17] MEDS: Sertraline 100 MG Tablet PO SCH (10:36)
[2018-03-17] MEDS: Lactobacillus Acidophilus/L. Spores Tablet PO SCH (12:15)
[2018-03-17 16:43] LABS: Hemoglobin A1c 4.8 % (4.3-6.0)
[2018-03-17] MEDS: Divalproex 500 MG DR Tablet PO SCH (20:24)
[2018-03-17] MEDS: Lidocaine 5% Patch T-DERMAL SCH (20:24)
[2018-03-18] MEDS: levETIRAcetam 250 MG Tablet PO SCH ×2 (01:41→10:03)
[2018-03-18] MEDS: Baclofen 10 MG Tablet PO SCH ×3 (01:41→18:49)
[2018-03-18] MEDS: Lactobacillus Acidophilus/L. Spores Tablet PO SCH (06:00)
[2018-03-18] MEDS: Gabapentin 100 MG Capsule PO SCH ×3 (10:02→18:49)
[2018-03-18] MEDS: Sertraline 100 MG Tablet PO SCH (10:02)
[2018-03-18] MEDS: Senna/Docusate Sodium 8.6/50 MG Tablet PO SCH (10:02)
[2018-03-18] MEDS: Calcium Carbonate 500 MG Tablet PO SCH (10:03)
--- NOTE | 2018-03-18 14:18 | P.PNPSY ---
Subjective Remarks: Patient seen in day room with floor staff, chart reviewed, patient compliant medication. Patient calm cooperative says he is feeling better. Today he denies voices or visions denies suicidality, homicidality. This is willing to go to an [facility] we need to continue diligently searching for an appropriate placement Review of Systems All other systems reviewed negative except as stated in HPI Mental Status Examination Appearance: Disheveled (Somewhat) Consciousness: Alert Orientation: Person, Place Motor Activity: Other (in bed) Speech: Unremarkable Language: Adequate Fund of Knowledge: Poor Attention and Concentration: Easily distracted Memory: Impaired Mood: Other (Euthymic to somewhat irritable) Affect: Other (Good range and intensity) Thought Process & Associations: Disorganized (Mildly) Thought Content: Preoccupations (Somewhat focused on smoking) Hallucination Type: None (does not appear to be experiencing) Delusion Type: None Suicidal Ideation: No Suicidal Plan: No Suicidal Intention: No Homicidal Ideation: No Homicidal Plan: No Homicidal Intention: No Insight: Poor Judgment: Poor Assessment and Plan - Assessment (1) PTSD (post-traumatic stress disorder) Code(s): F43.10 - Post-traumatic stress disorder, unspecified Status: Acute - Plan Plan: Patient continues to show some stabilization his behavior is calmer there is still somewhat verbose intrusive for now continue medications no change Justification for Continued Inpatient Stay: At this time patient would decompensate if not placed in an appropriate level of care Discharge Planning: To be determined
[2018-03-18] MEDS ORDERED: Haloperidol Inj 5 MG/ML Ampul ONE (16:02)
[2018-03-18] MEDS ORDERED: Haloperidol Inj 5 MG/ML Ampul IM ONE (16:30)
[2018-03-19] MEDS: Senna/Docusate Sodium 8.6/50 MG Tablet PO SCH ×3 (01:19→21:17)
[2018-03-19] MEDS: Lidocaine 5% Patch T-DERMAL SCH ×2 (01:19→21:17)
[2018-03-19] MEDS: Divalproex 500 MG DR Tablet PO SCH ×2 (01:19→21:17)
[2018-03-19] MEDS: Calcium Carbonate 500 MG Tablet PO SCH ×3 (01:19→21:17)
[2018-03-19] MEDS: levETIRAcetam 250 MG Tablet PO SCH ×3 (01:20→21:19)
[2018-03-19] MEDS: Baclofen 10 MG Tablet PO SCH ×3 (07:55→19:14)
[2018-03-19] MEDS: Sertraline 100 MG Tablet PO SCH (09:41)
[2018-03-19] MEDS: Lactobacillus Acidophilus/L. Spores Tablet PO SCH (09:41)
[2018-03-19] MEDS: Gabapentin 100 MG Capsule PO SCH ×3 (09:41→19:14)
--- NOTE | 2018-03-19 19:28 | P.PNPSY ---
Subjective Remarks: Reviewed electronic medical records and discussed case with staff. Follow-up was conducted in the hallway. Patient standing in the hallway holding onto his wheelchair yelling loudly about money. He appears to be owning. He continues to perseverate on Wednesday stating, "I am going to get $1872.80 while I am in here". He uses foul language and is not redirectable. Mental Status Examination Appearance: Disheveled (Somewhat) Consciousness: Alert Orientation: Person, Place Motor Activity: Other (in bed) Speech: Unremarkable Language: Adequate Fund of Knowledge: Poor Attention and Concentration: Easily distracted Memory: Impaired Mood: Other (Euthymic to somewhat irritable) Affect: Other (Good range and intensity) Thought Process & Associations: Disorganized (Mildly) Thought Content: Preoccupations (Somewhat focused on smoking) Hallucination Type: None (does not appear to be experiencing) Delusion Type: None Suicidal Ideation: No Suicidal Plan: No Suicidal Intention: No Homicidal Ideation: No Homicidal Plan: No Homicidal Intention: No Insight: Poor Judgment: Poor Assessment and Plan - Assessment (1) PTSD (post-traumatic stress disorder) Code(s): F43.10 - Post-traumatic stress disorder, unspecified Status: Acute - Plan Plan: Patient will be reevaluated Wednesday by the attending psychiatrist. Continue with current treatment plan. Justification for Continued Inpatient Stay: Moving this patient to a less restrictive environment would likely result in decompensation.
[2018-03-20] MEDS: Baclofen 10 MG Tablet PO SCH ×3 (02:43→17:33)
[2018-03-20] MEDS: Lactobacillus Acidophilus/L. Spores Tablet PO SCH (06:06)
[2018-03-20] MEDS: Calcium Carbonate 500 MG Tablet PO SCH ×2 (10:06→21:00)
[2018-03-20] MEDS: Gabapentin 100 MG Capsule PO SCH ×3 (10:07→17:33)
[2018-03-20] MEDS: Sertraline 100 MG Tablet PO SCH (10:07)
[2018-03-20] MEDS: Senna/Docusate Sodium 8.6/50 MG Tablet PO SCH ×2 (10:07→21:00)
[2018-03-20] MEDS: levETIRAcetam 250 MG Tablet PO SCH ×2 (10:07→21:11)
--- NOTE | 2018-03-20 12:45 | P.PNPSY ---
Subjective Remarks: Reviewed electronic medical records and discussed case with staff. Follow-up was conducted in patient's room. Patient was heard yelling in his room just prior to my entering. However, once I was in the room he laid on the bed with his eyes closed, blinking, and refusing to answer any questions. His nurse reports that he was fine at morning medication administration and then shortly after was heard in the halls cursing and yelling loudly. Mental Status Examination Appearance: Disheveled (Somewhat) Consciousness: Alert Orientation: Person, Place Motor Activity: Other (in bed) Speech: Unremarkable Language: Adequate Fund of Knowledge: Poor Attention and Concentration: Easily distracted Memory: Impaired Mood: Other (Euthymic to somewhat irritable) Affect: Other (Good range and intensity) Thought Process & Associations: Disorganized (Mildly) Thought Content: Preoccupations (Somewhat focused on smoking) Hallucination Type: None (does not appear to be experiencing) Delusion Type: None Suicidal Ideation: No Suicidal Plan: No Suicidal Intention: No Homicidal Ideation: No Homicidal Plan: No Homicidal Intention: No Insight: Poor Judgment: Poor Assessment and Plan - Assessment (1) PTSD (post-traumatic stress disorder) Code(s): F43.10 - Post-traumatic stress disorder, unspecified Status: Acute - Plan Plan: Patient will be reevaluated tomorrow by the attending psychiatrist. Continue with current treatment plan. Justification for Continued Inpatient Stay: Moving this patient to a less restrictive environment would likely result in decompensation.
[2018-03-20] MEDS: Divalproex 500 MG DR Tablet PO SCH (21:00)
[2018-03-20] MEDS: Lidocaine 5% Patch T-DERMAL SCH (23:44)
[2018-03-21] MEDS: Baclofen 10 MG Tablet PO SCH ×3 (06:32→17:49)
[2018-03-21] MEDS: Senna/Docusate Sodium 8.6/50 MG Tablet PO SCH ×2 (08:48→20:54)
[2018-03-21] MEDS: Lactobacillus Acidophilus/L. Spores Tablet PO SCH (08:48)
[2018-03-21] MEDS: Gabapentin 100 MG Capsule PO SCH ×3 (08:48→17:49)
[2018-03-21] MEDS: Sertraline 100 MG Tablet PO SCH (08:48)
[2018-03-21] MEDS: Calcium Carbonate 500 MG Tablet PO SCH ×2 (08:48→20:54)
[2018-03-21] MEDS ORDERED: Chlorpromazine Inj 50 MG/2 ML Ampule IM STA (09:48)
[2018-03-21] MEDS ORDERED: CHLORPROMAZINE 50 MG/2 ML IM STA (10:02)
[2018-03-21] MEDS: levETIRAcetam 250 MG Tablet PO SCH ×2 (11:10→21:56)
--- NOTE | 2018-03-21 16:00 | P.PNPSY ---
Subjective Remarks: Reviewed electronic medical records and discussed case with staff. Follow-up was conducted in hallway with nurse present. Patient was observed and overheard in the hallway cursing at the nurse speaking loudly. He was given an ETO prior to my arrival. Consulted with Dr. Pina his attending who has requested he be started on 50 mg of Thorazine 3 times daily. I have obtained a signature from the patient on the consent and ordered medication. After his ETO Thorazine took effect the patient was much more pleasant and was able to hear without any difficulty when I spoke to him in a conversational tone. Seem as his hearing issue may have a behavioral component to it. Mental Status Examination Appearance: Disheveled (Somewhat) Consciousness: Alert Orientation: Person, Place Motor Activity: Other (in bed) Speech: Unremarkable Language: Adequate Fund of Knowledge: Poor Attention and Concentration: Easily distracted Memory: Impaired Mood: Other (Euthymic to somewhat irritable) Affect: Other (Good range and intensity) Thought Process & Associations: Disorganized (Mildly) Thought Content: Preoccupations (Somewhat focused on smoking) Hallucination Type: None (does not appear to be experiencing) Delusion Type: None Suicidal Ideation: No Suicidal Plan: No Suicidal Intention: No Homicidal Ideation: No Homicidal Plan: No Homicidal Intention: No Insight: Poor Judgment: Poor Assessment and Plan - Assessment (1) PTSD (post-traumatic stress disorder) Code(s): F43.10 - Post-traumatic stress disorder, unspecified Status: Acute - Plan Plan: Patient will be reevaluated tomorrow by the attending psychiatrist. Continue with current treatment plan. Thorazine has been added to the patient's treatment plan. Justification for Continued Inpatient Stay: Moving this patient to a less restrictive environment would likely result in decompensation.
[2018-03-21] MEDS: ChlorproMAZINE 50 MG Tablet PO SCH (17:49)
[2018-03-21] MEDS: Lidocaine 5% Patch T-DERMAL SCH (20:58)
[2018-03-21] MEDS: Divalproex 500 MG DR Tablet PO SCH (21:00)
[2018-03-22] MEDS: Baclofen 10 MG Tablet PO SCH ×3 (02:21→17:01)
[2018-03-22] MEDS: Senna/Docusate Sodium 8.6/50 MG Tablet PO SCH ×2 (08:00→21:38)
[2018-03-22] MEDS: ChlorproMAZINE 50 MG Tablet PO SCH ×3 (08:00→17:01)
[2018-03-22] MEDS: Lactobacillus Acidophilus/L. Spores Tablet PO SCH (08:00)
[2018-03-22] MEDS: Gabapentin 100 MG Capsule PO SCH ×3 (08:01→17:01)
[2018-03-22] MEDS: Calcium Carbonate 500 MG Tablet PO SCH ×2 (08:01→21:38)
[2018-03-22] MEDS: Sertraline 100 MG Tablet PO SCH (08:01)
[2018-03-22] MEDS: levETIRAcetam 250 MG Tablet PO SCH ×2 (10:17→21:38)
--- NOTE | 2018-03-22 14:58 | P.PNPSY ---
Subjective Remarks: Patient seen in his room with RN chart reviewed, patient compliant medication. Patient appears to responding well to the Thorazine is calmer more focused and less irritable and reactive. For now continue treatment Review of Systems All other systems reviewed negative except as stated in HPI Mental Status Examination Appearance: Disheveled (Somewhat) Consciousness: Alert Orientation: Person, Place Motor Activity: Other (in bed) Speech: Unremarkable Language: Adequate Fund of Knowledge: Poor Attention and Concentration: Easily distracted Memory: Impaired Mood: Other (Euthymic to somewhat irritable) Affect: Other (Good range and intensity) Thought Process & Associations: Disorganized (Mildly) Thought Content: Preoccupations (Somewhat focused on smoking) Hallucination Type: None (does not appear to be experiencing) Delusion Type: None Suicidal Ideation: No Suicidal Plan: No Suicidal Intention: No Homicidal Ideation: No Homicidal Plan: No Homicidal Intention: No Insight: Poor Judgment: Poor Assessment and Plan - Assessment (1) PTSD (post-traumatic stress disorder) Code(s): F43.10 - Post-traumatic stress disorder, unspecified Status: Acute - Plan Plan: Patient behavior is calming is not as paranoid and suspicious of vigilant. For now continue treatment Justification for Continued Inpatient Stay: At this time patient would decompensate if placed in a lower level of care Discharge Planning: To be determined
[2018-03-22] MEDS ORDERED: Haloperidol Inj 5 MG/ML Ampul IM STA (17:58)
[2018-03-22] MEDS ORDERED: Haloperidol Inj 5 MG/ML Ampul ONE (17:59)
[2018-03-22] MEDS: Divalproex 500 MG DR Tablet PO SCH (22:49)
[2018-03-23] MEDS: Baclofen 10 MG Tablet PO SCH ×3 (01:59→18:05)
[2018-03-23] MEDS: Lidocaine 5% Patch T-DERMAL SCH ×2 (05:32→22:18)
[2018-03-23] MEDS: Senna/Docusate Sodium 8.6/50 MG Tablet PO SCH ×2 (09:28→21:00)
[2018-03-23] MEDS: Gabapentin 100 MG Capsule PO SCH ×3 (09:28→18:06)
[2018-03-23] MEDS: Lactobacillus Acidophilus/L. Spores Tablet PO SCH (09:28)
[2018-03-23] MEDS: ChlorproMAZINE 50 MG Tablet PO SCH ×3 (09:28→18:06)
[2018-03-23] MEDS: Sertraline 100 MG Tablet PO SCH (09:29)
[2018-03-23] MEDS: Calcium Carbonate 500 MG Tablet PO SCH ×2 (09:29→21:00)
[2018-03-23] MEDS: Acetaminophen 325 MG Tablet PO PRN ×2 (10:14→18:06)
[2018-03-23] MEDS: levETIRAcetam 250 MG Tablet PO SCH (10:14)
--- NOTE | 2018-03-23 12:03 | P.PNPSY ---
Subjective Remarks: Patient seen in his room with nurse Yuki, chart reviewed, patient compliant medication. Patient did have an episode of dyscontrol last night. Throw his walker across the room. This is sitting DTO of Haldol and Benadryl. This morning patient somewhat calm and sedated though arousable to alert and focused with me. Showing some irritability and feistiness will get anything she wants when he wants. For now will increase at bedtime Depakote to 750 mg and recheck Depakote blood level in 3 days Review of Systems All other systems reviewed negative except as stated in HPI Mental Status Examination Appearance: Disheveled (Somewhat) Consciousness: Alert Orientation: Person, Place Motor Activity: Other (in bed) Speech: Unremarkable Language: Adequate Fund of Knowledge: Poor Attention and Concentration: Easily distracted Memory: Impaired Mood: Other (Euthymic to somewhat irritable) Affect: Other (Good range and intensity) Thought Process & Associations: Disorganized (Mildly) Thought Content: Preoccupations (Somewhat focused on smoking) Hallucination Type: None (does not appear to be experiencing) Delusion Type: None Suicidal Ideation: No Suicidal Plan: No Suicidal Intention: No Homicidal Ideation: No Homicidal Plan: No Homicidal Intention: No Insight: Poor Judgment: Poor Assessment and Plan - Assessment (1) PTSD (post-traumatic stress disorder) Code(s): F43.10 - Post-traumatic stress disorder, unspecified Status: Acute - Plan Plan: Patient continues somewhat psychotic and labile she medication adjustment above Justification for Continued Inpatient Stay: At this time patient would decompensate a place to a lower level of care Discharge Planning: Placement remains problemati
[2018-03-23] MEDS: Divalproex 250 MG DR Tablet PO SCH (21:00)
[2018-03-24] MEDS: Senna/Docusate Sodium 8.6/50 MG Tablet PO SCH ×2 (09:19→21:37)
[2018-03-24] MEDS: Sertraline 100 MG Tablet PO SCH (09:19)
[2018-03-24] MEDS: Gabapentin 100 MG Capsule PO SCH ×3 (09:19→17:17)
[2018-03-24] MEDS: ChlorproMAZINE 50 MG Tablet PO SCH ×3 (09:19→21:38)
[2018-03-24] MEDS: Calcium Carbonate 500 MG Tablet PO SCH ×2 (09:19→21:38)
[2018-03-24] MEDS: Lactobacillus Acidophilus/L. Spores Tablet PO SCH (09:19)
[2018-03-24] MEDS: Acetaminophen 325 MG Tablet PO PRN (09:21)
[2018-03-24] MEDS: Baclofen 10 MG Tablet PO SCH ×2 (09:26→17:17)
[2018-03-24] MEDS: levETIRAcetam 250 MG Tablet PO SCH (10:11)
--- NOTE | 2018-03-24 13:42 | P.PNPSY ---
Subjective Remarks: Patient seen and carmichael with nurse Serenity, chart reviewed, patient compliant medication. Patient doing well today but no behavioral problems. He is sitting quietly in wheelchair his irritability and explosiveness are calmer today. For now continue treatment Review of Systems All other systems reviewed negative except as stated in HPI Mental Status Examination Appearance: Disheveled (Somewhat) Consciousness: Alert Orientation: Person, Place Motor Activity: Other (in bed) Speech: Unremarkable Language: Adequate Fund of Knowledge: Poor Attention and Concentration: Easily distracted Memory: Impaired Mood: Other (Euthymic to somewhat irritable) Affect: Other (Good range and intensity) Thought Process & Associations: Disorganized (Mildly) Thought Content: Preoccupations (Somewhat focused on smoking) Hallucination Type: None (does not appear to be experiencing) Delusion Type: None Suicidal Ideation: No Suicidal Plan: No Suicidal Intention: No Homicidal Ideation: No Homicidal Plan: No Homicidal Intention: No Insight: Poor Judgment: Poor Assessment and Plan - Assessment (1) PTSD (post-traumatic stress disorder) Code(s): F43.10 - Post-traumatic stress disorder, unspecified Status: Acute - Plan Plan: Patient remained somewhat confused with little insight, though his behaviors have been fairly good today without need at this time for any significant interventions. He is compliant with his medication Justification for Continued Inpatient Stay: At this time patient would decompensate a place to a lower level of care Discharge Planning: To be determined
[2018-03-24] MEDS: Divalproex 250 MG DR Tablet PO SCH (21:38)
[2018-03-24] MEDS: Lidocaine 5% Patch T-DERMAL SCH (21:38)
[2018-03-25] MEDS: Lactobacillus Acidophilus/L. Spores Tablet PO SCH (07:10)
[2018-03-25] MEDS: Senna/Docusate Sodium 8.6/50 MG Tablet PO SCH ×2 (08:51→21:59)
[2018-03-25] MEDS: Sertraline 100 MG Tablet PO SCH (08:51)
[2018-03-25] MEDS: Calcium Carbonate 500 MG Tablet PO SCH ×2 (08:52→21:59)
[2018-03-25] MEDS: Gabapentin 100 MG Capsule PO SCH ×3 (08:52→17:34)
[2018-03-25] MEDS: ChlorproMAZINE 50 MG Tablet PO SCH (09:47)
[2018-03-25] MEDS: levETIRAcetam 250 MG Tablet PO SCH ×2 (10:47→21:59)
[2018-03-25] MEDS: Baclofen 10 MG Tablet PO SCH ×3 (10:47→19:44)
--- NOTE | 2018-03-25 13:20 | P.PNPSY ---
Subjective Remarks: In his room with nurse Cyndie, chart reviewed, patient compliant medications, patient discussed with nurse. Patient continues somewhat disorganized confused at the present time no significant behavioral problems. He is compliant with his medications. He continues to focus frequently on smoking. For now continue treatment Review of Systems All other systems reviewed negative except as stated in HPI Mental Status Examination Appearance: Disheveled (Somewhat) Consciousness: Alert Orientation: Person, Place Motor Activity: Other (in bed) Speech: Unremarkable Language: Adequate Fund of Knowledge: Poor Attention and Concentration: Easily distracted Memory: Impaired Mood: Other (Euthymic to somewhat irritable) Affect: Other (Good range and intensity) Thought Process & Associations: Disorganized (Mildly) Thought Content: Preoccupations (Somewhat focused on smoking) Hallucination Type: None (does not appear to be experiencing) Delusion Type: None Suicidal Ideation: No Suicidal Plan: No Suicidal Intention: No Homicidal Ideation: No Homicidal Plan: No Homicidal Intention: No Insight: Poor Judgment: Poor Assessment and Plan - Assessment (1) PTSD (post-traumatic stress disorder) Code(s): F43.10 - Post-traumatic stress disorder, unspecified Status: Acute - Plan Plan: Patient continues psychotic and somewhat confused, compliant medication Justification for Continued Inpatient Stay: At this time patient would decompensate a place to a lower level of care Discharge Planning: To be determined
[2018-03-25] MEDS: Divalproex 250 MG DR Tablet PO SCH (21:59)
[2018-03-25] MEDS: Lidocaine 5% Patch T-DERMAL SCH (21:59)
[2018-03-26] MEDS: Baclofen 10 MG Tablet PO SCH ×4 (05:06→18:34)
[2018-03-26] MEDS: levETIRAcetam 250 MG Tablet PO SCH ×3 (05:08→22:16)
[2018-03-26] MEDS: ChlorproMAZINE 50 MG Tablet PO SCH ×3 (05:10→09:03)
[2018-03-26] MEDS: Lactobacillus Acidophilus/L. Spores Tablet PO SCH (06:22)
[2018-03-26] MEDS: Gabapentin 100 MG Capsule PO SCH ×4 (08:41→18:34)
[2018-03-26] MEDS: Calcium Carbonate 500 MG Tablet PO SCH ×2 (08:41→20:27)
[2018-03-26] MEDS: Sertraline 100 MG Tablet PO SCH (08:41)
[2018-03-26] MEDS: Senna/Docusate Sodium 8.6/50 MG Tablet PO SCH ×2 (08:42→20:27)
[2018-03-26] MEDS: Acetaminophen 325 MG Tablet PO PRN ×2 (08:44→15:20)
--- NOTE | 2018-03-26 09:50 | XR ---
EXAM DATE: 03/26/2018 9:34 AM EDT AGE/SEX: 62 years / Male INDICATIONS: Left hip pain. No known injury. CLINICAL DATA: This is the patient's subsequent encounter. Patient reports that signs and symptoms h ave been present for 1 month and indicates a pain score of 6/10. MEDICAL/SURGICAL HISTORY: None. . Left hip surgery. COMPARISON: [facility], HIP LEFT 2V, 02/24/2018. . FINDINGS: Views left hip are obtained. 3 screws traverse the femoral neck. No acute fracture. Mild degenerative changes. CONCLUSION: Previous internal fixation, no fracture. Electronically signed by: Quinton Foote MD 03/26/2018 9:48 AM EDT
--- NOTE | 2018-03-26 11:53 | P.CON ---
History of Present Illness Service: [facility] Consult date: 03/26/18 Requesting Physician: Elder Amin Reason for Consult: Hypotension Primary Care Provider: [facility] Family Provider: [facility] Chief Complaint: "I need Demerol" History of Present Illness: 62-year-old male with past medical history significant for bipolar disorder, seizures, gout, chronic pain, COPD, HTN, HLD, chronic alcoholic pancreatitis, hepatitis B and C [place] was apparently discharged from [place] on 03/15 to [facility] however when patient arrived there he refuses to get off transportation vehicle and returned back to the emergency department. Patient was seen and evaluated in the emergency department and cleared for medically and admitted to inpatient psychiatry unit. [facility] has been consulted due to patient's hypotension today. Spoke with nurse reports patient had a fall overnight hitting his left hip for which she is underwent hip x-ray. Left hip x -ray 2 views reviewed today with internal fixation noted and no fractures. Patient is seen and examined sitting up in bed eating his lunch in his lap with sitter in the room. He complains of left hip pain and is requesting a "shot of Demerol". He goes on to tell me that he has been in the [employer] and that he is not responsible for his actions in the first 3 minutes after he wakes up from sleep. He denies any dizziness, lightheadedness, cough, shortness of breath or chest pain. He is insistent that he needs a shot of Demerol, when I further discussed that this cannot be administered while he is in this unit and then we will have to provide other means for pain relief he states "then I do not need to" he proceeds to curse at me and tell me to leave his room. [facility] - History History Provided By: Medical Record - Medical History Medical History: Medical History (Last Reviewed 03/26/18 @ 13:35 by Rina Quinn) Cirrhosis PTSD (post-traumatic stress disorder) Pancreatitis, chronic Seizure - Surgical History Surgical History: Surgical History (Last Updated 03/26/18 @ 13:37 by Rina Quinn) History of hip surgery - Tobacco History Second Hand Smoke Exposure: No Tobacco Use In Past 30 Days: Yes Smoking Status: Current every day smoker Tobacco Type: Cigarettes - Alcohol History How Often Do You Have a Drink Containing Alcohol: Never - Substance Use History Substance History: No History of Abuse - Travel History Recent Travel in the [place] Within the Last 8 Weeks: No Recent Travel Out of the Country Within the Last 8 Weeks: No - Immunization History Tetanus Immunization: Unable to Assess Hx Influenza Vaccine This Season: Yes Medications and Allergies Active Medications: Active Medications Acetaminophen (Tylenol) 650 mg PO Q4H PRN PRN Reason: Pain 1-5 or Temp >101F Last Admin: 03/26/18 08:44 Dose: 650 mg Al Hydrox/Mg Hydrox/Simethicone (Mag-Al Plus Susp Liq) 30 ml PO Q6H PRN PRN Reason: DYSPEPSIA Al Hydroxide/Mg Hydroxide (Milk Of Magnesia Liq) 30 ml PO Q12H PRN PRN Reason: Mild Constipation Bacitracin (Baciguent Oint) 1 applicatio TOPICAL BID [facility] Last Admin: 03/26/18 08:41 Dose: 1 applicatio Baclofen (Lioresal) 15 mg PO Q8H [facility] Last Admin: 03/26/18 09:04 Dose: Not Given Bisacodyl (Dulcolax Supp) 10 mg RECTAL DAILY PRN PRN Reason: SEVERE CONSITIPATION Chlorpromazine HCl (Thorazine) 100 mg PO DAILY@ [facility] Last Admin: 03/25/18 17:35 Dose: 100 mg Chlorpromazine HCl (Thorazine) 50 mg PO DAILY@08, [facility] Last Admin: 03/26/18 09:03 Dose: Not Given Diphenhydramine HCl (Benadryl) 50 mg PO HS PRN PRN Reason: INSOMNIA Last Admin: 03/22/18 22:49 Dose: 50 mg Divalproex Sodium (Depakote Dr) 750 mg PO HS [facility] Last Admin: 03/25/18 21:59 Dose: 750 mg Gabapentin (Neurontin) 100 mg PO TID [facility] Last Admin: 03/26/18 09:04 Dose: Not Given Hydroxyzine HCl (Atarax) 50 mg PO Q6H PRN PRN Reason: ANXIETY Last Admin: 03/20/18 17:33 Dose: 50 mg Lactobacillus Acidophilus (Lactinex) 1 tab PO DAILYAC [facility] Last Admin: 03/26/18 06:22 Dose: 1 tab Lactulose (Lactulose Liq) 30 ml PO DAILY PRN PRN Reason: SEVERE CONSITIPATION Levetiracetam (Keppra) 250 mg PO Q12H [facility] Last Admin: 03/26/18 09:03 Dose: 250 mg Lidocaine HCl (Lidoderm 5% Patch.12 Hr) 1 patch T-DERMAL DAILY@2000 [facility] Last Admin: 03/25/18 21:59 Dose: 1 patch Miscellaneous (Pill Splitter) 1 each OTHER UNSCH PRN PRN Reason: SEE LABEL COMMENTS Multivitamins (Theragran) 1 tab PO DAILY [facility] Last Admin: 03/26/18 08:42 Dose: 1 tab Patch Removal (Remove Old Patch) 1 each T-DERMAL DAILY@0800 [facility] Last Admin: 03/26/18 08:41 Dose: 1 each Quetiapine Fumarate (Seroquel) 600 mg PO HS [facility] Last Admin: 03/25/18 21:59 Dose: 600 mg Senna/Docusate Sodium (Leanne-Colace) 1 tab PO BID [facility] Last Admin: 03/26/18 08:42 Dose: 1 tab Sennosides (Senokot) 17.2 mg PO Q12H PRN PRN Reason: Moderate Constipation Sertraline HCl (Zoloft) 200 mg PO DAILY [facility] Last Admin: 03/26/18 08:41 Dose: 200 mg Allergies Allergy/AdvReac Type Severity Reaction Status Date / Time No Known Allergies Allergy Uncoded 11/13/16 20:22 Home Medications Medication Instructions Recorded Confirmed Type Lactobacillus acidophilus 100 mg PO AC 02/22/18 03/15/18 History [Acidophilus] acetaminophen [Tylenol] 650 mg PO Q6H PRN 02/22/18 03/15/18 History calcium carbonate [Calcium 600] 600 mg PO BID 02/22/18 03/15/18 History Physical Exam Vital signs: Vital Signs 03/25/18 17:46 03/26/18 01:07 03/26/18 02:00 Temperature 36.9 C 36.6 C 36.5 C Pulse Rate 80 80 62 Respiratory Rate 20 17 16 Blood Pressure 118/68 115/79 120/63 Pulse Oximetry 93 L 96 95 03/26/18 03:00 03/26/18 04:00 03/26/18 08:40 Temperature 36.4 C 36.4 C L Pulse Rate 70 68 68 Respiratory Rate 16 16 14 Blood Pressure 117/84 106/66 82/58 L Pulse Oximetry 95 95 94 L 03/26/18 08:50 Temperature Pulse Rate 71 Respiratory Rate 14 Blood Pressure 91/53 L Pulse Oximetry 92 L Intake & Output 03/25/18 03/26/18 03/26/18 18:59 06:59 18:59 Intake Total 720 / 720 Balance 720 / 720 Intake: Oral 720 / 720 Narrative: GENERAL: Well-developed, well-nourished male sitting up in bed eating lunch, appears to be in no acute distress. SKIN: Warm and dry. HEAD: Atraumatic. Normocephalic. EYES: Pupils equal and round. No scleral icterus. No injection or drainage. ENT: No nasal bleeding or discharge. Mucous membranes pink and moist. NECK: Trachea midline. No JVD. CARDIOVASCULAR: Regular rate and rhythm. RESPIRATORY: No accessory muscle use. Clear to auscultation. Breath sounds equal bilaterally. GASTROINTESTINAL: Abdomen soft, non-tender, nondistended. MUSCULOSKELETAL: Extremities without clubbing, cyanosis, or edema. No obvious deformities. NEUROLOGICAL: Awake and alert. No obvious cranial nerve deficits. Motor grossly within normal limits. Normal speech. Assessment and Plan - Plan 62-year-old male with a past medical history significant for bipolar disorder, seizure disorder, gout, chronic back pain, COPD, HTN, HLD, chronic alcoholic pancreatitis, hepatitis B and hepatitis C who was discharged 03/15 to [facility]. When patient arrived to [facility] refused to get off of transportation vehicle and became very angry, return back to the emergency department for reevaluation. [facility] consulted due to patient's Depression/PTSD -Treatment plan per psychiatry, greatly appreciated. -Currently on Thorazine 50 mg at 9 AM 10 AM, 100 mg at 12 and 6 PM, Atarax 50 mg every 6 hours History of hypertension Now hypotensive -Check orthostatic BPs -Check CBC and BMP, suspect hypotension is likely due to dehydration -Heart rate stable, patient asymptomatic, continue to monitor closely. -Thorazine has been known to decrease blood pressure, morning dose held by nurse -If worsening may need to transfer patient to medical psychiatry unit. History of seizure disorder -No reports of seizures. -on Keppra 250 mg every 12 hours, Depakote 750 nightly -Seizure precautions. Left hip pain, chronic Fall -Hip x-ray completed 03/26 with internal fixation noted, no fracture -Continue baclofen, gabapentin, PRN Tylenol -Consult PT for evaluation and recommendations. Discussed with patient no Demerol. DVT prophylaxis-ambulation. Thank you for this consultation. We will continue to follow along. Discussed Condition With: Discussed patient and RN
--- NOTE | 2018-03-26 13:48 | P.PNPSY ---
Subjective Remarks: Patient was seen and case discussed with nursing. Per record, patient had a fall at 1 in the morning. Since then he has had mild confusion and hypotension. Medical consult was placed by the on-call doctor and's medical management is done by that team. During my interview he is alert and oriented and quite irritable. Mental Status Examination Appearance: Disheveled (Somewhat) Consciousness: Alert Orientation: Person, Place Motor Activity: Other (in bed) Speech: Unremarkable Language: Adequate Fund of Knowledge: Poor Attention and Concentration: Easily distracted Memory: Impaired Mood: Other (Euthymic to somewhat irritable) Affect: Irritable Thought Process & Associations: Disorganized (Mildly) Thought Content: Preoccupations (Somewhat focused on smoking) Hallucination Type: None (does not appear to be experiencing) Delusion Type: None Suicidal Ideation: No Suicidal Plan: No Suicidal Intention: No Homicidal Ideation: No Homicidal Plan: No Homicidal Intention: No Insight: Poor Judgment: Poor Assessment and Plan - Assessment (1) PTSD (post-traumatic stress disorder) Code(s): F43.10 - Post-traumatic stress disorder, unspecified Status: Acute - Plan Plan: Given the hypotension, we will hold his Thorazine and Seroquel and we will plan to resume it tomorrow Justification for Continued Inpatient Stay: Patient would decompensate in a less restrictive setting
[2018-03-26] MEDS: Lidocaine 5% Patch T-DERMAL SCH (20:22)
[2018-03-26] MEDS: Divalproex 250 MG DR Tablet PO SCH (20:27)
[2018-03-26 21:57] LABS: Baso % (Auto) 0.3 % (0.0-2.0); Eos # (Auto) 0.1 th/mm3 (0.0-0.4); Eos % (Auto) 3.2 % (0.0-4.0); Lymph # (Auto) 1.3 th/mm3 (1.0-4.8); Lymph % (Auto) 37.1 % (9.0-44.0); Mean Corpuscular HGB Conc 33.3 % (32.0-36.0); Mean Corpuscular Hemoglobin 29.8 pg (27.0-34.0); Mean Corpuscular Volume 89.4 fL (80.0-100.0); Mean Platelet Volume 7.8 fL (7.0-11.0); Mono # (Auto) 0.3 th/mm3 (0.0-0.9); Mono % (Auto) 9.3 % (0.0-8.0); Neut # (Auto) 1.7 th/mm3 (1.8-7.7); Neut % (Auto) 50.1 % (16.0-70.0); Platelet Count 126 th/mm3 (150-450); Red Blood Count 4.37 mil/mm3 (4.50-5.90); Red Cell Distribution Width 14.2 % (11.6-17.2); White Blood Count 3.4 th/mm3 (4.0-11.0)
[2018-03-26 22:16] LABS: Alanine Aminotransferase 33 U/L (12-78); Albumin 3.4 g/dL (3.4-5.0); Anion Gap 8 meq/L (5-15); Aspartate Aminotransferase 40 U/L (15-37); Blood Urea Nitrogen 28 mg/dL (7-18); Calcium 9.1 mg/dL (8.5-10.1); Carbon Dioxide 27.2 meq/L (21.0-32.0); Chloride 101 meq/L (98-107); Glomerular Filtration Rate 39 mL/min (>89); Glucose,Random 91 mg/dL (74-106); Potassium 4.4 meq/L (3.5-5.1); Sodium 136 meq/L (136-145)
[2018-03-26 22:26] LABS: Alkaline Phosphatase 64 U/L (45-117); Free T4 (Free Thyroxine) 0.51 ng/dL (0.76-1.46); Total Protein 8.9 g/dL (6.4-8.2)
[2018-03-27] MEDS: Baclofen 10 MG Tablet PO SCH ×3 (01:33→18:43)
[2018-03-27] MEDS: Lactobacillus Acidophilus/L. Spores Tablet PO SCH (06:09)
[2018-03-27] MEDS: Calcium Carbonate 500 MG Tablet PO SCH ×3 (08:31→20:05)
[2018-03-27] MEDS: Sertraline 100 MG Tablet PO SCH (08:31)
[2018-03-27] MEDS: Senna/Docusate Sodium 8.6/50 MG Tablet PO SCH ×3 (08:31→20:06)
[2018-03-27] MEDS: Gabapentin 100 MG Capsule PO SCH ×4 (08:31→18:43)
--- NOTE | 2018-03-27 08:35 | ECG ---
Date Performed: 03/26/2018 Time Performed: 14:29:08 PTAGE: 62 years EKG: Sinus rhythm BORDERLINE RIGHT AXIS DEVIATION BORDERLINE ECG PREVIOUS TRACING : 10/13/2017 13.07 DOCTOR: Eugene Sanchez Interpretating Date/Time 03/27/2018 08:29:28
[2018-03-27] MEDS: levETIRAcetam 250 MG Tablet PO SCH ×2 (09:46→21:35)
--- NOTE | 2018-03-27 11:20 | P.PN ---
Subjective Interval history: Follow-up visit for hypotension. Spoke with nurse who reports no acute events overnight or this morning, BP improved. Patient is seen and examined resting in bed comfortably, appears to be in no acute distress. He is extremely hard of hearing and reports that somebody came into his room earlier however does not know the reasoning behind this. Patient denies any dizziness or lightheadedness at the moment. Discuss abnormal TSH and starting Synthroid and need to follow-up in 6 weeks, patient diffusely confused. Physical Exam Vital signs: Vital Signs 03/26/18 14:00 03/26/18 17:45 03/26/18 21:53 Temperature 36.7 C 36.6 C Pulse Rate 79 74 70 Respiratory Rate 18 16 Blood Pressure 105/68 114/58 L 110/68 Pulse Oximetry 96 03/27/18 05:29 Temperature 36.8 C Pulse Rate 77 Respiratory Rate 17 Blood Pressure 102/55 L Pulse Oximetry 97 Intake & Output 03/26/18 03/27/18 03/27/18 18:59 06:59 18:59 Intake Total 360 / 360 Balance 360 / 360 Intake: Oral 360 / 360 Other: # Voids 1 Narrative: GENERAL: Well-developed, well-nourished male resting in bed in no acute distress. Extremely hard of hearing. SKIN: Warm and dry. HEAD: Atraumatic. Normocephalic. EYES: Pupils equal and round. No scleral icterus or drainage. ENT: No nasal bleeding or discharge. Mucous membranes pink and moist. NECK: Trachea midline. CARDIOVASCULAR: Regular rate and rhythm. RESPIRATORY: No accessory muscle use. Clear to auscultation. Breath sounds equal bilaterally. GASTROINTESTINAL: Abdomen soft, non-tender, nondistended. MUSCULOSKELETAL: Extremities without clubbing, cyanosis, or edema. No obvious deformities. NEUROLOGICAL: Awake and alert, diffusely confused. No obvious cranial nerve deficits. Motor grossly within normal limits. Normal speech. Results - Labs CBC & Chem 7: 03/26/18 21:20 03/26/18 21:20 Laboratory Results - last 24 hr 03/26/18 03/26/18 21:20 21:20 WBC 3.4 L RBC 4.37 L Hgb 13.0 Hct 39.0 MCV 89.4 MCH 29.8 MCHC 33.3 RDW 14.2 Plt Count 126 L MPV 7.8 Neut % (Auto) 50.1 Lymph % (Auto) 37.1 Garfield % (Auto) 9.3 H Eos % (Auto) 3.2 Baso % (Auto) 0.3 Neut # (Auto) 1.7 L Lymph # (Auto) 1.3 Garfield # (Auto) 0.3 Eos # (Auto) 0.1 Baso # (Auto) 0.0 WBC Differential . Differential Comment Auto diff final Sodium 136 Potassium 4.4 Chloride 101 Carbon Dioxide 27.2 Anion Gap 8 BUN 28 H Creatinine 1.78 H Estimated GFR 39 L Random Glucose 91 Calcium 9.1 Total Bilirubin 0.2 AST 40 H ALT 33 Alkaline Phosphatase 64 Total Protein 8.9 H Albumin 3.4 TSH 6.350 H Free T4 0.51 L Assessment and Plan - Plan 62-year-old male with a past medical history significant for bipolar disorder, seizure disorder, gout, chronic back pain, COPD, HTN, HLD, chronic alcoholic pancreatitis, hepatitis B and hepatitis C who was discharged 03/15 to [facility]. When patient arrived to [facility] refused to get off of transportation vehicle and became very angry, return back to the emergency department for reevaluation. [facility] consulted due to patient's Depression/PTSD -Treatment plan per psychiatry, greatly appreciated. -Currently on Thorazine 50 mg at 9 AM 10 AM, 100 mg at 12 and 6 PM, Atarax 50 mg every 6 hours History of hypertension Now hypotensive - CBC stable, BMP with mild dehydration. -Heart rate stable, EKG with no acute findings, patient asymptomatic. -Thorazine has been known to decrease blood pressure. -BP stable, continue to monitor QUINCY - Likely secondary to poor p.o. intake, continue to encourage fluid intake - Recheck in 2-3 days, if not improved consider IV hydration History of seizure disorder -No reports of seizures. -on Keppra 250 mg every 12 hours, Depakote 750 nightly -Seizure precautions. Left hip pain, chronic Fall -Hip x-ray completed 03/26 with internal fixation noted, no fracture -Continue baclofen, gabapentin, PRN Tylenol -Consult PT for evaluation and recommendations. - No complaints of pain this morning. Hypothyroidism - TSH 6.35 with free T4 0.51, start Synthroid 25mgc, recheck in 6-weeks as outpatient if discharged. DVT prophylaxis-ambulation. Discussed Condition With: Discussed with patient and RN
--- NOTE | 2018-03-27 13:20 | P.PNPSY ---
Subjective Remarks: Patient was seen and case discussed with nursing. Thorazine continues to be on hold as believes that is the agent responsible for his hypotension. Blood pressure has improved. We will resume his Seroquel today at 200 mg p.o. twice daily and the dose of 300 mg p.o. nightly. Patient remains irritable and disorganized. Has not needed any ETO's Mental Status Examination Appearance: Disheveled (Somewhat) Consciousness: Alert Orientation: Person, Place Motor Activity: Other (in bed) Speech: Unremarkable Language: Adequate Fund of Knowledge: Poor Attention and Concentration: Easily distracted Memory: Impaired Mood: Other (Euthymic to somewhat irritable) Affect: Irritable Thought Process & Associations: Disorganized (Mildly) Thought Content: Preoccupations (Somewhat focused on smoking) Hallucination Type: None (does not appear to be experiencing) Delusion Type: None Suicidal Ideation: No Suicidal Plan: No Suicidal Intention: No Homicidal Ideation: No Homicidal Plan: No Homicidal Intention: No Insight: Poor Judgment: Poor Assessment and Plan - Assessment (1) PTSD (post-traumatic stress disorder) Code(s): F43.10 - Post-traumatic stress disorder, unspecified Status: Acute - Plan Plan: See HPI Justification for Continued Inpatient Stay: Patient would decompensate in a less restrictive setting
[2018-03-27] MEDS: Lidocaine 5% Patch T-DERMAL SCH (20:04)
[2018-03-27] MEDS: Divalproex 250 MG DR Tablet PO SCH (20:05)
[2018-03-28] MEDS: Baclofen 10 MG Tablet PO SCH ×3 (01:26→17:30)
[2018-03-28] MEDS: Acetaminophen 325 MG Tablet PO PRN (04:43)
[2018-03-28] MEDS: Lactobacillus Acidophilus/L. Spores Tablet PO SCH (06:07)
[2018-03-28] MEDS: Calcium Carbonate 500 MG Tablet PO SCH ×2 (08:35→20:55)
[2018-03-28] MEDS: Sertraline 100 MG Tablet PO SCH (08:35)
[2018-03-28] MEDS: Gabapentin 100 MG Capsule PO SCH ×3 (08:35→17:30)
[2018-03-28] MEDS: Senna/Docusate Sodium 8.6/50 MG Tablet PO SCH ×2 (08:35→20:55)
[2018-03-28] MEDS: levETIRAcetam 250 MG Tablet PO SCH ×2 (09:18→22:05)
--- NOTE | 2018-03-28 12:31 | P.PN ---
Subjective Interval history: Follow-up visit for hypertension and QUINCY. Patient is seen and examined in the day room eating lunch this afternoon, appears to be in no acute distress. Uneventful night. Physical Exam Vital signs: Vital Signs 03/27/18 18:01 03/28/18 05:37 Temperature 98.7 F 97.3 F L Pulse Rate 77 90 Respiratory Rate 17 18 Blood Pressure 95/50 L 93/70 L Pulse Oximetry 92 L 96 Intake & Output 03/27/18 03/28/18 03/28/18 18:59 06:59 18:59 Intake Total 1080 / 1080 Balance 1080 / 1080 Weight 78.9 kg Intake: Oral 1080 / 1080 Other: # Voids 3 Narrative: GENERAL: Well-developed, well-nourished male up in wheelchair. Extremely hard of hearing. SKIN: Warm and dry. HEAD: Atraumatic. Normocephalic. EYES: Pupils equal and round. No drainage. ENT: No nasal bleeding or discharge. Mucous membranes pink and moist. NECK: Trachea midline. CARDIOVASCULAR: Regular rate and rhythm. RESPIRATORY: No accessory muscle use. Clear to auscultation. Breath sounds equal bilaterally. GASTROINTESTINAL: Abdomen soft, non-tender, nondistended. MUSCULOSKELETAL: Extremities without clubbing, cyanosis, or edema. No obvious deformities. NEUROLOGICAL: Awake and alert, diffusely confused. No obvious cranial nerve deficits. Motor grossly within normal limits. Normal speech. Results - Labs CBC & Chem 7: 03/26/18 21:20 03/26/18 21:20 Laboratory Results - last 24 hr 03/27/18 20:41 Valproic Acid 81 Assessment and Plan - Plan 62-year-old male with a past medical history significant for bipolar disorder, seizure disorder, gout, chronic back pain, COPD, HTN, HLD, chronic alcoholic pancreatitis, hepatitis B and hepatitis C who was discharged 03/15 to [facility]. When patient arrived to [facility] refused to get off of transportation vehicle and became very angry, return back to the emergency department for reevaluation. [facility] consulted due to patient's Depression/PTSD -Treatment plan per psychiatry, greatly appreciated. -Currently on Thorazine 50 mg BID and 100 mg also BID, Atarax 50 mg every 6 hours History of hypertension Now hypotensive - CBC stable, BMP with mild dehydration. -Heart rate stable, EKG with no acute findings, patient asymptomatic. -Thorazine has been known to decrease blood pressure. -BP stable, continue to monitor QUINCY - Likely secondary to poor p.o. intake, continue to encourage fluid intake - BMP today yet to be collected History of seizure disorder -No reports of seizures. -on Keppra 250 mg every 12 hours, Depakote 750 nightly -Seizure precautions. Left hip pain, chronic Fall -Hip x-ray completed 03/26 with internal fixation noted, no fracture -Continue baclofen, gabapentin, PRN Tylenol -Consult PT for evaluation and recommendations. - No complaints of pain this morning. Hypothyroidism - TSH 6.35 with free T4 0.51, start Synthroid 25mgc, recheck in 6-weeks as outpatient if discharged. DVT prophylaxis-ambulation. Discussed Condition With: Patient and tech.
--- NOTE | 2018-03-28 20:14 | P.PNPSY ---
Subjective Remarks: Patient seen for follow up; chart reviewed. Discussion with nursing staff reported that patient was agitated yesterday but no behavioral disturbances today continues to be loud at times. Patient was found in day room noted to be calm at times loud but likely secondary to his hearing impairment. Patient noted to be easily upset related to his hearing impairment and frustration. Patient states feeling "ok", makes nonsensical statements referring to mood swings. Review of Systems All other systems reviewed negative except as stated in HPI Mental Status Examination Appearance: Disheveled (Somewhat) Consciousness: Alert Orientation: Person, Place Motor Activity: Other (in wheelchair) Speech: Unremarkable Language: Adequate Fund of Knowledge: Poor Attention and Concentration: Easily distracted Memory: Impaired Mood: Other ("ok") Affect: Irritable (at times) Thought Process & Associations: Disorganized (Mildly) Thought Content: Preoccupations (on smoking) Hallucination Type: None Delusion Type: None Suicidal Ideation: No Suicidal Plan: No Suicidal Intention: No Homicidal Ideation: No Homicidal Plan: No Homicidal Intention: No Insight: Poor Judgment: Poor Assessment and Plan - Assessment (1) PTSD (post-traumatic stress disorder) Code(s): F43.10 - Post-traumatic stress disorder, unspecified Status: Acute - Plan Plan: Patient continues with episodic irritability, likely stemming from frustration of his hearing impairment recently preoccupation with smoking. No behavioral services today. Continue current treatment. Continue to monitor mood and behavior. Discharge planning in progress. Justification for Continued Inpatient Stay: At risk for further decompensation at lower level of care.
[2018-03-28] MEDS: Lidocaine 5% Patch T-DERMAL SCH (20:54)
[2018-03-28] MEDS: Divalproex 250 MG DR Tablet PO SCH (20:54)
[2018-03-29] MEDS: Baclofen 10 MG Tablet PO SCH ×3 (01:48→17:45)
[2018-03-29] MEDS: Lactobacillus Acidophilus/L. Spores Tablet PO SCH (06:07)
[2018-03-29] MEDS: Senna/Docusate Sodium 8.6/50 MG Tablet PO SCH ×2 (08:22→20:39)
[2018-03-29] MEDS: Calcium Carbonate 500 MG Tablet PO SCH ×2 (08:22→20:39)
[2018-03-29] MEDS: Sertraline 100 MG Tablet PO SCH (08:22)
[2018-03-29] MEDS: Gabapentin 100 MG Capsule PO SCH ×3 (08:23→17:45)
[2018-03-29 08:55] LABS: Calcium 9.2 mg/dL (8.5-10.1); Carbon Dioxide 26.2 meq/L (21.0-32.0); Potassium 4.3 meq/L (3.5-5.1)
[2018-03-29] MEDS: levETIRAcetam 250 MG Tablet PO SCH ×2 (09:03→21:46)
--- NOTE | 2018-03-29 12:22 | P.PNPSY ---
Subjective Remarks: Patient seen in day room with nurse Kathy, chart reviewed, patient compliant medication. Patient calm cooperative pleasant with me remained somewhat confused but overall focused he stating with the addition of the Seroquel in the morning he is feeling calmer feels his tempers under better control and he has better self control on the unit and in the milieu. For now continue treatment he does deny voices at the present time denies suicidality Review of Systems All other systems reviewed negative except as stated in HPI Mental Status Examination Appearance: Disheveled (Somewhat) Consciousness: Alert Orientation: Person, Place Motor Activity: Other (in wheelchair) Speech: Unremarkable Language: Adequate Fund of Knowledge: Poor Attention and Concentration: Easily distracted Memory: Impaired Mood: Other ("ok") Affect: Irritable (at times) Thought Process & Associations: Disorganized (Mildly) Thought Content: Preoccupations (on smoking) Hallucination Type: None Delusion Type: None Suicidal Ideation: No Suicidal Plan: No Suicidal Intention: No Homicidal Ideation: No Homicidal Plan: No Homicidal Intention: No Insight: Poor Judgment: Poor Assessment and Plan - Assessment (1) PTSD (post-traumatic stress disorder) Code(s): F43.10 - Post-traumatic stress disorder, unspecified Status: Acute - Plan Plan: Patient in a better mood today, he is compliant medications, at times mildly confused but overall doing better Justification for Continued Inpatient Stay: At this time patient would decompensate if not placed in an appropriate level of care Discharge Planning: To be determined
--- NOTE | 2018-03-29 17:32 | P.PN ---
Subjective Interval history: Follow-up visit HTN, HPI, HLD. Patient seen and examined today. Reports he is doing well. Patient is hyperverbal. Talking about rain enlightening. Is not really paying attention to what is being asked of him. Denies headaches, dizziness, chest pain, palpitations. Physical Exam Vital signs: Vital Signs 03/28/18 18:34 03/29/18 06:42 Temperature 97.8 F Pulse Rate 85 77 Respiratory Rate 18 Blood Pressure 132/72 118/71 Pulse Oximetry 98 95 Intake & Output 03/28/18 03/29/18 03/29/18 18:59 06:59 18:59 Intake Total 340 / 340 Balance 340 / 340 Intake: Oral 240 / 240 Oral Supplement 100 / 100 Other: # Voids 2 # Bowel Movements 0 Narrative: GENERAL: Well-developed, well-nourished male up in wheelchair. Extremely hard of hearing. SKIN: Warm and dry. HEAD: Atraumatic. Normocephalic. EYES: Pupils equal and round. No drainage. ENT: No nasal bleeding or discharge. Mucous membranes pink and moist. NECK: Trachea midline. CARDIOVASCULAR: Regular rate and rhythm. RESPIRATORY: No accessory muscle use. Clear to auscultation. Breath sounds equal bilaterally. GASTROINTESTINAL: Abdomen soft, non-tender, nondistended. MUSCULOSKELETAL: Extremities without clubbing, cyanosis, or edema. No obvious deformities. NEUROLOGICAL: Awake and alert, confused. No obvious cranial nerve deficits. Motor grossly within normal limits. Normal speech. Results - Labs CBC & Chem 7: 03/26/18 21:20 03/29/18 07:52 Laboratory Results - last 24 hr 03/29/18 07:52 Sodium 139 Potassium 4.3 Chloride 106 Carbon Dioxide 26.2 Anion Gap 7 BUN 29 H Creatinine 1.23 Estimated GFR 59 L Random Glucose 85 Calcium 9.2 Assessment and Plan - Plan 62-year-old male with a past medical history significant for bipolar disorder, seizure disorder, gout, chronic back pain, COPD, HTN, HLD, chronic alcoholic pancreatitis, hepatitis B and hepatitis C who was discharged 03/15 to [facility]. When patient arrived to [facility] refused to get off of transportation vehicle and became very angry, return back to the emergency department for reevaluation. [facility] consulted Depression/PTSD -Treatment plan per psychiatry, greatly appreciated. -Currently on Thorazine 50 mg BID and 100 mg also BID, Atarax 50 mg every 6 hours History of hypertension -CBC stable, BMP with mild dehydration. -Heart rate stable, EKG with no acute findings, patient asymptomatic. -Thorazine has been known to decrease blood pressure. -BP stable, continue to monitor HLD -Discuss with patient starting Lipitor 10mg daily -Lipid profile elevated LDL QUINCY - Likely secondary to poor p.o. intake, continue to encourage fluid intake - Improved History of seizure disorder -No reports of seizures. -on Keppra 250 mg every 12 hours, Depakote 750 nightly -Seizure precautions. Left hip pain, chronic Fall -Hip x-ray completed 03/26 with internal fixation noted, no fracture -Continue baclofen, gabapentin, PRN Tylenol -Consult PT for evaluation and recommendations. Hypothyroidism - TSH 6.35 with free T4 0.51, start Synthroid 25mgc, recheck in 6-weeks as outpatient if discharged. DVT prophylaxis-ambulation. Code Status: Full code Discussed Condition With: Patient, nursing Discharge Planning: DC disposition by primary team
[2018-03-29] MEDS: Divalproex 250 MG DR Tablet PO SCH (20:38)
[2018-03-29] MEDS: Lidocaine 5% Patch T-DERMAL SCH (20:40)
[2018-03-30] MEDS: Baclofen 10 MG Tablet PO SCH ×2 (01:19→09:55)
[2018-03-30] MEDS: Lactobacillus Acidophilus/L. Spores Tablet PO SCH (06:47)
[2018-03-30] MEDS: Sertraline 100 MG Tablet PO SCH (09:54)
[2018-03-30] MEDS: Gabapentin 100 MG Capsule PO SCH ×2 (09:54→12:53)
[2018-03-30] MEDS: levETIRAcetam 250 MG Tablet PO SCH ×2 (09:55→21:03)
[2018-03-30] MEDS: Calcium Carbonate 500 MG Tablet PO SCH ×2 (09:55→21:03)
--- NOTE | 2018-03-30 12:25 | P.PNPSY ---
Subjective Remarks: Patient seen in day room with nurse Alice, chart reviewed, patient calm pleasant finishing up his lunch. He is showing some improvement in his processing and some insight into his behaviors his acknowledgment of his impulsivity using his mouth before his brain. He continues to talk about placement issues. For now continue treatment we will continue to work on finding an appropriate [facility] progress note reviewed and agreed with and appreciated Review of Systems All other systems reviewed negative except as stated in HPI Mental Status Examination Appearance: Disheveled (Mildly) Consciousness: Alert Orientation: Person, Place Motor Activity: Other (in wheelchair) Speech: Unremarkable Language: Adequate Fund of Knowledge: Poor Attention and Concentration: Easily distracted Memory: Impaired Mood: Other ("ok") Affect: Irritable (at times) Thought Process & Associations: Disorganized (Mildly) Thought Content: Preoccupations (on smoking) Hallucination Type: None Delusion Type: None Suicidal Ideation: No Suicidal Plan: No Suicidal Intention: No Homicidal Ideation: No Homicidal Plan: No Homicidal Intention: No Insight: Poor Judgment: Poor Assessment and Plan - Assessment (1) PTSD (post-traumatic stress disorder) Code(s): F43.10 - Post-traumatic stress disorder, unspecified Status: Acute - Plan Plan: Patient somewhat more focused and appropriate today. Justification for Continued Inpatient Stay: At this time patient would decompensate a place to a lower level of care Discharge Planning: To be determined place is becoming more complicated
[2018-03-30] MEDS: Senna/Docusate Sodium 8.6/50 MG Tablet PO SCH ×2 (12:53→21:03)
--- NOTE | 2018-03-30 14:23 | P.PN ---
Subjective Interval history: Follow-up visit HTN, HPI, HLD. Patient seen and examined today. RAMPART. Reports he is doing well. Eating well. Compliant with medications. Denies pain and discomfort. Denies SOB/ dyspnea. Denies chest pain, palpitations, headaches, dizziness. Denies fevers, chills, n/v/d. Physical Exam Vital signs: Vital Signs 03/29/18 17:39 Temperature 97.7 F Pulse Rate 75 Respiratory Rate 16 Blood Pressure 115/74 Pulse Oximetry 95 Narrative: GENERAL: Well-developed. Extremely hard of hearing. NAD. SKIN: Warm and dry. HEAD: Normocephalic. EYES: Pupils equal and round. No drainage. ENT: No nasal bleeding or discharge. Mucous membranes pink and moist. NECK: Trachea midline. CARDIOVASCULAR: Regular rate and rhythm. RESPIRATORY: No accessory muscle use. Clear to auscultation. Breath sounds equal bilaterally. GASTROINTESTINAL: Abdomen soft, non-tender, nondistended. MUSCULOSKELETAL: Extremities without clubbing, cyanosis. Trace edema BLE. NEUROLOGICAL: Awake and alert, confused. RAMPART. Normal speech. Results - Labs CBC & Chem 7: 03/26/18 21:20 03/29/18 07:52 Assessment and Plan - Plan 62-year-old male with a past medical history significant for bipolar disorder, seizure disorder, gout, chronic back pain, COPD, HTN, HLD, chronic alcoholic pancreatitis, hepatitis B and hepatitis C who was discharged 03/15 to [facility]. When patient arrived to [facility] refused to get off of transportation vehicle and became very angry, return back to the emergency department for reevaluation. [facility] consulted Depression/PTSD -Treatment plan per psychiatry, greatly appreciated. -Currently on Thorazine 50 mg BID and 100 mg also BID, Atarax 50 mg every 6 hours History of hypertension -CBC stable, BMP with mild dehydration. -Heart rate stable, EKG with no acute findings, patient asymptomatic. -Thorazine has been known to decrease blood pressure. -BP stable, continue to monitor HLD -Lipid profile elevated LDL -Lipitor 10mg daily -Discuss continued lifestyle changes. No adverse reaction to medication QUINCY - Likely secondary to poor p.o. intake, continue to encourage fluid intake - Improved History of seizure disorder -No reports of seizures. -on Keppra 250 mg every 12 hours, Depakote 750 nightly -Seizure precautions. Left hip pain, chronic Fall -Hip x-ray completed 03/26 with internal fixation noted, no fracture -Continue baclofen, gabapentin, PRN Tylenol -Consult PT for evaluation and recommendations. Hypothyroidism - TSH 6.35 with free T4 0.51, start Synthroid 25mgc, recheck in 6-weeks as outpatient if discharged. DVT prophylaxis-ambulation. Stable from Hospitalist standpoint. We will sign off. Reconsult as needed. Code Status: Full Code Discussed Condition With: Patient, nursing Discharge Planning: DC disposition by primary team
[2018-03-30] MEDS: Divalproex 250 MG DR Tablet PO SCH (21:04)
[2018-03-30] MEDS: Lidocaine 5% Patch T-DERMAL SCH (21:04)
[2018-03-31] MEDS: Baclofen 10 MG Tablet PO SCH ×4 (01:52→17:22)
[2018-03-31] MEDS: Lactobacillus Acidophilus/L. Spores Tablet PO SCH (05:59)
[2018-03-31] MEDS: Senna/Docusate Sodium 8.6/50 MG Tablet PO SCH ×2 (08:48→20:57)
[2018-03-31] MEDS: Sertraline 100 MG Tablet PO SCH (08:48)
[2018-03-31] MEDS: Calcium Carbonate 500 MG Tablet PO SCH ×2 (08:48→20:57)
[2018-03-31] MEDS: Gabapentin 100 MG Capsule PO SCH ×3 (08:49→17:22)
[2018-03-31] MEDS: levETIRAcetam 250 MG Tablet PO SCH ×2 (09:36→20:59)
--- NOTE | 2018-03-31 11:54 | P.PNPSY ---
Subjective Remarks: Patient seen in day room with nurse Tanya, chart reviewed, patient compliant medications. The patient continues somewhat intrusive and appears more a reflection of loneliness and need to socialize. He is showing some improvement in alertness and processing is working will us related to placement issues. Today he even states she would take a no smoking facility. He denies voices or visions suicidality homicidality. For now continue treatment Review of Systems All other systems reviewed negative except as stated in HPI Mental Status Examination Appearance: Disheveled (Mildly) Consciousness: Alert Orientation: Person, Place Motor Activity: Other (in wheelchair) Speech: Unremarkable Language: Adequate Fund of Knowledge: Poor Attention and Concentration: Easily distracted Memory: Impaired Mood: Other ("ok") Affect: Irritable (at times) Thought Process & Associations: Disorganized (Mildly) Thought Content: Preoccupations (on smoking) Hallucination Type: None Delusion Type: None Suicidal Ideation: No Suicidal Plan: No Suicidal Intention: No Homicidal Ideation: No Homicidal Plan: No Homicidal Intention: No Insight: Poor Judgment: Poor Assessment and Plan - Assessment (1) PTSD (post-traumatic stress disorder) Code(s): F43.10 - Post-traumatic stress disorder, unspecified Status: Acute - Plan Plan: Patient continues to stabilize, is been no behavior problems and compliant medication. Placement remains problematic Justification for Continued Inpatient Stay: At this time patient would decompensate if not placed in an appropriate level of care Discharge Planning: To be determined
[2018-03-31] MEDS: Lidocaine 5% Patch T-DERMAL SCH (20:56)
[2018-03-31] MEDS: Divalproex 250 MG DR Tablet PO SCH (20:58)
[2018-04-01] MEDS: Baclofen 10 MG Tablet PO SCH ×3 (04:52→17:30)
[2018-04-01] MEDS: Lactobacillus Acidophilus/L. Spores Tablet PO SCH ×2 (05:22→08:15)
[2018-04-01] MEDS: Sertraline 100 MG Tablet PO SCH (08:14)
[2018-04-01] MEDS: Calcium Carbonate 500 MG Tablet PO SCH ×2 (08:15→21:46)
[2018-04-01] MEDS: Senna/Docusate Sodium 8.6/50 MG Tablet PO SCH ×2 (08:15→21:44)
[2018-04-01] MEDS: Gabapentin 100 MG Capsule PO SCH ×3 (08:15→17:27)
[2018-04-01] MEDS: levETIRAcetam 250 MG Tablet PO SCH ×2 (10:28→21:44)
--- NOTE | 2018-04-01 14:51 | P.PNPSY ---
Subjective Remarks: Patient seen in his room with nurse Tanya, chart reviewed, patient compliant medication. Patient napping but arousable to calm and pleasant with me. However he was observed earlier today in his wheelchair sitting near the exit to 2500. He continues to show a positive attitude towards finding appropriate placement. Continue to work with this. He does deny voices today that at times he appears to be responding to internal stimuli Review of Systems All other systems reviewed negative except as stated in HPI Mental Status Examination Appearance: Disheveled (Mildly) Consciousness: Alert Orientation: Person, Place Motor Activity: Other (in wheelchair) Speech: Unremarkable Language: Adequate Fund of Knowledge: Poor Attention and Concentration: Easily distracted Memory: Impaired Mood: Other ("ok") Affect: Irritable (at times) Thought Process & Associations: Disorganized (Mildly) Thought Content: Preoccupations (on smoking) Hallucination Type: None Delusion Type: None Suicidal Ideation: No Suicidal Plan: No Suicidal Intention: No Homicidal Ideation: No Homicidal Plan: No Homicidal Intention: No Insight: Poor Judgment: Poor Assessment and Plan - Assessment (1) PTSD (post-traumatic stress disorder) Code(s): F43.10 - Post-traumatic stress disorder, unspecified Status: Acute - Plan Plan: Patient remained somewhat guarded though compliant medication no significant behavioral problems except at times somewhat exit seeking Justification for Continued Inpatient Stay: At this point patient would decompensate a place to the lower level of care Discharge Planning: To be determined
[2018-04-01] MEDS: Lidocaine 5% Patch T-DERMAL SCH (21:44)
[2018-04-01] MEDS: Divalproex 250 MG DR Tablet PO SCH (21:45)
[2018-04-02] MEDS: Baclofen 10 MG Tablet PO SCH ×3 (03:52→17:37)
[2018-04-02] MEDS: Sertraline 100 MG Tablet PO SCH (09:11)
[2018-04-02] MEDS: Senna/Docusate Sodium 8.6/50 MG Tablet PO SCH ×2 (09:12→20:11)
[2018-04-02] MEDS: Gabapentin 100 MG Capsule PO SCH ×3 (09:12→17:38)
[2018-04-02] MEDS: Lactobacillus Acidophilus/L. Spores Tablet PO SCH (09:13)
[2018-04-02] MEDS: Calcium Carbonate 500 MG Tablet PO SCH ×2 (09:13→20:11)
[2018-04-02] MEDS: levETIRAcetam 250 MG Tablet PO SCH ×2 (09:16→21:13)
--- NOTE | 2018-04-02 12:53 | P.PNPSY ---
Subjective Remarks: Pt seen and discussed with staff. He has been compliant with medications and tolerating without side effects. RNs report that today he has been less irritable and more cooperative with care. No aggression today. He states that he is sad and depressed over a break up with custodial girlfriend. He states that life isn't worth living and he thinks of dying. Mental Status Examination Appearance: Disheveled (Mildly) Consciousness: Alert Orientation: Person, Place Motor Activity: Other (in wheelchair) Speech: Unremarkable Language: Adequate Fund of Knowledge: Poor Attention and Concentration: Easily distracted Memory: Impaired Mood: Other ("ok") Affect: Irritable (at times) Thought Process & Associations: Disorganized (Mildly) Thought Content: Preoccupations (on smoking) Hallucination Type: None Delusion Type: None Suicidal Ideation: Yes (vague, no plan) Suicidal Plan: No Suicidal Intention: No Homicidal Ideation: No Homicidal Plan: No Homicidal Intention: No Insight: Poor Judgment: Poor Assessment and Plan - Assessment (1) PTSD (post-traumatic stress disorder) Code(s): F43.10 - Post-traumatic stress disorder, unspecified Status: Acute - Plan Plan: Continue current tx plan Justification for Continued Inpatient Stay: risk of decompensation
[2018-04-02] MEDS: Divalproex 250 MG DR Tablet PO SCH (20:10)
[2018-04-02] MEDS: Lidocaine 5% Patch T-DERMAL SCH (20:10)
[2018-04-03] MEDS: Baclofen 10 MG Tablet PO SCH ×3 (01:06→17:35)
[2018-04-03] MEDS: Lactobacillus Acidophilus/L. Spores Tablet PO SCH (06:04)
[2018-04-03] MEDS: Sertraline 100 MG Tablet PO SCH (08:13)
[2018-04-03] MEDS: Senna/Docusate Sodium 8.6/50 MG Tablet PO SCH ×2 (08:13→20:21)
[2018-04-03] MEDS: Calcium Carbonate 500 MG Tablet PO SCH ×2 (08:14→20:21)
[2018-04-03] MEDS: Gabapentin 100 MG Capsule PO SCH ×3 (08:14→17:35)
[2018-04-03] MEDS: Acetaminophen 325 MG Tablet PO PRN (08:15)
[2018-04-03] MEDS: levETIRAcetam 250 MG Tablet PO SCH ×2 (10:44→21:30)
--- NOTE | 2018-04-03 13:37 | P.PNPSY ---
Subjective Remarks: Pt seen and discussed with staff. He was compliant with medications today. No aggression or agitation today. He reports depression improved today. No SI/HI Mental Status Examination Appearance: Disheveled (Mildly) Consciousness: Alert Orientation: Person, Place Motor Activity: Other (in wheelchair) Speech: Unremarkable Language: Adequate Fund of Knowledge: Poor Attention and Concentration: Easily distracted Memory: Impaired Mood: Sad Affect: Sad Thought Process & Associations: Tangential Thought Content: Appropriate Hallucination Type: None Delusion Type: None Suicidal Ideation: No (denies today) Suicidal Plan: No Suicidal Intention: No Homicidal Ideation: No Homicidal Plan: No Homicidal Intention: No Insight: Poor Judgment: Poor Assessment and Plan - Assessment (1) PTSD (post-traumatic stress disorder) Code(s): F43.10 - Post-traumatic stress disorder, unspecified Status: Acute - Plan Plan: Continue current tx plan Justification for Continued Inpatient Stay: risk of decompensation
[2018-04-03] MEDS: Lidocaine 5% Patch T-DERMAL SCH (20:20)
[2018-04-03] MEDS: Divalproex 250 MG DR Tablet PO SCH (20:20)
[2018-04-04] MEDS: Baclofen 10 MG Tablet PO SCH ×3 (02:15→17:02)
[2018-04-04] MEDS: Lactobacillus Acidophilus/L. Spores Tablet PO SCH (06:10)
[2018-04-04] MEDS: Gabapentin 100 MG Capsule PO SCH ×3 (08:48→17:02)
[2018-04-04] MEDS: Senna/Docusate Sodium 8.6/50 MG Tablet PO SCH ×2 (08:48→22:25)
[2018-04-04] MEDS: Sertraline 100 MG Tablet PO SCH (08:48)
[2018-04-04] MEDS: Calcium Carbonate 500 MG Tablet PO SCH ×2 (08:52→22:26)
[2018-04-04] MEDS: levETIRAcetam 250 MG Tablet PO SCH ×2 (09:10→22:25)
--- NOTE | 2018-04-04 09:36 | P.PNPSY ---
Subjective Remarks: Patient seen in his room with floor staff, chart reviewed, patient discussed with treatment team today. Patient compliant medications. Patient continues somewhat confused but overall able to discuss placement issues. He is still willing to go to an appropriate facility, there is still some focusing on smoking but he realizes that there are always restrictions with that wherever he may be placed. However placement is becoming more and more problematic. For now continue treatment Review of Systems All other systems reviewed negative except as stated in HPI Mental Status Examination Appearance: Disheveled (Mildly) Consciousness: Alert Orientation: Person, Place Motor Activity: Other (in wheelchair) Speech: Unremarkable Language: Adequate Fund of Knowledge: Poor Attention and Concentration: Easily distracted Memory: Impaired Mood: Sad Affect: Sad Thought Process & Associations: Tangential Thought Content: Appropriate Hallucination Type: None Delusion Type: None Suicidal Ideation: No (denies today) Suicidal Plan: No Suicidal Intention: No Homicidal Ideation: No Homicidal Plan: No Homicidal Intention: No Insight: Poor Judgment: Poor Assessment and Plan - Assessment (1) PTSD (post-traumatic stress disorder) Code(s): F43.10 - Post-traumatic stress disorder, unspecified Status: Acute - Plan Plan: Patient remains somewhat vigilant mildly confused but overall no significant behavioral problems, compliant medications Justification for Continued Inpatient Stay: At this time patient would decompensate if placed in a lower level of care Discharge Planning: To be determined place was becoming more problematic
[2018-04-04] MEDS: Divalproex 250 MG DR Tablet PO SCH (22:24)
[2018-04-04] MEDS: Lidocaine 5% Patch T-DERMAL SCH (22:26)
[2018-04-05] MEDS: Baclofen 10 MG Tablet PO SCH ×3 (04:35→17:00)
[2018-04-05] MEDS: Sertraline 100 MG Tablet PO SCH (08:21)
[2018-04-05] MEDS: Calcium Carbonate 500 MG Tablet PO SCH ×2 (08:22→19:59)
[2018-04-05] MEDS: Gabapentin 100 MG Capsule PO SCH ×3 (08:22→17:00)
[2018-04-05] MEDS: Senna/Docusate Sodium 8.6/50 MG Tablet PO SCH ×2 (08:22→20:00)
[2018-04-05] MEDS: Lactobacillus Acidophilus/L. Spores Tablet PO SCH (08:22)
[2018-04-05] MEDS: levETIRAcetam 250 MG Tablet PO SCH ×2 (09:01→21:40)
--- NOTE | 2018-04-05 09:20 | P.PNPSY ---
Subjective Remarks: Patient seen in his room with nurse Tanya, chart reviewed, patient complaint medications. Patient calm cooperative continues to cope with and tolerate placement issues. He has been no behavioral problem. The 2, becomes a little feisty he is able to be redirected for now continue treatment Review of Systems All other systems reviewed negative except as stated in HPI Mental Status Examination Appearance: Disheveled (Mildly) Consciousness: Alert Orientation: Person, Place Motor Activity: Other (in wheelchair) Speech: Unremarkable Language: Adequate Fund of Knowledge: Poor Attention and Concentration: Easily distracted Memory: Impaired Mood: Sad Affect: Sad Thought Process & Associations: Tangential Thought Content: Appropriate Hallucination Type: None Delusion Type: None Suicidal Ideation: No (denies today) Suicidal Plan: No Suicidal Intention: No Homicidal Ideation: No Homicidal Plan: No Homicidal Intention: No Insight: Poor Judgment: Poor Assessment and Plan - Assessment (1) PTSD (post-traumatic stress disorder) Code(s): F43.10 - Post-traumatic stress disorder, unspecified Status: Acute - Plan Plan: Patient calm cooperative with me compliant medications. Continues to cope with placement issues Justification for Continued Inpatient Stay: At this time patient would decompensate if not placed in an appropriate level of care Discharge Planning: To be determined
[2018-04-05] MEDS: Lidocaine 5% Patch T-DERMAL SCH (19:59)
[2018-04-05] MEDS: Divalproex 250 MG DR Tablet PO SCH (20:00)
[2018-04-06] MEDS: Baclofen 10 MG Tablet PO SCH ×3 (02:24→17:15)
[2018-04-06] MEDS: Gabapentin 100 MG Capsule PO SCH ×3 (09:12→17:15)
[2018-04-06] MEDS: Lactobacillus Acidophilus/L. Spores Tablet PO SCH (09:12)
[2018-04-06] MEDS: Sertraline 100 MG Tablet PO SCH (09:12)
[2018-04-06] MEDS: Calcium Carbonate 500 MG Tablet PO SCH ×2 (09:13→20:44)
[2018-04-06] MEDS: levETIRAcetam 250 MG Tablet PO SCH (09:13)
[2018-04-06] MEDS: Senna/Docusate Sodium 8.6/50 MG Tablet PO SCH ×2 (09:13→20:44)
--- NOTE | 2018-04-06 12:09 | P.PNPSY ---
Subjective Remarks: Patient seen and carmichael with nurse Serenity, chart reviewed, patient compliant medications. Patient somewhat sad today. He stating that he broke up with his girlfriend. He realized with his length of stay here and his probable placement he is somewhat of impediment to her progressing. Thus she broke up with her saying he still loves her and that may be in the future they can reunite. Patient process that well. For now continue treatment Review of Systems All other systems reviewed negative except as stated in HPI Mental Status Examination Appearance: Disheveled (Mildly) Consciousness: Alert Orientation: Person, Place Motor Activity: Other (in wheelchair) Speech: Unremarkable Language: Adequate Fund of Knowledge: Poor Attention and Concentration: Easily distracted Memory: Impaired Mood: Sad Affect: Sad Thought Process & Associations: Tangential Thought Content: Appropriate Hallucination Type: None Delusion Type: None Suicidal Ideation: No (denies today) Suicidal Plan: No Suicidal Intention: No Homicidal Ideation: No Homicidal Plan: No Homicidal Intention: No Insight: Poor Judgment: Poor Assessment and Plan - Assessment (1) PTSD (post-traumatic stress disorder) Code(s): F43.10 - Post-traumatic stress disorder, unspecified Status: Acute - Plan Plan: Patient somewhat down today said about his leading to breakup with his girlfriend. He is otherwise no behavioral problems he remains at times somewhat irritable and cantankerous but overall continues fairly stable Justification for Continued Inpatient Stay: At this time patient would decompensate if not placed in an appropriate level of care Discharge Planning: Placement remains quite problematic
[2018-04-06] MEDS: Divalproex 250 MG DR Tablet PO SCH (20:45)
[2018-04-07] MEDS: Lidocaine 5% Patch T-DERMAL SCH ×2 (00:29→22:49)
[2018-04-07] MEDS ORDERED: levETIRAcetam 250 MG Tablet PO ONE (01:00)
[2018-04-07] MEDS: Baclofen 10 MG Tablet PO SCH ×3 (01:08→17:47)
[2018-04-07] MEDS: levETIRAcetam 250 MG Tablet PO SCH ×3 (01:12→22:50)
[2018-04-07] MEDS: Gabapentin 100 MG Capsule PO SCH ×3 (09:18→17:47)
[2018-04-07] MEDS: Lactobacillus Acidophilus/L. Spores Tablet PO SCH (09:18)
[2018-04-07] MEDS: Calcium Carbonate 500 MG Tablet PO SCH ×2 (09:19→20:14)
[2018-04-07] MEDS: Senna/Docusate Sodium 8.6/50 MG Tablet PO SCH ×2 (09:22→20:14)
[2018-04-07] MEDS: Sertraline 100 MG Tablet PO SCH (09:23)
--- NOTE | 2018-04-07 12:51 | P.PNPSY ---
Subjective Remarks: Patient seen and carmichael with floor staff, chart reviewed, patient complaint medications. Patient overall calm cooperative continues to be resigned to breakup with his girlfriend, continues to cooperative Looking for placement. There is still the fascination with him related to his desire to find a placement that allows him to smoke he continues to deny suicidality homicidality voices or visions Review of Systems All other systems reviewed negative except as stated in HPI Mental Status Examination Appearance: Disheveled (Mildly) Consciousness: Alert Orientation: Person, Place Motor Activity: Other (in wheelchair) Speech: Unremarkable Language: Adequate Fund of Knowledge: Poor Attention and Concentration: Easily distracted Memory: Impaired Mood: Sad Affect: Sad Thought Process & Associations: Tangential Thought Content: Appropriate Hallucination Type: None Delusion Type: None Suicidal Ideation: No (denies today) Suicidal Plan: No Suicidal Intention: No Homicidal Ideation: No Homicidal Plan: No Homicidal Intention: No Insight: Poor Judgment: Poor Assessment and Plan - Assessment (1) PTSD (post-traumatic stress disorder) Code(s): F43.10 - Post-traumatic stress disorder, unspecified Status: Acute - Plan Plan: Patient continues somewhat irritable and feisty but overall most significant behavioral problems Justification for Continued Inpatient Stay: At this time patient would decompensate a place to a lower level of care Discharge Planning: To be determined placement remains problematic
[2018-04-07] MEDS: Divalproex 250 MG DR Tablet PO SCH (20:14)
[2018-04-08] MEDS: Baclofen 10 MG Tablet PO SCH ×3 (03:01→17:02)
[2018-04-08] MEDS: Lactobacillus Acidophilus/L. Spores Tablet PO SCH (06:03)
[2018-04-08] MEDS: Senna/Docusate Sodium 8.6/50 MG Tablet PO SCH ×2 (08:19→20:29)
[2018-04-08] MEDS: Gabapentin 100 MG Capsule PO SCH ×3 (08:19→17:02)
[2018-04-08] MEDS: Calcium Carbonate 500 MG Tablet PO SCH ×2 (08:20→20:28)
[2018-04-08] MEDS: Sertraline 100 MG Tablet PO SCH (08:20)
[2018-04-08] MEDS: levETIRAcetam 250 MG Tablet PO SCH ×3 (08:21→21:03)
--- NOTE | 2018-04-08 12:54 | P.PNPSY ---
Subjective Remarks: Patient seen in his room with floor staff, chart reviewed, patient compliant medications. Patient discussed with nurse. Patient continues calm cooperative times a little feisty. He states she is talked with his girlfriend. He states that she is telling him that she wishes to continue the relationship. He is excited about that. Though he still willing to look at placement Review of Systems All other systems reviewed negative except as stated in HPI Mental Status Examination Appearance: Disheveled (Mildly) Consciousness: Alert Orientation: Person, Place Motor Activity: Other (in wheelchair) Speech: Unremarkable Language: Adequate Fund of Knowledge: Poor Attention and Concentration: Easily distracted Memory: Impaired Mood: Sad Affect: Sad Thought Process & Associations: Tangential Thought Content: Appropriate Hallucination Type: None Delusion Type: None Suicidal Ideation: No (denies today) Suicidal Plan: No Suicidal Intention: No Homicidal Ideation: No Homicidal Plan: No Homicidal Intention: No Insight: Poor Judgment: Poor Assessment and Plan - Assessment (1) PTSD (post-traumatic stress disorder) Code(s): F43.10 - Post-traumatic stress disorder, unspecified Status: Acute - Plan Plan: Patient continues somewhat irritable and feisty though no significant behavioral problems. Compliant medication Justification for Continued Inpatient Stay: At this point patient would decompensate a place to the lower level of care Discharge Planning: To be determined
[2018-04-08] MEDS: Lidocaine 5% Patch T-DERMAL SCH (20:27)
[2018-04-08] MEDS: Divalproex 250 MG DR Tablet PO SCH (20:28)
[2018-04-09] MEDS: Baclofen 10 MG Tablet PO SCH ×3 (02:17→17:45)
[2018-04-09] MEDS: Sertraline 100 MG Tablet PO SCH (09:38)
[2018-04-09] MEDS: levETIRAcetam 250 MG Tablet PO SCH ×2 (09:38→21:33)
[2018-04-09] MEDS: Senna/Docusate Sodium 8.6/50 MG Tablet PO SCH ×2 (09:38→21:31)
[2018-04-09] MEDS: Gabapentin 100 MG Capsule PO SCH ×3 (09:38→17:45)
[2018-04-09] MEDS: Lactobacillus Acidophilus/L. Spores Tablet PO SCH (09:38)
[2018-04-09] MEDS: Calcium Carbonate 500 MG Tablet PO SCH ×2 (09:39→21:31)
--- NOTE | 2018-04-09 16:46 | P.PNPSY ---
Subjective Remarks: Patient was seen and case discussed with nursing. Patient is less irritable today. He is perseverant about minutia. Today, he is concerned the nurse yesterday forgot to give him a snack. Today, the nurse as he was religiously preoccupied quite irritable. Mental Status Examination Appearance: Disheveled (Mildly) Consciousness: Alert Orientation: Person, Place Motor Activity: Other (in wheelchair) Speech: Unremarkable Language: Adequate Fund of Knowledge: Poor Attention and Concentration: Easily distracted Memory: Impaired Mood: Irritable Affect: Sad Thought Process & Associations: Tangential Thought Content: Appropriate Hallucination Type: None Delusion Type: None Suicidal Ideation: No (denies today) Suicidal Plan: No Suicidal Intention: No Homicidal Ideation: No Homicidal Plan: No Homicidal Intention: No Insight: Poor Judgment: Poor Assessment and Plan - Assessment (1) PTSD (post-traumatic stress disorder) Code(s): F43.10 - Post-traumatic stress disorder, unspecified Status: Acute - Plan Plan: Continue current treatment plan Justification for Continued Inpatient Stay: Patient would decompensate in a less restrictive setting
[2018-04-09] MEDS: Lidocaine 5% Patch T-DERMAL SCH (21:30)
[2018-04-09] MEDS: Divalproex 250 MG DR Tablet PO SCH (21:31)
[2018-04-10] MEDS: Baclofen 10 MG Tablet PO SCH ×3 (02:59→17:01)
[2018-04-10] MEDS: Sertraline 100 MG Tablet PO SCH (08:51)
[2018-04-10] MEDS: Lactobacillus Acidophilus/L. Spores Tablet PO SCH (08:51)
[2018-04-10] MEDS: Calcium Carbonate 500 MG Tablet PO SCH ×2 (08:51→20:33)
[2018-04-10] MEDS: Gabapentin 100 MG Capsule PO SCH ×3 (08:51→17:01)
[2018-04-10] MEDS: Senna/Docusate Sodium 8.6/50 MG Tablet PO SCH ×2 (08:52→20:33)
[2018-04-10] MEDS: levETIRAcetam 250 MG Tablet PO SCH ×2 (09:09→21:47)
--- NOTE | 2018-04-10 16:24 | P.PNPSY ---
Subjective Remarks: Patient was seen and case discussed with nursing. Per nursing, patient was sedated this afternoon and his medications were held. Subsequently he got up from bed and is oriented and interactive during the interview. Mood has improved and he is less oppositional and angry. Behaving well on the unit, no outbursts Mental Status Examination Appearance: Disheveled (Mildly) Consciousness: Alert Orientation: Person, Place Motor Activity: Other (in wheelchair) Speech: Unremarkable Language: Adequate Fund of Knowledge: Poor Attention and Concentration: Easily distracted Memory: Impaired Mood: Appropriate Affect: Sad Thought Process & Associations: Circumstantial, Tangential Thought Content: Appropriate Hallucination Type: None Delusion Type: None Suicidal Ideation: No (denies today) Suicidal Plan: No Suicidal Intention: No Homicidal Ideation: No Homicidal Plan: No Homicidal Intention: No Insight: Poor Judgment: Poor Assessment and Plan - Assessment (1) PTSD (post-traumatic stress disorder) Code(s): F43.10 - Post-traumatic stress disorder, unspecified Status: Acute - Plan Plan: Continue current treatment plan Justification for Continued Inpatient Stay: Patient would decompensate in a less restrictive setting
[2018-04-10] MEDS: Lidocaine 5% Patch T-DERMAL SCH (20:32)
[2018-04-10] MEDS: Divalproex 250 MG DR Tablet PO SCH (20:33)
[2018-04-11] MEDS: Baclofen 10 MG Tablet PO SCH ×3 (01:38→17:23)
[2018-04-11] MEDS: Sertraline 100 MG Tablet PO SCH (09:50)
[2018-04-11] MEDS: levETIRAcetam 250 MG Tablet PO SCH ×2 (09:50→21:10)
[2018-04-11] MEDS: Gabapentin 100 MG Capsule PO SCH ×3 (09:50→17:23)
[2018-04-11] MEDS: Lactobacillus Acidophilus/L. Spores Tablet PO SCH (09:50)
[2018-04-11] MEDS: Calcium Carbonate 500 MG Tablet PO SCH ×2 (09:50→21:08)
[2018-04-11] MEDS: Senna/Docusate Sodium 8.6/50 MG Tablet PO SCH ×2 (09:51→21:10)
--- NOTE | 2018-04-11 16:46 | P.PNPSY ---
Subjective Remarks: Patient seen for follow-up, chart reviewed. Discussion with nursing staff reported that the patient calm, cooperative, no behavioral disturbances. Patient was found lying hospital bed noted to be superficially cooperative but alert. Patient was mostly nonverbal during interview and only making hand gestures compliant to questioning. Patient states that he is feeling "tired", reports having eaten breakfast this morning and showered this morning and wants to shave today. Patient agrees to try to attend group later today stated he was wanted to stay in bed and sleep. Patient was encouraged to participate more in groups and activities which he just reveals had not been knowledge. Review of Systems All other systems reviewed negative except as stated in HPI Mental Status Examination Appearance: Disheveled (Mildly) Consciousness: Alert Orientation: Person, Place Motor Activity: Other (in wheelchair) Speech: Unremarkable Language: Adequate Fund of Knowledge: Poor Attention and Concentration: Easily distracted Memory: Impaired Mood: Appropriate Affect: Sad Thought Process & Associations: Other (concrete) Thought Content: Appropriate Hallucination Type: None Delusion Type: None Suicidal Ideation: No (denies today) Suicidal Plan: No Suicidal Intention: No Homicidal Ideation: No Homicidal Plan: No Homicidal Intention: No Insight: Poor Judgment: Poor Assessment and Plan - Assessment (1) PTSD (post-traumatic stress disorder) Code(s): F43.10 - Post-traumatic stress disorder, unspecified Status: Acute - Plan Plan: Patient noted to be mostly nonverbal today, appearing dysphoric. Continue current treatment, continue to monitor mood and behavior. Discharge planning in progress. Justification for Continued Inpatient Stay: At risk for further decompensation at lower level of care.
[2018-04-11] MEDS: Divalproex 250 MG DR Tablet PO SCH (21:09)
[2018-04-11] MEDS: Lidocaine 5% Patch T-DERMAL SCH (21:27)
[2018-04-12] MEDS: Lactobacillus Acidophilus/L. Spores Tablet PO SCH (06:44)
[2018-04-12] MEDS: Gabapentin 100 MG Capsule PO SCH ×3 (09:54→18:09)
[2018-04-12] MEDS: Sertraline 100 MG Tablet PO SCH (09:54)
[2018-04-12] MEDS: Senna/Docusate Sodium 8.6/50 MG Tablet PO SCH ×2 (09:54→23:10)
[2018-04-12] MEDS: Calcium Carbonate 500 MG Tablet PO SCH (09:55)
[2018-04-12] MEDS: Baclofen 10 MG Tablet PO SCH ×2 (09:55→18:09)
[2018-04-12] MEDS: levETIRAcetam 250 MG Tablet PO SCH ×2 (09:55→23:11)
--- NOTE | 2018-04-12 15:06 | P.PNPSY ---
Subjective Remarks: Patient seen and carmichael with floor staff, moving around in his wheelchair. Patient's little more irritable today. Chart reviewed. Patient compliant medication. Patient discussed with nurse. However he is still cooperative with looking at finding an appropriate placement. Though placement remains quite problematic. He denies suicidality voices or visions now continue treatment Review of Systems All other systems reviewed negative except as stated in HPI Mental Status Examination Appearance: Disheveled (Mildly) Consciousness: Alert Orientation: Person, Place Motor Activity: Other (in wheelchair) Speech: Unremarkable Language: Adequate Fund of Knowledge: Poor Attention and Concentration: Easily distracted Memory: Impaired Mood: Appropriate Affect: Sad Thought Process & Associations: Other (concrete) Thought Content: Appropriate Hallucination Type: None Delusion Type: None Suicidal Ideation: No (denies today) Suicidal Plan: No Suicidal Intention: No Homicidal Ideation: No Homicidal Plan: No Homicidal Intention: No Insight: Poor Judgment: Poor Assessment and Plan - Assessment (1) PTSD (post-traumatic stress disorder) Code(s): F43.10 - Post-traumatic stress disorder, unspecified Status: Acute - Plan Plan: Placement remains markedly problematic. Patient overall stable though it is the opinion of myself and the treatment team patient needs significant assistance and would never placement he is found Justification for Continued Inpatient Stay: At this time patient would decompensate if not placed in an appropriate level of care Discharge Planning: To be determined
[2018-04-12] MEDS: Divalproex 250 MG DR Tablet PO SCH (23:11)
[2018-04-13] MEDS: Baclofen 10 MG Tablet PO SCH ×4 (02:14→17:36)
[2018-04-13] MEDS: Calcium Carbonate 500 MG Tablet PO SCH ×4 (08:25→21:29)
[2018-04-13] MEDS: Senna/Docusate Sodium 8.6/50 MG Tablet PO SCH ×3 (08:25→20:35)
[2018-04-13] MEDS: Lactobacillus Acidophilus/L. Spores Tablet PO SCH (08:25)
[2018-04-13] MEDS: Gabapentin 100 MG Capsule PO SCH ×4 (08:25→17:36)
[2018-04-13] MEDS: Sertraline 100 MG Tablet PO SCH (08:32)
[2018-04-13] MEDS: levETIRAcetam 250 MG Tablet PO SCH ×3 (09:07→21:29)
--- NOTE | 2018-04-13 12:00 | P.PNPSY ---
Subjective Remarks: Patient seen today in day room with nurse Nina, chart reviewed, patient now showing some mixed compliance with his medication is somewhat more irritable and vigilant today. However he is redirectable. He continues to deny suicidality and voices. For now continue treatment Review of Systems All other systems reviewed negative except as stated in HPI Mental Status Examination Appearance: Disheveled (Mildly) Consciousness: Alert Orientation: Person, Place Motor Activity: Other (in wheelchair) Speech: Unremarkable Language: Adequate Fund of Knowledge: Poor Attention and Concentration: Easily distracted Memory: Impaired Mood: Appropriate, Irritable Affect: Irritable, Sad, Labile Thought Process & Associations: Other (concrete) Thought Content: Appropriate Hallucination Type: None Delusion Type: None Suicidal Ideation: No (denies today) Suicidal Plan: No Suicidal Intention: No Homicidal Ideation: No Homicidal Plan: No Homicidal Intention: No Insight: Poor Judgment: Poor Assessment and Plan - Assessment (1) PTSD (post-traumatic stress disorder) Code(s): F43.10 - Post-traumatic stress disorder, unspecified Status: Acute - Plan Plan: Patient is somewhat more irritable today though he continues calm compliant albeit with reluctance with his medication. For now continue treatment Justification for Continued Inpatient Stay: At this time patient would decompensate a place to a lower level of care Discharge Planning: To be determined placement remains quite problematic
[2018-04-13] MEDS: Divalproex 250 MG DR Tablet PO SCH (20:34)
[2018-04-13] MEDS: Lidocaine 5% Patch T-DERMAL SCH ×2 (20:34→21:27)
[2018-04-14] MEDS: Baclofen 10 MG Tablet PO SCH ×3 (01:40→18:34)
[2018-04-14] MEDS: levETIRAcetam 250 MG Tablet PO SCH ×2 (10:17→21:46)
[2018-04-14] MEDS: Senna/Docusate Sodium 8.6/50 MG Tablet PO SCH ×2 (10:17→21:46)
[2018-04-14] MEDS: Sertraline 100 MG Tablet PO SCH (10:18)
[2018-04-14] MEDS: Gabapentin 100 MG Capsule PO SCH ×3 (10:18→18:34)
[2018-04-14] MEDS: Lactobacillus Acidophilus/L. Spores Tablet PO SCH (10:18)
[2018-04-14] MEDS: Calcium Carbonate 500 MG Tablet PO SCH ×2 (10:18→21:46)
--- NOTE | 2018-04-14 13:32 | P.PNPSY ---
Subjective Remarks: Patient seen in his room with floor staff, chart reviewed, patient compliant medications, patient no significant behavioral problems still at times somewhat feisty and verbose but overall continues cooperative with us. Placement remains quite problematic Review of Systems All other systems reviewed negative except as stated in HPI Mental Status Examination Appearance: Disheveled (Mildly) Consciousness: Alert Orientation: Person, Place Motor Activity: Other (in wheelchair) Speech: Unremarkable Language: Adequate Fund of Knowledge: Poor Attention and Concentration: Easily distracted Memory: Impaired Mood: Appropriate, Irritable Affect: Irritable, Sad, Labile Thought Process & Associations: Other (concrete) Thought Content: Appropriate Hallucination Type: None Delusion Type: None Suicidal Ideation: No (denies today) Suicidal Plan: No Suicidal Intention: No Homicidal Ideation: No Homicidal Plan: No Homicidal Intention: No Insight: Poor Judgment: Poor Assessment and Plan - Assessment (1) PTSD (post-traumatic stress disorder) Code(s): F43.10 - Post-traumatic stress disorder, unspecified Status: Acute - Plan Plan: Patient remained somewhat irritable and at times somewhat intrusive but overall no significant behavioral problems Justification for Continued Inpatient Stay: At this time patient would decompensate if not placed in an appropriate level of care Discharge Planning: To be determined
[2018-04-14] MEDS: Lidocaine 5% Patch T-DERMAL SCH (20:00)
[2018-04-14] MEDS: Divalproex 250 MG DR Tablet PO SCH (21:46)
[2018-04-15] MEDS: Baclofen 10 MG Tablet PO SCH ×3 (05:00→17:28)
[2018-04-15] MEDS: Lactobacillus Acidophilus/L. Spores Tablet PO SCH (06:19)
[2018-04-15] MEDS: Gabapentin 100 MG Capsule PO SCH ×3 (08:46→17:28)
[2018-04-15] MEDS: Calcium Carbonate 500 MG Tablet PO SCH ×2 (08:47→21:02)
[2018-04-15] MEDS: Senna/Docusate Sodium 8.6/50 MG Tablet PO SCH ×2 (08:47→21:02)
[2018-04-15] MEDS: Sertraline 100 MG Tablet PO SCH (08:47)
--- NOTE | 2018-04-15 10:15 | P.PNPSY ---
Subjective Remarks: Patient is seen in his room with nurse Stanley, chart reviewed, patient compliant medication. Patient continues to cope with delays related to placement though is somewhat more irritable and intrusive today showing somewhat decreased insight and processing. For now continue treatment Review of Systems All other systems reviewed negative except as stated in HPI Mental Status Examination Appearance: Disheveled (Mildly) Consciousness: Alert Orientation: Person, Place Motor Activity: Other (in wheelchair) Speech: Unremarkable Language: Adequate Fund of Knowledge: Poor Attention and Concentration: Easily distracted Memory: Impaired Mood: Appropriate, Irritable Affect: Irritable, Sad, Labile Thought Process & Associations: Other (concrete) Thought Content: Appropriate Hallucination Type: None Delusion Type: None Suicidal Ideation: No (denies today) Suicidal Plan: No Suicidal Intention: No Homicidal Ideation: No Homicidal Plan: No Homicidal Intention: No Insight: Poor Judgment: Poor Assessment and Plan - Assessment (1) PTSD (post-traumatic stress disorder) Code(s): F43.10 - Post-traumatic stress disorder, unspecified Status: Acute - Plan Plan: Patient continues to show coping skills with delays though at times is intrusiveness confusion make things difficult for him Justification for Continued Inpatient Stay: At this time patient would decompensate if not placed in an appropriate level of care Discharge Planning: To be determined
[2018-04-15] MEDS: levETIRAcetam 250 MG Tablet PO SCH ×2 (12:00→21:02)
[2018-04-15] MEDS: Lidocaine 5% Patch T-DERMAL SCH (20:48)
[2018-04-15] MEDS: Divalproex 250 MG DR Tablet PO SCH (21:48)
[2018-04-16] MEDS: Baclofen 10 MG Tablet PO SCH ×3 (01:49→17:05)
[2018-04-16] MEDS: Lactobacillus Acidophilus/L. Spores Tablet PO SCH (06:31)
[2018-04-16] MEDS: levETIRAcetam 250 MG Tablet PO SCH ×2 (09:02→23:08)
[2018-04-16] MEDS: Senna/Docusate Sodium 8.6/50 MG Tablet PO SCH ×2 (09:02→20:35)
[2018-04-16] MEDS: Calcium Carbonate 500 MG Tablet PO SCH ×2 (09:02→20:36)
[2018-04-16] MEDS: Gabapentin 100 MG Capsule PO SCH ×3 (09:02→17:05)
[2018-04-16] MEDS: Sertraline 100 MG Tablet PO SCH (09:02)
--- NOTE | 2018-04-16 15:58 | P.PNPSY ---
Subjective Remarks: Today, patient is quite angry. He was hitting a door earlier with this foot. He is very paranoid believing that nursing is interrogating him. He starts yelling about his career. Very internally preoccupied. His chief focus was on getting food and once he got his meal early he did calm down Mental Status Examination Appearance: Disheveled (Mildly) Consciousness: Alert Orientation: Person, Place Motor Activity: Other (in wheelchair) Speech: Unremarkable Language: Adequate Fund of Knowledge: Poor Attention and Concentration: Easily distracted Memory: Impaired Mood: Appropriate, Irritable Affect: Irritable, Sad, Labile Thought Process & Associations: Other (concrete) Thought Content: Appropriate Hallucination Type: None Delusion Type: None Suicidal Ideation: No (denies today) Suicidal Plan: No Suicidal Intention: No Homicidal Ideation: No Homicidal Plan: No Homicidal Intention: No Insight: Poor Judgment: Poor Assessment and Plan - Assessment (1) PTSD (post-traumatic stress disorder) Code(s): F43.10 - Post-traumatic stress disorder, unspecified Status: Acute - Plan Plan: Continue current treatment plan Justification for Continued Inpatient Stay: Patient would decompensate in a less restrictive setting
[2018-04-16] MEDS: Divalproex 250 MG DR Tablet PO SCH (20:36)
[2018-04-16] MEDS: Lidocaine 5% Patch T-DERMAL SCH (20:42)
[2018-04-17] MEDS: Senna/Docusate Sodium 8.6/50 MG Tablet PO SCH ×4 (00:50→08:43)
[2018-04-17] MEDS: Calcium Carbonate 500 MG Tablet PO SCH ×3 (00:52→20:42)
[2018-04-17] MEDS: Baclofen 10 MG Tablet PO SCH ×3 (01:56→17:06)
[2018-04-17] MEDS: Lactobacillus Acidophilus/L. Spores Tablet PO SCH (06:01)
[2018-04-17] MEDS: Sertraline 100 MG Tablet PO SCH (08:43)
[2018-04-17] MEDS: Gabapentin 100 MG Capsule PO SCH ×3 (08:44→17:06)
[2018-04-17] MEDS: levETIRAcetam 250 MG Tablet PO SCH (10:22)
--- NOTE | 2018-04-17 12:14 | P.PNPSY ---
Subjective Remarks: Patient was seen and case discussed with nursing. Today, patient is markedly improved. He appears more lucid logical and goal oriented. He discussed his nutrition and cholesterol and future plans. He feels that the medications are working for him now. Eating and sleeping well. No outbursts today Mental Status Examination Appearance: Disheveled (Mildly) Consciousness: Alert Orientation: Person, Place Motor Activity: Other (in wheelchair) Speech: Unremarkable Language: Adequate Attention and Concentration: Easily distracted Memory: Impaired Mood: Appropriate Affect: Blunt Thought Process & Associations: Other (concrete) Thought Content: Appropriate Hallucination Type: None Delusion Type: None Suicidal Ideation: No (denies today) Suicidal Plan: No Suicidal Intention: No Homicidal Ideation: No Homicidal Plan: No Homicidal Intention: No Insight: Poor Judgment: Poor Assessment and Plan - Assessment (1) PTSD (post-traumatic stress disorder) Code(s): F43.10 - Post-traumatic stress disorder, unspecified Status: Acute - Plan Plan: Continue current treatment plan Justification for Continued Inpatient Stay: Patient would decompensate in a less restrictive setting
[2018-04-17] MEDS: Divalproex 250 MG DR Tablet PO SCH (20:41)
[2018-04-18] MEDS: Lidocaine 5% Patch T-DERMAL SCH ×2 (00:49→20:18)
[2018-04-18] MEDS: levETIRAcetam 250 MG Tablet PO SCH ×3 (00:50→21:48)
[2018-04-18] MEDS: Baclofen 10 MG Tablet PO SCH ×3 (01:01→18:10)
[2018-04-18] MEDS: Calcium Carbonate 500 MG Tablet PO SCH ×2 (09:54→20:17)
[2018-04-18] MEDS: Gabapentin 100 MG Capsule PO SCH ×3 (09:54→18:10)
[2018-04-18] MEDS: Lactobacillus Acidophilus/L. Spores Tablet PO SCH (09:54)
[2018-04-18] MEDS: Sertraline 100 MG Tablet PO SCH (09:54)
[2018-04-18] MEDS: Senna/Docusate Sodium 8.6/50 MG Tablet PO SCH ×2 (09:55→20:17)
--- NOTE | 2018-04-18 10:38 | P.PNPSY ---
Subjective Remarks: Patient seen in his wheelchair in the [facility] floor staff, chart reviewed, patient somewhat calmer more focused today this irritable less intrusive. Says medicines are working somewhat better. Continues to focus somewhat on discharge plans. For now continue treatment Review of Systems All other systems reviewed negative except as stated in HPI Mental Status Examination Appearance: Disheveled (Mildly) Consciousness: Alert Orientation: Person, Place Motor Activity: Other (in wheelchair) Speech: Unremarkable Language: Adequate Fund of Knowledge: Poor Attention and Concentration: Easily distracted Memory: Impaired Mood: Appropriate Affect: Blunt Thought Process & Associations: Other (concrete) Thought Content: Appropriate Hallucination Type: None Delusion Type: None Suicidal Ideation: No (denies today) Suicidal Plan: No Suicidal Intention: No Homicidal Ideation: No Homicidal Plan: No Homicidal Intention: No Insight: Poor Judgment: Poor Assessment and Plan - Assessment (1) PTSD (post-traumatic stress disorder) Code(s): F43.10 - Post-traumatic stress disorder, unspecified Status: Acute - Plan Plan: Patient somewhat less irritable today showing some slight improvement in his affect. For now continue treatment no change continue medications no change Justification for Continued Inpatient Stay: At this time patient would decompensate if not placed in an appropriate level of care Discharge Planning: Placement remains problematic
[2018-04-18] MEDS: Divalproex 250 MG DR Tablet PO SCH (20:16)
[2018-04-19] MEDS: Baclofen 10 MG Tablet PO SCH ×3 (03:22→17:12)
[2018-04-19] MEDS: Sertraline 100 MG Tablet PO SCH (09:17)
[2018-04-19] MEDS: levETIRAcetam 250 MG Tablet PO SCH ×2 (09:17→21:03)
[2018-04-19] MEDS: Lactobacillus Acidophilus/L. Spores Tablet PO SCH (09:18)
[2018-04-19] MEDS: Calcium Carbonate 500 MG Tablet PO SCH ×2 (09:18→21:02)
[2018-04-19] MEDS: Senna/Docusate Sodium 8.6/50 MG Tablet PO SCH ×2 (09:18→21:02)
[2018-04-19] MEDS: Gabapentin 100 MG Capsule PO SCH ×3 (09:18→17:12)
--- NOTE | 2018-04-19 10:09 | P.DSPSY ---
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 He was discharged late in the afternoon and appears to be 03/15 to go to [facility]. It appears when he got to that facility he became somewhat abstinent about not getting out of the vehicle. Becoming more more angry and belligerent leading to him being returned here to [facility]. Patient was seen by the nurse practitioner was felt to be a failed discharge though perhaps there is some behavioral issues also involved. In any event felt at that late in the afternoon that any attempt to transfer him back to the [facility] will been disastrous. Thus we felt was the safest option at that time to rehospitalize him admitted him the psychiatric unit to continue to work on placement issues and to perhaps adjust the discharge plans to better achieve success in the discharge. Patient seen by me today. He remains somewhat feisty but overall cooperative. It appears his main concern was the smoking policy at [facility]. We will reassure them that smoking was allowing outside of the buildings. This seemed to appease him. At this time I feel we need to continue this admission to verify that [facility] will allow him another chance. Or we need to find him another placement. At this time is willing to stay voluntarily to allow us the opportunity. Thus I will allow him to remain on a voluntary status at this point in time. We will continue all his existing medications. And consultations. He denies suicidality homicidality. He does deny voices at this time. Thus we will continue patient continue with his admitting diagnosis also Tobacco Use In Past 30 Days: Yes How Often Do You Have a Drink Containing Alcohol: Never Hospital Course: Patient's hospital course was extended due to placement issues with him, but also due to his irritability initial suicidal statements and vague psychotic features along with lability. He also suffered from flashbacks and dreams related to his PTSD. He showed both refusal and mixed compliance with medications through the early part of his hospitalization. He does denies suicidality homicidality voice or visions at the present time he also showed significant concern and caring for his "fianc" we met while at a local [facility]. They still have a relationship. This seems fairly much of a welfare-type relationship. In any event at this time patient is reached maximum benefit of this hospitalization is a bed available for him at the time was spent [facility] in [place]. Patient has been aware that is willing to go there. Thus patient be discharged today to that facility with Rx 1 month to follow up with services through that facility - Discharge Discharge Date: 04/19/18 - Discharge Diagnosis (1) PTSD (post-traumatic stress disorder) Diagnosis: Principal Code(s): F43.10 - Post-traumatic stress disorder, unspecified Status: Acute (2) Major depressive disorder, recurrent, severe w/o psychotic behavior Diagnosis: Secondary Code(s): F33.2 - Major depressive disorder, recurrent severe without psychotic features Status: Acute Discharge Disposition: Assisted Living Facility - Discharge Instructions Discharge Diet: Regular Diet Activities You Can Perform: Regular- No Restrictions - Discharge Time > 30 minutes Mental Status Examination Appearance: Disheveled (Mildly) Consciousness: Alert Orientation: Person, Place Motor Activity: Other (in wheelchair) Speech: Unremarkable Language: Adequate Fund of Knowledge: Poor Attention and Concentration: Easily distracted Memory: Impaired Mood: Appropriate Affect: Blunt Thought Process & Associations: Other (concrete) Thought Content: Appropriate Hallucination Type: None Delusion Type: None Suicidal Ideation: No (denies today) Suicidal Plan: No Suicidal Intention: No Homicidal Ideation: No Homicidal Plan: No Homicidal Intention: No Insight: Poor Judgment: Poor Discharge/Advance Care Plan - Results Vital Signs: Last Vital Signs Temp 98.7 F 04/19/18 06:30 Pulse 75 04/19/18 08:22 Resp 16 04/19/18 08:22 BP 102/59 L 04/19/18 08:22 Pulse Ox 95 04/19/18 08:22 Lab Results: Laboratory Results Hemoglobin A1c 4.8 % (4.3-6.0) 03/17/18 08:08 Triglycerides 167 mg/dL (42-150) H 03/17/18 08:08 Cholesterol 208 mg/dL (120-200) H 03/17/18 08:08 LDL Cholesterol, Calc 133 mg/dL (0-99) H 03/17/18 08:08 HDL Cholesterol 41.7 mg/dL (40.0-60.0) 03/17/18 08:08 TSH 6.350 uIU/mL (0.358-3.740) H 03/26/18 21:20 Free T4 0.51 ng/dL (0.76-1.46) L 03/26/18 21:20 Valproic Acid 81 mcg/mL (50-100) 03/27/18 20:41 Summary of Procedures: None done Imaging: ITS Impressions Hip X-Ray 03/26/18 00:00 CONCLUSION: Previous internal fixation, no fracture. Pending Results: None - Medications Number of antipsychotic medications at discharge: 1 - Discharge Care Plan Goals to Promote Your Health: * To prevent worsening of your condition and complications * To maintain your health at the optimal level Directions to Meet Your Goals: Take your medications as prescribed Follow your dietary instruction Follow activity as directed Keep your appointments as scheduled Take your immunizations and boosters as scheduled If your symptoms worsen call your PCP, if no PCP go to Urgent Care Center or Emergency Room For 08/03 questions related to your inpatient stay or results of tests pending at discharge, please contact Dr. Eder Pina MD at Smoking is Dangerous to Your Health. Avoid second hand smoking
[2018-04-19] MEDS: Divalproex 250 MG DR Tablet PO SCH (21:01)
[2018-04-19] MEDS: Lidocaine 5% Patch T-DERMAL SCH (21:03)
[2018-04-20] MEDS: Baclofen 10 MG Tablet PO SCH ×3 (05:24→18:16)
[2018-04-20] MEDS: Lactobacillus Acidophilus/L. Spores Tablet PO SCH (07:24)
[2018-04-20] MEDS: Sertraline 100 MG Tablet PO SCH (09:17)
[2018-04-20] MEDS: Calcium Carbonate 500 MG Tablet PO SCH ×2 (09:17→20:43)
[2018-04-20] MEDS: levETIRAcetam 250 MG Tablet PO SCH ×2 (09:18→21:26)
[2018-04-20] MEDS: Senna/Docusate Sodium 8.6/50 MG Tablet PO SCH ×2 (09:18→20:43)
[2018-04-20] MEDS: Gabapentin 100 MG Capsule PO SCH ×3 (09:18→18:16)
--- NOTE | 2018-04-20 12:35 | P.PNPSY ---
Subjective Remarks: Patient's discharge yesterday needed to be canceled because placement cancel their admission. Patient is seen today in day room chart reviewed. Patient coping with delays and placement showing some insight into the complexity involved. He continues to denies suicidality homicidality voice or visions. Compliant medications. For now continue treatment Review of Systems All other systems reviewed negative except as stated in HPI Mental Status Examination Appearance: Disheveled (Mildly) Consciousness: Alert Orientation: Person, Place Motor Activity: Other (in wheelchair) Speech: Unremarkable Language: Adequate Fund of Knowledge: Poor Attention and Concentration: Easily distracted Memory: Impaired Mood: Appropriate Affect: Blunt Thought Process & Associations: Other (concrete) Thought Content: Appropriate Hallucination Type: None Delusion Type: None Suicidal Ideation: No (denies today) Suicidal Plan: No Suicidal Intention: No Homicidal Ideation: No Homicidal Plan: No Homicidal Intention: No Insight: Poor Judgment: Poor Assessment and Plan - Assessment (1) PTSD (post-traumatic stress disorder) Code(s): F43.10 - Post-traumatic stress disorder, unspecified Status: Acute - Plan Plan: Patient coping with the delays and placement coping with cancellation of the discharge. Justification for Continued Inpatient Stay: At this time patient would decompensate a place to a lower level of care Discharge Planning: To be determined
[2018-04-20] MEDS: Divalproex 250 MG DR Tablet PO SCH (20:42)
[2018-04-20] MEDS: Lidocaine 5% Patch T-DERMAL SCH (20:42)
[2018-04-21] MEDS: Baclofen 10 MG Tablet PO SCH ×3 (03:32→17:57)
[2018-04-21] MEDS: Lactobacillus Acidophilus/L. Spores Tablet PO SCH (09:14)
[2018-04-21] MEDS: Calcium Carbonate 500 MG Tablet PO SCH ×2 (09:15→20:27)
[2018-04-21] MEDS: levETIRAcetam 250 MG Tablet PO SCH ×2 (09:15→21:03)
[2018-04-21] MEDS: Gabapentin 100 MG Capsule PO SCH ×3 (09:15→17:57)
[2018-04-21] MEDS: Sertraline 100 MG Tablet PO SCH (09:15)
[2018-04-21] MEDS: Senna/Docusate Sodium 8.6/50 MG Tablet PO SCH ×2 (09:15→20:26)
--- NOTE | 2018-04-21 11:47 | P.TTN ---
- Patient Problems Problems: 1. Discharge planning 2. Medication compliance 3. Knowledge deficit 4. Lack of coping skills - Progress Toward Goals Provider Present: Dr. Ade Pina Provider Input: Patient remains placement issue Psychiatric Counselors Present: Other Psychiatric Therapist Input: Jael - Patient has been cooperative and has had decrease in behaviors though at times may become frusterated due to hearing loss. Has been mostly understanding of placment issues. Has been desiring placement. Group Spec/RT/OT/DYER Present: CASPER Pedraza Group Spec/RT/OT/DYER Input: Does not attend groups - Discharge Plan Continue to seek placement with SNF and work with [employer]. Medicaid application is in process of being filed. - Documentation Teaching Recipient: Patient
--- NOTE | 2018-04-21 13:15 | P.PNPSY ---
Subjective Remarks: Patient seen in his room with nurse Anna, chart reviewed, patient compliant medication. Patient continues to show good coping skills related to placement issues. He has been no significant behavioral problems. For now continue treatment Review of Systems All other systems reviewed negative except as stated in HPI Mental Status Examination Appearance: Disheveled (Mildly) Consciousness: Alert Orientation: Person, Place Motor Activity: Other (in wheelchair) Speech: Unremarkable Language: Adequate Fund of Knowledge: Poor Attention and Concentration: Easily distracted Memory: Impaired Mood: Appropriate Affect: Blunt Thought Process & Associations: Other (concrete) Thought Content: Appropriate Hallucination Type: None Delusion Type: None Suicidal Ideation: No (denies today) Suicidal Plan: No Suicidal Intention: No Homicidal Ideation: No Homicidal Plan: No Homicidal Intention: No Insight: Poor Judgment: Poor Assessment and Plan - Assessment (1) PTSD (post-traumatic stress disorder) Code(s): F43.10 - Post-traumatic stress disorder, unspecified Status: Acute - Plan Plan: Patient remains somewhat vigilant at times somewhat intrusive but overall no significant behavioral problems, compliant medications, we will check Depakote blood level over tomorrow Justification for Continued Inpatient Stay: At this time patient would decompensate if placed in a lower level of care Discharge Planning: To be determined placement remains problematic
[2018-04-21] MEDS: Lidocaine 5% Patch T-DERMAL SCH (20:26)
[2018-04-21] MEDS: Divalproex 250 MG DR Tablet PO SCH (20:27)
[2018-04-22] MEDS: Baclofen 10 MG Tablet PO SCH ×3 (03:50→17:28)
[2018-04-22] MEDS: Lactobacillus Acidophilus/L. Spores Tablet PO SCH (09:19)
[2018-04-22] MEDS: Gabapentin 100 MG Capsule PO SCH ×3 (09:21→17:29)
[2018-04-22] MEDS: Senna/Docusate Sodium 8.6/50 MG Tablet PO SCH ×2 (09:22→20:27)
[2018-04-22] MEDS: Sertraline 100 MG Tablet PO SCH (09:22)
[2018-04-22] MEDS: Calcium Carbonate 500 MG Tablet PO SCH ×2 (09:22→20:27)
[2018-04-22] MEDS: levETIRAcetam 250 MG Tablet PO SCH ×2 (09:23→23:07)
[2018-04-22] MEDS ORDERED: LORazepam 1 MG Tablet PO ONE (11:26)
--- NOTE | 2018-04-22 11:29 | P.PNPSY ---
Subjective Remarks: Patient seen in his room with nurse Rosalinda, chart reviewed, the patient slipped out of his wheelchair landed on his left hip is complaining of some pain there but he does have fair passive range of motion. We will be getting x-rays of his left hip and pelvis. Patient somewhat irritable today trying some resistance to medication and his lunch. We will also offer him 1 mg Ativan p.o. and call to radiology. Placement remains problematic Review of Systems All other systems reviewed negative except as stated in HPI Mental Status Examination Appearance: Disheveled (Mildly) Consciousness: Alert Orientation: Person, Place Motor Activity: Other (in wheelchair) Speech: Unremarkable Language: Adequate Fund of Knowledge: Poor Attention and Concentration: Easily distracted Memory: Impaired Mood: Appropriate Affect: Blunt Thought Process & Associations: Other (concrete) Thought Content: Appropriate Hallucination Type: None Delusion Type: None Suicidal Ideation: No (denies today) Suicidal Plan: No Suicidal Intention: No Homicidal Ideation: No Homicidal Plan: No Homicidal Intention: No Insight: Poor Judgment: Poor Assessment and Plan - Assessment (1) PTSD (post-traumatic stress disorder) Code(s): F43.10 - Post-traumatic stress disorder, unspecified Status: Acute - Plan Plan: We continue to await word on placement issues. Patient did fall today will get x-ray of his left hip and pelvis. Otherwise he continues somewhat cantankerous but overall cooperative with us Justification for Continued Inpatient Stay: At this time patient would decompensate a place to a lower level of care Discharge Planning: To be determined
--- NOTE | 2018-04-22 13:52 | XR ---
EXAM DATE: 04/22/2018 1:49 PM EDT AGE/SEX: 62 years / Male INDICATIONS: Pain in left hip from fall. CLINICAL DATA: This is the patient's initial encounter. Patient reports that signs and symptoms have been present for 1 day and indicates a pain score of 5/10. MEDICAL/SURGICAL HISTORY: None. . Hip pinning, left. [place] [facility] [place] . FINDINGS: Previous nailing of the left hip with degenerative changes evident. I do not see evidence for a new f racture. Degenerative changes lower lumbar spine. Moderate vascular calcifications. CONCLUSION: Negative for fracture or dislocation. Followup in 7-10 days is suggested if symptoms persist. Electronically signed by: Silvestre Iniguez MD 04/22/2018 1:51 PM EDT
[2018-04-22] MEDS: Divalproex 250 MG DR Tablet PO SCH (20:26)
[2018-04-22] MEDS: Lidocaine 5% Patch T-DERMAL SCH (20:26)
[2018-04-23] MEDS: Baclofen 10 MG Tablet PO SCH ×4 (01:51→18:07)
[2018-04-23] MEDS: Lactobacillus Acidophilus/L. Spores Tablet PO SCH (06:07)
[2018-04-23] MEDS: Senna/Docusate Sodium 8.6/50 MG Tablet PO SCH ×2 (08:19→20:44)
[2018-04-23] MEDS: Calcium Carbonate 500 MG Tablet PO SCH ×2 (08:53→20:44)
[2018-04-23] MEDS: Gabapentin 100 MG Capsule PO SCH ×3 (08:53→18:07)
[2018-04-23] MEDS: levETIRAcetam 250 MG Tablet PO SCH ×3 (08:53→21:23)
[2018-04-23] MEDS: Sertraline 100 MG Tablet PO SCH (08:53)
--- NOTE | 2018-04-23 18:10 | P.PNPSY ---
Subjective Remarks: Reviewed electronic medical records and discussed case with staff. Follow-up was conducted in the day room with REID Gusman present. Patient eating his dinner. Staff reports that he has had some increased irritability today. When asked how he is feeling he states there is "lots of negative not too many positives". He is confused and when asked how he slept he begins telling stories about [place]. Mental Status Examination Appearance: Disheveled (Mildly) Consciousness: Alert Orientation: Person, Place Motor Activity: Other (in wheelchair) Speech: Unremarkable Language: Adequate Fund of Knowledge: Poor Attention and Concentration: Easily distracted Memory: Impaired Mood: Appropriate Affect: Blunt Thought Process & Associations: Other (concrete) Thought Content: Appropriate Hallucination Type: None Delusion Type: None Suicidal Ideation: No (denies today) Suicidal Plan: No Suicidal Intention: No Homicidal Ideation: No Homicidal Plan: No Homicidal Intention: No Insight: Poor Judgment: Poor Assessment and Plan - Assessment (1) PTSD (post-traumatic stress disorder) Code(s): F43.10 - Post-traumatic stress disorder, unspecified Status: Acute - Plan Plan: Patient will be reevaluated Wednesday by the attending psychiatrist. Continue with current treatment plan. Justification for Continued Inpatient Stay: Moving this patient to a less restrictive environment would likely result in decompensation.
[2018-04-23] MEDS: Divalproex 250 MG DR Tablet PO SCH (20:44)
[2018-04-23] MEDS: Lidocaine 5% Patch T-DERMAL SCH (20:44)
[2018-04-24] MEDS: Baclofen 10 MG Tablet PO SCH ×3 (05:41→17:08)
[2018-04-24] MEDS: Lactobacillus Acidophilus/L. Spores Tablet PO SCH (06:42)
[2018-04-24] MEDS: levETIRAcetam 250 MG Tablet PO SCH ×2 (09:37→21:44)
[2018-04-24] MEDS: Sertraline 100 MG Tablet PO SCH (09:37)
[2018-04-24] MEDS: Calcium Carbonate 500 MG Tablet PO SCH ×2 (09:37→21:40)
[2018-04-24] MEDS: Gabapentin 100 MG Capsule PO SCH ×3 (09:37→17:08)
[2018-04-24] MEDS: Acetaminophen 325 MG Tablet PO PRN (09:37)
[2018-04-24] MEDS: Senna/Docusate Sodium 8.6/50 MG Tablet PO SCH ×2 (09:38→21:40)
--- NOTE | 2018-04-24 10:37 | P.PNPSY ---
Subjective Chief Complaint: PTSD Remarks: Reviewed electronic medical records and discussed case with staff. Follow-up was conducted in the patient's with REID Gusman present. Patient is still in bed and did not eat breakfast. He is dishevel and staff report that he is not willing to take a shower. He is asking for oxycontin. His mood is sad, but not irritable. Encouraged to get up a shower and participate in activities outside. He did agree that he would try to do his ADLs with assistance. Review of Systems All other systems reviewed negative except as stated in HPI Mental Status Examination Appearance: Disheveled (Mildly) Consciousness: Alert Orientation: Person, Place Motor Activity: Other (in wheelchair) Speech: Unremarkable Language: Adequate Fund of Knowledge: Poor Attention and Concentration: Easily distracted Memory: Impaired Mood: Appropriate Affect: Blunt Thought Process & Associations: Other (concrete) Thought Content: Appropriate Hallucination Type: None Delusion Type: None Suicidal Ideation: No (denies today) Suicidal Plan: No Suicidal Intention: No Homicidal Ideation: No Homicidal Plan: No Homicidal Intention: No Insight: Fair Judgment: Poor Assessment and Plan - Assessment (1) Post-traumatic stress disorder Code(s): F43.10 - Post-traumatic stress disorder, unspecified Status: Acute - Plan Plan: Patient will be reevaluated Wednesday by the attending psychiatrist. Continue with current treatment plan. Justification for Continued Inpatient Stay: If moved to a less restrictive environment patient may decompensate.
[2018-04-24] MEDS: Lidocaine 5% Patch T-DERMAL SCH (21:40)
[2018-04-24] MEDS: Divalproex 250 MG DR Tablet PO SCH (21:40)
[2018-04-25] MEDS: Baclofen 10 MG Tablet PO SCH ×3 (01:09→18:05)
[2018-04-25] MEDS: Lactobacillus Acidophilus/L. Spores Tablet PO SCH (06:46)
[2018-04-25] MEDS: Sertraline 100 MG Tablet PO SCH (08:56)
[2018-04-25] MEDS: Gabapentin 100 MG Capsule PO SCH ×3 (08:56→18:05)
[2018-04-25] MEDS: Calcium Carbonate 500 MG Tablet PO SCH ×2 (08:56→20:46)
[2018-04-25] MEDS: Senna/Docusate Sodium 8.6/50 MG Tablet PO SCH ×2 (08:56→20:46)
[2018-04-25] MEDS: levETIRAcetam 250 MG Tablet PO SCH (09:00)
--- NOTE | 2018-04-25 12:00 | P.PNPSY ---
Subjective Chief Complaint: PTSD Remarks: Patient seen in his room. He continues to isolate somewhat sad and irritable today. Chart reviewed. Patient compliant medication. He continues to be frustrated with placement issues. Though he does deny suicidality with me. For now continue treatment Review of Systems All other systems reviewed negative except as stated in HPI Mental Status Examination Appearance: Disheveled (Mildly) Consciousness: Alert Orientation: Person, Place Motor Activity: Other (in wheelchair) Speech: Unremarkable Language: Adequate Fund of Knowledge: Poor Attention and Concentration: Easily distracted Memory: Impaired Mood: Appropriate Affect: Blunt Thought Process & Associations: Other (concrete) Thought Content: Appropriate Hallucination Type: None Delusion Type: None Suicidal Ideation: No (denies today) Suicidal Plan: No Suicidal Intention: No Homicidal Ideation: No Homicidal Plan: No Homicidal Intention: No Insight: Fair Judgment: Poor Assessment and Plan - Assessment (1) PTSD (post-traumatic stress disorder) Code(s): F43.10 - Post-traumatic stress disorder, unspecified Status: Acute - Plan Plan: Patient continues irritable somewhat depressed mainly related towards placement issues at this time. At times he does state he has some disturbing dreams. For now continue treatment placement remains quite problematic Justification for Continued Inpatient Stay: At this time patient would decompensate if not placed in an appropriate level of care Discharge Planning: To be determined
[2018-04-25] MEDS: Divalproex 250 MG DR Tablet PO SCH (20:45)
[2018-04-25] MEDS: Lidocaine 5% Patch T-DERMAL SCH (20:46)
[2018-04-26] MEDS: levETIRAcetam 250 MG Tablet PO SCH ×3 (00:41→22:26)
[2018-04-26] MEDS: Baclofen 10 MG Tablet PO SCH ×3 (01:43→18:21)
[2018-04-26] MEDS: Lactobacillus Acidophilus/L. Spores Tablet PO SCH (06:10)
[2018-04-26] MEDS: Senna/Docusate Sodium 8.6/50 MG Tablet PO SCH ×2 (09:45→22:25)
[2018-04-26] MEDS: Sertraline 100 MG Tablet PO SCH (09:45)
[2018-04-26] MEDS: Gabapentin 100 MG Capsule PO SCH ×3 (09:45→18:21)
[2018-04-26] MEDS: Calcium Carbonate 500 MG Tablet PO SCH ×2 (09:45→20:28)
--- NOTE | 2018-04-26 12:15 | P.PNPSY ---
Subjective Chief Complaint: PTSD Remarks: Patient seen today in the [facility] patient angry irritable now saying he is dying of cancer and he wants his OxyContin. He also is showing more as desired seeking behaviors. We will change Depakote from the ER to ER and increase the dose to 500 mg twice daily recheck Depakote level in a couple of days. He is at his maximal dosage for his Seroquel at this time Review of Systems All other systems reviewed negative except as stated in HPI Mental Status Examination Appearance: Disheveled (Mildly) Consciousness: Alert Orientation: Person, Place Motor Activity: Other (in wheelchair) Speech: Unremarkable Language: Adequate Fund of Knowledge: Poor Attention and Concentration: Easily distracted Memory: Impaired Mood: Angry, Irritable Affect: Other (Increased range and intensity) Thought Process & Associations: Disorganized, Other (concrete) Thought Content: Appropriate, Bizarre thinking Hallucination Type: None Delusion Type: None, Somatic ("Dying of cancer") Suicidal Ideation: No (denies today) Suicidal Plan: No Suicidal Intention: No Homicidal Ideation: No Homicidal Plan: No Homicidal Intention: No Insight: Fair Judgment: Poor Assessment and Plan - Assessment (1) PTSD (post-traumatic stress disorder) Code(s): F43.10 - Post-traumatic stress disorder, unspecified Status: Acute - Plan Plan: Patient showing increased psychosis delusions today she medication adjustment above Justification for Continued Inpatient Stay: At this time patient would decompensate a place to the lower level of care Discharge Planning: To be determined
[2018-04-26] MEDS: Divalproex 500 MG ER Tablet PO SCH ×2 (12:40→20:27)
[2018-04-26] MEDS: Lidocaine 5% Patch T-DERMAL SCH (20:27)
[2018-04-27] MEDS: Baclofen 10 MG Tablet PO SCH ×3 (04:48→17:03)
[2018-04-27] MEDS: Lactobacillus Acidophilus/L. Spores Tablet PO SCH (06:00)
[2018-04-27] MEDS: Divalproex 500 MG ER Tablet PO SCH ×2 (08:55→20:37)
[2018-04-27] MEDS: Gabapentin 100 MG Capsule PO SCH ×3 (08:55→17:03)
[2018-04-27] MEDS: Sertraline 100 MG Tablet PO SCH (08:55)
[2018-04-27] MEDS: Calcium Carbonate 500 MG Tablet PO SCH ×2 (08:55→20:38)
[2018-04-27] MEDS: Senna/Docusate Sodium 8.6/50 MG Tablet PO SCH ×2 (08:55→20:38)
[2018-04-27] MEDS: levETIRAcetam 250 MG Tablet PO SCH ×2 (09:00→21:04)
--- NOTE | 2018-04-27 12:11 | P.PNPSY ---
Subjective Chief Complaint: PTSD Remarks: Patient seen in day room with floor staff, chart reviewed, patient discussed with nurse. Patient complains of some constipation silly" help without". She also complains of some pain in the pelvic area. This may been related to his constipation. We will change Tylenol to Motrin 600 mg every 6 hours as needed otherwise placement continues to remain quite problematic Review of Systems All other systems reviewed negative except as stated in HPI Mental Status Examination Appearance: Disheveled (Mildly) Consciousness: Alert Orientation: Person, Place Motor Activity: Other (in wheelchair) Speech: Unremarkable Language: Adequate Fund of Knowledge: Poor Attention and Concentration: Easily distracted Memory: Impaired Mood: Angry, Irritable Affect: Other (Increased range and intensity) Thought Process & Associations: Disorganized, Other (concrete) Thought Content: Appropriate, Bizarre thinking Hallucination Type: None Delusion Type: None, Somatic ("Dying of cancer") Suicidal Ideation: No (denies today) Suicidal Plan: No Suicidal Intention: No Homicidal Ideation: No Homicidal Plan: No Homicidal Intention: No Insight: Fair Judgment: Poor Assessment and Plan - Assessment (1) PTSD (post-traumatic stress disorder) Code(s): F43.10 - Post-traumatic stress disorder, unspecified Status: Acute - Plan Plan: Patient remained somewhat angry and paranoid though soft with me today. She medication adjustments above Justification for Continued Inpatient Stay: At this time patient would decompensate a place to a lower level of care Discharge Planning: To be determined
[2018-04-27] MEDS: Ibuprofen 600 MG Tablet PO PRN ×2 (12:28→20:40)
[2018-04-27] MEDS: Lidocaine 5% Patch T-DERMAL SCH (20:37)
[2018-04-28] MEDS: Baclofen 10 MG Tablet PO SCH ×3 (02:18→17:32)
[2018-04-28] MEDS: Lactobacillus Acidophilus/L. Spores Tablet PO SCH (06:36)
[2018-04-28] MEDS: Sertraline 100 MG Tablet PO SCH (08:24)
[2018-04-28] MEDS: Senna/Docusate Sodium 8.6/50 MG Tablet PO SCH ×2 (08:25→20:48)
[2018-04-28] MEDS: Calcium Carbonate 500 MG Tablet PO SCH ×2 (08:25→20:49)
[2018-04-28] MEDS: Gabapentin 100 MG Capsule PO SCH ×3 (08:25→17:32)
[2018-04-28] MEDS: Ibuprofen 600 MG Tablet PO PRN ×2 (08:25→20:48)
[2018-04-28] MEDS: Divalproex 500 MG ER Tablet PO SCH ×2 (08:25→20:48)
--- NOTE | 2018-04-28 10:54 | P.PNPSY ---
Subjective Chief Complaint: PTSD Remarks: Patient seen in the day room with nurse Isabel, chart reviewed, patient compliant medications. There are states patient was doing somewhat better using his walker now instead of his wheelchair. Compliant medications. Today with me patient is quite calm with poor eye contact and minimal verbal responses. For now continue treatment no change we will check Depakote blood level over tomorrow morning Review of Systems All other systems reviewed negative except as stated in HPI Mental Status Examination Appearance: Disheveled (Mildly) Consciousness: Alert Orientation: Person, Place Motor Activity: Other (in wheelchair) Speech: Unremarkable Language: Adequate Fund of Knowledge: Poor Attention and Concentration: Easily distracted Memory: Impaired Mood: Angry, Irritable Affect: Other (Increased range and intensity) Thought Process & Associations: Disorganized, Other (concrete) Thought Content: Appropriate, Bizarre thinking Hallucination Type: None Delusion Type: None, Somatic ("Dying of cancer") Suicidal Ideation: No (denies today) Suicidal Plan: No Suicidal Intention: No Homicidal Ideation: No Homicidal Plan: No Homicidal Intention: No Insight: Fair Judgment: Poor Assessment and Plan - Assessment (1) PTSD (post-traumatic stress disorder) Code(s): F43.10 - Post-traumatic stress disorder, unspecified Status: Acute - Plan Plan: Patient continues somewhat irritable but today seems somewhat more depressed quiet Justification for Continued Inpatient Stay: At this time patient would decompensate a place to a lower level of care Discharge Planning: To be determined
[2018-04-28] MEDS: levETIRAcetam 250 MG Tablet PO SCH ×2 (11:37→21:04)
--- NOTE | 2018-04-28 12:26 | P.TTN ---
- Patient Problems Problems: 1. Discharge planning 2. Medication compliance 3. Knowledge deficit 4. Lack of coping skills - Progress Toward Goals Provider Present: Dr. Ade Pina Provider Input: Patient remains placement issue Psychiatric Counselors Present: Other Psychiatric Therapist Input: Jael -Patient remains a placment issue, [facility]. Patient has been cooperative, no behavioral issues Group Spec/RT/OT/DYER Present: Nguyen Leblanc, CASPER, Loinel Benson, OT Group Spec/RT/OT/DYER Input: Does not attend groups, inappropriate , disruptive in groups to others - Discharge Plan Continue to seek placement with SNF and work with [employer] [facility]. Medicaid application is in process of being filed. - Documentation Teaching Recipient: Patient
[2018-04-28] MEDS: Lidocaine 5% Patch T-DERMAL SCH (20:47)
[2018-04-29] MEDS: Baclofen 10 MG Tablet PO SCH ×3 (03:56→17:47)
[2018-04-29] MEDS: Lactobacillus Acidophilus/L. Spores Tablet PO SCH (06:04)
[2018-04-29] MEDS ORDERED: Haloperidol Inj 5 MG/ML Ampul ONE (07:52)
[2018-04-29] MEDS ORDERED: Haloperidol Inj 5 MG/ML Ampul IM STA (08:45)
--- NOTE | 2018-04-29 08:57 | P.PNPSY ---
Subjective Chief Complaint: PTSD Remarks: Patient is seen in day room with nurse Alice. Chart reviewed. It appears patient was awakened from a fairly deep sleep which led to him experiencing a very severe flashback to his days. 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 Causing him marked increased anxiety anger paranoia to the point where he said he better start saving razor blades in case they came for him. A code uriostegui was called though the patient did not calm down. However he is arousable when I saw him was still intense though he did recognize me. He allowed us to give him an ETO of Haldol 10 mg Ativan 2 mg IM and Atarax 50 mg p.o. I did discuss with the staff the need to allow this gentleman to sleep in the week more naturally. It is not necessary for us to cause this man more stress that could lead to similar behaviors in the future. Patient is now calm cooperative and relaxing he did eat breakfast finally. For now continue treatment. Placement remains quite problematic Review of Systems All other systems reviewed negative except as stated in HPI Mental Status Examination Appearance: Disheveled (Mildly) Consciousness: Alert Orientation: Person, Place Motor Activity: Other (in wheelchair) Speech: Pressured, Rapid (Today today) Language: Adequate Fund of Knowledge: Poor Attention and Concentration: Easily distracted Memory: Impaired (Significant flashbacks occurring today) Mood: Angry, Irritable Affect: Other (Increased range and intensity) Thought Process & Associations: Disorganized, Other (Severe flashbacks today) Thought Content: Appropriate, Bizarre thinking Hallucination Type: Visual Delusion Type: None, Somatic ("Dying of cancer") Suicidal Ideation: No (denies today) Suicidal Plan: No Suicidal Intention: No Homicidal Ideation: No Homicidal Plan: No Homicidal Intention: No Insight: Fair Judgment: Poor Assessment and Plan - Assessment (1) PTSD (post-traumatic stress disorder) Code(s): F43.10 - Post-traumatic stress disorder, unspecified Status: Acute - Plan Plan: Patient was awakened from a fairly deep sleep this morning causing an increase in his PTSD symptoms with flashbacks and anger fear and arousal. While he calms somewhat with interventions he still needed and ETO as mentioned above. We did cosmetic counselor staff to be sensitive to this man's needs and responses. For now continue treatment. Placement remains quite problematic Justification for Continued Inpatient Stay: At this time patient would decompensate if placed in a lower level of care Discharge Planning: To be determined
[2018-04-29] MEDS: Gabapentin 100 MG Capsule PO SCH ×3 (09:00→17:48)
[2018-04-29] MEDS: Divalproex 500 MG ER Tablet PO SCH ×2 (09:00→20:12)
[2018-04-29] MEDS: Calcium Carbonate 500 MG Tablet PO SCH ×2 (09:14→20:13)
[2018-04-29] MEDS: Senna/Docusate Sodium 8.6/50 MG Tablet PO SCH ×2 (09:14→20:13)
[2018-04-29] MEDS: Sertraline 100 MG Tablet PO SCH (09:18)
[2018-04-29] MEDS: levETIRAcetam 250 MG Tablet PO SCH ×2 (10:00→21:13)
[2018-04-29] MEDS: Lidocaine 5% Patch T-DERMAL SCH (20:11)
[2018-04-30] MEDS: Baclofen 10 MG Tablet PO SCH ×3 (03:15→21:44)
[2018-04-30] MEDS: Lactobacillus Acidophilus/L. Spores Tablet PO SCH (06:23)
[2018-04-30] MEDS: levETIRAcetam 250 MG Tablet PO SCH ×2 (10:00→21:45)
[2018-04-30] MEDS: Calcium Carbonate 500 MG Tablet PO SCH ×2 (10:30→20:37)
[2018-04-30] MEDS: Senna/Docusate Sodium 8.6/50 MG Tablet PO SCH ×2 (10:30→20:37)
[2018-04-30] MEDS: Gabapentin 100 MG Capsule PO SCH ×3 (10:30→18:46)
[2018-04-30] MEDS: Divalproex 500 MG ER Tablet PO SCH ×2 (10:30→20:36)
[2018-04-30] MEDS: Sertraline 100 MG Tablet PO SCH (10:30)
--- NOTE | 2018-04-30 18:02 | P.PNPSY ---
Subjective Chief Complaint: PTSD Remarks: Reviewed electronic medical records and discussed case with staff. Follow-up was conducted in his room. Patient was found sleeping in bed he awoke to verbal stimuli. Staff reported that he had a good day. Patient states that he feels "fine". He reports that he has been sleeping well and has a good appetite. Mental Status Examination Appearance: Disheveled (Mildly) Consciousness: Alert Orientation: Person, Place Motor Activity: Other (in wheelchair) Speech: Pressured, Rapid (Today today) Language: Adequate Fund of Knowledge: Poor Attention and Concentration: Easily distracted Memory: Impaired (Significant flashbacks occurring today) Mood: Angry, Irritable Affect: Other (Increased range and intensity) Thought Process & Associations: Disorganized, Other (Severe flashbacks today) Thought Content: Appropriate, Bizarre thinking Hallucination Type: Visual Delusion Type: None, Somatic ("Dying of cancer") Suicidal Ideation: No (denies today) Suicidal Plan: No Suicidal Intention: No Homicidal Ideation: No Homicidal Plan: No Homicidal Intention: No Insight: Fair Judgment: Poor Assessment and Plan - Assessment (1) PTSD (post-traumatic stress disorder) Code(s): F43.10 - Post-traumatic stress disorder, unspecified Status: Acute - Plan Plan: Patient will be reevaluated Wednesday by the attending psychiatrist. Continue with current treatment plan. Justification for Continued Inpatient Stay: Moving this patient to a less restrictive environment would likely result in decompensation.
[2018-04-30] MEDS: Lidocaine 5% Patch T-DERMAL SCH (20:40)
[2018-05-01] MEDS: Baclofen 10 MG Tablet PO SCH ×4 (04:16→17:42)
[2018-05-01] MEDS: Lactobacillus Acidophilus/L. Spores Tablet PO SCH (06:18)
--- NOTE | 2018-05-01 08:51 | P.PNPSY ---
Subjective Chief Complaint: PTSD Remarks: Reviewed electronic medical records and discussed case with staff. REID Hall and I met with patient in the dayroom, he is waiting for breakfast. He ambulated to the dayroom with a walker. He is showered and his hygiene is significantly improved since last weekend. He is engaging in conversation and was trying to make the nurisng staff laugh. He states that he has been sleeping well, denies any nightmares or flashbacks. Appetite is good. Review of Systems All other systems reviewed negative except as stated in HPI Comments: Ambulates with a walker Mental Status Examination Appearance: Disheveled (improved) Consciousness: Alert Orientation: Person, Place Motor Activity: Other (in wheelchair) Speech: Unremarkable Language: Adequate Fund of Knowledge: Inadequate Attention and Concentration: Easily distracted Memory: Impaired (poor recall of information ) Mood: Appropriate Affect: Euthymic Thought Process & Associations: Disorganized Thought Content: Appropriate Hallucination Type: None Delusion Type: None Suicidal Ideation: No (denies today) Suicidal Plan: No Suicidal Intention: No Homicidal Ideation: No Homicidal Plan: No Homicidal Intention: No Insight: Fair Judgment: Poor Assessment and Plan - Assessment (1) Post-traumatic stress disorder Code(s): F43.10 - Post-traumatic stress disorder, unspecified Status: Acute - Plan Plan: Patient will be reevaluated Wednesday by the attending psychiatrist. Continue with current treatment plan. Justification for Continued Inpatient Stay: Moving patient to a less restrictive environment may result in his decompensation.
[2018-05-01] MEDS: Calcium Carbonate 500 MG Tablet PO SCH ×2 (10:07→20:37)
[2018-05-01] MEDS: Senna/Docusate Sodium 8.6/50 MG Tablet PO SCH ×2 (10:07→20:37)
[2018-05-01] MEDS: levETIRAcetam 250 MG Tablet PO SCH ×2 (10:07→22:24)
[2018-05-01] MEDS: Divalproex 500 MG ER Tablet PO SCH ×2 (10:07→20:36)
[2018-05-01] MEDS: Sertraline 100 MG Tablet PO SCH (10:08)
[2018-05-01] MEDS: Gabapentin 100 MG Capsule PO SCH ×4 (10:08→17:42)
[2018-05-01] MEDS: Lidocaine 5% Patch T-DERMAL SCH (20:36)
[2018-05-01] MEDS: Ibuprofen 600 MG Tablet PO PRN (23:20)
[2018-05-02] MEDS: Baclofen 10 MG Tablet PO SCH ×3 (04:38→18:38)
[2018-05-02] MEDS: Lactobacillus Acidophilus/L. Spores Tablet PO SCH (06:27)
[2018-05-02] MEDS: levETIRAcetam 250 MG Tablet PO SCH ×2 (10:19→22:00)
[2018-05-02] MEDS: Divalproex 500 MG ER Tablet PO SCH ×2 (10:19→20:49)
[2018-05-02] MEDS: Gabapentin 100 MG Capsule PO SCH ×3 (10:19→18:38)
[2018-05-02] MEDS: Senna/Docusate Sodium 8.6/50 MG Tablet PO SCH ×2 (10:19→20:49)
[2018-05-02] MEDS: Sertraline 100 MG Tablet PO SCH (10:19)
[2018-05-02] MEDS: Calcium Carbonate 500 MG Tablet PO SCH ×2 (10:19→20:48)
--- NOTE | 2018-05-02 13:13 | P.PNPSY ---
Subjective Chief Complaint: PTSD Remarks: Patient seen in his room with nurse. Chart reviewed. Patient compliant medication. Patient showing marked decrease in his range and intensity of his affect. He appears somewhat sadder. There is a vague hopelessness with him at this time also. He acknowledges continued dreams have not changed very much there is still nightmarish. Patient discussed with treatment team today also. Staff has made very significant effort to find various placements for this . They have all fallen through. Patient still is quite symptomatic and at times labile. At this time we do feel that he may benefit from an extended care mental health facility. Thus I will initiate [facility] referral packet Review of Systems All other systems reviewed negative except as stated in HPI Mental Status Examination Appearance: Disheveled (improved) Consciousness: Alert, Lethargic (Mildly) Orientation: Person, Place Motor Activity: Other (in wheelchair) Speech: Unremarkable Language: Adequate Fund of Knowledge: Inadequate Attention and Concentration: Easily distracted Memory: Impaired (poor recall of information ) Mood: Appropriate, Other (Dysphoric) Affect: Other (Decreased range and intensity) Thought Process & Associations: Disorganized Thought Content: Appropriate Hallucination Type: None Delusion Type: None Suicidal Ideation: No (denies today) Suicidal Plan: No Suicidal Intention: No Homicidal Ideation: No Homicidal Plan: No Homicidal Intention: No Insight: Fair Judgment: Poor Assessment and Plan - Assessment (1) PTSD (post-traumatic stress disorder) Code(s): F43.10 - Post-traumatic stress disorder, unspecified Status: Acute - Plan Plan: Patient's PTSD continues intense and symptomatic. With very little success in finding appropriate placement in the community we will start [facility] referral packet Justification for Continued Inpatient Stay: At this time patient would decompensate a place to the lower level of care Discharge Planning: Start state referral packet
[2018-05-02] MEDS: Lidocaine 5% Patch T-DERMAL SCH (20:48)
[2018-05-03] MEDS: Baclofen 10 MG Tablet PO SCH ×3 (04:21→19:32)
[2018-05-03] MEDS: Lactobacillus Acidophilus/L. Spores Tablet PO SCH (06:42)
--- NOTE | 2018-05-03 09:32 | P.TTN ---
- Patient Problems Problems: 1. Discharge planning 2. Medication compliance 3. Knowledge deficit 4. Lack of coping skills - Progress Toward Goals Provider Present: Dr. Ade Pina Provider Input: 05/02/18- Patient recieved ETO Wednesday morning, had been expereincing flashback with relation to [place]. [facility]. Patient remains placement issue Psychiatric Counselors Present: Other Psychiatric Therapist Input: Jael 05/02/18- Patient contieus to remain palcement issue. Possible state referral. [place] has exhibited increase in irritability in past few days. Continues to have poor insight. Jael - Patient remains a placment issue, [facility]. Patient has been cooperative, no behavioral issues Group Spec/RT/OT/DYER Present: CASPER Pedraza Group Spec/RT/OT/DYER Input: 05/02/18- Does not attend groups. Does not attend groups, inappropriate in groups - Discharge Plan Continue to seek placement with SNF and work with [employer]. Medicaid application is in process of being filed. - Documentation Teaching Recipient: Patient
[2018-05-03] MEDS: Sertraline 100 MG Tablet PO SCH (10:36)
[2018-05-03] MEDS: Gabapentin 100 MG Capsule PO SCH ×3 (10:36→19:32)
[2018-05-03] MEDS: Calcium Carbonate 500 MG Tablet PO SCH ×2 (10:36→21:07)
[2018-05-03] MEDS: Senna/Docusate Sodium 8.6/50 MG Tablet PO SCH ×2 (10:36→21:07)
[2018-05-03] MEDS: Divalproex 500 MG ER Tablet PO SCH ×2 (10:36→21:07)
[2018-05-03] MEDS: levETIRAcetam 250 MG Tablet PO SCH ×2 (10:37→21:07)
--- NOTE | 2018-05-03 17:39 | P.PNPSY ---
Subjective Chief Complaint: PTSD Remarks: Patient seen in day room with nurse Elise, patient continues somewhat angry and irritable E appears somewhat resigned in the believes that it will take an extended period of time from to find an appropriate placement is causing him some anger and lability. But he is redirectable at this time for now continue treatment Review of Systems All other systems reviewed negative except as stated in HPI Mental Status Examination Appearance: Disheveled (improved) Consciousness: Alert, Lethargic (Mildly) Orientation: Person, Place Motor Activity: Other (in wheelchair) Speech: Unremarkable Language: Adequate Fund of Knowledge: Inadequate Attention and Concentration: Easily distracted Memory: Impaired (poor recall of information ) Mood: Appropriate, Other (Dysphoric) Affect: Other (Decreased range and intensity) Thought Process & Associations: Disorganized Thought Content: Appropriate Hallucination Type: None Delusion Type: None Suicidal Ideation: No (denies today) Suicidal Plan: No Suicidal Intention: No Homicidal Ideation: No Homicidal Plan: No Homicidal Intention: No Insight: Fair Judgment: Poor Assessment and Plan - Assessment (1) PTSD (post-traumatic stress disorder) Code(s): F43.10 - Post-traumatic stress disorder, unspecified Status: Acute - Plan Plan: Patient somewhat angry and irritable today some mild paranoia showing itself. Though his complaint medication Justification for Continued Inpatient Stay: At this time patient would decompensate if not placed in an appropriate level of care Discharge Planning: Placement continues quite problematic
[2018-05-03] MEDS: Lidocaine 5% Patch T-DERMAL SCH (21:06)
[2018-05-03] MEDS: Ibuprofen 600 MG Tablet PO PRN (21:07)
[2018-05-04] MEDS: Baclofen 10 MG Tablet PO SCH ×3 (02:48→18:10)
[2018-05-04] MEDS: Lactobacillus Acidophilus/L. Spores Tablet PO SCH (06:21)
[2018-05-04] MEDS: levETIRAcetam 250 MG Tablet PO SCH ×2 (10:57→21:08)
[2018-05-04] MEDS: Calcium Carbonate 500 MG Tablet PO SCH ×2 (10:58→21:08)
[2018-05-04] MEDS: Gabapentin 100 MG Capsule PO SCH ×3 (10:58→18:10)
[2018-05-04] MEDS: Senna/Docusate Sodium 8.6/50 MG Tablet PO SCH ×2 (10:58→21:11)
[2018-05-04] MEDS: Sertraline 100 MG Tablet PO SCH (11:00)
[2018-05-04] MEDS: Divalproex 500 MG ER Tablet PO SCH ×2 (11:02→21:07)
--- NOTE | 2018-05-04 16:39 | P.PNPSY ---
Subjective Chief Complaint: PTSD Remarks: Reviewed electronic medical records and discussed case with staff. Follow-up was conducted in the milieu with REID Castillo present. Patient initially reports that he is doing "very good". States that he slept well and his appetite has been good. He then however goes off on a tangent and which he attempts to tell this provider that staff came in at 4:15 in the morning and turned on all of the lights. However, he then says that they refused to turn on the lights. He becomes confused and exhibits increasing agitation stating that "their personal vendetta is 99.9% of the time that you are working here". Mental Status Examination Appearance: Disheveled (improved) Consciousness: Alert, Lethargic (Mildly) Orientation: Person, Place Motor Activity: Other (in wheelchair) Speech: Unremarkable Language: Adequate Fund of Knowledge: Inadequate Attention and Concentration: Easily distracted Memory: Impaired (poor recall of information ) Mood: Appropriate, Other (Dysphoric) Affect: Other (Decreased range and intensity) Thought Process & Associations: Disorganized Thought Content: Appropriate Hallucination Type: None Delusion Type: None Suicidal Ideation: No (denies today) Suicidal Plan: No Suicidal Intention: No Homicidal Ideation: No Homicidal Plan: No Homicidal Intention: No Insight: Fair Judgment: Poor Assessment and Plan - Assessment (1) PTSD (post-traumatic stress disorder) Code(s): F43.10 - Post-traumatic stress disorder, unspecified Status: Acute - Plan Plan: Continue with current treatment plan. Staff working on a safe discharge plan for this patient. Justification for Continued Inpatient Stay: Moving this patient to a less restrictive environment would likely result in decompensation.
[2018-05-04] MEDS: Lidocaine 5% Patch T-DERMAL SCH (21:08)
[2018-05-05] MEDS: Baclofen 10 MG Tablet PO SCH ×3 (05:01→17:00)
[2018-05-05] MEDS: Lactobacillus Acidophilus/L. Spores Tablet PO SCH (06:41)
[2018-05-05] MEDS: Gabapentin 100 MG Capsule PO SCH ×3 (08:44→17:00)
[2018-05-05] MEDS: Calcium Carbonate 500 MG Tablet PO SCH ×2 (08:44→20:39)
[2018-05-05] MEDS: Senna/Docusate Sodium 8.6/50 MG Tablet PO SCH ×2 (08:44→22:42)
[2018-05-05] MEDS: Divalproex 500 MG ER Tablet PO SCH ×2 (08:44→20:39)
[2018-05-05] MEDS: Sertraline 100 MG Tablet PO SCH (08:45)
[2018-05-05] MEDS: levETIRAcetam 250 MG Tablet PO SCH (09:40)
[2018-05-05] MEDS: Ibuprofen 600 MG Tablet PO PRN (13:52)
--- NOTE | 2018-05-05 15:32 | P.PNPSY ---
Subjective Chief Complaint: PTSD Remarks: Reviewed electronic medical records and discussed case with staff. Follow-up was conducted in the hallway. Patient was observed being his walker against the door however, he was bit confused and gotten turnaround. He is subdued today reports that his back hurts. The nurses getting ibuprofen for him. Per his nurse, he has been calm and doing well today. Has been noted that mornings are a little rough for him. This morning he had to as needed dose of Atarax at 5 AM as he threatened attack with physical harm. He has been remembering to use his walker and staff reported he been polite post Atarax administration. Mental Status Examination Appearance: Disheveled (improved) Consciousness: Alert, Lethargic (Mildly) Orientation: Person, Place Motor Activity: Other (in wheelchair) Speech: Unremarkable Language: Adequate Fund of Knowledge: Inadequate Attention and Concentration: Easily distracted Memory: Impaired (poor recall of information ) Mood: Appropriate, Other (Dysphoric) Affect: Other (Decreased range and intensity) Thought Process & Associations: Disorganized Thought Content: Appropriate Hallucination Type: None Delusion Type: None Suicidal Ideation: No (denies today) Suicidal Plan: No Suicidal Intention: No Homicidal Ideation: No Homicidal Plan: No Homicidal Intention: No Insight: Fair Judgment: Poor Assessment and Plan - Assessment (1) PTSD (post-traumatic stress disorder) Code(s): F43.10 - Post-traumatic stress disorder, unspecified Status: Acute - Plan Plan: Continue with current treatment plan. Discharge planning in progress. Justification for Continued Inpatient Stay: Moving this patient to a less restrictive environment would likely result in decompensation.
[2018-05-05] MEDS: Lidocaine 5% Patch T-DERMAL SCH (20:40)
[2018-05-06] MEDS: Baclofen 10 MG Tablet PO SCH ×3 (05:53→17:14)
[2018-05-06] MEDS: levETIRAcetam 250 MG Tablet PO SCH ×3 (05:54→21:29)
[2018-05-06] MEDS: Senna/Docusate Sodium 8.6/50 MG Tablet PO SCH ×2 (08:23→20:18)
[2018-05-06] MEDS: Sertraline 100 MG Tablet PO SCH (08:23)
[2018-05-06] MEDS: Lactobacillus Acidophilus/L. Spores Tablet PO SCH (08:24)
[2018-05-06] MEDS: Calcium Carbonate 500 MG Tablet PO SCH ×2 (08:24→20:18)
[2018-05-06] MEDS: Divalproex 500 MG ER Tablet PO SCH ×2 (08:24→20:18)
[2018-05-06] MEDS: Gabapentin 100 MG Capsule PO SCH ×3 (08:24→17:15)
--- NOTE | 2018-05-06 15:22 | P.PNPSY ---
Subjective Chief Complaint: PTSD Remarks: The patient was seen today for psychiatric reevaluation. Patient was widely discussed with second year family intervention specialist and also with nursing charge. On my psychiatric evaluation I find a patient that is a little bit agitated, perseverant, is stating that he needs a new walker because his walker is broken, even though his walker is quite okay, very loud, verbally hostile, but he was redirectable. He has been compliant his medications, no significant side effects reported, he has episodic irritability and agitation, but he is usually able to be de-escalated verbally. The patient is partially oriented. Mental Status Examination Appearance: Disheveled (improved) Consciousness: Alert, Lethargic (Mildly) Orientation: Person, Place Motor Activity: Other (in wheelchair) Speech: Unremarkable Language: Adequate Fund of Knowledge: Inadequate Attention and Concentration: Easily distracted Memory: Impaired (poor recall of information ) Mood: Appropriate, Other (Dysphoric) Affect: Other (Decreased range and intensity) Thought Process & Associations: Disorganized Thought Content: Appropriate Hallucination Type: None Delusion Type: None Suicidal Ideation: No (denies today) Suicidal Plan: No Suicidal Intention: No Homicidal Ideation: No Homicidal Plan: No Homicidal Intention: No Insight: Poor Judgment: Poor Assessment and Plan - Assessment (1) PTSD (post-traumatic stress disorder) Code(s): F43.10 - Post-traumatic stress disorder, unspecified Status: Acute - Plan Plan: Patient continues to have episodes of agitation, irritability, perseveration. Continue current psychotropic regimen. Justification for Continued Inpatient Stay: The patient has elevated risk to decompensate at a lower level of care.
[2018-05-06] MEDS: Lidocaine 5% Patch T-DERMAL SCH (20:17)
[2018-05-07] MEDS: Baclofen 10 MG Tablet PO SCH ×3 (04:55→17:22)
[2018-05-07] MEDS: Lactobacillus Acidophilus/L. Spores Tablet PO SCH (06:02)
[2018-05-07] MEDS: levETIRAcetam 250 MG Tablet PO SCH ×2 (09:20→21:20)
[2018-05-07] MEDS: Calcium Carbonate 500 MG Tablet PO SCH ×2 (09:20→20:47)
[2018-05-07] MEDS: Sertraline 100 MG Tablet PO SCH (09:20)
[2018-05-07] MEDS: Gabapentin 100 MG Capsule PO SCH ×3 (09:20→17:22)
[2018-05-07] MEDS: Senna/Docusate Sodium 8.6/50 MG Tablet PO SCH ×2 (09:20→20:47)
[2018-05-07] MEDS: Divalproex 500 MG ER Tablet PO SCH ×2 (09:20→20:47)
--- NOTE | 2018-05-07 11:45 | P.PNPSY ---
Subjective Chief Complaint: PTSD Remarks: Pt seen and discussed with staff. Chart reviewed. He was confused and tried to walk out of unit in director mba requesting lunch, but was able to be redirected by staff. He has been irritable but compliant with medications. No SI /HI Mental Status Examination Appearance: Disheveled (improved) Consciousness: Alert, Lethargic (Mildly) Orientation: Person, Place Motor Activity: Other (in wheelchair) Speech: Unremarkable Language: Adequate Fund of Knowledge: Inadequate Attention and Concentration: Easily distracted Memory: Impaired (poor recall of information ) Mood: Irritable Affect: Flat, Other (Decreased range and intensity) Thought Process & Associations: Tangential Thought Content: Appropriate Hallucination Type: None Delusion Type: None Suicidal Ideation: No (denies today) Suicidal Plan: No Suicidal Intention: No Homicidal Ideation: No Homicidal Plan: No Homicidal Intention: No Insight: Poor Judgment: Poor Assessment and Plan - Assessment (1) PTSD (post-traumatic stress disorder) Code(s): F43.10 - Post-traumatic stress disorder, unspecified Status: Acute - Plan Plan: Continue current tx plan Justification for Continued Inpatient Stay: risk of decompensation
[2018-05-07] MEDS: Lidocaine 5% Patch T-DERMAL SCH (21:19)
[2018-05-08] MEDS: Baclofen 10 MG Tablet PO SCH ×3 (02:31→17:46)
[2018-05-08] MEDS: Lactobacillus Acidophilus/L. Spores Tablet PO SCH (06:00)
[2018-05-08] MEDS: Divalproex 500 MG ER Tablet PO SCH ×2 (08:00→11:36)
--- NOTE | 2018-05-08 09:20 | P.PNPSY ---
Subjective Chief Complaint: PTSD Remarks: Medical record reviewed and discussed with nursing staff. REID Olivares and I met with patient in the Day Room. Patient is in a pleasant mood today. He is eating well. Is complaining of nightmares which keep him awake. He is medication compliant. No behavioral concerns. Review of Systems All other systems reviewed negative except as stated in HPI Mental Status Examination Appearance: Disheveled (improved) Consciousness: Alert, Lethargic (Mildly) Orientation: Person, Place Motor Activity: Other (in wheelchair) Speech: Unremarkable Language: Adequate Fund of Knowledge: Inadequate Attention and Concentration: Easily distracted Memory: Impaired (poor recall of information ) Mood: Appropriate Affect: Appropriate Thought Process & Associations: Tangential Thought Content: Appropriate Hallucination Type: None Delusion Type: None Suicidal Ideation: No (denies today) Suicidal Plan: No Suicidal Intention: No Homicidal Ideation: No Homicidal Plan: No Homicidal Intention: No Insight: Poor Judgment: Poor Assessment and Plan - Assessment (1) Post-traumatic stress disorder Code(s): F43.10 - Post-traumatic stress disorder, unspecified Status: Acute - Plan Plan: Continue current tx plan Justification for Continued Inpatient Stay: Moving patient to a less restrictive environment may result in his decompensation.
[2018-05-08] MEDS: Gabapentin 100 MG Capsule PO SCH ×3 (11:36→18:58)
[2018-05-08] MEDS: Calcium Carbonate 500 MG Tablet PO SCH ×2 (11:36→20:05)
[2018-05-08] MEDS: Sertraline 100 MG Tablet PO SCH (11:37)
[2018-05-08] MEDS: Senna/Docusate Sodium 8.6/50 MG Tablet PO SCH ×2 (11:37→20:06)
[2018-05-08] MEDS: levETIRAcetam 250 MG Tablet PO SCH ×2 (11:37→21:35)
[2018-05-08] MEDS: Lidocaine 5% Patch T-DERMAL SCH (20:04)
[2018-05-09] MEDS: Baclofen 10 MG Tablet PO SCH ×3 (03:07→17:14)
[2018-05-09] MEDS: Lactobacillus Acidophilus/L. Spores Tablet PO SCH (09:36)
[2018-05-09] MEDS: Senna/Docusate Sodium 8.6/50 MG Tablet PO SCH ×2 (09:37→20:53)
[2018-05-09] MEDS: Sertraline 100 MG Tablet PO SCH (09:37)
[2018-05-09] MEDS: Divalproex 500 MG ER Tablet PO SCH ×2 (09:37→20:48)
[2018-05-09] MEDS: Calcium Carbonate 500 MG Tablet PO SCH ×2 (09:37→20:47)
[2018-05-09] MEDS: Gabapentin 100 MG Capsule PO SCH ×3 (09:37→17:30)
[2018-05-09] MEDS: levETIRAcetam 250 MG Tablet PO SCH (09:37)
--- NOTE | 2018-05-09 12:17 | P.PNPSY ---
Subjective Chief Complaint: PTSD Remarks: Reviewed electronic medical records and discussed case with staff. Follow-up was conducted in the hallway and day room. Patient observed ambulating without difficulty with his walker. He states that he is doing well. Continues to perseverate on nightmares. Mental Status Examination Appearance: Disheveled (improved) Consciousness: Alert, Lethargic (Mildly) Orientation: Person, Place Motor Activity: Other (in wheelchair) Speech: Unremarkable Language: Adequate Fund of Knowledge: Inadequate Attention and Concentration: Easily distracted Memory: Impaired (poor recall of information ) Mood: Appropriate Affect: Appropriate Thought Process & Associations: Tangential Thought Content: Appropriate Hallucination Type: None Delusion Type: None Suicidal Ideation: No (denies today) Suicidal Plan: No Suicidal Intention: No Homicidal Ideation: No Homicidal Plan: No Homicidal Intention: No Insight: Poor Judgment: Poor Assessment and Plan - Assessment (1) PTSD (post-traumatic stress disorder) Code(s): F43.10 - Post-traumatic stress disorder, unspecified Status: Acute - Plan Plan: Patient will be reevaluated Wednesday by the attending psychiatrist. Continue with current treatment plan. Justification for Continued Inpatient Stay: Moving this patient to a less restrictive environment would likely result in decompensation. Discharge Planning: In progress
[2018-05-09] MEDS: Lidocaine 5% Patch T-DERMAL SCH (20:53)
[2018-05-10] MEDS: levETIRAcetam 250 MG Tablet PO SCH ×2 (04:09→10:15)
[2018-05-10] MEDS: Baclofen 10 MG Tablet PO SCH ×3 (04:09→17:49)
[2018-05-10] MEDS: Lactobacillus Acidophilus/L. Spores Tablet PO SCH (06:21)
[2018-05-10] MEDS: Sertraline 100 MG Tablet PO SCH (09:11)
[2018-05-10] MEDS: Divalproex 500 MG ER Tablet PO SCH ×3 (09:17→20:27)
[2018-05-10] MEDS: Senna/Docusate Sodium 8.6/50 MG Tablet PO SCH ×3 (09:18→20:28)
[2018-05-10] MEDS: Calcium Carbonate 500 MG Tablet PO SCH ×3 (09:18→20:27)
[2018-05-10] MEDS: Gabapentin 100 MG Capsule PO SCH ×4 (09:18→17:49)
[2018-05-10] MEDS: Lidocaine 5% Patch T-DERMAL SCH (20:26)
--- NOTE | 2018-05-11 01:01 | P.PNPSY ---
Subjective Chief Complaint: PTSD Remarks: LATE ENTRY FOR 05/10/18 Patient seen for follow up; chart reviewed. Discussion with nursing staff reported patient isolative at times, no behavioral issues. Patient found lying on hospital bed, states feeling "alright", denies any physical complaints, eating and drinking well, demands to have food at certain hour in the evening. Review of Systems All other systems reviewed negative except as stated in HPI Mental Status Examination Appearance: Disheveled (improved) Consciousness: Alert, Lethargic (Mildly) Orientation: Person, Place Motor Activity: Other (in wheelchair) Speech: Unremarkable Language: Adequate Fund of Knowledge: Inadequate Attention and Concentration: Easily distracted Memory: Impaired (poor recall of information ) Mood: Appropriate Affect: Appropriate Thought Process & Associations: Tangential Thought Content: Appropriate Hallucination Type: None Delusion Type: None Suicidal Ideation: No (denies today) Suicidal Plan: No Suicidal Intention: No Homicidal Ideation: No Homicidal Plan: No Homicidal Intention: No Insight: Poor Judgment: Poor Assessment and Plan - Assessment (1) PTSD (post-traumatic stress disorder) Code(s): F43.10 - Post-traumatic stress disorder, unspecified Status: Acute - Plan Plan: Patient continues with some irritability at times but redirectible. Continue current treatment, continue to monitor mood and behavior. Discharge planning in progress. Justification for Continued Inpatient Stay: At risk for further decompensation at lower level of care.
[2018-05-11] MEDS: levETIRAcetam 250 MG Tablet PO SCH ×3 (03:26→22:00)
[2018-05-11] MEDS: Baclofen 10 MG Tablet PO SCH ×3 (03:26→18:07)
[2018-05-11] MEDS: Lactobacillus Acidophilus/L. Spores Tablet PO SCH (06:15)
[2018-05-11] MEDS: Gabapentin 100 MG Capsule PO SCH ×3 (08:10→18:07)
[2018-05-11] MEDS: Divalproex 500 MG ER Tablet PO SCH ×2 (08:10→20:35)
[2018-05-11] MEDS: Calcium Carbonate 500 MG Tablet PO SCH ×2 (08:11→20:36)
[2018-05-11] MEDS: Senna/Docusate Sodium 8.6/50 MG Tablet PO SCH ×2 (08:11→20:36)
[2018-05-11] MEDS: Sertraline 100 MG Tablet PO SCH (08:12)
--- NOTE | 2018-05-11 12:35 | P.PNPSY ---
Subjective Chief Complaint: PTSD Remarks: Patient seen in day room with nurse Sainz, chart reviewed, patient compliant medication. Patient overall calm and cooperative today focused on the fact that in the prior placement he was getting to peanut butter and jelly sandwiches and a carton of milk between 8 and 9 PM and he wants that done now here. He otherwise states he is leaving placement in the treatment team his hands. For now continue treatment Review of Systems All other systems reviewed negative except as stated in HPI Mental Status Examination Appearance: Disheveled (improved) Consciousness: Alert, Lethargic (Mildly) Orientation: Person, Place Motor Activity: Other (in wheelchair) Speech: Unremarkable Language: Adequate Fund of Knowledge: Inadequate Attention and Concentration: Easily distracted Memory: Impaired (poor recall of information ) Mood: Appropriate Affect: Appropriate Thought Process & Associations: Tangential Thought Content: Appropriate Hallucination Type: None Delusion Type: None Suicidal Ideation: No (denies today) Suicidal Plan: No Suicidal Intention: No Homicidal Ideation: No Homicidal Plan: No Homicidal Intention: No Insight: Poor Judgment: Poor Assessment and Plan - Assessment (1) PTSD (post-traumatic stress disorder) Code(s): F43.10 - Post-traumatic stress disorder, unspecified Status: Acute - Plan Plan: Patient remained somewhat psychotic and delusional but today overall no behavior problems, compliant medication Justification for Continued Inpatient Stay: At this time patient would decompensate a place to the lower level of care Discharge Planning: To be determined
[2018-05-11] MEDS: Lidocaine 5% Patch T-DERMAL SCH (20:35)
[2018-05-12] MEDS: Baclofen 10 MG Tablet PO SCH ×3 (04:00→17:28)
[2018-05-12] MEDS: Lactobacillus Acidophilus/L. Spores Tablet PO SCH (06:17)
[2018-05-12] MEDS: Senna/Docusate Sodium 8.6/50 MG Tablet PO SCH ×2 (08:37→20:19)
[2018-05-12] MEDS: Gabapentin 100 MG Capsule PO SCH ×3 (08:37→17:28)
[2018-05-12] MEDS: Calcium Carbonate 500 MG Tablet PO SCH ×2 (08:38→20:19)
[2018-05-12] MEDS: Divalproex 500 MG ER Tablet PO SCH ×2 (08:38→20:19)
[2018-05-12] MEDS: Sertraline 100 MG Tablet PO SCH (08:51)
--- NOTE | 2018-05-12 10:01 | P.PNPSY ---
Subjective Chief Complaint: PTSD Remarks: Patient seen in his room with RN and medical student Elida, chart reviewed, patient compliant medications. Patient calm cooperative appears resigned to the delays related to his placement. For now continue treatment Review of Systems All other systems reviewed negative except as stated in HPI Mental Status Examination Appearance: Disheveled (improved) Consciousness: Alert, Lethargic (Mildly) Orientation: Person, Place Motor Activity: Other (in wheelchair) Speech: Unremarkable Language: Adequate Fund of Knowledge: Inadequate Attention and Concentration: Easily distracted Memory: Impaired (poor recall of information ) Mood: Appropriate Affect: Appropriate Thought Process & Associations: Tangential Thought Content: Appropriate Hallucination Type: None Delusion Type: None Suicidal Ideation: No (denies today) Suicidal Plan: No Suicidal Intention: No Homicidal Ideation: No Homicidal Plan: No Homicidal Intention: No Insight: Poor Judgment: Poor Assessment and Plan - Assessment (1) PTSD (post-traumatic stress disorder) Code(s): F43.10 - Post-traumatic stress disorder, unspecified Status: Acute - Plan Plan: Patient somewhat calmer today. Is residing to the delays related to placement. He denies suicidality or voices. For now continue treatment Justification for Continued Inpatient Stay: At this time patient would decompensate if placed in a lower level of care Discharge Planning: To be determined placement remains problematic
[2018-05-12] MEDS: levETIRAcetam 250 MG Tablet PO SCH ×2 (11:40→21:01)
[2018-05-12] MEDS: Lidocaine 5% Patch T-DERMAL SCH (20:19)
[2018-05-13] MEDS: Baclofen 10 MG Tablet PO SCH ×3 (02:39→18:50)
[2018-05-13] MEDS: Gabapentin 100 MG Capsule PO SCH ×3 (09:12→18:50)
[2018-05-13] MEDS: Lactobacillus Acidophilus/L. Spores Tablet PO SCH (09:12)
[2018-05-13] MEDS: Calcium Carbonate 500 MG Tablet PO SCH ×2 (09:12→21:20)
[2018-05-13] MEDS: Ibuprofen 600 MG Tablet PO PRN (09:13)
[2018-05-13] MEDS: Divalproex 500 MG ER Tablet PO SCH ×2 (09:13→21:21)
[2018-05-13] MEDS: Senna/Docusate Sodium 8.6/50 MG Tablet PO SCH (09:13)
[2018-05-13] MEDS: Sertraline 100 MG Tablet PO SCH (09:13)
[2018-05-13] MEDS: levETIRAcetam 250 MG Tablet PO SCH ×2 (09:14→21:22)
--- NOTE | 2018-05-13 10:50 | P.PNPSY ---
Subjective Chief Complaint: PTSD Remarks: Patient seen in his room with nurse Roxana and medical student Elida. Chart reviewed. Patient compliant medication. Patient calm cooperative pleasant today. He again reminded me about his request for his evening snack. Of 2 peanut butter and jelly sandwiches and a carton of milk. I did order such. Patient's pino and hair getting along and somewhat disheveled with somewhat poor hygiene. Patient agreed to have a history of his hair and pino we will order that also otherwise patient denies suicidality voices or visions continues to cope with placement issues Review of Systems All other systems reviewed negative except as stated in HPI Mental Status Examination Appearance: Disheveled (improved) Consciousness: Alert, Lethargic (Mildly) Orientation: Person, Place Motor Activity: Other (in wheelchair) Speech: Unremarkable Language: Adequate Fund of Knowledge: Inadequate Attention and Concentration: Easily distracted Memory: Impaired (poor recall of information ) Mood: Appropriate Affect: Appropriate Thought Process & Associations: Tangential Thought Content: Appropriate Hallucination Type: None Delusion Type: None Suicidal Ideation: No (denies today) Suicidal Plan: No Suicidal Intention: No Homicidal Ideation: No Homicidal Plan: No Homicidal Intention: No Insight: Poor Judgment: Poor Assessment and Plan - Assessment (1) PTSD (post-traumatic stress disorder) Code(s): F43.10 - Post-traumatic stress disorder, unspecified Status: Acute - Plan Plan: Patient calm today continues somewhat paranoid and isolative but overall no significant behavioral problems. I did order the evening snack and I did order nursing to help patient treatment his pino and hair. Placement remains quite problematic Justification for Continued Inpatient Stay: At this time patient would decompensate a place to a lower level of care Discharge Planning: To be determined
[2018-05-13] MEDS: Lidocaine 5% Patch T-DERMAL SCH (21:20)
[2018-05-14] MEDS: Senna/Docusate Sodium 8.6/50 MG Tablet PO SCH ×3 (05:31→21:04)
[2018-05-14] MEDS: Baclofen 10 MG Tablet PO SCH ×3 (05:32→17:44)
[2018-05-14] MEDS: Sertraline 100 MG Tablet PO SCH (08:09)
[2018-05-14] MEDS: Lactobacillus Acidophilus/L. Spores Tablet PO SCH (08:09)
[2018-05-14] MEDS: Gabapentin 100 MG Capsule PO SCH ×3 (08:09→17:44)
[2018-05-14] MEDS: Divalproex 500 MG ER Tablet PO SCH ×2 (08:09→21:03)
[2018-05-14] MEDS: Calcium Carbonate 500 MG Tablet PO SCH ×2 (08:10→21:04)
[2018-05-14] MEDS: levETIRAcetam 250 MG Tablet PO SCH ×2 (10:33→21:04)
--- NOTE | 2018-05-14 12:17 | P.PNPSY ---
Subjective Chief Complaint: PTSD Remarks: Reviewed electronic medical records and discussed case with staff. Follow-up was conducted in the patient's room with the REID Ortega present. Patient is irritated over a sandwich that he received for lunch. Nurse reports he has been compliant with his medications. He states that he is "not feeling very good today". When asked why he claims to be nauseous and states that his appetite is on and off. He then goes into a long ramble about having several types of cancer including "colon and lung". He claims that he is in constant pain. He then quickly turns irritable and sarcastic. Patient is difficult to redirect verbally. Mental Status Examination Appearance: Disheveled (improved) Consciousness: Alert, Lethargic (Mildly) Orientation: Person, Place Motor Activity: Other (in wheelchair) Speech: Unremarkable Language: Adequate Fund of Knowledge: Inadequate Attention and Concentration: Easily distracted Memory: Impaired (poor recall of information ) Mood: Appropriate Affect: Appropriate Thought Process & Associations: Tangential Thought Content: Appropriate Hallucination Type: None Delusion Type: None Suicidal Ideation: No (denies today) Suicidal Plan: No Suicidal Intention: No Homicidal Ideation: No Homicidal Plan: No Homicidal Intention: No Insight: Poor Judgment: Poor Assessment and Plan - Assessment (1) PTSD (post-traumatic stress disorder) Code(s): F43.10 - Post-traumatic stress disorder, unspecified Status: Acute - Plan Plan: Patient will be reevaluated Wednesday by the attending psychiatrist. Continue with current treatment plan. Justification for Continued Inpatient Stay: Moving this patient to a less restrictive environment would likely result in decompensation.
[2018-05-14] MEDS: Lidocaine 5% Patch T-DERMAL SCH (21:02)
[2018-05-15] MEDS: Baclofen 10 MG Tablet PO SCH ×3 (03:32→18:17)
[2018-05-15] MEDS: Ibuprofen 600 MG Tablet PO PRN ×2 (05:31→20:20)
[2018-05-15] MEDS: Lactobacillus Acidophilus/L. Spores Tablet PO SCH (06:02)
[2018-05-15] MEDS: Senna/Docusate Sodium 8.6/50 MG Tablet PO SCH ×2 (08:13→20:20)
[2018-05-15] MEDS: Divalproex 500 MG ER Tablet PO SCH ×2 (08:13→20:20)
[2018-05-15] MEDS: Sertraline 100 MG Tablet PO SCH (08:14)
[2018-05-15] MEDS: Calcium Carbonate 500 MG Tablet PO SCH ×2 (08:14→20:20)
[2018-05-15] MEDS: Gabapentin 100 MG Capsule PO SCH ×3 (08:14→18:17)
--- NOTE | 2018-05-15 08:57 | P.PNPSY ---
Subjective Chief Complaint: PTSD Remarks: Reviewed electronic medical records and discussed case with staff. Follow-up was conducted in the dayroom with REID Jones. Patient is irritable, oppositional and angry. He is yelling and complaining about a sandwich he was suppose to receive yesterday. He needed to be redirected several times. He is rambling about having cancer and probably going to . He is eating well. Nursing staff report that he sleeps through the night. Review of Systems All other systems reviewed negative except as stated in HPI Mental Status Examination Appearance: Appropriate Consciousness: Alert Orientation: Person, Place Motor Activity: Other (in wheelchair) Speech: Unremarkable Language: Adequate Fund of Knowledge: Inadequate Attention and Concentration: Easily distracted Memory: Impaired (poor recall of information ) Mood: Oppositional, Irritable Affect: Anxious Thought Process & Associations: Tangential Thought Content: Appropriate Hallucination Type: None Delusion Type: Paranoid Suicidal Ideation: No (denies today) Suicidal Plan: No Suicidal Intention: No Homicidal Ideation: No Homicidal Plan: No Homicidal Intention: No Insight: Poor Judgment: Poor Assessment and Plan - Assessment (1) Post-traumatic stress disorder Code(s): F43.10 - Post-traumatic stress disorder, unspecified Status: Acute - Plan Plan: Patient will be reevaluated Wednesday by the attending psychiatrist. Continue with current treatment plan. Justification for Continued Inpatient Stay: Moving patient to a less restrictive environment may result in his decompensation.
[2018-05-15] MEDS: levETIRAcetam 250 MG Tablet PO SCH ×3 (09:00→21:06)
[2018-05-15] MEDS: Lidocaine 5% Patch T-DERMAL SCH (20:19)
[2018-05-16] MEDS: Baclofen 10 MG Tablet PO SCH ×3 (01:29→17:41)
[2018-05-16] MEDS: Lactobacillus Acidophilus/L. Spores Tablet PO SCH (06:05)
[2018-05-16] MEDS: Gabapentin 100 MG Capsule PO SCH ×3 (09:29→17:41)
[2018-05-16] MEDS: Calcium Carbonate 500 MG Tablet PO SCH ×2 (09:29→21:34)
[2018-05-16] MEDS: Sertraline 100 MG Tablet PO SCH (09:29)
[2018-05-16] MEDS: Senna/Docusate Sodium 8.6/50 MG Tablet PO SCH ×2 (09:29→21:43)
[2018-05-16] MEDS: Divalproex 500 MG ER Tablet PO SCH ×2 (09:29→21:04)
[2018-05-16] MEDS: levETIRAcetam 250 MG Tablet PO SCH ×2 (09:30→21:32)
--- NOTE | 2018-05-16 10:35 | P.TTN ---
- Patient Problems Problems: 1. Discharge planning 2. Medication compliance 3. Knowledge deficit 4. Lack of coping skills - Progress Toward Goals Provider Present: Dr. Ade Pina Provider Input: 05/16/18: pt continues to be placement challenge, facilities continue to be solicited for pt placement. 05/02/18- Patient recieved ETO Wednesday morning, had been expereincing flashback with relation to [place]. [facility]. Patient remains placement issue Psychiatric Counselors Present: Krish Wang Jr., [facility], Other Psychiatric Therapist Input: Jael 05/02/18- Patient contieus to remain palcement issue. Possible state referral. Patietn has exhibited increase in irritability in past few days. Continues to have poor insight. Jael - Patient remains a placment issue, [facility]. Patient has been cooperative, no behavioral issues Group Spec/RT/OT/DYER Present: Nguyen Leblanc, GPS, Lionel Benson, OT, Stuart Cardenas, DYER Group Spec/RT/OT/DYER Input: 05/16/18: Pt does not attend groups, impulsivity remains limiting factor. 05/02/18- Does not attend groups. Does not attend groups, inappropriate in groups - Discharge Plan 05/16/18: Pt continues to be challenge for placement relative to pt's behaviors. Continue to seek placement with SNF and work with [employer] [facility]. Medicaid application is in process of being filed. - Documentation Scribe: Lionel Benson, MS, OTR Teaching Recipient: Patient
--- NOTE | 2018-05-16 11:18 | P.PNPSY ---
Subjective Chief Complaint: PTSD Remarks: Patient seen and carmichael with nurse Tanya and medical student Elida. Patient happy and proud of his pino being trimmed and having a haircut. He is somewhat more alert calm and focused though he remains at times tangential though not as focused on discharge. He is compliant medications. Continues to tolerate placement issues Review of Systems All other systems reviewed negative except as stated in HPI Mental Status Examination Appearance: Appropriate Consciousness: Alert Orientation: Person, Place Motor Activity: Other (in wheelchair) Speech: Unremarkable Language: Adequate Fund of Knowledge: Inadequate Attention and Concentration: Easily distracted Memory: Impaired (poor recall of information ) Mood: Oppositional, Irritable Affect: Anxious Thought Process & Associations: Tangential Thought Content: Appropriate Hallucination Type: None Delusion Type: Paranoid Suicidal Ideation: No (denies today) Suicidal Plan: No Suicidal Intention: No Homicidal Ideation: No Homicidal Plan: No Homicidal Intention: No Insight: Poor Judgment: Poor Assessment and Plan - Assessment (1) PTSD (post-traumatic stress disorder) Code(s): F43.10 - Status: Acute - Plan Plan: Patient calm cooperative is pleased with his new trimmed pino and haircut. Compliant medication. For now continue treatment Justification for Continued Inpatient Stay: At this time patient would decompensate if not placed in an appropriate level of care Discharge Planning: To be determined
[2018-05-16] MEDS ORDERED: Haloperidol Inj 5 MG/ML Ampul IM ONE (23:30)
[2018-05-17] MEDS: Lidocaine 5% Patch T-DERMAL SCH ×2 (00:23→20:23)
[2018-05-17] MEDS: Baclofen 10 MG Tablet PO SCH ×3 (04:20→19:08)
[2018-05-17] MEDS: Lactobacillus Acidophilus/L. Spores Tablet PO SCH (09:47)
[2018-05-17] MEDS: Divalproex 500 MG ER Tablet PO SCH ×2 (09:47→20:23)
[2018-05-17] MEDS: Senna/Docusate Sodium 8.6/50 MG Tablet PO SCH ×2 (09:48→20:23)
[2018-05-17] MEDS: Gabapentin 100 MG Capsule PO SCH ×3 (09:48→19:08)
[2018-05-17] MEDS: Sertraline 100 MG Tablet PO SCH (09:48)
[2018-05-17] MEDS: Calcium Carbonate 500 MG Tablet PO SCH ×2 (09:48→20:23)
[2018-05-17] MEDS: levETIRAcetam 250 MG Tablet PO SCH ×2 (11:15→22:09)
--- NOTE | 2018-05-17 15:06 | P.PNPSY ---
Subjective Chief Complaint: PTSD Remarks: Patient seen in his room sitting on the edge of his bed patient is seen with nurse Tanya. Chart reviewed. Patient compliant medications. It appears patient still is being woken early in the morning when he is in a fairly deep sleep leading to him becoming somewhat aroused with flashbacks from his PTSD. We will request staff to let patient sleep until he wakes up and then do the morning vitals. Patient also having some difficulty with getting his peanut butter jelly snacks as needed we will re-enforced that order. Otherwise patient calm cooperative coping with issues with placement. Review of Systems All other systems reviewed negative except as stated in HPI Mental Status Examination Appearance: Appropriate Consciousness: Alert Orientation: Person, Place Motor Activity: Other (in wheelchair) Speech: Unremarkable Language: Adequate Fund of Knowledge: Inadequate Attention and Concentration: Easily distracted Memory: Impaired (poor recall of information ) Mood: Oppositional, Irritable Affect: Anxious Thought Process & Associations: Tangential Thought Content: Appropriate Hallucination Type: None Delusion Type: Paranoid Suicidal Ideation: No (denies today) Suicidal Plan: No Suicidal Intention: No Homicidal Ideation: No Homicidal Plan: No Homicidal Intention: No Insight: Poor Judgment: Poor Assessment and Plan - Assessment (1) PTSD (post-traumatic stress disorder) Code(s): F43.10 - Post-traumatic stress disorder, unspecified Status: Acute - Plan Plan: Patient somewhat calmer more focused continues to express his displeasure with certain behaviors please see adjustments to be made above Justification for Continued Inpatient Stay: At this time patient would decompensate if not placed in an appropriate level of care Discharge Planning: Placement remains problematic
[2018-05-18] MEDS: Baclofen 10 MG Tablet PO SCH ×3 (01:50→18:25)
[2018-05-18] MEDS: Lactobacillus Acidophilus/L. Spores Tablet PO SCH (06:25)
[2018-05-18] MEDS: Sertraline 100 MG Tablet PO SCH (09:17)
[2018-05-18] MEDS: Gabapentin 100 MG Capsule PO SCH ×3 (09:18→18:25)
[2018-05-18] MEDS: Divalproex 500 MG ER Tablet PO SCH ×2 (09:18→20:16)
[2018-05-18] MEDS: Senna/Docusate Sodium 8.6/50 MG Tablet PO SCH ×2 (09:18→20:16)
[2018-05-18] MEDS: Calcium Carbonate 500 MG Tablet PO SCH ×2 (09:18→20:16)
[2018-05-18] MEDS: levETIRAcetam 250 MG Tablet PO SCH (09:26)
--- NOTE | 2018-05-18 12:19 | P.PNPSY ---
Subjective Chief Complaint: PTSD Remarks: Patient is seen in day room with nurse leigh, finishing up his lunch. Chart reviewed. Patient compliant medication. Patient continues calm cooperative is starting to get his peanut butter and jelly snacks the way he has requested. Otherwise no significant behavioral problems he continues to cope with placement issues for now continue treatment no change Review of Systems All other systems reviewed negative except as stated in HPI Mental Status Examination Appearance: Appropriate Consciousness: Alert Orientation: Person, Place Motor Activity: Other (in wheelchair) Speech: Unremarkable Language: Adequate Fund of Knowledge: Inadequate Attention and Concentration: Easily distracted Memory: Impaired (poor recall of information ) Mood: Oppositional, Irritable Affect: Anxious Thought Process & Associations: Tangential Thought Content: Appropriate Hallucination Type: None Delusion Type: Paranoid Suicidal Ideation: No (denies today) Suicidal Plan: No Suicidal Intention: No Homicidal Ideation: No Homicidal Plan: No Homicidal Intention: No Insight: Poor Judgment: Poor Assessment and Plan - Assessment (1) PTSD (post-traumatic stress disorder) Code(s): F43.10 - Post-traumatic stress disorder, unspecified Status: Acute - Plan Plan: Patient somewhat calm and focused today. Compliant medications. Continues to cope with placement issues Justification for Continued Inpatient Stay: At this time patient would decompensate a place to a lower level of care Discharge Planning: Placement remains problematic
--- NOTE | 2018-05-18 15:24 | P.TTN ---
- Patient Problems Problems: 1. Discharge planning 2. Medication compliance 3. Knowledge deficit 4. Lack of coping skills - Progress Toward Goals Provider Present: Dr. Ade Pina, Dr. Greta Sam Provider Input: 05/18/18: Discuss discharge plan for placement. 05/16/18: pt continues to be placement challenge, facilities continue to be solicited for pt placement. 05/02/18- Patient recieved ETO Wednesday morning, had been expereincing flashback with relation to [place]. [facility] Patient remains placement issue Nurse(s) Present: Anna RN Nurse Input: 05/18/18: Delusional, paranoid, Med compliant Psychiatric Counselors Present: Krish Wang Jr., [facility], Other Psychiatric Therapist Input: 05/18/18: Pt is unstable and needs more time. Jael 05/02/18- Patient contieus to remain palcement issue. Possible state referral. Patietn has exhibited increase in irritability in past few days. Continues to have poor insight. Jael -Patient remains a placment issue, [place] assiting with [facility] for [facility]ment with [facility]. Patient has been cooperative, no behavioral issues Group Spec/RT/OT/DYER Present: CASPER Pedraza, Lionel Benson, OT Group Spec/RT/OT/DYER Input: 05/18/18: Pt is unable to tolerate the group activities. Pt will receive further encouragement to attend and participate in the group activities. 05/16/18: Pt does not attend groups, impulsivity remains limiting factor. 05/02/18- Does not attend groups. Does not attend groups, inappropriate in groups - Discharge Plan 05/16/18: Pt continues to be challenge for placement relative to pt's behaviors. Continue to seek placement with SNF and work with [employer] [facility]. Medicaid application is in process of being filed. - Documentation Scribe: Lionel Benson, MS, OTR Teaching Recipient: Patient
[2018-05-18] MEDS: Lidocaine 5% Patch T-DERMAL SCH (20:16)
[2018-05-19] MEDS: levETIRAcetam 250 MG Tablet PO SCH ×4 (00:32→23:00)
[2018-05-19] MEDS: Baclofen 10 MG Tablet PO SCH ×3 (02:47→17:10)
[2018-05-19] MEDS: Lactobacillus Acidophilus/L. Spores Tablet PO SCH (06:02)
[2018-05-19] MEDS: Sertraline 100 MG Tablet PO SCH (09:53)
[2018-05-19] MEDS: Calcium Carbonate 500 MG Tablet PO SCH ×3 (09:54→22:51)
[2018-05-19] MEDS: Senna/Docusate Sodium 8.6/50 MG Tablet PO SCH ×3 (09:54→22:51)
[2018-05-19] MEDS: Divalproex 500 MG ER Tablet PO SCH ×3 (09:55→22:50)
[2018-05-19] MEDS: Gabapentin 100 MG Capsule PO SCH ×3 (09:55→17:11)
--- NOTE | 2018-05-19 12:52 | P.PNPSY ---
Subjective Chief Complaint: PTSD Remarks: Patient seen in his room with RN, chart reviewed, patient compliant medications. Patient calm though seems a little bit more confused today but no behavioral problems. Continues to be somewhat frustrated with placement issues Review of Systems All other systems reviewed negative except as stated in HPI Mental Status Examination Appearance: Appropriate Consciousness: Alert Orientation: Person, Place Motor Activity: Other (in wheelchair) Speech: Unremarkable Language: Adequate Fund of Knowledge: Inadequate Attention and Concentration: Easily distracted Memory: Impaired (poor recall of information ) Mood: Oppositional, Irritable Affect: Anxious Thought Process & Associations: Tangential Thought Content: Appropriate Hallucination Type: None Delusion Type: Paranoid Suicidal Ideation: No (denies today) Suicidal Plan: No Suicidal Intention: No Homicidal Ideation: No Homicidal Plan: No Homicidal Intention: No Insight: Poor Judgment: Poor Assessment and Plan - Assessment (1) PTSD (post-traumatic stress disorder) Code(s): F43.10 - Post-traumatic stress disorder, unspecified Status: Acute - Plan Plan: Patient continues somewhat confused and distracted, the low behavioral problems , compliant medications. Justification for Continued Inpatient Stay: At this time patient would decompensate a place to a lower level of care Discharge Planning: To be determined placement remains problematic
--- NOTE | 2018-05-19 19:56 | XR ---
EXAM DATE: 05/19/2018 12:00 AM EDT AGE/SEX: 62 years / Male INDICATIONS: Cough and history of COPD. CLINICAL DATA: This is the patient's initial encounter. Patient reports that signs and symptoms have been present for 1 day and indicates a pain score of Nonresponsive. MEDICAL/SURGICAL HISTORY: . Chronic obstructive pulmonary disease. Hypertension. Seizures. . Tonsillectomy. Appendectomy. Cholecystectomy. [place] [facility] [place]. . FINDINGS: Mild patchy airspace opacities are seen of both lung bases. No pleural effusion seen. No pneumothorax . Heart size upper limits of normal. CONCLUSION: Mild patchy consolidation of both lung bases. Electronically signed by: Eder Piper MD 05/19/2018 7:55 PM EDT
[2018-05-19] MEDS: Lidocaine 5% Patch T-DERMAL SCH (21:03)
[2018-05-19] MEDS ORDERED: levoFLOXacin 750 MG Tablet PO SCH (22:00)
[2018-05-19 22:06] LABS: Albumin 3.2 g/dL (3.4-5.0); Anion Gap 8 meq/L (5-15); Aspartate Aminotransferase 44 U/L (15-37); Blood Urea Nitrogen 34 mg/dL (7-18); Calcium 9.1 mg/dL (8.5-10.1); Carbon Dioxide 25.7 meq/L (21.0-32.0); Chloride 104 meq/L (98-107); Glomerular Filtration Rate 57 mL/min (>89); Glucose,Random 94 mg/dL (74-106); Potassium 4.2 meq/L (3.5-5.1); Sodium 138 meq/L (136-145)
[2018-05-19 22:07] LABS: Alanine Aminotransferase 30 U/L (12-78)
[2018-05-19 22:16] LABS: Alkaline Phosphatase 58 U/L (45-117); Free T4 (Free Thyroxine) 0.61 ng/dL (0.76-1.46); Total Protein 8.9 g/dL (6.4-8.2)
[2018-05-19 22:29] LABS: Baso % (Auto) 0.1 % (0.0-2.0); Eos % (Auto) 0.3 % (0.0-4.0); Hematocrit 35.6 % (39.0-51.0); Hemoglobin 12.1 gm/dL (13.0-17.0); Lymph # (Auto) 2.3 th/mm3 (1.0-4.8); Lymph % (Auto) 21.3 % (9.0-44.0); Mean Corpuscular Hemoglobin 30.1 pg (27.0-34.0); Mean Corpuscular Volume 88.6 fL (80.0-100.0); Mean Platelet Volume 7.9 fL (7.0-11.0); Mono # (Auto) 1.9 th/mm3 (0.0-0.9); Mono % (Auto) 17.3 % (0.0-8.0); Neut # (Auto) 6.6 th/mm3 (1.8-7.7); Platelet Count 85 th/mm3 (150-450); Red Blood Count 4.02 mil/mm3 (4.50-5.90); Red Cell Distribution Width 13.5 % (11.6-17.2); White Blood Count 10.9 th/mm3 (4.0-11.0)
[2018-05-19 22:53] LABS: RBC Morphology Normal (Normal)
[2018-05-20 00:13] LABS: ABG Base Excess 2.5 mmol/L (-2-2); ABG PCO2 35 mmHg (38-42); ABG PO2 57 mmHG (61-120)
[2018-05-20] MEDS ORDERED: Vancomycin Consult Pharmacy OTHER ONE (01:23)
[2018-05-20] MEDS ORDERED: Vancomycin Consult Pharmacy OTHER SCH (02:00)
[2018-05-20] MEDS ORDERED: Vancomycin Inj 1,500 MG in Sodium Chlor 0.9% Inj 500 ML IV.SIG SCH (03:00)
--- NOTE | 2018-05-20 03:23 | P.PNIM ---
Subjective Interval history: Hs were reconsulted because the patient was becoming lethargic and had an abnormal CXR showing mild bibasilar patchy opacities. ABG showed hypoxia with oxygen saturation of 88% and pO2 57. The patient was subsequently transferred to [facility] from the inpatient psych unit. The patient is seen in [facility]. He remains somewhat lethargic and noncooperative with history. Per nursing, the patient has had productive cough with green sputum. He remains afebrile. WBC noted within normal parameters though differential shows monocytosis. . Physical Exam Vital signs: Vital Signs 05/19/18 06:00 05/19/18 18:10 05/19/18 18:48 Temperature 97.6 F 98.5 F 99.3 F Pulse Rate 83 89 95 H Respiratory Rate 18 18 Blood Pressure 153/79 H 114/89 113/62 Pulse Oximetry 93 L 05/19/18 22:10 05/19/18 22:17 Temperature 98.0 F Pulse Rate 85 85 Respiratory Rate 16 20 Blood Pressure 119/67 Pulse Oximetry 93 L Intake & Output 05/19/18 05/19/18 05/20/18 06:59 18:59 06:59 Intake Total 400 / 400 1440 / 1440 0 / 0 Balance 400 / 400 1440 / 1440 0 / 0 Intake: Oral 150 / 150 1440 / 1440 0 / 0 Oral Supplement 250 / 250 0 / 0 Other: # Voids 1 3 1 # Urine Diapers 1 Date of Last Bowel Movement 05/18/18 # Bowel Movements 0 Narrative: GENERAL: Older male patient, noncooperative with history. Extremely hard of hearing. SKIN: Warm and dry. HEAD: Normocephalic. EYES: Pupils equal and round. No drainage. ENT: No nasal bleeding or discharge. Mucous membranes pink and moist. NECK: Trachea midline. CARDIOVASCULAR: Regular rate and rhythm. RESPIRATORY: No accessory muscle use. Breath sounds somewhat diminished at bases. Breath sounds equal bilaterally. GASTROINTESTINAL: Abdomen soft, non-tender, nondistended. MUSCULOSKELETAL: Extremities without clubbing, cyanosis. No edema noted. NEUROLOGICAL: Lethargic and noncooperative. [place]. Results - Labs CBC & Chem 7: 05/19/18 22:24 05/19/18 21:27 Laboratory Results - last 24 hr 05/19/18 05/19/18 05/19/18 21:27 22:24 23:37 WBC 10.9 RBC 4.02 L Hgb 12.1 L Hct 35.6 L MCV 88.6 MCH 30.1 MCHC 34.0 RDW 13.5 Plt Count 85 L MPV 7.9 Prelim Diff (Auto) Slide review pending Neut % (Auto) 61.0 Lymph % (Auto) 21.3 [place] % (Auto) 17.3 H Eos % (Auto) 0.3 Baso % (Auto) 0.1 Neut # (Auto) 6.6 Lymph # (Auto) 2.3 [place] # (Auto) 1.9 H Eos # (Auto) 0.0 Baso # (Auto) 0.0 WBC Differential . Diff Scan Auto diff confirmed Differential Comment . Platelet Estimate Low L Platelet Morphology Enlarged H RBC Morphology Normal Puncture Site Patient Temperature O2 Saturation ABG pH ABG pCO2 ABG pO2 ABG HCO3 ABG O2 Content ABG Base Excess ABG Methemoglobin Mingo Test Hemoglobin Carboxyhemoglobin O2 Delivery Device Inspired O2 Critical Value Sodium 138 Potassium 4.2 Chloride 104 Carbon Dioxide 25.7 Anion Gap 8 BUN 34 H Creatinine 1.27 Estimated GFR 57 L Random Glucose 94 Lactic Acid 0.9 Calcium 9.1 Total Bilirubin 0.5 AST 44 H ALT 30 Alkaline Phosphatase 58 Ammonia Total Protein 8.9 H Albumin 3.2 L TSH 1.780 Free T4 0.61 L 05/19/18 05/19/18 23:37 23:52 WBC RBC Hgb Hct MCV MCH MCHC RDW Plt Count MPV Prelim Diff (Auto) Neut % (Auto) Lymph % (Auto) [place] % (Auto) Eos % (Auto) Baso % (Auto) Neut # (Auto) Lymph # (Auto) [place] # (Auto) Eos # (Auto) Baso # (Auto) WBC Differential Diff Scan Differential Comment Platelet Estimate Platelet Morphology RBC Morphology Puncture Site Right radial Patient Temperature 98.6 O2 Saturation 88 L* ABG pH 7.48 H ABG pCO2 35 L ABG pO2 57 L* ABG HCO3 26 ABG O2 Content 15.8 ABG Base Excess 2.5 H ABG Methemoglobin 1.6 Mingo Test Present Hemoglobin 12.8 Carboxyhemoglobin 1.8 O2 Delivery Device Room air Inspired O2 21 Critical Value Yes Sodium Potassium Chloride Carbon Dioxide Anion Gap BUN Creatinine Estimated GFR Random Glucose Lactic Acid Calcium Total Bilirubin AST ALT Alkaline Phosphatase Ammonia 36 H Total Protein Albumin TSH Free T4 - Imaging Impressions Chest X-Ray 05/19/18 00:00 CONCLUSION: Mild patchy consolidation of both lung bases. Assessment and Plan - Plan HHHs were reconsulted because the patient was becoming lethargic and had an abnormal CXR showing mild bibasilar patchy opacities. ABG showed hypoxia with oxygen saturation of 88% and pO2 57. The patient was subsequently transferred to Med/Psych from the inpatient psych unit. Bilateral lower lobe pneumonia - CXR shows: Mild patchy consolidation of both lung bases - ABGs showed PO2 57 and saturation 88%. - Duonebs q6h ATC and q4h PRN sob/wheezing - supplemental oxygen titrated to maintain saturation > 92% - Antibiotics: IV Zosyn, Azithromycin, and Vancomycin - CBC ordered and reviewed - monocytosis noted on CBC - possibly viral illness; WBC 10.9. - Lactic acid normal at 0.9 - check sputum culture Dehydration - CMP ordered and reviewed - BUN 34 - patient likely has some degree of dehydration - NS at 100 cc/hr - Check bmp in am and follow results Lethargy - likely multifactorial secondary to hypothyroidism, dehydration, and pneumonia - rechecked thyroid functions - free T3 remains low at 0.61 - Synthroid increased to 50 mcg per day - will need to recheck TFTs in 6-8 weeks - rehydration as per above - pneumonia treatment as per above - Ammonia level minimally elevated at 36 - level is lower than on previous checks Thrombocytopenia - possibly medication related - platelet count 85,000 - recheck in am and follow results DVT prophylaxis - Heparin 5000 units subq q8h - monitor platelets closely Discussed Condition With: Dr. Navarrete and RN .
[2018-05-20] MEDS: Baclofen 10 MG Tablet PO SCH ×3 (05:09→18:13)
[2018-05-20] MEDS: Levothyroxine 50 MCG Tablet PO SCH (06:03)
[2018-05-20] MEDS: Lactobacillus Acidophilus/L. Spores Tablet PO SCH (06:03)
[2018-05-20] MEDS: Heparin - SQ 10,000 UNITS/ML Vial SQ SCH ×3 (06:20→21:02)
[2018-05-20] MEDS: levETIRAcetam 250 MG Tablet PO SCH ×2 (09:46→21:02)
[2018-05-20] MEDS: Senna/Docusate Sodium 8.6/50 MG Tablet PO SCH ×2 (09:46→21:03)
[2018-05-20] MEDS: Calcium Carbonate 500 MG Tablet PO SCH ×2 (09:47→21:03)
[2018-05-20] MEDS: Gabapentin 100 MG Capsule PO SCH ×3 (09:47→18:13)
[2018-05-20] MEDS: Divalproex 500 MG ER Tablet PO SCH ×2 (09:47→21:04)
[2018-05-20] MEDS: Sertraline 100 MG Tablet PO SCH (09:47)
[2018-05-20] MEDS: Piperacil/Tazo 4.5 GM Premix 4.5 GM/100 ML BAG IV.SIG SCH ×3 (11:04→20:55)
[2018-05-20] MEDS: Vancomycin Inj 1,500 MG in Sodium Chlor 0.9% Inj 500 ML IV.SIG SCH (11:06)
[2018-05-20] MEDS: Sod Chloride 0.9% Inj 1,000 ML IV.CONT SCH ×3 (11:06→20:52)
--- NOTE | 2018-05-20 11:58 | ECG ---
Date Performed: 05/19/2018 Time Performed: 21:42:07 PTAGE: 62 years EKG: Sinus rhythm NORMAL ECG PREVIOUS TRACING : 03/26/2018 14.29 Since the previous tracing, no significant change noted DOCTOR: Elder Esteban Interpretating Date/Time 05/20/2018 11:57:04
--- NOTE | 2018-05-20 13:48 | P.PNPSY ---
Subjective Chief Complaint: PTSD Remarks: Patient seen in his room on [address] with RN and medical student Elida. Chart reviewed. Patient transferred to 4 E[address] to increased respiratory difficulty and pneumonia. Along with dehydration. Hospitalists assessment recommendations and treatment reviewed and agreed with. Patient seen by me this afternoon laying in bed with nasal oxygen and IVs noted patient somewhat sleepy but arousable to angry and irritable asking me to leave the room being somewhat angry and aggressive with his attitude. For now continue medications no change the may be a component of delirium developing with this gentleman Review of Systems All other systems reviewed negative except as stated in HPI Mental Status Examination Appearance: Appropriate Consciousness: Alert, Lethargic (Mildly) Orientation: Person, Place Motor Activity: Other (in wheelchair) Speech: Rapid, Hesitant Language: Adequate Fund of Knowledge: Inadequate Attention and Concentration: Easily distracted Memory: Impaired (poor recall of information ) Mood: Angry, Oppositional, Irritable Affect: Other (Slight increased range and intensity) Thought Process & Associations: Tangential Thought Content: Appropriate, Other (Disorganized) Hallucination Type: None Delusion Type: Paranoid Suicidal Ideation: No (denies today) Suicidal Plan: No Suicidal Intention: No Homicidal Ideation: No Homicidal Plan: No Homicidal Intention: No Insight: Poor Judgment: Poor Assessment and Plan - Assessment (1) PTSD (post-traumatic stress disorder) Code(s): F43.10 - Post-traumatic stress disorder, unspecified Status: Acute - Plan Plan: Patient remains confused now with a component of delirium. Angry with me today. For now continue treatment Justification for Continued Inpatient Stay: At this time patient would decompensate a place to the lower level of care Discharge Planning: To be determined
[2018-05-20] MEDS: Azithromycin Inj 500 MG in Sodium Chlor 0.9% Inj 250 ML IV.SIG SCH (20:55)
[2018-05-20] MEDS: Lidocaine 5% Patch T-DERMAL SCH (21:04)
[2018-05-21] MEDS: Sod Chloride 0.9% Inj 1,000 ML IV.CONT SCH ×3 (03:25→18:24)
[2018-05-21] MEDS: Baclofen 10 MG Tablet PO SCH ×3 (03:29→18:23)
[2018-05-21] MEDS: Piperacil/Tazo 4.5 GM Premix 4.5 GM/100 ML BAG IV.SIG SCH ×4 (03:30→22:33)
[2018-05-21] MEDS: Azithromycin Inj 500 MG in Sodium Chlor 0.9% Inj 250 ML IV.SIG SCH (03:30)
[2018-05-21] MEDS: Levothyroxine 50 MCG Tablet PO SCH (05:05)
[2018-05-21] MEDS: Ibuprofen 600 MG Tablet PO PRN ×2 (05:05→12:41)
[2018-05-21] MEDS: Heparin - SQ 10,000 UNITS/ML Vial SQ SCH ×3 (05:06→22:34)
--- NOTE | 2018-05-21 08:30 | P.PNPSY ---
Subjective Chief Complaint: PTSD Remarks: Patient seen for follow, chart reviewed. Discussion nursing staff reported the patient last evening continues to be confused had gotten up in the middle of the night and urinated on the floor. Patient continues with IV antibiotics. Patient was found lying hospital bed this morning noted to be asleep was able to wake up to interact with interview superficially and mostly responding through nodding stating that he has difficulty hearing but was able to state not having any difficulty with breathing denies any shortness of breath noted to have confusion at baseline. Patient was encouraged to continue recommendations for treatment which he nodded in agreement. Review of Systems All other systems reviewed negative except as stated in HPI Mental Status Examination Appearance: Appropriate Consciousness: Alert, Lethargic (Mildly) Orientation: Person, Place Motor Activity: Other (in wheelchair) Speech: Other (Mostly nodding his head in response) Language: Adequate Fund of Knowledge: Inadequate Attention and Concentration: Easily distracted Memory: Impaired (poor recall of information ) Mood: Appropriate Affect: Blunt Thought Process & Associations: Other ([place]) Thought Content: Other (Disorganized) Hallucination Type: None Delusion Type: Paranoid Suicidal Ideation: No (denies today) Suicidal Plan: No Suicidal Intention: No Homicidal Ideation: No Homicidal Plan: No Homicidal Intention: No Insight: Poor Judgment: Poor Assessment and Plan - Assessment (1) PTSD (post-traumatic stress disorder) Code(s): F43.10 - Post-traumatic stress disorder, unspecified Status: Acute - Plan Plan: Patient continues with baseline confusion, continues with some disorganized behavior likely secondary to delirium superimposed on dementia. We will continue current recommendations as per prior medical team. Continue to monitor mood and behavior. Discharge planning a progress. Justification for Continued Inpatient Stay: At risk of further decompensation a lower level of care.
[2018-05-21] MEDS: Gabapentin 100 MG Capsule PO SCH ×3 (08:42→18:23)
[2018-05-21] MEDS: Sertraline 100 MG Tablet PO SCH (08:42)
[2018-05-21] MEDS: Lactobacillus Acidophilus/L. Spores Tablet PO SCH (08:42)
[2018-05-21] MEDS: Senna/Docusate Sodium 8.6/50 MG Tablet PO SCH ×2 (08:42→22:34)
[2018-05-21] MEDS: Calcium Carbonate 500 MG Tablet PO SCH ×2 (08:42→22:33)
[2018-05-21] MEDS: Divalproex 500 MG ER Tablet PO SCH ×2 (08:42→22:33)
[2018-05-21] MEDS: levETIRAcetam 250 MG Tablet PO SCH ×2 (10:03→22:34)
[2018-05-21 10:13] LABS: Hematocrit 33.7 % (39.0-51.0); Hemoglobin 11.2 gm/dL (13.0-17.0); Mean Corpuscular HGB Conc 33.4 % (32.0-36.0); Mean Corpuscular Hemoglobin 29.8 pg (27.0-34.0); Mean Corpuscular Volume 89.2 fL (80.0-100.0); Mean Platelet Volume 7.8 fL (7.0-11.0); Platelet Count 77 th/mm3 (150-450); Red Blood Count 3.77 mil/mm3 (4.50-5.90); Red Cell Distribution Width 13.3 % (11.6-17.2); White Blood Count 5.8 th/mm3 (4.0-11.0)
[2018-05-21 10:37] LABS: Calcium 8.1 mg/dL (8.5-10.1); Carbon Dioxide 27.4 meq/L (21.0-32.0); Potassium 3.9 meq/L (3.5-5.1)
[2018-05-21] MEDS: Vancomycin Inj 1,500 MG in Sodium Chlor 0.9% Inj 500 ML IV.SIG SCH (11:38)
--- NOTE | 2018-05-21 13:25 | P.PN ---
Subjective Interval history: Follow up for PNA; Pt. awakes to voice, not talking much, difficulty to obtain ROS. Confused overnight, got out of bed and peed on floor. Asking to void at this time. No resp. distress noted, on oxygen at 2L/NC, sats 97%. No fever overnight, 100.3 yesterday afternoon. No cough observed. Physical Exam Vital signs: Vital Signs 05/20/18 17:07 05/20/18 17:31 05/20/18 21:32 Temperature 100.3 F H Pulse Rate 85 87 Respiratory Rate 16 19 Blood Pressure 123/77 Pulse Oximetry 96 96 05/21/18 05:57 05/21/18 09:00 05/21/18 09:15 Temperature 98.1 F Pulse Rate 81 58 L Respiratory Rate 16 12 Blood Pressure 123/74 Pulse Oximetry 94 L 97 97 Intake & Output 05/20/18 05/21/18 05/21/18 18:59 06:59 18:59 Intake Total 795 / 795 1450 / 1450 580 / 580 Balance 795 / 795 1450 / 1450 580 / 580 Intake: IV 615 / 615 1450 / 1450 100 / 100 NS Inj 1,000 ML @ 100 mls/hr IV 1000 / 1000 .CONT .Q10H [facility]NEY Rx#:[id number] Azithromycin Inj 500 MG In NS 250 / 250 Inj 250 ML @ 250 mls/hr IV.SIG Q24H [facility] Rx#:[id number] Zosyn 4.5 GM Premix 4.5 gm In 100 / 100 200 / 200 100 / 100 100 ml @ 200 mls/hr IV.SIG Q6H [facility]NEY Rx#:[id number] Vancomycin Inj 1,500 MG In NS 515 / 515 Inj 500 ML @ 250 mls/hr IV.SIG Q24H S[facility]NEY Rx#:[id number] Oral 180 / 180 0 / 0 480 / 480 Other: # Voids 2 Narrative: GENERAL: Older male patient, noncooperative with history. Extremely hard of hearing. SKIN: Warm and dry. HEAD: Normocephalic. EYES: Pupils equal and round. No drainage. ENT: No nasal bleeding or discharge. Mucous membranes pink and moist. NECK: Trachea midline. CARDIOVASCULAR: Regular rate and rhythm. RESPIRATORY: No accessory muscle use. Breath sounds somewhat diminished at bases. Breath sounds equal bilaterally. GASTROINTESTINAL: Abdomen soft, non-tender, nondistended. MUSCULOSKELETAL: Extremities without clubbing, cyanosis. No edema noted. NEUROLOGICAL: Awakes to voice, difficult to assess. No focal deficits noted. Results - Labs CBC & Chem 7: 05/21/18 09:44 05/21/18 09:44 Laboratory Results - last 24 hr 05/21/18 05/21/18 09:44 09:44 WBC 5.8 RBC 3.77 L Hgb 11.2 L Hct 33.7 L MCV 89.2 MCH 29.8 MCHC 33.4 RDW 13.3 Plt Count 77 L MPV 7.8 Sodium 143 Potassium 3.9 Chloride 108 H Carbon Dioxide 27.4 Anion Gap 8 BUN 28 H Creatinine 1.08 Estimated GFR 69 L Random Glucose 87 Calcium 8.1 L D Microbiology 05/20/18 02:32 Sputum - Expectorated Sputum Gram Stain - Final 05/20/18 02:32 Sputum - Expectorated Sputum Sputum Culture - Preliminary Heavy growth normal respiratory buffy at 24 hours Assessment and Plan - Plan HHHs were reconsulted because the patient was becoming lethargic and had an abnormal CXR showing mild bibasilar patchy opacities. ABG showed hypoxia with oxygen saturation of 88% and pO2 57. The patient was subsequently transferred to Med/Psych from the inpatient psych unit. Bilateral lower lobe pneumonia. Poss viral. - CXR shows: Mild patchy consolidation of both lung bases - ABGs showed PO2 57 and saturation 88%. - Duonebs q6h ATC and q4h PRN sob/wheezing - supplemental oxygen titrated to maintain saturation > 92% - Antibiotics: IV Zosyn, Azithromycin, and Vancomycin -sputum culture, normal buffy Dehydration -continue with hydration, not eating much Lethargy - likely multifactorial secondary to hypothyroidism, dehydration, and pneumonia - thyroid functions rechecked- free T3 remains low at 0.61 - Synthroid was increased to 50 mcg per day - will need to recheck TFTs in 6-8 weeks - rehydration as per above - pneumonia treatment as per above - Ammonia level minimally elevated at 36 - level is lower than on previous checks -some improvement today Thrombocytopenia - possibly medication related, infection. - platelet count 85,000>>77,000. 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
[2018-05-21] MEDS: Lidocaine 5% Patch T-DERMAL SCH (22:33)
[2018-05-22] MEDS: Piperacil/Tazo 4.5 GM Premix 4.5 GM/100 ML BAG IV.SIG SCH ×4 (01:37→20:18)
[2018-05-22] MEDS: Baclofen 10 MG Tablet PO SCH ×3 (01:38→18:06)
[2018-05-22] MEDS: Azithromycin Inj 500 MG in Sodium Chlor 0.9% Inj 250 ML IV.SIG SCH (01:38)
[2018-05-22] MEDS: Sod Chloride 0.9% Inj 1,000 ML IV.CONT SCH (06:36)
[2018-05-22] MEDS: Heparin - SQ 10,000 UNITS/ML Vial SQ SCH ×3 (06:36→23:43)
[2018-05-22] MEDS: Lactobacillus Acidophilus/L. Spores Tablet PO SCH (06:37)
[2018-05-22] MEDS: Levothyroxine 50 MCG Tablet PO SCH (06:37)
[2018-05-22] MEDS: Gabapentin 100 MG Capsule PO SCH ×3 (08:17→18:06)
[2018-05-22] MEDS: Divalproex 500 MG ER Tablet PO SCH ×2 (08:18→20:19)
[2018-05-22] MEDS: Sertraline 100 MG Tablet PO SCH (08:18)
[2018-05-22] MEDS: Calcium Carbonate 500 MG Tablet PO SCH ×2 (08:18→20:19)
[2018-05-22] MEDS: Senna/Docusate Sodium 8.6/50 MG Tablet PO SCH ×2 (08:18→20:19)
--- NOTE | 2018-05-22 09:29 | P.PNPSY ---
Subjective Chief Complaint: PTSD Remarks: Patient seen for follow-up, chart reviewed. Discussion nursing staff reported the patient noted to be yelling at times due to his impairment and hearing but no aggressive behavior cooperative with care eating and drinking well and compliant with medications. Patient was found sitting in hospital bed eating breakfast continues to have difficulty with hearing but denies any shortness of breath or any physical complaints at this time and continues with baseline confusion. Review of Systems All other systems reviewed negative except as stated in HPI Mental Status Examination Appearance: Appropriate Consciousness: Alert, Lethargic (Mildly) Orientation: Person, Place Motor Activity: Other (in wheelchair) Speech: Other (Mostly nodding his head in response) Language: Adequate Fund of Knowledge: Inadequate Attention and Concentration: Easily distracted Memory: Impaired (poor recall of information ) Mood: Appropriate Affect: Blunt Thought Process & Associations: Other ([place]) Thought Content: Other (Disorganized) Hallucination Type: None Delusion Type: Paranoid Suicidal Ideation: No (denies today) Suicidal Plan: No Suicidal Intention: No Homicidal Ideation: No Homicidal Plan: No Homicidal Intention: No Insight: Poor Judgment: Poor Assessment and Plan - Assessment (1) PTSD (post-traumatic stress disorder) Code(s): F43.10 - Post-traumatic stress disorder, unspecified Status: Acute - Plan Plan: Patient continues with compliance with treatment, no agitation or behavioral disturbances although he yells at times but likely secondary to his impairment and hearing. We will continue current treatment. We will continue to monitor mood and behavior. Continue recommendations as per prior medical team. Discharge planning a progress. Justification for Continued Inpatient Stay: At risk of further decompensation a lower level of care.
[2018-05-22] MEDS: levETIRAcetam 250 MG Tablet PO SCH ×2 (09:48→23:44)
--- NOTE | 2018-05-22 11:16 | P.PN ---
Subjective Interval history: Follow up for PNA; patient more awake, sitting up eating breakfast. Very hard of hearing, oriented to self. Dry cough, no chest pain, no shortness of breath. Disoriented, got up in the middle of the night again and voided on the floor. Agitated at times, refused lab work this morning. No fever overnight Physical Exam Vital signs: Vital Signs 05/21/18 15:54 05/21/18 17:49 05/21/18 21:17 Temperature 97.9 F Pulse Rate 62 72 65 Respiratory Rate 12 16 16 Blood Pressure 90/59 L Pulse Oximetry 95 98 05/22/18 05:56 05/22/18 08:17 Temperature 97.2 F L Pulse Rate 63 68 Respiratory Rate 16 16 Blood Pressure 91/55 L Pulse Oximetry 97 92 L Intake & Output 05/21/18 05/22/18 05/22/18 18:59 06:59 18:59 Intake Total 1195 / 1195 1920 / 1920 100 / 100 Balance 1195 / 1195 1920 / 1920 100 / 100 Intake: IV 715 / 715 1200 / 1200 100 / 100 NS Inj 1,000 ML @ 100 mls/hr IV 1000 / 1000 .CONT .Q10H [facility] Rx#:[id number] Zosyn 4.5 GM Premix 4.5 gm In 200 / 200 200 / 200 100 / 100 100 ml @ 200 mls/hr IV.SIG Q6H [facility] Rx#:[id number] Vancomycin Inj 1,500 MG In NS 515 / 515 Inj 500 ML @ 250 mls/hr IV.SIG Q24H [facility] Rx#:[id number] Oral 480 / 480 720 / 720 Other: # Voids 1 # Bowel Movements 1 Narrative: GENERAL: Older male patient, noncooperative with history. Extremely hard of hearing. SKIN: Warm and dry. HEAD: Normocephalic. EYES: Pupils equal and round. No drainage. ENT: No nasal bleeding or discharge. Mucous membranes pink and moist. NECK: Trachea midline. CARDIOVASCULAR: Regular rate and rhythm. RESPIRATORY: No accessory muscle use. Breath sounds somewhat diminished at bases. Breath sounds equal bilaterally. Faint expiratory wheeze. GASTROINTESTINAL: Abdomen soft, non-tender, nondistended. MUSCULOSKELETAL: Extremities without clubbing, cyanosis. No edema noted. NEUROLOGICAL: Awake, oriented to self, very hard of hearing. No focal deficits. Results - Labs CBC & Chem 7: 05/21/18 09:44 05/21/18 09:44 Microbiology 05/20/18 02:32 Sputum - Expectorated Sputum Gram Stain - Final 05/20/18 02:32 Sputum - Expectorated Sputum Sputum Culture - Preliminary Heavy growth normal respiratory buffy at 24 hours Assessment and Plan - Plan HHHs were reconsulted because the patient was becoming lethargic and had an abnormal CXR showing mild bibasilar patchy opacities. ABG showed hypoxia with oxygen saturation of 88% and pO2 57. The patient was subsequently transferred to Med/Psych from the inpatient psych unit. Bilateral lower lobe pneumonia. Poss viral. - CXR shows: Mild patchy consolidation of both lung bases - ABGs showed PO2 57 and saturation 88%. - Duonebs q6h ATC and q4h PRN sob/wheezing - supplemental oxygen titrated to maintain saturation > 92% - Antibiotics: IV Zosyn, Azithromycin, and Vancomycin -sputum culture, normal buffy -Blood pressure noted 90s, no fever. Will repeat lactic acid. Labs today pending -Patient looks little better today, eating more, accepting antibiotics and IV fluids. No fever. Dehydration-improving, eating more. -continue with hydration Lethargy - likely multifactorial secondary to hypothyroidism, dehydration, and pneumonia - thyroid functions rechecked- free T3 remains low at 0.61 - Synthroid was increased to 50 mcg per day - will need to recheck TFTs in 6-8 weeks - rehydration as per above - pneumonia treatment as per above - Ammonia level minimally elevated at 36 - level is lower than on previous checks -some improvement today Thrombocytopenia - possibly medication related, infection. - platelet count 85,000>>77,000. - continue to follow-refused labs this morning Depression/PTSD -per psych management DVT prophylaxis - Heparin 5000 units subq q8h - monitor platelets closely -if plat continue to drop, will stop heparin Refused labs this morning, they will attempt again later today. 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
[2018-05-22] MEDS: Vancomycin Inj 1,500 MG in Sodium Chlor 0.9% Inj 500 ML IV.SIG SCH (16:52)
[2018-05-22] MEDS: Lidocaine 5% Patch T-DERMAL SCH (20:19)
[2018-05-23] MEDS: Piperacil/Tazo 4.5 GM Premix 4.5 GM/100 ML BAG IV.SIG SCH ×2 (01:44→06:32)
[2018-05-23] MEDS: Baclofen 10 MG Tablet PO SCH ×3 (01:44→17:28)
[2018-05-23] MEDS: Heparin - SQ 10,000 UNITS/ML Vial SQ SCH (06:09)
[2018-05-23] MEDS: Lactobacillus Acidophilus/L. Spores Tablet PO SCH (06:10)
[2018-05-23] MEDS: Levothyroxine 50 MCG Tablet PO SCH (06:10)
[2018-05-23] MEDS: Calcium Carbonate 500 MG Tablet PO SCH ×2 (09:27→21:03)
[2018-05-23] MEDS: Gabapentin 100 MG Capsule PO SCH ×3 (09:27→17:28)
[2018-05-23] MEDS: Azithromycin 250 MG Tablet PO SCH (09:27)
[2018-05-23] MEDS: Divalproex 500 MG ER Tablet PO SCH ×2 (09:27→21:03)
[2018-05-23] MEDS: Senna/Docusate Sodium 8.6/50 MG Tablet PO SCH ×2 (09:27→21:04)
[2018-05-23] MEDS: Sertraline 100 MG Tablet PO SCH (09:28)
[2018-05-23] MEDS: levETIRAcetam 250 MG Tablet PO SCH ×2 (09:28→21:03)
[2018-05-23] MEDS ORDERED: Pharmacy Ordered Lab Info OTHER ONE (10:45)
--- NOTE | 2018-05-23 10:52 | P.TTN ---
- Patient Problems Problems: 1. Discharge planning 2. Medication compliance 3. Knowledge deficit 4. Lack of coping skills - Progress Toward Goals Provider Present: Dr. Ade Pina, Dr. Greta Sam Provider Input: 05/23/18: Pt's medical and physical abilities have intermittently declined, prompting relocation of pt to [facility]. Placement continues to be a challenge. 05/18/18: Discuss discharge plan for placement. : pt continues to be placement challenge, facilities continue to be solicited for pt placement. 05/02/18- Patient recieved ETO Wednesday morning, had been expereincing flashback with relation to [place]. [facility]. Patient remains placement issue Nurse(s) Present: Anna RN Nurse Input: 05/18/18: Delusional, paranoid, Med compliant Psychiatric Counselors Present: Krish Wang Jr., [facility], Other Psychiatric Therapist Input: 05/23/18: [facility] for documentation about [facility]'s placement refusals. Blanquita has assigned re-contact and documentation with all viable facilities to establish current placement options. 05/18/18: Pt is unstable and needs more time. Jael 05/02/18- Patient contieus to remain palcement issue. Possible state referral. Nellyetn has exhibited increase in irritability in past few days. Continues to have poor insight. Jael -Patient remains a placment issue, [place] is assiting with advocating for placment with [facility]. Patient has been cooperative, no behavioral issues Group Spec/RT/OT/DYER Present: Nguyen Leblanc, CASPER, MANISHA Mobley, Lionel Benson, OT Group Spec/RT/OT/DYER Input: 05/23/18: Pt is unable to tolerate groups. 05/18/18 : Pt is unable to tolerate the group activities. Pt will receive further encouragement to attend and participate in the group activities. 05/16/18: Pt does not attend groups, impulsivity remains limiting factor. 05/02/18- Does not attend groups. Does not attend groups, inappropriate in groups - Discharge Plan 05/23/18: Pt continues to be placement challenge. Blanquita is directly involved with re-contacting all viable facilities including [place] as possible d/c location. [facility]. 05/16/18: Pt continues to be challenge for placement relative to pt's behaviors. Continue to seek placement with SNF and work with [place] [employer]. Medicaid application is in process of being filed. - Documentation Scribe: Lionel Benson MS, OTR Teaching Recipient: Patient
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
--- NOTE | 2018-05-23 15:50 | P.PNPSY ---
Subjective Chief Complaint: PTSD Remarks: Patient seen and carmichael with medical student Elida, chart reviewed, patient out of bed walking with walker he is alert oriented calm and pleasant today it appears some of the medical issues and metabolic issues have resolved and is got some of his "feisty" back. Today he mentioned wanting to see his girlfriend again. We will attempt to find out where she is at this time. Otherwise patient is continued frustrated with his extended length of stay as our we. We will continue to work to find this and appropriate placement Review of Systems All other systems reviewed negative except as stated in HPI Mental Status Examination Appearance: Appropriate Consciousness: Alert, Lethargic (Mildly) Orientation: Person, Place Motor Activity: Other (in wheelchair) Speech: Rapid, Hesitant Language: Adequate Fund of Knowledge: Inadequate Attention and Concentration: Easily distracted Memory: Impaired (poor recall of information ) Mood: Appropriate Affect: Other (Decreased range and intensity) Thought Process & Associations: Other ([place]) Thought Content: Other (Disorganized) Hallucination Type: None Delusion Type: Paranoid (Improving) Suicidal Ideation: No (denies today) Suicidal Plan: No Suicidal Intention: No Homicidal Ideation: No Homicidal Plan: No Homicidal Intention: No Insight: Poor Judgment: Poor Assessment and Plan - Assessment (1) PTSD (post-traumatic stress disorder) Code(s): F43.10 - Post-traumatic stress disorder, unspecified Status: Acute - Plan Plan: Patient showing marked improvement in his attitude his focus his overall physical condition. Much of the anger and irritability are diminished. He is showing some processing of the stressors related to placement Justification for Continued Inpatient Stay: At this time patient would decompensate a place to a lower level of care Discharge Planning: To be determined
[2018-05-23] MEDS: Amoxicillin/Clavulanate 875/125 MG Tablet PO SCH (21:03)
[2018-05-23] MEDS: Lidocaine 5% Patch T-DERMAL SCH (21:04)
[2018-05-24] MEDS: Baclofen 10 MG Tablet PO SCH ×4 (03:07→18:17)
[2018-05-24] MEDS: Gabapentin 100 MG Capsule PO SCH ×4 (08:22→18:17)
[2018-05-24] MEDS: Levothyroxine 50 MCG Tablet PO SCH (08:22)
[2018-05-24] MEDS: Azithromycin 250 MG Tablet PO SCH (08:22)
[2018-05-24] MEDS: Lactobacillus Acidophilus/L. Spores Tablet PO SCH (08:22)
[2018-05-24] MEDS: Amoxicillin/Clavulanate 875/125 MG Tablet PO SCH ×2 (08:22→22:01)
[2018-05-24] MEDS: Senna/Docusate Sodium 8.6/50 MG Tablet PO SCH ×2 (08:22→22:02)
[2018-05-24] MEDS: Divalproex 500 MG ER Tablet PO SCH ×2 (08:22→22:02)
[2018-05-24] MEDS: Calcium Carbonate 500 MG Tablet PO SCH ×2 (08:22→22:02)
[2018-05-24] MEDS: Sertraline 100 MG Tablet PO SCH (08:23)
[2018-05-24] MEDS: levETIRAcetam 250 MG Tablet PO SCH ×2 (10:29→22:57)
--- NOTE | 2018-05-24 13:56 | P.PN ---
Subjective Interval history: Follow up on patient with PNA. Patient seen and examined. He tells me he is horrible. He says he has walking pneumonia. He says if he could find a quick way to end his life he would do it. He will not appropriately answer any of my ROS questions. Discussed with nursing staff, no adverse events noted. He took all of his medications this morning. Physical Exam Vital signs: Vital Signs 05/23/18 18:02 05/23/18 19:41 Temperature 98.7 F Pulse Rate 88 73 Respiratory Rate 17 18 Blood Pressure 127/77 Pulse Oximetry 94 L 97 Intake & Output 05/23/18 05/24/18 05/24/18 18:59 06:59 18:59 Intake Total 720 / 720 120 / 120 360 / 360 Balance 720 / 720 120 / 120 360 / 360 Intake: Oral 720 / 720 120 / 120 360 / 360 Other: # Voids 2 Date of Last Bowel Movement 05/18/18 05/18/18 Narrative: GENERAL: WDWN male patient, INAD. Poor historian, not very cooperative with history. Extremely hard of hearing. SKIN: Warm and dry. HEENT: Atraumatic. Normocephalic. Pupils equal and round. No drainage. No nasal bleeding or discharge. Mucous membranes pink and moist. NECK: Trachea midline. CARDIOVASCULAR: Regular rate and rhythm. RESPIRATORY: Fair air entry, poor effort. Clear to auscultation with diminished bases. GASTROINTESTINAL: Abdomen soft, non-tender, nondistended. +BS. MUSCULOSKELETAL: Extremities without clubbing, cyanosis. No bilateral lower extremity edema noted. NEUROLOGICAL: Awake and alert. Oriented to self. Very hard of hearing. Able to move all extremities spontaneously. No focal deficits. PSYCHIATRIC: Calm. Judgement and insight poor. Results - Labs CBC & Chem 7: 05/21/18 09:44 05/21/18 09:44 Assessment and Plan - Plan HHHs were reconsulted because the patient was becoming lethargic and had an abnormal CXR showing mild bibasilar patchy opacities. ABG showed hypoxia with oxygen saturation of 88% and pO2 57. The patient was subsequently transferred to Med/Psych from the inpatient psych unit. Bilateral lower lobe pneumonia. Poss viral. CXR shows: Mild patchy consolidation of both lung bases ABGs showed PO2 57 and saturation 88%. - patient improved, now satting 97% on RA - Duonebs q6h ATC and q4h PRN sob/wheezing - supplemental oxygen titrated to maintain saturation > 92% - sputum culture, normal buffy - Treated with Vanco and Zosyn. Now on Augmentin and Azithromycin po. Dehydration-improving, eating more. Treated with IVF -Patient is now drinking and eating more. Lethargy - likely multifactorial secondary to hypothyroidism, dehydration, and pneumonia BUN 34 - thyroid functions rechecked- free T4 remains low at 0.61 - Synthroid was increased to 50 mcg per day - will need to recheck TFTs in 6-8 weeks - Ammonia level minimally elevated at 36 - level is lower than on previous checks - Patient is not lethargic, now agitated. Thrombocytopenia - possibly medication related, infection. - platelet count 85,000>>77,000. - Continues to refuse lab work heparin discontinued - no e/o bleeding Depression/PTSD -per psych management DVT prophylaxis-patient is ambulatory Patient appears medically stable. [facility] will sign off. Please reconsult if needed. Code Status: FULL Discussed Condition With: patient, nursing staff
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
[2018-05-24] MEDS: Ibuprofen 600 MG Tablet PO PRN ×2 (18:09→22:02)
[2018-05-24] MEDS: Lidocaine 5% Patch T-DERMAL SCH (22:57)
[2018-05-25] MEDS: Baclofen 10 MG Tablet PO SCH ×3 (01:46→17:13)
[2018-05-25] MEDS: Senna/Docusate Sodium 8.6/50 MG Tablet PO SCH ×3 (08:36→20:52)
[2018-05-25] MEDS: Amoxicillin/Clavulanate 875/125 MG Tablet PO SCH ×3 (08:36→20:52)
[2018-05-25] MEDS: Divalproex 500 MG ER Tablet PO SCH ×3 (08:36→20:53)
[2018-05-25] MEDS: Levothyroxine 50 MCG Tablet PO SCH ×2 (08:36→08:53)
[2018-05-25] MEDS: Sertraline 100 MG Tablet PO SCH ×2 (08:36→08:55)
[2018-05-25] MEDS: Gabapentin 100 MG Capsule PO SCH ×4 (08:36→17:13)
[2018-05-25] MEDS: Calcium Carbonate 500 MG Tablet PO SCH ×3 (08:36→20:52)
[2018-05-25] MEDS: Lactobacillus Acidophilus/L. Spores Tablet PO SCH ×2 (08:36→08:53)
[2018-05-25] MEDS: levETIRAcetam 250 MG Tablet PO SCH ×2 (10:17→20:53)
--- NOTE | 2018-05-25 12:35 | P.TTN ---
- Patient Problems Problems: 1. Discharge planning 2. Medication compliance 3. Knowledge deficit 4. Lack of coping skills - Progress Toward Goals Provider Present: Dr. Ade Pina, Dr. Greta Sam Provider Input: 05/25: Pt's physical appearance and motivation have declined recently. Level 2 packet to be sent to [facility] ([facility]) with expected placement in near term. Counselor; Juanita, to contact pt's girlfriend and a potential visit. 05/23/18: Pt's medical and physical abilities have intermittently declined, prompting relocation of pt to [facility]. Placement continues to be a challenge. 05/18/18: Discuss discharge plan for placement. : pt continues to be placement challenge, facilities continue to be solicited for pt placement. 05/02/18- Patient recieved ETO Wednesday morning, had been expereincing flashback with relation to [place]. [facility]. Patient remains placement issue Nurse(s) Present: Anna RN Nurse Input: 05/18/18: Delusional, paranoid, Med compliant Psychiatric Counselors Present: Krish Wang Jr., DEMI, Juanita Erazo, [facility], Other Psychiatric Therapist Input: 05/25: Level 2 packet to be sent to [facility] ( [facility]) with expected placement in near term, per Brooke. Counselor; Juanita , to contact pt's girlfriend and a potential visit. 05/23/18: Bl[facility]qu[facility] for [facility] about [facility]'s placement refusals. Blanquita has assigned re-contact and documentation with all viable facilities to establish current placement options. 05/18/18: Pt is unstable and needs more time. Jael 05/02/18- Patient contieus to remain palcement issue. Possible state referral. Marcon has exhibited increase in irritability in past few days. Continues to have poor insight. Jael - Patient remains a placment issue, [facility] is assiting with advocating for placment with [facility]. Patient has been cooperative, no behavioral issues Group Spec/RT/OT/DYER Present: Nguyen Leblanc, GPS, MANISHA Mobley, Lionel Benson, OT Group Spec/RT/OT/DYER Input: 05/25: Pt is unable to tolerate groups. 05/23/18: Pt is unable to tolerate groups. 05/18/18: Pt is unable to tolerate the group activities. Pt will receive further encouragement to attend and participate in the group activities. 05/16/18: Pt does not attend groups, impulsivity remains limiting factor. 05/02/18- Does not attend groups. Does not attend groups, inappropriate in groups - Discharge Plan 05/25: Pt's physical appearance and motivation have declined recently. [facility] in near term. Counselor; Juanita, to contact pt's girlfriend and a potential visit. 05/23/18: Pt continues to be placement challenge. Blanquita is directly involved with re-contacting all viable facilities including [facility] as possible d/c location. Blanquita to f/u with [facility]. 05/16/18: Pt continues to be challenge for placement relative to pt's behaviors. Continue to seek placement with SNF and work with [employer] judiciary. Medicaid application is in process of being filed. - Documentation Scribe: Lionel Benson MS, OTR Teaching Recipient: Patient
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
[2018-05-25] MEDS: Lidocaine 5% Patch T-DERMAL SCH (20:52)
[2018-05-26] MEDS: levETIRAcetam 250 MG Tablet PO SCH ×4 (03:22→22:14)
[2018-05-26] MEDS: Baclofen 10 MG Tablet PO SCH ×2 (03:22→18:43)
[2018-05-26] MEDS: Levothyroxine 50 MCG Tablet PO SCH (06:15)
[2018-05-26] MEDS: Lactobacillus Acidophilus/L. Spores Tablet PO SCH (06:15)
--- NOTE | 2018-05-26 16:18 | P.PNPSY ---
Subjective Chief Complaint: PTSD Remarks: Patient seen in his room with floor staff, chart reviewed, patient compliant medication. Or patient he is somewhat more paranoid frustrated with the entire situation and placement issues. He is in bed with the covers up to his chin. There is some perseveration about his perceived medical problems at this time also. For now continue treatment Review of Systems All other systems reviewed negative except as stated in HPI Mental Status Examination Appearance: Appropriate Consciousness: Alert, Lethargic (Mildly) Orientation: Person, Place Motor Activity: Other (in wheelchair) Speech: Rapid, Hesitant Language: Adequate Fund of Knowledge: Inadequate Attention and Concentration: Easily distracted Memory: Impaired (poor recall of information ) Mood: Appropriate Affect: Other (Decreased range and intensity) Thought Process & Associations: Other ([place]) Thought Content: Other (Disorganized) Hallucination Type: None Delusion Type: Paranoid (Improving) Suicidal Ideation: No (denies today) Suicidal Plan: No Suicidal Intention: No Homicidal Ideation: No Homicidal Plan: No Homicidal Intention: No Insight: Poor Judgment: Poor Assessment and Plan - Assessment (1) PTSD (post-traumatic stress disorder) Code(s): F43.10 - Post-traumatic stress disorder, unspecified Status: Acute - Plan Plan: Today patient somewhat more paranoid depressed and frustrated with the whole situation. For now continue treatment Justification for Continued Inpatient Stay: At this time patient would decompensate a place to a lower level of care Discharge Planning: To be determined
[2018-05-26] MEDS: Amoxicillin/Clavulanate 875/125 MG Tablet PO SCH ×3 (18:42→22:09)
[2018-05-26] MEDS: Divalproex 500 MG ER Tablet PO SCH ×3 (18:42→22:10)
[2018-05-26] MEDS: Gabapentin 100 MG Capsule PO SCH ×2 (18:42)
[2018-05-26] MEDS: Calcium Carbonate 500 MG Tablet PO SCH ×3 (18:42→22:10)
[2018-05-26] MEDS: Sertraline 100 MG Tablet PO SCH (18:43)
[2018-05-26] MEDS: Senna/Docusate Sodium 8.6/50 MG Tablet PO SCH ×3 (18:43→22:15)
[2018-05-26] MEDS: Lidocaine 5% Patch T-DERMAL SCH ×2 (21:03→22:22)
[2018-05-27] MEDS: Baclofen 10 MG Tablet PO SCH ×2 (02:38→10:02)
[2018-05-27] MEDS: Levothyroxine 50 MCG Tablet PO SCH (05:55)
[2018-05-27] MEDS: Lactobacillus Acidophilus/L. Spores Tablet PO SCH (06:03)
[2018-05-27] MEDS: Divalproex 500 MG ER Tablet PO SCH ×2 (10:02→21:37)
[2018-05-27] MEDS: levETIRAcetam 250 MG Tablet PO SCH ×2 (10:03→21:37)
[2018-05-27] MEDS: Calcium Carbonate 500 MG Tablet PO SCH ×2 (10:03→21:38)
[2018-05-27] MEDS: Sertraline 100 MG Tablet PO SCH (10:03)
[2018-05-27] MEDS: Senna/Docusate Sodium 8.6/50 MG Tablet PO SCH ×2 (10:03→21:36)
[2018-05-27] MEDS: Gabapentin 100 MG Capsule PO SCH ×2 (10:03→15:40)
[2018-05-27] MEDS: Amoxicillin/Clavulanate 875/125 MG Tablet PO SCH ×2 (10:03→22:05)
--- NOTE | 2018-05-27 14:12 | P.PNPSY ---
Subjective Chief Complaint: PTSD Remarks: Patient seen in his room with RN Howie and medical student, compliant medications, patient laying quietly in bed focused but somewhat intense today stating that he would be discharged in 3 days. This seems to be some movement towards finding this man an appropriate placement hopefully can be done within the next 5-7 days for now continue treatment Review of Systems All other systems reviewed negative except as stated in HPI Mental Status Examination Appearance: Appropriate Consciousness: Alert, Lethargic (Mildly) Orientation: Person, Place Motor Activity: Other (in wheelchair) Speech: Rapid, Hesitant Language: Adequate Fund of Knowledge: Inadequate Attention and Concentration: Easily distracted Memory: Impaired (poor recall of information ) Mood: Appropriate Affect: Other (Decreased range and intensity) Thought Process & Associations: Other ([place]) Thought Content: Other (Disorganized) Hallucination Type: None Delusion Type: Paranoid (Improving) Suicidal Ideation: No (denies today) Suicidal Plan: No Suicidal Intention: No Homicidal Ideation: No Homicidal Plan: No Homicidal Intention: No Insight: Poor Judgment: Poor Assessment and Plan - Assessment (1) PTSD (post-traumatic stress disorder) Code(s): F43.10 - Post-traumatic stress disorder, unspecified Status: Acute - Plan Plan: Patient remains somewhat delusional and calmer today. Continue to work with placement issues Justification for Continued Inpatient Stay: At this time patient would decompensate a place to a lower level of care Discharge Planning: To be determined
[2018-05-27] MEDS: Lidocaine 5% Patch T-DERMAL SCH (22:05)
[2018-05-28] MEDS: Baclofen 10 MG Tablet PO SCH ×3 (05:52→18:22)
[2018-05-28] MEDS: Levothyroxine 50 MCG Tablet PO SCH ×2 (05:53→08:10)
[2018-05-28] MEDS: Sertraline 100 MG Tablet PO SCH (08:10)
[2018-05-28] MEDS: Senna/Docusate Sodium 8.6/50 MG Tablet PO SCH ×2 (08:10→21:47)
[2018-05-28] MEDS: Lactobacillus Acidophilus/L. Spores Tablet PO SCH (08:11)
[2018-05-28] MEDS: Amoxicillin/Clavulanate 875/125 MG Tablet PO SCH (08:11)
[2018-05-28] MEDS: Gabapentin 100 MG Capsule PO SCH ×3 (08:12→18:22)
[2018-05-28] MEDS: Divalproex 500 MG ER Tablet PO SCH ×2 (08:12→21:47)
[2018-05-28] MEDS: levETIRAcetam 250 MG Tablet PO SCH ×2 (09:42→21:46)
[2018-05-28] MEDS: Calcium Carbonate 500 MG Tablet PO SCH ×2 (10:02→21:47)
--- NOTE | 2018-05-28 18:10 | P.PNPSY ---
Subjective Chief Complaint: PTSD Remarks: Patient was seen and case discussed with nursing. Today patient had an outburst and received an ETO of Zyprexa and Benadryl. Patient threw his tray across the floor and was quite agitated. During this interview he is calm and cooperative. Insight is very poor concerning his behavior and general prognosis. He is childlike Mental Status Examination Appearance: Appropriate Consciousness: Alert, Lethargic (Mildly) Orientation: Person, Place Motor Activity: Other (in wheelchair) Speech: Hesitant Language: Adequate Fund of Knowledge: Poor Attention and Concentration: Easily distracted Memory: Impaired (poor recall of information ) Mood: Appropriate Affect: Other (Decreased range and intensity) Thought Process & Associations: Other ([place]) Thought Content: Derealization, Other (Disorganized) Hallucination Type: None Delusion Type: Paranoid (Improving) Suicidal Ideation: No (denies today) Suicidal Plan: No Suicidal Intention: No Homicidal Ideation: No Homicidal Plan: No Homicidal Intention: No Insight: Poor Judgment: Poor Assessment and Plan - Assessment (1) PTSD (post-traumatic stress disorder) Code(s): F43.10 - Post-traumatic stress disorder, unspecified Status: Acute - Plan Plan: Continue current treatment plan Justification for Continued Inpatient Stay: Patient would decompensate in a less restrictive setting
[2018-05-28] MEDS: Lidocaine 5% Patch T-DERMAL SCH (21:45)
[2018-05-29] MEDS: Baclofen 10 MG Tablet PO SCH ×3 (04:54→17:57)
[2018-05-29] MEDS: Lactobacillus Acidophilus/L. Spores Tablet PO SCH (08:49)
[2018-05-29] MEDS: Divalproex 500 MG ER Tablet PO SCH ×2 (08:50→21:00)
[2018-05-29] MEDS: Sertraline 100 MG Tablet PO SCH (08:50)
[2018-05-29] MEDS: Senna/Docusate Sodium 8.6/50 MG Tablet PO SCH ×2 (08:50→21:00)
[2018-05-29] MEDS: Gabapentin 100 MG Capsule PO SCH ×3 (08:50→17:57)
[2018-05-29] MEDS: Levothyroxine 50 MCG Tablet PO SCH (08:50)
[2018-05-29] MEDS: Calcium Carbonate 500 MG Tablet PO SCH ×2 (08:51→21:00)
[2018-05-29] MEDS: levETIRAcetam 250 MG Tablet PO SCH ×2 (10:13→21:00)
--- NOTE | 2018-05-29 14:02 | P.PNPSY ---
Subjective Chief Complaint: PTSD Remarks: Patient was seen and case discussed with nursing. Patient remains internally stimulated and childlike. Outbursts today. He is compliant with his medications. Spending his time in bed Mental Status Examination Appearance: Appropriate Consciousness: Alert, Lethargic (Mildly) Orientation: Person, Place Motor Activity: Other (in wheelchair) Speech: Hesitant Language: Adequate Fund of Knowledge: Inadequate Attention and Concentration: Inadequate Memory: Impaired (poor recall of information ) Mood: Appropriate Affect: Other (Decreased range and intensity) Thought Process & Associations: Other ([place]) Thought Content: Derealization, Preoccupations, Other (Disorganized) Hallucination Type: None Delusion Type: Paranoid (Improving) Suicidal Ideation: No (denies today) Suicidal Plan: No Suicidal Intention: No Homicidal Ideation: No Homicidal Plan: No Homicidal Intention: No Insight: Poor Judgment: Poor Assessment and Plan - Assessment (1) PTSD (post-traumatic stress disorder) Code(s): F43.10 - Post-traumatic stress disorder, unspecified Status: Acute - Plan Plan: Continue current treatment plan Justification for Continued Inpatient Stay: Patient would decompensate in a less restrictive setting
[2018-05-29] MEDS: Lidocaine 5% Patch T-DERMAL SCH (21:00)
[2018-05-30] MEDS: Baclofen 10 MG Tablet PO SCH ×4 (04:03→17:59)
[2018-05-30] MEDS: Lactobacillus Acidophilus/L. Spores Tablet PO SCH (07:59)
[2018-05-30] MEDS: Gabapentin 100 MG Capsule PO SCH ×4 (07:59→17:59)
[2018-05-30] MEDS: Levothyroxine 50 MCG Tablet PO SCH (07:59)
[2018-05-30] MEDS: Senna/Docusate Sodium 8.6/50 MG Tablet PO SCH ×2 (08:00→20:48)
[2018-05-30] MEDS: Divalproex 500 MG ER Tablet PO SCH ×2 (08:00→20:48)
[2018-05-30] MEDS: Calcium Carbonate 500 MG Tablet PO SCH ×2 (08:00→20:48)
[2018-05-30] MEDS: Sertraline 100 MG Tablet PO SCH (08:00)
[2018-05-30] MEDS: levETIRAcetam 250 MG Tablet PO SCH ×2 (09:12→21:01)
--- NOTE | 2018-05-30 11:18 | P.PNPSY ---
Subjective Chief Complaint: PTSD Remarks: Mr. Peters was found in his room covered from head to toe asleep. When I tried to wake him he responded, "I don't want anything, come back later." Nurses report that he was pleasant and cooperative this morning and took his medications without incident. Review of Systems other (unable to obtain at time of interview) Mental Status Examination Appearance: Appropriate Consciousness: Asleep, Lethargic Orientation: Person, Place Motor Activity: Other (in bed) Speech: Unremarkable Language: Adequate Fund of Knowledge: Inadequate Attention and Concentration: Inadequate Mood: Appropriate, Other (asleep) Affect: Other (Decreased range and intensity) Thought Process & Associations: Other ([place]) Thought Content: Derealization, Preoccupations, Other (Disorganized) Hallucination Type: None Suicidal Ideation: No (denies today) Suicidal Plan: No Suicidal Intention: No Homicidal Ideation: No Homicidal Plan: No Homicidal Intention: No Insight: Poor Judgment: Poor Assessment and Plan - Assessment (1) PTSD (post-traumatic stress disorder) Code(s): F43.10 - Post-traumatic stress disorder, unspecified Status: Acute - Plan Plan: Mr. Peters was sleeping at time of visit, when I tried to wake him he responded , "I don't want anything, come back later." Will round on patient this afternoon with attending Dr. Pina. Continue current treatment plan.
--- NOTE | 2018-05-30 15:02 | P.PNPSY ---
Subjective Chief Complaint: PTSD Remarks: Patient seen in his room. 1 with nurse Howie and medical student Leonel, chart reviewed, patient compliant medication. Patient had episode of agitation earlier today was able to be escalated but also given a milligram of Ativan. At this time he is not napping with his head on the covers that he is arousable but not responding to be verbally with an angry glands. For now continue treatment Review of Systems All other systems reviewed negative except as stated in HPI Mental Status Examination Appearance: Appropriate Consciousness: Asleep, Lethargic Orientation: Person, Place Motor Activity: Other (in bed) Speech: Unremarkable Language: Adequate Fund of Knowledge: Inadequate Attention and Concentration: Inadequate Memory: Impaired (poor recall of information ) Mood: Appropriate, Other (asleep) Affect: Other (Decreased range and intensity) Thought Process & Associations: Other ([place]) Thought Content: Derealization, Preoccupations, Other (Disorganized) Hallucination Type: None Delusion Type: Paranoid (Improving) Suicidal Ideation: No (denies today) Suicidal Plan: No Suicidal Intention: No Homicidal Ideation: No Homicidal Plan: No Homicidal Intention: No Insight: Poor Judgment: Poor Assessment and Plan - Assessment (1) PTSD (post-traumatic stress disorder) Code(s): F43.10 - Post-traumatic stress disorder, unspecified Status: Acute - Plan Plan: Patient continues somewhat depressed and angry over delays and frustrations over placement. However he is overall coping fairly well with that Justification for Continued Inpatient Stay: At this time patient would decompensate a place to a lower level of care Discharge Planning: Continue to work with placement issues
[2018-05-30] MEDS: Lidocaine 5% Patch T-DERMAL SCH (20:48)
[2018-05-31] MEDS: Baclofen 10 MG Tablet PO SCH ×3 (02:03→18:28)
[2018-05-31] MEDS: Lactobacillus Acidophilus/L. Spores Tablet PO SCH (06:28)
[2018-05-31] MEDS: Levothyroxine 50 MCG Tablet PO SCH (06:28)
[2018-05-31] MEDS: Divalproex 500 MG ER Tablet PO SCH ×2 (10:05→21:39)
[2018-05-31] MEDS: Senna/Docusate Sodium 8.6/50 MG Tablet PO SCH ×2 (10:05→21:34)
[2018-05-31] MEDS: levETIRAcetam 250 MG Tablet PO SCH ×2 (10:05→21:35)
[2018-05-31] MEDS: Gabapentin 100 MG Capsule PO SCH ×3 (10:05→18:28)
[2018-05-31] MEDS: Sertraline 100 MG Tablet PO SCH (10:05)
[2018-05-31] MEDS: Calcium Carbonate 500 MG Tablet PO SCH ×2 (10:16→21:35)
--- NOTE | 2018-05-31 10:39 | P.PNPSY ---
Subjective Chief Complaint: PTSD Remarks: Mr. Peters is found awake in his room, lying in bed. He appears pleasant, cooperative, and alert this morning. He is c/o back pain but describes his mood as "alright" and states that he is ready for his meds and food. He is requesting to go outside for a cigarette and states "the nurse told I could if Dr. Aviles gave me a note to go outside." Nurses report that he slept throughout the night without incident. Continue current treatment plan for now. Will report to Dr. Pina and ama with him this afternoon on patient. Review of Systems All other systems reviewed negative except as stated in HPI Mental Status Examination Appearance: Appropriate Consciousness: Alert, Asleep Orientation: Person, Place Motor Activity: Other (in bed) Speech: Unremarkable (normal rate, rhythm, tone, and volume) Language: Adequate Fund of Knowledge: Adequate Attention and Concentration: Adequate Memory: Impaired (poor recall of information ) Mood: Appropriate ("alright"), Good Affect: Appropriate, Other (Decreased range and intensity) Thought Process & Associations: Intact, Logical, Linear, Other ([place]) Thought Content: Appropriate, Derealization, Preoccupations, Other (Disorganized ) Hallucination Type: None Delusion Type: Paranoid (Improving) Suicidal Ideation: No (denies today) Suicidal Plan: No Suicidal Intention: No Homicidal Ideation: No Homicidal Plan: No Homicidal Intention: No Insight: Fair Judgment: Poor Assessment and Plan - Assessment (1) PTSD (post-traumatic stress disorder) Code(s): F43.10 - Post-traumatic stress disorder, unspecified Status: Acute - Plan Plan: On my psychiatric evaluation, Mr. Peters appears more pleasant and cooperative than he has been during previous visits. He is c/o back pain and is requesting his meds and food. He is alert, linear thought process, logical thought content , insight fair, no hallucinations/delusions reported at this time. Notified Nurse Gloria that patient is awake and ready for meds and food. Continue current treatment plan. Will report to attending Dr. Pina and ama on patient this afternoon with him.
--- NOTE | 2018-05-31 15:34 | P.PNPSY ---
Subjective Chief Complaint: PTSD Remarks: Patient is seen in his room on 4 E., he is somewhat quite vigilant today but calm and cooperative with us. He is aware of the fact that he would be transferred to the 2500 unit. He continues to cope with delays and placement. Staff and treatment team are saying that they are working diligently on finding an appropriate placement Review of Systems All other systems reviewed negative except as stated in HPI Mental Status Examination Appearance: Appropriate Consciousness: Alert, Asleep Orientation: Person, Place Motor Activity: Other (in bed) Speech: Unremarkable (normal rate, rhythm, tone, and volume) Language: Adequate Fund of Knowledge: Adequate Attention and Concentration: Adequate Memory: Impaired (poor recall of information ) Mood: Appropriate ("alright"), Good Affect: Appropriate, Other (Decreased range and intensity) Thought Process & Associations: Intact, Logical, Linear, Other ([place]) Thought Content: Appropriate, Derealization, Preoccupations, Other (Disorganized ) Hallucination Type: None Delusion Type: Paranoid (Improving) Suicidal Ideation: No (denies today) Suicidal Plan: No Suicidal Intention: No Homicidal Ideation: No Homicidal Plan: No Homicidal Intention: No Insight: Fair Judgment: Poor Assessment and Plan - Assessment (1) PTSD (post-traumatic stress disorder) Code(s): F43.10 - Post-traumatic stress disorder, unspecified Status: Acute - Plan Plan: Patient remains somewhat vigilant mildly paranoid though coping with delays and placement, compliant medication Justification for Continued Inpatient Stay: At this time patient would decompensate a place to a lower level of care Discharge Planning: Continue to work on discharge placement is remaining problematic
[2018-05-31] MEDS: Lidocaine 5% Patch T-DERMAL SCH (21:34)
[2018-06-01] MEDS: Baclofen 10 MG Tablet PO SCH ×3 (03:01→17:33)
[2018-06-01] MEDS: Levothyroxine 50 MCG Tablet PO SCH (06:05)
[2018-06-01] MEDS: Lactobacillus Acidophilus/L. Spores Tablet PO SCH (06:05)
[2018-06-01] MEDS: Senna/Docusate Sodium 8.6/50 MG Tablet PO SCH ×2 (09:21→22:34)
[2018-06-01] MEDS: Divalproex 500 MG ER Tablet PO SCH ×2 (09:21→21:19)
[2018-06-01] MEDS: Sertraline 100 MG Tablet PO SCH (09:22)
[2018-06-01] MEDS: Calcium Carbonate 500 MG Tablet PO SCH ×2 (09:22→21:19)
[2018-06-01] MEDS: levETIRAcetam 250 MG Tablet PO SCH ×2 (09:22→21:20)
[2018-06-01] MEDS: Gabapentin 100 MG Capsule PO SCH ×3 (09:22→17:33)
--- NOTE | 2018-06-01 13:05 | P.PNPSY ---
Subjective Chief Complaint: PTSD Remarks: Patient seen in his room with floor staff, patient napping somewhat irritable when aroused and vigilant. Similar to his being woken out of his sleep in the past. Continue to work with placement issues hopefully will be successful soon otherwise continue treatment no change Review of Systems All other systems reviewed negative except as stated in HPI Mental Status Examination Appearance: Appropriate Consciousness: Alert, Asleep Orientation: Person, Place Motor Activity: Other (in bed) Speech: Unremarkable (normal rate, rhythm, tone, and volume) Language: Adequate Fund of Knowledge: Adequate Attention and Concentration: Adequate Memory: Impaired (poor recall of information ) Mood: Appropriate ("alright"), Good Affect: Appropriate, Other (Decreased range and intensity) Thought Process & Associations: Intact, Logical, Linear, Other ([place]) Thought Content: Appropriate, Derealization, Preoccupations, Other (Disorganized ) Hallucination Type: None Delusion Type: Paranoid (Improving) Suicidal Ideation: No (denies today) Suicidal Plan: No Suicidal Intention: No Homicidal Ideation: No Homicidal Plan: No Homicidal Intention: No Insight: Fair Judgment: Poor Assessment and Plan - Assessment (1) PTSD (post-traumatic stress disorder) Code(s): F43.10 - Post-traumatic stress disorder, unspecified Status: Acute - Plan Plan: Patient continues somewhat depressed and frustrated with delays and placement though is coping. At times he still is showing some behaviors related to his PTSD Justification for Continued Inpatient Stay: At this time patient would decompensate a place to a lower level of care Discharge Planning: To be determined
[2018-06-01] MEDS: Lidocaine 5% Patch T-DERMAL SCH (21:20)
[2018-06-02] MEDS: Baclofen 10 MG Tablet PO SCH ×3 (04:52→18:24)
[2018-06-02] MEDS: Levothyroxine 50 MCG Tablet PO SCH (05:18)
[2018-06-02] MEDS: Lactobacillus Acidophilus/L. Spores Tablet PO SCH (08:48)
[2018-06-02] MEDS: Sertraline 100 MG Tablet PO SCH (08:48)
[2018-06-02] MEDS: Calcium Carbonate 500 MG Tablet PO SCH ×2 (08:48→21:33)
[2018-06-02] MEDS: Senna/Docusate Sodium 8.6/50 MG Tablet PO SCH ×2 (08:49→21:33)
[2018-06-02] MEDS: Gabapentin 100 MG Capsule PO SCH ×3 (08:49→18:24)
[2018-06-02] MEDS: Divalproex 500 MG ER Tablet PO SCH ×2 (08:49→21:33)
[2018-06-02] MEDS ORDERED: Sod Chloride 0.9% Inj 1,000 ML IV.SIG SCH (10:00)
--- NOTE | 2018-06-02 11:12 | P.DSPSY ---
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 He was discharged late in the afternoon and appears to be 03/15 to go to [facility]. It appears when he got to that facility he became somewhat abstinent about not getting out of the vehicle. Becoming more more angry and belligerent leading to him being returned here to [facility]. Patient was seen by the nurse practitioner was felt to be a failed discharge though perhaps there is some behavioral issues also involved. In any event felt at that late in the afternoon that any attempt to transfer him back to the [facility] will been disastrous. Thus we felt was the safest option at that time to rehospitalize him admitted him the psychiatric unit to continue to work on placement issues and to perhaps adjust the discharge plans to better achieve success in the discharge. Patient seen by me today. He remains somewhat feisty but overall cooperative. It appears his main concern was the smoking policy at [facility]. We will reassure them that smoking was allowing outside of the buildings. This seemed to appease him. At this time I feel we need to continue this admission to verify that [facility] will allow him another chance. Or we need to find him another placement. At this time is willing to stay voluntarily to allow us the opportunity. Thus I will allow him to remain on a voluntary status at this point in time. We will continue all his existing medications. And consultations. He denies suicidality homicidality. He does deny voices at this time. Thus we will continue patient continue with his admitting diagnosis also Tobacco Use In Past 30 Days: Yes How Often Do You Have a Drink Containing Alcohol: Never Hospital Course: Patient had episode of hypotension bradycardia altered mental status. We discussed this with the medicine service and felt that patient's condition considering his history of epilepsy. Considering the fact that he may be having some type of seizure issues developing it was felt that he should be transferred to the medicine floor for further evaluation monitoring and treatment. Thus patient be discharged from [facility] admitted to the medical floor. Dr. Menjivar the hospitalist has agreed to the transfer. - Discharge Discharge Date: 06/02/18 - Discharge Diagnosis (1) Post-traumatic stress disorder Code(s): F43.10 - Post-traumatic stress disorder, unspecified Status: Acute Discharge Disposition: Admit [facility] - Discharge Instructions Discharge Diet: Regular Diet Activities You Can Perform: See Additionl Instruction (Per med treatment team) - Discharge Time > 30 minutes Mental Status Examination Appearance: Appropriate Consciousness: Alert, Asleep Orientation: Person, Place Motor Activity: Other (in bed) Speech: Unremarkable (normal rate, rhythm, tone, and volume) Language: Adequate Fund of Knowledge: Adequate Attention and Concentration: Adequate Memory: Impaired (poor recall of information ) Mood: Appropriate ("alright"), Good Affect: Appropriate, Other (Decreased range and intensity) Thought Process & Associations: Intact, Logical, Linear, Other ([place]) Thought Content: Appropriate, Derealization, Preoccupations, Other (Disorganized ) Hallucination Type: None Delusion Type: Paranoid (Improving) Suicidal Ideation: No (denies today) Suicidal Plan: No Suicidal Intention: No Homicidal Ideation: No Homicidal Plan: No Homicidal Intention: No Insight: Fair Judgment: Poor Discharge/Advance Care Plan - Results Vital Signs: Last Vital Signs Temp 97.9 F 06/02/18 06:35 Pulse 96 H 06/02/18 06:10 Resp 16 06/02/18 06:35 BP 84/60 L 06/02/18 06:10 Pulse Ox 93 L 06/02/18 06:35 Lab Results: Laboratory Results Hemoglobin A1c 4.8 % (4.3-6.0) 03/17/18 08:08 Triglycerides 167 mg/dL (42-150) H 03/17/18 08:08 Cholesterol 208 mg/dL (120-200) H 03/17/18 08:08 LDL Cholesterol, Calc 133 mg/dL (0-99) H 03/17/18 08:08 HDL Cholesterol 41.7 mg/dL (40.0-60.0) 03/17/18 08:08 TSH 1.780 uIU/mL (0.358-3.740) 05/19/18 21:27 Free T4 0.61 ng/dL (0.76-1.46) L 05/19/18 21:27 Valproic Acid 72 mcg/mL (50-100) 04/30/18 17:35 Summary of Procedures: None done Imaging: ITS Impressions Hip X-Ray 04/22/18 00:00 CONCLUSION: Negative for fracture or dislocation. Followup in 7-10 days is suggested if symptoms persist. Chest X-Ray 05/19/18 00:00 CONCLUSION: Mild patchy consolidation of both lung bases. Pending Results: None - Medications Number of antipsychotic medications at discharge: 0 - Discharge Care Plan Goals to Promote Your Health: * To prevent worsening of your condition and complications * To maintain your health at the optimal level Directions to Meet Your Goals: Take your medications as prescribed Follow your dietary instruction Follow activity as directed Keep your appointments as scheduled Take your immunizations and boosters as scheduled If your symptoms worsen call your PCP, if no PCP go to Urgent Care Center or Emergency Room For 08/03 questions related to your inpatient stay or results of tests pending at discharge, please contact Dr. Eder Pina MD at Smoking is Dangerous to Your Health. Avoid second hand smoking
[2018-06-02] MEDS: levETIRAcetam 250 MG Tablet PO SCH (14:12)
[2018-06-02 15:57] LABS: Baso % (Auto) 0.2 % (0.0-2.0); Eos % (Auto) 0.4 % (0.0-4.0); Hematocrit 33.3 % (39.0-51.0); Hemoglobin 11.3 gm/dL (13.0-17.0); Lymph % (Auto) 18.5 % (9.0-44.0); Mean Corpuscular HGB Conc 33.9 % (32.0-36.0); Mean Corpuscular Hemoglobin 29.7 pg (27.0-34.0); Mean Corpuscular Volume 87.7 fL (80.0-100.0); Mean Platelet Volume 7.9 fL (7.0-11.0); Mono # (Auto) 1.4 th/mm3 (0.0-0.9); Mono % (Auto) 13.4 % (0.0-8.0); Neut # (Auto) 7.2 th/mm3 (1.8-7.7); Neut % (Auto) 67.5 % (16.0-70.0); Platelet Count 107 th/mm3 (150-450); Red Blood Count 3.79 mil/mm3 (4.50-5.90); Red Cell Distribution Width 13.7 % (11.6-17.2); White Blood Count 10.7 th/mm3 (4.0-11.0)
--- NOTE | 2018-06-02 16:13 | P.PN ---
Subjective Interval history: Hospitalist service was re-consulted due to seizure activities as well as hypotension. I went to see the patient. He is resting in bed, does not talk much. Could not provide much history. RN states that patient had multiple episodes of absent seizures. His BP was 84/60 as well. I have discussed with Psychiatry attending and RN. I advised that patient should be discharged from Psychiatry unit and admitted to the medical floor for IV fluid and seizure evaluation and management. Patient was instead transferred from psychiatry. Physical Exam Vital signs: Vital Signs 06/01/18 17:42 06/01/18 18:14 06/02/18 06:10 Temperature 99.1 F 99.1 F Pulse Rate 138 H 138 H 96 H Respiratory Rate 17 17 16 Blood Pressure 123/86 123/86 84/60 L Pulse Oximetry 100 93 L 06/02/18 06:35 06/02/18 13:17 Temperature 97.9 F 97.3 F L Pulse Rate 71 Respiratory Rate 16 22 Blood Pressure 99/60 L Pulse Oximetry 93 L 98 Intake & Output 06/01/18 06/02/18 06/02/18 18:59 06:59 18:59 Intake Total 720 / 720 0 / 0 0 / 0 Balance 720 / 720 0 / 0 0 / 0 Weight 87 kg Intake: Oral 720 / 720 0 / 0 0 / 0 Other: # Voids 1 Date of Last Bowel Movement 05/29/18 # Bowel Movements 1 Narrative: GENERAL: Resting in bed. does not talk much. No acute distress. SKIN: Warm and dry. HEAD: Normocephalic. EYES: No scleral icterus. No injection or drainage. NECK: Supple, trachea midline. No JVD or lymphadenopathy. CARDIOVASCULAR: Regular rate and rhythm without murmurs, gallops, or rubs. RESPIRATORY: Breath sounds equal bilaterally. No accessory muscle use. GASTROINTESTINAL: Abdomen soft, non-tender, nondistended. MUSCULOSKELETAL: No cyanosis, or edema. BACK: Nontender without obvious deformity. No CVA tenderness. Results - Labs CBC & Chem 7: 06/02/18 15:16 06/02/18 15:16 Assessment and Plan - Plan Mr. Peters is a 62 year old male with a history of Seizure disorder, hyperlipidemia, depression/dementia who was under the care of psychiatry team. Hospitalist service was re-consulted because patient's heart rate was in the bradycardic range and his BP dropped to 84/60. Additionally, patient also has been having what psychiatry RN describes as absent seizures. Hypotension -Will initiate 1-2L of NS bolus then NS @ 100cc/hour. -Repeat BP is improved to MAP 73. Seizure disorder - Will continue Keppra. If seizure continues to occur, we will consider Neurology consultation as well as adding anti-sz meds. - Provide seizure pre-cautions. - Increase Keppra 500mg BID. Continue Depakote 500mg BID. Lorazepam for acute seizure. Hyperlipidemia Hypothyroidism - Continue Lipitor, Levothyroxine Full code. Lovenox.
[2018-06-02 16:20] LABS: Calcium 9.2 mg/dL (8.5-10.1); Carbon Dioxide 29.2 meq/L (21.0-32.0); Potassium 3.8 meq/L (3.5-5.1)
[2018-06-02] MEDS: Sod Chloride 0.9% Inj 1,000 ML IV.CONT SCH (18:20)
[2018-06-02] MEDS: Enoxaparin Inj 40 MG/0.4 ML Syringe SQ SCH (18:24)
[2018-06-02] MEDS: levETIRAcetam 500 MG Tablet PO SCH (18:24)
[2018-06-02] MEDS: Lidocaine 5% Patch T-DERMAL SCH (21:35)
[2018-06-03] MEDS: Baclofen 10 MG Tablet PO SCH ×4 (02:11→18:20)
[2018-06-03] MEDS: Sod Chloride 0.9% Inj 1,000 ML IV.CONT SCH ×2 (04:20→14:29)
[2018-06-03] MEDS: Levothyroxine 50 MCG Tablet PO SCH (05:33)
[2018-06-03] MEDS: levETIRAcetam 500 MG Tablet PO SCH (05:33)
[2018-06-03] MEDS: Lactobacillus Acidophilus/L. Spores Tablet PO SCH (06:40)
[2018-06-03] MEDS: Senna/Docusate Sodium 8.6/50 MG Tablet PO SCH ×2 (09:50→20:18)
[2018-06-03] MEDS: Divalproex 500 MG ER Tablet PO SCH ×2 (09:50→20:18)
[2018-06-03] MEDS: Calcium Carbonate 500 MG Tablet PO SCH ×2 (09:50→20:18)
[2018-06-03] MEDS: Sertraline 100 MG Tablet PO SCH (09:50)
[2018-06-03] MEDS: Enoxaparin Inj 40 MG/0.4 ML Syringe SQ SCH (09:51)
[2018-06-03] MEDS: Gabapentin 100 MG Capsule PO SCH ×3 (09:53→18:20)
[2018-06-03 10:55] LABS: Carbon Dioxide 27.2 meq/L (21.0-32.0); Potassium 4.2 meq/L (3.5-5.1)
--- NOTE | 2018-06-03 14:30 | P.PNIM ---
Subjective Interval history: Follow-up seizure activities, and hypotension. Patient seen and examined laying in bed sleepy/sedated responds to verbal command very slow identifies name and date of , denies any pain or shortness of breath. Denies any headache or dizziness, denies any fever or chills. Drifting to sleep with conversation. Patient laying in bed comfortably, in no apparent distress. Nurse in the room for patient care. Physical Exam Vital signs: Vital Signs 06/02/18 16:46 06/02/18 20:00 06/03/18 00:00 Temperature 97.2 F L 97.6 F 97.7 F Pulse Rate 90 74 88 Respiratory Rate 16 18 18 Blood Pressure 113/72 115/63 107/68 Pulse Oximetry 97 99 94 L 06/03/18 02:42 06/03/18 04:00 06/03/18 08:00 Temperature 97.9 F 99.0 F Pulse Rate 118 H 94 H Respiratory Rate 17 18 20 Blood Pressure 159/73 H 117/65 Pulse Oximetry 95 94 L 06/03/18 12:40 Temperature 100 F H Pulse Rate 88 Respiratory Rate 18 Blood Pressure 107/56 L Pulse Oximetry 93 L Intake & Output 06/02/18 06/03/18 06/03/18 18:59 06:59 18:59 Intake Total 0 / 0 1000 / 1000 Output Total 1 / 1 Balance -1 / -1 1000 / 1000 Weight 88.1 kg Intake: IV 1000 / 1000 NS Inj 1,000 ML @ 100 mls/hr IV 1000 / 1000 .CONT .Q10H [facility] Rx#:[id number] Oral 0 / 0 Oral Supplement 0 / 0 Output: Urine 1 / Other: # Voids 1 # Incontinent Voids 2 # Urine Diapers 1 Date of Last Bowel Movement 06/02/18 06/02/18 # Bowel Movements 1 Narrative: GENERAL: Well-developed, well-nourished, older looking than his age, male, sleepy in no apparent distress SKIN: Warm and dry. HEAD: Atraumatic. Normocephalic. EYES: Pupils equal and round. No scleral icterus. No injection or drainage. ENT: No nasal bleeding or discharge. Mucous membranes pink and moist. NECK: Trachea midline. No JVD. CARDIOVASCULAR: Regular rate and rhythm. RESPIRATORY: No accessory muscle use. Clear to auscultation. Breath sounds equal bilaterally. GASTROINTESTINAL: Abdomen obese soft, non-tender, nondistended. Hepatic and splenic margins not palpable. MUSCULOSKELETAL: Extremities without clubbing, cyanosis, or edema. No obvious deformities. NEUROLOGICAL: Awake and alert oriented to self, and birthday. Follows commands. Motor grossly within normal limits. Generalized weakness moving all 4 extremities normal speech. PSYCHIATRIC: Flat mood and affect; sleepy, with confusion Results - Labs CBC & Chem 7: 06/02/18 15:16 06/03/18 10:14 Laboratory Results - last 24 hr 06/02/18 06/02/18 06/03/18 15:16 15:16 10:14 WBC 10.7 RBC 3.79 L Hgb 11.3 L Hct 33.3 L MCV 87.7 MCH 29.7 MCHC 33.9 RDW 13.7 Plt Count 107 L D MPV 7.9 Neut % (Auto) 67.5 Lymph % (Auto) 18.5 [place] % (Auto) 13.4 H Eos % (Auto) 0.4 Baso % (Auto) 0.2 Neut # (Auto) 7.2 Lymph # (Auto) 2.0 [place] # (Auto) 1.4 H Eos # (Auto) 0.0 Baso # (Auto) 0.0 WBC Differential . Differential Comment Auto diff final Sodium 138 138 Potassium 3.8 4.2 Chloride 101 103 Carbon Dioxide 29.2 27.2 Anion Gap 8 8 BUN 32 H 34 H Creatinine 1.64 H 1.18 Estimated GFR 43 L 62 L Random Glucose 79 105 Calcium 9.2 9.0 Assessment and Plan - Plan Mr. Peters is a 62 year old male with a history of Seizure disorder, hyperlipidemia, depression/dementia who was under the care of psychiatry team. Hospitalist service was re-consulted because patient's heart rate was in the bradycardic range and his BP dropped to 84/60. Additionally, patient also has been having what psychiatry RN describes as absent seizures. Hypotension Blood pressure improving -Continue NS bolus then NS @ 100cc/hour x 2 L -Repeat BP is improved to MAP 73. Seizure disorder -Recently Keppra and Depakote dose increased, continue gabapentin - Neurology consultation, appreciate recommendation: Continue Depakote and Keppra, noted gabapentin with Anticonvulsant Agent. Recommended no driving operating any heavy machinery or dangerous machinery, swimming alone for at least 6 months of being seizure, spell free. - Provide seizure fall pre-cautions. -Monitor Keppra level and Depakote level Follow EEG and brain imaging Hyperlipidemia Hypothyroidism - Continue Lipitor, Levothyroxine -Monitor TSH, lipid and LFT PTSD/acute psychosis Management by psychiatric team Patient may transfer to medical psych floor when bed available Full code. Lovenox. Code Status: Full code Discussed Condition With: Patient, nurse, MDR Dr. Zendejas Discharge Planning: Patient may be transferred to the medical psych floor when bed available
--- NOTE | 2018-06-03 15:19 | P.CONNEU ---
History of Present Illness Service: Neurology Primary Care Provider: [facility] Chief Complaint: Seizure History of Present Illness: 62-year-old male admitted to the psychiatric unit for PTSD, severe depression. Followed by medical service there. Some point he had a questionable seizure was found to be hypotensive at that time as well. He is on Keppra, Depakote and gabapentin. After this event medical service has increased the dose these medications. No known further episodes. Patient is a poor historian. He is on antipsychotic treatment with Seroquel. Review of Systems All other systems reviewed negative except as stated in HPI [facility] - History History Provided By: Medical Record - Medical History Medical History: Medical History (Last Reviewed 05/26/18 @ 08:09 by Quinn Kelly PT) Cirrhosis PTSD (post-traumatic stress disorder) Pancreatitis, chronic Seizure - Surgical History Surgical History: Surgical History (Last Reviewed 05/26/18 @ 08:09 by Quinn Kelly PT) History of hip surgery - Tobacco History Second Hand Smoke Exposure: No Tobacco Use In Past 30 Days: Yes Smoking Status: Current every day smoker Tobacco Type: Cigarettes - Alcohol History How Often Do You Have a Drink Containing Alcohol: Never - Substance Use History Substance History: No History of Abuse - Travel History Recent Travel in the [place] Within the Last 8 Weeks: No Recent Travel Out of the Country Within the Last 8 Weeks: No - Immunization History Tetanus Immunization: Unable to Assess Hx Influenza Vaccine This Season: Yes Medications and Allergies Active Medications: Active Medications Al Hydrox/Mg Hydrox/Simethicone (Mag-Al Plus Susp Liq) 30 ml PO Q6H PRN PRN Reason: DYSPEPSIA Al Hydroxide/Mg Hydroxide (Milk Of Magnesia Liq) 30 ml PO Q12H PRN PRN Reason: Mild Constipation Albuterol (Duoneb Neb (Prn)) 1 ampul NEB Q4HR NEB PRN PRN Reason: SOB/WHEEZING Last Admin: 05/19/18 22:01 Dose: 1 ampul Atorvastatin Calcium (Lipitor) 10 mg PO HS [facility] Last Admin: 06/02/18 21:33 Dose: 10 mg Bacitracin (Baciguent Oint) 1 applicatio TOPICAL BID [facility] Last Admin: 06/03/18 14:34 Dose: 1 applicatio Baclofen (Lioresal) 15 mg PO Q8H [facility] Last Admin: 06/03/18 10:03 Dose: 15 mg Bisacodyl (Dulcolax Supp) 10 mg RECTAL DAILY PRN PRN Reason: SEVERE CONSITIPATION Chlorpromazine HCl (Thorazine) 100 mg PO DAILY@ [facility] Last Admin: 03/26/18 13:54 Dose: Not Given Chlorpromazine HCl (Thorazine) 50 mg PO DAILY@ [facility] Last Admin: 03/26/18 09:03 Dose: Not Given Diphenhydramine HCl (Benadryl) 50 mg PO HS PRN PRN Reason: INSOMNIA Last Admin: 05/29/18 21:00 Dose: 50 mg Divalproex Sodium (Depakote Er) 500 mg PO BID [facility] Last Admin: 06/03/18 09:50 Dose: 500 mg Enoxaparin Sodium (Lovenox Inj) 40 mg SQ DAILY [facility] Last Admin: 06/03/18 09:51 Dose: 40 mg Gabapentin (Neurontin) 100 mg PO TID [facility] Last Admin: 06/03/18 14:29 Dose: 100 mg Hydroxyzine HCl (Atarax) 50 mg PO Q6H PRN PRN Reason: ANXIETY Last Admin: 05/30/18 08:00 Dose: 50 mg Sodium Chloride (Ns Inj) 1,000 mls @ 100 mls/hr IV.CONT .Q10H [facility] Last Admin: 06/03/18 14:29 Dose: 100 mls/hr Lactobacillus Acidophilus (Lactinex) 1 tab PO DAILYAC [facility] Last Admin: 06/03/18 06:40 Dose: 1 tab Lactulose (Lactulose Liq) 30 ml PO DAILY PRN PRN Reason: SEVERE CONSITIPATION Levothyroxine Sodium (Synthroid) 50 mcg PO DAILY@0600 [facility] Last Admin: 06/03/18 05:33 Dose: 50 mcg Lidocaine HCl (Lidoderm 5% Patch.12 Hr) 1 patch T-DERMAL DAILY@1999 [facility] Last Admin: 06/02/18 21:35 Dose: 1 patch Lorazepam (Ativan Inj) 1 mg IV.PUSH Q15M PRN PRN Reason: Seizure Miscellaneous (Pill Splitter) 1 each OTHER UNSCH PRN PRN Reason: SEE LABEL COMMENTS Multivitamins (Theragran) 1 tab PO DAILY [facility] Last Admin: 06/03/18 09:50 Dose: 1 tab Nicotine (Habitrol 21 Mg Patch.24 Hr) 1 patch T-DERMAL DAILY [facility] Last Admin: 06/03/18 09:52 Dose: 1 patch Patch Removal (Remove Old Patch) 1 each T-DERMAL DAILY@0800 [facility] Last Admin: 06/03/18 09:50 Dose: 1 each Quetiapine Fumarate (Seroquel) 300 mg PO HS [facility] Last Admin: 06/02/18 21:33 Dose: 300 mg Quetiapine Fumarate (Seroquel) 200 mg PO BID@0900,1300 [facility] Last Admin: 06/03/18 10:02 Dose: 200 mg Senna/Docusate Sodium (Leanne-Colace) 1 tab PO BID [facility] Last Admin: 06/03/18 09:50 Dose: 1 tab Sennosides (Senokot) 17.2 mg PO Q12H PRN PRN Reason: Moderate Constipation Last Admin: 04/28/18 08:24 Dose: 17.2 mg Sertraline HCl (Zoloft) 200 mg PO DAILY [facility] Last Admin: 06/03/18 09:50 Dose: 200 mg Allergies Allergy/AdvReac Type Severity Reaction Status Date / Time No Known Allergies Allergy Uncoded 11/13/16 20:22 Exam Vital signs: Vital Signs 06/02/18 16:46 06/02/18 20:00 06/03/18 00:00 Temperature 97.2 F L 97.6 F 97.7 F Pulse Rate 90 74 88 Respiratory Rate 16 18 18 Blood Pressure 113/72 115/63 107/68 Pulse Oximetry 97 99 94 L 06/03/18 02:42 06/03/18 04:00 06/03/18 08:00 Temperature 97.9 F 99.0 F Pulse Rate 118 H 94 H Respiratory Rate 17 18 20 Blood Pressure 159/73 H 117/65 Pulse Oximetry 95 94 L 06/03/18 12:40 Temperature 100 F H Pulse Rate 88 Respiratory Rate 18 Blood Pressure 107/56 L Pulse Oximetry 93 L Intake & Output 06/02/18 06/03/18 06/03/18 18:59 06:59 18:59 Intake Total 0 / 0 1000 / 1000 1000 / 1000 Output Total 1 / 1 Balance -1 / -1 1000 / 1000 1000 / 1000 Weight 88.1 kg Intake: IV 1000 / 1000 1000 / 1000 NS Inj 1,000 ML @ 100 mls/hr IV 1000 / 1000 1000 / 1000 .CONT .Q10H [facility] Rx#:[id number] Oral 0 / 0 Oral Supplement 0 / 0 Output: Urine Other: # Voids 1 # Incontinent Voids 2 # Urine Diapers 1 Date of Last Bowel Movement 06/02/18 06/02/18 # Bowel Movements 1 Narrative: GENERAL: in NAD, NEUROLOGICAL: Awake and alert. Oriented to self, can follow some simple request at times, nonsensical speech, extraocular was intact no facial asymmetry moving all extremity to gravity PSYCHIATRIC: Confused - Constitutional no acute distress - Routine HEENT Exam Head: Present: normocephalic Results - Labs CBC & Chem 7: 06/02/18 15:16 06/03/18 10:14 Labs: Laboratory Results - last 24 hr 06/02/18 06/02/18 06/03/18 15:16 15:16 10:14 WBC 10.7 RBC 3.79 L Hgb 11.3 L Hct 33.3 L MCV 87.7 MCH 29.7 MCHC 33.9 RDW 13.7 Plt Count 107 L D MPV 7.9 Neut % (Auto) 67.5 Lymph % (Auto) 18.5 [place] % (Auto) 13.4 H Eos % (Auto) 0.4 Baso % (Auto) 0.2 Neut # (Auto) 7.2 Lymph # (Auto) 2.0 [place] # (Auto) 1.4 H Eos # (Auto) 0.0 Baso # (Auto) 0.0 WBC Differential . Differential Comment Auto diff final Sodium 138 138 Potassium 3.8 4.2 Chloride 101 103 Carbon Dioxide 29.2 27.2 Anion Gap 8 8 BUN 32 H 34 H Creatinine 1.64 H 1.18 Estimated GFR 43 L 62 L Random Glucose 79 105 Calcium 9.2 9.0 Review/Management - Diagnosis (1) Seizure Code(s): R56.9 - Unspecified convulsions Status: Acute Current Visit: Yes (2) Hypotension Code(s): I95.9 - Hypotension, unspecified Status: Acute Current Visit: Yes (3) PTSD (post-traumatic stress disorder) Code(s): F43.10 - Post-traumatic stress disorder, unspecified Status: Acute Current Visit: No (4) Major depressive disorder, recurrent, severe w/o psychotic behavior Code(s): F33.2 - Major depressive disorder, recurrent severe without psychotic features Status: Acute Current Visit: No (5) Acute psychosis Code(s): F23 - Brief psychotic disorder Status: Acute Current Visit: Yes - Review/Management Plan: Questionable seizure history; possible convulsive syncope related to hypotension Antipsychotics could cause hypotension in addition could lower seizure threshold Patient seen in the past by palliative care and noted to have chronic alcoholism , bipolar, seizure disorder, hepatitis Recommendation Depakote Keppra dose has been increased. Also noted is on gabapentin which would act as a third anticonvulsant agent if he would require that Follow Depakote level Follow-up EEG Follow-up brain imaging Seizure fall precautions No driving, operating any heavy machinery or dangerous machinery, swimming alone for at least 6 months of being seizure, spell free.
--- NOTE | 2018-06-03 17:09 | CT ---
EXAM DATE: 06/03/2018 3:30 PM EDT AGE/SEX: 62 years / Male INDICATIONS: Altered mental status. CLINICAL DATA: This is the patient's initial encounter. Patient reports that signs and symptoms have been present for 1 day and indicates a pain score of Nonresponsive. MEDICAL/SURGICAL HISTORY: Seizures. Cirrhosis. Pancreatitis. Hypotension, PTSD. None. RADIATION DOSE: 56.35 CTDI (mGy) COMPAR[place]: [facility] [place], 08/28/2017. . TECHNIQUE: CT of the head without contrast. Using automated exposure control and adjustment of the mA and/or kV according to patient size, radiation dose was kept as low as reasonably achievable to ob tain optimal diagnostic quality images. DICOM format image data is available electronically for revi ew and comparison. FINDINGS: There is diffuse prominence of the CSF spaces, ventricles and cisterns. No signs of intracranial hemo rrhage, acute infarction, or mass. Osseous structures are intact. CONCLUSION: 1. No acute findings. . Electronically signed by: Patrick Driscoll MD 06/03/2018 5:07 PM EDT
[2018-06-03] MEDS: levETIRAcetam 250 MG Tablet PO SCH (18:20)
[2018-06-03] MEDS: Lidocaine 5% Patch T-DERMAL SCH (21:43)
[2018-06-04] MEDS: Sod Chloride 0.9% Inj 1,000 ML IV.CONT SCH ×3 (01:58→21:00)
[2018-06-04] MEDS: Baclofen 10 MG Tablet PO SCH ×3 (02:01→18:00)
[2018-06-04] MEDS: Levothyroxine 50 MCG Tablet PO SCH (06:22)
[2018-06-04] MEDS: levETIRAcetam 250 MG Tablet PO SCH ×3 (06:22→21:03)
[2018-06-04] MEDS: Lactobacillus Acidophilus/L. Spores Tablet PO SCH (06:22)
[2018-06-04] MEDS: Divalproex 500 MG ER Tablet PO SCH ×2 (10:18→21:01)
[2018-06-04] MEDS: Gabapentin 100 MG Capsule PO SCH ×4 (10:18→21:01)
[2018-06-04] MEDS: Senna/Docusate Sodium 8.6/50 MG Tablet PO SCH ×2 (10:19→21:01)
[2018-06-04] MEDS: Enoxaparin Inj 40 MG/0.4 ML Syringe SQ SCH (10:19)
[2018-06-04] MEDS: Sertraline 100 MG Tablet PO SCH (10:19)
[2018-06-04] MEDS: Calcium Carbonate 500 MG Tablet PO SCH ×2 (10:19→21:02)
--- NOTE | 2018-06-04 11:48 | P.PNIM ---
Subjective Interval history: Follow-up seizure activities, and hypotension and acute psychosis, PTSD. Patient seen and examined, confused, irritable, nurse in room. Patient denies any chest pain or shortness of breath, denies any headache or dizziness, denies any abdominal pain, nausea, vomiting, diarrhea or constipation. Patient denies any fever or chills. Patient complained about pain in his hand, when asked which hand he said the left hand, left hand was found to be under his bottom, patient laying on it. Patient repositioned in bed. Patient was upset when repositioned in bed, verbalizing "just shoot me" "just take my nose out". Physical Exam Vital signs: Vital Signs 06/03/18 12:40 06/03/18 16:00 06/03/18 20:00 Temperature 100 F H 97.9 F 97.9 F Pulse Rate 88 80 81 Respiratory Rate 18 16 19 Blood Pressure 107/56 L 106/51 L 113/59 L Pulse Oximetry 93 L 94 L 94 L 06/04/18 06:00 06/04/18 08:00 Temperature 98.1 F 98.2 F Pulse Rate 76 67 Respiratory Rate 15 18 Blood Pressure 112/67 115/69 Pulse Oximetry 96 94 L Intake & Output 06/03/18 06/04/18 06/04/18 18:59 06:59 18:59 Intake Total 1000 / 1000 1480 / 1480 Balance 1000 / 1000 1480 / 1480 Intake: IV 1000 / 1000 1000 / 1000 NS Inj 1,000 ML @ 100 mls/hr IV 1000 / 1000 1000 / 1000 .CONT .Q10H [facility] Rx#:[id number] Oral 480 / 480 Other: # Voids 4 1 # Incontinent Voids 4 2 # Urine Diapers 4 Date of Last Bowel Movement 06/03/18 # Incontinent Bowel Movements 1 Narrative: GENERAL: Well-developed, well-nourished, older looking than his age, irritable male, awake, alert/hyperverbal in no apparent distress SKIN: Warm and dry. HEAD: Atraumatic. Normocephalic. EYES: Pupils equal and round. No scleral icterus. No injection or drainage. ENT: No nasal bleeding or discharge. Mucous membranes pink and moist. NECK: Trachea midline. No JVD. CARDIOVASCULAR: Regular rate and rhythm. RESPIRATORY: No accessory muscle use. Clear to auscultation. Breath sounds equal bilaterally. GASTROINTESTINAL: Abdomen obese soft, non-tender, nondistended. Hepatic and splenic margins not palpable. MUSCULOSKELETAL: Extremities without clubbing, cyanosis, or edema. No obvious deformities. NEUROLOGICAL: Awake and alert oriented to self, and birthday. Follows commands. Motor grossly within normal limits. Generalized weakness moving all 4 extremities normal speech. PSYCHIATRIC: Irritable mood and affect; hyperverbal with confusion Results - Labs CBC & Chem 7: 06/02/18 15:16 06/03/18 10:14 - Imaging Impressions Head CT 06/03/18 15:23 CONCLUSION: 1. No acute findings. . Assessment and Plan - Plan Mr. Peters is a 62 year old male with a history of Seizure disorder, hyperlipidemia, depression/dementia who was under the care of psychiatry team. Hospitalist service was re-consulted because patient's heart rate was in the bradycardic range and his BP dropped to 84/60. Additionally, patient also has been having what psychiatry RN describes as absent seizures. Hypotension Blood pressure improving 115/67, 115/69 today -Status post NS bolus and NS @ 100cc/hour x 2 L -Repeat BP is improved to MAP 84 -Monitor blood pressure Encourage increase fluid intake, nurse reported eating well and drinking well Seizure disorder -Recently Keppra and Depakote dose increased, continue gabapentin - Neurology consultation, appreciate recommendation: Continue Depakote and Keppra, noted gabapentin with Anticonvulsant Agent. Recommended no driving operating any heavy machinery or dangerous machinery, swimming alone for at least 6 months of being seizure, spell free. - Provide seizure fall pre-cautions. -Monitor Keppra level pending -Depakote level on record unremarkable 72 -Follow EEG and brain imaging -Head CT: No acute findings Hyperlipidemia Hypothyroidism - Continue Lipitor, Levothyroxine -Monitor TSH, improved to 1.78 today -Monitor lipids and LFT PTSD/acute psychosis Management by psychiatric team Patient may transfer to medical psych floor when bed available Full code. Rhina. Code Status: Full code Discussed Condition With: Patient and nurse Discharge Planning: Patient may be transferred to the medical psych floor when bed available
[2018-06-04 12:55] VITALS: BP 115/67; PULSE 75; TEMP 97.4; O2SAT 95
[2018-06-04] MEDS: Lidocaine 5% Patch T-DERMAL SCH (21:03)
[2018-06-04 22:03] VITALS: RESP 16
--- NOTE | 2018-06-05 12:01 | MG ---
cc: Remington Chung MD ELECTROENCEPHALOGRAM RECORD NUMBER: [id number] DESCRIPTION: A lot of myogenic and electrical artifact at the beginning of the recording. Thereafter, background showing low amplitude, 5-50 microvolt, 5-6 Hz activity with bursts of 2-3 Hz delta activity occurring. Appeared to be in sleep state, followed by arousal with eye movements, some increment of background. Limited driving with photic stimulation. Single-lead EKG showing sinus rhythm. INTERPRETATION: Mild encephalopathy, sleep state and artifact. Clinical correlation. MD TING Norman/zuleika , 07:03 AM , 07:08 AM
== END 2018-06-04 22:11 | disposition short-term general hospital (02) ==
LOC: NEPD 17:34 → NEDA 03-16 16:34 → H4EA 03-16 19:22 → H260 03-17 14:31 → H250 04-08 20:53 → H4EA 05-20 01:05 → H250 05-31 15:48 → N05 06-02 12:00 → H4EA 06-04 16:25 → N05 06-04 22:08
PROVIDERS: ADMIT Psychiatry & Neurology Psychiatry; ATTEND Psychiatry & Neurology Psychiatry

== ENCOUNTER 2018-06-04 15:40 | Inpatient (IN) ==
[2018-06-05] MEDS ORDERED: Bisacodyl 10 MG Supp RECTAL PRN (00:18)
--- NOTE | 2018-06-05 00:29 | P.CON ---
[facility]: [facility] Requesting Physician: Gary Ornelas Reason for Consult: medical managment - seizures Primary Care Provider: UNKNOWN Chief Complaint: Transfer from [facility] hospital after episodes of seizures History of Present Illness: Mr. Peters is a 62-year-old male with past medical history significant for bipolar disorder, seizures, gout, chronic pain, COPD, hypertension, hyperlipidemia, chronic alcoholic pancreatitis, and hepatitis B and C who was has had a lengthy admission for inpatient psychiatric care since 03/15/2018 with complications including pneumonia and most recently seizures with hypotension resulting in transfer to the [facility] for evaluation and management. He was transferred back to the medical psychiatric unit on 06/04/2018. [facility] Patient is seen on the medical psychiatric unit. He is confused to all but self. He is hard of hearing. He reports generalized pain that is worse with movement and is requesting pain medication. Discussed with the staff nurse and she reports this is chronic pain and the patient has a history of demonstrating drug-seeking behaviors. Will provide some Tylenol for pain and reevaluate as needed. Review of Systems unobtainable due to mental status (patient confused to all but self) PMFSH - History History Provided By: Medical Record - Medical History Medical History: Medical History (Last Updated 06/05/18 @ 01:00 by CHRISTIAN Thomas) Chronic pain Cirrhosis PTSD (post-traumatic stress disorder) Pancreatitis, chronic Seizure - Surgical History Surgical History: Surgical History (Last Reviewed 06/05/18 @ 01:00 by CHRISTIAN Thomas) History of hip surgery - Family History Family History: Family History (Last Updated 06/05/18 @ 00:59 by CHRISTIAN Thomas) Other Unknown family medical history - Tobacco History Second Hand Smoke Exposure: No Tobacco Use In Past 30 Days: No Smoking Status: Current every day smoker Tobacco Type: Cigarettes - Alcohol History How Often Do You Have a Drink Containing Alcohol: Unable to Obtain - Substance Use History Substance History: No History of Abuse Medications and Allergies Active Medications: Active Medications Albuterol (Duoneb Neb (Prn)) 1 ampul NEB Q2HR NEB PRN PRN Reason: sob/wheezing Atorvastatin Calcium (Lipitor) 10 mg PO HS [facility] Diphenhydramine HCl (Benadryl) 50 mg PO HS PRN PRN Reason: INSOMNIA Divalproex Sodium (Depakote Dr) 500 mg PO BID [facility] Enoxaparin Sodium (Lovenox Inj) 40 mg SQ DAILY [facility] Gabapentin (Neurontin) 100 mg PO TID [facility] Levetiracetam (Keppra) 750 mg PO BID [facility] Levothyroxine Sodium (Synthroid) 50 mcg PO DAILY@0600 [facility] Lidocaine HCl (Lidoderm 5% Patch.12 Hr) 1 patch T-DERMAL DAILY [facility] Lorazepam (Ativan Inj) 1 mg IV.PUSH Q10M PRN PRN Reason: SEE LABEL COMMENTS Multivitamins (Theragran) 1 tab PO DAILY [facility] Nicotine (Habitrol 14 Mg Patch.24 Hr) 1 patch T-DERMAL DAILY [facility] Non-Formulary Medication (Calcium Carbonate [Calcium Carbonate]) 600 mg PO BID [facility] Non-Formulary Medication (Baclofen [Baclofen]) 15 mg PO Q8H [facility] Non-Formulary Medication (Lactobacillus Acidophilus [Lactobacillus Acidophilus] ) 100 mg PO 5XW [facility] Patch Removal (Remove Old Patch) 1 each T-DERMAL DAILY [facility] Allergies Allergy/AdvReac Type Severity Reaction Status Date / Time No Known Allergies Allergy Uncoded 11/13/16 20:22 Home Medications Medication Instructions Recorded Confirmed Type Lactobacillus acidophilus 100 mg PO 5XW 06/04/18 06/04/18 History acetaminophen 650 mg PO Q6H PRN 06/04/18 06/04/18 History baclofen 15 mg PO TID 06/04/18 06/04/18 History calcium carbonate 600 mg PO BID 06/04/18 06/04/18 History divalproex [Depakote] 500 mg PO HS 06/04/18 06/04/18 History gabapentin 200 mg PO TID 06/04/18 06/04/18 History gabapentin [Neurontin] 100 mg PO TID 06/04/18 06/04/18 History hydroxyzine pamoate 50 mg PO TID PRN 06/04/18 06/04/18 History ibuprofen 600 mg PO QID PRN 06/04/18 06/04/18 History levetiracetam 250 mg PO BID 06/04/18 06/04/18 History lidocaine [Lidoderm] 1 patch TOPICAL DAILY 06/04/18 06/04/18 History multivitamin with folic acid 1 tab PO DAILY 06/04/18 06/04/18 History [Thera] sertraline 200 mg PO DAILY 06/04/18 06/04/18 History Physical Exam Vital signs: Vital Signs 06/04/18 23:41 06/05/18 00:16 Temperature 98.7 F Pulse Rate 68 Respiratory Rate 16 17 Blood Pressure 127/80 Pulse Oximetry 98 Intake & Output 06/04/18 06/04/18 06/05/18 06:59 18:59 06:59 Weight 88.1 kg Other: Weight On Admission 88.1 kg Narrative: GENERAL: This is a disheveled male patient, in no apparent distress. SKIN: Skin is warm and dry. HEAD: Atraumatic. Normocephalic. EYES: No scleral icterus. No injection or drainage. ENT: [place]. No nasal discharge. Poor dentition. NECK: Trachea midline. No JVD. CARDIOVASCULAR: Regular rate and rhythm without murmurs, gallops, or rubs. RESPIRATORY: Clear to auscultation. Breath sounds equal bilaterally. No wheezes , rales, or rhonchi. GASTROINTESTINAL: Abdomen soft, non-tender, nondistended. No guarding. MUSCULOSKELETAL: Extremities without clubbing, cyanosis, or edema. No calf tenderness. NEUROLOGICAL: Awake and alert, oriented to self only. Motor and sensory grossly within normal limits. Normal speech. PSYCHIATRIC: Irritable mood and affect; awakened for exam; confused. . Assessment and Plan - Plan Mr. Peters is a 62-year-old male with past medical history significant for bipolar disorder, seizures, gout, chronic pain, COPD, hypertension, hyperlipidemia, chronic alcoholic pancreatitis, and hepatitis B and C who was has had a lengthy admission for inpatient psychiatric care since 03/15/2018 with complications including pneumonia and most recently seizures with hypotension resulting in transfer to the main hospital for evaluation and management. He was transferred back to the medical psychiatric unit on 06/04/2018. [facility]. Seizures -Seizure precautions as needed -Neurochecks and Vital Signs every 4 hours for now -Restart antiepileptic medications including Keppra and Depakote -Repeat labs in a.m. and follow results Hyperlipidemia Hypothyroidism - Continue Lipitor 10 qhs and Levothyroxine 50 mcq qam -Monitor thyroid functions - TSH 1.78 with Free T4 low at 0.61, synthroid was increased on 05/20 - recheck labs in 6 - 8 weeks -Monitor lipids and LFT q6 months - last checked 03/17/18 PTSD/acute psychosis Management by psychiatric team Chronic pain -Continue baclofen 15 mg p.o. every 8 hours, continue gabapentin 100 mg p.o. 3 times daily, continue lidocaine patch, and add pain indication to PRN Acetaminophen order - monitor/evaluate effectiveness DVT prophylaxis -Lovenox 40 mg subcu every 24 hours Discussed Condition With: Dr. Mederos and bedside RN .
[2018-06-05] MEDS: Baclofen 10 MG Tablet PO SCH ×3 (01:25→17:42)
[2018-06-05] MEDS: Levothyroxine 50 MCG Tablet PO SCH (06:08)
[2018-06-05] MEDS: levETIRAcetam 250 MG Tablet PO SCH ×2 (10:00→20:42)
[2018-06-05] MEDS: Divalproex 500 MG DR Tablet PO SCH ×2 (10:00→20:42)
[2018-06-05] MEDS: Lactobacillus Acidophilus/L. Spores Tablet PO SCH (10:04)
[2018-06-05] MEDS: Gabapentin 100 MG Capsule PO SCH ×3 (10:05→17:41)
[2018-06-05] MEDS: Calcium Carbonate 500 MG Tablet PO SCH ×2 (10:05→20:42)
[2018-06-05] MEDS: Enoxaparin Inj 40 MG/0.4 ML Syringe SQ SCH (10:07)
--- NOTE | 2018-06-05 12:35 | P.HPPSY ---
Provisional Diagnosis Admission Date: June 04, 2018 15:40 [place] I.: PTSD, chronic Bipolar Disorder 1,MRE depressed [place] III.: seizure disorder, hypothyroidism, seizure disorder, pancreatitis, chronic Competence Certification of Person's Competence To Provide Express and Informed Consent I have personally examined Pardeep Peters, a person being served at [facility] on, June 05, 2018 1143. Express and informed consent means consent voluntarily given in writing, by a competent person, after sufficient explanation and disclosure of the subject matter involved to enable the person to make a knowing and willful decision without any element of force, fraud, deceit, duress, or other form of constraint or coercion. This person is 18 years of age or older, is not now known to be incompetent to consent to treatment with a guardian advocate, and does not have a health care surrogate or proxy currently making medical treatment decisions. I have found this person to be one of the following: [x] Competent to provide express and informed consent, as defined above, for voluntary admission to this facility and is competent to provide express and informed consent for treatment. He/she has the consistent capacity to make well reasoned, willful, and knowing decisions concerning his or her medical or mental health treatment. The person fully and consistently understands the purpose of the admission for examination/placement and is fully capable of personally exercising all rights assured under [place] [] Incompetent to provide express and informed consent to voluntary admission, and this is incompetent to provide express and informed consent to treatment. The person must be transferred to involuntary status and a petition for a guardian advocate filed with the Circuit Court. [] Refusing to provide express and informed consent to voluntary admission but is competent to provide express and informed consent for treatment. The person must be discharged or transferred to involuntary status. Form shall be completed within 24 hours of a person's arrival at the receiving facility and filed in the clinical record of each person: 1. Admitted on a voluntary basis 2. Permitted to provide express and informed consent to his/her own treatment 3. Allowed to transfer from involuntary to voluntary status 4. Prior to permitting a person to consent to his or her own treatment after having been previously found incompetent to consent to treatment. History of Present Illness Capacity: Has capacity Chief Complaint: "I feel like shit" History of Present Illness: Pt is a 62 YOWM with a hx of PTSD, chronic and bipolar disorder and multiple medical problems who was re-admitted to psychiatry service for treatment of depression and PTSD on 06/04/2018 after medical transfer for seizures and hypotension. Psychiatric medications of seroquel 200mg PO 0900, 1300 and QHS, and sertraline 200mg PO Daily were continued during medical floor admission. Pt reports feeling tired and groggy.medical staffing coordinator report that pt has been mostly sleeping since transfer. He is irritable and focused on medical problems. Interview is difficult due to pt's lack of desire for cooperation. He is well known to service from previous psychiatric admissions. He is a [place] and still has flashbacks and nightmares about service. Previous [facility] closed down and pt is currently homeless. He is agreeable to admission and treatment and has capacity. - Inpatient Certification I certify that the inpatient services were ordered in accordance with Medicare regulations governing the order. This includes certification that hospital inpatient services are reasonable and necessary and in the case of services not specified as inpatient-only under 42 CFR 419.22(n), that they are appropriately provided as inpatient services in accordance to with the 2-midnight benchmark under 43 CFR 412.3(e) I certify that inpatient psychiatric hospital services are medically necessary. Evaluation and treatment and/or diagnostic testing are expected to improve the patient's condition. The patient needs on a daily basis, active treatment furnished directly by or requiring the supervision of inpatient psychiatric facility personnel. Estimated Total Length of Stay (Days): 7 Plans for Post Hospital Care: SNF Review of Systems Musculoskeletal: Reports body aches PMFSH - History History Provided By: Medical Record - Medical History Medical History: Medical History (Last Reviewed 06/05/18 @ 12:17 by Barbara Patel MD) Chronic pain Cirrhosis PTSD (post-traumatic stress disorder) Pancreatitis, chronic Seizure - Surgical History Surgical History: Surgical History (Last Reviewed 06/05/18 @ 12:17 by Barbara Patel MD) History of hip surgery - Family History Family History: Family History (Last Reviewed 06/05/18 @ 12:17 by Barbara Patel MD) Other Unknown family medical history - Social History I have reviewed the patient's Social History: Yes - Tobacco History Second Hand Smoke Exposure: No Tobacco Use In Past 30 Days: No Smoking Status: Current every day smoker Tobacco Type: Cigarettes - Alcohol History How Often Do You Have a Drink Containing Alcohol: Unable to Obtain - Substance Use History Substance History: No History of Abuse - Travel History History of Recent Travel: No Recent Travel in the [place] Within the Last 8 Weeks: No Recent Travel Out of the Country Within the Last 8 Weeks: No Quality Measures - Psychiatric History 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 trauma 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 Medications and Allergies Active Medications: Active Medications Acetaminophen (Tylenol) 650 mg PO Q4H PRN PRN Reason: Temp > 100.4/pain Al Hydroxide/Mg Hydroxide (Milk Of Magngemma Liq) 30 ml PO Q12H PRN PRN Reason: Mild Constipation Albuterol (Duoneb Neb (Prn)) 1 ampul NEB Q2HR NEB PRN PRN Reason: sob/wheezing Atorvastatin Calcium (Lipitor) 10 mg PO HS [facility] Baclofen (Lioresal) 15 mg PO Q8H [facility] Last Admin: 06/05/18 10:05 Dose: 15 mg Bisacodyl (Dulcolax Supp) 10 mg RECTAL DAILY PRN PRN Reason: SEVERE CONSITIPATION Calcium Carbonate (Oscal) 500 mg PO BID [facility] Last Admin: 06/05/18 10:05 Dose: 500 mg Diphenhydramine HCl (Benadryl) 50 mg PO HS PRN PRN Reason: INSOMNIA Divalproex Sodium (Depakote Dr) 500 mg PO BID [facility] Last Admin: 06/05/18 10:00 Dose: 500 mg Enoxaparin Sodium (Lovenox Inj) 40 mg SQ DAILY [facility] Last Admin: 06/05/18 10:07 Dose: 40 mg Gabapentin (Neurontin) 100 mg PO TID [facility] Last Admin: 06/05/18 10:05 Dose: 100 mg Lactobacillus Acidophilus (Lactinex) 1 tab PO SuTuWeThSa [facility] Last Admin: 06/05/18 10:04 Dose: 1 tab Levetiracetam (Keppra) 750 mg PO BID [facility] Last Admin: 06/05/18 10:00 Dose: 750 mg Levothyroxine Sodium (Synthroid) 50 mcg PO DAILY@0700 [facility] Last Admin: 06/05/18 06:08 Dose: 50 mcg Lidocaine HCl (Lidoderm 5% Patch.12 Hr) 1 patch T-DERMAL HS [facility] Lorazepam (Ativan Inj) 1 mg IV.PUSH Q10M PRN PRN Reason: SEE LABEL COMMENTS Multivitamins (Theragran) 1 tab PO DAILY [facility] Last Admin: 06/05/18 10:05 Dose: 1 tab Nicotine (Habitrol 14 Mg Patch.24 Hr) 1 patch T-DERMAL DAILY [facility] Last Admin: 06/05/18 10:06 Dose: 1 patch Ondansetron HCl (Zofran Inj) 4 mg IV.PUSH Q6H PRN PRN Reason: NAUSEA OR VOMITING Patch Removal (Remove Old Patch) 1 each T-DERMAL DAILY [facility] Sennosides (Senokot) 17.2 mg PO Q12H PRN PRN Reason: Moderate Constipation Sodium Chloride (Ns Flush) 2 ml IV.FLUSH PRN PRN PRN Reason: FLUSH AFTER USING IV ACCESS Sodium Chloride (Ns Flush) 2 ml IV.FLUSH BID [facility] Allergies Allergy/AdvReac Type Severity Reaction Status Date / Time No Known Allergies Allergy Uncoded 11/13/16 20:22 Home Medications Medication Instructions Recorded Confirmed Type Lactobacillus acidophilus 100 mg PO 5XW 06/04/18 06/04/18 History acetaminophen 650 mg PO Q6H PRN 06/04/18 06/04/18 History baclofen 15 mg PO TID 06/04/18 06/04/18 History calcium carbonate 600 mg PO BID 06/04/18 06/04/18 History divalproex [Depakote] 500 mg PO HS 06/04/18 06/04/18 History gabapentin 200 mg PO TID 06/04/18 06/04/18 History gabapentin [Neurontin] 100 mg PO TID 06/04/18 06/04/18 History hydroxyzine pamoate 50 mg PO TID PRN 06/04/18 06/04/18 History ibuprofen 600 mg PO QID PRN 06/04/18 06/04/18 History levetiracetam 250 mg PO BID 06/04/18 06/04/18 History lidocaine [Lidoderm] 1 patch TOPICAL DAILY 06/04/18 06/04/18 History multivitamin with folic acid 1 tab PO DAILY 06/04/18 06/04/18 History [Thera] sertraline 200 mg PO DAILY 06/04/18 06/04/18 History Exam Vital signs: Vital Signs 06/04/18 23:41 06/05/18 00:16 06/05/18 05:07 Temperature 98.7 F 97.9 F Pulse Rate 68 63 Respiratory Rate 16 17 16 Blood Pressure 127/80 119/59 L Pulse Oximetry 98 95 06/05/18 08:00 Temperature Pulse Rate Respiratory Rate 16 Blood Pressure Pulse Oximetry Intake & Output 06/04/18 06/05/18 06/05/18 18:59 06:59 18:59 Weight 88.1 kg Other: Weight On Admission 88.1 kg Mental Status Examination Appearance: Appropriate Consciousness: Alert Orientation: x4 Motor Activity: Abnormal gait (uses walker) Speech: Unremarkable Language: Adequate Fund of Knowledge: Adequate Attention and Concentration: Adequate Memory: Impaired (mild) Mood: Irritable Affect: Irritable Thought Process & Associations: Intact Thought Content: Obsessions Hallucination Type: None Delusion Type: None Suicidal Ideation: No Suicidal Plan: No Suicidal Intention: No Homicidal Ideation: No Homicidal Plan: No Homicidal Intention: No Insight: Poor Judgment: Poor Assessment and Plan - Assessment (1) Bipolar disorder current episode depressed Code(s): F31.30 - Bipolar disorder, current episode depressed, mild or moderate severity, unspecified Status: Acute (2) PTSD (post-traumatic stress disorder) Code(s): F43.10 - Post-traumatic stress disorder, unspecified Status: Acute - Plan Plan: Estimated LOS: [] days Will lower daytime seroquel to 100mg PO Q0900 and q1300 and 300mg PO QHS to address daytime sedation. Continue sertraline 200mg PO Qdaily for PTSD. Discharge planning in progress. Justification for Continued Inpatient Stay: impairments in self care.
--- NOTE | 2018-06-05 13:43 | P.PNIM ---
Subjective Interval history: Follow up seizure like activity, hypotension, bipolar disorder, seizures, gout , chronic pain, COPD, hypertension, hyperlipidemia, chronic alcoholic pancreatitis, and hepatitis B and C . patient seen an d examined, bundles up in the be covering his head. Awaken for assessment, calm at this time and answers questions appropriately. Patient denies any headache or dizzioness, pain, chest pain, or SOB. Stated he eats well, denies any abdominal pain, nausea, vomiting, diarrhea or constipations. Denies any fever or chills. Physical Exam Vital signs: Vital Signs 06/04/18 23:41 06/05/18 00:16 06/05/18 05:07 Temperature 98.7 F 97.9 F Pulse Rate 68 63 Respiratory Rate 16 17 16 Blood Pressure 127/80 119/59 L Pulse Oximetry 98 95 06/05/18 08:00 Temperature Pulse Rate Respiratory Rate 16 Blood Pressure Pulse Oximetry Intake & Output 06/04/18 06/05/18 06/05/18 18:59 06:59 18:59 Weight 88.1 kg Other: Weight On Admission 88.1 kg Narrative: GENERAL: well developed, disheveled male patient, in no apparent distress. SKIN: Skin is warm and dry. HEAD: Atraumatic. Normocephalic. EYES: No scleral icterus. No injection or drainage. ENT: [place]. No nasal discharge. Poor dentition. NECK: Trachea midline. No JVD. CARDIOVASCULAR: Regular rate and rhythm without murmurs, gallops, or rubs. RESPIRATORY: Clear to auscultation. Breath sounds equal bilaterally. No wheezes , rales, or rhonchi. GASTROINTESTINAL: Abdomen obese soft, non-tender, nondistended. No guarding. MUSCULOSKELETAL: Extremities without clubbing, cyanosis, or edema. No calf tenderness. NEUROLOGICAL: Awake and alert, oriented to self only. Motor and sensory grossly within normal limits. Moving all 4 extremities. Normal speech. PSYCHIATRIC: Irritable mood and affect; awakened for exam; with confusion . Assessment and Plan - Assessment (1) PTSD (post-traumatic stress disorder) Code(s): F43.10 - Post-traumatic stress disorder, unspecified Status: Acute (2) Major depressive disorder, recurrent, severe w/o psychotic behavior Code(s): F33.2 - Major depressive disorder, recurrent severe without psychotic features Status: Acute (3) Acute psychosis Code(s): F23 - Brief psychotic disorder Status: Acute (4) Post-traumatic stress disorder Code(s): F43.10 - Post-traumatic stress disorder, unspecified Status: Acute (5) Seizure Code(s): R56.9 - Unspecified convulsions Status: Acute - Plan Mr. Peters is a 62-year-old male with past medical history significant for bipolar disorder, seizures, gout, chronic pain, COPD, hypertension, hyperlipidemia, chronic alcoholic pancreatitis, and hepatitis B and C who was has had a lengthy admission for inpatient psychiatric care since 03/15/2018 with complications including pneumonia and most recently seizures with hypotension resulting in transfer to the main hospital for evaluation and management. He was transferred back to the medical psychiatric unit on 06/04/2018. [place] [facility] to assist with medical management. Seizures -Seizure precautions as needed -Neuro checks and Vital Signs every 4 hours for now -Restart antiepileptic medications including Keppra and Depakote -Repeat labs in a.m. and follow results Hyperlipidemia Hypothyroidism - Continue Lipitor 10 qhs and Levothyroxine 50 mcq qam -Monitor thyroid functions - TSH 1.78 with Free T4 low at 0.61, synthroid was increased on 05/20 - recheck labs in 6 - 8 weeks -Monitor lipids and LFT q6 months - last checked 03/17/18 PTSD/acute psychosis Management by psychiatric team Chronic pain -Continue baclofen 15 mg p.o. every 8 hours, continue gabapentin 100 mg p.o. 3 times daily, continue lidocaine patch, and add pain indication to PRN Acetaminophen order - monitor/evaluate effectiveness DVT prophylaxis -Lovenox 40 mg subcu every 24 hours Code Status: full code Discussed Condition With: patient and nurse
[2018-06-05] MEDS: Lidocaine 5% Patch T-DERMAL SCH (20:42)
[2018-06-06] MEDS: Baclofen 10 MG Tablet PO SCH ×3 (01:38→15:15)
[2018-06-06] MEDS: Levothyroxine 50 MCG Tablet PO SCH (06:25)
[2018-06-06] MEDS: Sertraline 100 MG Tablet PO SCH (08:19)
[2018-06-06] MEDS: Calcium Carbonate 500 MG Tablet PO SCH ×2 (08:19→20:49)
[2018-06-06] MEDS: levETIRAcetam 250 MG Tablet PO SCH ×2 (08:19→20:49)
[2018-06-06] MEDS: Gabapentin 100 MG Capsule PO SCH ×3 (08:20→17:43)
[2018-06-06] MEDS: Divalproex 500 MG DR Tablet PO SCH ×2 (08:20→20:49)
[2018-06-06] MEDS: Enoxaparin Inj 40 MG/0.4 ML Syringe SQ SCH (09:19)
[2018-06-06 16:33] LABS: Baso % (Auto) 0.3 % (0.0-2.0); Eos # (Auto) 0.1 th/mm3 (0.0-0.4); Hematocrit 32.2 % (39.0-51.0); Hemoglobin 10.5 gm/dL (13.0-17.0); Lymph # (Auto) 1.8 th/mm3 (1.0-4.8); Lymph % (Auto) 43.4 % (9.0-44.0); Mean Corpuscular HGB Conc 32.6 % (32.0-36.0); Mean Corpuscular Hemoglobin 28.8 pg (27.0-34.0); Mean Corpuscular Volume 88.2 fL (80.0-100.0); Mean Platelet Volume 7.4 fL (7.0-11.0); Mono # (Auto) 0.5 th/mm3 (0.0-0.9); Mono % (Auto) 11.6 % (0.0-8.0); Neut # (Auto) 1.8 th/mm3 (1.8-7.7); Neut % (Auto) 42.7 % (16.0-70.0); Platelet Count 148 th/mm3 (150-450); Red Blood Count 3.66 mil/mm3 (4.50-5.90); Red Cell Distribution Width 13.5 % (11.6-17.2); White Blood Count 4.2 th/mm3 (4.0-11.0)
--- NOTE | 2018-06-06 16:34 | P.PNPSY ---
Subjective Chief Complaint: "I feel like shit" Remarks: Patient seen for follow-up, chart reviewed. Discussion with nursing staff reported that patient continues to have marginally low blood pressures at times and saturations. Patient was found lying hospital bed noted to be superficially cooperative states "I am fine leave me alone, continues with baseline confusion. Patient refuses to continue engagement in interview today but denying any physical complaints at this time. Review of Systems All other systems reviewed negative except as stated in HPI Mental Status Examination Appearance: Appropriate Consciousness: Alert Orientation: x4 Motor Activity: Abnormal gait (uses walker) Speech: Unremarkable Language: Adequate Fund of Knowledge: Adequate Attention and Concentration: Adequate Memory: Impaired (mild) Mood: Irritable Affect: Irritable Thought Process & Associations: Intact Thought Content: Obsessions Hallucination Type: None Delusion Type: None Suicidal Ideation: No Suicidal Plan: No Suicidal Intention: No Homicidal Ideation: No Homicidal Plan: No Homicidal Intention: No Insight: Poor Judgment: Poor Assessment and Plan - Assessment (1) Bipolar disorder current episode depressed Code(s): F31.30 - Bipolar disorder, current episode depressed, mild or moderate severity, unspecified Status: Acute (2) PTSD (post-traumatic stress disorder) Code(s): F43.10 - Post-traumatic stress disorder, unspecified Status: Acute - Plan Plan: Patient continues with superficial cooperation with interview, continues with irritability but not noted as lethargic as described previously as patient's Seroquel recently reduced. We will continue current treatment. Continue to monitor mood and behavior. Discharge planning in progress. Justification for Continued Inpatient Stay: At risk of further decompensation at lower level care.
--- NOTE | 2018-06-06 16:58 | XR ---
EXAM DATE: 06/06/2018 12:00 AM EDT AGE/SEX: 62 years / Male INDICATIONS: Shortness of breath. CLINICAL DATA: This is the patient's initial encounter. Patient reports that signs and symptoms have been present for 1 day and indicates a pain score of 0/10. MEDICAL/SURGICAL HISTORY: Chronic obstructive pulmonary disease. Hypertension. Tonsillectomy. Appendectomy. Cholecystectomy. COMPARISON: [facility] [place], CHEST 1V SINGLE AP, 05/19/2018. . FINDINGS: There is minimal basilar density, probably atelectasis. No significant effusion. No pneumothorax. Hea rt size mildly enlarged. CONCLUSION: Minimal basilar atelectasis. Electronically signed by: Sam Hopson MD 06/06/2018 4:57 PM EDT
[2018-06-06 17:02] LABS: Calcium 8.6 mg/dL (8.5-10.1); Carbon Dioxide 28.9 meq/L (21.0-32.0); Potassium 3.9 meq/L (3.5-5.1)
--- NOTE | 2018-06-06 17:36 | P.PNIM ---
Subjective Interval history: Follow up seizure like activity, hypotension, bipolar disorder, seizures, gout , chronic pain, COPD, hypertension, hyperlipidemia, chronic alcoholic pancreatitis, and hepatitis B and C . Nurse reported patient O2 sat decreased to 86-88, placed in O2 2 L nasal cannula start DuoNeb treatment ordered chest x- ray ordered. Patient seen and examined sitting in the bed with dinner tray in front of him, just get done eating. Patient sleepy in bed. Patient is not cooperative with assessment, and was irritable. Nurse in the room. Patient stated "you doctors did want to give me any medication, you get the hell out of here" Physical Exam Vital signs: Vital Signs 06/05/18 18:00 06/06/18 06:00 06/06/18 08:00 Temperature 98.4 F 99.3 F Pulse Rate 77 67 Respiratory Rate 17 16 Blood Pressure 106/66 129/56 L Pulse Oximetry 93 L 90 L 06/06/18 10:40 06/06/18 14:30 06/06/18 14:32 Temperature 98.6 F 99.3 F Pulse Rate 65 71 Respiratory Rate 18 16 16 Blood Pressure 98/65 L 103/62 Pulse Oximetry 92 L 88 L 94 L 06/06/18 14:35 06/06/18 16:26 06/06/18 16:38 Temperature Pulse Rate 80 Respiratory Rate 16 Blood Pressure Pulse Oximetry 94 L 94 L 93 L Intake & Output 06/05/18 06/06/18 06/06/18 18:59 06:59 18:59 Intake Total 1040 / 1040 366 / 366 960 / 960 Balance 1040 / 1040 366 / 366 960 / 960 Intake: Oral 1040 / 1040 360 / 360 960 / 960 Oral Supplement Other: # Voids 2 2 Date of Last Bowel Movement 06/05/18 Narrative: GENERAL: well developed, disheveled male patient, sleepy in no apparent distress. SKIN: Skin is warm and dry. HEAD: Atraumatic. Normocephalic. EYES: No scleral icterus. No injection or drainage. ENT: [place]. No nasal discharge. Poor dentition. NECK: Trachea midline. No JVD. CARDIOVASCULAR: Regular rate and rhythm without murmurs, gallops, or rubs. RESPIRATORY: Clear to auscultation. Breath sounds equal bilaterally. No wheezes , rales, or rhonchi anterior, unable to assess posterior patient uncooperative GASTROINTESTINAL: Abdomen obese, soft, non-tender, nondistended. No guarding. MUSCULOSKELETAL: Extremities without clubbing, cyanosis, or edema. No calf tenderness. NEUROLOGICAL: Awake and alert, oriented to self only. Motor and sensory grossly within normal limits. Moving all 4 extremities. Normal speech. PSYCHIATRIC: Irritable mood and affect; awakened for exam; with confusion . Results - Labs CBC & Chem 7: 06/06/18 16:26 06/06/18 16:26 Laboratory Results - last 24 hr 06/06/18 06/06/18 16:26 16:26 WBC 4.2 RBC 3.66 L Hgb 10.5 L Hct 32.2 L MCV 88.2 MCH 28.8 MCHC 32.6 RDW 13.5 Plt Count 148 L D MPV 7.4 Neut % (Auto) 42.7 Lymph % (Auto) 43.4 Phillips % (Auto) 11.6 H Eos % (Auto) 2.0 Baso % (Auto) 0.3 Neut # (Auto) 1.8 Lymph # (Auto) 1.8 Phillips # (Auto) 0.5 Eos # (Auto) 0.1 Baso # (Auto) 0.0 WBC Differential . Differential Comment Auto diff final Sodium 139 Potassium 3.9 Chloride 104 Carbon Dioxide 28.9 Anion Gap 6 BUN 22 H Creatinine 1.04 Estimated GFR 72 L Random Glucose 100 Calcium 8.6 - Imaging Impressions Chest X-Ray 06/06/18 00:00 CONCLUSION: Minimal basilar atelectasis. Assessment and Plan - Assessment (1) PTSD (post-traumatic stress disorder) Code(s): F43.10 - Post-traumatic stress disorder, unspecified Status: Acute (2) Major depressive disorder, recurrent, severe w/o psychotic behavior Code(s): F33.2 - Major depressive disorder, recurrent severe without psychotic features Status: Acute (3) Acute psychosis Code(s): F23 - Brief psychotic disorder Status: Acute (4) Post-traumatic stress disorder Code(s): F43.10 - Post-traumatic stress disorder, unspecified Status: Acute (5) Seizure Code(s): R56.9 - Unspecified convulsions Status: Acute - Plan Mr. Peters is a 62-year-old male with past medical history significant for bipolar disorder, seizures, gout, chronic pain, COPD, hypertension, hyperlipidemia, chronic alcoholic pancreatitis, and hepatitis B and C who was has had a lengthy admission for inpatient psychiatric care since 03/15/2018 with complications including pneumonia and most recently seizures with hypotension resulting in transfer to the main hospital for evaluation and management. He was transferred back to the medical psychiatric unit on 06/04/2018. [place] [facility] were consulted to assist with medical management. Seizures -Seizure precautions as needed -Neuro checks and Vital Signs every 4 hours for now -Restart antiepileptic medications including Keppra and Depakote -Repeat labs in a.m. and follow results Hyperlipidemia Hypothyroidism - Continue Lipitor 10 qhs and Levothyroxine 50 mcq qam -Monitor thyroid functions - TSH 1.78 with Free T4 low at 0.61, synthroid was increased on 05/20 - recheck labs in 6 - 8 weeks -Monitor lipids and LFT q6 months - last checked 03/17/18 PTSD/acute psychosis Management by psychiatric team Chronic pain -Continue baclofen 15 mg p.o. every 8 hours, continue gabapentin 100 mg p.o. 3 times daily, continue lidocaine patch, and add pain indication to PRN Acetaminophen order - monitor/evaluate effectiveness Respiratory decompensation, decline in O2 sat Likely related to over sedation -Psych medication adjusted with psychiatry -Chest x-ray ordered: No significant effusion or pneumothorax -DuoNeb treatments ordered scheduled and as needed -PRN O2 via nasal cannula to keep sats greater than 90%, right now SPO2 94% in 2 L nasal cannula Anemia, Likely acute on chronic Likely assess side effects of medications Monitor CBC DVT prophylaxis -Lovenox 40 mg subcu every 24 hours Code Status: Full code Discussed Condition With: Patient and nurse
[2018-06-06] MEDS: Acetaminophen 325 MG Tablet PO PRN ×2 (17:43→21:49)
[2018-06-06] MEDS: Lidocaine 5% Patch T-DERMAL SCH (20:48)
[2018-06-07] MEDS: Baclofen 10 MG Tablet PO SCH ×3 (01:00→18:45)
[2018-06-07] MEDS: Levothyroxine 50 MCG Tablet PO SCH (13:34)
[2018-06-07] MEDS: Divalproex 500 MG DR Tablet PO SCH ×2 (13:34→20:22)
[2018-06-07] MEDS: Gabapentin 100 MG Capsule PO SCH ×2 (13:35→18:45)
[2018-06-07] MEDS: Calcium Carbonate 500 MG Tablet PO SCH ×2 (13:35→20:22)
[2018-06-07] MEDS: Enoxaparin Inj 40 MG/0.4 ML Syringe SQ SCH (13:35)
[2018-06-07] MEDS: Lactobacillus Acidophilus/L. Spores Tablet PO SCH (13:35)
[2018-06-07] MEDS: levETIRAcetam 250 MG Tablet PO SCH ×2 (13:35→20:22)
[2018-06-07] MEDS: Sertraline 100 MG Tablet PO SCH (13:36)
--- NOTE | 2018-06-07 14:35 | P.PN ---
Subjective Interval history: Follow up seizure like activity, hypotension, bipolar disorder, seizures, gout, chronic pain, COPD, hypertension, hyperlipidemia, chronic alcoholic pancreatitis , and hepatitis B and C. The patient is drowsy throughout conversation today. He reports some nausea, no vomiting or abdominal pain. He is tolerating oral intake. He goes on a tangent about his pain medication when I repeatedly attempt to ask him when his last BM was. He states until we get his meds right, he doesn't want to talk about it. He states he can go to a pharmacy and get something over the counter stronger than percocet. He then falls asleep again. No other concerns reported. Physical Exam Vital signs: Vital Signs 06/06/18 14:30 06/06/18 14:32 06/06/18 14:35 Temperature 99.3 F Pulse Rate 71 Respiratory Rate 16 16 Blood Pressure 103/62 Pulse Oximetry 88 L 94 L 94 L 06/06/18 16:26 06/06/18 16:38 06/06/18 17:40 Temperature 97.9 F Pulse Rate 80 67 Respiratory Rate 16 15 Blood Pressure 97/59 L Pulse Oximetry 94 L 93 L 94 L 06/06/18 18:31 06/06/18 21:01 06/06/18 22:00 Temperature 98.2 F 99 F Pulse Rate 70 61 73 Respiratory Rate 16 16 15 Blood Pressure 100/58 L 94/56 L Pulse Oximetry 95 93 L 06/07/18 02:00 06/07/18 05:25 06/07/18 09:56 Temperature 97.5 F L 97.8 F Pulse Rate 65 56 L Respiratory Rate 15 16 Blood Pressure 118/74 110/69 Pulse Oximetry 90 L 95 92 L Intake & Output 06/06/18 06/07/18 06/07/18 18:59 06:59 18:59 Intake Total 1080 / 1080 300 / 300 Balance 1080 / 1080 300 / 300 Intake: Oral 1080 / 1080 300 / 300 Other: # Voids 1 Date of Last Bowel Movement 06/05/18 06/05/18 Narrative: GENERAL: well developed, disheveled male patient in [facility]. Drowsy. Appears comfortable. SKIN: Skin is warm and dry. HEENT: Atraumatic. Normocephalic. Pupils equal and round. No scleral icterus. No injection or drainage. [place]. Poor dentition. CARDIOVASCULAR: Regular rate and rhythm. No murmur appreciated. RESPIRATORY: Clear to auscultation. Breath sounds equal bilaterally. No wheezes , rales, or rhonchi anterior, unable to assess posterior patient uncooperative GASTROINTESTINAL: Abdomen obese, soft, non-tender, nondistended. Normoactive bowel sounds x4. MUSCULOSKELETAL: Extremities without clubbing, cyanosis, or edema. NEUROLOGICAL: Awake and alert, oriented to self only. Motor and sensory grossly within normal limits. Moving all 4 extremities. Normal speech. PSYCHIATRIC: Irritable mood and affect; awakened for exam; episodic confusion Results - Labs CBC & Chem 7: 06/06/18 16:26 06/06/18 16:26 Laboratory Results - last 24 hr 06/06/18 06/06/18 06/07/18 16:26 16:26 06:53 WBC 4.2 RBC 3.66 L Hgb 10.5 L Hct 32.2 L MCV 88.2 MCH 28.8 MCHC 32.6 RDW 13.5 Plt Count 148 L D MPV 7.4 Neut % (Auto) 42.7 Lymph % (Auto) 43.4 Beckham % (Auto) 11.6 H Eos % (Auto) 2.0 Baso % (Auto) 0.3 Neut # (Auto) 1.8 Lymph # (Auto) 1.8 Beckham # (Auto) 0.5 Eos # (Auto) 0.1 Baso # (Auto) 0.0 WBC Differential . Differential Comment Auto diff final Sodium 139 Potassium 3.9 Chloride 104 Carbon Dioxide 28.9 Anion Gap 6 BUN 22 H Creatinine 1.04 Estimated GFR 72 L Random Glucose 100 Calcium 8.6 Ammonia 56 H - Imaging Impressions Chest X-Ray 06/06/18 00:00 CONCLUSION: Minimal basilar atelectasis. Assessment and Plan - Assessment (1) PTSD (post-traumatic stress disorder) Code(s): F43.10 - Post-traumatic stress disorder, unspecified Status: Acute (2) Major depressive disorder, recurrent, severe w/o psychotic behavior Code(s): F33.2 - Major depressive disorder, recurrent severe without psychotic features Status: Acute (3) Acute psychosis Code(s): F23 - Brief psychotic disorder Status: Acute (4) Post-traumatic stress disorder Code(s): F43.10 - Post-traumatic stress disorder, unspecified Status: Acute (5) Seizure Code(s): R56.9 - Unspecified convulsions Status: Acute - Plan Mr. Peters is a 62-year-old male with past medical history significant for bipolar disorder, seizures, gout, chronic pain, COPD, hypertension, hyperlipidemia, chronic alcoholic pancreatitis, and hepatitis B and C who was has had a lengthy admission for inpatient psychiatric care since 03/15/2018 with complications including pneumonia and most recently seizures with hypotension resulting in transfer to the main hospital for evaluation and management. He was transferred back to the medical psychiatric unit on 06/04/2018. [facility] Hospitalist were consulted to assist with medical management. Seizures -Seizure precautions as needed -Neuro checks and Vital Signs every 4 hours for now -Continue antiepileptic medications including Keppra and Depakote -Repeat labs in a.m. and follow results Hepatic Encephalopathy -ammonia level 56, patient with confusion/drowsiness on exam -continue lactulose bid for now Hyperlipidemia/Hypothyroidism -chronic, stable -Continue Lipitor 10 qhs and Levothyroxine 50 mcq qam -Monitor thyroid functions - TSH 1.78 with Free T4 low at 0.61 -Synthroid was increased on 05/20 - recheck labs in 6 - 8 weeks -Monitor lipids and LFT q6 months - last checked 03/17/18 PTSD/acute psychosis -Management by psychiatric team Chronic pain -Continue baclofen 15 mg p.o. q8h, continue gabapentin 100 mg p.o. tid, continue lidocaine patch, and add pain indication to PRN Acetaminophen order -monitor/evaluate effectiveness -avoid oversedation Respiratory decompensation, decline in O2 sat Likely related to oversedation -Psych medication adjusted with psychiatry -Chest x-ray ordered: No significant effusion or pneumothorax -DuoNeb treatments ordered scheduled and as needed -PRN O2 via nasal cannula to keep sats greater than 90% -improving Anemia, Likely acute on chronic -No reports of bleeding -Monitor CBC DVT prophylaxis -Lovenox 40 mg subcu every 24 hours
--- NOTE | 2018-06-07 15:05 | P.TTN ---
- Patient Problems Problems: 1. Discharge planning 2. Medication compliance 3. Knowledge deficit 4. Lack of coping skills - Progress Toward Goals Provider Present: Dr. Greta Sam Provider Input: 06/06/2018; patient's medication are being adjusted, patient was recently transferred to medical and sent back to [facility] to continue care. Nurse(s) Present: RN Nurse Input: 06/06/2018; patient is taking his medication and eating meals require coaching and prompting with care. Psychiatric Counselors Present: JUAREZ Alan Psychiatric Therapist Input: 06/06/2018; patient's dc planning will be with an appropriate long-term or ASSISTED, when accepted. [facility] Spec/RT/OT/DYER Present: Lionel Benson OT Group Spec/RT/OT/DYER Input: 06/06/2018; patient lacks current ability to participate with activities, however he will be encouarged to do so when able. - Documentation Teaching Recipient: Patient
--- NOTE | 2018-06-07 16:24 | P.PNPSY ---
Subjective Chief Complaint: "I feel like shit" Remarks: Patient seen for follow-up, chart reviewed. Discussion with nursing staff reported that patient has required, no orthostasis, continue with baseline confusion, refused medications this morning. Patient was found lying hospital bed able to wake up and engage in interview but noted to be overly sedated denying any shortness of breath reporting some pain but was able to elaborate where. Patient with significant hearing impairment and would get frustrated plan continue to attempt to speak with patient. Patient seen by hospitalist and continues to be monitored for low O2 sats as well as for recent hypotension and seizures. Review of Systems All other systems reviewed negative except as stated in HPI Mental Status Examination Appearance: Appropriate Consciousness: Alert Orientation: x4 Motor Activity: Abnormal gait (uses walker) Speech: Unremarkable Language: Adequate Fund of Knowledge: Adequate Attention and Concentration: Adequate Memory: Impaired (mild) Mood: Irritable (Slightly) Affect: Irritable (Slightly) Thought Process & Associations: Intact Thought Content: Obsessions Hallucination Type: None Delusion Type: None Suicidal Ideation: No Suicidal Plan: No Suicidal Intention: No Homicidal Ideation: No Homicidal Plan: No Homicidal Intention: No Insight: Poor Judgment: Poor Assessment and Plan - Assessment (1) Bipolar disorder current episode depressed Code(s): F31.30 - Bipolar disorder, current episode depressed, mild or moderate severity, unspecified Status: Acute (2) PTSD (post-traumatic stress disorder) Code(s): F43.10 - Post-traumatic stress disorder, unspecified Status: Acute - Plan Plan: Patient continues with baseline confusion, has been refusing medications recently, refused medications this morning and able to engage in interview today but with very concrete responses, continues to have difficulty in communication due to significant hearing impairment. Patient will be slightly irritable but not agitated or belligerent. We will continue current treatment. Continue to monitor mood and behavior. Continue to monitor O2 sats and vitals. Hospitalist input appreciated. Discharge planning a progress. Justification for Continued Inpatient Stay: At risk of further decompensation at lower level care.
[2018-06-07] MEDS: Acetaminophen 325 MG Tablet PO PRN (20:23)
[2018-06-07] MEDS: Lidocaine 5% Patch T-DERMAL SCH (20:24)
[2018-06-08] MEDS: Baclofen 10 MG Tablet PO SCH ×4 (03:50→23:55)
[2018-06-08] MEDS: levETIRAcetam 250 MG Tablet PO SCH ×2 (10:10→20:22)
[2018-06-08] MEDS: Divalproex 500 MG DR Tablet PO SCH ×2 (10:10→20:22)
[2018-06-08] MEDS: Enoxaparin Inj 40 MG/0.4 ML Syringe SQ SCH (10:10)
[2018-06-08] MEDS: Sertraline 100 MG Tablet PO SCH (10:10)
[2018-06-08] MEDS: Lactobacillus Acidophilus/L. Spores Tablet PO SCH (10:10)
[2018-06-08] MEDS: Gabapentin 100 MG Capsule PO SCH ×3 (10:10→18:23)
[2018-06-08] MEDS: Levothyroxine 50 MCG Tablet PO SCH (11:51)
[2018-06-08] MEDS: Calcium Carbonate 500 MG Tablet PO SCH ×2 (11:54→20:24)
--- NOTE | 2018-06-08 16:12 | XR ---
EXAM DATE: 06/08/2018 12:00 AM EDT AGE/SEX: 62 years / Male INDICATIONS: Left shoulder pain, unknown injury. CLINICAL DATA: This is the patient's initial encounter. Patient reports that signs and symptoms have been present for 1 day and indicates a pain score of Nonresponsive. MEDICAL/SURGICAL HISTORY: Non-responsive. Non-responsive. COMPARISON: No prior exams available for comparison. FINDINGS: Bony structures are intact and in normal alignment. Joints are intact without dislocation or signifi cant arthropathy. Osseous density is normal. Soft tissues are unremarkable. No radiopaque foreign bodies seen. CONCLUSION: Unremarkable exam. Electronically signed by: Wade Butler MD 06/08/2018 4:10 PM EDT
--- NOTE | 2018-06-08 16:18 | XR ---
EXAM DATE: 06/08/2018 12:00 AM EDT AGE/SEX: 62 years / Male INDICATIONS: Left hip pain with no known injury. CLINICAL DATA: This is the patient's initial encounter. Patient reports that signs and symptoms have been present for 1 day and indicates a pain score of Nonresponsive. MEDICAL/SURGICAL HISTORY: Non-responsive. Non-responsive. COMPARISON: [facility] – [place], [place], HIP LEFT 2V, 03/26/2018. . FINDINGS: Today's exam is compared to the prior study. There is evidence of previous internal fixation of the p roximal left femur with [address]. No acute fracture or joint dislocation is demonstrated. Th e hardware is grossly intact. There has been no new or significant changes compared to the prior exam ination. CONCLUSION: Stable plain films of the proximal left femur compared to the prior examination. No acute fracture or joint dislocation. Electronically signed by: Wade Butler MD 06/08/2018 4:17 PM EDT
--- NOTE | 2018-06-08 16:19 | P.PN ---
Subjective Interval history: Follow up seizure like activity, hypotension, bipolar disorder, seizures, gout, chronic pain, COPD, hypertension, hyperlipidemia, chronic alcoholic pancreatitis , and hepatitis B and C. The patient is seen ambulating the hallway with his walker. Difficult to redirect conversation. He denies any abdominal complains although he states he did not eat much for breakfast. RN reports intermittently increased confusion. No other concerns. Physical Exam Vital signs: Vital Signs 06/07/18 17:00 06/07/18 17:50 06/07/18 20:42 Temperature 99.8 F H Pulse Rate 71 Respiratory Rate 16 18 Blood Pressure 122/61 Pulse Oximetry 91 L 91 L 06/08/18 05:24 06/08/18 11:30 06/08/18 13:30 Temperature 96.8 F L 98.7 F 98.7 F Pulse Rate 110 H 72 64 Respiratory Rate 18 18 16 Blood Pressure 118/80 119/73 118/68 Pulse Oximetry 94 L 93 L 93 L Intake & Output 06/07/18 06/08/18 06/08/18 18:59 06:59 18:59 Intake Total 1080 / 1080 480 / 480 480 / 480 Balance 1080 / 1080 480 / 480 480 / 480 Intake: Oral 1080 / 1080 480 / 480 480 / 480 Other: # Voids 3 2 Date of Last Bowel Movement 06/05/18 06/05/18 06/05/18 Narrative: GENERAL: Well developed, disheveled male patient in [facility]. Appears comfortable. Ambulating the hallway with walker. SKIN: Skin is warm and dry. HEENT: Atraumatic. Normocephalic. Pupils equal and round. No scleral icterus. No injection or drainage. [place]. Poor dentition. CARDIOVASCULAR: Regular rate and rhythm. No murmur appreciated. RESPIRATORY: Clear to auscultation. Breath sounds equal bilaterally. GASTROINTESTINAL: Abdomen obese, soft, non-tender, nondistended. Normoactive bowel sounds x4. MUSCULOSKELETAL: Extremities without clubbing, cyanosis, or edema. NEUROLOGICAL: Awake and alert, oriented to self only. Motor and sensory grossly within normal limits. Moving all 4 extremities. Normal speech. PSYCHIATRIC: Irritable mood and affect; intermittent confusion Results - Labs CBC & Chem 7: 06/06/18 16:26 06/06/18 16:26 - Imaging Impressions Hip X-Ray 06/08/18 00:00 CONCLUSION: Stable plain films of the proximal left femur compared to the prior examination. No acute fracture or joint dislocation. Shoulder X-Ray 06/08/18 00:00 CONCLUSION: Unremarkable exam. Assessment and Plan - Assessment (1) PTSD (post-traumatic stress disorder) Code(s): F43.10 - Post-traumatic stress disorder, unspecified Status: Acute (2) Major depressive disorder, recurrent, severe w/o psychotic behavior Code(s): F33.2 - Major depressive disorder, recurrent severe without psychotic features Status: Acute (3) Acute psychosis Code(s): F23 - Brief psychotic disorder Status: Acute (4) Post-traumatic stress disorder Code(s): F43.10 - Post-traumatic stress disorder, unspecified Status: Acute (5) Seizure Code(s): R56.9 - Unspecified convulsions Status: Acute - Plan Mr. Peters is a 62-year-old male with past medical history significant for bipolar disorder, seizures, gout, chronic pain, COPD, hypertension, hyperlipidemia, chronic alcoholic pancreatitis, and hepatitis B and C who was has had a lengthy admission for inpatient psychiatric care since 03/15/2018 with complications including pneumonia and most recently seizures with hypotension resulting in transfer to the main hospital for evaluation and management. He was transferred back to the medical psychiatric unit on 06/04/2018. [facility] Hospitalist were consulted to assist with medical management. Seizures -Seizure precautions as needed -Neuro checks and Vital Signs every 4 hours for now -Continue antiepileptic medications including Keppra and Depakote -Repeat labs in a.m. and follow results, still pending Hepatic Encephalopathy -ammonia level 56, patient with confusion/drowsiness on exam intermittently -continue lactulose bid for now Hyperlipidemia/Hypothyroidism -chronic, stable -Continue Lipitor 10 qhs and Levothyroxine 50 mcq qam -Monitor thyroid functions - TSH 1.78 with Free T4 low at 0.61 -Synthroid was increased on 05/20 - recheck labs in 6 - 8 weeks -Monitor lipids and LFT q6 months - last checked 03/17/18 PTSD/acute psychosis -Management by psychiatric team Chronic pain -Continue baclofen 15 mg p.o. q8h, continue gabapentin 100 mg p.o. tid, continue lidocaine patch, and add pain indication to PRN Acetaminophen order -monitor/evaluate effectiveness -avoid oversedation Respiratory decompensation, decline in O2 sat Likely related to oversedation -Psych medication adjusted with psychiatry -Chest x-ray ordered: No significant effusion or pneumothorax -DuoNeb treatments ordered scheduled and as needed -PRN O2 via nasal cannula to keep sats greater than 90% -improving Anemia, Likely acute on chronic -No reports of bleeding -Monitor CBC DVT prophylaxis -Lovenox 40 mg subcu every 24 hours
[2018-06-08] MEDS: Lidocaine 5% Patch T-DERMAL SCH (20:23)
--- NOTE | 2018-06-08 21:57 | P.PNPSY ---
Subjective Chief Complaint: "I feel like shit" Remarks: Patient seen for follow-up, chart reviewed. Discussion with nursing staff reported that patient restless at night confused but took medications last evening. Patient was found lying hospital bed asleep was able to interact concretely and superficially with interview today. Patient states he is feeling okay denying any physical planes at this time denies any chest pain or shortness of breath. Patient continues with baseline confusion. Patient was encouraged to comply with treatment. Review of Systems All other systems reviewed negative except as stated in HPI Mental Status Examination Appearance: Appropriate Consciousness: Alert Orientation: x4 Motor Activity: Abnormal gait (uses walker) Speech: Unremarkable Language: Adequate Fund of Knowledge: Adequate Attention and Concentration: Adequate Memory: Impaired (mild) Mood: Irritable (Slightly) Affect: Irritable (Slightly) Thought Process & Associations: Intact Thought Content: Obsessions Hallucination Type: None Delusion Type: None Suicidal Ideation: No Suicidal Plan: No Suicidal Intention: No Homicidal Ideation: No Homicidal Plan: No Homicidal Intention: No Insight: Poor Judgment: Poor Assessment and Plan - Assessment (1) Bipolar disorder current episode depressed Code(s): F31.30 - Bipolar disorder, current episode depressed, mild or moderate severity, unspecified Status: Acute (2) PTSD (post-traumatic stress disorder) Code(s): F43.10 - Post-traumatic stress disorder, unspecified Status: Acute - Plan Plan: Patient continues with confusion at times, mostly concrete responses, can be irritable at times but mostly redirectable. We will continue to monitor vitals as well as any further episodes of hypotension or low O2 sats. We will continue current treatment. Continue recommendations as per prior medical team. Discharge planning a progress. Justification for Continued Inpatient Stay: At risk of further decompensation at lower level care.
[2018-06-09] MEDS: Levothyroxine 50 MCG Tablet PO SCH (06:20)
[2018-06-09] MEDS: levETIRAcetam 250 MG Tablet PO SCH ×2 (09:40→21:00)
[2018-06-09] MEDS: Gabapentin 100 MG Capsule PO SCH ×3 (09:41→18:10)
[2018-06-09] MEDS: Baclofen 10 MG Tablet PO SCH ×2 (09:41→16:55)
[2018-06-09] MEDS: Sertraline 100 MG Tablet PO SCH (09:41)
[2018-06-09] MEDS: Divalproex 500 MG DR Tablet PO SCH ×2 (09:42→21:00)
[2018-06-09] MEDS: Lactobacillus Acidophilus/L. Spores Tablet PO SCH (09:42)
[2018-06-09] MEDS: Enoxaparin Inj 40 MG/0.4 ML Syringe SQ SCH (09:42)
[2018-06-09] MEDS: Calcium Carbonate 500 MG Tablet PO SCH ×2 (09:42→21:00)
[2018-06-09] MEDS ORDERED: Haloperidol Inj 5 MG/ML Ampul ONE (12:51)
--- NOTE | 2018-06-09 12:59 | P.PN ---
Subjective Interval history: Follow up seizure like activity, hypotension, bipolar disorder, seizures, gout, chronic pain, COPD, hypertension, hyperlipidemia, chronic alcoholic pancreatitis , and hepatitis B and C. The patient is seen resting in bed. He has no medical complaints including no headache, lightheadedness, chest pain, shortness of breath, or abdominal complaints. He states he is saving his PB&J sandwich for later. Discussed with RN, patient's confusion/agitation continues to wax/wane. Awaiting labs that were ordered yesterday. Physical Exam Vital signs: Vital Signs 06/08/18 13:30 06/08/18 16:00 Temperature 98.7 F 97.8 F Pulse Rate 64 73 Respiratory Rate 16 17 Blood Pressure 118/68 106/72 Pulse Oximetry 93 L 93 L Intake & Output 06/08/18 06/09/18 06/09/18 18:59 06:59 18:59 Intake Total 1440 / 1440 720 / 720 240 / 240 Balance 1440 / 1440 720 / 720 240 / 240 Weight 83.2 kg Intake: Oral 1440 / 1440 720 / 720 240 / 240 Other: # Voids 3 2 Date of Last Bowel Movement 06/05/18 06/05/18 Narrative: GENERAL: Well developed, disheveled male patient in [facility]. Appears comfortable. SKIN: Skin is warm and dry. HEENT: Atraumatic. Normocephalic. Pupils equal and round. No scleral icterus. No injection or drainage. [place]. Poor dentition. CARDIOVASCULAR: Regular rate and rhythm. No murmur appreciated. RESPIRATORY: No accessory muscle use. Clear to auscultation. Breath sounds equal bilaterally. GASTROINTESTINAL: Abdomen obese, soft, non-tender, nondistended. Normoactive bowel sounds x4. MUSCULOSKELETAL: Extremities without clubbing, cyanosis, or edema. NEUROLOGICAL: Awake and alert, oriented to self only. Motor and sensory grossly within normal limits. Moving all 4 extremities. Normal speech. PSYCHIATRIC: Currently calm mood and affect; awakened for exam; intermittent confusion Results - Labs CBC & Chem 7: 06/06/18 16:26 06/06/18 16:26 - Imaging Impressions Hip X-Ray 06/08/18 00:00 CONCLUSION: Stable plain films of the proximal left femur compared to the prior examination. No acute fracture or joint dislocation. Shoulder X-Ray 06/08/18 00:00 CONCLUSION: Unremarkable exam. Assessment and Plan - Assessment (1) PTSD (post-traumatic stress disorder) Code(s): F43.10 - Post-traumatic stress disorder, unspecified Status: Acute (2) Major depressive disorder, recurrent, severe w/o psychotic behavior Code(s): F33.2 - Major depressive disorder, recurrent severe without psychotic features Status: Acute (3) Acute psychosis Code(s): F23 - Brief psychotic disorder Status: Acute (4) Post-traumatic stress disorder Code(s): F43.10 - Post-traumatic stress disorder, unspecified Status: Acute (5) Seizure Code(s): R56.9 - Unspecified convulsions Status: Acute - Plan Mr. Peters is a 62-year-old male with past medical history significant for bipolar disorder, seizures, gout, chronic pain, COPD, hypertension, hyperlipidemia, chronic alcoholic pancreatitis, and hepatitis B and C who was has had a lengthy admission for inpatient psychiatric care since 03/15/2018 with complications including pneumonia and most recently seizures with hypotension resulting in transfer to the main hospital for evaluation and management. He was transferred back to the medical psychiatric [facility]2018[facility]. Seizures -Seizure precautions as needed -Neuro checks and Vital Signs every 4 hours for now -Continue antiepileptic medications including Keppra and Depakote -Repeat labs in a.m. and follow results, still pending, discussed with RN Hepatic Encephalopathy -ammonia level 56, patient with confusion/drowsiness on exam intermittently -continue lactulose bid for now -repeat ammonia level pending Hyperlipidemia/Hypothyroidism -chronic, stable -Continue Lipitor 10 qhs and Levothyroxine 50 mcq qam -Monitor thyroid functions - TSH 1.78 with Free T4 low at 0.61 -Synthroid was increased on 05/20 - recheck labs in 6 - 8 weeks -Monitor lipids and LFT q6 months - last checked 03/17/18 PTSD/acute psychosis -Management by psychiatric team Chronic pain -Continue baclofen 15 mg p.o. q8h, continue gabapentin 100 mg p.o. tid, continue lidocaine patch, and add pain indication to PRN Acetaminophen order -monitor/evaluate effectiveness -avoid oversedation Respiratory decompensation, decline in O2 sat Likely related to oversedation -Psych medication adjusted with psychiatry -Chest x-ray ordered: No significant effusion or pneumothorax -DuoNeb treatments ordered scheduled and as needed -PRN O2 via nasal cannula to keep sats greater than 90% -improving Anemia, Likely acute on chronic -No reports of bleeding -Monitor CBC DVT prophylaxis -Lovenox 40 mg subcu every 24 hours
[2018-06-09 14:22] LABS: Baso % (Auto) 0.2 % (0.0-2.0); Eos # (Auto) 0.1 th/mm3 (0.0-0.4); Eos % (Auto) 1.6 % (0.0-4.0); Hematocrit 31.6 % (39.0-51.0); Hemoglobin 11.3 gm/dL (13.0-17.0); Lymph # (Auto) 2.1 th/mm3 (1.0-4.8); Mean Corpuscular HGB Conc 35.7 % (32.0-36.0); Mean Corpuscular Volume 86.7 fL (80.0-100.0); Mean Platelet Volume 7.4 fL (7.0-11.0); Mono # (Auto) 0.5 th/mm3 (0.0-0.9); Mono % (Auto) 9.8 % (0.0-8.0); Neut # (Auto) 2.4 th/mm3 (1.8-7.7); Neut % (Auto) 47.4 % (16.0-70.0); Platelet Count 158 th/mm3 (150-450); Red Blood Count 3.64 mil/mm3 (4.50-5.90); Red Cell Distribution Width 13.5 % (11.6-17.2); White Blood Count 5.1 th/mm3 (4.0-11.0)
[2018-06-09 14:57] LABS: Anion Gap 9 meq/L (5-15); Aspartate Aminotransferase 29 U/L (15-37); Blood Urea Nitrogen 22 mg/dL (7-18); Carbon Dioxide 27.2 meq/L (21.0-32.0); Chloride 103 meq/L (98-107); Glomerular Filtration Rate 55 mL/min (>89); Glucose,Random 91 mg/dL (74-106); Potassium 4.1 meq/L (3.5-5.1); Sodium 139 meq/L (136-145)
[2018-06-09 14:58] LABS: Alanine Aminotransferase 21 U/L (12-78); Iron 66 mcg/dL (65-175)
[2018-06-09 15:23] LABS: % Iron Saturation 20.1 % (20-50); Alkaline Phosphatase 59 U/L (45-117); Ferritin 269 ng/mL (26-388); Total Iron Binding Capacity 329 mcg/dL (250-450); Vitamin B12 906 pg/mL (193-986)
--- NOTE | 2018-06-09 16:05 | P.PNPSY ---
Subjective Chief Complaint: "I feel like shit" Remarks: Patient seen for follow-up, chart reviewed. Discussion with nursing staff reported that patient at 1 AM was upset and had pushed straight in his room and was provided with Ativan 1 mg IM, refuse medication less evening. Patient was found lying hospital bed asleep was able to wake up superficially to interact with interview continues to be noted to be confused, denying any physical complaints at this time. Patient later was up and interacting with staff and began to become agitated and belligerent with staff and nursing station which patient required ETO of Haldol 5 mg IM/Ativan 1 mg a.m. Review of Systems All other systems reviewed negative except as stated in HPI Mental Status Examination Appearance: Appropriate Consciousness: Alert Orientation: x4 Motor Activity: Abnormal gait (uses walker) Speech: Unremarkable Language: Adequate Fund of Knowledge: Adequate Attention and Concentration: Adequate Memory: Impaired (mild) Mood: Irritable (Slightly) Affect: Irritable (Slightly) Thought Process & Associations: Intact Thought Content: Obsessions Hallucination Type: None Delusion Type: None Suicidal Ideation: No Suicidal Plan: No Suicidal Intention: No Homicidal Ideation: No Homicidal Plan: No Homicidal Intention: No Insight: Poor Judgment: Poor Assessment and Plan - Assessment (1) Bipolar disorder current episode depressed Code(s): F31.30 - Bipolar disorder, current episode depressed, mild or moderate severity, unspecified Status: Acute (2) PTSD (post-traumatic stress disorder) Code(s): F43.10 - Post-traumatic stress disorder, unspecified Status: Acute - Plan Plan: Patient continues with episodes of confusion, agitated today and received ETO x 1. Continue recommendations as per primary medical team. Continue current treatment continue to monitor mood and behavior. Discharge planning in progress. Justification for Continued Inpatient Stay: At risk for further decompensation at lower level of care.
[2018-06-09] MEDS: Lidocaine 5% Patch T-DERMAL SCH (21:01)
[2018-06-10] MEDS: Baclofen 10 MG Tablet PO SCH ×2 (00:47→09:49)
[2018-06-10] MEDS: Levothyroxine 50 MCG Tablet PO SCH (06:05)
[2018-06-10] MEDS: Sertraline 100 MG Tablet PO SCH (09:49)
[2018-06-10] MEDS: levETIRAcetam 250 MG Tablet PO SCH ×2 (09:50→20:16)
[2018-06-10] MEDS: Calcium Carbonate 500 MG Tablet PO SCH ×2 (09:50→20:16)
[2018-06-10] MEDS: Gabapentin 100 MG Capsule PO SCH ×2 (09:50→15:01)
[2018-06-10] MEDS: Enoxaparin Inj 40 MG/0.4 ML Syringe SQ SCH (09:50)
[2018-06-10] MEDS: Divalproex 500 MG DR Tablet PO SCH ×2 (09:51→20:16)
--- NOTE | 2018-06-10 18:35 | P.PNIM ---
Subjective Interval history: Follow up seizure like activity, hypotension, bipolar disorder, seizures, gout, chronic pain, COPD, hypertension, hyperlipidemia, chronic alcoholic pancreatitis , and hepatitis B and C. Patient seen and examined resting in bed, sleeping, awakened for assessment responds to question appropriately however very hard of hearing. Patient denies any headache or dizziness, denies any chest pain or shortness of breath. Complaint of pain on the left hip where he is laying on, however able to move extremities stated relieved with movement and pain medication.. Patient denies any abdominal pain, nausea, vomiting, diarrhea or constipation. Patient denies any fever or chills. Nurse reported patient refused blood drawn this morning for ammonia level Physical Exam Vital signs: Vital Signs 06/10/18 05:18 06/10/18 17:49 Temperature 97.7 F 99.2 F Pulse Rate 66 76 Respiratory Rate 16 17 Blood Pressure 112/77 95/63 L Pulse Oximetry 92 L 91 L Intake & Output 06/09/18 06/10/18 06/10/18 18:59 06:59 18:59 Intake Total 960 / 960 300 / 300 2400 / 2400 Balance 960 / 960 300 / 300 2400 / 2400 Intake: Oral 960 / 960 300 / 300 2400 / 2400 Other: # Voids 1 Date of Last Bowel Movement 06/05/18 Narrative: GENERAL: Well-developed, disheveled male, laying in bed, in no apparent distress SKIN: Warm and dry. HEAD: Atraumatic. Normocephalic. EYES: Pupils equal and round. No scleral icterus. No injection or drainage. ENT: No nasal bleeding or discharge. Mucous membranes pink and moist. Poor dentition. Very hard of hearing NECK: Trachea midline. No JVD. CARDIOVASCULAR: Regular rate and rhythm. RESPIRATORY: No accessory muscle use. Clear to auscultation. Breath sounds equal bilaterally. GASTROINTESTINAL: Abdomen obese, soft, non-tender, nondistended. Hepatic and splenic margins not palpable. MUSCULOSKELETAL: Extremities without clubbing, cyanosis, or edema. No obvious deformities. NEUROLOGICAL: Awake and alert and oriented x2. No obvious cranial nerve deficits. Motor grossly within normal limits. Moving all 4 extremities normal speech. PSYCHIATRIC: Flat mood and affect; insight and judgment poor, with intermittent confusion Results - Labs CBC & Chem 7: 06/09/18 13:57 06/09/18 13:57 Assessment and Plan - Assessment (1) PTSD (post-traumatic stress disorder) Code(s): F43.10 - Post-traumatic stress disorder, unspecified Status: Acute (2) Major depressive disorder, recurrent, severe w/o psychotic behavior Code(s): F33.2 - Major depressive disorder, recurrent severe without psychotic features Status: Acute (3) Acute psychosis Code(s): F23 - Brief psychotic disorder Status: Acute (4) Post-traumatic stress disorder Code(s): F43.10 - Post-traumatic stress disorder, unspecified Status: Acute (5) Seizure Code(s): R56.9 - Unspecified convulsions Status: Acute - Plan Mr. Peters is a 62-year-old male with past medical history significant for bipolar disorder, seizures, gout, chronic pain, COPD, hypertension, hyperlipidemia, chronic alcoholic pancreatitis, and hepatitis B and C who was has had a lengthy admission for inpatient psychiatric care since 03/15/2018 with complications including pneumonia and most recently seizures with hypotension resulting in transfer to the main hospital for evaluation and management. He was transferred back to the medical psychiatric unit on 06/04/2018. [facility]ist were consulted to assist with medical management. Seizures -Seizure precautions as needed -Neuro checks and Vital Signs every 4 hours for now -Restart antiepileptic medications including Keppra and Depakote -Repeat labs in a.m. and follow results Hepatic Encephalopathy -ammonia level 56, patient with confusion/drowsiness on exam intermittently -Patient refused blood drawn this morning, repeat ammonia level trending from 56 down to 49 -Increase lactulose 3 times daily -Adjust lactulose dose accordingly -Recheck ammonia level in the morning AK I, acute Creatinine 1.32 -Encourage increase fluid intake -Monitor BMP -If continued to worsen may need IV fluid if patient unable to take p.o. fluid Hyperlipidemia Hypothyroidism - Continue Lipitor 10 qhs and Levothyroxine 50 mcq qam -Monitor thyroid functions - TSH 1.78 with Free T4 low at 0.61, Synthroid was increased on 05/20 - recheck labs in 6 - 8 weeks -Monitor lipids and LFT q6 months - last checked 03/17/18 Chronic pain/left hip pain -Continue baclofen 15 mg p.o. every 8 hours, -continue gabapentin 100 mg p.o. 3 times daily, -continue lidocaine patch, and add pain indication to PRN ---Acetaminophen order - monitor/evaluate effectiveness -X-ray left hip on 06/08 no fracture or joint dislocation -order PT rehab per protocol to increase ambulation Respiratory decompensation, decline in O2 sat Likely related to over sedation -Psych medication adjusted with psychiatry -Chest x-ray ordered: No significant effusion or pneumothorax -DuoNeb treatments ordered scheduled and as needed -PRN O2 via nasal cannula to keep sats greater than 90%, right now SPO2 94% in 2 L nasal cannula -No shortness of shortness of breath at this time, 92% in room air -Monitor respiratory status Anemia, Likely acute on chronic Likely assess side effects of medications -Monitor CBC PTSD/acute psychosis -Management by psychiatric team DVT prophylaxis -Lovenox 40 mg subcu every 24 hours Code Status: Full code Discussed Condition With: Patient and nurse
--- NOTE | 2018-06-10 19:46 | P.PNPSY ---
Subjective Chief Complaint: "I feel like shit" Remarks: Patient seen for follow-up, chart reviewed. Discussion with nursing staff reported that patient patient receive ETO yesterday afternoon and continued patient last evening. Patient was found at nurse's station noted B, cooperative and pleasant asking for snacks and juice and was able to ambulate back to his room with a walker and continue with pleasant conversation. Patient denies any physical complaints states that he is willing to comply with care and compliant with medication regimen. Review of Systems All other systems reviewed negative except as stated in HPI Mental Status Examination Appearance: Appropriate Consciousness: Alert Orientation: x4 Motor Activity: Abnormal gait (uses walker) Speech: Unremarkable Language: Adequate Fund of Knowledge: Adequate Attention and Concentration: Adequate Memory: Impaired (mild) Mood: Appropriate Affect: Appropriate Thought Process & Associations: Intact Thought Content: Appropriate Hallucination Type: None Delusion Type: None Suicidal Ideation: No Suicidal Plan: No Suicidal Intention: No Homicidal Ideation: No Homicidal Plan: No Homicidal Intention: No Insight: Poor Judgment: Poor Assessment and Plan - Assessment (1) Bipolar disorder current episode depressed Code(s): F31.30 - Bipolar disorder, current episode depressed, mild or moderate severity, unspecified Status: Acute (2) PTSD (post-traumatic stress disorder) Code(s): F43.10 - Post-traumatic stress disorder, unspecified Status: Acute - Plan Plan: Patient this time noted to be good spirits compliant medication and pleasant cooperative. Continue to monitor vitals. Continue current treatment. Continue to monitor mood and behavior. Discharge planning in progress. Justification for Continued Inpatient Stay: At risk of further decompensation at lower level care.
[2018-06-10] MEDS: Lidocaine 5% Patch T-DERMAL SCH (20:16)
--- NOTE | 2018-06-10 21:54 | P.PN ---
Subjective Interval history: NOT seen Physical Exam Vital signs: Vital Signs 06/10/18 05:18 06/10/18 17:49 Temperature 97.7 F 99.2 F Pulse Rate 66 76 Respiratory Rate 16 17 Blood Pressure 112/77 95/63 L Pulse Oximetry 92 L 91 L Intake & Output 06/10/18 06/10/18 06/11/18 06:59 18:59 06:59 Intake Total 300 / 300 2400 / 2400 Balance 300 / 300 2400 / 2400 Intake: Oral 300 / 300 2400 / 2400 Narrative: GENERAL: Well-developed, disheveled male, laying in bed, in no apparent distress SKIN: Warm and dry. CARDIOVASCULAR: Regular rate and rhythm. RESPIRATORY: No accessory muscle use. Clear to auscultation. Breath sounds equal bilaterally. GASTROINTESTINAL: Abdomen obese, soft, non-tender, nondistended. MUSCULOSKELETAL: Extremities without clubbing, cyanosis, or edema. No obvious deformities. NEUROLOGICAL: Awake and alert and oriented x2. No obvious cranial nerve deficits. Motor grossly within normal limits. Moving all 4 extremities normal speech. PSYCHIATRIC: Flat mood and affect; insight and judgment poor, with intermittent confusion Results - Labs CBC & Chem 7: 06/09/18 13:57 06/09/18 13:57 Laboratory Results - last 24 hr 06/10/18 20:29 Ammonia 47 H - Imaging ITS Impressions Chest X-Ray 06/06/18 00:00 CONCLUSION: Minimal basilar atelectasis. Hip X-Ray 06/08/18 00:00 CONCLUSION: Stable plain films of the proximal left femur compared to the prior examination. No acute fracture or joint dislocation. Shoulder X-Ray 06/08/18 00:00 CONCLUSION: Unremarkable exam. Assessment and Plan - Assessment (1) PTSD (post-traumatic stress disorder) Code(s): F43.10 - Post-traumatic stress disorder, unspecified Status: Acute (2) Major depressive disorder, recurrent, severe w/o psychotic behavior Code(s): F33.2 - Major depressive disorder, recurrent severe without psychotic features Status: Acute (3) Acute psychosis Code(s): F23 - Brief psychotic disorder Status: Acute (4) Post-traumatic stress disorder Code(s): F43.10 - Post-traumatic stress disorder, unspecified Status: Acute (5) Seizure Code(s): R56.9 - Unspecified convulsions Status: Acute - Plan Mr. Peters is a 62-year-old male with past medical history significant for bipolar disorder, seizures, gout, chronic pain, COPD, hypertension, hyperlipidemia, chronic alcoholic pancreatitis, and hepatitis B and C who was has had a lengthy admission for inpatient psychiatric care since 03/15/2018 with complications including pneumonia and most recently seizures with hypotension resulting in transfer to the main hospital for evaluation and management. He was transferred back to the medical psychiatric unit on 06[facility]04/2018[facility]. Seizures -Seizure precautions as needed -Neuro checks and Vital Signs every 4 hours for now -Restart antiepileptic medications including Keppra and Depakote -Repeat labs in a.m. and follow results Hepatic Encephalopathy -ammonia level 56, patient with confusion/drowsiness on exam intermittently -Patient refused blood drawn this morning, repeat ammonia level trending from 56 down to 49 -Increase lactulose 3 times daily -Adjust lactulose dose accordingly -Recheck ammonia level in the morning QUINCY, acute Creatinine 1.32 -Encourage increase fluid intake -Monitor BMP -If continued to worsen may need IV fluid or if patient unable to take p.o. fluid Hyperlipidemia Hypothyroidism - Continue Lipitor 10 qhs and Levothyroxine 50 mcq qam -Monitor thyroid functions - TSH 1.78 with Free T4 low at 0.61, Synthroid was increased on 05/20 - recheck labs in 6 - 8 weeks -Monitor lipids and LFT q6 months - last checked 03/17/18 Chronic pain/left hip pain -Continue baclofen 15 mg p.o. every 8 hours, -continue gabapentin 100 mg p.o. 3 times daily, -continue lidocaine patch, prn Acetaminophen -X-ray left hip on 06/08 no fracture or joint dislocation -order PT rehab per protocol to increase ambulation Respiratory decompensation, decline in O2 sat Likely related to over sedation -Psych medication adjusted with psychiatry -Chest x-ray ordered: No significant effusion or pneumothorax -DuoNeb treatments ordered scheduled and as needed -PRN O2 via nasal cannula to keep sats greater than 90%, right now SPO2 94% in 2 L nasal cannula -No shortness of shortness of breath at this time, 92% in room air -Monitor respiratory status Anemia, Likely acute on chronic Likely assess side effects of medications -Monitor CBC PTSD/acute psychosis -Management by psychiatric team DVT prophylaxis -Lovenox 40 mg subcu every 24 hours
[2018-06-11] MEDS: Baclofen 10 MG Tablet PO SCH ×3 (01:50→16:49)
[2018-06-11] MEDS: Levothyroxine 50 MCG Tablet PO SCH ×2 (06:33→08:36)
[2018-06-11] MEDS: levETIRAcetam 250 MG Tablet PO SCH ×2 (08:36→20:48)
[2018-06-11] MEDS: Gabapentin 100 MG Capsule PO SCH ×3 (08:37→17:41)
[2018-06-11] MEDS: Sertraline 100 MG Tablet PO SCH (08:37)
[2018-06-11] MEDS: Enoxaparin Inj 40 MG/0.4 ML Syringe SQ SCH (08:37)
[2018-06-11] MEDS: Divalproex 500 MG DR Tablet PO SCH ×2 (08:37→20:48)
[2018-06-11] MEDS: Calcium Carbonate 500 MG Tablet PO SCH ×2 (08:37→20:48)
[2018-06-11] MEDS: Lactobacillus Acidophilus/L. Spores Tablet PO SCH (08:40)
--- NOTE | 2018-06-11 11:00 | P.PNIM ---
Subjective Interval history: Ammonia level show stability. Acute kidney injury improving. No reports of seizure. Patient remains lethargic. Physical Exam Vital signs: Vital Signs 06/10/18 17:49 06/11/18 05:49 Temperature 99.2 F 98.1 F Pulse Rate 76 64 Respiratory Rate 17 16 Blood Pressure 95/63 L 110/66 Pulse Oximetry 91 L 93 L Intake & Output 06/10/18 06/11/18 06/11/18 18:59 06:59 18:59 Intake Total 2400 / 2400 720 / 720 Balance 2400 / 2400 720 / 720 Intake: Oral 2400 / 2400 720 / 720 Other: # Voids 0 Narrative: GENERAL: NAD, A&Ox1 HEAD: Normocephalic. NECK: Supple, trachea midline. No lymphadenopathy. EYES: No scleral icterus. No injection or drainage. CARDIOVASCULAR: Regular rate and rhythm without murmurs, gallops, or rubs. RESPIRATORY: Breath sounds equal bilaterally. No accessory muscle use. GASTROINTESTINAL: Abdomen soft, non-tender, nondistended. MUSCULOSKELETAL: No cyanosis, or edema. SKIN: Warm and dry. NEURO: No focal neurological deficits. Results - Labs CBC & Chem 7: 06/09/18 13:57 06/09/18 13:57 Laboratory Results - last 24 hr 06/10/18 20:29 Ammonia 47 H Assessment and Plan - Assessment (1) PTSD (post-traumatic stress disorder) Code(s): F43.10 - Post-traumatic stress disorder, unspecified Status: Acute (2) Major depressive disorder, recurrent, severe w/o psychotic behavior Code(s): F33.2 - Major depressive disorder, recurrent severe without psychotic features Status: Acute (3) Acute psychosis Code(s): F23 - Brief psychotic disorder Status: Acute (4) Post-traumatic stress disorder Code(s): F43.10 - Post-traumatic stress disorder, unspecified Status: Acute (5) Seizure Code(s): R56.9 - Unspecified convulsions Status: Acute - Plan 62-year-old male with past medical history significant for bipolar disorder, seizures, gout, chronic pain, COPD, hypertension, hyperlipidemia, chronic alcoholic pancreatitis, and hepatitis B and C who was has had a lengthy admission for inpatient psychiatric care since 03/15/2018 with complications including pneumonia and most recently seizures with hypotension resulting in transfer to the main hospital for evaluation and management. He was transferred back to the medical psychiatric unit on 06/04/2018. [facility] were consulted to assist with medical management. Seizures Continue Keppra and Depakote Monitor for seizure activity Seizure precautions Hepatic Encephalopathy Ammonia level improving Continue lactulose Continue monitoring ammonia levels QUINCY Continue following renal function Latest creatinine level is 1.32 Repeat labs tomorrow and initiate IV hydration if creatinine level not improving Hyperlipidemia Hypothyroidism Continue Lipitor Continue levothyroxine Chronic pain left hip pain Continue baclofen Continue gabapentin Continue lidocaine patches As needed Tylenol Hypoxia Resolved for now May be related to sedation Continue oxygen as needed Continue monitoring oxygen saturations Anemia Improved Follow CBC PTSD/acute psychosis Management by psychiatric team DVT prophylaxis Lovenox
[2018-06-11 12:56] LABS: Calcium 8.8 mg/dL (8.5-10.1); Carbon Dioxide 28.6 meq/L (21.0-32.0); Magnesium 1.9 mg/dL (1.5-2.5); Potassium 4.1 meq/L (3.5-5.1)
[2018-06-11] MEDS ORDERED: Haloperidol Inj 5 MG/ML Ampul ONE (16:31)
--- NOTE | 2018-06-11 16:35 | P.PNPSY ---
Subjective Chief Complaint: "I feel like shit" Remarks: Patient was seen and case discussed with nursing. Upon me saying hello to patient patient becomes angry and kicks his bed tray and throws all of his water on the floor. He continues to look at me with a very angry stare. Would not answer questions. Nursing notes bizarre and oppositional behavior all day. Throwing his food tray. He did take his medications. Mental Status Examination Appearance: Disheveled Consciousness: Alert Orientation: Person Motor Activity: Abnormal gait (uses walker) Speech: Unremarkable Language: Adequate Fund of Knowledge: Adequate Attention and Concentration: Adequate Memory: Impaired (mild) Mood: Angry Affect: Flat Thought Process & Associations: Intact Thought Content: Appropriate Hallucination Type: None Delusion Type: Bizarre, Paranoid Suicidal Ideation: No Suicidal Plan: No Suicidal Intention: No Homicidal Ideation: No Homicidal Plan: No Homicidal Intention: No Insight: Poor Judgment: Poor Assessment and Plan - Assessment (1) Bipolar disorder current episode depressed Code(s): F31.30 - Bipolar disorder, current episode depressed, mild or moderate severity, unspecified Status: Acute (2) PTSD (post-traumatic stress disorder) Code(s): F43.10 - Post-traumatic stress disorder, unspecified Status: Acute - Plan Plan: Given his aggressive behavior, we will administer an ETO of Haldol and Ativan as he is received in the past Justification for Continued Inpatient Stay: Patient would decompensate in a less restrictive setting
[2018-06-11] MEDS ORDERED: Haloperidol Inj 5 MG/ML Ampul IM ONE (18:00)
[2018-06-11] MEDS: Lidocaine 5% Patch T-DERMAL SCH (20:49)
[2018-06-12] MEDS: Baclofen 10 MG Tablet PO SCH ×4 (02:01→20:57)
[2018-06-12] MEDS: Levothyroxine 50 MCG Tablet PO SCH ×2 (06:47→09:46)
[2018-06-12] MEDS: Divalproex 500 MG DR Tablet PO SCH ×2 (09:27→20:57)
[2018-06-12] MEDS: Gabapentin 100 MG Capsule PO SCH ×3 (09:28→20:57)
[2018-06-12] MEDS: levETIRAcetam 250 MG Tablet PO SCH ×2 (09:32→20:57)
[2018-06-12] MEDS: Calcium Carbonate 500 MG Tablet PO SCH ×2 (09:35→20:57)
[2018-06-12] MEDS: Sertraline 100 MG Tablet PO SCH (09:38)
[2018-06-12] MEDS: Lactobacillus Acidophilus/L. Spores Tablet PO SCH (09:45)
[2018-06-12 10:56] LABS: Baso % (Auto) 0.6 % (0.0-2.0); Eos # (Auto) 0.2 th/mm3 (0.0-0.4); Eos % (Auto) 3.6 % (0.0-4.0); Hemoglobin 12.4 gm/dL (13.0-17.0); Lymph # (Auto) 2.2 th/mm3 (1.0-4.8); Mean Corpuscular HGB Conc 33.5 % (32.0-36.0); Mean Corpuscular Hemoglobin 29.8 pg (27.0-34.0); Mean Corpuscular Volume 88.8 fL (80.0-100.0); Mean Platelet Volume 7.7 fL (7.0-11.0); Mono # (Auto) 0.4 th/mm3 (0.0-0.9); Neut # (Auto) 1.8 th/mm3 (1.8-7.7); Neut % (Auto) 38.8 % (16.0-70.0); Platelet Count 153 th/mm3 (150-450); Red Blood Count 4.17 mil/mm3 (4.50-5.90); Red Cell Distribution Width 13.8 % (11.6-17.2); White Blood Count 4.5 th/mm3 (4.0-11.0)
[2018-06-12 11:12] LABS: Alanine Aminotransferase 22 U/L (12-78); Albumin 3.3 g/dL (3.4-5.0); Anion Gap 9 meq/L (5-15); Aspartate Aminotransferase 34 U/L (15-37); Blood Urea Nitrogen 24 mg/dL (7-18); Calcium 9.3 mg/dL (8.5-10.1); Carbon Dioxide 28.1 meq/L (21.0-32.0); Chloride 104 meq/L (98-107); Glomerular Filtration Rate 64 mL/min (>89); Glucose,Random 77 mg/dL (74-106); Sodium 141 meq/L (136-145)
[2018-06-12 11:14] LABS: Alkaline Phosphatase 62 U/L (45-117); Total Protein 9.6 g/dL (6.4-8.2)
--- NOTE | 2018-06-12 11:18 | P.PNPSY ---
Subjective Chief Complaint: "I feel like shit" Remarks: Patient was seen and case discussed with nursing. Patient is in better behavior today. He remains very confused and very preoccupied with getting Demerol injections. He is internally stimulated throughout the day. Mental Status Examination Appearance: Disheveled Consciousness: Alert Orientation: Person Motor Activity: Abnormal gait (uses walker) Speech: Unremarkable Language: Adequate Fund of Knowledge: Adequate Attention and Concentration: Adequate Memory: Impaired (mild) Mood: Angry Affect: Flat Thought Process & Associations: Intact Thought Content: Appropriate Hallucination Type: None Delusion Type: Bizarre, Paranoid Suicidal Ideation: No Suicidal Plan: No Suicidal Intention: No Homicidal Ideation: No Homicidal Plan: No Homicidal Intention: No Insight: Poor Judgment: Poor Assessment and Plan - Assessment (1) Bipolar disorder current episode depressed Code(s): F31.30 - Bipolar disorder, current episode depressed, mild or moderate severity, unspecified Status: Acute (2) PTSD (post-traumatic stress disorder) Code(s): F43.10 - Post-traumatic stress disorder, unspecified Status: Acute - Plan Plan: Continue current treatment plan Justification for Continued Inpatient Stay: Patient would decompensate in a less restrictive setting
--- NOTE | 2018-06-12 11:41 | P.PNIM ---
Subjective Interval history: Trial Ultram provided due to complaints of pain. No other complaints from the patient. No reported seizures. Physical Exam Vital signs: Vital Signs 06/11/18 19:25 06/12/18 06:09 Temperature 98.8 F 97.8 F Pulse Rate 74 60 Respiratory Rate 16 16 Blood Pressure 107/66 111/65 Pulse Oximetry 90 L 94 L Intake & Output 06/11/18 06/12/18 06/12/18 18:59 06:59 18:59 Intake Total 660 / 660 240 / 240 Balance 660 / 660 240 / 240 Intake: Oral 660 / 660 240 / 240 Other: # Voids 2 3 Results - Labs CBC & Chem 7: 06/12/18 10:26 06/12/18 10:26 Laboratory Results - last 24 hr 06/11/18 06/11/18 06/12/18 12:15 12:15 10:26 WBC 4.5 RBC 4.17 L Hgb 12.4 L Hct 37.0 L MCV 88.8 MCH 29.8 MCHC 33.5 RDW 13.8 Plt Count 153 MPV 7.7 Neut % (Auto) 38.8 Lymph % (Auto) 49.0 H [place] % (Auto) 8.0 Eos % (Auto) 3.6 Baso % (Auto) 0.6 Neut # (Auto) 1.8 Lymph # (Auto) 2.2 [place] # (Auto) 0.4 Eos # (Auto) 0.2 Baso # (Auto) 0.0 WBC Differential . Differential Comment Auto diff final Sodium 142 Potassium 4.1 Chloride 106 Carbon Dioxide 28.6 Anion Gap 7 BUN 25 H Creatinine 1.30 Estimated GFR 56 L Random Glucose 85 Calcium 8.8 Magnesium 1.9 Total Bilirubin AST ALT Alkaline Phosphatase Ammonia 46 H Total Creatine Kinase 133 Total Protein Albumin 06/12/18 06/12/18 10:26 10:26 WBC RBC Hgb Hct MCV MCH MCHC RDW Plt Count MPV Neut % (Auto) Lymph % (Auto) [place] % (Auto) Eos % (Auto) Baso % (Auto) Neut # (Auto) Lymph # (Auto) [place] # (Auto) Eos # (Auto) Baso # (Auto) WBC Differential Differential Comment Sodium 141 Potassium 4.0 Chloride 104 Carbon Dioxide 28.1 Anion Gap 9 BUN 24 H Creatinine 1.16 Estimated GFR 64 L Random Glucose 77 Calcium 9.3 Magnesium Total Bilirubin 0.3 AST 34 ALT 22 Alkaline Phosphatase 62 Ammonia 29 Total Creatine Kinase Total Protein 9.6 H D Albumin 3.3 L Assessment and Plan - Assessment (1) PTSD (post-traumatic stress disorder) Code(s): F43.10 - Post-traumatic stress disorder, unspecified Status: Acute (2) Major depressive disorder, recurrent, severe w/o psychotic behavior Code(s): F33.2 - Major depressive disorder, recurrent severe without psychotic features Status: Acute (3) Acute psychosis Code(s): F23 - Brief psychotic disorder Status: Acute (4) Post-traumatic stress disorder Code(s): F43.10 - Post-traumatic stress disorder, unspecified Status: Acute (5) Seizure Code(s): R56.9 - Unspecified convulsions Status: Acute - Plan 62-year-old male with past medical history significant for bipolar disorder, seizures, gout, chronic pain, COPD, hypertension, hyperlipidemia, chronic alcoholic pancreatitis, and hepatitis B and C who was has had a lengthy admission for inpatient psychiatric care since 03/15/2018 with complications including pneumonia and most recently seizures with hypotension resulting in transfer to the main hospital for evaluation and management. He was transferred back to the medical psychiatric unit on 06/04/2018. [facility]ist were consulted to assist with medical management. Ultram provided, monitor for benefit towards patient's pain. Opioids are being avoided due to psychosis. Seizures Continue Keppra and Depakote Monitor for seizure activity Seizure precautions Hepatic Encephalopathy Ammonia level improving Continue lactulose Continue monitoring ammonia levels QUINCY Continue following renal function Latest creatinine level is 1.32 Repeat labs tomorrow and initiate IV hydration if creatinine level not improving Hyperlipidemia Hypothyroidism Continue Lipitor Continue levothyroxine Chronic pain left hip pain Continue baclofen Continue gabapentin Continue lidocaine patches As needed Tylenol Hypoxia Resolved for now May be related to sedation Continue oxygen as needed Continue monitoring oxygen saturations Anemia Improved Follow CBC PTSD/acute psychosis Management by psychiatric team DVT prophylaxis Lovenox
[2018-06-12] MEDS: Enoxaparin Inj 40 MG/0.4 ML Syringe SQ SCH (12:01)
[2018-06-12] MEDS: Lidocaine 5% Patch T-DERMAL SCH (20:57)
[2018-06-13] MEDS: Baclofen 10 MG Tablet PO SCH ×3 (00:14→17:13)
[2018-06-13] MEDS: Levothyroxine 50 MCG Tablet PO SCH (06:49)
[2018-06-13] MEDS: levETIRAcetam 250 MG Tablet PO SCH ×2 (09:02→20:28)
[2018-06-13] MEDS: Calcium Carbonate 500 MG Tablet PO SCH ×2 (09:03→20:27)
[2018-06-13] MEDS: Divalproex 500 MG DR Tablet PO SCH ×2 (09:03→20:28)
[2018-06-13] MEDS: Gabapentin 100 MG Capsule PO SCH ×3 (09:04→17:13)
[2018-06-13] MEDS: Sertraline 100 MG Tablet PO SCH (09:04)
[2018-06-13] MEDS: Enoxaparin Inj 40 MG/0.4 ML Syringe SQ SCH (09:05)
--- NOTE | 2018-06-13 09:10 | P.PN ---
Subjective Interval history: Follow up on patient with seizure disorder, hip pain, QUINCY, hepatic encephalopathy. Patient seen and examined. Patient is a very poor historian. He informs me that the other has been evacuated and this room is now available. He is requesting I go put a litigation specialist the door of the other room. He is very focused on me putting a litigation specialist the room. He does not answer me in regards to if he has any complaints of hip pain. He does not answer any of my ROS questions appropriately. Discussed with nursing staff, no adverse events noted. Physical Exam Vital signs: Vital Signs 06/12/18 19:00 06/13/18 06:00 Temperature 98.5 F 98.5 F Pulse Rate 125 H 85 Respiratory Rate 20 17 Blood Pressure 94/59 L 101/67 Pulse Oximetry 90 L 95 Intake & Output 06/12/18 06/13/18 06/13/18 18:59 06:59 18:59 Intake Total 100 / 100 240 / 240 Balance 100 / 100 240 / 240 Intake: Oral 100 / 100 240 / 240 Oral Supplement 0 / 0 Other: # Voids 1 1 Date of Last Bowel Movement 06/05/18 06/05/18 Narrative: GENERAL: WDWN male patient, INAD. Alert, confused. Oriented to self only. Witnessed ambulating in unit without much difficulty. SKIN: Warm and dry. HEENT: Atraumatic. Normocephalic. Pupils equal and round. No scleral icterus. No injection or drainage. No nasal bleeding or discharge. Mucous membranes pink and moist. NECK: Trachea midline. CARDIOVASCULAR: Regular rate and rhythm. RESPIRATORY: No accessory muscle use. Clear to auscultation. Breath sounds equal bilaterally. GASTROINTESTINAL: Abdomen soft, non-tender, nondistended. +BS. MUSCULOSKELETAL: Extremities without clubbing, cyanosis, or edema. No obvious deformities. NEUROLOGICAL: Awake and alert. Oriented to self only. No obvious cranial nerve deficits. Motor grossly within normal limits. Able to move all extremities. Normal speech. PSYCHIATRIC: Calm and cooperative. Results - Labs CBC & Chem 7: 06/12/18 10:26 06/12/18 10:26 Laboratory Results - last 24 hr 06/12/18 06/12/18 06/12/18 10:26 10: 10:26 WBC 4.5 RBC 4.17 L Hgb 12.4 L Hct 37.0 L MCV 88.8 MCH 29.8 MCHC 33.5 RDW 13.8 Plt Count 153 MPV 7.7 Neut % (Auto) 38.8 Lymph % (Auto) 49.0 H [place] % (Auto) 8.0 Eos % (Auto) 3.6 Baso % (Auto) 0.6 Neut # (Auto) 1.8 Lymph # (Auto) 2.2 [place] # (Auto) 0.4 Eos # (Auto) 0.2 Baso # (Auto) 0.0 WBC Differential . Differential Comment Auto diff final Sodium 141 Potassium 4.0 Chloride 104 Carbon Dioxide 28.1 Anion Gap 9 BUN 24 H Creatinine 1.16 Estimated GFR 64 L Random Glucose 77 Calcium 9.3 Total Bilirubin 0.3 AST 34 ALT 22 Alkaline Phosphatase 62 Ammonia 29 Total Protein 9.6 H D Albumin 3.3 L Assessment and Plan - Assessment (1) PTSD (post-traumatic stress disorder) Code(s): F43.10 - Post-traumatic stress disorder, unspecified Status: Acute (2) Major depressive disorder, recurrent, severe w/o psychotic behavior Code(s): F33.2 - Major depressive disorder, recurrent severe without psychotic features Status: Acute (3) Acute psychosis Code(s): F23 - Brief psychotic disorder Status: Acute (4) Post-traumatic stress disorder Code(s): F43.10 - Post-traumatic stress disorder, unspecified Status: Acute (5) Seizure Code(s): R56.9 - Unspecified convulsions Status: Acute - Plan 62-year-old male with past medical history significant for bipolar disorder, seizures, gout, chronic pain, COPD, hypertension, hyperlipidemia, chronic alcoholic pancreatitis, and hepatitis B and C who was has had a lengthy admission for inpatient psychiatric care since 03/15/2018 with complications including pneumonia and most recently seizures with hypotension resulting in transfer to the main hospital for evaluation and management. He was transferred back to the medical psychiatric unit on 06/04/2018. [facility] hospitalist were consulted to assist with medical management. Seizures No seizure activity reported Continue Keppra and Depakote Monitor for seizure activity Seizure precautions Hepatic Encephalopathy Ammonia level improving, now normal Continue lactulose Continue monitoring ammonia levels as indicated QUINCY Continue following renal function Latest creatinine level is 1.16 Hyperlipidemia Hypothyroidism Continue Lipitor Continue levothyroxine Chronic pain left hip pain Patient does not indicate any complaints of hip pain at present Ultram provided, monitor for benefit towards patient's pain. Opioids are being avoided due to psychosis. Continue baclofen Continue gabapentin Continue lidocaine patches As needed Tylenol Hypoxia Resolved for now May be related to sedation Continue oxygen as needed Continue monitoring oxygen saturations Anemia Improved Follow CBC PTSD/acute psychosis Management by psychiatric team DVT prophylaxis Lovenox Patient appears stable from hospitalist standpoint. [facility] will sign off. Please reconsult if needed. Discussed Condition With: patient, nursing staff, Dr. Hanson
--- NOTE | 2018-06-13 12:37 | P.TTN ---
- Patient Problems Problems: 1. Discharge planning 2. Medication compliance 3. Knowledge deficit 4. Lack of coping skills - Progress Toward Goals Provider Present: Dr. Greta Sam (pleasant no behaviors noted) Provider Input: 06/08/2018 Patient's pharrmacotherapy is being monitored since being adjusted. patient placement is pending. 06/06/2018; patient's medication are being adjusted, patient was recently transferred to medical and sent back to [facility] to continue care. Nurse(s) Present: RN Nurse Input: 06/08/2018 patient is no taking medication, eating and being more cooperative. He still continues to be delusional. 06/06/2018; patient is taking his medication and eating meals require coaching and prompting with care. Psychiatric Counselors Present: JUAREZ Alan (patient is a placement issues will continue to look for safe discharge options) Psychiatric Therapist Input: 06/08/2018 continuing to work on proper placement for sucessful discharge when patient is stabilized. 06/06/2018; patient's dc planning will be with an appropriate [place] [facility] or [facility], when accepted. [facility] tool [facility] production [facility] Group Spec/RT/OT/DYER Present: MANISHA Mobley, Lionel Benson, OT Group Spec/RT/OT/DYER Input: 06/06/2018; patient lacks current ability to participate with activities, however he will be encouarged to do so when able. Occupational Therapist Input: Patient is not able to participate in activities - Documentation Teaching Recipient: Patient
--- NOTE | 2018-06-13 16:51 | P.PNPSY ---
Subjective Chief Complaint: "I feel like shit" Remarks: Patient seen for follow-up, chart reviewed. Discussion with nursing staff reported that patient slept poorly less evening but compliant with medication. Patient was found sitting in day room received medications from nurse noted B, cooperative. 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 Patient denies any physical complaints at this time. Review of Systems All other systems reviewed negative except as stated in HPI Mental Status Examination Appearance: Appropriate Consciousness: Alert Orientation: Person Motor Activity: Abnormal gait (uses walker) Speech: Unremarkable Language: Adequate Fund of Knowledge: Adequate Attention and Concentration: Adequate Memory: Impaired (mild) Mood: Appropriate Affect: Appropriate Thought Process & Associations: Intact Thought Content: Appropriate Hallucination Type: None Delusion Type: Bizarre, Paranoid (Minimal) Suicidal Ideation: No Suicidal Plan: No Suicidal Intention: No Homicidal Ideation: No Homicidal Plan: No Homicidal Intention: No Insight: Poor Judgment: Poor Assessment and Plan - Assessment (1) Bipolar disorder current episode depressed Code(s): F31.30 - Bipolar disorder, current episode depressed, mild or moderate severity, unspecified Status: Acute (2) PTSD (post-traumatic stress disorder) Code(s): F43.10 - Post-traumatic stress disorder, unspecified Status: Acute - Plan Plan: Patient noted with appropriate affect responding well to interview, has been pleasant and cooperative and compliant with medications. Patient continues to have occasional confusion likely secondary to neurocognitive deficits. Continue current treatment to the monitor mood and behavior. Discharge planning a progress. Justification for Continued Inpatient Stay: At risk of further decompensation at lower level care.
[2018-06-13] MEDS: Lidocaine 5% Patch T-DERMAL SCH (20:28)
[2018-06-14] MEDS: Baclofen 10 MG Tablet PO SCH ×3 (01:13→16:18)
[2018-06-14] MEDS: Enoxaparin Inj 40 MG/0.4 ML Syringe SQ SCH (08:26)
[2018-06-14] MEDS: Gabapentin 100 MG Capsule PO SCH ×3 (08:26→17:40)
[2018-06-14] MEDS: Divalproex 500 MG DR Tablet PO SCH ×2 (08:26→20:12)
[2018-06-14] MEDS: Lactobacillus Acidophilus/L. Spores Tablet PO SCH (08:26)
[2018-06-14] MEDS: levETIRAcetam 250 MG Tablet PO SCH ×2 (08:26→20:12)
[2018-06-14] MEDS: Sertraline 100 MG Tablet PO SCH (08:27)
[2018-06-14] MEDS: Calcium Carbonate 500 MG Tablet PO SCH ×2 (08:27→20:12)
[2018-06-14] MEDS: Levothyroxine 50 MCG Tablet PO SCH (08:27)
--- NOTE | 2018-06-14 15:04 | P.PNPSY ---
Subjective Chief Complaint: "I feel like shit" Remarks: Reviewed electronic medical records and discussed case with staff. Follow-up was conducted in the patient's room. He was found sleeping in no apparent distress in his bed. His nurse reports that he has had no outbursts today. He did come to the nurses station earlier requesting to "speak to the middleware administrator ". When told he was in a locked down unit and would not be able to do that he responded "no shit, when did that happen". Mental Status Examination Appearance: Appropriate Consciousness: Alert Orientation: Person Motor Activity: Abnormal gait (uses walker) Speech: Unremarkable Language: Adequate Fund of Knowledge: Adequate Attention and Concentration: Adequate Memory: Impaired (mild) Mood: Appropriate Affect: Appropriate Thought Process & Associations: Intact Thought Content: Appropriate Hallucination Type: None Delusion Type: Bizarre, Paranoid (Minimal) Suicidal Ideation: No Suicidal Plan: No Suicidal Intention: No Homicidal Ideation: No Homicidal Plan: No Homicidal Intention: No Insight: Poor Judgment: Poor Assessment and Plan - Assessment (1) Bipolar disorder current episode depressed Code(s): F31.30 - Bipolar disorder, current episode depressed, mild or moderate severity, unspecified Status: Acute - Plan Plan: Patient will be reevaluated by the attending psychiatrist. Continue with current treatment plan. Justification for Continued Inpatient Stay: Moving this patient to a less restrictive environment would likely result in decompensation.
[2018-06-14] MEDS: Lidocaine 5% Patch T-DERMAL SCH (20:12)
[2018-06-15] MEDS: Baclofen 10 MG Tablet PO SCH ×3 (00:53→16:21)
[2018-06-15] MEDS: Levothyroxine 50 MCG Tablet PO SCH (08:39)
[2018-06-15] MEDS: Calcium Carbonate 500 MG Tablet PO SCH ×2 (08:39→20:18)
[2018-06-15] MEDS: Divalproex 500 MG DR Tablet PO SCH ×2 (08:39→20:18)
[2018-06-15] MEDS: Sertraline 100 MG Tablet PO SCH (08:39)
[2018-06-15] MEDS: Enoxaparin Inj 40 MG/0.4 ML Syringe SQ SCH (08:39)
[2018-06-15] MEDS: Gabapentin 100 MG Capsule PO SCH ×3 (08:39→17:29)
[2018-06-15] MEDS: levETIRAcetam 250 MG Tablet PO SCH ×2 (08:39→20:18)
[2018-06-15] MEDS: Lactobacillus Acidophilus/L. Spores Tablet PO SCH (08:41)
--- NOTE | 2018-06-15 14:35 | P.PNPSY ---
Subjective Chief Complaint: "I feel like shit" Remarks: Patient seen for follow-up, chart reviewed. Discussion with nursing staff reported that patient patient has a pleasant, confused at times and cooperative and compliant with medication. 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 He states that he is feeling well although having some difficulty with ambulation reminded the importance of using his walker. Patient compliant with medications denying any perceptional disturbances. Review of Systems All other systems reviewed negative except as stated in HPI Mental Status Examination Appearance: Appropriate Consciousness: Alert Orientation: Person Motor Activity: Abnormal gait (uses walker) Speech: Unremarkable Language: Adequate Fund of Knowledge: Adequate Attention and Concentration: Adequate Memory: Impaired (mild) Mood: Appropriate Affect: Appropriate Thought Process & Associations: Intact Thought Content: Appropriate Hallucination Type: None Delusion Type: Bizarre, Paranoid (lessening) Suicidal Ideation: No Suicidal Plan: No Suicidal Intention: No Homicidal Ideation: No Homicidal Plan: No Homicidal Intention: No Insight: Poor Judgment: Poor Assessment and Plan - Assessment (1) Bipolar disorder current episode depressed Code(s): F31.30 - Bipolar disorder, current episode depressed, mild or moderate severity, unspecified Status: Acute (2) PTSD (post-traumatic stress disorder) Code(s): F43.10 - Post-traumatic stress disorder, unspecified Status: Acute - Plan Plan: Patient continues with baseline confusion denying physical complaints at this time. Patient has a compliant pleasant with staff. We will continue to monitor mood and behavior. Discharge planning a progress. Justification for Continued Inpatient Stay: At risk of further decompensation at lower level care.
[2018-06-15] MEDS: Lidocaine 5% Patch T-DERMAL SCH (20:18)
[2018-06-16] MEDS: Baclofen 10 MG Tablet PO SCH ×3 (02:45→18:12)
[2018-06-16] MEDS: levETIRAcetam 250 MG Tablet PO SCH ×2 (08:25→20:57)
[2018-06-16] MEDS: Calcium Carbonate 500 MG Tablet PO SCH ×2 (08:25→20:57)
[2018-06-16] MEDS: Enoxaparin Inj 40 MG/0.4 ML Syringe SQ SCH (08:26)
[2018-06-16] MEDS: Divalproex 500 MG DR Tablet PO SCH ×2 (08:26→20:57)
[2018-06-16] MEDS: Sertraline 100 MG Tablet PO SCH (08:26)
[2018-06-16] MEDS: Levothyroxine 50 MCG Tablet PO SCH (08:27)
[2018-06-16] MEDS: Gabapentin 100 MG Capsule PO SCH ×2 (08:29→18:12)
[2018-06-16] MEDS: Lactobacillus Acidophilus/L. Spores Tablet PO SCH (08:29)
--- NOTE | 2018-06-16 14:27 | P.TTN ---
- Patient Problems Problems: 1. Discharge planning 2. Medication compliance 3. Knowledge deficit 4. Lack of coping skills - Progress Toward Goals Provider Present: Dr. Greta Sam (pleasant no behaviors noted) Provider Input: 06/15/2018; per doctor patient's is at base line with medication no med changes at this time. 06/08/2018 Patient's pharrmacotherapy is being monitored since being adjusted. patient placement is pending. 2017; patient's medication are being adjusted, patient was recently transferred to medical and sent back to [facility] to continue care. Nurse(s) Present: RN Nurse Input: 06/15/2018; per RN patient requires coaching and encouragement with treatment, extremely confused and disorganized. 06/08/2018 patient is no taking medication, eating and being more cooperative. He still continues to be delusional. 06/06/2018; patient is taking his medication and eating meals require coaching and prompting with care. Psychiatric Counselors Present: Juanita Erazo LM (patient is a placement issues will continue to look for safe discharge options) Psychiatric Therapist Input: 06/15/2018; [facility]. 06/08/2018 continuing to work on proper placement for sucessful discharge when patient is stabilized. 06/06/2018; patient's dc planning will be with an [facility], when [facility]. [facility] Group Spec/RT/OT/DYER Present: MANISHA Mobley, Lionel Benson, REMIGIO Group Spec/RT/OT/DYER Input: 06/15/2018 patient lacks motivation with limited insight, unable to attend most groups. 06/06/2018; patient lacks current ability to participate with activities, however he will be encouarged to do so when able. Occupational Therapist Input: Patient is not able to participate in activities - Documentation Teaching Recipient: Patient
--- NOTE | 2018-06-16 16:07 | P.PNPSY ---
Subjective Chief Complaint: "I feel like shit" Remarks: Patient records reviewed and discussed case with staff. He continues to be confused and labile. Nurse reports that the patient had to be medicated with ativan due to behavioral issues. He had been yelling and acting out, throwing a walker down the [place], as well as swinging at the staff. Patient had been yelling that he had been "waiting for four hours to get into my new office". He is now sleeping due to the medication. Mental Status Examination Appearance: Appropriate Consciousness: Alert Orientation: Person Motor Activity: Abnormal gait (uses walker) Speech: Unremarkable Language: Adequate Fund of Knowledge: Adequate Attention and Concentration: Adequate Memory: Impaired (mild) Mood: Appropriate Affect: Appropriate Thought Process & Associations: Intact Thought Content: Appropriate Hallucination Type: None Delusion Type: Bizarre, Paranoid (lessening) Suicidal Ideation: No Suicidal Plan: No Suicidal Intention: No Homicidal Ideation: No Homicidal Plan: No Homicidal Intention: No Insight: Poor Judgment: Poor Assessment and Plan - Assessment (1) Bipolar disorder current episode depressed Code(s): F31.30 - Bipolar disorder, current episode depressed, mild or moderate severity, unspecified Status: Acute - Plan Plan: Patient will be reevaluated by an attending. Discharge planning is in progress. Justification for Continued Inpatient Stay: Moving this patient to a lower level of care would likely result in a decompensation.
[2018-06-16] MEDS: Lidocaine 5% Patch T-DERMAL SCH (20:57)
[2018-06-17] MEDS: Baclofen 10 MG Tablet PO SCH ×3 (03:02→17:53)
[2018-06-17] MEDS: Levothyroxine 50 MCG Tablet PO SCH ×2 (05:59→09:09)
[2018-06-17] MEDS: Divalproex 500 MG DR Tablet PO SCH ×2 (09:07→20:55)
[2018-06-17] MEDS: Calcium Carbonate 500 MG Tablet PO SCH ×2 (09:07→20:55)
[2018-06-17] MEDS: Sertraline 100 MG Tablet PO SCH (09:07)
[2018-06-17] MEDS: levETIRAcetam 250 MG Tablet PO SCH ×2 (09:08→20:55)
[2018-06-17] MEDS: Gabapentin 100 MG Capsule PO SCH ×3 (09:09→17:53)
[2018-06-17] MEDS: Enoxaparin Inj 40 MG/0.4 ML Syringe SQ SCH (09:18)
--- NOTE | 2018-06-17 15:43 | P.PNPSY ---
Subjective Chief Complaint: "I feel like shit" Remarks: Patient seen for follow-up, chart reviewed. Discussion with nursing staff reported that patient with no behavioral changes continues with baseline confusion but no episodes of agitation but requires redirection at times. Patient was found sitting on hospital chair eating lunch, noted to be calm, perseverative on receiving pain medications. He continues to believe he is at his workplace and continues with baseline confusion. He is redirectible, and cooperative with staff with good affect. Review of Systems All other systems reviewed negative except as stated in HPI Mental Status Examination Appearance: Appropriate Consciousness: Alert Orientation: Person Motor Activity: Abnormal gait (uses walker) Speech: Unremarkable Language: Adequate Fund of Knowledge: Adequate Attention and Concentration: Adequate Memory: Impaired (mild) Mood: Appropriate Affect: Appropriate Thought Process & Associations: Intact Thought Content: Appropriate Hallucination Type: None Delusion Type: Bizarre, Paranoid (lessening) Suicidal Ideation: No Suicidal Plan: No Suicidal Intention: No Homicidal Ideation: No Homicidal Plan: No Homicidal Intention: No Insight: Poor Judgment: Poor Assessment and Plan - Assessment (1) Bipolar disorder current episode depressed Code(s): F31.30 - Bipolar disorder, current episode depressed, mild or moderate severity, unspecified Status: Acute (2) PTSD (post-traumatic stress disorder) Code(s): F43.10 - Post-traumatic stress disorder, unspecified Status: Acute - Plan Plan: Patient continues with baseline confusion, cooperative and compliant with medications. Continue current treatment, continue to monitor mood and behavior. Discharge planning in progress. Justification for Continued Inpatient Stay: At risk for further decompensation at lower level of care.
[2018-06-17] MEDS: Lidocaine 5% Patch T-DERMAL SCH (20:54)
[2018-06-18] MEDS: Baclofen 10 MG Tablet PO SCH ×4 (00:38→17:49)
[2018-06-18] MEDS: Levothyroxine 50 MCG Tablet PO SCH ×2 (06:05→09:07)
[2018-06-18] MEDS: Lactobacillus Acidophilus/L. Spores Tablet PO SCH (08:54)
[2018-06-18] MEDS: levETIRAcetam 250 MG Tablet PO SCH ×3 (08:55→20:38)
[2018-06-18] MEDS: Gabapentin 100 MG Capsule PO SCH ×3 (08:55→17:49)
[2018-06-18] MEDS: Enoxaparin Inj 40 MG/0.4 ML Syringe SQ SCH (08:56)
[2018-06-18] MEDS: Divalproex 500 MG DR Tablet PO SCH ×3 (08:56→20:37)
[2018-06-18] MEDS: Calcium Carbonate 500 MG Tablet PO SCH ×3 (08:56→20:38)
[2018-06-18] MEDS: Sertraline 100 MG Tablet PO SCH (09:02)
[2018-06-18] MEDS ORDERED: Haloperidol Inj 5 MG/ML Ampul ONE (16:19)
[2018-06-18] MEDS ORDERED: Haloperidol Inj 5 MG/ML Ampul IM ONE (16:45)
--- NOTE | 2018-06-18 17:14 | P.PNPSY ---
Subjective Chief Complaint: "I feel like shit" Remarks: Patient is seen and case discussed with nursing. Patient is oppositional and agitated throughout the day. Earlier this morning he was threatening nurses and later threw his walker. He received an ETO around 4 PM. He is internally preoccupied and confused concerning his surrounding. Responding to internal stimuli Mental Status Examination Appearance: Appropriate Consciousness: Alert Orientation: Person Motor Activity: Abnormal gait (uses walker) Speech: Unremarkable Language: Adequate Fund of Knowledge: Adequate Attention and Concentration: Adequate Memory: Impaired (mild) Mood: Angry, Irritable Affect: Labile Thought Process & Associations: Intact Thought Content: Appropriate Hallucination Type: None Delusion Type: Bizarre, Paranoid (lessening) Suicidal Ideation: No Suicidal Plan: No Suicidal Intention: No Homicidal Ideation: No Homicidal Plan: No Homicidal Intention: No Insight: Poor Judgment: Poor Assessment and Plan - Assessment (1) Bipolar disorder current episode depressed Code(s): F31.30 - Bipolar disorder, current episode depressed, mild or moderate severity, unspecified Status: Acute (2) PTSD (post-traumatic stress disorder) Code(s): F43.10 - Post-traumatic stress disorder, unspecified Status: Acute - Plan Plan: Continue current treatment plan Justification for Continued Inpatient Stay: Patient would decompensate in a less restrictive setting
[2018-06-18] MEDS: Lidocaine 5% Patch T-DERMAL SCH ×2 (20:28→20:38)
[2018-06-19] MEDS: Baclofen 10 MG Tablet PO SCH ×3 (01:47→16:45)
[2018-06-19] MEDS: Levothyroxine 50 MCG Tablet PO SCH ×2 (06:00→09:45)
[2018-06-19] MEDS: Lactobacillus Acidophilus/L. Spores Tablet PO SCH (09:45)
[2018-06-19] MEDS: Sertraline 100 MG Tablet PO SCH (09:45)
[2018-06-19] MEDS: Divalproex 500 MG DR Tablet PO SCH ×2 (09:45→20:39)
[2018-06-19] MEDS: levETIRAcetam 250 MG Tablet PO SCH ×2 (09:45→20:39)
[2018-06-19] MEDS: Calcium Carbonate 500 MG Tablet PO SCH ×2 (09:45→20:39)
[2018-06-19] MEDS: Gabapentin 100 MG Capsule PO SCH ×3 (09:46→17:42)
[2018-06-19] MEDS: Enoxaparin Inj 40 MG/0.4 ML Syringe SQ SCH (09:46)
--- NOTE | 2018-06-19 13:36 | P.PNPSY ---
Subjective Chief Complaint: "I feel like shit" Remarks: Patient was seen and case discussed with nursing. Patient did not have any agitation today. His yet had any yelling or aggressive behavior. He is compliant with his medications at this time. Remains internally stimulated Mental Status Examination Appearance: Appropriate Consciousness: Alert Orientation: Person Motor Activity: Abnormal gait (uses walker) Speech: Unremarkable Language: Adequate Fund of Knowledge: Adequate Attention and Concentration: Adequate Memory: Impaired (mild) Mood: Angry, Irritable Affect: Labile Thought Process & Associations: Intact Thought Content: Appropriate Hallucination Type: None Delusion Type: Bizarre, Paranoid (lessening) Suicidal Ideation: No Suicidal Plan: No Suicidal Intention: No Homicidal Ideation: No Homicidal Plan: No Homicidal Intention: No Insight: Poor Judgment: Poor Assessment and Plan - Assessment (1) Bipolar disorder current episode depressed Code(s): F31.30 - Bipolar disorder, current episode depressed, mild or moderate severity, unspecified Status: Acute (2) PTSD (post-traumatic stress disorder) Code(s): F43.10 - Post-traumatic stress disorder, unspecified Status: Acute - Plan Plan: Continue current treatment plan Justification for Continued Inpatient Stay: Patient would decompensate in a less restrictive setting
[2018-06-19] MEDS: Lidocaine 5% Patch T-DERMAL SCH (20:39)
[2018-06-20] MEDS: Baclofen 10 MG Tablet PO SCH ×2 (00:30→09:37)
[2018-06-20] MEDS: Levothyroxine 50 MCG Tablet PO SCH (06:47)
[2018-06-20] MEDS: Sertraline 100 MG Tablet PO SCH (09:22)
[2018-06-20] MEDS: Gabapentin 100 MG Capsule PO SCH ×4 (09:22→18:01)
[2018-06-20] MEDS: levETIRAcetam 250 MG Tablet PO SCH ×2 (09:38→20:48)
[2018-06-20] MEDS: Divalproex 500 MG DR Tablet PO SCH ×2 (09:38→20:49)
[2018-06-20] MEDS: Calcium Carbonate 500 MG Tablet PO SCH ×2 (09:38→20:49)
[2018-06-20] MEDS: Enoxaparin Inj 40 MG/0.4 ML Syringe SQ SCH (09:38)
--- NOTE | 2018-06-20 15:48 | P.PNPSY ---
Subjective Chief Complaint: "I feel like shit" Remarks: Patient seen for follow-up, chart reviewed. Discussion with nursing staff reported that patient patient continues to be irritable at times, over the weekend had ETO once patient was behavioral in good control yesterday.. Patient was found lying in hospital bed with bed sheets over his had noted to be superficially cooperative, continue with baseline confusion stating that he has an appointment at 9 AM repeating this throughout interview. Patient does have hearing impairment which makes it difficult for patient to not get easily frustrated when trying to engage in further questioning. Review of Systems All other systems reviewed negative except as stated in HPI Mental Status Examination Appearance: Appropriate Consciousness: Alert Orientation: Person Motor Activity: Abnormal gait (uses walker) Speech: Unremarkable Language: Adequate Fund of Knowledge: Adequate Attention and Concentration: Adequate Memory: Impaired (mild) Mood: Irritable Affect: Irritable (Slightly) Thought Process & Associations: Intact Thought Content: Appropriate Hallucination Type: None Delusion Type: Bizarre, Paranoid (lessening) Suicidal Ideation: No Suicidal Plan: No Suicidal Intention: No Homicidal Ideation: No Homicidal Plan: No Homicidal Intention: No Insight: Poor Judgment: Poor Assessment and Plan - Assessment (1) Bipolar disorder current episode depressed Code(s): F31.30 - Bipolar disorder, current episode depressed, mild or moderate severity, unspecified Status: Acute (2) PTSD (post-traumatic stress disorder) Code(s): F43.10 - Post-traumatic stress disorder, unspecified Status: Acute - Plan Plan: Patient continues with baseline confusion, requiring redirection when agitated but no further ETO's since the weekend. We will continue current treatment. We will continue to monitor mood and behavior. Discharge planning a progress. Justification for Continued Inpatient Stay: At risk of further decompensation at lower level care.
--- NOTE | 2018-06-20 16:12 | P.TTN ---
- Patient Problems Problems: 1. Discharge planning 2. Medication compliance 3. Knowledge deficit 4. Lack of coping skills - Progress Toward Goals Provider Present: Dr. Greta Sam (pleasant no behaviors noted) Provider Input: 06/20/2018; per doctor patient is up and down with mood/behavior , no medication adjustment at this time. 06/15/2018; per doctor patient's is at base line with medication no med changes at this time. 06/08/2018 Patient's pharrmacotherapy is being monitored since being adjusted. patient placement is pending. 06/06/2018; patient's medication are being adjusted, patient was recently transferred to medical and sent back to [facility] to continue care. Nurse(s) Present: RN Nurse Input: 06/20/2018; per RN patient requires prompting with mood/behavior, difficulty following direction due to hearing. 06/15/2018; per RN patient requires coaching and encouragement with treatment, extremely confused and disorganized. 06/08/2018 patient is no taking medication, eating and being more cooperative. He still continues to be delusional. 06/06/2018; patient is taking his medication and eating meals require coaching and prompting with care. Psychiatric Counselors Present: Juanita Erazo LM (patient is a placement issues will continue to look for safe discharge options) Psychiatric Therapist Input: 06/20/2018; DC materials planner continue to explore [facility] options with the [facility]. 06/15/2018; counselor continues to work with [place] with placement. 06/08/2018 continuing to work on proper placement for sucessful discharge when patient is stabilized. 06/06/2018; patient's dc planning will be with an appropriate intermediate or [facility], when accepted. [facility] Group Spec/RT/OT/DYER Present: MANISHA Mobley, Lionel Benson, OT Group Spec/RT/OT/DYER Input: 06/20/2018; per OT/RT patient lacks insight with group participation. 06/15/2018 patient lacks motivation with limited insight, unable to attend most groups. 06/06/2018; patient lacks current ability to participate with activities, however he will be encouarged to do so when able. Occupational Therapist Input: Patient is not able to participate in activities - Documentation Teaching Recipient: Patient
[2018-06-20] MEDS: Lidocaine 5% Patch T-DERMAL SCH (20:49)
[2018-06-21] MEDS: Baclofen 10 MG Tablet PO SCH ×3 (00:06→16:13)
[2018-06-21] MEDS: Levothyroxine 50 MCG Tablet PO SCH (06:24)
[2018-06-21] MEDS: levETIRAcetam 250 MG Tablet PO SCH ×2 (08:00→20:55)
[2018-06-21] MEDS: Calcium Carbonate 500 MG Tablet PO SCH ×2 (08:00→20:54)
[2018-06-21] MEDS: Gabapentin 100 MG Capsule PO SCH ×3 (08:00→17:31)
[2018-06-21] MEDS: Divalproex 500 MG DR Tablet PO SCH ×2 (08:01→20:54)
[2018-06-21] MEDS: Sertraline 100 MG Tablet PO SCH (08:02)
[2018-06-21] MEDS: Lactobacillus Acidophilus/L. Spores Tablet PO SCH (08:16)
[2018-06-21] MEDS: Enoxaparin Inj 40 MG/0.4 ML Syringe SQ SCH (08:17)
--- NOTE | 2018-06-21 16:08 | P.PNPSY ---
Subjective Chief Complaint: "I feel like shit" Remarks: Patient seen for follow up; chart reviewed. Discussion with nursing staff reported patient reports sleep, noted to be somewhat somnolent this morning but compliant with medications no ETO's. Patient was found lying hospital bed noted B, cooperative. Patient state he is feeling "I am okay for a person with full-blown pneumonia and cancer" patient focused on discharge stating he is ready to go once he is cleared states he is willing to comply with staff and treatment. Patient also noted to be rambling at times and continued with baseline confusion. Review of Systems All other systems reviewed negative except as stated in HPI Mental Status Examination Appearance: Appropriate Consciousness: Alert Orientation: Person Motor Activity: Abnormal gait (uses walker) Speech: Unremarkable Language: Adequate Fund of Knowledge: Adequate Attention and Concentration: Adequate Memory: Impaired (mild) Mood: Good Affect: Appropriate Thought Process & Associations: Intact Thought Content: Appropriate Hallucination Type: None Delusion Type: Bizarre, Paranoid (lessening) Suicidal Ideation: No Suicidal Plan: No Suicidal Intention: No Homicidal Ideation: No Homicidal Plan: No Homicidal Intention: No Insight: Poor Judgment: Poor Assessment and Plan - Assessment (1) Bipolar disorder current episode depressed Code(s): F31.30 - Bipolar disorder, current episode depressed, mild or moderate severity, unspecified Status: Acute (2) PTSD (post-traumatic stress disorder) Code(s): F43.10 - Post-traumatic stress disorder, unspecified Status: Acute - Plan Plan: Patient continues with baseline confusion, no episodes of agitation or irritability easily redirectable, not requiring ETO's. We will continue current treatment. Continue to monitor mood and behavior. Discharge planning a progress. Justification for Continued Inpatient Stay: At risk of further decompensation at lower level care.
[2018-06-21] MEDS: Lidocaine 5% Patch T-DERMAL SCH (20:55)
[2018-06-22] MEDS: Baclofen 10 MG Tablet PO SCH ×3 (00:46→16:29)
[2018-06-22] MEDS: Levothyroxine 50 MCG Tablet PO SCH (06:06)
[2018-06-22] MEDS: Calcium Carbonate 500 MG Tablet PO SCH ×2 (08:28→21:14)
[2018-06-22] MEDS: levETIRAcetam 250 MG Tablet PO SCH ×2 (08:28→21:14)
[2018-06-22] MEDS: Gabapentin 100 MG Capsule PO SCH ×3 (08:28→17:54)
[2018-06-22] MEDS: Sertraline 100 MG Tablet PO SCH (08:42)
[2018-06-22] MEDS: Enoxaparin Inj 40 MG/0.4 ML Syringe SQ SCH (08:42)
[2018-06-22] MEDS: Divalproex 500 MG DR Tablet PO SCH ×2 (08:42→21:13)
[2018-06-22] MEDS: Lactobacillus Acidophilus/L. Spores Tablet PO SCH (08:43)
[2018-06-22] MEDS ORDERED: Haloperidol Inj 5 MG/ML Ampul ONE (11:09)
--- NOTE | 2018-06-22 11:12 | P.PNPSY ---
Subjective Chief Complaint: "I feel like shit" Remarks: Patient seen for follow-up, chart reviewed. Discussion with nursing staff reported that patient agitated yesterday afternoon but no behavioral disturbances earlier this morning. Patient was found lying hospital bed noted to be upset mentioning wanting nurse to be fired. Patient could not tolerate interview and began to become more more agitated which she began to throw his table tray out of the room and approaching nurses station and yelling which patient required ETO to help address symptoms and agitation. Patient had not required ETO for the past several days and to mostly redirectable. Review of Systems All other systems reviewed negative except as stated in HPI Mental Status Examination Appearance: Appropriate Consciousness: Alert Orientation: Person Motor Activity: Abnormal gait (uses walker) Speech: Unremarkable Language: Adequate Fund of Knowledge: Adequate Attention and Concentration: Adequate Memory: Impaired (mild) Mood: Angry Affect: Other (Agitated) Thought Process & Associations: Other ([place]) Thought Content: Appropriate Hallucination Type: None Delusion Type: Bizarre, Paranoid Suicidal Ideation: No Suicidal Plan: No Suicidal Intention: No Homicidal Ideation: No Homicidal Plan: No Homicidal Intention: No Insight: Poor Judgment: Poor Assessment and Plan - Assessment (1) Bipolar disorder current episode depressed Code(s): F31.30 - Bipolar disorder, current episode depressed, mild or moderate severity, unspecified Status: Acute (2) PTSD (post-traumatic stress disorder) Code(s): F43.10 - Post-traumatic stress disorder, unspecified Status: Acute - Plan Plan: Patient continues with baseline confusion as well as episodes of irritability at times but mostly redirectable but today requiring ETO due to increasingly agitated behavior. Patient received Haldol 5 mg IM/2 mg Ativan IM x1. We will continue to monitor mood and behavior. Continue falls precautions. Discharge planning a progress. Justification for Continued Inpatient Stay: At risk of further decompensation at lower level care.
[2018-06-22] MEDS ORDERED: Haloperidol Inj 5 MG/ML Ampul IM ONE (12:00)
[2018-06-22] MEDS: Lidocaine 5% Patch T-DERMAL SCH (21:20)
[2018-06-23] MEDS: Baclofen 10 MG Tablet PO SCH ×4 (00:20→17:29)
[2018-06-23] MEDS: Levothyroxine 50 MCG Tablet PO SCH (06:37)
[2018-06-23] MEDS: Sertraline 100 MG Tablet PO SCH (09:20)
[2018-06-23] MEDS: Enoxaparin Inj 40 MG/0.4 ML Syringe SQ SCH (09:21)
[2018-06-23] MEDS: Divalproex 500 MG DR Tablet PO SCH ×2 (09:21→21:23)
[2018-06-23] MEDS: levETIRAcetam 250 MG Tablet PO SCH ×2 (09:22→21:23)
[2018-06-23] MEDS: Gabapentin 100 MG Capsule PO SCH ×3 (09:23→17:29)
[2018-06-23] MEDS: Calcium Carbonate 500 MG Tablet PO SCH ×2 (09:24→21:23)
[2018-06-23] MEDS: Lactobacillus Acidophilus/L. Spores Tablet PO SCH (16:25)
--- NOTE | 2018-06-23 17:26 | P.PNPSY ---
Subjective Chief Complaint: "I feel like shit" Remarks: Patient seen for follow-up, chart reviewed. Discussion with nursing staff reported that patient had required ETO yesterday and slept all night and noted to be less irritable today. Patient was found lying hospital bed with noted to be more reactive and engaging interview today stating that he was recommended to have "R and R" which he plans to do. He states that he plans on cooperating with staff and that he has slight shortness of breath at times. Patient continues with baseline confusion. No further episodes of agitation this morning. Patient was noted to be ambulating on the unit and interacting and engaging with staff as well as engaging with physical therapy today. Review of Systems All other systems reviewed negative except as stated in HPI Mental Status Examination Appearance: Appropriate Consciousness: Alert Orientation: Person Motor Activity: Abnormal gait (uses walker) Speech: Unremarkable Language: Adequate Fund of Knowledge: Adequate Attention and Concentration: Adequate Memory: Impaired (mild) Mood: Appropriate Affect: Appropriate Thought Process & Associations: Other ([place]) Thought Content: Appropriate Hallucination Type: None Delusion Type: Bizarre, Paranoid Suicidal Ideation: No Suicidal Plan: No Suicidal Intention: No Homicidal Ideation: No Homicidal Plan: No Homicidal Intention: No Insight: Poor Judgment: Poor Assessment and Plan - Assessment (1) Bipolar disorder current episode depressed Code(s): F31.30 - Bipolar disorder, current episode depressed, mild or moderate severity, unspecified Status: Acute (2) PTSD (post-traumatic stress disorder) Code(s): F43.10 - Post-traumatic stress disorder, unspecified Status: Acute - Plan Plan: Patient continued with baseline confusion, noted to have slight shortness of breath but we will continue to monitor O2 sats as well as supplemental O2 during the evening and night to avoid desaturation. Patient continues to have worsening of O2 saturation we will reconsult hospitalist for continued evaluation. Patient without any episodes of agitation today was able to participate in physical therapy as well. We will continue current treatment. Continue to monitor mood and behavior. Discharge planning a progress. Justification for Continued Inpatient Stay: At risk of further decompensation at lower level care.
[2018-06-23] MEDS: Lidocaine 5% Patch T-DERMAL SCH (21:23)
[2018-06-24] MEDS: Baclofen 10 MG Tablet PO SCH ×3 (00:51→18:01)
[2018-06-24] MEDS: Calcium Carbonate 500 MG Tablet PO SCH ×2 (10:48→21:19)
[2018-06-24] MEDS: Gabapentin 100 MG Capsule PO SCH ×3 (10:48→18:02)
[2018-06-24] MEDS: Enoxaparin Inj 40 MG/0.4 ML Syringe SQ SCH (10:48)
[2018-06-24] MEDS: Levothyroxine 50 MCG Tablet PO SCH (10:48)
[2018-06-24] MEDS: Divalproex 500 MG DR Tablet PO SCH ×2 (10:51→21:19)
[2018-06-24] MEDS: levETIRAcetam 250 MG Tablet PO SCH ×2 (10:52→21:19)
[2018-06-24] MEDS: Sertraline 100 MG Tablet PO SCH (10:53)
--- NOTE | 2018-06-24 16:15 | P.PNPSY ---
Subjective Chief Complaint: "I feel like shit" Remarks: Patient seen for follow-up, chart reviewed. Discussion with nursing staff reported that patient slept this morning with no behavioral issues overnight. Patient was found lying hospital bed with covers over his head was able to wake up to engage in interview today. Patient noted to be confused continues to have hearing impairment which made it difficult to engage in further questioning with patient despite increased volume during interview. Patient is a poor historian but denies any shortness of breath or chest pain and asking if he will be discharged home today. Review of Systems All other systems reviewed negative except as stated in HPI Mental Status Examination Appearance: Appropriate Consciousness: Alert Orientation: Person Motor Activity: Abnormal gait (uses walker) Speech: Unremarkable Language: Adequate Fund of Knowledge: Adequate Attention and Concentration: Adequate Memory: Impaired (mild) Mood: Appropriate Affect: Appropriate Thought Process & Associations: Other ([place]) Thought Content: Appropriate Hallucination Type: None Delusion Type: Bizarre, Paranoid Suicidal Ideation: No Suicidal Plan: No Suicidal Intention: No Homicidal Ideation: No Homicidal Plan: No Homicidal Intention: No Insight: Poor Judgment: Poor Assessment and Plan - Assessment (1) Bipolar disorder current episode depressed Code(s): F31.30 - Bipolar disorder, current episode depressed, mild or moderate severity, unspecified Status: Acute (2) PTSD (post-traumatic stress disorder) Code(s): F43.10 - Post-traumatic stress disorder, unspecified Status: Acute - Plan Plan: We will continue current treatment. Continue to monitor O2 sats as patient at times require supplemental O2 via nasal cannula. We will continue current treatment. Continue to monitor mood and behavior. Encourage patient to maintain personal hygiene and participate in groups and activities. Discharge planning in progress. Justification for Continued Inpatient Stay: At risk of further decompensation at lower level care.
[2018-06-24] MEDS: Lidocaine 5% Patch T-DERMAL SCH (21:19)
[2018-06-25] MEDS: Baclofen 10 MG Tablet PO SCH ×3 (00:14→16:30)
[2018-06-25] MEDS: Levothyroxine 50 MCG Tablet PO SCH (06:45)
--- NOTE | 2018-06-25 09:44 | P.PNPSY ---
Subjective Chief Complaint: "I feel like shit" Remarks: Patient seen in his room with nurse Anna, chart reviewed, patient overall compliant medication, patient napping when I attempted to arouse him he became somewhat irritable. Which is similar to her prior behaviors when awakening. Patient discussed with staff he has shown episodes of irritability over the past day using his walker as an object to be thrown around the halls. However overall he is able to be redirected. For now continue treatment. Placement remains very problematic Review of Systems All other systems reviewed negative except as stated in HPI Mental Status Examination Appearance: Appropriate Consciousness: Alert Orientation: Person Motor Activity: Abnormal gait (uses walker) Speech: Unremarkable Language: Adequate Fund of Knowledge: Adequate Attention and Concentration: Adequate Memory: Impaired (mild) Mood: Angry (At times), Irritable (At times) Affect: Other (Slight increased range and intensity) Thought Process & Associations: Other ([place]) Thought Content: Appropriate Hallucination Type: None Delusion Type: Bizarre, Paranoid Suicidal Ideation: No Suicidal Plan: No Suicidal Intention: No Homicidal Ideation: No Homicidal Plan: No Homicidal Intention: No Insight: Poor Judgment: Poor Assessment and Plan - Assessment (1) Bipolar disorder current episode depressed Code(s): F31.30 - Bipolar disorder, current episode depressed, mild or moderate severity, unspecified Status: Acute (2) PTSD (post-traumatic stress disorder) Code(s): F43.10 - Post-traumatic stress disorder, unspecified Status: Acute - Plan Plan: Patient continues somewhat labile irritable and vaguely paranoid. Overall compliant medication. For now continue treatment Justification for Continued Inpatient Stay: At this time patient would decompensate a place to a lower level of care Discharge Planning: Placement remains quite problematic
[2018-06-25] MEDS: Enoxaparin Inj 40 MG/0.4 ML Syringe SQ SCH (10:53)
[2018-06-25] MEDS: levETIRAcetam 250 MG Tablet PO SCH ×2 (10:54→22:33)
[2018-06-25] MEDS: Divalproex 500 MG DR Tablet PO SCH ×2 (10:54→22:32)
[2018-06-25] MEDS: Calcium Carbonate 500 MG Tablet PO SCH ×2 (10:55→22:33)
[2018-06-25] MEDS: Gabapentin 100 MG Capsule PO SCH ×3 (10:55→18:18)
[2018-06-25] MEDS: Sertraline 100 MG Tablet PO SCH (10:55)
[2018-06-25] MEDS: Lactobacillus Acidophilus/L. Spores Tablet PO SCH (11:01)
[2018-06-25] MEDS: Acetaminophen 325 MG Tablet PO PRN (15:01)
[2018-06-25] MEDS ORDERED: Haloperidol Inj 5 MG/ML Ampul ONE (17:14)
[2018-06-25] MEDS ORDERED: Haloperidol Inj 5 MG/ML Ampul IM ONE (18:15)
[2018-06-25] MEDS: Lidocaine 5% Patch T-DERMAL SCH (22:33)
[2018-06-26] MEDS: Baclofen 10 MG Tablet PO SCH ×3 (00:15→15:20)
[2018-06-26] MEDS: Levothyroxine 50 MCG Tablet PO SCH (06:45)
[2018-06-26] MEDS: Calcium Carbonate 500 MG Tablet PO SCH ×2 (08:40→21:20)
[2018-06-26] MEDS: levETIRAcetam 250 MG Tablet PO SCH ×2 (08:40→21:20)
[2018-06-26] MEDS: Gabapentin 100 MG Capsule PO SCH ×3 (08:40→18:01)
[2018-06-26] MEDS: Sertraline 100 MG Tablet PO SCH (08:40)
[2018-06-26] MEDS: Divalproex 500 MG DR Tablet PO SCH ×2 (08:40→21:20)
[2018-06-26] MEDS: Enoxaparin Inj 40 MG/0.4 ML Syringe SQ SCH (08:42)
[2018-06-26] MEDS: Lactobacillus Acidophilus/L. Spores Tablet PO SCH (09:00)
--- NOTE | 2018-06-26 13:09 | P.PNPSY ---
Subjective Chief Complaint: "I feel like shit" Remarks: Patient was seen and case discussed with nursing. Patient continues to be internally preoccupied and confused. He has not received any ETO's as of yet. Yesterday, patient became aggressive and received an ETO. Mental Status Examination Appearance: Appropriate Consciousness: Alert Orientation: Person Motor Activity: Abnormal gait (uses walker) Speech: Unremarkable Language: Adequate Fund of Knowledge: Adequate Attention and Concentration: Adequate Memory: Impaired (mild) Mood: Angry (At times), Irritable (At times) Affect: Other (Slight increased range and intensity) Thought Process & Associations: Other ([place]) Thought Content: Appropriate Hallucination Type: None Delusion Type: Bizarre, Paranoid Suicidal Ideation: No Suicidal Plan: No Suicidal Intention: No Homicidal Ideation: No Homicidal Plan: No Homicidal Intention: No Insight: Poor Judgment: Poor Assessment and Plan - Assessment (1) Bipolar disorder current episode depressed Code(s): F31.30 - Bipolar disorder, current episode depressed, mild or moderate severity, unspecified Status: Acute (2) PTSD (post-traumatic stress disorder) Code(s): F43.10 - Post-traumatic stress disorder, unspecified Status: Acute - Plan Plan: Continue current treatment plan Justification for Continued Inpatient Stay: Patient would decompensate in a less restrictive setting
[2018-06-26] MEDS ORDERED: Haloperidol Inj 5 MG/ML Ampul ONE (16:25)
[2018-06-26] MEDS ORDERED: Haloperidol Inj 5 MG/ML Ampul IM ONE (17:00)
[2018-06-26] MEDS: Lidocaine 5% Patch T-DERMAL SCH (21:21)
[2018-06-27] MEDS: Baclofen 10 MG Tablet PO SCH ×3 (02:33→16:41)
[2018-06-27] MEDS: Levothyroxine 50 MCG Tablet PO SCH (06:10)
[2018-06-27] MEDS: levETIRAcetam 250 MG Tablet PO SCH ×2 (08:38→21:42)
[2018-06-27] MEDS: Divalproex 500 MG DR Tablet PO SCH ×2 (08:39→21:41)
[2018-06-27] MEDS: Gabapentin 100 MG Capsule PO SCH ×3 (08:39→18:41)
[2018-06-27] MEDS: Calcium Carbonate 500 MG Tablet PO SCH ×2 (08:39→21:42)
[2018-06-27] MEDS: Sertraline 100 MG Tablet PO SCH (08:40)
[2018-06-27] MEDS: Enoxaparin Inj 40 MG/0.4 ML Syringe SQ SCH (08:41)
--- NOTE | 2018-06-27 16:45 | P.PNPSY ---
Subjective Chief Complaint: "I feel like shit" Remarks: Patient seen for follow-up, chart reviewed. Discussion with nursing staff reported that patient patient saturating around 94% on room air, had required ETO over the weekend but none yesterday, eating and drinking well. Patient was found sitting hospital chair noted B, cooperative. Patient noted to continue with baseline confusion believing that he is in the [employer] at this time. Patient not noted to be agitated noted B, cooperative and compliant with treatment. Review of Systems All other systems reviewed negative except as stated in HPI Mental Status Examination Appearance: Appropriate Consciousness: Alert Orientation: Person Motor Activity: Abnormal gait (uses walker) Speech: Unremarkable Language: Adequate Fund of Knowledge: Adequate Attention and Concentration: Adequate Memory: Impaired (mild) Mood: Appropriate Affect: Other (Slight increased range and intensity) Thought Process & Associations: Other ([place]) Thought Content: Appropriate Hallucination Type: None Delusion Type: Bizarre, Paranoid Suicidal Ideation: No Suicidal Plan: No Suicidal Intention: No Homicidal Ideation: No Homicidal Plan: No Homicidal Intention: No Insight: Poor Judgment: Poor Assessment and Plan - Assessment (1) Bipolar disorder current episode depressed Code(s): F31.30 - Bipolar disorder, current episode depressed, mild or moderate severity, unspecified Status: Acute (2) PTSD (post-traumatic stress disorder) Code(s): F43.10 - Post-traumatic stress disorder, unspecified Status: Acute - Plan Plan: Patient currently with continued baseline confusion 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 We will continue current treatment. We will continue to monitor mood and behavior. Continue to monitor O2 saturations. Discharge planning in progress. Justification for Continued Inpatient Stay: At risk of further decompensation at lower level care.
[2018-06-27] MEDS: Lidocaine 5% Patch T-DERMAL SCH (21:48)
[2018-06-28] MEDS: Baclofen 10 MG Tablet PO SCH ×4 (00:15→23:50)
[2018-06-28] MEDS: Levothyroxine 50 MCG Tablet PO SCH (06:49)
[2018-06-28] MEDS: Divalproex 500 MG DR Tablet PO SCH ×2 (08:28→20:51)
[2018-06-28] MEDS: Gabapentin 100 MG Capsule PO SCH ×3 (08:28→17:45)
[2018-06-28] MEDS: Sertraline 100 MG Tablet PO SCH (08:28)
[2018-06-28] MEDS: Lactobacillus Acidophilus/L. Spores Tablet PO SCH (08:29)
[2018-06-28] MEDS: Enoxaparin Inj 40 MG/0.4 ML Syringe SQ SCH (08:29)
[2018-06-28] MEDS: Calcium Carbonate 500 MG Tablet PO SCH ×2 (08:29→21:23)
[2018-06-28] MEDS: levETIRAcetam 250 MG Tablet PO SCH ×2 (08:29→20:52)
--- NOTE | 2018-06-28 15:59 | P.PNPSY ---
Subjective Chief Complaint: "I feel like shit" Remarks: Patient seen for follow-up, chart reviewed. Discussion with nursing staff reported that patient did well last night with no behavioral disturbances and compliant with medications. Patient was found lying hospital bed noted to be awake and alert continues to have impaired hearing but able to interact with interview today. Patient was able to sit up with assistance and eat breakfast. Patient continues with baseline confusion but no episodes of agitation. Review of Systems All other systems reviewed negative except as stated in HPI Mental Status Examination Appearance: Appropriate Consciousness: Alert Orientation: Person Motor Activity: Abnormal gait (uses walker) Speech: Unremarkable Language: Adequate Fund of Knowledge: Adequate Attention and Concentration: Adequate Memory: Impaired (mild) Mood: Appropriate Affect: Other (Slight increased range and intensity) Thought Process & Associations: Other ([place]) Thought Content: Appropriate Hallucination Type: None Delusion Type: Bizarre, Paranoid Suicidal Ideation: No Suicidal Plan: No Suicidal Intention: No Homicidal Ideation: No Homicidal Plan: No Homicidal Intention: No Insight: Poor Judgment: Poor Assessment and Plan - Assessment (1) Bipolar disorder current episode depressed Code(s): F31.30 - Bipolar disorder, current episode depressed, mild or moderate severity, unspecified Status: Acute (2) PTSD (post-traumatic stress disorder) Code(s): F43.10 - Post-traumatic stress disorder, unspecified Status: Acute - Plan Plan: Patient continued with baseline confusion, no episodes of agitation or irritability. Has been compliant with treatment. We will continue to monitor O2 saturation. We will continue the patient to work with physical therapy and maintain adequate hygiene. We will order nursing assistance to have patient's fingernails clipped. Discharge planning a progress. Justification for Continued Inpatient Stay: At risk of further decompensation at lower level care.
[2018-06-28] MEDS: Lidocaine 5% Patch T-DERMAL SCH (20:51)
[2018-06-29] MEDS: Sertraline 100 MG Tablet PO SCH (08:28)
[2018-06-29] MEDS: Levothyroxine 50 MCG Tablet PO SCH (08:28)
[2018-06-29] MEDS: Lactobacillus Acidophilus/L. Spores Tablet PO SCH (08:28)
[2018-06-29] MEDS: Calcium Carbonate 500 MG Tablet PO SCH ×2 (08:28→21:24)
[2018-06-29] MEDS: levETIRAcetam 250 MG Tablet PO SCH ×2 (08:28→21:34)
[2018-06-29] MEDS: Gabapentin 100 MG Capsule PO SCH ×3 (08:28→18:00)
[2018-06-29] MEDS: Enoxaparin Inj 40 MG/0.4 ML Syringe SQ SCH (08:29)
[2018-06-29] MEDS: Divalproex 500 MG DR Tablet PO SCH ×2 (08:29→21:24)
[2018-06-29] MEDS: Baclofen 10 MG Tablet PO SCH ×2 (08:29→16:13)
--- NOTE | 2018-06-29 10:30 | P.PNPSY ---
Subjective Chief Complaint: "I feel like shit" Remarks: Patient seen for follow-up, chart reviewed. Discussion with nursing staff reported that patient has been up all night pacing intrusive at times but redirectable; med compliant. Patient was found lying hospital bed was able to wake up to engage in interview. Patient states he is not having any shortness of breath or difficulty breathing stating that he is feeling "alright". Patient continues to be noted to be confused making random statements but was able to sit up and have breakfast this morning. No episodes of irritability, intrusiveness or agitation this morning. Review of Systems All other systems reviewed negative except as stated in HPI Mental Status Examination Appearance: Appropriate Consciousness: Alert Orientation: Person Motor Activity: Abnormal gait (uses walker) Speech: Unremarkable Language: Adequate Fund of Knowledge: Adequate Attention and Concentration: Adequate Memory: Impaired (mild) Mood: Appropriate Affect: Appropriate Thought Process & Associations: Other ([place]) Thought Content: Appropriate Hallucination Type: None Delusion Type: Bizarre Suicidal Ideation: No Suicidal Plan: No Suicidal Intention: No Homicidal Ideation: No Homicidal Plan: No Homicidal Intention: No Insight: Poor Judgment: Poor Assessment and Plan - Assessment (1) Bipolar disorder current episode depressed Code(s): F31.30 - Bipolar disorder, current episode depressed, mild or moderate severity, unspecified Status: Acute (2) PTSD (post-traumatic stress disorder) Code(s): F43.10 - Post-traumatic stress disorder, unspecified Status: Acute - Plan Plan: Patient currently continued with baseline confusion, redirectable, compliant with medications. No episodes of agitation. We will continue current treatment. We will continue to monitor mood and behavior. Discharge planning in progress. Justification for Continued Inpatient Stay: At risk of further decompensation at lower level care.
--- NOTE | 2018-06-29 15:07 | P.TTN ---
- Patient Problems Problems: 1. Discharge planning 2. Medication compliance 3. Knowledge deficit 4. Lack of coping skills - Progress Toward Goals Provider Present: Dr. Greta Sam (pleasant no behaviors noted) Provider Input: 06/29/2018; patient is stabilized on medical meds no current med change required. 06/20/2018; per doctor patient is up and down with mood/ behavior, no medication adjustment at this time. 06/15/2018; per doctor patient 's is at base line with medication no med changes at this time. 06/08/2018 Patient's pharrmacotherapy is being monitored since being adjusted. patient placement is pending. 06/06/2018; patient's medication are being adjusted, patient was recently transferred to medical and sent back to [facility] to continue care. Nurse(s) Present: RN Nurse Input: 06/29/2018; per RN patients behavior is unpredictable, he is eating meals and taking medication, require assistance with his self-care. 12/2017; per RN patient requires prompting with mood/behavior, difficulty following direction due to hearing. 06/15/2018; per RN patient requires coaching and encouragement with treatment, extremely confused and disorganized. 06/08/2018 patient is no taking medication, eating and being more cooperative. He still continues to be delusional. 06/06/2018; patient is taking his medication and eating meals require coaching and prompting with care. Psychiatric Counselors Present: JUAREZ Alan (patient is a placement issues will continue to look for safe discharge options) Psychiatric Therapist Input: 06/29/2018; counselor will work with DC data processing systems project planner with obtaining appropriate Skill nursing. 06/20/2018; DC data processing systems project planner continue to explore LONGTERM options with [facility]. 06/15/2018; [facility]. 06/08/2018 continuing to work on proper placement for sucessful discharge when patient is stabilized. 06/06/2018; patient's dc planning will be with an appropriate assisted or LONGTERM, when accepted. DC data processing systems project [facility] Group Spec/RT/OT/DYER Present: MANISHA Mobley, Lionel Benson, OT Group Spec/RT/OT/DYER Input: 06/29/2018; Per OT patient is not appropriate to participate with activities. 06/20/2018; per OT/RT patient lacks insight with group participation. 06/15/2018 patient lacks motivation with limited insight, unable to attend most groups. 06/06/2018; patient lacks current ability to participate with activities, however he will be encouarged to do so when able. Occupational Therapist Input: Patient is not able to participate in activities - Documentation Teaching Recipient: Patient
[2018-06-29] MEDS: Lidocaine 5% Patch T-DERMAL SCH (21:26)
[2018-06-30] MEDS: Baclofen 10 MG Tablet PO SCH ×3 (00:38→18:47)
[2018-06-30] MEDS: Levothyroxine 50 MCG Tablet PO SCH (06:07)
[2018-06-30] MEDS: Calcium Carbonate 500 MG Tablet PO SCH ×2 (09:17→21:49)
[2018-06-30] MEDS: Sertraline 100 MG Tablet PO SCH (09:17)
[2018-06-30] MEDS: levETIRAcetam 250 MG Tablet PO SCH ×2 (09:18→21:51)
[2018-06-30] MEDS: Lactobacillus Acidophilus/L. Spores Tablet PO SCH (09:18)
[2018-06-30] MEDS: Gabapentin 100 MG Capsule PO SCH ×3 (09:19→18:46)
[2018-06-30] MEDS: Divalproex 500 MG DR Tablet PO SCH ×2 (09:19→21:49)
[2018-06-30] MEDS: Enoxaparin Inj 40 MG/0.4 ML Syringe SQ SCH (09:20)
--- NOTE | 2018-06-30 17:29 | P.PNPSY ---
Subjective Chief Complaint: "I feel like shit" Remarks: Patient seen for follow-up, chart reviewed. Discussion with nursing staff reported that patient redirectable, no ETO's has a compliant and cooperative with staff. Patient was found lying hospital bed was able to engage adequately today for interview stating he is feeling "alright" stating he is feeling better continues to be confused at times during interview and states that he is having adequate bowel movement today. Review of Systems All other systems reviewed negative except as stated in HPI Mental Status Examination Appearance: Appropriate Consciousness: Alert Orientation: Person Motor Activity: Abnormal gait (uses walker) Speech: Unremarkable Language: Adequate Fund of Knowledge: Adequate Attention and Concentration: Adequate Memory: Impaired (mild) Mood: Appropriate Affect: Appropriate Thought Process & Associations: Other ([place]) Thought Content: Appropriate Hallucination Type: None Delusion Type: Bizarre Suicidal Ideation: No Suicidal Plan: No Suicidal Intention: No Homicidal Ideation: No Homicidal Plan: No Homicidal Intention: No Insight: Poor Judgment: Poor Assessment and Plan - Assessment (1) Bipolar disorder current episode depressed Code(s): F31.30 - Bipolar disorder, current episode depressed, mild or moderate severity, unspecified Status: Acute (2) PTSD (post-traumatic stress disorder) Code(s): F43.10 - Post-traumatic stress disorder, unspecified Status: Acute - Plan Plan: Patient continues with baseline confusion, cooperative with staff no ETO's and redirectable. We will continue current treatment. Continue to monitor mood and behavior. Discharge planning a progress. Justification for Continued Inpatient Stay: At risk of further decompensation at lower level care.
[2018-06-30] MEDS: Lidocaine 5% Patch T-DERMAL SCH (21:51)
[2018-07-01] MEDS: Baclofen 10 MG Tablet PO SCH ×3 (00:28→15:46)
[2018-07-01] MEDS: Levothyroxine 50 MCG Tablet PO SCH (06:15)
[2018-07-01] MEDS: Sertraline 100 MG Tablet PO SCH (10:13)
[2018-07-01] MEDS: Divalproex 500 MG DR Tablet PO SCH ×2 (10:13→21:26)
[2018-07-01] MEDS: Calcium Carbonate 500 MG Tablet PO SCH ×2 (10:14→21:26)
[2018-07-01] MEDS: Gabapentin 100 MG Capsule PO SCH ×3 (10:14→18:23)
[2018-07-01] MEDS: levETIRAcetam 250 MG Tablet PO SCH ×2 (10:15→21:26)
[2018-07-01] MEDS: Enoxaparin Inj 40 MG/0.4 ML Syringe SQ SCH (10:16)
--- NOTE | 2018-07-01 15:36 | P.PNPSY ---
Subjective Chief Complaint: "I feel like shit" Remarks: Patient seen for follow-up, chart reviewed. Discussion with nursing staff reported that patient with no behavioral disturbances redirectable. Patient was found lying hospital bed and continue to be noted to be confused believing he has a heart operation scheduled but was aware that he has many doctors caring for him in the hospital. Patient denies any physical complaints at this time continues with baseline confusion. Patient has not had any ETO's or behavioral disturbances or agitation recently. Review of Systems All other systems reviewed negative except as stated in HPI Mental Status Examination Appearance: Appropriate Consciousness: Alert Orientation: Person Motor Activity: Abnormal gait (uses walker) Speech: Unremarkable Language: Adequate Fund of Knowledge: Adequate Attention and Concentration: Adequate Memory: Impaired (mild) Mood: Appropriate Affect: Appropriate Thought Process & Associations: Other ([place]) Thought Content: Appropriate Hallucination Type: None Delusion Type: Bizarre Suicidal Ideation: No Suicidal Plan: No Suicidal Intention: No Homicidal Ideation: No Homicidal Plan: No Homicidal Intention: No Insight: Poor Judgment: Poor Assessment and Plan - Assessment (1) Bipolar disorder current episode depressed Code(s): F31.30 - Bipolar disorder, current episode depressed, mild or moderate severity, unspecified Status: Acute (2) PTSD (post-traumatic stress disorder) Code(s): F43.10 - Post-traumatic stress disorder, unspecified Status: Acute - Plan Plan: Patient continues with baseline confusion, no episodes of agitation or irritability. Has been compliant with treatment and care. We will continue current treatment. Continue to monitor mood and behavior. Discharge planning in progress. Justification for Continued Inpatient Stay: At risk of further decompensation at lower level care.
[2018-07-01] MEDS: Lidocaine 5% Patch T-DERMAL SCH (21:26)
[2018-07-02] MEDS: Baclofen 10 MG Tablet PO SCH ×3 (00:15→16:45)
[2018-07-02] MEDS: Levothyroxine 50 MCG Tablet PO SCH ×2 (06:38→08:35)
[2018-07-02] MEDS: Enoxaparin Inj 40 MG/0.4 ML Syringe SQ SCH ×2 (08:34→08:44)
[2018-07-02] MEDS: Calcium Carbonate 500 MG Tablet PO SCH ×2 (08:35→21:00)
[2018-07-02] MEDS: Lactobacillus Acidophilus/L. Spores Tablet PO SCH (08:35)
[2018-07-02] MEDS: Sertraline 100 MG Tablet PO SCH (08:36)
[2018-07-02] MEDS: levETIRAcetam 250 MG Tablet PO SCH ×2 (08:36→21:34)
[2018-07-02] MEDS: Gabapentin 100 MG Capsule PO SCH ×3 (08:36→17:45)
[2018-07-02] MEDS: Divalproex 500 MG DR Tablet PO SCH ×2 (08:36→21:34)
--- NOTE | 2018-07-02 17:09 | P.PNPSY ---
Subjective Chief Complaint: "I feel like shit" Remarks: Pt seen and discussed with staff. He has been ETO free for a few days. He remains delusional and confused and selectively refused medications today. He has been ambulating in the [place] but later tried to get to elevator. No SI/HI. Mental Status Examination Appearance: Appropriate Consciousness: Alert Orientation: Person Motor Activity: Abnormal gait (uses walker) Speech: Unremarkable Language: Adequate Fund of Knowledge: Adequate Attention and Concentration: Adequate Memory: Impaired (mild) Mood: Appropriate Affect: Appropriate Thought Process & Associations: Other ([place]) Thought Content: Appropriate Hallucination Type: None Delusion Type: Bizarre Suicidal Ideation: No Suicidal Plan: No Suicidal Intention: No Homicidal Ideation: No Homicidal Plan: No Homicidal Intention: No Insight: Poor Judgment: Poor Assessment and Plan - Assessment (1) Bipolar disorder current episode depressed Code(s): F31.30 - Bipolar disorder, current episode depressed, mild or moderate severity, unspecified Status: Acute (2) PTSD (post-traumatic stress disorder) Code(s): F43.10 - Post-traumatic stress disorder, unspecified Status: Acute - Plan Plan: Continue current treatment plan Continue to monitor mood and behavior. Discharge planning in progress. Justification for Continued Inpatient Stay: psychosis and self care neglect
[2018-07-02] MEDS: Lidocaine 5% Patch T-DERMAL SCH (21:00)
[2018-07-03] MEDS: Baclofen 10 MG Tablet PO SCH ×3 (00:44→16:16)
[2018-07-03] MEDS: Levothyroxine 50 MCG Tablet PO SCH (06:36)
[2018-07-03] MEDS: Lactobacillus Acidophilus/L. Spores Tablet PO SCH (08:15)
[2018-07-03] MEDS: Sertraline 100 MG Tablet PO SCH (08:15)
[2018-07-03] MEDS: Gabapentin 100 MG Capsule PO SCH ×3 (08:15→17:50)
[2018-07-03] MEDS: Enoxaparin Inj 40 MG/0.4 ML Syringe SQ SCH (08:15)
[2018-07-03] MEDS: levETIRAcetam 250 MG Tablet PO SCH ×2 (08:15→20:46)
[2018-07-03] MEDS: Calcium Carbonate 500 MG Tablet PO SCH ×2 (08:15→20:46)
[2018-07-03] MEDS: Divalproex 500 MG DR Tablet PO SCH ×2 (08:15→20:46)
--- NOTE | 2018-07-03 18:21 | P.PNPSY ---
Subjective Chief Complaint: "I feel like shit" Remarks: Pt seen and discussed with staff. He has been up out of bed and alert today. He remains confused but has been more active and engaged. He is compliant with medications. No behavioral issues or verbal outbursts. Mental Status Examination Appearance: Appropriate Consciousness: Alert Orientation: Person Motor Activity: Abnormal gait (uses walker) Speech: Unremarkable Language: Adequate Fund of Knowledge: Adequate Attention and Concentration: Adequate Memory: Impaired (mild) Mood: Appropriate Affect: Appropriate Thought Process & Associations: Other ([place]) Thought Content: Appropriate Hallucination Type: None Delusion Type: Bizarre Suicidal Ideation: No Suicidal Plan: No Suicidal Intention: No Homicidal Ideation: No Homicidal Plan: No Homicidal Intention: No Insight: Poor Judgment: Poor Assessment and Plan - Assessment (1) Bipolar disorder current episode depressed Code(s): F31.30 - Bipolar disorder, current episode depressed, mild or moderate severity, unspecified Status: Acute (2) PTSD (post-traumatic stress disorder) Code(s): F43.10 - Post-traumatic stress disorder, unspecified Status: Acute - Plan Plan: Continue current tx plan Justification for Continued Inpatient Stay: risk of decompensation
[2018-07-03] MEDS: Lidocaine 5% Patch T-DERMAL SCH (21:35)
[2018-07-04] MEDS: Baclofen 10 MG Tablet PO SCH ×3 (00:46→16:16)
[2018-07-04] MEDS: Levothyroxine 50 MCG Tablet PO SCH (06:28)
[2018-07-04] MEDS: Enoxaparin Inj 40 MG/0.4 ML Syringe SQ SCH (10:14)
[2018-07-04] MEDS: Gabapentin 100 MG Capsule PO SCH ×3 (10:15→17:48)
[2018-07-04] MEDS: Sertraline 100 MG Tablet PO SCH (10:16)
[2018-07-04] MEDS: Calcium Carbonate 500 MG Tablet PO SCH ×2 (10:16→21:49)
[2018-07-04] MEDS: Divalproex 500 MG DR Tablet PO SCH ×2 (10:17→21:46)
[2018-07-04] MEDS: levETIRAcetam 250 MG Tablet PO SCH ×2 (10:34→21:47)
--- NOTE | 2018-07-04 14:31 | P.TTN ---
- Patient Problems Problems: 1. Discharge planning 2. Medication compliance 3. Knowledge deficit 4. Lack of coping skills - Progress Toward Goals Provider Present: Dr. Greta Sam (pleasant no behaviors noted) Provider Input: 07/04/2018; per doctor no required medication changes, patient has highs and lows with unpredictable behabivor, pending placement. 06/29/2018 ; patient is stabilized on medical meds no current med change required. 2017; per doctor patient is up and down with mood/behavior, no medication adjustment at this time. 06/15/2018; per doctor patient's is at base line with medication no med changes at this time. 06/08/2018 Patient's pharrmacotherapy is being monitored since being adjusted. patient placement is pending. 2017; patient's medication are being adjusted, patient was recently transferred to medical and sent back to [facility] to continue care. Nurse(s) Present: REID Castillo Nurse Input: 07/04/2018; per RN patient's behavior is very unpredicable requires redirection and prompting with care, meals, medication and behavior. 06/29/2018; per RN patients behavior is unpredictable, he is eating meals and taking medication, require assistance with his self-care. 06/20/2018; per RN patient requires prompting with mood/behavior, difficulty following direction due to hearing. 06/15/2018; per RN patient requires coaching and encouragement with treatment, extremely confused and disorganized. 06/08/2018 patient is no taking medication, eating and being more cooperative. He still continues to be delusional. 06/06/2018; patient is taking his medication and eating meals require coaching and prompting with care. Psychiatric Counselors Present: JUAREZ Alan (patient is a placement issues will continue to look for safe discharge options) Psychiatric Therapist Input: 07/04/2018; dc associate merchandise planner [facility] 06/29/2018; counselor will work with DC associate merchandise planner with obtaining appropriate Skill nursing. 06/20/2018; DC associate merchandise planner continue to explore SKILLED NURSING options with [facility]. 06/15/2018; counselor [facility] work [facility] with [facility]. 06/08/2018 continuing to work on proper placement for sucessful discharge when patient is stabilized. 06/06/2018; patient's dc planning will be with an appropriate [facility] or SKILLED NURSING, when accepted. [facility] Group Spec/RT/OT/DYER Present: MANISHA Mobley, Lionel Benson, REMIGIO Group Spec/RT/OT/DYER Input: 07/04/2018; Per OT/RT patient is not group appropriate. 06/29/2018; Per OT patient is not appropriate to participate with activities. 06/20/2018; per OT/RT patient lacks insight with group participation. 06/15/2018 patient lacks motivation with limited insight, unable to attend most groups. 06/06/2018; patient lacks current ability to participate with activities, however he will be encouarged to do so when able. Occupational Therapist Input: Patient is not able to participate in activities - Documentation Teaching Recipient: Patient
--- NOTE | 2018-07-04 18:16 | P.PNPSY ---
Subjective Chief Complaint: "I feel like shit" Remarks: Patient seen for follow-up, chart reviewed. Discussion with nursing staff reported that patient noted he has, has been found to ambulate on the unit. Patient was found and ablated with his walker B, cooperative. With good affect smiling at times. Patient continued baseline confusion stating that he would like this at a meeting with all of the staff to discuss management of current issues. Patient eating and drinking well and denies any physical complaints at this time. Review of Systems All other systems reviewed negative except as stated in HPI Mental Status Examination Appearance: Appropriate Consciousness: Alert Orientation: Person Motor Activity: Abnormal gait (uses walker) Speech: Unremarkable Language: Adequate Fund of Knowledge: Adequate Attention and Concentration: Adequate Memory: Impaired (mild) Mood: Appropriate Affect: Appropriate Thought Process & Associations: Other ([place]) Thought Content: Appropriate Hallucination Type: None Delusion Type: Bizarre Suicidal Ideation: No Suicidal Plan: No Suicidal Intention: No Homicidal Ideation: No Homicidal Plan: No Homicidal Intention: No Insight: Poor Judgment: Poor Assessment and Plan - Assessment (1) Bipolar disorder current episode depressed Code(s): F31.30 - Bipolar disorder, current episode depressed, mild or moderate severity, unspecified Status: Acute (2) PTSD (post-traumatic stress disorder) Code(s): F43.10 - Post-traumatic stress disorder, unspecified Status: Acute - Plan Plan: Confusion no episodes of irritability or agitation. Patient cooperative with treatment and pleasant. Continue current treatment. Continue to monitor mood and behavior. This is putting a progress. Justification for Continued Inpatient Stay: At risk of further decompensation at lower level care.
[2018-07-04] MEDS ORDERED: Haloperidol Inj 5 MG/ML Ampul ONE (18:27)
[2018-07-04] MEDS ORDERED: Haloperidol Inj 5 MG/ML Ampul IM ONE (18:30)
[2018-07-04] MEDS: Lidocaine 5% Patch T-DERMAL SCH (21:48)
[2018-07-05] MEDS: Baclofen 10 MG Tablet PO SCH ×4 (02:54→23:26)
[2018-07-05] MEDS: levETIRAcetam 250 MG Tablet PO SCH ×2 (10:13→20:43)
[2018-07-05] MEDS: Calcium Carbonate 500 MG Tablet PO SCH ×2 (10:13→20:44)
[2018-07-05] MEDS: Divalproex 500 MG DR Tablet PO SCH ×2 (10:17→20:43)
[2018-07-05] MEDS: Sertraline 100 MG Tablet PO SCH (10:17)
[2018-07-05] MEDS: Enoxaparin Inj 40 MG/0.4 ML Syringe SQ SCH (10:18)
[2018-07-05] MEDS: Gabapentin 100 MG Capsule PO SCH ×3 (10:18→17:57)
[2018-07-05] MEDS: Levothyroxine 50 MCG Tablet PO SCH (10:21)
[2018-07-05] MEDS: Lactobacillus Acidophilus/L. Spores Tablet PO SCH (10:25)
--- NOTE | 2018-07-05 16:08 | P.PNPSY ---
Subjective Chief Complaint: "I feel like shit" Remarks: Patient seen for follow-up, chart reviewed. Discussion with nursing staff reported that patient had required ETO yesterday afternoon but had been in good behavioral control since. Patient was found lying hospital bed noted B, cooperative. Patient state he is feeling "alright" denying any physical complaints at this time continues be noted very concrete but noted to be pleasant with interview today. Patient continued with baseline confusion. Review of Systems All other systems reviewed negative except as stated in HPI Mental Status Examination Appearance: Appropriate Consciousness: Alert Orientation: Person Motor Activity: Abnormal gait (uses walker) Speech: Unremarkable Language: Adequate Fund of Knowledge: Adequate Attention and Concentration: Adequate Memory: Impaired (mild) Mood: Appropriate Affect: Appropriate Thought Process & Associations: Other ([place]) Thought Content: Appropriate Hallucination Type: None Delusion Type: Bizarre Suicidal Ideation: No Suicidal Plan: No Suicidal Intention: No Homicidal Ideation: No Homicidal Plan: No Homicidal Intention: No Insight: Poor Judgment: Poor Assessment and Plan - Assessment (1) Bipolar disorder current episode depressed Code(s): F31.30 - Bipolar disorder, current episode depressed, mild or moderate severity, unspecified Status: Acute (2) PTSD (post-traumatic stress disorder) Code(s): F43.10 - Post-traumatic stress disorder, unspecified Status: Acute - Plan Plan: Patient had required ETO yesterday afternoon but since has been in good behavioral control no longer needing any further ETO's today. Patient was noted to be calm, cooperative and pleasant during interview today. We will continue current treatment. We will continue to monitor mood and behavior. Discharge planning in progress. Justification for Continued Inpatient Stay: At risk of further decompensation at lower level care.
[2018-07-05] MEDS: Lidocaine 5% Patch T-DERMAL SCH (20:42)
[2018-07-06] MEDS: Lactobacillus Acidophilus/L. Spores Tablet PO SCH (08:40)
[2018-07-06] MEDS: Calcium Carbonate 500 MG Tablet PO SCH ×2 (08:40→22:03)
[2018-07-06] MEDS: Divalproex 500 MG DR Tablet PO SCH ×2 (08:40→22:03)
[2018-07-06] MEDS: Baclofen 10 MG Tablet PO SCH ×2 (08:41→17:21)
[2018-07-06] MEDS: levETIRAcetam 250 MG Tablet PO SCH ×2 (08:41→22:02)
[2018-07-06] MEDS: Sertraline 100 MG Tablet PO SCH (08:41)
[2018-07-06] MEDS: Levothyroxine 50 MCG Tablet PO SCH (08:41)
[2018-07-06] MEDS: Gabapentin 100 MG Capsule PO SCH ×3 (08:41→17:21)
[2018-07-06] MEDS: Enoxaparin Inj 40 MG/0.4 ML Syringe SQ SCH (08:42)
[2018-07-06] MEDS ORDERED: Haloperidol Inj 5 MG/ML Ampul IM ONE (13:00)
--- NOTE | 2018-07-06 16:07 | P.PNPSY ---
Subjective Chief Complaint: "I feel like shit" Remarks: Patient seen for follow-up, chart reviewed. Discussion with nursing staff reported that. Patient was found to be calm and cooperative. Patient continues to be noted to be at baseline, the patient later on was noted to be increasingly agitated on the unit demanding to smoke which patient required ETO to manage agitation and was in good behavioral contol since. Review of Systems All other systems reviewed negative except as stated in HPI Mental Status Examination Appearance: Appropriate Consciousness: Alert Orientation: Person Motor Activity: Abnormal gait (uses walker) Speech: Unremarkable Language: Adequate Fund of Knowledge: Adequate Attention and Concentration: Adequate Memory: Impaired (mild) Mood: Appropriate Affect: Appropriate Thought Process & Associations: Other ([place]) Thought Content: Appropriate Hallucination Type: None Delusion Type: Bizarre Suicidal Ideation: No Suicidal Plan: No Suicidal Intention: No Homicidal Ideation: No Homicidal Plan: No Homicidal Intention: No Insight: Poor Judgment: Poor Assessment and Plan - Assessment (1) Bipolar disorder current episode depressed Code(s): F31.30 - Bipolar disorder, current episode depressed, mild or moderate severity, unspecified Status: Acute (2) PTSD (post-traumatic stress disorder) Code(s): F43.10 - Post-traumatic stress disorder, unspecified Status: Acute - Plan Plan: Patient at this time has been cooperative with staff but confused at baseline but has required ETO on occasion. Continue current treatment. Continue to monitor mood and behavior. Discharge planning in progress. Justification for Continued Inpatient Stay: At risk of further decompensation at lower level care.
[2018-07-06] MEDS: Lidocaine 5% Patch T-DERMAL SCH (22:01)
[2018-07-07] MEDS: Divalproex 500 MG DR Tablet PO SCH ×3 (00:37→20:34)
[2018-07-07] MEDS: levETIRAcetam 250 MG Tablet PO SCH ×3 (00:39→20:34)
[2018-07-07] MEDS: Baclofen 10 MG Tablet PO SCH ×3 (03:13→16:15)
[2018-07-07] MEDS: Levothyroxine 50 MCG Tablet PO SCH ×2 (06:08→08:22)
--- NOTE | 2018-07-07 08:02 | P.PNPSY ---
Subjective Chief Complaint: "I feel like shit" Remarks: Patient seen for follow-up, chart reviewed. Discussion with nursing staff reported that patient slept, and had ETO yesterday afternoon after patient was attempted to leave the unit to go smoke we will continue with baseline confusion. Patient was found lying hospital bed was able to wake up superficially engaging in interview as he was slightly somnolent this morning. Patient state he is feeling "alright" was able to recognize that tag writer came in to see him earlier in the day. Patient denies any physical complaints at this time. Patient with good eye contact and adequate affect during interview. Review of Systems All other systems reviewed negative except as stated in HPI Mental Status Examination Appearance: Appropriate Consciousness: Alert Orientation: Person Motor Activity: Abnormal gait (uses walker) Speech: Unremarkable Language: Adequate Fund of Knowledge: Adequate Attention and Concentration: Adequate Memory: Impaired (mild) Mood: Appropriate Affect: Appropriate Thought Process & Associations: Other ([place]) Thought Content: Appropriate Hallucination Type: None Delusion Type: Bizarre Suicidal Ideation: No Suicidal Plan: No Suicidal Intention: No Homicidal Ideation: No Homicidal Plan: No Homicidal Intention: No Insight: Poor Judgment: Poor Assessment and Plan - Assessment (1) Bipolar disorder current episode depressed Code(s): F31.30 - Bipolar disorder, current episode depressed, mild or moderate severity, unspecified Status: Acute (2) PTSD (post-traumatic stress disorder) Code(s): F43.10 - Post-traumatic stress disorder, unspecified Status: Acute - Plan Plan: Patient continued with baseline confusion which at times can cause irritability as he is demanding at times but mostly redirectable. Patient to continue current treatment. We will continue to monitor mood and behavior. Discharge planning in progress. Justification for Continued Inpatient Stay: At risk of further decompensation at lower level care.
[2018-07-07] MEDS: Enoxaparin Inj 40 MG/0.4 ML Syringe SQ SCH (08:22)
[2018-07-07] MEDS: Sertraline 100 MG Tablet PO SCH (08:23)
[2018-07-07] MEDS: Calcium Carbonate 500 MG Tablet PO SCH ×2 (08:23→20:35)
[2018-07-07] MEDS: Lactobacillus Acidophilus/L. Spores Tablet PO SCH (08:23)
[2018-07-07] MEDS: Gabapentin 100 MG Capsule PO SCH ×3 (08:23→17:35)
[2018-07-07] MEDS: Lidocaine 5% Patch T-DERMAL SCH (20:34)
[2018-07-08] MEDS: Baclofen 10 MG Tablet PO SCH ×3 (00:21→16:44)
[2018-07-08] MEDS: Levothyroxine 50 MCG Tablet PO SCH (06:01)
[2018-07-08] MEDS: Sertraline 100 MG Tablet PO SCH (11:04)
[2018-07-08] MEDS: Gabapentin 100 MG Capsule PO SCH ×3 (11:05→17:26)
[2018-07-08] MEDS: Enoxaparin Inj 40 MG/0.4 ML Syringe SQ SCH (11:05)
[2018-07-08] MEDS: Calcium Carbonate 500 MG Tablet PO SCH ×2 (11:05→20:41)
[2018-07-08] MEDS: Divalproex 500 MG DR Tablet PO SCH ×2 (11:06→20:40)
[2018-07-08] MEDS: levETIRAcetam 250 MG Tablet PO SCH ×2 (11:06→20:41)
[2018-07-08] MEDS: Lidocaine 5% Patch T-DERMAL SCH (20:41)
--- NOTE | 2018-07-08 21:09 | P.PNPSY ---
Subjective Chief Complaint: "I feel like shit" Remarks: Patient seen for follow-up, chart reviewed. Discussion with nursing staff reported that patient no ETO's, slept last night. Patient was found lying in hospital bed was able to wake up and engage superficially in interview today. Patient states that he is feeling "all right" that he is just getting up but denies any physical complaints. She states planning in taking a shower today and having breakfast. She continues to be noted to have baseline confusion. Review of Systems All other systems reviewed negative except as stated in HPI Mental Status Examination Appearance: Appropriate Consciousness: Alert Orientation: Person Motor Activity: Abnormal gait (uses walker) Speech: Unremarkable Language: Adequate Fund of Knowledge: Adequate Attention and Concentration: Adequate Memory: Impaired (mild) Mood: Appropriate Affect: Appropriate Thought Process & Associations: Other ([place]) Thought Content: Appropriate Hallucination Type: None Delusion Type: Bizarre Suicidal Ideation: No Suicidal Plan: No Suicidal Intention: No Homicidal Ideation: No Homicidal Plan: No Homicidal Intention: No Insight: Poor Judgment: Poor Assessment and Plan - Assessment (1) Bipolar disorder current episode depressed Code(s): F31.30 - Bipolar disorder, current episode depressed, mild or moderate severity, unspecified Status: Acute (2) PTSD (post-traumatic stress disorder) Code(s): F43.10 - Post-traumatic stress disorder, unspecified Status: Acute - Plan Plan: Patient is secondary to baseline confusion, no behavioral disturbances recently , has been noted to be ambulatory with adequate p.o. intake. Continue current treatment. Continue to monitor mood and behavior. Discharge planning in progress. Justification for Continued Inpatient Stay: At risk of further decompensation at lower level care.
[2018-07-09] MEDS: Baclofen 10 MG Tablet PO SCH ×4 (00:30→23:14)
[2018-07-09] MEDS: Levothyroxine 50 MCG Tablet PO SCH (06:34)
[2018-07-09] MEDS: Divalproex 500 MG DR Tablet PO SCH ×2 (08:39→20:27)
[2018-07-09] MEDS: Sertraline 100 MG Tablet PO SCH (08:39)
[2018-07-09] MEDS: Calcium Carbonate 500 MG Tablet PO SCH ×2 (08:39→20:27)
[2018-07-09] MEDS: Gabapentin 100 MG Capsule PO SCH ×3 (08:40→18:31)
[2018-07-09] MEDS: levETIRAcetam 250 MG Tablet PO SCH ×2 (08:40→20:27)
[2018-07-09] MEDS: Enoxaparin Inj 40 MG/0.4 ML Syringe SQ SCH (08:40)
[2018-07-09] MEDS: Lactobacillus Acidophilus/L. Spores Tablet PO SCH (08:44)
[2018-07-09] MEDS: Acetaminophen 325 MG Tablet PO PRN (08:44)
--- NOTE | 2018-07-09 12:08 | P.PNPSY ---
Subjective Chief Complaint: "I feel like shit" Remarks: Patient seen and examined with nurse in weekend coverage for Dr. Sam. Chart reviewed. Case discussed with nursing staff reports patient is unchanged from previous days. He has not required any ETO's overnight. On my examination today, the patient is initially somewhat recalcitrant and reluctant to participate in interview. He does eventually come around and talk with me for a while. No SI, HI verbalized. No psychotic material. No side effects from medications. No acute physical complaints. Vital Signs Temp Pulse Resp BP Pulse Ox 07/09/18 06:00 97.8 F 70 16 98/72 L 96 07/08/18 18:01 98.1 F 67 17 109/68 95 Intake and Output 07/08/18 07/09/18 07/09/18 22:59 06:59 14:59 Intake Total 960 / 960 720 / 720 Balance 960 / 960 720 / 720 Intake: Oral 960 / 960 720 / 720 Other: # Voids 1 3 Labs reviewed. Review of Systems All other systems reviewed negative except as stated in HPI Mental Status Examination Appearance: Appropriate Consciousness: Alert Orientation: Person Motor Activity: Other (No hand tremor, no dystonia, no dyskinesia noted.) Speech: Unremarkable Language: Adequate Fund of Knowledge: Adequate Attention and Concentration: Adequate Memory: Impaired (mild) Mood: Appropriate Affect: Irritable (Mild) Thought Process & Associations: Other ([place]) Thought Content: Appropriate Hallucination Type: None Delusion Type: Bizarre Suicidal Ideation: No Homicidal Ideation: No Insight: Poor Judgment: Poor Assessment and Plan - Assessment (1) Bipolar disorder current episode depressed Code(s): F31.30 - Bipolar disorder, current episode depressed, mild or moderate severity, unspecified Status: Acute (2) PTSD (post-traumatic stress disorder) Code(s): F43.10 - Post-traumatic stress disorder, unspecified Status: Acute - Plan Plan: Continue Depakote, Seroquel and Zoloft as ordered. Continue to monitor on the inpatient unit. Continue other medications and care as ordered. Justification for Continued Inpatient Stay: Risk for decompensation and less restrictive environment. Discharge Planning: Per Dr. Sam
[2018-07-09] MEDS: Lidocaine 5% Patch T-DERMAL SCH (20:26)
[2018-07-10] MEDS: Levothyroxine 50 MCG Tablet PO SCH (06:50)
[2018-07-10] MEDS: levETIRAcetam 250 MG Tablet PO SCH ×2 (08:28→21:21)
[2018-07-10] MEDS: Sertraline 100 MG Tablet PO SCH (08:28)
[2018-07-10] MEDS: Enoxaparin Inj 40 MG/0.4 ML Syringe SQ SCH (08:29)
[2018-07-10] MEDS: Divalproex 500 MG DR Tablet PO SCH ×2 (08:29→21:20)
[2018-07-10] MEDS: Baclofen 10 MG Tablet PO SCH ×2 (08:30→16:53)
[2018-07-10] MEDS: Gabapentin 100 MG Capsule PO SCH ×3 (08:30→17:01)
[2018-07-10] MEDS: Calcium Carbonate 500 MG Tablet PO SCH ×2 (08:30→21:20)
[2018-07-10] MEDS: Lactobacillus Acidophilus/L. Spores Tablet PO SCH (08:31)
[2018-07-10] MEDS ORDERED: Haloperidol Inj 5 MG/ML Ampul IM STA (12:00)
--- NOTE | 2018-07-10 12:44 | P.PNPSY ---
Subjective Chief Complaint: "I feel like shit" Remarks: Patient seen and examined with nurse in weekend coverage for Dr. Sam. Chart reviewed. Case discussed with nursing staff. On my examination today, the patient is irascible. He grows agitated while ambulating around the unit and throws a container of utensils across the floor. He struggles with staff as they endeavor to escort him back to his room. I have ordered the patient medicated with Haldol and Ativan ETO. No evident side effects from medications. No acute physical complaints. Vital Signs Temp Pulse Resp BP Pulse Ox 07/09/18 19:22 97.2 F L 71 16 142/65 H 96 Intake and Output 07/09/18 07/10/18 07/10/18 22:59 06:59 14:59 Intake Total 1200 / 1200 480 / 480 Balance 1200 / 1200 480 / 480 Intake: Oral 1200 / 1200 480 / 480 Other: # Voids 1 1 Labs reviewed. Review of Systems unobtainable due to mental condition Mental Status Examination Appearance: Appropriate Consciousness: Alert Orientation: Person Motor Activity: Other (No motor abnormalities noted) Speech: Unremarkable Language: Adequate Fund of Knowledge: Adequate Attention and Concentration: Adequate Memory: Impaired (mild) Mood: Appropriate, Angry, Oppositional Affect: Irritable Thought Process & Associations: Other ([place]) Thought Content: Appropriate Hallucination Type: None Delusion Type: Bizarre Suicidal Ideation: No Homicidal Ideation: No Insight: Poor Judgment: Poor Assessment and Plan - Assessment (1) Bipolar disorder current episode depressed Code(s): F31.30 - Bipolar disorder, current episode depressed, mild or moderate severity, unspecified Status: Acute (2) PTSD (post-traumatic stress disorder) Code(s): F43.10 - Post-traumatic stress disorder, unspecified Status: Acute - Plan Plan: Haldol and Ativan ETO as noted above. I will titrate patient's daytime doses of Seroquel to 125 mg morning and afternoon to try to help manage patient's intermittent irritability and agitation. Continue to monitor on the medical psychiatric unit. Continue other medications and care as ordered. Justification for Continued Inpatient Stay: Medication changes. Risk for decompensation and less restrictive environment. Discharge Planning: Per Dr. Sam
[2018-07-10] MEDS: QUEtiapine 25 MG Tablet PO SCH (14:35)
[2018-07-10] MEDS: Lidocaine 5% Patch T-DERMAL SCH (21:21)
[2018-07-11] MEDS: Baclofen 10 MG Tablet PO SCH ×3 (00:08→18:31)
[2018-07-11] MEDS: Levothyroxine 50 MCG Tablet PO SCH (06:05)
[2018-07-11] MEDS: Sertraline 100 MG Tablet PO SCH (10:36)
[2018-07-11] MEDS: Calcium Carbonate 500 MG Tablet PO SCH ×2 (10:36→20:54)
[2018-07-11] MEDS: levETIRAcetam 250 MG Tablet PO SCH ×2 (10:36→20:53)
[2018-07-11] MEDS: Gabapentin 100 MG Capsule PO SCH ×3 (10:36→18:33)
[2018-07-11] MEDS: Divalproex 500 MG DR Tablet PO SCH ×2 (10:37→20:54)
[2018-07-11] MEDS: Enoxaparin Inj 40 MG/0.4 ML Syringe SQ SCH (10:37)
[2018-07-11] MEDS: QUEtiapine 25 MG Tablet PO SCH ×2 (10:41→13:14)
--- NOTE | 2018-07-11 12:12 | P.TTN ---
- Patient Problems Problems: 1. Discharge planning 2. Medication compliance 3. Knowledge deficit 4. Lack of coping skills - Progress Toward Goals Provider Present: Dr. Greta Sam (pleasant no behaviors noted) Provider Input: 07/11/2018; per doctor no medication adjustment at this time. 07/04/2018; per doctor no required medication changes, patient has highs and lows with unpredictable behabivor, pending placement. 06/29/2018; patient is stabilized on medical meds no current med change required. 06/20/2018; per doctor patient is up and down with mood/behavior, no medication adjustment at this time. 06/15/2018; per doctor patient's is at base line with medication no med changes at this time. 06/08/2018 Patient's pharrmacotherapy is being monitored since being adjusted. patient placement is pending. 06/06/2018; patient's medication are being adjusted, patient was recently transferred to medical and sent back to [facility] to continue care. Nurse(s) Present: REID Castillo Nurse Input: 07/11/2018; per RN patient's has no behavior, however he is very unpredictable. 07/04/2018; per RN patient's behavior is very unpredicable requires redirection and prompting with care, meals, medication and behavior. 06/29/2018; per RN patients behavior is unpredictable, he is eating meals and taking medication, require assistance with his self-care. 06/20/2018; per RN patient requires prompting with mood/behavior, difficulty following direction due to hearing. 06/15/2018; per RN patient requires coaching and encouragement with treatment, extremely confused and disorganized. 06/08/2018 patient is no taking medication, eating and being more cooperative. He still continues to be delusional. 06/06/2018; patient is taking his medication and eating meals require coaching and prompting with care. Psychiatric Counselors Present: JUAREZ Alan (patient is a placement issues will continue to look for safe discharge options) Psychiatric Therapist Input: 07/11/2018; patient is being assess for [facility] placement through [place]. 07/04/2018; [facility] ; counselor will work with DC site planner with obtaining appropriate Skill nursing. 06/20/2018; DC site planner continue to explore [facility] options with the [facility]. 06/15/2018; counselor [facility]. 06/08/2018 continuing to work on proper placement for sucessful discharge when patient is stabilized. 06/06/2018; patient's dc planning will be with an appropriate retirement or [facility], when accepted. [facility] Spec/RT/OT/DYER Present: MANISHA Mobley, Lionel Benson, OT Group Spec/RT/OT/DYER Input: 07/04/2018; Per OT/RT patient is not group appropriate. 06/29/2018; Per OT patient is not appropriate to participate with activities. 06/20/2018; per OT/RT patient lacks insight with group participation. 06/15/2018 patient lacks motivation with limited insight, unable to attend most groups. 06/06/2018; patient lacks current ability to participate with activities, however he will be encouarged to do so when able. Occupational Therapist Input: Patient is not able to participate in activities - Documentation Teaching Recipient: Patient
--- NOTE | 2018-07-11 16:10 | P.PNPSY ---
Subjective Chief Complaint: "I feel like shit" Remarks: Patient seen for follow up; chart reviewed. Discussion with nursing staff reported that patient required ETO last evening and slept throughout the night. Patient was found asleep this morning but continues to be somewhat sedated from ETO this evening. Patient continues with concrete responses was minimally interactive today due to sedation from recent ETO. As per nursing report no further episodes of agitation thereafter. Review of Systems All other systems reviewed negative except as stated in HPI Mental Status Examination Appearance: Appropriate Consciousness: Alert Orientation: Person Motor Activity: Other (No motor abnormalities noted) Speech: Unremarkable Language: Adequate Fund of Knowledge: Adequate Attention and Concentration: Adequate Memory: Impaired (mild) Mood: Other ("alright") Affect: Other (Somewhat somnolent) Thought Process & Associations: Other ([place]) Thought Content: Appropriate Hallucination Type: None Delusion Type: Bizarre Suicidal Ideation: No Suicidal Plan: No Suicidal Intention: No Homicidal Ideation: No Homicidal Plan: No Homicidal Intention: No Insight: Poor Judgment: Poor Assessment and Plan - Assessment (1) Bipolar disorder current episode depressed Code(s): F31.30 - Bipolar disorder, current episode depressed, mild or moderate severity, unspecified Status: Acute (2) PTSD (post-traumatic stress disorder) Code(s): F43.10 - Post-traumatic stress disorder, unspecified Status: Acute - Plan Plan: Patient continues to have occasional episodes of irritability and agitation but responding well to ETO's and mostly redirectable. We will continue current treatment. Continue to monitor mood and behavior. Discharge planning in progress. Justification for Continued Inpatient Stay: At risk of further decompensation at lower level care.
[2018-07-11] MEDS: Lidocaine 5% Patch T-DERMAL SCH (20:54)
[2018-07-12] MEDS: Baclofen 10 MG Tablet PO SCH ×4 (00:49→23:31)
[2018-07-12] MEDS: Enoxaparin Inj 40 MG/0.4 ML Syringe SQ SCH (09:06)
[2018-07-12] MEDS: Calcium Carbonate 500 MG Tablet PO SCH ×2 (09:07→20:20)
[2018-07-12] MEDS: Sertraline 100 MG Tablet PO SCH (09:07)
[2018-07-12] MEDS: Gabapentin 100 MG Capsule PO SCH ×3 (09:07→17:04)
[2018-07-12] MEDS: Levothyroxine 50 MCG Tablet PO SCH (09:07)
[2018-07-12] MEDS: levETIRAcetam 250 MG Tablet PO SCH ×2 (09:07→20:21)
[2018-07-12] MEDS: QUEtiapine 25 MG Tablet PO SCH ×2 (09:08→12:17)
[2018-07-12] MEDS: Lactobacillus Acidophilus/L. Spores Tablet PO SCH (09:08)
[2018-07-12] MEDS: Divalproex 500 MG DR Tablet PO SCH ×2 (09:08→20:29)
[2018-07-12] MEDS: Lidocaine 5% Patch T-DERMAL SCH (20:29)
--- NOTE | 2018-07-12 21:35 | P.PNPSY ---
Subjective Chief Complaint: "I feel like shit" Remarks: Patient seen for follow-up, chart reviewed. Discussion with nursing staff reported that patient no behavioral issues, no ETO's last night. Patient was found lying in hospital bed B, cooperative. Patient noted to be more interactive interview today. Patient focus on his snacks of having peanut butter and jelly sandwiches. Patient was having has not met this evening stating "little groups were killing us". Patient continues to be focused on his sandwiches stated that he wrapped him himself and needed to have them on a daily basis. Patient continued baseline confusion. Review of Systems All other systems reviewed negative except as stated in HPI Mental Status Examination Appearance: Appropriate Consciousness: Alert Orientation: Person Motor Activity: Other (No motor abnormalities noted) Speech: Unremarkable Language: Adequate Fund of Knowledge: Adequate Attention and Concentration: Adequate Memory: Impaired (mild) Mood: Appropriate Affect: Appropriate Thought Process & Associations: Other ([place]) Thought Content: Appropriate Hallucination Type: None Delusion Type: Bizarre Suicidal Ideation: No Suicidal Plan: No Suicidal Intention: No Homicidal Ideation: No Homicidal Plan: No Homicidal Intention: No Insight: Poor Judgment: Poor Assessment and Plan - Assessment (1) Bipolar disorder current episode depressed Code(s): F31.30 - Bipolar disorder, current episode depressed, mild or moderate severity, unspecified Status: Acute (2) PTSD (post-traumatic stress disorder) Code(s): F43.10 - Post-traumatic stress disorder, unspecified Status: Acute - Plan Plan: Patient with no behavioral disturbances, compliant with medications. Continue baseline confusion. Continue current treatment. Continue to monitor mood and behavior. Discharge planning in progress. Justification for Continued Inpatient Stay: At risk of further decompensation at lower level care.
[2018-07-13] MEDS: Sertraline 100 MG Tablet PO SCH (08:26)
[2018-07-13] MEDS: Baclofen 10 MG Tablet PO SCH ×2 (08:26→16:23)
[2018-07-13] MEDS: Calcium Carbonate 500 MG Tablet PO SCH ×2 (08:27→20:33)
[2018-07-13] MEDS: Enoxaparin Inj 40 MG/0.4 ML Syringe SQ SCH (08:27)
[2018-07-13] MEDS: levETIRAcetam 250 MG Tablet PO SCH ×2 (08:27→20:32)
[2018-07-13] MEDS: Gabapentin 100 MG Capsule PO SCH ×3 (08:27→17:21)
[2018-07-13] MEDS: Divalproex 500 MG DR Tablet PO SCH ×2 (08:27→20:32)
[2018-07-13] MEDS: Levothyroxine 50 MCG Tablet PO SCH (08:28)
[2018-07-13] MEDS: QUEtiapine 25 MG Tablet PO SCH ×2 (09:16→12:34)
[2018-07-13] MEDS: Lactobacillus Acidophilus/L. Spores Tablet PO SCH (09:19)
[2018-07-13] MEDS ORDERED: Haloperidol Inj 5 MG/ML Ampul IM ONE (12:02)
[2018-07-13] MEDS ORDERED: Haloperidol Inj 5 MG/ML Ampul ONE (12:03)
--- NOTE | 2018-07-13 13:12 | P.TTN ---
- Patient Problems Problems: 1. Discharge planning 2. Medication compliance 3. Knowledge deficit 4. Lack of coping skills - Progress Toward Goals Provider Present: Dr. Greta Sam (pleasant no behaviors noted) Provider Input: 07/13/2018; per doctor no medication changes at this time. ; per doctor no medication adjustment at this time. 07/04/2018; per doctor no required medication changes, patient has highs and lows with unpredictable behabivor, pending placement. 06/29/2018; patient is stabilized on medical meds no current med change required. 06/20/2018; per doctor patient is up and down with mood/behavior, no medication adjustment at this time. 06/15; per doctor patient's is at base line with medication no med changes at this time. 06/08/2018 Patient's pharrmacotherapy is being monitored since being adjusted. patient placement is pending. 06/06/2018; patient's medication are being adjusted, patient was recently transferred to medical and sent back to [facility] to continue care. Nurse(s) Present: RN Nurse Input: 07/13/18; per RN patient is confused and very disorganized, require redirection due to unpredictable and intrusive behavior. 07/11/2018; per RN patient's has no behavior, however he is very unpredictable. 07/04/2018 ; per RN patient's behavior is very unpredicable requires redirection and prompting with care, meals, medication and behavior. 06/29/2018; per RN patient s behavior is unpredictable, he is eating meals and taking medication, require assistance with his self-care. 06/20/2018; per RN patient requires prompting with mood/behavior, difficulty following direction due to hearing. 06/15/2018; per RN patient requires coaching and encouragement with treatment, extremely confused and disorganized. 06/08/2018 patient is no taking medication, eating and being more cooperative. He still continues to be delusional. 06/06/2018; patient is taking his medication and eating meals require coaching and prompting with care. Psychiatric Counselors Present: JUAREZ Alan (patient is a placement issues will continue to look for safe discharge options) Psychiatric Therapist Input: 07/13/2018; [facility] [place] [facility] [place] [facility] [place] [facility]; [facility] to have [facility] coming to [facility] a [facility]. 07/11/2018; patient is being assess for [facility] placement through [place]. 07/04/2018; dc media planner / buyer [facility]. 06/29/2018; counselor will work with DC media planner / buyer with obtaining appropriate Skill nursing. 06/20/2018; DC media planner / buyer continue to explore [facility] options with [facility]. 06/15/2018; counselor [facility] 2017 continuing to work on proper placement for sucessful discharge when patient is stabilized. 06/06/2018; patient's dc planning will be with an appropriate [facility] or [facility], when accepted. [facility] Group Spec/RT/OT/DYER Present: MANISHA Mobley, Lionel Benson, REMIGIO Group Spec/RT/OT/DYER Input: 07/13/2018; per OT patient is too inappropriate for groups. 07/04/2018; Per OT/RT patient is not group appropriate. 06/29/2018 ; Per OT patient is not appropriate to participate with activities. 06/20/2018 ; per OT/RT patient lacks insight with group participation. 06/15/2018 patient lacks motivation with limited insight, unable to attend most groups. 06/06/2018 ; patient lacks current ability to participate with activities, however he will be encouarged to do so when able. Occupational Therapist Input: Patient is not able to participate in activities - Documentation Teaching Recipient: Patient
--- NOTE | 2018-07-13 14:27 | P.PNPSY ---
Subjective Chief Complaint: "I feel like shit" Remarks: Patient seen for follow up; chart reviewed. Discussion with nursing staff reported that patient noted to be going into other patient's rooms, confused requiring redirection today. Patient initially found ambulating on the unit with walker and continue to be noted attempting to return back to previous room. Patient noted with continued confusion believing that he is working and that his previous room is his office. Patient began to become agitated despite multiple attempts to redirect and required ETO x 1. Review of Systems All other systems reviewed negative except as stated in HPI Mental Status Examination Appearance: Appropriate Consciousness: Alert Orientation: Person Motor Activity: Other (No motor abnormalities noted) Speech: Unremarkable Language: Adequate Fund of Knowledge: Adequate Attention and Concentration: Adequate Memory: Impaired (mild) Mood: Appropriate Affect: Appropriate Thought Process & Associations: Other ([place]) Thought Content: Appropriate Hallucination Type: None Delusion Type: Bizarre Suicidal Ideation: No Suicidal Plan: No Suicidal Intention: No Homicidal Ideation: No Homicidal Plan: No Homicidal Intention: No Insight: Poor Judgment: Poor Assessment and Plan - Assessment (1) Bipolar disorder current episode depressed Code(s): F31.30 - Bipolar disorder, current episode depressed, mild or moderate severity, unspecified Status: Acute (2) PTSD (post-traumatic stress disorder) Code(s): F43.10 - Post-traumatic stress disorder, unspecified Status: Acute - Plan Plan: Patient noted with increased confusion after patient was switched to a different room. ETO was given due to increasing agitation and failed multiple attempts to redirect. Recommend moving patient back to his prior room if possible to avoid any further environmental changes that contribute to his disorientation and confusion resulting in further episodes of agitation. Continue current treatment, continue to monitor mood and behavior. Discharge planning in progress. Justification for Continued Inpatient Stay: At risk for further decompensation at lower level of care.
[2018-07-13] MEDS: Lidocaine 5% Patch T-DERMAL SCH (20:33)
[2018-07-14] MEDS: Baclofen 10 MG Tablet PO SCH ×4 (00:08→18:25)
[2018-07-14] MEDS: Levothyroxine 50 MCG Tablet PO SCH ×2 (08:22→18:25)
[2018-07-14] MEDS: levETIRAcetam 250 MG Tablet PO SCH ×3 (08:22→23:00)
[2018-07-14] MEDS: Calcium Carbonate 500 MG Tablet PO SCH ×3 (08:23→23:00)
[2018-07-14] MEDS: Sertraline 100 MG Tablet PO SCH ×2 (08:23→18:25)
[2018-07-14] MEDS: Gabapentin 100 MG Capsule PO SCH ×3 (08:23→12:47)
[2018-07-14] MEDS: Divalproex 500 MG DR Tablet PO SCH ×3 (08:23→23:00)
[2018-07-14] MEDS: Enoxaparin Inj 40 MG/0.4 ML Syringe SQ SCH ×2 (08:23→18:24)
[2018-07-14] MEDS: Lactobacillus Acidophilus/L. Spores Tablet PO SCH ×2 (08:28→18:24)
[2018-07-14] MEDS: QUEtiapine 25 MG Tablet PO SCH ×2 (11:21→12:47)
--- NOTE | 2018-07-14 16:22 | P.PNPSY ---
Subjective Chief Complaint: "I feel like shit" Remarks: Patient seen for follow-up, chart reviewed. Discussion with nursing staff reported that patient was brought back to his previous room. Patient was found lying hospital bed noted B, cooperative. Patient continued with baseline confusion attending to get up from bed but was able to return and have his breakfast. Patient was able to recognize that he is back in his previous room which he considered his office. No further episodes of agitation or irritability or requiring ETO's. Review of Systems All other systems reviewed negative except as stated in HPI Mental Status Examination Appearance: Appropriate Consciousness: Alert Orientation: Person Motor Activity: Other (No motor abnormalities noted) Speech: Unremarkable Language: Adequate Fund of Knowledge: Adequate Attention and Concentration: Adequate Memory: Impaired (mild) Mood: Appropriate Affect: Appropriate Thought Process & Associations: Other ([place]) Thought Content: Appropriate Hallucination Type: None Delusion Type: Bizarre Suicidal Ideation: No Suicidal Plan: No Suicidal Intention: No Homicidal Ideation: No Homicidal Plan: No Homicidal Intention: No Insight: Poor Judgment: Poor Assessment and Plan - Assessment (1) Bipolar disorder current episode depressed Code(s): F31.30 - Bipolar disorder, current episode depressed, mild or moderate severity, unspecified Status: Acute (2) PTSD (post-traumatic stress disorder) Code(s): F43.10 - Post-traumatic stress disorder, unspecified Status: Acute - Plan Plan: Patient continues with baseline confusion, less episodes of agitation as patient was brought back to his previous room as changes environment because further confusion for patient and irritability. No ETO's since yesterday. We will continue current treatment. Continue to monitor mood and behavior. Discharge planning in progress. Justification for Continued Inpatient Stay: At risk of further decompensation at lower level care.
[2018-07-14] MEDS: Lidocaine 5% Patch T-DERMAL SCH (23:00)
[2018-07-15] MEDS: Baclofen 10 MG Tablet PO SCH ×4 (01:25→23:25)
[2018-07-15] MEDS: Levothyroxine 50 MCG Tablet PO SCH (06:02)
[2018-07-15] MEDS: Enoxaparin Inj 40 MG/0.4 ML Syringe SQ SCH (09:20)
[2018-07-15] MEDS: levETIRAcetam 250 MG Tablet PO SCH ×2 (09:21→21:19)
[2018-07-15] MEDS: QUEtiapine 25 MG Tablet PO SCH ×2 (09:21→13:55)
[2018-07-15] MEDS: Divalproex 500 MG DR Tablet PO SCH ×2 (09:22→21:19)
[2018-07-15] MEDS: Gabapentin 100 MG Capsule PO SCH ×4 (09:23→18:20)
[2018-07-15] MEDS: Sertraline 100 MG Tablet PO SCH (09:23)
[2018-07-15] MEDS: Calcium Carbonate 500 MG Tablet PO SCH ×2 (09:26→21:19)
--- NOTE | 2018-07-15 15:03 | P.PNPSY ---
Subjective Chief Complaint: "I feel like shit" Remarks: Patient seen for follow-up, chart reviewed. Discussion with nursing staff reported that patient with no behavioral disturbances no episodes of agitation or irritability, easily redirectable. Patient was found lying hospital bed noted B, cooperative. Patient states that he is taking all his medications with noted with adequate affect smiling noted to be in good spirits today. Patient denies any pain denies any physical complaints at this time. Patient continued with baseline confusion. Review of Systems All other systems reviewed negative except as stated in HPI Mental Status Examination Appearance: Appropriate Consciousness: Alert Orientation: Person Motor Activity: Other (No motor abnormalities noted) Speech: Unremarkable Language: Adequate Fund of Knowledge: Adequate Attention and Concentration: Adequate Memory: Impaired (mild) Mood: Appropriate Affect: Appropriate Thought Process & Associations: Other ([place]) Thought Content: Appropriate Hallucination Type: None Delusion Type: Bizarre Suicidal Ideation: No Suicidal Plan: No Suicidal Intention: No Homicidal Ideation: No Homicidal Plan: No Homicidal Intention: No Insight: Poor Judgment: Poor Assessment and Plan - Assessment (1) Bipolar disorder current episode depressed Code(s): F31.30 - Bipolar disorder, current episode depressed, mild or moderate severity, unspecified Status: Acute (2) PTSD (post-traumatic stress disorder) Code(s): F43.10 - Post-traumatic stress disorder, unspecified Status: Acute - Plan Plan: Patient continues with good behavioral control, no evidence of agitation, redirectable, eating and drinking well, no physical complaints. Patient is ambulatory on the unit. We will continue current treatment. Continue to monitor mood and behavior. Discharge planning in progress. Justification for Continued Inpatient Stay: At risk of further decompensation at lower level care.
[2018-07-15] MEDS: Lidocaine 5% Patch T-DERMAL SCH (21:19)
[2018-07-16] MEDS: Lactobacillus Acidophilus/L. Spores Tablet PO SCH (08:02)
[2018-07-16] MEDS: Divalproex 500 MG DR Tablet PO SCH ×2 (08:03→20:36)
[2018-07-16] MEDS: Sertraline 100 MG Tablet PO SCH (08:03)
[2018-07-16] MEDS: QUEtiapine 25 MG Tablet PO SCH ×2 (08:03→12:48)
[2018-07-16] MEDS: Levothyroxine 50 MCG Tablet PO SCH (08:03)
[2018-07-16] MEDS: levETIRAcetam 250 MG Tablet PO SCH ×2 (08:03→20:35)
[2018-07-16] MEDS: Calcium Carbonate 500 MG Tablet PO SCH ×2 (08:03→20:35)
[2018-07-16] MEDS: Baclofen 10 MG Tablet PO SCH ×2 (08:03→16:39)
[2018-07-16] MEDS: Gabapentin 100 MG Capsule PO SCH ×3 (08:04→17:54)
[2018-07-16] MEDS: Enoxaparin Inj 40 MG/0.4 ML Syringe SQ SCH (08:04)
--- NOTE | 2018-07-16 14:00 | P.PNPSY ---
Subjective Chief Complaint: "I feel like shit" Remarks: Patient was seen and case discussed with nursing. Patient remains nonsensical and very internally stimulated. As of today, he has not required any ETO's, has been calm pleasant and has not had any outbursts. Mental Status Examination Appearance: Appropriate Consciousness: Alert Orientation: Person Motor Activity: Other (No motor abnormalities noted) Speech: Unremarkable Language: Adequate Fund of Knowledge: Adequate Attention and Concentration: Adequate Memory: Impaired (mild) Mood: Appropriate Affect: Appropriate Thought Process & Associations: Other ([place]) Thought Content: Appropriate Hallucination Type: None Delusion Type: Bizarre Suicidal Ideation: No Suicidal Plan: No Suicidal Intention: No Homicidal Ideation: No Homicidal Plan: No Homicidal Intention: No Insight: Poor Judgment: Poor Assessment and Plan - Assessment (1) Bipolar disorder current episode depressed Code(s): F31.30 - Bipolar disorder, current episode depressed, mild or moderate severity, unspecified Status: Acute (2) PTSD (post-traumatic stress disorder) Code(s): F43.10 - Post-traumatic stress disorder, unspecified Status: Acute - Plan Plan: Continue current treatment plan Justification for Continued Inpatient Stay: Patient would decompensate in a less restrictive setting
[2018-07-16] MEDS: Lidocaine 5% Patch T-DERMAL SCH (20:36)
[2018-07-17] MEDS: Baclofen 10 MG Tablet PO SCH ×3 (00:40→16:17)
[2018-07-17] MEDS: levETIRAcetam 250 MG Tablet PO SCH ×2 (08:26→21:52)
[2018-07-17] MEDS: Sertraline 100 MG Tablet PO SCH (08:26)
[2018-07-17] MEDS: Gabapentin 100 MG Capsule PO SCH ×3 (08:26→17:28)
[2018-07-17] MEDS: Levothyroxine 50 MCG Tablet PO SCH (08:27)
[2018-07-17] MEDS: Calcium Carbonate 500 MG Tablet PO SCH ×2 (08:27→21:53)
[2018-07-17] MEDS: Enoxaparin Inj 40 MG/0.4 ML Syringe SQ SCH (08:27)
[2018-07-17] MEDS: Lactobacillus Acidophilus/L. Spores Tablet PO SCH (08:27)
[2018-07-17] MEDS: QUEtiapine 25 MG Tablet PO SCH ×2 (08:27→12:52)
[2018-07-17] MEDS: Divalproex 500 MG DR Tablet PO SCH ×2 (08:31→21:52)
[2018-07-17] MEDS ORDERED: Haloperidol Inj 5 MG/ML Ampul ONE (10:18)
[2018-07-17] MEDS ORDERED: Haloperidol Inj 5 MG/ML Ampul IM ONE (11:00)
--- NOTE | 2018-07-17 14:12 | P.PNPSY ---
Subjective Chief Complaint: "I feel like shit" Remarks: Patient was seen and case discussed with nursing. Patient is somnolent with this interview. He was very agitated this morning and received an ETO at 10:15 AM. He was intrusive walking into females rooms and telling him to go find a dildo. He was later redirected into his room. Insight remains very poor. Patient remains confused and disorganized Mental Status Examination Appearance: Appropriate Consciousness: Alert Orientation: Person Motor Activity: Other (No motor abnormalities noted) Speech: Unremarkable Language: Adequate Fund of Knowledge: Adequate Attention and Concentration: Adequate Memory: Impaired (mild) Mood: Appropriate Affect: Appropriate Thought Process & Associations: Other ([place]) Thought Content: Appropriate Hallucination Type: None Delusion Type: Bizarre Suicidal Ideation: No Suicidal Plan: No Suicidal Intention: No Homicidal Ideation: No Homicidal Plan: No Homicidal Intention: No Insight: Poor Judgment: Poor Assessment and Plan - Assessment (1) Bipolar disorder current episode depressed Code(s): F31.30 - Bipolar disorder, current episode depressed, mild or moderate severity, unspecified Status: Acute (2) PTSD (post-traumatic stress disorder) Code(s): F43.10 - Post-traumatic stress disorder, unspecified Status: Acute - Plan Plan: Continue current treatment plan Justification for Continued Inpatient Stay: Patient would decompensate in a less restrictive setting
[2018-07-17] MEDS: Lidocaine 5% Patch T-DERMAL SCH (21:53)
[2018-07-18] MEDS: Baclofen 10 MG Tablet PO SCH ×3 (01:51→16:01)
[2018-07-18] MEDS: Levothyroxine 50 MCG Tablet PO SCH (06:01)
[2018-07-18] MEDS: levETIRAcetam 250 MG Tablet PO SCH ×2 (08:19→20:52)
[2018-07-18] MEDS: QUEtiapine 25 MG Tablet PO SCH ×2 (08:19→13:12)
[2018-07-18] MEDS: Calcium Carbonate 500 MG Tablet PO SCH ×2 (08:19→20:52)
[2018-07-18] MEDS: Sertraline 100 MG Tablet PO SCH (08:19)
[2018-07-18] MEDS: Gabapentin 100 MG Capsule PO SCH ×3 (08:19→17:40)
[2018-07-18] MEDS: Divalproex 500 MG DR Tablet PO SCH ×2 (08:19→20:52)
[2018-07-18] MEDS: Enoxaparin Inj 40 MG/0.4 ML Syringe SQ SCH (08:20)
--- NOTE | 2018-07-18 14:44 | P.PNPSY ---
Subjective Chief Complaint: "I feel like shit" Remarks: Patient seen for follow-up, chart reviewed. Discussion with nursing staff reported that patient receive ETO yesterday afternoon but has not had any behavioral disturbances since. Patient was found heavily on unit was redirectable back to his room. Patient preservative on having his peanut butter jelly sandwiches. Patient states that his family is coming to visit today. Patient continues with baseline confusion. Denies any physical complaints at this time. Review of Systems All other systems reviewed negative except as stated in HPI Mental Status Examination Appearance: Appropriate Consciousness: Alert Orientation: Person Motor Activity: Other (No motor abnormalities noted) Speech: Unremarkable Language: Adequate Fund of Knowledge: Adequate Attention and Concentration: Adequate Memory: Impaired (mild) Mood: Appropriate Affect: Appropriate Thought Process & Associations: Other ([place]) Thought Content: Appropriate Hallucination Type: None Delusion Type: Bizarre Suicidal Ideation: No Suicidal Plan: No Suicidal Intention: No Homicidal Ideation: No Homicidal Plan: No Homicidal Intention: No Insight: Poor Judgment: Poor Assessment and Plan - Assessment (1) Bipolar disorder current episode depressed Code(s): F31.30 - Bipolar disorder, current episode depressed, mild or moderate severity, unspecified Status: Acute (2) PTSD (post-traumatic stress disorder) Code(s): F43.10 - Post-traumatic stress disorder, unspecified Status: Acute - Plan Plan: Patient continues with baseline confusion, no episodes of agitation or irritability. Patient has been redirectable today, eating and drinking well, denies any physical complaints at this time. We will continue current treatment. We will continue to monitor mood and behavior. Discharge planning in progress. Justification for Continued Inpatient Stay: At risk of further decompensation at lower level care.
[2018-07-18] MEDS: Lidocaine 5% Patch T-DERMAL SCH (20:54)
[2018-07-19] MEDS: Baclofen 10 MG Tablet PO SCH ×3 (02:44→17:46)
[2018-07-19] MEDS: Levothyroxine 50 MCG Tablet PO SCH (06:06)
--- NOTE | 2018-07-19 08:16 | P.PNPSY ---
Subjective Chief Complaint: "I feel like shit" Remarks: Patient seen for follow-up, chart reviewed. Discussion with nursing staff reported that patient with no behavioral disturbances has been calm and cooperative with staff. Patient was found lying hospital bed asleep was able to wake up for interview. Patient states he was having some back pain at night and was requesting medications for the same. He reports having slept relatively well last evening despite the back pain, eating and drinking well no physical complaints at this time. Patient reports his mood has been "okay". Patient continued with baseline confusion believing that he is in his office. Review of Systems All other systems reviewed negative except as stated in HPI Mental Status Examination Appearance: Appropriate Consciousness: Alert Orientation: Person Motor Activity: Other (No motor abnormalities noted) Speech: Unremarkable Language: Adequate Fund of Knowledge: Adequate Attention and Concentration: Adequate Memory: Impaired (mild) Mood: Appropriate Affect: Appropriate Thought Process & Associations: Other ([place]) Thought Content: Appropriate Hallucination Type: None Delusion Type: Bizarre Suicidal Ideation: No Suicidal Plan: No Suicidal Intention: No Homicidal Ideation: No Homicidal Plan: No Homicidal Intention: No Insight: Poor Judgment: Poor Assessment and Plan - Assessment (1) Bipolar disorder current episode depressed Code(s): F31.30 - Bipolar disorder, current episode depressed, mild or moderate severity, unspecified Status: Acute (2) PTSD (post-traumatic stress disorder) Code(s): F43.10 - Post-traumatic stress disorder, unspecified Status: Acute - Plan Plan: Patient mentioning some back pain now and has analgesics ordered for him. Will order labs for monitoring of VPA level. We will continue to monitor mood and behavior. Patient has been ambulatory on the unit, eating and drinking well and continue to require redirection but not requiring ETO's. Continue to monitor mood and behavior. Discharge planning in progress. Justification for Continued Inpatient Stay: At risk of further decompensation at lower level care.
[2018-07-19] MEDS: Sertraline 100 MG Tablet PO SCH (08:28)
[2018-07-19] MEDS: Calcium Carbonate 500 MG Tablet PO SCH ×2 (08:29→21:03)
[2018-07-19] MEDS: Gabapentin 100 MG Capsule PO SCH ×3 (08:30→17:46)
[2018-07-19] MEDS: Enoxaparin Inj 40 MG/0.4 ML Syringe SQ SCH (08:30)
[2018-07-19] MEDS: Lactobacillus Acidophilus/L. Spores Tablet PO SCH (08:30)
[2018-07-19] MEDS: levETIRAcetam 250 MG Tablet PO SCH ×2 (08:31→21:03)
--- NOTE | 2018-07-19 10:18 | P.TTN ---
- Patient Problems Problems: 1. Discharge planning 2. Medication compliance 3. Knowledge deficit 4. Lack of coping skills - Progress Toward Goals Provider Present: Dr. Greta Sam (pleasant no behaviors noted) Provider Input: 07/18/2018: patient mood is extremely unpredictable no imediate med change at this time. 07/13/2018; per doctor no medication changes at this time. 07/11/2018; per doctor no medication adjustment at this time. 07/04/2018 ; per doctor no required medication changes, patient has highs and lows with unpredictable behabivor, pending placement. 06/29/2018; patient is stabilized on medical meds no current med change required. 06/20/2018; per doctor patient is up and down with mood/behavior, no medication adjustment at this time. 06/15; per doctor patient's is at base line with medication no med changes at this time. 06/08/2018 Patient's pharrmacotherapy is being monitored since being adjusted. patient placement is pending. 06/06/2018; patient's medication are being adjusted, patient was recently transferred to medical and sent back to [facility] to continue care. Nurse(s) Present: RN Nurse Input: 07/18/2018: nursing staff reports that patient receive ETO 2017 afternoon. RN states for the most part patient is redirectable, still disorganized. 07/13/18; per RN patient is confused and very disorganized, require redirection due to unpredictable and intrusive behavior. 07/11/2018; per RN patient's has no behavior, however he is very unpredictable. 07/04/2018 ; per RN patient's behavior is very unpredicable requires redirection and prompting with care, meals, medication and behavior. 06/29/2018; per RN patient s behavior is unpredictable, he is eating meals and taking medication, require assistance with his self-care. 06/20/2018; per RN patient requires prompting with mood/behavior, difficulty following direction due to hearing. 06/15/2018; per RN patient requires coaching and encouragement with treatment, extremely confused and disorganized. 06/08/2018 patient is no taking medication, eating and being more cooperative. He still continues to be delusional. 06/06/2018; patient is taking his medication and eating meals require coaching and prompting with care. Psychiatric Counselors Present: JUAREZ Alan (patient is a placement issues will continue to look for safe discharge options) Psychiatric Therapist Input: 07/18/2018: per Blanquita Meza, counselor supervisor burling and joining, [facility] staff will be coming to assess patient 07/22/2018 for appropriate placement. 07/13/2018; patient dc plan is with a [facility] SNF or nursing home setting; he continues to have [facility] members coming to complete a placement assessment. 07/11/2018; patient is being assess for SNF placement through [facility]. 07/04/2018; dc systems requirements planner working on placement with [facility]. 06/29/2018; counselor will work with DC systems requirements planner with obtaining appropriate Skill nursing. 06/20/2018 ; DC systems requirements planner continue to [facility] SN[facility]. 2017; counselor continues to work with [facility] with placement. 06/08/2018 continuing to work on proper placement for sucessful discharge when patient is stabilized. 06/06/2018; patient's dc planning will be with an appropriate retirement or VALE, when accepted. [facility] Group Spec/RT/OT/DYER Present: MANISHA Mobley, Lionel Benson OT Group Spec/RT/OT/DYER Input: 07/18/2018;per OT patient is unable to tolerate groups, and is very unpredictable. 07/13/2018; per OT patient is too inappropriate for groups. 07/04/2018; Per OT/RT patient is not group appropriate. 06/29/2018; Per OT patient is not appropriate to participate with activities. 06/20/2018; per OT/RT patient lacks insight with group participation. 06/15/2018 patient lacks motivation with limited insight, unable to attend most groups. 06/06/2018; patient lacks current ability to participate with activities, however he will be encouarged to do so when able. Occupational Therapist Input: Patient is not able to participate in activities - Documentation Teaching Recipient: Patient
[2018-07-19] MEDS: Divalproex 500 MG DR Tablet PO SCH ×2 (13:02→21:03)
[2018-07-19] MEDS: QUEtiapine 25 MG Tablet PO SCH ×2 (13:05)
--- NOTE | 2018-07-19 13:24 | ECG ---
Date Performed: 07/19/2018 Time Performed: 10:33:46 PTAGE: 63 years EKG: Sinus rhythm NORMAL ECG No significant change from prior electrocardiogram. PREVIOUS TRACING : 05/19/2018 21.42 DOCTOR: Kuamr Graff Interpretating Date/Time 07/19/2018 13:23:12
[2018-07-19] MEDS: Lidocaine 5% Patch T-DERMAL SCH (21:04)
[2018-07-20] MEDS: Baclofen 10 MG Tablet PO SCH ×3 (00:27→16:10)
[2018-07-20] MEDS: Enoxaparin Inj 40 MG/0.4 ML Syringe SQ SCH (08:27)
[2018-07-20] MEDS: Lactobacillus Acidophilus/L. Spores Tablet PO SCH (08:27)
[2018-07-20] MEDS: QUEtiapine 25 MG Tablet PO SCH ×2 (08:28→13:04)
[2018-07-20] MEDS: Levothyroxine 50 MCG Tablet PO SCH (08:28)
[2018-07-20] MEDS: Calcium Carbonate 500 MG Tablet PO SCH ×3 (08:28→22:40)
[2018-07-20] MEDS: Divalproex 500 MG DR Tablet PO SCH ×3 (08:28→22:40)
[2018-07-20] MEDS: Sertraline 100 MG Tablet PO SCH (08:28)
[2018-07-20] MEDS: Gabapentin 100 MG Capsule PO SCH ×3 (08:28→17:42)
[2018-07-20] MEDS: levETIRAcetam 250 MG Tablet PO SCH ×3 (08:28→22:40)
--- NOTE | 2018-07-20 13:05 | P.PNPSY ---
Subjective Chief Complaint: "I feel like shit" Remarks: Patient seen for follow-up, chart reviewed. Discussion with nursing staff reported that patient went home behavioral disturbances, no evidence of agitation or irritability has been calm and compliant and pleasant with staff. Patient was found lying in hospital to be calm and cooperative. Patient states that he is sleeping well, having some soreness from chronic pain but states it is "not too bad". Patient denies any physical complaints reports eating and drinking well and sleeping well. Patient denies any perceptual service or delusions. Patient continued baseline confusion. Review of Systems All other systems reviewed negative except as stated in HPI Mental Status Examination Appearance: Appropriate Consciousness: Alert Orientation: Person Motor Activity: Other (No motor abnormalities noted) Speech: Unremarkable Language: Adequate Fund of Knowledge: Adequate Attention and Concentration: Adequate Memory: Impaired (mild) Mood: Appropriate Affect: Appropriate Thought Process & Associations: Other ([place]) Thought Content: Appropriate Hallucination Type: None Delusion Type: Bizarre Suicidal Ideation: No Suicidal Plan: No Suicidal Intention: No Homicidal Ideation: No Homicidal Plan: No Homicidal Intention: No Insight: Poor Judgment: Poor Assessment and Plan - Assessment (1) Bipolar disorder current episode depressed Code(s): F31.30 - Bipolar disorder, current episode depressed, mild or moderate severity, unspecified Status: Acute (2) PTSD (post-traumatic stress disorder) Code(s): F43.10 - Post-traumatic stress disorder, unspecified Status: Acute - Plan Plan: Patient at this time continues with compliance with medications, no episodes of agitation or irritability, appetite, cooperative with staff and easily redirectable. Patient continued baseline confusion. We will continue to monitor mood and behavior. Continue current treatment. Discharge planning in progress. Justification for Continued Inpatient Stay: At risk of further decompensation at lower level care.
--- NOTE | 2018-07-20 14:58 | P.TTN ---
- Patient Problems Problems: 1. Discharge planning 2. Medication compliance 3. Knowledge deficit 4. Lack of coping skills - Progress Toward Goals Provider Present: Dr. Greta Sam (Patient is disoriented, disorganized, and needs to remain for further stabilization.) Provider Input: 07/18/2018: patient mood is extremely unpredictable no imediate med change at this time. 07/13/2018; per doctor no medication changes at this time. 07/11/2018; per doctor no medication adjustment at this time. 07/04/2018 ; per doctor no required medication changes, patient has highs and lows with unpredictable behabivor, pending placement. 06/29/2018; patient is stabilized on medical meds no current med change required. 06/20/2018; per doctor patient is up and down with mood/behavior, no medication adjustment at this time. 06/15; per doctor patient's is at base line with medication no med changes at this time. 06/08/2018 Patient's pharrmacotherapy is being monitored since being adjusted. patient placement is pending. 06/06/2018; patient's medication are being adjusted, patient was recently transferred to medical and sent back to [facility] to continue care. Nurse(s) Present: RN Nurse Input: 07/18/2018: nursing staff reports that patient receive ETO 2017 afternoon. RN states for the most part patient is redirectable, still disorganized. 07/13/18; per RN patient is confused and very disorganized, require redirection due to unpredictable and intrusive behavior. 07/11/2018; per RN patient's has no behavior, however he is very unpredictable. 07/04/2018 ; per RN patient's behavior is very unpredicable requires redirection and prompting with care, meals, medication and behavior. 06/29/2018; per RN patient s behavior is unpredictable, he is eating meals and taking medication, require assistance with his self-care. 06/20/2018; per RN patient requires prompting with mood/behavior, difficulty following direction due to hearing. 06/15/2018; per RN patient requires coaching and encouragement with treatment, extremely confused and disorganized. 06/08/2018 patient is no taking medication, eating and being more cooperative. He still continues to be delusional. 06/06/2018; patient is taking his medication and eating meals require coaching and prompting with care. Psychiatric Counselors Present: Krish Wang Jr., TEGANRI ([facility] is coming on Sunday, July 22, 2018 to assess the patient for placement.), Juanita Erazo [facility] (patient is a placement issues will continue to look for safe discharge options) Psychiatric Therapist Input: 07/18/2018: per Blanquita Meza, counselor bottling supervisor, [facility] staff will be coming to assess patient 07/22/2018 for appropriate placement. 07/13/2018; patient dc plan is with a [facility] or half-way setting; he continues to have [facility] members coming to complete a placement assessment. 07/11/2018; patient is being assess for [facility]F-WAY placement through [facility]. 07/04/2018; dc brand planner working on placement with [facility]. 06/29/2018; counselor will work with DC brand planner with obtaining appropriate Skill nursing. 06/20/2018 ; DC brand planner continue to explore VALE options with the [facility]. 2017; counselor continues to work with [facility] with placement. 06/08/2018 continuing to work on proper placement for sucessful discharge when patient is stabilized. 06/06/2018; patient's dc planning will be with an appropriate fpc or HALF-WAY, when accepted. [facility]. Group Spec/RT/OT/DYER Present: MANISHA Mobley, Lionel Benson, OT, MANISHA Kirkpatrick (Patient does not attend groups at this time.) Group Spec/RT/OT/DYER Input: 07/18/2018;per OT patient is unable to tolerate groups, and is very unpredictable. 07/13/2018; per OT patient is too inappropriate for groups. 07/04/2018; Per OT/RT patient is not group appropriate. 06/29/2018; Per OT patient is not appropriate to participate with activities. 06/20/2018; per OT/RT patient lacks insight with group participation. 06/15/2018 patient lacks motivation with limited insight, unable to attend most groups. 06/06/2018; patient lacks current ability to participate with activities, however he will be encouarged to do so when able. Occupational Therapist Input: Patient is not able to participate in activities - Documentation Teaching Recipient: Patient
[2018-07-20] MEDS: Lidocaine 5% Patch T-DERMAL SCH (22:34)
[2018-07-21] MEDS: Baclofen 10 MG Tablet PO SCH ×3 (00:29→17:01)
[2018-07-21] MEDS: Levothyroxine 50 MCG Tablet PO SCH (06:15)
[2018-07-21] MEDS: Sertraline 100 MG Tablet PO SCH (08:26)
[2018-07-21] MEDS: Enoxaparin Inj 40 MG/0.4 ML Syringe SQ SCH (08:27)
[2018-07-21] MEDS: Divalproex 500 MG DR Tablet PO SCH ×2 (08:27→21:34)
[2018-07-21] MEDS: QUEtiapine 25 MG Tablet PO SCH ×2 (08:27→12:32)
[2018-07-21] MEDS: Gabapentin 100 MG Capsule PO SCH ×3 (08:27→17:01)
[2018-07-21] MEDS: levETIRAcetam 250 MG Tablet PO SCH ×2 (08:27→21:34)
[2018-07-21] MEDS: Calcium Carbonate 500 MG Tablet PO SCH ×2 (08:27→21:34)
[2018-07-21] MEDS: Lactobacillus Acidophilus/L. Spores Tablet PO SCH (08:28)
--- NOTE | 2018-07-21 12:37 | P.PNPSY ---
Subjective Chief Complaint: "I feel like shit" Remarks: Patient seen for follow-up, chart reviewed. Discussion with nursing staff reported that patient wandering this morning but redirectable, no issues last night, slept well. Patient was found sitting in hospital bed eating breakfast noted to be calm and cooperative. Patient continued baseline confusion focused on receiving his ID and wanting to access his money from the bank. Patient is redirectable, eating and drinking well denies any physical complaints at this time. Review of Systems All other systems reviewed negative except as stated in HPI Mental Status Examination Appearance: Appropriate Consciousness: Alert Orientation: Person Motor Activity: Other (No motor abnormalities noted) Speech: Unremarkable Language: Adequate Fund of Knowledge: Adequate Attention and Concentration: Adequate Memory: Impaired (mild) Mood: Appropriate Affect: Appropriate Thought Process & Associations: Other ([place]) Thought Content: Appropriate Hallucination Type: None Delusion Type: Bizarre Suicidal Ideation: No Suicidal Plan: No Suicidal Intention: No Homicidal Ideation: No Homicidal Plan: No Homicidal Intention: No Insight: Poor Judgment: Poor Assessment and Plan - Assessment (1) Bipolar disorder current episode depressed Code(s): F31.30 - Bipolar disorder, current episode depressed, mild or moderate severity, unspecified Status: Acute (2) PTSD (post-traumatic stress disorder) Code(s): F43.10 - Post-traumatic stress disorder, unspecified Status: Acute - Plan Plan: Patient continued baseline confusion, redirectable, no evidence of agitation or irritability. Patient compliant with treatment. We will continue current treatment. Continue to monitor mood and behavior. Discharge planning in progress. Justification for Continued Inpatient Stay: At risk of further decompensation at lower level care.
[2018-07-21] MEDS: Lidocaine 5% Patch T-DERMAL SCH (21:34)
[2018-07-22] MEDS: Baclofen 10 MG Tablet PO SCH ×3 (00:30→15:46)
[2018-07-22] MEDS: Levothyroxine 50 MCG Tablet PO SCH (07:08)
[2018-07-22 07:46] LABS: Baso % (Auto) 0.4 % (0.0-2.0); Eos # (Auto) 0.2 th/mm3 (0.0-0.4); Eos % (Auto) 5.6 % (0.0-4.0); Hematocrit 34.7 % (39.0-51.0); Hemoglobin 11.8 gm/dL (13.0-17.0); Lymph # (Auto) 1.6 th/mm3 (1.0-4.8); Lymph % (Auto) 46.9 % (9.0-44.0); Mean Corpuscular HGB Conc 33.9 % (32.0-36.0); Mean Corpuscular Hemoglobin 29.9 pg (27.0-34.0); Mean Corpuscular Volume 88.1 fL (80.0-100.0); Mean Platelet Volume 8.3 fL (7.0-11.0); Mono # (Auto) 0.4 th/mm3 (0.0-0.9); Mono % (Auto) 11.8 % (0.0-8.0); Neut # (Auto) 1.2 th/mm3 (1.8-7.7); Neut % (Auto) 35.3 % (16.0-70.0); Platelet Count 84 th/mm3 (150-450); Red Blood Count 3.94 mil/mm3 (4.50-5.90); Red Cell Distribution Width 14.6 % (11.6-17.2); White Blood Count 3.4 th/mm3 (4.0-11.0)
[2018-07-22 08:08] LABS: Alanine Aminotransferase 25 U/L (12-78); Albumin 3.2 g/dL (3.4-5.0); Anion Gap 6 meq/L (5-15); Blood Urea Nitrogen 27 mg/dL (7-18); Calcium 8.8 mg/dL (8.5-10.1); Carbon Dioxide 28.4 meq/L (21.0-32.0); Chloride 105 meq/L (98-107); Glucose,Random 87 mg/dL (74-106); Potassium 4.1 meq/L (3.5-5.1); Sodium 139 meq/L (136-145)
[2018-07-22 08:10] LABS: Alkaline Phosphatase 54 U/L (45-117); Aspartate Aminotransferase 34 U/L (15-37); Glomerular Filtration Rate 74 mL/min (>89); Total Protein 8.4 g/dL (6.4-8.2); Valproic Acid 74 mcg/mL (50-100)
[2018-07-22 08:33] LABS: Vitamin B12 643 pg/mL (193-986)
[2018-07-22 08:41] LABS: Platelet Morphology Normal (Normal)
--- NOTE | 2018-07-22 08:49 | P.PNPSY ---
Subjective Chief Complaint: "I feel like shit" Remarks: Patient seen for follow-up, chart reviewed. Discussion with nursing staff reported that patient no behavior disturbances has been calm and compliant with treatment and cooperative with staff. Patient was found lying in hospital bed noted to be asleep was able to wake up superficially for interview stating that he is a couple of minutes to wake up but denying any physical complaints at this time stating that he is feeling "all right". He reports having slept well last evening. Patient continues baseline confusion with very concrete responses. No episodes of agitation or irritability. Review of Systems All other systems reviewed negative except as stated in HPI Mental Status Examination Appearance: Appropriate Consciousness: Alert Orientation: Person Motor Activity: Other (No motor abnormalities noted) Speech: Unremarkable Language: Adequate Fund of Knowledge: Adequate Attention and Concentration: Adequate Memory: Impaired (mild) Mood: Appropriate Affect: Appropriate Thought Process & Associations: Other ([place]) Thought Content: Appropriate Hallucination Type: None Delusion Type: Bizarre Suicidal Ideation: No Suicidal Plan: No Suicidal Intention: No Homicidal Ideation: No Homicidal Plan: No Homicidal Intention: No Insight: Poor Judgment: Poor Assessment and Plan - Assessment (1) Bipolar disorder current episode depressed Code(s): F31.30 - Bipolar disorder, current episode depressed, mild or moderate severity, unspecified Status: Acute (2) PTSD (post-traumatic stress disorder) Code(s): F43.10 - Post-traumatic stress disorder, unspecified Status: Acute - Plan Plan: Patient this time continued baseline confusion but no evidence of agitation or irritability, no behavioral disturbances. Patient to calm and cooperative with staff. Compliant with medications. We will continue current treatment. We will continue to monitor with behavior. Patient Depakote level is within therapeutic limits. Labs reviewed. Discharge planning in progress. Justification for Continued Inpatient Stay: At risk of further decompensation at lower level care.
[2018-07-22] MEDS ORDERED: Haloperidol Inj 5 MG/ML Ampul ONE (11:09)
[2018-07-22] MEDS: Enoxaparin Inj 40 MG/0.4 ML Syringe SQ SCH (11:33)
[2018-07-22] MEDS: QUEtiapine 25 MG Tablet PO SCH ×2 (11:33→13:36)
[2018-07-22] MEDS: Gabapentin 100 MG Capsule PO SCH ×3 (11:33→17:17)
[2018-07-22] MEDS ORDERED: Haloperidol Inj 5 MG/ML Ampul IM ONE (11:45)
[2018-07-22] MEDS: levETIRAcetam 250 MG Tablet PO SCH ×2 (13:36→20:56)
[2018-07-22] MEDS: Divalproex 500 MG DR Tablet PO SCH ×2 (13:36→20:56)
[2018-07-22] MEDS: Calcium Carbonate 500 MG Tablet PO SCH ×2 (13:36→20:55)
[2018-07-22] MEDS: Sertraline 100 MG Tablet PO SCH (13:36)
[2018-07-22] MEDS: Lidocaine 5% Patch T-DERMAL SCH (20:56)
[2018-07-23] MEDS: Baclofen 10 MG Tablet PO SCH ×3 (00:08→16:24)
[2018-07-23] MEDS: Levothyroxine 50 MCG Tablet PO SCH (06:25)
[2018-07-23] MEDS: Calcium Carbonate 500 MG Tablet PO SCH ×2 (08:50→20:40)
[2018-07-23] MEDS: Divalproex 500 MG DR Tablet PO SCH ×2 (08:50→20:40)
[2018-07-23] MEDS: Enoxaparin Inj 40 MG/0.4 ML Syringe SQ SCH (08:51)
[2018-07-23] MEDS: Lactobacillus Acidophilus/L. Spores Tablet PO SCH (08:51)
[2018-07-23] MEDS: levETIRAcetam 250 MG Tablet PO SCH ×2 (08:51→20:41)
[2018-07-23] MEDS: Gabapentin 100 MG Capsule PO SCH ×3 (08:51→17:16)
[2018-07-23] MEDS: Sertraline 100 MG Tablet PO SCH (08:51)
--- NOTE | 2018-07-23 08:53 | P.PNPSY ---
Subjective Chief Complaint: "I feel like shit" Remarks: Patient seen this morning with nurse Gina, chart reviewed, patient compliant medication. Patient sleeping at the present time though he was up and did have a small amount to eat. Staff states that he was calmer this morning did not have the arousal that was noted yesterday. It appears she was interviewed by the [facility] account maintenance representative yesterday they stated they would get back to us on Thursday 07/26 Review of Systems All other systems reviewed negative except as stated in HPI Mental Status Examination Appearance: Appropriate Consciousness: Alert Orientation: Person Motor Activity: Other (No motor abnormalities noted) Speech: Unremarkable Language: Adequate Fund of Knowledge: Adequate Attention and Concentration: Adequate Memory: Impaired (mild) Mood: Appropriate Affect: Appropriate Thought Process & Associations: Other ([place]) Thought Content: Appropriate Hallucination Type: None Delusion Type: Bizarre Suicidal Ideation: No Suicidal Plan: No Suicidal Intention: No Homicidal Ideation: No Homicidal Plan: No Homicidal Intention: No Insight: Poor Judgment: Poor Assessment and Plan - Assessment (1) Bipolar disorder current episode depressed Code(s): F31.30 - Bipolar disorder, current episode depressed, mild or moderate severity, unspecified Status: Acute (2) PTSD (post-traumatic stress disorder) Code(s): F43.10 - Post-traumatic stress disorder, unspecified Status: Acute - Plan Plan: Patient remains labile with episodes of dyscontrol. He has been compliant with his medication. For now continue treatment Justification for Continued Inpatient Stay: At this time patient would decompensate if not placed in an appropriate level of care Discharge Planning: To be determined and now awaiting word [facility] from the [facility]
[2018-07-23] MEDS: QUEtiapine 25 MG Tablet PO SCH ×2 (09:49→13:47)
[2018-07-23] MEDS ORDERED: Haloperidol Inj 5 MG/ML Ampul IM STA (15:58)
[2018-07-23] MEDS ORDERED: Haloperidol Inj 5 MG/ML Ampul ONE (15:59)
[2018-07-23] MEDS: Lidocaine 5% Patch T-DERMAL SCH (20:41)
[2018-07-24] MEDS ORDERED: Haloperidol Inj 5 MG/ML Ampul IM ONE (00:15)
[2018-07-24] MEDS: Baclofen 10 MG Tablet PO SCH ×3 (00:27→17:10)
[2018-07-24] MEDS: Levothyroxine 50 MCG Tablet PO SCH (08:00)
[2018-07-24] MEDS: Calcium Carbonate 500 MG Tablet PO SCH ×2 (09:08→21:06)
[2018-07-24] MEDS: Gabapentin 100 MG Capsule PO SCH ×3 (09:08→17:28)
[2018-07-24] MEDS: levETIRAcetam 250 MG Tablet PO SCH (09:08)
[2018-07-24] MEDS: Enoxaparin Inj 40 MG/0.4 ML Syringe SQ SCH (09:08)
[2018-07-24] MEDS: Divalproex 500 MG DR Tablet PO SCH ×2 (09:09→21:05)
[2018-07-24] MEDS: Lactobacillus Acidophilus/L. Spores Tablet PO SCH (09:09)
[2018-07-24] MEDS: Sertraline 100 MG Tablet PO SCH (09:09)
[2018-07-24] MEDS: QUEtiapine 25 MG Tablet PO SCH ×2 (09:10→13:33)
--- NOTE | 2018-07-24 15:30 | P.PNPSY ---
Subjective Remarks: Pt seen and discussed with staff. He has been compliant with medications. He required an ETO yesterday due to agitation/aggression. Today he has been sleeping off and on most of the day. He remains with baseline confusion but RN reports that he has been much more cooperative with care today and has not been agitated. Mental Status Examination Appearance: Appropriate Consciousness: Alert Orientation: Person Motor Activity: Abnormal gait (uses walker) Speech: Unremarkable Language: Adequate Fund of Knowledge: Adequate Attention and Concentration: Adequate Memory: Impaired (mild) Mood: Appropriate Affect: Appropriate Thought Process & Associations: Other ([place]) Thought Content: Delusional Hallucination Type: None Delusion Type: Bizarre Suicidal Ideation: No Suicidal Plan: No Suicidal Intention: No Homicidal Ideation: No Homicidal Plan: No Homicidal Intention: No Insight: Poor Judgment: Poor Assessment and Plan - Assessment (1) Bipolar disorder current episode depressed Code(s): F31.30 - Bipolar disorder, current episode depressed, mild or moderate severity, unspecified Status: Acute (2) PTSD (post-traumatic stress disorder) Code(s): F43.10 - Post-traumatic stress disorder, unspecified Status: Acute - Plan Plan: Continue current tx plan Justification for Continued Inpatient Stay: risk of decompensation, recent aggression
[2018-07-24] MEDS: levETIRAcetam 500 MG Tablet PO SCH (21:05)
[2018-07-24] MEDS: Lidocaine 5% Patch T-DERMAL SCH (21:06)
[2018-07-25] MEDS: Sertraline 100 MG Tablet PO SCH (09:09)
[2018-07-25] MEDS: Baclofen 10 MG Tablet PO SCH ×2 (09:09→17:19)
[2018-07-25] MEDS: Calcium Carbonate 500 MG Tablet PO SCH ×2 (09:09→21:35)
[2018-07-25] MEDS: Levothyroxine 50 MCG Tablet PO SCH (09:09)
[2018-07-25] MEDS: Gabapentin 100 MG Capsule PO SCH ×3 (09:10→18:37)
[2018-07-25] MEDS: Enoxaparin Inj 40 MG/0.4 ML Syringe SQ SCH (09:10)
[2018-07-25] MEDS: levETIRAcetam 500 MG Tablet PO SCH ×2 (09:10→21:35)
[2018-07-25] MEDS: Divalproex 500 MG DR Tablet PO SCH ×2 (09:10→21:35)
[2018-07-25] MEDS: QUEtiapine 25 MG Tablet PO SCH ×2 (09:11→12:16)
[2018-07-25] MEDS ORDERED: Haloperidol 5 MG Tablet PO ONE (10:07)
--- NOTE | 2018-07-25 10:15 | P.TTN ---
- Patient Problems Problems: 1. Discharge planning 2. Medication compliance 3. Knowledge deficit 4. Lack of coping skills - Progress Toward Goals Provider Present: Dr. Greta Sam (Dr. Sam is continuing to titrate medications , patient remains for further stabilization.) Provider Input: 07/18/2018: patient mood is extremely unpredictable no imediate med change at this time. 07/13/2018; per doctor no medication changes at this time. 07/11/2018; per doctor no medication adjustment at this time. 07/04/2018 ; per doctor no required medication changes, patient has highs and lows with unpredictable behabivor, pending placement. 06/29/2018; patient is stabilized on medical meds no current med change required. 06/20/2018; per doctor patient is up and down with mood/behavior, no medication adjustment at this time. 06/15; per doctor patient's is at base line with medication no med changes at this time. 06/08/2018 Patient's pharrmacotherapy is being monitored since being adjusted. patient placement is pending. 06/06/2018; patient's medication are being adjusted, patient was recently transferred to medical and sent back to [facility] to continue care. Nurse(s) Present: RN Nurse Input: 07/18/2018: nursing staff reports that patient receive ETO 2017 afternoon. RN states for the most part patient is redirectable, still disorganized. 07/13/18; per RN patient is confused and very disorganized, require redirection due to unpredictable and intrusive behavior. 07/11/2018; per RN patient's has no behavior, however he is very unpredictable. 07/04/2018 ; per RN patient's behavior is very unpredicable requires redirection and prompting with care, meals, medication and behavior. 06/29/2018; per RN patient s behavior is unpredictable, he is eating meals and taking medication, require assistance with his self-care. 06/20/2018; per RN patient requires prompting with mood/behavior, difficulty following direction due to hearing. 06/15/2018; per RN patient requires coaching and encouragement with treatment, extremely confused and disorganized. 06/08/2018 patient is no taking medication, eating and being more cooperative. He still continues to be delusional. 06/06/2018; patient is taking his medication and eating meals require coaching and prompting with care. Psychiatric Counselors Present: Krish Wang Jr., [facility] (The [facility] came to assess the patient for potential placement last Wednesday. The [facility] will staff the case and provide us with the results of the assessment either today or tomorrow per Zoey.), Juanita Erazo, [facility] (patient is a placement issues will continue to look for safe discharge options) Psychiatric Therapist Input: 07/18/2018: per Blanquita Meza, counselor reactor fueling supervisor, VA staff will be coming to assess patient 07/22/2018 for appropriate placement. 07/13/2018; patient dc plan is with a [facility] or assisted setting; he continues to have [facility] members coming to complete a placement assessment. 07/11/2018; patient is being assess for [facility]IAL placement through [facility]. 07/04/2018; dc senior program planner working on placement with [facility]. 06/29/2018; counselor will work with DC senior program planner with obtaining appropriate Skill nursing. 06/20/2018 ; DC senior program planner continue to explore RESIDENTIAL options with the [facility]. 2017; counselor continues to work with [facility] with placement. 06/08/2018 continuing to work on proper placement for sucessful discharge when patient is stabilized. 06/06/2018; patient's dc planning will be with an appropriate fdc or [facility], when accepted. [facility] Group Spec/RT/OT/DYER Present: MANISHA Mobley, Lionel Benson OT, MANISHA Kirkpatrick (Patient does not attend groups at this time.) Group Spec/RT/OT/DEYR Input: 07/18/2018;per OT patient is unable to tolerate groups, and is very unpredictable. 07/13/2018; per OT patient is too inappropriate for groups. 07/04/2018; Per OT/RT patient is not group appropriate. 06/29/2018; Per OT patient is not appropriate to participate with activities. 06/20/2018; per OT/RT patient lacks insight with group participation. 06/15/2018 patient lacks motivation with limited insight, unable to attend most groups. 06/06/2018; patient lacks current ability to participate with activities, however he will be encouarged to do so when able. Occupational Therapist Input: Patient is not able to participate in activities - Documentation Teaching Recipient: Patient
--- NOTE | 2018-07-25 13:42 | P.PNPSY ---
Subjective Chief Complaint: "I feel like shit" Remarks: Patient seen for follow-up, chart reviewed. Discussion with nursing staff reported that patient continues on one-to-one observation while awake, has required ETO over the weekend as well as this morning as patient started become more agitated requesting for a cigarette. Patient was found sitting in hospital bed noted to be increasingly agitated during conversation demanding to be given a cigarette because he states he was promised this to various people on the unit. Patient continued with baseline confusion. Patient was offered ETO p.o. of Haldol 5 mg/Ativan 2 mg with good effect. No episodes of aggression today. Review of Systems All other systems reviewed negative except as stated in HPI Mental Status Examination Appearance: Appropriate Consciousness: Alert Orientation: Person Motor Activity: Abnormal gait (uses walker) Speech: Unremarkable Language: Adequate Fund of Knowledge: Adequate Attention and Concentration: Adequate Memory: Impaired (mild) Mood: Irritable Affect: Irritable Thought Process & Associations: Other ([place]) Thought Content: Delusional Hallucination Type: None Delusion Type: Bizarre Suicidal Ideation: No Suicidal Plan: No Suicidal Intention: No Homicidal Ideation: No Homicidal Plan: No Homicidal Intention: No Insight: Poor Judgment: Poor Assessment and Plan - Assessment (1) Bipolar disorder current episode depressed Code(s): F31.30 - Bipolar disorder, current episode depressed, mild or moderate severity, unspecified Status: Acute (2) PTSD (post-traumatic stress disorder) Code(s): F43.10 - Post-traumatic stress disorder, unspecified Status: Acute - Plan Plan: Patient continues with sporadic episodes of irritability but no aggressive behavior today. Patient continues to require redirection at times. He continues with baseline confusion. We will continue current treatment. Continue to monitor with behavior. Discharge planning in progress. Justification for Continued Inpatient Stay: At risk of further decompensation at lower level care.
[2018-07-25] MEDS: Lidocaine 5% Patch T-DERMAL SCH (21:35)
[2018-07-26] MEDS: Divalproex 500 MG DR Tablet PO SCH ×2 (08:28→21:12)
[2018-07-26] MEDS: Baclofen 10 MG Tablet PO SCH ×2 (08:28→16:05)
[2018-07-26] MEDS: Sertraline 100 MG Tablet PO SCH (08:28)
[2018-07-26] MEDS: Levothyroxine 50 MCG Tablet PO SCH (08:29)
[2018-07-26] MEDS: Calcium Carbonate 500 MG Tablet PO SCH ×2 (08:29→21:12)
[2018-07-26] MEDS: Enoxaparin Inj 40 MG/0.4 ML Syringe SQ SCH (08:29)
[2018-07-26] MEDS: QUEtiapine 25 MG Tablet PO SCH ×2 (08:29→13:13)
[2018-07-26] MEDS: Gabapentin 100 MG Capsule PO SCH ×3 (08:29→18:06)
[2018-07-26] MEDS: Lactobacillus Acidophilus/L. Spores Tablet PO SCH (08:29)
[2018-07-26] MEDS: levETIRAcetam 500 MG Tablet PO SCH ×2 (08:29→21:12)
--- NOTE | 2018-07-26 15:55 | P.PNPSY ---
Subjective Chief Complaint: "I feel like shit" Remarks: Patient was interviewed in the presence of a nurse and a one-to-one sitter. Nursing staff feels patient is doing better and does not require continued one- to-one observation. Accordingly the one-to-one observation was discontinued in favor of close. Chart reviewed patient preoccupied with undressing changing his Pampers. Mental Status Examination Appearance: Appropriate Consciousness: Alert Orientation: Person Motor Activity: Abnormal gait (uses walker) Speech: Unremarkable Language: Adequate Fund of Knowledge: Adequate Attention and Concentration: Adequate Memory: Impaired (mild) Mood: Irritable Affect: Irritable Thought Process & Associations: Other ([place]) Thought Content: Delusional Hallucination Type: None Delusion Type: Bizarre Suicidal Ideation: No Suicidal Plan: No Suicidal Intention: No Homicidal Ideation: No Homicidal Plan: No Homicidal Intention: No Insight: Poor Judgment: Poor Assessment and Plan - Plan Plan: Patient continues with sporadic episodes of irritability but no aggressive behavior today. Patient continues to require redirection at times. He continues with baseline confusion. We will continue current treatment. Continue to monitor with behavior. Discharge planning in progress. Justification for Continued Inpatient Stay: Patient continues to require inpatient treatment and evaluation. He is incapable of the time his own ADLs and remains quite confused. Discharge Planning: Discharge planning is in place. - Attending Attestation Patient does require continued inpatient care.
[2018-07-27] MEDS: Baclofen 10 MG Tablet PO SCH ×4 (06:27→16:02)
[2018-07-27] MEDS: Lidocaine 5% Patch T-DERMAL SCH ×2 (06:29→21:46)
[2018-07-27] MEDS: Levothyroxine 50 MCG Tablet PO SCH (08:24)
[2018-07-27] MEDS: Lactobacillus Acidophilus/L. Spores Tablet PO SCH (08:24)
[2018-07-27] MEDS: Calcium Carbonate 500 MG Tablet PO SCH ×2 (08:24→21:48)
[2018-07-27] MEDS: levETIRAcetam 500 MG Tablet PO SCH ×2 (08:24→21:46)
[2018-07-27] MEDS: Gabapentin 100 MG Capsule PO SCH ×3 (08:24→17:54)
[2018-07-27] MEDS: QUEtiapine 25 MG Tablet PO SCH ×3 (08:24→13:08)
[2018-07-27] MEDS: Enoxaparin Inj 40 MG/0.4 ML Syringe SQ SCH (08:25)
[2018-07-27] MEDS: Sertraline 100 MG Tablet PO SCH (08:25)
[2018-07-27] MEDS: Divalproex 500 MG DR Tablet PO SCH ×2 (08:25→21:45)
--- NOTE | 2018-07-27 09:30 | P.TTN ---
- Patient Problems Problems: 1. Discharge planning 2. Medication compliance 3. Knowledge deficit 4. Lack of coping skills - Progress Toward Goals Provider Present: Dr. Greta Sam (Patient no longer needs to remain for stabilization, patient is in need of placement at this time.) Provider Input: 07/18/2018: patient mood is extremely unpredictable no imediate med change at this time. 07/13/2018; per doctor no medication changes at this time. 07/11/2018; per doctor no medication adjustment at this time. 07/04/2018 ; per doctor no required medication changes, patient has highs and lows with unpredictable behabivor, pending placement. 06/29/2018; patient is stabilized on medical meds no current med change required. 06/20/2018; per doctor patient is up and down with mood/behavior, no medication adjustment at this time. 06/15; per doctor patient's is at base line with medication no med changes at this time. 06/08/2018 Patient's pharrmacotherapy is being monitored since being adjusted. patient placement is pending. 06/06/2018; patient's medication are being adjusted, patient was recently transferred to medical and sent back to [facility] to continue care. Nurse(s) Present: RN Nurse Input: 07/18/2018: nursing staff reports that patient receive ETO 2017 afternoon. RN states for the most part patient is redirectable, still disorganized. 07/13/18; per RN patient is confused and very disorganized, require redirection due to unpredictable and intrusive behavior. 07/11/2018; per RN patient's has no behavior, however he is very unpredictable. 07/04/2018 ; per RN patient's behavior is very unpredicable requires redirection and prompting with care, meals, medication and behavior. 06/29/2018; per RN patient s behavior is unpredictable, he is eating meals and taking medication, require assistance with his self-care. 06/20/2018; per RN patient requires prompting with mood/behavior, difficulty following direction due to hearing. 06/15/2018; per RN patient requires coaching and encouragement with treatment, extremely confused and disorganized. 06/08/2018 patient is no taking medication, eating and being more cooperative. He still continues to be delusional. 06/06/2018; patient is taking his medication and eating meals require coaching and prompting with care. Psychiatric Counselors Present: Krish Wang Jr., [facility] ([facility] issue pending [facility] Juanita Erazo [facility] (patient is a placement issues will continue to look for safe discharge options) Psychiatric Therapist Input: 07/18/2018: per Blanquita Meza, counselor supervisor instrument maintenance, [facility] staff will be coming to assess patient 07/22/2018 for appropriate placement. 07/13/2018; patient dc plan is with a [place] [facility] or nursing home setting; he continues to have [facility] members coming to complete a placement assessment. 07/11/2018; patient is being assess for [facility] placement through [place]. 07/04/2018; dc product planner working on placement with [place]. 06/29/2018; counselor will work with DC product planner with obtaining appropriate Skill nursing. 06/20/2018 ; DC product planner continue to explore CORRECTION options with the [facility]. 2017; counselor continues to work with [place] with placement. 06/08/2018 continuing to work on proper placement for sucessful discharge when patient is stabilized. 06/06/2018; patient's dc planning will be with an appropriate senior living or CORRECTION, when accepted. [facility]. Group Spec/RT/OT/DYER Present: CASPER Pedraza (Patient does not attend groups at this time.), MANISHA Mobley, Lionel Benson, OT, MANISHA Kirkpatrick (Patient does not attend groups at this time.) Group Spec/RT/OT/DYER Input: 07/18/2018;per OT patient is unable to tolerate groups, and is very unpredictable. 07/13/2018; per OT patient is too inappropriate for groups. 07/04/2018; Per OT/RT patient is not group appropriate. 06/29/2018; Per OT patient is not appropriate to participate with activities. 06/20/2018; per OT/RT patient lacks insight with group participation. 06/15/2018 patient lacks motivation with limited insight, unable to attend most groups. 06/06/2018; patient lacks current ability to participate with activities, however he will be encouarged to do so when able. Occupational Therapist Input: Patient is not able to participate in activities - Documentation Teaching Recipient: Patient
--- NOTE | 2018-07-27 11:34 | P.PNPSY ---
Subjective Chief Complaint: "I feel like shit" Remarks: Patient seen for follow-up, chart reviewed. Discussion with nursing staff reported that patient with no behavioral disturbances overnight. Patient found lying on hospital bed, noted to be calm and cooperative, noted with baseline confusion stating that his [id number] is in the next room and that he would go and visit stating that he was feeling upset that the nurses were not allowing him to go into the room. He denies any physical complaints, later found wandering into another patient's room and needing redirection without any difficulty. Review of Systems All other systems reviewed negative except as stated in HPI Mental Status Examination Appearance: Appropriate Consciousness: Alert Orientation: Person Motor Activity: Abnormal gait (uses walker) Speech: Unremarkable Language: Adequate Fund of Knowledge: Adequate Attention and Concentration: Adequate Memory: Impaired (mild) Mood: Good, Other ("alright") Affect: Blunt Thought Process & Associations: Other ([place]) Thought Content: Delusional Hallucination Type: None Delusion Type: Bizarre Suicidal Ideation: No Suicidal Plan: No Suicidal Intention: No Homicidal Ideation: No Homicidal Plan: No Homicidal Intention: No Insight: Poor Judgment: Poor Assessment and Plan - Assessment (1) Bipolar disorder current episode depressed Code(s): F31.30 - Bipolar disorder, current episode depressed, mild or moderate severity, unspecified Status: Acute (2) PTSD (post-traumatic stress disorder) Code(s): F43.10 - Post-traumatic stress disorder, unspecified Status: Acute - Plan Plan: Patient continues with baseline confusion, easily redirectable, no episodes of agitation or irritability. Continue current treatment, continue to monitor mood and behavior. Discharge planning in progress. Justification for Continued Inpatient Stay: At risk for further decompensation at lower level of care.
[2018-07-28] MEDS: Baclofen 10 MG Tablet PO SCH ×3 (05:47→17:33)
[2018-07-28] MEDS: Levothyroxine 50 MCG Tablet PO SCH (08:10)
[2018-07-28] MEDS: levETIRAcetam 500 MG Tablet PO SCH ×2 (09:09→21:21)
[2018-07-28] MEDS: Gabapentin 100 MG Capsule PO SCH ×3 (09:10→17:43)
[2018-07-28] MEDS: Calcium Carbonate 500 MG Tablet PO SCH ×2 (09:10→21:22)
[2018-07-28] MEDS: Divalproex 500 MG DR Tablet PO SCH ×2 (09:10→21:21)
[2018-07-28] MEDS: Sertraline 100 MG Tablet PO SCH (09:10)
[2018-07-28] MEDS: Lactobacillus Acidophilus/L. Spores Tablet PO SCH (09:11)
[2018-07-28] MEDS: Enoxaparin Inj 40 MG/0.4 ML Syringe SQ SCH (09:11)
[2018-07-28] MEDS: QUEtiapine 25 MG Tablet PO SCH ×2 (09:11→12:57)
--- NOTE | 2018-07-28 10:13 | P.PNPSY ---
Subjective Chief Complaint: "I feel like shit" Remarks: Patient seen for follow-up, chart reviewed. Discussion with nursing staff reported that patient took medications morning, no episodes of agitation or irritability, continues with baseline confusion. Patient was found lying in hospital bed noted to be somewhat irritable during interview today. Patient stated that he had not been receiving his medications although patient was reminded that patient had received his medications this morning. Patient states that he just wants to stating that he will "off myself the first chance I get". Brief supportive psychotherapy was provided. Patient continues to have baseline confusion but at this time noted to be endorsing suicidality. Review of Systems All other systems reviewed negative except as stated in HPI Mental Status Examination Appearance: Appropriate Consciousness: Alert Orientation: Person Motor Activity: Abnormal gait (uses walker) Speech: Unremarkable Language: Adequate Fund of Knowledge: Adequate Attention and Concentration: Adequate Memory: Impaired (mild) Mood: Irritable Affect: Blunt Thought Process & Associations: Other ([place]) Thought Content: Delusional Hallucination Type: None Delusion Type: Bizarre Suicidal Ideation: No Suicidal Plan: No Suicidal Intention: No Homicidal Ideation: No Homicidal Plan: No Homicidal Intention: No Insight: Poor Judgment: Poor Assessment and Plan - Assessment (1) Bipolar disorder current episode depressed Code(s): F31.30 - Bipolar disorder, current episode depressed, mild or moderate severity, unspecified Status: Acute (2) PTSD (post-traumatic stress disorder) Code(s): F43.10 - Post-traumatic stress disorder, unspecified Status: Acute - Plan Plan: Patient this time continues to be slight confusion but also endorsing suicidal ideations. We will continue current treatment. We have patient on one-to-one observation for safety. We will continue to monitor mood and behavior. Discharge planning in progress. Justification for Continued Inpatient Stay: At risk of further decompensation at lower level care.
[2018-07-28] MEDS: Lidocaine 5% Patch T-DERMAL SCH (21:21)
[2018-07-29] MEDS: Baclofen 10 MG Tablet PO SCH ×3 (03:43→16:15)
[2018-07-29] MEDS: Gabapentin 100 MG Capsule PO SCH ×3 (08:23→18:17)
[2018-07-29] MEDS: Sertraline 100 MG Tablet PO SCH (08:23)
[2018-07-29] MEDS: Enoxaparin Inj 40 MG/0.4 ML Syringe SQ SCH (08:23)
[2018-07-29] MEDS: Divalproex 500 MG DR Tablet PO SCH ×2 (08:23→20:26)
[2018-07-29] MEDS: Calcium Carbonate 500 MG Tablet PO SCH ×2 (08:23→20:26)
[2018-07-29] MEDS: levETIRAcetam 500 MG Tablet PO SCH ×2 (08:23→20:26)
[2018-07-29] MEDS: Levothyroxine 50 MCG Tablet PO SCH (08:24)
[2018-07-29] MEDS: QUEtiapine 25 MG Tablet PO SCH ×2 (08:26→13:11)
--- NOTE | 2018-07-29 11:29 | P.PNPSY ---
Subjective Chief Complaint: "I feel like shit" Remarks: Patient was seen with the nursing staff. Reviewed record. Discussed with nursing staff suggest transfer to the 2500 units since the patient is wandering into rooms, apparently looking for cigarettes or for brother. At present the one-to-one has been resumed because of his wandering patient remained in bed throughout my interview and refused to respond to questions. He continues incontinent. He is taking his medications and his appetite is good. Mental Status Examination Appearance: Appropriate, Disheveled Consciousness: Alert Orientation: Person Motor Activity: Abnormal gait (uses walker) Speech: Unremarkable Language: Adequate, Other (Electively mute today) Fund of Knowledge: Adequate Attention and Concentration: Adequate Memory: Impaired (mild) Mood: Irritable Affect: Blunt Thought Process & Associations: Other ([place]) Thought Content: Delusional Hallucination Type: None Delusion Type: Bizarre Suicidal Ideation: No Suicidal Plan: No Suicidal Intention: No Homicidal Ideation: No Homicidal Plan: No Homicidal Intention: No Insight: Poor Judgment: Poor Assessment and Plan - Assessment (1) Bipolar disorder current episode depressed Code(s): F31.30 - Bipolar disorder, current episode depressed, mild or moderate severity, unspecified Status: Acute (2) PTSD (post-traumatic stress disorder) Code(s): F43.10 - Post-traumatic stress disorder, unspecified Status: Acute - Plan Plan: Patient this time continues to be slight confusion but also endorsing suicidal ideations. We will continue current treatment. We have patient on one-to-one observation for safety. We will continue to monitor mood and behavior. Discharge planning in progress. July 29, 2018 Patient continues to be a problem on the unit because of his wandering and requires one-to-one which most that sometimes be discontinued in order to make the patient eligible for transfer to hospital. That is not possible at this time the patient might do better if transferred to the 2500 unit. I am reluctant to do this at this time because of the [id number] nature of this patient's experience and his confusion about his around. Justification for Continued Inpatient Stay: Placement at [place] in process.
[2018-07-29] MEDS: Lidocaine 5% Patch T-DERMAL SCH (20:25)
[2018-07-30] MEDS: Baclofen 10 MG Tablet PO SCH ×3 (01:15→16:40)
[2018-07-30] MEDS: Levothyroxine 50 MCG Tablet PO SCH ×2 (07:05→07:10)
[2018-07-30] MEDS: Lactobacillus Acidophilus/L. Spores Tablet PO SCH (08:14)
[2018-07-30] MEDS: levETIRAcetam 500 MG Tablet PO SCH ×2 (08:14→20:42)
[2018-07-30] MEDS: Divalproex 500 MG DR Tablet PO SCH ×2 (08:14→20:42)
[2018-07-30] MEDS: Sertraline 100 MG Tablet PO SCH (08:15)
[2018-07-30] MEDS: Gabapentin 100 MG Capsule PO SCH ×3 (08:15→17:07)
[2018-07-30] MEDS: Calcium Carbonate 500 MG Tablet PO SCH ×2 (08:15→20:44)
[2018-07-30] MEDS: Enoxaparin Inj 40 MG/0.4 ML Syringe SQ SCH (08:15)
[2018-07-30] MEDS: QUEtiapine 25 MG Tablet PO SCH ×2 (08:15→12:13)
--- NOTE | 2018-07-30 12:47 | P.PNPSY ---
Subjective Chief Complaint: "I feel like shit" Remarks: Patient was seen and case discussed with nursing. Patient has been on good behavior today and has not needed any injections. Patient also was behaving well yesterday. Remains internally stimulated and disorganized Review of Systems All other systems reviewed negative except as stated in HPI Mental Status Examination Appearance: Appropriate, Disheveled Consciousness: Alert Orientation: Person Motor Activity: Abnormal gait (uses walker) Speech: Unremarkable Language: Adequate, Other (Electively mute today) Fund of Knowledge: Adequate Attention and Concentration: Adequate Memory: Impaired (mild) Mood: Irritable Affect: Blunt Thought Process & Associations: Other ([place]) Thought Content: Preoccupations, Delusional Hallucination Type: None Delusion Type: Bizarre Suicidal Ideation: No Suicidal Plan: No Suicidal Intention: No Homicidal Ideation: No Homicidal Plan: No Homicidal Intention: No Insight: Poor Judgment: Poor Assessment and Plan - Assessment (1) Bipolar disorder current episode depressed Code(s): F31.30 - Bipolar disorder, current episode depressed, mild or moderate severity, unspecified Status: Acute (2) PTSD (post-traumatic stress disorder) Code(s): F43.10 - Post-traumatic stress disorder, unspecified Status: Acute - Plan Plan: Continue current treatment plan Justification for Continued Inpatient Stay: Patient would decompensate in a less restrictive setting
[2018-07-30] MEDS: Lidocaine 5% Patch T-DERMAL SCH (20:43)
[2018-07-31] MEDS: Baclofen 10 MG Tablet PO SCH ×3 (01:08→16:52)
[2018-07-31] MEDS: Levothyroxine 50 MCG Tablet PO SCH (06:36)
[2018-07-31] MEDS: Divalproex 500 MG DR Tablet PO SCH ×2 (08:15→21:09)
[2018-07-31] MEDS: Enoxaparin Inj 40 MG/0.4 ML Syringe SQ SCH (08:16)
[2018-07-31] MEDS: Lactobacillus Acidophilus/L. Spores Tablet PO SCH (08:16)
[2018-07-31] MEDS: Gabapentin 100 MG Capsule PO SCH ×3 (08:16→18:31)
[2018-07-31] MEDS: levETIRAcetam 500 MG Tablet PO SCH ×2 (08:16→21:09)
[2018-07-31] MEDS: QUEtiapine 25 MG Tablet PO SCH ×2 (08:16→13:55)
[2018-07-31] MEDS: Calcium Carbonate 500 MG Tablet PO SCH ×2 (08:16→21:10)
[2018-07-31] MEDS: Sertraline 100 MG Tablet PO SCH (08:16)
--- NOTE | 2018-07-31 16:38 | P.PNPSY ---
Subjective Chief Complaint: "I feel like shit" Remarks: Patient was seen and case discussed with nursing. Patient remains in good behavior. He has not required any EtOH today or yesterday. No outburst, internally stimulated Review of Systems All other systems reviewed negative except as stated in HPI Mental Status Examination Appearance: Appropriate, Disheveled Consciousness: Alert Orientation: Person Motor Activity: Abnormal gait (uses walker) Speech: Unremarkable Language: Adequate, Other (Electively mute today) Fund of Knowledge: Adequate Attention and Concentration: Adequate Memory: Impaired (mild) Mood: Irritable Affect: Blunt Thought Process & Associations: Other ([place]) Thought Content: Preoccupations, Delusional Hallucination Type: None Delusion Type: Bizarre Suicidal Ideation: No Suicidal Plan: No Suicidal Intention: No Homicidal Ideation: No Homicidal Plan: No Homicidal Intention: No Insight: Poor Judgment: Poor Assessment and Plan - Assessment (1) Bipolar disorder current episode depressed Code(s): F31.30 - Bipolar disorder, current episode depressed, mild or moderate severity, unspecified Status: Acute (2) PTSD (post-traumatic stress disorder) Code(s): F43.10 - Post-traumatic stress disorder, unspecified Status: Acute - Plan Plan: Continue current treatment plan Justification for Continued Inpatient Stay: Patient would decompensate in a less restrictive setting
[2018-07-31] MEDS: Lidocaine 5% Patch T-DERMAL SCH (21:10)
[2018-08-01] MEDS: Baclofen 10 MG Tablet PO SCH ×3 (00:27→16:10)
[2018-08-01] MEDS: Levothyroxine 50 MCG Tablet PO SCH (06:32)
[2018-08-01] MEDS: Enoxaparin Inj 40 MG/0.4 ML Syringe SQ SCH (08:11)
[2018-08-01] MEDS: Calcium Carbonate 500 MG Tablet PO SCH ×2 (08:11→20:23)
[2018-08-01] MEDS: Divalproex 500 MG DR Tablet PO SCH ×2 (08:11→20:23)
[2018-08-01] MEDS: Sertraline 100 MG Tablet PO SCH (08:11)
[2018-08-01] MEDS: Gabapentin 100 MG Capsule PO SCH ×3 (08:11→17:18)
[2018-08-01] MEDS: QUEtiapine 25 MG Tablet PO SCH ×2 (08:12→12:53)
[2018-08-01] MEDS: levETIRAcetam 500 MG Tablet PO SCH ×2 (08:12→20:23)
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
[2018-08-01] MEDS: Lidocaine 5% Patch T-DERMAL SCH (20:25)
[2018-08-02] MEDS: Baclofen 10 MG Tablet PO SCH ×3 (00:06→16:00)
[2018-08-02] MEDS: Levothyroxine 50 MCG Tablet PO SCH (06:18)
[2018-08-02] MEDS: levETIRAcetam 500 MG Tablet PO SCH ×2 (08:25→20:08)
[2018-08-02] MEDS: Gabapentin 100 MG Capsule PO SCH ×3 (08:26→17:31)
[2018-08-02] MEDS: Divalproex 500 MG DR Tablet PO SCH ×2 (08:26→20:09)
[2018-08-02] MEDS: Enoxaparin Inj 40 MG/0.4 ML Syringe SQ SCH (08:26)
[2018-08-02] MEDS: Lactobacillus Acidophilus/L. Spores Tablet PO SCH (08:26)
[2018-08-02] MEDS: Sertraline 100 MG Tablet PO SCH (08:27)
[2018-08-02] MEDS: Calcium Carbonate 500 MG Tablet PO SCH ×2 (08:27→20:08)
[2018-08-02] MEDS: QUEtiapine 25 MG Tablet PO SCH ×2 (08:27→12:45)
--- NOTE | 2018-08-02 11:11 | P.PNPSY ---
Subjective Chief Complaint: "I feel like shit" Remarks: 08/02/2018 Patient demonstrated some increased ability to hear when we explored with him the possibility of discharge to an [facility]. 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 There continue to be difficulties with getting okay from veterans financial, but it is expected that discharge from a be affected tomorrow. Patient was reviewed with the staff including social service and nursing staff. The patient remains impulsive, but is eating and sleeping with only an occasional problem with wandering unit at night. This has not been a prominent problem for the last 2 days and a one-to-one sitter was not necessary. Mental Status Examination Appearance: Disheveled Consciousness: Alert Orientation: Person Motor Activity: Abnormal gait (uses walker) Speech: Unremarkable Language: Adequate, Other (Electively mute today) Fund of Knowledge: Adequate Attention and Concentration: Adequate Memory: Impaired (mild) Mood: Good Affect: Anxious Thought Process & Associations: Other ([place]) Thought Content: Preoccupations, Delusional Hallucination Type: None Delusion Type: Bizarre Suicidal Ideation: No Suicidal Plan: No Suicidal Intention: No Homicidal Ideation: No Homicidal Plan: No Homicidal Intention: No Insight: Poor Judgment: Poor Assessment and Plan - Assessment (1) Bipolar disorder current episode depressed Code(s): F31.30 - Bipolar disorder, current episode depressed, mild or moderate severity, unspecified Status: Acute (2) PTSD (post-traumatic stress disorder) Code(s): F43.10 - Post-traumatic stress disorder, unspecified Status: Chronic - Plan Plan: Current plan is to discharge in the morning if the arrangements are satisfactory and financial considerations accepted. Discharge has been delayed but the patient is considered appropriate for discharge to [facility]. Justification for Continued Inpatient Stay: Patient is considered ready for discharge when placement is available.
[2018-08-02] MEDS: Lidocaine 5% Patch T-DERMAL SCH (20:10)
[2018-08-03] MEDS: Baclofen 10 MG Tablet PO SCH ×3 (00:25→17:16)
[2018-08-03] MEDS: Levothyroxine 50 MCG Tablet PO SCH (06:05)
[2018-08-03 06:06] VITALS: RESP 16
[2018-08-03] MEDS: Sertraline 100 MG Tablet PO SCH (09:01)
[2018-08-03] MEDS: Enoxaparin Inj 40 MG/0.4 ML Syringe SQ SCH (09:01)
[2018-08-03] MEDS: Divalproex 500 MG DR Tablet PO SCH ×2 (09:02→20:31)
[2018-08-03] MEDS: Acetaminophen 325 MG Tablet PO PRN (09:02)
[2018-08-03] MEDS: Calcium Carbonate 500 MG Tablet PO SCH ×2 (09:02→20:31)
[2018-08-03] MEDS: Gabapentin 100 MG Capsule PO SCH ×3 (09:02→17:41)
[2018-08-03] MEDS: levETIRAcetam 500 MG Tablet PO SCH ×2 (13:03→20:31)
[2018-08-03] MEDS: QUEtiapine 25 MG Tablet PO SCH ×2 (13:04→17:16)
[2018-08-03] MEDS: Lactobacillus Acidophilus/L. Spores Tablet PO SCH (13:04)
--- NOTE | 2018-08-03 13:23 | P.DSPSY ---
Psychiatry Discharge Summary Inpatient Psychiatric care?: Yes Advance Directives: Unknown Reason for Unknown:: Due to Patient Condition Mental Health Advance Directive: No Health Care Proxy: No - Admission Admission Date: June 04, 2018 15:40 Brief History: Pt is a 62 YOWM with a hx of PTSD, chronic and bipolar disorder and multiple medical problems who was re-admitted to psychiatry service for treatment of depression and PTSD on 06/04/2018 after medical transfer for seizures and hypotension. Psychiatric medications of seroquel 200mg PO 0900, 1300 and QHS, and sertraline 200mg PO Daily were continued during medical floor admission. Pt reports feeling tired and groggy.staff analyst report that pt has been mostly sleeping since transfer. He is irritable and focused on medical problems. Interview is difficult due to pt's lack of desire for cooperation. He is well known to service from previous psychiatric admissions. He is a [place] and still has flashbacks and nightmares about service. Previous SNF closed down and pt is currently homeless. He is agreeable to admission and treatment and has capacity. Tobacco Use In Past 30 Days: No How Often Do You Have a Drink Containing Alcohol: Unable to Obtain Hospital Course: Patient has a 7-month course in the hospital. Disposition was difficult. The patient was difficult throughout his stay. He wandering from room to room and frequently required a sitter. During the course of those 7 months the patient moved from one unit to another depending on his level of compliance with routines. Medication was only a problem when he refused it. He has been compliant for the past few weeks that I have reviewed. At this time the patient remains unable to focus on any questions or responses that are relevant. The aggressive behavior in the wandering from room to room was only 1 of the many problems in managing the patient continent and constantly having problems with his ADLs. - Discharge Discharge Date: 08/03/18 [facility]charge Disposition: [facility] - Discharge Instructions Discharge Diet: Regular Diet Activities You Can Perform: Regular- No Restrictions - Discharge Time > 30 minutes Mental Status Examination Appearance: Disheveled Consciousness: Alert Orientation: Person Motor Activity: Abnormal gait (uses walker) Speech: Unremarkable Language: Adequate, Other (Electively mute today) Fund of Knowledge: Adequate Attention and Concentration: Adequate Memory: Impaired (mild) Mood: Good Affect: Anxious Thought Process & Associations: Other ([place]) Thought Content: Preoccupations, Delusional Hallucination Type: None Delusion Type: Bizarre Suicidal Ideation: No Suicidal Plan: No Suicidal Intention: No Homicidal Ideation: No Homicidal Plan: No Homicidal Intention: No Insight: Poor Judgment: Poor Discharge/Advance Care Plan - Results Vital Signs: Last Vital Signs Temp 97.4 F L 08/02/18 06:00 Pulse 66 08/03/18 06:00 Resp 16 08/03/18 06:00 BP 119/67 08/03/18 06:00 Pulse Ox 94 L 08/03/18 06:00 Lab Results: Laboratory Results TSH 6.970 uIU/mL (0.358-3.740) H 07/22/18 07:06 Valproic Acid 74 mcg/mL (50-100) 07/22/18 07:06 Summary of Procedures: None Imaging: ITS Impressions Chest X-Ray 06/06/18 00:00 CONCLUSION: Minimal basilar atelectasis. Hip X-Ray 06/08/18 00:00 CONCLUSION: Stable plain films of the proximal left femur compared to the prior examination. No acute fracture or joint dislocation. Shoulder X-Ray 06/08/18 00:00 CONCLUSION: Unremarkable exam. Pending Results: None - Medications Number of antipsychotic medications at discharge: 0 - Discharge Care Plan Goals to Promote Your Health: * To prevent worsening of your condition and complications * To maintain your health at the optimal level Directions to Meet Your Goals: Take your medications as prescribed Follow your dietary instruction Follow activity as directed Keep your appointments as scheduled Take your immunizations and boosters as scheduled If your symptoms worsen call your PCP, if no PCP go to Urgent Care Center or Emergency Room For 08/03 questions related to your inpatient stay or results of tests pending at discharge, please contact Dr. Malcolm Walls MD at Smoking is Dangerous to Your Health. Avoid second hand smoking
--- NOTE | 2018-08-03 14:51 | P.TTN ---
- Patient Problems Problems: 1. Discharge planning 2. Medication compliance 3. Knowledge deficit 4. Lack of coping skills - Progress Toward Goals Provider Present: Dr. Greta Sam (Patient no longer needs to remain for stabilization, patient is in need of placement at this time.) Provider Input: 08/02/2018; patient is less anxious and agreeable to placement, and will be dc with 30 day prescription. 07/18/2018: patient mood is extremely unpredictable no imediate med change at this time. 07/13/2018; per doctor no medication changes at this time. 07/11/2018; per doctor no medication adjustment at this time. 07/04/2018; per doctor no required medication changes , patient has highs and lows with unpredictable behabivor, pending placement. 06/29/2018; patient is stabilized on medical meds no current med change required. 06/20/2018; per doctor patient is up and down with mood/behavior, no medication adjustment at this time. 06/15/2018; per doctor patient's is at base line with medication no med changes at this time. 06/08/2018 Patient's pharrmacotherapy is being monitored since being adjusted. patient placement is pending. 06/06/2018; patient's medication are being adjusted, patient was recently transferred to medical and sent back to [facility] to continue care. Nurse(s) Present: RN Nurse Input: 08/02/2018; patient hs been corpative with medications and treatment, no behavior issues at this time. 07/18/2018: nursing staff reports that patient receive ETO 07/17/2018 afternoon. RN states for the most part patient is redirectable, still disorganized. 07/13/18; per RN patient is confused and very disorganized, require redirection due to unpredictable and intrusive behavior. 07/11/2018; per RN patient's has no behavior, however he is very unpredictable. 07/04/2018; per RN patient's behavior is very unpredicable requires redirection and prompting with care, meals, medication and behavior. 06/29/2018; per RN patients behavior is unpredictable, he is eating meals and taking medication, require assistance with his self-care. 12/2017; per RN patient requires prompting with mood/behavior, difficulty following direction due to hearing. 06/15/2018; per RN patient requires coaching and encouragement with treatment, extremely confused and disorganized. 06/08/2018 patient is no taking medication, eating and being more cooperative. He still continues to be delusional. 06/06/2018; patient is taking his medication and eating meals require coaching and prompting with care. Psychiatric Counselors Present: Krish Wang Jr., [facility] (Placement issue pending [facility] Juanita Erazo, [facility] (patient is a placement issues will continue to look for safe discharge options) Psychiatric Therapist Input: 08/02/2018; counselor will fax require paper work to Tyrell Maxwell to ensure dc is in place, as well as contact [facility] and [facility]. 07/18: per Blanquita Meza, counselor supervisor meter shop, [facility] staff will be coming to assess patient 07/22/2018 for appropriate placement. 07/13/2018; patient dc plan is with a [facility] or alf setting; he continues to have [facility] members coming to complete a placement assessment. 07/11/2018; patient is being assess for [facility] placement through [facility]. 07/04/2018; dc life care planner working on placement with [facility]. 06/29/2018; counselor will work with DC life care planner with obtaining appropriate Skill nursing. 06/20/2018; DC life care planner continue to explore [facility]P options with the [facility]. 06/15/2018; counselor continues to work with [facility] with placement. 06/08/2018 continuing to work on proper placement for sucessful discharge when patient is stabilized. 06/06/2018; patient's dc planning will be with an appropriate halfway or [facility], when accepted. [facility] Group Spec/RT/OT/DYER Present: CASPER Pedraza (Patient does not attend groups at this time.), MANISHA Mobley, Lionel Benson, OT, MANISHA Kirkpatrick (Patient does not attend groups at this time.) Group Spec/RT/OT/DYER Input: 08/02/2018; per OT patient is unable to tolerate groups and activities. 07/18/2018;per OT patient is unable to tolerate groups, and is very unpredictable. 07/13/2018; per OT patient is too inappropriate for groups. 07/04/2018; Per OT/RT patient is not group appropriate. 06/29/2018; Per OT patient is not appropriate to participate with activities. 06/20/2018; per OT/RT patient lacks insight with group participation. 06/15/2018 patient lacks motivation with limited insight, unable to attend most groups. 06/06/2018 ; patient lacks current ability to participate with activities, however he will be encouarged to do so when able. Occupational Therapist Input: Patient is not able to participate in activities - Documentation Teaching Recipient: Patient
[2018-08-03] MEDS: Lidocaine 5% Patch T-DERMAL SCH (20:31)
[2018-08-04] MEDS: Baclofen 10 MG Tablet PO SCH ×2 (00:45→08:31)
[2018-08-04 05:50] VITALS: BP 116/71; PULSE 72; TEMP 98.1; O2SAT 98
[2018-08-04] MEDS: Levothyroxine 50 MCG Tablet PO SCH (06:18)
[2018-08-04] MEDS: levETIRAcetam 500 MG Tablet PO SCH (08:31)
[2018-08-04] MEDS: Divalproex 500 MG DR Tablet PO SCH (08:31)
[2018-08-04] MEDS: Enoxaparin Inj 40 MG/0.4 ML Syringe SQ SCH (08:32)
[2018-08-04] MEDS: Gabapentin 100 MG Capsule PO SCH (08:32)
[2018-08-04] MEDS: Calcium Carbonate 500 MG Tablet PO SCH (08:32)
[2018-08-04] MEDS: Lactobacillus Acidophilus/L. Spores Tablet PO SCH (08:32)
[2018-08-04] MEDS: Sertraline 100 MG Tablet PO SCH (08:32)
[2018-08-04] MEDS: QUEtiapine 25 MG Tablet PO SCH (08:33)
== END 2018-08-04 09:45 ==
LOC: H4EA 15:40 → HCPC 06-13 08:58 → H4EA 06-13 09:01
PROVIDERS: ADMIT Psychiatry & Neurology Child & Adolescent Psychiatry; ATTEND Psychiatry & Neurology Child & Adolescent Psychiatry